=== PATIENT | male | born 1965 | race Caucasian/White ===

== ENCOUNTER 2017-05-21 15:21 | Inpatient (IN) | payer OTHER ==
[~2017-05-21] VITALS: Ht 172.7 cm; Wt 197.2 kg
[~2017-05-21 15:21] MED LIST: CRESTOR40 MG PO; GLUCOPHAGE500 MG PO; HUMALOG100 UNITS/ SUB-Q; HYDROCODON-ACE1 EAC8 PO; HYZAAR 100-251 EACH PO; LANTUS100 UNITS/ SUB-Q; METOPROLOL SUC100 MG PO; NORCO 5-325 TA1 EACH PO; PROZAC20 MG PO; SYNTHROID200 MCG PO; VITAMIN D50000 UNI1 PO
--- NOTE | 2017-05-21 18:10 | NUR ---
PT ARRIVED TO MED/SURG FLOOR ALERT AND ORIENTED. PT AMBULATE FROM [facility] BED. FAMILY WITH PT
--- NOTE | 2017-05-21 18:50 | NUR ---
NEW ADMIT FROM ED. LASHAUN'S PATIENT. LARGE ABSCESS IN LEFT GROIN AREA. LOTS OF REDNESS. HAVEN'T OUTLINED YET. SBA/1PA TO BATHROOM. OBESE. SURGERY IN AM. NPO AT MIDNIGHT. FSBS 594 TONIGHT. ROOM AIR. LOW GRADE TEMP. 20G RIGHT CHEST IV. DIFFICULT POKE. FSBS ACHS.
--- NOTE | 2017-05-21 21:30 | NUR ---
CALL DR. CYR TO NOTIFY CURRENT CBG 528. PER DR. CYR START SLIDING SCALE ORDERS NOW.
--- NOTE | 2017-05-21 22:45 | NUR ---
BARIATRIC BED DELEVERED TO FLOOR. PT UP TO THE CHAIR WITH STANDBY ASSIST. NEW BED IN PLACE AND TUTORIAL GIVEN TO RN AND PLUMBING ASSEMBLER. PT CPAP SET UP PER PT REQUEST. PT REQUESTS TO REMAIN UP IN CHAIR, ADVISED TO CALL WHEN READY TO GO TO BED. CALL WITHIN REACH.
--- NOTE | 2017-05-22 00:23 | NUR ---
IN TO REASSESS PT'S PAIN, PT SLEEPING, CPAP IN PLACE, IVF INFUSING, CALL LIGHT WITHIN REACH.
--- NOTE | 2017-05-22 00:41 | NUR ---
BED BATH DONE. CHANGED LINEN, BARIATRIC BED.
--- NOTE | 2017-05-22 02:00 | NUR ---
IN TO START IV ABX, VITALS OBTAINED. PT STATES HIS PAIN HAS RESOLVED AND HE HAS BEEN RESTING WELL. NO FURTHER NEEDS AT THIS TIME. CPAP IN USE, CALL LIGHT WITHIN REACH.
--- NOTE | 2017-05-22 05:07 | NUR ---
PT RESTING COMFORTABLE THROUGHOUT THE SHIFT, IV FLUID AND ABX INFUSING. BED BATH GIVEN AND NYSTATIN APPLIED. PT NPO AT 0300 IN PREPERATION FOR SURGERY. AFIBRILE. PT HOME CPAP IN PLACE. ELEVATED CBG'S, SLIDING SCALE INITIATED PER DR. CYR. PT UP WITH STANDBY ASSIST.
--- NOTE | 2017-05-22 06:44 | NUR ---
IN TO OBTAIN FOR I&D, PT STATES HE DOES NOT RECALL REVIEWING THE CONSENT FORM WITH DR. WILKS. PT C/O OF DOLAN IN THE L SIDE OF HIS HEAD. PER DR. WILKS PT IS OKAY TO HAVE APAP WITH A SIP OF H2O. DR. WILKS IN TO REVIEW CONSENT FORM WITH PT.
--- NOTE | 2017-05-22 07:25 | NUR ---
REPORT RECEIVED AT BEDSIDE FROM RACHANA/FELA RN. PT AWAKE AND ALERT SITTING UP IN BED. PT REPORTS NOT FEELING WELL, "FEVERISH". AFEBRILE OVERNIGHT. PT NPO FOR PROCEDURE TODAY.
--- NOTE | 2017-05-22 07:50 | EKG ---
[facility] [address] [facility] [place] [address] Signed Normal sinus rhythm Left axis deviation Cannot rule out Anterior infarct , age undetermined Abnormal ECG No previous ECGs available Confirmed by HAM CYR MD ([id number]) on 05/22/2017 7:50:38 AM Electronically Signed By: HAM CYR MD 05/22/17 0750 PATIENT NAME: AMANDALUCY Electrocardiogram DATE OF : 63 PHYSICIAN: HAM CYR MD REPORT #: [id number] REPORT IS CONFIDENTIAL AND NOT TO BE RELEASED WITHOUT AUTHORIZATION
--- NOTE | 2017-05-22 09:20 | NUR ---
HIBBA CLEANS DONE. RAHUL CARE DONE. PATIENT BRUSHED TEETH AND WASHED FACE AND HANDS. PATIENT SITTING UP IN BED WITH BY HIS SIDE. PATIENT HAS NO OTHER NEEDS AT THIS TIME.
[2017-05-22] MEDS ORDERED: VITAMIN B-121000 MC2 SL (09:28)
--- NOTE | 2017-05-22 09:29 | NUR ---
MED REC COMPLETE--PER PATIENT
--- NOTE | 2017-05-22 09:43 | NUR ---
PATIENT UP TO BATHROOM. LINENS CHANGED. PATIENT BACK IN BED. NO NEEDS AT THIS TIME.
--- NOTE | 2017-05-22 10:48 | NUR ---
PT OFF FLOOR FOR SURGERY AT 1040
--- NOTE | 2017-05-22 12:07 | NUR ---
[facility], O2 DECREASED TO 10L.
--- NOTE | 2017-05-22 12:10 | NUR ---
RIGHT UPPER CHEST IV CDI ON ARRIVAL TO PACU.
--- NOTE | 2017-05-22 12:31 | NUR ---
IV REMAINS CDI.
--- NOTE | 2017-05-22 12:53 | NUR ---
PT BACK TO ROOM 113 WITH CELIA RN AT 1245. AT BEDSIDE. VSS. PAIN REPORTED BY PT UNDER PANNUS. WILL LOOK FOR NEW MED ORDERS FROM PAPER CHART.
--- NOTE | 2017-05-22 15:19 | NUR ---
CHANGED WOUND DRESSING PER WOUND CARE INSTRUCTIONS IN CHART. PT TOLERATED WELL.
--- NOTE | 2017-05-22 17:47 | NUR ---
PATIENT SITTIN UP IN BED WATCHIN TV WITH CALL BUTTON IN REACH. COMPLAINS ABOUT HIS RASH SEEMS TO BE GROWING. TRAIN CONDUCTOR LET RN KNOW.
--- NOTE | 2017-05-22 20:00 | NUR ---
IN TO SEE PT, PT IN BED WATCHING TV. PT RATES HIS PAIN A 5-7/10 OF PAIN WITH APAP, FRESH WATER GIVEN, NO FURTHER NEEDS AT THIS TIME. CALL LIGHT IN PLACE.
--- NOTE | 2017-05-22 20:15 | NUR ---
CALL TO DR. WILKS FOR CONCERN OF PAIN. PER DR. WILKS OKAY TO START PERCOCET 5/325 MG, 1-2 TABS PO EVERY 4-6 HOURS FOR PAIN.
--- NOTE | 2017-05-22 22:15 | NUR ---
IN ROOM FOR DRESSING CHANGE, DRESSING AND PACKING REMOVED. NO DISCHARGE PRESENT OR ODOR PRESENT, WOUND BED INTACT. WOUND PACKED WITH CURLEX SOAK IN DAKINS SOLUTION. WOUND COVERED WITH DRSG AND LIGHT TAPE. PT TOLERATED WELL, NO PAIN, PT ABLE TO ASSIST WITH DRSG CHANGE. NO FURTHER NEEDS AT THIS TIME, CALL LIGHT WITHIN REACH.
--- NOTE | 2017-05-22 22:47 | NUR ---
IN TO CHECK ON PT, PT RESTING WATCHING TV, CPAP ON, NO FURTHER NEEDS AT THIS TIME. CALL LIGHT WITHIN REACH.
--- NOTE | 2017-05-23 00:38 | NUR ---
IN TO CHECK ON PT, PT APPEARS TO BE SLEEPING, CPAP IN PLACE, IV INFUSING. CALL LIGHT WITHIN REACH.
--- NOTE | 2017-05-23 02:09 | NUR ---
IN TO SEE PT, IV ABX STARTED, PT RATES HIS PAIN A 4/10 AND REQUEST PAIN MEDICATION. PERCOCET GIVEN. FRESH WATER GIVE. CPAP IN PLACE. NO FURTHER NEEDS AT THIS TIME. CALL LIGHT WITHIN REACH.
--- NOTE | 2017-05-23 02:40 | NUR ---
DR. CYR NOTIFIED OF UO OF 300 OVER THE PAST [address] CYR INCREASE IVF TO 125 MLS PER HR. IN TO INCREASE IVF, PT HAS CPAP IN PLACE. PT RESTING. CALL LIGHT WITHIN REACH.
--- NOTE | 2017-05-23 04:52 | NUR ---
PT S/P I&D L MONS PUBIS ABCESS. PT STARTED ON PERCOCET 5/325 MG FOR INCREASED PAIN. PAIN RESOLVES WELL WITH ORAL MEDICATION. DSG CHANGE DONE, WOUND WNL. PT WITH DECREASED UO, IVF INCREASED TO 125 MLS. IV ABX ADMINISTERED. PT UP TO BATHRROM WITH STANDBY ASSIST.AM LABS TO BE DRAWN.
--- NOTE | 2017-05-23 07:45 | NUR ---
patient sitting up in bed finished breakfast. washing face and hands. patient will get up to shower,shave, and brush teeth once his gets here. no other needs at this time. call button in reach.
--- NOTE | 2017-05-23 09:10 | NUR ---
PATIENT UP TO SHOWER. LINENES CHANGED. ASSISTED WITH PERICARE. PATIENT SITTING UP IN BED WATCHING TV. FRESH ICE WATER GIVEN. ORDERED LUNCH. NO OTHER NEEDS AT THIS TIME. CALL BUTTON IN REACH.
--- NOTE | 2017-05-23 10:00 | NUR ---
PATIENT UP TO SHOWER, NEEDING 1-2 PERSON ASSIST, WITH WASHING PANNUS AND OTHER LOWER BODY PARTS. RINSED WOUND AREA WITH SOAP AND WATER. PATIENT STATES " IT'S NOT RED AND DOESN'T BOTHER ME MUCH" REDNESS HAS REGRESSED, AND IS WARM TO TOUCH. PROVIDED PATIENT WITH EDUCATION ON WOUND CARE. PACKING FROM WOUND APPEARED SEROSANGUINOUS, NO FOUL ODORS. WOUND BASE APPEARED TO HAVE SOME ESCHAR, AND GRANULATION TISSUE.
--- NOTE | 2017-05-23 11:07 | CONS ---
[facility] [address] [place], [place] [address] Signed DATE OF SERVIVE: 05/21/2017 REFERRING PHYSICIAN: Santana Brody MD CHIEF COMPLAINT: Draining abscess, left mons pubis. HISTORY OF PRESENT ILLNESS: Lucy is a 52-year-old, obese, diabetic gentleman who I have met before. He went through a gastric sleeve procedure with Dr. Jesus Perez at [facility] about 4 years ago. He has lost over 100 pounds. He is hoping to be converted over to a Marina-en-Y gastric bypass. I helped him with a colonoscopy in 2016 . He says in the last 4 or 5 days, he has noticed odor and discharge from underneath the left side of his pannus. He went to his primary care provider earlier today. Dr. Bella called me in the office earlier in the afternoon. We asked that Lucy come over to the emergency room to be evaluated initially for labs, IV fluids, and so forth. I have finished the clinic, so I am now over in the emergency room to see Lucy. He seems to be doing well and he is hemodynamically stable, and he is just now getting his IV. ALLERGIES: Codeine. MEDICATIONS: Crestor 40 mg p.o. daily. Fluoxetine 20 mg p.o. daily. Humalog 3 times a day, generally 14 units before meals. Hyzaar 100/25 1 tablet p.o. daily. Lantus 100 units per milliliter once a day, usually 70 units at bedtime. Metformin ER 500 mg 2 tablets p.o. daily. Metoprolol 100 mg p.o. b.i.d. Synthroid 200 mcg p.o. daily. Vitamin D 50,000 units p.o. once a week. PAST MEDICAL HISTORY: Hypertension, obstructive sleep apnea with CPAP mask, nephrolithiasis, hyperlipidemia, vitamin D deficiency, morbid obesity, hypothyroidism, right lobe thyroid neoplasm/papillary adenocarcinoma, type 2 diabetes, arthritis, left rotator cuff tendon tear, depression and anxiety. PROCEDURAL HISTORY: He had his redundant mons pubis removed in [address] [facility]. He had a gastric sleeve performed in [address] [facility] by Dr. Jesus Perez. He had a small bowel resection during an attempted gastric bypass in [address] Armando Braden in [place], [place]. He had a total thyroidectomy [place] [address] Lechuga. He had a colonoscopy in [address] Wilks. Electronically Signed By: CELSO WILKS MD 05/23/17 1107 PATIENT NAME: LUCY PATEL CONSULTATION DATE OF : 63 PHYSICIAN: CELSO WILKS MD REPORT #: [id number] REPORT IS CONFIDENTIAL AND NOT TO BE RELEASED WITHOUT AUTHORIZATION [address] [address] Signed SOCIAL HISTORY: He has a couple of cups of coffee a day. He quit smoking over 30 years ago. He does not chew tobacco. He does not use alcohol. He does not use drugs. 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 He said he has a contract with the [facility]. He is and has 5 children of his own and 3 adopted children. PROVIDERS: His primary care provider is Dr. Moe Bella. Dr. Jesus Perez, his gastric surgeon at [facility] has since retired. He went to see a casino games dealer at [facility] at age 48 and said everything was fine. FAMILY HISTORY: Dr. Perez described he did very well with his anesthesia for his gastric sleeve procedure. His paternal grandfather had heart disease and maternal grandfather had colon cancer in his 50s. REVIEW OF SYSTEMS: He had 10 systems reviewed, and he said he has done great since I have seen him last week. He is wanting to go for his gastric bypass surgery to help lose additional weight. Although he had the mons pubis surgically excised, he still has an enormous pannus that comes snf down his thighs. PHYSICAL EXAMINATION: VITAL SIGNS: His blood pressure is 139/75, heart rate 77, respiratory rate 18, temperature 99.3. He is 5 feet 8 inches at 197 kg. GENERAL: Lucy is a 52-year-old gentleman lying supine in his ER bed. He is always pleasant and cooperative. He is a good historian. LUNGS: Clear to auscultation. HEART: Regular in rhythm. ABDOMEN: Obese. He has a large pannus with erythematous changes across the entire pannus consistent with fungal infection. With help of the nurse, we can see that on the left mons pubis he has a punctate area draining pus with surrounding induration probably 7-10 cm. LABS: Pending EKG showed normal sinus rhythm. Radiographic studies: None. Electronically Signed By: CELSO WILKS MD 05/23/17 1107 PATIENT NAME: LUCY PATEL CONSULTATION DATE OF : 63 PHYSICIAN: CELSO WILKS MD REPORT #: [id number] REPORT IS CONFIDENTIAL AND NOT TO BE RELEASED WITHOUT AUTHORIZATION [address] [address] Signed ASSESSMENT AND PLAN: Lucy is a 52-year-old, morbidly obese, diabetic gentleman who clearly has fungal infection all the way across underneath his pannus, but he has developed a draining pus over the left mons pubis area. I explained to Lucy we are going to need to admit him to the hospital at least for a few days to get this under control, and we will use IV, start to get him hydrated before we take him to surgery for general anesthesia, so we can incise and drain this area. Of course, we will take our cultures and we will adjust our antibiotics accordingly. In the meantime, we will have our Internal Medicine Service see him as well to help with his medical issues, particularly his diabetes. He has expressed understanding and agrees with the above plan. MD TIM Huddleston/Modl /[id number] cc: Patient Chart Dr. Celso Peace MD Electronically Signed By: CELSO WILKS MD 05/23/17 1107 PATIENT NAME: LUCY PATEL CONSULTATION DATE OF : 63 PHYSICIAN: CELSO WILKS MD REPORT #: [id number] REPORT IS CONFIDENTIAL AND NOT TO BE RELEASED WITHOUT AUTHORIZATION
--- NOTE | 2017-05-23 11:54 | NUR ---
DR. WILKS ROUNDED ON PATIENT. DISCHARGE ORDERS WRITTEN.
[2017-05-23] MEDS ORDERED: CLEOCIN HCL150 MG PO (12:21)
[2017-05-23] MEDS ORDERED: NYSTATIN1 EAC9 MISC (12:22)
[2017-05-23] MEDS ORDERED: PERCOCET 5-3251 EACH PO (12:25)
--- NOTE | 2017-05-23 14:36 | NUR ---
PATIENT PROVIDED WITH DISCHARGE INSTRUCTIONS, ANSWERED QUESTIONS AND PROVIDED INSTRUCTION. SUPPLIES PROVIDED FOR DRESSING CHANGES UNTIL FOLLOW UP. PATIENT HOME WITH NYSTATIN GEL AND POWDER AND REMAINING DANKINS SOLUTION. IN ROOM DISCUSSED WOUND CARE WITH HER, AND PROVIDED WOUND CARE INSTRUCTIONS. VS STABLE. DRESSING TO LOWER PANNUS C/D/I.
--- NOTE | 2017-06-01 12:08 | DS ---
[facility] [address] [facility] [place], [place] [address] Signed ADMIT DATE: 05/21/2017 DISCHARGE DATE: 05/23/2017 FINAL DIAGNOSES: Left mons pubis, cutaneous abscess. Tenia corpus involving the pannus, both groins, mons pubis, and inner thighs. Uncontrolled diabetes. Uncontrolled hypothyroidism. PROCEDURE: Incision and drainage, left mons pubis abscess. HISTORY OF PRESENT ILLNESS: Gerard is a 52-year-old, morbidly obese gentleman, who has undergone a previous gastric sleeve resection. He has actually lost 100 pounds. He describes huge lipoma involvin g the mons pubis, which was removed at the time of his gastric sleeve surgery. He said that actually helped him quite a bit as well. Nevertheless, he still has a very large abdominal pannus that comes down senior living to his knees. He suffers with significant tinea corporis across the pannus underneath mons pubis and between the thighs. He then developed a foul-smelling discharge from underneath the pannus on the left side. He went to his primary care provider for evaluation. I had been called as a general neeta geon on-call that day. We had him go straight to the emergency room. HOSPITAL COURSE: I met Gerard in the emergency room, and he had a small abscess of the left mons pubis. He also has significant tinea corpus. Also, we found that his hemoglobin A1c is elevat ed at 14.8 and his TSH is also quite high at 24. He also has some renal dysfunction. He is a little anemic as well. His potassium ran low. We have been correcting that as well. We hydrated him overnight and had our Internal Medicine Service see him to get his blood sugars under better control. The following day, we took him down to the operating room for incision and drainage of the abscess of the left mons pubis. Fortunately, it was small, was just underneath the skin, maybe 1 cm deep and about a centimet er or two in length. We using elliptical incisions so that wound remained open and healing by secondary intention. By the following morning, he looked and felt much better. His white count came down from 15 to 7.7, and he is eating, tolerating his diet qu ite nicely. Of course, wound cultures are still pending. We had given clindamycin IV along with Bactrim p.o. At this point, he is doing much better. We are going to plan on discharging him home today. DISCHARGE PLANS AND MEDICATIONS: Electronically Signed By: CELSO VILLARREAL MD 06/01/17 1208 PATIENT NAME: GERARD PATEL ALYSA DISCHARGE SUMMARY DATE OF : 63 PHYSICIAN: CELSO VILLARREAL MD REPORT #: [id number] REPORT IS CONFIDENTIAL AND NOT TO BE RELEASED WITHOUT AUTHORIZATION [address] [address] Signed Gerard, we discharged ho me with clindamycin 450 mg p.o. q.i.d. for 7 days. He is written for Nystatin powder 1000 units/g to be applied to his affected skin b.i.d. We will dispense 60 g with 2 refills. We will also give him Percocet 5/325 1 to 2 tablets p.o. q.4 to 6 hours p.r.n . pain. We will dispense 60 tablets with no refills. We had tried simple Tylenol here in the hospital. This was not enough to control his pain. In addition, he will resume his chronic medications at home. I will see him back in my office in about 7 to 10 d a ys for followup. In the meantime, he needs to follow up with his primary care provider in the next 1 to 3 weeks for better control of his medical issues particularly diabetes and hypothyroidism. In the meantime, we will discontinue the packing in the woun d and we will simply have him wash with soap and water directly into the wound and underneath the pannus twice a day. He can apply the nystatin powder across the pannus underneath the pannus over the mons pubis and between the legs twice a day and then use a pillow case or towel underneath the pannus right across his wound on the mons pubis as well. That wound will then heal by secondary intention. I have reviewed this with Gerard in detail. He has expressed understanding and agrees above plan. MD TIM Huddleston/Modl /[id number] cc: Dr. Moe Villarreal MD Electronically Signed By: CELSO VILLARREAL MD 06/01/17 1208 PATIENT NAME: GERARD PATEL DISCHARGE SUMMARY DATE OF : 63 PHYSICIAN: CELSO VILLARREAL MD REPORT #: [id number] REPORT IS CONFIDENTIAL AND NOT TO BE RELEASED WITHOUT AUTHORIZATION
--- NOTE | 2017-06-01 12:08 | OR ---
[facility] [address] [place], [place] [address] Signed DATE OF SERVICE: 05/22/2017 PREOPERATIVE DIAGNOSES: Left mons pubis abscess. Morbid obesity. POSTOPERATIVE DIAGNOSES: Left mons pubis abscess. Morbid obesity. PROCEDURE PERFORMED: Incision and drainage of left mons pubis abscess. Wound cultures. ESTIMATED BLOOD LOSS: Minimal. INDICATIONS: Gerard is a 52-year-old gentleman, who is morbidly obese. He has actually undergone a gastric sleeve procedure and has lost about 100 pounds. He was hoping to get converted over to a gastric Marina-en-Y bypass to help lose some additional weight and then undergo a panniculectomy. In the mean time, he had something removed from his mons pubis and there is quite a bit of scar in the right side of that area. More recently, he had drainage from his left mons pubis over 3 to 4 days. He ended up going t o his primary care provider. Given his comorbidities, we asked that he go to the emergency room to be evaluated. I had actually met up with Gerard yesterday in the emergency room. His blood work was drawn and IV was started along with his antibiotics. We a d mitted him to the floor with the help of our Internal Medicine Service. He has been hydrated overnight and our plan was taken to surgery today for incision and drainage. I met with Gerard last night in the ER as well as this morning. We reviewed the idea o f an incision and drainage procedure. The skin will be left open with some packing. He will be in the hospital at least a day or 2 until we feel we have this under better control. In the meantime, he also has fungal infection over his entire pannus and so w e have added some nystatin ointment as well. Gerard understands there is risk of surgery, including but not limited to bleeding, infection, scarring, change in contour of the skin as well as recurrent abscesses in the same or other locations. He is also at high risk from his morbid obesity and diabetes. He has expressed understanding and wishes to proceed. DESCRIPTION OF PROCEDURE: Gerard was taken into the operating room and placed in the supine position under a general LMA anesthesia. He was already on preop erative antibiotics along with subcutaneous heparin. SCDs were utilized. Appropriate padding and monitoring were Electronically Signed By: CELSO WILKS MD 06/01/17 1208 PATIENT NAME: GERARD PATEL OPERATIVE REPORT DATE OF : 63 PHYSICIAN: CELSO WILKS MD REPORT #: [id number] REPORT IS CONFIDENTIAL AND NOT TO BE RELEASED WITHOUT AUTHORIZATION [facility] [address] [place], [place] [address] Signed placed. He was then prepped and draped in the usual sterile fashion. We could easily see the abscess on the left mons pubis with pus coming ou t through the skin. A transverse elliptical incision was made around that area about 2.5 to 3 cm in length. Underneath, we took our cultures. We evacuated the pus. We found that fortunately his abscess was not too deep, maybe a cm deep, and it traveled cep h alad maybe a cm or 2 at most. We cleaned out all the granulation tissue and necrotic debris with the help of our cautery. Local anesthetic was then copiously injected in and around the wound. The wound was packed with Dakin's soaked gauze and covered with a dry ABD. Gerard was then moved over to his hospital bed. Wean from his anesthesia, extubated in the OR, and taken to recovery room in stable condition. MD TIM Huddleston/Modl /[id number] cc: MD Dr. Poncho Huddleston Electronically Signed By: CELSO WILKS MD 06/01/17 1208 PATIENT NAME: GERARD PATEL OPERATIVE REPORT DATE OF : 63 PHYSICIAN: CELSO WILKS MD REPORT #: [id number] REPORT IS CONFIDENTIAL AND NOT TO BE RELEASED WITHOUT AUTHORIZATION
== END 2017-05-23 14:05 | disposition home or self-care (01) | DRG 581 ==
LOC: ED 15:21 → MS 17:58
PROVIDERS: ADMIT Colon & Rectal Surgery
PROC: 0J9C0ZZ Drainage of Pelvic Region Subcutaneous Tissue and Fascia, Open Approach (ICD-10-PCS; principal; 2017-05-21)
DX: L02.211 Cutaneous abscess of abdominal wall (principal); E11.628 Type 2 diabetes mellitus with other skin complications; Z79.4 Long term (current) use of insulin; I10 Essential (primary) hypertension; E78.5 Hyperlipidemia, unspecified; Z98.84 Bariatric surgery status; G47.33 Obstructive sleep apnea (adult) (pediatric); E11.65 Type 2 diabetes mellitus with hyperglycemia; F41.8 Other specified anxiety disorders; B37.9 Candidiasis, unspecified; M19.90 Unspecified osteoarthritis, unspecified site; E55.9 Vitamin D deficiency, unspecified; E66.01 Morbid (severe) obesity due to excess calories
CPT/HCPCS: 00400; 36415; 80048; 80053; 83036; 83735; 84100; 84443; 85025; 87070; 87075; 87077; 87186; 87205; 93005; 93010; 99285; J0330; J1644; J1885; J2250; J2405; J2704; J2765; J3010; J3480; J3490; J7060; J7120

== ENCOUNTER 2017-09-12 07:40 | Day surgery (SDC) | payer OTHER ==
[~2017-09-12] VITALS: Ht 172.7 cm; Wt 197.8 kg
[~2017-09-12 07:40] MED LIST changes: +CLEOCIN HCL150 MG PO; +NYSTATIN1 EAC9 MISC; +PERCOCET 5-3251 EACH PO; +VITAMIN B-121000 MC2 SL
== END 2017-09-12 10:12 | disposition home or self-care (01) ==
LOC: OPS 07:40 → DS 07:40 → OPS 10:12
PROC: 08RJ3JZ Replacement of Right Lens with Synthetic Substitute, Percutaneous Approach (ICD-10-PCS; principal; 2017-09-12)
DX: H25.11 Age-related nuclear cataract, right eye (principal); I10 Essential (primary) hypertension; E11.9 Type 2 diabetes mellitus without complications; E78.00 Pure hypercholesterolemia, unspecified; M10.9 Gout, unspecified; Z98.890 Other specified postprocedural states; Z79.899 Other long term (current) drug therapy; Z88.5 Allergy status to narcotic agent
CPT/HCPCS: 00140; J2250

== ENCOUNTER 2018-03-06 12:35 | Emergency (ER) | payer OTHER ==
[~2018-03-06] VITALS: Ht 172.7 cm; Wt 199.6 kg
--- OUTSIDE RECORDS SUMMARY | ~2018-03-06 | XMS | Clinical Summary ---
Demographics + + + | Address | [address] | | | [place] [address] | + + + | Home Phone | | + + + | Preferred Language | Unknown | + + + | Marital Status | | + + + | Hindu Affiliation | CHR | + + + [...] | + + + + + | CHRISTINE PATEL | ECON | [address] | | | | | [place], [place] | | | | | [address] | | + + + + + Care Team Providers + +------+ + | Care Radio Engineering Teacher Name | Role | Phone | + +------+ + | Moe Bella MD | PP | | + +------+ + Source Comments SONJA is fully live on both EpicCare Ambulatory and EpicCare InPatient.[facility] Allergies + + + + + + | Active Allergy | Reactions | Severity | Noted | Comments | | | | | Date | | + + + + + + | Codeine | Rash | High | 04/24/20 | Rash all over arms | | | | | 12 | | + + + + + + Current Medications + + + +---------+------+------+-------+ | Prescription | Sig. | Disp. | Refills | Star | End | Statu | | | | | | t | Date | s | | | | | | Date | | | + + + +---------+------+------+-------+ | metoprolol | Take 100 mg by mouth | | | | | Activ | | tartrate 100 mg Oral | two times daily. | | | | | e | | Tablet | | | | | | | + + + +---------+------+------+-------+ | | Take by mouth. | | | | | Activ | | LOSARTAN/HYDROCHLORO | | | | | | e | | THIAZIDE (HYZAAR | | | | | | | | ORAL) | | | | | | | + + + +---------+------+------+-------+ | FLUoxetine | Take 20 mg by mouth | | | | | Activ | | (PROZAC) 20 mg Oral | two times daily. | | | | | e | | Capsule | | | | | | | + + + +---------+------+------+-------+ | cloNIDine 0.1 mg | Take 0.1 mg by mouth | | | | | Activ | | Oral Tablet | two times daily. | | | | | e | + + + +---------+------+------+-------+ | Aspirin 81 mg Oral | Take 81 mg by mouth | | | | | Activ | | Tablet [...] | | 13 | | | | Cholelithiasis | weeks after surgery. | | | | | | | Prevention | Indications: | | | | | [...] | | | | | | | Hypocalcemia | | | | | [...] cyanocobalamin | Inject 1,000 mcg | | | | | Activ | | 1,000 mcg/mL | into the muscle (IM) | | | | | e | | Injection | every thirty days. | | | | | | | SolutionIndications: | Indications: | | | | | | | Prevention of | Prevention of | | | | | | | Vitamin B12 | Vitamin B12 | | | | | | | Deficiency | Deficiency | | | | | [...] | 0/20 | | e | | Vitamin Deficiency | Indications: VITAMIN | | | 13 [...] Take 300 mg by mouth | | | 12/06 | | Activ | | oral capsule | three times daily. | | | 11/24 | | e | | | | | | 17 | | | + + + +---------+------+------+-------+ | nystatin 100,000 | Apply to affected | 56.7 g | 3 | 01/03 | | Activ | | unit/gram topical | area two times | | | 0 | | e | | powderIndications: | [...] | + + + | Morbid obesity (HCC) | 01/30/2017 | + + + | [...] | + + + | Thyroid cancer (HCC) | 08/21/2012 | + + + + + | Overview: Stage1 papillary thyroid cancer. | | Thyroglobulin antibodies | + + + + + | Morbid obesity (HCC) | 06/18/2012 | + + + | Depression | 06/18/2012 | + + + | BMI 60.0-69.9, adult ([facility]) | 06/18/2012 | + + + | Nephrolithiasis | 06/18/2012 | + + + | DM (diabetes mellitus) ([facility]) | 06/18/2012 | + + + | Hypertension | 06/18/2012 | + + + | Hyperlipidemia | 06/18/2012 | + + + | Panniculitis | 06/18/2012 | + + + | Edema | 06/18/2012 | + + + | Sleep apnea | | + + + + + | Overview: on CPAP | + + Family History + + +------+ + | [...] + +---------+ + | Alcohol Use | Drinks/We | oz/Week | Comments | | | ek | | | + + +---------+ + | Yes | 0 | 0.0 | very rare | | | Standard | | | | | drinks or | | | | | | | | | | equivalen | | | | | t | | | + + +---------+ + + + + | Sex Assigned at | Date Recorded | | | | + + + | Not on file | | + + + Last Filed Vital Signs + + + + | Vital Sign | Reading | Time Taken | + + + + | Blood Pressure | 157/91 | 01/30/2017 1:15 PM PDT | + + + + | Pulse | 114 | 01/30/2017 1:15 PM PDT | + + + + | Temperature | 37.3 C (99.2 F) | 01/30/2017 1:15 PM PDT | + + + + | Respiratory Rate | 16 | 01/30/2017 1:15 PM PDT | + + + + | Oxygen Saturation | 95% | 01/30/2017 1:15 PM PDT | + + + + | Inhaled Oxygen | - | - | | Concentration | | | + + + + | Weight | 197.3 kg (435 lb) | 01/30/2017 1:15 PM PDT | + + + + | Height | 172.7 cm (5' 8") | 01/30/2017 1:15 PM PDT | + + + + | Body Mass Index | 66.14 | 01/30/2017 1:15 PM PDT | + + + + Plan of Treatment + + + + + | Health Maintenance | Due Date | Last Done | Comments | + + + + + | INFLUENZA VACCINE | | | | | (FLU SHOT) | 8 | | | + + + + + Results Not on filefrom Last 3 Months
--- OUTSIDE RECORDS SUMMARY | ~2018-03-06 | XMS | Clinical Summary ---
Demographics + + + | Address | [address] | | | [place] [address] | + + + | Home Phone | | + + + | Preferred Language | Unknown | + + + | Marital Status | | + + + | Presybeterian Affiliation | 1013 | + + + | Race | Unknown | + + + | Ethnic Group | Unknown | + + + Author + + + | Author | [facility] | | | and [place] | + + + | Organization | [facility] | | | and [place] | + + + | Address | Unknown | + + + | Phone | Unavailable | + + + Support + + + + + | Name | Relationship | Address | Phone | + + + + + | Milady Burns | ECON | [address] | | | | | [place], [place] | | | | | [address] | | + + + + + Care Team Providers + +------+ + | Care Script Manager Name | Role | Phone | + +------+ + | Moe Bella MD | PP | | + +------+ + Allergies + + + +--------+ + | Active Allergy | Reactions | Severity | Noted | Comments | | | | | Date | | + + + +--------+ + | Codeine Sulfate | Itching, Rash | Low | | | + + + +--------+ + Current Medications + + +--------+---------+------+------+-------+ | Prescription | Sig. | Disp. | Refills | Star | End | Statu | | | | | | t | Date | s | | | | | | Date | | | + + +--------+---------+------+------+-------+ | rosuvastatin | Take 40 mg by mouth | | | 07/06 | | Activ | | (CRESTOR) 40 MG | Daily. | | | 4/20 | | e | | tablet | | | | 12 | | | + + +--------+---------+------+------+-------+ | ergocalciferol | Take 50,000 Units by | | | 07/06 | | Activ | | (ERGOCALCIFEROL) | mouth Once a week. | | | 4/20 | | e | | [address] UNITS capsule | | | | 12 | | | + + +--------+---------+------+------+-------+ | Glucose Blood | Use as directed | | | 09/1 | | Activ | | (TOMAS BREEZE 2 | | | | /20 | | e | | TEST) DISK | | | | 12 | | | + + +--------+---------+------+------+-------+ | TOMAS MICROLET | Use as directed | | | 09/1 | | Activ | | LANCETS MISC | | | | 20 | | e | | | | | | 12 | | | + + +--------+---------+------+------+-------+ | | Take 100-25 mg by | | | 1 | | Activ | | losartan-hydrochloro | mouth Daily. | | | 02/22 | | e | | thiazide (HYZAAR) | | | | 12 | | | | 100-25 MG per tablet | | | | | | | + + +--------+---------+------+------+-------+ | metoprolol (TOPROL | Take 200 mg by mouth | | | 07/06 | | Activ | | XL) 200 MG 24 hr | Daily. | | | 20 | | e | | tablet | | | | 12 | | | + + +--------+---------+------+------+-------+ | FLUoxetine | Take 20 mg by mouth | | | 07/06 | | Activ | | (PROZAC) 20 mg | Daily. | | | 02/22 | | e | | capsule | | | | 12 | | | + + +--------+---------+------+------+-------+ | insulin lispro | Inject under the | | | | | Activ | | (HUMALOG) 100 | skin 3 times daily | | | | | e | | units/mL injection | (before meals). 25 | | | | | | | (vial) | units three times | | | | | | | | daily | | | | | | + + +--------+---------+------+------+-------+ | levothyroxine | Take 200 mcg by | | | | | Activ | | (SYNTHROID, | mouth every morning | | | | | e | | LEVOTHROID) 200 mcg | (before breakfast). | | | | | | | tablet | | | | | | | + + +--------+---------+------+------+-------+ | metFORMIN | Take 1,000 mg by | | | | | Activ | | (GLUMETZA) 1000 MG | mouth daily (with | | | | | e | | 24 hr tablet | breakfast). | | | | | | + + +--------+---------+------+------+-------+ | cyclobenzaprine | Take 1 tablet by | 90 | 3 | 07/2 | | Activ | | (FLEXERIL) 10 mg | mouth every 8 hours | tablet | | 9/20 | | e | | tablet | as needed for Muscle | | | 16 | | | | | spasms. | | | | | | + + +--------+---------+------+------+-------+ | calcium | Take by mouth. | | | 03/2 | | Activ | | citrate-vitamin D3 | | | | 2/20 | | e | | (CITRACAL | | | | 13 | | | | PETITES/VITAMIN D) | | | | | | | | 200-250 mg-unit | | | | | | | | tablet | | | | | | | + + +--------+---------+------+------+-------+ | gabapentin | Take by mouth. | | | 12/06 | | Activ | | (NEURONTIN) 300 mg | | | | 20 | | e | | capsule | | | | 17 | | | + + +--------+---------+------+------+-------+ | Multiple Vitamin | Take by mouth. | | | 04/05 | | Activ | | (MULTIVITAMIN) | | | | 020 | | e | | capsule | | | | 13 | | | + + +--------+---------+------+------+-------+ | polyethylene | Take by mouth. | | | 04/05 | | Activ | | glycol (MIRALAX) | | | | 0/20 | | e | | powder | | | | 13 | | | + + +--------+---------+------+------+-------+ | insulin glargine | Inject under the | | | 04/05 | | Activ | | (LANTUS) 100 | skin. | | | 0/20 | | e | | units/mL injection | | | | 13 | | | | (vial) | | | | | | | + + +--------+---------+------+------+-------+ | Cyanocobalamin | Take 50,000 Units by | | | | | Activ | | (VITAMIN B12 PO) | mouth every 7 days. | | | | | e | + + +--------+---------+------+------+-------+ | aspirin 81 MG | Take 81 mg by mouth | | | | | Activ | | tablet | Daily. | | | | | e | + + +--------+---------+------+------+-------+ | VICTOZA 18 MG/3ML | | | | 08/3 | | Activ | | injection | | | | 1/20 | | e | | | | | | 17 | | | + + +--------+---------+------+------+-------+ | cloNIDine | Take by mouth. | | | | | Activ | | (CATAPRES) 0.1 mg | | | | | | e | | tablet | | | | | | | + + +--------+---------+------+------+-------+ | Pediatric Multiple | Take by mouth. | | | 03/0 | | Activ | | Vit-C-FA (CHILDRENS | | | | 06/24 | | e | | CHEWABLE VITAMINS) | | | | 13 | | | | CHEW | | | | | | | + + +--------+---------+------+------+-------+ Active Problems + + + | Problem | Noted Date | + + + | Pseudoarthrosis of cervical spine, initial encounter (HCC) | 03/16/2017 | + + + | S/P cervical spinal fusion | 07/11/2016 | + + + | BMI 60.0-69.9, adult (HCC) | 05/31/2016 | + + + | [...] 04/04/2016 | + + + | Sleep apnea, obstructive - on CPAP | 04/04/2016 | + + + | THYROID CANCER | 07/21/2011 | + + + | THYROID NODULE | 06/12/2011 | + + + | MORBID OBESITY | | + + + | Hypertension | | + + + | Depression | | + + + | HYPERLIPIDEMIA | | + + + | Hypothyroidism | | + + + | DIABETES MELLITUS, TYPE II, UNCONTROLLED, 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 DEPENDENT | | + + + | Arthritis | | + + + Family History + + +------+ + | Medical History | Relation | Name | Comments | + + +------+ + | Diabetes | Maternal | | | | | Aunt | | | + + +------+ + | Colon cancer | Maternal | | | | | Grandfath | | | | | er | | | + + +------+ + | Arthritis | Mother | | | + + +------+ + | Cancer | Other | | GRANDMOTHER | + + +------+ + | Diabetes | Other | | GRANDMOTHER | + + +------+ + | Heart disease | Other | | GRANDMOTHER | + + +------+ + | Hypertension | Paternal | | | | | Grandfath | | | | | er | | | + + +------+ + + +------+ + + | Relation | Name | Status | Comments | + +------+ + + | Child [...] | Yes | 0 | 0.0 | RARE SOCIAL | | | Standard | | | [...] | Blood Pressure | 157/94 | 08/22/2017 1604 PDT | + + + + | Pulse | 89 | 08/22/20171603 PDT | + + + + | Temperature | 36.5 C (97.7 F) | 06/02/2016 1509 PDT | + + + + | Respiratory Rate | 18 | 09/14/2016 1107 PST | + + + + | Oxygen Saturation | 95% | 06/02/2016 1509 PDT | + + + + | Inhaled Oxygen | - | - | | Concentration | | | + + + + | Weight | 207.1 kg (456 lb 9.2 | 08/22/20171603 PDT | | | oz) | | + + + + | Height | 175.3 cm (5' 9") | 08/22/20171603 PDT | + + + + | Body Mass Index | 67.42 | 08/22/20171603 PDT | + + + + Plan of Treatment + + + + + | Health Maintenance | Due Date | Last Done | Comments | + + + + + | Hepatitis C | | | | | Screening | 4 | | | + + + + + | Diabetic Eye Exam | | | | | (Bi-Annually) | 2 | | | + + + + + | Diabetic Foot Exam | | | | | | 2 | | | + + + + + | Hemoglobin A1c Q3 | | | | | Months | 2 | | | + + + + + | Vaccine: | | | | | Dtap/Tdap/Td (1 - | 3 | | | | Tdap) | | | | + + + + + | Vaccine: | | | | | Pneumococcal 19-64 | 3 | | | | Highest Risk (1 of 3 | | | | | - PCV13) | | | | + + + + + | COLON CANCER | | | | | SCREENING | 4 | | | | (COLONOSCOPY EVERY | | | | | 10 YEARS 50-75) | | | | + + + + + | Vaccine: Influenza | | | | | (Season Ended) | 8 | | | + + + + + Implants + +--------+--------+ +--------+--------+--------+ | Implanted | Type | Area | Manufacture | Device | Expira | Model | | | | | r | | tion | / | | | | | | Identi | Date | Serial | | | | | | fier | | / Lot | + +--------+--------+ +--------+--------+--------+ | Imp Spn Plt Ti Zevo 55mm 3lvl | Generi | N/A: | SOFAMOR | | | [id number] | | - [id number]: Qty: 1 | c | Spine | DANEK - DIV | | | 5 / / | | on 06/01/2016 by Chauncey Lee | | [place] | [employer] | | | | | MD Lily | | zack | - SFDK | | | | + +--------+--------+ +--------+--------+--------+ | Allgrft Grftn Pls 1cc Aseptic | Graft | N/A: | [employer] - | | 02/15/ | [id number] | | - [id number]: Qty: | | Spine | MEDT | | 2018 | | | 1 on 06/01/2016 by Jesus, | | [place] | | | | /[id number] | | Chauncey Bautista MD | | zack | | | | [id number] | | | | | | | | / | + +--------+--------+ +--------+--------+--------+ | Allograft Cervical [id number] | Graft | N/A: | SPINALGRAFT | | 12/08/ | [id number] | | - [id number]: Qty: 1 | | Spine | | | 2019 | | | on 06/01/2016 by Chauncey Lee | | [place] | TECHNOLOGIE | | | /[id number] | | MD Lily | | al | S - SPNL | | | 854 | | | | | | | | /[id number] | | | | | | | | 9527 | + +--------+--------+ +--------+--------+--------+ | Allograft Cervical [id number] | Graft | N/A: | SPINALGRAFT | | 12/08/ | [id number] | | - [id number]: Qty: 1 | | Spine | | | 2019 | | | on 06/01/2016 by Chauncey Lee | | [place] | TECHNOLOGIE | | | /[id number] | | MD Lily | | al | S - SPNL | | | 722 | | | | | | | | /[id number] | | | | | | | | 9527 | + +--------+--------+ +--------+--------+--------+ | Allograft Cervical [id number] | Graft | N/A: | SPINALGRAFT | | | [id number] | | - [id number]: Qty: 1 | | Spine | | | | | | on 06/01/2016 by Chauncey Lee | | [place] | TECHNOLOGIE | | | /[id number] | | MD Lily | | al | S - SPNL | | | 855 | | | | | | | | /[id number] | | | | | | | | 9527 | + +--------+--------+ +--------+--------+--------+ | Screw D-Thrd Slf-Drl 3.5x15mm | Screw | N/A: | SOFAMOR | | | [id number] | | - [id number]: Qty: 5 | | Spine | DANEK - DIV | | | 5 / / | | on 06/01/2016 by Chauncey Lee | Jaci Tran | [employer] | | | | | MD Lily | | zack | - GENESIS | | | | + +--------+--------+ +--------+--------+--------+ | Screw D-Thrd Slf-Drl 4.0x15mm | Screw | N/A: | SOFAMOR | | | [id number] | | - [id number]: Qty: 3 | | Spine | DANEK - DIV | | | 5 / / | | on 06/01/2016 by Chauncey Lee | Jaci Tran | [employer] | | | | | MD Lily | | zack | - SFDK | | | | + +--------+--------+ +--------+--------+--------+ Results Not on filefrom Last 3 Months Insurance +-------+--------+ +------+ + + | Payer | Benefi | Subscriber | Type | Phone | Address | | | t Plan | ID | | | | | | / | | | | | | | Group | | | | | +-------+--------+ +------+ + + | MODA | MODA | xxxxxxxxx | PPO | [phone] [address] [address] | | | [place] | | | [phone] | [place] [address] | | | T[place] PPO | | | | | +-------+--------+ +------+ + + + +--------+ +--------+ + + | Guarantor Name | Accoun | Relation to | Date | Phone | Billing Address | | | t Type | Patient | of | | | | | | | | | | + +--------+ +--------+ + + | LUCY BURNS | Person | Self [birth year] | Work: | [address] | | | zack/Freddy | | [phone] | [phone] | [place] [address] | | | yas | | | [address] Home: | | | | | | | | | | | | | | [phone] | | | | | | | [address] | | + +--------+ +--------+ + +
--- OUTSIDE RECORDS SUMMARY | ~2018-03-06 | XMS | Clinical Summary ---
Demographics + + + | Address | [address] | | | [place] [address] | + + + | Home Phone [...] | CHRISTINE PATEL | ECON | [address] | | | | | [place], [place] | | | | | [address] | | + + + + + Care Team Providers + +------+ + | Care National Facilities Manager Name | Role | Phone | + +------+ + | Moe Bella MD | PP | | + +------+ + Source Comments SONJA is fully live on both EpicCare Ambulatory and EpicCare InPatient.[facility] Allergies + + + + + [...] + + + | BMI 60.0-69.9, adult ([facility]) | 06/18/2012 | + + + | Nephrolithiasis | 06/18/2012 | + + + | DM (diabetes mellitus) ([facility]) | 06/18/2012 | + + + | [...]
--- OUTSIDE RECORDS SUMMARY | ~2018-03-06 | XMS | Clinical Summary ---
Demographics + + + | Address | [address] | | | [place] [address] | + + + | Home Phone | | + + + | Preferred Language | Unknown | + + + | Marital Status | | + + + | Sabianism Affiliation | Unknown | + + + | Race | Unknown | + + + | Ethnic Group | Unknown | + + + Author + + + | Author | [facility] | + + + | Organization | [facility] | + + + | Address | Unknown | + + + | Phone | Unavailable | + + + Support + + + + + | Name | Relationship | Address | Phone | + + + + + | Bob Patel | ECON | [address] | | | | | [place], [place] | | | | | [address] | | + + + + + | Detailed,Message | ECON | Unknown | | + + + + + Care Team Providers + +------+ + | Care Copra Sampler Name | Role | Phone | + +------+ + | Moe Bella MD | PP | | + +------+ + Allergies + + + + + + | Active Allergy | Reactions | Severity | Noted | Comments | | | | | Date | | + + + + + + | Codeine | Rash | Medium | 06/20/20 | | | | | | 16 | | + + + + + + Current Medications + + +-------+---------+------+------+-------+ | Prescription | Sig. | Disp. | Refills | Star | End | Statu | | | | | | t | Date | s | | | | | | Date | | | + + +-------+---------+------+------+-------+ | aspirin 81 MG | Take 81 mg by mouth. | | | | | Activ | | tablet | | | | | | e | + + +-------+---------+------+------+-------+ | Calcium | Take by mouth. | | | 03/2 | | Activ | | Citrate-Vitamin D | | | | 2/20 | | e | | (CITRACAL | | | | 13 | | | | PETITES/VITAMIN D) | | | | | | | | 200-250 MG-UNIT TABS | | | | | | | + + +-------+---------+------+------+-------+ | cloNIDine | Take by mouth. | | | | | Activ | | (CATAPRES) 0.1 MG | | | | | | e | | tablet | | | | | | | + + +-------+---------+------+------+-------+ | cyanocobalamin | Inject into the | | | | | Activ | | 1000 MCG/ML | muscle. | | | | | e | | injection | | | | | | | + + +-------+---------+------+------+-------+ | FLUoxetine | Take by mouth. | | | | | Activ | | (PROZAC) 20 MG | | | | | | e | | capsule | | | | | | | + + +-------+---------+------+------+-------+ | insulin glargine | Inject into the | | | 06/1 | | Activ | | (LANTUS) 100 UNIT/ML | skin. | | | 0/20 | | e | | injection | | | | 13 | | | + + +-------+---------+------+------+-------+ | insulin lispro, | Inject into the | | | 06/1 | | Activ | | human, (HUMALOG) 100 | skin. | | | 0/20 | | e | | UNIT/ML injection | | | | 13 | | | + + +-------+---------+------+------+-------+ | insulin lispro, | Use 2 units for | | | 06/1 | | Activ | | human, (HUMALOG) 100 | 141-200, 4 units for | | | 0/20 | | e | | UNIT/ML injection | 201-250, 6 units | | | 13 | | | | | for 251-300, nj | | | | | | | | your doctor if > | | | | | | | | Indications: TYPE 2 | | | | | | | | DIABETES MELLITUS | | | | | | + + +-------+---------+------+------+-------+ | | Take by mouth. | | | | | Activ | | losartan-hydrochloro | | | | | | e | | thiazide (HYZAAR) | | | | | | | | 100-25 MG per tablet | | | | | | | + + +-------+---------+------+------+-------+ | metFORMIN | Take by mouth. | | | 06/1 | | Activ | | (GLUCOPHAGE-XR) 500 | | | | 0/20 | | e | | MG 24 hr tablet | | | | 13 | | | + + +-------+---------+------+------+-------+ | metoprolol | Take by mouth. | | | | | Activ | | (LOPRESSOR) 100 MG | | | | | | e | | tablet | | | | | | | + + +-------+---------+------+------+-------+ | Multiple Vitamin | Take by mouth. | | | 06 | | Activ | | (MULTIVITAMIN) | | | | 0/20 | | e | | capsule | | | | 13 | | | + + +-------+---------+------+------+-------+ | Pediatric Multiple | Take by mouth. | | | 03/0 | | Activ | | Vit-C-FA (CHILDRENS | | | | 8/20 | | e | | CHEWABLE VITAMINS) | | | | 13 | | | | chewable tablet | | | | | | | + + +-------+---------+------+------+-------+ | polyethylene | Take by mouth. | | | 04/05 | | Activ | | glycol (GLYCOLAX) | | | | 0/20 | | e | | powder | | | | 13 | | | + + +-------+---------+------+------+-------+ | TOMAS MICROLET | Use as directed | | | 07/06 | | Activ | | LANCETS lancets | | | | 02/22 | | e | | | | | | 12 | | | + + +-------+---------+------+------+-------+ | cyclobenzaprine | Take 10 mg by mouth. | | | 05/06 | | Activ | | (FLEXERIL) 10 MG | | | | 07/25 | | e | | tablet | | | | 16 | | | + + +-------+---------+------+------+-------+ | ergocalciferol | Take 50,000 Units by | | | 07/06 | | Activ | | (DRISDOL) [id number] | mouth. | | | 02/22 | | e | | UNITS capsule | | | | 12 | | | + + +-------+---------+------+------+-------+ | Glucose Blood | Use as directed | | | 07/06 | | Activ | | (TOMAS BREEZE 2 | | | | 02/22 | | e | | TEST) DISK | | | | 12 | | | + + +-------+---------+------+------+-------+ | lactulose | Take 30 mLs by | | | 05/06 | | Activ | | (CHRONULAC) 10 | mouth. | | | 07/25 | | e | | GM/15ML solution | | | | 16 | | | + + +-------+---------+------+------+-------+ | levothyroxine | Take 50 mcg by | | | 07/06 | | Activ | | (SYNTHROID) 50 MCG | mouth. | | | 20 | | e | | tablet | | | | 12 | | | + + +-------+---------+------+------+-------+ | levothyroxine | Take 200 mcg by | | | | | Activ | | (SYNTHROID) 200 MCG | mouth. | | | | | e | | tablet | | | | | | | + + +-------+---------+------+------+-------+ | metFORMIN | Take 1,000 mg by | | | | | Activ | | (GLUMETZA) 1000 MG | mouth. | | | | | e | | (MOD) 24 hr tablet | | | | | | | + + +-------+---------+------+------+-------+ | metoprolol (TOPROL | Take 200 mg by | | | 07/06 | | Activ | | XL) 200 MG 24 hr | mouth. | | | 02/22 | | e | | tablet | | | | 12 | | | + + +-------+---------+------+------+-------+ | oxycodone 10 MG | Take 5-20 mg by | | | 07 | | Activ | | tablet | mouth. | | | 07/25 | | e | | | | | | 16 | | | + + +-------+---------+------+------+-------+ | rosuvastatin | Take 40 mg by mouth. | | | 07/06 | | Activ | | (CRESTOR) 40 MG | | | | 02/22 | | e | | tablet | | | | 12 | | | + + +-------+---------+------+------+-------+ Active Problems No known active problems Family History + + +------+ + | Medical History | Relation | Name | Comments | + + +------+ + | Diabetes type II | Maternal | | | | | Aunt | | | + + +------+ + + +------+--------+ + | Relation | Name | Status | Comments | + +------+--------+ + | Maternal Aunt | | | | + +------+--------+ + Social History [...] +---------+ + | Yes | | | rare | + + +---------+ + + + + | Sex Assigned at | Date Recorded | | | | + + + | Not on file | | + + + Last Filed Vital Signs + + + + | Vital Sign | Reading | Time Taken | + + + + | Blood Pressure | 122/86 | 06/20/2016 1:28 PM PDT | + + + + | Pulse | 68 | 06/20/2016 1:28 PM PDT | + + + + | Temperature | - | - | + + + + | Respiratory Rate | - | - | + + + + | Oxygen Saturation | 97% | 06/20/2016 1:28 PM PDT | + + + + | Inhaled Oxygen | - | - | | Concentration | | | + + + + | Weight | 204 kg (449 lb 11.2 | 06/20/2016 1:28 PM PDT | | | oz) | | + + + + | Height | 175.3 cm (5' 9") | 06/20/2016 1:28 PM PDT | + + + + | Body Mass Index | 66.41 | 06/20/2016 1:28 PM PDT | + + + + Plan of Treatment + + + + + | Health Maintenance | Due Date | Last Done | Comments | + + + + + | Vaccine: | | | | | Dtap/Tdap/Td (1 - | 3 | | | | Tdap) | | | | + + + + + | Colon Cancer | | | | | Screening | 4 | | | | (Colonoscopy) | | | | + + + + + | Vaccine: Influenza | | | | | (Season Ended) | 8 | | | + + + + + Results Not on filefrom Last 3 Months Insurance + +--------+ +------+-------+ + | Payer | Benefi | Subscriber | Type | Phone | Address | | | t Plan | ID | | | | | | / | | | | | | | Group | | | | | + +--------+ +------+-------+ + | MEDICAID | [place] | xxxxxxxx | | | [address] | | | N | | | | [place] | | | [place] | | | | [phone] | | | [employer] | | | | | + +--------+ +------+-------+ + + +--------+ +--------+ + + | Guarantor Name | Accoun | Relation to | Date | Phone | Billing Address | | | t Type | Patient | of | | | | | | | | | | + +--------+ +--------+ + + | BOB PATEL | Person | Self | [birth year] Home: | [address] | | | al/Fam | | 1965 | [phone] | [place] | | | yas | | | [phone] | [phone] | + +--------+ +--------+ + +
--- OUTSIDE RECORDS SUMMARY | ~2018-03-06 | XMS | Clinical Summary ---
Demographics + + + | Address | [address] | | | [place] [address] | + + + | Home Phone | | + + + | Preferred Language | Unknown | + + + | Marital Status | | + + + | Episcopalian Affiliation | 1013 | + + + | Race | Unknown | + + + | Ethnic Group | Unknown | + + + Author + + + | Author | [facility] | | | and [place] | + + + | Organization | [facility] | | | and [place] | + + + | Address | Unknown | + + + | Phone | Unavailable | + + + Support + + + + + | Name | Relationship | Address | Phone | + + + + + | Milady Burns | ECON | [address] | | | | | [place], [place] | | | | | [address] | | + + + + + Care Team Providers + +------+ + | Care Supervisor Paper Machine Name | Role | Phone | + [...] | 4/20 | | e | | [id number] UNITS capsule | | | | 12 [...] | N/A: | SOFAMOR | | | [id number] | | - [id number]: Qty: 1 | c | Spine | [...] | MEDTRONIC - | | 02/15/ | [id number] | | - [id number]: Qty: | | Spine | MEDT | | 2018 | | | 1 on 06/01/2016 by Jesus, | | [place] | | | | /[id number] | | Chauncey Bautista MD | | zack | | | | 8-220 | | | | | | | | / | + +--------+--------+ +--------+--------+--------+ | Allograft Cervical [id number] | Graft | N/A: | SPINALGRAFT | | 12/08/ | [id number] | | - [id number]: Qty: 1 | | Spine | | | 2019 | | | on 06/01/2016 by Chauncey Lee | | [place] | TECHNOLOGIE | | | /[id number] | | MD Lily | | al | S - SPNL | | | 854 | | | | | | | | /[address] | | | | | | | | 9527 | + +--------+--------+ +--------+--------+--------+ | Allograft Cervical [id number] | Graft | N/A: | SPINALGRAFT | | 12/08/ | [id number] | | - [id number]: Qty: 1 | | Spine | | | 2019 | | | on 06/01/2016 by Chauncey Lee | | [place] | TECHNOLOGIE | | | /[id number] | | MD Lily | | al | S - SPNL | | | 722 | | | | | | | | /[address] | | | | | | | | 9527 | + +--------+--------+ +--------+--------+--------+ | Allograft Cervical [id number] | Graft | N/A: | SPINALGRAFT | | | [id number] | | - [id number]: Qty: 1 | | Spine | | | | | | on 06/01/2016 by Chauncey Lee | | [place] | TECHNOLOGIE | | | /[id number] | | MD Lily | | al | S - SPNL | | | 855 | | | | | | | | /[address] | | | | | | | | 9527 | + +--------+--------+ +--------+--------+--------+ | Screw D-Thrd Slf-Drl 3.5x15mm | Screw | N/A: | SOFAMOR | | | [id number] | | - [id number]: Qty: 5 | | Spine | DANEK - DIV | | | 5 / / | | on 06/01/2016 by Chauncey Lee | Jaci Tran | MEDJANNETTE | | | | | MD Lily | | zack | - GENESIS | | | | + +--------+--------+ +--------+--------+--------+ | Screw D-Thrd Slf-Drl 4.0x15mm | Screw | N/A: | SOFAMOR | | | [id number] | | - [id number]: Qty: 3 | | Spine | DANEK [...] | PPO | [phone] [address] [address] | | | AFFINI | | | [phone] | [place] [address] | | | TY PPO | | [...] | | zack/Freddy | | 1965 | [phone] | [place] [address] | | | yas | | | [address] Home: | | | | | | | | | | | | | | [phone] | | | | | | | [address] | | + +--------+ +--------+ + +
--- OUTSIDE RECORDS SUMMARY | ~2018-03-06 | XMS | Clinical Summary ---
Demographics + + + | Address | [address] | | | [place] [address] | + + + | Home Phone | | + + + | Preferred Language | Unknown | + + + | Marital Status | | + + + | Sikh Affiliation | Unknown | + + + | Race | Unknown | + + + | Ethnic Group | Unknown | + + + Author + + + | Author | [facility] | + + + | Organization | [facility] | + + + | Address | Unknown | + + + | Phone | Unavailable | + + + Support + + + + + | Name | Relationship | Address | Phone | + + + + + | Bob Patel | ECON | [address] | | | | | [place], [place] | | | | | [address] | | + + + + + | Detailed,Message | ECON | Unknown | | + + + + + Care Team Providers + +------+ + | Care Timber Trimmer Name | Role | Phone | + [...] 07/06 | | Activ | | (DRISDOL) [id number] | mouth. 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
[~2018-03-06 12:35] MED LIST changes: +CRESTOR20 MG PO; -CRESTOR40 MG PO; +GLUCOPHAGE XR500 MG PO; -GLUCOPHAGE500 MG PO; -METOPROLOL SUC100 MG PO; +METOPROLOL TAR100 MG PO; +SYNTHROID100 MCG PO; -SYNTHROID200 MCG PO
[2018-03-06] MEDS ORDERED: VICTOZA 2-0.6 MG/0.1 SUB-Q (12:52)
--- NOTE | 2018-03-06 17:29 | EKG ---
[facility] [address] [facility] [place] [address] Signed Normal sinus rhythm Left anterior fascicular block Anterolateral infarct (cited on or before 21-MAY-2017) Abnormal ECG When compared with ECG of 21-MAY-2017 16:39, Questionable change in initial forces of Anterolateral leads Nonspecific T wave abnormality no longer evident in Inferior leads Confirmed by LUNA DLEAROSA MD ([id number]) on 03/06/2018 5:29:30 PM Electronically Signed By: LUNA DELAROSA MD 03/06/18 1729 PATIENT NAME: LUCY PATEL Electrocardiogram DATE OF : 63 PHYSICIAN: LUNA DELAROSA MD REPORT #: [id number] REPORT IS CONFIDENTIAL AND NOT TO BE RELEASED WITHOUT AUTHORIZATION
== END 2018-03-06 17:34 | disposition short-term general hospital (02) ==
LOC: ED 12:35
DX: I61.9 Nontraumatic intracerebral hemorrhage, unspecified (principal); E11.65 Type 2 diabetes mellitus with hyperglycemia; E66.01 Morbid (severe) obesity due to excess calories; I10 Essential (primary) hypertension; Z88.5 Allergy status to narcotic agent; Z79.899 Other long term (current) drug therapy; Z79.4 Long term (current) use of insulin
CPT/HCPCS: 70450; 70460; 71045; 80053; 81001; 82010; 85025; 85610; 85651; 93005; 93010; 96361; 96374; 96375; 99285; J7030; Q9967

== ENCOUNTER 2018-03-12 12:48 | Inpatient (IN) | payer OTHER ==
[~2018-03-12] VITALS: Ht 172.7 cm; Wt 209.1 kg
[~2018-03-12 12:48] MED LIST changes: +VICTOZA 2-0.6 MG/0.1 SUB-Q
--- NOTE | 2018-03-12 14:35 | NUR ---
ADMISSION NOTE LUCY IS A 53 YEAR OLD MALE THAT REPORTEDLY HAS HAD A STROKE AFFECTING THE R SIDE OF HIS BODY, STATES HE HAD A DOLAN FOR 4 DAYS PRIOR TO COMING TO THE ED. CO FOGGY BRAIN ON THE RIGHT, DIFFICULTY WITH WRITING, R SIDED WEAKNESS. CAME TO THE ED AND WAS TRANSFERRED TO [facility] 03/06/18. HAS BEEN AT [facility]CE. NOW READY FOR REHAB AND WANTED TO COME TO HIS HOME TOWN OF [place] FOR REHAB. HE STATES THEY HAVE BEEN WORKING WITH HIM WITH ST, PT, AND OT REG. THIS WILL CONTINUE WHILE HE IS IN A TRANSITIONAL BED HERE. TALKED TO HIM ABOUT THE EXPECTATIONS OF THE TRANSITIONAL BED. WE TALKED ABOUT HIS GOALS WHILE IN THE TRANSITIONAL CARE WHICH INCLUDE--TO IMPROVE HIS FINE MOTOR SKILLS ON THE R UE. ALSO IMROVE HIS BALANCE. HE STATED HIS GREATEST RISK FOR HARM IS FALLING. HIS PLAN IS TO PARTICIPATE WITH THE DIFFERENT THERAPIES REGULARLY AND DO HIS ACTIVITIES, HE IS PLANNING ON BEING HERE NO LONGER THAN 7 TO 10 DAYS.
--- NOTE | 2018-03-12 15:42 | NUR ---
PT SITTING UP IN RECLINER IN ROOM. NO NEEDS AT THIS TIME. EDUCATED HOW TO CALL MEALS DOWN TO KITCHEN AND HOW SWING BED WORKS.
--- NOTE | 2018-03-12 16:47 | NUR ---
PT SITTING UP IN CHAIR. FAMILY MEMBERS IN ROOM. NO OTHER NEEDS AT THIS TIME.
--- NOTE | 2018-03-12 17:33 | NUR ---
FSBS ACCU CHECK 146 AT 1730. PT INFORMED OF PLAN FOR 1 UNIT SLIDING SCALE NOVOLOG INSULIN. PATIENT REPORTS HE WAS ON A 20 UNIT NOVOLOG WITH MEALS AND BEDTIME AND SLIDING SCALE. DISCUSSED WITH HOSPITALIST. ORDERED PATIENT'S PREVIOUSLY PLANNED INSULIN REGIMEN. ADDED ORDER TO EMAR.
--- NOTE | 2018-03-12 17:37 | NUR ---
NEW PATIENT ARRIVED FROM [facility] FOR SWING BED CARE. PT/OT/ST. RECENT STROKE. MINIMAL DEFICITS. SOME WEAKNESS ON RIGHT SIDE. SBA IN ROOM. ACCU CHECKS ACHS. KEFLEX PO. NYSTATIN FOR PANUS. LACTULOSE DAILY FOR CONSTIPATION. CPAP AT NIGHT. ROOM AIR DURING DAY. DAILY WEIGHTS. NEURO CHECKS DAILY.
--- NOTE | 2018-03-12 18:41 | NUR ---
PATIENT SITTING UP IN CHAIR EATING DINNER. FRESH ICE WATER. CALL LIGHT WITHIN REACH. NO OTHER NEEDS AT THIS TIME.
[2018-03-12] MEDS ORDERED: KEFLEX500 MG PO (18:42)
[2018-03-12] MEDS ORDERED: GABAPENTIN300 MG PO (18:44)
[2018-03-12] MEDS ORDERED: LANTUS100 UNITS/ SUB-Q (18:46)
[2018-03-12] MEDS ORDERED: LEVOTHYROXINE100 MCG PO (18:49)
[2018-03-12] MEDS ORDERED: LACTULOSE10 GM/15 M PO (18:50)
--- NOTE | 2018-03-12 19:15 | NUR ---
BEDSIDE REPORT RECEIVED FROM KARENA FERREIRA, PT AWAKE, SITTING UP IN CHAIR. FAMILY PRESENT IN ROOM. NO IV ACCESS. PT HAS PERSONAL SUPPLIES, CALL LIGHT IN REACH. NO REQUESTS AT THIS TIME.
--- NOTE | 2018-03-12 21:51 | NUR ---
PT ASSESSMENT COMPLETE. PT ALERT AND ORIENTED X 4. WEAKNESS NOTED IN RLE, RUE, NUMBNESS AND TINGLING BLE. RIGHT PUPIL LARGER THAN LEFT, PT STATES VISION INTACT. PUPILS RESPONSIVE TO LIGHT. LUNGS CLEAR THROUGHOUT ALL LOBES, HR REGULAR RHYTHM, SOUNDS DIMINISHED. BOWEL TONES ACTIVE X 4. ABDOMEN SOFT, NONTENDER, REDNESS NOTED ON LOWER ABDOMEN, HOT TO TOUCH. PT LYING IN BED, LEGS ELEVATED 1+ NON-PITTING EDEMA BILATERALLY LOWER EXTREMITIES, PEDAL PULSES STRONG BILATERALLY. 5 UNITS SS INSULIN ADMINISTERED FOR CBG 253. ICE WATER, PERSONAL SUPPLIES IN REACH, CPAP SET UP FOR USE. CALL LIGHT IN REACH.
--- NOTE | 2018-03-12 23:42 | NUR ---
CHECKED ON PT, APPEARS TO BE SLEEPING, HOME CPAP ON, EYES CLOSED. VISIBLE ABD BREATHING. LIGHTS OFF IN ROOM.
--- NOTE | 2018-03-13 03:02 | NUR ---
CHECKED ON PT, HOME CPAP ON, APPEARS TO BE SLEEPING, EYES CLOSED, BREATHING NON-LABORED. LIGHTS OFF IN ROOM.
--- NOTE | 2018-03-13 04:30 | NUR ---
PT APPEARS TO BE SLEEPING, EYES CLOSED, HOME CPAP ON, BREATHING, VISIBLE CHEST RISE. LIGHTS OFF IN ROOM.
--- NOTE | 2018-03-13 05:45 | NUR ---
PT HAS APPEARED TO BE SLEEPING THROUGHOUT SHIFT, USING HOME CPAP MACHINE. RECEIVED 5 UNITS SS INSULIN AT HS CBG 253. CONTINUES TO C/O NUMBNESS IN RIGHT HAND, CHRONIC NUMBNESS AND TINGLING BLE. WEAKNESS NOTED IN RIGHT SIDE. PT ALSO C/O EXPRESSIVE APHASIA. NO IV ACCESS. ON ROOM AIR WA.
--- NOTE | 2018-03-13 06:30 | NUR ---
SCHEDULED MEDICATIONS ADMINISTERED AT THIS TIME, PT UP IN CHAIR, ON ROOM AIR. GIVEN ICE WATER. PT REQUESTED COPY OF SS INSULIN SCALE, PROVIDED TO PT AT THIS TIME. CALL LIGHT IN REACH.
--- NOTE | 2018-03-13 07:26 | NUR ---
BEDSIDE REPORT RECEIVED FROM VICENTE THURSTON. WHITE BOARD UPDATED. PATIENT SITTING UP IN RECLINER. NO NEEDS AT THIS TIME. PATIENT REPORTS SLEEPING ON AND OFF LAST NIGHT. USED CPAP THROUGHOUT NIGHT.
--- NOTE | 2018-03-13 07:39 | NUR ---
PATIENT SITTING UP IN BEDSIDE RECLINER. CALL LIGHT IN REACH. PATIENT WASHED HANDS AND FACE WITH WARM WASH CLOTH. ORAL CARE SET UP IN BATHROOM AT PATIENTS REQUEST. FRESH ICE WATER AT BEDSIDE TABLE. NO OTHER NEEDS AT THIS TIME.
--- NOTE | 2018-03-13 10:09 | NUR ---
PATIENT VISITING WITH SPIRITUAL CARE. THIS CONDUCTOR FREIGHT WILL RETURN FOR VITALS AT ANOTHER TIME.
--- NOTE | 2018-03-13 10:50 | NUR ---
THIS ORIENTAL MEDICINE PRACTITIONER SET UP SHOWER FOR PATIENT. PATIENT SHOWERED INDEPENDENTLY. CALL CORD IN REACH. NO OTHER NEEDS AT THIS TIME.
--- NOTE | 2018-03-13 13:30 | NUR ---
PT TRANSFERRED FROM [facility] ON SWING BED. PT SEEMED PLEASED REGARDING S.B. PROGRAM. DISCUSSED IN LENGTH WITH PT, HE HAS SOLID UNDERSTANDING REGARDING THE CONCEPTS OF SWING BED. COPING WITH CHANGES IN HEALTH FROM STROKE, BEEN A CHALLENGE. PT STATED BEING HOME HAS HELPED HIS MENTAL STATE, AND HAVING FAMILY CLOSE AND NOT STRESSING THEM WITH THE DRIVE HAS BEEN HELPFUL. DISCUSSED WITH PT THE IMPORTANCE OF GIVING HIMSELF PERMISSION TO NOT HAVE TO VISIT ALL THE TIME. WILL TALK WITH KARENA FERREIRA ABOUT POSTING VISITING HRS, AND WORKING THIS OUT WITH PT. ALSO WOULD LIKE TO HAVE E.O. TO READ DAILY-WILL HAVE LILIA ARRANGE THIS. HAD PRAYER WITH PT, WILL FOLLOW NEEDED
--- NOTE | 2018-03-13 14:15 | NUR ---
PATIENT RESTING IN BEDSIDE RECLINER, VISITORS COMING IN AND OUT OF ROOM. CALL LIGHT IN REACH. NO OTHER NEEDS AT THIS TIME.
--- NOTE | 2018-03-13 16:33 | NUR ---
PATIENT SITTING UP IN BEDSIDE RECLINER, SEASONAL DELIVERY DRIVER IN ROOM. CALL LIGHT IN REACH. NO OTHER NEEDS AT THIS TIME.
--- NOTE | 2018-03-13 16:42 | NUR ---
PATIENT SWING BED. PT/OT/ST. REQUESTS NO PERSONAL VISITORS, EXCEPT , UNTIL AFTER 530 IN THE EVENING. ACCU CHECKS ACHS. RIGHT SIDED WEAKNESS-- SLIGHTLY. SBA WITH FWW. EDEMA LE. NO IV. DAILY WEIGHT. DAILY NEURO CHECKS. CPAP WHEN SLEEPING.
--- NOTE | 2018-03-13 17:00 | NUR ---
HOSPITALIST NOTIFIED OF BLOOD SUGARS TODAY. CHANGED INSULIN ORDERS FROM 20 UNITS WITH MEALS OF NOVOLOG TO 15 UNITS WITH MEALS OF NOVOLOG.
--- NOTE | 2018-03-13 17:15 | NUR ---
MED REC COMPLETE. DIFFERENCES FROM HOME MEDS SENT IN MESSAGE TO [facility]AN[facility].
--- NOTE | 2018-03-13 17:30 | NUR ---
ASSUMING PATIENT'S CARE AT THIS TIME. RECEIVED REPORT FROM JHON. PATIENT RESTING IN THE CHAIR, DENIES PAIN. INSULIN ADMINISTERED WITH SECOND CHECK. SITTING IN THE CHAIR EATING DINNER.
--- NOTE | 2018-03-13 18:12 | NUR ---
PATIENT RESTING IN BEDSIDE RECLINER, CALL LIGHT IN REACH. FRESH ICE WATER AT BEDSIDE TABLE. FAMILY/FREINDS IN ROOM VISITING.
--- NOTE | 2018-03-13 19:05 | NUR ---
SHIFT REPORT RECEIVED. PATIENT RESTING IN THE RECLINER. VISITING WITH FAMILY. DENIES ANY NEEDS AT THIS TIME.
--- NOTE | 2018-03-13 22:00 | NUR ---
EVENING MEDS GIVEN PER ORDER. PATIENT RESTING IN RECLINER. NO PAIN. AAOX4. SPEECH IS CLEAR. FACIAL MOVEMENTS ARE SYMMETRICAL. SENIOR ESCROW OFFICER STRENGTH ON RIGHT SIDE IS SLIGHTLY LESS THAN THE LEFT. NUMBNESS IN THE FINGER TIPS OF RIGHT HAND. ABD IS LARGE, SOFT, NONTENDER. APPETITE IS GOOD. REDNESS UNDER PANIS NOTED, PATIENT DENIED NEED FOR NYSTATIN TONIGHT. EDUCATION PROVIDED. HE STATES "I DONT NEED IT UNTIL MORNING". CMS INTACT. NUMBNESS & TINGLING IN ADRIA LOWER EXTREMITIES CHONIC DUE TO NEUROPATHY. PATIENT DENIES FURTHER NEEDS AT THIS TIME. CALL LIGHT IN REACH.
--- NOTE | 2018-03-14 00:15 | NUR ---
PATIENT SLEEPING WITH CPAP ON. RR 18. CALL LIGHT IN REACH.
--- NOTE | 2018-03-14 02:56 | NUR ---
PATIENT REQUESTED HIS BLOOD SUGAR BE CHECKED HE WAS FEELING LOW. BLOOD GLUCOSE FOUND TO BE 68. GRAM CRACKERS AND PEANUT BUTTER PROVIDED. PATIENT IS ALERT AND ORIENTED. REPORTS FEELING FLUSHED, HOT AND DIAPHORETIC. SLOWLY IMPROVING WITH SNACK. WILL CONTINUE TO MONITOR.
--- NOTE | 2018-03-14 03:25 | NUR ---
PATIENT'S BLOOD SUGAR 85 AFTER SOME CRACKERS AND PEANUT BUTTER. PATIENT REPORTS FEELING NO SYMPTOMS. HE REQUEST ANOTHER PACK OF CRACKERS, WHICH WERE GIVEN TO HIM. NO OTHER NEEDS AT THIS TIME.
--- NOTE | 2018-03-14 04:45 | NUR ---
PATIENT IN BED. APPEARS TO BE SLEEPING WITH CPAP IN PLACE. RR 20.
--- NOTE | 2018-03-14 05:22 | NUR ---
PATIENT SLEPT WELL THROGUHOUT THE NIGHT. WOKE FEELING HYPOGYLCEMIC AROUND 0300. BLOOD GLUCOSE WAS 68, SNACK PROVIDED. BLOOD SUGAR 85. CPAP AT NIGHT. INDEPENDENT OR SBA IN ROOM. URINE OUTPUT QS. DAILY WT. RONY CHECKS DAILY; RIGHT SIDE WEAKNESS/NUMBNESS. REFUSED SCHEDULE NYSTATIN LAST NIGHT FOR REDNESS UNDER PANIS. ADA DIET, BLOOD GLUCOSE CHECKS [facility].
--- NOTE | 2018-03-14 06:22 | NUR ---
I&OS DONE AND CHARTED. STANDING WEIGHT DONE AND CHARTED. GARBAGES EMPTIED. BEDSIDE TABLE AND CALL LIGHT WITHIN REACH.
--- NOTE | 2018-03-14 08:04 | NUR ---
DID PATIENT'S BLOOD SUGAR CHECK. ALSO HE SAID HE TOOK A SHOWER YESTERDAY. I WILL ASK AGAIN LATER. HE IS INDEPENDENT.
--- NOTE | 2018-03-14 08:36 | NUR ---
Gave patient written information on diabetes support group, group education classes, and artifical sweeteners per pt request. Will request referral for group education classes from PCP and contact pt prior to start of April class series. Pt denies other questions or concerns.
--- NOTE | 2018-03-14 09:34 | NUR ---
CONSULT RECEIVED FOR DIABETES. KISHA, DIRECTOR DIGITAL COMMUNICATIONS, TALKED TO PATIENT YESTERDAY. HE IS INTERESTED IN DIABETES EDUCATION CLASSES. PATIENT SAYS HE IS DOING FINE WITH OUR MENU. THE FOOD IS GOOD HERE. HE HAD A GASTRIC SLEEVE A FEW YEARS AGO. HE BASICALLY IS EATING A REGULAR (DIABETIC) DIET AND TRYING TO STAY AROUND 35 GRAMS OF CARBS PER MEAL. HE HAS NO QUESTIONS AT THIS TIME. I WILL REMAIN AVAILABLE IF NEEDED.
--- NOTE | 2018-03-14 09:55 | NUR ---
IN TO ROOM TO ASSESS PATIENT. PATIENT DENIES PAIN AND ANY OTHER COMPLAINTS. REPORTED WEAKNESS ON THE RIGHT SIDE. NUMBNESS AND TINGLING IN THE LOWER EXTREMITIES. MORNING MED ADMINISTERED. PATIENT REFUSED MIRALAX. NEURO CHECK DONE. NO CHANGE FROM YESTERDAY. PATIENT REPORTED THAT HE FEEL HE IS MAKING PROGRESS. CALL LIGHT IN REACH. RAILROAD BRAKE REPAIRER IN ROOM TO TALK TO PATIENT. CALL LIGHT IN REACH.
--- NOTE | 2018-03-14 11:36 | NUR ---
PATIENT WAS UP WALKING IN THE LUNDY WAY WITH PHYSICAL THERAPIST. TOLERATED WELL. NO COMPLAINTS.
--- NOTE | 2018-03-14 12:04 | NUR ---
DELIVERED GUIDEPOST TO PT, HE WAS PLEASED. HE IS ALERT, ORIENTED AND SEEMED TO BE WORKING ON HIS LAPTOP. EXTENDED A BLESSING, WILL FOLLOW NEEDED
--- NOTE | 2018-03-14 12:10 | NUR ---
WHILE PATIENT WAS IN PHYSICAL THERAPY I CHANGED HIS SHEETS ON HIS BED. ALSO PUT A CLEAN BLANKET ON HIS CHAIR. HE SAID HE MIGHT SHOWER TODAY.
--- NOTE | 2018-03-14 14:31 | NUR ---
PATIENT UP WALKING WITH PHYSICAL THERAPIST AT THIS TIME.
--- NOTE | 2018-03-14 15:51 | NUR ---
PATIENT WAS FEELING OVER HEATED SO I OFFERED HIM A COOL WASH CLOTH. SAID THE WASH CLOTH HELPED.
--- NOTE | 2018-03-14 16:12 | NUR ---
PATIENT CALLED AND REQUESTED THAT HE NEEDS HIS BLOOD SUGAR TO BE CHECKED. CBG CHECKED AND WAS [address] CYR WAS NOTIFIED ABOUT PATIENT CBG, ORDER TO DECREASED NOVOLOG WITH MEAL TO 10UNITS. CBG WAS CHECKED AGAIN AFTER 15MUNITES AND WAS 57, CRACKERS AND PEANUT BUTTER WAS GIVEN TO PATIENT. WILL CONTINUE TO MONITOR.
--- NOTE | 2018-03-14 17:16 | NUR ---
PATIENT BLOOD GLUCOSE BEFORE MEAL WAS 60. MEAL GIVEN AND TOLD PATIENT THAT WILL RECHECK BLOOD GLUCOSE AFTER MEAL. PATIENT DENIED ANY CONFUSION, NO SWEATS NO BLURRY VISION. WILL CONTINUE TO MONITOR PATIENT.
--- NOTE | 2018-03-14 17:51 | NUR ---
GOALS PER THERAPIES PT GAIT DIST 600 FT WITH SBA/SUPERVISION OT RESTORE COGNITION AND FINE MOTOR SKILLS. OT PT TO COMPLETE COGNITIVE TABLE SHERRI SHAIKH ATTEMPTING AND PRACTICING TO READ ALOUD
--- NOTE | 2018-03-14 18:00 | NUR ---
RECHECKED PATIENT BLOOD GLUCOSE 20 MINUTES AFTER EATING ALL OF HIS MEAL AND IT WAS 64. PATIENT STILL DENIES ANY OF SYMPTOMS OF HYPOGLYCEMIA. PER PROTOCOL CHARGE NURSE JHON AND THIS RN DECIDED TO ADMINISTERED GLUCAGON. PATIENT WAS CONCERNED ABOUT THE GLUCAGON INJECTION AND PATIENT STATED THAT "LAST TIME I HAD THAT SHOT MY SUGAR WENT UP" PATIENT WAS EDUCATED ABOUT THE IMPORTANCE OF TREATING HIS HYPOGLYCEMIA. DNRenée HAYES WAS ON THE FLOOR AND THIS RN AND JHON INFORMED HER ABOUT THE PATIENT CONCERN. DR CYR WAS ALSO NOTIFIED. WILL RECHECK BLOOG GLUCOSE.
--- NOTE | 2018-03-14 18:14 | NUR ---
PATIENT HAD A FAIR DAY. HAD PHYSICAL THERAPY TWICE TODAY. THIS PM PATIENT HAD LOW BLOOD GLUCOSE, HYPOGLYCEMIA PROTOCOL IMPLEMENTED. DR CYR WAS NOTIFIED. PATIENT HAD DINNER AND CBG WAS STILL LOW AT 64. GLUCAGON GIVEN. AND DR CYR WAS NOTIFIED. PATIENT ATE ALL OF HIS MEAL. DAILY WGHT AND NEURO CHECK. MILD RIGHT SIDE WEAKNESS. PATIENT HAD OCCUPATIONAL AND SPEECH THERAPY TODAY. MONITOR CBG.
--- NOTE | 2018-03-14 19:03 | NUR ---
BLOOD GLUCOSE RECHECKED AND IT WAS 153. PATIENT RESTING IN THE CHAIR AT THIS TIME.
--- NOTE | 2018-03-14 19:20 | NUR ---
BEDSIDE REPORT RECIEVED FOR DAY SHIFT RN. PT UP IN CHAIR. REPORTS 5/10 ABD PAIN. REFUSED PAIN MEDICATION OR ANY COMFORT MEASURES. REPORTS NO OTHER NEEDS AT THIS TIME. CALL LIGHT WITHIN REACH.
--- NOTE | 2018-03-14 21:59 | NUR ---
I&OS DONE AND CHARTED. BEDSIDE TABLE AND CALL LIGHT WITHIN REACH.
--- NOTE | 2018-03-14 22:05 | NUR ---
ASSESSMENT COMPLETED. PT LUNGS CLEAR. HERT SOUNDS NORMAL. CALENDER OPERATOR HELPER EQUAL. PULSE +2 ALL 4 EXTREMITIES. DISCOLORATION NOTED ON LE. EDEMA +1 BILAT LE. BOWEL TONES ACTIVE. CALL LIGHT WITHIN REACH.
--- NOTE | 2018-03-15 00:32 | NUR ---
NOTIFIED DR CYR OF BS OF 413. PT TO NOT HAVE ANYTHING TO EAT OVER NIGHT. ORDERS TO REASSESS. IN THE MORNING.
--- NOTE | 2018-03-15 03:23 | NUR ---
PT APPEARS TO BE SLEEPING. BIPAP IN PLACE. CALL LIGHT WITHIN REACH.
--- NOTE | 2018-03-15 05:25 | NUR ---
SWING BED PT. SLEPT THROUGHOUT THE NIGHT. SLIDING SCALE INSULIN. BED TIME BS WAS 374. 9 UNITS NOVOLOG AND 40U LEVEMIR GIVEN. PRN BLOOD SUGAR AT 0030 SHOWED BLOOD SUGAR OF 413. DR CYR NOTIFIED. NO NEW ORDERS. PT REPORTS 5/10 ABDOMINAL PAIN FOR GLUCAGON. REFUSED PAIN MEDICATION. PT IS DAILY WEIGHT. CPAP AT NIGHT. HERE FOR PT/OT/ST. GOAL TO REACH FRONT DOOR. SBA FWW WHEN OUT IN HALLS. PULVI MIXER OPERATOR STRENGTH EQUAL. LUNGS CLEAR.
--- NOTE | 2018-03-15 06:03 | NUR ---
I&os DONE AND CHARTED. GARBAGES EMPTIED. ROOM PICKED UP. BEDSIDE TABLE AND CALL LIGHT WITHIN REACH. HE NEEDS NOTHING ELSE AT THIS TIME.
--- NOTE | 2018-03-15 06:22 | NUR ---
RECHECKED PT BS WAS 301. PT REPORTS HEADACHE PAIN OF 8/10 AND ABDOMINAL PAIN 7/10. PT REFUSED ALL PHARMACOLOGICAL AND NONPHARMACOLOGICAL INTERVENTIONS TO REDUSE PAIN. WHEN ASKED IF THERE WAS ANYTHING I CAN DO OR TELL THE DOCTOR, HE REPLIED, "YES, I'M PISSED." I ASKED,"ABOUT THE BLOOD SUGAR?" HE REPLIED, "YES, AND I WANT TO LEAVE. IF MY BLOOD SUGAR GETS HIGH AGAIN I WILL LEAVE." PT ALSO REPORTED HE IS REFUSING BREAKFAST THIS MORNING DUE TO BLOOD SUGAR BEING TOO HIGH.
--- NOTE | 2018-03-15 07:32 | NUR ---
SHIFT REPORT RECEIVED FROM NAMRATA. PATIENT WAS UP TO BATHROOM AND SHOWER BY SELF. PATIENT EXPRESSED CONCERN ABOUT HIS BLOOD GLUCOSE BEING HIGH AFTER YESTERDAY INTERVENTION TO BRING HIS SUGAR UP. PATIENT WAS EDUCATED ABOUT THE DANGER OF HYPOGLYCEMIA, AND THE IMPORTANCE OF TREATING IT. TALKED TO CATIA DESIGNER BRAYAN ABOUT PATIENT CONCERN AND BRAYAN WENT TO ROOM TO TALK TO PATIENT PATIENT RESTING ON THE CHAIR
--- NOTE | 2018-03-15 12:45 | NUR ---
PATIENT IN CHAIR, EYES CLOSED. CALL LIGHT IN REACH, NO NEEDS AT THIS TIME
--- NOTE | 2018-03-15 14:13 | NUR ---
DROPPED BACK TO CHECK ON PT. SEEMED TO BE DOING BETTER-MORNING WAS ROUGH. LET PT TALK, I THINK TALKING EMOTIONS AND ABOUT HIS FAMILY HELPED. SMILE ON HIS FACE WHEN I LEFT. EXTENDED A BLESSING, WILL FOLLOW NEEDED
--- NOTE | 2018-03-15 14:16 | NUR ---
PATIENT SITTING ON THE CHAIR. REPORT HEADACHE AND DENIES THE NEED TO TAKE ANY MED. PATIENT HAD PHYSICAL THERAPY AND SPEECH THERAPY THIS AM. WILL CONTINUE TO MONITOR. CALL LIGHT IN REACH.
--- NOTE | 2018-03-15 14:47 | NUR ---
SPOKE WITH PATIENT IN ROOM. HE STATES HE HAD A BAD DAY YESTERDAY. STATES PHYSICAL THERAPY "WORKED ME TOO HARD AND MY BLOOD SUGAR CRASHED". STATES HE TRIED TO TELL THE NURSE HE DIDN'T WANT "THE SHOT" BECAUSE HIS BLOOD SUGAR WOULD BE TOO HIGH. STATES THAT HE SPOKE WITH BOAT PULLER TODAY AND HE DOESN'T KNOW WHY "ALL YOUR LITTLE GROUPS DON'T TALK WITH EACH OTHER". IN THE ROOM WITH US WAS CHARGE NURSE MCKINLEY. SHE DISCUSSED THAT WE DID GET REPORT ON HIS BLOOD SUGAR. PATIENT STATED HE "REFUSED PT THIS AFTERNOON". HE DOES FEEL HE IS PROGRESSING. I DISCUSSED IMPORTANCE OF ALL HIS THERAPIES TAKING PLACE, MCKINLEY ASKED IF HE COULD DO AN EXTRA SNACK WITH PT TO KEEP BLOOD SUGAR UP. HE "ISN'T SURE". I ALSO REMINDED HIM HE COULD DISCUSS HYPOGLYCEMIA ORDERS WITH DR CYR. HE STATES HE KNOWS THIS. OTHER THAN THAT, HE THINKS THINGS ARE GOING WELL.
--- NOTE | 2018-03-15 15:28 | NUR ---
PATIENT SITTING IN CHAIR USING CELLPHONE. CALL LIGHT IN REACH, DENIES ANY NEEDS AT THIS TIME.
--- NOTE | 2018-03-15 16:55 | NUR ---
PATIENT CALLED AND REPORTED FEELING HOT AND STATED " I MIGHT BE LOW AGAIN" AND REQUESTED HIS BLOOD SUGAR TO BE CHECKED. CBG CHECKED AND WAS 63, ORANGE JUICE GIVEN AND DINNER WAS ALSO GIVEN. WILL CONTINUE TO MONITOR PATIENT.
--- NOTE | 2018-03-15 17:12 | NUR ---
DID PATIENT BLOOD SUGAR CHECK BREAKFAST, LUNCH AND DINNER.
--- NOTE | 2018-03-15 17:14 | NUR ---
PATIENT HAD A VERY BUSY DAY BETWEEN SPEECH THERAPIST AND OCCUPATIONAL THERAPIST TWICE AND ALSO PHYSICAL THERAPIST.
--- NOTE | 2018-03-15 17:28 | NUR ---
RIGHT NOW HE IS SITTING IN HIS CHAIR WATCHING TV.
--- NOTE | 2018-03-15 17:56 | NUR ---
PATIENT SITTING IN CHAIR, I/OS DONE. SONG DIAS AND KARENA PECK ALSO IN ROOM. CALL LIGHT IN REACH
--- NOTE | 2018-03-15 18:16 | NUR ---
PATIENT HAD A FAIR DAY. HAD PT/OT/ST TODAY. PATIENT HAD NO IV SITE. RIGHT SIDED WEAKNESS THAT IS IMPROVED WITH PT AND OT. NO APPARENT EXPRESSIVE APHASIA. THIS PM PATIENT'S BLOOD GLUCOSE WAS 63,ORANGE JUICE WAS GIVEN WITH DINNER AFTER AN HOUR PATIENT CBG WENT UP TO 131. PATIENT UP TO CHAIR MOST OF THE DAY. U/O Q/S.
--- NOTE | 2018-03-15 20:08 | NUR ---
recieved bedside shift report from day shift rn. pt up on chair at this time. on RA. respirations are equal and nonlabored. pt seems to be in better spirits today. reports no pain at this time. call light within reach.
--- NOTE | 2018-03-16 00:31 | NUR ---
PT APPEARS TO BE SLEEPING WITH HEAD UNDER COVERS. RESPIRATIONS ARE EQUAL AND NONLABORED. CALL LIGHT IS WITHIN REACH.
--- NOTE | 2018-03-16 02:30 | NUR ---
PRN CHECK OF PT BLOOD SUGAR. BLOOD SUGAR WAS 83. CRACKERS GIVEN FOR SNACK BEFORE BREAKFAST. CALL LIGHT WITHIN REACH. REPORTS NO OTHER NEEDS AT THIS TIME.
--- NOTE | 2018-03-16 04:00 | NUR ---
PT APPEARS TO BE SLEEPIN WITH FACE UNDER BLANKETS AND CPAP IN PLACE. CALL LIGHT WITHIN REACH.
--- NOTE | 2018-03-16 05:30 | NUR ---
PT SLEPT THROUGHOUT THE NIGHT. LAST BS WAS 82. CRACKERS GIVEN FOR SNACK. CPAP AT NIGHT. NOVOLOG HELD LAST NIGHT. REPORTS HEADACHE PAIN. REFUSES PAIN MEDICATION OR ANY OTHER INTERVENTION.
--- NOTE | 2018-03-16 06:27 | NUR ---
I&os DONE AND CHARTED. FRESH WATER GIVEN. BEDSIDE TABLE AND CALL LIGHT WITHIN REACH.
--- NOTE | 2018-03-16 06:35 | NUR ---
BR 76. PT GIVEN SNACK BEFORE BREAKFAST. PT UP TO BATHROOM. REPORTS NO PAIN AND NOP NEEDS AT THIS TIME. CALL LIGHT WITHIN REACH.
--- NOTE | 2018-03-16 07:30 | NUR ---
REPORT RECEIVED FROM NAMRATA THURSTON, PATIENT IS ALERT AND ORIENTED AND SITTING UP IN THE CHAIR. HE DENIES ANY NEEDS AT THIS TIME. HAS NO QUESTIONS OR CONCERNS.
--- NOTE | 2018-03-16 08:08 | NUR ---
PATIENT FINISHED 100% OF HIS BREAKFAST, INSULIN HELD THIS AM DUE TO BLOOD GLUCOSE LEVEL AT 78. PATIENT GIVEN AM MEDICATIONS AFTER VITALS TAKEN. PATIENT HAS NO C/O PAIN OR NEEDS AT THIS TIME.
--- NOTE | 2018-03-16 10:21 | NUR ---
PT IS SITTING UP I9N CHAIR WATCHING TV WITH CALL LIGHT IN REACH. PT DID NOT NEED ANYTHING ELSE AT THE MOMENT
--- NOTE | 2018-03-16 10:25 | NUR ---
PATIENT UP AMBULATING WITH PHYSICAL THERAPY AT THIS TIME
--- NOTE | 2018-03-16 12:19 | NUR ---
PATIENT'S BLOOD GLUCOSE LEVEL IS 176, PATIENT GIVEN 13 UNITS OF INSULIN, 3 UNITS PER SLIDING SCALE AND 10 PER ORDER. PATIENT REMAINS UP IN THE CHAIR AND DENIES ANY PAIN OR NEEDS AT THIS TIME. HE HAS NO FACIAL DROOP OR TROUBLE WITH SWALLOWING.
--- NOTE | 2018-03-16 14:00 | NUR ---
PATIENT RESTING WITH EYES CLOSED IN HIS CHAIR, RESPIRTIONS EVEN UNLABORED NO S/S OF DISTRESS AT THIS TIME
--- NOTE | 2018-03-16 16:31 | NUR ---
PATIENT'S BLOOD GLUCOSE LEVEL WAS 106, INSULIN HELD AT THIS TIME.
--- NOTE | 2018-03-16 17:48 | NUR ---
PATIENT HAS COMPLETED HIS GOALS WITH PHYSICAL THERAPY AND WILL MOST LIKELY D/C TO HOME IN THE AM. HE AMBULATES INDEPENDTLY IN THE HALLWAY WITH A FWW. HE HAD HIS LANTUS DC'D TODAY DUE TO LOW BLOOD SUGARS. ACCUCHECKS TODAY HAVE BEEN 78, 176, AND 106. HE HAS HAD NO C/O PAIN OR SOB TODAY.
--- NOTE | 2018-03-16 17:57 | NUR ---
PT IS SITTING UP IN CHAIR VISITING WITH SPOUSE CALL LIGHT IN REACH. PT DID NOT NEED ANYTHING AT THE MOMENT
--- NOTE | 2018-03-16 21:04 | NUR ---
Pt up in chair, cooperative with assessment, no c/o pain or hypo/hyperclycemia s/sx. watching tv.
--- NOTE | 2018-03-16 23:59 | NUR ---
IN BARIATRIC BED, USING CPAP, EYES CLOSED, NO RESP DISTRESS, RESTING
--- NOTE | 2018-03-17 02:32 | NUR ---
RESTING, NO S/SX PAIN OR SOB, WEARING CPAP, PT IN BARIATRIC BED
--- NOTE | 2018-03-17 04:23 | NUR ---
RESTING, NO S/SX OF SOB OR CP, PT IN BARIATRIC BED, EYES CLOSED, WEARING CPAP
--- NOTE | 2018-03-17 06:15 | NUR ---
HAS SLEPT THIS SHIFT, TODAYS WEIGHT 360.6# STANDING SCALE. PT HAS SLEPT THIS SHIFT IN BARIATRIC BED. CPAP USED ALL NIGHT. NO C/O PAIN, N/V OR C/O HIGH OR LOW BLOOD SUGARS. PT UP TO BRP FROM CHAIR OR BED, VOIDING QS. NO C/O OR REQUESTS AT THIS TIME, NEUROCHECKS WITH RIGHT SIDED RESIDUAL WEAKNESS. USES WALKER IN ROOM. PT STATED THAT HE IS TO BE DC HOME TODAY.
--- NOTE | 2018-03-17 07:27 | NUR ---
REPORT RECEIVED FROM KARENA CONNOR. PT AWAKE SITTING UP IN CHAIR. DISCUSSED PLAN FOR DAY. PT IS EAGER TO GO HOME. DENIES NEEDS AT THIS TIME.
--- NOTE | 2018-03-17 07:52 | NUR ---
DID PATIENT'S BLOOD SUGAR CHECK THIS MORNING. PATIENT IS UP IN HIS CHAIR WAITING FOR HIS BREAKFAST.
--- NOTE | 2018-03-17 08:01 | NUR ---
REFILLED HIS ICE WATER CUP NOW IS EATING BREAKFAST.
--- NOTE | 2018-03-17 08:20 | NUR ---
PATIENT UP IN CHAIR, PATIENT EXCITED TO BE GOING HOME TODAY. PATIENT DENIES ANY NEDS AT THIS TIME. CALL LIGHT IN REACH
--- NOTE | 2018-03-17 08:59 | NUR ---
PT UP IN CHAIR. AM MEDS ADMINISTERED. ATE 100% OF BREAKFAST THIS AM. PLAN TO DC AFTER WORKING WITH PHYSICAL THERAPY ONE MORE TIME TODAY PER DR DELAROSA. PT FEELS THEY ARE BACK TO BASELINE AND IS EAGER TO GO HOME. DECLINED NYSTATIN POWDER. ABD FOLD IMPROVED.
--- NOTE | 2018-03-17 09:29 | NUR ---
PT UP WALKING WITH PHYSICAL THERAPY.
--- NOTE | 2018-03-17 10:20 | NUR ---
PATIENT UP IN CHAIR WATCHING TV. I/OS DONE AND RECORDED. CALL LIGHT IN REACH.
--- NOTE | 2018-03-17 11:30 | NUR ---
PATIENT ORDERED LUNCH, SONG DIAS TOOK BLOODSUGAR. NO OHTER NEEDS
--- NOTE | 2018-03-17 11:57 | NUR ---
INSULIN ADMINISTERED. WITNESSED BY KARENA SEN AND KARENA FERREIRA. PT RECEIVED LUNCH.
[2018-03-17] MEDS ORDERED: LIPITOR80 MG PO (12:12)
[2018-03-17] MEDS ORDERED: LANTUS100 UNITS/ SUB-Q (12:18)
[2018-03-17] MEDS ORDERED: HUMALOG100 UNITS/ SUB-Q (12:21)
[2018-03-17] MEDS ORDERED: METOPROLOL SUC200 MG PO (12:23)
[2018-03-17] MEDS ORDERED: ASPIR-LOW81 MG PO (12:24)
--- NOTE | 2018-03-17 13:15 | NUR ---
DC INSTRUCTIONS GIVEN. BELONGINGS RETURNED. ALL QUESTIONS ANSWERED. TEACH BACK COMPLETED. PRESCRIPTIONS TO [facility]. PT WHEELED OUT TO CAR WITH FAMILY BY SONG MCDONALD. VS STABLE.
--- NOTE | 2018-03-18 15:00 | NUR ---
ORDERS, CLINICALS FAXED TO [facility]. FAX CONFIRMATION RECEIVED. CALL TO CLINIC, SUZANNE CONFIRMED SHE RECEIVED ORDERS.
== END 2018-03-17 13:15 | disposition home or self-care (01) | DRG 57 ==
LOC: MS 12:48
PROVIDERS: ADMIT Internal Medicine
DX: I69.351 Hemiplegia and hemiparesis following cerebral infarction affecting right dominant side (principal); Z68.44 Body mass index [BMI] 60.0-69.9, adult; I69.398 Other sequelae of cerebral infarction; R20.2 Paresthesia of skin; E89.0 Postprocedural hypothyroidism; G47.33 Obstructive sleep apnea (adult) (pediatric); E66.01 Morbid (severe) obesity due to excess calories; E11.42 Type 2 diabetes mellitus with diabetic polyneuropathy; E11.65 Type 2 diabetes mellitus with hyperglycemia; I10 Essential (primary) hypertension; E78.5 Hyperlipidemia, unspecified; L08.9 Local infection of the skin and subcutaneous tissue, unspecified; I51.7 Cardiomegaly; F39 Unspecified mood [affective] disorder; G89.4 Chronic pain syndrome; Z98.84 Bariatric surgery status; Z85.850 Personal history of malignant neoplasm of thyroid; Z88.5 Allergy status to narcotic agent; Z91.041 Radiographic dye allergy status; Z79.4 Long term (current) use of insulin; Z79.899 Other long term (current) drug therapy
CPT/HCPCS: 92507; 92523; 97110; 97116; 97162; 97166; 97530; J1610; J1650

== ENCOUNTER 2020-01-02 10:16 | Emergency (ER) | payer OTHER ==
[~2020-01-02] VITALS: Ht 172.7 cm; Wt 208.8 kg
[~2020-01-02 10:16] MED LIST changes: +ASPIR-LOW81 MG PO; +GABAPENTIN300 MG PO; +KEFLEX500 MG PO; +LACTULOSE10 GM/15 M PO; +LEVOTHYROXINE100 MCG PO; +LIPITOR80 MG PO; +METOPROLOL SUC200 MG PO
[2020-01-02] MEDS ORDERED: WELLBUTRIN XL300 MG PO (10:27)
--- NOTE | 2020-01-02 15:00 | NUR ---
To room 5 to speak with Gerard. He states he is unable to physially care for self any more. His works and his leg is weak and he falls. He has had several falls where he required the EMS crew to pick him up. He states he would like to be placed in a [place] [facility] [place]. Explained there is criterial SNF placement. He would have to have an in patient diagnosis. Labs a vs are wnl for this pt. He states he has cellulitis under his flap. I asked if the ER had seen this and agreed and he states the does not have a good bedside manner. Discussed options: SNF-requires IP diagnosis and 3 night stay. Let him know he would have to pay copay after 20 days. Assisted living-pt would be required to pay out of pocket. Adult Foster care- pt would need to pay out of pocket. I suggested the pt call [facility] and request an evaluation. He states his has already done so, but does not know where they are in the process. I suggested he call [facility] today and request an eval tra. He declines and states he cannot, I asked why he cannot do so as he can use a remote. He states he prefers his to take care of this. Requested he call [facility] and tell them exactly what is going on and that he is unable to provide any of his own care. If he can get [facility] services they could assist with care or placement. Spoke with and RN and they state he does not have any IP diagnosis, notified I cannot place him. He will need to pay out of pocket for an HALFWAY. They are awaiting on a troponin level and if it is elevated, pt will be transfered.
--- NOTE | 2020-01-03 16:36 | EKG ---
[facility] [address] [place] [address] Signed Normal sinus rhythm Left axis deviation Septal infarct , age undetermined Possible Lateral infarct , age undetermined Abnormal ECG Confirmed by LUNA DELAROSA MD ([id number]) on 01/03/2020 4:36:06 PM Electronically Signed By: LUNA DELAROSA MD 01/03/20 1636 PATIENT NAME: AMANDALUCY ALYSA Electrocardiogram DATE OF : 63 PHYSICIAN: LUNA DELAROSA MD REPORT #: [id number] REPORT IS CONFIDENTIAL AND NOT TO BE RELEASED WITHOUT AUTHORIZATION
== END 2020-01-02 16:48 | disposition home or self-care (01) ==
LOC: ED 10:16
DX: R53.1 Weakness (principal); I10 Essential (primary) hypertension; E66.9 Obesity, unspecified; E11.9 Type 2 diabetes mellitus without complications; Z88.5 Allergy status to narcotic agent; Z91.041 Radiographic dye allergy status; Z79.899 Other long term (current) drug therapy; Z79.4 Long term (current) use of insulin; Z79.82 Long term (current) use of aspirin
CPT/HCPCS: 36415; 71045; 80053; 81001; 83605; 84484; 85025; 93005; 93010; 96360; 96361; 99285-25; J1815; J7030

== ENCOUNTER 2020-04-13 12:42 | Observation (INO) | payer OTHER ==
[~2020-04-13] VITALS: Ht 172.7 cm; Wt 203.9 kg
--- OUTSIDE RECORDS SUMMARY | ~2020-04-13 | XMS | Encounter Summary ---
Demographics + + + | Address | [address] | | | [place] [address] | + + + | Home Phone | | + + + | Preferred Language | Unknown | + + + | Marital Status | | + + + | Gnosticist Affiliation | CHR | + + + | Race | White | + + + | Ethnic Group | Not or | + + + Author + + + | Author | [facility] | + + + | Organization | [facility] | + + + | Address | Unknown | + + + | Phone | Unavailable | + + + Support + + + + + | Name | Relationship | Address | Phone | + + + + + | Tico Burns | ECON | [address] | | | | | [place], [place] | | | | | [address] | | + + + + + Care Team Providers + +------+ + | Care Lipcoat Sprayer Name | Role | Phone | + +------+ + | Moe Bella MD | PCP | | + +------+ + Encounter Details +--------+ + + + + | Date | Type | Department | Care Team | Description | +--------+ + + + + | 08/19/ | Abstract | [facility] | Violetta Byers, | | | 2011 | | Center at [facility] [address] | RECORDS AND TAPE RECORDINGS ENGINEER [address] | | | | | [address] | [facility] [address] | | | | | Mailcode: Center | [place], [place] | | | | | for Health and | [id number] | | | | | [facility] [address] | [phone] | | | | | [place], [place] | | | | | | [address] | | | | | | [phone] | | | +--------+ + + + [...] on file | | + + + + + + + | Job Start Date | Occupation | Industry | + + + + | Not on file | Not on file | Not on file | + + + + + + + + | Travel History | Travel Start | Travel End | + + + + + + | No recent travel history available. | + + documented as of this encounter Plan of Treatment Not on filedocumented as of this encounter Visit Diagnoses Not on filedocumented in this encounter"
--- OUTSIDE RECORDS SUMMARY | ~2020-04-13 | XMS | Encounter Summary ---
Demographics + + + | Address | [address] | | | [place] [address] | + + + | Home Phone | | + + + | Preferred Language | Unknown | + + + | Marital Status | | + + + | Scientology Affiliation | CHR | + + + | Race | White | + + + | Ethnic Group | Not or | + + + Author + + + | Author | [facility] | + + + | Organization | [facility] | + + + | Address | Unknown | + + + | Phone | Unavailable | + + + Support + + + + + | Name | Relationship | Address | Phone | + + + + + | Tico Burns | ECON | [address] | | | | | [place], [place] | | | | | [address] | | + + + + + Care Team Providers + +------+ + | Care Liquor Clerk Name | Role | Phone | + +------+ + | Moe Bella MD | PCP | | + +------+ + Reason for Visit + + + | Reason | Comments | + + + | Follow-up visit | | + + + Benefits Check (Routine) +--------+--------+ + + + + | Status | Reason | Specialty | Diagnoses / | Referred By | Referred To | | | | | Procedures | Contact | Contact | +--------+--------+ + + + + | Closed | | Surgery | | Non-[facility] | [facility] | | | | | | Epic Dept | [facility] | | | | | | | [address] | | | [address] | | | | | | | Mailcode: | | | | | | | [facility] | | [facility] and | | | | | | | Healing, | | | | | | | Building [address] | | | | | | | [place], [place] | | | | | | | [address] | | | | | | | Phone: | | | | | | | [phone] | | | | | | | Fax: | | | | | | | [phone] | +--------+--------+ + + + + Encounter Details +--------+---------+ + + + | Date | Type | Department | Care Team | Description | +--------+---------+ + + + | 09/04/ | Office | [facility] | Jesus Perez, | Status post | | 2012 | Visit | [facility] at [facility] [address] | MD [address] | bariatric surgery | | | | [address] | [address] | (Primary Dx) | | | | Mailcode: [place] | [place], [place] | | | | | [facility] and | [address] | | | | | [facility] | [phone] | | | | | [place], [place] | | | | | | [address] | | | | | | [phone] | | | +--------+---------+ + + + Social History + +-------+ +--------+------+ | Tobacco Use | Types | Packs/Day | Years | Date | | | | | Used | | + +-------+ +--------+------+ | Never Smoker | | | | | + +-------+ +--------+------+ + +---+---+---+ | Smokeless Tobacco: | | | | | Never Used | | | | + +---+---+---+ + + +---------+ + | Alcohol Use [...] + + documented as of this encounter Last Filed Vital Signs + + + + + | Vital Sign | Reading | Time Taken | Comments | + + + + + | Blood Pressure | 155/89 | 09/04/2013 12:26 PM | | | | | PDT | | + + + + + | Pulse | 83 | 09/04/2013 12:26 PM | | | | | PDT | | + + + + + | Temperature | 36.9 C (98.5 F) | 09/04/2013 12:26 PM | | | | | PDT | | + + + + + | Respiratory Rate | 16 | 09/04/2013 12:26 PM | | | | | PDT | | + + + + + | Oxygen Saturation | - | - | | + + + + + | Inhaled Oxygen | - | - | | | Concentration | | | | + + + + + | Weight | 202.2 kg (445 lb | 09/04/2013 12:26 PM | | | | 11.2 oz) | PDT | | + + + + + | Height | 175.3 cm (5' 9") | 09/04/2013 12:26 PM | | | | | PDT | | + + + + + | Body Mass Index | 65.82 | 09/04/2013 12:26 PM | | | | | PDT | | + + + + + documented in this encounter Progress Notes Jesus Perez MD - 09/09/2013 4:27 PM PSTI have reviewed and verified the scribed not e of this patient s visit as recorded by Jaquelin Moe. Jaquelin Mo - 09/04/2013 9:08 AM PDT GENERAL SURGERY OFFICE VISIT DATE OF VISIT: 09/04/2013 I am Jaquelin Moe, functioning as a scribe for Dr. Jesus Perez REASON FOR VISIT: Three-month follow up. HISTORY: Gerard Burns is a 48 y.o. Male ~3 months s/p excision of fatty tumor, low er abdomen, with pathology revealing chronic cellulitis and fibrosis (04/11/2013) Mr. Rl pires underwent gastric bypass surgery in 01/2013. The patient had lost 30lbs prior to that operation at time of 04/11 procedure weighed 480lbs (down from 580lbs). The patient had sign ificant enlargement of his mons area which become pendulous over time and was hanging below his knees making walking difficult. This fatty tumor lies entirely anterior to the genitals causing burried penis and difficulty accessing the penis for urination. The patient was ther efor indicated for resection of this large fatty overgrowth. SURGICAL PATHOLOGY: SOURCE OF SPECIMEN:A Pannus Final Pathologic Diagnosis: Pannus, pannectomy: - Pannus with chronic cellulitis and fibrosis - Seborrheic keratosis INTERVAL HISTORY: At 04/24 postop check he presented with wound dehiscence, serous drainage , negative cellulitis. Local wound care recommended and no antibiotics were given 05/15/2013 TODAY IN CLINIC He is "doing ok, denies pain, has some discomfort in the pubic a evelyne along with swelling and some foul discharge. He denies fevers or chills." TODAY IN CLINIC he presents alone, feeling well. Weight today is 445. He is pleased to te ll us he is not overeating, is careful to have his meal then take his liquid 15 minutes late r. Negative emesis. With his weight loss he is able to walk more and is very pleased with the outcome of his surgery. No complaints today. He will be having a lab draw in [place] in the next few weeks. WEIGHT ONLY Weight (lbs) Weight (kg) BMI 01/30/2013 510 lbs 2 oz 231.38 kg 75.28 09/04/2013 445 lbs 11 oz 202.168 kg 65.79 Past Medical History Diagnosis Date BP (high blood pressure) Numbness 2007 hands and feet High cholesterol Leg sore Depressed 2010 Diabetes mellitus 2006 Thyroid disease 2011 Cancer 2011 Sleep apnea on CPAP Diabetes mellitus type II Past Surgical History Procedure Laterality Date Thyroid removal Gastric bypass attempted Sleeve resection of stomach 01/2013 Fatty tumor excision 04/11/2013 Lower abdomen Current Outpatient Prescriptions Medication Sig Aspirin 81 mg Oral Tablet Take 81 mg by mouth once daily. Calcium Citrate-Vitamin D3 (CITRACAL + D PETITES) 200 mg calcium -250 unit Oral tablet Take 2 Tabs by mouth two times daily. Start 2 weeks after surgery. Indications: Hypocalcemi a Prevention cloNIDine 0.1 mg Oral Tablet Take 0.1 mg by mouth two times daily. cyanocobalamin 1,000 mcg/mL Injection Solution Inject 1,000 mcg into the muscle (IM) ev vaishali thirty days. Indications: Prevention of Vitamin B12 Deficiency docusate sodium (COLACE) 100 mg Oral capsule Take 1 Cap by mouth two times daily. famotidine 20 mg Oral tablet Take 1 Tab by mouth two times daily. Indications: Preventi on of Stress Ulcer FLUoxetine (PROZAC) 20 mg Oral Capsule Take 20 mg by mouth two times daily. insulin glargine 100 unit/mL Subcutaneous Solution Inject 35 Units under the skin (SUBC ) once daily at bedtime. Recommend the 35 units, check CBG. May increase up to 50 if CBG in creased per PCP Indications: TYPE 2 DIABETES MELLITUS insulin lispro 100 unit/mL Subcutaneous Solution Inject 12 Units under the skin (SUBC) three times daily with meals. Indications: TYPE 2 DIABETES MELLITUS insulin lispro 100 unit/mL Subcutaneous Solution Use 2 units for 141-200, 4 units for 2 01-250, 6 units for 251-300, nj your doctor if > Indications: TYPE 2 DIABETES MELLITUS levothyroxine (SYNTHROID) 175 mcg Oral Tablet Take 175 mcg by mouth once daily. LOSARTAN/HYDROCHLOROTHIAZIDE (HYZAAR ORAL) Take by mouth. metFORMIN SR 500 mg Oral tablet extended release 24 hr Take 4 Tabs by mouth once daily. Administer with evening meal. Indications: TYPE 2 DIABETES MELLITUS metoprolol tartrate 100 mg Oral Tablet Take 100 mg by mouth two times daily. multivitamin Oral capsule Take 1 Cap by mouth once daily. Indications: VITAMIN DEFICIEN CY oxyCODONE, immediate release, 5 mg Oral tablet Take 1-3 Tabs by mouth every three hours as needed for severe pain. Indications: Pain pediatric multivitamin chewable (CHILDRENS CHEWABLE VITAMINS) Oral tablet, chewable Konrad e 1 Tab by mouth two times daily. phentermine 37.5 mg Oral tablet Take 1 Tab by mouth once daily in the morning. Administ er before breakfast. polyethylene glycol 17 gram/dose Oral Powder Take 17 g by mouth once daily as needed (N o BM in past 3 days). Indications: CONSTIPATION ursodiol 300 mg Oral capsule Take 1 Cap by mouth two times daily. Start Actigall 2 week s after surgery. Indications: Cholelithiasis Prevention VITAMIN A/VITAMIN D2 (VITAMIN A & ERGOCALCIFEROL,D2, ORAL) Take by mouth. No current facility-administered medications for this visit. Allergies Allergen Reactions Codeine Rash Rash all over arms Family Hx Problem Relation Age of Onset Arthritis Father History Substance Use Topics Smoking status: Never Smoker Smokeless tobacco: Never Used Alcohol Use: 0.0 oz/week 0 drink(s) per week Comment: very rare Social History Narrative to Shilpi REVIEW OF SYSTEMS: All 14 systems reviewed and negative except as noted above. PHYSICAL EXAMINATION: BP 155/89 | Pulse 83 | Temp (Src) 36.9 C (98.5 F) (Oral) | RR 16 | Ht 1.753 m (5' 9") | Wt 202.168 kg (445 lb 11.2 oz) | BMI 65.79 kg/(m^2) GENERAL: Obese, well nourished, well developed and in no apparent distress, alert. HEENT: Grossly within normal limits. NECK: Supple, full range of motion. SKIN: No visible rashes. CHEST: Respirations even and unlabored. CARDIOVASCULAR: Extremities warm and well perfused. ABDOMEN: Soft, nontender, nondistended. EXTREMITIES: No edema, normal range of motion. NEUROLOGIC: Moves all extremities spontaneously. No apparent neurologic deficits. Cranial nerves 2-12 grossly intact. Gait symmetric and age appropriate. IMPRESSION: A(n) 48 y.o. male doing well ~3 months s/p excision of chronic cellulitis and fibrosis of pannus and now 7 months s/p gastric bypass with 110-lb weight loss. PLAN: 1. Return to clinic 6 months for discussion of panniculectomy. 2. Goal to lose another 40 lbs prior to panniculectomy. documented in this enco unter Plan of Treatment Not on filedocumented as of this encounter Visit Diagnoses + + | Diagnosis | + + | Status post bariatric surgery - Primary Bariatric surgery status | + + documented in this encounter
--- OUTSIDE RECORDS SUMMARY | ~2020-04-13 | XMS | Encounter Summary ---
Demographics + + + | Address | [address] | | | [place] [address] | + + + | Home Phone | | + + + | Preferred Language | Unknown | + + + | Marital Status | | + + + | Yazdanism Affiliation | CHR | + + + | Race | White | + + + | Ethnic Group | Not or | + + + Author + + + | Author | [facility] | + + + | Organization | [facility] | + + + | Address | Unknown | + + + | Phone | Unavailable | + + + Support + + + + + | Name | Relationship | Address | Phone | + + + + + | Tico Burns | ECON | [address] | | | | | [place], [place] | | | | | [address] | | + + + + + Care Team Providers + +------+ + | Care Experimental Mechanic Electrical Name | Role | Phone | + +------+ + | Moe Bella MD | PCP | | + +------+ + Reason for Referral Consultation (Routine) +--------+--------+ + + + + | Status | Reason | Specialty | Diagnoses / | Referred By | Referred To | | | | | Procedures | Contact | Contact | +--------+--------+ + + + + | Closed | | Pain | Diagnoses | Conser, | Psychologist Educational Psych | | | | Management | Morbid | Violetta Sweeney NP | [facility] [address] | | | | | obesity | [address] | | | | | ([facility]) | [address], | Mailcode: | | | | | Procedures | [address] | [facility] | | | | | CONSULT TO | [place], [place] | for Health | | | | | PAIN CENTER | [address] | and Healing, | | | | | | Phone: | Building [address], | | | | | | [phone] | [address]th Floor | | | | | | Fax: | [place], [place] | | | | | | [phone] | [address] | | | | | | | Phone: | | | | | | | [phone] | | | | | | | Fax: | | | | | | | [phone] | +--------+--------+ + + + + Encounter Details +--------+ + + + + | Date | Type | Department | Care Team | Description | +--------+ + + + + | 04/26/ | Documentati | Dig[facility]ive Health | Violetta Byers, | | | 2011 | on | Center at [facility] [address] | EQUIPMENT ENGINEERING TECHNICIAN [address] | | | | | [address] | , [address] | | | | | Mailcode: Center | [place], [place] | | | | | for Health and | [address] | | | | | Healing, [address] | [phone] | | | | | [place], [place] | | | | | | [address] | | | | | | [phone] | | | +--------+ + + + + Social History + +-------+ +--------+------+ | Tobacco Use | Types | Packs/Day | Years | Date | | | | | Used | | + +-------+ +--------+------+ | Never Assessed | | | | | + +-------+ +--------+------+ + + + | Sex Assigned at [...] + | Diagnosis | + + | Morbid obesity (HCC) - Primary Morbid obesity | + + documented in this encounter"
--- OUTSIDE RECORDS SUMMARY | ~2020-04-13 | XMS | Clinical Summary ---
Demographics + + + | Address | [address] | | | [place] [address] | + + + | Home Phone | | + + + | Preferred Language | Unknown | + + + | Marital Status | | + + + | Adventist Affiliation | CHR | + + + | Race | White | + + + | Ethnic Group | Not or | + + + Author + + + | Author | [facility] | + + + | Organization | [facility] | + + + | Address | Unknown | + + + | Phone | Unavailable | + + + Support + + + + + | Name | Relationship | Address | Phone | + + + + + | Tico Burns | ECON | [address] | | | | | [place], [place] | | | | | [address] | | + + + + + Care Team Providers + +------+ + | Care Tinter Photograph Name | Role | Phone | + +------+ + | Moe Bella MD | PCP | | + +------+ + Source Comments SONJA is fully live on both EpicCare Ambulatory and EpicCare InPatient.[facility] Allergies + + + + + + | Active Allergy | Reactions | Severity | Noted | Comments | | | | | Date | | + + + + + + | Codeine | Rash | High | 04/24/20 | Rash all over arms | | | | | 12 | | + + + + + + Medications + + + +---------+------+------+-------+ | Medication | Sig | Dispensed | Refills | Star | End | Statu | | | | | | t | Date | s | | | | | | Date | | | + + + +---------+------+------+-------+ | metoprolol | Take 100 mg by mouth | | 0 | | | Activ | | tartrate 100 mg Oral | two times daily. | | | | | e | | Tablet | | | | | | | + + + +---------+------+------+-------+ | | Take by mouth. | | 0 | | | Activ | | LOSARTAN/HYDROCHLORO | | | | | | e | | THIAZIDE (HYZAAR | | | | | | | | ORAL) | | | | | | | + + + +---------+------+------+-------+ | FLUoxetine | Take 20 mg by mouth | | 0 | | | Activ | | (PROZAC) 20 mg Oral | two times daily. | | | | | e | | Capsule | | | | | | | + + + +---------+------+------+-------+ | cloNIDine 0.1 mg | Take 0.1 mg by mouth | | 0 | | | Activ | | Oral Tablet | two times daily. | | | | | e | + + + +---------+------+------+-------+ | Aspirin 81 mg Oral | Take 81 mg by mouth | | 0 | | | Activ | | Tablet | once daily. | | | | | e | + + + +---------+------+------+-------+ | ursodiol 300 mg | Take 1 Cap by mouth | 60 Cap | 5 | 03/2 | | Activ | | Oral | two times daily. | | | /20 | | e | | capsuleIndications: | Start Actigall 2 | | | 13 | | | | cholelithiasis | weeks after surgery. | | | | | | | prevention | Indications: | | | | | | | | Cholelithiasis | | | | | | | | Prevention | | | | | | + + + +---------+------+------+-------+ | Calcium | Take 2 Tabs by mouth | 100 Tab | 12 | 01/04 | | Activ | | Citrate-Vitamin D3 | two times daily. | | | 12/25 | | e | | (CITRACAL + D | Start 2 weeks after | | | 13 | | | | PETITES) 200 mg | surgery. | | | | | | | calcium -250 unit | Indications: | | | | | | | Oral | Hypocalcemia | | | | | | | tabletIndications: | Prevention | | | | | | | hypocalcemia | | | | | | | | prevention | | | | | | | + + + +---------+------+------+-------+ | pediatric | Take 1 Tab by mouth | 100 Tab | 12 | 0 | | Activ | | multivitamin | two times daily. | | | 06/24 | | e | | chewable (CHILDRENS | | | | 13 | | | | CHEWABLE VITAMINS) | | | | | | | | Oral tablet, | | | | | | | | chewable | | | | | | | + + + +---------+------+------+-------+ | cyanocobalamin | Inject 1,000 mcg | | 0 | | | Activ | | 1,000 mcg/mL | into the muscle (IM) | | | | | e | | Injection | every thirty days. | | | | | | | SolutionIndications: | Indications: | | | | | | | prevention of | Prevention of | | | | | | | vitamin B12 | Vitamin B12 | | | | | | | deficiency | Deficiency | | | | | | + + + +---------+------+------+-------+ | insulin glargine | Inject 35 Units | 10 mL | 2 | 04/05 | | Activ | | 100 unit/mL | under the skin | | | 0/20 | | e | | Subcutaneous | (SUBC) once daily at | | | 13 | | | | SolutionIndications: | bedtime. Recommend | | | | | | | type 2 diabetes | the 35 units, check | | | | | | | mellitus | CBG. May increase | | | | | | | | up to 50 if CBG | | | | | | | | increased per PCP | | | | | | | | Indications: TYPE 2 | | | | | | | | DIABETES MELLITUS | | | | | | + + + +---------+------+------+-------+ | insulin lispro 100 | Inject 12 Units | 10 mL | 2 | 04/05 | | Activ | | unit/mL | under the skin | | | 0/20 | | e | | Subcutaneous | (SUBC) three times | | | 13 | | | | SolutionIndications: | daily with meals. | | | | | | | type 2 diabetes | Indications: TYPE 2 | | | | | | | mellitus | DIABETES MELLITUS | | | | | | + + + +---------+------+------+-------+ | multivitamin Oral | Take 1 Cap by mouth | 30 Cap | 2 | 06/ | | Activ | | capsuleIndications: | once daily. | | | 0/20 | | e | | vitamin deficiency | Indications: VITAMIN | | | 13 | | | | | DEFICIENCY | | | | | | + + + +---------+------+------+-------+ | polyethylene | Take 17 g by mouth | 527 g | 1 | 04/05 | | Activ | | glycol 17 gram/dose | once daily as needed | | | 0/20 | | e | | Oral | (No BM in past 3 | | | 13 | | | | PowderIndications: | days). Indications: | | | | | | | constipation | CONSTIPATION | | | | | | + + + +---------+------+------+-------+ | insulin lispro 100 | Use 2 units for | 10 mL | 1 | 06/1 | | Activ | | unit/mL | 141-200, 4 units for | | | 0/20 | | e | | Subcutaneous | 201-250, 6 units | | | 13 | | | | SolutionIndications: | for 251-300, nj | | | | | | | type 2 diabetes | your doctor if > | | | | | | | mellitus | Indications: TYPE 2 | | | | | | | | DIABETES MELLITUS | | | | | | + + + +---------+------+------+-------+ | metFORMIN SR 500 | Take 4 Tabs by mouth | 100 Tab | 1 | 04/05 | | Activ | | mg Oral tablet | once daily. | | | 0 | | e | | extended release 24 | Administer with | | | 13 | | | | hrIndications: type | evening meal. | | | | | | | 2 diabetes mellitus | Indications: TYPE 2 | | | | | | | | DIABETES MELLITUS | | | | | | + + + +---------+------+------+-------+ | gabapentin 300 mg | Take 300 mg by mouth | | 0 | 12/06 | | Activ | | oral capsule | three times daily. | | | 11/24 | | e | | | | | | 17 | | | + + + +---------+------+------+-------+ | nystatin 100,000 | Apply to affected | 56.7 g | 3 | 01/03 | | Activ | | unit/gram topical | area two times | | | 0/20 | | e | | powderIndications: | daily. Apply to | | | 17 | | | | soft tissue | candidal lesions | | | | | | | infection | until lesions have | | | | | | | | healed. | | | | | | | | Indications: skin | | | | | | | | infection | | | | | | + + + +---------+------+------+-------+ Active Problems + + + | Problem | Noted Date | + + + | Morbid obesity | 01/30/2017 | + + + | History of sleeve gastrectomy | 01/30/2017 | + + + | Vitamin D deficiency disease | 01/30/2017 | + + + | Vitamin B 12 deficiency | 01/30/2017 | + + + | Intertriginous candidiasis | 01/30/2017 | + + + | Skin breakdown | 01/30/2017 | + + + | Ramona infection of flexural skin | 01/12/2017 | + + + | Thyroid cancer | 08/21/2012 | + + + + + | Overview: Stage1 papillary thyroid cancer. | | Thyroglobulin antibodies | + + + + + | Morbid obesity | 06/18/2012 | + + + | Depression | 06/18/2012 | + + + | BMI 60.0-69.9, adult | 06/18/2012 | + + + | Nephrolithiasis | 06/18/2012 | + + + | DM (diabetes mellitus) | 06/18/2012 | + + + | Hypertension | 06/18/2012 | + + + | Hyperlipidemia | 06/18/2012 | + + + | Panniculitis | 06/18/2012 | + + + | Edema | 06/18/2012 | + + + | Sleep apnea | | + + + + + | Overview: on CPAP | + + Encounters +--------+ + + + + | Date | Type | Specialty | Care Team | Description | +--------+ + + + + | 04/12/ | Video/TeleH | Orthopedics | Marshall Guzman | New Patient Visit; | | 2019 | ealth-Sched | | Domingo Parry MD | Weakness | | | uled | | | | +--------+ + + + + from Last 3 Months Family History + + +------+ + | Medical History | Relation | Name | Comments | + + +------+ + | Arthritis | Father | | | + + +------+ + + +------+--------+ + | Relation | Name | Status | Comments | + +------+--------+ + | Brother | | Alive | | + +------+--------+ + | Father | | Alive | | + +------+--------+ + | Mother | | Alive | | + +------+--------+ + Social History + +-------+ +--------+------+ | [...] recent travel history available. | + + Last Filed Vital Signs + + + + + | Vital Sign | Reading | Time Taken | Comments | + + + + + | Blood Pressure | 157/91 | 01/30/2017 1:15 PM | | | | | PDT | | + + + + + | Pulse | 114 | 01/30/2017 1:15 PM | | | | | PDT | | + + + + + | Temperature | 37.3 C (99.2 F) | 01/30/2017 1:15 PM | | | | | PDT | | + + + + + | Respiratory Rate | 16 | 01/30/2017 1:15 PM | | | | | PDT | | + + + + + | Oxygen Saturation | 95% | 01/30/2017 1:15 PM | | | | | PDT | | + + + + + | Inhaled Oxygen | - | - | | | Concentration | | | | + + + + + | Weight | 197.3 kg (435 lb) | 01/30/2017 1:15 PM | | | | | PDT | | + + + + + | Height | 172.7 cm (5' 8") | 01/30/2017 1:15 PM | | | | | PDT | | + + + + + | Body Mass Index | 66.14 | 01/30/2017 1:15 PM | | | | | PDT | | + + + + + Plan of Treatment + + + + + | Health Maintenance | Due Date | Last Done | Comments | + + + + + | Pneumococcal | | | | | vaccination ( | 0 | | | | - PPSV23) | | | | + + + + + | Influenza (Flu) | | | | | vaccination (Season | 0 | | | | Ended) | | | | + + + + + Results Not on filefrom Last 3 Months Insurance +-------+--------+ +--------+ + +------+ | Payer | Benefi | Subscriber | Effect | Phone | Address | Type | | | t Plan | ID | tao | | | | | | / | | Dates | | | | | | Group | | | | | | +-------+--------+ +--------+ + +------+ | MODA | MODA | [phone] | 11/05/19 | [phone] | [address] | PPO | | | [place] | | [address] | [address] | [id number] | | | | [place] | | sent | | [place], | | | | | | | | [place] [address] | | +-------+--------+ +--------+ + +------+ + +--------+ +--------+ + + | Guarantor Name | Accoun | Relation to | Date | Phone | Billing Address | | | t Type | Patient | of | | | | | | | | | | + +--------+ +--------+ + + | Gerard Burns | Person | Self [birth year] | [address] | | | al/Fam | | 1965 | [phone] | [place] [address] | | | yas | | | 5 (Home) | | + +--------+ +--------+ + + Advance Directives + + + + + | Code Status | Date | Date | Comments | | | Activated | Inactivated | | + + + + + | Full Code | 04/11/2013 | 04/14/2013 | | | | 4:48 PM | 7:14 PM | | + + + + + + + + +---+ | | | | | + + + +---+ | Full Code | 04/11/2013 | 04/11/2013 | | | | 8:24 AM | 4:48 PM | | + + + +---+
--- OUTSIDE RECORDS SUMMARY | ~2020-04-13 | XMS | Encounter Summary ---
Demographics + + + | Address | [address] | | | [place] [address] | + + + | Home Phone | | + + + | Preferred Language | Unknown | + + + | Marital Status | | + + + | Tenriism Affiliation | 1013 | + + + | Race | Unknown | + + + | Ethnic Group | Unknown | + + + Author + + + | Author | [facility] | | | and [place] | + + + | Organization | [facility] | | | and [place] | + + + | Address | Unknown | + + + | Phone | Unavailable | + + + Support + + + + + | Name | Relationship | Address | Phone | + + + + + | Milady Burns | ECON | [address] | | | | | [place], [place] | | | | | [address] | | + + + + + Care Team Providers + +------+ + | Care Centrifugal Separator Name | Role | Phone | + +------+ + PCP | Unavailable | + +------+ + Encounter Details +--------+ + + + + | Date | Type | Department | Care Team | Description | +--------+ + + + + | 07/11/ | Hospital | [facility] | Harry Lechuga MD | | | 2010 - | Encounter | MED CTR SURGICAL | [address] [place] | | | | | [address] | [address], | | | 07/13/ | | [place] [address] | [place] [address] | | | 2010 | | [phone] | [phone] | | | | | | | | +--------+ + + [...] Not on filedocumented as of this encounter Procedures + +--------+ + + + | Procedure Name | Priori | Date/Time | Associated Diagnosis | Comments | | | ty | | | | + +--------+ + + + | CALCIUM | Routin | 07/13/2011 | | Results for this | | | e | 6:21 AM | | procedure are in the | | | | PDT | | results section. | + +--------+ + + + | CALCIUM | Routin | 07/12/2011 | | Results for this | | | e | 6:51 PM | | procedure are in the | | | | PDT | | results section. | + +--------+ + + + | CALCIUM | Routin | 07/12/2011 | | Results for this | | | e | 6:21 AM | | procedure are in the | | | | PDT | | results section. | + +--------+ + + + | CALCIUM | Routin | 07/11/2011 | | Results for this | | | e | 6:31 PM | | procedure are in the | | | | PDT | | results section. | + +--------+ + + + documented in this encounter Results Calcium (07/13/2011 6:21 AM PDT) + +-------+ + + + | Component | Value | Ref Range | Performed | Pathologist | | | | | At | Signature | + +-------+ + + + | Calcium | 9.0 | 8.3 - 10.5 | [facility] | | | | | mg/dL | [facility] | | | | | | MEDICAL | | | | | | CENTER - | | | | | | LABORATORY | | + +-------+ + + + + + | Specimen | + + | | + + + + + + + | Performing | Address | City/State/Zipcode | Phone Number | | Organization | | | | + + + + + | [facility] | [address] | [place] | [phone] | | [facility] | | [address] | | | - LABORATORY | | | | + + + + + | [facility] | [address] | [place], [place] | | | [facility] | | [address] | | | - LABORATORY | | | | + + + + + Calcium (07/12/2011 6:51 PM PDT) + +-------+ + + + | Component | Value | Ref Range | Performed | Pathologist | | | | | At | Signature | + +-------+ + + + | Calcium | 8.9 | 8.3 - 10.5 | [facility] | | | | | mg/dL | [facility] | | | | | | MEDICAL | | | | | | CENTER - | | | | | | LABORATORY | | + +-------+ + + + + + | Specimen | + + | | + + + + + + + | Performing | Address | City/State/Zipcode | Phone Number | | Organization | | | | + + + + + | [facility] | [address] | [place], [place] | [phone] | | [facility] | | [address] | | | - LABORATORY | | | | + + + + + | [facility] | [address] | [place] | | | [facility] | | [address] | | | - LABORATORY | | | | + + + + + Calcium (07/12/2011 6:21 AM PDT) + +-------+ + + + | Component | Value | Ref Range | Performed | Pathologist | | | | | At | Signature | + +-------+ + + + | Calcium | 8.4 | 8.3 - 10.5 | [facility] | | | | | mg/dL | [facility] | | | | | | MEDICAL | | | | | | CENTER - | | | | | | LABORATORY | | + +-------+ + + + + + | Specimen | + + | | + + + + + + + | Performing | Address | City/State/Zipcode | Phone Number | | Organization | | | | + + + + + | [facility] | [address] | [place] | [phone] | | [facility] | | [address] | | | - LABORATORY | | | | + + + + + | [facility] | [address] | [place] | | | [facility] | | [address] | | | - LABORATORY | | | | + + + + + Calcium (07/11/2011 6:31 PM PDT) + +-------+ + + + | Component | Value | Ref Range | Performed | Pathologist | | | | | At | Signature | + +-------+ + + + | Calcium | 8.9 | 8.3 - 10.5 | [facility] | | | | | mg/dL | [facility] | | | | | | MEDICAL | | | | | | CENTER - | | | | | | LABORATORY | | + +-------+ + + + + + | Specimen | + + | | + + + + + + + | Performing | Address | City/State/Zipcode | Phone Number | | Organization | | | | + + + + + | [facility] | [address] | [place] | [phone] | | [facility] | | [address] | | | - LABORATORY | | | | + + + + + | [facility] | [address] | [place] | | | [facility] | | [address] | | | - LABORATORY | | | | + + + + + documented in this encounter Visit Diagnoses Not on filedocumented in this encounter"
--- OUTSIDE RECORDS SUMMARY | ~2020-04-13 | XMS | Encounter Summary ---
Demographics + + + | Address | [address] | | | [place] [address] | + + + | Home Phone | | + + + | Preferred Language | Unknown | + + + | Marital Status | | + + + | Methodist Affiliation | 1013 | + + + | Race | Unknown | + + + | Ethnic Group | Unknown | + + + Author + + + | Author | [facility] | | | and [place] | + + + | Organization | [facility] | | | and [place] | + + + | Address | Unknown | + + + | Phone | Unavailable | + + + Support + + + + + | Name | Relationship | Address | Phone | + + + + + | Milady Burns | ECON | [address] | | | | | [place] | | | | | [address] | | + + + + + Care Team Providers + +------+ + | Care Therapeutic Recreation Leader Name | Role | Phone | + +------+ + | Moe Bella MD | PCP | | + +------+ + Reason for Visit +--------+ + | Reason | Comments | +--------+ + | Other | | +--------+ + Encounter Details +--------+ + + + + | Date | Type | Department | Care Team | Description | +--------+ + + + + | 05/05/ | Telephone | [facility] | Franky Kumar, | Other | | 2016 | | NEUROSURGERY [address] | DO [address] | | | | | [address] | [address] [place], [place] | | | | | [place], [place] | [address] | | | | | [address] | | | | | | [phone] | | | +--------+ + + + [...]
--- OUTSIDE RECORDS SUMMARY | ~2020-04-13 | XMS | Encounter Summary ---
Demographics + + + | Address | [address] | | | [place] [address] | + + + | Home Phone | | + + + | Preferred Language | Unknown | + + + | Marital Status | | + + + | Yarsanism Affiliation | CHR | + + + | Race | White | + + + | Ethnic Group | Not or | + + + Author + + + | Author | [facility] | + + + | Organization | [facility] | + + + | Address | Unknown | + + + | Phone | Unavailable | + + + Support + + + + + | Name | Relationship | Address | Phone | + + + + + | Tico Burns | ECON | [address] | | | | | [place], [place] | | | | | [address] | | + + + + + Care Team Providers + +------+ + | Care Farm Laborer Name | Role | Phone | + +------+ + | Moe Bella MD | PCP | | + +------+ + Reason for Visit Benefits Check (Routine) +--------+--------+ + + + [...] | | | | | | | [facility] [place] | | | | | | | [address] | | | | | | | Phone: | | | | | | | [phone] | | | | | | | Fax: | | | | | | | [phone] | +--------+--------+ + + + + Encounter Details +--------+---------+ + + + | Date | Type | Department | Care Team | Description | +--------+---------+ + + + | 03/19/ | Office | [facility] | Jesus Perez, | Morbid obesity (HCC) | | 2013 | Visit | [place] [facility] [address] | [address] | (Primary Dx) | | | | [address] | [address] | | | | | Mailcode: [place] | [place], [place] | | | | | [facility] and | [address] | | | | | Healing, [address] | [phone] | | | | | [facility] [place] | | | | | | [address] | | | | | | [phone] | | | +--------+---------+ + + + [...] + + documented as of this encounter Progress Notes Jesus Perez MD - 03/23/2014 10:17 AM PDTNo show Jaquelin Chen - 03/19/2014 6:47 AM PDTErroneous enco unter. No show. document ed in this encounter Plan of Treatment Not on filedocumented as of this encounter Visit Diagnoses + + | Diagnosis | + + | Morbid obesity (HCC) - Primary Morbid obesity | + + documented in this encounter"
--- OUTSIDE RECORDS SUMMARY | ~2020-04-13 | XMS | Encounter Summary ---
Demographics + + + | Address | [address] | | | [place] [address] | + + + | Home Phone | | + + + | Preferred Language | Unknown | + + + | Marital Status | | + + + | Caodaism Affiliation | CHR | + + + | Race | White | + + + | Ethnic Group | Not or | + + + Author + + + | Author | [facility] | + + + | Organization | [facility] | + + + | Address | Unknown | + + + | Phone | Unavailable | + + + Support + + + + + | Name | Relationship | Address | Phone | + + + + + | Tico Burns | ECON | [address] | | | | | [place], [place] | | | | | [address] | | + + + + + Care Team Providers + +------+ + | Care Blueprint Reader Name | Role | Phone | + +------+ + | Moe Bella MD | PCP | | + +------+ + Encounter Details +--------+ + + + + | Date | Type | Department | Care Team | Description | +--------+ + + + + | 02/14/ | Abstract | [facility] | Clinic, Surgery | | | 2015 | | [place] [facility] [address] | | | | | | [address] | | | | | | Mailcode: [place] | | | | | | for Health and | | | | | | Healing, [address] | | | | | | [place], [place] | | | | | | [address] | | | | | | [phone] | | | +--------+ + + + [...]
--- OUTSIDE RECORDS SUMMARY | ~2020-04-13 | XMS | Encounter Summary ---
Demographics + + + | Address | [address] | | | [place] [address] | + + + | Home Phone | | + + + | Preferred Language | Unknown | + + + | Marital Status | | + + + | Anabaptism Affiliation | 1013 | + + + | Race | Unknown | + + + | Ethnic Group | Unknown | + + + Author + + + | Author | [facility] | | | and [place] | + + + | Organization | [facility] | | | and [place] | + + + | Address | Unknown | + + + | Phone | Unavailable | + + + Support + + + + + | Name | Relationship | Address | Phone | + + + + + | Milady Burns | ECON | [address] | | | | | [place] | | | | | [address] | | + + + + + Care Team Providers + +------+ + | Care Leaf Tier Name | Role | Phone | + +------+ + | Moe Bella MD | PCP | | + +------+ + Encounter Details +--------+ + + + + | Date | Type | Department | Care Team | Description | +--------+ + + + + | 05/10/ | Preadmit | [facility] | Chauncey Lee MD | Cervical spondylosis | | 2016 | Visit | [facility] | [address] | with radiculopathy; | | | | CLINIC [address] | [place] [address] | Morbid obesity, | | | | [place] | [phone] | unspecified obesity | | | | [address] | | type (HCC); | | | | | | Depression, | | | | | | unspecified | | | | | | depression type; | | | | | | Hyperlipidemia, | | | | | | unspecified | | | | | | hyperlipidemia type; | | | | | | Hypothyroidism, | | | | | | unspecified type; | | | | | | DIABETES MELLITUS, | | | | | | TYPE II, | | | | | | UNCONTROLLED, WITH | | | | | | COMPLICATIONS; | | | | | | THYROID CANCER; | | | | | | Degenerative disc | | | | | | disease, cervical; | | | | | | Foraminal stenosis | | | | | | of cervical region; | | | | | | Sleep apnea, | | | | | | obstructive | +--------+ + + + + Social [...] | 0 Standard drinks | 0.0 | RARE SOCIAL | | | or equivalent | | [...] | + +--------+ + + + | ECG 12 LEAD | Routin | 05/10/2016 | Cervical | Results for this | | | e | 3:43 PM | spondylosis with | procedure are in the | | | | PDT | radiculopathy | results section. | | | | | Morbid obesity, | | | | | | unspecified obesity | | | | | | type (HCC) | | | | | | Depression, | | | | | | unspecified | | | | | | depression type | | | | | | Hyperlipidemia, | | | | | | unspecified | | | | | | hyperlipidemia type | | | | | | Hypothyroidism, | | | | | | unspecified type | | | | | | DIABETES MELLITUS, | | | | | | TYPE II, | | | | | | UNCONTROLLED, WITH | | | | | | COMPLICATIONS | | | | | | THYROID CANCER | | | | | | Degenerative disc | | | | | | disease, cervical | | | | | | Foraminal stenosis | | | | | | of cervical region | | | | | | Sleep apnea, | | | | | | obstructive | | + +--------+ + + + | CULTURE, MRSA | Routin | 05/10/2016 | | Results for this | | | e | 3:42 PM | | procedure are in the | | | | PDT | | results section. | + +--------+ + + + | CBC WITH | Routin | 05/10/2016 | Cervical | Results for this | | DIFFERENTIAL | e | 3:42 PM | spondylosis with | procedure are in the | | | | PDT | radiculopathy | results section. | | | | | Morbid obesity, | | | | | | unspecified obesity | | | | | | type (HCC) | | | | | | Depression, | | | | | | unspecified | | | | | | depression type | | | | | | Hyperlipidemia, | | | | | | unspecified | | | | | | hyperlipidemia type | | | | | | Hypothyroidism, | | | | | | unspecified type | | | | | | DIABETES MELLITUS, | | | | | | TYPE II, | | | | | | UNCONTROLLED, WITH | | | | | | COMPLICATIONS | | | | | | THYROID CANCER | | | | | | Degenerative disc | | | | | | disease, cervical | | | | | | Foraminal stenosis | | | | | | of cervical region | | | | | | Sleep apnea, | | | | | | obstructive | | + +--------+ + + + | BASIC METABOLIC | Routin | 05/10/2016 | Cervical | Results for this | | PANEL | e | 3:42 PM | spondylosis with | procedure are in the | | | | PDT | radiculopathy | results section. | | | | | Morbid obesity, | | | | | | unspecified obesity | | | | | | type (HCC) | | | | | | Depression, | | | | | | unspecified | | | | | | depression type | | | | | | Hyperlipidemia, | | | | | | unspecified | | | | | | hyperlipidemia type | | | | | | Hypothyroidism, | | | | | | unspecified type | | | | | | DIABETES MELLITUS, | | | | | | TYPE II, | | | | | | UNCONTROLLED, WITH | | | | | | COMPLICATIONS | | | | | | THYROID CANCER | | | | | | Degenerative disc | | | | | | disease, cervical | | | | | | Foraminal stenosis | | | | | | of cervical region | | | | | | Sleep apnea, | | | | | | obstructive | | + +--------+ + + + documented in this encounter Results ECG 12 lead (05/10/2016 3:43 PM PDT) + + + + + + | Component | Value | Ref Range | Performed | Pathologist | | | | | At | Signature | + + + + + + | VENTRICULAR | 87 | BPM | [facility] | | | RATE EKG | | | | | + + + + + + | ATRIAL RATE | 87 | BPM | [facility] | | + + + + + + | P-R | 180 | ms | [facility] | | | INTERVAL | | | | | + + + + + + | QRS | 96 | ms | [facility] | | | DURATION | | | | | + + + + + + | Q-T | 370 | ms | [facility] | | | INTERVAL | | | | | + + + + + + | Q-T | 445 | ms | [facility] | | | INTERVAL | | | | | | (CORRECTED) | | | | | + + + + + + | P WAVE AXIS | 60 | degrees | [facility] | | + + + + + + | QRS AXIS | -58 | degrees | [facility] | | + + + + + + | T AXIS | 47 | degrees | [facility] | | + + + + + + | INTERPRETAT | Normal sinus rhythmLeft | | [facility] | | | ION TEXT | anterior fascicular | | | | | | blockpoor R-wave | | | | | | progressionNonspecific | | | | | | lateral T-wave | | | | | | abnormalitiesAbnormal | | | | | | ECGNo previous ECGs | | | | | | availableConfirmed by | | | | | | CHARI AUGUST MD ([id number]) | | | | | | on 05/11/2016 7:39:18 AM | | | | + + + + + + + + | Specimen | + + | | + + + + + | Narrative | Performed At | + + + | | | + + + + +---------+ + + | Performing | Address | City/State/Zipcode | Phone Number | | Organization | | | | + +---------+ + + | [facility] | | | | + +---------+ + + CBC with Differential (05/10/2016 3:42 PM PDT) + +-------+ + + + | Component | Value | Ref Range | Performed | Pathologist | | | | | At | Signature | + +-------+ + + + | WBC | 9.3 | 4.0 - 11.0 K/uL | [facility] | | | | | | [facility] | | | | | | MEDICAL | | | | | | CENTER - | | | | | | LABORATORY | | + +-------+ + + + | RBC | 4.92 | 4.30 - 5.70 | [facility] | | | | | M/uL | [facility] | | | | | | MEDICAL | | | | | | CENTER - | | | | | | LABORATORY | | + +-------+ + + + | Hemoglobin | 14.2 | 13.5 - 18.0 | [facility] | | | | | g/dL | [facility] | | | | | | MEDICAL | | | | | | CENTER - | | | | | | LABORATORY | | + +-------+ + + + | Hematocrit | 43.0 | 40.0 - 51.0 % | [facility] | | | | | | [facility] | | | | | | MEDICAL | | | | | | CENTER - | | | | | | LABORATORY | | + +-------+ + + + | MCV | 87.3 | 83.0 - 101.0 fL | [facility] | | | | | | [facility] | | | | | | MEDICAL | | | | | | CENTER - | | | | | | LABORATORY | | + +-------+ + + + | MCH | 28.8 | 28.0 - 35.0 pg | [facility] | | | | | | [facility] | | | | | | MEDICAL | | | | | | CENTER - | | | | | | LABORATORY | | + +-------+ + + + | MCHC | 33.0 | 32.0 - 36.0 | [facility] | | | | | g/dL | [facility] | | | | | | MEDICAL | | | | | | CENTER - | | | | | | LABORATORY | | + +-------+ + + + | RDW-CV | 12.9 | <15.0 % | [facility] | | | | | | [facility] | | | | | | MEDICAL | | | | | | CENTER - | | | | | | LABORATORY | | + +-------+ + + + | Platelet | 297 | 140 - 440 K/uL | [facility] | | | Count | | | [facility] | | | | | | MEDICAL | | | | | | CENTER - | | | | | | LABORATORY | | + +-------+ + + + | MPV | 7.6 | fL | [facility] | | | | | | [facility] | | | | | | MEDICAL | | | | | | CENTER - | | | | | | LABORATORY | | + +-------+ + + + | % | 68.7 | 45.0 - 82.0 % | [facility] | | | Neutrophils | | | [facility] | | | | | | MEDICAL | | | | | | CENTER - | | | | | | LABORATORY | | + +-------+ + + + | % | 23.2 | 20.0 - 45.0 % | [facility] | | | Lymphocytes | | | [facility] | | | | | | MEDICAL | | | | | | CENTER - | | | | | | LABORATORY | | + +-------+ + + + | % Monocytes | 5.5 | 4.0 - 12.0 % | [facility] | | | | | | [facility] | | | | | | MEDICAL | | | | | | CENTER - | | | | | | LABORATORY | | + +-------+ + + + | % | 1.6 | 0.0 - 5.0 % | [facility] | | | Eosinophils | | | [facility] | | | | | | MEDICAL | | | | | | CENTER - | | | | | | LABORATORY | | + +-------+ + + + | % Basophils | 1.0 | 0.0 - 1.0 % | [facility] | | | | | | [facility] | | | | | | MEDICAL | | | | | | CENTER - | | | | | | LABORATORY | | + +-------+ + + + | Absolute | 6.40 | 1.80 - 8.50 | [facility] | | | Neutrophils | | K/uL | [facility] | | | | | | MEDICAL | | | | | | CENTER - | | | | | | LABORATORY | | + +-------+ + + + | Absolute | 2.10 | 0.60 - 3.20 | [facility] | | | Lymphocytes | | K/uL | [facility] | | | | | | MEDICAL | | | | | | CENTER - | | | | | | LABORATORY | | + +-------+ + + + | Absolute | 0.50 | 0.00 - 1.00 | [facility] | | | Monocytes | | K/uL | [facility] | | | | | | MEDICAL | | | | | | CENTER - | | | | | | LABORATORY | | + +-------+ + + + | Absolute | 0.10 | 0.00 - 0.40 | [facility] | | | Eosinophils | | K/uL | [facility] | | | | | | MEDICAL | | | | | | CENTER - | | | | | | LABORATORY | | + +-------+ + + + | Absolute | 0.10 | 0.00 - 0.10 | [facility] | | | Basophils | | K/uL | [facility] | | | | | | MEDICAL | | | | | | CENTER - | | | | | | LABORATORY | | + +-------+ + + + + + | Specimen | + + | Blood | + + + + + + + | Performing | Address | City/State/Zipcode | Phone Number | | Organization | | | | + + + + + | [facility] | [address] | [place] | [phone] | | [facility] | | [address] | | | - LABORATORY | | | | + + + + + Basic Metabolic Panel (05/10/2016 3:42 PM PDT) + + + + + + | Component | Value | Ref Range | Performed | Pathologist | | | | | At | Signature | + + + + + + | Na | 133 (L) | 136 - 149 | [facility] | | | | | mmol/L | [facility] | | | | | | MEDICAL | | | | | | CENTER - | | | | | | LABORATORY | | + + + + + + | K | 3.9 | 3.5 - 5.1 | [facility] | | | | | mmol/L | [facility] | | | | | | MEDICAL | | | | | | CENTER - | | | | | | LABORATORY | | + + + + + + | Cl | 99 | 98 - 109 mmol/L | [facility] | | | | | | [facility] | | | | | | MEDICAL | | | | | | CENTER - | | | | | | LABORATORY | | + + + + + + | CO2 | 25 | 24 - 31 mmol/L | [facility] | | | | | | [facility] | | | | | | MEDICAL | | | | | | CENTER - | | | | | | LABORATORY | | + + + + + + | Anion Gap | 9 | 3 - 16 mmol/L | [facility] | | | | | | [facility] | | | | | | MEDICAL | | | | | | CENTER - | | | | | | LABORATORY | | + + + + + + | Glucose | 566 (H) | 70 - 109 mg/dL | [facility] | | | | | | [facility] | | | | | | MEDICAL | | | | | | CENTER - | | | | | | LABORATORY | | + + + + + + | BUN | 13 | 7 - 18 mg/dL | [facility] | | | | | | [facility] | | | | | | MEDICAL | | | | | | CENTER - | | | | | | LABORATORY | | + + + + + + | Creatinine | 0.92 | 0.60 - 1.30 | [facility] | | | | | mg/dL | [facility] | | | | | | MEDICAL | | | | | | CENTER - | | | | | | LABORATORY | | + + + + + + | eGFR if not | >60Comment: GLOMERULAR | >=60 | [facility] | | | | FILTRATION | mL/min/1.73m2 | [facility] | | | CROATIAN | RATE,ESTIMATED | | MEDICAL | | | | mL/min/1.00r2Yvch than | | CENTER - | | | | 60 Chronic kidney | | LABORATORY | | | | disease,if found over a | | | | | | 3-month period.Less than | | | | | | 15 Kidney failureFor | | | | | | | | | | | | Americans,multiply the | | | | | | calculated GFR by 1.21. | | | | | | | | | | + + + + + + | Calcium | 8.6 | 8.3 - 10.5 | [facility] | | | | | mg/dL | [facility] | | | | | | MEDICAL | | | | | | CENTER - | | | | | | LABORATORY | | + + + + + + | BUN/Creatin | 14.1 | | [facility] | | | ine Ratio | | | [facility] | | | | | | MEDICAL | | | | | | CENTER - | | | | | | LABORATORY | | + + + + + + + + | Specimen | + + | Blood | + + + + + + + | Performing | Address | City/State/Zipcode | Phone Number | | Organization | | | | + + + + + | [facility] | [address] | [place] | [phone] | | [facility] | | [address] | | | - LABORATORY | | | | + + + + + Culture, MRSA (05/10/2016 3:42 PM PDT) + + + + + + | Component | Value | Ref Range | Performed | Pathologist | | | | | At | Signature | + + + + + + | Culture | Negative for MRSA by | | [facility] | | | | chromogenic agar method | | [facility] | | | | | | MEDICAL | | | | | | CENTER - | | | | | | LABORATORY | | + + + + + + + + | Specimen | + + | Respiratory - Both | | anterior nares (body | | structure) | + + + + + + + | Performing | Address | City/State/Zipcode | Phone Number | | Organization | | | | + + + + + | [facility] | [address] | [place] | [phone] | | [facility] | | [id number] | | | - LABORATORY | | | | + + + + + documented in this encounter Visit Diagnoses + + | Diagnosis | + + | Cervical spondylosis with radiculopathy Cervical spondylosis with myelopathy | + + | Morbid obesity, unspecified obesity type (HCC) | + + | Depression, unspecified depression type | + + | Hyperlipidemia, unspecified hyperlipidemia type | + + | Hypothyroidism, unspecified type | + + | DIABETES MELLITUS, TYPE II, UNCONTROLLED, WITH COMPLICATIONS Type II or unspecified | | type diabetes mellitus with unspecified complication, uncontrolled | + + | THYROID CANCER Malignant neoplasm of thyroid gland | + + | Degenerative disc disease, cervical Degeneration of cervical intervertebral disc | + + | Foraminal stenosis of cervical region Spinal stenosis in cervical region | + + | Sleep apnea, obstructive Obstructive sleep apnea (adult) (pediatric) | + + documented in this encounter"
--- OUTSIDE RECORDS SUMMARY | ~2020-04-13 | XMS | Encounter Summary ---
Demographics + + + | Address | [address] | | | [place] [address] | + + + | Home Phone | | + + + | Preferred Language | Unknown | + + + | Marital Status | | + + + | Episcopalian Affiliation | CHR | + + + | Race | White | + + + | Ethnic Group | Not or | + + + Author + + + | Author | [facility] | + + + | Organization | [facility] | + + + | Address | Unknown | + + + | Phone | Unavailable | + + + Support + + + + + | Name | Relationship | Address | Phone | + + + + + | Tico Burns | ECON | [address] | | | | | [place], [place] | | | | | [address] | | + + + + + Care Team Providers + +------+ + | Care Front End Alignment Specialist Name | Role | Phone | + +------+ + | Moe Bella MD | PCP | | + +------+ + Reason for Visit + + + | Reason | Comments | + + + | History and physical | | | examination | | + + + Benefits Check [...] | | | | | | | [facility] | | [facility] | | | | | | | [facility], | | | | | | | [address] | | | | | | | [place], [place] | | | | | | | [address] | | | | | | | Phone: | | | | | | | [phone] | | | | | | | Fax: | | | | | | | [phone] | +--------+--------+ + + + + Encounter Details +--------+---------+ + + + | Date | Type | Department | Care Team | Description | +--------+---------+ + + + | 04/10/ | Office | [facility] | Jesus Fenton, | Panniculitis | | 2012 | Visit | Center at [facility] [address] | [address] | (Primary Dx) | | | | [address] | [place] | | | | | Mailcode: [facility] | [place], [place] | | | | | [facility] and | [address] | | | | | [facility] [address] | [phone] | | | | | [place], [place] | | | | | | [address] | | | | | | [phone] | | | +--------+---------+ + + + [...] + + + | Blood Pressure | 145/87 | 04/10/2013 12:04 PM | | | | | PDT | | + + + + + | Pulse | 86 | 04/10/2013 12:04 PM | | | | | PDT | | + + + + + | Temperature | 36.5 C (97.7 F) | 04/10/2013 12:04 PM | | | | | PDT | | + + + + + | Respiratory Rate | 16 | 04/10/2013 12:04 PM | | | | | PDT | | + + + + + | Oxygen Saturation | - | - | | + + + + + | Inhaled Oxygen | - | - | | | Concentration | | | | + + + + + | Weight | 218.5 kg (481 lb | 04/10/2013 12:04 PM | | | | 11.2 oz) | PDT | | + + + + + | Height | 175.3 cm (5' 9") | 04/10/2013 12:04 PM | | | | | PDT | | + + + + + | Body Mass Index | 71.13 | 04/10/2013 12:04 PM | | | | | PDT | | + + + + + documented in this encounter Patient Instructions Patient Instructions [place] Kenyon RN - 04/10/2013 12:26 PM PDTPATIENT SURGERY INFORMATION [facility] General Surgery Office Toll-free: [phone] Surgery Date: April 11, 2013 Procedure: Removal of fatty tumor of the lower abdomen Surgeon Name: Jesus Fenton MD DIRECTIONS FOR SURGERY DIET Nothing to eat or drink after midnight on the night prior to surgery. Your doctor will ins truct you on what medications to take the morning of surgery. Please note: Some surgeries may require additional dietary restrictions or a bowel preparation. Your jimenez rgical team will give you additional printed instructions should these be necessary. MEDICATIONS Unless otherwise directed by your provider, do not take any Aspirin, vitamin E or non-stero idal anti-inflammatory (NSAIDs i.e. Advil, Aleve, Ibuprofen) or herbal supplements seven day s prior to your surgery. These drugs may interfere with normal blood clotting and may cause excessive bleeding and bruising during or after the surgery. Please see the list below, [facility] has a list of products that contain Aspirin, Ibuprofen, or Vitamin E If you are taking Coumadin (warfarin), Plavix or any other blood thinners please let your s urgical team know as medication changes will be necessary. If you need a pain medication for general purposes, use Tylenol as directed. If you are in doubt about any medications that you are taking, please contact our office. PRE-OP BATHING/SHOWERING - HIBICLENS (Chlorhexidine Gluconate) Bath or shower the evening before and the morning of your surgery Use the bottle of Hibiclense soap for the evening cleansing and the bottle in the mor taco Wash from your neck to your toes. BE CAREFUL NOT TO WASH YOUR FACE OR HAIR WITH THIS SOLUT ION After your shower or bath do not apply lotions, powders, or deoderant SMOKING You should not smoke for four weeks prior to the procedure and two weeks after the procedur e. If you are a smoker, please speak with your provider. Smoking can significantly affect the outcome of your procedure. Smoking near the time of jimenez rgery causes a more acute narrowing of the blood vessels, which may lead to decreased blood flow to the tissue, poor healing, bad scars, or actual loss of tissue. WHEN TO ARRIVE On the day prior to surgery you will be notified of your check-in time by the Surgery Depar tment. They will call you between 3-7 pm. If you do not hear from anyone by 7 pm please call [phone]. PARKING Parking for patients is available underneath the [facility] building. Parking is also available in the [facility] Parking structure located across from the emergency depart ment; patient parking available on level 1 and 3. Metered parking is available on the [facility]. CHECKING IN FOR SURGERY Hospital Admission (in-patient): Admitting Desk 9th floor of [facility] TRANSPORTATION Day Surgery: If you have had any sedation, you cannot drive. In addition, you must have someone to amauri t you and stay with you overnight the day of your procedure. Hospital Admission: You will require transportation home on the day of discharge. Pain medications and physica l activity restrictions may limit your ability to drive safely. CANCELLING YOUR PROCEDURE Please notify the general surgery office at [phone] as soon as possible should you nee d to cancel or change your surgery date. We will attempt to reschedule your procedure in a timely manner however due to a limited amount of operating room time a waiting list is not u ncommon. ILLNESS Please call our office with any signs of illness such as cold, flu, infection, fever, or s kin rash/infection anytime prior to your surgery. PRODUCTS CONTAINING ASPIRIN [place], Anacin, Anexsia with Codeine, Andynos, Aspirin, Aspirin suppositories, Ascrip tin, Aspergum, Axotal, B-A-C, Baby Aspirin, Bekah, BC Powder, Bexophene, Buffaprin, Bufferin , Buffinol, Cama-Arthritis Strength, Congespirin, Dodge, Coricidin, Damason, Darvon, Dristan, Terra-Gesic, Digel, Dolprin #3 Tablets, Donatab, Doxaphene, Duragesic, Easprin, Ecotrin, Emag rin Forte, Emiprin, Emprazil, Equagesic, Equazine M, Excedrin, Fiogesic, Fiorgen PH, Fiorice t, Fiorinal, 4-Way Cold Tablet Gemnisyn, Indocin, Liquprin, Lortab ASA, Magnaprin, Marnal, Meprobamate, Midol, Momentum, N orgesic, Lincoln, Orphengesic, Pabalate, P-A-C, Percodan, Presalin, Robaxasil, Roxiprin, Sabino eto, Salocol SK-65 Compound, Sine-Aid, Sine-Off,, [place], Supac, Talwin Compound, Trigesic, Tolectin , Traiminicin, Vanquish, ZORprin, Zomax PRODUCTS CONTAINING IBUPROFEN Advil, Aleve, Haltran, Medipren, Midol, Motrin, Naproxyn, Nuprin, Rufen OTHER PRODUCTS WHICH MAY PROMOTE BLEEDING Vitamin E, Gingko Biloba, Marine Fatty Acids, [place]-3 Fish Oil SupplementsElectronically si gned by [place] Kenyon RN at 04/10/2013 12:27 PM PDT documented in this encounter Progress Notes Jesus Fenton MD - 04/17/2013 9:46 AM PDTI performed a history and physical examinati on of the patient and discussed his management with the resident. I reviewed the resident s note and agree with the documented findings and plan of care. JESUS FENTON MD [facility] [address] Mailcode: [place] [phone] Maurice Duran M D - 04/10/2013 12:08 PM PDT [facility] NOTE Date: 04/10/13 Author: Maurice Vang MD Attending: Dr. Fenton Reason for visit: Pre-Op S: Mr. Burns is a morbidly obese 48 yo M who underwent RYGB on 01/08/13. 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 The tumor is pendulous and interferes with walking, the tumor has also been changing shap e recently becoming more pendulous and more bothersome. Patient presents today for pre-op f or planned excision of his fatty tumor tomorrow. O: Filed Vitals: 04/10/2013 12:04 PM Height: 1.753 m (5' 9") Weight: 218.498 kg (481 lb 11.2 oz) BP: 145/87 Pulse: 86 Temp: 36.5 C (97.7 F) TempSrc: Oral Resp: 16 PainSc: 0 - Zero BMI: 71.1 kg/(m^2) Exam Gen - Good spirits. NAD CV - RRR Pulm - Distant but clear Abd - Obese and non-tender. Large pannus has dependant edema. Beneath the pannus is a pe ndulous fatty growth that is just left of midline this growth has dependant edema and hangs below the patient's knees. A: 48 yo M with a large fatty tumor of the low abdomen which inhibits walking and is painfu l. Patient wishes to have the tumor removed and is scheduled for this operation tomorrow. P: -A full PARQ was conducted and consent obtained for the above operation -Urology will be present to place a chau for the operation (patient's penis is burried in the growth) -PAT clinic this afternoon Maurice Vang MD Plastic Surgery [facility] documented in this e ncounter Plan of Treatment Not on filedocumented as of this encounter Visit Diagnoses + + | Diagnosis | + + | Panniculitis - Primary Panniculitis, unspecified site | + + documented in this encounter
--- OUTSIDE RECORDS SUMMARY | ~2020-04-13 | XMS | Encounter Summary ---
Demographics + + + | Address | [address] | | | [place] [address] | + + + | Home Phone | | + + + | Preferred Language | Unknown | + + + | Marital Status | | + + + | Taoism Affiliation | [id number] | + + + | Race | Unknown | + + + | Ethnic Group | Unknown | + + + Author + + + | Author | [facility] | | | and [place] | + + + | Organization | [facility] | | | and [place] | + + + | Address | Unknown | + + + | Phone | Unavailable | + + + Support + + + + + | Name | Relationship | Address | Phone | + + + + + | Milady Burns | ECON | [address] | | | | | [place] | | | | | [address] | | + + + + + Care Team Providers + +------+ + | Care Marketing Agent Name | Role | Phone | + +------+ + | Moe Bella MD | PCP | | + +------+ + Reason for Visit + + + | Reason | Comments | + + + | New Patient | | + + + | Back Pain | | + + + Evaluate & Treat (Routine) + +--------+ + + + + | Status | Reason | Specialty | Diagnoses / | Referred By | Referred To | | | | | Procedures | Contact | Contact | + +--------+ + + + + | Authorized | | Physical | Diagnoses | Shayne, | Fady, | | | | Medicine and | Other | Moe | Josué Wilkins MD | | | | Rehabilitatio | intervertebr | MD Shyam | [address] | | | | n | al disc | [address] | | | | | displacement | [place] | [place], [place] | | | | | , lumbar | [place], | [address] Phone: | | | | | [facility] | [place] [address] | [phone] | | | | | | Phone: | Fax: | | | | | | [phone] | [phone] | | | | | | Fax: | | | | | | | [phone] | | + +--------+ + + + + Encounter Details +--------+---------+ + + + | Date | Type | Department | Care Team | Description | +--------+---------+ + + + | 02/15/ | Office | [facility] [place] | Vannessa Taylor | Lumbar radiculopathy | | 2020 | Visit | PHYSIATRY [address] | [address] | (Primary Dx); [address] | | | | [address] | [address] | of lumbar disc | | | | [place], [place] | [address] [place], [place] | without myelopathy; | | | | [id number] | [address] | Morbid obesity with | | | | [phone] | | BMI of 60.0-69.9, | | | | | | adult ([facility]); | | | | | | Bilateral leg | | | | | | weakness | +--------+---------+ + + + Social History [...] + + +---------+ + | Yes | | | Rarely | + + +---------+ + + + [...] + + + | Blood Pressure | 140/94 | 02/16/2020 1:40 PM | | | | | PDT | | + + + + + | Pulse | 92 | 02/16/2020 1:40 PM | | | | | PDT | | + + + + + | Temperature | - | - | | + + + + + | Respiratory Rate | 16 | 02/16/2020 1:40 PM | | | | | PDT | | + + + + + | Oxygen Saturation | - | - | | + + + + + | Inhaled Oxygen | - | - | | | Concentration | | | | + + + + + | Weight | 199.6 kg (440 lb) | 02/16/2020 1:40 PM | | | | | PDT | | + + + + + | Height | 172.7 cm (5' 8") | 02/16/2020 1:40 PM | | | | | PDT | | + + + + + | Body Mass Index | 66.9 | 02/16/2020 1:40 PM | | | | | PDT | | + + + + + documented in this encounter Patient Instructions Patient Instructions Vannessa Taylor PA-C - 02/16/2020 1:40 PM PDTFormatting of thi s note might be different from the original. 1. Please have your surveillance sensor operator work with Dr. Daigle at [facility] inpatient re hab to help facilitate admission for your leg weakness, obesity, self-care and safety to be able to return home without falls. 2. Please be diligent in working towards improving your blood sugars with baking and boili ng food, avoiding excess sugar and fat. Common Spine and Disk Problems The most common serious back problemshappen when disks tear, bulge, or rupture. In such c ases, an injured disk can no longer cushion the vertebrae and absorb shock. As a result, the rest of your spine may also weaken. This can lead to pain, stiffness, and other symptoms. Torn annulus. A sudden movement may cause a tiny tear in an annulus. Nearby ligaments ma y stretch. Contained herniated disk. As a disk wears out, the nucleus may bulge into the annulus an d press on nerves. Extruded herniateddisk. When a disk ruptures, its nucleus can squeeze out and irritate a nerve. Arthritis. As disks wear out over time, bone spurs form. These growths can irritate nerv es and inflame facets. Instability. As a disk stretches, the vertebrae slip back and forth. This can put pressu re on the annulus. Spondylolisthesis.Thisis a condition in which one vertebra has moved forward or back brown, in relation to the one above or below it. Thiscauses a crack (stress fracture) in th e areas that link the vertebrae together. This may put pressure on the annulus, stretch the disk, and irritate nerves. Date Last Reviewed: 04/05/201819991034-1411 The [employer]. [address] [place] [address]. All righ ts reserved. This information is not intended as a substitute for professional medical care. Always follow your healthcare professional's instructions. documented in this encounter Progress Notes Vannessa Taylor PA-C - 02/16/2020 1:40 PM PDTFormatting of this note might be diffe rent from the original. Jorge Taylor PA-C [address] [place] [address], [address] [place] [address] PHONE: FAX: PHYSIATRY HISTORY AND PHYSICAL EXAMINATION CHIEF COMPLAINT: Chief Complaint Patient presents with New Patient Back Pain HISTORY OF PRESENT ILLNESS: The patient is a 54 y.o. male with the complaint of back, righ t lower leg symptoms that began in September 2019. The patient describes symptom onset follo wing no particular incident. The symptoms have been rapidly worsening. He reports about 2 months ago he was able to walk stairs and about 1 month ago he was able to transfer between rooms only. In the last month he has become dependent on a wheelchair is unable to care for him. his voices significant stress at home because he is unable to bathe for the last 4 months or care for himself. He rates the pain as moderate and rated a 2 8/10 primarily in the low back with improveme nt in right lower extremity pain since having a few physical therapy sessions at [facility]. The symptoms are daily and predominantly include weakness of the legs causes falls. He describes the pain as numbing, pulsating and sharp. The patient describes leg symptoms that occur on right side. The leg symptoms account for greater than or equal to 50% of his symptoms. The leg symptoms are persistent . The patien t also describes weakness in the left leg, uncontrolled diabetes with blood sugars running 3 -400 and a history of peripheral neuropathy. Patient previously has had gastric bypass and currently has a BMI of 66.9. Right now he denies any active dietary counseling or weight lo ss program. The patient does report any change in bowel or bladder function recently. His symptoms improve with rest and changing position. His symptoms worsen with standing. He has tried PT and NSAIDS. Patient has been approved for inpatient halfway and wa s referred to neurosurgery at [facility] she anticipates in May. . PAST MEDICAL HISTORY: Past Medical History: Diagnosis Date Anxiety Arthritis Cancer (HCC) thyroid Cataract Cerebral artery occlusion with cerebral infarction (HCC) Depression Diabetes mellitus, type 2 (HCC) Erythema nodosum Glaucoma Herniation of right side of L4-L5 intervertebral disc High cholesterol History of CVA (cerebrovascular accident) Hyperlipidemia Hypertension Hypothyroidism Leg sore Lumbosacral radiculopathy at L4 Nephrolithiasis Nerve root and plexus disorder Numbness 2007 Hands and Feet Obesity Papillary thyroid carcinoma (HCC) Stage I, Goal TSH <1 Primary osteoarthritis of left shoulder Sleep apnea uses CPAP Spondylosis without myelopathy or radiculopathy, cervical region Stroke (HCC) 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 (HCC) PAST SURGICAL HISTORY: Past Surgical History: Procedure Laterality Date CERVICAL SPINE SURGERY N/A 06/01/2016 Procedure: C4-5, C5-6, C6-7 Anterior Cervical Discectomy Fusion; Surgeon: Chauncey Lee MD ; Location: [facility] D[facility]AL SURGERY Root and crown placement GASTRIC BYPASS SURGERY 12/26/2006 Attempted that resulted in small bowel resection - Dr Armando Braden; KENYA Ye GASTRIC RESECTION SURGERY 2014 GROIN SURGERY 07/04/2017 Tumor Removal - ; LIPOMA REMOVAL 04/10/2013 Dr Vang NECK SURGERY SLEEVE GASTROPLASTY 01/08/2013 Nayan, [facility] Dr Perez THYROIDECTOMY 07/2011 CURRENT MEDICATIONS: Current Outpatient Medications Medication Sig Dispense Refill acetaminophen (TYLENOL) 500 mg tablet Take 1,000 mg by mouth nightly as needed. aspirin 81 MG tablet Take 81 mg by mouth Daily. atorvaSTATin (LIPITOR) 80 MG tablet Take 1 tablet by mouth nightly. TOMAS MICROLET LANCETS MISC Use as directed buPROPion (WELLBUTRIN XL) 300 mg 24 hr tablet Take 300 mg by mouth every morning. calcium citrate-vitamin D3 (CITRACAL PETITES/VITAMIN D) 200-250 mg-unit tablet Take by mouth. cephalexin (KEFLEX) 500 mg capsule Take 1 capsule by mouth 4 (four) times daily. cloNIDine (CATAPRES) 0.1 mg tablet Take by mouth. Cyanocobalamin (VITAMIN B12) 1000 MCG TBCR Take 1,000 Units by mouth Once a week. cyclobenzaprine (FLEXERIL) 10 mg tablet Take 1 tablet by mouth every 8 hours as needed for Muscle spasms. (Patient not taking: Reported on 02/16/2020) 90 tablet 3 ergocalciferol (ERGOCALCIFEROL) 85430 UNITS capsule Take 50,000 Units by mouth Once a w galena. (Patient not taking: Reported on 02/16/2020) FLUoxetine (PROZAC) 20 mg capsule Take 20 mg by mouth Daily. (Patient not taking: Repor lou on 02/16/2020) gabapentin (NEURONTIN) 300 mg capsule Take 900 mg by mouth 2 times daily. Glucose Blood (TOMAS BREEZE 2 TEST) DISK Use as directed (Patient not taking: Reported on 02/16/2020) ibuprofen (ADVIL,MOTRIN) 800 MG tablet Take 800 mg by mouth nightly as needed. insulin glargine (LANTUS) 100 units/mL injection (vial) Inject 40 Units under the skin 2 times daily. As directed. insulin lispro (HUMALOG) 100 units/mL injection (vial) Inject 10 Units under the skin 3 times daily. And sliding scale. lactulose 10 g/15 mL solution Take by mouth Daily as needed. LEVOTHYROXINE SODIUM PO Take 500 mcg by mouth Daily. liraglutide (VICTOZA) 18 mg/3 mL injection Inject 1.8 mg under the skin Daily as needed . losartan-hydrochlorothiazide (HYZAAR) 100-25 MG per tablet Take 100-25 mg by mouth Arya y. metFORMIN (GLUCOPHAGE-XR) 500 mg 24 hr tablet Take 1,000 mg by mouth Daily. metoprolol tartrate (LOPRESSOR) 100 mg tablet Take 100 mg by mouth 2 times daily. Multiple Vitamin (MULTIVITAMIN) capsule Take by mouth. Pediatric Multiple Vit-C-FA (CHILDRENS CHEWABLE VITAMINS) CHEW Take 1 Tab by mouth two times daily. polyethylene glycol (MIRALAX) powder Take by mouth. rosuvastatin (CRESTOR) 40 MG tablet Take 40 mg by mouth Daily. No current facility-administered medications for this visit. ALLERGIES: Allergies Allergen Reactions Gadolinium Derivatives Other (See Comments) Sneezing and some redness around the eyes after the administration of 25 mL MRI contrast (Multihance) on 03/06/18 Codeine Sulfate Itching and Rash SOCIAL HISTORY: The patient reports that he has never smoked. He has never used smokeless tobacco. He repo rts current alcohol use. He reports that he does not use drugs. FAMILY HISTORY: Family History Problem Relation Age of Onset Arthritis Mother Arthritis Father Cancer Other Diabetes Other Heart disease Other No known problems Son No known problems Son No known problems Son No known problems Child No known problems Child No known problems Child No known problems Child No known problems Child Hypertension Paternal Grandfather Colon cancer Maternal Grandfather No known problems Maternal Aunt Diabetes Maternal Aunt Diabetes, NIDDM Maternal Aunt No known problems Sister No known problems Brother No known problems Maternal Grandmother No known problems Paternal Grandmother Prostate cancer Other Depression Other Heart attack Other High cholesterol Other Osteoporosis Other Stroke Other Thyroid disease Other REVIEW OF SYSTEMS: GENERALLY: No fever, no night sweats, no anemia, no fatigue, no recent profound weight ch anges. EYES: No eye problems, no impaired sight, no use of corrective lenses, no eye injury, no d ouble vision, no transient blindness. EARS, NOSE, AND THROAT: No changes in taste or smell, no hearing difficulty, no ringing in the ears, no ear drainage, no ear injury, no dizziness, no voice changes, no difficulty swa llowing, no significant snoring, no sleep apnea/CPAP, no sinus problems, no major dental wor k. NEUROLOGICALLY: Please see the review of systems discussed above in the history of present illness. In addition, He has numbness/pain of legs, awake with numbness/pain, weakness, ch sukhdev in walk, pain in back. PSYCHIATRIC: No depression, no difficulty sleeping, no anxiety, no bipolar disorder. CARDIOVASCULAR: No heart attacks, no heart murmur, no heart fluttering, no chest pain, no ankle swelling. LUNG DISEASE: No shortness of breath, no cough, no tuberculosis, no bloody cough, no asthm a, no emphysema/COPD. GASTROINTESTINAL: No bowel disease, no nausea or vomiting, no rectal bleeding, no constipa tion, no fecal stool incontinence, no liver/gallbladder disease, no abdominal pain, no ulcer s. KIDNEY DISEASE: No urinary frequency, no painful or difficult urination, no urinary incont inence, no bladder problems, no impotence. ENDOCRINE: diabetes, no thyroid disease, no osteopenia or osteoporosis, no breast drainag e. SKIN: No breast lumps, no skin disease or skin changes, no rashes/itches. HEMATOLOGIC/LYMPHATIC: No enlarged lymph nodes, no easy or unusual bleeding, no personal h istory of cancer. RHEUMATOLOGIC: No joint pain/arthritis, no rheumatoid arthritis. PHYSICAL EXAMINATION: Blood pressure (!) 140/94, pulse 92, resp. rate 16, height 1.727 m (5' 8"), weight (!) 199. 6 kg (440 lb). Body mass index is 66.9 kg/m. GENERAL: Gerard Burns is in no acute distress with unlabored respirations. He does not appear uncomfortable throughout the exam today. HEENT: Head: Normocephalic/atraumatic with no areas of recent trauma. Eyes: Normal sclerae without icterus. Ears: No drainage or tenderness. Nasopharynx: Clear without drainage. Oropharynx: Clear without erythema. NECK (ANTERIOR): Supple and without palpable masses. CHEST: Unlabored respirations HEART: No lower extremity edema noted ABDOMEN: Soft, non-tender, non-distended, and without palpable masses. The patient is morb idly obese and confined to a wheelchair. NEUROLOGICAL: The patient is awake, alert, and oriented to time, place, person. He follows simple and complex commands. His speech is fluent. He comprehends speech well. He has no apparent deficits with short or lobsterman memory. Cranial nerves 2-12 appear grossly intact. EXTREMITIES: No cyanosis, clubbing, or edema. Distal pulses are palpable. PHYSICAL EXAM: MENTAL STATUS: He is awake, alert, and oriented. He follows simple and complex commands. His speech is fluent, he comprehends speech well, and he repeats well. He has no apparent deficits with short or lobsterman memory. CRANIAL NERVES: II: Acuity is intact. Gonzalez are full to confrontation. III, IV, : The pupils are reactive. Extraocular movements are intact. No ptosis is note d. V: Facial sensation is intact and symmetric. VII: Facial movements are symmetric. VIII: Hearing is intact bilaterally. IX, X: The uvula and palate move appropriately. XI: Shrug is equal bilaterally. XII: Tongue protrusion is midline. MOTOR EXAM: (5 IS NORMAL) * Indicates pain limited MUSCLE/ MOVEMENT: RIGHT LEFT Deltoids 5 5 Biceps 5 5 Triceps 5 5 Wrist Flexion 5 5 Wrist Extension 5 5 Median Intrinsics 5 5 Ulnar Intrinsics 5 5 Cook Fry Strength 5 5 Hip Flexion 3 5 Hip Extension 5 5 Knee Flexion 4- 4+ Knee Extension 5 4+ Dorsiflexion 4- 3 Extensor Hallicus Longus 5 5 Plantarflexion 5 5 SENSORY EXAM: Sensory exam shows diminished sensation to light touch circumferentially from the toes to t he ankles in a stocking distribution. REFLEXES: (2 OR 2+ IS NORMAL) REFLEX: RIGHT LEFT Unable to assess reflexes due to body habitus and confinement to wheelchair that is too sma ll for him with very little free movement. GAIT: Patient is unable to ambulate safely in room due to body weight was not asked to get out o f his chair. PERIPHERAL NERVE/MISC: Straight leg raise is negative bilaterally. Passive range of motion was used to assess str aight leg raise on the right due to leg weakness. Ramon's test of the hips is negative bilaterally but fairly significantly limited by body habitus and pannus that extends almost to the knee. TEST AND RADIOGRAPHIC REVIEW: His imaging was reviewed in detail today during the visit. The MRI from 12/23/2019 shows L1 -3 milliliter retrolisthesis with disc bulge. L2-3 disc bulge with facet subluxation. L3-4 facet fluid. L4-5 disc bulge to the right slightly touching the exiting L4 nerve root. ASSESSMENT: NEUROSURGICAL DIAGNOSES: Encounter Diagnoses Name Primary? Lumbar radiculopathy Yes Bulge of lumbar disc without myelopathy Morbid obesity with BMI of 60.0-69.9, adult (HCC) Bilateral leg weakness GENERAL DIAGNOSES: Past Medical History: Diagnosis Date Anxiety Arthritis Cancer (HCC) thyroid Cataract Cerebral artery occlusion with cerebral infarction (HCC) Depression Diabetes mellitus, type 2 (HCC) Erythema nodosum Glaucoma Herniation of right side of L4-L5 intervertebral disc High cholesterol History of CVA (cerebrovascular accident) Hyperlipidemia Hypertension Hypothyroidism Leg sore Lumbosacral radiculopathy at L4 Nephrolithiasis Nerve root and plexus disorder Numbness 2007 Hands and Feet Obesity Papillary thyroid carcinoma (HCC) Stage I, Goal TSH <1 Primary osteoarthritis of left shoulder Sleep apnea uses CPAP Spondylosis without myelopathy or radiculopathy, cervical region Stroke (HCC) 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 Patient is a 54-year-old with a very complex case of mobility dysfunction from combination of morbid obesity with BMI of 66.9, uncontrolled diabetes, lower extremity weakness is not entirely justified by his lumbar MRI. I suspect that the L4-5 disc bulge th at contacts the exiting L4 right nerve may be complicated when he is upright due to the shee r weight of his abdominal pannus. 1) Today we discussed the patient's differential diagnosis with the likely primary issue be ing obesity driven lower extremity weakness, possible L4 nerve compression on the right with uncontrolled diabetes patient's description of symptoms, physical exam, and imaging suggest this diagnosis at this time. 2) I counseled patient on treatment options which included conservative self management usi ng OTC NSAIDs/Ice and heat packs, physical therapy, prescription medications, epidural stero id injection, as well as possible surgical intervention. Patient was informed that neurosur shelby would most likely want his BMI to be 35 or less and injection options are extremely dunn ited due to back stable weight of about 350 pounds and limitations of needle length to acces s the spine. Patient would also be contraindicated to having steroids administered for inje ctions because of his uncontrolled diabetes and blood glucose running 300-400. 3) Imaging: As descibed above in radiology review. 4) The patient has had significant conservative care including medications (NSAIDS and narc otics), PT. Unfortunately Gerard Burns continues to have significant disability and inability to care for himself at home. He does not have access to home health that would be able to bathe him. His says that it is essentially impossible to even roll him over i n the bed. I recommend that the patient be considered for inpatient rehab. I consulted Dr. Daigle at [facility] for inpatient rehab consultation. He asked that if the ethan maurice meets criteria having failed home health that a referral be placed to him. Patient ag barbi to help facilitate this by discussing this with his insurance counselor. I did feel that Gerard Burns would be a good candidate for intensive weight loss to help reduce weight on his spine. I do not think he would be a good candidate for neuros urgery or spinal injections. 5) Patient will follow up with me as needed. 6) If current treatment plan is insufficient for symptom relief we could try comprehensive weight loss management program along with physical therapy as the next therapy option. I spent 30 minutes in visit with Gerard Burns today with the majority of time spent counselling the patient on his diagnosis, options for his care, and coordinating his care. 02/16/20 ELECTRONICALLY SIGNED BY: Jorge Taylor PA-C, 02/16/2020 2:31 PM documented in this encounter Plan of Treatment Not on filedocumented as of this encounter Visit Diagnoses + + | Diagnosis | + + | Lumbar radiculopathy - Primary Thoracic or lumbosacral neuritis or radiculitis, | | unspecified | + + | Bulge of lumbar disc without myelopathy Displacement of lumbar intervertebral disc | | without myelopathy | + + | Morbid obesity with BMI of 60.0-69.9, adult (HCC) | + + | Bilateral leg weakness Other musculoskeletal symptoms referable to limbs | + + documented in this encounter
--- OUTSIDE RECORDS SUMMARY | ~2020-04-13 | XMS | Encounter Summary ---
Demographics + + + | Address | [address] | | | [place] [address] | + + + | Home Phone | | + + + | Preferred Language | Unknown | + + + | Marital Status | | + + + | Anabaptism Affiliation | CHR | + + + | Race | White | + + + | Ethnic Group | Not or | + + + Author + + + | Author | [facility] | + + + | Organization | [facility] | + + + | Address | Unknown | + + + | Phone | Unavailable | + + + Support + + + + + | Name | Relationship | Address | Phone | + + + + + | Tico Burns | ECON | [address] | | | | | [place], [place] | | | | | [address] | | + + + + + Care Team Providers + +------+ + | Care Machinist Bench Name | Role | Phone | + [...] + | Closed | | Surgery | Diagnoses | Kira, | Chris | | | | | Bariatric | Mckenna Parry, | MD Jesus | | | | | surgery | [address] | [address] | | | | | status | [address] | [address] | | | | | Procedures | Claudette Wright | Kyle Malta, | | | | | CONSULT TO | [place], [place] | [place] | | | | | BARIATRIC | [address] | [address] | | | | | SURGERY | Phone: | Phone: | | | | | | [phone] | [phone] | | | | | | Fax: | Fax: | | | | | | [phone] | [phone] | +--------+--------+ + + + + Reason for Visit + + + | Reason | Comments | + + + | New patient | panniculectomy. | | consultation | | + + + Consultation (Routine) +--------+--------+ + + + + | Status | Reason | Specialty | Diagnoses / | Referred By | Referred To | | | | | Procedures | Contact | Contact | +--------+--------+ + + + + | Closed | | Plastic | Diagnoses | Shayne, | Peterson, | | | | Surgery | | Moe Fowler, | MD Mary Ann | | | | | Panniculitis | [address] | | | | | | [place] | [address] | | | | | | [address] | [address] [facility], | | | | | | [place], | [place] | | | | | | [place] [address] | [address] | | | | | | Phone: | Phone: | | | | | | [phone] | [phone] | | | | | | Fax: | Fax: | | | | | | [phone] | [phone] | +--------+--------+ + + + + Encounter Details +--------+---------+ + + + | Date | Type | Department | Care Team | Description | +--------+---------+ + + + | 01/12/ | Office | Plastic and | Mary Ann Winkler, | BMI 60.0-69.9, adult | | 2017 | Visit | Reconstructive | [address] | ([facility]) (Primary Dx); | | | | Surgery at [facility] [address] | Edema, unspecified | | | | [address] | [place], [place] | type; Sleep apnea, | | | | Mailcode: [facility] | [address] | unspecified type; | | | | [facility] | [phone] | Secondary | | | | and Healing, | | hypertension; | | | | Building | | Ramona infection of | | | | Floor [facility] [place] | | flexural skin | | | | [address] | | | | | | [phone] | | | +--------+---------+ + + + [...] + + + | Blood Pressure | 152/95 | 01/12/2017 1:50 PM | | | | | PST | | + + + + + | Pulse | 116 | 01/12/2017 1:50 PM | | | | | PST | | + + + + + | Temperature | - | - | | + + + + + | Respiratory Rate | 16 | 01/12/2017 1:50 PM | | | | | PST | | + + + + + | Oxygen Saturation | 95% | 01/12/2017 1:50 PM | | | | | PST | | + + + + + | Inhaled Oxygen | - | - | | | Concentration | | | | + + + + + | Weight | 199.1 kg (439 lb) | 01/12/2017 1:50 PM | | | | | PST | | + + + + + | Height | 172.7 cm (5' 8") | 01/12/2017 1:50 PM | | | | | PST | | + + + + + | Body Mass Index | 66.75 | 01/12/2017 1:50 PM | | | | | PST | | + + + + + documented in this encounter Patient Instructions Patient Instructions Mary Ann Winkler MD - 01/12/2017 2:30 PM PSTReferred the patient back to bariatric surgery for a Dillon-en-Y gastric bypass surgery. documented in this encounter Progress Notes Mary Ann Winkler MD - 01/12/2017 2:30 PM PSTI was present with the resident during the his tory and exam. I discussed the case with the resident and agree with the findings and plan as documented in the resident s note. Gerard Burns is a 51 year old male status post open sleeve gastrectomy in 2012 with about 100 pound weight lost. His weight has been relatively stable since last year. The p atient's current body mass index is 66.75. His last hemoglobin A1C was 14. Physical exam s howed a 23 cm panniculus, protuberant abdomen, active intertriginous skin rashes along his a bdominal skin fold with the significant moisture between the skin folds. Previous well-hea led suprapubic scar. Bilateral lower extremity wooden edema. Recommend patient to proceed with a Dillon-en-Y gastric bypass surgery lost more weight. Misael n for a panniculectomy with removal of his umbilicus once he loss more weight and his hemogl obin A1c is less than 7. Rx Nystatin powder to control his active intertriginous skin rashe s. Follow-up in plastic surgery clinic in a year after his Dillon-en-Y gastric bypass surgery . Peterson Reese MD PLASTIC AND RECONSTRUCTIVE SURGERY AT [facility] [address] Mail Code: [place] [address] ymon, Mckenna Parry MD - 01/12/2017 2:30 PM PST Plastic Surgery Clinic Note Author: Mckenna Trevino MD Attending Physician: Mary Ann Jurado MD 01/12/2017 Reason for Visit: Consult for panniculectomy History of Present Illness: Gerard Burns is a 51 y.o. male With prior history of g astric sleeve bypass by Dr Laurent in 2012. He has lost approximately 100 lbs since the surge ry, and weight has a stabilized over the past year. He also had a panniculectomy of a "Tumor " with pathology consistent with fibrous adipose tissue. He suffers from intertriginous rash es, every month, which last 3-4 days. He manages the moisture with corn starch 3-4 times per day, and pain management. He reports that the hygiene of his skin folds are difficult to ma nage and the odor is bothersome. He has used nystatin powder in the past. He also has an inv erted penis that makes it difficult to urinate. His comorbidities include KARELY on CPAP, DM2, last A1C 14-15. Takes insulin, humalog 24 U TID and glargine 90 U qhs. He finds his blood sugars difficult to control when he is stressed, which he has been recently. He reports that he eats protein, vegetables, and has cut back on carbohydrate. He has a history of thyroid CA s/p total thyroidectomy. His cholesterol is co ntrolled with medication. He has HTN (typically SBP in 130s), but no history of cardiac dise ase. He has history of DVTs. PMH: Past Medical History: Diagnosis Date Cancer (HCC) 2011 Depressed 2011 Diabetes mellitus (HCC) 2006 Diabetes mellitus type II High cholesterol HTN (hypertension) Intertriginous candidiasis Leg sore Numbness 2007 hands and feet Sleep apnea on CPAP Thyroid disease 2010 PSH: Past Surgical History Procedure Laterality Date Thyroid removal Gastric bypass attempted Sleeve resection of stomach 01/2013 open [facility]/ [place] Fatty tumor excision 04/11/2013 Lower abdomen Medications: Aspirin 81 mg Oral Tablet, Take 81 mg by mouth once daily. Calcium Citrate-Vitamin D3 (CITRACAL + D PETITES) 200 mg calcium -250 unit Oral tablet, Konrad e 2 Tabs by mouth two times daily. Start 2 weeks after surgery. Indications: Hypocalcemia P revention cloNIDine 0.1 mg Oral Tablet, Take 0.1 mg by mouth two times daily. cyanocobalamin 1,000 mcg/mL Injection Solution, Inject 1,000 mcg into the muscle (IM) every thirty days. Indications: Prevention of Vitamin B12 Deficiency FLUoxetine (PROZAC) 20 mg Oral Capsule, Take 20 mg by mouth two times daily. gabapentin 300 mg oral capsule, Take 300 mg by mouth three times daily. insulin glargine 100 unit/mL Subcutaneous Solution, Inject 35 Units under the skin (SUBC) o nce daily at bedtime. Recommend the 35 units, check CBG. May increase up to 50 if CBG incre ased per PCP Indications: TYPE 2 DIABETES MELLITUS insulin lispro 100 unit/mL Subcutaneous Solution, Inject 12 Units under the skin (SUBC) thr ee times daily with meals. Indications: TYPE 2 DIABETES MELLITUS insulin lispro 100 unit/mL Subcutaneous Solution, Use 2 units for 141-200, 4 units for 201- 250, 6 units for 251-300, nj your doctor if > Indications: TYPE 2 DIABETES MELLITUS LOSARTAN/HYDROCHLOROTHIAZIDE (HYZAAR ORAL), Take by mouth. metFORMIN SR 500 mg Oral tablet extended release 24 hr, Take 4 Tabs by mouth once daily. Ad sales office assistant with evening meal. Indications: TYPE 2 DIABETES MELLITUS metoprolol tartrate 100 mg Oral Tablet, Take 100 mg by mouth two times daily. multivitamin Oral capsule, Take 1 Cap by mouth once daily. Indications: VITAMIN DEFICIENCY pediatric multivitamin chewable (CHILDRENS CHEWABLE VITAMINS) Oral tablet, chewable, Take 1 Tab by mouth two times daily. polyethylene glycol 17 gram/dose Oral Powder, Take 17 g by mouth once daily as needed (No B M in past 3 days). Indications: CONSTIPATION ursodiol 300 mg Oral capsule, Take 1 Cap by mouth two times daily. Start Actigall 2 weeks a fter surgery. Indications: Cholelithiasis Prevention Allergies: Allergies Allergen Reactions Codeine Rash Rash all over arms SH: Lives in [place], [place] with his and grandson. 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 Den ies tobacco, rare EtOH consumption, denies recreational drugs. FH: Family History Problem Relation Arthritis Father Review of Systems: A complete review of systems is as per the HPI above, but is otherwise n egative. OBJECTIVE: Vitals: BP 152/95 | Pulse 116 | RR 16 | Ht 1.727 m (5' 8") | Wt 199.1 kg (439 lb) | SpO2 95% | BMI 66.75 kg/(m^2) Physical Exam: General: Obese male, NAD Cardiovascular: Tachy rate, regular rhythm Respiratory: CTAB Abdomen: Large obese abdomen with midline vertical incisional scar. Lateral skin excess and large pannus (143x23 cm), large mons, with active erythematous candidal rash within the ski n folds and moisture. Inverted penis. Malodorous Extremities: Pitting edema, evidence of venous stasis Labs/Cultures/Pathology: Reviewed in [facility] Imaging/Diagnostic Studies: Reviewed in [facility] ASSESSMENT: Gerard Burns is a 51 y.o. male patient who presents for evaluation for panniculecto my. He has chronic intertriginous rashes which would benefit from panniculectomy, however he will have a much better result and lower risk of surgery with further weight loss and gina r control of his blood sugars. These goals may be achieved with conversion of gastric sleeve to dillon-en-y bypass. PLAN: 1. Referral to bariatric surgery for Dillon-en-y 2. eRx Nystatin powder 3. Low carb, high protein diet 4. Return to clinic when achieved further weight loss and Hgb A1c decreased to a range that will decrease risk of wound complications, <7 Dr. Mary Ann Winkler [facility] Support General has seen and examined the patient and agrees with the above plan. Mckenna Trevino MD PLASTIC AND RECONSTRUCTIVE SURGERY AT [facility] [address] Mail Code: [place] [address] documented in this e ncounter Plan of Treatment Not on filedocumented as of this encounter Visit Diagnoses + + | Diagnosis | + + | BMI 60.0-69.9, adult (HCC) - Primary Body Mass Index 60.0-69.9, adult | + + | Edema, unspecified type | + + | Sleep apnea, unspecified type | + + | Secondary hypertension Other secondary hypertension, unspecified | + + | Ramona infection of flexural skin Candidiasis of skin and nails | + + documented in this encounter
--- OUTSIDE RECORDS SUMMARY | ~2020-04-13 | XMS | Encounter Summary ---
Demographics + + + | Address | [address] | | | [place] [address] | + + + | Home Phone | | + + + | Preferred Language | Unknown | + + + | Marital Status | | + + + | Uatsdin Affiliation | CHR | + + + | Race | White | + + + | Ethnic Group | Not or | + + + Author + + + | Author | [facility] | + + + | Organization | [facility] | + + + | Address | Unknown | + + + | Phone | Unavailable | + + + Support + + + + + | Name | Relationship | Address | Phone | + + + + + | Tico Burns | ECON | [address] | | | | | [place], [place] | | | | | [address] | | + + + + + Care Team Providers + +------+ + | Care Chief Hydroelectric Station Operator Name | Role | Phone | + +------+ + | Moe Bella MD | PCP | | + +------+ + Reason for Visit +---------+ + | Reason | Comments | +---------+ + | Post Op | | +---------+ + Encounter Details +--------+---------+ + + + | Date | Type | Department | Care Team | Description | +--------+---------+ + + + | 05/15/ | Office | Digestive Health | Harpreet Fenton, | Follow-up | | 2012 | Visit | [facility] at [facility] [address] | [address] | examination after | | | | [address] | [address] | gastrointestinal | | | | Mailcode: Center | [place], [place] | surgery (Primary Dx) | | | | for Health and | [address] | | | | | [facility] [address] | [phone] | | | | | [place], [place] | | | | | | [address] | | | | | | [phone] | | | +--------+---------+ + + + [...] + + + | Blood Pressure | 133/73 | 05/15/2013 1:33 PM | | | | | PDT | | + + + + + | Pulse | 69 | 05/15/2013 1:33 PM | | | | | PDT | | + + + + + | Temperature | 36.7 C (98 F) | 05/15/2013 1:33 PM | | | | | PDT | | + + + + + | Respiratory Rate | 16 | 05/15/2013 1:33 PM | | | | | PDT | | + + + + + | Oxygen Saturation | - | - | | + + + + + | Inhaled Oxygen | - | - | | | Concentration | | | | + + + + + | Weight | 204.8 kg (451 lb 6.4 | 05/15/2013 1:33 PM | | | | oz) | PDT | | + + + + + | Height | 175.3 cm (5' 9") | 05/15/2013 1:33 PM | | | | | PDT | | + + + + + | Body Mass Index | 66.66 | 05/15/2013 1:33 PM | | | | | PDT | | + + + + + documented in this encounter Progress Notes Harpreet Fenton MD - 05/26/2013 11:52 AM PDTI performed a history and physical examinati on of the patient and discussed his management with the resident. I reviewed the resident s note and agree with the documented findings and plan of care. HARPREET FENTON MD [facility] [address] Mailcode: [place] [address] Salvatore Felipe MD - 05/15/2013 6:01 AM PDTFormatting of this note might be different from the or iginal. GENERAL SURGERY POSTOP FOLLOW UP DATE OF VISIT: 05/15/2013 Gerard Burns is a 48 y.o. male here for postop check one month (04/11/2013) s/p exc ision of fatty tumor, lower abdomen, with pathology revealing chronic cellulitis and fibrosi s. Mr. Burns underwent gastric bypass surgery in 01/2013. The patient had lost 30lbs prior to that operation at time of 04/11 procedure weighed 480lbs (down from 580lbs). The patient had significant enlargement of his mons area which become pendulous over time and was hangin g below his knees making walking difficult. This fatty tumor lies entirely anterior to the g enitals causing burried penis and difficulty accessing the penis for urination. The patient was therefor indicated for resection of this large fatty overgrowth. SURGICAL PATHOLOGY: SOURCE OF SPECIMEN:A Pannus Final Pathologic Diagnosis: Pannus, pannectomy: - Pannus with chronic cellulitis and fibrosis - Seborrheic keratosis INTERVAL HISTORY: At 04/24 postop check he presented with wound dehiscence, serous drainage , negative cellulitis. Local wound care recommended and no antibiotics were given TODAY IN CLINIC He is doing ok, denies pain, has some discomfort in the pubic area along wi th swelling and some foul discharge. He denies fevers or chills. Past Surgical History Procedure Laterality Date Thyroid removal Gastric bypass attempted Sleeve resection of stomach 01/2013 Fatty tumor excision 04/11/2013 Lower abdomen VITAL SIGNS: BP 133/73 | Pulse 69 | Temp (Src) 36.7 C (98 F) (Oral) | RR 16 | Ht 1.753 m (5' 9") | W t 204.754 kg (451 lb 6.4 oz) | BMI 66.63 kg/(m^2) SURGICAL SITE: Healing in a secondarv intention fashion, has minimal purulent discharge an d has erythema and edema in the lower abdomen and upper tights. IMPRESSION: A(n) 48 y.o. male s/p excision of fatty tumor, lower abdomen, with pathology revealing chronic cellulitis and fibrosis doing better than his last visit. He was advised t o continue with the wound care (washing it with wather and soap twice a day and keep it as c lean as possible. We wont give antibiotics at this point. He will return to clinic in 3 mimi hs. He is able to return to work PLAN: -RTC in 3 months -fentamine prescription The patient was seen by Dr. Fenton who agrees with the plan. SALVATORE HOWARD MD documente d in this encounter Plan of Treatment Not on filedocumented as of this encounter Visit Diagnoses + + | Diagnosis | + + | Follow-up examination after gastrointestinal surgery - Primary Follow-up examination, | | following other surgery | + + documented in this encounter
--- OUTSIDE RECORDS SUMMARY | ~2020-04-13 | XMS | Encounter Summary ---
Demographics + + + | Address | [address] | | | [place] [address] | + + + | Home Phone | | + + + | Preferred Language | Unknown | + + + | Marital Status | | + + + | Anabaptism Affiliation | 1013 | + + + | Race | Unknown | + + + | Ethnic Group | Unknown | + + + Author + + + | Author | [facility] | | | and [place] | + + + | Organization | [facility] | | | and [place] | + + + | Address | Unknown | + + + | Phone | Unavailable | + + + Support + + + + + | Name | Relationship | Address | Phone | + + + + + | Milady Burns | ECON | [address] | | | | | [place], [place] | | | | | [address] | | + + + + + Care Team Providers + +------+ + | Care Inspector Conveyor Line Name | Role | Phone | + +------+ + | Oscar Wright MD | PCP | | + +------+ + Encounter Details +--------+ + + + + | Date | Type | Department | Care Team | Description | +--------+ + + + + | 04/01/ | Abstract | [facility] | Chauncey Lee MD | | | 2016 | | NEUROSURGERY [address] | [address] | | | | | [address] | [place] [address] | | | | | KENYA Capps | [phone] | | | | | [address] | | | | | | [phone] | | | +--------+ + + + [...]
--- OUTSIDE RECORDS SUMMARY | ~2020-04-13 | XMS | Encounter Summary ---
Demographics + + + | Address | [address] | | | [place] [address] | + + + | Home Phone | | + + + | Preferred Language | Unknown | + + + | Marital Status | | + + + | Rastafarian Affiliation | CHR | + + + | Race | White | + + + | Ethnic Group | Not or | + + + Author + + + | Author | [facility] [place] [facility] | + + + | Organization | [facility] [place] [facility] | + + + | Address | Unknown | + + + | Phone | Unavailable | + + + Support + + + + + | Name | Relationship | Address | Phone | + + + + + | Tico Burns | ECON | [address] | | | | | [place], [place] | | | | | [address] | | + + + + + Care Team Providers + +------+ + | Care Balling Machine Operator Name | Role | Phone | + +------+ + | Moe Bella MD | PCP | | + +------+ + Reason for Visit + + + | Reason | Comments | + + + | Possible Wound | | | Infection | | + + + Encounter Details +--------+ + + + + | Date | Type | Department | Care Team | Description | +--------+ + + + + | 01/27/ | Telephone | Dig[facility]ive Health | ElijahisacJesus, | Possible Wound | | 2012 | | Center [address] | [address] | Infection | | | | Avamanda Mailcode: [address] | [facility] | | | | | [facility] | [place], [place] | | | | | and Healing, | [address] | | | | | [address] | [phone] | | | | | Floor [place], [place] | | | | | | [address] | | | | | | [phone] | | | +--------+ + + + [...]
--- OUTSIDE RECORDS SUMMARY | ~2020-04-13 | XMS | Encounter Summary ---
Demographics + + + | Address | [address] | | | [place] [address] | + + + | Home Phone | | + + + | Preferred Language | Unknown | + + + | Marital Status | | + + + | Moravian Affiliation | 1013 | + + + | Race | Unknown | + + + | Ethnic Group | Unknown | + + + Author + + + | Author | [facility] | | | and [place] | + + + | Organization | [facility] | | | and [place] | + + + | Address | Unknown | + + + | Phone | Unavailable | + + + Support + + + + + | Name | Relationship | Address | Phone | + + + + + | Milady Burns | ECON | [address] | | | | | [place] | | | | | [address] | | + + + + + Care Team Providers + +------+ + | Care Lead Architect Name | Role | Phone | + +------+ + | Moe Bella MD | PCP | | + +------+ + Reason for Visit + + + | Reason | Comments | + + + | Medication Refill | | + + + Encounter Details +--------+--------+ + + + | Date | Type | Department | Care Team | Description | +--------+--------+ + + + | 02/28/ | Refill | [facility] [place] | Jose Mirza | Medication Refill | | 2017 | | NEUROSURGERY [address] | [address] | | | | | [address] | [address] | | | | | [place], [place] | [place] [address] | | | | | [address] | [phone] | | | | | [phone] | | | +--------+--------+ + + + Social History + +-------+ [...]
--- OUTSIDE RECORDS SUMMARY | ~2020-04-13 | XMS | Encounter Summary ---
Demographics + + + | Address | [address] | | | [place] [address] | + + + | Home Phone | | + + + | Preferred Language | Unknown | + + + | Marital Status | | + + + | Islam Affiliation | 1013 | + + + | Race | Unknown | + + + | Ethnic Group | Unknown | + + + Author + + + | Author | [facility] | | | and [place] | + + + | Organization | [facility] | | | and [place] | + + + | Address | Unknown | + + + | Phone | Unavailable | + + + Support + + + + + | Name | Relationship | Address | Phone | + + + + + | Milady Burns | ECON | [address] | | | | | [place], [place] | | | | | [address] | | + + + + + Care Team Providers + +------+ + | Care Screw Machine Set Up Operator Tool Name | Role | Phone | + +------+ + PCP | Unavailable | + +------+ + Encounter Details +--------+ + + + + | Date | Type | Department | Care Team | Description | +--------+ + + + + | 07/18/ | Abstract | [facility] | DATA MIGRATION [facility] | | | 2011 | | Conversion Location | SR | | | | | [address] | | | | | | [place], [place] | | | | | | [address] | | | | | | [phone] | | | +--------+ + + + [...] + + + | Blood Pressure | 172/90 | 05/03/2011 12:00 AM | | | | | PDT | | + + + + + | Pulse | - | - | | + + + + + | Temperature | - | - | | + + + + + | Respiratory Rate | - | - | | + + + + + | Oxygen Saturation | - | - | | + + + + + | Inhaled Oxygen | - | - | | | Concentration | | | | + + + + + | Weight | 255.4 kg (563 lb) | 05/03/2011 12:00 AM | | | | | PDT | | + + + + + | Height | 148.6 cm (4' 10.5") | 08/08/2010 12:00 AM | | | | | PDT | | + + + + + | Body Mass Index | 115.66 | 08/08/2010 12:00 AM | | | | | PDT | | + + + + + documented in this encounter Plan of Treatment Not on filedocumented as of this encounter Visit Diagnoses Not on filedocumented in this encounter
--- OUTSIDE RECORDS SUMMARY | ~2020-04-13 | XMS | Encounter Summary ---
Demographics + + + | Address | [address] | | | [place] [address] | + + + | Home Phone | | + + + | Preferred Language | Unknown | + + + | Marital Status | | + + + | Sikhism Affiliation | 1013 | + + + | Race | Unknown | + + + | Ethnic Group | Unknown | + + + Author + + + | Author | [facility] | | | and [place] | + + + | Organization | [facility] | | | and [place] | + + + | Address | Unknown | + + + | Phone | Unavailable | + + + Support + + + + + | Name | Relationship | Address | Phone | + + + + + | Milady Burns | ECON | [address] | | | | | [place] | | | | | [address] | | + + + + + Care Team Providers + +------+ + | Care Nursing Home Admissions Director Name | Role | Phone | + +------+ + | Moe Bella MD | PCP | | + +------+ + Encounter Details +--------+ + + + + | Date | Type | Department | Care Team | Description | +--------+ + + + + | 05/29/ | Orders Only | [facility] | Toby Mirzalas | Cervical spondylosis | | 2016 | | NEUROSURGERY [address] | with radiculopathy | | | | [address] | [address] | (Primary Dx); S/P | | | | [place], [place] | [place] [address] | cervical spinal | | | | [address] | [phone] | fusion | | | | [phone] | | | +--------+ + + + [...] Not on filedocumented as of this encounter Results XR Cervical Spine 2 or 3 Views (07/11/2016 1:33 PM PDT) + + | Specimen | + + | | + + + + + | Narrative | Performed At | + + + | CERVICAL SPINE: 07/11/2016 1:18 PM CLINICAL HISTORY: Postop | [facility] | | COMPARISON: 06/01/2016 FINDINGS: Anterior compression plate and | [facility] | | screws from C4 to C7. Interbody spacers at each level. | [facility] | | Development of mild compression deformity of the anterior margin of | - IMAGING | | C4. No other interval bony change. Alignment is normally maintained. | | | No adjacent soft tissue abnormality. IMPRESSION - C4-C7 ACDF. | | | Interval development of compression of the anterior margin of C4. | | | Dictated and Signed by: Dima Chan MD Electronically signed: | | | 07/11/2016 2:25 PM | | + + + + + | Procedure Note | + + | [place], Rad Results In - 07/11/2016 2:28 PM PDT CERVICAL SPINE: 07/11/2016 1:18 PM | | | | CLINICAL HISTORY: Postop | | | | COMPARISON: 06/01/2016 | | | | FINDINGS: Anterior compression plate and screws from C4 to C7. Interbody spacers | | at each level. | | | | Development of mild compression deformity of the anterior margin of C4. No other | | interval bony change. Alignment is normally maintained. No adjacent soft tissue | | abnormality. | | | | IMPRESSION - C4-C7 ACDF. Interval development of compression of the anterior | | margin of C4. | | | | Dictated and Signed by: Dima Chan MD | | Electronically signed: 07/11/2016 2:25 PM | + + + + + + + | Performing | Address | City/State/Zipcode | Phone Number | | Organization | | | | + + + + + | [facility] | [address] | [place] | [phone] | | [facility] | | [address] | | | - IMAGING | | | | + + + + + documented in this encounter Visit Diagnoses + + | Diagnosis | + + | Cervical spondylosis with radiculopathy - Primary Cervical spondylosis with | | myelopathy | + + | S/P cervical spinal fusion Arthrodesis status | + + documented in this encounter"
--- OUTSIDE RECORDS SUMMARY | ~2020-04-13 | XMS | Encounter Summary ---
Demographics + + + | Address | [address] | | | [place] [address] | + + + | Home Phone | | + + + | Preferred Language | Unknown | + + + | Marital Status | | + + + | Worship Affiliation | CHR | + + + | Race | White | + + + | Ethnic Group | Not or | + + + Author + + + | Author | [facility] | + + + | Organization | [facility] | + + + | Address | Unknown | + + + | Phone | Unavailable | + + + Support + + + + + | Name | Relationship | Address | Phone | + + + + + | Tico Burns | ECON | [address] | | | | | [place], [place] | | | | | [address] | | + + + + + Care Team Providers + +------+ + | Care Gasoline Finisher Name | Role | Phone | + +------+ + | Moe Bella MD | PCP | | + +------+ + Encounter Details +--------+ + + + + | Date | Type | Department | Care Team | Description | +--------+ + + + + | 03/25/ | Outside | Diagnostic Imaging | Bell Mukherjee MD | | | 2012 | Referral | Services at [facility] | [address] | | | | Order | [address] | [address] [place], | | | | | Claudette Wright [facility] | [place] [address] | | | | | [facility], 10th Floor | [phone] | | | | | [place], [place] | | | | | | [address] | | | | | | [phone] | | | +--------+ + + + [...] on filedocumented as of this encounter Results US SOFT TISSUE HEAD & NECK (04/24/2013 9:03 AM PDT) + + + + + + | Component | Value | Ref Range | Performed | Pathologist | | | | | At | Signature | + + + + + + | US SOFT | EXAM: Neck Ultrasound | | | | | TISSUE HEAD | COMPARISON: None. | | | | | & NECK | HISTORY: Status post | | | | | | thyroidectomy for | | | | | | thyroid carcinoma. | | | | | | FINDINGS: The thyroid is | | | | | | surgically absent. | | | | | | Right Thyroid Bed: No | | | | | | focal nodules. Right | | | | | | Neck: No abnormal | | | | | | lymph nodes. Left | | | | | | Thyroid Bed: No focal | | | | | | nodules. Left Neck: No | | | | | | abnormal lymph nodes. | | | | | | No abnormal internal | | | | | | calcification or | | | | | | hypervascularity is seen | | | | | | within any ofthese | | | | | | lymph nodes. IMPRESSION: | | | | | | No findings to suggest | | | | | | recurrent thyroid cancer | | | | | | in the neck. Attending | | | | | | Radiologists: CARIDAD Rosas | | | | | | ARLENE GALINDOuthor: | | | | | | CARIDAD GALINDO MD I | | | | | | have personally viewed | | | | | | this procedure/exam, | | | | | | reviewed this report, | | | | | | and madechanges to it | | | | | | where appropriate. | | | | | | Final/Electronically | | | | | | vickey / CARIDAD Rosas | | | | | | MATEO 04/24/2013 9:14 | | | | | | AM | | | | | | | | | | | | | | | | + + + + + + + + | Specimen | + + | | + + + +---------+ + + | Performing | Address | City/State/Zipcode | Phone Number | | Organization | | | | + +---------+ + + | [place] [facility] | | | | [facility] | | | | + +---------+ + + documented in this encounter Visit Diagnoses + + | Diagnosis | + + | Follow-up exam - Primary Unspecified follow-up examination | + + | Thyroid cancer (HCC) Malignant neoplasm of thyroid gland | + + | S/P thyroidectomy Other postprocedural status | + + documented in this encounter"
--- OUTSIDE RECORDS SUMMARY | ~2020-04-13 | XMS | Encounter Summary ---
Demographics + + + | Address | [address] | | | [place] [address] | + + + | Home Phone | | + + + | Preferred Language | Unknown | + + + | Marital Status | | + + + | Taoism Affiliation | CHR | + + + | Race | White | + + + | Ethnic Group | Not or | + + + Author + + + | Author | [facility] | + + + | Organization | [facility] | + + + | Address | Unknown | + + + | Phone | Unavailable | + + + Support + + + + + | Name | Relationship | Address | Phone | + + + + + | Tico Bunrs | ECON | [address] | | | | | [place], [place] | | | | | [address] | | + + + + + Care Team Providers + +------+ + | Care Alternative Financing Specialist Name | Role | Phone | + +------+ + | Moe Bella MD | PCP | | + +------+ + Encounter Details +--------+ + + + + | Date | Type | Department | Care Team | Description | +--------+ + + + + | 12/18/ | Documentati | Preoperative | Latonya Lujan, | | | 2012 | on | Medicine Clinic at | | | | | | [facility] 4th Floor [address] | | | | | | [address] | | | | | | Mailcode: CH4S | | | | | | [facility] | | | | | | and Healing, | | | | | | Building ,4th Floor | | | | | | [place], [place] | | | | | | [address] | | | | | | [phone] | | | +--------+ + + + [...]
--- OUTSIDE RECORDS SUMMARY | ~2020-04-13 | XMS | Encounter Summary ---
Demographics + + + | Address | [address] | | | [place] [address] | + + + | Home Phone | | + + + | Preferred Language | Unknown | + + + | Marital Status | | + + + | Synagogue Affiliation | CHR | + + + | Race | White | + + + | Ethnic Group | Not or | + + + Author + + + | Author | [facility] | + + + | Organization | [facility] | + + + | Address | Unknown | + + + | Phone | Unavailable | + + + Support + + + + + | Name | Relationship | Address | Phone | + + + + + | Tico Burns | ECON | [address] | | | | | [place], [place] | | | | | [address] | | + + + + + Care Team Providers + +------+ + | Care Manager Enterprise Content Management Name | Role | Phone | + +------+ + | Moe Bella MD | PCP | | + +------+ + Reason for Referral PROC - Inpatient Surgery (Routine) +--------+--------+ + + + + | Status | Reason | Specialty | Diagnoses / | Referred By | Referred To | | | | | Procedures | Contact | Contact | +--------+--------+ + + + + | Closed | | Surgery | Diagnoses | Chris | Chris | | | | | Saurabh, | MD Jesus | MD Jesus | | | | | abdominal | [address] | [address] | | | | | Fatty tumor | [address] | [address] | | | | | S/P partial | [address] | [address] [place], | | | | | gastrectomy | [place], [place] | [place] | | | | | Procedures | [address] | [address] | | | | | REQUEST TO | Phone: | Phone: | | | | | SURGERY | [phone] | [phone] | | | | | RESPITE CARE PROVIDER | Fax: | Fax: | | | | | ID EXC SKIN | | | | | | | ABD ID EXC | | | | | | | SKIN BENIG | | | | | | | >4CM | | | | | | | TRUNK,ARM,LE | | | | | | | G | | | +--------+--------+ + + + + Encounter Details +--------+ + + + + | Date | Type | Department | Care Team | Description | +--------+ + + + + | 02/28/ | Donor Recruiter | Digestive Health | [place], | Pannus, abdominal | | 2012 | | Lillian at [facility] [address] | MD Zachary [address] | (Primary Dx); Fatty | | | | [address] | [address] | tumor; S/P partial | | | | Mailcode: Center | [place], [place] | gastrectomy | | | | for Health and | [address] | | | | | [facility] | [phone] | | | | | [place], [place] | | | | | | [address] | | | | | | [phone] | | | +--------+ + + + [...] + | Diagnosis | + + | Pannus, abdominal - Primary Localized adiposity | + + | Fatty tumor Lipoma of unspecified site | + + | S/P partial gastrectomy Other postprocedural status | + + documented in this encounter"
--- OUTSIDE RECORDS SUMMARY | ~2020-04-13 | XMS | Encounter Summary ---
Demographics + + + | Address | [address] | | | [place] [address] | + + + | Home Phone | | + + + | Preferred Language | Unknown | + + + | Marital Status | | + + + | Congregation Affiliation | CHR | + + + | Race | White | + + + | Ethnic Group | Not or | + + + Author + + + | Author | [facility] | + + + | Organization | [facility] | + + + | Address | Unknown | + + + | Phone | Unavailable | + + + Support + + + + + | Name | Relationship | Address | Phone | + + + + + | Tico Burns | ECON | [address] | | | | | [place], [place] | | | | | [address] | | + + + + + Care Team Providers + +------+ + | Care Hoop Flaring Machine Operator Name | Role | Phone | + +------+ + | Moe Bella MD | PCP | | + +------+ + Reason for Visit AUTH/CERT +--------+--------+ + + + + | Status | Reason | Specialty | Diagnoses / | Referred By | Referred To | | | | | Procedures | Contact | Contact | +--------+--------+ + + + + | Closed | | | | | | +--------+--------+ + + + + Encounter Details +--------+ + + + + | Date | Type | Department | Care Team | Description | +--------+ + + + + | 04/11/ | Hospital | [facility] [address] | Jesus Fenton, | | | 2013 - | Encounter | [address] | [place] [address] | | | | | [place], [place] | [address] | | | 04/14/ | | [address] | [place], [place] | | | 2012 | | [phone] | [address] | | | | | | [phone] | | | | | | | [...] + + + | Blood Pressure | 128/68 | 04/14/2013 8:09 AM | | | | | PDT | | + + + + + | Pulse | 74 | 04/14/2013 8:09 AM | | | | | PDT | | + + + + + | Temperature | 36.8 C (98.2 F) | 04/13/2013 10:10 PM | | | | | PDT | | + + + + + | Respiratory Rate | 18 | 04/13/2013 10:10 PM | | | | | PDT | | + + + + + | Oxygen Saturation | 94% | 04/13/2013 10:10 PM | | | | | PDT | | + + + + + | Inhaled Oxygen | - | - | | | Concentration | | | | + + + + + | Weight | 210.2 kg (463 lb 6.5 | 04/12/2013 8:47 PM | | | | oz) | PDT | | + + + + + | Height | 175.3 cm (5' 9") | 04/12/2013 8:47 PM | | | | | PDT | | + + + + + | Body Mass Index | 68.43 | 04/12/2013 8:47 PM | | | | | PDT | | + + + + + documented in this encounter Discharge Summaries JeremíasKalina crews ACNP - 04/14/2013 1:42 PM PDT INPATIENT PHYSICIAN DISCHARGE SUMMARY Attending Physician: Dr. Jesus Fenton PCP: Moe Bella MD Admission Date: 04/11/2013 Discharge Date: 04/14/2013 Diagnoses Principal Final Diagnosis: 1. 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 Excision of large fatty tumor Reason For Admission: Large fatty tumor of the abdomen Hospital Course: Herlinda is a 48 yo morbidly obese male who underwent a sleeve gastrectomy in January 2013. The patient had lost 30lbs prior to that operation and has lost 70lbs since - he curr ently weighs 480lbs (down from 580lbs). The patient had significant enlargement of his "mons " area which become pendulous over time and was hanging below his knees making walking diffi cult. This fatty tumor was lying entirely anterior to the genitals causing burried penis and difficulty accessing the penis for urination. The patient was therefor indicated for resect ion of this large fatty overgrowth. He was admitted on 04/11/2013 and underwent excision of a large fatty tumor, 28 pounds. He had Urology consult intraop for placement of a 16 Nepali ur ethral catheter, which was later removed, no retention noted.. He had closure of the abdomia nl defect with interrupted deep dermal stitches, without zuly or subcuticular stitches, w ith a loose closure to allow drainage from the large underlying potential space. There were no intraoperative complications. He had transitioned of pain medication to oral oxycodone with satisfactory results. The incision was intact with serous drainage, no erythema noted. Pathology is still pending. The Glycemic team consulted due to elevation in his CBG, with restart of the metformin, change to 35 units of lantus, 12 units lispro with meals and SSI. He will follow up with his art gilder. He will have a change in his postop appoint ment this to next week to combine the bariatric postop and this recent fatty tumor removal evaluation. He was discharged home in stable condition. Discharge Medication List as of 04/14/2013 12:26 PM START taking these medications Details multivitamin Oral capsule Take 1 Cap by mouth once daily. Indications: VITAMIN DEFICIENCY, Disp-30 Cap, R-2, OTC oxyCODONE, immediate release, 5 mg Oral tablet Take 1-3 Tabs by mouth every three hours as needed for severe pain. Indications: Pain, Disp-40 Tab, R-0, Print Prescription polyethylene glycol 17 gram/dose Oral Powder Take 17 g by mouth once daily as needed (No BM in past 3 days). Indications: CONSTIPATION, Disp-527 g, R-1, Print Prescription CONTINUE these medications which have CHANGED or have new prescriptions Details insulin glargine 100 unit/mL Subcutaneous Solution Inject 35 Units under the skin (SUBC) on ce daily at bedtime. Recommend the 35 units, check CBG. May increase up to 50 if CBG increa sed per PCP Indications: TYPE 2 DIABETES MELLITUS, Disp-10 mL, R-2, Print Prescription !! insulin lispro 100 unit/mL Subcutaneous Solution Inject 12 Units under the skin (SUBC) t hree times daily with meals. Indications: TYPE 2 DIABETES MELLITUS, Disp-10 mL, R-2, Print P rescription !! insulin lispro 100 unit/mL Subcutaneous Solution Use 2 units for 141-200, 4 units for 20 1-250, 6 units for 251-300, nj your doctor if > Indications: TYPE 2 DIABETES MELLITUS, Dis p-10 mL, R-1, Historical Med metFORMIN SR 500 mg Oral tablet extended release 24 hr Take 4 Tabs by mouth once daily. Adm inister with evening meal. Indications: TYPE 2 DIABETES MELLITUS, Disp-100 Tab, R-1, Histor ical Med !! - Potential duplicate medications found. Please discuss with provider. CONTINUE these medications which have NOT CHANGED Details Aspirin 81 mg Oral Tablet Take 81 mg by mouth once daily. , Historical Med Calcium Citrate-Vitamin D3 (CITRACAL + D PETITES) 200 mg calcium -250 unit Oral tablet Take 2 Tabs by mouth two times daily. Start 2 weeks after surgery. Indications: Hypocalcemia Pr evention, Disp-100 Tab, R-12, OTC cloNIDine 0.1 mg Oral Tablet Take 0.1 mg by mouth two times daily. , Historical Med cyanocobalamin 1,000 mcg/mL Injection Solution Inject 1,000 mcg into the muscle (IM) every thirty days. Indications: Prevention of Vitamin B12 Deficiency, Historical Med docusate sodium (COLACE) 100 mg Oral capsule Take 1 Cap by mouth two times daily., Disp-30 Cap, R-1, Print Prescription famotidine 20 mg Oral tablet Take 1 Tab by mouth two times daily. Indications: Prevention o f Stress Ulcer, Disp-60 Tab, R-2, Print Prescription FLUoxetine (PROZAC) 20 mg Oral Capsule Take 20 mg by mouth two times daily., Historical Med levothyroxine (SYNTHROID) 175 mcg Oral Tablet Take 175 mcg by mouth once daily. , Historic al Med LOSARTAN/HYDROCHLOROTHIAZIDE (HYZAAR ORAL) Take by mouth., Historical Med metoprolol tartrate 100 mg Oral Tablet Take 100 mg by mouth two times daily. , Historical Med pediatric multivitamin chewable (CHILDRENS CHEWABLE VITAMINS) Oral tablet, chewable Take 1 Tab by mouth two times daily., Disp-100 Tab, R-12, OTC ursodiol 300 mg Oral capsule Take 1 Cap by mouth two times daily. Start Actigall [address] surgery[address] Indications: Cholelithiasis Prevention, Disp-60 Cap, R-5, Print Prescription VITAMIN A/VITAMIN D2 (VITAMIN A & ERGOCALCIFEROL,D2, ORAL) Take by mouth. , Historical Me d STOP taking these medications magnesium oxide 400 mg Oral tablet Comments: Reason for Stopping: Wound Care Keep incisions clean and dry. Apply dry 5X7 abdominal pads in the overhanging skin area to keep the wounds dry. May shower, dry under your pannus well, blotting and going slowly to keep the incision intact. May tuck a clean pillow case in the area Diet Diabetic (Consistent Carbohydrate) Diabetic diet (Consistent Carbohydrate)- You should be careful to control your daily inta ke of carbohydrates and ensure that you are consuming the same amount of carbohydrates each day. Your health care provider will work with you to determine the appropriate amount of ca rbohydrates your body needs. Activity 1. No heavy lifting > 10lbs for 4 weeks 2. No driving for 10 days, while on narcotics 3. No tub bath, hot tubs or swimming for 6 weeks 4. May shower 5. Follow abdominal precautions Destination: Destination: Home Condition on Discharge Stable Future Appointments Date & Time Provider Department Dept Phone Center 04/24/2013 10:00 AM Jesus Fenton [facility] Bariatric Surgery [phone] [facility] Your Follow-Up Plan Follow up with JESUS FENTON MD. Schedule an appointment as soon as possible for a vis it on 04/17/2013. (the office will call you to reschedule and see if your needs can be met wi th one visit) Contact information [address] [facility] [address] [facility] [address] Other Discharge Orders and Instructions Medication Refill Instructions: If you need a refill on any narcotic pain medications, please call the clinic ([phone] ) by 2 pm on for any weekend needs. It will take 3 business days to mail any presc riptions to you. The resident will not be able to fill narcotic scripts after 5 pm daily an d on the weekends. Please plan ahead and keep track of how many pain pills you have left. When to Call the Doctor - If your incision becomes red, swollen, or has any bloody or pus-like drainage. - If you have a fever of 101.5 F or greater or if you have chills - If you have increased pain, unrelieved by your pain medications - If you have persistent nausea, vomiting, diarrhea, or no bowel movement for more than 2 d ays after discharge from the hospital - If you develop any unusual signs or symptoms, including chest pain, shortness of breath, pulmonary embolism, leg swelling, pain or redness that is abnormal for you, and other sympto ms of concern - If you have any questions or concerns. How to Call the Doctor - You may contact your doctor Sunday through Sunday during the day time hours by calling [facility] surgery office at [phone] - After hours, weekends and holidays, you may call the hospital hat brim and crown laminating operator at [phone] an d have the personnel security assistant Green Team for general surgery paged. Constipation: It is very important to avoid constipation and straining while trying to have a bowel movem ent. It is common to experience constipation after your operation and when taking narcotics . There are medication like stool softeners ( colace a.k.a. Docusate Sodium) or laxatives ( miralax, senokot+stool softener, Dulcolax suppository). Please work towards having a bowel movement every 1-2 days. A hot drink each morning will also help the sphincter to work in p ushing the stool forward. It is important to stay hydrated, about 45- 60 fluid ounces daily , and this will help your bowel function. Pain: It is expected that you will experience pain after your operation, and it is important to h ave you manage your pain to increase your activity, sleep and overall healing. You are hailee montemayor sent home with a prescription for pain relief. This should be taken every 3-6 hours per y our instructions. Some medications, like lortab or hydrocodone have Tylenol in it. Make neeta e you do not take more than 3,000 mg of tylenol or acetaminophen in 24 hours. Outstanding labs/studies: CRISTIN HOBSON [facility] [address] [place] [address] Discharging Physician: CRISTIN HOBSON Attending Physician: Dr. Jesus Fenton documented in thi s encounter Discharge Instructions Instructions Yolis Saba RN - 04/14/2013Patient Education Materials: Abdominal precau tions, post surgery Additional Instructions: Please follow diet, activity, and medication orders as prescribed by physicain. Please plan on attending your scheduled follow up visit. Do not hesitate to call physician with any questions or concerns. Watch for signs and symptoms of surgical si te infection (pain, redness, swelling, fever) and keep incision site clean and try. Please f ollow abdominal precautions and be sure to not bear down when having bowel movements. Do no t drive or operate heavy machinery while taking narcotic pain medication. You are permitted to shower, but please avoid bathtubs and hot tubs. Discharge Nurse: YOLIS SABA RN Date: 04/14/2013 Discharge Time: 12:24 PM documented in this encounter Medications at Time of Discharge + + + +---------+ + + | Medication | Sig | Dispensed | Refills | Start | End Date | | | | | | Date | | + + + +---------+ + + | Aspirin 81 mg Oral | Take 81 mg by mouth | | 0 | | | | Tablet | once daily. | | | | | + + + +---------+ + + | Calcium | Take 2 Tabs by mouth | 100 Tab | 12 | 01/25/20 | | | Citrate-Vitamin D3 | two times daily. | | | 13 | | | (CITRACAL + D | Start 2 weeks after | | | | | | PETITES) 200 mg | surgery. | | | | | | calcium -250 unit | Indications: | | | | | | Oral | Hypocalcemia | | | | | | tabletIndications: | Prevention | | | | | | hypocalcemia | | | | | | | prevention | | | | | | + + + +---------+ + + | cloNIDine 0.1 mg | Take 0.1 mg by mouth | | 0 | | | | Oral Tablet | two times daily. | | | | | + + + +---------+ + + | cyanocobalamin | Inject 1,000 mcg | | 0 | | | | 1,000 mcg/mL | into the muscle (IM) | | | | | | Injection | every thirty days. | | | | | | SolutionIndications: | Indications: | | | | | | prevention of | Prevention of | | | | | | vitamin B12 | Vitamin B12 | | | | | | deficiency | Deficiency | | | | | + + + +---------+ + + | FLUoxetine | Take 20 mg by mouth | | 0 | | | | (PROZAC) 20 mg Oral | two times daily. | | | | | | Capsule | | | | | | + + + +---------+ + + | insulin glargine | Inject 35 Units | 10 mL | 2 | 04/14/ | | | 100 unit/mL | under the skin | | | 13 | | | Subcutaneous | (SUBC) once daily at | | | | | | SolutionIndications: | bedtime. Recommend | | | | | | type 2 diabetes | the 35 units, check | | | | | | mellitus | CBG. May increase | | | | | | | up to 50 if CBG | | | | | | | increased per PCP | | | | | | | Indications: TYPE 2 | | | | | | | DIABETES MELLITUS | | | | | + + + +---------+ + + | insulin lispro 100 | Inject 12 Units | 10 mL | 2 | 04/14/20 | | | unit/mL | under the skin | | | 13 | | | Subcutaneous | (SUBC) three times | | | | | | SolutionIndications: | daily with meals. | | | | | | type 2 diabetes | Indications: TYPE 2 | | | | | | mellitus | DIABETES MELLITUS | | | | | + + + +---------+ + + | insulin lispro 100 | Use 2 units for | 10 mL | 1 | 04/14/20 | | | unit/mL | 141-200, 4 units for | | | 13 | | | Subcutaneous | 201-250, 6 units | | | | | | SolutionIndications: | for 251-300, nj | | | | | | type 2 diabetes | your doctor if > | | | | | | mellitus | Indications: TYPE 2 | | | | | | | DIABETES MELLITUS | | | | | + + + +---------+ + + | | Take by mouth. | | 0 | | | | LOSARTAN/HYDROCHLORO | | | | | | | THIAZIDE (HYZAAR | | | | | | | ORAL) | | | | | | + + + +---------+ + + | metFORMIN SR 500 | Take 4 Tabs by mouth | 100 Tab | 1 | 04/14/20 | | | mg Oral tablet | once daily. | | | 13 | | | extended release 24 | Administer with | | | | | | hrIndications: type | evening meal. | | | | | | 2 diabetes mellitus | Indications: TYPE 2 | | | | | | | DIABETES MELLITUS | | | | | + + + +---------+ + + | metoprolol | Take 100 mg by mouth | | 0 | | | | tartrate 100 mg Oral | two times daily. | | | | | | Tablet | | | | | | + + + +---------+ + + | multivitamin Oral | Take 1 Cap by mouth | 30 Cap | 2 | 04/14/20 | | | capsuleIndications: | once daily. | | | 13 | | | vitamin deficiency | Indications: VITAMIN | | | | | | | DEFICIENCY | | | | | + + + +---------+ + + | pediatric | Take 1 Tab by mouth | 100 Tab | 12 | 01/11/20 | | | multivitamin | two times daily. | | | 13 | | | chewable (CHILDRENS | | | | | | | CHEWABLE VITAMINS) | | | | | | | Oral tablet, | | | | | | | chewable | | | | | | + + + +---------+ + + | polyethylene | Take 17 g by mouth | 527 g | 1 | 04/14/20 | | | glycol 17 gram/dose | once daily as needed | | | 13 | | | Oral | (No BM in past 3 | | | | | | PowderIndications: | days). Indications: | | | | | | constipation | CONSTIPATION | | | | | + + + +---------+ + + | ursodiol 300 mg | Take 1 Cap by mouth | 60 Cap | 5 | 01/25/20 | | | Oral | two times daily. | | | 13 | | | capsuleIndications: | Start Actigall 2 | | | | | | cholelithiasis | weeks after surgery. | | | | | | prevention | Indications: | | | | | | | Cholelithiasis | | | | | | | Prevention | | | | | + + + +---------+ + + documented as of this encounter Progress Notes Kalina Brody ACNP - 04/14/2013 1:29 PM PDT [facility] Inpatient Progress Note Hospital Day #3 Author: CRISTIN HOBSON Attending: Dr. Jesus Fenton ID: Gerard Burns is a 48 year old male Interval Hx: feeling good, no nausea, vomiting, no fever. CBG's improved on new insulin re gimen. Ready for discharge home. Letter provided for his to return to work. Insulin regimen discussed and appreciate final reqs for discharge home today. Scripts provided, donavon blank answered. Plan to change his appointment to next week in clinic, hoping to combine p ost bariatric procedure appt with recent fatty tumor removal on 04/11/2013. Subjective: 1. Pain: none 2. Nausea and vomiting: none reported 3. Diet: diabetic 4. Flatus: + 5. Bowel Movement/ostomy: + 6. Ambulation: ++ Physical Examination Last Vitals: BP 128/68 | Pulse 74 | Temp 36.8 C (98.2 F) | RR 18 | Ht 1.753 m (5' 9") | Wt 210.2 kg (463 lb 6.5 oz) | SpO2 94% | BMI 68.4 kg/(m^2) 24 Hour Vital Min/Max: Systolic (24hrs), Av mmHg, Min:112 mmHg, Max:139 mmHgDiastolic (24hrs), Av mmHg, M in:54 mmHg, Max:70 mmHgPulse Av.3 Min: 71 Max: 76 Temp Av.8 C (98.3 F) Min: 36.8 C (98.2 F) Max: 36.9 C (98.4 F) Resp Av Min: 18 Max: 18 SpO2 Av.7 % Min: 94 % Max: 97 % Intake/Output Summary (Last 24 hours) at 04/14/13 0700 Last data filed at 04/14/13 0600 Gross per 24 hour Intake 2680 ml Output 1200 ml Net 1480 ml General: Awake, alert, and oriented x4, no acute distress HEENT: PERRLA, EOMI Pulm: Bilaterally clear to auscultation; negative wheezes or rales; excellent inspiratory e ffort Cardio: Regular rate and rhythm; negative murmur, rubs, or gallops; S1S2 Abdomen: Soft/obese. Non-tender to palpation in all four quadrants, Normal active bowel león nds, incision intact under pannus, moisture noted, no erythema. MS: Moves all extremities well, Warm and well perfused Derm: -no erythema, edema, ecchymosis Current Inpatient Medications Medication Dose Route Frequency aspirin chewable tablet 81 mg 81 mg Oral DAILY cloNIDine (aka CATAPRES) tablet 0.1 mg 0.1 mg Oral BID dextrose 50 % IV 25 mL 25 mL Intravenous PRN docusate sodium (aka COLACE) capsule 100 mg 100 mg Oral BID enoxaparin (aka LOVENOX) injection 30 mg 30 mg Subcutaneous Q12H (Scheduled) famotidine (aka PEPCID) tablet 20 mg 20 mg Oral BID FLUoxetine (aka PROZAC) capsule 20 mg 20 mg Oral BID glucagon (aka GLUCAGEN) injection 1 mg 1 mg Intramuscular PRN glucose chewable tablet 16 g 16 g Oral Q15MIN PRN hydrALAZINE (aka APRESOLINE) injection 10 mg 10 mg Intravenous Q6H PRN HYDROmorphone (aka DILAUDID) injection 0.2-0.6 mg 0.2-0.6 mg Intravenous Q2H PRN insulin glargine (aka LANTUS) injection 35 Units 35 Units Subcutaneous HS insulin lispro (aka HUMALOG) injection 12 Units 12 Units Subcutaneous TID W/MEALS insulin lispro (aka HUMALOG) injection Subcutaneous MEALS and HS lactated ringers IV 100 mL/hr Intravenous CONTINUOUS levothyroxine tablet 175 mcg 175 mcg Oral DAILY metFORMIN SR (aka GLUCOPHAGE XR) tablet 2,000 mg 2,000 mg Oral DAILY metoprolol tartrate (aka LOPRESSOR) tablet 100 mg 100 mg Oral BID multivitamin 1 Cap 1 Cap Oral DAILY ondansetron (aka ZOFRAN) injection 4 mg 4 mg Intravenous Q12H PRN oxyCODONE (immediate release) (aka ROXICODONE) tablet 5-15 mg 5-15 mg Oral Q3H PRN polyethylene glycol (aka MIRALAX) powder 17 g 17 g Oral DAILY PRN Or polyethylene glycol (aka MIRALAX) powder 17 g 17 g Feeding Tube DAILY PRN simethicone chew (aka MYLICON) tablet 80 mg 80 mg Oral TID PRN Or simethicone (aka MYLICON) suspension 80 mg 80 mg Feeding Tube TID PRN ursodiol (aka ACTIGALL) capsule 300 mg 300 mg Oral BID Current Inpatient Medications Medication Aspirin 81 mg Oral Tablet Calcium Citrate-Vitamin D3 (CITRACAL + D PETITES) 200 mg calcium -250 unit Oral tablet cloNIDine 0.1 mg Oral Tablet cyanocobalamin 1,000 mcg/mL Injection Solution docusate sodium (COLACE) 100 mg Oral capsule famotidine 20 mg Oral tablet FLUoxetine (PROZAC) 20 mg Oral Capsule insulin glargine 100 unit/mL Subcutaneous Solution insulin lispro 100 unit/mL Subcutaneous Solution insulin lispro 100 unit/mL Subcutaneous Solution levothyroxine (SYNTHROID) 175 mcg Oral Tablet LOSARTAN/HYDROCHLOROTHIAZIDE (HYZAAR ORAL) metFORMIN SR 500 mg Oral tablet extended release 24 hr metoprolol tartrate 100 mg Oral Tablet multivitamin Oral capsule oxyCODONE, immediate release, 5 mg Oral tablet pediatric multivitamin chewable (CHILDRENS CHEWABLE VITAMINS) Oral tablet, chewable polyethylene glycol 17 gram/dose Oral Powder ursodiol 300 mg Oral capsule VITAMIN A/VITAMIN D2 (VITAMIN A & ERGOCALCIFEROL,D2, ORAL) Chemistries: Last 72 Hours (or 3 results): Recent Labs 04/12/13 0448 04/13/13 2045 04/14/13 0748 04/14/13 1220 NA 140 -- -- -- -- K 3.7 -- -- -- -- CL 105 -- -- -- -- BICARB 25 -- -- -- -- BUN 16 -- -- -- -- CR 0.79 -- -- -- -- GLU 149* < > 136* 171* 130* CA 8.3* -- -- -- -- MG 1.5* -- -- -- -- PO4 3.7 -- -- -- -- < > = values in this interval not displayed. CBC with diff last 72 hours (or 3 results) Recent Labs 04/12/13 0448 WBC 9.0 HB 11.9* HCT 37.3* PLT 243 Patient Active Problem List Diagnosis Morbid obesity Depression BMI 70 and over, adult Nephrolithiasis DM (diabetes mellitus) Hypertension Hyperlipidemia Panniculitis Edema Thyroid cancer Sleep apnea Assessment and Plan: Gerard Burns is a 48 y.o. M POD#3 s/p Resection of a large fatty manda or. The patient is doing very well this morning. -Continue current regimens follow CBGs closely - to follow up with his [employer] Grader -home today Prophylaxis: Feeding: regular Activity: Ambulate Sedation/Sleep: na VTE PPY: SCDs, Lovenox Head of bed: >30 degrees Ulcer PPY: famotidine Glycemic Control: euglycemic Infection PPY: IS, all catheter & line dates reviewed DISPO - dc home CRISTIN HOBSON [facility] [address] [place] [address] This assessment and plan was formulated both independently and in conjunction with the Surg ical team as well as the attending provider above. Nannette Duran MD - 04/13/2013 10:20 AM PDT [facility] PROGRESS NOTE Hospital Day:2 Author; NANNETTE LUJAN MD Attending Physician: Dr. Fenton Interval Hx: High CBGs for which [facility] was consulted yesterday - further adjustments made to Insulin regimen today, metformin restarted. Patient otherwise doing very well - pain contro lled, ambulating, "feels great." Physical Exam: Last Vitals: BP 114/64 | Pulse 69 | Temp 36.8 C (98.2 F) | RR 18 | Ht 1.753 m (5' 9") | Wt 210.2 kg (463 lb 6.5 oz) | SpO2 94% | BMI 68.4 kg/(m^2) O2 Delivery Device: None (room air) (04/13/13 0650) 24 Hour Vital Min/Max: Systolic (24hrs), Av mmHg, Min:114 mmHg, Max:140 mmHgDiastolic (24hrs), Av mmHg, M in:58 mmHg, Max:69 mmHgPulse Av Min: 69 Max: 83 Temp Av.1 C (98.8 F) Min: 36.8 C (98.2 F) Max: 37.6 C (99.7 F) Resp Av.3 Min: 16 Max: 18 SpO2 Av.1 % Min: 89 % Max: 95 % Intake/Output Summary (Last 24 hours) at 04/13/13 1020 Last data filed at 04/13/13 0835 Gross per 24 hour Intake 1160 ml Output 850 ml Net 310 ml Gen - Awake and alert. Sitting up in bed getting ready to go for a walk Pulm - breathing comfortably Abd - obese. Soft and non-tender. Incision beneath pannus is well healing with moderate cody inage. Incision is covered with ABDs Ext - warm and well perfused Medications: Current facility-administered medications:aspirin chewable tablet 81 mg, 81 mg, Oral, DAILY , Nannette Lujan MD, 81 mg at 04/13/13 0819 cloNIDine (aka CATAPRES) tablet 0.1 mg, 0.1 mg, Oral, BID, Nannette Lujan MD, 0.1 mg at 0 04/13/13818 dextrose 50 % IV 25 mL, 25 mL, Intravenous, PRN, Nannette Lujan MD docusate sodium (aka COLACE) capsule 100 mg, 100 mg, Oral, BID, Nannette Lujan MD, 100 mg at 04/13/13 08 enoxaparin (aka LOVENOX) injection 30 mg, 30 mg, Subcutaneous, Q12H (Scheduled), Nannette Lujan MD, 30 mg at 04/13/13 0818 famotidine (aka PEPCID) tablet 20 mg, 20 mg, Oral, BID, Nannette Lujan MD, 20 mg at 04/13 08 FLUoxetine (aka PROZAC) capsule 20 mg, 20 mg, Oral, BID, Nannette Lujan MD, 20 mg at 0607/18 08 glucagon (aka GLUCAGEN) injection 1 mg, 1 mg, Intramuscular, PRN, Nannette Lujan MD glucose chewable tablet 16 g, 16 g, Oral, Q15MIN PRN, Nannette Lujan MD hydrALAZINE (aka APRESOLINE) injection 10 mg, 10 mg, Intravenous, Q6H PRN, Nannette Lujan MD HYDROmorphone (aka DILAUDID) injection 0.2-0.6 mg, 0.2-0.6 mg, Intravenous, Q2H PRN, Edgar Lujan MD insulin glargine (aka LANTUS) injection 35 Units, 35 Units, Subcutaneous, HS, Piyush Colvin MD insulin lispro (aka HUMALOG) injection 12 Units, 12 Units, Subcutaneous, TID W/MEALS, Benjie Colvin MD insulin lispro (aka HUMALOG) injection, , Subcutaneous, MEALS and HS, Nannette Lujan MD, 2 Units at 04/13/13 0820 lactated ringers IV, 100 mL/hr, Intravenous, CONTINUOUS, Nannette Lujan MD, Last Rate: 10 0 mL/hr at 04/12/131999, 100 mL/hr at 04/12/131999 levothyroxine tablet 175 mcg, 175 mcg, Oral, DAILY, Nannette Lujan MD, 175 mcg at 3 0821 metFORMIN SR (aka GLUCOPHAGE XR) tablet 2,000 mg, 2,000 mg, Oral, DAILY, Piyush morris MD, 2,000 mg at 04/13/13 0821 metoprolol tartrate (aka LOPRESSOR) tablet 100 mg, 100 mg, Oral, BID, Nannette Lujna MD, 100 mg at 04/13/13 0818 multivitamin 1 Cap, 1 Cap, Oral, DAILY, Nannette Lujan MD, 1 Cap at 04/13/13 08 ondansetron (aka ZOFRAN) injection 4 mg, 4 mg, Intravenous, Q12H PRN, Nannette Lujan MD oxyCODONE (immediate release) (aka ROXICODONE) tablet 5-15 mg, 5-15 mg, Oral, Q3H PRN, Jose De Jesus dov Lujan MD, 10 mg at 04/12/132105 polyethylene glycol (aka MIRALAX) powder 17 g, 17 g, Oral, DAILY PRN, Nannette Lujan MD polyethylene glycol (aka MIRALAX) powder 17 g, 17 g, Feeding Tube, DAILY PRN, Nannette baker MD simethicone (aka MYLICON) suspension 80 mg, 80 mg, Feeding Tube, TID PRN, Nannette Lujan MD simethicone chew (aka MYLICON) tablet 80 mg, 80 mg, Oral, TID PRN, Nannette Lujan MD ursodiol (aka ACTIGALL) capsule 300 mg, 300 mg, Oral, BID, Nannette Lujan MD, 300 mg at 0 04/13/13 0819 Assessment and Plan: Gerard Burns is a 48 y.o. M POD#2 s/p Resection of a large fatty manda or. The patient is doing very well this morning. -Continue current regimens -Will follow CBGs closely - appreciate [facility] help -Likely home tomorrow NANNETTE LUJAN MD PLASTIC AND RECONSTRUCTIVE SURGERY [facility] eNannette smith MD - 04/12/2013 11:27 AM PDTFormatting of this note might be different from the o riginal. [facility] PROGRESS NOTE Hospital Day:1 Author; NANNETTE LUJAN MD Attending Physician: Dr. Fenton Interval Hx: Pain well controlled. Has a good appetite. Not yet ambulating Physical Exam: Last Vitals: BP 122/62 | Pulse 70 | Temp 36.5 C (97.7 F) | RR 17 | Ht 1.753 m (5' 9") | Wt 218.4 kg (481 lb 7.8 oz) | SpO2 98% | BMI 71.07 kg/(m^2) O2 Delivery Device: None (room air) (04/12/13 0609) 24 Hour Vital Min/Max: Systolic (24hrs), Av mmHg, Min:120 mmHg, Max:148 mmHgDiastolic (24hrs), Av mmHg, M in:59 mmHg, Max:82 mmHgPulse Av.1 Min: 55 Max: 71 Temp Av.5 C (97.7 F) Min: 36.3 C (97.3 F) Max: 36.8 C (98.2 F) Resp Av.6 Min: 10 Max: 18 SpO2 Av.8 % Min: 93 % Max: 99 % Intake/Output Summary (Last 24 hours) at 04/12/13 1127 Last data filed at 04/12/13 08 Gross per 24 hour Intake 4958.34 ml Output 1425 ml Net 3533.34 ml Gen - Awake and alert. Sitting up in bed and eating breakfast. NAD Pulm - breathing comfortably Abd - obese. Soft and non-tender. Incision beneath pannus is well healing with moderate d rainage. Incision is covered with ABDs Ext - warm and well perfused Medications: Current facility-administered medications:aspirin chewable tablet 81 mg, 81 mg, Oral, DAILY , Nannette Lujan MD, 81 mg at 04/12/13827 cloNIDine (aka CATAPRES) tablet 0.1 mg, 0.1 mg, Oral, BID, Nannette Lujan MD, 0.1 mg at 0 04/12/13828 dextrose 50 % IV 25 mL, 25 mL, Intravenous, PRN, Nannette Lujan MD docusate sodium (aka COLACE) capsule 100 mg, 100 mg, Oral, BID, Nannette Lujan MD, 100 mg at 04/12/13828 enoxaparin (aka LOVENOX) injection 40 mg, 40 mg, Subcutaneous, QPM, Nannette Lujan MD famotidine (aka PEPCID) tablet 20 mg, 20 mg, Oral, BID, Nannette Lujan MD, 20 mg at 04/12 FLUoxetine (aka PROZAC) capsule 20 mg, 20 mg, Oral, BID, Nannette Lujan MD, 20 mg at 060 06/17 829 glucagon (aka GLUCAGEN) injection 1 mg, 1 mg, Intramuscular, PRN, Nannette Lujan MD glucose chewable tablet 16 g, 16 g, Oral, Q15MIN PRN, Nannette Lujan MD hydrALAZINE (aka APRESOLINE) injection 10 mg, 10 mg, Intravenous, Q6H PRN, Nannette Lujan MD HYDROmorphone (aka DILAUDID) injection 0.2-0.6 mg, 0.2-0.6 mg, Intravenous, Q2H PRN, Edgar Lujan MD insulin glargine (aka LANTUS) injection 50 Units, 50 Units, Subcutaneous, HS, Nannette baker MD, 50 Units at 04/11/132207 insulin lispro (aka HUMALOG) injection, , Subcutaneous, MEALS and HS, Nannette Lujan MD, 2 Units at 04/12/13828 lactated ringers IV, 100 mL/hr, Intravenous, CONTINUOUS, Nannette Lujan MD, Last Rate: 10 0 mL/hr at 04/12/13816, 100 mL/hr at 04/12/13816 levothyroxine tablet 175 mcg, 175 mcg, Oral, DAILY, Nannette Lujan MD, 175 mcg at 3 30 metoprolol tartrate (aka LOPRESSOR) tablet 100 mg, 100 mg, Oral, BID, Nannette Lujan MD, 100 mg at 04/12/13828 multivitamin 1 Cap, 1 Cap, Oral, DAILY, Nannette Lujan MD, 1 Cap at 04/12/13828 ondansetron (aka ZOFRAN) injection 4 mg, 4 mg, Intravenous, Q12H PRN, Nannette Lujan MD oxyCODONE (immediate release) (aka ROXICODONE) tablet 5-15 mg, 5-15 mg, Oral, Q3H PRN, Jose De Jesus dov Lujan MD, 10 mg at 04/12/13828 polyethylene glycol (aka MIRALAX) powder 17 g, 17 g, Oral, DAILY PRN, Nannette Lujan MD polyethylene glycol (aka MIRALAX) powder 17 g, 17 g, Feeding Tube, DAILY PRN, Nannette baker MD simethicone (aka MYLICON) suspension 80 mg, 80 mg, Feeding Tube, TID PRN, Nannette Lujan MD simethicone chew (aka MYLICON) tablet 80 mg, 80 mg, Oral, TID PRN, Nannette Lujan MD ursodiol (aka ACTIGALL) capsule 300 mg, 300 mg, Oral, BID, Nannette Lujan MD, 300 mg at 0 04/12/13828 Assessment and Plan: Gerard Burns is a 48 y.o. M POD#1 s/p Resection of a large fatty tu mor. The patient is doing very well this morning. -Patient to get OOB with PT today -Otherwise plan to continue all current regimens NANNETTE LUJAN MD PLASTIC AND RECONSTRUCTIVE SURGERY [facility] orTrina willson MD - 04/11/2013 10:24 PM PDTFormatting of this note might be different from the or iginal. Postoperative Check Note: Authort: Trina Hutchinson MD Patient: Gerard Burns Primary Team: [facility] Attending Surgeon: Jesus Fenton MD At: 04/11/2013 10:24 PM PROCEDURE: excision of large fatty tumor SUBJECTIVE: Pain well controlled on [employer] 01/12; denies SOB/CP/N/V; CPAP on OBJECTIVE: Vitals: Temp Av.6 C (97.8 F) Min: 36.3 C (97.3 F) Max: 36.8 C (98.2 F) Pulse Av.1 Min: 55 Max: 71 Systolic (24hrs), Av mmHg, Min:128 mmHg, Max:148 mmHg Diastolic (24hrs), Av mmHg, Min:59 mmHg, Max:82 mmHg Resp Av.2 Min: 10 Max: 18 SpO2 Av.1 % Min: 96 % Max: 99 % Meds: Current Inpatient Medications Medication Dose Route Frequency aspirin chewable tablet 81 mg 81 mg Oral DAILY cloNIDine (aka CATAPRES) tablet 0.1 mg 0.1 mg Oral BID dextrose 50 % IV 25 mL 25 mL Intravenous PRN docusate sodium (aka COLACE) capsule 100 mg 100 mg Oral BID enoxaparin (aka LOVENOX) injection 40 mg 40 mg Subcutaneous QPM famotidine (aka PEPCID) tablet 20 mg 20 mg Oral BID FLUoxetine (aka PROZAC) capsule 20 mg 20 mg Oral BID glucagon (aka GLUCAGEN) injection 1 mg 1 mg Intramuscular PRN glucose chewable tablet 16 g 16 g Oral Q15MIN PRN hydrALAZINE (aka APRESOLINE) injection 10 mg 10 mg Intravenous Q6H PRN HYDROmorphone (aka DILAUDID) injection 0.2-0.6 mg 0.2-0.6 mg Intravenous Q2H PRN insulin glargine (aka LANTUS) injection 50 Units 50 Units Subcutaneous HS insulin lispro (aka HUMALOG) injection Subcutaneous MEALS and HS lactated ringers IV 100 mL/hr Intravenous CONTINUOUS levothyroxine tablet 175 mcg 175 mcg Oral DAILY metoprolol tartrate (aka LOPRESSOR) tablet 100 mg 100 mg Oral BID multivitamin 1 Cap 1 Cap Oral DAILY ondansetron (aka ZOFRAN) injection 4 mg 4 mg Intravenous Q12H PRN oxyCODONE (immediate release) (aka ROXICODONE) tablet 5-15 mg 5-15 mg Oral Q3H PRN polyethylene glycol (aka MIRALAX) powder 17 g 17 g Oral DAILY PRN Or polyethylene glycol (aka MIRALAX) powder 17 g 17 g Feeding Tube DAILY PRN simethicone chew (aka MYLICON) tablet 80 mg 80 mg Oral TID PRN Or simethicone (aka MYLICON) suspension 80 mg 80 mg Feeding Tube TID PRN ursodiol (aka ACTIGALL) capsule 300 mg 300 mg Oral BID Physical Exam: General: Supine, in bed, NAD. Respiratory: CPAP mask on; unlabored, CTAB CV: RRR Abdomen: obese, soft, nontender; Incision on inferior aspect of very large pannus with manuel ssings clean/dry/intact, minimal SS drainage to midline aspect of wound; abd's in place c/d/ i : chau catheter in place, urine light yellow Extremities: Warm and well perfused, SCDs in place Labs: Chemistries- Recent Labs 04/10/13 1420 04/11/13 1803 04/11/13 1958 04/11/13 2111 NA 138 -- -- -- -- K 4.9 -- -- -- -- CL 100 -- -- -- -- BICARB 27 -- -- -- -- BUN 18 -- -- -- -- CR 0.97 -- -- -- -- GLU 294* < > 223* 205* 182* CA 9.7 -- -- -- -- < > = values in this interval not displayed. CBC with differential- Recent Labs 04/10/13 1420 WBC 9.5 HB 14.3 HCT 44.7 PLT 321 ASSESSMENT AND PLAN: Gerard Burns is a 48 y.o. M, with [facility] s/f morbid obesity who is POD#0 s/p excision of large fatty tumor measuring 28.6 lbs; beneath pannus. Overall doing well. 1. Analgesia: oxycodone, IV dilaudid 2. Diet: Diabetic 3. DM: Lantus 50u qhs, SSI 4. AM labs 5. HTN well controlled: continue clonidine, metoprolol, hydralazine prn 6. Hypothyroidism: levothyroxine 7. Continue home dose ursodiol 8. Bowel regimen 9. PT/OT in am 10. Encourage IS 11. DVT px: Lovenox Trina Hutchinson MD Surgery, R1 Pager: [phone] documented in this encounter Plan of Treatment Not on filedocumented as of this encounter Procedures + +--------+ + + + | Procedure Name | Priori | Date/Time | Associated Diagnosis | Comments | | | ty | | | | + +--------+ + + + | PROCEDURE NOTE | Routin | 12/09/2015 | | Results for this | | | e | 10:26 PM | | procedure are in the | | | | PST | | results section. | + +--------+ + + + | PROCEDURE NOTE | Routin | 12/09/2015 | | Results for this | | | e | 10:26 PM | | procedure are in the | | | | PST | | results section. | + +--------+ + + + | PROCEDURE NOTE | Routin | 12/09/2015 | | Results for this | | | e | 10:23 PM | | procedure are in the | | | | PST | | results section. | + +--------+ + + + | CAPILLARY BLOOD | Routin | 04/14/2013 | | Results for this | | GLUCOSE (NO CHG), | e | 12:20 PM | | procedure are in the | | POC | | PDT | | results section. | + +--------+ + + + | CAPILLARY BLOOD | Routin | 04/14/2013 | | Results for this | | GLUCOSE (NO CHG), | e | 7:48 AM | | procedure are in the | | POC | | PDT | | results section. | + +--------+ + + + | CAPILLARY BLOOD | Routin | 04/13/2013 | | Results for this | | GLUCOSE (NO CHG), | e | 8:45 PM | | procedure are in the | | POC | | PDT | | results section. | + +--------+ + + + | CAPILLARY BLOOD | Routin | 04/13/2013 | | Results for this | | GLUCOSE (NO CHG), | e | 5:42 PM | | procedure are in the | | POC | | PDT | | results section. | + +--------+ + + + | CAPILLARY BLOOD | Routin | 04/13/2013 | | Results for this | | GLUCOSE (NO CHG), | e | 12:18 PM | | procedure are in the | | POC | | PDT | | results section. | + +--------+ + + + | CAPILLARY BLOOD | Routin | 04/13/2013 | | Results for this | | GLUCOSE (NO CHG), | e | 8:06 AM | | procedure are in the | | POC | | PDT | | results section. | + +--------+ + + + | CAPILLARY BLOOD | Routin | 04/13/2013 | | Results for this | | GLUCOSE (NO CHG), | e | 12:14 AM | | procedure are in the | | POC | | PDT | | results section. | + +--------+ + + + | CAPILLARY BLOOD | Routin | 04/12/2013 | | Results for this | | GLUCOSE (NO CHG), | e | 9:45 PM | | procedure are in the | | POC | | PDT | | results section. | + +--------+ + + + | CAPILLARY BLOOD | Routin | 04/12/2013 | | Results for this | | GLUCOSE (NO CHG), | e | 7:41 PM | | procedure are in the | | POC | | PDT | | results section. | + +--------+ + + + | CAPILLARY BLOOD | Routin | 04/12/2013 | | Results for this | | GLUCOSE (NO CHG), | e | 6:06 PM | | procedure are in the | | POC | | PDT | | results section. | + +--------+ + + + | CAPILLARY BLOOD | Routin | 04/12/2013 | | Results for this | | GLUCOSE (NO CHG), | e | 12:45 PM | | procedure are in the | | POC | | PDT | | results section. | + +--------+ + + + | CAPILLARY BLOOD | Routin | 04/12/2013 | | Results for this | | GLUCOSE (NO CHG), | e | 8:17 AM | | procedure are in the | | POC | | PDT | | results section. | + +--------+ + + + | CBC ONLY | Urgent | 04/12/2013 | | Results for this | | | | 4:48 AM | | procedure are in the | | | | PDT | | results section. | + +--------+ + + + | RENAL FUNCTION SET | Urgent | 04/12/2013 | | Results for this | | (NA,K,CL,CO2,BUN,CRE | | 4:48 AM | | procedure are in the | | AT,GLUC,CA,PHOS,ALB | | PDT | | results section. | | ) | | | | | + +--------+ + + + | CBC ONLY | Urgent | 04/12/2013 | | Results for this | | | | 4:48 AM | | procedure are in the | | | | PDT | | results section. | + +--------+ + + + | MAGNESIUM, PLASMA | Urgent | 04/12/2013 | | Results for this | | | | 4:48 AM | | procedure are in the | | | | PDT | | results section. | + +--------+ + + + | CAPILLARY BLOOD | Routin | 04/11/2013 | | Results for this | | GLUCOSE (NO CHG), | e | 9:11 PM | | procedure are in the | | POC | | PDT | | results section. | + +--------+ + + + | CAPILLARY BLOOD | Routin | 04/11/2013 | | Results for this | | GLUCOSE (NO CHG), | e | 7:58 PM | | procedure are in the | | POC | | PDT | | results section. | + +--------+ + + + | CAPILLARY BLOOD | Routin | 04/11/2013 | | Results for this | | GLUCOSE (NO CHG), | e | 6:03 PM | | procedure are in the | | POC | | PDT | | results section. | + +--------+ + + + | CAPILLARY BLOOD | Routin | 04/11/2013 | | Results for this | | GLUCOSE (NO CHG), | e | 12:54 PM | | procedure are in the | | POC | | PDT | | results section. | + +--------+ + + + | LACTATE (ART), POC | Routin | 04/11/2013 | Morbid obesity | Results for this | | ISTAT | e | 12:09 PM | (HCC) | procedure are in the | | | | PDT | | results section. | + +--------+ + + + | HEMOGLOBIN-COOX, POC | Routin | 04/11/2013 | Morbid obesity | Results for this | | | e | 12:09 PM | (HCC) | procedure are in the | | | | PDT | | results section. | + +--------+ + + + | SODIUM, POC | Routin | 04/11/2013 | Morbid obesity | Results for this | | | e | 12:09 PM | (HCC) | procedure are in the | | | | PDT | | results section. | + +--------+ + + + | POTASSIUM, POC | Routin | 04/11/2013 | Morbid obesity | Results for this | | | e | 12:09 PM | (HCC) | procedure are in the | | | | PDT | | results section. | + +--------+ + + + | GLUCOSE, POC | Routin | 04/11/2013 | Morbid obesity | Results for this | | | e | 12:09 PM | (HCC) | procedure are in the | | | | PDT | | results section. | + +--------+ + + + | ARTERIAL BLOOD GAS, | Routin | 04/11/2013 | Morbid obesity | Results for this | | POC | e | 12:09 PM | (HCC) | procedure are in the | | | | PDT | | results section. | + +--------+ + + + | CHLORIDE, POC | Routin | 04/11/2013 | Morbid obesity | Results for this | | | e | 12:09 PM | (HCC) | procedure are in the | | | | PDT | | results section. | + +--------+ + + + | JOS IONIZED CA, POC | Routin | 04/11/2013 | Morbid obesity | Results for this | | | e | 12:09 PM | (HCC) | procedure are in the | | | | PDT | | results section. | + +--------+ + + + | LACTATE (ART), POC | Routin | 04/11/2013 | Morbid obesity | Results for this | | ISTAT | e | 11:21 AM | (HCC) | procedure are in the | | | | PDT | | results section. | + +--------+ + + + | HEMOGLOBIN-COOX, POC | Routin | 04/11/2013 | Morbid obesity | Results for this | | | e | 11:21 AM | (HCC) | procedure are in the | | | | PDT | | results section. | + +--------+ + + + | SODIUM, POC | Routin | 04/11/2013 | Morbid obesity | Results for this | | | e | 11:21 AM | (HCC) | procedure are in the | | | | PDT | | results section. | + +--------+ + + + | POTASSIUM, POC | Routin | 04/11/2013 | Morbid obesity | Results for this | | | e | 11:21 AM | (HCC) | procedure are in the | | | | PDT | | results section. | + +--------+ + + + | GLUCOSE, POC | Routin | 04/11/2013 | Morbid obesity | Results for this | | | e | 11:21 AM | (HCC) | procedure are in the | | | | PDT | | results section. | + +--------+ + + + | ARTERIAL BLOOD GAS, | Routin | 04/11/2013 | Morbid obesity | Results for this | | POC | e | 11:21 AM | (HCC) | procedure are in the | | | | PDT | | results section. | + +--------+ + + + | CHLORIDE, POC | Routin | 04/11/2013 | Morbid obesity | Results for this | | | e | 11:21 AM | (HCC) | procedure are in the | | | | PDT | | results section. | + +--------+ + + + | JOS IONIZED CA, POC | Routin | 04/11/2013 | Morbid obesity | Results for this | | | e | 11:21 AM | (HCC) | procedure are in the | | | | PDT | | results section. | + +--------+ + + + | LACTATE (ART), POC | Routin | 04/11/2013 | Morbid obesity | Results for this | | ISTAT | e | 10:41 AM | (HCC) | procedure are in the | | | | PDT | | results section. | + +--------+ + + + | HEMOGLOBIN-MIKI CISNEROS | Routin | 04/11/2013 | Morbid obesity | Results for this | | | e | 10:41 AM | (HCC) | procedure are in the | | | | PDT | | results section. | + +--------+ + + + | MEDINA POC | Routin | 04/11/2013 | Morbid obesity | Results for this | | | e | 10:41 AM | (HCC) | procedure are in the | | | | PDT | | results section. | + +--------+ + + + | POTASSIUM POC | Routin | 04/11/2013 | Morbid obesity | Results for this | | | e | 10:41 AM | (HCC) | procedure are in the | | | | PDT | | results section. | + +--------+ + + + | GLUCOSE, POC | Routin | 04/11/2013 | Morbid obesity | Results for this | | | e | 10:41 AM | (HCC) | procedure are in the | | | | PDT | | results section. | + +--------+ + + + | ARTERIAL BLOOD GAS, | Routin | 04/11/2013 | Morbid obesity | Results for this | | POC | e | 10:41 AM | (HCC) | procedure are in the | | | | PDT | | results section. | + +--------+ + + + | CHLORIDE, POC | Routin | 04/11/2013 | Morbid obesity | Results for this | | | e | 10:41 AM | (HCC) | procedure are in the | | | | PDT | | results section. | + +--------+ + + + | JOS IONIZED CA, POC | Routin | 04/11/2013 | Morbid obesity | Results for this | | | e | 10:41 AM | (HCC) | procedure are in the | | | | PDT | | results section. | + +--------+ + + + | PANNICULECTOMY (GEN) | Electi | 04/11/2013 | Localized | | | | ve | 9:25 AM | adiposity Fatty | | | | Surgic | PDT | tumor | | | | al | | | | + +--------+ + + + | CAPILLARY BLOOD | Routin | 04/11/2013 | | Results for this | | GLUCOSE (NO CHG), | e | 8:49 AM | | procedure are in the | | POC | | PDT | | results section. | + +--------+ + + + | SURGICAL PATHOLOGY | Routin | 04/11/2013 | | Results for this | | | e | | | procedure are in the | | | | | | results section. | + +--------+ + + + documented in this encounter Results PROCEDURE NOTE (12/09/2015 10:26 PM PST)PROCEDURE NOTE (12/09/2015 10:26 PM PST)PROCEDURE N COLLIN (12/09/2015 10:23 PM PST) + + | Transcriptions | + + | Other, Faculty - 04/17/2013 10:54 AM PDT | + + CAPILLARY BLOOD GLUCOSE (NO CHG), POC (04/14/2013 12:20 PM PDT) + +---------+ + + + | Component | Value | Ref Range | Performed | Pathologist | | | | | At | Signature | + +---------+ + + + | BLOOD | 130 (H) | 60 - 99 mg/dL | [facility] | | | GLU[facility], | | | [place] | | | POC | | | [facility] | | | | | | [facility] CARE | | | | | | TESTS | | + +---------+ + + + + + | Specimen | + + | | + + + + + + + | Performing | Address | City/State/Zipcode | Phone Number | | Organization | | | | + + + + + | [facility] | [phone] | [place], [place] | | | [facility] | [address] | [phone] | | | TESTS | | | | + + + + + CAPILLARY BLOOD GLUCOSE (NO CHG), POC (04/14/2013 7:48 AM PDT) + +---------+ + + + | Component | Value | Ref Range | Performed | Pathologist | | | | | At | Signature | + +---------+ + + + | BLOOD | 171 (H) | 60 - 99 mg/dL | [facility] | | | GLUCOSE, | | | [place] | | | POC | | | [facility] | | | | | | OF CARE | | | | | | TESTS | | + +---------+ + + + + + | Specimen | + + | | + + + + + + + | Performing | Address | City/State/Zipcode | Phone Number | | Organization | | | | + + + + + | [facility] | [phone] | [place] | | | [facility] | [address] | [phone] | | | TESTS | | | | + + + + + CAPILLARY BLOOD GLUCOSE (NO CHG), POC (04/13/2013 8:45 PM PDT) + +---------+ + + + | Component | Value | Ref Range | Performed | Pathologist | | | | | At | Signature | + +---------+ + + + | BLOOD | 136 (H) | 60 - 99 mg/dL | [facility] | | | GLU[facility], | | | [place] | | | POC | | | [place] | | | | | | OF CARE | | | | | | TESTS | | + +---------+ + + + + + | Specimen | + + | | + + + + + + + | Performing | Address | City/State/Zipcode | Phone Number | | Organization | | | | + + + + + | [facility] | [phone] | [place], [place] | | | [facility] | [address] | [phone] | | | TESTS | | | | + + + + + CAPILLARY BLOOD GLUCOSE (NO CHG), POC (04/13/2013 5:42 PM PDT) + +---------+ + + + | Component | Value | Ref Range | Performed | Pathologist | | | | | At | Signature | + +---------+ + + + | BLOOD | 198 (H) | 60 - 99 mg/dL | [facility] | | | [facility], | | | [place] | | | POC | | | [facility] | | | | | | OF CARE | | | | | | TESTS | | + +---------+ + + + + + | Specimen | + + | | + + + + + + + | Performing | Address | City/State/Zipcode | Phone Number | | Organization | | | | + + + + + | [facility] | [phone] | [place], [place] | | | [facility] | [address] | [phone] | | | TESTS | | | | + + + + + CAPILLARY BLOOD GLUCOSE (NO CHG), POC (04/13/2013 12:18 PM PDT) + +---------+ + + + | Component | Value | Ref Range | Performed | Pathologist | | | | | At | Signature | + +---------+ + + + | BLOOD | 138 (H) | 60 - 99 mg/dL | [facility] | | | [facility], | | | [facility] | | | POC | | | [facility] | | | | | | OF CARE | | | | | | TESTS | | + +---------+ + + + + + | Specimen | + + | | + + + + + + + | Performing | Address | City/State/Zipcode | Phone Number | | Organization | | | | + + + + + | [facility] | [phone] | [place] | | | [facility] | [address] | [phone] | | | TESTS | | | | + + + + + CAPILLARY BLOOD GLUCOSE (NO CHG), POC (04/13/2013 8:06 AM PDT) + +---------+ + + + | Component | Value | Ref Range | Performed | Pathologist | | | | | At | Signature | + +---------+ + + + | BLOOD | 183 (H) | 60 - 99 mg/dL | [facility] | | | [facility], | | | [facility] | | | POC | | | [facility] | | | | | | [facility] CARE | | | | | | TESTS | | + +---------+ + + + + + | Specimen | + + | | + + + + + + + | Performing | Address | City/State/Zipcode | Phone Number | | Organization | | | | + + + + + | [facility] | [address] | [place], [place] | | | [facility] | [facility] | [address] | | | TESTS | | | | + + + + + CAPILLARY BLOOD GLUCOSE (NO CHG), POC (04/13/2013 12:14 AM PDT) + +---------+ + + + | Component | Value | Ref Range | Performed | Pathologist | | | | | At | Signature | + +---------+ + + + | BLOOD | 153 (H) | 60 - 99 mg/dL | [facility] | | | [facility], | | | [facility] | | | POC | | | [facility] | | | | | | [facility] CARE | | | | | | TESTS | | + +---------+ + + + + + | Specimen | + + | | + + + + + + + | Performing | Address | City/State/Zipcode | Phone Number | | Organization | | | | + + + + + | [facility] | [address] | [place], [place] | | | [facility] | [address] | [address] | | | TESTS | | | | + + + + + CAPILLARY BLOOD GLUCOSE (NO CHG), POC (04/12/2013 9:45 PM PDT) + +---------+ + + + | Component | Value | Ref Range | Performed | Pathologist | | | | | At | Signature | + +---------+ + + + | BLOOD | 231 (H) | 60 - 99 mg/dL | [facility] | | | GLUCOSE, | | | [facility] | | | POC | | | [facility] | | | | | | OF CARE | | | | | | TESTS | | + +---------+ + + + + + | Specimen | + + | | + + + + + + + | Performing | Address | City/State/Zipcode | Phone Number | | Organization | | | | + + + + + | [facility] | [address] | [place], [place] | | | [facility] | [address] | [address] | | | TESTS | | | | + + + + + CAPILLARY BLOOD GLUCOSE (NO CHG), POC (04/12/2013 7:41 PM PDT) + +---------+ + + + | Component | Value | Ref Range | Performed | Pathologist | | | | | At | Signature | + +---------+ + + + | BLOOD | 228 (H) | 60 - 99 mg/dL | [facility] | | | GLUCOSE, | | | [facility] | | | POC | | | [facility] | | | | | | OF CARE | | | | | | TESTS | | + +---------+ + + + + + | Specimen | + + | | + + + + + + + | Performing | Address | City/State/Zipcode | Phone Number | | Organization | | | | + + + + + | [facility] | [address] | [place], [place] | | | [facility] | [address] | [address] | | | TESTS | | | | + + + + + CAPILLARY BLOOD GLUCOSE (NO CHG), POC (04/12/2013 6:06 PM PDT) + +---------+ + + + | Component | Value | Ref Range | Performed | Pathologist | | | | | At | Signature | + +---------+ + + + | BLOOD | 241 (H) | 60 - 99 mg/dL | [facility] | | | GLUCOSE, | | | [facility] | | | POC | | | [facility] | | | | | | OF CARE | | | | | | TESTS | | + +---------+ + + + + + | Specimen | + + | | + + + + + + + | Performing | Address | City/State/Zipcode | Phone Number | | Organization | | | | + + + + + | [facility] | [address] | [place], [place] | | | [facility] | [address] | [address] | | | TESTS | | | | + + + + + CAPILLARY BLOOD GLUCOSE (NO CHG), POC (04/12/2013 12:45 PM PDT) + +---------+ + + + | Component | Value | Ref Range | Performed | Pathologist | | | | | At | Signature | + +---------+ + + + | BLOOD | 200 (H) | 60 - 99 mg/dL | [facility] | | | GLUCOSE, | | | [facility] | | | POC | | | [facility] | | | | | | OF CARE | | | | | | TESTS | | + +---------+ + + + + + | Specimen | + + | | + + + + + + + | Performing | Address | City/State/Zipcode | Phone Number | | Organization | | | | + + + + + | [facility] | [address] | [place], [place] | | | [facility] | [address] | [address] | | | TESTS | | | | + + + + + CAPILLARY BLOOD GLUCOSE (NO CHG), POC (04/12/2013 8:17 AM PDT) + +---------+ + + + | Component | Value | Ref Range | Performed | Pathologist | | | | | At | Signature | + +---------+ + + + | BLOOD | 192 (H) | 60 - 99 mg/dL | [facility] | | | GLUCOSE, | | | [facility] | | | POC | | | [facility] | | | | | | OF CARE | | | | | | TESTS | | + +---------+ + + + + + | Specimen | + + | | + + + + + + + | Performing | Address | City/State/Zipcode | Phone Number | | Organization | | | | + + + + + | [facility] | [address] | [place], [place] | | | [facility] | [address] | [address] | | | TESTS | | | | + + + + + CBC (04/12/2013 4:48 AM PDT) + + + + + + | Component | Value | Ref Range | Performed | Pathologist | | | | | At | Signature | + + + + + + | WBC COUNT | 9.0 | 4.4 - 11.0 K/cu | [facility] | | | | | mm | LABORATORY | | | | | | SERVICES, | | | | | | CORE | | + + + + + + | RED CELL | 4.37 (L) | 4.50 - 5.90 | [facility] | | | COUNT | | M/cu mm | LABORATORY | | | | | | SERVICES, | | | | | | CORE | | + + + + + + | HEMOGLOBIN | 11.9 (L) | 13.5 - 17.5 | [facility] | | | | | g/dL | LABORATORY | | | | | | SERVICES, | | | | | | CORE | | + + + + + + | HEMATOCRIT | 37.3 (L) | 41.0 - 53.0 % | [facility] | | | | | | LABORATORY | | | | | | SERVICES, | | | | | | CORE | | + + + + + + | MCV | 85.4 | 80.0 - 96.0 fL | [facility] | | | | | | LABORATORY | | | | | | SERVICES, | | | | | | CORE | | + + + + + + | MCHC | 32.0 (L) | 33.4 - 35.5 | [facility] | | | | | g/dL | LABORATORY | | | | | | SERVICES, | | | | | | CORE | | + + + + + + | RDW | 16.1 (H) | 11.5 - 15.0 % | [facility] | | | | | | LABORATORY | | | | | | SERVICES, | | | | | | CORE | | + + + + + + | PLATELET | 243 | 150 - 400 K/cu | [facility] | | | COUNT | | mm | LABORATORY | | | | | | SERVICES, | | | | | | CORE | | + + + + + + + + | Specimen | + + | Blood - Blood | + + + + + + + | Performing | Address | City/State/Zipcode | Phone Number | | Organization | | | | + + + + + | [facility] | [address] | [place] [address] | | | SERVICES, CORE | [address] | | | + + + + + MAGNESIUM, PLASMA (04/12/2013 4:48 AM PDT) + +---------+ + + + | Component | Value | Ref Range | Performed | Pathologist | | | | | At | Signature | + +---------+ + + + | MAGNESIUM,P | 1.5 (L) | 1.8 - 2.5 mg/dL | [facility] | | | LASMA | | | LABORATORY | | | | | | SERVICES, | | | | | | CORE | | + +---------+ + + + + + | Specimen | + + | Blood - Blood | + + + + + + + | Performing | Address | City/State/Zipcode | Phone Number | | Organization | | | | + + + + + | [facility] [employer] | [address] | [place] [address] | | | SERVICES, CORE | [address] | | | + + + + + RENAL FUNCTION SET (NA,K,CL,CO2,BUN,CREAT,GLUC,CA,PHOS,ALB ) (04/12/2013 4:48 AM PDT) + +---------+ + + + | Component | Value | Ref Range | Performed | Pathologist | | | | | At | Signature | + +---------+ + + + | GLUCOSE, | 149 (H) | 60 - 99 mg/dL | [facility] | | | PLASMA | | | LABORATORY | | | (LAB) | | | SERVICES, | | | | | | CORE | | + +---------+ + + + | BUN, PLASMA | 16 | 6 - 20 mg/dL | [facility] | | | (LAB) | | | LABORATORY | | | | | | SERVICES, | | | | | | CORE | | + +---------+ + + + | CREATININE | 0.79 | 0.70 - 1.30 | [facility] | | | PLASMA | | mg/dL | LABORATORY | | | (LAB) | | | SERVICES, | | | | | | CORE | | + +---------+ + + + | EGFR | >60 | >60 mL/min | [facility] | | | - | | | LABORATORY | | | TOGOLESE | | | SERVICES, | | | | | | CORE | | + +---------+ + + + | EGFR NON | >60 | >60 mL/min | [facility] | | | -ARTIE | | | LABORATORY | | | RICAN | | | SERVICES, | | | | | | CORE | | + +---------+ + + + | SODIUM, | 140 | 136 - 145 | [facility] | | | PLASMA | | mmol/L | LABORATORY | | | (LAB) | | | SERVICES, | | | | | | CORE | | + +---------+ + + + | POTASSIUM, | 3.7 | 3.4 - 5.0 | [facility] | | | PLASMA | | mmol/L | LABORATORY | | | (LAB) | | | SERVICES, | | | | | | CORE | | + +---------+ + + + | CHLORIDE, | 105 | 97 - 108 mmol/L | [facility] | | | PLASMA | | | LABORATORY | | | (LAB) | | | SERVICES, | | | | | | CORE | | + +---------+ + + + | TOTAL CO2, | 25 | 21 - 32 mmol/L | [facility] | | | PLASMA | | | LABORATORY | | | (LAB) | | | SERVICES, | | | | | | CORE | | + +---------+ + + + | CALCIUM, | 8.3 (L) | 8.6 - 10.2 | [facility] | | | PLASMA | | mg/dL | LABORATORY | | | (LAB) | | | SERVICES, | | | | | | CORE | | + +---------+ + + + | ALBUMIN, | 2.8 (L) | 3.5 - 4.7 g/dL | [facility] | | | PLASMA | | | LABORATORY | | | (LAB) | | | SERVICES, | | | | | | CORE | | + +---------+ + + + | PHOSPHORUS, | 3.7 | 2.4 - 4.7 mg/dL | [facility] | | | PLASMA | | | LABORATORY | | | (LAB) | | | SERVICES, | | | | | | CORE | | + +---------+ + + + | POTASSIUM | No Hemo | | [facility] | | | CMNT | | | LABORATORY | | | | | | SERVICES, | | | | | | CORE | | + +---------+ + + + | ANION GAP | 10 | mmol/L | [facility] | | | | | | LABORATORY | | | | | | SERVICES, | | | | | | CORE | | + +---------+ + + + | ANION | 13 (H) | 4 - 11 mmol/L | [facility] | | | GAP(ALB | | | LABORATORY | | | CORRECTED) | | | SERVICES, | | | | | | CORE | | + +---------+ + + + + + | Specimen | + + | Blood - Blood | + + + + + | Narrative | Performed At | + + + | GFR is estimated using the MDRD equation recommended by the | [facility] | | National Kidney Disease Education Program. Estimated GFR | LABORATORY | | Interpretive Information: <60 mL/min/1.73 sq m | SERVICES, CORE | | Chronic Kidney Disease <15 mL/min/1.73 sq m | | | Kidney Failure Estimated GFR greater that 60 mL/min/1.73 sq m is of | | | limited clinical value. The MDRD equation is not valid in the | | | following situations: - Patients under 18 years of age - Severe | | | malnutrition or obesity - Vegetarian diet - Rapidly changing kidney | | | function | | + + + + + + + + | Performing | Address | City/State/Zipcode | Phone Number | | Organization | | | | + + + + + | [facility] | [address] [address] | [place] [address] | | | SERVICES, CORE | [address] | | | + + + + + CAPILLARY BLOOD GLUCOSE (NO CHG), POC (04/11/2013 9:11 PM PDT) + +---------+ + + + | Component | Value | Ref Range | Performed | Pathologist | | | | | At | Signature | + +---------+ + + + | BLOOD | 182 (H) | 60 - 99 mg/dL | [facility] | | | GLUCOSE, | | | [facility] | | | POC | | | [facility] | | | | | | OF CARE | | | | | | TESTS | | + +---------+ + + + + + | Specimen | + + | | + + + + + + + | Performing | Address | City/State/Zipcode | Phone Number | | Organization | | | | + + + + + | [facility] | [address] | [place], [place] | | | [facility] | [facility] | [address] | | | TESTS | | | | + + + + + CAPILLARY BLOOD GLUCOSE (NO CHG), POC (04/11/2013 7:58 PM PDT) + +---------+ + + + | Component | Value | Ref Range | Performed | Pathologist | | | | | At | Signature | + +---------+ + + + | BLOOD | 205 (H) | 60 - 99 mg/dL | [facility] - | | | GLUCOSE, | | | [facility] | | | POC | | | [facility] | | | | | | OF CARE | | | | | | TESTS | | + +---------+ + + + + + | Specimen | + + | | + + + + + + + | Performing | Address | City/State/Zipcode | Phone Number | | Organization | | | | + + + + + | [facility] | [address] | [place], [place] | | | [facility] | [address] | [address] | | | TESTS | | | | + + + + + CAPILLARY BLOOD GLUCOSE (NO CHG), POC (04/11/2013 6:03 PM PDT) + +---------+ + + + | Component | Value | Ref Range | Performed | Pathologist | | | | | At | Signature | + +---------+ + + + | BLOOD | 223 (H) | 60 - 99 mg/dL | [facility] | | | GLUCOSE, | | | [facility] | | | POC | | | [facility] | | | | | | OF CARE | | | | | | TESTS | | + +---------+ + + + + + | Specimen | + + | | + + + + + + + | Performing | Address | City/State/Zipcode | Phone Number | | Organization | | | | + + + + + | [facility] | [address] | [place], [place] | | | [facility] | [address] | [address] | | | TESTS | | | | + + + + + CAPILLARY BLOOD GLUCOSE (NO CHG), POC (04/11/2013 12:54 PM PDT) + +---------+ + + + | Component | Value | Ref Range | Performed | Pathologist | | | | | At | Signature | + +---------+ + + + | BLOOD | 146 (H) | 60 - 99 mg/dL | [facility] - | | | GLUCOSE, | | | [facility] | | | POC | | | [facility] | | | | | | OF CARE | | | | | | TESTS | | + +---------+ + + + + + | Specimen | + + | | + + + + + + + | Performing | Address | City/State/Zipcode | Phone Number | | Organization | | | | + + + + + | [facility] | [address] | [place], [place] | | | [facility] | [facility] | [address] | | | TESTS | | | | + + + + + LACTATE (ART), POC SOR (04/11/2013 12:09 PM PDT) + +---------+ + + + | Component | Value | Ref Range | Performed | Pathologist | | | | | At | Signature | + +---------+ + + + | LACTATE POC | 2.1 (H) | 0.5 - 1.6 | [facility] | | | | | mmol/L | [facility] | | | | | | [facility] | | | | | | OF CARE | | | | | | TESTS | | + +---------+ + + + + + | Specimen | + + | | + + + + + + + | Performing | Address | City/State/Zipcode | Phone Number | | Organization | | | | + + + + + | [facility] | [address] | [place], [place] | | | [facility] | [address] | [address] | | | TESTS | | | | + + + + + SODIUM (ART)MIKI (04/11/2013 12:09 PM PDT) + +-------+ + + + | Component | Value | Ref Range | Performed | Pathologist | | | | | At | Signature | + +-------+ + + + | SODIUM, POC | 139 | 134 - 143 | [facility] - | | | | | mmol/L | [facility] | | | | | | [facility] | | | | | | OF CARE | | | | | | TESTS | | + +-------+ + + + + + | Specimen | + + | | + + + + + + + | Performing | Address | City/State/Zipcode | Phone Number | | Organization | | | | + + + + + | [facility] | [address] | [place], [place] | | | [facility] | [address] | [address] | | | TESTS | | | | + + + + + POTASSIUM (ART), POC SOR (04/11/2013 12:09 PM PDT) + +-------+ + + + | Component | Value | Ref Range | Performed | Pathologist | | | | | At | Signature | + +-------+ + + + | POTASSIUM, | 3.7 | 3.4 - 5.0 | [facility] - | | | POC | | mmol/L | [facility] | | | | | | [facility] | | | | | | OF CARE | | | | | | TESTS | | + +-------+ + + + + + | Specimen | + + | | + + + + + + + | Performing | Address | City/State/Zipcode | Phone Number | | Organization | | | | + + + + + | [facility] | [address] | [place], [place] | | | [facility] | [address] | [address] | | | TESTS | | | | + + + + + GLUCOSE (ART), POC SOR (04/11/2013 12:09 PM PDT) + +---------+ + + + | Component | Value | Ref Range | Performed | Pathologist | | | | | At | Signature | + +---------+ + + + | GLUCOSE, | 165 (H) | 60 - 99 mg/dL | [facility] - | | | POC | | | [facility] | | | | | | [facility] | | | | | | OF CARE | | | | | | TESTS | | + +---------+ + + + + + | Specimen | + + | | + + + + + + + | Performing | Address | City/State/Zipcode | Phone Number | | Organization | | | | + + + + + | [facility] | [address] | [place], [place] | | | [facility] | [facility] | [address] | | | TESTS | | | | + + + + + CHLORIDE (ART)MIKI (04/11/2013 12:09 PM PDT) + +-------+ + + + | Component | Value | Ref Range | Performed | Pathologist | | | | | At | Signature | + +-------+ + + + | CHLORIDE, | 105 | 97 - 108 mmol/L | [facility] - | | | POC | | | [facility] | | | | | | [facility] | | | | | | OF CARE | | | | | | TESTS | | + +-------+ + + + + + | Specimen | + + | | + + + + + + + | Performing | Address | City/State/Zipcode | Phone Number | | Organization | | | | + + + + + | [facility] | [address] | [place], [place] | | | [facility] | [address] | [address] | | | TESTS | | | | + + + + + CALCIUM (ART), POC SOR (04/11/2013 12:09 PM PDT) + +-------+ + + + | Component | Value | Ref Range | Performed | Pathologist | | | | | At | Signature | + +-------+ + + + | JOS | 1.14 | 1.14 - 1.32 | [facility] - | | | IONIZED CA, | | mmol/L | [facility] | | | POC | | | [facility] | | | | | | OF CARE | | | | | | TESTS | | + +-------+ + + + + + | Specimen | + + | | + + + + + + + | Performing | Address | City/State/Zipcode | Phone Number | | Organization | | | | + + + + + | [facility] | [address] | [place], [place] | | | [facility] | [address] | [address] | | | TESTS | | | | + + + + + HEMOGLOBIN (ART), POC SOR (04/11/2013 12:09 PM PDT) + + + + + + | Component | Value | Ref Range | Performed | Pathologist | | | | | At | Signature | + + + + + + | TOTAL | 13.4 (L) | 13.5 - 17.5 | [facility] - | | | HEMOGLOBIN, | | g/dL | [facility] | | | POC | | | [facility] | | | | | | OF CARE | | | | | | TESTS | | + + + + + + | OXYHEMOGLOB | 98.7 | 94.0 - 100 % | [facility] - | | | IN, POC | | | [facility] | | | | | | [facility], POINT | | | | | | OF CARE | | | | | | TESTS | | + + + + + + | CARBOXYHEMO | 1.3 | 0.0 - 1.5 % | [facility] - | | | GLOBIN, POC | | | [facility] | | | | | | [facility] | | | | | | OF CARE | | | | | | TESTS | | + + + + + + | METHEMOGLOB | 0.7 | 0.0 - 1.9 % | [facility] - | | | IN, POC | | | [facility] | | | | | | [place], POINT | | | | | | OF CARE | | | | | | TESTS | | + + + + + + | HEMATOCRIT, | 41.0 | 41.0 - 53.0 % | [facility] - | | | POC | | | [facility] | | | | | | [place] POINT | | | | | | OF CARE | | | | | | TESTS | | + + + + + + + + | Specimen | + + | | + + + + + + + | Performing | Address | City/State/Zipcode | Phone Number | | Organization | | | | + + + + + | [facility] | [address] | [place], [place] | | | [facility] | [address] | [address] | | | TESTS | | | | + + + + + ARTERIAL BLOOD GAS, POC (04/11/2013 12:09 PM PDT) + + + + + + | Component | Value | Ref Range | Performed | Pathologist | | | | | At | Signature | + + + + + + | PH | 7.36 (L) | 7.37 - 7.44 | [facility] - | | | ARTERIAL, | | | [facility] | | | POC | | | [facility] | | | | | | OF CARE | | | | | | TESTS | | + + + + + + | PO2 | 449 (H) | 72 - 104 mmHg | [facility] - | | | ARTERIAL, | | | [facility] | | | POC | | | [facility] | | | | | | OF CARE | | | | | | TESTS | | + + + + + + | PCO2 | 46 (H) | 32 - 43 mmHg | [facility] - | | | ARTERIAL, | | | [facility] | | | POC | | | [facility] | | | | | | OF CARE | | | | | | TESTS | | + + + + + + | O2 SAT | 100.7 (H) | 92.0 - 98.0 % | [facility] - | | | ARTERIAL, | | | [facility] | | | POC | | | [facility] | | | | | | OF CARE | | | | | | TESTS | | + + + + + + | HCO3 | 25.5 | 21 - 28 mmol/L | [facility] - | | | ARTERIAL, | | | [facility] | | | POC | | | [facility] | | | | | | OF CARE | | | | | | TESTS | | + + + + + + + + | Specimen | + + | | + + + + + + + | Performing | Address | City/State/Zipcode | Phone Number | | Organization | | | | + + + + + | [facility] | [address] | [place], [place] | | | [facility] | [address] | [address] | | | TESTS | | | | + + + + + LACTATE (ART), POC SOR (04/11/2013 11:21 AM PDT) + +---------+ + + + | Component | Value | Ref Range | Performed | Pathologist | | | | | At | Signature | + +---------+ + + + | LACTATE POC | 2.0 (H) | 0.5 - 1.6 | [facility] | | | | | mmol/L | [facility] | | | | | | [facility] | | | | | | OF CARE | | | | | | TESTS | | + +---------+ + + + + + | Specimen | + + | | + + + + + + + | Performing | Address | City/State/Zipcode | Phone Number | | Organization | | | | + + + + + | [facility] | [address] | [place], [place] | | | [facility] | [address] | [address] | | | TESTS | | | | + + + + + SODIUM (ART), POC SOR (04/11/2013 11:21 AM PDT) + +-------+ + + + | Component | Value | Ref Range | Performed | Pathologist | | | | | At | Signature | + +-------+ + + + | SODIUM, POC | 138 | 134 - 143 | [facility] - | | | | | mmol/L | [facility] | | | | | | [facility] | | | | | | OF CARE | | | | | | TESTS | | + +-------+ + + + + + | Specimen | + + | | + + + + + + + | Performing | Address | City/State/Zipcode | Phone Number | | Organization | | | | + + + + + | [facility] | [address] | [place], [place] | | | [facility] | [address] | [address] | | | TESTS | | | | + + + + + POTASSIUM (ART)MIKI (04/11/2013 11:21 AM PDT) + +-------+ + + + | Component | Value | Ref Range | Performed | Pathologist | | | | | At | Signature | + +-------+ + + + | POTASSIUM, | 4.0 | 3.4 - 5.0 | [facility] - | | | POC | | mmol/L | [facility] | | | | | | [facility] | | | | | | OF CARE | | | | | | TESTS | | + +-------+ + + + + + | Specimen | + + | | + + + + + + + | Performing | Address | City/State/Zipcode | Phone Number | | Organization | | | | + + + + + | [facility] | [address] | [place], [place] | | | [facility] | [facility] | [address] | | | TESTS | | | | + + + + + GLUCOSE (ART), POC SOR (04/11/2013 11:21 AM PDT) + +---------+ + + + | Component | Value | Ref Range | Performed | Pathologist | | | | | At | Signature | + +---------+ + + + | GLUCOSE, | 241 (H) | 60 - 99 mg/dL | [facility] - | | | POC | | | [facility] | | | | | | [facility] | | | | | | OF CARE | | | | | | TESTS | | + +---------+ + + + + + | Specimen | + + | | + + + + + + + | Performing | Address | City/State/Zipcode | Phone Number | | Organization | | | | + + + + + | [facility] | [address] | [place], [place] | | | [facility] | [address] | [address] | | | TESTS | | | | + + + + + CHLORIDE (ART), POC SOR (04/11/2013 11:21 AM PDT) + +-------+ + + + | Component | Value | Ref Range | Performed | Pathologist | | | | | At | Signature | + +-------+ + + + | CHLORIDE, | 104 | 97 - 108 mmol/L | [facility] | | | POC | | | [facility] | | | | | | [facility] | | | | | | OF CARE | | | | | | TESTS | | + +-------+ + + + + + | Specimen | + + | | + + + + + + + | Performing | Address | City/State/Zipcode | Phone Number | | Organization | | | | + + + + + | [facility] | [address] | [place], [place] | | | [facility] | [address] | [address] | | | TESTS | | | | + + + + + CALCIUM (ART)MIKI (04/11/2013 11:21 AM PDT) + +-------+ + + + | Component | Value | Ref Range | Performed | Pathologist | | | | | At | Signature | + +-------+ + + + | JOS | 1.14 | 1.14 - 1.32 | [facility] | | | IONIZED CA, | | mmol/L | [facility] | | | POC | | | [facility] | | | | | | OF CARE | | | | | | TESTS | | + +-------+ + + + + + | Specimen | + + | | + + + + + + + | Performing | Address | City/State/Zipcode | Phone Number | | Organization | | | | + + + + + | [facility] | [address] | [place], [place] | | | [facility] | [address] | [address] | | | TESTS | | | | + + + + + HEMOGLOBIN (ART), POC SOR (04/11/2013 11:21 AM PDT) + +-------+ + + + | Component | Value | Ref Range | Performed | Pathologist | | | | | At | Signature | + +-------+ + + + | TOTAL | 13.6 | 13.5 - 17.5 | [facility] - | | | HEMOGLOBIN, | | g/dL | [facility] | | | POC | | | [facility] | | | | | | OF CARE | | | | | | TESTS | | + +-------+ + + + | OXYHEMOGLOB | 98.3 | 94.0 - 100 % | [facility] | | | IN, POC | | | [facility] | | | | | | [facility] | | | | | | OF CARE | | | | | | TESTS | | + +-------+ + + + | CARBOXYHEMO | 1.3 | 0.0 - 1.5 % | [facility] | | | GLOBIN, POC | | | [facility] | | | | | | [facility] | | | | | | OF CARE | | | | | | TESTS | | + +-------+ + + + | METHEMOGLOB | 0.8 | 0.0 - 1.9 % | [facility] - | | | IN, POC | | | [facility] | | | | | | [facility] | | | | | | OF CARE | | | | | | TESTS | | + +-------+ + + + | HEMATOCRIT, | 41.7 | 41.0 - 53.0 % | [facility] | | | POC | | | [facility] | | | | | | [facility] | | | | | | OF CARE | | | | | | TESTS | | + +-------+ + + + + + | Specimen | + + | | + + + + + + + | Performing | Address | City/State/Zipcode | Phone Number | | Organization | | | | + + + + + | [facility] | [address] | [place], [place] | | | [facility] | [address] | [address] | | | TESTS | | | | + + + + + ARTERIAL BLOOD GAS, POC (04/11/2013 11:21 AM PDT) + + + + + + | Component | Value | Ref Range | Performed | Pathologist | | | | | At | Signature | + + + + + + | PH | 7.37 | 7.37 - 7.44 | [facility] | | | ARTERIAL, | | | [facility] | | | POC | | | [facility] | | | | | | OF CARE | | | | | | TESTS | | + + + + + + | PO2 | 257 (H) | 72 - 104 mmHg | [facility] | | | ART[facility], | | | [facility] | | | POC | | | [facility] | | | | | | OF CARE | | | | | | TESTS | | + + + + + + | PCO2 | 43 (H) | 32 - 43 mmHg | [facility] | | | [facility], | | | [facility] | | | POC | | | [facility] | | | | | | OF CARE | | | | | | TESTS | | + + + + + + | O2 SAT | 100.4 (H) | 92.0 - 98.0 % | [facility] | | | ART[facility], | | | [facility] | | | POC | | | [facility] | | | | | | OF CARE | | | | | | TESTS | | + + + + + + | HCO3 | 25.1 | 21 - 28 mmol/L | [facility] | | | ART[facility], | | | [facility] | | | POC | | | [facility] | | | | | | OF CARE | | | | | | TESTS | | + + + + + + + + | Specimen | + + | | + + + + + + + | Performing | Address | City/State/Zipcode | Phone Number | | Organization | | | | + + + + + | [facility] | [address] | [place], [place] | | | [facility] | [address] | [address] | | | TESTS | | | | + + + + + YUMI (MANUEL)MIKI (04/11/2013 10:41 AM PDT) + +-------+ + + + | Component | Value | Ref Range | Performed | Pathologist | | | | | At | Signature | + +-------+ + + + | LACTATE POC | 1.6 | 0.5 - 1.6 | [facility] | | | | | mmol/L | [facility] | | | | | | [facility] | | | | | | [facility]ARE | | | | | | TESTS | | + +-------+ + + + + + | Specimen | + + | | + + + + + + + | Performing | Address | City/State/Zipcode | Phone Number | | Organization | | | | + + + + + | [facility] | [address] | [place], [place] | | | [facility] | [address] | [address] | | | TESTS | | | | + + + + + SODIUM (ART), POC SOR (04/11/2013 10:41 AM PDT) + +-------+ + + + | Component | Value | Ref Range | Performed | Pathologist | | | | | At | Signature | + +-------+ + + + | SODIUM, POC | 135 | 134 - 143 | [facility] | | | | | mmol/L | [facility] | | | | | | [facility] | | | | | | [facility] | | | | | | TESTS | | + +-------+ + + + + + | Specimen | + + | | + + + + + + + | Performing | Address | City/State/Zipcode | Phone Number | | Organization | | | | + + + + + | [facility] | [address] | [place], [place] | | | [facility] | [address] | [phone] | | | TESTS | | | | + + + + + POTASSIUM (ART), POC SOR (04/11/2013 10:41 AM PDT) + +-------+ + + + | Component | Value | Ref Range | Performed | Pathologist | | | | | At | Signature | + +-------+ + + + | POTASSIUM, | 4.0 | 3.4 - 5.0 | [facility] | | | POC | | mmol/L | [place] | | | | | | [facility] | | | | | | [facility] | | | | | | TESTS | | + +-------+ + + + + + | Specimen | + + | | + + + + + + + | Performing | Address | City/State/Zipcode | Phone Number | | Organization | | | | + + + + + | [facility] | [address] | [place], [place] | | | [facility] | [address] | [phone] | | | TESTS | | | | + + + + + GLUCOSE (ART), POC SOR (04/11/2013 10:41 AM PDT) + +---------+ + + + | Component | Value | Ref Range | Performed | Pathologist | | | | | At | Signature | + +---------+ + + + | GLUCOSE, | 284 (H) | 60 - 99 mg/dL | [facility] | | | POC | | | [place] | | | | | | [facility] | | | | | | [facility] | | | | | | TESTS | | + +---------+ + + + + + | Specimen | + + | | + + + + + + + | Performing | Address | City/State/Zipcode | Phone Number | | Organization | | | | + + + + + | [facility] | [address] | [place], [place] | | | [facility] | [address] | [phone] | | | TESTS | | | | + + + + + CHLORIDE (ART), POC SOR (04/11/2013 10:41 AM PDT) + +-------+ + + + | Component | Value | Ref Range | Performed | Pathologist | | | | | At | Signature | + +-------+ + + + | CHLORIDE, | 102 | 97 - 108 mmol/L | [facility] | | | POC | | | [place] | | | | | | [facility] | | | | | | [facility] | | | | | | TESTS | | + +-------+ + + + + + | Specimen | + + | | + + + + + + + | Performing | Address | City/State/Zipcode | Phone Number | | Organization | | | | + + + + + | [facility] | [address] | [place], [place] | | | [facility] | [address] | [phone] | | | TESTS | | | | + + + + + CALCIUM (ART)MIKI SOR (04/11/2013 10:41 AM PDT) + +-------+ + + + | Component | Value | Ref Range | Performed | Pathologist | | | | | At | Signature | + +-------+ + + + | JOS | 1.16 | 1.14 - 1.32 | [facility] - | | | IONIZED CA, | | mmol/L | [facility] | | | POC | | | [facility] | | | | | | [facility] | | | | | | TESTS | | + +-------+ + + + + + | Specimen | + + | | + + + + + + + | Performing | Address | City/State/Zipcode | Phone Number | | Organization | | | | + + + + + | [facility] | [address] | [place], [place] | | | [facility] | [address] | [address] | | | TESTS | | | | + + + + + HEMOGLOBIN (ART), POC SOR (04/11/2013 10:41 AM PDT) + + + + + + | Component | Value | Ref Range | Performed | Pathologist | | | | | At | Signature | + + + + + + | TOTAL | 13.4 (L) | 13.5 - 17.5 | [facility] - | | | HEMOGLOBIN, | | g/dL | [facility] | | | POC | | | [facility] | | | | | | [facility] | | | | | | TESTS | | + + + + + + | OXYHEMOGLOB | 98.4 | 94.0 - 100 % | [facility] | | | IN, POC | | | [place] | | | | | | [facility] | | | | | | OF [facility] | | | | | | TESTS | | + + + + + + | CARBOXYHEMO | 1.3 | 0.0 - 1.5 % | [facility] | | | GLOBIN, POC | | | [place] | | | | | | [facility] | | | | | | OF [facility] | | | | | | TESTS | | + + + + + + | METHEMOGLOB | 0.8 | 0.0 - 1.9 % | [facility] - | | | IN, POC | | | [place] | | | | | | [facility] | | | | | | OF [facility] | | | | | | TESTS | | + + + + + + | HEMATOCRIT, | 41.2 | 41.0 - 53.0 % | [facility] | | | POC | | | [place] | | | | | | [facility] | | | | | | [facility] | | | | | | TESTS | | + + + + + + + + | Specimen | + + | | + + + + + + + | Performing | Address | City/State/Zipcode | Phone Number | | Organization | | | | + + + + + | [facility] | [address] | [place], [place] | | | [facility] | [address] | [phone] | | | TESTS | | | | + + + + + ARTERIAL BLOOD GAS, POC (04/11/2013 10:41 AM PDT) + + + + + + | Component | Value | Ref Range | Performed | Pathologist | | | | | At | Signature | + + + + + + | PH | 7.37 (L) | 7.37 - 7.44 | [facility] | | | ARTERIAL, | | | [facility] | | | POC | | | [facility] | | | | | | [facility]ARE | | | | | | TESTS | | + + + + + + | PO2 | 272 (H) | 72 - 104 mmHg | [facility] | | | ARTERIAL, | | | [place] | | | POC | | | [facility] | | | | | | [facility]ARE | | | | | | TESTS | | + + + + + + | PCO2 | 45 (H) | 32 - 43 mmHg | [facility] | | | ARTERIAL, | | | [place] | | | POC | | | [facility] | | | | | | [facility] | | | | | | TESTS | | + + + + + + | O2 SAT | 100.5 (H) | 92.0 - 98.0 % | [facility] | | | ARTERIAL, | | | [place] | | | POC | | | [facility] | | | | | | [facility]ARE | | | | | | TESTS | | + + + + + + | HCO3 | 25.8 | 21 - 28 mmol/L | [facility] | | | ARTERIAL, | | | [place] | | | POC | | | [facility] | | | | | | OF CARE | | | | | | TESTS | | + + + + + + + + | Specimen | + + | | + + + + + + + | Performing | Address | City/State/Zipcode | Phone Number | | Organization | | | | + + + + + | [facility] | [address] | [place], [place] | | | [facility] | [facility] | [phone] | | | TESTS | | | | + + + + + CAPILLARY BLOOD GLUCOSE (NO CHG), POC (04/11/2013 8:49 AM PDT) + +---------+ + + + | Component | Value | Ref Range | Performed | Pathologist | | | | | At | Signature | + +---------+ + + + | BLOOD | 271 (H) | 60 - 99 mg/dL | [facility] | | | GLUCOSE, | | | [place] | | | POC | | | [facility] | | | | | | OF [facility]ARE | | | | | | TESTS | | + +---------+ + + + + + | Specimen | + + | | + + + + + + + | Performing | Address | City/State/Zipcode | Phone Number | | Organization | | | | + + + + + | [facility] | 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 Vikki | | | | | | Berry | | | | | | M.D./Pathologist | | | | | | Clinical History:The | | | | | | patient is a 48-year-old | | | | | | male. Gross | | | | | | Description:Received is | | | | | | 1 specimen fresh in a | | | | | | bag labeled with the | | | | | | patient name(initials | | | | | | SUNNY) and "pannus." | | | | | | Received is a 29-pound | | | | | | segment of skin | | | | | | andadipose tissue | | | | | | measuring 18 x 24 x 14 | | | | | | cm. The resection | | | | | | margin consists offatty, | | | | | | yellow, soft tissue and | | | | | | vasculature with | | | | | | cautery. The skin | | | | | | isdiffusely firm and | | | | | | discolored with an | | | | | | irregular surface. The | | | | | | specimen isserially | | | | | | sectioned revealing | | | | | | fibrous adipose tissue | | | | | | without gross | | | | | | lesions.Pathologist Assistant | | | | | | sections are submitted. | | | | | | Cassette | | | | | | Index:[id number] My | | | | | | electronic signature | | | | | | indicates that I have | | | | | | personally reviewed | | | | | | alldiagnostic slides, | | | | | | the gross and/or | | | | | | microscopic portion of | | | | | | thisreport and | | | | | | formulated the final | | | | | | diagnosis. | | | | | | Rendering Diagnostician: | | | | | | Anival Smart | | | | | | MAndresPathologistElectroni | | | | | | janene Signed 04/15/2013 | | | | | | 3:52PM | | | | + + + + + + + + | Specimen | + + | | + + + + + + + | Performing | Address | City/State/Zipcode | Phone Number | | Organization | | | | + + + + + | [facility] | [address] | [place] [address] | | | PATHOLOGY | [address] | | | + + + + + documented in this encounter Visit Diagnoses + + | Diagnosis | + + | Morbid obesity (HCC) - Primary Morbid obesity | + + documented in this encounter Administered Medications + +---------+ + +------+------+ | Medication Order | MAR | Action | Dose | Rate | Site | | | Action | Date | | | | + +---------+ + +------+------+ | acetaminophen (aka OFIRMEV) IV | New Bag | 04/11/20 | 1,000 mg | | | | 1,000 mg 1,000 mg, intravenous, | | 13 1:21 | | | | | ONCE, 1 dose, Sun04/11/13 at 1330 | | PM PDT | | | | + +---------+ + +------+------+ +---+---+ | | | +---+---+ + +-------+ +-------+---+---+ | aspirin chewable tablet 81 mg | Given | 04/14/20 | 81 mg | | | | 81 mg, oral, DAILY, First dose on | | 13 8:05 | | | | | Sun04/11/13 at 1900, Until | | AM PDT | | | | | Discontinued | | | | | | + +-------+ +-------+---+---+ +-------+ +-------+---+---+ | Given | 04/13/20 | 81 mg | | | | | 13 8:19 | | | | | | AM PDT | | | | +-------+ +-------+---+---+ | Given | 04/12/20 | 81 mg | | | | | 13 8:28 | | | | | | AM PDT | | | | +-------+ +-------+---+---+ +---+---+ | | | +---+---+ + +-------+ +--------+---+---+ | cloNIDine (aka CATAPRES) tablet | Given | 04/14/20 | 0.1 mg | | | | 0.1 mg 0.1 mg, oral, TWICE | | 13 8:06 | | | | | DAILY, First dose on Sun04/11/13 | | AM PDT | | | | | at 1445, Until Discontinued | | | | | | + +-------+ +--------+---+---+ +-------+ +--------+---+---+ | Given | 04/13/20 | 0.1 mg | | | | | 13 8:27 | | | | | | PM PDT | | | | +-------+ +--------+---+---+ | Given | 04/13/20 | 0.1 mg | | | | | 13 8:19 | | | | | | AM PDT | | | | +-------+ +--------+---+---+ +---+---+ | | | +---+---+ + +-------+ +--------+---+---+ | docusate sodium (aka COLACE) | Given | 04/14/20 | 100 mg | | | | capsule 100 mg 100 mg, oral, | | 13 8:06 | | | | | TWICE DAILY, First dose on Sun | | AM PDT | | | | | 04/11/13 at 1445, Until | | | | | | | Discontinued | | | | | | + +-------+ +--------+---+---+ +-------+ +--------+---+---+ | Given | 04/13/20 | 100 mg | | | | | 13 8:27 | | | | | | PM PDT | | | | +-------+ +--------+---+---+ | Given | 04/13/20 | 100 mg | | | | | 13 8:20 | | | | | | AM PDT | | | | +-------+ +--------+---+---+ +---+---+ | | | +---+---+ + +-------+ +-------+---+---+ | enoxaparin (aka LOVENOX) | Given | 04/14/20 | 30 mg | | | | injection 30 mg 30 mg, | | 13 8:04 | | | | | subcutaneous, EVERY 12 HOURS, | | AM PDT | | | | | First dose (after last | | | | | | | modification) on 04/12/13 at | | | | | | | 2100, Until Discontinued | | | | | | + +-------+ +-------+---+---+ +-------+ +-------+---+---+ | Given | 04/13/20 | 30 mg | | | | | 13 8:27 | | | | | | PM PDT | | | | +-------+ +-------+---+---+ | Given | 04/13/20 | 30 mg | | | | | 13 8:18 | | | | | | AM PDT | | | | +-------+ +-------+---+---+ +---+---+ | | | +---+---+ + +-------+ +-------+---+---+ | famotidine (aka PEPCID) tablet | Given | 06/10/20 | 20 mg | | | | 20 mg 20 mg, oral, TWICE DAILY, | | 13 8:06 | | | | | First dose on Sun04/11/13 at 2100, | | AM PDT | | | | | Until Discontinued | | | | | | + +-------+ +-------+---+---+ +-------+ +-------+---+---+ | Given | 04/13/20 | 20 mg | | | | | 13 8:27 | | | | | | PM PDT | | | | +-------+ +-------+---+---+ | Given | 04/13/20 | 20 mg | | | | | 13 8:20 | | | | | | AM PDT | | | | +-------+ +-------+---+---+ +---+---+ | | | +---+---+ + +---------+ +--------+---+---+ | fentaNYL citrate (PF) (aka | New Bag | 04/11/20 | 50 mcg | | | | SUBLIMAZE) injection 50 mcg 50 | | 13 1:45 | | | | | mcg, intravenous, ONCE, 1 dose, | | PM PDT | | | | | Sun04/11/13 at 1430 | | | | | | + +---------+ +--------+---+---+ + +---+ | | | + +---+ | fentaNYL citrate (PF) (aka | | | SUBLIMAZE) injection 1 dose, | | | Starting Sun04/11/13 at 1350, | | | Until Sun04/11/13 at 1345 | | + +---+ | | | + +---+ + +-------+ +-------+---+---+ | FLUoxetine (aka PROZAC) capsule | Given | 04/14/20 | 20 mg | | | | 20 mg 20 mg, oral, TWICE DAILY, | | 13 8:06 | | | | | First dose on Sun04/11/13 at | | AM PDT | | | | | 1445, Until Discontinued | | | | | | + +-------+ +-------+---+---+ +-------+ +-------+---+---+ | Given | 04/13/20 | 20 mg | | | | | 13 8:27 | | | | | | PM PDT | | | | +-------+ +-------+---+---+ | Given | 04/13/20 | 20 mg | | | | | 13 8:20 | | | | | | AM PDT | | | | +-------+ +-------+---+---+ +---+---+ | | | +---+---+ + +---------+ +--------+---+---+ | HYDROmorphone (aka DILAUDID) | New Bag | 04/11/20 | 0.5 mg | | | | injection 0.2-0.5 mg 0.2-0.5 mg, | | 13 4:17 | | | | | intravenous, POSTPROCEDURE PRN, | | PM PDT | | | | | Starting Sun04/11/13 at 1139, | | | | | | | Until Sun04/11/13 at 1646, | | | | | | | moderate pain | | | | | | + +---------+ +--------+---+---+ +---------+ +--------+---+---+ | New Bag | 04/11/20 | 0.5 mg | | | | | 13 1:29 | | | | | | PM PDT | | | | +---------+ +--------+---+---+ | New Bag | 04/11/20 | 0.5 mg | | | | | 13 1:18 | | | | | | PM PDT | | | | +---------+ +--------+---+---+ + +---+ | | | + +---+ | HYDROmorphone (aka DILAUDID) | | | injection 1 dose, Starting Fri | | | 04/11/13 at 1317, Until 04/11/13 | | | at 1329 | | + +---+ | | | + +---+ + +-------+ + +---+---+ | insulin glargine (aka LANTUS) | Given | 04/12/20 | 30 Units | | | | injection 30 Units 30 Units, | | 13 9:06 | | | | | subcutaneous, AT BEDTIME, First | | PM PDT | | | | | dose (after last modification) on | | | | | | | 04/12/13 at 2200, Until | | | | | | | Discontinued | | | | | | + +-------+ + +---+---+ +---+---+ | | | +---+---+ + +-------+ + +---+---+ | insulin glargine (aka LANTUS) | Given | 04/13/20 | 35 Units | | | | injection 35 Units 35 Units, | | 13 10:05 | | | | | subcutaneous, AT BEDTIME, First | | PM PDT | | | | | dose (after last modification) on | | | | | | | 04/13/13 at 2200, Until | | | | | | | Discontinued | | | | | | + +-------+ + +---+---+ +---+---+ | | | +---+---+ + +-------+ + +---+---+ | insulin glargine (aka LANTUS) | Given | 04/11/20 | 50 Units | | | | injection 50 Units 50 Units, | | 13 10:08 | | | | | subcutaneous, AT BEDTIME, First | | PM PDT | | | | | dose on Sun04/11/13 at 2200, Until | | | | | | | Discontinued | | | | | | + +-------+ + +---+---+ +---+---+ | | | +---+---+ + +-------+ + +---+---+ | insulin lispro (aka HUMALOG) | Given | 04/13/20 | 10 Units | | | | injection 10 Units 10 Units, | | 13 8:20 | | | | | subcutaneous, THREE TIMES DAILY | | AM PDT | | | | | WITH MEALS, First dose on Sun | | | | | | | 04/12/13 at 1800, Until | | | | | | | Discontinued | | | | | | + +-------+ + +---+---+ +-------+ + +---+---+ | Given | 04/12/20 | 10 Units | | | | | 13 7:48 | | | | | | PM PDT | | | | +-------+ + +---+---+ +---+---+ | | | +---+---+ + +-------+ + +---+---+ | insulin lispro (aka HUMALOG) | Given | 04/14/20 | 12 Units | | | | injection 12 Units 12 Units, | | 13 8:16 | | | | | subcutaneous, THREE TIMES DAILY | | AM PDT | | | | | WITH MEALS, First dose (after | | | | | | | last modification) on 04/13/13 | | | | | | | at 1200, Until Discontinued | | | | | | + +-------+ + +---+---+ +-------+ + +---+---+ | Given | 04/13/20 | 12 Units | | | | | 13 6:11 | | | | | | PM PDT | | | | +-------+ + +---+---+ | Given | 04/13/20 | 6 Units | | | | | 13 12:41 | | | | | | PM PDT | | | | +-------+ + +---+---+ +---+---+ | | | +---+---+ + +-------+ +---------+---+---+ | insulin lispro (aka HUMALOG) | Given | 04/14/20 | 2 Units | | | | injection subcutaneous, WITH | | 13 8:16 | | | | | MEALS AND BEDTIME, First dose on | | AM PDT | | | | | 04/11/13 at 1700, Until | | | | | | | Discontinued | | | | | | + +-------+ +---------+---+---+ +-------+ +---------+---+---+ | Given | 04/13/20 | 2 Units | | | | | 13 6:11 | | | | | | PM PDT | | | | +-------+ +---------+---+---+ | Given | 04/13/20 | 2 Units | | | | | 13 8:20 | | | | | | AM PDT | | | | +-------+ +---------+---+---+ +---+---+ | | | +---+---+ + +---------+ +-------+-------+---+ | lactated ringers IV 100 mL/hr, | New Bag | 04/12/20 | 100 | 100 | | | intravenous, CONTINUOUS, | | 13 7:15 | mL/hr | mL/hr | | | Starting Sun04/11/13 at 1330, | | AM PDT | | | | | Until Sun04/14/13 at 1914 | | | | | | + +---------+ +-------+-------+---+ +---------+ +-------+-------+---+ | New Bag | 04/11/20 | 100 | 100 | | | | 13 10:08 | mL/hr | mL/hr | | | | PM PDT | | | | +---------+ +-------+-------+---+ | New Bag | 04/11/20 | 100 | 100 | | | | 13 1:34 | mL/hr | mL/hr | | | | PM PDT | | | | +---------+ +-------+-------+---+ +---+---+ | | | +---+---+ + +-------+ +---------+---+---+ | levothyroxine tablet 175 mcg | Given | 04/14/20 | 175 mcg | | | | 175 mcg, oral, DAILY, First dose | | 13 8:05 | | | | | on Sun04/11/13 at 1445, Until | | AM PDT | | | | | Discontinued | | | | | | + +-------+ +---------+---+---+ +-------+ +---------+---+---+ | Given | 04/13/20 | 175 mcg | | | | | 13 8:21 | | | | | | AM PDT | | | | +-------+ +---------+---+---+ | Given | 04/12/20 | 175 mcg | | | | | 13 8:30 | | | | | | AM PDT | | | | +-------+ +---------+---+---+ +---+---+ | | | +---+---+ + +-------+ + +---+---+ | metFORMIN SR (aka GLUCOPHAGE | Given | 04/14/20 | 2,000 mg | | | | XR) tablet 2,000 mg 2,000 mg, | | 13 8:05 | | | | | oral, DAILY, First dose on Sat | | AM PDT | | | | | 04/12/13 at 1800, Until | | | | | | | Discontinued | | | | | | + +-------+ + +---+---+ +-------+ + +---+---+ | Given | 04/13/20 | 2,000 mg | | | | | 13 8:21 | | | | | | AM PDT | | | | +-------+ + +---+---+ | Given | 04/12/20 | 2,000 mg | | | | | 13 6:31 | | | | | | PM PDT | | | | +-------+ + +---+---+ +---+---+ | | | +---+---+ + +-------+ +--------+---+---+ | metoprolol tartrate (aka | Given | 04/14/20 | 100 mg | | | | LOPRESSOR) tablet 100 mg 100 mg, | | 13 8:05 | | | | | oral, TWICE DAILY, First dose on | | AM PDT | | | | | 04/11/13 at 1445, Until | | | | | | | Discontinued | | | | | | + +-------+ +--------+---+---+ +-------+ +--------+---+---+ | Given | 04/13/20 | 100 mg | | | | | 13 8:27 | | | | | | PM PDT | | | | +-------+ +--------+---+---+ | Given | 04/13/20 | 100 mg | | | | | 13 8:18 | | | | | | AM PDT | | | | +-------+ +--------+---+---+ +---+---+ | | | +---+---+ + +-------+ +---------+---+---+ | multivitamin 1 Cap 1 capsule, | Given | 04/14/20 | 1 | | | | oral, DAILY, First dose on Sun | | 13 8:05 | capsule | | | | 04/11/13 at 1700, Until | | AM PDT | | | | | Discontinued | | | | | | + +-------+ +---------+---+---+ +-------+ +---------+---+---+ | Given | 04/13/20 | 1 | | | | | 13 8:21 | capsule | | | | | AM PDT | | | | +-------+ +---------+---+---+ | Given | 04/12/20 | 1 | | | | | 13 8:29 | capsule | | | | | AM PDT | | | | +-------+ +---------+---+---+ +---+---+ | | | +---+---+ + +-------+ +-------+---+---+ | oxyCODONE (immediate release) | Given | 04/12/20 | 10 mg | | | | (aka ROXICODONE) tablet 5-15 mg | | 13 9:06 | | | | | 5-15 mg, oral, EVERY 3 HOURS | | PM PDT | | | | | NEEDED, Starting Sun04/11/13 at | | | | | | | 1647, Until Sun04/14/13 at 1914, | | | | | | | severe pain | | | | | | + +-------+ +-------+---+---+ +-------+ +-------+---+---+ | Given | 04/12/20 | 10 mg | | | | | 13 8:29 | | | | | | AM PDT | | | | +-------+ +-------+---+---+ | Given | 04/11/20 | 10 mg | | | | | 13 8:35 | | | | | | PM PDT | | | | +-------+ +-------+---+---+ +---+---+ | | | +---+---+ + +-------+ +--------+---+---+ | ursodiol (aka ACTIGALL) capsule | Given | 04/14/20 | 300 mg | | | | 300 mg 300 mg, oral, TWICE | | 13 8:06 | | | | | DAILY, First dose on Sun04/11/13 | | AM PDT | | | | | at 2100, Until Discontinued | | | | | | + +-------+ +--------+---+---+ +-------+ +--------+---+---+ | Given | 04/13/20 | 300 mg | | | | | 13 8:27 | | | | | | PM PDT | | | | +-------+ +--------+---+---+ | Given | 04/13/20 | 300 mg | | | | | 13 8:19 | | | | | | AM PDT | | | | +-------+ +--------+---+---+ +---+---+ | | | +---+---+ documented in this encounter
--- OUTSIDE RECORDS SUMMARY | ~2020-04-13 | XMS | Encounter Summary ---
Demographics + + + | Address | [address] | | | [place] [address] | + + + | Home Phone | | + + + | Preferred Language | Unknown | + + + | Marital Status | | + + + | Adventism Affiliation | CHR | + + + | Race | White | + + + | Ethnic Group | Not or | + + + Author + + + | Author | [facility] | + + + | Organization | [facility] | + + + | Address | Unknown | + + + | Phone | Unavailable | + + + Support + + + + + | Name | Relationship | Address | Phone | + + + + + | Tico Burns | ECON | [address] | | | | | [place], [place] | | | | | [address] | | + + + + + Care Team Providers + +------+ + | Care Analytical Lab Analyst Name | Role | Phone | + [...] | +--------+ + + + + | 01/08/ | Anesthesia | 6A Intra Op 3181 | Dhaval Dugan, | | | 2013 | Event | [facility] | [address] | | | | | [facility] | [address] | | | | | Hospital Admitting | [place], [place] | | | | | Desk Located on the | [id number] | | | | | 9th floor | [phone] | | | | | [place], [place] | | | | | | [address] | Talon Rich MD | | | | | | [address] | | | | | | [facility] | | | | | | [place] [address] | | | | | | [phone] | | | | | | | | +--------+ + + + + Anesthesia Record + + + + + | Procedure Name | Responsible | Anesthesia Start | Anesthesia Stop Time | | | Anesthesiologist | Time | | + + + + + | ATTEMPTED | Dhaval Dugan MD | 01/08/13 1245 | 01/08/13 1823 | | LAPAROSCOPIC, OPEN | | | | | EXPLORATORY | | | | | LAPAROTOMY, LYSIS OF | | | | | ADHESIONS, SLEEVE | | | | | GASTRECTOMY (N/A | | | | | Abdomen) | | | | + + + + + +----+---+ + + | Da | T | Event | Comment | | te | i | | | | | m | | | | | e | | | +----+---+ + + | 03 | 1 | | | | /0 | 0 | | | | 6/ | 4 | | | | 20 | 7 | | | | 13 | | | | +----+---+ + + | | 1 | Pt. Check | Prior to anesthesia start, pt. Identified, examined, chart | | | 0 | | reviewed, PARQ held, anesthetic plan made or approved by | | | 4 | | attending anesthesiologist. NPO status confirmed as appropriate | | | 7 | | for procedure Preoperative evaluation: unchanged | +----+---+ + + | | 1 | Preprocedur | Pt ID confirmed, informed consent obtained, insertion site | | | 1 | e Checklist | marked, equipment available | | | 3 | | | | | 4 | | | +----+---+ + + | | 1 | Epidural | | | | 1 | Start | | | | 4 | | | | | 5 | | | +----+---+ + + | | 1 | Epidural | | | | 2 | Stop | | | | 2 | | | | | 0 | | | +----+---+ + + | | 1 | An Start | | | | 2 | | | | | 4 | | | | | 5 | | | +----+---+ + + | | 1 | Quick Note | In room with pt, awaiting arrival of Dr. Doran from urology for | | | 2 | | catheter placement. | | | 5 | | | | | 1 | | | +----+---+ + + | | 1 | Quick Note | Dr. Doran has arrived. | | | 3 | | | | | 1 | | | | | 4 | | | +----+---+ + + | | 1 | An Start | | | | 3 | Data | | | | 4 | | | | | 8 | | | +----+---+ + + | | 1 | Quick Note | Urinary catheter successfully placed. | | | 3 | | | | | 4 | | | | | 8 | | | +----+---+ + + | | 1 | Vitals | Monitors applied Vital signs checked Patient ready for anesthesia | | | 4 | Checked | | | | 0 | | | | | 5 | | | +----+---+ + + | | 1 | Std. Airway | | | | 4 | Mgt. | | | | 0 | | | | | 6 | | | +----+---+ + + | | 1 | Art Line | | | | 4 | | | | | 1 | | | | | 5 | | | +----+---+ + + | | 1 | Central | | | | 4 | venous line | | | | 4 | | | | | 3 | | | +----+---+ + + | | 1 | Ready | | | | 4 | | | | | 4 | | | | | 5 | | | +----+---+ + + | | 1 | Medication | Fentanyl 350mcg Hydromorphone 2mg Ketamine 200mg | | | 5 | Handoff | | | | 0 | | | | | 0 | | | +----+---+ + + | | 1 | Quick Note | Oxymetazoline spray x1 L nostril. 4% lido nick morales on 32fr | | | 5 | | nasal airway, placed easily, atraumatic | | | 1 | | | | | 1 | | | +----+---+ + + | | 1 | Abx | | | | 5 | Administere | | | | 1 | d | | | | 9 | | | +----+---+ + + | | 1 | Incision | | | | 5 | | | | | 3 | | | | | 3 | | | +----+---+ + + | | 1 | Quick Note | 100 cc saline plus methylene blue into OG | | | 6 | | | | | 5 | | | | | 5 | | | +----+---+ + + | | 1 | Surgery end | | | | 7 | | | | | 5 | | | | | 9 | | | +----+---+ + + | | 1 | An Extubate | Neuromuscular function Intact. Pharynx suctioned. Patient obeys | | | 8 | | commands. Adequate pulmonary mechanics. | | | 0 | | | | | 8 | | | +----+---+ + + | | 1 | Anesthesia | | | | 8 | End | | | | 2 | | | | | 3 | | | +----+---+ + + +------+ | Meds | +------+ + + + | Name | Total | + + + | lidocaine 1.5% EPINEPHrine 1:200K | 5 mL | + + + | rocuronium | 110 mg | + + + | ePHEDrine | 130 mg | + + + | PHENYLephrine | 500 mcg | + + + | fentaNYL | 300 mcg | + + + | propofol | 400 mg | + + + | succinylcholine | 200 mg | + + + | ceFOXitin | 2,000 mg | + + + | ketamine | 100 mg | + + + | ketamine INF (10mg/mL) | 89,466 mcg | + + + | vasopressin | 1 Units | + + + | insulin regular | 6 Units | + + + | insulin regular INF (1unit/mL) | 0.93 Units | + + + | bupivacaine 0.125% | 20 mL | + + + | ondansetron | 4 mg | + + + | neostigmine | 5 mg | + + + | glycopyrrolate | 1 mg | + + + | metoprolol | 5 mg | + + + | esmolol | 30 mg | + + + | LR | 1,300 mL | + + + | NS | 2,000 mL | + + + + + | Name | + + | Insp Timbo | + + | Et Timbo | + + | EtN2O % | + + | Insp N2O % | + + | O2 Flow Rate (Total Liters) | + + | Air Flow rate (L/min) | + + + + | No blood administrations on file. | + + +--------+ + + + | Type | Details | Placement | Removal | +--------+ + + + | RETIRE | 01/08/13; 1043; 01/11/13; 1052; | 01/08/13 1043 by | 01/11/13 1052 by | | D - | No; 22; Left; Forearm; None; No; | Tommy Whatley RN | Domi Hill RN | | Periph | Positive | | | | eral | | | | | Line | | | | +--------+ + + + | RETIRE | 01/11/13; 1052; T7-8; epidural | 01/08/13 1220 by | 01/11/13 1052 by | | D - | | | Domi Hill RN | | Periph | | | | | eral | | | | | Nerve | | | | | Block/ | | | | | Epidur | | | | | al | | | | | (doc. | | | | | amount | | | | | | | | | | delive | | | | | red at | | | | | 0600, | | | | | 1400, | | | | | 2200, | | | | | d/c) | | | | +--------+ + + + | RETIRE | 01/08/13; 1420; 01/08/13; 2353 | 01/08/13 1420 by Talon | 01/08/13 2353 by | | D - | (removed in pacu); 20g; right, | Zahra Rich MD | Briana Johns RN | | Arteri | radial | | | | al | | | | | Line | | | | +--------+ + + + | RETIRE | 01/08/13; 1430; 01/11/13; 0530; | 01/08/13 1430 by | 01/11/13 0530 by | | D - | No; Иван; (Catheter placed by | Liane Bazzi, | Arelis Saxena RN | | Freda | urology resident, see note for | RN | | | y Cath | size) | | | | | | | | | Placem | | | | | ent | | | | | (Kristy | | | | | & Cath | | | | | Care | | | | | Daily | | | | | and Q | | | | | BM) | | | | +--------+ + + + | RETIRE | 01/08/13; 1444; pulled by ; | 01/08/13 1444 by Talon | 01/11/13 1052 by | | D - | 01/11/13; 1052; Right; Neck; | Zahra Rich MD | Domi Hill RN | | Centra | Jugular | | | | l Line | | | | +--------+ + + + | RETIRE | 01/08/13; 1537; No; midline; | 01/08/13 1537 by | 08/23/17 1622 by | | D - | abdomen; 08/23/17 (Automatic | Liane Bazzi, | Discontinued After | | Incisi | cleanup per RA 3006--contact | RN | Discharge | | on | admin for questions.); 1622 | | | | | (Automatic cleanup per RA | | | | | 3006--contact admin for | | | | | questions.) | | | +--------+ + + + | RETIRE | 01/08/13; 1720; 01/11/13; 1000; | 01/08/13 1720 by | 01/11/13 1000 by | | D - | No; pulled by ; Garciafr; Delvin; | Liane Bazzi, | Domi Hill RN | | Drains | Right, Outer; Abdomen | RN | | | | | | | | (wound | | | | | s/surg | | | | | ical) | | | | +--------+ + + [...] filedocumented in this encounter Administered Medications + +--------+ +------+------+------+ | Medication Order | MAR | Action | Dose | Rate | Site | | | Action | Date | | | | + +--------+ +------+------+------+ | bupivacaine 0.125% PF injection | Given | 01/09/20 | 5 mL | | | | INTRAPROCEDURE PRN, Starting | | 13 6:01 | | | | | 01/08/13 at 1653, Until Wed | | PM PST | | | | | 01/08/13 at 2130 | | | | | | + +--------+ +------+------+------+ +-------+ +------+---+---+ | Given | 01/09/20 | 2 mL | | | | | 13 5:14 | | | | | | PM PST | | | | +-------+ +------+---+---+ | Given | 01/09/20 | 3 mL | | | | | 13 5:10 | | | | | | PM PST | | | | +-------+ +------+---+---+ +---+---+ | | | +---+---+ + +-------+ + +---+---+ | ceFOXitin (aka MEFOXIN) | Given | 01/09/20 | 2,000 mg | | | | injection intravenous, | | 13 3:19 | | | | | INTRAPROCEDURE PRN, Starting Wed | | PM PST | | | | | 01/08/13 at 1519, Until 01/08/13 | | | | | | | at 2130 | | | | | | + +-------+ + +---+---+ +---+---+ | | | +---+---+ + +-------+ +-------+---+---+ | ePHEDrine injection | Given | 01/09/20 | 10 mg | | | | intravenous, INTRAPROCEDURE PRN, | | 13 3:37 | | | | | Starting Sun01/08/13 at 1422, | | PM PST | | | | | Until Sun01/08/13 at 2130 | | | | | | + +-------+ +-------+---+---+ +-------+ +------+---+---+ | Given | 01/09/20 | 5 mg | | | | | 13 3:36 | | | | | | PM PST | | | | +-------+ +------+---+---+ | Given | 01/09/20 | 5 mg | | | | | 13 3:35 | | | | | | PM PST | | | | +-------+ +------+---+---+ +---+---+ | | | +---+---+ + +-------+ +-------+---+---+ | esmolol (aka BREVIBLOC) | Given | 01/09/20 | 30 mg | | | | injection intravenous, | | 13 5:59 | | | | | INTRAPROCEDURE PRN, Starting Wed | | PM PST | | | | | 01/08/13 at 1759, Until 01/08/13 | | | | | | | at 2130 | | | | | | + +-------+ +-------+---+---+ +---+---+ | | | +---+---+ + +-------+ +--------+---+---+ | fentaNYL citrate (PF) (aka | Given | 01/09/20 | 50 mcg | | | | SUBLIMAZE) injection | | 13 5:29 | | | | | INTRAPROCEDURE PRN, Starting Wed | | PM PST | | | | | 01/08/13 at 1406, Until 01/08/13 | | | | | | | at 2130, sedation | | | | | | + +-------+ +--------+---+---+ +-------+ +--------+---+---+ | Given | 01/09/20 | 50 mcg | | | | | 13 4:23 | | | | | | PM PST | | | | +-------+ +--------+---+---+ | Given | 01/09/20 | 50 mcg | | | | | 13 4:16 | | | | | | PM PST | | | | +-------+ +--------+---+---+ +---+---+ | | | +---+---+ + +-------+ +--------+---+---+ | glycopyrrolate (anoop ODONNELL) | Given | 01/09/20 | 0.4 mg | | | | injection INTRAPROCEDURE PRN, | | 13 5:31 | | | | | Starting Sun01/08/13 at 1716, | | PM PST | | | | | Until Sun01/08/13 at 2130 | | | | | | + +-------+ +--------+---+---+ +-------+ +--------+---+---+ | Given | 01/09/20 | 0.6 mg | | | | | 13 5:16 | | | | | | PM PST | | | | +-------+ +--------+---+---+ +---+---+ | | | +---+---+ + +-------+ +---------+---+---+ | insulin regular bolus from | Given | 01/09/20 | 6 Units | | | | continuous infusion | | 13 4:46 | | | | | INTRAPROCEDURE PRN, Starting Wed | | PM PST | | | | | 01/08/13 at 1646, Until 01/08/13 | | | | | | | at 2130 | | | | | | + +-------+ +---------+---+---+ +---+---+ | | | +---+---+ + +---------+ + +---------+---+ | insulin regular in NaCl 0.9% IV | New Bag | 01/09/20 | 4 | 4 mL/hr | | | infusion 250 units/250 mL (1 | | 13 4:49 | Units/hr | | | | unit/mL) INTRAPROCEDURE | | PM PST | | | | | CONTINUOUS PRN, Starting Wed | | | | | | | 01/08/13 at 1649, Until 01/08/13 | | | | | | | at 2130 | | | | | | + +---------+ + +---------+---+ +---+---+ | | | +---+---+ + +-------+ +--------+---+---+ | ketamine (aka KETALAR) | Given | 01/09/20 | 100 mg | | | | injection INTRAPROCEDURE PRN, | | 13 3:26 | | | | | Starting Sun01/08/13 at 1526, | | PM PST | | | | | Until Sun01/08/13 at 2130, | | | | | | | sedation | | | | | | + +-------+ +--------+---+---+ +---+---+ | | | +---+---+ + +---------+ + +-------+---+ | ketamine (aka KETALAR) IV | New Bag | 01/09/20 | 4 | 5.77 | | | infusion INTRAPROCEDURE | | 13 3:28 | mcg/kg/m | mL/hr | | | CONTINUOUS PRN, Starting Wed | | PM PST | in | | | | 01/08/13 at 1528, Until Sun01/08/13 | | | | | | | at 2130 | | | | | | + +---------+ + +-------+---+ +---+---+ | | | +---+---+ + + + +----+---+---+ | lactated ringers IV | given by | 01/09/20 | mL | | | | INTRAPROCEDURE CONTINUOUS PRN, | | 13 5:02 | | | | | Starting Sun01/08/13 at 1348, | anesthes | PM PST | | | | | Until Sun01/08/13 at 2130 | iology | | | | | + + + +----+---+---+ + + +----+---+---+ | given by anesthesiology | 01/09/20 | mL | | | | | 13 3:25 | | | | | | PM PST | | | | + + +----+---+---+ | New Bag | 01/09/20 | mL | | | | | 13 1:48 | | | | | | PM PST | | | | + + +----+---+---+ +---+---+ | | | +---+---+ + +-------+ +------+---+---+ | lidocaine-EPINEPHrine (aka | Given | 01/09/20 | 2 mL | | | | XYLOCAINE-MPF WITH EPINEPHRINE) | | 13 12:18 | | | | | 1.5 %-1:200,000 injection | | PM PST | | | | | INTRAPROCEDURE PRN, Starting Wed | | | | | | | 01/08/13 at 1215, Until 01/08/13 | | | | | | | at 2130 | | | | | | + +-------+ +------+---+---+ +-------+ +------+---+---+ | Given | 01/09/20 | 3 mL | | | | | 13 12:15 | | | | | | PM PST | | | | +-------+ +------+---+---+ +---+---+ | | | +---+---+ + +-------+ +------+---+---+ | metoprolol (aka LOPRESSOR) | Given | 01/09/20 | 3 mg | | | | injection intravenous, | | 13 5:56 | | | | | INTRAPROCEDURE PRN, Starting Wed | | PM PST | | | | | 01/08/13 at 1749, Until Sun01/08/13 | | | | | | | at 2131 | | | | | | + +-------+ +------+---+---+ +-------+ +------+---+---+ | Given | 01/09/20 | 2 mg | | | | | 13 5:49 | | | | | | PM PST | | | | +-------+ +------+---+---+ +---+---+ | | | +---+---+ + + + +----+---+---+ | NaCl 0.9 % IV INTRAPROCEDURE | given by | 01/09/20 | mL | | | | CONTINUOUS PRN, Starting Sun | | 13 6:19 | | | | | 01/08/13 at 1348, Until Sun01/08/13 | anesthes | PM PST | | | | | at 2130 | iology | | | | | + + + +----+---+---+ + + +----+---+---+ | given by anesthesiology | 01/09/20 | mL | | | | | 13 5:24 | | | | | | PM PST | | | | + + +----+---+---+ | given by anesthesiology | 01/09/20 | mL | | | | | 13 5:02 | | | | | | PM PST | | | | + + +----+---+---+ +---+---+ | | | +---+---+ + +-------+ +------+---+---+ | neostigmine (aka PROSTIGMIN) | Given | 01/09/20 | 2 mg | | | | injection intravenous, | | 13 5:31 | | | | | INTRAPROCEDURE PRN, Starting Sun | | PM PST | | | | | 01/08/13 at 1716, Until Sun01/08/13 | | | | | | | at 2130 | | | | | | + +-------+ +------+---+---+ +-------+ +------+---+---+ | Given | 01/09/20 | 3 mg | | | | | 13 5:16 | | | | | | PM PST | | | | +-------+ +------+---+---+ +---+---+ | | | +---+---+ + +-------+ +------+---+---+ | ondansetron (aka ZOFRAN) | Given | 01/09/20 | 4 mg | | | | injection INTRAPROCEDURE PRN, | | 13 5:00 | | | | | Starting Sun01/08/13 at 1700, | | PM PST | | | | | Until Sun01/08/13 at 2130 | | | | | | + +-------+ +------+---+---+ +---+---+ | | | +---+---+ + +-------+ +---------+---+---+ | phenylePHrine 100 mcg/mL | Given | 01/09/20 | 100 mcg | | | | injection (OR syringe) | | 13 3:18 | | | | | intravenous, INTRAPROCEDURE PRN, | | PM PST | | | | | Starting Sun01/08/13 at 1422, | | | | | | | Until Sun01/08/13 at 2130 | | | | | | + +-------+ +---------+---+---+ +-------+ +---------+---+---+ | Given | 01/09/20 | 100 mcg | | | | | 13 3:14 | | | | | | PM PST | | | | +-------+ +---------+---+---+ | Given | 01/09/20 | 200 mcg | | | | | 13 2:45 | | | | | | PM PST | | | | +-------+ +---------+---+---+ +---+---+ | | | +---+---+ + +-------+ +--------+---+---+ | propofol INTRAPROCEDURE PRN, | Given | 01/09/20 | 400 mg | | | | Starting Sun01/08/13 at 1406, | | 13 2:06 | | | | | Until Sun01/08/13 at 2130 | | PM PST | | | | + +-------+ +--------+---+---+ +---+---+ | | | +---+---+ + +-------+ +-------+---+---+ | rocuronium (aka ZEMURON) | Given | 01/09/20 | 30 mg | | | | injection INTRAPROCEDURE PRN, | | 13 3:54 | | | | | Starting Sun01/08/13 at 1415, | | PM PST | | | | | Until Sun01/08/13 at 2130, | | | | | | | Neuromuscular block | | | | | | + +-------+ +-------+---+---+ +-------+ +-------+---+---+ | Given | 01/09/20 | 40 mg | | | | | 13 3:01 | | | | | | PM PST | | | | +-------+ +-------+---+---+ | Given | 01/09/20 | 40 mg | | | | | 13 2:15 | | | | | | PM PST | | | | +-------+ +-------+---+---+ +---+---+ | | | +---+---+ + +-------+ +--------+---+---+ | SUCCINYLCHOLINE CHLORIDE 20 | Given | 01/09/20 | 200 mg | | | | MG/ML INJ (PROSED/RSI) | | 13 2:06 | | | | | INTRAPROCEDURE PRN, Starting Wed | | PM PST | | | | | 01/08/13 at 1406, Until Sun01/08/13 | | | | | | | at 2130, Neuromuscular block | | | | | | + +-------+ +--------+---+---+ +---+---+ | | | +---+---+ + +-------+ +---------+---+---+ | vasopressin (aka PITRESSIN) | Given | 01/09/20 | 1 Units | | | | injection INTRAPROCEDURE PRN, | | 13 3:42 | | | | | Starting Sun01/08/13 at 1542, | | PM PST | | | | | Until Sun01/08/13 at 2130 | | | | | | + +-------+ +---------+---+---+ +---+---+ | | | +---+---+ documented in this encounter"
--- OUTSIDE RECORDS SUMMARY | ~2020-04-13 | XMS | Encounter Summary ---
Demographics + + + | Address | [address] | | | [place] [address] | + + + | Home Phone | | + + + | Preferred Language | Unknown | + + + | Marital Status | | + + + | Buddhism Affiliation | CHR | + + + | Race | White | + + + | Ethnic Group | Not or | + + + Author + + + | Author | [facility] | + + + | Organization | [facility] | + + + | Address | Unknown | + + + | Phone | Unavailable | + + + Support + + + + + | Name | Relationship | Address | Phone | + + + + + | Tico Burns | ECON | [address] | | | | | [place], [place] | | | | | [address] | | + + + + + Care Team Providers + +------+ + | Care Air Control/Anti Air Warfare Officer Name | Role | Phone | + +------+ + | Moe Bella MD | PCP | | + +------+ + Reason for Visit + + + | Reason | Comments | + + + | Pre-operative | PANNICULECTOMY (GEN) on 04/11/2013 by Jesus Perez MD at [facility] | | evaluation | 6A | + + + Encounter Details +--------+---------+ + + + | Date | Type | Department | Care Team | Description | +--------+---------+ + + + | 04/10/ | Office | Preoperative | Sheryl Guerra | Preop examination | | 2012 | Visit | Medicine Clinic at | R, TABLE MAKER [address] | (Primary Dx); Morbid | | | | [facility] 4th Floor [address] | obesity (HCC); DM | | | | [address] | [place], [place] | (diabetes mellitus) | | | | Mailcode: [facility] | [address] | ([facility]); Hypertension; | | | | [facility] | [phone] | Hyperlipidemia; | | | | and Healing, | | Localized adiposity; | | | | Building 1,4th Floor | | Lipoma of | | | | [place], [place] | | unspecified site; | | | | [address] | | S/P partial | | | | [phone] | | gastrectomy; Sleep | | | | | | apnea; Thyroid | | | | | | cancer (HCC) | +--------+---------+ + + + Anesthesia Record + + + + + | Procedure Name | Responsible | Anesthesia Start | Anesthesia Stop Time | | | Anesthesiologist | Time | | + + + + + | REMOVAL OF FATTY | Eliud Pelaez MD | 04/11/13 0924 | 04/11/13 1255 | | TUMOR PANNUS | | | | | specimen x 1 (N/A | | | | | Abdomen) | | | | + + + + + +----+---+ + + | Da | T | Event | Comment | | te | i | | | | | m | | | | | e | | | +----+---+ + + | 06 | 0 | Eq Check | Anesthesia machine checked Equipment verified | | /0 | 8 | | | | 7/ | 5 | | | | 20 | 6 | | | | 13 | | | | +----+---+ + + | | 0 | Pt. Check | Prior to anesthesia start, pt. Identified, examined, chart | | | 9 | | reviewed, PARQ held, anesthetic plan made or approved by | | | 1 | | attending anesthesiologist. NPO status confirmed as appropriate | | | 5 | | for procedure Preoperative evaluation: unchanged | +----+---+ + + | | 0 | An Start | | | | 9 | | | | | 2 | | | | | 4 | | | +----+---+ + + | | 0 | An Start | | | | 9 | Data | | | | 3 | | | | | 5 | | | +----+---+ + + | | 0 | Vitals | Monitors applied Vital signs checked Patient ready for anesthesia | | | 9 | Checked | | | | 3 | | | | | 5 | | | +----+---+ + + | | 0 | Std. Airway | | | | 9 | Mgt. | | | | 3 | | | | | 8 | | | +----+---+ + + | | 1 | Ready | | | | 0 | | | | | 0 | | | | | 7 | | | +----+---+ + + | | 1 | Abx | | | | 0 | Administere | | | | 2 | d | | | | 0 | | | +----+---+ + + | | 1 | Incision | | | | 0 | | | | | 2 | | | | | 3 | | | +----+---+ + + | | 1 | Surgery end | | | | 2 | | | | | 3 | | | | | 0 | | | +----+---+ + + | | 1 | An Extubate | Neuromuscular function Intact. Pharynx suctioned. Patient obeys | | | 2 | | commands. Adequate pulmonary mechanics. | | | 4 | | | | | 0 | | | +----+---+ + + | | 1 | an stop | | | | 2 | data | | | | 4 | | | | | 4 | | | +----+---+ + + | | 1 | Anesthesia | | | | 2 | End | | | | 5 | | | | | 5 | | | +----+---+ + + +------+ | Meds | +------+ + + + No medications | on file. | + + + + + | No agents on file. | + + + + | No [...] +--------+ + + + | RETIRE | 04/11/13; 912; 04/13/13; 1858; | 04/11/13912 by | 04/13/131858 by | | D - | No; 20; Left; Antecubital; | Tommy Whatley, RN | Jerald Yeung RN | | Periph | Lidocaine; No; Positive | | | | eral | | | | | Line | | | | +--------+ + + + | RETIRE | 04/11/13; 0950; 04/13/13; 1542; | 04/11/13 0950 by | 04/13/13 1542 by | | D - | No; 16 fr. 5cc LATEX chau to | Catherine Greenfield, KARENA | Jerald Yeung RN | | Urinar | drain bag inserted by Dr. Colin | | | | y Cath | Nasra | | | | | | | [...] +--------+ + + + | RETIRE | 04/11/13; 1003; 04/14/13; 1205; | 04/11/13 1003 by | 04/14/13 1205 by | | D - | 16; Left; Forearm; Yes (US used | Dhaval Dunbar MD | Yolis Saba RN | | Periph | for placement as veins not | | | | eral | visible) | | | | Line | | | | +--------+ + + + | RETIRE | 04/11/13; 1004; 08/23/17 | 04/11/13 1004 by | 08/23/17 1622 by | | D - | (Automatic cleanup per RA | Dhaval Dunbar MD | Discontinued After | | Arteri | 3006--contact admin for | | Discharge | | al | questions.); 1622 (Automatic | | | | Line | cleanup per RA 3006--contact | | | | | admin for questions.); 20g; left, | | | | | radial | | | +--------+ + + + | RETIRE | 04/11/13; 1023; horizontal | 04/11/13 1023 by | 08/23/17 1622 by | | D - | incision across lower pannus; | Catherine Greenfield RN | Discontinued After | | Incisi | 08/23/17 (Automatic cleanup per | | Discharge | | on | RA 3006--contact admin for | | | | | questions.); 1622 (Automatic | | | | | cleanup per RA 3006--contact | | | | | admin for questions.) | | | +--------+ + + [...] + + + | Blood Pressure | 148/52 | 04/10/2013 2:49 PM | | | | | PDT | | + + + + + | Pulse | 62 | 04/10/2013 2:49 PM | | | | | PDT | | + + + + + | Temperature | 36.7 C (98.1 F) | 04/10/2013 2:49 PM | | | | | PDT | | + + + + + | Respiratory Rate | 14 | 04/10/2013 2:49 PM | | | | | PDT | | + + + + + | Oxygen Saturation | 98% | 04/10/2013 2:49 PM | | | | | PDT | | + + + + + | Inhaled Oxygen | - | - | | | Concentration | | | | + + + + + | Weight | 218.6 kg (482 lb) | 04/10/2013 2:49 PM | | | | | PDT | | + + + + + | Height | 175.3 cm (5' 9") | 04/10/2013 2:49 PM | neck 41.5 cm | | | | PDT | | + + + + + | Body Mass Index | 71.18 | 04/10/2013 2:49 PM | | | | | PDT | | + + + + + documented in this encounter Patient Instructions Patient Instructions Sheryl Guerra NP - 04/10/2013 3:13 PM PDT PREOPERATIVE INSTRUCTIONS Empty stomach before surgery On the day BEFORE your surgery, drink plenty of fluids and stay well hydrated NOTHING to eat or drink after midnight the night before surgery, or 8 hours prior to jimenez rgery. This includes water, coffee, candy, mints, gum. Medications Instructions Take 80% of your lantus dose night before surgery!!! TAKE the following medications with a sip of water on the morning of surgery: cloNIDine 0.1 mg Oral Tablet, Take 0.1 mg by mouth two times daily. famotidine 20 mg Oral tablet, Take 1 Tab by mouth two times daily. Indications: Prevention of Stress Ulcer FLUoxetine (PROZAC) 20 mg Oral Capsule, Take 20 mg by mouth two times daily. levothyroxine (SYNTHROID) 175 mcg Oral Tablet, Take 175 mcg by mouth once daily. metoprolol tartrate 100 mg Oral Tablet, Take 100 mg by mouth two times daily. Do NOT take the following medications on the morning of surgery: Short acting insulin LOSARTAN/HYDROCHLOROTHIAZIDE (HYZAAR ORAL), Take by mouth. metFORMIN SR (GLUCOPHAGE XR) 500 mg Oral Tablet Extended Release 24 hr, Take 500 mg by mout h once daily. Administer with evening meal. ursodiol 300 mg Oral capsule, Take 1 Cap by mouth two times daily. Start Actigall 2 weeks a fter surgery. Indications: Cholelithiasis Prevention Other medications not specifically mentioned are at your discretion as to taking or not taking on the morning of surgery. Unless otherwise directed by your surgeon, do not take any Aspirin, vitamin E or non-erica roidal anti-inflammatory (NSAIDs i.e. Advil, Aleve, Ibuprofen) or herbal supplements 7-14 da ys prior to your surgery. These drugs may interfere with normal blood clotting and may cause excessive bleeding and bruising during or after the surgery. If you are taking Coumadin (warfarin), Plavix or any other blood thinners please let you r surgical team know as medication changes may be necessary. If you need a pain medication for general purposes, use Tylenol as directed. OK to take it even on the morning of surgery, if needed. If you are in doubt about any medications that you are taking, please contact our office . Skin preparation to help avoid surgical site infections PETER GUIDE TO GENERAL SKIN CLEANSING AT HOME BEFORE SURGERY Before you bathe or shower: Read the instructions given to you by your healthcare practitioner, and begin your genera l skin cleansing protocol as directed. Carefully read all directions on the product label. Hibiclens is not to be used on the head or face, keep out of the eyes, ears and mouth. Hibiclens is not to be used in the genital area. Hibiclens should not be used if you are allergic to chlorhexidine gluconate or any other ingredients in this preparation. *See Hibiclens label for full product information and precautions. When you bathe or shower the night before your surgery: If you plan to wash your hair, do so with your regular shampoo. Then rinse hair and body thoroughly to remove any shampoo residue. Wash your face with your regular soap or water only. Thoroughly rinse your body with warm water from neck down. Use Hibiclens as you would any other liquid soap. Please do not put the Hibiclens on a wa sh cloth, apply directly to the skin and wash gently. Apply the minimum amount of Hibiclens necessary to cover the skin. Leave the Hibiclens on your skin for 1 minute, then rinse off. Rinse thoroughly with warm water. Do not use your regular soap after applying and rinsing Hibiclens. When using Hibiclens for a second day in a row (morning of surgery, as soon as you wake up) : Shower/bathe again using Hibiclens in the same method as described above. Do not apply any lotions, deodorants, powders or perfumes to the body areas that have been cleaned with Hibiclens. Other Important Guidelines Do not shave the surgical area Do not smoke, drink alcohol or use recreational drugs for 24 hours before your surgery Watch for any change in your health condition. Let your surgeon know right away if you do not feel well. Do not wear makeup, perfume, lotions, deodorant, powder or hairspray. Do not wear any jewelry to the hospital. Wear loose, comfortable clothing. Leave all your valuables at home. Allow enough travel time so you re not late for your check in for surgery. Take a bath or shower and remember to shampoo your hair using your usual hair product bef ore your arrival at the hospital. Please remember to brush your teeth the night before and the morning of your procedure. Preventing post op complications while you are in the hospital Use an incentive spirometer or peep breathe to keep your lungs working properly an d to help prevent respiratory complications. It helps you take long, deep breaths. Use it at least once every hour while you are awake. Leg and feet exercises will maintain good circulation and help prevent blood clots in yo ur legs. Sometimes your doctor will order air compression stockings. Compressed air helps the circulation in your legs. Walking and moving will help stimulate normal circulation and deep breathing. After you r surgery, your nurse may ask you to sit, stand or walk. Surgery Check in Locations Admitting [facility] Surgery Check in Time: The Preoperative Medicine Clinic is not in the position to give you accurate information regarding surgical check in time. We refer you back to your surgical office regarding this important information. Going Home Your surgical team will decide when you are medically ready to go home. If you stayed in the hospital after surgery, please arrange for your ride to come for yo u around 9AM on the day your doctor says you can go home. Check out time is 11AM. If you have questions or concerns after you go home, call your doctor s office. If it is after office hours, call the [facility] [place] operator at [phone] and ask them to page him or h er. Preparing For Your Surgery Video -- 7 minutes of instructions! Access the [facility] website [email or web address] --> POPULAR RESOURCES --> Patient Guide --> Preparing for your Visit or Surgery --> "Preparing for Your Surgery" video link documented in this encounter Progress Notes Trung Schrader MA - 04/10/2013 3:28 PM PDT Venipuncture performed in clinic, blood sample obtained from Left antecubital site Hemoglob in A1C POCT performed during clinic visit. Blood sample obtained from venipuncture performed to obtain other lab tests. Sheryl Saha NP - 04/10/2013 2:16 PM PDT PREOPERATIVE CONSULT NOTE Consulting Provider: SHERYL GUERRA NP Referring Physician: Jesus Perez MD Primary Care Provider: Moe Bella MD Reason for Consult: Preoperative evaluation and risk assessment Proposed Procedure/Date: PANNICULECTOMY (GEN) on 04/11/2013 HISTORY OF PRESENT ILLNESS: Gerard Burns is a 48 y.o. male here for preoperative ev aluation for above procedure. Pt has dx of Pannus, abdominal, Fatty tumor, and S/P partial gastrectomy. Pt underwent RYG B on 01/08/2013 without difficulty. Continues to have large fatty tumor right/midline lower ab domen that interferes with ambulation. Evaluated by Dr. Perez - korina for Panniculectomy an d removal of fatty tumor on pannus. Other significant medical hx includes morbid obesity, type II DM on insulin, KARELY on CPAP, H TN, GERD, thyroid cancer s/p thyroidectomy (hypothyroidism), and depression. Of note, pt re ports losing about 100# total, about 50# since the surgery. He has no hx nor symptoms of CAD, CHF, CVA, or CKD. Functional capacity is Low ROS: Pulmonary: Within Defined Limits except as noted below Dx of sleep apnea Cardiovascular: About 2-3 METS; Denies any chest pain or pressure, SOB, orthopnea, pnd, peripheral edema, syncope +GARZA -- greatly improved since surgery Echo (10/04/2012, in media tab): Normal LV function No significant valvular abnormalities Within Defined Limits except as noted below Functional Capacity: Low no CAD GI/Hepatic: No reflux x 2 years Within Defined Limits except as noted below : Within Defined Limits except as noted below Endo: Hb A1c - 8.3 today Morning BS - about 120; highest about 400 in last month (had forgotten his lunchtime insuli n dose) BMI - 71 Within Defined Limits except as noted below Other endo: MEN:Parathyroid: Pituitary : Thyroid:+ hypothyroid Neurological: Numbness both feet from DM Within Defined limits except as noted below Treatm ents: Treated w/medications psychiatric problem depression no pain Current pain level: 0 MS: Low back pain Within Defined Limits except as noted below Heme/Onc: Within Defined Limits except as noted below Malignancy: cancer, Location: Metasta sis: Skin: Comments: Open areas x 2 to lower pannus Within Defined Limits except as noted below Current Medication List Name Sig ASPIRIN 81 MG TABLET Take 81 mg by mouth once daily. CALCIUM CITRATE-VITAMIN D3 200 MG CALCIUM-250 UNIT TABLET Take 2 Tabs by mouth two times da yas. Start 2 weeks after surgery. Indications: Hypocalcemia Prevention CLONIDINE 0.1 MG TABLET Take 0.1 mg by mouth two times daily. CYANOCOBALAMIN (VITAMIN B-12) 1,000 MCG/ML INJECTION Inject 1,000 mcg into the muscle (IM) every thirty days. Indications: Prevention of Vitamin B12 Deficiency DOCUSATE SODIUM 100 MG CAPSULE Take 1 Cap by mouth two times daily. FAMOTIDINE 20 MG TABLET Take 1 Tab by mouth two times daily. Indications: Prevention of Str ess Ulcer FLUOXETINE 20 MG CAPSULE Take 20 mg by mouth two times daily. INSULIN GLARGINE 100 UNIT/ML SUB-Q Inject 50 Units under the skin (SUBC) once daily at bedt kevan. Indications: TYPE 2 DIABETES MELLITUS INSULIN LISPRO 100 UNIT/ML SUB-Q Use 2 units for 141-200, 4 units for 201-250, 6 units for 251-300, nj your doctor if > Indications: TYPE 2 DIABETES MELLITUS LEVOTHYROXINE 175 MCG TABLET Take 175 mcg by mouth once daily. HYZAAR ORAL Take by mouth. MAGNESIUM OXIDE 400 MG TABLET Take 1 Tab by mouth two times daily. METFORMIN ER 500 MG TABLET,EXTENDED RELEASE 24 HR Take 500 mg by mouth once daily. Administ er with evening meal. METOPROLOL TARTRATE 100 MG TABLET Take 100 mg by mouth two times daily. PEDIATRIC MULTIVITAMIN CHEWABLE TABLET Take 1 Tab by mouth two times daily. URSODIOL 300 MG CAPSULE Take 1 Cap by mouth two times daily. Start Actigall 2 weeks after s urgery. Indications: Cholelithiasis Prevention VITAMIN A & ERGOCALCIFEROL(D2) ORAL Take by mouth. Allergies Allergen Reactions Codeine Rash Rash all over arms Past Medical History Diagnosis Date BP (high blood pressure) Numbness 2006 hands and feet High cholesterol Leg sore Depressed 2010 Diabetes mellitus 2006 Thyroid disease 2010 Cancer 2010 Past Surgical History Procedure Date Thyroid removal Gastric bypass attempted Family History Problem Relation Arthritis Father History Substance Use Topics Smoking status: Never Smoker Smokeless tobacco: Not on file Alcohol Use: 0.0 oz/week 0 drink(s) per week very rare PHYSICAL EXAM: Last Vitals: BP 148/52 | Pulse 62 | Temp (Src) 36.7 C (98.1 F) (Oral) | RR 14 | Ht 1.75 3 m (5' 9") | Wt 218.634 kg (482 lb) | SpO2 98% | BMI 71.15 kg/(m^2) Body mass index is 71.1 5 kg/(m^2). General: Patients general appearance: Alert, No distress and Cooperative Head & Neck/Airway: Neck ROM: full Neck Circumference: 41.5 cm. TM Distance:> 6cm Dentition: dental implants, bridges or caps present Dentition Comments: # 6-11 capped [place]: No Mallampati: II Mouth Opening: > = 3 cm C-Spine: normal Neck Anatomy: Thick, obese Jaw Protrusion: Normal, lower incisors can protrude past upper incisors Lung Exam: breath sounds normal Cardiac: Rhythm: regular Rate: normal Abdominal: General Findings: Deferred Musculoskeletal: Findings: tone normal Neuro/Psych: alert Findings: Normal affect, Alert, oriented to person, place, time and No t remor Integument: Color: pink Texture: Skin texture - normal Turgor: turgor normal Implants: None, Comments: Denies any issues with anesthesia complications LAB DATA REVIEWED/ORDERED BMP, CBC and T&S pending Lab Results Component Value Date WBC 6.6 01/11/2013 HB 10.6 01/11/2013 HCT 32.0 01/11/2013 PLT 241 01/11/2013 MCV 83.5 01/11/2013 RDW 16.0 01/11/2013 Lab Results Component Value Date NA 141 01/11/2013 K 3.5 01/11/2013 CL 102 01/11/2013 BICARB 27 01/11/2013 BUN 7 01/11/2013 CR 0.71 01/11/2013 GLU 158 01/11/2013 CA 8.6 01/11/2013 Lab Results Component Value Date A1C 8.3 04/10/2013 EKG: Personally reviewed, Lab Results Component Value Date RATE 69 12/26/2012 ATRIALRATE 69 12/26/2012 CO 186 12/26/2012 QRS 88 12/26/2012 QT 398 12/26/2012 QTC 426 12/26/2012 PAXIS 35 12/26/2012 RAXIS -54 12/26/2012 TAXIS 26 12/26/2012 EKGDX Value: Normal sinus rhythm Left anterior fascicular block Abnormal ECG "I have pers onally interpreted this report, either alone or with a trainee." Confirmed by VASYL TAN ([id number]) on 12/26/2012 10:49:35 PM 12/26/2012 MEDICAL DECISION MAKIN ACC/ AHA Perioperative Guidelines 1. Need for emergency noncardiac surgery? b. No -> Proceed to next step. 2. Active Cardiac Conditions? These conditions mandate further investigation and manageme nt. A. Acute UT within 7 days: no B. Unstable angina/Recent UT (7- 30 days): no C. Decompensated CHF: no D. Significant arrhythmia: None E. Severe valvular disease: NONE 3. Low risk surgery? b. No -> proceed with next step. 4. Good functional capacity? MET ASSESSMENT: 3. METS--walking slowly on a flat surface f or 1-2 blocks; vacuuming, sweeping the floors, carrying groceries. 5. Assess Clinical Risk Factors? A. Ischemic heart disease: no B. Compensated / prior heart failure: no C. Diabetes mellitus (treated with insulin): yes D. Renal insufficiency (Cr > 2): no E. Cerebrovascular disease: no Rate of cardiac , non fatal UT, non fatal cardiac arrest (RCRI) 0 risk factors - 0.4% 1 risk factors - 1%, 2 risk factors - 7%, 3 or >risk factors - 11% (may benefit from perioperative beta blockers) Risk Factor Recommendations: 1-2 risk factors- proceed with planned surgery with HR control or consider noninvasive testing if it will international exchange coordinator Surgery Risk: Intermediate Patient-related risk: Estimated ASA class -- 3 ASSESSMENT and RECOMMENDATIONS: Surgical/anesthesia risk assessment: Gerard Burns is a 48 y.o. male with diagnos is of Pannus, abdominal, Fatty tumor, and S/P partial gastrectomy, scheduled for Panniculect jose and removal of fatty tumor on pannus. According to ACC/AHA, this patient has one clinic al risk factors and the recommendation is to proceed with planned surgery without additional cardiac testing. Medication management recommendations: The patient was advised to continue all usual med ications except as noted in Patient Instructions (After Visit Summary given to pt) Perioperative antibiotic prophylaxis: Standard (Consider IV Vanco one hr before procedu re in pts with Cephalosporin/PCN allergy and/or with hx of MRSA) Type II DM - stable, poorly controlled. Hb A1c today - 8.3. Instructions given regarding lantus and lispro use via AVS. Hold metformin morning of surgery. Cover with S/S insulin wh ile inpatient. Consider consulting glycemic team as needed. KARELY - stable, compliant with CPAP. Advised to bring morning of surgery HTN - stable, moderately controlled on 4 agents. Hold losartan-HCTZ; continue clonidine and metoprolol morning of surgery GERD - stable, cont famotidine thyroid cancer s/p thyroidectomy (hypothyroidism) - stable, cont levothyroxine periopera tively Depression - stable, continue prozac morning of surgery This patient is medically stable for surgery. Further testing/optimization is not needed. Thank you for the opportunity to contribute to this patient's care. SHERYL GUERRA NP [facility] PREOPERATIVE MEDICINE CLINIC [address] [place] [address] [place] [id number] documented in this encounter Plan of Treatment Not on filedocumented as of this encounter Procedures + +--------+ + + + | Procedure Name | Priori | Date/Time | Associated Diagnosis | Comments | | | ty | | | | + +--------+ + + + | CO COLLECTION VENOUS | Routin | 04/10/2013 | Preop examination | | | BLOOD,VENIPUNCTURE | e | 3:28 PM | | | | | | PDT | | | + +--------+ + + + | CBC ONLY | Routin | 04/10/2013 | Preop examination | Results for this | | | e | 2:20 PM | Morbid obesity | procedure are in the | | | | PDT | ([facility]) DM (diabetes | results section. | | | | | mellitus) ([facility]) | | | | | | Hypertension | | | | | | Hyperlipidemia | | | | | | Localized adiposity | | | | | | Lipoma of | | | | | | unspecified site | | | | | | S/P partial | | | | | | gastrectomy | | + +--------+ + + + | BASIC METABOLIC SET | Routin | 04/10/2013 | Preop examination | Results for this | | (NA, K, CL, TCO2, | e | 2:20 PM | Morbid obesity | procedure are in the | | BUN, CR, GLU, CA) | | PDT | ([facility]) DM (diabetes | results section. | | | | | mellitus) ([facility]) | | | | | | Hypertension | | | | | | Hyperlipidemia | | | | | | Localized adiposity | | | | | | Lipoma of | | | | | | unspecified site | | | | | | S/P partial | | | | | | gastrectomy | | + +--------+ + + + | CBC ONLY | Routin | 04/10/2013 | Preop examination | Results for this | | | e | 2:20 PM | Morbid obesity | procedure are in the | | | | PDT | ([facility]) DM (diabetes | results section. | | | | | mellitus) ([facility]) | | | | | | Hypertension | | | | | | Hyperlipidemia | | | | | | Localized adiposity | | | | | | Lipoma of | | | | | | unspecified site | | | | | | S/P partial | | | | | | gastrectomy | | + +--------+ + + + | ANTIBODY SCREEN | Routin | 04/10/2013 | Preop examination | Results for this | | | e | 2:20 PM | Morbid obesity | procedure are in the | | | | PDT | ([facility]) DM (diabetes | results section. | | | | | mellitus) ([facility]) | | | | | | Hypertension | | | | | | Hyperlipidemia | | | | | | Localized adiposity | | | | | | Lipoma of | | | | | | unspecified site | | | | | | S/P partial | | | | | | gastrectomy | | + +--------+ + + + | TYPE AND SCREEN | Routin | 04/10/2013 | Preop examination | Results for this | | | e | 2:20 PM | Morbid obesity | procedure are in the | | | | PDT | ([facility]) DM (diabetes | results section. | | | | | mellitus) ([facility]) | | | | | | Hypertension | | | | | | Hyperlipidemia | | | | | | Localized adiposity | | | | | | Lipoma of | | | | | | unspecified site | | | | | | S/P partial | | | | | | gastrectomy | | + +--------+ + + + | ABO & RH TYPE | Routin | 04/10/2013 | Preop examination | Results for this | | | e | 2:20 PM | Morbid obesity | procedure are in the | | | | PDT | ([facility]) DM (diabetes | results section. | | | | | mellitus) ([facility]) | | | | | | Hypertension | | | | | | Hyperlipidemia | | | | | | Localized adiposity | | | | | | Lipoma of | | | | | | unspecified site | | | | | | S/P partial | | | | | | gastrectomy | | + +--------+ + + + | HEMOGLOBIN A1C, POC | Routin | 04/10/2013 | Preop examination | Results for this | | | e | 2:10 PM | Morbid obesity | procedure are in the | | | | PDT | (HCC) DM (diabetes | results section. | | | | | mellitus) ([facility]) | | | | | | Hypertension | | | | | | Hyperlipidemia | | | | | | Localized adiposity | | | | | | Lipoma of | | | | | | unspecified site | | | | | | S/P partial | | | | | | gastrectomy | | + +--------+ + + + documented in this encounter Results CBC (04/10/2013 2:20 PM PDT) + + + + + + | Component | Value | Ref Range | Performed | Pathologist | | | | | At | Signature | + + + + + + | WBC COUNT | 9.5 | 4.4 - 11.0 K/cu | [facility] | | | | | mm | LABORATORY | | | | | | SERVICES, | | | | | | CORE | | + + + + + + | RED CELL | 5.25 | 4.50 - 5.90 | [facility] | | | COUNT | | M/cu mm | LABORATORY | | | | | | SERVICES, | | | | | | CORE | | + + + + + + | HEMOGLOBIN | 14.3 | 13.5 - 17.5 | [facility] | | | | | g/dL | LABORATORY | | | | | | SERVICES, | | | | | | CORE | | + + + + + + | HEMATOCRIT | 44.7 | 41.0 - 53.0 % | [facility] | | | | | | LABORATORY | | | | | | SERVICES, | | | | | | CORE | | + + + + + + | MCV | 85.1 | 80.0 - 96.0 fL | [facility] | | | | | | LABORATORY | | | | | | SERVICES, | | | | | | CORE | | + + + + + + | MCHC | 32.1 (L) | 33.4 - 35.5 | [facility] | | | | | g/dL | LABORATORY | | | | | | SERVICES, | | | | | | CORE | | + + + + + + | RDW | 16.0 (H) | 11.5 - 15.0 % | [facility] | | | | | | LABORATORY | | | | | | SERVICES, | | | | | | CORE | | + + + + + + | PLATELET | 321 | 150 - 400 K/cu | [facility] [...] + + + + + | [facility] | [address] | [place] [address] | | | SERVICES, CORE | [address] | | | + + + + + ANTIBODY SCREEN (04/10/2013 2:20 PM PDT) + + + + + + | Component | Value | Ref Range | Performed | Pathologist | | | | | At | Signature | + + + + + + | Antibody | Negative | | [facility] | | | Screen | | | LABORATORY | | | | | | SERVICES, | | | | | | TRANSFUSION | | | | | | MEDICINE | | + + + + + + + + | Specimen | + + | Blood - Blood | + + + + + + + | Performing | Address | City/State/Zipcode | Phone Number | | Organization | | | | + + + + + | [facility] | [address] | [place] [address] | | | SERVICES, | [address] | | | | TRANSFUSION MEDICINE | | | | + + + + + ABO & RH TYPE (04/10/2013 2:20 PM PDT) + + + + + + | Component | Value | Ref Range | Performed | Pathologist | | | | | At | Signature | + + + + + + | ABO Group | A | | [facility] | | | | | | LABORATORY | | | | | | SERVICES, | | | | | | TRANSFUSION | | | | | | MEDICINE | | + + + + + + | Rh Type | Negative | | [facility] | | | | | | LABORATORY | | | | | | SERVICES, | | | | | | TRANSFUSION | | | | | | MEDICINE | | + + + + + + + + | Specimen | + + | Blood - Blood | + + + + + + + | Performing | Address | City/State/Zipcode | Phone Number | | Organization | | | | + + + + + | [facility] | [address] | [place] [address] | | | [place]ETTE | [place] | | | | TRANSFUSION MEDICINE | | | | + + + + + BASIC METABOLIC SET (NA, K, CL, TCO2, BUN, CR, GLU, CA) (04/10/2013 2:20 PM PDT) + +---------+ + + + | Component | Value | Ref Range | Performed | Pathologist | | | | | At | Signature | + +---------+ + + + | GLUCOSE, | 294 (H) | 60 - 99 mg/dL | [facility] | | | PLASMA | | | LABORATORY | | | (LAB) | | | SERVICES, | | | | | | CORE | | + +---------+ + + + | BUN, PLASMA | 18 | 6 - 20 mg/dL | [facility] | | | (LAB) | | | LABORATORY | | | | | | SERVICES, | | | | | | CORE | | + +---------+ + + + | CREATININE | 0.97 | 0.70 - 1.30 | [facility] | | | PLASMA | | mg/dL | LABORATORY | | | (LAB) | | | SERVICES, | | | | | | CORE | | + +---------+ + + + | EGFR | >60 | >60 mL/min | [facility] | | | - | | | LABORATORY | | | TRISTANIAN | | | SERVICES, | | | | | | CORE | | + +---------+ + + + | EGFR NON | >60 | >60 mL/min | [facility] | | | -ARTIE | | | LABORATORY | | | RICAN | | | SERVICES, | | | | | | CORE | | + +---------+ + + + | SODIUM, | 138 | 136 - 145 | [facility] | | | PLASMA | | mmol/L | LABORATORY | | | (LAB) | | | SERVICES, | | | | | | CORE | | + +---------+ + + + | POTASSIUM, | 4.9 | 3.4 - 5.0 | [facility] | | | PLASMA | | mmol/L | LABORATORY | | | (LAB) | | | SERVICES, | | | | | | CORE | | + +---------+ + + + | CHLORIDE, | 100 | 97 - 108 mmol/L | [facility] | | | PLASMA | | | LABORATORY | | | (LAB) | | | SERVICES, | | | | | | CORE | | + +---------+ + + + | TOTAL CO2, | 27 | 21 - 32 mmol/L | [facility] | | | PLASMA | | | LABORATORY | | | (LAB) | | | SERVICES, | | | | | | CORE | | + +---------+ + + + | CALCIUM, | 9.7 | 8.6 - 10.2 | [facility] | | | PLASMA | | mg/dL | LABORATORY | | | (LAB) | | | SERVICES, | | | | | | CORE | | + +---------+ + + + | ANION GAP | 11 | mmol/L | [facility] | | | [...] the MDRD equation recommended by the | [facility] | | National Kidney Disease Education Program. [...] | + + + + + | [facility] | [address] | [place] [address] | | | SERVICES, CORE | [address] | | | + + + + + HEMOGLOBIN A1C, POC (04/10/2013 2:10 PM PDT) + +---------+ + + + | Component | Value | Ref Range | Performed | Pathologist | | | | | At | Signature | + +---------+ + + + | HEMOGLOBIN | 8.3 (H) | 4.0 - 5.7 % | [facility], | | | A1C,POC | | | POINT OF | | | | | | CARE TESTS | | + +---------+ + + + + + | Specimen | + + | Blood | + + + + + + + | Performing | Address | City/State/Zipcode | Phone Number | | Organization | | | | + + + + + | [facility] | [address] | [place] [address] | | | OF CARE TESTS | | | | + + + + + documented in this encounter Visit Diagnoses + + | Diagnosis | + + | Preop examination - Primary Preoperative examination, unspecified | + + | Morbid obesity (HCC) Morbid obesity | + + | DM (diabetes mellitus) ([facility]) Type II or unspecified type diabetes mellitus without | | mention of complication, not stated as uncontrolled | + + | Hypertension Unspecified essential hypertension | + + | Hyperlipidemia Other and unspecified hyperlipidemia | + + | Localized adiposity | + + | Lipoma of unspecified site | + + | S/P partial gastrectomy Other postprocedural status | + + | Sleep apnea Unspecified sleep apnea | + + | Thyroid cancer (HCC) Malignant neoplasm of thyroid gland | + + documented in this encounter
--- OUTSIDE RECORDS SUMMARY | ~2020-04-13 | XMS | Encounter Summary ---
Demographics + + + | Address | [address] | | | [place] [address] | + + + | Home Phone | | + + + | Preferred Language | Unknown | + + + | Marital Status | | + + + | Denominational Affiliation | CHR | + + + | Race | White | + + + | Ethnic Group | Not or | + + + Author + + + | Author | [facility] | + + + | Organization | [facility] | + + + | Address | Unknown | + + + | Phone | Unavailable | + + + Support + + + + + | Name | Relationship | Address | Phone | + + + + + | Tico Burns | ECON | [address] | | | | | [place], [place] | | | | | [address] | | + + + + + Care Team Providers + +------+ + | Care Building Illuminating Engineer Name | Role | Phone | + +------+ + | Moe Bella MD | PCP | | + +------+ + Encounter Details +--------+ + + + + | Date | Type | Department | Care Team | Description | +--------+ + + + + | 10/18/ | Abstract | Digestive Health | Violetta Byers, | | | 2011 | | Center at [facility] [address] | WORKER'S COMPENSATION CLAIMS EXAMINER [address] | | | | | [address] | [facility] [address] | | | | | Mailcode: Center | [place], [place] | | | | | for Health and | [address] | | | | | [facility], [facility] [address] | [phone] | | | | | [place], [place] | | | | | | [address] | | | | | | [phone] | | | +--------+ + + + [...]
--- OUTSIDE RECORDS SUMMARY | ~2020-04-13 | XMS | Encounter Summary ---
Demographics + + + | Address | [address] | | | [place] [address] | + + + | Home Phone | | + + + | Preferred Language | Unknown | + + + | Marital Status | | + + + | Caodaism Affiliation | 1013 | + + + | Race | Unknown | + + + | Ethnic Group | Unknown | + + + Author + + + | Author | [facility] | | | and [place] | + + + | Organization | [facility] | | | and [place] | + + + | Address | Unknown | + + + | Phone | Unavailable | + + + Support + + + + + | Name | Relationship | Address | Phone | + + + + + | Milady Burns | ECON | [address] | | | | | [place], [place] | | | | | [address] | | + + + + + Care Team Providers + +------+ + | Care Clinical Quality Assurance Specialist Name | Role | Phone | + +------+ + | Moe Bella MD | PCP | | + +------+ + Encounter Details +--------+ + + + + | Date | Type | Department | Care Team | Description | +--------+ + + + + | 06/02/ | Orders Only | [facility] | Provider, | | | 2018 | | SYSTEM GENERIC OP | [address] | | | | | CONVERSION [address] | [place] | | | | | [address] [place], [place] | [place] [address] | | | | | [address] | | | | | | [phone] | | | +--------+ + + + [...] | 0 Standard drinks | 0.0 | Alcoholic | | | or equivalent | | Drinks/day: rare | + + +---------+ + + + [...]
--- OUTSIDE RECORDS SUMMARY | ~2020-04-13 | XMS | Encounter Summary ---
Demographics + + + | Address | [address] | | | [place] [address] | + + + | Home Phone [...] + + + | Author | [facility] | + + + | Organization | [facility] | + + + | Address | Unknown | + + + | Phone | Unavailable | + + + Support + + + + + | Name | Relationship | Address | Phone | + + + + + | Tico Burns | ECON | [address] | | | | | [place], [place] | | | | | [address] | | + + + + + Care Team Providers + +------+ + | Care Realtime Captioner Name | Role | Phone | + +------+ + | Moe Bella MD | PCP | | + +------+ + Encounter Details +--------+ + + + + | Date | Type | Department | Care Team | Description | +--------+ + + + + | 12/13/ | Abstract | Digestive Health | Violetta Byers, | | | 2012 | | Center at [facility] [address] | SENIOR UNIX ADMINISTRATOR [address] | | | | | [address] | [facility] [address] | | | | | Mailcode: Center | [place], [place] | | | | | for Health and | [address] | | | | | [facility] [address] | [phone] | | | | | [place], [place] | | | | | | [address] | | | | | | [phone] | | | +--------+ + + + [...]
--- OUTSIDE RECORDS SUMMARY | ~2020-04-13 | XMS | Encounter Summary ---
Demographics + + + | Address | [address] | | | [place] [address] | + + + | Home Phone | | + + + | Preferred Language | Unknown | + + + | Marital Status | | + + + | Samaritan Affiliation | 1013 | + + + | Race | Unknown | + + + | Ethnic Group | Unknown | + + + Author + + + | Author | [facility] | | | and [place] | + + + | Organization | [facility] | | | and [place] | + + + | Address | Unknown | + + + | Phone | Unavailable | + + + Support + + + + + | Name | Relationship | Address | Phone | + + + + + | Milady Burns | ECON | [address] | | | | | [place] | | | | | [address] | | + + + + + Care Team Providers + +------+ + | Care Lug Loader Name | Role | Phone | + +------+ + | Moe Bella MD | PCP | | + +------+ + Reason for Visit +--------+ + | Reason | Comments | +--------+ + | Other | | +--------+ + Encounter Details +--------+ + + + + | Date | Type | Department | Care Team | Description | +--------+ + + + + | 04/25/ | Telephone | [facility] [place] | Chauncey Lee MD | Other | | 2016 | | NEUROSURGERY [address] | [address] | | | | | [address] | [place] [address] | | | | | [place] | [phone] | | | | | [address] | | | | | | [phone] | | | +--------+ + + + [...]
--- OUTSIDE RECORDS SUMMARY | ~2020-04-13 | XMS | Encounter Summary ---
Demographics + + + | Address | [address] | | | [place] [address] | + + + | Home Phone | | + + + | Preferred Language | Unknown | + + + | Marital Status | | + + + | Yazidism Affiliation | 1013 | + + + | Race | Unknown | + + + | Ethnic Group | Unknown | + + + Author + + + | Author | [facility] | | | and [place] | + + + | Organization | [facility] | | | and [place] | + + + | Address | Unknown | + + + | Phone | Unavailable | + + + Support + + + + + | Name | Relationship | Address | Phone | + + + + + | Milady Burns | ECON | [address] | | | | | [place] | | | | | [address] | | + + + + + Care Team Providers + +------+ + | Care Test Case Developer Name | Role | Phone | + +------+ + | Moe Bella MD | PCP | | + +------+ + Encounter Details +--------+ + + + + | Date | Type | Department | Care Team | Description | +--------+ + + + + | 04/28/ | Orders Only | [facility] [place] | Chauncey Lee MD | Cervical spondylosis | | 2016 | | NEUROSURGERY [address] | [address] | with radiculopathy | | | | [address] | [place] [address] | (Primary Dx); Morbid | | | | [place], [place] | [phone] | obesity, | | | | [address] | | unspecified obesity | | | | [phone] | | type (HCC); | | | [...] filedocumented as of this encounter Results XR Chest PA and Lateral (05/10/2016 4:07 PM PDT) + + | Specimen | + + | | + + + + + | Narrative | Performed At | + + + | XR CHEST PA AND LATERAL. 05/10/2016 4:07 PM HISTORY: | [facility] | | preoperative clearance . COMPARISON: None available. | [facility] | | FINDINGS: Heart size within normal limits. Mild calcification of | MEDICAL CENTER | | the aortic arch. Otherwise unremarkable mediastinal contours. The | - IMAGING | | lungs are clear, without pleural effusion or pneumothorax. Rounded, | | | somewhat irregularly-shaped calcification superimposed over the left | | | scapula just medial to the level of the shoulder joint measuring | | | approximately 1.7 cm in maximal dimension, of uncertain etiology or | | | clinical significance. There is mild degenerative disc disease with | | | exaggeration of the thoracic kyphosis. IMPRESSION - No acute | | | cardiopulmonary abnormality. Rounded, somewhat irregularly-shaped | | | calcification superimposed over the left scapula, uncertain etiology | | | or clinical significance. Dictated and Signed by: Naeem | | | MD Antonio Electronically signed: 05/10/2016 5:26 PM | | + + + + + | Procedure Note | + + | [place], Rad Results In - 05/10/2016 5:29 PM PDT XR CHEST PA AND LATERAL. 05/10/2016 4:07 | | PMHISTORY: preoperative clearance . COMPARISON: None available.FINDINGS:Heart size | | within normal limits. Mild calcification of the aortic arch. Otherwise unremarkable | | mediastinal contours. The lungs are clear, withoutpleural effusion or pneumothorax. | | Rounded, somewhat irregularly-shapedcalcification superimposed over the left scapula | | just medial to the level of theshoulder joint measuring approximately 1.7 cm in maximal | | dimension, of uncertainetiology or clinical significance. There is mild degenerative | | disc disease withexaggeration of the thoracic kyphosis.IMPRESSION -No acute | | cardiopulmonary abnormality.Rounded, somewhat irregularly-shaped calcification | | superimposed over the leftscapula, uncertain etiology or clinical significance.Dictated | | and Signed by: Naeem Alvarez MD Electronically signed: 05/10/2016 5:26 PM | |shoulder joint measuring approximately 1.7 cm in maximal dimension, of uncertain | |etiology or clinical significance. There is mild degenerative disc disease with | |exaggeration of the thoracic kyphosis. | | | | | |IMPRESSION - | |No acute cardiopulmonary abnormality. | |Rounded, somewhat irregularly-shaped calcification superimposed over the left | |scapula, uncertain etiology or clinical significance. | | | |Dictated and Signed by: Naeem Alvarez MD | | Electronically signed: 05/10/2016 5:26 PM | + + + + + + + | Performing | Address | City/State/Zipcode | Phone Number | | Organization | | | | + + + + + | [facility] | [address] | [place] | [phone] | | [facility] | | [address] | | | - IMAGING | | | | + + + + + ECG 12 lead (05/10/2016 3:43 PM PDT) [...] | | | | CHARI AUGUST MD ([id number]) | | | | | | on [...] | Neutrophils | | K/uL | [facility] | | | | | | MEDICAL | | | | | | CENTER - | | | | | | LABORATORY | | + +-------+ + + + | Absolute | 2.10 | 0.60 - 3.20 | [facility] | | | Lymphocytes | | K/uL | [facility] | | | | | | MEDICAL | | | | | | CENTER - | | | | | | LABORATORY | | + +-------+ + + + | Absolute | 0.50 | 0.00 - 1.00 | [facility] | | | Monocytes | | K/uL | [facility] | [...] | 0.10 | 0.00 - 0.10 | [facility] | | | Basophils | | K/uL | [facility] | [...] + | [facility] | [address] | [place] | [phone] | | [facility] | | [address] | | | - LABORATORY | | [...] 13 | 7 - 18 mg/dL | [facility] | | | | | | [facility] | | | | | | MEDICAL | | | | | | CENTER - | | | | | | LABORATORY | | + + + + + + | Creatinine | 0.92 | 0.60 - 1.30 | [facility] | | | | | mg/dL | [facility] | | | | | | MEDICAL | | | | | | CENTER - | | | | | | LABORATORY | | + + + + + + | eGFR if not | >60Comment: GLOMERULAR | >=60 | [facility] | | | | FILTRATION | mL/min/1.73m2 | [facility] | | | CZECH | RATE,ESTIMATED | | MEDICAL | | | | mL/min/1.50f8Yhfo than | | CENTER - | | [...] | ine Ratio | | | [facility] | | [...] + + | [facility] | [address] | [place], [place] | [phone] | | [facility] | | [address] | | | - LABORATORY | | | | + + + + + documented in this encounter Visit Diagnoses + + | Diagnosis | + + | Cervical spondylosis with radiculopathy - Primary Cervical spondylosis with | | myelopathy | + + | Morbid obesity, [...]
--- OUTSIDE RECORDS SUMMARY | ~2020-04-13 | XMS | Encounter Summary ---
Demographics + + + | Address | [address] | | | [place] [address] | + + + | Home Phone | | + + + | Preferred Language | Unknown | + + + | Marital Status | | + + + | Jain Affiliation | 1013 | + + + | Race | Unknown | + + + | Ethnic Group | Unknown | + + + Author + + + | Author | [facility] | | | and [place] | + + + | Organization | [facility] | | | and [place] | + + + | Address | Unknown | + + + | Phone | Unavailable | + + + Support + + + + + | Name | Relationship | Address | Phone | + + + + + | Milady Burns | ECON | [address] | | | | | [place] | | | | | [address] | | + + + + + Care Team Providers + +------+ + | Care Tire Technician Name | Role | Phone | + +------+ + | Meo Bella MD | PCP | | + [...] | | | | CLINIC [address] | [place] [address] | Morbid obesity, | | | | [place] | [phone] | unspecified obesity | | | | [address] | | type (HCC); | | | [...] | | | | CHARI AUGUST MD ([id number]) | | | | | | on [...] | Basophils | | K/uL | [facility] | [...] [address] | [place] | [phone] | | [facility] | | [address] | | | - LABORATORY | | [...] 13 | 7 - 18 mg/dL | [facility] | | | | | | [facility] | | | | | | MEDICAL | | | | | | CENTER - | | | | | | LABORATORY | | + + + + + + | Creatinine | 0.92 | 0.60 - 1.30 | [facility] | | | | | mg/dL | [facility] | | | | | | MEDICAL | | | | | | CENTER - | | | | | | LABORATORY | | + + + + + + | eGFR if not | >60Comment: GLOMERULAR | >=60 | [facility] | | | | FILTRATION | mL/min/1.73m2 | [facility] | | | MOZAMBICAN | RATE,ESTIMATED | | MEDICAL | | | | mL/min/1.49w1Ieiy than | | CENTER - | | [...] + | [facility] | [address] | [place] | [phone] | | [facility] | | [address] | | | - LABORATORY | | [...] [address] | [place] | [phone] | | [facility] | | [address] | | | - LABORATORY | | [...]
--- OUTSIDE RECORDS SUMMARY | ~2020-04-13 | XMS | Encounter Summary ---
Demographics + + + | Address | [address] | | | [place] [address] | + + + | Home Phone | | + + + | Preferred Language | Unknown | + + + | Marital Status | | + + + | Zoroastrianism Affiliation | 1013 | + + + | Race | Unknown | + + + | Ethnic Group | Unknown | + + + Author + + + | Author | [facility] | | | and [place] | + + + | Organization | [facility] | | | and [place] | + + + | Address | Unknown | + + + | Phone | Unavailable | + + + Support + + + + + | Name | Relationship | Address | Phone | + + + + + | Milady Burns | ECON | [address] | | | | | [place], [place] | | | | | [address] | | + + + + + Care Team Providers + +------+ + | Care Hospital Orderly Name | Role | Phone | + +------+ + | Moe Bella MD | PCP | | + +------+ + Encounter Details +--------+ + + + + | Date | Type | Department | Care Team | Description | +--------+ + + + + | 02/09/ | Imaging | [facility] | Provider, | | | 2020 | Exam | [facility] | MD [address] | | | | | IMAGING [address] | [place] | | | | | [address] | [place] [address] | | | | | [place] [address] | | | | | | [phone] | | | +--------+ + + + [...] | + +--------+ + + + | MRI LUMBAR SPINE WO | Routin | 12/23/2019 | | Results for this | | CONTRAST | e | 12:00 AM | | procedure are in the | | | | PST | | results section. | + +--------+ + + + documented in this encounter Results MRI Lumbar Spine wo Contrast (12/23/2019 12:00 AM PST) + + | Specimen | + + | | + + + + + | Narrative | Performed At | + + + | External films for comparison only | [facility] | | | | | No results will be in the chart. | | + + + + +---------+ + + | Performing | Address | City/State/Zipcode | Phone Number | | Organization | | | | + +---------+ + + | [facility] | | | | + +---------+ + + documented in this encounter Visit Diagnoses Not on filedocumented in this encounter"
--- OUTSIDE RECORDS SUMMARY | ~2020-04-13 | XMS | Encounter Summary ---
Demographics + + + | Address | [address] | | | [place] [address] | + + + | Home Phone | | + + + | Preferred Language | Unknown | + + + | Marital Status | | + + + | Episcopalian Affiliation | CHR | + + + | Race | White | + + + | Ethnic Group | Not or | + + + Author + + + | Author | [facility] | + + + | Organization | [facility] | + + + | Address | Unknown | + + + | Phone | Unavailable | + + + Support + + + + + | Name | Relationship | Address | Phone | + + + + + | Tico Burns | ECON | [address] | | | | | [place], [place] | | | | | [address] | | + + + + + Care Team Providers + +------+ + | Care Label Tacker Name | Role | Phone | + +------+ + | Moe Bella MD | PCP | | + +------+ + Reason for Visit +--------+ + | Reason | Comments | +--------+ + | FMLA | | +--------+ + Encounter Details +--------+ + + + + | Date | Type | Department | Care Team | Description | +--------+ + + + + | 01/16/ | Telephone | [facility] | [place] [facility], | FMLA | | 2012 | | Center [address] | [address] | | | | | [address] Mailcode: [facility] | | | | | | [facility] | | | | | | and Healing, | | | | | | Building 1, | | | | | | Floor [place], [place] | | | | | | [address] | | | | | | [phone] | | | +--------+ + + + [...]
--- OUTSIDE RECORDS SUMMARY | ~2020-04-13 | XMS | Encounter Summary ---
Demographics + + + | Address | [address] | | | [place] [address] | + + + | Home Phone | | + + + | Preferred Language | Unknown | + + + | Marital Status | | + + + | Moravian Affiliation | CHR | + + + [...] | + + + + + | Tioc Burns | ECON | [address] | | | | | [place], [place] | | | | | [address] | | + + + + + Care Team Providers + +------+ + | Care Stopper Maker Name | Role | Phone | + +------+ + | Moe Bella MD | PCP | | + +------+ + Reason for Visit + + + | Reason | Comments | + + + | Follow-up encounter | check in post discharge | + + + Encounter Details +--------+ + + + + | Date | Type | Department | Care Team | Description | +--------+ + + + + | 01/16/ | Telephone | [facility] | Violetta Byers, | Follow-up encounter | | 2012 | | Center at [facility] [address] | ENVIRONMENTAL HEALTH OFFICER [address] | (check in post | | | | [address] | , [address] | discharge) | | | | Mailcode: Center | [place], [place] | | | | | and | [address] | | | | | [facility] 2 | [phone] | | | | | [place], [place] | | | | | | [address] | | | | | | [phone] | | | +--------+ + + + [...]
--- OUTSIDE RECORDS SUMMARY | ~2020-04-13 | XMS | Encounter Summary ---
Demographics + + + | Address | [address] | | | [place] [address] | + + + | Home Phone | | + + + | Preferred Language | Unknown | + + + | Marital Status | | + + + | Latter-Day Affiliation | 1013 | + + + | Race | Unknown | + + + | Ethnic Group | Unknown | + + + Author + + + | Author | [facility] | | | and [place] | + + + | Organization | [facility] | | | and [place] | + + + | Address | Unknown | + + + | Phone | Unavailable | + + + Support + + + + + | Name | Relationship | Address | Phone | + + + + + | Milady Burns | ECON | [address] | | | | | [place] | | | | | [address] | | + + + + + Care Team Providers + +------+ + | Care Logistics Specialist Name | Role | Phone | + +------+ + | Moe Bella MD | PCP | | + +------+ + Encounter Details +--------+ + + + + | Date | Type | Department | Care Team | Description | +--------+ + + + + | 04/04/ | Hospital | [facility] | Chauncey Lee MD | S/P cervical spinal | | 2016 | Encounter | MED CTR XRAY [address] | [address] | fusion | | | | [place] | [place] [address] | | | | | [place] [address] | [phone] | | | | | [phone] | | | +--------+ + + + [...] + + documented as of this encounter Medications at Time of Discharge + + + +---------+ + + | Medication | Sig | Dispensed | Refills | Start | End Date | | | | | | Date | | + + + +---------+ + + | TOMAS MICROLET | Use as directed | | 0 | 07/19/20 | | | LANCETS MISC | | | | 12 | | + + + +---------+ + + | calcium | Take by mouth. | | 0 | 01/25/20 | | | citrate-vitamin D3 | | | | 13 | | | (CITRACAL | | | | | | | PETITES/VITAMIN D) | | | | | | | 200-250 mg-unit | | | | | | | tablet | | | | | | + + + +---------+ + + | ergocalciferol | Take 50,000 Units by | | 0 | 07/19/20 | | | (ERGOCALCIFEROL) | mouth Once a week. | | | 12 | | | [address] UNITS capsule | | | | | | + + + +---------+ + + | FLUoxetine | Take 20 mg by mouth | | 0 | 07/19/20 | | | (PROZAC) 20 mg | Daily. | | | 12 | | | capsule | | | | | | + + + +---------+ + + | Glucose Blood | Use as directed | | 0 | 07/19/20 | | | (TOMAS BREEZE 2 | | | | 12 | | | TEST) DISK | | | | | | + + + +---------+ + + | insulin glargine | Inject 40 Units | | 0 | 04/14/20 | | | (LANTUS) 100 | under the skin 2 | | | 13 | | | units/mL injection | times daily. As | | | | | | (vial) | directed. | | | | | + + + +---------+ + + | insulin lispro | Inject 10 Units | | 0 | 04/14/20 | | | (HUMALOG) 100 | under the skin 3 | | | 13 | | | units/mL injection | times daily. And | | | | | | (vial) | sliding scale. | | | | | + + + +---------+ + + | | Take 100-25 mg by | | 0 | 07/19/20 | | | losartan-hydrochloro | mouth Daily. | | | 12 | | | thiazide (HYZAAR) | | | | | | | 100-25 MG per tablet | | | | | | + + + +---------+ + + | Multiple Vitamin | Take by mouth. | | 0 | 04/14/20 | | | (MULTIVITAMIN) | | | | 13 | | | capsule | | | | | | + + + +---------+ + + | Pediatric Multiple | Take 1 Tab by mouth | | 0 | 01/11/20 | | | Vit-C-FA (CHILDRENS | two times daily. | | | 13 | | | CHEWABLE VITAMINS) | | | | | | | CHEW | | | | | | + + + +---------+ + + | polyethylene | Take by mouth. | | 0 | 04/14/20 | | | glycol (MIRALAX) | | | | 13 | | | powder | | | | | | + + + +---------+ + + | rosuvastatin | Take 40 mg by mouth | | 0 | 07/19/20 | | | (CRESTOR) 40 MG | Daily. | | | 12 | | | tablet | | | | | | + + + +---------+ + + | aspirin (ASPIRIN | Take 81 mg by mouth | | 0 | 07/19/20 | | | LOW DOSE) 81 MG EC | Daily. | | | 12 | 6 | | tablet | | | | | | + + + +---------+ + + | cloNIDine | Take 0.1 mg by mouth | | 0 | 07/19/20 | | | (CATAPRES) 0.1 mg | 2 times daily. | | | 12 | 6 | | tablet | | | | | | + + + +---------+ + + | insulin glargine | Inject 80 Units into | | 0 | 04/14/20 | | | (LANTUS) 100 | the skin. | | | 13 | 0 | | units/mL injection | | | | | | | (vial) | | | | | | + + + +---------+ + + | insulin glargine | Inject under the | | 0 | 04/14/20 | | | (LANTUS) 100 | skin. | | | 13 | 0 | | units/mL injection | | | | | | | (vial) | | | | | | + + + +---------+ + + | insulin glargine | Inejct 60 units at | | 0 | 07/19/20 | | | (LANTUS) 100 | bedtime | | | 12 | 7 | | units/mL injection | | | | | | + + + +---------+ + + | insulin glulisine | Inject 1 unit per 2 | | 0 | 07/19/20 | | | (APIDRA) 100 | carbs, plus | | | 12 | 6 | | units/mL injection | correction as | | | | | | | directed | | | | | + + + +---------+ + + | insulin lispro | Inject under the | | 0 | | | | (HUMALOG) 100 | skin 3 times daily | | | | 0 | | units/mL injection | (before meals). 25 | | | | | | (vial) | units three times | | | | | | | daily | | | | | + + + +---------+ + + | levothyroxine | Take 50 mcg by mouth | | 0 | 07/19/20 | | | (SYNTHROID) 50 mcg | Daily. | | | 12 | 7 | | tablet | | | | | | + + + +---------+ + + | levothyroxine | Take 200 mcg by | | 0 | | | | (SYNTHROID, | mouth every morning | | | | 0 | | LEVOTHROID) 200 mcg | (before breakfast). | | | | | | tablet | | | | | | + + + +---------+ + + | metFORMIN | Take 4 tablets by | | 0 | 07/19/20 | | | (GLUCOPHAGE) 500 mg | mouth daily with | | | 12 | 6 | | tablet | evening meal | | | | | + + + +---------+ + + | metoprolol (TOPROL | Take 200 mg by mouth | | 0 | 07/19/20 | | | XL) 200 MG 24 hr | Daily. | | | 12 | 0 | | tablet | | | | | | + + + +---------+ + + | metoprolol | Take 100 mg by mouth | | 0 | | | | tartrate (LOPRESSOR) | 2 times daily. | | | | 6 | | 100 mg tablet | | | | | | + + + +---------+ + + | Pediatric Multiple | Take by mouth. | | 0 | 01/11/20 | | | Vit-C-FA (CHILDRENS | | | | 13 | 0 | | CHEWABLE VITAMINS) | | | | | | | CHEW | | | | | | + + + +---------+ + + | pramlintide | Inject 120 mcg three | | 0 | 07/19/20 | | | (SYMLINPEN 120) 1000 | times daily before | | | 12 | 6 | | MCG/ML injection | meals | | | | | + + + +---------+ + + documented as of this encounter Plan of Treatment Not on filedocumented as of this encounter Procedures + +--------+ + + + | Procedure Name | Priori | Date/Time | Associated Diagnosis | Comments | | | ty | | | | + +--------+ + + + | XR CERVICAL SPINE 2 | Routin | 04/04/2016 | S/P cervical | Results for this | | OR 3 VIEWS | e | 11:51 AM | spinal fusion | procedure are in the | | | | PDT | | results section. | + +--------+ + + + documented in this encounter Results XR Cervical Spine 2 or 3 Views (04/04/2016 11:51 AM PDT) + + | Specimen | + + | | + + + + + | Narrative | Performed At | + + + | THREE VIEWS CERVICAL SPINE 04/04/2016 11:41 AM CLINICAL HISTORY: | [facility] | | neck pain COMPARISON: Cervical MRI February 27 FINDINGS: Lateral | [facility] | | views in neutral, flexed and extended positions are provided. There | [facility] | | is straightening of the cervical lordosis. Cervical vertebral height | - IMAGING | | and alignment are otherwise maintained, without evident fracture or | | | subluxation, even with active flexion and extension. Moderate disc | | | space narrowing and vertebral spondylosis are present at C4-5, C5-6 | | | and C6-7. There is multilevel facet hypertrophy as well. Skull | | | base and soft tissue structures are unremarkable. IMPRESSION - | | | 1. 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 Dictated and Signed by: Cheng Ahumada MD | | | Electronically signed: 04/04/2016 1:38 PM | | + + + + + | Procedure Note | + + | [place], Rad Results In - 04/04/2016 1:41 PM PDT THREE VIEWS CERVICAL SPINE 04/04/2016 | | 11:41 AMCLINICAL HISTORY: neck painCOMPARISON: Cervical MRI February 27FINDINGS: Lateral | | views in neutral, flexed and extended positions are provided. There is straightening of | | the cervical lordosis. Cervical vertebral height andalignment are otherwise maintained, | | without evident fracture or subluxation,even with active flexion and extension. | | Moderate disc space narrowing andvertebral spondylosis are present at C4-5, C5-6 and | | C6-7. There is multilevelfacet hypertrophy as well. Skull base and soft tissue | | structures areunremarkable.IMPRESSION -1. MULTILEVEL DEGENERATIVE DISC DISEASE AND | | SPONDYLOSIS WITHOUTSPONDYLOLISTHESIS.Dictated and Signed by: Cheng Ahumada MD | | Electronically signed: 04/04/2016 1:38 PM | |vertebral spondylosis are present at C4-5, C5-6 and C6-7. There is multilevel | |facet hypertrophy as well. Skull base and soft tissue structures are | |unremarkable. | | | |IMPRESSION - | |1. MULTILEVEL DEGENERATIVE DISC DISEASE AND SPONDYLOSIS WITHOUT | |SPONDYLOLISTHESIS. | | | |Dictated and Signed by: Cheng Ahumada MD | | Electronically signed: 04/04/2016 1:38 PM | + + + + + + + | Performing | Address | City/State/Zipcode | Phone Number | | Organization | | | | + + + + + | [address] | [address] | [place] | [phone] | | [facility] | | [address] | | | - IMAGING | | | | + + + + + documented in this encounter Visit Diagnoses + + | Diagnosis | + + | S/P cervical spinal fusion Arthrodesis status | + + documented in this encounter"
--- OUTSIDE RECORDS SUMMARY | ~2020-04-13 | XMS | Encounter Summary ---
Demographics + + + | Address | [address] | | | [place] [address] | + + + | Home Phone | | + + + | Preferred Language | Unknown | + + + | Marital Status | | + + + | Temple Affiliation | CHR | + + + | Race | White | + + + | Ethnic Group | Not or | + + + Author + + + | Author | [facility] | + + + | Organization | [facility] | + + + | Address | Unknown | + + + | Phone | Unavailable | + + + Support + + + + + | Name | Relationship | Address | Phone | + + + + + | Tico Burns | ECON | [address] | | | | | [place], [place] | | | | | [address] | | + + + + + Care Team Providers + +------+ + | Care Mid Level Provider Name | Role | Phone | + +------+ + | Moe Bella MD | PCP | | + +------+ + Reason for Visit + + + | Reason | Comments | + + + | Medical Records | [facility] - OUTSIDE LAB: lipid panel, CMP, [...] | | 2013 | | Center at [facility] [address] | [employer] [address] | Review ([facility] - | | | | [address] | , [address] | OUTSIDE LAB: lipid | | | | Mailcode: [place] | [place], [place] | panel, CMP, | | | | for Health and | [address] | hemoglobin, | | | | Healing, Building 2 | [phone] | thyroglobulin | | | | [place], [place] | | 11/03/2013, | | | | [address] | | 12/19/2013, | | | | [phone] | | 03/23/2014) | +--------+ + + [...]
--- OUTSIDE RECORDS SUMMARY | ~2020-04-13 | XMS | Encounter Summary ---
Demographics + + + | Address | [address] | | | [place] [address] | + + + | Home Phone | | + + + | Preferred Language | Unknown | + + + | Marital Status | | + + + | Scientologist Affiliation | CHR | + + + [...] + | Tico Burns | ECON | [address] | | | | | [place], [place] | | | | | [address] | | + + + + + Care Team Providers + +------+ + | Care Environmental Resource Specialist Name | Role | Phone | + +------+ + | Moe Bella MD | PCP | | + +------+ + Encounter Details +--------+ + + + + | Date | Type | Department | Care Team | Description | +--------+ + + + + | 08/19/ | Abstract | [facility] | Violetta Byers, | | | 2011 | | Center at [facility] [address] | REMARKETING MANAGER [address] | | | | | [address] | [facility] [address] | | | | | Mailcode: Center | [place], [place] | | | | | for Health and | [address] | | | | | [facility], [facility] 2 | [phone] | | | | | [place], [place] | | | | | | [address] | | | | | | [phone] | | | +--------+ + + + [...]
--- OUTSIDE RECORDS SUMMARY | ~2020-04-13 | XMS | Encounter Summary ---
Demographics + + + | Address | [address] | | | [place] [address] | + + + | Home Phone [...] + | Tico Burns | ECON | [address] | | | | | [place], [place] | | | | | [address] | | + + + + + Care Team Providers + +------+ + | Care Skid Road Man Name | Role | Phone | + +------+ + | Moe Bella MD | PCP | | + +------+ + Reason for Visit + + + | Reason | Comments | + + + | Medical Records | | | Review | | + + + Encounter Details +--------+ + + + + | Date | Type | Department | Care Team | Description | +--------+ + + + + | 06/06/ | Abstract | Dig[facility] Health | Clinic, Surgery | Medical Records | | 2017 | | Center at [facility] [address] | | Review | | | | [address] | | | | | | Mailcode: Center | | | | | | for Health and | | | | | | [facility], Building 2 | | | | | | [place], [place] | | | | | | [address] | | | | | | [phone] | | | +--------+ + + + [...]
--- OUTSIDE RECORDS SUMMARY | ~2020-04-13 | XMS | Encounter Summary ---
Demographics + + + | Address | [address] | | | [place] [address] | + + + | Home Phone | | + + + | Preferred Language | Unknown | + + + | Marital Status | | + + + | Nondenominational Affiliation | CHR | + + + | Race | White | + + + | Ethnic Group | Not or | + + + Author + + + | Author | [facility] | + + + | Organization | [facility] | + + + | Address | Unknown | + + + | Phone | Unavailable | + + + Support + + + + + | Name | Relationship | Address | Phone | + + + + + | Tico Burns | ECON | [address] | | | | | [place], [place] | | | | | [address] | | + + + + + Care Team Providers + +------+ + | Care Senior Grants Officer Name | Role | Phone | + +------+ + | Moe Bella MD | PCP | | + +------+ + Encounter Details +--------+ + + + + | Date | Type | Department | Care Team | Description | +--------+ + + + + | 12/02/ | Abstract | [facility] | Violetta Byers, | | | 2012 | | Center at [facility] [address] | HAND CULTIVATOR [address] | | | | | [address] | [facility] [address] | | | | | Mailcode: Center | [place], [place] | | | | | for Health and | [address] | | | | | [facility] 2 | [phone] | | | | | [place], [place] | | | | | | [address] | | | | | | [phone] | | | +--------+ + + + [...]
--- OUTSIDE RECORDS SUMMARY | ~2020-04-13 | XMS | Encounter Summary ---
Demographics + + + | Address | [address] | | | [place] [address] | + + + | Home Phone | | + + + | Preferred Language | Unknown | + + + | Marital Status | | + + + | Gnosticist Affiliation | 1013 | + + + | Race | Unknown | + + + | Ethnic Group | Unknown | + + + Author + + + | Author | [facility] | | | and [place] | + + + | Organization | [facility] | | | and [place] | + + + | Address | Unknown | + + + | Phone | Unavailable | + + + Support + + + + + | Name | Relationship | Address | Phone | + + + + + | Milady Burns | ECON | [address] | | | | | [place] | | | | | [address] | | + + + + + Care Team Providers + +------+ + | Care Engraver Seals Name | Role | Phone | + +------+ + | Moe Bella MD | PCP | | + +------+ + Reason for Visit +--------+ + | Reason | Comments | +--------+ + | Other | having sourgery with and since you have done surgery with | | | him before wants you to tell him with side to go on | +--------+ + Evaluate & Treat (Routine) +--------+ + + + + + | Status | Reason | Specialty | Diagnoses / | Referred By | Referred To | | | | | Procedures | Contact | Contact | +--------+ + + + + + | Closed | Specialty | Otolaryngolog | Diagnoses | Chauncey Morelos | Harry Lechuga | | | Services | y | Cervical | MD [address] | MD [place] [address] | | | Required | | spondylosis | [address] | [address] | | | | | with | [facility], | [place] [address] | | | | | radiculopath | [place] [address] | [place], | | | | | y | Phone: | [place] [address] | | | | | Degenerative | [phone] | Phone: | | | | | disc | Fax: | [phone] | | | | | disease, | [phone] | Fax: | | | | | cervical | | [phone] | | | | | Foraminal | | | | | | | stenosis of | | | | | | | cervical | | | | | | | region Left | | | | | | | arm | | | | | | | weakness | | | | | | | Morbid | | | | | | | obesity, | | | | | | | unspecified | | | | | | | obesity type | | | | | | | ([facility]) | | | | | | | Sleep apnea, | | | | | | | obstructive | | | +--------+ + + + + + Encounter Details +--------+---------+ + + + | Date | Type | Department | Care Team | Description | +--------+---------+ + + + | 05/01/ | Office | [facility] | Chauncey Morelos MD | Thyroid cancer (HCC) | | 2016 | Visit | OTOLARYNGOLOGY [address] | [address] | (Primary Dx) | | | | [address] | [place] [address] | | | | | [place] | [phone] | | | | | [address] | | | | | | [phone] | Harry Lechuga MD | | | | | | [address] [place] | | | | | | [address] [place] | | | | | | [address] | | | | | | | | +--------+---------+ + + + [...] + + + | Blood Pressure | - | - | | + + + + + | Pulse | 70 | 05/01/2016 2:51 PM | | | | | PDT | | + + + + + | Temperature | - | - | | + + + + + | Respiratory Rate | 16 | 05/01/2016 2:51 PM | | | | | PDT | | + + + + + | Oxygen Saturation | 94% | 05/01/2016 2:51 PM | | | | | PDT | | + + + + + | Inhaled Oxygen | - | - | | | Concentration | | | | + + + + + | Weight | 188.7 kg (416 lb) | 05/01/2016 2:51 PM | | | | | PDT | | + + + + + | Height | 175.3 cm (5' 9") | 05/01/2016 2:51 PM | | | | | PDT | | + + + + + | Body Mass Index | 61.43 | 05/01/2016 2:51 PM | | | | | PDT | | + + + + + documented in this encounter Progress Notes Harry Lechuga MD - 05/01/2016 3:06 PM PDTPt had a total thyroidectomy 5 years for papilla ry thyroid carcinoma. He has had no further problems in the thyroid area. He is to have neck surgery and Dr morelos wants to be sure he has normal working vocal cord. He has not noted any trouble with his voice. Exam; Ears clear. Nose no mass. Left side sprayed with tyree-synephri ne and xylocaine. Special procedure; scope placed through left nasal passage. No mass in pas amanda or nasopharynx. Posterior and lateral victoria smooth. Base of tongue and epiglotus smooth . Vocal cords smooth and moving normal bilateral. Imp papillary thyroid cancer-stable. Advis e that surgery to neck from either side of neck should have equal risk. documented in this encounter Plan of Treatment + + +--------+ + + | Name | Type | Priori | Associated Diagnoses | Order Schedule | | | | ty | | | + + +--------+ + + | * [facility] | Outpatient | Routin | Cervical | Ordered: 04/04/2016 | | Otolaryngology - AMB | Referral | e | spondylosis with | | | Referral | | | radiculopathy | | | | | | Degenerative disc | | | | | | disease, cervical | | | | | | Foraminal stenosis | | | | | | of cervical region | | | | | | Left arm weakness | | | | | | Morbid obesity, | | | | | | unspecified obesity | | | | | | type ([facility]) Sleep | | | | | | apnea, obstructive | | + + +--------+ + + documented as of this encounter Visit Diagnoses + + | Diagnosis | + + | Thyroid cancer (HCC) - Primary Malignant neoplasm of thyroid gland | + + documented in this encounter
--- OUTSIDE RECORDS SUMMARY | ~2020-04-13 | XMS | Encounter Summary ---
Demographics + + + | Address | [address] | | | [place] [address] | + + + | Home Phone | | + + + | Preferred Language | Unknown | + + + | Marital Status | | + + + | Yarsanism Affiliation | 1013 | + + + | Race | Unknown | + + + | Ethnic Group | Unknown | + + + Author + + + | Author | [facility] | | | and [place] | + + + | Organization | [facility] | | | and [place] | + + + | Address | Unknown | + + + | Phone | Unavailable | + + + Support + + + + + | Name | Relationship | Address | Phone | + + + + + | Milady Burns | ECON | [address] | | | | | [place] | | | | | [address] | | + + + + + Care Team Providers + +------+ + | Care Gore Seamer Name | Role | Phone | + +------+ + | Moe Bella MD | PCP | | + +------+ + Encounter Details +--------+ + + + + | Date | Type | Department | Care Team | Description | +--------+ + + + + | 07/11/ | Hospital | [facility] | Jose Mirza | Cervical spondylosis | | 2016 | Encounter | MED CTR XRAY [address] | [address] | with radiculopathy; | | | | [place] | [address] | S/P cervical spinal | | | | [place] [address] | [place] [address] | fusion | | | | [phone] | [phone] | | | | | | | [...] | 0 | 07/19/20 | | | [address] | | | | 12 | [...] | | | 12 | | | [id number] UNITS capsule | | | | | [...] + + + +---------+ + + | lactulose 10 g/15 | Take 30 mLs by mouth | 240 mL | 0 | 06/02/20 | | | mL solution | Daily as needed. | | | 16 | 7 | + + + +---------+ + + [...] + + + +---------+ + + | oxyCODONE 10 MG | Take 0.5-2 tablets | 120 | 0 | 07/04/20 | | | TABSIndications: S/P | by mouth every 3 | tablet | | 16 | 7 | | cervical spinal | hours as needed. | | | | | | fusion | | | | | | + [...] XR CERVICAL SPINE 2 | Routin | 07/11/2016 | Cervical | Results for this | | [place] 3 VIEWS | e | 1:33 PM | spondylosis with | procedure are in the | | | | PDT | radiculopathy S/P | results section. | | | | | cervical spinal | | | | | | fusion | | + +--------+ + + [...] + | [facility] | [address] | [place] | [phone] | | [facility] | | [address] | | | - IMAGING | | | | + + + + + documented in this encounter Visit Diagnoses + + | Diagnosis | + + | Cervical spondylosis with radiculopathy Cervical spondylosis with myelopathy | + + | S/P cervical spinal fusion Arthrodesis status | + + documented in this encounter"
--- OUTSIDE RECORDS SUMMARY | ~2020-04-13 | XMS | Encounter Summary ---
Demographics + + + | Address | [address] | | | [place] [address] | + + + | Home Phone | | + + + | Preferred Language | Unknown | + + + | Marital Status | | + + + | Nondenominational Affiliation | CHR | + + + | Race | White | + + + | Ethnic Group | Not or | + + + Author + + + | Author | [facility] | + + + | Organization | [facility] | + + + | Address | Unknown | + + + | Phone | Unavailable | + + + Support + + + + + | Name | Relationship | Address | Phone | + + + + + | Tico Burns | ECON | [address] | | | | | [place], [place] | | | | | [address] | | + + + + + Care Team Providers + +------+ + | Care Field Services Analyst Name | Role | Phone | [...] Description | +--------+---------+ + + + | 01/08/ | Surgery | 6A Intra Op [id number] | Jesus Perez, | ATTEMPTED | | 2012 | | MIRELLA Wilkins | [address] | LAPAROSCOPIC, OPEN | | | | [facility] | [facility] | EXPLORATORY | | | | Hospital Admitting | [place], [place] | LAPAROTOMY, LYSIS OF | | | | Desk Located on the | [id number] | ADHESIONS, SLEEVE | | | | 9th floor | [phone] | GASTRECTOMY | | | | [place], [place] | | | | | | [address] | | | +--------+---------+ + + + [...] + + + | Blood Pressure | 152/72 | 01/11/2013 6:50 AM | | | | | PST | | + + + + + | Pulse | 91 | 01/11/2013 6:50 AM | | | | | PST | | + + + + + | Temperature | 37 C (98.6 F) | 01/11/2013 6:50 AM | | | | | PST | | + + + + + | Respiratory Rate | 13 | 01/11/2013 6:50 AM | | | | | PST | | + + + + + | Oxygen Saturation | 95% | 01/11/2013 6:50 AM | | | | | PST | | + + + + + | Inhaled Oxygen | - | - | | | Concentration | | | | + + + + + | Weight | 240.5 kg (530 lb 3.3 | 01/08/2013 10:18 AM | | | | oz) | PST | | + + + + + | Height | 177.8 cm (5' 10") | 01/08/2013 10:18 AM | | | | | PST | | + + + + + | Body Mass Index | 76.08 | 01/08/2013 10:18 AM | | | | | PST | | + + + + + documented in this encounter Discharge Summaries Jorge Caban MD - 01/11/2013 8:39 AM PST INPATIENT DISCHARGE SUMMARY Author: JORGE CABAN MD Attending Physician: Jesus Perez MD PCP: Moe Bella MD Admission Date: 01/08/2013 Discharge Date: 11 Jan 2013 Diagnoses Principal Final Diagnosis: 1. Supra morbid obesity, BMI = 76 Additional Diagnoses: type 2 diabetes, panniculitis, depression, hypertension Procedures 1. Attempted laparoscopic procedure, exploratory laparotomy, lysis of adhesions, open sleev e gastrectomy 2. Urology assisted chau catheter placement Procedure Open sleeve gastrectomy Brief Hospital Course 1. You were admitted and underwent an open sleeve gastrectomy, without complications. Robert e drain was placed. You had a special chau catheter placed by urology. Clamping of the tu jim occurred on POD 2, and plans for removal were made for Sunday. Your epidural cathete r was intact, and the acute pain service helped with transition to oral medications. Your i ncision was intact, TI drain was removed prior to discharge. Your electrolytes were replace d as needed. Medications: Current Discharge Medication List START taking these medications Details acetaminophen 650 mg/20.3 mL Oral Suspension Take 20.3 mL by mouth every six hours as neede d for moderate pain. Qty: 300 mL, Refills: 1 Calcium Citrate-Vitamin D3 (CITRACAL + D PETITES) 200 mg calcium -250 unit Oral tablet Take 2 Tabs by mouth two times daily. Start 2 weeks after surgery. Indications: Hypocalcemia Pr evention Qty: 100 Tab, Refills: 12 cyanocobalamin (VITAMIN B-12) 500 mcg Oral tablet Take 1 Tab by mouth once daily. Indicatio ns: Prevention of Vitamin B12 Deficiency Qty: 100 Tab, Refills: 12 docusate sodium (COLACE) 100 mg Oral capsule Take 1 Cap by mouth two times daily. Qty: 30 Cap, Refills: 1 famotidine 20 mg Oral tablet Take 1 Tab by mouth two times daily. Indications: Prevention o f Stress Ulcer Qty: 60 Tab, Refills: 2 insulin lispro 100 unit/mL Subcutaneous Solution Use 2 units for 141-200, 4 units for 201-2 50, 6 units for 251-300, nj your doctor if > Indications: TYPE 2 DIABETES MELLITUS Qty: 10 mL, Refills: 1 magnesium oxide 400 mg Oral tablet Take 1 Tab by mouth two times daily. Qty: 6 Tab, Refills: 0 oxyCODONE, immediate release, 10 mg Oral tablet Take 0.5-2 Tabs by mouth every three hours as needed. Indications: Pain Qty: 145 Tab, Refills: 0 pediatric multivitamin chewable (CHILDRENS CHEWABLE VITAMINS) Oral tablet, chewable Take 1 Tab by mouth two times daily. Qty: 100 Tab, Refills: 12 prochlorperazine 10 mg Oral tablet Take 1 Tab by mouth three times daily as needed for naus ea/vomiting. Max dose: 40 mg/day Indications: NAUSEA AND VOMITING Qty: 20 Tab, Refills: 1 ursodiol 300 mg Oral capsule Take 1 Cap by mouth two times daily. Start Act[place] [address] surgery. Indications: Cholelithiasis Prevention Qty: 60 Cap, Refills: 5 CONTINUE these medications which have CHANGED or have new prescriptions Details insulin glargine 100 unit/mL Subcutaneous Solution Inject 35 Units under the skin (SUBC) on ce daily at bedtime. Indications: TYPE 2 DIABETES MELLITUS Qty: 10 mL, Refills: 1 CONTINUE these medications which have NOT CHANGED Details Aspirin 81 mg Oral Tablet Take 81 mg by mouth once daily. cloNIDine 0.1 mg Oral Tablet Take 0.1 mg by mouth two times daily. FLUoxetine (PROZAC) 20 mg Oral Capsule Take 20 mg by mouth once daily. levothyroxine (SYNTHROID) 175 mcg Oral Tablet Take 175 mcg by mouth once daily. LOSARTAN/HYDROCHLOROTHIAZIDE (HYZAAR ORAL) Take by mouth. metFORMIN SR (GLUCOPHAGE XR) 500 mg Oral Tablet Extended Release 24 hr Take 500 mg by mouth once daily. Administer with evening meal. metoprolol tartrate 100 mg Oral Tablet Take 100 mg by mouth two times daily. VITAMIN A/VITAMIN D2 (VITAMIN A & ERGOCALCIFEROL,D2, ORAL) Take by mouth. STOP taking these medications insulin glulisine (APIDRA) 100 unit/mL Subcutaneous Solution Comments: Reason for Stopping: phentermine 37.5 mg Oral tablet,disintegrating Comments: Reason for Stopping: Bariatric diet Try to take in 48-64 fluid ounces daily. You will work up to the protein powder 60 gms shahida y, do not force the powders. You will be on liquids for 2-3 weeks until your next appointmen t. Do not advance your diet until you are seen in the clinic. Activity No heavy lifting > 10 lbs for 4 weeks; No driving for 10 days, while on narcotics; No tub bath, hot tubs or swimming for 6 weeks; You may shower. Follow abdominal precautions Wound Care Keep incisions clean and dry. You may shower. Avoid tub baths for 3 weeks, also avoid jacuz zi and swimming for that time period. Medication Refill Instructions If you need a refill on any narcotic pain medications, please call the clinic ([phone] ) by 2 pm on for any weekend needs. It will take 3 business days to mail any prescr iptions to you. The resident will not be able to fill narcotic scripts after 5 pm daily and on the weekends. Please plan ahead and keep track of how many pain pills you have left. When To Call The Doctor - If your incision becomes red, swollen, or has any bloody or pus-like drainage. - If you have a fever of 101.5 F or greater or if you have chills. - If you have increased pain, unrelieved by your pain medications. - If you have persistent nausea, vomiting, diarrhea, or no bowel movement for more than 2 d ays after discharge from the hospital. - If you develop any unusual signs or symptoms, including chest pain, shortness of breath, pulmonary embolism, leg swelling, pain or redness that is abnormal for you, and other sympto ms of concern. - If you have any questions or concerns. How to Call the Doctor - You may contact your doctor Sunday through Sunday during the day time hours by calling [facility] surgery office at [phone] - After hours, weekends and holidays, you may call the hospital forklift operator at [phone] an d have the residential construction instructor Donner Team for general surgery paged. Constipation Prevention It is very important to avoid constipation and straining while trying to have a bowel movem ent. It is common to experience constipation after your operation and when taking narcotics. There are medications like stool softeners (colace a.k.a. Docusate Sodium) or laxatives (mi ralax, senokot+stool softener, Dulcolax suppository). Please work towards having a bowel mov ement every 1-2 days. A hot drink each morning will also help the sphincter to work in pushi ng the stool forward. It is important to stay hydrated, about 45-60 fluid ounces daily, and this will help your bowel function. Pain Instructions It is expected that you will experience pain after your operation, and it is important to h ave you manage your pain to increase your activity, sleep and overall healing. You are being sent home with a prescription for pain relief. This should be taken every 3-6 hours per you r instructions. Some medications, like lortab or hydrocodone have Tylenol in it. Make sure y ou do not take more than 4,000 mg of tylenol or acetaminophen in 24 hours. Vitals on discharge: Ht 177.8 cm (5' 10")( < 3 %ile), Wt 240.5 kg (530 lbs 3.3 oz)( < 3 %il e), BP 152/72, Pulse 91, Temperature 37 C (98.6 F), RR 13, SpO2 95%, BMI 76.08 kg/(m^2). Outstanding labs/studies: None Discharging Physician: JORGE CABAN MD Attending Physician: Jesus Perez MD documented in this en counter Discharge Instructions Instructions Domi Hill - 01/11/2013Patient Education Materials: abdominal precautions and home care after bariatric surgery handouts given. The doctor's office will call you to lars tolentino up in clinic for post-op appt Discharge Nurse: Domi Hill Date: 01/11/2013 Discharge Time: 10:54 AM documented in this encounter Medications at Time [...] documented as of this encounter Progress Notes Jorge Caban MD - 01/11/2013 8:17 AM PST INPATIENT PROGRESS NOTE Hospital Day:3 Author; JORGE CABAN MD Attending Physician: Jesus Perez MD Interval Hx: No acute events. NO pain. Accepting bariatric full liquid diet. Low Mg. Normal CK. Good U/O. Drain: 10ml. #D1 open sleeve gastrectomy #Superobese patient #DM, Hyperlipidemia, HTN, Nephrolithiasis. Physical Exam: Last Vitals: BP 152/72 | Pulse 91 | Temp 37 C (98.6 F) | RR 13 | Ht 1.778 m (5' 10") | Wt 240.5 kg (530 lb 3.3 oz) | SpO2 95% | BMI 76.08 kg/(m^2) O2 Delivery Device: None (room air) (01/11/13 0650) 24 Hour Vital Min/Max: Systolic (24hrs), Av mmHg, Min:120 mmHg, Max:169 mmHgDiastolic (24hrs), Av mmHg, M in:43 mmHg, Max:98 mmHgPulse Av.4 Min: 81 Max: 91 Temp Av.9 C (98.5 F) Min: 36.7 C (98.1 F) Max: 37.1 C (98.8 F) Resp Av.4 Min: 13 Max: 18 SpO2 Av.5 % Min: 90 % Max: 97 % Intake/Output Summary (Last 24 hours) at 01/11/13 08 Last data filed at 01/11/13 0500 Gross per 24 hour Intake 195 ml Output 2960 ml Net -2765 ml Physical Exam: Difficult exam secondary to obesity. General: AOX3, NAD Respiratory: CTA-B Cardiovascular: RRR, no MGR Abdomen: Soft, nontender, nondistended. Wound clear and dry. Skin: wwp, non-diaphoretic Extremities: minimal edema Chemistries: Last 72 Hours (or 3 results): Recent Labs Basename 01/11/1332601/10/1341101/09/13 0406 NA 141 141 142 K 3.5 4.0 4.0 CL 102 105 106 BICARB 27 28 27 BUN 7 8 11 CR 0.71 0.71 0.77 CA 8.6 8.6 8.5* MG 1.4* 1.8 1.7* PO4 3.0 2.7 3.8 CBC with diff last 72 hours (or 3 results) Recent Labs Basename 01/11/1332601/10/1341101/09/13 0406 WBC 6.6 7.2 8.5 HB 10.6* 10.9* 11.4* HCT 32.0* 33.5* 34.9* PLT 241 240 253 NEUTROPERC -- -- -- BANDPCT -- -- -- LYMPHPERC -- -- -- MONOPERC -- -- -- BASOPERC -- -- -- EOSPERC -- -- -- Assessment and Plan: Superobese patient s/p open sleeve gastrectomy progressing well. 1. Increase Mg repletion. 2. Remove drain. 3. Home today JORGE CABAN MD Tyson Luis MD - 01/10/2013 2:26 PM PSTACUTE PAIN SERVICE PROGRESS NOTE Pain fairly well controlled on oral medications. Epidural catheter discontinued, tip intact . APS will sign off, please call us back if there are any pain related concerns for us to add researl Dong, MD, PGY1 Anesthesia Rubber Cutter And Shape Carver Pager [phone] Florencia Ivy MD - 01/10/2013 7:49 AM PSTSURGERY INPATIENT PROGRESS NOTE Hospital Day:2 Author; FLORENCIA KATHLEEN MD, MIS/Bariatric Fellow, Pager [phone] Attending Physician: Jesus Perez MD Surgical Issues: POD#2 s/p converted to open sleeve gastrectomy BP 152/74 | Pulse 87 | Temp 36.9 C (98.4 F) | RR 17 | Ht 1.778 m (5' 10") | Wt 240.5 kg (530 lb 3.3 oz) | SpO2 96% | BMI 76.08 kg/(m^2) - S: Luan PO, no overnight events, ambulated, pain controlled. - O: AVSS, UOP low last 8hrs, but otherwise WNL. S/NT/ND, inc CDI. TI serosang w/ min outpu t. Cr WNL, CPK WNL. - A/P: Drop IVF from 150 -> 100mL/hr. Epidural prob out by APS, then start PO liquid analge marjorie. Clamp & unclamp Chau q3hrs for bladder training. 1mg Bumex now. Chau possibly out lat er. Dispo soon. Stephanie Lloyd NP - 01/10/2013 7:15 AM PST INPATIENT ADULT PAIN SERVICE NEURAXIAL BLOCK PROGRESS NOTE 01/10/2013 Author: Stephanie Horan XEROX MACHINE OPERATOR POD# 2. Status post: 1. Attempted laparoscopic procedure 2. Ex-Lap, FLOYD 3. Open sleeve gastrectomy Previously obtained Past Medical History Diagnosis Date BP (high blood pressure) Numbness 2006 hands and feet High cholesterol Leg sore Depressed 2010 Diabetes mellitus 2005 Thyroid disease 2010 Cancer 2010 Interval events since last APS visit: Worked with PT yesterday, transitioning to veronika-full s today Mr. Burns describes his pain at the level of: abdominal incision Pain Score 0/10 (at rest), Up to a 4/10 (cough, deep breath, movement). Mr. Burns is s atisfied with current level of pain. History of chronic or preoperative pain: no Prior to hospitalization: No significant chronic use of opioids at home ROS/Side Effects: Nausea/Vomiting: none Pruritus: none Numbness/Weakness: none Low BP: none Dizziness: none Sedation: none Activity level: Out of bed Diet: Bariatric Medications: Scheduled Medications Medication Dose Route Frequency Last Rate cloNIDine 0.1 mg/mL suspension 100 mcg 100 mcg Oral BID enoxaparin (aka LOVENOX) injection 40 mg 40 mg Subcutaneous QNOON famotidine in NS (aka PEPCID) IV 20 mg 20 mg Intravenous Q12H 20 mg (01/09/132133) FLUoxetine (aka PROZAC) liquid 20 mg 20 mg Oral DAILY insulin lispro (aka HUMALOG) injection Subcutaneous Q6H levothyroxine tablet 175 mcg 175 mcg Oral DAILY metoprolol tartrate (aka LOPRESSOR) tablet 50 mg 50 mg Oral BID PRN Medications Medication Dose Route Frequency Last Rate dextrose 10 % IV infusion 1-100 mL/hr Intravenous PRN dextrose IV 25 mL 25 mL Intravenous PRN glucagon (aka GLUCAGEN) injection 1 mg 1 mg Intramuscular PRN glucose chewable tablet 16 g 16 g Oral Q15MIN PRN hydrALAZINE (aka APRESOLINE) injection 5-10 mg 5-10 mg Intravenous Q4H PRN labetalol (aka TRANDATE) IV injection 5-10 mg 5-10 mg Intravenous Q4H PRN nalbuphine (aka NUBAIN) injection 2.5 mg 2.5 mg Intravenous Q15MIN PRN naloxone (aka NARCAN) injection 400 mcg 400 mcg Intravenous PRN ondansetron (aka ZOFRAN) injection 4 mg 4 mg Intravenous Q12H PRN 4 mg (01/08/132208) Continuous Medications Medication Dose Route Frequency Last Rate bupivacaine 0.05 %-HYDROmorphone 20 mcg/mL epidural infusion Epidural CONTINUOUS 11 m L/hr at 01/10/13 0009 lactated ringers IV 150 mL/hr Intravenous CONTINUOUS 150 mL/hr (01/09/132133) Type: Epidural Rate: 11 mL/hour Anticoagulants: Yes - Enoxaparin 40mg subcutaneous daily, last dose given 1200 01/09/13 Lab Results Component Value Date PLT 240 01/10/2013 Opioids:Nubain, HM in epidural Other analgesics:None Other psychoactive medications: None Physical Exam: Last Vitals:BP 152/74 | Pulse 87 | Temp 36.9 C (98.4 F) | RR 17 | Ht 1.778 m (5' 10") | Wt 240.5 kg (530 lb 3.3 oz) | SpO2 96% | BMI 76.08 kg/(m^2) 24 hour Vitals min/max : Systolic (24hrs), Av mmHg, Min:136 mmHg, Max:152 mmHg Diastolic (24hrs), Av mmHg, Min:63 mmHg, Max:74 mmHg Pulse Min: 72 Max: 90 Temp Min: 36.1 C (97 F) Max: 36.9 C (98.4 F) Resp Min: 17 Max: 20 SpO2 Min: 89 % Max: 100 % General Appearance and Neurological Examination: Mental Status: Awake and alert Orientation: Oriented Sensory Level: deferred Motor: bilateral lower extremity(ies) -- No block: full flexion and extension of hip, knee and foot Neuraxial Catheter: Location: T6-8;depth at skin: obscured by dressing. (placed at 20 cm, NICOLE 13 cm) Dressing: Intact Exit Site: Clean and Non-tender Bleeding: no Chest tube in place:no NG/OG tube in place: no Assessment: Mr. Burns rates his pain relief as excellent. My personal assessment is concordant with this evaluation Diagnosis: 1. Acute postoperative pain 2. Super morbid obesity My treatment plan is: Transition to oral pain medications Discontinue neuraxial infusion Begin oxycodone 5-20 mg elixir every 3 hours as needed Begin APAP 650 mg five times daily elixir. Hold lovenox until 4 hours after epidural is out. Epidural: at thoracic level; If Chau is in place, it may be removed if deemed appropriate by primary care team I did discuss our findings and recommendations with primary care team provider Mary Grace bey Surgery. . For today's evaluation, I have included my personal review of Mr. Burns's history and ph ysical examination. I also used the following components in my medical decision making: Laboratory studies reviewed. Review and summary of old medical records (source: [facility]), as summarized in the body of the note. Stephanie Horan NP Adult Pain Service Pager [phone] Team Pager [phone] BILLING INFORMATION [facility] DEPARTMENT: [phone] Place of Service:- Inpatient Date of Service: 01/10/2013 CSN: [id number] Suggested Modifier: None Suggested CPT: 19478 - Daily mgmt epidural/subarachnoid drug administration Prolonged service: n/a Florencia Ivy MD - 01/09/2013 12:53 PM PSTSURGERY INPATIENT PROGRESS NOTE Hospital Day:1 Author; FLORENCIA KATHLEEN MD, MIS/Bariatric Fellow, Pager [phone] Attending Physician: Jesus Perez MD Surgical Issues: POD #1 s/p converted to open sleeve gastrectomy BP 141/63 | Pulse 72 | Temp 36.5 C (97.7 F) | RR 20 | Ht 1.778 m (5' 10") | Wt 240.5 kg (530 lb 3.3 oz) | SpO2 95% | BMI 76.08 kg/(m^2) - S: No major c/o. On floor doing well, Chau, epidural, NPO, BP meds. - O: AVSS except HTN which has been resolving. A/O x3, NAD. S/NT/ND, TI serousang w/ min ou tput, inc CDI. Cr <1, CPK WNL. UOP borderline low. IVF @150. - A/P: Give 1L bolus for low UOP. Adv to veronika clears, restart home meds, control BP. PT/OT, IS, CPAP, epidural, cont Chau for difficult urethral catheterization (JESUS). Will observe f or another few days. Epidural per APS. Kalina Adame AC XEROX MACHINE OPERATOR - 01/09/2013 11:29 AM PST Inpatient Progress Note Hospital Day #1 Author: CRISTIN HOBSON Attending: Jesus Perez MD ID: Gerard Burns is a 47 year old male Interval Hx: moderate pain, no nausea, no flatus. Continues on cefoxitin, ready for liquid s. BMI 76. Needs PT and OT Physical Examination Last Vitals: BP 141/63 | Pulse 72 | Temp 36.5 C (97.7 F) | RR 20 | Ht 1.778 m (5' 10") | Wt 240.5 kg (530 lb 3.3 oz) | SpO2 95% | BMI 76.08 kg/(m^2) 24 Hour Vital Min/Max: Systolic (24hrs), Av mmHg, Min:132 mmHg, Max:179 mmHgDiastolic (24hrs), Av mmHg, M in:63 mmHg, Max:99 mmHgPulse Av.1 Min: 60 Max: 85 Temp Av.6 C (97.8 F) Min: 36.4 C (97.5 F) Max: 36.7 C (98.1 F) Resp Av.9 Min: 11 Max: 21 SpO2 Av.9 % Min: 91 % Max: 100 % Intake/Output Summary (Last 24 hours) at 01/09/13 07 Last data filed at 01/09/13 0700 Gross per 24 hour Intake 4885 ml Output 975 ml Net 3910 ml General: Awake, alert, and oriented x4, no acute distress HEENT: PERRLA, EOMI Pulm: Bilaterally clear to auscultation; negative wheezes or rales; excellent inspiratory e ffort Cardio: Regular rate and rhythm; negative murmur, rubs, or gallops; S1S2 Abdomen: Soft. Non-tender to palpation in all four quadrants, Normal active bowel sounds, i ncision is intact, TI with serosang MS: Moves all extremities well, Warm and well perfused Derm: -no erythema, edema, ecchymosis Drain: TI drain, Chau with clear madalyn urine Current Inpatient Medications Medication Dose Route Frequency bupivacaine 0.05 %-HYDROmorphone 20 mcg/mL epidural infusion Epidural CONTINUOUS ceFOXitin (aka MEFOXIN) IV (minibag+) 2 g 2 g Intravenous Q6H cloNIDine 0.1 mg/mL suspension 100 mcg 100 mcg Oral BID dextrose 10 % IV infusion 1-100 mL/hr Intravenous PRN dextrose IV 25 mL 25 mL Intravenous PRN enoxaparin (aka LOVENOX) injection 40 mg 40 mg Subcutaneous QNOON famotidine in NS (aka PEPCID) IV 20 mg 20 mg Intravenous Q12H glucagon (aka GLUCAGEN) injection 1 mg 1 mg Intramuscular PRN glucose chewable tablet 16 g 16 g Oral Q15MIN PRN hydrALAZINE (aka APRESOLINE) injection 5-10 mg 5-10 mg Intravenous Q4H PRN insulin lispro (aka HUMALOG) injection Subcutaneous Q6H labetalol (aka TRANDATE) IV injection 5-10 mg 5-10 mg Intravenous Q4H PRN lactated ringers IV 150 mL/hr Intravenous CONTINUOUS levothyroxine injection 87.6 mcg 87.6 mcg Intravenous DAILY magnesium sulfate IV 2 g 2 g Intravenous ONCE metoclopramide HCl (aka REGLAN) injection 5-10 mg 5-10 mg Intravenous Q4H PRN metoprolol (aka LOPRESSOR) injection 5 mg 5 mg Intravenous Q6H PRN nalbuphine (aka NUBAIN) injection 2.5 mg 2.5 mg Intravenous Q15MIN PRN naloxone (aka NARCAN) injection 400 mcg 400 mcg Intravenous PRN ondansetron (aka ZOFRAN) injection 4 mg 4 mg Intravenous Q12H PRN Chemistries: Last 72 Hours (or 3 results): Recent Labs Basename 01/09/13 0406 01/09/13 0402 01/08/13 2316 01/08/13 1836 NA 142 -- -- 141 K 4.0 -- -- 3.7 CL 106 -- -- 105 BICARB 27 -- -- 26 BUN 11 -- -- 12 CR 0.77 -- -- 0.92 GLU 173* 165* 188* -- CA 8.5* -- -- 8.7 MG 1.7* -- -- 1.7* PO4 3.8 -- -- -- CBC with diff last 72 hours (or 3 results) Recent Labs Basename 01/09/13 0406 WBC 8.5 HB 11.4* HCT 34.9* PLT 253 NEUTROPERC -- BANDPCT -- LYMPHPERC -- MONOPERC -- BASOPERC -- EOSPERC -- Assessment: Gerard Burns is a 47 year old male POD 1, lap sleeve gastrectomy, epidu ral in place, supra morbid obesity. Special chau in place per urology, must stay for 2 day s Plan: NEURO - epidural management by APs CV - hypertension, restart home meds PULM - oxygen, obesity hypoventilation FEN - Low mag, replace GI - veronika clears RENAL - Chau to stay per urology, UO 605, low output, fluid bolus, creat 0.77 ENDO - type 2 diabetes HEME/ID - Anemia of acute blood loss , stable PROPHY - Prophylaxis: Feeding: regular Activity: Ambulate Sedation/Sleep: na VTE PPY: SCDs, Lovenox Head of bed: >30 degrees Ulcer PPY: famotidine Glycemic Control: euglycemic Infection PPY: IS, all catheter & line dates reviewed; chau needs to stay in DISPO - requires acute care CRISTIN HOBSON [facility] [address] [place] [address] This assessment and plan was formulated both independently and in conjunction with the Surg ical team as well as the attending provider above. Stephanie Lloyd NP - 01/09/2013 8:04 AM PST INPATIENT ADULT PAIN SERVICE NEURAXIAL BLOCK PROGRESS NOTE 01/09/2013 Author: STEPHANIE HORAN NP POD# 1. Status post: 1. Attempted laparoscopic procedure 2. Ex-Lap, FLOYD 3. Open sleeve gastrectomy Previously Obtained: Past Medical History Diagnosis Date BP (high blood pressure) Numbness 2006 hands and feet High cholesterol Leg sore Depressed 2010 Diabetes mellitus 2005 Thyroid disease 2010 Cancer 2010 Mr. Burns describes his pain at the level of: abdomen Pain Score 2/10 (at rest), " I haven't moved yet" /10 (cough, deep breath, movement). Mr. Bursn is satisfied with current level of pain. History of chronic or preoperative pain: no Prior to hospitalization: No significant chronic use of opioids at home ROS/Side Effects: Nausea/Vomiting: none Pruritus: mild Numbness/Weakness: none Low BP: none Dizziness: none Sedation: none Activity level: In bed all the time Diet: NPO/sips/ice chips Medications: Scheduled Medications Medication Dose Route Frequency Last Rate ceFOXitin (aka MEFOXIN) IV (minibag+) 2 g 2 g Intravenous Q6H cloNIDine 0.1 mg/mL suspension 100 mcg 100 mcg Oral BID enoxaparin (aka LOVENOX) injection 40 mg 40 mg Subcutaneous QNOON famotidine in NS (aka PEPCID) IV 20 mg 20 mg Intravenous Q12H 20 mg (01/08/132208) insulin lispro (aka HUMALOG) injection Subcutaneous Q6H levothyroxine injection 87.6 mcg 87.6 mcg Intravenous DAILY PRN Medications Medication Dose Route Frequency Last Rate dextrose 10 % IV infusion 1-100 mL/hr Intravenous PRN dextrose IV 25 mL 25 mL Intravenous PRN glucagon (aka GLUCAGEN) injection 1 mg 1 mg Intramuscular PRN glucose chewable tablet 16 g 16 g Oral Q15MIN PRN hydrALAZINE (aka APRESOLINE) injection 5-10 mg 5-10 mg Intravenous Q4H PRN labetalol (aka TRANDATE) IV injection 5-10 mg 5-10 mg Intravenous Q4H PRN metoclopramide HCl (aka REGLAN) injection 5-10 mg 5-10 mg Intravenous Q4H PRN metoprolol (aka LOPRESSOR) injection 5 mg 5 mg Intravenous Q6H PRN nalbuphine (aka NUBAIN) injection 2.5 mg 2.5 mg Intravenous Q15MIN PRN naloxone (aka NARCAN) injection 400 mcg 400 mcg Intravenous PRN ondansetron (aka ZOFRAN) injection 4 mg 4 mg Intravenous Q12H PRN 4 mg (01/08/132208) Continuous Medications Medication Dose Route Frequency Last Rate bupivacaine 0.05 %-HYDROmorphone 20 mcg/mL epidural infusion Epidural CONTINUOUS 14 m L/hr at 01/08/134 lactated ringers IV 150 mL/hr Intravenous CONTINUOUS 150 mL/hr (01/09/1399) Type: Epidural Rate: 14 mL/hour Anticoagulants: No Lab Results Component Value Date PLT 253 01/09/2013 Opioids:None Other analgesics:None Other psychoactive medications: None Physical Exam: Last Vitals:BP 136/73 | Pulse 73 | Temp 36.5 C (97.7 F) | RR 17 | Ht 1.778 m (5' 10") | Wt 240.5 kg (530 lb 3.3 oz) | SpO2 100% | BMI 76.08 kg/(m^2) 24 hour Vitals min/max : Systolic (24hrs), Av mmHg, Min:132 mmHg, Max:179 mmHg Diastolic (24hrs), Av mmHg, Min:68 mmHg, Max:99 mmHg Pulse Min: 60 Max: 85 Temp Min: 36.4 C (97.5 F) Max: 36.9 C (98.4 F) Resp Min: 11 Max: 21 SpO2 Min: 91 % Max: 100 % General Appearance and Neurological Examination: Mental Status: Awake and alert Orientation: Oriented Sensory Level: deferred Motor: bilateral lower extremity(ies) -- No block: full flexion and extension of hip, knee and foot Neuraxial Catheter: Location: T6-8;depth at skin: obscured by dressing. (placed at 20 cm, NICOLE 13 cm) Dressing: Intact Exit Site: Clean and Non-tender Bleeding: no Chest tube in place:no NG/OG tube in place: no Assessment: Mr. Burns rates his pain relief as good. My personal assessment is concordant with this evaluation Diagnosis: 1. Acute postoperative pain 2. Super morbid obesity My treatment plan is: Continue neuraxial infusion, titrate infusion as needed Transition to oral pain medications tomorrow. Will begin oxycodone elixir tomorrow. Epidural: at thoracic level; If Chau is in place, it may be removed if deemed appropriate by primary care team I did discuss our findings and recommendations with primary care team provider Malachi Rogers. For today's evaluation, I have included my personal review of Mr. Burns's history and ph ysical examination. I also used the following components in my medical decision making: Laboratory studies reviewed. STEPHANIE HORAN NP BILLING INFORMATION [facility] DEPARTMENT: [phone] Place of Service:- Inpatient Date of Service: 01/09/2013 CSN: [id number] Suggested Modifier: None Suggested CPT: 63368 - Daily mgmt epidural/subarachnoid drug administration Prolonged service: n/a Hedy Villa - 2012 6:46 AM PSTMedical student progress note Overnight events/S: Mr. Burns is feeling well this morning. He did not get a lot of sle ep due to noise on the floor, but his pain (2/10, achy pain around incision site) is well co ntrolled and he is only using his [employer] pump about once an hour. He has had a little heartbur n and so has the head of his bed up. He had a little nausea, but he received 4mg ondansetro n last night, which helped. No flatus yet. Otherwise he has no complaints. O: BP 142/82 | Pulse 70 | Temp 36.6 C (97.9 F) | RR 16 | Ht 1.778 m (5' 10") | Wt 240.5 kg (530 lb 3.3 oz) | SpO2 95% | BMI 76.08 kg/(m^2) I/O: 4485/975 IV 4485 UOP 605 Delvin drain 70 EBL 100 Gen: Alert and interactive, NAD CV: Distant heart sounds, RRR Resp: Good breath sounds anterior lung garvey, no wheezes or crackles Abd: Obese abdomen, non-distended, midline surgical wound clean and dry, appropriately tend er around surgical site only, Delvin drain with sanguinous fluid. Ext: Warm and well-perfused, mild edema (unchanged from pre-op). A/P: Mr. Burns is a 47 year old man POD 1 from open sleeve gastrectomy, progressing as e xpected. 1. Diet: Start on small sips of clears today, pills crushed. 2. Pain: currently well-controlled. Transition to oral pain medications (crushed) when luan erated PO. 3. GI: no flatus yet. Monitor for nausea. 4. Fluid status. Urine output is a little low. 1L bolus over 2 hours and recheck urine out put. Urology to manage Chau catheter. 5. Prophylaxis. IS at bedside, SCD's in place, start enoxaparin today. PT to see today, l egs to side of bed, possible out of bed to chair. Dispo: discharge to home when pain controlled on oral meds and tolerating PO. Hedy Wood [id number] signed by CRISTIN Hobson at 01/10/2013 12:06 PM Alfonso Ng MD - 01/08/2013 9:57 PM PST SURGERY POST OP CHECK: Green 01/08/2013 IDENTIFICATION: Gerard Burns is a 47y/o male with h/o super morbid obesity who is POD #0 s/p laparo scopic converted open FLOYD and open sleeve gastrectomy. SUBJECTIVE: -Pain well controlled, 2/10 -Denies any PONV -Thirsty, mouth is dry, asking for swabs -Breathing feels at baseline PHYSICAL EXAM: Vitals: Ht 177.8 cm (5' 10")( < 3 %ile), Wt 240.5 kg (530 lbs 3.3 oz)( < 3 %ile), BP 161/79 , Pulse 72, Temperature 36.7 C (98.1 F), RR 16, SpO2 98%, BMI 76.08 kg/(m^2). General: Alert and oriented, NAD Respiratory: unlabored, CTAB CV: RRR, no m/r/g Abdomen: obese, soft, nontender, nondistended. incision clean/dry/intact : chau catheter in place, urine clear, dark Drain: TI drain x1 at RUQ to bulb suction, serosanguinous drainage Extremities: Warm and well perfused, 2+ distal pulses; IV fluids: 150 ml/hr of LR POST OP LABS: Chemistries Recent Labs Basename 01/08/13 1836 01/08/13 1833 NA 141 -- K 3.7 -- CL 105 -- BICARB 26 -- BUN 12 -- CR 0.92 -- GLU 192* 192* CA 8.7 -- MG 1.7* -- PO4 -- -- AST -- -- ALT -- -- AP -- -- TBILI -- -- ALB -- -- CBG's Last CBG's POC Lab Results Component Value Date GLU 192* 01/08/2013 GLU 192* 01/08/2013 GLU 157* 01/08/2013 Lab Results Component Value Date CK 70 01/08/2013 ASSESSMENT AND PLAN: Gerard Burns is a 47y/o male with h/o super morbid obesity who is POD #0 s/p laparo scopic converted open FLOYD and open sleeve gastrectomy. Overall, doing well. CXR without ptx. Some concern for possible rhabdo given body habitus, length of operation, and poor preop hydration status. Current issues include: 1. Pain well controlled. Continue current regimen. 2. Follow UOP closely 3. PRN PONV control 4. CPAP per RT Continue current care. Alfonso Sousa MD Briquette Maker, PGY-1 Pager: [phone] [facility] [address] [id number] ung, MD Yahaira - 01/08/2013 3:37 PM PSTINPATIENT BRIEF OPERATIVE NOTE Procedure Date: 01/08/2013 Attending Physician: Yahaira Doran MD Preoperative Diagnosis: Morbid obesity, difficult Chau catheter placement Postoperative Diagnosis: Same Procedure Performed: Flexible cystoscopy, catheter placement Estimated Blood Loss: None Fluids: None Specimens: None Complications: None Drains: 14 Fr Chau catheter Disposition: OR for sleeve gastrectomy Findings: 1. Two large pannuses, lower completely obscuring penis and scrotum 2. Elevation of lower pannus exposed distal foreskin, but unable to expose glans 3. Normal bladder and urethra, mod prostate enlargement 4. 14 Fr Chau placed over super stiff wire, clear urine efflux Plan: D/C Chau catheter prior to discharge home Will not be able to check PVRs given patient's body habitus If pt voiding spontaneously with adequate UOP post-op, no further urology follow-up needed documented in this enc ounter Plan of Treatment + +---------+--------+ + + | Name | Type | Priori | Associated Diagnoses | Order Schedule | | | | ty | | | + +---------+--------+ + + | X-RAY PORTABLE CHEST | Imaging | Urgent | | One Time for 1 | | 1 VIEW | | | | Occurrences starting | | | | | | 01/08/2013 until | | | | | | 01/08/2013 | + +---------+--------+ + + documented as of this encounter Procedures + +--------+ + + + | Procedure Name | Priori | Date/Time | Associated Diagnosis | Comments | | | ty | | | | + +--------+ + + + | PROCEDURE NOTE | Routin | 12/09/2015 | | Results for this | | | e | 11:24 PM | | procedure are in the | | | | PST | | results section. | + +--------+ + + + | CAPILLARY BLOOD | Routin | 01/11/2013 | | Results for this | | GLUCOSE (NO CHG), | e | 9:12 AM | | procedure are in the | | POC | | PST | | results section. | + +--------+ + + + | CBC ONLY | Urgent | 01/11/2013 | | Results for this | | | | 3:27 AM | | procedure are in the | | | | PST | | results section. | + +--------+ + + + | BASIC METABOLIC SET | Urgent | 01/11/2013 | | Results for this | | (NA, K, CL, TCO2, | | 3:27 AM | | procedure are in the | | BUN, CR, GLU, CA) | | PST | | results section. | + +--------+ + + + | CBC ONLY | Urgent | 01/11/2013 | | Results for this | | | | 3:27 AM | | procedure are in the | | | | PST | | results section. | + +--------+ + + + | PHOSPHORUS, PLASMA | Urgent | 01/11/2013 | | Results for this | | | | 3:27 AM | | procedure are in the | | | | PST | | results section. | + +--------+ + + + | MAGNESIUM, PLASMA | Urgent | 01/11/2013 | | Results for this | | | | 3:27 AM | | procedure are in the | | | | PST | | results section. | + +--------+ + + + | CK, PLASMA | Urgent | 01/11/2013 | | Results for this | | | | 3:27 AM | | procedure are in the | | | | PST | | results section. | + +--------+ + + + | CAPILLARY BLOOD | Routin | 01/10/2013 | | Results for this | | GLUCOSE (NO CHG), | e | 9:53 PM | | procedure are in the | | POC | | PST | | results section. | + +--------+ + + + | CAPILLARY BLOOD | Routin | 01/10/2013 | | Results for this | | GLUCOSE (NO CHG), | e | 3:57 PM | | procedure are in the | | POC | | PST | | results section. | + +--------+ + + + | OPERATION RECORD | | 01/10/2013 | | Results for this | | | | 8:03 AM | | procedure are in the | | | | PST | | results section. | + +--------+ + + + | CBC ONLY | Urgent | 01/10/2013 | | Results for this | | | | 4:12 AM | | procedure are in the | | | | PST | | results section. | + +--------+ + + + | BASIC METABOLIC SET | Urgent | 01/10/2013 | | Results for this | | (NA, K, CL, TCO2, | | 4:12 AM | | procedure are in the | | BUN, CR, GLU, CA) | | PST | | results section. | + +--------+ + + + | CBC ONLY | Urgent | 01/10/2013 | | Results for this | | | | 4:12 AM | | procedure are in the | | | | PST | | results section. | + +--------+ + + + | PHOSPHORUS, PLASMA | Urgent | 01/10/2013 | | Results for this | | | | 4:12 AM | | procedure are in the | | | | PST | | results section. | + +--------+ + + + | MAGNESIUM, PLASMA | Urgent | 01/10/2013 | | Results for this | | | | 4:12 AM | | procedure are in the | | | | PST | | results section. | + +--------+ + + + | CK, PLASMA | Urgent | 01/10/2013 | | Results for this | | | | 4:12 AM | | procedure are in the | | | | PST | | results section. | + +--------+ + + + | CAPILLARY BLOOD | Routin | 01/09/2013 | | Results for this | | GLUCOSE (NO CHG), | e | 8:59 PM | | procedure are in the | | POC | | PST | | results section. | + +--------+ + + + | CAPILLARY BLOOD | Routin | 01/09/2013 | | Results for this | | GLUCOSE (NO CHG), | e | 6:04 PM | | procedure are in the | | POC | | PST | | results section. | + +--------+ + + + | OPERATION RECORD | | 01/09/2013 | | Results for this | | | | 1:13 PM | | procedure are in the | | | | PST | | results section. | + +--------+ + + + | CAPILLARY BLOOD | Routin | 01/09/2013 | | Results for this | | GLUCOSE (NO CHG), | e | 12:36 PM | | procedure are in the | | POC | | PST | | results section. | + +--------+ + + + | CBC ONLY | Urgent | 01/09/2013 | | Results for this | | | | 4:06 AM | | procedure are in the | | | | PST | | results section. | + +--------+ + + + | BASIC METABOLIC SET | Urgent | 01/09/2013 | | Results for this | | (NA, K, CL, TCO2, | | 4:06 AM | | procedure are in the | | BUN, CR, GLU, CA) | | PST | | results section. | + +--------+ + + + | CBC ONLY | Urgent | 01/09/2013 | | Results for this | | | | 4:06 AM | | procedure are in the | | | | PST | | results section. | + +--------+ + + + | PHOSPHORUS, PLASMA | Urgent | 01/09/2013 | | Results for this | | | | 4:06 AM | | procedure are in the | | | | PST | | results section. | + +--------+ + + + | MAGNESIUM, PLASMA | Urgent | 01/09/2013 | | Results for this | | | | 4:06 AM | | procedure are in the | | | | PST | | results section. | + +--------+ + + + | CK, PLASMA | Urgent | 01/09/2013 | | Results for this | | | | 4:06 AM | | procedure are in the | | | | PST | | results section. | + +--------+ + + + | CAPILLARY BLOOD | Routin | 01/09/2013 | | Results for this | | GLUCOSE (NO CHG), | e | 4:02 AM | | procedure are in the | | POC | | PST | | results section. | + +--------+ + + + | CAPILLARY BLOOD | Routin | 01/08/2013 | | Results for this | | GLUCOSE (NO CHG), | e | 11:16 PM | | procedure are in the | | POC | | PST | | results section. | + +--------+ + + + | X-RAY PORTABLE CHEST | Urgent | 01/08/2013 | | Results for this | | 1 VIEW | | 7:12 PM | | procedure are in the | | | | PST | | results section. | + +--------+ + + + | BASIC METABOLIC SET | Urgent | 01/08/2013 | | Results for this | | (NA, K, CL, TCO2, | | 6:36 PM | | procedure are in the | | BUN, CR, GLU, CA) | | PST | | results section. | + +--------+ + + + | MAGNESIUM, PLASMA | Urgent | 01/08/2013 | | Results for this | | | | 6:36 PM | | procedure are in the | | | | PST | | results section. | + +--------+ + + + | CK, PLASMA | Urgent | 01/08/2013 | | Results for this | | | | 6:36 PM | | procedure are in the | | | | PST | | results section. | + +--------+ + + + | CAPILLARY BLOOD | Routin | 01/08/2013 | | Results for this | | GLUCOSE (NO CHG), | e | 6:33 PM | | procedure are in the | | POC | | PST | | results section. | + +--------+ + + + | ABG-FULL ABL, POC | Routin | 01/08/2013 | | Results for this | | | e | 5:36 PM | | procedure are in the | | | | PST | | results section. | + +--------+ + + + | LACTATE (ART), POC | Routin | 01/08/2013 | | Results for this | | ISTAT | e | 4:32 PM | | procedure are in the | | | | PST | | results section. | + +--------+ + + + | HEMOGLOBIN-COOX, POC | Routin | 01/08/2013 | | Results for this | | | e | 4:32 PM | | procedure are in the | | | | PST | | results section. | + +--------+ + + + | SODIUM, POC | Routin | 01/08/2013 | | Results for this | | | e | 4:32 PM | | procedure are in the | | | | PST | | results section. | + +--------+ + + + | POTASSIUM, POC | Routin | 01/08/2013 | | Results for this | | | e | 4:32 PM | | procedure are in the | | | | PST | | results section. | + +--------+ + + + | GLUCOSE, POC | Routin | 01/08/2013 | | Results for this | | | e | 4:32 PM | | procedure are in the | | | | PST | | results section. | + +--------+ + + + | ARTERIAL BLOOD GAS, | Routin | 01/08/2013 | | Results for this | | POC | e | 4:32 PM | | procedure are in the | | | | PST | | results section. | + +--------+ + + + | SHANON POC | Routin | 01/08/2013 | | Results for this | | | e | 4:32 PM | | procedure are in the | | | | PST | | results section. | + +--------+ + + + | MIKI NICK | Routin | 01/08/2013 | | Results for this | | | e | 4:32 PM | | procedure are in the | | | | PST | | results section. | + +--------+ + + + | YOEL-MARK PIRES POC | Routin | 01/08/2013 | | Results for this | | | e | 3:11 PM | | procedure are in the | | | | PST | | results section. | + +--------+ + + + | CYSTOSCOPY WITH | Electi | 01/08/2013 | Morbid obesity | | | BLADDER | ve | 12:45 PM | ([facility]) | | | HYDRODISTENSION | Surgic | PST | | | | | al | | | | + +--------+ + + + +---+--------+ | | | | | Specia | | | l | | | Needs | | | | | | sizewi | | | se bed | | | | | | needed | | | ; | | | preop | | | prep 9 | +---+--------+ + +--------+ + +---+ | GASTRIC BYPASS | Electi | 01/08/2013 | Morbid obesity | | | | ve | 12:45 PM | ([facility]) | | | | Surgic | PST | | | | | al | | | | + +--------+ + +---+ +---+--------+ | | | | | Specia | | | l | | | Needs | | | | | | sizewi | | | se bed | | | | | | needed | | | ; | | | preop | | | prep 9 | +---+--------+ + +--------+ +---+ + | ANTIBODY SCREEN | Routin | 01/08/2013 | | Results for this | | | e | 11:22 AM | | procedure are in the | | | | PST | | results section. | + +--------+ +---+ + | ABO & RH TYPE | Routin | 01/08/2013 | | Results for this | | | e | 11:22 AM | | procedure are in the | | | | PST | | results section. | + +--------+ +---+ + | CAPILLARY BLOOD | Routin | 01/08/2013 | | Results for this | | GLUCOSE (NO CHG), | e | 11:10 AM | | procedure are in the | | POC | | PST | | results section. | + +--------+ +---+ + | SURGICAL PATHOLOGY | Routin | 01/08/2013 | | Results for this | | | e | | | procedure are in the | | | | | | results section. | + +--------+ +---+ + documented in this encounter Results PROCEDURE NOTE (12/09/2015 11:24 PM PST)CAPILLARY BLOOD GLUCOSE (NO CHG), POC (01/11/2013 9:12 AM PST) + +---------+ + + + | Component | Value | Ref Range | Performed | Pathologist | | | | | At | Signature | + +---------+ + + + | BLOOD | 158 (H) | 60 - 99 mg/dL | [...] + | [facility] | [address] | [place], [place] | | | [facility] | [address] | [phone] | | | TESTS | | | | + + + + + CBC (01/11/2013 3:27 AM PST) + + + + + + | Component | Value | Ref Range | Performed | Pathologist | | | | | At | Signature | + + + + + + | WBC COUNT | 6.6 | 4.4 - 11.0 K/cu | [facility] | | | | | mm | LABORATORY | | | | | | SERVICES, | | | | | | CORE | | + + + + + + | RED CELL | 3.83 (L) | 4.50 - 5.90 | [facility] | | | COUNT | | M/cu mm | LABORATORY | | | | | | SERVICES, | | | | | | CORE | | + + + + + + | HEMOGLOBIN | 10.6 (L) | 13.5 - 17.5 | [facility] | | | | | g/dL | LABORATORY | | | | | | SERVICES, | | | | | | CORE | | + + + + + + | HEMATOCRIT | 32.0 (L) | 41.0 - 53.0 % | [facility] | | | | | | LABORATORY | | | | | | SERVICES, | | | | | | CORE | | + + + + + + | MCV | 83.5 | 80.0 - 96.0 fL | [facility] | | | | | | LABORATORY | | | | | | SERVICES, | | | | | | CORE | | + + + + + + | MCHC | 33.3 (L) | 33.4 - 35.5 | [facility] [...] + + + + | PLATELET | 241 | 150 - 400 K/cu | [facility] [...] [facility] | [address] | [place] [address] | | | SERVICES, CORE | [address] | | | + + + + + CK, PLASMA (01/11/2013 3:27 AM PST) + +-------+ + + + | Component | Value | Ref Range | Performed | Pathologist | | | | | At | Signature | + +-------+ + + + | CK | 151 | 49 - 397 U/L | [facility] | | | | | | LABORATORY | | | | | | SERVICES, | | | | | | CORE | | + +-------+ + + + + + | Specimen | + + | Blood - Blood | + + + + + + + | Performing | Address | City/State/Zipcode | Phone Number | | Organization | | | | + + + + + | [facility] | [address] | [place] [address] | | | SERVICES, CORE | [address] | | | + + + + + PHOSPHORUS, PLASMA (01/11/2013 3:27 AM PST) + +-------+ + + + | Component | Value | Ref Range | Performed | Pathologist | | | | | At | Signature | + +-------+ + + + | PHOSPHORUS, | 3.0 | 2.4 - 4.7 mg/dL | [facility] | | | PLASMA | | | LABORATORY | | | (LAB) | | | SERVICES, | | | | | | CORE | | + +-------+ + + + + + | Specimen | + + | Blood - Blood | + + + + + + + | Performing | Address | City/State/Zipcode | Phone Number | | Organization | | | | + + + + + | [facility] | [address] | [place] [address] | | | SERVICES, CORE | [address] | | | + + + + + MAGNESIUM, PLASMA (01/11/2013 3:27 AM PST) + +---------+ + + + | Component | Value | Ref Range | Performed | Pathologist | | | | | At | Signature | + +---------+ + + + | MAGNESIUM,P | 1.4 (L) | 1.8 - 2.5 mg/dL | [...] [facility] | [address] | [place] [address] | | | SERVICES, CORE | [address] | | | + + + + + BASIC METABOLIC SET (NA, K, CL, TCO2, BUN, CR, GLU, CA) (01/11/2013 3:27 AM PST) + +---------+ + + + | Component | Value | Ref Range | Performed | Pathologist | | | | | At | Signature | + +---------+ + + + | GLUCOSE, | 136 (H) | 60 - 99 mg/dL | [facility] | | | PLASMA | | | LABORATORY | | | (LAB) | | | SERVICES, | | | | | | CORE | | + +---------+ + + + | BUN, PLASMA | 7 | 6 - 20 mg/dL | [facility] | | | (LAB) | | | LABORATORY | | | | | | SERVICES, | | | | | | CORE | | + +---------+ + + + | CREATININE | 0.71 | 0.70 - 1.30 | [facility] | | | PLASMA | | mg/dL | LABORATORY | | | (LAB) | | | SERVICES, | | | | | | CORE | | + +---------+ + + + | SODIUM, | 141 | 136 - 145 | [facility] | | | PLASMA | | mmol/L | LABORATORY | | | (LAB) | | | SERVICES, | | | | | | CORE | | + +---------+ + + + | POTASSIUM, | 3.5 | 3.4 - 5.0 | [facility] | | | PLASMA | | mmol/L | LABORATORY | | | (LAB) | | | SERVICES, | | | | | | CORE | | + +---------+ + + + | CHLORIDE, | 102 [...] +---------+ + + + | CALCIUM, | 8.6 | 8.6 - 10.2 | [facility] | | | PLASMA | | mg/dL | LABORATORY | | | (LAB) | | | SERVICES, | | | | | | CORE | | + +---------+ + + + | ANION GAP | 12 (H) | 4 - 11 mmol/L | [facility] | | | | [...] | + + + + + | [facility] | [address] | [place] [address] | | | SERVICES, CORE | [address] | | | + + + + + CAPILLARY BLOOD GLUCOSE (NO CHG), POC (01/10/2013 9:53 PM PST) + +---------+ + + + | Component | Value | Ref Range | Performed | Pathologist | | | | | At | Signature | + +---------+ + + + | BLOOD | 163 (H) | 60 - 99 mg/dL | [...] [facility] | [address] | [place], [place] | | | [facility] | [address] | [phone] | | | TESTS | | | | + + + + + CAPILLARY BLOOD GLUCOSE (NO CHG), POC (01/10/2013 3:57 PM PST) + +---------+ + + + | Component | Value | Ref Range | Performed | Pathologist | | | | | At | Signature | + +---------+ + + + | BLOOD | 180 (H) | 60 - 99 mg/dL | [...] + + | [facility] | [address] | [place], [place] | | | [facility] | [address] | [address] | | | TESTS | | | | + + + + + OPERATION RECORD (01/10/2013 8:03 AM PST) + + | Transcriptions | + + | Florencia Kathleen MD - 01/09/2013 7:00 PM PST Date: 01/08/2013 | | | | Attending Surgeon: Jesus Perez M.D. | | | | Correction Officer Head(s): Florencia Kathleen MD | | | | | | Preoperative Diagnosis(es): | | Super morbid obesity. | | | | Postoperative Diagnosis(es): | | Super morbid obesity. | | | | Procedures Performed: | | 1. Attempted laparoscopic procedure. | | 2. Exploratory laparotomy, lysis of adhesions. | | 3. Open sleeve gastrectomy. | | | | | | Findings: | | Negative methylene blue leak test. Midline fascial calcification. | | | | Anesthesia: | | GETA plus epidural. | | | | Fluids: | | EBL 100 cc, crystalloid 3000 mL, urine output 130 cc. | | | | Specimens: | | Midline fascial calcification, lateral stomach. | | | | Complications: | | None. | | | | Drains: | | TI in the left upper quadrant. | | | | Disposition: | | Surgical floor, extubated. | | | | Indications: | | Mr. Burns is a 47-year-old male with a super/supreme morbid obesity with | | a preop BMI of 81 and a weight of 587 pounds in clinic. He was placed on | | phentermine and lost weight preoperatively and now weighs approximately 528 | | pounds on the day of surgery. He has comorbidities, and indication was for | | bariatric surgery. He has had a previous operation midline in years past, | | which renders the chance of laparoscopic surgery less. Nonetheless, we | | counseled the patient through informed consent and a full PARQ about | | attempted laparoscopy, sleeve gastrectomy with likelihood of an open | | procedure. The patient and his understood and wished to proceed. | | | | Procedure: | | The patient was brought to the operating theater with epidural placement in | | the preop holding area. He was placed on an extended Maquet table. All | | pressure points padded. Previously, a Chau catheter was placed under | | Seldinger technique and cystoscope with Urology. A moderate tilt test was | | performed after securing the patient and general endotracheal anesthesia. | | Arterial line and central line were already placed by Anesthesia. The | | patient was sterilely prepped and draped, and the procedure began after a | | timeout. | | | | Using a left upper quadrant stab incision, a Veress needle was placed | | through the fascia, and insufflation was attempted. In various positions, | | the insufflation pressure was between 15 and 20 mmHg. Therefore, we | | decided to abandon laparoscopic attempt and continued the operation in an | | open fashion. A generous upper midline incision was made with a number 10 | | blade and with blunt dissection as well as electrocautery and hemostasis | | with ties. The midline was accessed down to the fascia revealing a | | previous Prolene suture. This was then opened in a protected way | | protecting any bowel. There were some adhesions which were lysed with | | electrocautery, blunt dissection, and Harmonic scalpel. We accessed the | | stomach and noticed that there was a minor liver tear, which was amenable | | to electrocautery. Hemostasis was obtained. The modified orogastric tube | | was in place, and this was easily palpable through the stomach. This was | | placed along the lesser curve as far as distal as possible. The short | | gastrics were taken with Harmonic scalpel up to the hiatus, which was | | palpated though not readily seen due to the body habitus. We identified | | what we believed was the pylorus clearly contiguous with the antrum of the | | stomach, and in a region approximately 10 cm proximal on the greater curve | | from the pylorus, the sleeve gastrectomy was performed with the orogastric | | tube in place hugging the lesser curvature. This was performed with purple | | load Endo KRYSTEN Tri-Staple loads all the way up to the proximal stomach and | | angle of His. The very last load was a gold Endo KRYSTEN Tri-Staple. | | Methylene blue leak test was then performed which was negative. | | | | With a negative methylene blue leak test and minimal bleeding, we decided | | to perform abdominal closure. Number 1 looped Maxon in 2 directions closed | | the fascia with internal retention stitches of separate number 1 looped | | Maxon x2. Subcutaneous tissue was closed with running 2-0 Vicryl, and 3-0 | | Vicryl approximated the dermis with deep dermal stitches in interrupted | | fashion. The skin was closed with 4-0 Biosyn and Indermil. Previously, a | | 19-Polish round Delvin drain was placed to the left upper quadrant and | | around the angle of His and splenic fossa. This was performed just in case | | a leak occurs and the patient is unable to be brought to the interventional | | radiology suite. This was sewn into place with a 2-0 nylon. | | | | Dr. Perez was scrubbed and present throughout the entire procedure. All | | sponge and needle counts were correct x2. The patient was extubated and | | brought to the recovery room in stable condition. | | | | | | Florencia Kathleen MD | | | | | | Jesus Perez M.D. | | | | ME / HS | | [id number] / [id number] / [id number] / | | | | | + + CBC (01/10/2013 4:12 AM PST) + + + + + + | Component | Value | Ref Range | Performed | Pathologist | | | | | At | Signature | + + + + + + | WBC COUNT | 7.2 | 4.4 - 11.0 K/cu | [facility] | | | | | mm | LABORATORY | | | | | | SERVICES, | | | | | | CORE | | + + + + + + | RED CELL | 3.94 (L) | 4.50 - 5.90 | [facility] | | | COUNT | | M/cu mm | LABORATORY | | | | | | SERVICES, | | | | | | CORE | | + + + + + + | HEMOGLOBIN | 10.9 (L) | 13.5 - 17.5 | [facility] | | | | | g/dL | LABORATORY | | | | | | SERVICES, | | | | | | CORE | | + + + + + + | HEMATOCRIT | 33.5 (L) | 41.0 - 53.0 % | [...] + + + + | MCHC | 32.6 (L) | 33.4 - 35.5 | [facility] | | | | | g/dL | LABORATORY | | | | | | SERVICES, | | | | | | CORE | | + + + + + + | RDW | 15.9 (H) | 11.5 - 15.0 % | [facility] | | | | | | LABORATORY | | | | | | SERVICES, | | | | | | CORE | | + + + + + + | PLATELET | 240 | 150 - 400 K/cu | [facility] [...] [facility] | [address] | [place] [address] | | | SERVICES, CORE | [address] | | | + + + + + CK, PLASMA (01/10/2013 4:12 AM PST) + +-------+ + + + | Component | Value | Ref Range | Performed | Pathologist | | | | | At | Signature | + +-------+ + + + | CK | 172 | 49 - 397 U/L | [facility] | | | | | | LABORATORY | | | | | | SERVICES, | | | | | | CORE | | + +-------+ + + + + + | Specimen | + + | Blood - Blood | + + + + + + + | Performing | Address | City/State/Zipcode | Phone Number | | Organization | | | | + + + + + | [facility] | [address] | [place] [address] | | | SERVICES, CORE | [address] | | | + + + + + PHOSPHORUS, PLASMA (01/10/2013 4:12 AM PST) + +-------+ + + + | Component | Value | Ref Range | Performed | Pathologist | | | | | At | Signature | + +-------+ + + + | PHOSPHORUS, | 2.7 | 2.4 - 4.7 mg/dL | [facility] | | | PLASMA | | | LABORATORY | | | (LAB) | | | SERVICES, | | | | | | CORE | | + +-------+ + + + + + | Specimen | + + | Blood - Blood | + + + + + + + | Performing | Address | City/State/Zipcode | Phone Number | | Organization | | | | + + + + + | [facility] | [address] | [place] [address] | | | YVETTE, DAVEY | [address] | | | + + + + + MAGNESIUM, PLASMA (01/10/2013 4:12 AM PST) + +-------+ + + + | Component | Value | Ref Range | Performed | Pathologist | | | | | At | Signature | + +-------+ + + + | MAGNESIUM,P | 1.8 | 1.8 - 2.5 mg/dL | [facility] | | | LASMA | | | LABORATORY | | | | | | SERVICES, | | | | | | CORE | | + +-------+ + + + + + | Specimen | + + | Blood - Blood | + + + + + + + | Performing | Address | City/State/Zipcode | Phone Number | | Organization | | | | + + + + + | [facility] | [address] | [place] [address] | | | SERVICES, CORE | [address] | | | + + + + + BASIC METABOLIC SET (NA, K, CL, TCO2, BUN, CR, GLU, CA) (01/10/2013 4:12 AM PST) + +---------+ + + + | Component | Value | Ref Range | Performed | Pathologist | | | | | At | Signature | + +---------+ + + + | GLUCOSE, | 140 (H) | 60 - 99 mg/dL | [facility] | | | PLASMA | | | LABORATORY | | | (LAB) | | | SERVICES, | | | | | | CORE | | + +---------+ + + + | BUN, PLASMA | 8 | 6 - 20 mg/dL | [facility] | | | (LAB) | | | LABORATORY | | | | | | SERVICES, | | | | | | CORE | | + +---------+ + + + | CREATININE | 0.71 | 0.70 - 1.30 | [facility] | | | PLASMA | | mg/dL | LABORATORY | | | (LAB) | | | SERVICES, | | | | | | CORE | | + +---------+ + + + | SODIUM, | 141 | 136 - 145 | [facility] | | | PLASMA | | mmol/L | LABORATORY | | | (LAB) | | | SERVICES, | | | | | | CORE | | + +---------+ + + + | POTASSIUM, | 4.0 | 3.4 - 5.0 | [facility] | [...] + + + | TOTAL CO2, | 28 | 21 - 32 mmol/L | [facility] | | | PLASMA | | | LABORATORY | | | (LAB) | | | SERVICES, | | | | | | CORE | | + +---------+ + + + | CALCIUM, | 8.6 | 8.6 - 10.2 | [facility] | | | PLASMA | | mg/dL | LABORATORY | | | (LAB) | | | SERVICES, | | | | | | CORE | | + +---------+ + + + | ANION GAP | 8 | 4 - 11 mmol/L | [facility] | | | | [...] | + + + + + | [facility] | [address] | [place] [address] | | | SERVICES, CORE | [address] | | | + + + + + CAPILLARY BLOOD GLUCOSE (NO CHG), POC (01/09/2013 8:59 PM PST) + +---------+ + + + | Component | Value | Ref Range | Performed | Pathologist | | | | | At | Signature | + +---------+ + + + | BLOOD | 112 (H) | 60 - 99 mg/dL | [...] [facility] | [address] | [place], [place] | | | [facility] | [address] | [address] | | | TESTS | | | | + + + + + CAPILLARY BLOOD GLUCOSE (NO CHG), POC (01/09/2013 6:04 PM PST) + +---------+ + + + | Component | Value | Ref Range | Performed | Pathologist | | | | | At | Signature | + +---------+ + + + | BLOOD | 158 (H) | 60 - 99 mg/dL | [...] | + + + + + | [facility] | [address] | [place], [place] | | | [facility] | [address] | [address] | | | TESTS | | | | + + + + + OPERATION RECORD (01/09/2013 1:13 PM PST) + + | Transcriptions | + + | Yahaira Doran MD - 01/09/2013 12:27 PM PST Date: 01/08/2013 | | | | Attending Surgeon: Yahaira Doran M.D. | | | | Procedures Performed: | | Flexible cystoscopy with catheter placement. | | | | Indications: | | Gerard Burns is a 47-year-old gentleman with morbid obesity (BMI 81), who | | is undergoing sleeve gastrectomy with Dr. Perez today. Urology assistance | | was requested in placing a Chau catheter due to his large pannus, which | | obscures his penis and scrotum. | | | | Findings: | | He had two very large panni, which completely obscured the penis and | | scrotum. With elevation of the lower pannus, the opening of the distal | | foreskin was visible, though the glans was not. Cystoscopy demonstrated | | normal urethra, moderate prostate enlargement, and normal bladder with | | some debris. A 14 Polish Chau catheter over a wire. | | | | Procedure: | | Following informed consent, the patient was correctly identified and | | brought back to the operating room. A surgical pause was performed. | | He was left on the stretcher and the procedure was started prior to | | induction of anesthesia in order to facilitate changing position in case | | catheter placement was not possible with the patient supine. The patient's | | lower pannus was retracted cephalad using a towel and tape. His external | | genitalia were prepped and draped in the usual sterile fashion. The glans | | was palpable, though not visible and a single attempt was made to place | | a Chau catheter blindly; however, this was not successful. The patient was | | then re-prepped and draped in the usual sterile fashion. A 16-Polish flexible | | Olympus cystoscope was advanced into the distal foreskin. The glans was | | visible, but I was unable to easily advance the cystoscope into the meatus. | | A 0.038 PTFE guidewire was easily advanced into the urethral meatus | | under direct visualization into the bladder. The cystoscope was removed. | | An attempt to pass a 16-Councill catheter over the wire was unsuccessful. | | An attempt to pass a 14-Polish catheter over the wire, was also unsuccessful. | | The wire was removed and the cystoscope was replaced. A superstiff wire was | | then advanced into the meatus and bladder. The cystoscope was advanced | | over the wire into the patient's bladder. The above findings were noted. | | The cystoscope was removed. A 14-Polish Councill catheter was then placed | | over the wire into the bladder with efflux of clear urine. The wire was | | removed. The wound was filled with 10 mL of sterile water. The catheter | | was placed to gravity drainage. The remainder of the procedure will be | | dictated by Dr. Perez. | | | | Estimated Blood Loss: | | None. | | | | Complications: | | None. | | | | Drains: | | 14-Polish Chau catheter. | | | | Disposition: | | OR for General Surgery procedure | | | | | | Yahaira Doran M.D. | | JS / JUS | | [id number] / [id number] / [id number] / | | | | | + + CAPILLARY BLOOD GLUCOSE (NO CHG), POC (01/09/2013 12:36 PM PST) + +---------+ + + + | Component | Value | Ref Range | Performed | Pathologist | | | | | At | Signature | + +---------+ + + + | BLOOD | 168 (H) | 60 - 99 mg/dL | [facility] - | | | GLUCOSE, | | [...] | [facility] | [address] | [place], [place] | | | [facility] | [address] | [address] | | | TESTS | | | | + + + + + CBC (01/09/2013 4:06 AM PST) + + + + + + | Component | Value | Ref Range | Performed | Pathologist | | | | | At | Signature | + + + + + + | WBC COUNT | 8.5 | 4.4 - 11.0 K/cu | [facility] | | | | | mm | LABORATORY | | | | | | SERVICES, | | | | | | CORE | | + + + + + + | RED CELL | 4.11 (L) | 4.50 - 5.90 | [facility] | | | COUNT | | M/cu mm | LABORATORY | | | | | | SERVICES, | | | | | | CORE | | + + + + + + | HEMOGLOBIN | 11.4 (L) | 13.5 - 17.5 | [facility] | | | | | g/dL | LABORATORY | | | | | | SERVICES, | | | | | | CORE | | + + + + + + | HEMATOCRIT | 34.9 (L) | 41.0 - 53.0 % | [facility] | | | | | | LABORATORY | | | | | | SERVICES, | | | | | | CORE | | + + + + + + | MCV | 84.9 | 80.0 - 96.0 fL | [facility] | | | | | | LABORATORY | | | | | | SERVICES, | | | | | | CORE | | + + + + + + | MCHC | 32.8 (L) | 33.4 - 35.5 | [facility] [...] + + + + | PLATELET | 253 | 150 - 400 K/cu | [facility] [...] + + | [facility] | [address] | [place] [address] | | | SERVICES, CORE | [address] | | | + + + + + CK, PLASMA (01/09/2013 4:06 AM PST) + +-------+ + + + | Component | Value | Ref Range | Performed | Pathologist | | | | | At | Signature | + +-------+ + + + | CK | 94 | 49 - 397 U/L | [facility] | | | | | | LABORATORY | | | | | | SERVICES, | | | | | | CORE | | + +-------+ + + + + + | Specimen | + + | Blood - Blood | + + + + + + + | Performing | Address | City/State/Zipcode | Phone Number | | Organization | | | | + + + + + | [facility] | [address] | [place] [address] | | | SERVICES, DAVEY | [address] | | | + + + + + PHOSPHORUS, PLASMA (01/09/2013 4:06 AM PST) + +-------+ + + + | Component | Value | Ref Range | Performed | Pathologist | | | | | At | Signature | + +-------+ + + + | PHOSPHORUS, | 3.8 | 2.4 - 4.7 mg/dL | [facility] | | | PLASMA | | | LABORATORY | | | (LAB) | | | SERVICES, | | | | | | CORE | | + +-------+ + + + + + | Specimen | + + | Blood - Blood | + + + + + + + | Performing | Address | City/State/Zipcode | Phone Number | | Organization | | | | + + + + + | [facility] | [address] | [place] [address] | | | SERVICES, CORE | [address] | | | + + + + + MAGNESIUM, PLASMA (01/09/2013 4:06 AM PST) + +---------+ + + + | Component | Value | Ref Range | Performed | Pathologist | | | | | At | Signature | + +---------+ + + + | MAGNESIUM,P | 1.7 (L) | 1.8 - 2.5 mg/dL | [facility] | | | LASMA | | | [...] [facility] | [address] | [place] [address] | | | SERVICES, CORE | [address] | | | + + + + + BASIC METABOLIC SET (NA, K, CL, TCO2, BUN, CR, GLU, CA) (01/09/2013 4:06 AM PST) + +---------+ + + + | Component | Value | Ref Range | Performed | Pathologist | | | | | At | Signature | + +---------+ + + + | GLUCOSE, | 173 (H) | 60 - 99 mg/dL | [facility] | | | PLASMA | | | LABORATORY | | | (LAB) | | | SERVICES, | | | | | | CORE | | + +---------+ + + + | BUN, PLASMA | 11 | 6 - 20 mg/dL | [facility] | | | (LAB) | | | LABORATORY | | | | | | SERVICES, | | | | | | CORE | | + +---------+ + + + | CREATININE | 0.77 | 0.70 - 1.30 | [facility] | | | PLASMA | | mg/dL | LABORATORY | | | (LAB) | | | SERVICES, | | | | | | CORE | | + +---------+ + + + | SODIUM, | 142 | 136 - 145 | [facility] | | | PLASMA | | mmol/L | LABORATORY | | | (LAB) | | | SERVICES, | | | | | | CORE | | + +---------+ + + + | POTASSIUM, | 4.0 | 3.4 - 5.0 | [facility] | | | PLASMA | | mmol/L | LABORATORY | | | (LAB) | | | SERVICES, | | | | | | CORE | | + +---------+ + + + | CHLORIDE, | 106 | 97 - 108 mmol/L | [facility] [...] +---------+ + + + | CALCIUM, | 8.5 (L) | 8.6 - 10.2 | [facility] | | | PLASMA | | mg/dL | LABORATORY | | | (LAB) | | | SERVICES, | | | | | | CORE | | + +---------+ + + + | ANION GAP | 9 | 4 - 11 mmol/L | [facility] | | | | [...] [facility] | [address] | [place] [address] | | | SERVICES, CORE | [address] | | | + + + + + CAPILLARY BLOOD GLUCOSE (NO CHG), POC (01/09/2013 4:02 AM PST) + +---------+ + + + | Component | Value | Ref Range | Performed | Pathologist | | | | | At | Signature | + +---------+ + + + | BLOOD | 165 (H) | 60 - 99 [...] [facility] | [address] | [place], [place] | | | [facility] | [facility] | [address] | | | TESTS | | | | + + + + + CAPILLARY BLOOD GLUCOSE (NO CHG), POC (01/08/2013 11:16 PM PST) + +---------+ + + + | Component | Value | Ref Range | Performed | Pathologist | | | | | At | Signature | + +---------+ + + + | BLOOD | 188 (H) | 60 - 99 mg/dL | [facility] - | | | GLUCOSE, | | [...] | [facility] | [address] | [place], [place] | | | [facility] | [address] | [address] | | | TESTS | | | | + + + + + X-RAY PORTABLE CHEST 1 VIEW (01/08/2013 7:12 PM PST) + + + + + + | Component | Value | Ref Range | Performed | Pathologist | | | | | At | Signature | + + + + + + | X-RAY | NH CHEST 1 VIEW, | | | | | PORTABLE | 01/08/13 19:12:00 | | | | | CHEST 1 | COMPARISON: None | | | | | VIEW | HISTORY: Line placement | | | | | | FINDINGS: The right | | | | | | jugular CVC tip projects | | | | | | in the innominate vein | | | | | | likely justabove the | | | | | | brachiocephalic | | | | | | confluence. A small | | | | | | caliber line is likelyan | | | | | | epidural catheter. | | | | | | There is no | | | | | | pneumothorax, pleural | | | | | | effusion, orfocal | | | | | | consolidation. The | | | | | | cardiac silhouette is at | | | | | | the upper limits | | | | | | ofnormal. Limited | | | | | | assessment of the | | | | | | osseous structures and | | | | | | soft tissuesreveals no | | | | | | acute abnormality. | | | | | | IMPRESSION: Right | | | | | | jugular CVC tip likely | | | | | | in the innominate vein. | | | | | | No pneumothorax. | | | | | | Enlarged cardiac | | | | | | silhouette. Attending | | | | | | Radiologists: KAITLIN | | | | | | JOE MDAuthor: | | | | | | Godwin Novoa M.D. I | | | | | | have personally viewed | | | | | | this procedure/exam, | | | | | | reviewed this report,and | | | | | | made changes to it | | | | | | where appropriate. | | | | | | Final/Electronically | | | | | | signed / KAITLIN | | | | | | JOE 01/09/2013 9:37 AM | | | | | | | | | | + + + + + + + + | Specimen | + + | | + + + +---------+ + + | Performing | Address | City/State/Zipcode | Phone Number | | Organization | | | | + +---------+ + + | [facility] | | | | | RADIOLOGY | | | | + +---------+ + + CK, PLASMA (01/08/2013 6:36 PM PST) + +-------+ + + + | Component | Value | Ref Range | Performed | Pathologist | | | | | At | Signature | + +-------+ + + + | CK | 70 | 49 - 397 U/L | [facility] | | | | | | LABORATORY | | | | | | SERVICES, | | | | | | CORE | | + +-------+ + + + + + | Specimen | + + | Blood - Blood | + + + + + + + | Performing | Address | City/State/Zipcode | Phone Number | | Organization | | | | + + + + + | [facility] | [address] | [place] [address] | | | SERVICES, CORE | [address] | | | + + + + + MAGNESIUM, PLASMA (01/08/2013 6:36 PM PST) + +---------+ + + + | Component | Value | Ref Range | Performed | Pathologist | | | | | At | Signature | + +---------+ + + + | MAGNESIUM,P | 1.7 (L) | 1.8 - 2.5 mg/dL | [...] [facility] | [address] | [place] [address] | | | SERVICES, CORE | [address] | | | + + + + + BASIC METABOLIC SET (NA, K, CL, TCO2, BUN, CR, GLU, CA) (01/08/2013 6:36 PM PST) + +---------+ + + + | Component | Value | Ref Range | Performed | Pathologist | | | | | At | Signature | + +---------+ + + + | GLUCOSE, | 192 (H) | 60 - 99 mg/dL | [facility] | | | PLASMA | | | LABORATORY | | | (LAB) | | | SERVICES, | | | | | | CORE | | + +---------+ + + + | BUN, PLASMA | 12 | 6 - 20 mg/dL | [facility] | | | (LAB) | | | LABORATORY | | | | | | SERVICES, | | | | | | CORE | | + +---------+ + + + | CREATININE | 0.92 | 0.70 - 1.30 | [facility] | | | PLASMA | | mg/dL | LABORATORY | | | (LAB) | | | SERVICES, | | | | | | CORE | | + +---------+ + + + | SODIUM, | 141 | 136 - 145 | [facility] | [...] + + + | TOTAL CO2, | 26 | 21 - 32 mmol/L | [facility] | | | PLASMA | | | LABORATORY | | | (LAB) | | | SERVICES, | | | | | | CORE | | + +---------+ + + + | CALCIUM, | 8.7 | 8.6 - 10.2 | [facility] | | | PLASMA | | mg/dL | LABORATORY | | | (LAB) | | | SERVICES, | | | | | | CORE | | + +---------+ + + + | ANION GAP | 10 | 4 - 11 mmol/L | [facility] | | | | [...] | + + + + + | [facility] | [address] | [place] [address] | | | SERVICES, CORE | [address] | | | + + + + + CAPILLARY BLOOD GLUCOSE (NO CHG), POC (01/08/2013 6:33 PM PST) + +---------+ + + + | Component [...] [facility] | [address] | [place], [place] | | | [facility] | [address] | [address] | | | TESTS | | | | + + + + + ABG SOR, POC (01/08/2013 5:36 PM PST) + + + + + + | Component | Value | Ref Range | Performed | Pathologist | | | | | At | Signature | + + + + + + | OSMOLALITY | 293.0 | 275 - 295 | [facility] - | | | ARTERIAL, | | mmol/kg | [facility] | | | POC | | | [facility] | | | | | | OF CARE | | | | | | TESTS | | + + + + + + | PH | 7.29 (L) | 7.37 - 7.44 | [facility] - | | | ARTERIAL, | | | [facility] | | | POC | | | [facility] | | | | | | OF CARE | | | | | | TESTS | | + + + + + + | PO2 | 256 (H) | 72 - 104 mmHg | [facility] - | | | ARTERIAL, | | | [facility] | | | POC | | | [facility] | | | | | | OF CARE | | | | | | TESTS | | + + + + + + | PCO2 | 54 (H) | 32 - 43 mmHg | [facility] - | | | ARTERIAL, | | | [facility] | | | POC | | | [facility] | | | | | | OF CARE | | | | | | TESTS | | + + + + + + | TOTAL | 13.0 (L) | 13.5 - 17.5 | [facility] - | | | HEMOGLOBIN, | | g/dL | [facility] | | | POC | | | [facility] | | | | | | OF CARE | | | | | | TESTS | | + + + + + + | O2 SAT | 99.9 (H) | 92.0 - 98.0 % | [...] + + + + | CARBOXYHEMO | 1.0 | 0.0 - 1.5 % | [facility] - | | | GLOBIN, POC | | | [facility] | | | | | | [facility] | | | | | | OF CARE | | | | | | TESTS | | + + + + + + | DEOXYHEMOGL | 0.1 | | [facility] - | | | OBIN, POC | | | [facility] | | | | | | [facility] | | | | | | OF CARE | | | | | | TESTS | | + + + + + + | METHEMOGLOB | 0.5 | 0.0 - 1.9 % | [facility] - | | | IN, POC | | | [facility] | | | | | | [facility] | | | | | | OF CARE | | | | | | TESTS | | + + + + + + | HEMATOCRIT, | 39.7 (L) | 41.0 - 53.0 % | [facility] - | | | POC | | | [facility] | | | | | | [facility] | | | | | | OF CARE | | | | | | TESTS | | + + + + + + | POTASSIUM, | 3.6 | 3.4 - 5.0 | [facility] - | | | POC | | mmol/L | [facility] | | | | | | [facility] | | | | | | OF CARE | | | | | | TESTS | | + + + + + + | SODIUM, POC | 142 | 134 - 143 | [facility] - | | | | | mmol/L | [facility] | | | | | | [facility] | | | | | | OF CARE | | | | | | TESTS | | + + + + + + | JOS | 1.17 | 1.14 - 1.32 | [facility] - | | | IONIZED CA, | | mmol/L | [facility] | | | POC | | | [facility] | | | | | | OF CARE | | | | | | TESTS | | + + + + + + | CHLORIDE, | 106 | 97 - 108 mmol/L | [facility] - | | | POC | | | [facility] | | | | | | [facility]INT | | | | | | OF CARE | | | | | | TESTS | | + + + + + + | GLUCOSE, | 165 (H) | 60 - 99 mg/dL | [facility] - | | | POC | | | [facility] | | | | | | [facility] | | | | | | OF CARE | | | | | | TESTS | | + + + + + + | HCO3 | 25.6 | 21 - 28 mmol/L | [facility] - | | | ARTERIAL, | | | [facility] | | | POC | | | [facility] | | | | | | OF CARE | | | | | | TESTS | | + + + + + + | BASE EXCESS | -1.0 | | [facility] - | | | ARTERIAL, | | | [facility] | | | POC | | | [facility], [place] | | | | | | OF CARE | | | | | | TESTS | | + + + + + + | LACTATE POC | 1.2 | 0.5 - 1.6 | [facility] - [...] + | [facility] | [address] | [place], [place] | | | [facility] | [address] | [address] | | | TESTS | | | | + + + + + LACTATE (ART), POC SOR (01/08/2013 4:32 PM PST) + +-------+ + + + | Component | Value | Ref Range | Performed | Pathologist | | | | | At | Signature | + +-------+ + + + | LACTATE POC | 1.1 | 0.5 - 1.6 | [facility] [...] [facility] | [address] | [place], [place] | | | [facility] | [address] | [address] | | | TESTS | | | | + + + + + SODIUM (ART), POC SOR (01/08/2013 4:32 PM PST) + +-------+ + + + | Component | Value | Ref Range | Performed | Pathologist | | | | | At | Signature | + +-------+ + + + | SODIUM, POC | 140 | 134 - 143 | [facility] [...] | [facility] | [address] | [place], [place] | | | [facility] OF [facility] | [facility] | [address] | | | TESTS | | | | + + + + + POTASSIUM (ART)MIKI (01/08/2013 4:32 PM PST) + +-------+ + + + | Component [...] | + + + + + | [facility] | [address] | [place], [place] | | | [facility] OF [place] | [address] | [address] | | | TESTS | | | | + + + + + GLUCOSE (ART), POC SOR (01/08/2013 4:32 PM PST) + +---------+ + + + | Component | Value | Ref Range | Performed | Pathologist | | | | | At | Signature | + +---------+ + + + | GLUCOSE, | 187 (H) | 60 - 99 mg/dL | [...] | + + + + + | [facility] | [address] | [place], [place] | | | [facility] OF [facility] | [facility] | [address] | | | TESTS | | | | + + + + + CHLORIDE (ART)MIKI SOR (01/08/2013 4:32 PM PST) + +-------+ + + + | Component | Value | Ref Range | Performed | Pathologist | | | | | At | Signature | + +-------+ + + + | CHLORIDE, | 106 | 97 - 108 mmol/L | [facility] - | | | POC | | [...] | [facility] | [address] | [place], [place] | | | [place] OF CARE | [address] | [address] | | | TESTS | | | | + + + + + CALCIUM (ART), MIKI PALACIO (01/08/2013 4:32 PM PST) + +-------+ + + + | Component [...] | + + + + + | [facility] | [address] | [place], [place] | | | BRIANNA CONNOLLY OF [facility] | [address] | [address] | | | TESTS | | | | + + + + + HEMOGLOBIN (ART), POC SOR (01/08/2013 4:32 PM PST) + + + + + + | Component | Value | Ref Range | Performed | Pathologist | | | | | At | Signature | + + + + + + | TOTAL | 12.4 (L) | 13.5 - 17.5 | [facility] [...] + + + + | CARBOXYHEMO | 1.1 | 0.0 - 1.5 % | [facility] | | | GLOBIN, POC | | | [place] | | | | | | BRIANNA CONNOLLY | | | | | | OF CARE | | | | | | TESTS | | + + + + + + | METHEMOGLOB | 0.5 | 0.0 - 1.9 % | [facility] | | | IN, POC | | | [place] | | | | | | [place] [place] | | | | | | OF CARE | | | | | | TESTS | | + + + + + + | HEMATOCRIT, | 37.9 (L) | 41.0 - 53.0 % | [...] + | [facility] | [address] | [place], [place] | | | [facility]NA [facility] OF CARE | [address] | [address] | | | TESTS | | | | + + + + + ARTERIAL BLOOD GAS, POC (01/08/2013 4:32 PM PST) + + + + + + | Component | Value | Ref Range | Performed | Pathologist | | | | | At | Signature | + + + + + + | PH | 7.41 | 7.37 - 7.44 | [facility] | | | ARTERIAL, | | | [place] | | | POC | | | BRIANNA CONNOLLY | | | | | | OF CARE | | | | | | TESTS | | + + + + + + | PO2 | 284 (H) | 72 - 104 mmHg | [facility] | | | ARTERIAL, | | | [place] | | | POC | | | [place]ATHLE[facility], POINT | | | | | | OF CARE | | | | | | TESTS | | + + + + + + | PCO2 | 40 | 32 - 43 mmHg | [facility] | | | ARTERIAL, | | | [place] | | | POC | | | [facility] | | | | | | OF CARE | | | | | | TESTS | | + + + + + + | O2 SAT | 100.3 (H) | 92.0 - 98.0 % | [facility] | | | ARTERIAL, | | | [place] | | | POC | | | [place] | | | | | | OF CARE | | | | | | TESTS | | + + + + + + | HCO3 | 25.3 | 21 - 28 mmol/L | [facility] [...] | [facility] | [address] | [place], [place] | | | B[facility]NA [facility] OF CARE | [address] | [address] | | | TESTS | | | | + + + + + MIKI ELI (01/08/2013 3:11 PM PST) + + + + + + | Component | Value | Ref Range | Performed | Pathologist | | | | | At | Signature | + + + + + + | OSMOLALITY | 288.2 | 275 - 295 | [facility] | | | ARTERIAL, | | mmol/kg | [place] | | | POC | | | [place] [place] | | | | | | OF CARE | | | | | | TESTS | | + + + + + + | PH | 7.40 | 7.37 - 7.44 | [facility] | | | ARTERIAL, | | | [facility] | | | POC | | | [place] [place] | | | | | | OF CARE | | | | | | TESTS | | + + + + + + | PO2 | 144 (H) | 72 - 104 mmHg | [facility] | | | ARTERIAL, | | | [place] | | | POC | | | [place] [place] | | | | | | OF CARE | | | | | | TESTS | | + + + + + + | PCO2 | 43 | 32 - 43 mmHg | [facility] | | | ARTERIAL, | | | [place] | | | POC | | | [place] [place] | | | | | | OF CARE | | | | | | TESTS | | + + + + + + | TOTAL | 12.1 (L) | 13.5 - 17.5 | [facility] | | | HEMOGLOBIN, | | g/dL | [place] | | | POC | | | BRIANNA CONNOLLY | | | | | | OF CARE | | | | | | TESTS | | + + + + + + | O2 SAT | 99.6 (H) | 92.0 - 98.0 % | [facility] | | | ARTERIAL, | | | [place] | | | POC | | | BRIANNA CONNOLLY | | | | | | OF CARE | | | | | | TESTS | | + + + + + + | OXYHEMOGLOB | 98.2 | 94.0 - 100 % | [facility] | | | IN, POC | | | [place] | | | | | | BRIANNA CONNOLLY | | | | | | OF CARE | | | | | | TESTS | | + + + + + + | CARBOXYHEMO | 1.1 | 0.0 - 1.5 % | [facility] | | | GLOBIN, POC | | | [place] | | | | | | BRIANNA CONNOLLY | | | | | | OF CARE | | | | | | TESTS | | + + + + + + | DEOXYHEMOGL | 0.4 | | [facility] | | | OBIN, POC | | | [facility] | | | | | | BRIANNA CONNOLLY | | | | | | OF CARE | | | | | | TESTS | | + + + + + + | METHEMOGLOB | 0.3 | 0.0 - 1.9 % | [facility] | | | IN, POC | | | [facility] | | | | | | [place] [place] | | | | | | OF CARE | | | | | | TESTS | | + + + + + + | HEMATOCRIT, | 37.0 (L) | 41.0 - 53.0 % | [facility] | | | POC | | | [place] | | | | | | BRIANNA CONNOLLY | | | | | | OF CARE | | | | | | TESTS | | + + + + + + | POTASSIUM, | 3.8 | 3.4 - 5.0 | [facility] | | | POC | | mmol/L | [place] | | | | | | BRIANNA CONNOLLY | | | | | | OF CARE | | | | | | TESTS | | + + + + + + | SODIUM, POC | 140 | 134 - 143 | [facility] | | | | | mmol/L | [place] | | | | | | BRIANNA CONNOLLY | | | | | | OF CARE | | | | | | TESTS | | + + + + + + | JOS | 1.16 | 1.14 - 1.32 | [facility] | | | IONIZED CA, | | mmol/L | [facility] | | | POC | | | BRIANNA CONNOLLY | | | | | | OF CARE | | | | | | TESTS | | + + + + + + | CHLORIDE, | 106 | 97 - 108 mmol/L | [facility] | | | POC | | | [place] | | | | | | BRIANNA CONNOLLY | | | | | | OF CARE | | | | | | TESTS | | + + + + + + | GLUCOSE, | 151 (H) | 60 - 99 mg/dL | [facility] | | | POC | | | [place] | | | | | | BRIANNA CONNOLLY | | | | | | OF CARE | | | | | | TESTS | | + + + + + + | HCO3 | 26.6 | 21 - 28 mmol/L | [facility] | | | ARTERIAL, | | | [place] | | | POC | | | BRIANNA CONNOLLY | | | | | | OF CARE | | | | | | TESTS | | + + + + + + | BASE EXCESS | 1.9 | | [facility] - | | | ARTERIAL, | | | [place] | | | POC | | | BRIANNA CONNOLLY | | | | | | OF CARE | | | | | | TESTS | | + + + + + + | LACTATE POC | 1.2 | 0.5 - 1.6 | [facility] [...] | [facility] | [address] | [place], [place] | | | BRIANNA CONNOLLY OF [facility] | [address] | [address] | | | TESTS | | | | + + + + + ABO & RH TYPE (01/08/2013 11:22 AM PST) + + + + + + | [...] [facility] | [address] | [place] [address] | | | SERVICES, | [address] | | | | TRANSFUSION MEDICINE | | | | + + + + + ANTIBODY SCREEN (01/08/2013 11:22 AM PST) + + + + + + | [...] | + + + + + | [facility] | [address] | [place] [address] | | | SERVICES, | [address] | | | | TRANSFUSION MEDICINE | | | | + + + + + CAPILLARY BLOOD GLUCOSE (NO CHG), POC (01/08/2013 11:10 AM PST) + +---------+ + + + | Component | Value | Ref Range | Performed | Pathologist | | | | | At | Signature | + +---------+ + + + | BLOOD | 157 (H) | 60 - 99 mg/dL | [...] | [facility] | [address] | [place], [place] | | | [facility] CARE | [address] | [address] | | | TESTS | | | | + + + + + SURGICAL PATHOLOGY (01/08/2013) + + + + + + | Component | Value | Ref Range | Performed | Pathologist | | | | | At | Signature | + + + + + + | SURGICAL | SOURCE OF SPECIMEN:A | | [facility] | | | PATHOLOGY | Midline fascial | | DEPARTMENT | | | | calcificationSOURCE OF | | OF | | | | SPECIMEN:B Lateral | | PATHOLOGY | | | | stomach Final | | | | | | Pathologic Diagnosis:A: | | | | | | Midline, fascial | | | | | | calcification, excision: | | | | | | - Benign bone and | | | | | | bone marrow B: | | | | | | Lateral stomach, | | | | | | excision: - | | | | | | Gastric wall with no | | | | | | diagnostic abnormality | | | | | | Case seen | | | | | | by:Darlene Cervantes, | | | | | | M.DYanet/Surgical Pathology | | | | | | Fabio Wu | | | | | | Maggie Levy, | | | | | | Ph.D./PathologistT:01/13/ | | | | | | 13/sg Clinical | | | | | | History:The patient is a | | | | | | 47-year-old male with | | | | | | super/supreme morbid | | | | | | obesity witha preop BMI | | | | | | of 81, here for | | | | | | bariatric surgery. | | | | | | Gross | | | | | | Description:Received are | | | | | | 2 specimens in formalin | | | | | | in containers labeled | | | | | | with the patientname | | | | | | (initials SUNNY) and: | | | | | | A: Midline fascial | | | | | | calcification: | | | | | | Received is a hard, | | | | | | jagged, | | | | | | irregularlyshaped piece | | | | | | of white-pink and red | | | | | | tissue measuring 4 x 1.3 | | | | | | x 0.8 cm. Nomasses | | | | | | are noted. A | | | | | | manufacturers service representative section | | | | | | is submitted. B: | | | | | | Lateral stomach: | | | | | | Received is a | | | | | | gastrectomy specimen | | | | | | measuring 20 x 7 x3 cm. | | | | | | There is a staple line | | | | | | along the side of the | | | | | | specimen with a lengthof | | | | | | 21 cm. The serosal | | | | | | surface is smooth, pink, | | | | | | and unremarkable. | | | | | | Thestaple line is | | | | | | removed and the stomach | | | | | | is opened revealing a | | | | | | moderateamount of blood | | | | | | and irregularly folded, | | | | | | mccullough-pink mucosa with | | | | | | multiple focalareas of | | | | | | possible hemorrhage. | | | | | | No masses or | | | | | | ulcerations are noted. | | | | | | Arepresentative | | | | | | section is submitted. | | | | | | Cassette Index:A: | | | | | | Midline fascial | | | | | | calcification:A1, | | | | | | decalcification | | | | | | performedB: Lateral | | | | | | stomach:[id number]:tp My | | | | | | [...] Diagnostician: | | | | | | Arelis L Mildred M.D. | | | | | | Ph.D.PathologistElectron | | | | | | vaisnhavi Signed 01/14/2013 | | | | | | 7:05PM | | | | + + + + + + + + | Specimen | + + | | + + + + + + + | Performing | Address | City/State/Zipcode | Phone Number | | Organization | | | | + + + + + | [facility] | [address] | [place] [address] | | | PATHOLOGY | [address] | | | + + + + + documented in this encounter Visit Diagnoses + + | Diagnosis | + + | Morbid obesity (HCC) Morbid obesity | + + documented in this encounter
--- OUTSIDE RECORDS SUMMARY | ~2020-04-13 | XMS | Encounter Summary ---
Demographics + + + | Address | [address] | | | [place] [address] | + + + | Home Phone | | + + + | Preferred Language | Unknown | + + + | Marital Status | | + + + | Scientologist Affiliation | CHR | + + + | Race | White | + + + | Ethnic Group | Not or | + + + Author + + + | Author | [facility] | + + + | Organization | [facility] | + + + | Address | Unknown | + + + | Phone | Unavailable | + + + Support + + + + + | Name | Relationship | Address | Phone | + + + + + | Tico Burns | ECON | [address] | | | | | [place], [place] | | | | | [address] | | + + + + + Care Team Providers + +------+ + | Care Air Crew Officer Name | Role | Phone | [...] | Chris | | | | | Morbid | MD Jesus | MD Jesus | | | | | obesity | [address] | [address] | | | | | ([facility]) | [address] | [address] | | | | | Panniculitis | Claudette Wright | [address] | | | | | , | [place], [place] | [place] | | | | | unspecified | [address] | [address] | | | | | site | Phone: | Phone: | | | | | Procedures | [phone] | [phone] | | | | | REQUEST TO | Fax: | Fax: | | | | | SURGERY | | | | | | | [facility] | | | | | | | OR EXC SKIN | | | | | | | ABD | | | +--------+--------+ + + + + Reason for Visit + + + | Reason | Comments | + + + | Follow-up visit | | + + + Office Visit - E/M Services (Routine) +--------+--------+ + + + + | Status | Reason | Specialty | Diagnoses / | Referred By | Referred To | | | | | Procedures | Contact | Contact | +--------+--------+ + + + + | Closed | | Surgery | Diagnoses | Shayne | Bar | | | | | Morbid | Moe Fowler, | [facility] | | | | | obesity | MD [address] [facility] [address] | | | | | (HCC) Type | [place] | [address] | | | | | II or | [address] | Mailcode: | | | | | unspecified | [place], | [facility] | | | | | type | [place] [address] | Health and | | | | | diabetes | Phone: | Healing, | | | | | mellitus | [phone] | [address] | | | | | without | Fax: | [place], [place] | | | | | mention of | [phone] | [address] | | | | | complication | | Phone: | | | | | , not stated | | [phone] | | | | | as | | Fax: | | | | | uncontrolled | | [phone] | +--------+--------+ + + + + Encounter Details +--------+---------+ + + + | Date | Type | Department | Care Team | Description | +--------+---------+ + + + | 11/21/ | Office | [facility] | Jesus Perez, | Morbid obesity (HCC) | | 2013 | Visit | [facility] [address] | [address] | (Primary Dx); | | | | Renée Putnam | [address] | [place] | | | | Mailcode: Center | [place], [place] | | | | | [facility] and | [address] | | | | | [facility] [address] | [phone] | | | | | [place], [place] | | | | | | [address] | | | | | | [phone] | | | +--------+---------+ + + + [...] + + + | Blood Pressure | 156/84 | 11/21/2012 11:09 AM | | | | | PST | | + + + + + | Pulse | 93 | 11/21/2012 11:09 AM | | | | | PST | | + + + + + | Temperature | 36.6 C (97.9 F) | 11/21/2012 11:09 AM | | | | | PST | | + + + + + | Respiratory Rate | 18 | 11/21/2012 11:09 AM | | | | | PST | | + + + + + | Oxygen Saturation | - | - | | + + + + + | Inhaled Oxygen | - | - | | | Concentration | | | | + + + + + | Weight | 257.2 kg (567 lb) | 11/21/2012 11:09 AM | | | | | PST | | + + + + + | Height | 177.8 cm (5' 10") | 11/21/2012 11:09 AM | | | | | PST | | + + + + + | Body Mass Index | 81.36 | 11/21/2012 11:09 AM | | | | | PST | | + + + + + documented in this encounter Patient Instructions Patient Instructions Laverne Rogers RN - 11/21/2012 11:37 AM PSTPREOP INSTRUCTIONS CARLEE Wilkins SURGERY INFORMATION [facility] General Surgery Office Toll-free: ext [phone] Surgery Date: 12/27/2012 Procedure: panniculectomy Surgeon Name: Dr. Logan Perez DIRECTIONS FOR SURGERY DIET Nothing to eat [...] the surgery. Please see the list below, dl morris has a list of products that contain [...] WASH YOUR FACE OR HAIR WITH THIS SOLU TION After your shower or bath do not [...] actual loss of tissue. WHEN TO ARRIVE Check-in times for Hospital Admissions are not available until the day prior to surgery. S omeone will contact you with your check in time. If you do not hear from anyone by 7:00 PM please call the General Surgery Office at [phone] for [id number]. PARKING Parking for patients and visitors is available in the [facility] Parking structure located across from the emergency department. Patient parking is available on level 1 and 3. Mete red parking is available on the top level. CHECKING IN FOR SURGERY For Hospital Admission (in-patient) you will check in on the day of surgery at the Admittin g Department located on the 9th floor of [facility] TRANSPORTATION You will require transportation home on the day of discharge. Pain medications and physica l activity restrictions may limit your ability to drive safely. CANCELLING YOUR PROCEDURE Please notify the general surgery office at [phone] as soon as possible should you nee [...] prior to your surgery. PRODUCTS CONTAINING ASPIRIN [place], Anacin, Anexsia with Codeine, Andynos, Aspirin, Aspirin suppositories, Ascrip tin, Aspergum, Axotal, B-A-C, Baby Aspirin, Bekah, BC Powder, Bexophene, Buffaprin, Bufferin , Buffinol, Cama-Arthritis Strength, Congespirin, Sipsey, Coricidin, Damason, Darvon, Dristan, Terra-Gesic, Digel, Dolprin #3 Tablets, Donatab, Doxaphene, Duragesic, Easprin, Ecotrin, Emag rin Forte, Emiprin, Emprazil, Equagesic, Equazine M, Excedrin, Fiogesic, Fiorgen PH, Fiorice t, Fiorinal, 4-Way Cold Tablet Gemnisyn, Indocin, Liquprin, Lortab ASA, Magnaprin, Marnal, Meprobamate, Midol, Momentum, N orgesic, [place], Orphengesic, Pabalate, P-A-C, Percodan, Presalin, Robaxasil, Roxiprin, Sabino eto, Salocol SK-65 Compound, Sine-Aid, Sine-Off,, [place], Supac, Talwin Compound, Trigesic, Tolectin , Traiminicin, Vanquish, ZORprin, Zomax PRODUCTS CONTAINING IBUPROFEN Advil, Aleve, Haltran, Medipren, Midol, Motrin, Naproxyn, Nuprin, Rufen OTHER PRODUCTS WHICH MAY PROMOTE BLEEDING Vitamin E, Gingko Biloba, Marine Fatty Acids, [place]-3 Fish Oil Supplements documented in this encounter Progress Notes Jesus Perez MD - 11/26/2012 9:30 AM PSTFormatting of this note might be different f rom the original. PRE-PROCEDURE HISTORY AND PHYSICAL Date of Admission: tba HISTORY: 47 year old man with a BMI=81 and comorbidities of hypertension, sleep apnea and d iabetes. He also has two large pannuses one of which engulfs his penis and scrotum. He is ambulatory but tires very easily. He is employed and works steadily. He underwent an attemp lou gastric bypass about two years ago but the surgeon was unable to perform it and took out a meter of small intestine instead. CURRENT PROBLEM LIST: Patient Active Problem List Diagnoses Date Noted Thyroid cancer 08/21/2012 Overview Note: Stage1 papillary thyroid cancer. Thyroglobulin antibodies Morbid obesity 06/18/2012 Depression 06/18/2012 BMI 70 and over, adult 06/18/2012 Nephrolithiasis 06/18/2012 DM (diabetes mellitus) 06/18/2012 Hypertension 06/18/2012 Hyperlipidemia 06/18/2012 Panniculitis 06/18/2012 Edema 06/18/2012 Past Medical History Diagnosis Date BP (high blood pressure) Numbness 2007 hands and feet High cholesterol Leg sore Depressed 2010 Diabetes mellitus 2006 Thyroid disease 2010 Cancer 2010 Past Surgical History Procedure Date Thyroid removal Gastric bypass attempted MEDICATIONS: Current Outpatient Prescriptions Medication Aspirin 81 mg Oral Tablet cloNIDine 0.1 mg Oral Tablet FLUoxetine (PROZAC) 20 mg Oral Capsule insulin lispro (HUMALOG) 100 unit/mL Subcutaneous Solution levothyroxine (SYNTHROID) 175 mcg Oral Tablet LOSARTAN/HYDROCHLOROTHIAZIDE (HYZAAR ORAL) metFORMIN SR (GLUCOPHAGE XR) 500 mg Oral Tablet Extended Release 24 hr metoprolol tartrate 100 mg Oral Tablet phentermine 37.5 mg Oral tablet,disintegrating VITAMIN A/VITAMIN D2 (VITAMIN A & ERGOCALCIFEROL,D2, ORAL) Allergies Allergen Reactions Codeine Rash Rash all over arms FAMILY HISTORY: Family History Problem Relation Arthritis Father REVIEW OF SYSTEMS: All other systems negative except as noted. PHYSICAL EXAM: VITALS: Visit Vitals Item Reading BP 156/84 Pulse 93 Temp (Src) 36.6 C (97.9 F) (Oral) RR 18 Ht 1.778 m (5' 10") Wt 257.19 kg (567 lb) BMI 81.36 kg/(m^2) General: healthy, alert and cooperative HEENT: PERRLA, EOMI Neck: negative. Cardiac: Rate, rhythm, regular, no murmur, gallop or bruits. No peripheral edema. Extremities: negative. Abdomen: no hepatomegaly, nontender to palpation, no masses, aorta not grossly enlarged and large midline scar, and two large pannuses (see photos) Respiratory: negative Genitourinary: Not assessed Musculoskeletal: negative Skin: Skin color, texture, turgor normal. No rashes or lesions. Psych: no problems noted Provisional Diagnosis: morbid obesity with two large pannuses Planned Course of Action: pt will need a bariatric procedure. I would prefer to perform a sleeve gastrectomy and follow several months later with resection of the pannuses PARQ: A PARQ session was held, additional questions with discussion were completed. documented in this encounter Plan of Treatment Not on filedocumented as of this encounter Visit Diagnoses + + | Diagnosis | + + | Morbid obesity (HCC) - Primary Morbid obesity | + + | Panniculitis Panniculitis, unspecified site | + + documented in this encounter
--- OUTSIDE RECORDS SUMMARY | ~2020-04-13 | XMS | Encounter Summary ---
Demographics + + + | Address | [address] | | | [place] [address] | + + + | Home Phone | | + + + | Preferred Language | Unknown | + + + | Marital Status | | + + + | Restorationist Affiliation | CHR | + + + [...] + | Tico Burns | ECON | [address] | | | | | [place], [place] | | | | | [address] | | + + + + + Care Team Providers + +------+ + | Care Sound Engineer Audio Control Name | Role | Phone | + +------+ + | Moe Bella MD | PCP | | + +------+ + Reason for Visit + + + | Reason | Comments | + + + | New Patient Visit | | + + + | Weakness | | + + + Encounter Details +--------+ + + + + | Date | Type | Department | Care Team | Description | +--------+ + + + + | 04/12/ | Video/TeleH | Orthopaedics at | Marshall Guzman | New Patient Visit; | | 2020 | [facility] | [facility] | Domingo Parry MD [address] | Weakness | | | uled | and Healing [address] | | | | | [address] Mailcode: | [place], [place] | | | | | [facility] | [address] | | | | | [facility], | [phone] | | | | | [facility] | | | | | | Floor [place], [place] | | | | | | [address] | | | | | | [phone] | | | +--------+ + + + [...] documented as of this encounter Progress Notes Marshall Guzman MD - 04/12/2020 2:50 PM PDTFormatting of this note might be dif ferent from the original. Referral Source: Moe Bella MD CC: Low back, buttock and thigh pain and lower extremity weakness HPI: Gerard Burns is a 55 y.o. male. He presents with a 5 month history of remittent low back, buttock and thigh pain, slowly jimenez bsided in February 2020 after a couple of PT sessions, with residual right low back and buttock pain and numbness and weakness, but has been bed ridden for last 2 months. Pain described a s aching and burning in character and 2 up to 3/10 daily, sometimes 7-8/10 2-3 times a week in intensity. The symptoms are worse on right side and radiates down posterolateral right b uttock. The pain is worse with no specific activity or position. He has difficulty with gait and has been non-ambulatory for last 2 months There is associa lou remittent tingling and numbness back of right buttock and thigh to back of right knee an d from both ankles into whole right foot top of left foot into all lesser toes in last 3 wee ks. There is kevin weakness and clumsiness of all toes, feet and ankles more than both knees and both hips. No loss of bowel or bladder control. Past treatment includes home health PT for 2 weeks with temporary to poor result. Current pain medications include Tylelnol and ibupofen as needed, gabapentin 1800 mg daily. There is history of depression, currently controlled without medication c/o PCP; no other p sychiatric diagnosis. Prior surgery to the spine includes C4-6 fusion 2016. There is no night pain, fever, chills nor recent unexplained weight loss. PMH: includes diabetes type 2 poorly controlled, hypertension, dyslipidemia, sleep apnea. D enies chronic heart or lung disease. Please see the intake form which I have reviewed for fu ll details. PSH: s/p gastric sleeve surgery 2014, 584 lbs down to under 400 lbs; s/p total thyroidectom y and JEONG for thyroid cancer. Please see the intake form which I have reviewed for full det ails. Medications: Current Outpatient Medications: Aspirin 81 mg Oral Tablet, Take [...] of Vitamin B12 Deficiency, Disp: , Rfl: FLUoxetine (PROZAC) 20 mg Oral Capsule, Take 20 mg by mouth two times daily., Disp: , Rfl: gabapentin 300 mg oral capsule, Take 300 mg by mouth three times daily., Disp: , Rfl: insulin glargine [...] DIABETES MELLITUS, Disp: 10 mL, Rfl: 1 LOSARTAN/HYDROCHLOROTHIAZIDE (HYZAAR ORAL), Take by mouth., Disp: , Rfl: metFORMIN SR 500 mg Oral tablet extended release 24 hr, Take 4 Tabs by mouth once daily. Ad software reliability engineer with evening meal. Indications: TYPE 2 DIABETES MELLITUS, Disp: 100 Tab, Rfl: 1 metoprolol tartrate 100 mg Oral Tablet, Take 100 mg by mouth two times daily. , Disp: , Rf l: multivitamin Oral capsule, Take 1 Cap by mouth once daily. Indications: VITAMIN DEFICIENCY, Disp: 30 Cap, Rfl: 2 nystatin 100,000 unit/gram topical powder, Apply to affected area two times daily. Apply t o candidal lesions until lesions have healed. Indications: skin infection, Disp: 56.7 g, Rf l: 3 pediatric multivitamin chewable (CHILDRENS CHEWABLE VITAMINS) Oral tablet, chewable, Take 1 Tab by mouth two times daily., Disp: 100 Tab, Rfl: 12 polyethylene glycol 17 gram/dose Oral Powder, Take 17 g by mouth once daily as needed (No B M in past 3 days). Indications: CONSTIPATION, Disp: 527 g, Rfl: 1 ursodiol 300 mg Oral capsule, Take 1 Cap by mouth two times daily. Start Actigall 2 weeks a fter surgery. 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 Currently ws a working from home 32 hour. Weekly physical activity regimen: otherwise sedentary. Tobacco history is none. Alcohol history is 1-2 drinks every 6 months. Family Hx: I reviewed and noncontributory. ROS: Please see the intake form which I have reviewed for full details. Physical Exam: General: The patient is a well-formed, well nourished individual in no acute distress who appears of stated age. Affect and mood are normal. Patient is normocephalic. Breathing is normal. Skin is normal color. Non-ambulatory. Vital Signs: There were no vitals taken for this visit. Musculoskeletal: No real gross motion observed over both lower extremities except for some left knee flexion-extension with gravity eliminated. Patient unable to actively internally-e xternally rotate, abduct-adduct nor flex-extend thighs, nor actively flex-extend right knee, nor actively flex-extend both ankles and all toes. Radiographs independently reviewed: MRI of LS spine from outside radiology 12/23/2019 show multilevel degenerative ch anges with disk dessication & height loss, posterolateral disk bulging, vertebral endplate o steophyte formation worst at L1-2 > L2-3 and L5-S1 > L3-4; florid facet arthrosis & hypertro phy worst at L4-5 > L1-4 > L5-S1; no other significant central spinal, lateral recess or for aminal stenosis . Assessment/Plan: 55 year old male with improving chronic lower extremity pain but still w ith profound numbness and weakness of both lower extremities, consider diabetic amyotrophy v s intrinsic neurologic vs cervical/ thoracic stenosis etiologies; poorly controlled type 2 d faith I went over my history, exam and imaging findings with Gerard today and discussed the natura l history and approach to management of improving chronic lower extremity pain but still wit h profound numbness and weakness of both lower extremities, consider diabetic amyotrophy vs intrinsic neurologic vs cervical/ thoracic stenosis etiologies; poorly controlled type 2 emerald mary. We discussed the role of activity and lifestyle modification, pain relief modalities, proper hip & back mechanics, PT and regular conditioning exercises, judicious short-term us e of pain-relievers and anti-inflammatories, spinal injections and surgery in relation to lo wer extremity pain, numness and weakness. Gerard 's condition is chronic, complex, multifactorial and would benefit from a multidiscip linary approach. Patient's LS MRI is non-concordant with his clinical presentation. 1. Advised to discuss with with PCP: referral to local neurologist for further evaluation, possible EMG NCS of both lower extremities and treatment. Consider cervical and thoracic MRI as deemed indicated after neurology evaluation. 2. Return video or phone visit as needed pending outcome of neurology evaluation or sooner as needed. 3. Pain management and long-term follow-up c/o PCP. Please feel free to contact us should you or Gerard have any further spine questions or conc erns. I spent 48 minutes with the patient. Greater than 50% of the time was spent counseling the patient regarding improving chronic lower extremity pain but still with profound numbness a nd weakness of both lower extremities, consider diabetic amyotrophy vs intrinsic neurologic vs cervical/ thoracic stenosis etiologies; poorly controlled type 2 diabetes. Patient agrees to a video encounter for today's visit. They understand they may be responsi ble for the balance after insurance processes the claim. The visit took place via video with the provider located at the distant site of [facility] at the originating site of home and were in the state of [place] at the time of the video visit. The names of all persons participating in the video visit an d their roles are: Gerard Burns, patient, and Marshall Guzman MD, physician. Time spent on the call: 48 min. The patients encounter was accomplished via a video call today due to COVID-19 precautionar y measures to limit the patient's unnecessary exposure. 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
--- OUTSIDE RECORDS SUMMARY | ~2020-04-13 | XMS | Encounter Summary ---
Demographics + + + | Address | [address] | | | [place] [address] | + + + | Home Phone | | + + + | Preferred Language | Unknown | + + + | Marital Status | | + + + | Holiness Affiliation | CHR | + + + | Race | White | + + + | Ethnic Group | Not or | + + + Author + + + | Author | [facility] | + + + | Organization | [facility] | + + + | Address | Unknown | + + + | Phone | Unavailable | + + + Support + + + + + | Name | Relationship | Address | Phone | + + + + + | Tico Burns | ECON | [address] | | | | | [place], [place] | | | | | [address] | | + + + + + Care Team Providers + +------+ + | Care Senior Paralegal Name | Role | Phone | + +------+ + | Moe Bella MD | PCP | | + +------+ + Encounter Details +--------+ + + + + | Date | Type | Department | Care Team | Description | +--------+ + + + + | 04/25/ | [place] | Digestive Health | Violetta Byers, | Bariatric surgery | | 2012 | | Center at [address] | [address] | status (Primary Dx) | | | | [address] | | | | | Mailcode: Center | [place], [place] | | | | | for Health and | [address] | | | | | [place] [address] | [phone] | | | | | [place], [place] | | | | | | [address] | | | | | | [phone] | | | +--------+ + + + [...] + | Diagnosis | + + | Bariatric surgery status - Primary | + + documented in this encounter"
--- OUTSIDE RECORDS SUMMARY | ~2020-04-13 | XMS | Encounter Summary ---
Demographics + + + | Address | [address] | | | [place] [address] | + + + | Home Phone [...] + | Tico Burns | ECON | [address] | | | | | [place], [place] | | | | | [address] | | + + + + + Care Team Providers + +------+ + | Care Finish Saw Operator Name | Role | Phone | + +------+ + | Moe Bella MD | PCP | | + +------+ + Encounter Details +--------+ + + + + | Date | Type | Department | Care Team | Description | +--------+ + + + + | 09/12/ | Abstract | Digestive Health | Jesus Perez, | | | 2012 | | [place] at [facility] [address] | [address] | | | | | [address] | [address] | | | | | Mailcode: Center | [place], [place] | | | | | [facility] and | [address] | | | | | [facility], [place] [address] | [phone] | | | | | [place], [place] | | | | | | [address] | | | | | | [phone] | | | +--------+ + + + [...]
--- OUTSIDE RECORDS SUMMARY | ~2020-04-13 | XMS | Encounter Summary ---
Demographics + + + | Address | [address] | | | [place] [address] | + + + | Home Phone [...] + + + | Author | [facility] | + + + | Organization | [facility] | + + + | Address | Unknown | + + + | Phone | Unavailable | + + + Support + + + + + | Name | Relationship | Address | Phone | + + + + + | Tico Burns | ECON | [address] | | | | | [place], [place] | | | | | [address] | | + + + + + Care Team Providers + +------+ + | Care Animal Tech Name | Role | Phone | + +------+ + | Moe Bella MD | PCP | | + +------+ + Reason for Visit + + + | Reason | Comments | + + + | New patient | | | consultation | | + + + Encounter Details +--------+---------+ + + + | Date | Type | Department | Care Team | Description | +--------+---------+ + + + | 12/26/ | Office | Urology at [facility] | Yahaira Doran MD | Morbid obesity (HCC) | | 2012 | Visit | [address] | | (Primary Dx); | | | | Mailcode: [facility] | | Nephrolithiasis | | | | [facility] | | | | | | and Healing, | | | | | | Building | | | | | | Floor [place], [place] | | | | | | [address] | | | | | | [phone] | | | +--------+---------+ + + + [...] + + + | Blood Pressure | 140/63 | 12/26/2012 12:00 PM | | | | | PST | | + + + + + | Pulse | 72 | 12/26/2012 12:00 PM | | | | | PST [...] + + + + | Weight | 243.9 kg (537 lb | 12/26/2012 12:00 PM | | | | 12.8 oz) | PST | | + + + + + | Height | - | - | | + + + + + | Body Mass Index | 79.42 | 12/26/2012 10:59 AM | | | | | PST | | + + + + + documented in this encounter Progress Notes Keisha Maurer - 12/26/2012 11:59 AM PST Review of Systems Constitutional: Positive for weight loss. Cardiovascular: Positive for leg swelling. Psychiatric/Behavioral: Positive for depression. All other systems reviewed and are negative. Physical Exam Yahaira Stephen MD - 12/26/2012 11:36 AM PST Urology Clinic Initial Visit CC: Evaluation for Oates catheter placement History of Present Illness: Gerard Burns is a 47 y.o. Male with morbid obesity (BMI 81) DM, KARELY, HTN. He is ref erred by Dr. Perez to evaluate for Oates catheter placement during sleeve gastrectomy sche duled 01/09/12. He has two large pannuses, the lower of which engulfs the penis and scrotum, w hich would make catheter placement difficult. He has undergone prior attempted gastric bypass/bariatric surgery with SB resection in 2006 . At that time, he states he weighed less and a catheter was placed without urologic assista nce. Circumcised: Yes Voiding complaints: None; he cannot reach his penis to void and generally stands over the t oilet to void No prior history of voiding difficulty, urinary retention, UTI. He has a history of nephrolithiasis, no recent stone passage. 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 , Disp: , Rfl: cloNIDine 0.1 mg Oral Tablet, Take 0.1 mg by mouth two times daily. , Disp: , Rfl: FLUoxetine (PROZAC) 20 mg Oral Capsule, Take 20 mg by mouth once daily. , Disp: , Rfl: insulin lispro (HUMALOG) 100 unit/mL Subcutaneous Solution, Inject under the skin (SUBC) t hree times daily before meals. , Disp: , Rfl: levothyroxine (SYNTHROID) 175 mcg Oral Tablet, Take 175 mcg by mouth once daily. , Disp: , Rfl: LOSARTAN/HYDROCHLOROTHIAZIDE (HYZAAR ORAL), Take by mouth. , Disp: , Rfl: metFORMIN SR (GLUCOPHAGE XR) 500 mg Oral Tablet Extended Release 24 hr, Take 500 mg by mout h once daily. Administer with evening meal. , Disp: , Rfl: metoprolol tartrate 100 mg Oral Tablet, Take 100 mg by mouth two times daily. , Disp: , Rf l: phentermine 37.5 mg Oral tablet,disintegrating, Take 37.5 mg by mouth once daily., Disp: 30 Tab, Rfl: 0 VITAMIN A/VITAMIN D2 (VITAMIN A & ERGOCALCIFEROL,D2, ORAL), Take by mouth. , Disp: , Rfl: Review of Systems: See attached Physical Exam: BP 140/63 | Pulse 72 | Wt 243.944 kg (537 lb 12.8 oz) General - Well-developed, well-appearing, morbidly obese male Cardiovascular - Regular rate and rhythm, no murmur Pulmonary - Clear to auscultation bilaterally; no wheeze, rales, rhonci Abdomen - Soft, nontender, nondistended; 2 large pannuses, the lower of which completely obscures the penis and scrotum The patient was examined both anterior and posterior standing as well as supine. In the standing position, the scrotum and penile shaft skin are not visible anteriorly sandra n with retraction of the pannus. Posteriorly, the scrotum and distal foreskin are visible, b ut the glans and penile shaft are completely buried within the overlying pannus. The glans i s palpable ~5-6cm proximal to the opening of the foreskin. On exam with patient supine and l ower pannus retracted up, the penis is again buried, but accessible on palpation. Images: None Assessment: 1. Morbid obesity 2. Need for intraoperative bladder drainage Plan: I discussed options for establishing bladder drainage intraoperatively including blind Fole y catheter placement or cystoscopic guided placement. In the supine position with the lower pannus retracted up, the glans is palpable though not visible, and may be accessible for cat heter placement without cystoscopy. If this is not possible, we will place the catheter usin g cystoscopic guidance. I do not think catheter length should be an issue given his anatomy, but we will have extension tubing available in case. Mr. Burns is eager to have this neeta shebly done and is willing to proceed. 1. Sleeve gastrectomy with Dr. Perez 01/09/12 2. Intraoperative Oates catheter placement +/- cystoscopic guidance by Urology - JOCELYNE douglas, consent obtained Yahaira Doran MD Clinical Instructor Department of Urology [facility] Pager: [phone] documented in this enc ounter Plan of Treatment Not on filedocumented as of this encounter Procedures + +--------+ + + + | Procedure Name | Priori | Date/Time | Associated Diagnosis | Comments | | | ty | | | | + +--------+ + + + | PROCEDURE NOTE | Routin | 12/09/2015 | | Results for this | | | e | 11:30 PM | | procedure are in the | | | | PST | | results section. | + +--------+ + + + documented in this encounter Results PROCEDURE NOTE (12/09/2015 11:30 PM PST) + + | Transcriptions | + + | Usman Barbosa - 12/26/2012 6:39 PM PST | + + documented in this encounter Visit Diagnoses + + | Diagnosis | + + | Morbid obesity (HCC) - Primary Morbid obesity | + + | Nephrolithiasis Calculus of kidney | + + documented in this encounter"
--- OUTSIDE RECORDS SUMMARY | ~2020-04-13 | XMS | Encounter Summary ---
Demographics + + + | Address | [address] [facility] | | | [place] [address] | + + + | Home Phone | | + + + | Preferred Language | Unknown | + + + | Marital Status | | + + + | Latter-Day Affiliation | CHR | + + + [...] [place], [place] | | | | | [address] | | + + + + + Care Team Providers + +------+ + | Care Motor Vehicle License Clerk Name | Role | Phone | + +------+ + | Moe Bella MD | PCP | | + +------+ + Encounter Details +--------+ + + + + | Date | Type | Department | Care Team | Description | +--------+ + + + + | 07/31/ | Telephone | Digestive Health | Jesus Perez, | | | 2012 | | [place] [address] | [address] | | | | | [place] Mailcode: [facility] | [facility] | | | | | [facility] | [place], [place] | | | | | and Healing, | [address] | | | | | [address] | [phone] | | | | | Floor [place], [place] | | | | | | [address] | | | | | | [phone] | | | +--------+ + + + [...]
--- OUTSIDE RECORDS SUMMARY | ~2020-04-13 | XMS | Encounter Summary ---
Demographics + + + | Address | [address] | | | [place] [address] | + + + | Home Phone | | + + + | Preferred Language | Unknown | + + + | Marital Status | | + + + | Taoism Affiliation | [id number] | + + + | Race | Unknown | + + + | Ethnic Group | Unknown | + + + Author + + + | Author | [facility] | | | and [place] | + + + | Organization | [facility] | | | and [place] | + + + | Address | Unknown | + + + | Phone | Unavailable | + + + Support + + + + + | Name | Relationship | Address | Phone | + + + + + | Milady Burns | ECON | [address] | | | | | [place] | | | | | [address] | | + + + + + Care Team Providers + +------+ + | Care Chief Engineer'S Helper Name | Role | Phone | + [...] Lee MD | Medication Refill | | 2016 | | NEUROSURGERY [address] | | | | | [address] | [place] [address] | | | | | [place] | [phone] | | | | | [address] | | | | | | [phone] | | | +--------+--------+ + + + [...]
--- OUTSIDE RECORDS SUMMARY | ~2020-04-13 | XMS | Encounter Summary ---
Demographics + + + | Address | [address] | | | [place] [address] | + + + | Home Phone | | + + + | Preferred Language | Unknown | + + + | Marital Status | | + + + | Voodoo Affiliation | CHR | + + + [...] + | Tico Burns | ECON | [address] | | | | | [place], [place] | | | | | [address] | | + + + + + Care Team Providers + +------+ + | Care Business Analyst Intern Name | Role | Phone | + +------+ + | Moe Bella MD | PCP | | + +------+ + Reason for Referral Consultation (Routine) + +--------+ + + + + | Status | Reason | Specialty | Diagnoses / | Referred By | Referred To | | | | | Procedures | Contact | Contact | + +--------+ + + + + | Canceled | | Psychiatry | Diagnoses | Conser, | Psy Adult | | | | | Obesity | Violetta Sweeney NP | [facility] | | | | | Procedures | [address] | [address] | | | | | CONSULT TO | [address], | [address] | | | | | PSYCHIATRY - | [address] | [place] | | | | | ADULT | [place], [place] | [place] | | | | | | [address] | Building [address] | | | | | | Phone: | floor | | | | | | [phone] | [place], [place] | | | | | | Fax: | [address] | | | | | | [phone] | Phone: | | | | | | | [phone] | | | | | | | Fax: | | | | | | | [phone] | + +--------+ + + + + Encounter Details +--------+ + + + + | Date | Type | Department | Care Team | Description | +--------+ + + + + | 04/24/ | Documentati | Digestive Health | Violetta Byers, | | | 2011 | on | Center at [facility] [address] | SENIOR BENEFITS SPECIALIST [address] | | | | | [address] | [address] | | | | | Mailcode: Center | [place], [place] | | | | | for Health and | [address] | | | | | Healing, [address] | [phone] | | | | | [facility] [place] | | | | | | [address] | | | | | | [phone] | | | +--------+ + + + [...] + | Diagnosis | + + | Obesity - Primary Obesity, unspecified | + + documented in this encounter"
--- OUTSIDE RECORDS SUMMARY | ~2020-04-13 | XMS | Encounter Summary ---
Demographics + + + | Address | [address] | | | [place] [address] | + + + | Home Phone [...] + + + | Author | [facility] | + + + | Organization | [facility] | + + + | Address | Unknown | + + + | Phone | Unavailable | + + + Support + + + + + | Name | Relationship | Address | Phone | + + + + + | Tico Burns | ECON | [address] | | | | | [place], [place] | | | | | [address] | | + + + + + Care Team Providers + +------+ + | Care Division Sergeant Name | Role | Phone | + [...] + + + | Closed | | Endocrinology | Diagnoses | [place], | [place], | | | | Diabetes & | Morbid | Violetta Sweeney NP | MD Satya | | | | Metabolism | obesity | [address] | | | | | (HCC) DM | [address] | [address] | | | | | (diabetes | [address] | [place], [place] | | | | | mellitus) | [place], [place] | [address] | | | | | (HCC) | [address] | Phone: | | | | | Hypertension | Phone: | [phone] | | | | | | [phone] | Fax: | | | | | Hyperlipidem | Fax: | [phone] | | | | | ia | [phone] | | | | | | Procedures | | | | | | | CONSULT TO | | | | | | | ENDO | | | | | | | [address] | | | | | | | [address] | | | +--------+--------+ + + + + Encounter Details +--------+ + + + + | Date | Type | Department | Care Team | Description | +--------+ + + + + | 11/22/ | Call Out Clerk | [facility] | Violetta Byers, | Morbid obesity (HCC) | | 2012 | | [place] at [facility] [address] | [employer] [address] | (Primary Dx); DM | | | | [address] | (diabetes mellitus) | | | | Mailcode: [place] | [place], [place] | ([facility]); Hypertension; | | | | for Health and | [address] | Hyperlipidemia | | | | [place] [address] | [phone] | | | | | [place], [place] | | | | | | [address] | | | | | | [phone] | | | +--------+ + + + [...] Primary Morbid obesity | + + | DM (diabetes mellitus) ([facility]) Type II or unspecified type diabetes mellitus without | | mention of complication, not stated as uncontrolled | + + | Hypertension Unspecified essential hypertension | + + | Hyperlipidemia Other and unspecified hyperlipidemia | + + documented in this encounter"
--- OUTSIDE RECORDS SUMMARY | ~2020-04-13 | XMS | Encounter Summary ---
Demographics + + + | Address | [address] | | | [place] [address] | + + + | Home Phone | | + + + | Preferred Language | Unknown | + + + | Marital Status | | + + + | Oriental Orthodox Affiliation | CHR | + + + [...] + | Tico Burns | ECON | [address] | | | | | [place], [place] | | | | | [address] | | + + + + + Care Team Providers + +------+ + | Care Poem Writer Name | Role | Phone | + +------+ + | Moe Bella MD | PCP | | + +------+ + Encounter Details +--------+ + + + + | Date | Type | Department | Care Team | Description | +--------+ + + + + | 08/19/ | Abstract | Dig[facility]ive Health | Violetta Byers, | | | 2011 | | Center at [facility] [address] | [employer] WORK[employer] [address] | | | | | [address] | [facility] [address] | | | | | Mailcode: Center | [place], [place] | | | | | for Health and | [address] | | | | | [facility], [facility] [address] | [phone] | | | | | [place], [place] | | | | | | [address] | | | | | | [phone] | | | +--------+ + + + [...]
--- OUTSIDE RECORDS SUMMARY | ~2020-04-13 | XMS | Encounter Summary ---
Demographics + + + | Address | [address] | | | [place] [address] | + + + | Home Phone | | + + + | Preferred Language | Unknown | + + + | Marital Status | | + + + | Taoism Affiliation | 1013 | + + + | Race | Unknown | + + + | Ethnic Group | Unknown | + + + Author + + + | Author | [facility] | | | and [place] | + + + | Organization | [facility] | | | and [place] | + + + | Address | Unknown | + + + | Phone | Unavailable | + + + Support + + + + + | Name | Relationship | Address | Phone | + + + + + | Milady Burns | ECON | [address] | | | | | [place] | | | | | [address] | | + + + + + Care Team Providers + +------+ + | Care Elastic Cutter Name | Role | Phone | + +------+ + | Moe Bella MD | PCP | | + +------+ + Encounter Details +--------+ + + + + | Date | Type | Department | Care Team | Description | +--------+ + + + + | 08/22/ | Hospital | [facility] | Chauncey Lee MD | 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 | | | | | ([facility]) S/P cervical | | | | | [...] Procedure Note | + + | Aldair, Josh Results In - 08/22/2017 1:45 PM PDT [...]
--- OUTSIDE RECORDS SUMMARY | ~2020-04-13 | XMS | Clinical Summary ---
Demographics + + + | Address | [address] | | | [place] [address] | + + + | Home Phone | | + + + | Preferred Language | Unknown | + + + | Marital Status | | + + + | Jew Affiliation | CHR | + + + [...] | Tico Burns | ECON | [address] | | | | | [place], [place] | | | | | [address] | | + + + + + Care Team Providers + +------+ + | Care Produce Field Merchandiser Name | Role | Phone | + +------+ + | Moe Bella MD | PCP | | + +------+ + Source Comments SONJA is fully live on both EpicCare Ambulatory and EpicCare InPatient.[facility] Allergies + + + + + [...] AFFINI | | [address] | [address] | | | | [place] | | sent | | [place], | | | | | | | | [place] [address] | | +-------+--------+ +--------+ + +------+ + +--------+ +--------+ + + | Guarantor Name | Accoun | Relation to | Date | Phone | Billing Address | | | t Type | Patient | of | | | | | | | | | | + +--------+ +--------+ + + | Gerard Burns | Person | Self | [birth year] | [address] | | | al/Fam | | 1965 | [phone] | [place] [address] | | | yas | | | [...]
--- OUTSIDE RECORDS SUMMARY | ~2020-04-13 | XMS | Encounter Summary ---
Demographics + + + | Address | [address] | | | [place] [address] | + + + | Home Phone | | + + + | Preferred Language | Unknown | + + + | Marital Status | | + + + | Christian Affiliation | CHR | + + + | Race | White | + + + | Ethnic Group | Not or | + + + Author + + + | Author | [facility] | + + + | Organization | [facility] | + + + | Address | Unknown | + + + | Phone | Unavailable | + + + Support + + + + + | Name | Relationship | Address | Phone | + + + + + | Tico Burns | ECON | [address] | | | | | [place], [place] | | | | | [address] | | + + + + + Care Team Providers + +------+ + | Care Publicity Person Name | Role | Phone | + +------+ + | Moe Bella MD | PCP | | + +------+ + Reason for Visit + + + | Reason | Comments | + + + | Postoperative visit | | + + + Encounter Details +--------+---------+ + + + | Date | Type | Department | Care Team | Description | +--------+---------+ + + + | 02/27/ | Office | Dig[facility]ive Health | Violetta Byers, | S/P partial | | 2012 | Visit | Center at [facility] [address] | CIVIL DESIGNER [address] | gastrectomy (Primary | | | [address] | Dx); [place], | | | | Mailcode: Center | [place], [place] | abdominal; Fatty | | | | for Health and | [address] | tumor | | | | Healing, [address] | [phone] | | | | | [place], [place] | | | | | | [address] | | | | | | [phone] | | | +--------+---------+ + + + [...] + + + | Blood Pressure | 152/77 | 02/27/2013 2:52 PM | | | | | PDT | | + + + + + | Pulse | 74 | 02/27/2013 2:52 PM | | | | | PDT | | + + + + + | Temperature | 36.5 C (97.7 F) | 02/27/2013 2:52 PM | | | | | PDT | | + + + + + | Respiratory Rate | 16 | 02/27/2013 2:52 PM | | | | | PDT | | + + + + + | Oxygen Saturation | - | - | | + + + + + | Inhaled Oxygen | - | - | | | Concentration | | | | + + + + + | Weight | 228.6 kg (503 lb | 02/27/2013 2:52 PM | | | | 14.4 oz) | PDT | | + + + + + | Height | 175.3 cm (5' 9") | 02/27/2013 2:52 PM | | | | | PDT | | + + + + + | Body Mass Index | 74.41 | 02/27/2013 2:52 PM | | | | | PDT | | + + + + + documented in this encounter Progress Notes Violetta Byers NP - 02/27/2013 3:33 PM PDTFormatting of this note might be different fr om the original. BARIATRIC FOLLOW-UP Gerard Burns is a 48 y.o. patient who underwent an open sleeve gastrectomy January 22. Making good food choices, being more active. Pt has been taking all supps, 60 gms protei n daily, 64 oz water daily. Happy with weight loss. Able to eat solid foods, denies vomiting other than on rare occasion. States regular BM. Denies abd pain. Last office visit reviewed. Op-report reviewed. Labs reviewed. Weight 530--> 503 (total 27 lb weight loss) BP 152/77 | Pulse 74 | Temp (Src) 36.5 C (97.7 F) (Oral) | RR 16 | Ht 1.753 m (5' 9") | Wt 228.568 kg (503 lb 14.4 oz) | BMI 74.41 kg/(m^2) ALLERGIES: Allergies Allergen Reactions Codeine Rash Rash all over arms Current outpatient prescriptions:acetaminophen 650 mg/20.3 mL Oral Suspension, Take 20.3 mL by mouth every six hours as needed for moderate pain., Disp: 300 mL, Rfl: 1 Aspirin 81 mg Oral Tablet, Take 81 [...] insulin glargine 100 unit/mL Subcutaneous Solution, Inject 50 Units under the skin (SUBC) o nce daily at bedtime. Indications: TYPE 2 DIABETES MELLITUS, Disp: 10 mL, Rfl: 1 insulin lispro 100 unit/mL Subcutaneous Solution, Use 2 units for 141-200, 4 units for 201- 250, 6 units for 251-300, nj your doctor if > Indications: TYPE 2 DIABETES MELLITUS, Disp: 10 mL, Rfl: 1 levothyroxine (SYNTHROID) 175 mcg Oral Tablet, Take 175 mcg by mouth once daily. , Disp: , Rfl: LOSARTAN/HYDROCHLOROTHIAZIDE (HYZAAR ORAL), Take by mouth., Disp: , Rfl: magnesium oxide 400 mg Oral tablet, Take 1 Tab by mouth two times daily., Disp: 6 Tab, Rfl: 0 metFORMIN SR (GLUCOPHAGE XR) 500 mg Oral Tablet Extended Release 24 hr, Take 500 mg by mout h once daily. Administer with evening meal. , Disp: , Rfl: metoprolol tartrate 100 mg Oral Tablet, Take 100 mg by mouth two times daily. , Disp: , Rf l: oxyCODONE, immediate release, 10 mg Oral tablet, Take 0.5-2 Tabs by mouth every three hours as needed. Indications: Pain, Disp: 145 Tab, Rfl: 0 pediatric multivitamin chewable (CHILDRENS CHEWABLE VITAMINS) Oral tablet, chewable, Take 1 Tab by mouth two times daily., Disp: 100 Tab, Rfl: 12 prochlorperazine 10 mg Oral tablet, Take 1 Tab by mouth three times daily as needed for juana sea/vomiting. 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 Social History Main Topics Smoking status: Never Smoker Smokeless tobacco: Not on file Alcohol Use: 0.0 oz/week 0 drink(s) per week very rare Drug Use: No Sexually Active: Not on file Other Topics Concern Not on file Social History Narrative to Shilpi Family History Problem Relation Arthritis Father Bariatric Medications: MVI with iron twice daily: yes Calcium citrate 1500mg daily: yes B12 500mcg SL daily or monthly shot: yes H2RB/PPI daily: yes Actigall 300 BID: yes Narcotics: no Symptoms: Nausea: None Dysphagia: None Vomiting: None Heartburn: None Abd Pain: None Constipation: None Diarrhea: None Exam General- Alert and oriented x4, WD, WN, NAD, Obese, well appearing Well hydrated: moist mucous membranes Lungs: regular and even excursion, no audible wheezes Card/Circ: no LE edema Abd - Soft, NT, NR, NG Wounds - well healed Assessment/Plan: 1. S/P Marina en y gastric bypass, Doing well at 6 wks Continue with supps as directed, watch protein levels, be sure to get 60 gms daily, be sure to take in 64 oz of water daily. Discussed specific supplements and gave list on AVS. Discussed calorie counting and protein counting. Discussed diet choices, healthy foods, ways to increase protein and iron, offered RD visit. Discussed exercise, types of exercise, offered referral to [facility]. 2. Pannus, large fatty tumor surrounding penis, this has been assessed by Dr. Perez in [facility]. He comes in with Dr. Barr to evaluate and plan for surgical removal. Surgery date of 04 April given, message sent to [facility] schedulers to work on auth and contact pt. See PCM for adjusting any other medications. Call if any abd pain, n/v/d or other issues. ER for severe pain. Encouraged pt to F/u at 3 months post op. Pt agrees to POC and will call or send [employer] message if any issues. Start time 1500, end time 1520. I spent a total of 20 minutes face to face with this patie nt. Over 50% of visit was in counseling. ~ 2 Minutes of additional time spent reviewing chart prior to visit and documenting after t his visit. Violetta Byers RN, [facility]- Nurse Practitioner for Bariatric Surgery [facility] | [address] | [place], [place] | [address] | documented in this e ncounter Plan of Treatment Not on filedocumented as of this encounter Procedures + +--------+ + + + | Procedure Name | Priori | Date/Time | Associated Diagnosis | Comments | | | ty | | | | + +--------+ + + + | LAB REPORTS | | 01/27/2013 | | Results for this | | | | 12:00 AM | | procedure are in the | | | | PDT | | results section. | + +--------+ + + + documented in this encounter Results LAB REPORTS (01/27/2013 12:00 AM PDT) + + + | Narrative | Performed At | + + + | | | | | | + + + + + | Procedure Note | + + | Usman Barbosa - 03/03/2013 10:14 AM PDT | + + documented in this encounter Visit Diagnoses + + | Diagnosis | + + | S/P partial gastrectomy - Primary Other postprocedural status | + + | Pannus, abdominal Localized adiposity | + + | Fatty tumor Lipoma of unspecified site | + + documented in this encounter
--- OUTSIDE RECORDS SUMMARY | ~2020-04-13 | XMS | Encounter Summary ---
Demographics + + + | Address | [address] | | | [place] [address] | + + + | Home Phone | | + + + | Preferred Language | Unknown | + + + | Marital Status | | + + + | Yarsanism Affiliation | 1013 | + + + | Race | Unknown | + + + | Ethnic Group | Unknown | + + + Author + + + | Author | [facility] | | | and [place] | + + + | Organization | [facility] | | | and [place] | + + + | Address | Unknown | + + + | Phone | Unavailable | + + + Support + + + + + | Name | Relationship | Address | Phone | + + + + + | Milady Burns | ECON | [address] | | | | | [place], [place] | | | | | [address] | | + + + + + Care Team Providers + +------+ + | Care Shoes Salesperson Name | Role | Phone | + [...] | | | | | | | PA | | | | | | | [...] + + + + | 06/01/ | Hospital | [facility] | Chauncey Lee MD | | | 2016 - | Encounter | [facility] | [address] | | | | | [address] | [place] [address] | | | 06/02/ | | [place] [address] | [phone] | | | 2015 | | [phone] | | | +--------+ + + + [...] + + + | Blood Pressure | 98/50 | 06/02/2016 3:09 PM | | | | | PDT | | + + + + + | Pulse | 70 | 06/02/2016 3:09 PM | | | | | PDT | | + + + + + | Temperature | 36.5 C (97.7 F) | 06/02/2016 3:09 PM | | | | | PDT | | + + + + + | Respiratory Rate | 18 | 06/02/2016 3:09 PM | | | | | PDT | | + + + + + | Oxygen Saturation | 95% | 06/02/2016 3:09 PM | | | | | PDT | | + + + + + | Inhaled Oxygen | - | - | | | Concentration | | | | + + + + + | Weight | 206.4 kg (455 lb 1.6 | 06/01/2016 6:21 AM | | | | oz) | PDT | | + + + + + | Height | 175.3 cm (5' 9") | 06/01/2016 6:21 AM | | | | | PDT | | + + + + + | Body Mass Index | 67.21 | 06/01/2016 6:21 AM | | | | | PDT | | + + + + + documented in this encounter Discharge Summaries Jose Mirza PA-C - 06/02/2016 7:25 AM PDTFormatting of this note might be differ ent from the original. [facility] DISCHARGE SUMMARY Patient Name: Gerard Burns Patient : 1965 PCP: Moe Bella Date of Admission: 06/01/2016 Date of Discharge: 06/02/2016 Primary Discharge Dx: Cervical spondylosis with radiculopathy Other spondylosis with radiculopathy, cervical region [M47.22] Cervical disc herniation Cervical foraminal stenosis Left arm weakness, progressive Severe morbid obesity BMI > 67 Secondary Discharge Dx(s): Patient Active Problem List Diagnosis MORBID OBESITY Hypertension Depression HYPERLIPIDEMIA Hypothyroidism DIABETES MELLITUS, TYPE II, UNCONTROLLED, WITH COMPLICATIONS - INSULIN DEPENDENT THYROID NODULE THYROID CANCER Cervical spondylosis with radiculopathy Degenerative disc disease, cervical Foraminal stenosis of cervical region Left arm weakness Sleep apnea, obstructive - on CPAP BMI 60.0-69.9, adult H/O Thyroid cancer Arthritis Beta Patricia Use Procedures Procedure(s): C4-5, C5-6, C6-7 Anterior Cervical Discectomy Fusion Procedure 1. Anterior cervical discectomy and fusion C4-5, C5-6, and C6-7 2. Anterior cervical plating C4-7 using Zevo 3. Anterior structural allograft bone C4-5, C5-6, and C6-7 4. Microsurgical technique with use of operating microscope Hospital Course: Post op the patient did well. Pain was reasonably controlled. Arm symptoms were improved. He worked well with therapy. No medical issues were identified. Condition on Discharge: Stable Discharge Medications: Discharge Medications New Medications Details cyclobenzaprine 10 mg tablet Take 1 tablet by mouth every 8 hours as needed for Muscle spasms. aka: FLEXERIL lactulose 10 g/15 mL solution Take 30 mLs by mouth Daily as needed. oxyCODONE 10 MG Tabs Take 0.5-2 tablets by mouth every 3 hours as needed for Pain. Unchanged Medications Details [facility] BREEZE 2 TEST Disk Generic drug: Glucose Blood Use as directed [facility] MICROLET LANCETS Misc Use as directed CRESTOR 40 MG tablet Generic drug: rosuvastatin Take 40 mg by mouth Daily. ergocalciferol 61312 UNITS capsule Take 50,000 Units by mouth Once a week. aka: VITAMIN D2 FLUoxetine 20 mg capsule Take 20 mg by mouth Daily. aka: PROzac HYZAAR 100-25 MG per tablet Generic drug: losartan-hydrochlorothiazide Take 100-25 mg by mouth Daily. insulin lispro 100 units/mL injection (vial) Inject under the skin 3 times daily (before meals). 20 units breakfast/lunch, 25 units be dtime aka: humaLOG LANTUS 100 units/mL injection (vial) Generic drug: insulin glargine Inejct 60 units at bedtime metFORMIN 1000 MG 24 hr tablet Take 1,000 mg by mouth daily (with breakfast). aka: GLUMETZA levothyroxine 200 mcg tablet Take 200 mcg by mouth every morning (before breakfast). aka: SYNTHROID, LEVOTHROID SYNTHROID 50 mcg tablet Generic drug: levothyroxine Take 50 mcg by mouth Daily. TOPROL XL 200 mg ER tablet Generic drug: metoprolol succinate Take 200 mg by mouth Daily. ; Current Discharge Medication List START taking these medications Medication Dose Last Dose Taken; cyclobenzaprine (FLEXERIL) 10 mg tablet 10 mg Take 1 tablet by mouth every 8 hours as needed for Muscle spasms. Quantity: 90 tablet Refills: 3 Start date: 06/02/2016 lactulose 10 g/15 mL solution 30 mLs Take 30 mLs by mouth Daily as needed. Quantity: 240 mL Refills: PRN Start date: 06/02/2016 oxyCODONE 10 MG TABS 5-20 mg Take 0.5-2 tablets by mouth every 3 hours as needed for Pain. Quantity: 120 tablet Refills: 0 Start date: 06/02/2016 CONTINUE these medications which have NOT CHANGED Medication Dose Last Dose Taken; TOMAS MICROLET LANCETS MISC Use as directed ergocalciferol (ERGOCALCIFEROL) 55014 UNITS capsule 50,000 Units Take 50,000 Units by mouth Once a week. FLUoxetine (PROZAC) 20 mg capsule 20 mg Take 20 mg by mouth Daily. Glucose Blood ([facility] BREEZE 2 TEST) DISK Use as directed insulin glargine (LANTUS) 100 units/mL injection Inejct 60 units at bedtime insulin lispro (HUMALOG) 100 units/mL injection (vial) Inject under the skin 3 times daily (before meals). 20 units breakfast/lunch, 25 units be dtime !! levothyroxine (SYNTHROID) 50 mcg tablet 50 mcg Take 50 mcg by mouth Daily. !! levothyroxine (SYNTHROID, LEVOTHROID) 200 mcg tablet 200 mcg Take 200 mcg by mouth every morning (before breakfast). losartan-hydrochlorothiazide (HYZAAR) 100-25 MG per tablet 100-25 mg Take 100-25 mg by mouth Daily. metFORMIN (GLUMETZA) 1000 MG 24 hr tablet 1,000 mg Take 1,000 mg by mouth daily (with breakfast). metoprolol (TOPROL XL) 200 MG 24 hr tablet 200 mg Take 200 mg by mouth Daily. rosuvastatin (CRESTOR) 40 MG tablet 40 mg Take 40 mg by mouth Daily. !! Potential duplicate medications found. Please discuss with provider. Follow-Up: 4 weeks C Collar For 4 weeks documented in this encounter Discharge Instructions Instructions Jose Mirza PA-C - 06/02/2016Discharge Instructions for Cervical Fus ion You had a cervical fusion. During this procedure, your doctor lockedtogether (fused) some of the bones in the curve of your neck. This limits the movement of these bones to help rel ieve your pain. Here s what you need to know about home care following a cervical fusion. Activity Arrange your household to keep the items you need within reach. Remove electrical cords, throw rugs,and anything else that may cause you to fall. Follow your doctor s instructions for wearing acervical collar or brace. The neck co llar or brace is important because it supports and correctly positions your neck after surge ry. Be sure to follow instructions for its care, use, and the length of time you must wear i t. Don t raise your hands over your head [id number])after your surgery. Don t drive until your doctor says it s OK. This will most likely be when you can mo ve your neck from side to side freely and without pain. Never drive while you are taking opi oid pain medication. Walk as much as possible. You may also go up and down stairs as much as you can tolerate . Walking outside or walking on a treadmill at a slow speed with no incline is OK. Don t lift anything heavier than5 pounds. Ask your doctor when you can return to work. Other home care Take your medication exactly as directed. Talk to your doctor about pain medication. Don t take nonsteroidal, anti-inflammatory medications (NSAIDs),such as ibuprofen un less your doctor approves. They may delay or prevent proper fusion of bone. As long as you keep your incision dry you may shower as desired after your surgery. You may allow shower water to run over the incision and get it wet after 5 days, but do not subm erse the incision under water until after you see your provider at your 1 month post op visi t. You may be instructed to use a neck collar while you shower. If so, carefully remove it when you finish showering. Then keep your neck correctly positioned as you gently pat dry y our skin, the incision, and the neck collar. Then put the neck collar back on. Don t soak in bathtubs, hot tubs, or swimming pools until instructed by your doctor. Your incision mayhave beenclosed using sutures, zuly, or strips of tape. You can allow strips of tape to fall off on their own. Don t rub the incision, or apply creams or lotions onit. If you smoke, quit. Smoking slows healing of bone. Enroll in a stop-smoking program to i mprove your chances of success. Follow-up Most patients will have a 4 week follow up appointment. Please get your 1 month post op x-rays prior to this your 1 month post op appointment. [phone] [employer] [place] [id number]. All righ ts reserved. This information is not intended as a substitute for professional medical care. Always follow your healthcare professional's instructions. documented in this encounter Medications at Time [...] | | | 12 | | | 53650 UNITS capsule | | | | | [...] 0.5-2 tablets | 120 | 0 | 06/02/20 | | | TABS | by mouth every 3 | tablet | | 16 | 6 | | | hours as needed for | | | | | | | Pain. | | | | | + + [...] | + +--------+ + + + | POC GLUCOSE | Routin | 06/02/2016 | | Results for this | | | e | 5:06 PM | | procedure are in the | | | | PDT | | results section. | + +--------+ + + + | POC GLUCOSE | Routin | 06/02/2016 | | Results for this | | | e | 11:36 AM | | procedure are in the | | | | PDT | | results section. | + +--------+ + + + | POC GLUCOSE | Routin | 06/02/2016 | | Results for this | | | e | 6:35 AM | | procedure are in the | | | | PDT | | results section. | + +--------+ + + + | POC GLUCOSE | Routin | 06/01/2016 | | Results for this | | | e | 8:33 PM | | procedure are in the | | | | PDT | | results section. | + +--------+ + + + | POC GLUCOSE | Routin | 06/01/2016 | | Results for this | | | e | 4:27 PM | | procedure are in the | | | | PDT | | results section. | + +--------+ + + + | RESPIRATORY THERAPY | Routin | 06/01/2016 | | | | COMMUNICATION | e | 1:01 PM | | | | | | PDT | | | + +--------+ + + + | POC GLUCOSE | Routin | 06/01/2016 | | Results for this | | | e | 12:54 PM | | procedure are in the | | | | PDT | | results section. | + +--------+ + + + | XR CERVICAL SPINE 2 | Routin | 06/01/2016 | | Results for this | | OR 3 VIEWS | e | 12:23 PM | | procedure are in the | | | | PDT | | results section. | + +--------+ + + + | POC GLUCOSE | Routin | 06/01/2016 | | Results for this | | | e | 11:02 AM | | procedure are in the | | | | PDT | | results section. | + +--------+ + + + | FL KAMI STATS NO | Routin | 06/01/2016 | | Results for this | | CHARGE | e | 10:47 AM | | procedure are in the | | | | PDT | | results section. | + +--------+ + + + | FUSION CERVICAL | | 06/01/2016 | Other spondylosis | | | ANTERIOR W/ PLATING | | 8:15 AM | with radiculopathy, | | | | | PDT | cervical region | | + +--------+ + + + +---+--------+ | | Case | | | Notes | | | | | | C-ARM, | | | | | | DRILL, | | | | | | MICROS | | | COPE, | | | ZEVO, | | | GRAFTO | | | N, | | | CORNER | | | STONE, | | | OSI | | | FLAT | | | TOPEST | | | IMATED | | | TIME: | | | 2 | | | HOURS | +---+--------+ | | | | | Specia | | | l | | | Needs | | | MINNA | | | | | | (MEDTR | | | ONIC): | | | ZEVO | +---+--------+ + +--------+ +---+ + | POC GLUCOSE | Routin | 06/01/2016 | | Results for this | | | e | 7:07 AM | | procedure are in the | | | | PDT | | results section. | + +--------+ +---+ + documented in this encounter Results POC Glucose (06/02/2016 5:06 PM PDT) + +---------+ + + + | Component | Value | Ref Range | Performed | Pathologist | | | | | At | Signature | + +---------+ + + + | Glucose, | 188 (H) | 70 - 150 mg/dL | [facility] | [facility] - | | | | | | LAB[facility]ATORY | | + +---------+ + + + + + | Specimen | + + | Blood | + + + + + + + | Performing | Address | City/State/Zipcode | Phone Number | | Organization | | | | + + + + + | [facility] | [address] | [place] | [phone] | | [facility] | | [address] | | | - LABORATORY | | | | + + + + + POC Glucose (06/02/2016 11:36 AM PDT) + +---------+ + + + | Component | Value | Ref Range | Performed | Pathologist | | | | | At | Signature | + +---------+ + + + | Glucose, | 237 (H) | 70 - 150 mg/dL | [facility] | | | | | | [facility] | | | | | [facility] - | | | | | | LABORATORY | | + +---------+ + + + + + | Specimen | + + | Blood | + + + + + + + | Performing | Address | City/State/Zipcode | Phone Number | | Organization | | | | + + + + + | [facility] | [address] | [place] | [phone] | | [facility] | | [address] | | | - LABORATORY | | | | + + + + + POC Glucose (06/02/2016 6:35 AM PDT) + +---------+ + + + | Component | Value | Ref Range | Performed | Pathologist | | | | | At | Signature | + +---------+ + + + | Glucose, | 218 (H) | 70 - 150 mg/dL | [facility] | | | | | | [facility] | | | | | | [facility] - | | | | | | LABORATORY | | + +---------+ + + + + + | Specimen | + + | Blood | + + + + + + + | Performing | Address | City/State/Zipcode | Phone Number | | Organization | | | | + + + + + | [facility] | [address] | [place] | [phone] | | [facility] | | [address] | | | - LABORATORY | | | | + + + + + POC Glucose (06/01/2016 8:33 PM PDT) + +---------+ + + + | Component | Value | Ref Range | Performed | Pathologist | | | | | At | Signature | + +---------+ + + + | Glucose, | 318 (H) | 70 - 150 mg/dL | [facility] | [facility] | | | | | [facility] | | | | | | [facility] - | | | | | | LABORATORY | | + +---------+ + + + + + | Specimen | + + | Blood | + + + + + + + | Performing | Address | City/State/Zipcode | Phone Number | | Organization | | | | + + + + + | [facility] | [address] | [place] | [phone] | | [facility] | | [address] | | | - LABORATORY | | | | + + + + + POC Glucose (06/01/2016 4:27 PM PDT) + +---------+ + + + | Component | Value | Ref Range | Performed | Pathologist | | | | | At | Signature | + +---------+ + + + | Glucose, | 250 (H) | 70 - 150 mg/dL | [facility] | | | | | | [facility] | | | | | | [facility] - | | | | | | LABORATORY | | + +---------+ + + + + + | Specimen | + + | Blood | + + + + + + + | Performing | Address | City/State/Zipcode | Phone Number | | Organization | | | | + + + + + | [facility] | [address] | [place] | [phone] | | [facility] | | [address] | | | - LABORATORY | | | | + + + + + POC Glucose (06/01/2016 12:54 PM PDT) + +---------+ + + + | Component | Value | Ref Range | Performed | Pathologist | | | | | At | Signature | + +---------+ + + + | Glucose, | 196 (H) | 70 - 150 mg/dL | [facility] | [facility] | | | | | | [facility] | | | | | | CENTER - | | | | | | LABORATORY | | + +---------+ + + + + + | Specimen | + + | Blood | + + + + + + + | Performing | Address | City/State/Zipcode | Phone Number | | Organization | | | | + + + + + | [facility] | [address] | [place], [place] | [phone] | | [facility] | | [address] | | | - LABORATORY | | | | + + + + + XR Cervical Spine 2 or 3 Views (06/01/2016 12:23 PM PDT) + + | Specimen | + + | | + + + + + | Narrative | Performed At | + + + | THREE VIEWS CERVICAL SPINE 06/01/2016 12:23 PM CLINICAL HISTORY: | [facility] | | post op ACDF COMPARISON: Cervical radiographs April 04, cervical MRI | | | February 27 FINDINGS: Anterior plate and screw and interbody fusion | | | hardware now extends from C4 through C7 and appears intact and well | | | seated. The C7-T1 level is not well visualized on the lateral views | | | due to superimposed structures. Cervical vertebral height and | | | alignment above C7 are maintained, without evident fracture or | | | subluxation. A surgical drain is positioned anterior to the operated | | | levels. Soft tissues are otherwise unremarkable. IMPRESSION - | | | 1. SATISFACTORY APPEARANCE STATUS POST ACDF EXTENDING FROM C4 | | | THROUGH C7. Dictated and Signed by: Cheng Ahumada MD | | | Electronically signed: 06/01/2016 2:08 PM | | + + + + + | Procedure Note | + + | [place], Rad Results In - 06/01/2016 2:11 PM PDT THREE VIEWS CERVICAL SPINE 06/01/2016 | | 12:23 PMCLINICAL HISTORY: post op ACDFCOMPARISON: Cervical radiographs April 04, cervical | | MRI February 27FINDINGS: Anterior plate and screw and interbody fusion hardware now | | extendsfrom C4 through C7 and appears intact and well seated. The C7-T1 level is | | notwell visualized on the lateral views due to superimposed structures. | | Cervicalvertebral height and alignment above C7 are maintained, without evident | | fractureor subluxation. A surgical drain is positioned anterior to the operated levels. | | Soft tissues are otherwise unremarkable.IMPRESSION -1. SATISFACTORY APPEARANCE STATUS | | POST ACDF EXTENDING FROM C4 THROUGH C7.Dictated and Signed by: Cheng Ahumada MD | | Electronically signed: 06/01/2016 2:08 PM | |or subluxation. A surgical drain is positioned anterior to the operated levels. | | Soft tissues are otherwise unremarkable. | | | |IMPRESSION - | |1. SATISFACTORY APPEARANCE STATUS POST ACDF EXTENDING FROM C4 THROUGH C7. | | | |Dictated and Signed by: Cheng Ahumada MD | | Electronically signed: 06/01/2016 2:08 PM | + + + +---------+ + + | Performing | Address | City/State/Zipcode | Phone Number | | Organization | | | | + +---------+ + + | [facility] | | | | + +---------+ + + POC Glucose (06/01/2016 11:02 AM PDT) + +-------+ + + + | Component | Value | Ref Range | Performed | Pathologist | | | | | At | Signature | + +-------+ + + + | Glucose, | 141 | 70 - 150 mg/dL | [facility] | | | [facility] | | [facility] | | [...] [facility] | [address] | [place] | [phone] | | [facility] | | [address] | | | - LABORATORY | | | | + + + + + FUENTES Moyer No Shirley (06/01/2016 10:47 AM PDT) + + | Specimen | + + | | + + + + + | Narrative | Performed At | + + + | No Radiologist interpretation, please see Chart Review. | [facility] | + + + + +---------+ + + | Performing | Address | City/State/Zipcode | Phone Number | | Organization | | | | + +---------+ + + | [facility] | | | | + +---------+ + + POC Glucose (06/01/2016 7:07 AM PDT) + +-------+ + + + | Component | Value | Ref Range | Performed | Pathologist | | | | | At | Signature | + +-------+ + + + | Glucose, | 133 | 70 - 150 mg/dL | [facility] | | [facility] | | [facility] | | [address] | [place] | [phone] | | [facility] | | [address] | | | - LABORATORY | | | | + + + + + documented in this encounter Visit Diagnoses + + | Diagnosis | + + | Cervical spondylosis with radiculopathy - Primary Cervical spondylosis with | | myelopathy | + + | BMI 60.0-69.9, adult (HCC) Body Mass Index 60.0-69.9, adult | + + | Arthritis Arthropathy, unspecified, site unspecified | + + documented in this encounter Administered Medications + +--------+ +--------+------+------+ | Medication Order | MAR | Action | Dose | Rate | Site | | | Action | Date | | | | + +--------+ +--------+------+------+ | acetaminophen (TYLENOL) tablet | Given | 06/02/20 | 650 mg | | | | 650 mg 650 mg, Oral, EVERY 4 | | 16 12:31 | | | | | HOURS PRN, Pain, Starting Maura | | AM PDT | | | | | 06/01/16 at 1234, Post-op/Phase II | | | | | | + +--------+ +--------+------+------+ +---+---+ | | | +---+---+ + +-------+ +-------+---+---+ | atorvaSTATin (LIPITOR) tablet | Given | 06/01/20 | 80 mg | | | | 80 mg 80 mg, Oral, NIGHTLY, | | 16 8:27 | | | | | First dose on Maura 06/01/16 at | | PM PDT | | | | | 2100, Post-op/Phase II | | | | | | + +-------+ +-------+---+---+ +---+---+ | | | +---+---+ + +---------+ +-----+-------+---+ | ceFAZolin (ANCEF, KEFZOL) 2 g | New Bag | 06/01/20 | 2 g | 100 | | | in sodium chloride 0.9% 50 mL | | 16 10:16 | | mL/hr | | | IVPB 2 g, Intravenous, | | PM PDT | | | | | Administer over 30 Minutes, EVERY | | | | | | | 8 HOURS INTERVAL, First dose on | | | | | | | [facility] 06/01/16 at 1500, For 2 doses, | | | | | | | Start 8 hours after previous | | | | | | | dose. Last dose to be given | | | | | | | within 24 hours of surgery end | | | | | | | time., Post-op/Phase II, | | | | | | | Indications: Surgical Prophylaxis | | | | | | + +---------+ +-----+-------+---+ +---------+ +-----+-------+---+ | New Bag | 06/01/20 | 2 g | 100 | | | | 16 2:29 | | mL/hr | | | | PM PDT | | | | +---------+ +-----+-------+---+ +---+---+ | | | +---+---+ + +-------+ +-------+---+---+ | cyclobenzaprine (FLEXERIL) | Given | 06/02/20 | 10 mg | | | | tablet 10 mg 10 mg, Oral, EVERY | | 16 6:49 | | | | | 8 HOURS PRN, Muscle spasms, | | PM PDT | | | | | Starting [facility] 06/01/16 at 1234, Use | | | | | | | if methocarbamol ineffective or | | | | | | | not ordered., Post-op/Phase II | | | | | | + +-------+ +-------+---+---+ +-------+ +-------+---+---+ | Given | 06/02/20 | 10 mg | | | | | 16 5:09 | | | | | | AM PDT | | | | +-------+ +-------+---+---+ | Given | 06/01/20 | 10 mg | | | | | 16 8:52 | | | | | | PM PDT | | | | +-------+ +-------+---+---+ +---+---+ | | | +---+---+ + +-------+ +--------+---+---+ | fentaNYL (PF) injection 25-50 | Given | 06/01/20 | 25 mcg | | | | mcg 25-50 mcg, Intravenous, | | 16 11:55 | | | | | EVERY 5 MIN PRN, Pain, Starting | | AM PDT | | | | | Maura 06/01/16 at 1111, Maximum | | | | | | | total dose 250 mcg. PACU IV | | | | | | | Narcotic Priority: Only use | | | | | | | fentanyl for immediate post-op | | | | | | | pain (one dose) or breakthrough | | | | | | | pain when any other IV narcotics | | | | | | | ordered have been ineffective (if | | | | | | | ordered). If both morphine and | | | | | | | hydromorphone are ordered, use | | | | | | | morphine first, and use | | | | | | | hydromporphone if morphine | | | | | | | ineffective., Recovery/Phase I | | | | | | + +-------+ +--------+---+---+ +-------+ +--------+---+---+ | Given | 06/01/20 | 25 mcg | | | | | 16 11:45 | | | | | | AM PDT | | | | +-------+ +--------+---+---+ | Given | 06/01/20 | 50 mcg | | | | | 16 11:35 | | | | | | AM PDT | | | | +-------+ +--------+---+---+ +---+---+ | | | +---+---+ + +-------+ +-------+---+---+ | FLUoxetine (PROzac) capsule 20 | Given | 06/02/20 | 20 mg | | | | mg 20 mg, Oral, DAILY, First | | 16 8:37 | | | | | dose on Sun06/01/16 at 1300, | | AM PDT | | | | | Post-op/Phase II | | | | | | + +-------+ +-------+---+---+ +-------+ +-------+---+---+ | Given | 06/01/20 | 20 mg | | | | | 16 1:02 | | | | | | PM PDT | | | | +-------+ +-------+---+---+ +---+---+ | | | +---+---+ + +-------+ +-------+---+---+ | hydrochlorothiazide tablet 25 | Given | 06/02/20 | 25 mg | | | | mg 25 mg, Oral, DAILY, First | | 16 8:37 | | | | | dose on Maura 06/01/16 at 1300, | | AM PDT | | | | | Post-op/Phase II | | | | | | + +-------+ +-------+---+---+ +-------+ +-------+---+---+ | Given | 06/01/20 | 25 mg | | | | | 16 1:02 | | | | | | PM PDT | | | | +-------+ +-------+---+---+ +---+---+ | | | +---+---+ + +-------+ +---------+---+---+ | HYDROmorphone (DILAUDID) | Given | 06/01/20 | 0.25 mg | | | | injection 0.2-0.5 mg 0.2-0.5 mg, | | 16 11:49 | | | | | Intravenous, EVERY 5 MIN PRN, | | AM PDT | | | | | Pain, Starting Maura 06/01/16 at | | | | | | | 1111, Maximum total dose 4 mg. | | | | | | | PACU IV Narcotic Priority: Only | | | | | | | use fentanyl for immediate | | | | | | | post-op pain (one dose) or | | | | | | | breakthrough pain when any other | | | | | | | IV narcotics ordered have been | | | | | | | ineffective (if ordered). If | | | | | | | both morphine and hydromorphone | | | | | | | are ordered, use morphine first, | | | | | | | and use hydromporphone if | | | | | | | morphine ineffective., | | | | | | | Recovery/Phase I | | | | | | + +-------+ +---------+---+---+ +-------+ +--------+---+---+ | Given | 06/01/20 | 0.5 mg | | | | | 16 11:41 | | | | | | AM PDT | | | | +-------+ +--------+---+---+ | Given | 06/01/20 | 0.5 mg | | | | | 16 11:31 | | | | | | AM PDT | | | | +-------+ +--------+---+---+ +---+---+ | | | +---+---+ + +-------+ + +---+ + | insulin glargine (LANTUS | Given | 06/01/20 | 80 Units | | Abdomen- | | SOLOSTAR) 100 units/mL injection | | 16 8:34 | | | LUQ | | (pen) 80 Units 80 Units, | | PM PDT | | | | | Subcutaneous, NIGHTLY, First dose | | | | | | | on [facility] 06/01/16 at 2100, | | | | | | | Post-op/Phase II | | | | | | + +-------+ + +---+ + +---+---+ | | | +---+---+ + +-------+ +---------+---+ + | insulin lispro (humaLOG | Given | 06/02/20 | 3 Units | | Abdomen- | | KWIKPEN) 100 units/mL injection | | 16 5:46 | | | RUQ | | (pen) 0-18 Units 0-18 Units, | | PM PDT | | | | | Subcutaneous, 4 TIMES DAILY WITH | | | | | | | MEALS & NIGHTLY, First dose on | | | | | | | [facility] 06/01/16 at 1300, CORRECTION | | | | | | | SCALE: Blood Glucose (BG) < | | | | | | | 150: None BG | | | | | | | 150-200: DAY: 3 units. NIGHT: | | | | | | | 0 units BG 201-250: DAY: 6 | | | | | | | units. NIGHT: 3 units BG | | | | | | | 251-300: DAY: 9 units. NIGHT: | | | | | | | 6 units BG 301-350: DAY: 12 | | | | | | | units. NIGHT: 9 units BG | | | | | | | 351-400: DAY: 15 units. NIGHT: | | | | | | | 12 units BG > 400 : DAY: 18 | | | | | | | units. NIGHT: 15 units | | | | | | | AND CALL PROVIDER | | | | | | | Use DAY DOSE for doses | | | | | | | scheduled: AC, NPO, Daytime | | | | | | | [id number] Use NIGHT DOSE for | | | | | | | doses scheduled: HS, 3AM, | | | | | | | Nighttime 9152-0545, | | | | | | | Post-op/Phase II | | | | | | + +-------+ +---------+---+ + +-------+ +---------+---+ + | Given | 06/02/20 | 6 Units | | Abdomen- | | | 16 11:58 | | | LUQ | | | AM PDT | | | | +-------+ +---------+---+ + | Given | 06/02/20 | 6 Units | | Abdomen- | | | 16 7:53 | | | LUQ | | | AM PDT | | | | +-------+ +---------+---+ + +---+---+ | | | +---+---+ + +---------+ +---+-------+---+ | lactated ringers (LR) infusion | New Bag | 06/01/20 | | 100 | | | at 100 mL/hr, Intravenous, | | 16 7:03 | | mL/hr | | | CONTINUOUS, Starting Maura 06/01/16 | | AM PDT | | | | | at 0645, Pre-op | | | | | | + +---------+ +---+-------+---+ +---+---+ | | | +---+---+ + +-------+ +---------+---+---+ | levothyroxine (SYNTHROID, | Given | 06/02/20 | 200 mcg | | | | LEVOTHROID) tablet 200 mcg 200 | | 16 6:33 | | | | | mcg, Oral, DAILY BEFORE | | AM PDT | | | | | BREAKFAST, First dose on Sun | | | | | | | 06/01/16 at 1300, Give before | | | | | | | breakfast., Post-op/Phase II | | | | | | + +-------+ +---------+---+---+ +-------+ +---------+---+---+ | Given | 06/01/20 | 200 mcg | | | | | 16 1:02 | | | | | | PM PDT | | | | +-------+ +---------+---+---+ +---+---+ | | | +---+---+ + +-------+ +--------+---+---+ | levothyroxine (SYNTHROID, | Given | 06/01/20 | 50 mcg | | | | LEVOTHROID) tablet 50 mcg 50 | | 16 1:03 | | | | | mcg, Oral, DAILY, First dose on | | PM PDT | | | | | Maura 06/01/16 at 1300, Give before | | | | | | | breakfast., Post-op/Phase II | | | | | | + +-------+ +--------+---+---+ +---+---+ | | | +---+---+ + +-------+ +--------+---+---+ | losartan (COZAAR) tablet 100 mg | Given | 06/02/20 | 100 mg | | | | 100 mg, Oral, DAILY, First dose | | 16 8:36 | | | | | on Maura 06/01/16 at 1300, | | AM PDT | | | | | Post-op/Phase II | | | | | | + +-------+ +--------+---+---+ +-------+ +--------+---+---+ | Given | 06/01/20 | 100 mg | | | | | 16 1:02 | | | | | | PM PDT | | | | +-------+ +--------+---+---+ +---+---+ | | | +---+---+ + +-------+ +---------+---+---+ | menthol (HALLS COUGH DROP) | Given | 06/02/20 | 1 | | | | lozenge 1 lozenge 1 lozenge, | | 16 9:01 | lozenge | | | | Buccal, EVERY 2 HOURS Quinn RUIZ | | AM PDT | | | | | Throat, Starting Maura 06/01/16 at | | | | | | | 1234, Post-op/Phase II | | | | | | + +-------+ +---------+---+---+ +-------+ +---------+---+---+ | Given | 06/01/20 | 1 | | | | | 16 4:43 | lozenge | | | | | PM PDT | | | | +-------+ +---------+---+---+ +---+---+ | | | +---+---+ + +-------+ +--------+---+---+ | metoprolol succinate | Given | 06/02/20 | 200 mg | | | | (TOPROL-XL) ER tablet 200 mg 200 | | 16 8:36 | | | | | mg, Oral, DAILY, First dose on | | AM PDT | | | | | 06/02/16 at 0900, | | | | | | | Post-op/Phase II | | | | | | + +-------+ +--------+---+---+ +---+---+ | | | +---+---+ + +-------+ +------+---+---+ | morphine injection 2-4 mg 2-4 | Given | 06/01/20 | 4 mg | | | | mg, Intravenous, EVERY 2 HOURS | | 16 2:29 | | | | | PRN, Pain, Starting Maura 06/01/16 | | PM PDT | | | | | at 1234, Slow IV push, not faster | | | | | | | than 2 mg/minute. If ineffective | | | | | | | or not tolerated, use | | | | | | | hydromorphone IV if ordered., | | | | | | | Post-op/Phase II | | | | | | + +-------+ +------+---+---+ +-------+ +------+---+---+ | Given | 06/01/20 | 2 mg | | | | | 16 12:49 | | | | | | PM PDT | | | | +-------+ +------+---+---+ +---+---+ | | | +---+---+ + +-------+ +------+---+---+ | ondansetron (ZOFRAN) injection | Given | 06/01/20 | 4 mg | | | | 4 mg 4 mg, Intravenous, EVERY 6 | | 16 1:13 | | | | | HOURS PRN, Nausea, Vomiting, | | PM PDT | | | | | Starting Maura 06/01/16 at 1234, | | | | | | | First line agent Use PO option | | | | | | | unless NPO status or unable to | | | | | | | tolerate., Post-op/Phase II | | | | | | + +-------+ +------+---+---+ +---+---+ | | | +---+---+ + +-------+ +-------+---+---+ | oxyCODONE (ROXICODONE) tablet | Given | 06/02/20 | 10 mg | | | | 5-20 mg 5-20 mg, Oral, EVERY 3 | | 16 6:49 | | | | | HOURS PRN, Pain, Starting Maura | | PM PDT | | | | | 06/01/16 at 1234, If ineffective | | | | | | | or not tolerated, contact | | | | | | | prescriber., Post-op/Phase II | | | | | | + +-------+ +-------+---+---+ +-------+ +-------+---+---+ | Given | 06/02/20 | 10 mg | | | | | 16 1:30 | | | | | | PM PDT | | | | +-------+ +-------+---+---+ | Given | 06/02/20 | 10 mg | | | | | 16 5:09 | | | | | | AM PDT | | | | +-------+ +-------+---+---+ +---+---+ | | | +---+---+ documented in this encounter
--- OUTSIDE RECORDS SUMMARY | ~2020-04-13 | XMS | Encounter Summary ---
Demographics + + + | Address | [address] | | | [place] [address] | + + + | Home Phone | | + + + | Preferred Language | Unknown | + + + | Marital Status | | + + + | Muslim Affiliation | 1013 | + + + | Race | Unknown | + + + | Ethnic Group | Unknown | + + + Author + + + | Author | [facility] | | | and [place] | + + + | Organization | [facility] | | | and [place] | + + + | Address | Unknown | + + + | Phone | Unavailable | + + + Support + + + + + | Name | Relationship | Address | Phone | + + + + + | Milady Burns | ECON | [address] | | | | | [place], [place] | | | | | [address] | | + + + + + Care Team Providers + +------+ + | Care Ice Cutter Name | Role | Phone | + +------+ + PCP | Unavailable | + +------+ + Encounter Details +--------+ + + + + | Date | Type | Department | Care Team | Description | +--------+ + + + + | 07/11/ | Hospital | [facility] | Harry Lechuga MD | | | 2010 - | Encounter | [facility] | [address] [place] | | | | | [address] | [address], | | | 07/13/ | | [place] [address] | [place] [address] | | | 2010 | | [phone] | [phone] | | | | | | | [...] + | [facility] | [address] | [place] | [phone] | | [facility] | | [address] | | | - LABORATORY | | | | + + + + + | [facility] | [address] | [place], [place] | | | [facility] | | [address] | | | - LABORATORY | | [...] | | | | | mg/dL | [facility] | | | | | | MEDICAL [...] + | [facility] | [address] | [place], [place] | [phone] | | [facility] | | [address] | | | - LABORATORY | | | | + + + + + | [facility] | [address] | [place] | | | [facility] | | [address] | | | - LABORATORY | [...] + | [facility] | [address] | [place] | [phone] | | [facility] | | [address] | | | - LABORATORY | | | | + + + + + | [facility] | [address] | [place] | | | [facility] | | [address] | | | - LABORATORY | | [...] + | [facility] | [address] | [place] | [phone] | | [facility] | | [address] | | | - LABORATORY | | | | + + + + + | [facility] | [address] | [place] | | | [facility] | | [address] | | | - LABORATORY | | | | + + + + + documented in this encounter Visit Diagnoses Not on filedocumented in this encounter"
--- OUTSIDE RECORDS SUMMARY | ~2020-04-13 | XMS | Encounter Summary ---
Demographics + + + | Address | [address] | | | [place] [address] | + + + | Home Phone | | + + + | Preferred Language | Unknown | + + + | Marital Status | | + + + | Congregational Affiliation | 1013 | + + + | Race | Unknown | + + + | Ethnic Group | Unknown | + + + Author + + + | Author | [facility] | | | and [place] | + + + | Organization | [facility] | | | and [place] | + + + | Address | Unknown | + + + | Phone | Unavailable | + + + Support + + + + + | Name | Relationship | Address | Phone | + + + + + | Milady Burns | ECON | [address] | | | | | [place], [place] | | | | | [address] | | + + + + + Care Team Providers + +------+ + | Care Knockdown Worker Name | Role | Phone | + +------+ + | Moe Bella MD | PCP | | + +------+ + Encounter Details +--------+ + + + + | Date | Type | Department | Care Team | Description | +--------+ + + + + | 02/24/ | Orders Only | [facility] | Vannessa Taylor | | | 2020 | | PHYSIATRY [address] | [address] | | | | | [address] [facility] [address] | [facility] | | | | | [place] | [address] [place] | | | | | [address] | [address] | | | | | [phone] | | | +--------+ + + + [...]
--- OUTSIDE RECORDS SUMMARY | ~2020-04-13 | XMS | Encounter Summary ---
Demographics + + + | Address | [address] | | | [place] [address] | + + + | Home Phone | | + + + | Preferred Language | Unknown | + + + | Marital Status | | + + + | Yarsanism Affiliation | 1013 | + + + | Race | Unknown | + + + | Ethnic Group | Unknown | + + + Author + + + | Author | [facility] | | | and [place] | + + + | Organization | [facility] | | | and [place] | + + + | Address | Unknown | + + + | Phone | Unavailable | + + + Support + + + + + | Name | Relationship | Address | Phone | + + + + + | Milady Burns | ECON | [address] | | | | | [place], [place] | | | | | [address] | | + + + + + Care Team Providers + +------+ + | Care Aircraft Loadmaster Superintendent Name | Role | Phone | + +------+ + | Moe Bella MD | PCP | | + +------+ + Reason for Visit +---------+ + | Reason | Comments | +---------+ + | Post Op | 9M PO | +---------+ + Encounter Details +--------+---------+ + + + | Date | Type | Department | Care Team | Description | +--------+---------+ + + + | 03/16/ | Office | [facility] [place] | Chauncey Lee MD | Pseudoarthrosis of | | 2017 | Visit | NEUROSURGERY [address] | [address] | cervical spine, | | | | [address] | [place] [address] | initial encounter | | | | [place] | [phone] | (HCC) (Primary Dx); | | | | [address] | | S/P cervical spinal | | | | [phone] | | fusion | +--------+---------+ + + + Social History [...] + + + | Blood Pressure | 150/84 | 03/16/2017 9:10 AM | | | | | PDT | | + + + + + | Pulse | 77 | 03/16/2017 9:10 AM | | | | | PDT [...] + + + + | Weight | 202.3 kg (446 lb) | 03/16/2017 9:10 AM | | | | | PDT | | + + + + + | Height | 175.3 cm (5' 9") | 03/16/2017 9:10 AM | | | | | PDT | | + + + + + | Body Mass Index | 65.86 | 03/16/2017 9:10 AM | | | | | PDT | | + + + + + documented in this encounter Progress Notes Mari Hammond, Brass Molder - 03/16/2017 9:23 AM PDTFormatting of this note might b e different from the original. Chauncey Lee MD [address] [place] [address], [address] [place], [place] [id number] FAX: NEUROSURGERY FOLLOW-UP CHIEF COMPLAINT: Chief Complaint Patient presents with Post Op 9M PO HISTORY OF PRESENT ILLNESS: The patient is a 52 y.o. male that had a cervical fusion for r adiculopathy around 9 months ago. He returns and overall is doing well. The patient's swal lowing has improved back to normal. He has less pain in his neck and it is only intermitten t and his arm has recovered its strength with no pain. The patient has been walking as much as directed. The patient has had no issues with his surgical site. CURRENT MEDICATIONS: Current Outpatient Prescriptions Medication Sig Dispense Refill aspirin 81 MG tablet Take 81 mg by mouth Daily. LifeServe InnovationsET LANCETS MISC Use as directed calcium citrate-vitamin D3 (CITRACAL PETITES/VITAMIN D) 200-250 mg-unit tablet Take by mouth. Cyanocobalamin (VITAMIN B12 PO) Take 50,000 Units by mouth every 7 days. cyclobenzaprine (FLEXERIL) 10 mg tablet Take 1 tablet by mouth every 8 hours as needed for Muscle spasms. 90 tablet 3 ergocalciferol (ERGOCALCIFEROL) 76473 UNITS capsule Take 50,000 Units by mouth Once a w [place]. FLUoxetine (PROZAC) 20 mg capsule Take 20 mg by mouth Daily. gabapentin (NEURONTIN) 300 mg capsule Take by mouth. Glucose Blood (Independent Space BREEZE 2 TEST) DISK Use as directed insulin glargine (LANTUS) 100 units/mL injection (vial) Inject under the skin. insulin lispro (HUMALOG) 100 units/mL injection (vial) Inject under the skin 3 times d aily (before meals). 25 units three times daily levothyroxine (SYNTHROID, LEVOTHROID) 200 mcg tablet Take 200 mcg by mouth every mornin g (before breakfast). losartan-hydrochlorothiazide (HYZAAR) 100-25 MG per tablet Take 100-25 mg by mouth Arya y. metFORMIN (GLUMETZA) 1000 MG 24 hr tablet Take 1,000 mg by mouth daily (with breakfast) . metoprolol (TOPROL XL) 200 MG 24 hr tablet Take 200 mg by mouth Daily. Multiple Vitamin (MULTIVITAMIN) capsule Take by mouth. polyethylene glycol (MIRALAX) powder Take by mouth. [...] that he does not use illicit drugs. REVIEW OF SYSTEMS GENERALLY: No fever, no night sweats, no anemia, no fatigue, no recent profound weight ch anges. EYES: No eye problems, no use of corrective lenses, no eye injury, no double vision, no bl indness. EARS, NOSE, AND THROAT: No changes in taste or smell, no hearing difficulty, no ringing in the ears, no ear drainage, no dizziness, no voice changes, no difficulty swallowing, no sig nificant snoring, no sleep apnea, no sinus problems, no major dental work. NEUROLOGICALLY: Please see the review of systems discussed above in the history of present illness. PSYCHIATRIC: + depression, no sleep disorders, no anxiety, no bipolar disorder, no psychot ic episodes. CARDIOVASCULAR: No heart attacks, no heart murmur, no heart fluttering, no chest pain, no ankle swelling. LUNG DISEASE: No shortness of breath, no cough, no tuberculosis, no bloody cough, no asth ma, no emphysema/COPD. GASTROINTESTINAL: No bowel disease, no nausea or vomiting, no rectal bleeding, no constipa tion, no stool incontinence, no liver disease, no gallbladder disease, no abdominal pain, no ulcers. KIDNEY DISEASE: No urinary frequency, no painful or difficult urination, no incontinence. ENDOCRINE: No diabetes, no thyroid disease, no osteopenia or osteoporosis, no breast drain age. SKIN: No breast lumps, no skin changes, no rashes, no itches. HEMATOLOGIC/LYMPHATIC: No enlarged lymph nodes, no easy or unusual bleeding, no personal h istory of cancer. RHEUMATOLOGIC: + joint arthritis, no rheumatoid arthritis. INTERIM PHYSICAL EXAMINATION: Blood pressure 150/84, pulse 77, height 1.753 m (5' 9"), weight 202.304 kg (446 lb). Body m ass index is 65.83 kg/(m^2). GENERAL: Gerard Burns is in no [...] RADIOGRAPHIC REVIEW: The patient s x-rays show increased bone growth but some evidence of pseudoarthrosis is s uggested. ASSESSMENT: Encounter Diagnoses Name Primary? 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 Most of the preoperative symptoms are resolving as exp ected. I would like to see his fusion progress more. I have tried repeated to get a bone g rowth stimulator and would like to try again now that we are beyond 9 months. His insuranc e has been slow to authorize this treatment despite its proven efficacy and may put him at r isk for further operation. I increased the patient s activities now allowing a 30 pound lifting restriction that can be gradually increased to an as tolerated limit. The patient should increase range of cinthya on activities as tolerated. The patient has completed formal rehabilitation now. They shou ld continue regular exercise and strengthening with the hope that they can avoid additional surgery. He will return in about 6 months with new x-rays. Hopefully a bone growth stimulator will be authorized now. ELECTRONICALLY SIGNED BY: Chauncey Lee MD, 03/16/2017 9:34 [facility] Plan of Treatment Not on filedocumented as [...] Pseudoarthrosis of cervical spine, initial encounter (HCC) - Primary | + + | S/P cervical spinal fusion Arthrodesis status | + + documented in this encounter
--- OUTSIDE RECORDS SUMMARY | ~2020-04-13 | XMS | Encounter Summary ---
Demographics + + + | Address | [address] | | | [place] [address] | + + + | Home Phone | | + + + | Preferred Language | Unknown | + + + | Marital Status | | + + + | Buddhism Affiliation | CHR | + + + | Race | White | + + + | Ethnic Group | Not or | + + + Author + + + | Author | [facility] | + + + | Organization | [facility] | + + + | Address | Unknown | + + + | Phone | Unavailable | + + + Support + + + + + | Name | Relationship | Address | Phone | + + + + + | Tico Burns | ECON | [address] | | | | | [place], [place] | | | | | [address] | | + + + + + Care Team Providers + +------+ + | Care [place] Records Management Officer Name | Role | Phone | + +------+ + | Moe Bella MD | PCP | | + +------+ + Encounter Details +--------+ + + + + | Date | Type | Department | Care Team | Description | +--------+ + + + + | 10/18/ | Abstract | Dig[facility] | Violetta Byers, | | | 2011 | | Center at [facility] [address] | [place] [address] | | | | | [address] | [facility] [address] | | | | | Mailcode: Center | [place], [place] | | | | | for Health and | [address] | | | | | [facility], [facility] [address] | [phone] | | | | | [place], [place] | | | | | | [address] | | | | | | [phone] | | | +--------+ + + + [...]
--- OUTSIDE RECORDS SUMMARY | ~2020-04-13 | XMS | Encounter Summary ---
Demographics + + + | Address | [address] | | | [place] [address] | + + + | Home Phone | | + + + | Preferred Language | Unknown | + + + | Marital Status | | + + + | Protestant Affiliation | CHR | + + + [...] + | Tico Burns | ECON | [address] | | | | | [place], [place] | | | | | [address] | | + + + + + Care Team Providers + +------+ + | Care Natural Resources Extension Educator Name | Role | Phone | + +------+ + | Moe Bella MD | PCP | | + +------+ + Encounter Details +--------+ + + + + | Date | Type | Department | Care Team | Description | +--------+ + + + + | 04/05/ | Abstract | Dig[facility]ive [facility] | Violetta Byers, | | | 2011 | | Center at [facility] [address] | [place] [address] | | | | | [address] | [facility] [address] | | | | | Mailcode: Center | [place], [place] | | | | | for Health and | [address] | | | | | [facility], [facility] [address] | [phone] | | | | | [place], [place] | | | | | | [address] | | | | | | [phone] | | | +--------+ + + + [...]
--- OUTSIDE RECORDS SUMMARY | ~2020-04-13 | XMS | Encounter Summary ---
Demographics + + + | Address | [address] | | | [place] [address] | + + + | Home Phone | | + + + | Preferred Language | Unknown | + + + | Marital Status | | + + + | Yazdanism Affiliation | 1013 | + + + | Race | Unknown | + + + | Ethnic Group | Unknown | + + + Author + + + | Author | [facility] | | | and [place] | + + + | Organization | [facility] | | | and [place] | + + + | Address | Unknown | + + + | Phone | Unavailable | + + + Support + + + + + | Name | Relationship | Address | Phone | + + + + + | Milady Burns | ECON | [address] | | | | | [place], [place] | | | | | [address] | | + + + + + Care Team Providers + +------+ + | Care Chief Hospital Administrator Name | Role | Phone | + [...] | | | | | | | ID | | | | | | | [...] Description | +--------+---------+ + + + | 06/01/ | Surgery | [facility] | Chauncey Lee MD | C4-5, C5-6, C6-7 | | 2016 | | MED CTR OR INTRA OP | [address] | Anterior Cervical | | | | [address] | [place] [address] | Discectomy Fusion | | | | [place] | [phone] | | | | | [address] | | | | | | [phone] | | | +--------+---------+ + + + [...] might be differ ent from the original. [facility] - [facility] NEUROSURGERY DISCHARGE SUMMARY Patient Name: Gerard [...] as needed for Pain. Unchanged Medications Details TextMaster BREEZE 2 TEST Disk Generic drug: Glucose Blood Use as directed TextMaster MICROLET LANCETS Misc Use as directed CRESTOR 40 MG tablet Generic drug: rosuvastatin Take 40 mg by mouth Daily. ergocalciferol 46918 UNITS capsule Take 50,000 Units by mouth [...] LANCETS MISC Use as directed ergocalciferol (ERGOCALCIFEROL) 09201 UNITS capsule 50,000 Units Take 50,000 Units by mouth Once a week. FLUoxetine (PROZAC) 20 mg capsule 20 mg Take 20 mg by mouth Daily. Glucose Blood (TOMAS BREEZE 2 TEST) DISK [...] t raise your hands over your head cki4oloq(s)after your surgery. Don t drive until your [...] this your 1 month post op appointment. 4883-6213 [email or web address]. [address] [place] [address], [place] [address]. All righ ts reserved. This information is [...] | | | 12 | | | 18790 UNITS capsule | | | | | [...] | | POC | | | STYanet LATESHA | | | [...] + | [facility] | [address] | [place] | [phone] | | [facility] | | [address] | | | - LABORATORY | | | | + + + + + POC Glucose (06/02/2016 11:36 AM PDT) + +---------+ + + + | Component | Value | Ref Range | Performed | Pathologist | | | | | At | Signature | + +---------+ + + + | Glucose, | 237 (H) | 70 - 150 mg/dL | [facility] | | | POC | | | STYanet LATESHA | | | [...] [address] | [place] | [phone] | | [facility] | | [address] | | | - LABORATORY | | | | + + + + + POC Glucose (06/02/2016 6:35 AM PDT) + +---------+ + + + | Component | Value | Ref Range | Performed | Pathologist | | | | | At | Signature | + +---------+ + + + | Glucose, | 218 (H) | 70 - 150 mg/dL | PAMELLAE | | | POC | | | [...] [address] | [place] | [phone] | | [facility] | | [address] | | | - LABORATORY | | | | + + + + + POC Glucose (06/01/2016 8:33 PM PDT) + +---------+ + + + | Component | Value | Ref Range | Performed | Pathologist | | | | | At | Signature | + +---------+ + + + | Glucose, | 318 (H) | 70 - 150 mg/dL | [facility] | | | POC | | | STYanet LATESHA | | | [...] + | [facility] | [address] | [place] | [phone] | | [facility] | | [address] | | | - LABORATORY | | [...] + | [facility] | [address] | [place] | [phone] | | [facility] | | [address] | | | - LABORATORY | | [...] | [address] | [place] | [phone] | | [facility] | | [address] | | | - LABORATORY | | [...] | Procedure Note | + + | Josh Quinteros Results In - 06/01/2016 2:11 PM PDT [...] | + + + + + | [facility] | [address] | [place], [place] | [phone] | | [facility] | | [address] | | | - LABORATORY | | | | + + + + + [place] Joan-Sunil Moyer No Shirley (06/01/2016 10:47 AM PDT) [...] 133 | 70 - 150 mg/dL | THONY | | | POC | | | [...] [address] | [place] | [phone] | | [facility] | | [address] | | | - LABORATORY | | | | + + + + + documented in this encounter Visit Diagnoses + + | Diagnosis | + + | Other spondylosis with radiculopathy, cervical region | + + documented in this encounter Administered Medications + +--------+ +---------+------+ + | Medication Order | MAR | Action | Dose | Rate | Site | | | Action | Date | | | | + +--------+ +---------+------+ + | bacitracin in NS solution PRN, | Given | 06/01/20 | 50,000 | | Surgical | | Starting Maura 06/01/16 at 0756, | | 16 7:56 | Units | | Site | | Intra-op | | AM PDT | | | | + +--------+ +---------+------+ + +---+---+ | | | +---+---+ documented in this encounter
--- OUTSIDE RECORDS SUMMARY | ~2020-04-13 | XMS | Encounter Summary ---
Demographics + + + | Address | [address] | | | [place] [address] | + + + | Home Phone | | + + + | Preferred Language | Unknown | + + + | Marital Status | | + + + | Yazidism Affiliation | 1013 | + + + | Race | Unknown | + + + | Ethnic Group | Unknown | + + + Author + + + | Author | [facility] | | | and [place] | + + + | Organization | [facility] | | | and [place] | + + + | Address | Unknown | + + + | Phone | Unavailable | + + + Support + + + + + | Name | Relationship | Address | Phone | + + + + + | Milady Burns | ECON | [address] | | | | | [place] | | | | | [address] | | + + + + + Care Team Providers + +------+ + | Care Gear Shaver Set Up Operator Name | Role | Phone | [...] [address] | [address] [place], [place] | | | | | [place], [place] | [address] | | | | | [address] | | | | | | [phone] | | | +--------+ + + + [...]
--- OUTSIDE RECORDS SUMMARY | ~2020-04-13 | XMS | Encounter Summary ---
Demographics + + + | Address | [address] | | | [place] [address] | + + + | Home Phone | | + + + | Preferred Language | Unknown | + + + | Marital Status | | + + + | Amish Affiliation | CHR | + + + | Race | White | + + + | Ethnic Group | Not or | + + + Author + + + | Author | [facility] | + + + | Organization | [facility] | + + + | Address | Unknown | + + + | Phone | Unavailable | + + + Support + + + + + | Name | Relationship | Address | Phone | + + + + + | Tico Burns | ECON | [address] | | | | | [place], [place] | | | | | [address] | | + + + + + Care Team Providers + +------+ + | Care Dog Food Shredder Operator Name | Role | Phone | [...] 01/30/ | Office | [facility] | Harpreet Fenton, | BMI 70 and over, | | 2012 | Visit | [place] at [facility] [address] | [address] [facility] | adult ([facility]) (Primary | | | | [address] | [address] | Dx); Morbid obesity | | | | Mailcode: [place] | [place], [place] | ([facility]ER[facility]); S/P gastric | | | | for Health and | [address] | bypass | | | | [facility] | [phone] | | | | | [place], [place] | | | | | | [address] | | | | | | [phone] | | | +--------+---------+ + + + [...] + + + | Blood Pressure | 125/59 | 01/30/2013 9:12 AM | | | | | PDT | | + + + + + | Pulse | 63 | 01/30/2013 9:12 AM | | | | | PDT | | + + + + + | Temperature | 36.6 C (97.9 F) | 01/30/2013 9:12 AM | | | | | PDT | | + + + + + | Respiratory Rate | 20 | 01/30/2013 9:12 AM | | | | | PDT | | + + + + + | Oxygen Saturation | - | - | | + + + + + | Inhaled Oxygen | - | - | | | Concentration | | | | + + + + + | Weight | 231.3 kg (510 lb) | 01/30/2013 9:12 AM | | | | | PDT | | + + + + + | Height | 175.3 cm (5' 9") | 01/30/2013 9:12 AM | | | | | PDT | | + + + + + | Body Mass Index | 75.31 | 01/30/2013 9:12 AM | | | | | PDT | | + + + + + documented in this encounter Progress Notes Harpreet Fenton MD - 02/02/2013 9:36 AM PDTI performed a history and physical examinati on of the patient and discussed his management with the resident. I reviewed the resident s note and agree with the documented findings and plan of care. HARPREET FENTON MD [facility] BARIATRIC SURGERY [address] Mailcode: [place] [id number] Oc iGraldo MD - 01/30/2013 9:24 AM PDT BARIATRIC SURGERY CLINIC PROGRESS NOTE: 01/30/2013 Attending Physician: Logan Fenton MD Author: Oc Bee MD; Bariatric Fellow, Pager [phone] CC: 2wk f/u bariatric surg Surgical Issue(s): 1. Morbid obesity 2. S/p Open RYGB 01/08/2013 Subjective: Gerard Burns is a 47 y.o. male 2wks s/p open RYGB w/ some midline incis ional drainage of fat necrosis. Otherwise few if any c/o. He is finally able to ambulate w/o much GARZA. Full bariatric ROS below. Boubacar phase 2 bariatric diet, and advanced to phase 3 tod ay by ARA. ROS: Weight: Maximum weight 587# Preoperative weight & BMI 538 Current Weight & BMI 510 Total weight loss 28# post-op Diet & Exercise: on phase 2 diet, just advanced Daily caloric intake --- kcal/d Foods: 50-60 g Protein, 64 oz. liquid Exercise: Able to walk without much GARZA now Bariatric Medications: MVI with iron once daily: Yes Calcium citrate 1200mg daily: Yes Actigall 300 BID: Yes, today Narcotics: No Symptoms: Early Satiety: Yes Nausea: No Dysphagia: No Vomiting: No Heartburn: No Abd Pain: No Constipation: No Diarrhea: No Nocturnal GERD, regurgitation, or cough: No Objective: Last Vitals: BP 125/59 | Pulse 63 | Temp (Src) 36.6 C (97.9 F) (Oral) | RR 20 | Ht 1.75 3 m (5' 9") | Wt 231.334 kg (510 lb) | BMI 75.31 kg/(m^2) Gen:NAD, Awake, alert. Abd: Morbidly obese, Soft, NT, ND, no peritoneal signs. Incis: Midline w/ 2 spots of open skin, covered w/ gauze, and minor fat necrosis coming out . No erythema, rubor, fluctuance, or TTP. Assessment and plan: Gerard Burns is a 47 y.o. male s/p RYGB. 1. Release to work starting tomorrow for 1/2 time. We have provided this gentleman with a l anastasiya for work. 2. RTC 4 wks for 6wk f/u. Dr. Arellano has personally interviewed and examined the patient, and concurs with the ass essment, exam and plan. Oc Bee MD MIS/Bariatric Fellow, Pager [phone] [facility] Current Outpatient Prescriptions on File Prior to Visit Medication Sig Dispense Refill acetaminophen 650 mg/20.3 mL Oral Suspension Take 20.3 mL by mouth every six hours as n eeded for moderate pain. 300 mL 1 Aspirin 81 mg Oral Tablet Take 81 mg by mouth once daily. Calcium Citrate-Vitamin D3 (CITRACAL + D PETITES) 200 mg calcium -250 unit Oral tablet Take 2 Tabs by mouth two times daily. Start 2 weeks after surgery. Indications: Hypocalcemi a Prevention 100 Tab 12 cloNIDine 0.1 mg Oral Tablet Take 0.1 mg by mouth two times daily. cyanocobalamin (VITAMIN B-12) 500 mcg Oral tablet Take 1 Tab by mouth once daily. Indic ations: Prevention of Vitamin B12 Deficiency 100 Tab 12 docusate sodium (COLACE) 100 mg Oral capsule Take 1 Cap by mouth two times daily. 30 C ap 1 famotidine 20 mg Oral tablet Take 1 Tab by mouth two times daily. Indications: Preventi on of Stress Ulcer 60 Tab 2 FLUoxetine (PROZAC) 20 mg Oral Capsule Take 20 mg by mouth two times daily. insulin glargine 100 unit/mL Subcutaneous Solution Inject 50 Units under the skin (SUBC ) once daily at bedtime. Indications: TYPE 2 DIABETES MELLITUS 10 mL 1 insulin lispro 100 unit/mL Subcutaneous Solution Use 2 units for 141-200, 4 units for 2 01-250, 6 units for 251-300, nj your doctor if > Indications: TYPE 2 DIABETES MELLITUS 10 mL 1 levothyroxine (SYNTHROID) 175 mcg Oral Tablet Take 175 mcg by mouth once daily. LOSARTAN/HYDROCHLOROTHIAZIDE (HYZAAR ORAL) Take by mouth. magnesium oxide 400 mg Oral tablet Take 1 Tab by mouth two times daily. 6 Tab 0 metFORMIN SR (GLUCOPHAGE XR) 500 mg Oral Tablet Extended Release 24 hr Take 500 mg by m outh once daily. Administer with evening meal. metoprolol tartrate 100 mg Oral Tablet Take 100 mg by mouth two times daily. oxyCODONE, immediate release, 10 mg Oral tablet Take 0.5-2 Tabs by mouth every three ho urs as needed. Indications: Pain 145 Tab 0 pediatric multivitamin chewable (CHILDRENS CHEWABLE VITAMINS) Oral tablet, chewable Konrad e 1 Tab by mouth two times daily. 100 Tab 12 prochlorperazine 10 mg Oral tablet Take 1 Tab by mouth three times daily as needed for nausea/vomiting. Max dose: 40 mg/day Indications: NAUSEA AND VOMITING 20 Tab 1 ursodiol 300 mg Oral capsule Take 1 Cap by mouth two times daily. Start Actigall 2 week s after surgery. Indications: Cholelithiasis Prevention 60 Cap 5 VITAMIN A/VITAMIN D2 (VITAMIN A & ERGOCALCIFEROL,D2, ORAL) Take by mouth. Past Medical History Diagnosis Date BP (high blood pressure) Numbness 2006 hands and feet High cholesterol Leg sore Depressed 2010 Diabetes mellitus 2005 Thyroid disease 2010 Cancer 2010 Past Surgical History Procedure Date Thyroid removal Gastric bypass attempted documented in this en counter Plan of Treatment Not on filedocumented as of this encounter Visit Diagnoses + + | Diagnosis | + + | BMI 70 and over, adult ([facility]) - Primary Body Mass Index 70 and over, adult | + + | Morbid obesity ([facility]) Morbid obesity | + + | S/P gastric bypass Bariatric surgery status | + + documented in this encounter
--- OUTSIDE RECORDS SUMMARY | ~2020-04-13 | XMS | Encounter Summary ---
Demographics + + + | Address | [address] | | | [place] [address] | + + + | Home Phone | | + + + | Preferred Language | Unknown | + + + | Marital Status | | + + + | Samaritan Affiliation | CHR | + + + | Race | White | + + + | Ethnic Group | Not or | + + + Author + + + | Author | [facility] | + + + | Organization | [facility] | + + + | Address | Unknown | + + + | Phone | Unavailable | + + + Support + + + + + | Name | Relationship | Address | Phone | + + + + + | Tico Burns | ECON | [address] | | | | | [place], [place] | | | | | [address] | | + + + + + Care Team Providers + +------+ + | Care Sports Equipment Supervisor Name | Role | Phone | + +------+ + | Moe Bella MD | PCP | | + +------+ + Encounter Details +--------+ + + + + | Date | Type | Department | Care Team | Description | +--------+ + + + + | 12/26/ | Hospital | Cardiac | Sjh, Car Ecg Tech | | | 2012 | Encounter | Non-Invasive Testing | [address] | | | | | at [address] | [facility] | | | | | [address] | [place] [address] | | | | | [address] | | | | | | [place], [address] [place] [address] | | | | | | [place], [place] | | | | | | [address] | | | | | | [phone] | | | +--------+ + + + [...] | + +--------+ + + + | 12 LEAD ECG | Routin | 12/26/2012 | Other specified | Results for this | | | e | 2:10 PM | pre-operative | procedure are in the | | | | PST | examination | results section. | + +--------+ + + + documented in this encounter Results 12 LEAD ECG (12/26/2012 2:10 PM PST) + + + + + + | Component | Value | Ref Range | Performed | Pathologist | | | | | At | Signature | + + + + + + | VENTRICULAR | 69 | BPM | [facility] | | | RATE | | | OF | | | | | | CARDIOLOGY | | + + + + + + | ATRIAL RATE | 69 | BPM | [facility] | | | | | | OF | | | | | | CARDIOLOGY | | + + + + + + | P-R | 186 | ms | [facility] | | | INTERVAL | | | OF | | | | | | CARDIOLOGY | | + + + + + + | QRS | 88 | ms | [facility] | | | DURATION | | | OF | | | | | | CARDIOLOGY | | + + + + + + | QT | 398 | ms | [facility] | | | | | | OF | | | | | | CARDIOLOGY | | + + + + + + | QTC | 426 | ms | [facility] | | | | | | OF | | | | | | CARDIOLOGY | | + + + + + + | P AXIS | 35 | degrees | [facility] | | | | | | OF | | | | | | CARDIOLOGY | | + + + + + + | R AXIS | -54 | degrees | [facility] | | | | | | OF | | | | | | CARDIOLOGY | | + + + + + + | T AXIS | 26 | degrees | [facility] | | | | | | OF | | | | | | CARDIOLOGY | | + + + + + + | EKG | Normal sinus rhythmLeft | | [facility] | | | DIAGNOSIS | anterior fascicular | | OF | | | | blockAbnormal ECG"I have | | CARDIOLOGY | | | | personally interpreted | | | | | | this report, either | | | | | | alone or with a | | | | | | trainee."Confirmed by | | | | | | AMITA TAN ([id number]) | | | | | | on 12/26/2012 10:49:35 PM | | | | + + + + + + + + | Specimen | + + | | + + + + + | Narrative | Performed At | + + + | Please click | [facility] OF | | on view image for the detailed interpretation from [employer] results. | CARDIOLOGY | + + + + + + + + | Performing | Address | City/State/Zipcode | Phone Number | | Organization | | | | + + + + + | [facility] | [address] | [place], [place] | | | CARDIOLOGY | [address] | [address] | | + + + + + documented in this encounter Visit Diagnoses Not on filedocumented in this encounter
--- OUTSIDE RECORDS SUMMARY | ~2020-04-13 | XMS | Encounter Summary ---
Demographics + + + | Address | [address] | | | [place] [address] | + + + | Home Phone | | + + + | Preferred Language | Unknown | + + + | Marital Status | | + + + | Synagogue Affiliation | CHR | + + + | Race | White | + + + | Ethnic Group | Not or | + + + Author + + + | Author | [facility] | + + + | Organization | [facility] | + + + | Address | Unknown | + + + | Phone | Unavailable | + + + Support + + + + + | Name | Relationship | Address | Phone | + + + + + | Tico Burns | ECON | [address] | | | | | [place], [place] | | | | | [address] | | + + + + + Care Team Providers + +------+ + | Care Solar Sales Representative Name | Role | Phone | + +------+ + | Moe Bella MD | PCP | | + +------+ + Encounter Details +--------+ + + + + | Date | Type | Department | Care Team | Description | +--------+ + + + + | 09/12/ | Abstract | [facility] | Jesus Perez, | | | 2012 | | [place] at [facility] [address] | [address] | | | | | [address] | [address] | | | | | Mailcode: Center | [place], [place] | | | | | [facility] and | [address] | | | | | [facility], [place] [address] | [phone] | | | | | [place], [place] | | | | | | [address] | | | | | | [phone] | | | +--------+ + + + [...]
--- OUTSIDE RECORDS SUMMARY | ~2020-04-13 | XMS | Encounter Summary ---
Demographics + + + | Address | [address] [facility] | | | [place] [address] | + + + | Home Phone [...] + | Tico Burns | ECON | [address] | | | | | [place], [place] | | | | | [address] | | + + + + + Care Team Providers + +------+ + | Care Landscape Laborer Name | Role | Phone | + +------+ + | Moe Bella MD | PCP | | + +------+ + Reason for Visit + + + | Reason | Comments | + + + | Erroneous Encounter | | | - Disregard | | + + + Encounter Details +--------+ + + + + | Date | Type | Department | Care Team | Description | +--------+ + + + + | 02/28/ | Cupola Operator | Dig[facility] | Jesus Perez, | | | 2012 | | [facility] at [facility] [address] | [address] [facility] | | | | | [address] | [address] | | | | | Mailcode: Center | [place], [place] | | | | | [facility] and | [address] | | | | | [facility] 2 | [phone] | | | | | [place], [place] | | | | | | [address] | | | | | | [phone] | | | +--------+ + + + [...]
--- OUTSIDE RECORDS SUMMARY | ~2020-04-13 | XMS | Encounter Summary ---
Demographics + + + | Address | [address] [facility] | | | [place] [address] | + + + | Home Phone [...] + + + | Author | [facility] | + + + | Organization | [facility] | + + + | Address | Unknown | + + + | Phone | Unavailable | + + + Support + + + + + | Name | Relationship | Address | Phone | + + + + + | Tico Burns | ECON | [address] | | | | | [place], [place] | | | | | [address] | | + + + + + Care Team Providers + +------+ + | Care Blacksmith Apprentice Name | Role | Phone | + [...] | +--------+ + + + + | 03/03/ | Abstract | [facility] | Elijahisac Jesus, | Medical Records | | 2016 | | [place] at [facility] [address] | [address] [facility] | Review | | | | [address] | [facility] | | | | | Mailcode: [place] | [place], [place] | | | | | and | [address] | | | | | [facility] 2 | [phone] | | | | | [place], [place] | | | | | | [address] | | | | | | [phone] | | | +--------+ + + + [...]
--- OUTSIDE RECORDS SUMMARY | ~2020-04-13 | XMS | Encounter Summary ---
Demographics + + + | Address | [address] [facility] | | | [place] [address] | + + + | Home Phone [...] + | Tico Burns | ECON | [address] | | | | | [place], [place] | | | | | [address] | | + + + + + Care Team Providers + +------+ + | Care Casino Dealer Name | Role | Phone | + [...] | | | | (HCC) Type | [address] | [address] | | | | | II or | [address] | Mailcode: | | | | | unspecified | [place], | [facility] | | | | | type | [place] [address] | Health and | | | | | diabetes | Phone: | Healing, | | | | | mellitus | [phone] | [address] | | | | | without | Fax: | [place], [place] | | | | | mention of | [phone] | [address] | | | | | complication | | Phone: | | | | | , not stated | | [phone] | | | | | as | | Fax: | | | | | uncontrolled | | [phone] | +--------+--------+ + + + + Encounter Details +--------+---------+ + + + | Date | Type | Department | Care Team | Description | +--------+---------+ + + + | 04/24/ | Office | Digestive Health | Harpreet Fenton, | Follow-up | | 2012 | Visit | Center at [facility] [address] | [address] [facility] | examination after | | | | [address] | [address] | abdominal surgery | | | | Mailcode: Center | [place], [place] | (Primary Dx); Status | | | | for Health and | [address] | post bariatric | | | | [facility], [facility] | [phone] | surgery | | | | [place], [place] | | | | | | [address] | | | | | | [phone] | | | +--------+---------+ + + + [...] + + + | Blood Pressure | 165/83 | 04/24/2013 9:43 AM | | | | | PDT | | + + + + + | Pulse | 68 | 04/24/2013 9:43 AM | | | | | PDT | | + + + + + | Temperature | 37.1 C (98.7 F) | 04/24/2013 9:43 AM | | | | | PDT | | + + + + + | Respiratory Rate | 17 | 04/24/2013 9:43 AM | | | | | PDT | | + + + + + | Oxygen Saturation | - | - | | + + + + + | Inhaled Oxygen | - | - | | | Concentration | | | | + + + + + | Weight | 205.8 kg (453 lb 9.6 | 04/24/2013 9:43 AM | | | | oz) | PDT | | + + + + + | Height | - | - | | + + + + + | Body Mass Index | 66.99 | 04/12/2013 8:47 PM | | | | | PDT | | + + + + + documented in this encounter Progress Notes Harpreet Fenton MD - 05/06/2013 2:08 PM PDTI performed a history and physical examinati on of the patient and discussed his management with the resident. I reviewed the resident s note and agree with the documented findings and plan of care. HARPREET FENTON MD [facility] [address] Mailcode: [place] [address] Rodriguez Wild MD - 04/24/2013 9:58 AM PDT04/24/2013 Gerard Ron Katy presents 2 weeks status post fatty tumor removal. Current concerns include: partial wound dehiscence Pt denies: fever, chills, nausea, vomiting. Pain controlled by: oxycodone. Physical exam: BP 165/83 | Pulse 68 | Temp (Src) 37.1 C (98.7 F) (Oral) | RR 17 | Wt 205.752 kg (453 l b 9.6 oz) | BMI 66.95 kg/(m^2) General appearance: healthy, alert and cooperative Lungs: negative Cardiac: Rate, rhythm, regular, no murmur, gallop or bruits. No peripheral edema. Abdomen: obese with grade 3 pannus. Incision partially dehisced with serous drainage. No si gnificant cellulitis. Assessment: Local care for now. No abx needed at this point. Plan: Patient will follow up in 2 weeks. Oxycodone refil. Phentermine for 30 days. documented in this encounter Plan of Treatment Not on filedocumented as of this encounter Visit Diagnoses + + | Diagnosis | + + | Follow-up examination after abdominal surgery - Primary Follow-up examination, | | following other surgery | + + | Status post bariatric surgery Bariatric surgery status | + + documented in this encounter"
--- OUTSIDE RECORDS SUMMARY | ~2020-04-13 | XMS | Encounter Summary ---
Demographics + + + | Address | [address] [facility] [address] | | | [place] [address] | + + + | Home Phone [...] + | Tico Burns | ECON | [address] | | | | | [place], [place] | | | | | [address] | | + + + + + Care Team Providers + +------+ + | Care Certified Medical Technician Assistant Name | Role | Phone | + +------+ + | Moe Bella MD | PCP | | + +------+ + Encounter Details +--------+ + + + + | Date | Type | Department | Care Team | Description | +--------+ + + + + | 04/02/ | Abstract | Digestive Health | Violetta Byers, | | | 2011 | | Center at [facility] [address] | [address] | | | | | [address] | [facility] [address] | | | | | Mailcode: Center | [place], [place] | | | | | for Health and | [address] | | | | | [facility], [facility] 2 | [phone] | | | | | [place], [place] | | | | | | [address] | | | | | | [phone] | | | +--------+ + + + [...]
--- OUTSIDE RECORDS SUMMARY | ~2020-04-13 | XMS | Encounter Summary ---
Demographics + + + | Address | [address] [facility] | | | [place] [address] | + + + | Home Phone | | + + + | Preferred Language | Unknown | + + + | Marital Status | | + + + | Episcopalian Affiliation | 1013 | + + + | Race | Unknown | + + + | Ethnic Group | Unknown | + + + Author + + + | Author | [facility] | | | and [place] | + + + | Organization | [facility] | | | and [place] | + + + | Address | Unknown | + + + | Phone | Unavailable | + + + Support + + + + + | Name | Relationship | Address | Phone | + + + + + | Milady Burns | ECON | [address] | | | | | [place], [place] | | | | | [address] | | + + + + + Care Team Providers + +------+ + | Care Geoint Analyst Name | Role | Phone | [...] | | | | | | | [place] | | | | | | | [...] + + | 06/01/ | Surgery | [facility] | Chauncey Lee MD | C4-5, C5-6, C6-7 | | 2016 | | MED CTR OR INTRA OP | [address] | Anterior Cervical | | | | [address] | [place] [address] | Discectomy Fusion | | | | [place] | [phone] | | | | | [address] | | | | | | [phone] | | | +--------+---------+ + + + [...] ent from the original. [facility] NEUROSURGERY DISCHARGE SUMMARY Patient Name: Gerard Burns [...] as needed for Pain. Unchanged Medications Details TASCET BREEZE 2 TEST Disk Generic drug: Glucose Blood Use as directed TASCET MICROLET LANCETS Misc Use as directed CRESTOR 40 MG tablet Generic drug: rosuvastatin Take 40 mg by mouth Daily. ergocalciferol 32504 UNITS capsule Take 50,000 Units by mouth [...] LANCETS MISC Use as directed ergocalciferol (ERGOCALCIFEROL) 54268 UNITS capsule 50,000 Units Take 50,000 Units [...] t raise your hands over your head fmb2rixw(s)after your surgery. Don t drive until your [...] doctor. Your incision mayhave beenclosed using sutures, uzly, or strips of tape. You can allow [...] this your 1 month post op appointment. 8636-2042 [employer] [address] [place] [address], [place] [address]. All righ ts reserved. This information is [...] | | | 12 | | | [address]36 UNITS capsule | | | | | [...] + | [facility] | [address] | [place] | [phone] | | [facility] | | [address] | | | - LABORATORY | | [...] [address] | [place] | [phone] | | [facility] | | [address] | | | - LABORATORY | | [...] [address] | [place] | [phone] | | [facility] | | [address] | | | - LABORATORY | | [...] + | [facility] | [address] | [place] | [phone] | | [facility] | | [address] | | | - LABORATORY | | [...] + | [facility] | [address] | [place] | [phone] | | [facility] | | [address] | | | - LABORATORY | | [...] [address] | [place] | [phone] | | [facility] | | [address] | | | - LABORATORY | | [...] + | [facility] | [address] | [place], [place] | [phone] | | [facility] | | [address] | | | - LABORATORY | | [...] [address] | [place] | [phone] | | [facility] | | [address] | | | - LABORATORY | | [...]
--- OUTSIDE RECORDS SUMMARY | ~2020-04-13 | XMS | Encounter Summary ---
Demographics + + + | Address | [address] [facility] | | | [place] [address] | + + + | Home Phone | | + + + | Preferred Language | Unknown | + + + | Marital Status | | + + + | Orthodoxy Affiliation | CHR | + + + [...] + | Tico Burns | ECON | [address] | | | | | [place], [place] | | | | | [address] | | + + + + + Care Team Providers + +------+ + | Care Cutting Machine Operator Helper Name | Role | Phone | [...] surgery | MD [address] | [address] | | | | | status | Valent[address] Horner | [address] | | | | | Procedures | [address] | Center for | | | | | CONSULT TO | [place], [place] | [facility] and | | | | | BARIATRIC | [address] | Healing, | | | | | SURGERY | Phone: | Building [address] | | | | | | [phone] | [place], [place] | | | | | | Fax: | [address] | | | | | | [phone] | Phone: | | | | | | | [phone] | | | | | | | Fax: | | | | | | | [phone] | +--------+--------+ + + + + Encounter Details +--------+---------+ + + + | Date | Type | Department | Care Team | Description | +--------+---------+ + + + | 01/30/ | Office | Digestive Health | Joaquina Tom, | Morbid obesity with | | 2017 | Visit | Center at [facility] [address] | [address] [facility] | BMI of 60.0-69.9, | | | | [address] [facility] | [address] | adult (HCC) (Primary | | | | for Health and | [place], [place] | Dx) | | | | [facility] 2 | [address] | | | | | [place], [place] | [phone] | | | | | [address] | | | | | | [phone] | | | +--------+---------+ + + + [...] Follow-Up Patient referred by: Moe Bella MD [facility] [address] [facility] [place] [address] Documented time of visit: 12:16 pm to 12:53pm (37 minutes [id number] with patient) Surgery: Sleeve Gastrectomy Date of Surgery: 01/08/13 Subjective: Tolerating Bariatric Diet: Yes - States he basically cut out carbs but upon recall below, a ppears to have just reduced and sometimes [...] by a quart of water Dinner: ~6pm german rice, roth, pork, steamed carrots, drank 1-2 [...] a time; got bett er orthotics from core filer - picks them up next week Hovering [...] Tom RD, CNSC, LD Clinical Dietitian Specialist [facility] Office: Email: [email or web address] Pager: [phone] documented in this en counter Plan of Treatment Not on filedocumented as of this encounter Procedures + +--------+ + + + | Procedure Name | Priori | Date/Time | Associated Diagnosis | Comments | | | ty | | | | + +--------+ + + + | [place] [facility]NT RE-ASSESSMNT | Routin | 01/30/2017 | [...]
--- OUTSIDE RECORDS SUMMARY | ~2020-04-13 | XMS | Clinical Summary ---
Demographics + + + | Address | [address] | | | [place] [address] | + + + | Home Phone | | + + + | Preferred Language | Unknown | + + + | Marital Status | | + + + | Samaritan Affiliation | 1013 | + + + | Race | Unknown | + + + | Ethnic Group | Unknown | + + + Author + + + | Author | [facility] | | | and [place] | + + + | Organization | [facility] | | | and [place] | + + + | Address | Unknown | + + + | Phone | Unavailable | + + + Support + + + + + | Name | Relationship | Address | Phone | + + + + + | Milady Burns | ECON | [address] | | | | | [place], [place] | | | | | [address] | | + + + + + Care Team Providers + +------+ + | Care Craft Demonstrator Name | Role | Phone | + +------+ + | Moe Bella MD | PCP | | + +------+ + Allergies + + + + + + | Active Allergy | Reactions | Severity | Noted | Comments | | | | | Date | | + + + + + + | Codeine Sulfate | Itching, Rash | Low | | | + + + + + + | Gadolinium | Other (See Comments) | Medium | 03/06/20 | Sneezing and some | | Derivatives | | | 18 | redness around the | | | | | | eyes after the | | | | | | administration of 25 | | | | | | mL MRI contrast | | | | | | (Multihance) on | | | | | | 03/06/18 | + + + + + + Medications + + + +---------+------+------+-------+ | Medication | Sig | Dispensed | Refills | Star | End | Statu | | | | | | t | Date | s | | | | | | Date | | | + + + +---------+------+------+-------+ | rosuvastatin | Take 40 mg by mouth | | 0 | 07/06 | | Activ | | (CRESTOR) 40 MG | Daily. | | | 02/22 | | e | | tablet | | | | 12 | | | + + + +---------+------+------+-------+ | ergocalciferol | Take 50,000 Units by | | 0 | 07/06 | | Activ | | (ERGOCALCIFEROL) | mouth Once a week. | | | 02/22 | | e | | 33331 UNITS capsule | | | | 12 | | | + + + +---------+------+------+-------+ +---+ + | | Additional | | | InformationPatient | | | not taking. Reported | | | on 02/16/2020 1:40 | | | PM | +---+ + + + +---+---+------+---+-------+ | Glucose Blood | Use as directed | | 0 | 07/06 | | Activ | | (TOMAS BREEZE 2 | | | | 02/22 | | e | | TEST) DISK | | | | 12 | | | + + +---+---+------+---+-------+ +---+ + | | Additional | | | InformationPatient | | | not taking. Reported | | | on 02/16/2020 1:40 | | | PM | +---+ + + + +---+---+------+---+-------+ | TOMAS MICROLET | Use as directed | | 0 | 07/06 | | Activ | | LANCETS MISC | | | | 02/22 | | e | | | | | | 12 | | | + + +---+---+------+---+-------+ | | Take 100-25 mg by | | 0 | 07/06 | | Activ | | losartan-hydrochloro | mouth Daily. | | | 02/22 | | e | | thiazide (HYZAAR) | | | | 12 | | | | 100-25 MG per tablet | | | | | | | + + +---+---+------+---+-------+ | FLUoxetine | Take 20 mg by mouth | | 0 | 07/06 | | Activ | | (PROZAC) 20 mg | Daily. | | | 02/22 | | e | | capsule | | | | 12 | | | + + +---+---+------+---+-------+ +---+ + | | Additional | | | InformationPatient | | | not taking. Reported | | | on 02/16/2020 1:40 | | | PM | +---+ + + + +--------+---+------+---+-------+ | cyclobenzaprine | Take 1 tablet by | 90 | 3 | 05/06 | | Activ | | (FLEXERIL) 10 mg | mouth every 8 hours | tablet | | 07/25 | | e | | tablet | as needed for Muscle | | | 16 | | | | | spasms. | | | | | | + + +--------+---+------+---+-------+ +---+ + | | Additional | | | InformationPatient | | | not taking. Reported | | | on 02/16/2020 1:40 | | | PM | +---+ + + + +---+---+------+---+-------+ | calcium | Take by mouth. | | 0 | 03/2 | | Activ | | citrate-vitamin D3 | | | | 2/20 | | e | | (CITRACAL | | | | 13 | | | | PETITES/VITAMIN D) | | | | | | | | 200-250 mg-unit | | | | | | | | tablet | | | | | | | + + +---+---+------+---+-------+ | gabapentin | Take 900 mg by mouth | | 0 | 02/ | | Activ | | (NEURONTIN) 300 mg | 2 times daily. | | | 20 | | e | | capsule | | | | 17 | | | + + +---+---+------+---+-------+ | Multiple Vitamin | Take by mouth. | | 0 | 06/1 | | Activ | | (MULTIVITAMIN) | | | | 0/20 | | e | | capsule | | | | 13 | | | + + +---+---+------+---+-------+ | polyethylene | Take by mouth. | | 0 | 06/1 | | Activ | | glycol (MIRALAX) | | | | 0/20 | | e | | powder | | | | 13 | | | + + +---+---+------+---+-------+ | Cyanocobalamin | Take 1,000 Units by | | 0 | | | Activ | | (VITAMIN B12) 1000 | mouth Once a week. | | | | | e | | MCG TBCR | | | | | | | + + +---+---+------+---+-------+ | aspirin 81 MG | Take 81 mg by mouth | | 0 | | | Activ | | tablet | Daily. | | | | | e | + + +---+---+------+---+-------+ | cloNIDine | Take by mouth. | | 0 | | | Activ | | (CATAPRES) 0.1 mg | | | | | | e | | tablet | | | | | | | + + +---+---+------+---+-------+ | atorvaSTATin | Take 1 tablet by | | 0 | 05/0 | | Activ | | (LIPITOR) 80 MG | mouth nightly. | | | 8/20 | | e | | tablet | | | | 18 | | | + + +---+---+------+---+-------+ | cephalexin | Take 1 capsule by | | 0 | 05/0 | | Activ | | (KEFLEX) 500 mg | mouth 4 (four) times | | | 8/20 | | e | | capsule | daily. | | | 18 | | | + + +---+---+------+---+-------+ | Pediatric Multiple | Take 1 Tab by mouth | | 0 | 03/0 | | Activ | | Vit-C-FA (CHILDRENS | two times daily. | | | 8/20 | | e | | CHEWABLE VITAMINS) | | | | 13 | | | | CHEW | | | | | | | + + +---+---+------+---+-------+ | metFORMIN | Take 1,000 mg by | | 0 | 07/1 | | Activ | | (GLUCOPHAGE-XR) 500 | mouth Daily. | | | 0/20 | | e | | mg 24 hr tablet | | | | 19 | | | + + +---+---+------+---+-------+ | metoprolol | Take 100 mg by mouth | | 0 | 07/1 | | Activ | | tartrate (LOPRESSOR) | 2 times daily. | | | 0/20 | | e | | 100 mg tablet | | | | 19 | | | + + +---+---+------+---+-------+ | LEVOTHYROXINE | Take 500 mcg by | | 0 | 07/1 | | Activ | | SODIUM PO | mouth Daily. | | | 6/20 | | e | | | | | | 19 | | | + + +---+---+------+---+-------+ | insulin glargine | Inject 40 Units | | 0 | 06/1 | | Activ | | (LANTUS) 100 | under the skin 2 | | | 0/20 | | e | | units/mL injection | times daily. As | | | 13 | | | | (vial) | directed. | | | | | | + + +---+---+------+---+-------+ | insulin lispro | Inject 10 Units | | 0 | 06/1 | | Activ | | (HUMALOG) 100 | under the skin 3 | | | 0/20 | | e | | units/mL injection | times daily. And | | | 13 | | | | (vial) | sliding scale. | | | | | | + + +---+---+------+---+-------+ | liraglutide | Inject 1.8 mg under | | 0 | 08/3 | | Activ | | (VICTOZA) 18 mg/3 mL | the skin Daily as | | | 20 | | e | | injection | needed. | | | 17 | | | + + +---+---+------+---+-------+ | lactulose 10 g/15 | Take by mouth Daily | | 0 | | | Activ | | mL solution | as needed. | | | | | e | + + +---+---+------+---+-------+ | buPROPion | Take 300 mg by mouth | | 0 | | | Activ | | (WELLBUTRIN XL) 300 | every morning. | | | | | e | | mg 24 hr tablet | | | | | | | + + +---+---+------+---+-------+ | ibuprofen | Take 800 mg by mouth | | 0 | | | Activ | | (ADVIL,MOTRIN) 800 | nightly as needed. | | | | | e | | MG tablet | | | | | | | + + +---+---+------+---+-------+ | acetaminophen | Take 1,000 mg by | | 0 | | | Activ | | (TYLENOL) 500 mg | mouth nightly as | | | | | e | | tablet | needed. | | | | | | + + +---+---+------+---+-------+ Active Problems + + + | Problem | Noted Date | + + + | Postoperative hypothyroidism | 02/17/2019 | + + + | Benign essential hypertension | 03/07/2018 | + + + | Dyslipidemia | 03/07/2018 | + + + | Type 2 diabetes mellitus with hyperglycemia | 03/07/2018 | + + + | Pseudoarthrosis of cervical spine, initial encounter | 03/16/2017 | + + + | History of sleeve gastrectomy | 01/30/2017 | + + + | Skin breakdown | 01/30/2017 | + + + | Vitamin D deficiency disease | 01/30/2017 | + + + | Vitamin B 12 deficiency | 01/30/2017 | + + + | Candidal intertrigo | 01/12/2017 | + + + | S/P cervical spinal fusion | 07/11/2016 | + + + | BMI 60.0-69.9, adult | 05/31/2016 | + + + | H/O Thyroid cancer | 05/31/2016 | + + + | Beta Patricia Use | 05/31/2016 | + + + | Cervical spondylosis with radiculopathy | 04/04/2016 | + + + | Degenerative disc disease, cervical | 04/04/2016 | + + + | Foraminal stenosis of cervical region | 04/04/2016 | + + + | Left arm weakness | 04/04/2016 | + + + | Sleep apnea | 04/04/2016 | + + + + + | Overview: on CPAP | + + + + + | MORBID OBESITY | 06/18/2012 | + + + | Hypertension | 06/18/2012 | + + + | Hyperlipidemia | 06/18/2012 | + + + | DM (diabetes mellitus) | 06/18/2012 | + + + | Edema | 06/18/2012 | + + + | Nephrolithiasis | 06/18/2012 | + + + | Panniculitis | 06/18/2012 | + + + | THYROID CANCER | 07/21/2011 | + + + + + | Overview: Overview: | | Stage1 papillary thyroid cancer. | | Thyroglobulin antibodies | + + + + + | THYROID NODULE | 06/12/2011 | + + + | Depression | | + + + | Hypothyroidism | | + + + | DIABETES MELLITUS, TYPE II, UNCONTROLLED, 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 DEPENDENT | | + + + | Arthritis | | + + + Encounters +--------+ + + + + | Date | Type | Specialty | Care Team | Description | +--------+ + + + + | 02/24/ | Orders Only | Physical Medicine | Vannessa Taylor | | | 2019 | | and Rehabilitation | [place] | | +--------+ + + + + | 02/24/ | Orders Only | Physical Medicine | Vannessa Taylor | | | 2019 | | and Rehabilitation | [place] | | +--------+ + + + + | 02/23/ | Telephone | Physical Medicine | Vannessa Taylor | Other | | 2019 | | and Rehabilitation | [facility] | | +--------+ + + + + | 02/15/ | Office | Physical Medicine | Vannessa Taylor | Lumbar radiculopathy | | 2019 | Visit | and Rehabilitation | [facility] | (Primary Dx); Bulge | | | | | | of lumbar disc | | | | | | without myelopathy; | | | | | | Morbid obesity with | | | | | | BMI of 60.0-69.9, | | | | | | adult ([facility]); | | | | | | Bilateral leg | | | | | | weakness | +--------+ + + + + | 02/10/ | Abstract | Physical Medicine | Vannessa Taylor | | | 2020 | | and Rehabilitation | [place] [facility] | | +--------+ + + + + from Last 3 Months Family History + + +------+ + | Medical History | Relation | Name | Comments | + + +------+ + | No known problems | Brother | | | + + +------+ + | No known problems | Child | | | + + +------+ + | No known problems | Child | | | + + +------+ + | No known problems | Child | | | + + +------+ + | No known problems | Child | | | + + +------+ + | No known problems | Child | | | + + +------+ + | Arthritis | Father | | | + + +------+ + | No known problems | Maternal | | | | | Aunt | | | + + +------+ + | Diabetes | Maternal | | | | | Aunt | | | + + +------+ + | Diabetes, NIDDM | Maternal | | | | | Aunt | | | + + +------+ + | Colon cancer | Maternal | | | | | Grandfath | | | | | er | | | + + +------+ + | No known problems | Maternal | | | | | Grandmoth | | | | | er | | | + + +------+ + | Arthritis | Mother | | | + + +------+ + | Cancer | Other | | | + + +------+ + | Diabetes | Other | | | + + +------+ + | Heart disease | Other | | | + + +------+ + | Depression | Other | | | + + +------+ + | Heart attack | Other | | | + + +------+ + | High cholesterol | Other | | | + + +------+ + | Osteoporosis | Other | | | + + +------+ + | Prostate cancer | Other | | | + + +------+ + | Stroke | Other | | | + + +------+ + | Thyroid disease | Other | | | + + +------+ + | Hypertension | Paternal | | | | | Grandfath | | | | | er | | | + + +------+ + | No known problems | Paternal | | | | | Grandmoth | | | | | er | | | + + +------+ + | No known problems | Sister | | | + + +------+ + | No known problems | Son | | | + + +------+ + | No known problems | Son | | | + + +------+ + | No known problems | Son | | | + + +------+ + + +------+ + + | Relation | Name | Status | Comments | + +------+ + + | Brother | | Alive | | + +------+ + + | Child | | Alive | | + +------+ + + | Child | | Alive | | + +------+ + + | Child | | Alive | | + +------+ + + | Child | | Alive | | + +------+ + + | Child | | Alive | | + +------+ + + | Father | | Alive | | + +------+ + + | Maternal Aunt | | Alive | | + +------+ + + | Maternal Aunt | | | | + +------+ + + | Maternal Aunt | | | | + +------+ + + | Maternal Grandfather | | | FLU | | | | (Age | | | | | 78) | | + +------+ + + | Maternal Grandmother | | | | + +------+ + + | Mother | | Alive | | + +------+ + + | Other | | Alive | GRANDMOTHER | + +------+ + + | Other | | | | + +------+ + + | Paternal Grandfather | | | | | | | (Age | | | | | 65) | | + +------+ + + | Paternal Grandmother | | | | + +------+ + + | Sister | | | | + +------+ + + | Son | | Alive | | + +------+ + + | Son | | Alive | | + +------+ + + | Son | | Alive | | + +------+ + + Social History + +-------+ +--------+------+ [...] Temperature | 36.7 C (98.1 F) | 03/12/2018 8:06 AM | | | | | PDT [...] | + + + + + | Hepatitis C | | | | | Screening | 4 | | | + + + + + | Vaccine: | | | | | Pneumococcal 19-64 | 0 | | | | (1 of 3 - PCV13) | | | | + + + + + | Vaccine: | | | | | Dtap/Tdap/Td (1 - | 5 | | | | Tdap) | | | | + + + + + | Diabetic Eye Exam | | | | | | 2 | | | + + + + + | Diabetic Foot Exam | | | | | | 2 | | | + + + + + | Colorectal Cancer | | | | | Screening | 4 | | | | (Colonoscopy) | | | | + + + + + | Vaccine: Zoster (1 | | | | | of 2) | 4 | | | + + + + + | Hemoglobin A1c | | 03/08/2018, 03/07/2018 | | | Screening | 8 | | | + + + + + | Vaccine: Influenza | | 09/25/2018, 08/20/2013 | | | (Season Ended) | 0 | | | + + + + + Implants + +--------+--------+ +--------+--------+--------+ | Implanted | Type | Area | Manufacture | Device | Shelf | Model | | | | | r | | Expira | / | | | | | | Identi | tion | Serial | | | | | | fier | Date | / Lot | + +--------+--------+ +--------+--------+--------+ | Imp Spn Plt Ti Zevo 55mm 3lvl | Generi | N/A: | SOFAMOR | | | [id number] | | - [id number]: Qty: 1 | c | Spine | DANEK - DIV | | | 5 / / | | on 06/01/2016 by Chauncey Lee | | [place] | [employer] | | | | | MD [facility] at [facility] | | al | - [facility] | | | | | [facility] | | | | | | | + +--------+--------+ +--------+--------+--------+ | Allgrft Grftn Pls 1cc Aseptic | Graft | N/A: | [employer] - | | 02/15/ | [id number] | | - [id number]: Qty: | | Spine | MEDT | | 2018 | | | 1 on 06/01/2016 by Jesus, | | [place] | | | | /[id number] | | Chauncey Bautista MD at [facility] | | al | | | | 8-220 | | [facility] | | | | | | / | + +--------+--------+ +--------+--------+--------+ | Allograft Cervical [id number] | Graft | N/A: | [employer] | | 12/08/ | [id number] | | - [id number]: Qty: 1 | | Spine | | | 2019 | | | on 06/01/2016 by Chauncey Lee | | [place] | TECHNOLOGIE | | | /[id number] | | MD Lily at [facility] | | al | S - SPNL | | | 854 | | [facility] | | | | | | /[id number] | | | | | | | | [address]27 | + +--------+--------+ +--------+--------+--------+ | Allograft Cervical [id number] | Graft | N/A: | [employer] | | 12/08/ | [id number] | | - [id number]: Qty: 1 | | Spine | | | 2019 | | | on 06/01/2016 by Chauncey Lee | | [place] | TECHNOLOGIE | | | /[id number] | | MD Lily at [facility] | | al | S - SPNL | | | 722 | | [facility] | | | | | | /[id number] | | | | | | | | [address]27 | + +--------+--------+ +--------+--------+--------+ | Allograft Cervical [id number] | Graft | N/A: | SP[employer]FT | | | [id number] | | - [id number]: Qty: 1 | | Spine | | | | | | on 06/01/2016 by Chauncey Lee | | [place] | TECHNOLOGIE | | | /[id number] | | MD Lily at [facility] | | al | S - SPNL | | | 855 | | [facility] | | | | | | /[id number] | | | | | | | | [address]27 | + +--------+--------+ +--------+--------+--------+ | Screw D-Thrd Slf-Drl 3.5x15mm | Screw | N/A: | SOF[employer]OR | | | [id number] | | - [id number]: Qty: 5 | | Spine | DANEK - DIV | | | 5 / / | | on 06/01/2016 by Chauncey Lee | | [place] | [employer] | | | | | MD Lily at [facility] | | al | - [facility] | | | | | [facility] | | | | | | | + +--------+--------+ +--------+--------+--------+ | Screw D-Thrd Slf-Drl 4.0x15mm | Screw | N/A: | SOFAMOR | | | [id number] | | - [id number]: Qty: 3 | | Spine | DANEK - DIV | | | 5 / / | | on 06/01/2016 by Chauncey Lee | | [place] | [employer] | | | | | MD Lily at [facility] | | al | - [facility] | | | | | [facility] | | | | | | | + +--------+--------+ +--------+--------+--------+ Results Not on filefrom Last 3 Months [...] + +------+ | MODA | MODA | [id number] | 11/05/19 | [phone] | [address] | PPO | | | [place] | | 17-Pre | 9 | [id number] | | | | [place] | | sent | | [place], | | | | [place] | | | | [place] [address] | | | | STONE | | | | | | | | EPO | | | | | | +-------+--------+ +--------+ + +------+ | MODA | MODA | [id number] | 11/05/19 | [phone] | [address] | PPO | | | [place] | | 20-Pre | 9 | [phone] | | | | [place] | | sent | | [place], | | | | [place] | | | | [place] [address] | | | | STONE | | | | | | | | EPO | | | | | | +-------+--------+ +--------+ + +------+ + +--------+ +--------+ + + | Guarantor Name | Accoun | Relation to | Date | Phone | Billing Address | | | t Type | Patient | of | | | | | | | | | | + +--------+ +--------+ + + | Gerard Burns | Person | Self [birth year] | [address] | | | al/Fam | | 1964 | [phone] | [place] [address] | | | yas | | | 5 (Home) | | | | | | | [phone] | | | | | | | 5 (Work) | | + +--------+ +--------+ + + | Gerard Burns | Person | Self | [birth year] | [address] | | | al/Fam | | 1965 | [phone] | [place] [address] | | | yas | | | 5 (Home) | | | | | | | [phone] | | | | | | | 5 (Work) | | + +--------+ +--------+ + + Advance Directives + + + + + | Type | Date Recorded | Patient | Explanation | | | | Vehicle Dynamics Engineer | | + + + + + | Power of | | | | | Turbo Electric Operator | | | | + + + + + | Advance | 04/04/2016 11:27 | | | | Directive | AM | | | + + + + + + + + + + | Code Status | Date | Date | Comments | | | Activated | Inactivated | | + + + + + | Full Code | 06/01/2016 | 06/03/2016 | | | | 12:34 PM | 1:28 AM | | + + + + +
--- OUTSIDE RECORDS SUMMARY | ~2020-04-13 | XMS | Encounter Summary ---
Demographics + + + | Address | [address] | | | [place] [address] | + + + | Home Phone | | + + + | Preferred Language | Unknown | + + + | Marital Status | | + + + | Worship Affiliation | 1013 | + + + | Race | Unknown | + + + | Ethnic Group | Unknown | + + + Author + + + | Author | [facility] | | | and [place] | + + + | Organization | [facility] | | | and [place] | + + + | Address | Unknown | + + + | Phone | Unavailable | + + + Support + + + + + | Name | Relationship | Address | Phone | + + + + + | Milady Burns | ECON | [address] | | | | | [place], [place] | | | | | [address] | | + + + + + Care Team Providers + +------+ + | Care Student Support Advisor Name | Role | Phone | + [...] | | | | | | | [place] | | | | | | | [...] + + | 06/01/ | Hospital | [facility] | Chauncey Lee MD | | | 2016 - | Encounter | [facility] | [address] | | | | | [address] | [place] [address] | | | 06/02/ | | [place] [address] | [phone] | | | 2015 | | [phone] | | | +--------+ + + + [...] might be differ ent from the original. [facility] Patient Name: Gerard [...] as needed for Pain. Unchanged Medications Details [employer] BREEZE 2 TEST Disk Generic drug: Glucose Blood Use as directed [employer] MICROLET LANCETS Misc Use as directed CRESTOR 40 MG tablet Generic drug: rosuvastatin Take 40 mg by mouth Daily. ergocalciferol 70412 UNITS capsule Take 50,000 Units by mouth [...] NOT CHANGED Medication Dose Last Dose Taken; TOAMS MICROLET LANCETS MISC Use as directed ergocalciferol (ERGOCALCIFEROL) 45510 UNITS capsule 50,000 Units Take 50,000 Units by mouth Once a week. FLUoxetine (PROZAC) 20 mg capsule 20 mg Take 20 mg by mouth Daily. Glucose Blood ([employer] BREEZE 2 TEST) DISK Use as directed [...] t raise your hands over your head [id number](s)after your surgery. Don t drive until your [...] this your 1 month post op appointment. [id number] [employer] [place] [address]. All righ ts reserved. This information is [...] | | | 12 | | | 76791 UNITS capsule | | | | | [...] + | [facility] | [address] | [place] | [phone] | | [facility] | | [address] | | | - LABORATORY | | [...] + | [facility] | [address] | [place] | [phone] | | [facility] | | [address] | | | - LABORATORY | | [...] | + + + + + | [facility] | [address] | [place] | [phone] | | [facility] | | [address] | | | - LABORATORY | | [...] [address] | [place] | [phone] | | [facility] | | [address] | | | - LABORATORY | | [...] + | [facility] | [address] | [place] | [phone] | | [facility] | | [address] | | | - LABORATORY | | [...] ST. | [address] | [place], [place] | [phone] | | [facility] | | [address] | | | - LABORATORY | | [...] ST. | [address] | [place] | [phone] | | [facility] | | [address] | | | - LABORATORY | | [...] [address] | [place] | [phone] | | [facility] | | [address] | | | - LABORATORY | | [...] | | | | | | | [facility] 06/01/16 at 1500, For 2 doses, | [...] PDT | | | | | Starting [facility] 06/01/16 at 1234, Use | | | [...] | | | | | | on [facility] 06/01/16 at 2100, | | | | [...] | | | | | | | [facility] 06/01/16 at 1300, CORRECTION | | | [...] | | | | | | | 8339-4933 Use NIGHT DOSE for | | | | | | | doses scheduled: HS, 3AM, | | | | | | | Nighttime [id number], | | | | | | | [...]
--- OUTSIDE RECORDS SUMMARY | ~2020-04-13 | XMS | Encounter Summary ---
Demographics + + + | Address | [address] | | | [place] [address] | + + + | Home Phone [...] + | Tico Burns | ECON | [address] | | | | | [place], [place] | | | | | [address] | | + + + + + Care Team Providers + +------+ + | Care Dairy Associate Name | Role | Phone | + +------+ + | Moe Bella MD | PCP | | + +------+ + Encounter Details +--------+ + + + + | Date | Type | Department | Care Team | Description | +--------+ + + + + | 12/24/ | Telephone | [facility] | Jesus Perez, | | | 2012 | | [place] [address] | [address] | | | | | [place] Mailcode: CH4S | [facility] | | | | | [facility] | [place], [place] | | | | | [facility] Healing, | [address] | | | | | [address] | [phone] | | | | | Floor [place], [place] | | | | | | [address] | | | | | | [phone] | | | +--------+ + + + [...]
--- OUTSIDE RECORDS SUMMARY | ~2020-04-13 | XMS | Encounter Summary ---
Demographics + + + | Address | [address] | | | [place] [address] | + + + | Home Phone | | + + + | Preferred Language | Unknown | + + + | Marital Status | | + + + | Uatsdin Affiliation | 1013 | + + + | Race | Unknown | + + + | Ethnic Group | Unknown | + + + Author + + + | Author | [facility] | | | [place] | + + + | Organization | [facility] | | | and [place] | + + + | Address | Unknown | + + + | Phone | Unavailable | + + + Support + + + + + | Name | Relationship | Address | Phone | + + + + + | Milady Burns | ECON | [address] | | | | | [place], [place] | | | | | [address] | | + + + + + Care Team Providers + +------+ + | Care Instructor Of Education Name | Role | Phone | + [...] W | | | | | [facility] [address] | [facility] | | | | | [place] | [address] [place] | | | | | [address] | [address] | | | | | [phone] | | | +--------+ + + + [...]
--- OUTSIDE RECORDS SUMMARY | ~2020-04-13 | XMS | Encounter Summary ---
Demographics + + + | Address | [address] | | | [place] [address] | + + + | Home Phone | | + + + | Preferred Language | Unknown | + + + | Marital Status | | + + + | Muslim Affiliation | CHR | + + + [...] + | Tico Burns | ECON | [address] | | | | | [place], [place] | | | | | [address] | | + + + + + Care Team Providers + +------+ + | Care Senior Integration Architect Name | Role | Phone | [...] + + | 04/11/ | Hospital | [facility] [address] | Jesus Fenton, | | | 2013 - | Encounter | [address] | [place] [address] [facility] | | | | | [place], [place] | [address] | | | 04/14/ | | [address] | [place], [place] | | | 2012 | | [phone] | [address] | | | | | | [phone] | | | | | | | [...] consult intraop for placement of a 16 Tajik ur ethral catheter, which was later removed, [...] SSI. 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 He will have a change in his [...] Phone Center 04/24/2013 10:00 AM Jesus Fenton [facility] Bariatric Surgery [phone] [facility] Your Follow-Up Plan Follow up with JESUS FENTON MD. Schedule an appointment as soon as possible for a vis it on 04/17/2013. (the office will call you to reschedule and see if your needs can be met wi th one visit) Contact information [address] [facility] [facility] [address] Other Discharge Orders and Instructions Medication Refill Instructions: If you need a refill on any narcotic pain medications, please call the clinic ([phone] ) by 2 pm on for any [...] during the day time hours by calling [facility] surgery office at [phone] - After hours, weekends and holidays, you may call the hospital rocket assembly operator at [phone] an d have the project production engineer Green Team for general surgery paged. Constipation: [...] in 24 hours. Outstanding labs/studies: CRISTIN HOBSON [facility] [address] [place] [address] Discharging Physician: CRISTIN HOBSON Attending Physician: Dr. 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 Nannette Duran MD - 04/13/2013 10:20 AM PDT GREEN SURGERY PROGRESS NOTE Hospital Day:2 Author; NANNETTE LUJAN MD Attending Physician: Dr. Fenton Interval Hx: High CBGs for which [facility] was consulted yesterday - further adjustments [...] Nannette Lujan MD, 100 mg at 04/13/13 0818 multivitamin [...] regimens -Will follow CBGs closely - appreciate [facility] help -Likely home tomorrow NANNETTE LUJAN [...] fatty tumor SUBJECTIVE: Pain well controlled on ACID WASH OPERATOR 01/12; denies SOB/CP/N/V; CPAP on OBJECTIVE: Vitals: [...] Burns is a 48 y.o. M, with [facility] s/f morbid obesity who is POD#0 s/p [...] Lovenox Trina Hutchinson MD Surgery, R1 Pager: [phone] documented in this encounter Plan of Treatment [...] NICHOLAS | [address] | [place], [place] | | | [facility] | [address] | [address] | | | TESTS | | | [...] MARRUFUSAM | [address] | [place] | | | [facility] | [address] | [address] | | | TESTS | | | [...] MARQUAM | [address] | [place], [place] | | | [facility] | [address] | [address] | | | TESTS | | | [...] NICHOLAS | [address] | [place], [place] | | | [facility] | [address] | [address] | | | TESTS | | | [...] MARQUAM | [address] | [place] | | | [facility] | [address] | [address] | | | TESTS | | | [...] MARQUAM | [address] | [place], [place] | | | [facility] | [facility] | [address] | | | TESTS | | | [...] NICHOLAS | [address] | [place], [place] | | | [facility] | [address] | [address] | | | TESTS | | | [...] MARQUAM | [address] | [place], [place] | | | [facility] | [address] | [address] | | | TESTS | | | [...] MARQUAM | [address] | [place], [place] | | | [facility] | [address] | [address] | | | TESTS | | | [...] NICHOLAS | [address] | [place], [place] | | | [facility] | [address] | [address] | | | TESTS | | | [...] MARQUAM | [address] | [place], [place] | | | [facility] | [address] | [address] | | | TESTS | | | [...] YU | [address] | [place], [place] | | | [facility] | [address] | [address] | | | TESTS | | | [...] | + + + + + | [facility] | [address] | [place] [address] | | | SERVICES, CORE | PARK [...] | + + + + + | [facility] | [address] | [place] [address] | | | SERVICES, CORE | TJ [...] | | | LABORATORY | | | LEBANESE | | | SERVICES, | | | [...] the MDRD equation recommended by the | [facility] | | National Kidney Disease Education Program. [...] | + + + + + | [facility] | [address] [facility] | [place] [address] | | | SERVICES, CORE | TJ [...] - MARQUAM | [address] | [place], [place] | | | [facility] | [facility] | [address] | | | TESTS | | | [...] NICHOLAS | [address] | [place], [place] | | | [facility] | [address] | [address] | | | TESTS | | | [...] MARQUAM | [address] | [place], [place] | | | [facility] | [address] | [address] | | | TESTS | | | [...] MARQUAM | [address] | [place], [place] | | | [facility] | [facility] | [address] | | | TESTS | | | [...] | + + + + + | SONAJ NICHOLAS | [address] | [place], [place] | | | [facility] | [address] | [address] | | | TESTS | | | [...] MARQUAM | [address] | [place], [place] | | | [facility] | [address] | [address] | | | TESTS | | | [...] [facility] | [address] | [place], [place] | | | [facility] | [address] | [address] | | | TESTS | | | [...] NICHOLAS | [address] | [place], [place] | | | [facility] | [facility] | [address] | | | TESTS | | | [...] MARQUAM | [address] | [place], [place] | | | [facility] | [address] | [address] | | | TESTS | | | [...] MARQUAM | [address] | [place], [place] | | | [facility] | [address] | [address] | | | TESTS | | | [...] NICHOLAS | [address] | [place], [place] | | | [facility] | [address] | [address] | | | TESTS | | | [...] MARQUAM | [address] | [place], [place] | | | [facility] | [address] | [address] | | | TESTS | | | [...] MARQUAM | [address] | [place], [place] | | | [facility] | [address] | [address] | | | TESTS | | | [...] NICHOLAS | [address] | [place], [place] | | | [facility] | [address] | [address] | | | TESTS | | | [...] MARQUAM | [address] | [place], [place] | | | [facility] | [facility] | [address] | | | TESTS | | | [...] EVELIAAM | [address] | [place], [place] | | | [facility] | [address] | [address] | | | TESTS | | | [...] NICHOLAS | [address] | [place], [place] | | | [facility] | [address] | [address] | | | TESTS | | | [...] MARQUAM | [address] | [place], [place] | | | [facility] | [address] | [address] | | | TESTS | | | [...] - MARQUAM | [address] | [place], [place] | | | [facility] | [address] | [address] | | | TESTS | | | [...] NICHOLAS | [address] | [place], [place] | | | [facility] | [address] | [address] | | | TESTS | | | [...] MARQUAM | [address] | [place], [place] | | | [facility] | [address] | [address] | | | TESTS | | | [...] - YU | [address] | [place], [place] | | | [facility] | [address] | [address] | | | TESTS | | | [...] NICHOLAS | [address] | [place], [place] | | | [facility] | [address] | [address] | | | TESTS | | | [...] MARQUAM | [address] | [place], [place] | | | [facility] | [address] | [address] | | | TESTS | | | [...] - MARQUAM | [address] | [place], [place] | | | [facility] | [address] | [address] | | | TESTS | | | [...] NICHOLAS | [address] | [place], [place] | | | [facility] | [address] | [address] | | | TESTS | | | [...] MARQUAM | [address] | [place], [place] | | | [facility] | [address] | [address] | | | TESTS | | | [...] MARQUAM | [address] | [place], [place] | | | [facility] | [facility] | [address] | | | TESTS | | | [...] NICHOLAS | [address] | [place], [place] | | | [facility] | [address] | [address] | | | TESTS | | | [...] gross | | | | | | lesions.[employer] | | | | | | sections [...] | + + + + + | [facility] | [address] | [place] [address] | | | PATHOLOGY | [address] [...]
--- OUTSIDE RECORDS SUMMARY | ~2020-04-13 | XMS | Encounter Summary ---
Demographics + + + | Address | [address] | | | [place] [address] | + + + | Home Phone | | + + + | Preferred Language | Unknown | + + + | Marital Status | | + + + | Temple Affiliation | 1013 | + + + | Race | Unknown | + + + | Ethnic Group | Unknown | + + + Author + + + | Author | [facility] | | | and [place] | + + + | Organization | [facility] | | | and [place] | + + + | Address | Unknown | + + + | Phone | Unavailable | + + + Support + + + + + | Name | Relationship | Address | Phone | + + + + + | Milady Burns | ECON | [address] | | | | | [place], [place] | | | | | [address] | | + + + + + Care Team Providers + +------+ + | Care Sample Paster Name | Role | Phone | + +------+ + | Myra Karimi MD | PCP | | + +------+ + Encounter Details +--------+ + + + + | Date | Type | Department | Care Team | Description | +--------+ + + + + | 03/06/ | Hospital | [facility] | Brooklynn Lew DO | Diagnosis unknown; | | 2018 - | Encounter | [facility] | [address] | Intracranial | | | | [address] | [place] [address] | hemorrhage (HCC); | | 03/12/ | | [place], [place] | [phone] | Hyperglycemia; | | 2018 | | [address] | | Elevated blood | | | | [phone] | | pressure reading; | | | | | | Morbid obesity due | | | | | | to excess calories | | | | | | (HCC); | | | | | | Cerebrovascular | | | | | | accident (CVA), | | | | | | unspecified | | | | | | mechanism (HCC) | +--------+ + + + + Social [...] + + + | Blood Pressure | 137/65 | 03/12/2018 8:06 AM | | | | | PDT | | + + + + + | Pulse | 82 | 03/12/2018 8:06 AM | | | | | PDT | | + + + + + | Temperature | 36.7 C (98.1 F) | 03/12/2018 8:06 AM | | | | | PDT | | + + + + + | Respiratory Rate | 19 | 03/12/2018 8:06 AM | | | | | PDT | | + + + + + | Oxygen Saturation | - | - | | + + + + + | Inhaled Oxygen | - | - | | | Concentration | | | | + + + + + | Weight | 200 kg (440 lb 14.7 | 03/12/2018 8:06 AM | | | | oz) | PDT | | + + + + + | Height | 172.7 cm (5' 8") | 03/12/2018 8:06 AM | | | | | PDT | | + + + + + | Body Mass Index | 67.04 | 03/12/2018 8:06 AM | | | | | PDT | | + + + + + documented in this encounter Discharge Summaries Job Miranda MD - 03/12/2018 7:42 AM PDTFormatting of this note might be different fro m the original. Discharge Summaries by Job Miranda MD at 03/12/18741 Author: Job Miranda MD Service: Hospitalist Author Type: Physician Filed: 03/12/18 1704 Date of Service: 03/12/18741 Status: Signed Rn Rehabilitation: Job Miranda MD (Physician) Patient: Matthias Burns : 1965 Date of Admission: 03/06/2018 Date of Discharge: 03/12/2018 Treatment Team: Consulting Physician: Wing Joan Humphrey MD Admitting Provider: Brooklynn Lew DO Discharging Provider: Job Miranda MD Discharge Diagnoses: Principal Problem (Resolved): CVA (cerebral vascular accident) (HCC) Active Problems: BMI 60.0-69.9, adult (HCC) Type 2 diabetes mellitus with hyperglycemia (HCC) Hypothyroidism Dyslipidemia Benign essential hypertension Procedures Performed: Chief Complaint: Headache Hospital Course: Matthias Burns is a 53 y.o. male with history of diabetes, hld, hypertension who was admit lou on 03/06/2018 with right sided headache and Associated symptoms dizziness, unstable gait, unable to write his name, blurry vision, double vision now resolved, mild confusion, right l eg weakness and found to have a CVA. MRI revealed 2 small patchy areas in the inferior left cerebellum which demonstrated subacute to early chronic infarcts. The patient was evaluated by physical therapy and was recommended to be discharged to [facility]. He was st arted on aspirin and atorvastatin. The patient was noted to have redness in the abdominal area and concern for cellulitis. The patient was started on iv abx with improvement. He was transitioned to PO antibiotics prior to discharge. Overall the patient did well and was discharged in stable condition. Discharge Exam and Data: Vital Signs: BP 137/65 (BP Location: Left forearm) | Pulse 82 | Temp 98.1 F (36.7 C) (Oral) | Res p 19 | Ht 1.727 m (5' 8") | Wt (!) 200 kg (440 lb 14.7 oz) | SpO2 95% | BMI 67.04 kg/m I&O Last 3 Shifts: No intake/output data recorded. Physical Examination: Constitutional: Alert and oriented to person, place, and time. Appears well-developed and w ell-nourished. HEENT: Neck supple, no JVD, non icteric sclera. Cardiovascular: Normal rate, regular rhythm, normal heart sounds.Exam reveals no appreciate d gallop or friction rub. No murmur heard. Pulmonary/Chest: Effort normal and breath sounds normal. No stridor. No respiratory distres s. no wheezes. no rales. exhibits no tenderness. Abdominal: Soft. Obese. Bowel sounds are normal. exhibits no distension and no mass. Ther e is no rebound and no guarding. There is erythema and redness in the lower abdominal area, improved from demarcated line. Extremeties/Musculoskeletal: Normal range of motion.exhibits no tenderness. exhibits no ed maura. Neurological: No cranial nerve deficit. Exhibits normal muscle tone. Coordination normal. Skin: Skin is warm and dry. No rash noted. No erythema. No pallor. Psychiatric: Has a normal mood and affect given situation. Behavior is normal. Judgment nor mal for patient. Recent Labs Recent Labs Lab 03/12/1840403/11/1841703/10/18 040 WBC 6.03 7.68 12.64* HGB 13.1* 13.6 12.9* HCT 37.2* 39.3 38.0* PLT 247 213 186 Recent Labs Lab 03/12/1840403/11/1841703/10/18 04003/09/18 1043 NA 140 138 137 -- K 3.7 3.9 3.5 -- CL 106 107 104 -- CO2 25 21* 24 -- BUN 10 13 13 -- CREATININE 0.9 1.0 1.2 -- GLUCOSE -- -- -- 386* Recent Labs Lab 03/06/18 1940 INR 0.9 Results Procedure Component Value Units Date/Time Blood Culture Set 1 [[id number]] Collected: 03/09/18 0259 Specimen: Blood from Blood Updated: 03/11/18522 Specimen Description BLOOD SPECIAL REQUESTS LAC CULTURE NO GROWTH 2 DAYS Blood Culture Set 2 [[id number]] Collected: 03/09/18 0249 Specimen: Blood from Blood Updated: 03/11/18522 Specimen Description BLOOD SPECIAL REQUESTS R HAND CULTURE NO GROWTH 2 DAYS Recent Radiology Results X-ray Chest 1 View Result Date: 03/09/2018 No evidence of pneumonia. RADIA Electronically signed by Chauncey Coreas MD on March 09 4:05AM Referring Provider Line: [phone] ID: [id number] Carotid Doppler, Bilateral Result Date: 03/07/2018 No hemodynamically significant stenoses in the bilateral carotid arteries. Validated veloci ty measurements with angiographic measurements and velocity criteria are extrapolated from d iameter data as defined by the Society of Radiologists in Ultrasound Consensus Conference Ra diology 2003; 229;340-346. RADIA Electronically signed by Buck Faith MD on Mar 07 2018 7:45AM Referring Provider Line: [phone] ID: [id number] Mri Brain W Wo And Mra Head Result Date: 03/06/2018 MRI HEAD: 1.No acute intracranial abnormality. There is no acute infarct. 2. There are 2 sm all patchy subcentimeter foci of signal abnormality in the inferior left cerebellum which de monstrate evidence of mild petechial hemorrhage and contrast enhancement. These are compatib le with small subacute to early chronic infarcts. There is no mass effect. 3. Mild chronic m icrovascular change. 4. No intracranial mass lesion, mass effect, or hydrocephalus. MRA HEAD : 1.Unremarkable MRA of intracranial circulation. No evidence of aneurysm or significant erica nosis. RADIA Electronically signed by Ridge Lloyd MD on Mar 06 2018 10:30PM Referring Provider Line: [phone] ID: [id number] Cardiac Adult With Bubble Study Result Date: 03/07/2018 1. This was a technically difficult study with suboptimal views secondary to body habitus. 2. Overall left ventricular systolic function is normal with, an EF between 55 - 60 %. 3. Th ere is mild concentric left ventricular hypertrophy. 4. No obvious clot visualized 5. negat tao bubble study seen in slide 35 Outstanding Issues: Patient to follow with his PCP Discharge Information: Follow up: Myra Karimi MD [address] [place] [id number] s/p CVA, diabetes mellitus, abdominal wall cellulitis Medication List START taking these medications atorvastatin 80 MG tablet QTY: 30 tablet Refills: 0 Commonly known as: LIPITOR Take 1 tablet by mouth nightly. cephALEXin 500 MG capsule QTY: 16 capsule Refills: 0 Commonly known as: KEFLEX Take 1 capsule by mouth 4 (four) times daily. CHANGE how you take these medications levothyroxine 200 MCG tablet Refills: 0 Commonly known as: SYNTHROID What changed: Another medication with the same name was removed. Continue taking this medi cation, and follow the directions you see here. metoprolol 25 MG tablet QTY: 60 tablet Refills: 0 Commonly known as: LOPRESSOR Take 1 tablet by mouth 2 (two) times daily. What changed: medication strength how much to take when to take this CONTINUE taking these medications aspirin 81 MG tablet Refills: 0 TOMAS BREEZE 2 TEST Disk Refills: 0 Generic drug: Glucose Blood TOMAS MICROLET LANCETS lancets Refills: 0 CITRACAL PETITES/VITAMIN D 200-250 MG-UNIT Tabs Refills: 0 Generic drug: Calcium Citrate-Vitamin D insulin glargine 100 UNIT/ML injection Refills: 0 Commonly known as: LANTUS lactulose 10 GM/15ML solution Refills: 0 Commonly known as: CHRONULAC multivitamin capsule Refills: 0 polyethylene glycol powder Refills: 0 Commonly known as: GLYCOLAX PROZAC 20 MG capsule Refills: 0 Generic drug: FLUoxetine You might also be taking other medications not listed above. If you have questions about an y of your other medications, talk to the person who prescribed them or your Primary Care Pro vider. STOP taking these medications CHILDRENS CHEWABLE VITAMINS chewable tablet cloNIDine 0.1 MG tablet Commonly known as: CATAPRES CRESTOR 40 MG tablet Generic drug: rosuvastatin cyanocobalamin 1000 MCG/ML injection cyclobenzaprine 10 MG tablet Commonly known as: FLEXERIL ergocalciferol 27729 units capsule Commonly known as: DRISDOL insulin lispro (human) 100 UNIT/ML injection Commonly known as: HUMALOG losartan-hydrochlorothiazide 100-25 MG per tablet Commonly known as: HYZAAR metFORMIN 1000 MG (MOD) 24 hr tablet Commonly known as: GLUMETZA metFORMIN 500 MG 24 hr tablet Commonly known as: GLUCOPHAGE-XR oxycodone 10 MG tablet TOPROL XL 200 MG 24 hr tablet Generic drug: metoprolol Where to Get Your Medications You can get these medications from any pharmacy Bring a paper prescription for each of these medications atorvastatin 80 MG tablet cephALEXin 500 MG capsule metoprolol 25 MG tablet Disposition: [facility] Bed Condition: Stable Code Status: Prior Discharge took 48 minutes, to include final examination, discussion of admission, and prepa ration of prescriptions, instructions for on-going care, follow-up and documentation of disc harge summary. Job Miranda MD 4:57 PM documented in this e ncounter Medications at Time of Discharge + + [...] + + + +---------+ + + | atorvaSTATin | Take 1 tablet by | | 0 | 03/12/20 | | | (LIPITOR) 80 MG | mouth nightly. | | | 18 | | | tablet | | | | | | + + + +---------+ + + | TOMAS MICROLET | Use as directed | | 0 | 07/19/20 | | | LANCMARTIN MISC | | | | 12 | [...] + + + +---------+ + + | cephalexin | Take 1 capsule by | | 0 | 03/12/20 | | | (KEFLEX) 500 mg | mouth 4 (four) times | | | 18 | | | capsule | daily. | | | | | + [...] | | | 12 | | | 36814 UNITS capsule | | | | | [...] +---------+ + + | metoprolol | Take 1 tablet by | | 0 | 03/12/20 | | | tartrate (LOPRESSOR) | mouth 2 (two) times | | | 18 | 0 | | 25 mg tablet | daily. | | | | | + [...] documented as of this encounter Progress Notes Conversion Transaction, Provider Unknown - 03/12/2018 11:59 AM PDTFormatting of this note m ight be different from the original. Nurse Progress Note by Yahaira Jeffers RN at 03/12/18 942 Author: Yahaira Jeffers RN Service: (none) Author Type: Registered Nurse Filed: 03/12/18 1200 Date of Service: 03/12/181158 Status: Signed Rn Rehabilitation: Yahaira Jeffers RN (Registered Nurse) Report called to Natalie padilla RN at at [facility]. Yahaira R P ryor, RN onver alma Transaction, Provider Unknown - 03/12/2018 11:33 AM PDT Case Management by MELISSA Kaba at 03/12/18 1133 Author: MELISSA Kaba Service: (none) Author Type: Industrial Electrical Engineer Filed: 03/12/18 1134 Date of Service: 03/12/18 1133 Status: Signed Rn Rehabilitation: MELISSA Kaba (Industrial Electrical Engineer) 03/12/18 1100 Discharge Planning Evaluation Admitting Diagnosis CVA Anticipated Disposition Facility Type Inpatient Rehabilitation Inpatient Rehabilitation Facilities Other (comment) ([facility] ) Disposition: [facility] Transportation: Private pay transport. All orders, signed AVS, and prescriptions have been faxed All DC paperwork completed Patient and family in agreement with transfer Medicare important message signed and copy in chart Social Vernell KABA [phone] cell onver alma Transaction, Provider Unknown - 03/12/2018 10:50 AM PDT Case Management by MELISSA Kaab at 03/12/18 1050 Author: MELISSA Kaba Service: (none) Author Type: Industrial Electrical Engineer Filed: 03/12/18 1052 Date of Service: 03/12/18 1050 Status: Signed Rn Rehabilitation: MELISSA Kaba (Industrial Electrical Engineer) 03/12/18 1000 Discharge Planning Evaluation Admitting Diagnosis CVA Anticipated Disposition Facility Type Inpatient Rehabilitation Inpatient Rehabilitation Facilities Other (comment) ([facility] ) SUPERVISOR ESTIMATOR AND DRAFTER p/c left msg with Yashira Gaviria, Admissions at [facility] program ph, fax). Faxed over discharge orders. DCP: [facility] Social Vernell KABA [phone] cell onver alma Transaction, Provider Unknown - 03/11/2018 5:17 PM PDT Nurse Progress Note by Vianney Peres RN at 03/11/181716 Author: Vianney Peres RN Service: (none) Author Type: Registered Nurse Filed: 03/11/18 171 Date of Service: 03/11/181716 Status: Signed Rn Rehabilitation: Vianney Peres RN (Registered Nurse) Pt reports increased fatigue after work with physical therapy; otherwise, no changes to kalpesh rological exam noted; pt remains alert and oriented x 4; R sided weakness still present; pt denies any difficulties with swallowing ; pt instructed to inform RN if any new symptoms dev elop; pt states he understands; pt denies any questions or concerns at this time Vianney estrada Dominga Littlejohn, PT - 03/11/2018 3:30 PM PDTFormatting of this note might be different from the nikki ayesha. Therapy Progress Note by Dominga Valdez PT at 03/11/18 1530 Author: Dominga Valdez PT Service: (none) Author Type: Physical Therapist Filed: 03/11/18 2708 Date of Service: 03/11/18 1530 Status: Signed Rn Rehabilitation: Dominga Valdez PT (Physical Therapist) PHYSICAL THERAPY TREATMENT NOTE PT Received On: 03/11/18 Reason for Treatment: Stroke (subacute-chronic L cerebellar infarcts) Requires PT Follow Up: Yes Follow up PT Only?: No Assistance Required: 1 person Recommendations: IRF Equipment Recommended: (defer to IRF) PT Ready for Discharge: Yes Recommendation Comments: Pt planned to discharge tomorrow to [facility] for continued maki abilitation prior to return home. Plan Treatment/Interventions: Continue per Primary PT POC Progress: Progressing toward goals Summary Comments: Pt resting in recliner, agreeable to therapy. Session focused on static and williams fouzia balance activities. SBA to MIN A steadying provided with FWW or handrail nearby as need ed; pt with greatest difficulty performing gait with head turns (most markedly to R and look ing upward) and performing static balance with EC and/or narrow support. Pt fatigues easil y with HR increase 25bpm over resting; needed 1x standing and 1x seated rest breaks, but james garcia tolerated session well. He was left in recliner with no new complaints, call light a nd needs in reach. Pre/Peak/Post Position BP Pulse rate O2 sats L/min Pain complaint Pain intervention Pre Seated 137/85 82 95 RA Denies pain Peak Ambulating 107 97 RA Post Seated 138/75 83 96 RA Denies pain Precautions Other Precautions: Fall precautions Cognition Overall Cognitive Status: Within Functional Limits Orientation Level: Oriented Oriented: x 4 FUNCTIONAL MOBILITY Bed Mobility Scooting : Standby assist - Transfers Sit to/from Stand: Standby assist Ambulation Maximal Ambulation Distance (feet): 80, 70 Total Ambulation Distance (feet): 150 Ambulation Assistance: Minimal assist, Standby assist Distance limited by?: Patient's ability Pattern: Alternating, Decreased corina, Wide base, Right swing foot doesn't pass stance fo ot, Left swing foot doesn't pass stance foot (increased lateral trunk sway) Assistive Device: Walker front wheeled, None BALANCE Static Sitting Balance Static Sitting-Level of Assistance: Independent Static Standing Balance Static Standing-Balance Support: No upper extremity support Static Standing-Level of Assistance: Minimal assist (feet apart EC; feet together EO, EC; m odified tandem ADRIA) Static Standing-Comment/Duration: x 30 sec ea High Level Balance Side Stepping: Right, Left (x 6ft ADRIA) Head Turn: (vertical and horizontal with gait (no AD, MIN A)) Backwards Walking: Hand hold assist (railing on L, close CGA) Tandem Stance: Other (comment) (FWW close by for safety; modified tandem) Eyes Closed: Significant increase in sway, Patient aware of deficit (narrow and wide stance ) Turn 360 Degree: (practiced multiple 180 turns, decreased steadiness) Activity Tolerance: Patient limited by fatigue Nurse Made Aware: yes RN Viviana Safety Devices in Place: (call light/needs in reach, RN aware) The patient demonstrated no indication of pain during therapy session. Education Completed: Education Topics: [x] Rationale for PT [x] PT POC [x] DC planning [x] Precautions [x] Exercises [] Bed mobility [x] Transfer training with hand placement [x] Gait training [] Stair training [x] Use of gait belt [] Other Completed with: [x] Patient [] Spouse [] Significant other [] Family [] C aregiver [] Other Completed by: [x] Verbal education [x] Demonstration [] Handout [] Other: Response to Education: [x] Stated Understanding [] Reinforcement necessary [x] Returned demonstration [] Demonstrated understanding [] No evidence of learning [] Refused onversion Transaction , Provider Unknown - 03/11/2018 12:28 PM PDT Case Management by Khushboo Walker RN at 03/11/18 1848 Author: Khushboo Walker RN Service: (none) Author Type: Registered Nurse Filed: 03/11/18 1520 Date of Service: 03/11/18 9878 Status: Addendum Rn Rehabilitation: Khushboo Walker RN (Registered Nurse) Related Notes: Original Note by Khushboo Walker RN (Registered Nurse) filed at 03/11/18 1 446 Discharge Planning: CM placed call to [facility] Yashira [phone] for f/up re pt admit. 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[employer] Transport scheduled for noon CM spoke to [facility] facility requests updated notes Fax to Yashira Fax onver alma Transaction, Provider Unknown - 03/11/2018 11:45 AM PDT Nurse Progress Note by Vianney Peres RN at 03/11/18 2148 Author: Vianney Peres RN Service: (none) Author Type: Registered Nurse Filed: 03/11/18 1201 Date of Service: 03/11/18 7905 Status: Signed Rn Rehabilitation: Vianney Peres RN (Registered Nurse) Redness to panus outlined; pt tolerated well; pt denies any questions or concerns at this t kevan Vianney Peres onver alma Transaction, Provider Unknown - 03/11/2018 11:05 AM PDT Therapy Progress Note by MALIK Armstrong at 03/11/18 1100 Author: MALIK Armstrong Service: (none) Author Type: Occupational Therapist Filed: 03/11/18 0299 Date of Service: 03/11/18 110 Status: Signed Rn Rehabilitation: MALIK Armstrong (Occupational Therapist) OCCUPATIONAL THERAPY TREATMENT NOTE OT Received On: 03/11/18 Reason for Treatment: Stroke Requires OT Follow Up: Yes Assistance Required: 1 person Ice Scraper Needed: No Family/Caregiver Present: No Recommendation: Rehab consult ([facility]) Equipment Recommended: Tub transfer bench, Vehicle Maintenance Technician, Sock aid Requires OT Follow Up: Yes Recommendation Comments Pt continues to require SBA-min A for ADLs. Per chart review, pt planning to discharge to [facility] for further rehab. Pt may benefit from further AE training and fine mo tor coordination/strength. Plan Treatment Interventions: (Per OT POC) Progress: Improving as expected Requires OT Follow Up: Yes Focus for next session: walker retrieval tasks, fine motor coordination/strength Follow up OT only? [] Yes [x] No Precautions Other Precautions: Fall precautions Summary Pt agreeable to OT tx session. Pt sitting up in recliner prior to OT arrival. Pt reports no pain throughout session. Primary focus on AE recommendations/training, and per pt request, fine motor coordination/strength. ADL/IADL Feeding Feeding Level of Assistance: Independent Feeding Where Assessed: (Recliner) Grooming Grooming Level of Assistance: Distant supervision Grooming Where Assessed: Standing sinkside Grooming Comments: Pt reports he has been using the FWW while standing at the sink, for sup port LE Dressing LE Dressing: Yes LE Dressing Adaptive Equipment: Other (Comment) (sock aid) Sock Level of Assistance: Minimal verbal cues LE Dressing Where Assessed: Other (Comment) (recliner) LE Dressing Comments: Pt reports he wears both regular socks and compression socks. Trialed use of flexible sockaid. Educ pt on locations to purchase, and benefits for independence/ea se. Pt stated understanding. Toileting Toileting Level of Assistance: Close supervision Where Assessed: Toilet Toileting Comments: Pt has been participating in personal hygiene and transfers with christelle bey for safety, and use of the FWW Toilet Transfers Toilet Transfer From: Walker Toilet Transfer Type: To and from Toilet Transfer to: Standard toilet Toilet Transfer Technique: Ambulating Toilet Transfers: Supervision Toilet Transfers Comments: Pt reporting use of the FWW to safety when ambulating to the [facility]. Additional Activities Additional Activities Comments: Pt continues to require SBA-min A for ADLs. Per chart delonte avila, pt planning to discharge to [facility] for further rehab. Pt may benefit from further AE training and fine motor coordination/strength. Coordination Fine Motor: Series of fine motor coordination tasks completed, including hand writing, halie rclips, opening containers. Pt requiring additional time to complete, but was successful. Pt frustrated in the amount of time and accuracy of his hand writing. Encouraged pt to cont. w orking on it. Pt reports he has been using his L hand with his phone-encouraged pt to take t he time and use his R hand to improve function/accuracy and coordination. Educ pt on other f ine motor tasks to complete independently. Pt stated understanding. Safety Devices in Place: Yes Type of Devices: Call lite in place (seated in recliner) Barriers to d/c at this time include: [] Home environment [] Family support [x] Equipment needs see above for details [] Cognitive deficits impacting functional independence [x] Physical deficits impacting functional independence [x] Self-care deficits impacting functional independence [] Other Pain The patient did not demonstrate any signs of symptoms of pain throughout OT session Education Completed: Education Topics: ADLs-AE training, fine motor coordination Completed with: [x] Patient [] Spouse [] Significant other [] Family [] C aregiver [] Other Completed by :[x] Verbal education [x] Demonstration [] Handout [] Other: Response to Education: [x] Stated Understanding [x] Reinforcement necessary [x] Returned demonstration [x] Demonstrated understanding [] No evidence of learning [] Refused onver alma Translesvia, Provider Unknown - 03/11/2018 10:59 AM PDT Nurse Progress Note by Vianney Peres RN at 03/11/181058 Author: Vianney Peres RN Service: (none) Author Type: Registered Nurse Filed: 03/11/18 1109 Date of Service: 03/11/181058 Status: Signed Rn Rehabilitation: Vianney Peres RN (Registered Nurse) Physician at bedside with update regarding plan of care; antibiotics to be changed and pt o bserved another 24 hours; orders received to outline redness on panus; orders repeated by t his RN and confirmed by physician; redness to be outlined Vianney Peres onver alma Transaction, Provider Unknown - 03/11/2018 9:22 AM PDT Therapy Progress Note by CHRIS Nova at 03/11/18921 Author: CHRIS Nova Service: (none) Author Type: Massage Therapist Filed: 03/11/18921 Date of Service: 03/11/18921 Status: Signed Rn Rehabilitation: HCRIS Nova (Massage Therapist) 03/11/18920 Massage Therapy Interventions Locations Hands;Shoulder;Neck Massage Therapy Technique Effleurage Response to treatment Decreased muscle tension ulio Michael MD - 03/11/2018 9:12 AM PDT Progress Notes by Julio Viveros MD at 03/11/18911 Author: Julio Viveros MD Service: Hospitalist Author Type: Physician Filed: 03/13/18 1838 Date of Service: 03/11/18911 Status: Signed Rn Rehabilitation: Julio Viveros MD (Physician) [facility] Service: Hospitalist Progress Note Hospital Day: LOS: 4 days Briefly, 53-year-old male with extensive past medical history of morbid obesity, type II di abetes mellitus, hyperlipidemia and hypertension who presents to [facility] from [facility] for right-sided headache found to have acute stroke. Complicated by social placement. SUBJECTIVE No acute overnight events. Tolerating diet. Participating with PT. Improvement in rash on abdomen. No other acute complaints. REVIEW OF SYSTEMS: ROS Patient denies fever or chills The patient denies nausea or vomiting. OBJECTIVE Vital Signs: BP 140/65 | Pulse 84 | Temp 98.5 F (36.9 C) | Resp 16 | Ht 1.727 m (5' 8") | Wt (! ) 200 kg (440 lb 14.7 oz) | SpO2 97% | BMI 67.04 kg/m Constitutional: Patient is awake, alert, oriented to time, place, person, presenting compla int, and president. Lying in bed. Neck: Supple. Respiratory: Normal breath sounds B/L, good air entry bilaterally CVS: S1 and S2 audible. Difficult to appreciate murmur secondary to patient's body habitus , no murmur. No JVD. No peripheral edema. GI: Normal Bowel sounds. Soft, non tender/non-distended. Musculoskeletal: Muscle strength 5/5 in B/L upper and lower extremities, except for right u pper extremity 4+ out of 5. Extremities: Thickening of skin bilateral lower extremities. Neurologic examination: Cranial nerve II through XII grossly intact. Speech understandable . Follows commands. Negative Babinski. Psychiatry: No hallucinations, SI or intent of hurting others. Ingumentary: Warm. DATA Labs, medications, allergies and other treatment team notes reviewed. Principal Problem: CVA (cerebral vascular accident) ([facility]) Active Problems: BMI 60.0-69.9, adult (HCC) Type 2 diabetes mellitus with hyperglycemia ([facility]) Hypothyroidism Dyslipidemia Benign essential hypertension ASSESSMENT & PLAN Stroke: -Target SBP less than 140. -Neuro checks q4 hours -2-D echo suboptimal views secondary to body habitus, EF between 55-60 percent with mild co ncentric left ventricular hypertrophy. -Ultrasound bilateral carotids negative for any disease. -Follow up telemetry -MRI reviewed and case discussed with on-call radiologist Dr. Joyner-kindly see prior notes for further details. - continue with aspirin 81 mg q daily -Continue with atorvastatin 80 mg qhs and optimalization of chronic comorbidities -PT/OT/speech therapy -Monitor Fever: -Atrial fibrillation on the past 24 hours. -Most likely secondary to point #1 versus rule out infection, possibly skin and soft tissue -abdominal wall. -Resolution of leukocytosis. No bandemia. -Patient denies any resp, GI, symptoms -Blood cultures ordered-pending -Appropriate response to Rocephin-we will consider transitioning to oral Omnicef and observ ing for an additional 24 more hours -Pro-calcitonin elevated. -Monitor -antipyretics prn -Disposition pending further clarification of fever and acceptance at [facility]. Insulin-dependent type II diabetes mellitus: -Target blood sugar 140-180 mg/dL -80U long acting and 25U with meals + ISS and accuchecks -Patient is on cardiac diabetic 2 g low sodium Hypothyroidism: -Continue with Synthroid Hyperlipidemia: -Continue with atorvastatin Morbid obesity: -Detailed discussion with patient regarding weight loss and exercise Deep vein thrombosis prophylaxis: Heparin Disposition: Inpatient Code Status: Full Code Julio Viveros MD 03/11/2018 onversion Transact ion, Provider Unknown - 03/11/2018 9:01 AM PDTFormatting of this note might be different fr om the original. Nurse Progress Note by Vianney Peres RN at 03/11/18900 Author: Vianney Peres RN Service: (none) Author Type: Registered Nurse Filed: 03/11/18 1103 Date of Service: 03/11/18900 Status: Signed Rn Rehabilitation: Vianney Peres RN (Registered Nurse) Pt requesting to use own medical transportation service when discharged; CM to be notified and treatment team sticky note left Vianney Peres onver alma Transaction, Provider Unknown - 03/11/2018 7:41 AM PDT Nurse Progress Note by Vianney Peres RN at 03/11/18740 Author: Vianney Peres RN Service: (none) Author Type: Registered Nurse Filed: 03/11/1847 Date of Service: 03/11/18740 Status: Signed Rn Rehabilitation: Vianney Peres RN (Registered Nurse) Pt resting at this time; pt alert and oriented x 4; pt c/o R sided weakness noted on RN ass essment as well; no R sided facial droop noted; pt denies any difficulties swallowing or man aging secretions; pt reports baseline n/t to BLE; pt denies any n/t to RUE; pt able to ambul ate with front wheel walker and standby assist; pt instructed to inform RN if there are any worsening of existing symptoms or any new symptoms; pt states he understands; plan of care r eviewed with pt and pt states he understands; pt denies any questions or concerns at this ti dc Vianney Peres blemo Julio rosado MD - 03/10/2018 7:39 AM PDT Progress Notes by Julio Viveros MD at 03/10/18 4124 Author: Julio Viveros MD Service: Hospitalist Author Type: Physician Filed: 03/10/18 1345 Date of Service: 03/10/1839 Status: Signed Rn Rehabilitation: Julio Viveros MD (Physician) [facility] Service: Hospitalist Progress Note Hospital Day: LOS: 3 days Briefly, 53-year-old male with extensive past medical history of morbid obesity, type II di abetes mellitus, hyperlipidemia and hypertension who presents to [facility] from [facility] for right-sided headache found to have acute stroke. Complicated by social placement. SUBJECTIVE No acute overnight events. Fever this a.m. T-max in past 24 hours 101. Patient denies any respiratory, GI, or symptoms. Abdominal pannus demonstrates REVIEW OF SYSTEMS: ROS Patient denies fever or chills The patient denies angina, shortness of breath or palpitations OBJECTIVE Vital Signs: BP 135/69 (BP Location: Left forearm) | Pulse 106 | Temp 101 F (38.3 C) (Oral) | Res p 23 | Ht 1.727 m (5' 8") | Wt (!) 200 kg (440 lb 14.7 oz) | SpO2 90% | BMI 67.04 kg/m Constitutional: Patient is awake, alert, oriented to time, place, person, and presenting co mplaint. Sitting in a recliner. Neck: Supple. Trachea midline. Respiratory: Normal breath sounds B/L, good air entry bilaterally CVS: S1 and S2 audible. Difficult to appreciate murmur secondary to patient's body habitus , no murmur. No JVD. No peripheral edema. GI: Normal Bowel sounds. Soft, non tender/non-distended. Musculoskeletal: Muscle strength 5/5 in B/L upper and lower extremities, except for right u pper extremity 4+ out of 5. Extremities: Thickening of skin bilateral lower extremities. Neurologic examination: Cranial nerve II through XII grossly intact. Speech understandable . Follows commands. Negative Babinski. Psychiatry: No hallucinations, SI or intent of hurting others. Ingumentary: Warm. DATA Labs, medications, allergies and other treatment team notes reviewed. Principal Problem: CVA (cerebral vascular accident) ([facility]) Active Problems: BMI 60.0-69.9, adult (HCC) Type 2 diabetes mellitus with hyperglycemia (HCC) Hypothyroidism Dyslipidemia Benign essential hypertension ASSESSMENT & PLAN Stroke: -Permissive hypertension -Neuro checks q4 hours -2-D echo suboptimal views secondary to body habitus, EF between 55-60 percent with mild co ncentric left ventricular hypertrophy. -Ultrasound bilateral carotids negative for any disease. -Follow up telemetry -MRI reviewed and case discussed with on-call radiologist Dr. Joyner-kindly see prior notes for further details. - continue with aspirin 81 mg q daily -Continue with atorvastatin 80 mg qhs and optimalization of chronic comorbidities -PT/OT/speech therapy -Monitor Fever: -T-max 101 in the past 24 hours. -Most likely secondary to point #1 versus rule out infection -Leukocytosis appreciated. No bandemia. -Patient denies any resp, GI, symptoms -Blood cultures ordered-pending -We will start the patient on Rocephin until blood cultures result. -Follow-up pro-calcitonin -1 L IV fluids 1 -Monitor -antipyretics prn -Disposition pending further clarification of fever and acceptance at [facility]. Insulin-dependent type II diabetes mellitus: -Target blood sugar 140-180 mg/dL -80U long acting and 25U with meals + ISS and accuchecks -Patient is on cardiac diabetic 2 g low sodium Hypothyroidism: -Continue with Synthroid Hyperlipidemia: -Continue with atorvastatin Morbid obesity: -Detailed discussion with patient regarding weight loss and exercise Deep vein thrombosis prophylaxis: Heparin Disposition: Inpatient Code Status: Full Code Julio Viveros MD 03/10/2018 Julio Dickinson M D - 03/09/2018 10:09 AM PDT Progress Notes by Julio Viveros MD at 03/09/18 1009 Author: Julio Viveros MD Service: Hospitalist Author Type: Physician Filed: 03/09/18 7249 Date of Service: 03/09/181008 Status: Addendum Rn Rehabilitation: Julio Viveros MD (Physician) Related Notes: Original Note by Julio Viveros MD (Physician) filed at 03/09/18 1101 [facility] Service: Hospitalist Progress Note Hospital Day: LOS: 2 days Briefly, 53-year-old male with extensive past medical history of morbid obesity, type II di abetes mellitus, hyperlipidemia and hypertension who presents to [facility] from [facility] for right-sided headache found to have acute stroke. Complicated by social placement. SUBJECTIVE No acute overnight events. Patient sitting in recliner. Patient notes right sided upper e xtremity tingling and mild weakness stable and non-restricting with daily activities, such as dropping any objects picked up with right upper chest and 80.. The patient denies any a cute vision changes. Tolerating diet. Participating with physical therapy [place] and ambulating to restroom with walker. Blood sugars remain labile. REVIEW OF SYSTEMS: ROS Patient denies fever or chills The patient denies angina, shortness of breath or palpitations OBJECTIVE Vital Signs: BP 128/74 (BP Location: Right upper arm) | Pulse 91 | Temp 98.9 F (37.2 C) | Resp 20 | Ht 1.727 m (5' 8") | Wt (!) 200 kg (440 lb 14.7 oz) | SpO2 94% | BMI 67.04 kg/m Constitutional: Patient is awake, alert, oriented to time, place, person, and presenting co mplaint. Sitting in a recliner. Neck: Supple. Trachea midline. Respiratory: Normal breath sounds B/L, good air entry bilaterally CVS: S1 and S2 audible. Difficult to appreciate murmur secondary to patient's body habitus , no murmur. No JVD. No peripheral edema. GI: Normal Bowel sounds. Soft, non tender/non-distended. Musculoskeletal: Muscle strength 5/5 in B/L upper and lower extremities, except for right u pper extremity 4+ out of 5. Extremities: Thickening of skin bilateral lower extremities. Neurologic examination: Cranial nerve II through XII grossly intact. Speech understandable . Follows commands. Negative Babinski. Psychiatry: No hallucinations, SI or intent of hurting others. Ingumentary: Warm. DATA Labs, medications, allergies and other treatment team notes reviewed. Principal Problem: CVA (cerebral vascular accident) (HCC) Active Problems: BMI 60.0-69.9, adult ([facility]) Type 2 diabetes mellitus with hyperglycemia ([facility]) Hypothyroidism Dyslipidemia Benign essential hypertension ASSESSMENT & PLAN Stroke: -Permissive hypertension -Neuro checks q4 hours -2-D echo suboptimal views secondary to body habitus, EF between 55-60 percent with mild co ncentric left ventricular hypertrophy. -Ultrasound bilateral carotids negative for any disease. -Follow up telemetry -MRI reviewed and case discussed with on-call radiologist Dr. Joyner - continue with aspirin 81 mg q daily -Continue with atorvastatin 80 mg qhs and optimalization of chronic comorbidities -PT/OT/speech therapy -Monitor -Disposition: The patient prefers to be at [facility] secondary to proximity to home. Kindly see caseworker protective services's note for further details. Fever: -Most likely secondary to point #1 -No leukocytosis or bandemia -Patient denies any resp, GI, or skin/soft tissue infection -Blood cultures ordered and patient received rocephin x 1 -Monitor -antipyretics prn Insulin-dependent type II diabetes mellitus: -Target blood sugar 140-180 mg/dL -Labile blood sugars, will start Endotool. Target blood sugar decreased by 50-75 mg/dL per hour. -Patient is on cardiac diabetic 2 g low sodium Hypothyroidism: -Resume home Synthroid Hyperlipidemia: -Continue with atorvastatin Morbid obesity: -Detailed discussion with patient regarding weight loss and exercise Disposition: Inpatient Code Status: Full Code Julio Viveros MD 03/09/2018 onversion Transact ion, Provider Unknown - 03/09/2018 5:33 AM PDTFormatting of this note might be different fr om the original. Nurse Progress Note by Melvi Sanderson RN at 03/09/18532 Author: Melvi Sanderson RN Service: (none) Author Type: Registered Nurse Filed: 03/09/1844 Date of Service: 03/09/18532 Status: Addendum Rn Rehabilitation: Melvi Sanderson RN (Registered Nurse) Related Notes: Original Note by Melvi Sanderson RN (Registered Nurse) filed at 03/09/18548 Patient had onset of fever of 102.5 degrees with midnight vital signs. HR noted to be eleva lou in the 100-110's. BP 168 systolic. Alert and oriented X 4. No neuro status changes at th is point in time. Declines DOLAN. Tylenol given for fever. Fever persisted with re-check 1 hour after administration. HR remains elevated. Vitals sign s otherwise stable. Dr. Thompson notified of temperature. Ordered septic work-up, additional 32 5 mg dose of tylenol, and empirical dose of Ceftriaxone 1 g IV. Fever still elevated after second tylenol administration. Patient remains tachycardic. Dr. Thompson notified. Ordered Ibuprofen 400 mg. WCM. Patient remains febrile at 102.1 despite Ibuprofen. After discussion, patient is agreeable to one Ice pack being applied to the neck. Given another dose of tylenol per protocol. MELVI SANDERSON RN onver alma Transaction, Provider Unknown - 03/08/2018 3:06 PM PDT Case Management by Shannon Montoya RN at 03/08/18 653 Author: Shannon Montoya RN Service: (none) Author Type: Oyster Sorter Filed: 03/08/18 1512 Date of Service: 03/08/181505 Status: Signed Rn Rehabilitation: Shannon Montoya RN (Oyster Sorter) Referral faxed to [facility] per patient request. [phone] (f) [phone] . SUSAN spoke with Yashira who will review referral for placement. onver alma Transaction, Provider Unknown - 03/08/2018 1:39 PM PDT Nurse Progress Note by Yahaira Jeffers RN at 03/08/18 1339 Author: Yahaira Jeffers RN Service: (none) Author Type: Registered Nurse Filed: 03/08/18 1340 Date of Service: 03/08/18 1339 Status: Signed Rn Rehabilitation: Yahaira Jeffers RN (Registered Nurse) Per MD Endotool discontinued, new high dose sliding scale orders with lantus. Yahaira saha RN Bobby, Wing Joan MD - 03/08/2018 10:27 AM PDTFormatting of this note might be different from the orig inal. Progress Notes by Wing Joan Humphrey MD at 03/08/18 1027 Author: Wing Joan Humphrey MD Service: (none) Author Type: Physician Filed: 03/08/18 1034 Date of Service: 03/08/18 1027 Status: Signed Rn Rehabilitation: Wing Joan Humphrey MD (Physician) Patient seen face-face for followup followup MRI showed There are 2 small patchy subcentimeter foci of signal abnormality in th e inferior left cerebellum which demonstrate evidence of mild petechial hemorrhage and contr ast enhancement. These are compatible with small subacute to early chronic infarcts. There i s no mass effect. Pt with slowed coordination of R hand for finite tasks, slightly reduced but functional str ength RUE and persistent mild gait instability when traveling increased distances. Pt attemp ts to stabilize upright stance and ambulation with furniture cruising and noted for increase d flexor moment RLE at the knee with increased distance 2/[address] rength deficits. With introduction of FWW pt able to increase upright posture, efficacy of s tep length at RLE and reduce burden of care BP 134/64 (BP Location: Right forearm) | Pulse 88 | Temp 98.1 F (36.7 C) (Oral) | Re sp 20 | Ht 1.727 m (5' 8") | Wt (!) 200 kg (440 lb 14.7 oz) | SpO2 93% | BMI 67.04 kg/m Lung: Clear Cardiac: Regular Abdo: Soft A/P left CVA Recommend IPR care Will need insurance auth He would prefer to go [facility] Yohana Humphrey MD 03/08/2018 10:27 AM Admission on 03/06/2018 Component Date Value Ref Range Status WBC 03/06/2018 7.75 3.80 - 11.00 K/uL Final RBC 03/06/2018 4.82 4.20 - 5.70 M/uL Final HGB 03/06/2018 14.3 13.2 - 17.0 g/dL Final HCT 03/06/2018 43.1 39.0 - 50.0 % Final MCV 03/06/2018 89.4 80.0 - 100.0 fl Final MCH 03/06/2018 29.7 27.0 - 34.0 pg Final MCHC 03/06/2018 33.2 32.0 - 35.5 g/dL Final RDW SD 03/06/2018 44.2 37 - 53 fl Final PLT 03/06/2018 172 150 - 400 K/uL Final MPV 03/06/2018 8.5 fl Final DIFF TYPE 03/06/2018 AUTOMATED Final NEUTROPHILS 03/06/2018 71.76 % Final LYMPHOCYTES 03/06/2018 19.23 % Final MONOCYTES 03/06/2018 6.33 % Final EOSINOPHILS 03/06/2018 1.99 % Final BASOPHILS 03/06/2018 0.69 % Final NEUTROPHILS ABS 03/06/2018 5.56 1.90 - 7.40 K/uL Final LYMPHOCYTES ABS 03/06/2018 1.49 1.00 - 3.90 K/uL Final MONOCYTES ABS 03/06/2018 0.49 0.00 - 0.80 K/uL Final EOSINOPHILS ABS 03/06/2018 0.15 0.00 - 0.50 K/uL Final BASOPHILS ABS 03/06/2018 0.05 0.00 - 0.10 K/uL Final SODIUM 03/06/2018 137 135 - 145 mmol/L Final POTASSIUM 03/06/2018 3.9 3.5 - 4.9 mmol/L Final CHLORIDE 03/06/2018 103 99 - 109 mmol/L Final CO2 03/06/2018 24 23 - 32 mmol/L Final ANION GAP AGAP 03/06/2018 15 5 - 20 mmol/L Final GLUCOSE 03/06/2018 314* 65 - 99 mg/dL Final BUN 03/06/2018 18 8 - 25 mg/dL Final CREATININE 03/06/2018 1.2 0.70 - 1.30 mg/dL Final BUN/CREAT 03/06/2018 15 Final CALCIUM 03/06/2018 8.6 8.5 - 10.5 mg/dL Final TOTAL PROTEIN 03/06/2018 7.2 6.3 - 8.2 g/dL Final Albumin 03/06/2018 2.8* 3.6 - 5.0 g/dL Final GLOBULIN 03/06/2018 4.4 1.3 - 4.9 g/dL Final A/G 03/06/2018 0.7* 1.0 - 2.4 Final TBIL 03/06/2018 0.6 0.1 - 1.5 mg/dL Final ALK PHOS 03/06/2018 106 35 - 115 U/L Final AST 03/06/2018 24 10 - 45 U/L Final ALT 03/06/2018 18 10 - 65 U/L Final EGFR 03/06/2018 >60 >60 mL/min/1.73m2 Final CPK 03/06/2018 117 55 - 400 U/L Final INR 03/06/2018 0.9 Final APTT 03/06/2018 26 23 - 32 seconds Final MMB 03/06/2018 1.4 0.5 - 3.6 ng/mL Final CK-MB Index 03/06/2018 1.2 Final Ventricular Rate 03/06/2018 88 BPM Final Atrial Rate 03/06/2018 88 BPM Final P-R Interval 03/06/2018 178 ms Final QRS Duration 03/06/2018 96 ms Final Q-T Interval 03/06/2018 366 ms Final QTC Calculation (Bezet) 03/06/2018 442 ms Final Calculated P [place] 03/06/2018 48 degrees Final Calculated R [place] 03/06/2018 -62 degrees Final Calculated T [place] 03/06/2018 62 degrees Final Diagnosis 03/06/2018 Final Value:Normal sinus rhythm Left anterior fascicular block Possible Anterolateral infarct , age undetermined Abnormal ECG No previous ECGs available This ECG contains Unconfirmed Interpretation Statements. See ED Record for Physician Inter pretation. Confirmed by MUSE READ ONLY, -COMPUTER ([id number]), graphics editor Chicas, Yahaira ([id number]) on 03/07/2018 5:57:49 AM GLUCOSE,POC SCREEN 03/06/2018 308* 65 - 99 mg/dL Final GLUCOSE,POC SCREEN 03/06/2018 317* 65 - 99 mg/dL Final TROPONIN I 03/06/2018 <0.020 0.00 - 0.10 ng/mL Final WBC 03/07/2018 7.61 3.80 - 11.00 K/uL Final RBC 03/07/2018 4.56 4.20 - 5.70 M/uL Final HGB 03/07/2018 13.9 13.2 - 17.0 g/dL Final HCT 03/07/2018 41.1 39.0 - 50.0 % Final MCV 03/07/2018 90.1 80.0 - 100.0 fl Final MCH 03/07/2018 30.6 27.0 - 34.0 pg Final MCHC 03/07/2018 33.9 32.0 - 35.5 g/dL Final RDW SD 03/07/2018 45.5 37 - 53 fl Final PLT 03/07/2018 189 150 - 400 K/uL Final MPV 03/07/2018 8.6 fl Final DIFF TYPE 03/07/2018 AUTOMATED Final NEUTROPHILS 03/07/2018 63.65 % Final LYMPHOCYTES 03/07/2018 24.93 % Final MONOCYTES 03/07/2018 8.56 % Final EOSINOPHILS 03/07/2018 2.26 % Final BASOPHILS 03/07/2018 0.60 % Final NEUTROPHILS ABS 03/07/2018 4.84 1.90 - 7.40 K/uL Final LYMPHOCYTES ABS 03/07/2018 1.90 1.00 - 3.90 K/uL Final MONOCYTES ABS 03/07/2018 0.65 0.00 - 0.80 K/uL Final EOSINOPHILS ABS 03/07/2018 0.17 0.00 - 0.50 K/uL Final BASOPHILS ABS 03/07/2018 0.05 0.00 - 0.10 K/uL Final SODIUM 03/07/2018 137 135 - 145 mmol/L Final POTASSIUM 03/07/2018 3.6 3.5 - 4.9 mmol/L Final CHLORIDE 03/07/2018 101 99 - 109 mmol/L Final CO2 03/07/2018 24 23 - 32 mmol/L Final ANION GAP AGAP 03/07/2018 16 5 - 20 mmol/L Final GLUCOSE 03/07/2018 354* 65 - 99 mg/dL Final BUN 03/07/2018 18 8 - 25 mg/dL Final CREATININE 03/07/2018 1.2 0.70 - 1.30 mg/dL Final BUN/CREAT 03/07/2018 15 Final CALCIUM 03/07/2018 8.6 8.5 - 10.5 mg/dL Final TOTAL PROTEIN 03/07/2018 7.1 6.3 - 8.2 g/dL Final Albumin 03/07/2018 2.8* 3.6 - 5.0 g/dL Final GLOBULIN 03/07/2018 4.3 1.3 - 4.9 g/dL Final A/G 03/07/2018 0.7* 1.0 - 2.4 Final TBIL 03/07/2018 0.6 0.1 - 1.5 mg/dL Final ALK PHOS 03/07/2018 105 35 - 115 U/L Final AST 03/07/2018 16 10 - 45 U/L Final ALT 03/07/2018 17 10 - 65 U/L Final EGFR 03/07/2018 >60 >60 mL/min/1.73m2 Final HEMOGLOBIN A1C 03/07/2018 14.6* 4.0 - 6.0 % Final ESTIMATED AVG GLUCOSE 03/07/2018 372 mg/dL Final CHOLESTEROL 03/07/2018 264* <200 mg/dL Final Triglycerides 03/07/2018 368* <150 mg/dL Final HDL CHOL 03/07/2018 36* >40 mg/dL Final LDL CALC 03/07/2018 154* <100 mg/dL Final MAGNESIUM 03/07/2018 1.8 1.7 - 2.4 mg/dL Final PHOSPHORUS 03/07/2018 2.6 2.3 - 4.8 mg/dL Final COLOR UA 03/07/2018 YELLOW Final CLARITY 03/07/2018 CLEAR Final Specific [place], UA 03/07/2018 1.036* 1.002 - 1.030 Final LEUKOCYTE ESTERASE 03/07/2018 NEGATIVE NEGATIVE Final NITRITE 03/07/2018 NEGATIVE NEGATIVE Final UROBILINOGEN 03/07/2018 NORMAL <1.1 mg/dL Final PROTEIN 03/07/2018 30* NEGATIVE mg/dL Final PH,URINE 03/07/2018 5.0 5.0 - 8.0 Final BLOOD 03/07/2018 SMALL* NEGATIVE Final KETONES 03/07/2018 20* NEGATIVE mg/dL Final BILIRUBIN 03/07/2018 NEGATIVE NEGATIVE Final GLUCOSE 03/07/2018 >500* NEGATIVE mg/dL Final WBC 03/07/2018 0-2 0 - 5 /hpf Final RBC 03/07/2018 0-2 0 - 2 /hpf Final BACTERIA 03/07/2018 NONE SEEN NONE SEEN Final EPITHELIAL 03/07/2018 3-5 /lpf Final TROPONIN I 03/07/2018 <0.020 0.00 - 0.10 ng/mL Final TROPONIN I 03/07/2018 <0.020 0.00 - 0.10 ng/mL Final GLUCOSE,POC SCREEN 03/07/2018 339* 65 - 99 mg/dL Final LV EF 03/07/2018 60 50 - 70 % Final GLUCOSE,POC SCREEN 03/07/2018 354* 65 - 99 mg/dL Final GLUCOSE,POC SCREEN 03/07/2018 195* 65 - 99 mg/dL Final GLUCOSE,POC SCREEN 03/07/2018 352* 65 - 99 mg/dL Final GLUCOSE,POC SCREEN 03/07/2018 375* 65 - 99 mg/dL Final GLUCOSE,POC SCREEN 03/07/2018 271* 65 - 99 mg/dL Final GLUCOSE,POC SCREEN 03/07/2018 235* 65 - 99 mg/dL Final GLUCOSE,POC SCREEN 03/07/2018 168* 65 - 99 mg/dL Final GLUCOSE,POC SCREEN 03/07/2018 196* 65 - 99 mg/dL Final HEMOGLOBIN A1C 03/08/2018 15.0* 4.0 - 6.0 % Final ESTIMATED AVG GLUCOSE 03/08/2018 384 mg/dL Final WBC 03/08/2018 8.55 3.80 - 11.00 K/uL Final RBC 03/08/2018 4.22 4.20 - 5.70 M/uL Final HGB 03/08/2018 13.0* 13.2 - 17.0 g/dL Final HCT 03/08/2018 37.1* 39.0 - 50.0 % Final MCV 03/08/2018 87.9 80.0 - 100.0 fl Final MCH 03/08/2018 30.8 27.0 - 34.0 pg Final MCHC 03/08/2018 35.1 32.0 - 35.5 g/dL Final RDW SD 03/08/2018 42.4 37 - 53 fl Final PLT 03/08/2018 292 150 - 400 K/uL Final MPV 03/08/2018 9.0 fl Final DIFF TYPE 03/08/2018 AUTOMATED Final NEUTROPHILS 03/08/2018 65.86 % Final LYMPHOCYTES 03/08/2018 22.24 % Final MONOCYTES 03/08/2018 8.47 % Final EOSINOPHILS 03/08/2018 2.54 % Final BASOPHILS 03/08/2018 0.89 % Final NEUTROPHILS ABS 03/08/2018 5.63 1.90 - 7.40 K/uL Final LYMPHOCYTES ABS 03/08/2018 1.90 1.00 - 3.90 K/uL Final MONOCYTES ABS 03/08/2018 0.72 0.00 - 0.80 K/uL Final EOSINOPHILS ABS 03/08/2018 0.22 0.00 - 0.50 K/uL Final BASOPHILS ABS 03/08/2018 0.08 0.00 - 0.10 K/uL Final SODIUM 03/08/2018 138 135 - 145 mmol/L Final POTASSIUM 03/08/2018 3.3* 3.5 - 4.9 mmol/L Final CHLORIDE 03/08/2018 104 99 - 109 mmol/L Final CO2 03/08/2018 27 23 - 32 mmol/L Final ANION GAP AGAP 03/08/2018 10 5 - 20 mmol/L Final GLUCOSE 03/08/2018 123* 65 - 99 mg/dL Final BUN 03/08/2018 17 8 - 25 mg/dL Final CREATININE 03/08/2018 0.9 0.70 - 1.30 mg/dL Final BUN/CREAT 03/08/2018 19 Final CALCIUM 03/08/2018 8.8 8.5 - 10.5 mg/dL Final EGFR 03/08/2018 >60 >60 mL/min/1.73m2 Final MAGNESIUM 03/08/2018 1.9 1.7 - 2.4 mg/dL Final GLUCOSE,POC SCREEN 03/07/2018 163* 65 - 99 mg/dL Final GLUCOSE,POC SCREEN 03/07/2018 262* 65 - 99 mg/dL Final GLUCOSE,POC SCREEN 03/07/2018 243* 65 - 99 mg/dL Final GLUCOSE,POC SCREEN 03/07/2018 159* 65 - 99 mg/dL Final GLUCOSE,POC SCREEN 03/07/2018 109* 65 - 99 mg/dL Final GLUCOSE,POC SCREEN 03/08/2018 119* 65 - 99 mg/dL Final GLUCOSE,POC SCREEN 03/08/2018 168* 65 - 99 mg/dL Final GLUCOSE,POC SCREEN 03/08/2018 133* 65 - 99 mg/dL Final Julio Dickinson MD - 03/08/2018 10:11 AM PDT Progress Notes by Julio Viveros MD at 03/08/18 1011 Author: Julio Viveros MD Service: Hospitalist Author Type: Physician Filed: 03/09/18 1008 Date of Service: 03/08/18 1011 Status: Signed Rn Rehabilitation: Julio Viveros MD (Physician) [facility] Service: Hospitalist Progress Note Hospital Day: LOS: 1 day Briefly, 53-year-old male with extensive past medical history of morbid obesity, type II di abetes mellitus, hyperlipidemia and hypertension who presents to [facility] from [facility] for right-sided headache found to have acute stroke. SUBJECTIVE No acute overnight events. Patient notes right sided upper extremity tingling and mild wea kness; however, denies any slurring of speech, or other weakness at this time. The patient denies any acute vision changes. Progression stable. Tolerating diet. Participating with physical therapy. REVIEW OF SYSTEMS: ROS 10 point ROS otherwise unremarkable except as per subjective. OBJECTIVE Vital Signs: BP 134/64 (BP Location: Right forearm) | Pulse 88 | Temp 98.1 F (36.7 C) (Oral) | Re sp 20 | Ht 1.727 m (5' 8") | Wt (!) 200 kg (440 lb 14.7 oz) | SpO2 93% | BMI 67.04 kg/m Constitutional: Patient is awake, alert, oriented to time, place, person, and presenting co mplaint HEENT: Normocephalic, PERRLA, EOMI. Ears normal. No oropharyngeal erythema. Respiratory: Normal breath sounds B/L, good air entry bilaterally CVS: S1 and S2 audible. Difficult to appreciate murmur secondary to patient's body habitus , no murmur. No JVD. No peripheral edema. GI: Normal Bowel sounds. Soft, non tender/non-distended. Musculoskeletal: Muscle strength 5/5 in B/L upper and lower extremities, except for right u pper extremity 4+ out of 5. Back examination: No CVA tenderness. Extremities: No pedal cyanosis or clubbing. Neurologic examination: Cranial nerve II through XII grossly intact. Speech understandable . Follows commands. Negative Babinski. Psychiatry: No hallucinations, SI or intent of hurting others. Ingumentary: Warm. DATA Labs, medications, allergies and other treatment team notes reviewed. Principal Problem: CVA (cerebral vascular accident) (HCC) Active Problems: BMI 60.0-69.9, adult (HCC) Type 2 diabetes mellitus with hyperglycemia (HCC) Hypothyroidism Dyslipidemia Benign essential hypertension ASSESSMENT & PLAN Stroke: -Permissive hypertension -Neuro checks q4 hours -2-D echo suboptimal views secondary to body habitus, EF between 55-60 percent with mild co ncentric left ventricular hypertrophy. -Ultrasound bilateral carotids negative for any disease. -Follow up telemetry -MRI reviewed and case discussed with on-call radiologist Dr. Joyner who notes 2 small patc hy petechial hemorrhage noted to be greater than 1 week of age with range approximately at 1 -3 months Ivan on enhancement patterns. This information was conveyed to on-call neurologist , who recommended starting the patient on aspirin 81 mg q daily. -Continue with atorvastatin 80 mg qhs and optimalization of chronic comorbidities -PT/OT/speech therapy -Monitor -Disposition: The patient prefers to be at [facility] secondary to proximity to home. Kindly see caseworker protective services's note for further details. Insulin-dependent type II diabetes mellitus: -Target blood sugar 140-180 mg/dL -The patient's 24 hour insulin requirements: -As per patient at home, he is on Levemir 80 units qhs, 12 units bolus insulin with meals a nd insulin sliding scale. -We will convert to Levemir -Patient is on cardiac diabetic 2 g low sodium Hypothyroidism: -Resume home Synthroid Hyperlipidemia: -Continue with atorvastatin Morbid obesity: -Detailed discussion with patient regarding weight loss and exercise Disposition: Inpatient Code Status: Full Code Julio Viveros MD 03/08/2018 onversion Transact ion, Provider Unknown - 03/07/2018 5:18 PM PDTFormatting of this note might be different fr om the original. Progress Notes by Marilyn Kate at 03/07/18 5035 Author: Marilyn Kate Service: Specialist Author Type: Filed: 03/07/18 7775 Date of Service: 03/07/188 Status: Signed Rn Rehabilitation: Marilyn Kate (Stone Decorator) CP visit per pt request. Matthias is a 53 yr old gentleman dx S/P CVA. Matthias recounts events ru ding up to his CVA including a "stressful job" and a multitude of social and family events o n his schedule. He reflects on the fact that this medical event is what he identifies as God s way of telling him to slow down and spend more time with his family. Matthias describes a stro ng and intimate relationship with God and that he "hears God" but often "fails to listen" at times. Matthias feels well supported in his spiritual life and personal life. He exhibits vital ity in getting back home and hopefully finding ways to address his health needs. Time spent in active supportive listening, validation of feelings and assessing for these resources. Morena ribera offered and accepted with Matthias asking for the ability to tend to his health needs and l isten. Appreciative of CP visit. ulio Michael MD - 03/07/2018 4:12 PM PDT Progress Notes by Julio Viveros MD at 03/07/18 1612 Author: Julio Viveros MD Service: Hospitalist Author Type: Physician Filed: 03/07/18 1700 Date of Service: 03/07/18 1612 Status: Signed Rn Rehabilitation: Julio Viveros MD (Physician) [facility] Service: Hospitalist Progress Note Hospital Day: LOS: 0 days Briefly, 53-year-old male with extensive past medical history of morbid obesity, type II di abetes mellitus, hyperlipidemia and hypertension who presents to [facility] from [facility] for right-sided headache found to have acute stroke. SUBJECTIVE No acute overnight events. Patient notes right sided upper extremity tingling and mild wea kness; however, denies any slurring of speech, or other weakness at this time. The patient denies any acute vision changes. Progression stable. Tolerating diet. Participating with physical therapy. REVIEW OF SYSTEMS: ROS 10 point ROS otherwise unremarkable except as per subjective. OBJECTIVE Vital Signs: BP 135/77 (BP Location: Right upper arm) | Pulse 73 | Temp 99.1 F (37.3 C) (Oral) | Resp 19 | Ht 1.727 m (5' 8") | Wt (!) 200 kg (440 lb 14.7 oz) | SpO2 95% | BMI 67.04 kg/ m Constitutional: Patient is awake, alert, oriented to time, place, person, and presenting co mplaint HEENT: Normocephalic, PERRLA, EOMI. Ears normal. No oropharyngeal erythema. Respiratory: Normal breath sounds B/L, good air entry bilaterally CVS: S1 and S2 audible. Difficult to appreciate murmur secondary to patient's body habitus , no murmur. No JVD. No peripheral edema. GI: Normal Bowel sounds. Soft, non tender/non-distended. Musculoskeletal: Muscle strength 5/5 in B/L upper and lower extremities, except for right u pper extremity 4+ out of 5. Back examination: No CVA tenderness. Extremities: No pedal cyanosis or clubbing. Neurologic examination: Cranial nerve II through XII grossly intact. Speech understandable . Follows commands. Negative Babinski. Psychiatry: No hallucinations, SI or intent of hurting others. Ingumentary: Warm. DATA Labs, medications, allergies and other treatment team notes reviewed. Principal Problem: CVA (cerebral vascular accident) (HCC) Active Problems: BMI 60.0-69.9, adult (HCC) Type 2 diabetes mellitus with hyperglycemia (HCC) Hypothyroidism Dyslipidemia Benign essential hypertension ASSESSMENT & PLAN Stroke: -Permissive hypertension -Neuro checks q4 hours -2-D echo suboptimal views secondary to body habitus, EF between 55-60 percent with mild co ncentric left ventricular hypertrophy. -Ultrasound bilateral carotids negative for any disease. -Follow up telemetry -MRI reviewed and case discussed with on-call radiologist Dr. Joyner who notes 2 small patc hy petechial hemorrhage noted to be greater than 1 week of age with range approximately at 1 -3 months Ivan on enhancement patterns. This information was conveyed to on-call neurologist , who recommended starting the patient on aspirin 81 mg q daily. -Continue with atorvastatin 80 mg qhs and optimalization of chronic comorbidities -PT/OT/speech therapy -Monitor Insulin-dependent type II diabetes mellitus: -Target blood sugar 100 4180 mg/dL -Patient's blood sugars remained labile during hospital stay and patient was started on End oTool. We will calculate 24-hour requirements of insulin and will readjust insulin -Patient is on cardiac diabetic 2 g low sodium Hypothyroidism: -Resume home Synthroid Hyperlipidemia: -Continue with atorvastatin Morbid obesity: -Detailed discussion with patient regarding weight loss and exercise Disposition: Inpatient Code Status: Full Code Julio Viveros MD 03/07/2018 onversion Transact ion, Provider Unknown - 03/07/2018 11:37 AM PDTFormatting of this note might be different fr om the original. Case Management by MELISSA Padilla at 03/07/18 8870 Author: MELISSA Padilla Service: (none) Author Type: Oyster Sorter Filed: 03/07/18 1144 Date of Service: 03/07/181136 Status: Signed Rn Rehabilitation: MELISSA Padilla (Oyster Sorter) 03/07/18 7105 Discharge Planning Evaluation Admitting Diagnosis CVA Readmission No Living Arrangements Spouse/significant other (Milady [phone]) Support Systems Spouse/significant other Type of Residence Private residence House type House-1 story Steps to enter (0 steps) Independent with ADL's Yes Independent with Mobility Yes Mental Status Oriented Prior functional status Patient is indpt in ADLs and IADLs (drives), 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 Explained CM role and discussed discharge planning. Pt is a 53 yr old male admitted with extreme obesity, DM II, dyslipidemia, HTN who presents as a transfer from [facility] with stroke. Denies outpt medical services such as dialysis, home infusion, home health, coumadin clinic , or home oxygen.Pt is aware CM will follow for D/C needs as they arise during hospitaliza tion. Patient reports he has been able to ambulate around the hospital room, still feels as thoug h his right leg is weak. Patient's PCP is: MYRA KARIMI Patient's insurance: [employer] Coverage concerns: no Medication coverage/concerns: yes/no Community resources utilized / needed: Assistance in transportation: family transport Identification of any specific education / training: Barriers to Discharge / Alternative housing needed: Anticipated DCP: IPR vs Home, pending PT evaluation MELISSA Padilla onver alma Transaction, Provider Unknown - 03/07/2018 8:55 AM PDT Case Management by MELISSA Padilla at 03/07/18854 Author: MELISSA Padilla Service: (none) Author Type: Oyster Sorter Filed: 03/07/18915 Date of Service: 03/07/18854 Status: Signed Rn Rehabilitation: MELISSA Padilla (Oyster Sorter) CM attempted to meet with patient for full assessment, however, patient sleeping. CM will return at a later time. MELISSA Padilla onver alma Transaction, Provider Unknown - 03/07/2018 3:27 AM PDT Progress Notes by Fabio Madera RPH at 03/07/18326 Author: Fabio Madera RPH Service: Pharmacy Author Type: Pharmacist Filed: 03/07/187 Date of Service: 03/07/18326 Status: Signed Rn Rehabilitation: Fabio Madera RPH (Pharmacist) Note ccl 120.4ml/min meds reviewed pharmacy will follow rdc 0327 docume nted in this encounter Plan of Treatment Not on filedocumented as of this encounter Procedures + +--------+ + + + | Procedure Name | Priori | Date/Time | Associated Diagnosis | Comments | | | ty | | | | + +--------+ + + + | POC GLUCOSE | Routin | 03/12/2018 | | Results for this | | | e | 12:13 PM | | procedure are in the | | | | PDT | | results section. | + +--------+ + + + | POC GLUCOSE | Routin | 03/12/2018 | | Results for this | | | e | 5:47 AM | | procedure are in the | | | | PDT | | results section. | + +--------+ + + + | EXTERNAL LAB: CBC | Routin | 03/12/2018 | | Results for this | | | e | 4:05 AM | | procedure are in the | | | | PDT | | results section. | + +--------+ + + + | BASIC METABOLIC | Routin | 03/12/2018 | | Results for this | | PANEL | e | 4:05 AM | | procedure are in the | | | | PDT | | results section. | + +--------+ + + + | POC GLUCOSE | Routin | 03/11/2018 | | Results for this | | | e | 9:03 PM | | procedure are in the | | | | PDT | | results section. | + +--------+ + + + | POC GLUCOSE | Routin | 03/11/2018 | | Results for this | | | e | 4:40 PM | | procedure are in the | | | | PDT | | results section. | + +--------+ + + + | POC GLUCOSE | Routin | 03/11/2018 | | Results for this | | | e | 2:03 PM | | procedure are in the | | | | PDT | | results section. | + +--------+ + + + | POC GLUCOSE | Routin | 03/11/2018 | | Results for this | | | e | 10:58 AM | | procedure are in the | | | | PDT | | results section. | + +--------+ + + + | POC GLUCOSE | Routin | 03/11/2018 | | Results for this | | | e | 5:38 AM | | procedure are in the | | | | PDT | | results section. | + +--------+ + + + | EXTERNAL LAB: CBC | Routin | 03/11/2018 | | Results for this | | | e | 4:18 AM | | procedure are in the | | | | PDT | | results section. | + +--------+ + + + | MAGNESIUM | Routin | 03/11/2018 | | Results for this | | | e | 4:18 AM | | procedure are in the | | | | PDT | | results section. | + +--------+ + + + | BASIC METABOLIC | Routin | 03/11/2018 | | Results for this | | PANEL | e | 4:18 AM | | procedure are in the | | | | PDT | | results section. | + +--------+ + + + | POC GLUCOSE | Routin | 03/10/2018 | | Results for this | | | e | 9:45 PM | | procedure are in the | | | | PDT | | results section. | + +--------+ + + + | POC GLUCOSE | Routin | 03/10/2018 | | Results for this | | | e | 4:31 PM | | procedure are in the | | | | PDT | | results section. | + +--------+ + + + | POC GLUCOSE | Routin | 03/10/2018 | | Results for this | | | e | 3:00 PM | | procedure are in the | | | | PDT | | results section. | + +--------+ + + + | POC GLUCOSE | Routin | 03/10/2018 | | Results for this | | | e | 1:59 PM | | procedure are in the | | | | PDT | | results section. | + +--------+ + + + | POC GLUCOSE | Routin | 03/10/2018 | | Results for this | | | e | 12:57 PM | | procedure are in the | | | | PDT | | results section. | + +--------+ + + + | POC GLUCOSE | Routin | 03/10/2018 | | Results for this | | | e | 12:01 PM | | procedure are in the | | | | PDT | | results section. | + +--------+ + + + | POC GLUCOSE | Routin | 03/10/2018 | | Results for this | | | e | 11:32 AM | | procedure are in the | | | | PDT | | results section. | + +--------+ + + + | POC GLUCOSE | Routin | 03/10/2018 | | Results for this | | | e | 10:31 AM | | procedure are in the | | | | PDT | | results section. | + +--------+ + + + | POC GLUCOSE | Routin | 03/10/2018 | | Results for this | | | e | 9:29 AM | | procedure are in the | | | | PDT | | results section. | + +--------+ + + + | POC GLUCOSE | Routin | 03/10/2018 | | Results for this | | | e | 8:26 AM | | procedure are in the | | | | PDT | | results section. | + +--------+ + + + | POC GLUCOSE | Routin | 03/10/2018 | | Results for this | | | e | 7:19 AM | | procedure are in the | | | | PDT | | results section. | + +--------+ + + + | POC GLUCOSE | Routin | 03/10/2018 | | Results for this | | | e | 6:02 AM | | procedure are in the | | | | PDT | | results section. | + +--------+ + + + | POC GLUCOSE | Routin | 03/10/2018 | | Results for this | | | e | 4:58 AM | | procedure are in the | | | | PDT | | results section. | + +--------+ + + + | EXTERNAL LAB: CBC | Routin | 03/10/2018 | | Results for this | | | e | 4:05 AM | | procedure are in the | | | | PDT | | results section. | + +--------+ + + + | PROCALCITONIN, SERUM | Routin | 03/10/2018 | | Results for this | | | e | 4:05 AM | | procedure are in the | | | | PDT | | results section. | + +--------+ + + + | PHOSPHORUS | Routin | 03/10/2018 | | Results for this | | | e | 4:05 AM | | procedure are in the | | | | PDT | | results section. | + +--------+ + + + | MAGNESIUM | Routin | 03/10/2018 | | Results for this | | | e | 4:05 AM | | procedure are in the | | | | PDT | | results section. | + +--------+ + + + | BASIC METABOLIC | Routin | 03/10/2018 | | Results for this | | PANEL | e | 4:05 AM | | procedure are in the | | | | PDT | | results section. | + +--------+ + + + | POC GLUCOSE | Routin | 03/10/2018 | | Results for this | | | e | 3:51 AM | | procedure are in the | | | | PDT | | results section. | + +--------+ + + + | POC GLUCOSE | Routin | 03/10/2018 | | Results for this | | | e | 2:34 AM | | procedure are in the | | | | PDT | | results section. | + +--------+ + + + | POC GLUCOSE | Routin | 03/10/2018 | | Results for this | | | e | 1:22 AM | | procedure are in the | | | | PDT | | results section. | + +--------+ + + + | POC GLUCOSE | Routin | 03/10/2018 | | Results for this | | | e | 12:16 AM | | procedure are in the | | | | PDT | | results section. | + +--------+ + + + | POC GLUCOSE | Routin | 03/09/2018 | | Results for this | | | e | 11:12 PM | | procedure are in the | | | | PDT | | results section. | + +--------+ + + + | POC GLUCOSE | Routin | 03/09/2018 | | Results for this | | | e | 10:06 PM | | procedure are in the | | | | PDT | | results section. | + +--------+ + + + | POC GLUCOSE | Routin | 03/09/2018 | | Results for this | | | e | 9:01 PM | | procedure are in the | | | | PDT | | results section. | + +--------+ + + + | POC GLUCOSE | Routin | 03/09/2018 | | Results for this | | | e | 7:52 PM | | procedure are in the | | | | PDT | | results section. | + +--------+ + + + | POC GLUCOSE | Routin | 03/09/2018 | | Results for this | | | e | 6:53 PM | | procedure are in the | | | | PDT | | results section. | + +--------+ + + + | POC GLUCOSE | Routin | 03/09/2018 | | Results for this | | | e | 5:32 PM | | procedure are in the | | | | PDT | | results section. | + +--------+ + + + | POC GLUCOSE | Routin | 03/09/2018 | | Results for this | | | e | 3:56 PM | | procedure are in the | | | | PDT | | results section. | + +--------+ + + + | POC GLUCOSE | Routin | 03/09/2018 | | Results for this | | | e | 2:32 PM | | procedure are in the | | | | PDT | | results section. | + +--------+ + + + | POC GLUCOSE | Routin | 03/09/2018 | | Results for this | | | e | 1:24 PM | | procedure are in the | | | | PDT | | results section. | + +--------+ + + + | POC GLUCOSE | Routin | 03/09/2018 | | Results for this | | | e | 12:11 PM | | procedure are in the | | | | PDT | | results section. | + +--------+ + + + | GLUCOSE, RANDOM | Routin | 03/09/2018 | | Results for this | | | e | 10:43 AM | | procedure are in the | | | | PDT | | results section. | + +--------+ + + + | POC GLUCOSE | Routin | 03/09/2018 | | Results for this | | | e | 10:21 AM | | procedure are in the | | | | PDT | | results section. | + +--------+ + + + | MAGNESIUM | Routin | 03/09/2018 | | Results for this | | | e | 8:00 AM | | procedure are in the | | | | PDT | | results section. | + +--------+ + + + | BASIC METABOLIC | Routin | 03/09/2018 | | Results for this | | PANEL | e | 8:00 AM | | procedure are in the | | | | PDT | | results section. | + +--------+ + + + | URINALYSIS WITH | Routin | 03/09/2018 | | Results for this | | MICROSCOPIC IF | e | 6:00 AM | | procedure are in the | | INDICATED | | PDT | | results section. | + +--------+ + + + | URINALYSIS, | Routin | 03/09/2018 | | Results for this | | MICROSCOPIC ONLY | e | 6:00 AM | | procedure are in the | | | | PDT | | results section. | + +--------+ + + + | POC GLUCOSE | Routin | 03/09/2018 | | Results for this | | | e | 5:55 AM | | procedure are in the | | | | PDT | | results section. | + +--------+ + + + | XR CHEST 1 VIEW | Routin | 03/09/2018 | | Results for this | | | e | 3:12 AM | | procedure are in the | | | | PDT | | results section. | + +--------+ + + + | CULTURE, BLOOD | STAT | 03/09/2018 | | Results for this | | | | 2:59 AM | | procedure are in the | | | | PDT | | results section. | + +--------+ + + + | CULTURE, BLOOD, 2ND | STAT | 03/09/2018 | | Results for this | | SPECIMEN (NON-ORD) | | 2:49 AM | | procedure are in the | | | | PDT | | results section. | + +--------+ + + + | LACTIC ACID | Routin | 03/09/2018 | | Results for this | | | e | 2:41 AM | | procedure are in the | | | | PDT | | results section. | + +--------+ + + + | MRSA NAAT | Timed | 03/09/2018 | | Results for this | | | | 2:33 AM | | procedure are in the | | | | PDT | | results section. | + +--------+ + + + | POC GLUCOSE | Routin | 03/09/2018 | | Results for this | | | e | 2:25 AM | | procedure are in the | | | | PDT | | results section. | + +--------+ + + + | POC GLUCOSE | Routin | 03/09/2018 | | Results for this | | | e | 12:15 AM | | procedure are in the | | | | PDT | | results section. | + +--------+ + + + | POC GLUCOSE | Routin | 03/08/2018 | | Results for this | | | e | 9:44 PM | | procedure are in the | | | | PDT | | results section. | + +--------+ + + + | POC GLUCOSE | Routin | 03/08/2018 | | Results for this | | | e | 7:45 PM | | procedure are in the | | | | PDT | | results section. | + +--------+ + + + | POC GLUCOSE | Routin | 03/08/2018 | | Results for this | | | e | 4:20 PM | | procedure are in the | | | | PDT | | results section. | + +--------+ + + + | POC GLUCOSE | Routin | 03/08/2018 | | Results for this | | | e | 12:33 PM | | procedure are in the | | | | PDT | | results section. | + +--------+ + + + | POC GLUCOSE | Routin | 03/08/2018 | | Results for this | | | e | 11:37 AM | | procedure are in the | | | | PDT | | results section. | + +--------+ + + + | POC GLUCOSE | Routin | 03/08/2018 | | Results for this | | | e | 10:23 AM | | procedure are in the | | | | PDT | | results section. | + +--------+ + + + | POC GLUCOSE | Routin | 03/08/2018 | | Results for this | | | e | 9:15 AM | | procedure are in the | | | | PDT | | results section. | + +--------+ + + + | POC GLUCOSE | Routin | 03/08/2018 | | Results for this | | | e | 6:48 AM | | procedure are in the | | | | PDT | | results section. | + +--------+ + + + | POC GLUCOSE | Routin | 03/08/2018 | | Results for this | | | e | 5:09 AM | | procedure are in the | | | | PDT | | results section. | + +--------+ + + + | POC GLUCOSE | Routin | 03/08/2018 | | Results for this | | | e | 4:46 AM | | procedure are in the | | | | PDT | | results section. | + +--------+ + + + | EXTERNAL LAB: CBC | Routin | 03/08/2018 | | Results for this | | | e | 4:08 AM | | procedure are in the | | | | PDT | | results section. | + +--------+ + + + | MAGNESIUM | Routin | 03/08/2018 | | Results for this | | | e | 4:08 AM | | procedure are in the | | | | PDT | | results section. | + +--------+ + + + | HEMOGLOBIN A1C | Routin | 03/08/2018 | | Results for this | | | e | 4:08 AM | | procedure are in the | | | | PDT | | results section. | + +--------+ + + + | BASIC METABOLIC | Routin | 03/08/2018 | | Results for this | | PANEL | e | 4:08 AM | | procedure are in the | | | | PDT | | results section. | + +--------+ + + + | POC GLUCOSE | Routin | 03/08/2018 | | Results for this | | | e | 2:40 AM | | procedure are in the | | | | PDT | | results section. | + +--------+ + + + | POC GLUCOSE | Routin | 03/08/2018 | | Results for this | | | e | 1:29 AM | | procedure are in the | | | | PDT | | results section. | + +--------+ + + + | POC GLUCOSE | Routin | 03/08/2018 | | Results for this | | | e | 12:10 AM | | procedure are in the | | | | PDT | | results section. | + +--------+ + + + | POC GLUCOSE | Routin | 03/07/2018 | | Results for this | | | e | 10:49 PM | | procedure are in the | | | | PDT | | results section. | + +--------+ + + + | POC GLUCOSE | Routin | 03/07/2018 | | Results for this | | | e | 9:26 PM | | procedure are in the | | | | PDT | | results section. | + +--------+ + + + | POC GLUCOSE | Routin | 03/07/2018 | | Results for this | | | e | 8:27 PM | | procedure are in the | | | | PDT | | results section. | + +--------+ + + + | POC GLUCOSE | Routin | 03/07/2018 | | Results for this | | | e | 7:50 PM | | procedure are in the | | | | PDT | | results section. | + +--------+ + + + | POC GLUCOSE | Routin | 03/07/2018 | | Results for this | | | e | 6:43 PM | | procedure are in the | | | | PDT | | results section. | + +--------+ + + + | POC GLUCOSE | Routin | 03/07/2018 | | Results for this | | | e | 5:37 PM | | procedure are in the | | | | PDT | | results section. | + +--------+ + + + | POC GLUCOSE | Routin | 03/07/2018 | | Results for this | | | e | 4:26 PM | | procedure are in the | | | | PDT | | results section. | + +--------+ + + + | POC GLUCOSE | Routin | 03/07/2018 | | Results for this | | | e | 3:21 PM | | procedure are in the | | | | PDT | | results section. | + +--------+ + + + | POC GLUCOSE | Routin | 03/07/2018 | | Results for this | | | e | 1:53 PM | | procedure are in the | | | | PDT | | results section. | + +--------+ + + + | POC GLUCOSE | Routin | 03/07/2018 | | Results for this | | | e | 1:20 PM | | procedure are in the | | | | PDT | | results section. | + +--------+ + + + | POC GLUCOSE | Routin | 03/07/2018 | | Results for this | | | e | 11:08 AM | | procedure are in the | | | | PDT | | results section. | + +--------+ + + + | ECHO COMPLETE W | Routin | 03/07/2018 | | Results for this | | CONTRAST | e | 10:22 AM | | procedure are in the | | | | PDT | | results section. | + +--------+ + + + | TROPONIN I | Routin | 03/07/2018 | | Results for this | | | e | 6:18 AM | | procedure are in the | | | | PDT | | results section. | + +--------+ + + + | POC GLUCOSE | Routin | 03/07/2018 | | Results for this | | | e | 6:17 AM | | procedure are in the | | | | PDT | | results section. | + +--------+ + + + | URINALYSIS WITH | Routin | 03/07/2018 | | Results for this | | MICROSCOPIC IF | e | 6:15 AM | | procedure are in the | | INDICATED | | PDT | | results section. | + +--------+ + + + | VAS CAROTID DUPLEX | Routin | 03/07/2018 | | Results for this | | BILATERAL | e | 5:40 AM | | procedure are in the | | | | PDT | | results section. | + +--------+ + + + | POC GLUCOSE | Routin | 03/07/2018 | | Results for this | | | e | 4:59 AM | | procedure are in the | | | | PDT | | results section. | + +--------+ + + + | POC GLUCOSE | Routin | 03/07/2018 | | Results for this | | | e | 3:39 AM | | procedure are in the | | | | PDT | | results section. | + +--------+ + + + | EXTERNAL LAB: CBC | Routin | 03/07/2018 | | Results for this | | | e | 3:22 AM | | procedure are in the | | | | PDT | | results section. | + +--------+ + + + | LIPID PANEL | Routin | 03/07/2018 | | Results for this | | | e | 3:22 AM | | procedure are in the | | | | PDT | | results section. | + +--------+ + + + | TROPONIN I | Routin | 03/07/2018 | | Results for this | | | e | 3:22 AM | | procedure are in the | | | | PDT | | results section. | + +--------+ + + + | PHOSPHORUS | Routin | 03/07/2018 | | Results for this | | | e | 3:22 AM | | procedure are in the | | | | PDT | | results section. | + +--------+ + + + | MAGNESIUM | Routin | 03/07/2018 | | Results for this | | | e | 3:22 AM | | procedure are in the | | | | PDT | | results section. | + +--------+ + + + | HEMOGLOBIN A1C | Routin | 03/07/2018 | | Results for this | | | e | 3:22 AM | | procedure are in the | | | | PDT | | results section. | + +--------+ + + + | COMPREHENSIVE | Routin | 03/07/2018 | | Results for this | | METABOLIC PANEL | e | 3:22 AM | | procedure are in the | | | | PDT | | results section. | + +--------+ + + + | POC GLUCOSE | Routin | 03/06/2018 | | Results for this | | | e | 11:55 PM | | procedure are in the | | | | PDT | | results section. | + +--------+ + + + | MRI BRAIN W WO | Routin | 03/06/2018 | | Results for this | | CONTRAST ANGIOGRAM | e | 9:27 PM | | procedure are in the | | HEAD WO CONTRAST | | PDT | | results section. | + +--------+ + + + | HISTORICAL LAB PANEL | Routin | 03/06/2018 | | Results for this | | RESULT | e | 7:40 PM | | procedure are in the | | | | PDT | | results section. | + +--------+ + + + | TROPONIN I | Routin | 03/06/2018 | | Results for this | | | e | 7:40 PM | | procedure are in the | | | | PDT | | results section. | + +--------+ + + + | POC GLUCOSE | Routin | 03/06/2018 | | Results for this | | | e | 7:27 PM | | procedure are in the | | | | PDT | | results section. | + +--------+ + + + | ECG 12 LEAD | Routin | 03/06/2018 | | Results for this | | | e | 7:18 PM | | procedure are in the | | | | PDT | | results section. | + +--------+ + + + | CT HEAD W CONTRAST | Routin | 03/06/2018 | | Results for this | | | e | 4:11 PM | | procedure are in the | | | | PDT | | results section. | + +--------+ + + + | CT HEAD WO CONTRAST | Routin | 03/06/2018 | | Results for this | | | e | 4:08 PM | | procedure are in the | | | | PDT | | results section. | + +--------+ + + + documented in this encounter Results POC Glucose (03/12/2018 12:13 PM PDT) + + + + + + | Component | Value | Ref Range | Performed | Pathologist | | | | | At | Signature | + + + + + + | Glucose, | 170 (H)Comment: Testing | 65 - 99 mg/dL | EXTERNAL | | | Fingerstick | performed at [facility] | | [address] | | | [address];[place] | | | | | | [address] | | | | + + + + + + + + | Specimen | + + | | + + + +---------+ + + | Performing | Address | City/State/Zipcode | Phone Number | | Organization | | | | + +---------+ + + | EXTERNAL LAB | | | | + +---------+ + + POC Glucose (03/12/2018 5:47 AM PDT) + + + + + + | Component | Value | Ref Range | Performed | Pathologist | | | | | At | Signature | + + + + + + | Glucose, | 125 (H)Comment: Testing | 65 - 99 mg/dL | EXTERNAL | | | Fingerstick | performed at [facility];[address] | | LAB | | | | [address];[place], [place] | | | | | | [address] | | | | + + + + + + + + | Specimen | + + | | + + + +---------+ + + | Performing | Address | City/State/Zipcode | Phone Number | | Organization | | | | + +---------+ + + | EXTERNAL LAB | | | | + +---------+ + + External Lab: [facility] (03/12/2018 4:05 AM PDT) + + + + + + | Component | Value | Ref Range | Performed | Pathologist | | | | | At | Signature | + + + + + + | WBC | 6.03 | 3.80 - 11.00 | EXTERNAL | | | | | K/uL | LAB | | + + + + + + | Red Blood | 4.23 | 4.20 - 5.70 | EXTERNAL | | | Cells | | M/uL | LAB | | | Counted | | | | | + + + + + + | Hemoglobin | 13.1 (L) | 13.2 - 17.0 | EXTERNAL | | | | | g/dL | LAB | | + + + + + + | Hematocrit, | 37.2 (L) | 39.0 - 50.0 % | EXTERNAL | | | POC | | | LAB | | + + + + + + | MCV | 88.0 | 80.0 - 100.0 fl | EXTERNAL | | | | | | LAB | | + + + + + + | MCH | 30.9 | 27.0 - 34.0 pg | EXTERNAL | | | | | | LAB | | + + + + + + | MCHC | 35.1 | 32.0 - 35.5 | EXTERNAL | | | | | g/dL | LAB | | + + + + + + | RDW-CV | 43.3 | 37 - 53 fl | EXTERNAL | | | | | | LAB | | + + + + + + | Platelet | 247 | 150 - 400 K/uL | EXTERNAL | | | Count | | | LAB | | | Plasma | | | | | + + + + + + | MPV | 8.6 | fl | EXTERNAL | | | | | | LAB | | + + + + + + | Differentia | AUTOMATED | | EXTERNAL | | | l Type | | | LAB | | + + + + + + | % Segmented | 48.88 | % | EXTERNAL | | | | | | LAB | | | Neutrophils | | | | | + + + + + + | % | 37.07 | % | EXTERNAL | | | Lymphocytes | | | LAB | | + + + + + + | % Monocytes | 8.30 | % | EXTERNAL | | | | | | LAB | | + + + + + + | % | 5.23 | % | EXTERNAL | | | Eosinophils | | | LAB | | + + + + + + | % Basophils | 0.52 | % | EXTERNAL | | | | | | LAB | | + + + + + + | Absolute | 2.95 | 1.90 - 7.40 | EXTERNAL | | | Segmented | | K/uL | LAB | | | Neutrophils | | | | | + + + + + + | Absolute | 2.24 | 1.00 - 3.90 | EXTERNAL | | | Lymphocytes | | K/uL | LAB | | + + + + + + | Absolute | 0.50 | 0.00 - 0.80 | EXTERNAL | | | Monocytes | | K/uL | LAB | | + + + + + + | Absolute | 0.32 | 0.00 - 0.50 | EXTERNAL | | | Eosinophils | | K/uL | LAB | | + + + + + + | Absolute | 0.03Comment: Testing | 0.00 - 0.10 | EXTERNAL | | | Basophils | performed at [facility], [address] | [address] | LAB | | | | [address], | | | | | | [place] [address] | | | | + + + + + + + + | Specimen | + + | Blood specimen | | (specimen) | + + + +---------+ + + | Performing | Address | City/State/Zipcode | Phone Number | | Organization | | | | + +---------+ + + | EXTERNAL LAB | | | | + +---------+ + + Basic Metabolic Panel (03/12/2018 4:05 AM PDT) + + + + + + | Component | Value | Ref Range | Performed | Pathologist | | | | | At | Signature | + + + + + + | Na | 140 | 135 - 145 | EXTERNAL | | | | | mmol/L | LAB | | + + + + + + | K | 3.7 | 3.5 - 4.9 | EXTERNAL | | | | | mmol/L | LAB | | + + + + + + | Cl | 106 | 99 - 109 mmol/L | EXTERNAL | | | | | | LAB | | + + + + + + | CO2 | 25 | 23 - 32 mmol/L | EXTERNAL | | | | | | LAB | | + + + + + + | Anion Gap | 13 | 5 - 20 mmol/L | EXTERNAL | | | | | | LAB | | + + + + + + | Glucose, | 157 (H) | 65 - 99 mg/dL | EXTERNAL | | | Fasting | | | LAB | | + + + + + + | BUN | 10 | 8 - 25 mg/dL | EXTERNAL | | | | | | LAB | | + + + + + + | Creatinine | 0.9 | 0.70 - 1.30 | EXTERNAL | | | | | mg/dL | LAB | | + + + + + + | BUN/Creatin | 11 | | EXTERNAL | | | ine Ratio | | | LAB | | + + + + + + | Calcium | 8.5 | 8.5 - 10.5 | EXTERNAL | | | | | mg/dL | LAB | | + + + + + + | Estimated | >60Comment: GFR <60: | mL/min/1.73m2 | EXTERNAL | | | GFR | CHRONIC KIDNEY DISEASE, | | LAB | | | | IF FOUND OVER A 3 MONTH | | | | | | PERIOD.GFR <15: KIDNEY | | | | | | FAILURE.FOR | | | | | | AMERICANS, MULTIPLY THE | | | | | | CALCULATED GFR BY | | | | | | 1.210.Testing performed | | | | | | at [facility], [address] | | | | | | [address], | | | | | | [place] [address] | | | | + + + + + + + + | Specimen | + + | Blood specimen | | (specimen) | + + + +---------+ + + | Performing | Address | City/State/Zipcode | Phone Number | | Organization | | | | + +---------+ + + | EXTERNAL LAB | | | | + +---------+ + + POC Glucose (03/11/2018 9:03 PM PDT) + + + + + + | Component | Value | Ref Range | Performed | Pathologist | | | | | At | Signature | + + + + + + | Glucose, | 217 (H)Comment: Testing | 65 - 99 mg/dL | EXTERNAL | | | Fingerstick | performed at [facility] | | LAB | | | | [address];[place], [place] | | | | | | [address] | | | | + + + + + + + + | Specimen | + + | | + + + +---------+ + + | Performing | Address | City/State/Zipcode | Phone Number | | Organization | | | | + +---------+ + + | EXTERNAL LAB | | | | + +---------+ + + POC Glucose (03/11/2018 4:40 PM PDT) + + + + + + | Component | Value | Ref Range | Performed | Pathologist | | | | | At | Signature | + + + + + + | Glucose, | 119 (H)Comment: Testing | 65 - 99 mg/dL | EXTERNAL | | | Fingerstick | performed at [facility];[address] | | LAB | | | | [address];[place] | | | | | | [address] | | | | + + + + + + + + | Specimen | + + | | + + + +---------+ + + | Performing | Address | City/State/Zipcode | Phone Number | | Organization | | | | + +---------+ + + | EXTERNAL LAB | | | | + +---------+ + + POC Glucose (03/11/2018 2:03 PM PDT) + + + + + + | Component | Value | Ref Range | Performed | Pathologist | | | | | At | Signature | + + + + + + | Glucose, | 135 (H)Comment: Testing | 65 - 99 mg/dL | EXTERNAL | | | Fingerstick | performed at [facility];[address] | | LAB | | | | [address];[place] | | | | | | [address] | | | | + + + + + + + + | Specimen | + + | | + + + +---------+ + + | Performing | Address | City/State/Zipcode | Phone Number | | Organization | | | | + +---------+ + + | EXTERNAL LAB | | | | + +---------+ + + POC Glucose (03/11/2018 10:58 AM PDT) + + + + + + | Component | Value | Ref Range | Performed | Pathologist | | | | | At | Signature | + + + + + + | Glucose, | 143 (H)Comment: Testing | 65 - 99 mg/dL | EXTERNAL | | | Fingerstick | performed at [facility];[address] | | LAB | | | | [address];[place] | | | | | | [address] | | | | + + + + + + + + | Specimen | + + | | + + + +---------+ + + | Performing | Address | City/State/Zipcode | Phone Number | | Organization | | | | + +---------+ + + | EXTERNAL LAB | | | | + +---------+ + + POC Glucose (03/11/2018 5:38 AM PDT) + + + + + + | Component | Value | Ref Range | Performed | Pathologist | | | | | At | Signature | + + + + + + | Glucose, | 155 (H)Comment: Testing | 65 - 99 mg/dL | EXTERNAL | | | Fingerstick | performed at [facility];[address] | | LAB | | | | [address];[place], [place] | | | | | | [address] | | | | + + + + + + + + | Specimen | + + | | + + + +---------+ + + | Performing | Address | City/State/Zipcode | Phone Number | | Organization | | | | + +---------+ + + | EXTERNAL LAB | | | | + +---------+ + + External Lab: CBC (03/11/2018 4:18 AM PDT) + + + + + + | Component | Value | Ref Range | Performed | Pathologist | | | | | At | Signature | + + + + + + | WBC | 7.68 | 3.80 - 11.00 | EXTERNAL | | | | | K/uL | LAB | | + + + + + + | Red Blood | 4.41 | 4.20 - 5.70 | EXTERNAL | | | Cells | | M/uL | LAB | | | Counted | | | | | + + + + + + | Hemoglobin | 13.6 | 13.2 - 17.0 | EXTERNAL | | | | | g/dL | LAB | | + + + + + + | Hematocrit, | 39.3 | 39.0 - 50.0 % | EXTERNAL | | | POC | | | LAB | | + + + + + + | MCV | 89.0 | 80.0 - 100.0 fl | EXTERNAL | | | | | | LAB | | + + + + + + | MCH | 30.8 | 27.0 - 34.0 pg | EXTERNAL | | | | | | LAB | | + + + + + + | MCHC | 34.6 | 32.0 - 35.5 | EXTERNAL | | | | | g/dL | LAB | | + + + + + + | RDW-CV | 44.6 | 37 - 53 fl | EXTERNAL | | | | | | LAB | | + + + + + + | Platelet | 213 | 150 - 400 K/uL | EXTERNAL | | | Count | | | LAB | | | Plasma | | | | | + + + + + + | MPV | 8.9 | fl | EXTERNAL | | | | | | LAB | | + + + + + + | Differentia | AUTOMATED | | EXTERNAL | | | l Type | | | LAB | | + + + + + + | % Segmented | 63.22 | % | EXTERNAL | | | | | | LAB | | | Neutrophils | | | | | + + + + + + | % | 24.18 | % | EXTERNAL | | | Lymphocytes | | | LAB | | + + + + + + | % Monocytes | 8.59 | % | EXTERNAL | | | | | | LAB | | + + + + + + | % | 3.44 | % | EXTERNAL | | | Eosinophils | | | LAB | | + + + + + + | % Basophils | 0.57 | % | EXTERNAL | | | | | | LAB | | + + + + + + | Absolute | 4.86 | 1.90 - 7.40 | EXTERNAL | | | Segmented | | K/uL | LAB | | | Neutrophils | | | | | + + + + + + | Absolute | 1.86 | 1.00 - 3.90 | EXTERNAL | | | Lymphocytes | | K/uL | LAB | | + + + + + + | Absolute | 0.66 | 0.00 - 0.80 | EXTERNAL | | | Monocytes | | K/uL | LAB | | + + + + + + | Absolute | 0.27 | 0.00 - 0.50 | EXTERNAL | | | Eosinophils | | K/uL | LAB | | + + + + + + | Absolute | 0.04Comment: Testing | 0.00 - 0.10 | EXTERNAL | | | Basophils | performed at [facility], [address] | [address] | LAB | | | | [address], | | | | | | [place] [address] | | | | + + + + + + + + | Specimen | + + | Blood specimen | | (specimen) | + + + +---------+ + + | Performing | Address | City/State/Zipcode | Phone Number | | Organization | | | | + +---------+ + + | EXTERNAL LAB | | | | + +---------+ + + Magnesium (03/11/2018 4:18 AM PDT) + + + + + + | Component | Value | Ref Range | Performed | Pathologist | | | | | At | Signature | + + + + + + | Magnesium | 2.0Comment: SPECIMEN | 1.7 - 2.4 mg/dL | EXTERNAL | | | | SLIGHTLY | | LAB | | | | HEMOLYZEDTesting | | | | | | performed at [facility], [address] | | | | | [address], | | | | | | [place] [address] | | | | + + + + + + + + | Specimen | + + | Blood specimen | | (specimen) | + + + +---------+ + + | Performing | Address | City/State/Zipcode | Phone Number | | Organization | | | | + +---------+ + + | EXTERNAL LAB | | | | + +---------+ + + Basic Metabolic Panel (03/11/2018 4:18 AM PDT) + + + + + + | Component | Value | Ref Range | Performed | Pathologist | | | | | At | Signature | + + + + + + | Na | 138 | 135 - 145 | EXTERNAL | | | | | mmol/L | LAB | | + + + + + + | K | 3.9Comment: SPECIMEN | 3.5 - 4.9 | EXTERNAL | | | | SLIGHTLY HEMOLYZED | mmol/L | LAB | | + + + + + + | Cl | 107 | 99 - 109 mmol/L | EXTERNAL | | | | | | LAB | | + + + + + + | CO2 | 21 (L) | 23 - 32 mmol/L | EXTERNAL | | | | | | LAB | | + + + + + + | Anion Gap | 14 | 5 - 20 mmol/L | EXTERNAL | | | | | | LAB | | + + + + + + | Glucose, | 146 (H)Comment: SPECIMEN | 65 - 99 mg/dL | EXTERNAL | | | Fasting | SLIGHTLY HEMOLYZED | | LAB | | + + + + + + | BUN | 13 | 8 - 25 mg/dL | EXTERNAL | | | | | | LAB | | + + + + + + | Creatinine | 1.0Comment: SPECIMEN | 0.70 - 1.30 | EXTERNAL | | | | SLIGHTLY HEMOLYZED | mg/dL | LAB | | + + + + + + | BUN/Creatin | 13 | | EXTERNAL | | | ine Ratio | | | LAB | | + + + + + + | Calcium | 8.4 (L) | 8.5 - 10.5 | EXTERNAL | | | | | mg/dL | LAB | | + + + + + + | Estimated | >60Comment: GFR <60: | mL/min/1.73m2 | EXTERNAL | | | GFR | CHRONIC KIDNEY DISEASE, | | LAB | | | | IF FOUND OVER A 3 MONTH | | | | | | PERIOD.GFR <15: KIDNEY | | | | | | FAILURE.FOR | | | | | | AMERICANS, MULTIPLY THE | | | | | | CALCULATED GFR BY | | | | | | 1.210.Testing performed | | | | | | at [facility], [address] | | | | | | [address], | | | | | | [place] [address] | | | | + + + + + + + + | Specimen | + + | Blood specimen | | (specimen) | + + + +---------+ + + | Performing | Address | City/State/Zipcode | Phone Number | | Organization | | | | + +---------+ + + | EXTERNAL LAB | | | | + +---------+ + + POC Glucose (03/10/2018 9:45 PM PDT) + + + + + + | Component | Value | Ref Range | Performed | Pathologist | | | | | At | Signature | + + + + + + | Glucose, | 198 (H)Comment: Testing | 65 - 99 mg/dL | EXTERNAL | | | Fingerstick | performed at [facility];[address] | | LAB | | | [address];[place], [place] | | | | | | [address] | | | | + + + + + + + + | Specimen | + + | | + + + +---------+ + + | Performing | Address | City/State/Zipcode | Phone Number | | Organization | | | | + +---------+ + + | EXTERNAL LAB | | | | + +---------+ + + POC Glucose (03/10/2018 4:31 PM PDT) + + + + + + | Component | Value | Ref Range | Performed | Pathologist | | | | | At | Signature | + + + + + + | Glucose, | 211 (H)Comment: Testing | 65 - 99 mg/dL | EXTERNAL | | | Fingerstick | performed at [facility];[address] | | LAB | | | | [address];[place], [place] | | | | | | [address] | | | | + + + + + + + + | Specimen | + + | | + + + +---------+ + + | Performing | Address | City/State/Zipcode | Phone Number | | Organization | | | | + +---------+ + + | EXTERNAL LAB | | | | + +---------+ + + POC Glucose (03/10/2018 3:00 PM PDT) + + + + + + | Component | Value | Ref Range | Performed | Pathologist | | | | | At | Signature | + + + + + + | Glucose, | 179 (H)Comment: Testing | 65 - 99 mg/dL | EXTERNAL | | | Fingerstick | performed at [facility];[address] | | LAB | | | | [address];[place] | | | | | | [address] | | | | + + + + + + + + | Specimen | + + | | + + + +---------+ + + | Performing | Address | City/State/Zipcode | Phone Number | | Organization | | | | + +---------+ + + | EXTERNAL LAB | | | | + +---------+ + + POC Glucose (03/10/2018 1:59 PM PDT) + + + + + + | Component | Value | Ref Range | Performed | Pathologist | | | | | At | Signature | + + + + + + | Glucose, | 120 (H)Comment: Testing | 65 - 99 mg/dL | EXTERNAL | | | Fingerstick | performed at [facility];[address] | | LAB | | | | [address];[place] | | | | | | [address] | | | | + + + + + + + + | Specimen | + + | | + + + +---------+ + + | Performing | Address | City/State/Zipcode | Phone Number | | Organization | | | | + +---------+ + + | EXTERNAL LAB | | | | + +---------+ + + POC Glucose (03/10/2018 12:57 PM PDT) + + + + + + | Component | Value | Ref Range | Performed | Pathologist | | | | | At | Signature | + + + + + + | Glucose, | 140 (H)Comment: Testing | 65 - 99 mg/dL | EXTERNAL | | | Fingerstick | performed at [facility];[address] | | LAB | | | | [address];[place] | | | | | | [address] | | | | + + + + + + + + | Specimen | + + | | + + + +---------+ + + | Performing | Address | City/State/Zipcode | Phone Number | | Organization | | | | + +---------+ + + | EXTERNAL LAB | | | | + +---------+ + + POC Glucose (03/10/2018 12:01 PM PDT) + + + + + + | Component | Value | Ref Range | Performed | Pathologist | | | | | At | Signature | + + + + + + | Glucose, | 185 (H)Comment: Testing | 65 - 99 mg/dL | EXTERNAL | | | Fingerstick | performed at [facility];[address] | | LAB | | | | [address];[place] | | | | | | [address] | | | | + + + + + + + + | Specimen | + + | | + + + +---------+ + + | Performing | Address | City/State/Zipcode | Phone Number | | Organization | | | | + +---------+ + + | EXTERNAL LAB | | | | + +---------+ + + POC Glucose (03/10/2018 11:32 AM PDT) + + + + + + | Component | Value | Ref Range | Performed | Pathologist | | | | | At | Signature | + + + + + + | Glucose, | 175 (H)Comment: Testing | 65 - 99 mg/dL | EXTERNAL | | | Fingerstick | performed at [facility];[address] | | LAB | | | | [address];[place], [place] | | | | | | [address] | | | | + + + + + + + + | Specimen | + + | | + + + +---------+ + + | Performing | Address | City/State/Zipcode | Phone Number | | Organization | | | | + +---------+ + + | EXTERNAL LAB | | | | + +---------+ + + POC Glucose (03/10/2018 10:31 AM PDT) + + + + + + | Component | Value | Ref Range | Performed | Pathologist | | | | | At | Signature | + + + + + + | Glucose, | 149 (H)Comment: Testing | 65 - 99 mg/dL | EXTERNAL | | | Fingerstick | performed at [facility];[address] | | LAB | | | | [address];[place], [place] | | | | | | [address] | | | | + + + + + + + + | Specimen | + + | | + + + +---------+ + + | Performing | Address | City/State/Zipcode | Phone Number | | Organization | | | | + +---------+ + + | EXTERNAL LAB | | | | + +---------+ + + POC Glucose (03/10/2018 9:29 AM PDT) + + + + + + | Component | Value | Ref Range | Performed | Pathologist | | | | | At | Signature | + + + + + + | Glucose, | 129 (H)Comment: Testing | 65 - 99 mg/dL | EXTERNAL | | | Fingerstick | performed at [facility];[address] | | LAB | | | | [address];[place], [place] | | | | | | [address] | | | | + + + + + + + + | Specimen | + + | | + + + +---------+ + + | Performing | Address | City/State/Zipcode | Phone Number | | Organization | | | | + +---------+ + + | EXTERNAL LAB | | | | + +---------+ + + POC Glucose (03/10/2018 8:26 AM PDT) + + + + + + | Component | Value | Ref Range | Performed | Pathologist | | | | | At | Signature | + + + + + + | Glucose, | 139 (H)Comment: Testing | 65 - 99 mg/dL | EXTERNAL | | | Fingerstick | performed at [facility];[address] | | LAB | | | | [address];[place] | | | | | | [address] | | | | + + + + + + + + | Specimen | + + | | + + + +---------+ + + | Performing | Address | City/State/Zipcode | Phone Number | | Organization | | | | + +---------+ + + | EXTERNAL LAB | | | | + +---------+ + + POC Glucose (03/10/2018 7:19 AM PDT) + + + + + + | Component | Value | Ref Range | Performed | Pathologist | | | | | At | Signature | + + + + + + | Glucose, | 145 (H)Comment: Testing | 65 - 99 mg/dL | EXTERNAL | | | Fingerstick | performed at [facility];[address] | | LAB | | | | [address];[place] | | | | | | [address] | | | | + + + + + + + + | Specimen | + + | | + + + +---------+ + + | Performing | Address | City/State/Zipcode | Phone Number | | Organization | | | | + +---------+ + + | EXTERNAL LAB | | | | + +---------+ + + POC Glucose (03/10/2018 6:02 AM PDT) + + + + + + | Component | Value | Ref Range | Performed | Pathologist | | | | | At | Signature | + + + + + + | Glucose, | 145 (H)Comment: Testing | 65 - 99 mg/dL | EXTERNAL | | | Fingerstick | performed at [facility];[address] | | LAB | | | | [address];[place] | | | | | | [address] | | | | + + + + + + + + | Specimen | + + | | + + + +---------+ + + | Performing | Address | City/State/Zipcode | Phone Number | | Organization | | | | + +---------+ + + | EXTERNAL LAB | | | | + +---------+ + + POC Glucose (03/10/2018 4:58 AM PDT) + + + + + + | Component | Value | Ref Range | Performed | Pathologist | | | | | At | Signature | + + + + + + | Glucose, | 142 (H)Comment: Testing | 65 - 99 mg/dL | EXTERNAL | | | Fingerstick | performed at [facility];[address] | | LAB | | | | [address];[place], [place] | | | | | | [address] | | | | + + + + + + + + | Specimen | + + | | + + + +---------+ + + | Performing | Address | City/State/Zipcode | Phone Number | | Organization | | | | + +---------+ + + | EXTERNAL LAB | | | | + +---------+ + + Procalcitonin (03/10/2018 4:05 AM PDT) + + + + + + | Component | Value | Ref Range | Performed | Pathologist | | | | | At | Signature | + + + + + + | PROCALCITON | 1.67 (H)Comment: | ng/mL | EXTERNAL | | | IN | INTERPRETIVE | | LAB | | | | INFORMATION: | | | | | | PROCALCITONIN PCT <= | | | | | | 0.5 ng/mL: Low risk | | | | | | for progression to | | | | | | severe systemic | | | | | | bacterial infection | | | | | | (severe sepsis/septic | | | | | | shock). Does not | | | | | | exclude an infection, | | | | | | because localized | | | | | | infections may be | | | | | | associated with such low | | | | | | levels. If PCT is | | | | | | measured very early | | | | | | after bacterial | | | | | | challenge (usually <6 | | | | | | hours), results may | | | | | | still be low and | | | | | | should re-assess PCT | | | | | | 6-24 hours later. PCT | | | | | | >0.5 and <= 2 ng/mL: | | | | | | Moderate risk for | | | | | | progression to severe | | | | | | systemic infection | | | | | | (severe sepsis/septic | | | | | | shock). Other | | | | | | conditions are known | | | | | | to elevate PCT, patient | | | | | | should be closely | | | | | | monitored both | | | | | | clinically and by | | | | | | re-assessing PCT | | | | | | within 6-24 hours. PCT > | | | | | | 2 ng/mL: High | | | | | | likelihood for | | | | | | progression to severe | | | | | | systemic bacterial | | | | | | infection (severe | | | | | | sepsis/septic shock). | | | | | | PCT >= 10 ng/mL: | | | | | | High likelihood of | | | | | | severe sepsis or septic | | | | | | shock.Testing performed | | | | | | at [facility];[address] [place] [address] | | | | | | [facility];[place] [address] | | | | + + + + + + + + | Specimen | + + | | + + + +---------+ + + | Performing | Address | City/State/Zipcode | Phone Number | | Organization | | | | + +---------+ + + | EXTERNAL LAB | | | | + +---------+ + + External Lab: CBC (03/10/2018 4:05 AM PDT) + + + + + + | Component | Value | Ref Range | Performed | Pathologist | | | | | At | Signature | + + + + + + | WBC | 12.64 (H) | 3.80 - 11.00 | EXTERNAL | | | | | K/uL | LAB | | + + + + + + | Red Blood | 4.28 | 4.20 - 5.70 | EXTERNAL | | | Cells | | M/uL | LAB | | | Counted | | | | | + + + + + + | Hemoglobin | 12.9 (L) | 13.2 - 17.0 | EXTERNAL | | | | | g/dL | LAB | | + + + + + + | Hematocrit, | 38.0 (L) | 39.0 - 50.0 % | EXTERNAL | | | POC | | | LAB | | + + + + + + | MCV | 88.8 | 80.0 - 100.0 fl | EXTERNAL | | | | | | LAB | | + + + + + + | MCH | 30.0 | 27.0 - 34.0 pg | EXTERNAL | | | | | | LAB | | + + + + + + | MCHC | 33.8 | 32.0 - 35.5 | EXTERNAL | | | | | g/dL | LAB | | + + + + + + | RDW-CV | 43.8 | 37 - 53 fl | EXTERNAL | | | | | | LAB | | + + + + + + | Platelet | 186 | 150 - 400 K/uL | EXTERNAL | | | Count | | | LAB | | | Plasma | | | | | + + + + + + | MPV | 8.5 | fl | EXTERNAL | | | | | | LAB | | + + + + + + | Differentia | AUTOMATED | | EXTERNAL | | | l Type | | | LAB | | + + + + + + | % Segmented | 82.35 | % | EXTERNAL | | | | | | LAB | | | Neutrophils | | | | | + + + + + + | % | 11.91 | % | EXTERNAL | | | Lymphocytes | | | LAB | | + + + + + + | % Monocytes | 4.94 | % | EXTERNAL | | | | | | LAB | | + + + + + + | % | 0.62 | % | EXTERNAL | | | Eosinophils | | | LAB | | + + + + + + | % Basophils | 0.18 | % | EXTERNAL | | | | | | LAB | | + + + + + + | Absolute | 10.41 (H) | 1.90 - 7.40 | EXTERNAL | | | Segmented | | K/uL | LAB | | | Neutrophils | | | | | + + + + + + | Absolute | 1.51 | 1.00 - 3.90 | EXTERNAL | | | Lymphocytes | | K/uL | LAB | | + + + + + + | Absolute | 0.62 | 0.00 - 0.80 | EXTERNAL | | | Monocytes | | K/uL | LAB | | + + + + + + | Absolute | 0.08 | 0.00 - 0.50 | EXTERNAL | | | Eosinophils | | K/uL | LAB | | + + + + + + | Absolute | 0.02Comment: Testing | 0.00 - 0.10 | EXTERNAL | | | Basophils | performed at [facility], [address] | K/[address] | LAB | | | | [address], | | | | | | [place] [address] | | | | + + + + + + + + | Specimen | + + | Blood specimen | | (specimen) | + + + +---------+ + + | Performing | Address | City/State/Zipcode | Phone Number | | Organization | | | | + +---------+ + + | EXTERNAL LAB | | | | + +---------+ + + Phosphorus (03/10/2018 4:05 AM PDT) + + + + + + | Component | Value | Ref Range | Performed | Pathologist | | | | | At | Signature | + + + + + + | PHOSPHORUS | 1.5 (L)Comment: Testing | 2.3 - 4.8 mg/dL | EXTERNAL | | | | performed at [facility], [address] | | LAB | | | | [address], | | | | | | [place] [address] | | | | + + + + + + + + | Specimen | + + | Blood specimen | | (specimen) | + + + +---------+ + + | Performing | Address | City/State/Zipcode | Phone Number | | Organization | | | | + +---------+ + + | EXTERNAL LAB | | | | + +---------+ + + Magnesium (03/10/2018 4:05 AM PDT) + + + + + + | Component | Value | Ref Range | Performed | Pathologist | | | | | At | Signature | + + + + + + | Magnesium | 1.7Comment: Testing | 1.7 - 2.4 mg/dL | EXTERNAL | | | | performed at [facility], [address] | | LAB | | | | [address], | | | | | | [place] [address] | | | | + + + + + + + + | Specimen | + + | Blood specimen | | (specimen) | + + + +---------+ + + | Performing | Address | City/State/Zipcode | Phone Number | | Organization | | | | + +---------+ + + | EXTERNAL LAB | | | | + +---------+ + + Basic Metabolic Panel (03/10/2018 4:05 AM PDT) + + + + + + | Component | Value | Ref Range | Performed | Pathologist | | | | | At | Signature | + + + + + + | Na | 137 | 135 - 145 | EXTERNAL | | | | | mmol/L | LAB | | + + + + + + | K | 3.5 | 3.5 - 4.9 | EXTERNAL | | | | | mmol/L | LAB | | + + + + + + | Cl | 104 | 99 - 109 mmol/L | EXTERNAL | | | | | | LAB | | + + + + + + | CO2 | 24 | 23 - 32 mmol/L | EXTERNAL | | | | | | LAB | | + + + + + + | Anion Gap | 13 | 5 - 20 mmol/L | EXTERNAL | | | | | | LAB | | + + + + + + | Glucose, | 138 (H) | 65 - 99 mg/dL | EXTERNAL | | | Fasting | | | LAB | | + + + + + + | BUN | 13 | 8 - 25 mg/dL | EXTERNAL | | | | | | LAB | | + + + + + + | Creatinine | 1.2 | 0.70 - 1.30 | EXTERNAL | | | | | mg/dL | LAB | | + + + + + + | BUN/Creatin | 11 | | EXTERNAL | | | ine Ratio | | | LAB | | + + + + + + | Calcium | 8.1 (L) | 8.5 - 10.5 | EXTERNAL | | | | | mg/dL | LAB | | + + + + + + | Estimated | >60Comment: GFR <60: | mL/min/1.73m2 | EXTERNAL | | | GFR | CHRONIC KIDNEY DISEASE, | | LAB | | | | IF FOUND OVER A 3 MONTH | | | | | | PERIOD.GFR <15: KIDNEY | | | | | | FAILURE.FOR | | | | | | AMERICANS, MULTIPLY THE | | | | | | CALCULATED GFR BY | | | | | | 1.210.Testing performed | | | | | | at [facility], [address] | | | | | | [address], | | | | | | [place] [address] | | | | + + + + + + + + | Specimen | + + | Blood specimen | | (specimen) | + + + +---------+ + + | Performing | Address | City/State/Zipcode | Phone Number | | Organization | | | | + +---------+ + + | EXTERNAL LAB | | | | + +---------+ + + POC Glucose (03/10/2018 3:51 AM PDT) + + + + + + | Component | Value | Ref Range | Performed | Pathologist | | | | | At | Signature | + + + + + + | Glucose, | 142 (H)Comment: Testing | 65 - 99 mg/dL | EXTERNAL | | | Fingerstick | performed at [facility];[address] | | LAB | | | | [address];[place], [place] | | | | | | [address] | | | | + + + + + + + + | Specimen | + + | | + + + +---------+ + + | Performing | Address | City/State/Zipcode | Phone Number | | Organization | | | | + +---------+ + + | EXTERNAL LAB | | | | + +---------+ + + POC Glucose (03/10/2018 2:34 AM PDT) + + + + + + | Component | Value | Ref Range | Performed | Pathologist | | | | | At | Signature | + + + + + + | Glucose, | 217 (H)Comment: Testing | 65 - 99 mg/dL | EXTERNAL | | | Fingerstick | performed at [facility];[address] | | LAB | | | | [address];[place] | | | | | | [address] | | | | + + + + + + + + | Specimen | + + | | + + + +---------+ + + | Performing | Address | City/State/Zipcode | Phone Number | | Organization | | | | + +---------+ + + | EXTERNAL LAB | | | | + +---------+ + + POC Glucose (03/10/2018 1:22 AM PDT) + + + + + + | Component | Value | Ref Range | Performed | Pathologist | | | | | At | Signature | + + + + + + | Glucose, | 201 (H)Comment: Testing | 65 - 99 mg/dL | EXTERNAL | | | Fingerstick | performed at [facility];[address] | | LAB | | | | [address];[place], [place] | | | | | | [address] | | | | + + + + + + + + | Specimen | + + | | + + + +---------+ + + | Performing | Address | City/State/Zipcode | Phone Number | | Organization | | | | + +---------+ + + | EXTERNAL LAB | | | | + +---------+ + + POC Glucose (03/10/2018 12:16 AM PDT) + + + + + + | Component | Value | Ref Range | Performed | Pathologist | | | | | At | Signature | + + + + + + | Glucose, | 189 (H)Comment: Testing | 65 - 99 mg/dL | EXTERNAL | | | Fingerstick | performed at [facility];[address] | | LAB | | | | [address];[place] | | | | | | [address] | | | | + + + + + + + + | Specimen | + + | | + + + +---------+ + + | Performing | Address | City/State/Zipcode | Phone Number | | Organization | | | | + +---------+ + + | EXTERNAL LAB | | | | + +---------+ + + POC Glucose (03/09/2018 11:12 PM PDT) + + + + + + | Component | Value | Ref Range | Performed | Pathologist | | | | | At | Signature | + + + + + + | Glucose, | 176 (H)Comment: Testing | 65 - 99 mg/dL | EXTERNAL | | | Fingerstick | performed at [facility];[address] | | LAB | | | | [address];[place] | | | | | | [address] | | | | + + + + + + + + | Specimen | + + | | + + + +---------+ + + | Performing | Address | City/State/Zipcode | Phone Number | | Organization | | | | + +---------+ + + | EXTERNAL LAB | | | | + +---------+ + + POC Glucose (03/09/2018 10:06 PM PDT) + + + + + + | Component | Value | Ref Range | Performed | Pathologist | | | | | At | Signature | + + + + + + | Glucose, | 154 (H)Comment: Testing | 65 - 99 mg/dL | EXTERNAL | | | Fingerstick | performed at [facility];[address] | | LAB | | | | [address];[place] | | | | | | [address] | | | | + + + + + + + + | Specimen | + + | | + + + +---------+ + + | Performing | Address | City/State/Zipcode | Phone Number | | Organization | | | | + +---------+ + + | EXTERNAL LAB | | | | + +---------+ + + POC Glucose (03/09/2018 9:01 PM PDT) + + + + + + | Component | Value | Ref Range | Performed | Pathologist | | | | | At | Signature | + + + + + + | Glucose, | 171 (H)Comment: Testing | 65 - 99 mg/dL | EXTERNAL | | | Fingerstick | performed at [facility];[address] | | LAB | | | | [address];[place] | | | | | | [address] | | | | + + + + + + + + | Specimen | + + | | + + + +---------+ + + | Performing | Address | City/State/Zipcode | Phone Number | | Organization | | | | + +---------+ + + | EXTERNAL LAB | | | | + +---------+ + + POC Glucose (03/09/2018 7:52 PM PDT) + + + + + + | Component | Value | Ref Range | Performed | Pathologist | | | | | At | Signature | + + + + + + | Glucose, | 197 (H)Comment: Testing | 65 - 99 mg/dL | EXTERNAL | | | Fingerstick | performed at [facility];[address] | | LAB | | | | [address];[place], [place] | | | | | | [address] | | | | + + + + + + + + | Specimen | + + | | + + + +---------+ + + | Performing | Address | City/State/Zipcode | Phone Number | | Organization | | | | + +---------+ + + | EXTERNAL LAB | | | | + +---------+ + + POC Glucose (03/09/2018 6:53 PM PDT) + + + + + + | Component | Value | Ref Range | Performed | Pathologist | | | | | At | Signature | + + + + + + | Glucose, | 251 (H)Comment: Testing | 65 - 99 mg/dL | EXTERNAL | | | Fingerstick | performed at [facility];[address] | | LAB | | | | [address];[place], [place] | | | | | | [address] | | | | + + + + + + + + | Specimen | + + | | + + + +---------+ + + | Performing | Address | City/State/Zipcode | Phone Number | | Organization | | | | + +---------+ + + | EXTERNAL LAB | | | | + +---------+ + + POC Glucose (03/09/2018 5:32 PM PDT) + + + + + + | Component | Value | Ref Range | Performed | Pathologist | | | | | At | Signature | + + + + + + | Glucose, | 337 (H)Comment: Testing | 65 - 99 mg/dL | EXTERNAL | | | Fingerstick | performed at [facility];[address] | | LAB | | | | [address];[place] | | | | | | [address] | | | | + + + + + + + + | Specimen | + + | | + + + +---------+ + + | Performing | Address | City/State/Zipcode | Phone Number | | Organization | | | | + +---------+ + + | EXTERNAL LAB | | | | + +---------+ + + POC Glucose (03/09/2018 3:56 PM PDT) + + + + + + | Component | Value | Ref Range | Performed | Pathologist | | | | | At | Signature | + + + + + + | Glucose, | 367 (H)Comment: Testing | 65 - 99 mg/dL | EXTERNAL | | | Fingerstick | performed at [facility];[address] | | LAB | | | | [address];[place] | | | | | | [address] | | | | + + + + + + + + | Specimen | + + | | + + + +---------+ + + | Performing | Address | City/State/Zipcode | Phone Number | | Organization | | | | + +---------+ + + | EXTERNAL LAB | | | | + +---------+ + + POC Glucose (03/09/2018 2:32 PM PDT) + + + + + + | Component | Value | Ref Range | Performed | Pathologist | | | | | At | Signature | + + + + + + | Glucose, | 259 (H)Comment: Testing | 65 - 99 mg/dL | EXTERNAL | | | Fingerstick | performed at [facility];[address] | | LAB | | | | [address];[place] | | | | | | [address] | | | | + + + + + + + + | Specimen | + + | | + + + +---------+ + + | Performing | Address | City/State/Zipcode | Phone Number | | Organization | | | | + +---------+ + + | EXTERNAL LAB | | | | + +---------+ + + POC Glucose (03/09/2018 1:24 PM PDT) + + + + + + | Component | Value | Ref Range | Performed | Pathologist | | | | | At | Signature | + + + + + + | Glucose, | 255 (H)Comment: Testing | 65 - 99 mg/dL | EXTERNAL | | | Fingerstick | performed at [facility];[address] | | LAB | | | | [address];[place] | | | | | | [address] | | | | + + + + + + + + | Specimen | + + | | + + + +---------+ + + | Performing | Address | City/State/Zipcode | Phone Number | | Organization | | | | + +---------+ + + | EXTERNAL LAB | | | | + +---------+ + + POC Glucose (03/09/2018 12:11 PM PDT) + + + + + + | Component | Value | Ref Range | Performed | Pathologist | | | | | At | Signature | + + + + + + | Glucose, | 363 (H)Comment: Testing | 65 - 99 mg/dL | EXTERNAL | | | Fingerstick | performed at [facility];[address] | | LAB | | | | [address];[place] | | | | | | [address] | | | | + + + + + + + + | Specimen | + + | | + + + +---------+ + + | Performing | Address | City/State/Zipcode | Phone Number | | Organization | | | | + +---------+ + + | EXTERNAL LAB | | | | + +---------+ + + Glucose, Random (03/09/2018 10:43 AM PDT) + + + + + + | Component | Value | Ref Range | Performed | Pathologist | | | | | At | Signature | + + + + + + | Glucose | 386 (H)Comment: Testing | 65 - 99 mg/dL | EXTERNAL | | | | performed at [facility] | | LAB | | | | [address];[place] | | | | | | [address] | | | | + + + + + + + + | Specimen | + + | | + + + +---------+ + + | Performing | Address | City/State/Zipcode | Phone Number | | Organization | | | | + +---------+ + + | EXTERNAL LAB | | | | + +---------+ + + POC Glucose (03/09/2018 10:21 AM PDT) + + + + + + | Component | Value | Ref Range | Performed | Pathologist | | | | | At | Signature | + + + + + + | Glucose, | >400 (H)Comment: Testing | 65 - 99 mg/dL | EXTERNAL | | | Fingerstick | performed at [facility];[address] | | LAB | | | | [address];[place], [place] | | | | | | [address] | | | | + + + + + + + + | Specimen | + + | | + + + +---------+ + + | Performing | Address | City/State/Zipcode | Phone Number | | Organization | | | | + +---------+ + + | EXTERNAL LAB | | | | + +---------+ + + Magnesium (03/09/2018 8:00 AM PDT) + + + + + + | Component | Value | Ref Range | Performed | Pathologist | | | | | At | Signature | + + + + + + | Magnesium | 1.6 (L)Comment: Testing | 1.7 - 2.4 mg/dL | EXTERNAL | | | | performed at [facility] | | LAB | | | | [address];[place], [place] | | | | | | [address] | | | | + + + + + + + + | Specimen | + + | Blood specimen | | (specimen) | + + + +---------+ + + | Performing | Address | City/State/Zipcode | Phone Number | | Organization | | | | + +---------+ + + | EXTERNAL LAB | | | | + +---------+ + + Basic Metabolic Panel (03/09/2018 8:00 AM PDT) + + + + + + | Component | Value | Ref Range | Performed | Pathologist | | | | | At | Signature | + + + + + + | Na | 134 (L) | 135 - 145 | EXTERNAL | | | | | mmol/L | LAB | | + + + + + + | K | 3.3 (L) | 3.5 - 4.9 | EXTERNAL | | | | | mmol/L | LAB | | + + + + + + | Cl | 101 | 99 - 109 mmol/L | EXTERNAL | | | | | | LAB | | + + + + + + | CO2 | 23 | 23 - 32 mmol/L | EXTERNAL | | | | | | LAB | | + + + + + + | Anion Gap | 13 | 5 - 20 mmol/L | EXTERNAL | | | | | | LAB | | + + + + + + | Glucose, | 325 (H) | 65 - 99 mg/dL | EXTERNAL | | | Fasting | | | LAB | | + + + + + + | BUN | 17 | 8 - 25 mg/dL | EXTERNAL | | | | | | LAB | | + + + + + + | Creatinine | 1.3 | 0.70 - 1.30 | EXTERNAL | | | | | mg/dL | LAB | | + + + + + + | BUN/Creatin | 13 | | EXTERNAL | | | ine Ratio | | | LAB | | + + + + + + | Calcium | 8.5 | 8.5 - 10.5 | EXTERNAL | | | | | mg/dL | LAB | | + + + + + + | Estimated | >60Comment: GFR <60: | mL/min/1.73m2 | EXTERNAL | | | GFR | CHRONIC KIDNEY DISEASE, | | LAB | | | | IF FOUND OVER A 3 MONTH | | | | | | PERIOD.GFR <15: KIDNEY | | | | | | FAILURE.FOR | | | | | | AMERICANS, MULTIPLY THE | | | | | | CALCULATED GFR BY | | | | | | 1.210.Testing performed | | | | | | at [facility];[address];[place] [address] | | | | + + + + + + + + | Specimen | + + | Blood specimen | | (specimen) | + + + +---------+ + + | Performing | Address | City/State/Zipcode | Phone Number | | Organization | | | | + +---------+ + + | EXTERNAL LAB | | | | + +---------+ + + Urinalysis, Microscopic Only (03/09/2018 6:00 AM PDT) + + + + + + | Component | Value | Ref Range | Performed | Pathologist | | | | | At | Signature | + + + + + + | WBC, UA | 6-10Comment: | 0 - 5 /hpf | EXTERNAL | | | | | | LAB | | + + + + + + | RBC, UA | 0-2 | 0 - 2 /hpf | EXTERNAL | | | | | | LAB | | + + + + + + | Epithelial | 16-25 | /lpf | EXTERNAL | | | Cells | | | LAB | | + + + + + + | Bacteria, | NONE SEEN | | EXTERNAL | | | UA | | | LAB | | + + + + + + | Mucus, | 1+ | | EXTERNAL | | | Urine | | | LAB | | + + + + + + | Crystals | SEE BELOWComment: 1+ | /hpf | EXTERNAL | | | | AMORPHOUS | | LAB | | | | CRYSTALSTesting | | | | | | performed at [facility], [address] | | | | | | [address], | | | | | | [place] [address] | | | | + + + + + + + + | Specimen | + + | | + + + +---------+ + + | Performing | Address | City/State/Zipcode | Phone Number | | Organization | | | | + +---------+ + + | EXTERNAL LAB | | | | + +---------+ + + Urinalysis with Microscopic if Indicated (03/09/2018 6:00 AM PDT) + + + + + + | Component | Value | Ref Range | Performed | Pathologist | | | | | At | Signature | + + + + + + | Color | YELLOW | | EXTERNAL | | | | | | LAB | | + + + + + + | Clarity | TURBID | | EXTERNAL | | | | | | LAB | | + + + + + + | Specific | 1.027 | 1.002 - 1.030 | EXTERNAL | | | [place], | | | LAB | | | Urine | | | | | + + + + + + | Leukocyte | NEGATIVEComment: | | EXTERNAL | | | Esterase, | | | LAB | | | Urine | | | | | + + + + + + | Nitrite, | NEGATIVE | | EXTERNAL | | | Urine | | | LAB | | + + + + + + | Urobilinoge | 2.0 (H) | mg/dL | EXTERNAL | | | n, Urine | | | LAB | | + + + + + + | Protein, | 100 (A) | mg/dL | EXTERNAL | | | Urine | | | LAB | | + + + + + + | pH, Urine | 5.0 | 5.0 - 8.0 | EXTERNAL | | | | | | LAB | | + + + + + + | Blood, | NEGATIVE | | EXTERNAL | | | Urine | | | LAB | | + + + + + + | Ketones | NEGATIVE | mg/dL | EXTERNAL | | | | | | LAB | | + + + + + + | Bilirubin, | NEGATIVE | | EXTERNAL | | | Urine | | | LAB | | + + + + + + | Glucose, | >500 (A)Comment: Testing | mg/dL | EXTERNAL | | | Urine | performed at [facility], [facility] | | LAB | | | | [address], | | | | | | [place] [address] | | | | + + + + + + + + | Specimen | + + | Urine specimen | | (specimen) | + + + +---------+ + + | Performing | Address | City/State/Zipcode | Phone Number | | Organization | | | | + +---------+ + + | EXTERNAL LAB | | | | + +---------+ + + POC Glucose (03/09/2018 5:55 AM PDT) + + + + + + | Component | Value | Ref Range | Performed | Pathologist | | | | | At | Signature | + + + + + + | Glucose, | 241 (H)Comment: Testing | 65 - 99 mg/dL | EXTERNAL | | | Fingerstick | performed at [facility] [place] | | LAB | | | | [address];[place] | | | | | | [address] | | | | + + + + + + + + | Specimen | + + | | + + + +---------+ + + | Performing | Address | City/State/Zipcode | Phone Number | | Organization | | | | + +---------+ + + | EXTERNAL LAB | | | | + +---------+ + + XR Chest 1 Vw (03/09/2018 3:12 AM PDT) + + | Specimen | + + | | + + + + + | Impressions | Performed At | + + + | No evidence of pneumonia. [facility] Electronically signed by | | | Chauncey Coreas MD on Mar 09 2018 4:05AM Referring Provider Line: | | | [phone] ID: [id number] | | + + + + + + | Narrative | Performed At | + + + | EXAM: CHEST RADIOGRAPHY EXAM DATE: 03/09/2018 03:14 AM. | | | CLINICAL HISTORY: Fever. COMPARISON: None. TECHNIQUE: 1 view. | | | FINDINGS: Lungs/Pleura: No focal opacities evident. No pleural | | | effusion. No pneumothorax. Mediastinum: Within exam limitations, | | | the cardiomediastinal contour is normal. Other: Previous cervical | | | surgery. | | + + + + + | Procedure Note | + + | Josh Quinteros Conversion - 06/18/2019 7:33 AM PDT EXAM:CHEST RADIOGRAPHY EXAM DATE: | | 03/09/2018 03:14 AM. CLINICAL HISTORY: Fever. COMPARISON: None. TECHNIQUE: 1 view. | | FINDINGS:Lungs/Pleura: No focal opacities evident. No pleural effusion. No pneumothorax. | | Mediastinum: Within exam limitations, the cardiomediastinal contour is normal. Other: | | Previous cervical surgery. IMPRESSION: No evidence of pneumonia. [facility] Electronically | | signed by Chauncey Coreas MD on Mar 09 2018 4:05AM Referring Provider Line: | | [phone] ID: [id number] | |COMPARISON: None. | | | |TECHNIQUE: 1 view. | | | |FINDINGS: | |Lungs/Pleura: No focal opacities evident. No pleural effusion. No pneumothorax. | | | |Mediastinum: Within exam limitations, the cardiomediastinal contour is normal. | | | |Other: Previous cervical surgery. | | | |IMPRESSION: | |No evidence of pneumonia. | | | |[facility] | | | | Electronically signed by Chauncey Coreas MD on Mar 09 2018 4:05AM Referring Provider Francisca e: [phone] ID: [id number] | + + Culture, Blood (03/09/2018 2:59 AM PDT) + + | Specimen | + + | Blood specimen | | (specimen) | + + + + + | Narrative | Performed At | + + + | Specimen Description BLOOD SPECIAL | EXTERNAL LAB | | REQUESTS LAC CULTURE | | | NO GROWTH 6 DAYS | | + + + + +---------+ + + | Performing | Address | City/State/Zipcode | Phone Number | | Organization | | | | + +---------+ + + | EXTERNAL LAB | | | | + +---------+ + + Culture, Blood, 2nd Specimen (03/09/2018 2:49 AM PDT) + + | Specimen | + + | Blood specimen | | (specimen) | + + + + + | Narrative | Performed At | + + + | Specimen Description BLOOD SPECIAL | EXTERNAL LAB | | REQUESTS R HAND CULTURE | | | NO GROWTH 6 DAYS | | + + + + +---------+ + + | Performing | Address | City/State/Zipcode | Phone Number | | Organization | | | | + +---------+ + + | EXTERNAL LAB | | | | + +---------+ + + Lactic Acid (03/09/2018 2:41 AM PDT) + + + + + + | Component | Value | Ref Range | Performed | Pathologist | | | | | At | Signature | + + + + + + | Lactate | 1.5Comment: Testing | 0.4 - 2.0 | EXTERNAL | | | | performed at [facility];[address] | mmol/L | LAB | | | | [address] [facility];[place] | | | | | | [address] | | | | + + + + + + + + | Specimen | + + | | + + + +---------+ + + | Performing | Address | City/State/Zipcode | Phone Number | | Organization | | | | + +---------+ + + | EXTERNAL LAB | | | | + +---------+ + + MRSA NAAT (03/09/2018 2:33 AM PDT) + + | Specimen | + + | | + + + + + | Narrative | Performed At | + + + | SOURCE NARES(NOSE) MRSA | EXTERNAL LAB | | PCR NEGATIVE Testing | | | performed at [facility];[address] [place] [address];[place] [address] | | + + + + +---------+ + + | Performing | Address | City/State/Zipcode | Phone Number | | Organization | | | | + +---------+ + + | EXTERNAL LAB | | | | + +---------+ + + POC Glucose (03/09/2018 2:25 AM PDT) + + + + + + | Component | Value | Ref Range | Performed | Pathologist | | | | | At | Signature | + + + + + + | Glucose, | 256 (H)Comment: Testing | 65 - 99 mg/dL | EXTERNAL | | | Fingerstick | performed at [facility];[address] | | LAB | | | | [address];[place], [place] | | | | | | [address] | | | | + + + + + + + + | Specimen | + + | | + + + +---------+ + + | Performing | Address | City/State/Zipcode | Phone Number | | Organization | | | | + +---------+ + + | EXTERNAL LAB | | | | + +---------+ + + POC Glucose (03/09/2018 12:15 AM PDT) + + + + + + | Component | Value | Ref Range | Performed | Pathologist | | | | | At | Signature | + + + + + + | Glucose, | 254 (H)Comment: Testing | 65 - 99 mg/dL | EXTERNAL | | | Fingerstick | performed at [facility];[address] | | LAB | | | | [address];[place], [place] | | | | | | [address] | | | | + + + + + + + + | Specimen | + + | | + + + +---------+ + + | Performing | Address | City/State/Zipcode | Phone Number | | Organization | | | | + +---------+ + + | EXTERNAL LAB | | | | + +---------+ + + POC Glucose (03/08/2018 9:44 PM PDT) + + + + + + | Component | Value | Ref Range | Performed | Pathologist | | | | | At | Signature | + + + + + + | Glucose, | 308 (H)Comment: Testing | 65 - 99 mg/dL | EXTERNAL | | | Fingerstick | performed at [facility];[address] | | LAB | | | | [address];[place], [place] | | | | | | [address] | | | | + + + + + + + + | Specimen | + + | | + + + +---------+ + + | Performing | Address | City/State/Zipcode | Phone Number | | Organization | | | | + +---------+ + + | EXTERNAL LAB | | | | + +---------+ + + POC Glucose (03/08/2018 7:45 PM PDT) + + + + + + | Component | Value | Ref Range | Performed | Pathologist | | | | | At | Signature | + + + + + + | Glucose, | 335 (H)Comment: Testing | 65 - 99 mg/dL | EXTERNAL | | | Fingerstick | performed at [facility];[address] | | LAB | | | | [address];[place] | | | | | | [address] | | | | + + + + + + + + | Specimen | + + | | + + + +---------+ + + | Performing | Address | City/State/Zipcode | Phone Number | | Organization | | | | + +---------+ + + | EXTERNAL LAB | | | | + +---------+ + + POC Glucose (03/08/2018 4:20 PM PDT) + + + + + + | Component | Value | Ref Range | Performed | Pathologist | | | | | At | Signature | + + + + + + | Glucose, | 228 (H)Comment: Testing | 65 - 99 mg/dL | EXTERNAL | | | Fingerstick | performed at [facility];[address] | | LAB | | | | [address];[place], [place] | | | | | | [address] | | | | + + + + + + + + | Specimen | + + | | + + + +---------+ + + | Performing | Address | City/State/Zipcode | Phone Number | | Organization | | | | + +---------+ + + | EXTERNAL LAB | | | | + +---------+ + + POC Glucose (03/08/2018 12:33 PM PDT) + + + + + + | Component | Value | Ref Range | Performed | Pathologist | | | | | At | Signature | + + + + + + | Glucose, | 80Comment: Testing | 65 - 99 mg/dL | EXTERNAL | | | Fingerstick | performed at [facility];[address] | | LAB | | | | [address];[place] | | | | | | [address] | | | | + + + + + + + + | Specimen | + + | | + + + +---------+ + + | Performing | Address | City/State/Zipcode | Phone Number | | Organization | | | | + +---------+ + + | EXTERNAL LAB | | | | + +---------+ + + POC Glucose (03/08/2018 11:37 AM PDT) + + + + + + | Component | Value | Ref Range | Performed | Pathologist | | | | | At | Signature | + + + + + + | Glucose, | 155 (H)Comment: Testing | 65 - 99 mg/dL | EXTERNAL | | | Fingerstick | performed at [facility];[address] | | LAB | | | | [address];[place], [place] | | | | | | [address] | | | | + + + + + + + + | Specimen | + + | | + + + +---------+ + + | Performing | Address | City/State/Zipcode | Phone Number | | Organization | | | | + +---------+ + + | EXTERNAL LAB | | | | + +---------+ + + POC Glucose (03/08/2018 10:23 AM PDT) + + + + + + | Component | Value | Ref Range | Performed | Pathologist | | | | | At | Signature | + + + + + + | Glucose, | 259 (H)Comment: Testing | 65 - 99 mg/dL | EXTERNAL | | | Fingerstick | performed at [facility];[address] | | LAB | | | | [address];[place] | | | | | | [address] | | | | + + + + + + + + | Specimen | + + | | + + + +---------+ + + | Performing | Address | City/State/Zipcode | Phone Number | | Organization | | | | + +---------+ + + | EXTERNAL LAB | | | | + +---------+ + + POC Glucose (03/08/2018 9:15 AM PDT) + + + + + + | Component | Value | Ref Range | Performed | Pathologist | | | | | At | Signature | + + + + + + | Glucose, | 213 (H)Comment: Testing | 65 - 99 mg/dL | EXTERNAL | | | Fingerstick | performed at [facility];[address] | | LAB | | | | [address];[place] | | | | | | [address] | | | | + + + + + + + + | Specimen | + + | | + + + +---------+ + + | Performing | Address | City/State/Zipcode | Phone Number | | Organization | | | | + +---------+ + + | EXTERNAL LAB | | | | + +---------+ + + POC Glucose (03/08/2018 6:48 AM PDT) + + + + + + | Component | Value | Ref Range | Performed | Pathologist | | | | | At | Signature | + + + + + + | Glucose, | 104 (H)Comment: Testing | 65 - 99 mg/dL | EXTERNAL | | | Fingerstick | performed at [facility];[address] | | LAB | | | | [address];[place], [place] | | | | | | [address] | | | | + + + + + + + + | Specimen | + + | | + + + +---------+ + + | Performing | Address | City/State/Zipcode | Phone Number | | Organization | | | | + +---------+ + + | EXTERNAL LAB | | | | + +---------+ + + POC Glucose (03/08/2018 5:09 AM PDT) + + + + + + | Component | Value | Ref Range | Performed | Pathologist | | | | | At | Signature | + + + + + + | Glucose, | 107 (H)Comment: Testing | 65 - 99 mg/dL | EXTERNAL | | | Fingerstick | performed at [facility];[address] | | LAB | | | | [address];[place] | | | | | | [address] | | | | + + + + + + + + | Specimen | + + | | + + + +---------+ + + | Performing | Address | City/State/Zipcode | Phone Number | | Organization | | | | + +---------+ + + | EXTERNAL LAB | | | | + +---------+ + + POC Glucose (03/08/2018 4:46 AM PDT) + + + + + + | Component | Value | Ref Range | Performed | Pathologist | | | | | At | Signature | + + + + + + | Glucose, | 116 (H)Comment: Testing | 65 - 99 mg/dL | EXTERNAL | | | Fingerstick | performed at [facility];[address] | | LAB | | | | [address];[place], [place] | | | | | | [address] | | | | + + + + + + + + | Specimen | + + | | + + + +---------+ + + | Performing | Address | City/State/Zipcode | Phone Number | | Organization | | | | + +---------+ + + | EXTERNAL LAB | | | | + +---------+ + + External Lab: CBC (03/08/2018 4:08 AM PDT) + + + + + + | Component | Value | Ref Range | Performed | Pathologist | | | | | At | Signature | + + + + + + | WBC | 8.55 | 3.80 - 11.00 | EXTERNAL | | | | | K/uL | LAB | | + + + + + + | Red Blood | 4.22 | 4.20 - 5.70 | EXTERNAL | | | Cells | | M/uL | LAB | | | Counted | | | | | + + + + + + | Hemoglobin | 13.0 (L) | 13.2 - 17.0 | EXTERNAL | | | | | g/dL | LAB | | + + + + + + | Hematocrit, | 37.1 (L) | 39.0 - 50.0 % | EXTERNAL | | | POC | | | LAB | | + + + + + + | MCV | 87.9 | 80.0 - 100.0 fl | EXTERNAL | | | | | | LAB | | + + + + + + | MCH | 30.8 | 27.0 - 34.0 pg | EXTERNAL | | | | | | LAB | | + + + + + + | MCHC | 35.1 | 32.0 - 35.5 | EXTERNAL | | | | | g/dL | LAB | | + + + + + + | RDW-CV | 42.4 | 37 - 53 fl | EXTERNAL | | | | | | LAB | | + + + + + + | Platelet | 292 | 150 - 400 K/uL | EXTERNAL | | | Count | | | LAB | | | Plasma | | | | | + + + + + + | MPV | 9.0 | fl | EXTERNAL | | | | | | LAB | | + + + + + + | Differentia | AUTOMATED | | EXTERNAL | | | l Type | | | LAB | | + + + + + + | % Segmented | 65.86 | % | EXTERNAL | | | | | | LAB | | | Neutrophils | | | | | + + + + + + | % | 22.24 | % | EXTERNAL | | | Lymphocytes | | | LAB | | + + + + + + | % Monocytes | 8.47 | % | EXTERNAL | | | | | | LAB | | + + + + + + | % | 2.54 | % | EXTERNAL | | | Eosinophils | | | LAB | | + + + + + + | % Basophils | 0.89 | % | EXTERNAL | | | | | | LAB | | + + + + + + | Absolute | 5.63 | 1.90 - 7.40 | EXTERNAL | | | Segmented | | K/uL | LAB | | | Neutrophils | | | | | + + + + + + | Absolute | 1.90 | 1.00 - 3.90 | EXTERNAL | | | Lymphocytes | | K/uL | LAB | | + + + + + + | Absolute | 0.72 | 0.00 - 0.80 | EXTERNAL | | | Monocytes | | K/uL | LAB | | + + + + + + | Absolute | 0.22 | 0.00 - 0.50 | EXTERNAL | | | Eosinophils | | K/uL | LAB | | + + + + + + | Absolute | 0.08Comment: Testing | 0.00 - 0.10 | EXTERNAL | | | Basophils | performed at [facility], [address] | K/uL | LAB | | | | [address], | | | | | | [place] [address] | | | | + + + + + + + + | Specimen | + + | Blood specimen | | (specimen) | + + + +---------+ + + | Performing | Address | City/State/Zipcode | Phone Number | | Organization | | | | + +---------+ + + | EXTERNAL LAB | | | | + +---------+ + + Magnesium (03/08/2018 4:08 AM PDT) + + + + + + | Component | Value | Ref Range | Performed | Pathologist | | | | | At | Signature | + + + + + + | Magnesium | 1.9Comment: Testing | 1.7 - 2.4 mg/dL | EXTERNAL | | | | performed at [facility], [address] | | LAB | | | | [address], | | | | | | [place] [address] | | | | + + + + + + + + | Specimen | + + | Blood specimen | | (specimen) | + + + +---------+ + + | Performing | Address | City/State/Zipcode | Phone Number | | Organization | | | | + +---------+ + + | EXTERNAL LAB | | | | + +---------+ + + Hemoglobin A1C (03/08/2018 4:08 AM PDT) + + + + + + | Component | Value | Ref Range | Performed | Pathologist | | | | | At | Signature | + + + + + + | Hemoglobin | 15.0 (H)Comment: The | 4.0 - 6.0 % | EXTERNAL | | | A1c | [place] [employer] | | LAB | | | | Association considers a | | | | | | hemoglobin A1c result of | | | | | | <7.0% to be the goal of | | | | | | diabetic therapy. | | | | | | When results are | | | | | | consistently >8.0%, the | | | | | | ADA suggests | | | | | | reevaluation of the | | | | | | treatment regimen. The | | | | | | testing method used is | | | | | | certified traceable to | | | | | | the Diabetes Control and | | | | | | Complications Trial | | | | | | reference method.RESULT | | | | | | VERIFIED | | | | + + + + + + | Glycohemogl | 384Comment: The ADA | mg/dL | EXTERNAL | | | obin | considers an eAG result | | LAB | | | (GHb),Total | of LT 154 mg/dL to be | | | | | | the goal of diabetic | | | | | | therapy. Estimated | | | | | | Average Glucose | | | | | | calculated from | | | | | | hemoglobin A1c by use of | | | | | | the ADA recommended | | | | | | formula.Testing | | | | | | performed at [facility], [address] | | | | | | [address], | | | | | | [place] [address] | | | | + + + + + + + + | Specimen | + + | Blood specimen | | (specimen) | + + + +---------+ + + | Performing | Address | City/State/Zipcode | Phone Number | | Organization | | | | + +---------+ + + | EXTERNAL LAB | | | | + +---------+ + + Basic Metabolic Panel (03/08/2018 4:08 AM PDT) + + + + + + | Component | Value | Ref Range | Performed | Pathologist | | | | | At | Signature | + + + + + + | Na | 138 | 135 - 145 | EXTERNAL | | | | | mmol/L | LAB | | + + + + + + | K | 3.3 (L) | 3.5 - 4.9 | EXTERNAL | | | | | mmol/L | LAB | | + + + + + + | Cl | 104 | 99 - 109 mmol/L | EXTERNAL | | | | | | LAB | | + + + + + + | CO2 | 27 | 23 - 32 mmol/L | EXTERNAL | | | | | | LAB | | + + + + + + | Anion Gap | 10 | 5 - 20 mmol/L | EXTERNAL | | | | | | LAB | | + + + + + + | Glucose, | 123 (H) | 65 - 99 mg/dL | EXTERNAL | | | Fasting | | | LAB | | + + + + + + | BUN | 17 | 8 - 25 mg/dL | EXTERNAL | | | | | | LAB | | + + + + + + | Creatinine | 0.9 | 0.70 - 1.30 | EXTERNAL | | | | | mg/dL | LAB | | + + + + + + | BUN/Creatin | 19 | | EXTERNAL | | | ine Ratio | | | LAB | | + + + + + + | Calcium | 8.8 | 8.5 - 10.5 | EXTERNAL | | | | | mg/dL | LAB | | + + + + + + | Estimated | >60Comment: GFR <60: | mL/min/1.73m2 | EXTERNAL | | | GFR | CHRONIC KIDNEY DISEASE, | | LAB | | | | IF FOUND OVER A 3 MONTH | | | | | | PERIOD.GFR <15: KIDNEY | | | | | | FAILURE.FOR | | | | | | AMERICANS, MULTIPLY THE | | | | | | CALCULATED GFR BY | | | | | | 1.210.Testing performed | | | | | | at [facility], [address] | | | | | | [facility], | | | | | | [place] [address] | | | | + + + + + + + + | Specimen | + + | Blood specimen | | (specimen) | + + + +---------+ + + | Performing | Address | City/State/Zipcode | Phone Number | | Organization | | | | + +---------+ + + | EXTERNAL LAB | | | | + +---------+ + + POC Glucose (03/08/2018 2:40 AM PDT) + + + + + + | Component | Value | Ref Range | Performed | Pathologist | | | | | At | Signature | + + + + + + | Glucose, | 133 (H)Comment: Testing | 65 - 99 mg/dL | EXTERNAL | | | Fingerstick | performed at [facility];[address] | | LAB | | | | [address];[place] | | | | | | [address] | | | | + + + + + + + + | Specimen | + + | | + + + +---------+ + + | Performing | Address | City/State/Zipcode | Phone Number | | Organization | | | | + +---------+ + + | EXTERNAL LAB | | | | + +---------+ + + POC Glucose (03/08/2018 1:29 AM PDT) + + + + + + | Component | Value | Ref Range | Performed | Pathologist | | | | | At | Signature | + + + + + + | Glucose, | 168 (H)Comment: Testing | 65 - 99 mg/dL | EXTERNAL | | | Fingerstick | performed at [facility];[address] | | LAB | | | | [address];[place], [place] | | | | | | [address] | | | | + + + + + + + + | Specimen | + + | | + + + +---------+ + + | Performing | Address | City/State/Zipcode | Phone Number | | Organization | | | | + +---------+ + + | EXTERNAL LAB | | | | + +---------+ + + POC Glucose (03/08/2018 12:10 AM PDT) + + + + + + | Component | Value | Ref Range | Performed | Pathologist | | | | | At | Signature | + + + + + + | Glucose, | 119 (H)Comment: Testing | 65 - 99 mg/dL | EXTERNAL | | | Fingerstick | performed at [facility];[address] | | LAB | | | | [address];[place] | | | | | | [address] | | | | + + + + + + + + | Specimen | + + | | + + + +---------+ + + | Performing | Address | City/State/Zipcode | Phone Number | | Organization | | | | + +---------+ + + | EXTERNAL LAB | | | | + +---------+ + + POC Glucose (03/07/2018 10:49 PM PDT) + + + + + + | Component | Value | Ref Range | Performed | Pathologist | | | | | At | Signature | + + + + + + | Glucose, | 109 (H)Comment: Testing | 65 - 99 mg/dL | EXTERNAL | | | Fingerstick | performed at [facility];[address] | | LAB | | | | [address];[place] | | | | | | [address] | | | | + + + + + + + + | Specimen | + + | | + + + +---------+ + + | Performing | Address | City/State/Zipcode | Phone Number | | Organization | | | | + +---------+ + + | EXTERNAL LAB | | | | + +---------+ + + POC Glucose (03/07/2018 9:26 PM PDT) + + + + + + | Component | Value | Ref Range | Performed | Pathologist | | | | | At | Signature | + + + + + + | Glucose, | 159 (H)Comment: Testing | 65 - 99 mg/dL | EXTERNAL | | | Fingerstick | performed at [facility];[address] | | LAB | | | | [address];[place] | | | | | | [address] | | | | + + + + + + + + | Specimen | + + | | + + + +---------+ + + | Performing | Address | City/State/Zipcode | Phone Number | | Organization | | | | + +---------+ + + | EXTERNAL LAB | | | | + +---------+ + + POC Glucose (03/07/2018 8:27 PM PDT) + + + + + + | Component | Value | Ref Range | Performed | Pathologist | | | | | At | Signature | + + + + + + | Glucose, | 243 (H)Comment: Testing | 65 - 99 mg/dL | EXTERNAL | | | Fingerstick | performed at [facility];[address] | | LAB | | | | [address];[place], [place] | | | | | | [address] | | | | + + + + + + + + | Specimen | + + | | + + + +---------+ + + | Performing | Address | City/State/Zipcode | Phone Number | | Organization | | | | + +---------+ + + | EXTERNAL LAB | | | | + +---------+ + + POC Glucose (03/07/2018 7:50 PM PDT) + + + + + + | Component | Value | Ref Range | Performed | Pathologist | | | | | At | Signature | + + + + + + | Glucose, | 262 (H)Comment: Testing | 65 - 99 mg/dL | EXTERNAL | | | Fingerstick | performed at [facility];[address] | | LAB | | | | [address];[place], [place] | | | | | | [address] | | | | + + + + + + + + | Specimen | + + | | + + + +---------+ + + | Performing | Address | City/State/Zipcode | Phone Number | | Organization | | | | + +---------+ + + | EXTERNAL LAB | | | | + +---------+ + + POC Glucose (03/07/2018 6:43 PM PDT) + + + + + + | Component | Value | Ref Range | Performed | Pathologist | | | | | At | Signature | + + + + + + | Glucose, | 163 (H)Comment: Testing | 65 - 99 mg/dL | EXTERNAL | | | Fingerstick | performed at [facility];[address] | | LAB | | | | [address];[place], [place] | | | | | | [address] | | | | + + + + + + + + | Specimen | + + | | + + + +---------+ + + | Performing | Address | City/State/Zipcode | Phone Number | | Organization | | | | + +---------+ + + | EXTERNAL LAB | | | | + +---------+ + + POC Glucose (03/07/2018 5:37 PM PDT) + + + + + + | Component | Value | Ref Range | Performed | Pathologist | | | | | At | Signature | + + + + + + | Glucose, | 196 (H)Comment: Testing | 65 - 99 mg/dL | EXTERNAL | | | Fingerstick | performed at [facility];[address] | | LAB | | | | [address];[place] | | | | | | [address] | | | | + + + + + + + + | Specimen | + + | | + + + +---------+ + + | Performing | Address | City/State/Zipcode | Phone Number | | Organization | | | | + +---------+ + + | EXTERNAL LAB | | | | + +---------+ + + POC Glucose (03/07/2018 4:26 PM PDT) + + + + + + | Component | Value | Ref Range | Performed | Pathologist | | | | | At | Signature | + + + + + + | Glucose, | 195 (H)Comment: Testing | 65 - 99 mg/dL | EXTERNAL | | | Fingerstick | performed at [facility];[address] | | LAB | | | | [address];[place] | | | | | | [address] | | | | + + + + + + + + | Specimen | + + | | + + + +---------+ + + | Performing | Address | City/State/Zipcode | Phone Number | | Organization | | | | + +---------+ + + | EXTERNAL LAB | | | | + +---------+ + + POC Glucose (03/07/2018 3:21 PM PDT) + + + + + + | Component | Value | Ref Range | Performed | Pathologist | | | | | At | Signature | + + + + + + | Glucose, | 168 (H)Comment: Testing | 65 - 99 mg/dL | EXTERNAL | | | Fingerstick | performed at [facility];[address] | | LAB | | | | [address];[place] | | | | | | [address] | | | | + + + + + + + + | Specimen | + + | | + + + +---------+ + + | Performing | Address | City/State/Zipcode | Phone Number | | Organization | | | | + +---------+ + + | EXTERNAL LAB | | | | + +---------+ + + POC Glucose (03/07/2018 1:53 PM PDT) + + + + + + | Component | Value | Ref Range | Performed | Pathologist | | | | | At | Signature | + + + + + + | Glucose, | 235 (H)Comment: Testing | 65 - 99 mg/dL | EXTERNAL | | | Fingerstick | performed at [facility];[address] | | LAB | | | | [address];[place] | | | | | | [address] | | | | + + + + + + + + | Specimen | + + | | + + + +---------+ + + | Performing | Address | City/State/Zipcode | Phone Number | | Organization | | | | + +---------+ + + | EXTERNAL LAB | | | | + +---------+ + + POC Glucose (03/07/2018 1:20 PM PDT) + + + + + + | Component | Value | Ref Range | Performed | Pathologist | | | | | At | Signature | + + + + + + | Glucose, | 271 (H)Comment: Testing | 65 - 99 mg/dL | EXTERNAL | | | Fingerstick | performed at [facility];[address] | | LAB | | | | [address];[place], [place] | | | | | | [address] | | | | + + + + + + + + | Specimen | + + | | + + + +---------+ + + | Performing | Address | City/State/Zipcode | Phone Number | | Organization | | | | + +---------+ + + | EXTERNAL LAB | | | | + +---------+ + + POC Glucose (03/07/2018 11:08 AM PDT) + + + + + + | Component | Value | Ref Range | Performed | Pathologist | | | | | At | Signature | + + + + + + | Glucose, | 375 (H)Comment: Testing | 65 - 99 mg/dL | EXTERNAL | | | Fingerstick | performed at [facility] [place] | | [address] | | | | [address];[place] | | | | | | [id number] | | | | + + + + + + + + | Specimen | + + | | + + + +---------+ + + | Performing | Address | City/State/Zipcode | Phone Number | | Organization | | | | + +---------+ + + | EXTERNAL LAB | | | | + +---------+ + + ECHO Complete w Contrast (03/07/2018 10:22 AM PDT) + + | Specimen | + + | | + + + + + | Impressions | Performed At | + + + | 1. This was a technically difficult study with suboptimal views | | | secondary to body habitus. 2. Overall left ventricular systolic | | | function is normal with, an EF between 55 - 60 %. 3. There is mild | | | concentric left ventricular hypertrophy. 4. No obvious clot | | | visualized 5. negative bubble study seen in slide 35 | | + + + + + + | Narrative | Performed At | + + + | Patient Name: MATTHIAS BURNS Date of : 1965 | | | Performing Physician: Sav Trotter MD, | | | FACC, FACP, FASNC | | | | | | INDICATIONS stroke CONCLUSIONS 1. This | | | was a technically difficult study with suboptimal views secondary to | | | body habitus. 2. Overall left ventricular systolic function is normal | | | with, an EF between 55 - 60 %. 3. There is mild concentric left | | | ventricular hypertrophy. 4. No obvious clot visualized 5. negative | | | bubble study seen in slide 35 FINDINGS -------- ECG rhythm: | | | Sinus rhythm. Study: A 2-dimensional transthoracic echocardiogram | | | with m-mode, spectral and color flow Doppler was perfomed. Study: | | | This was a technically difficult study with suboptimal views secondary | | | to body habitus. Left Ventricle: Overall left ventricular systolic | | | function is normal with, an EF between 55 - 60 %. Left Ventricle: The | | | left ventricle cavity size is normal. Left Ventricle: There is mild | | | concentric left ventricular hypertrophy. Left Ventricle: Poor tissue | | | doppler signal prevents accurate assessment of diastolic function. | | | Right Ventricle: The RV was not well visualized. Left Atrium: The | | | left atrium was not well visualized. Right Atrium: The right atrium | | | was not well visualized. Aortic Valve: The aortic valve was not well | | | visualized. Aortic Valve: There is no evidence of aortic | | | regurgitation. Aortic Valve: There is no evidence of aortic stenosis. | | | Mitral Valve: The mitral valve was not well visualized. Mitral | | | Valve: Mild mitral annular calcification present. Tricuspid Valve: | | | The tricuspid valve was not well visualized. Tricuspid Valve: The | | | poor TR signal prevents accurate estimation of pulmonary pressures. | | | Pulmonic Valve: The pulmonic valve was not well visualized. | | | Pericardium: There is no pericardial effusion. IVC/Hepatic Veins: The | | | IVC was not well visualized. Thrombus: No clot visualized Contrast: | | | Contrast study was performed with 2 iv injections of 8 ccs of | | | agitated normal saline, at rest, and with cough. Contrast: negative | | | bubble study seen in slide 35 MEASUREMENTS Ao | | | sinus: 3.[address] junct: 2.83 cm EDV(Teich): 94.48 ml | | | IVSd: 1.34 cm LVIDd: 4.54 cm LVPWd: 1.30 cm LVOT Diam: | | | 2.13 cm %FS: 28.75 % EF(Teich): 55.46 % ESV(Teich): 42.08 | | | ml IVSs: 1.29 cm LVIDs: 3.23 cm LVPWs: 1.49 cm SV(Teich): | | | 52.40 ml LVCI Dopp: 1.31 l/minm2 LVCO Dopp: 3.76 l/min | | | HR: 72.73 BPM LVOT maxP.53 mmHg LVOT meanP.68 mmHg | | | LVSI Dopp: 18.11 ml/m2 LVSV Dopp: 51.80 ml LVOT Vmax: 0.94 | | | m/s LVOT Vmean: 0.61 m/s LVOT VTI: 14.49 cm MCO: 391.05 | | | ms MV A Jeff: 0.75 m/s MV DecT: 151.45 ms MV E Jeff: 0.63 | | | m/s MV E/A Ratio: 0.77 E/E' Av.40 E' Av.06 m/s | | | E/E' Lat: 10.63 E/E' Sept: 10.19 E' Lat: 0.05 m/s E' Sept: | | | 0.06 m/s MV PHT: 59.32 ms MVA By PHT: 3.70 cm2 HR: | | | 74.01 BPM PV maxP.58 mmHg PV meanP.90 mmHg PV Vmax: | | | 0.94 m/s PV Vmean: 0.66 m/s PV VTI: 17.01 cm TV A Jeff: | | | 0.43 m/s TV Dec Pleasants: 2.48 m/s2 TV Dec Time: 211.42 ms TV E | | | Jeff: 0.52 m/s TV E/A Ratio: 1.20 Retail Sales Professional: GD | | | Authenticated by: Sav Trotter MD, FACC, FACP, FASNC Report | | | Date/Time: 03-07-2018 12:47:18 | | + + + + + | Procedure Note | + + | Josh Quinteros Conversion - 06/18/2019 7:33 AM PDT Patient Name: Percy BURNS of | | : 1965 Performing Physician: Sav Trotter MD, FACC, | | TRIPP, | | ANITA INDICATIONS--------- | | --stroke CONCLUSIONS 1. This was a technically difficult study with suboptimal | | views secondary to body habitus.2. Overall left ventricular systolic function is normal | | with, an EF between 55 - 60 %.3. There is mild concentric left ventricular | | hypertrophy.4. No obvious clot visualized5. negative bubble study seen in slide 35 | | FINDINGS--------ECG rhythm: Sinus rhythm.Study: A 2-dimensional transthoracic | | echocardiogram with m-mode, spectral and color flow Doppler was perfomed.Study: This was | | a technically difficult study with suboptimal views secondary to body habitus.Left | | Ventricle: Overall left ventricular systolic function is normal with, an EF between 55 - | | 60 %.Left Ventricle: The left ventricle cavity size is normal.Left Ventricle: There is | | mild concentric left ventricular hypertrophy.Left Ventricle: Poor tissue doppler signal | | prevents accurate assessment of diastolic function.Right Ventricle: The RV was not well | | visualized.Left Atrium: The left atrium was not well visualized.Right Atrium: The right | | atrium was not well visualized.Aortic Valve: The aortic valve was not well | | visualized.Aortic Valve: There is no evidence of aortic regurgitation.Aortic Valve: | | There is no evidence of aortic stenosis.Mitral Valve: The mitral valve was not well | | visualized.Mitral Valve: Mild mitral annular calcification present.Tricuspid Valve: The | | tricuspid valve was not well visualized.Tricuspid Valve: The poor TR signal prevents | | accurate estimation of pulmonary pressures.Pulmonic Valve: The pulmonic valve was not | | well visualized.Pericardium: There is no pericardial effusion.IVC/Hepatic Veins: The IVC | | was not well visualized.Thrombus: No clot visualizedContrast: Contrast study was | | performed with 2 iv injections of 8 ccs of agitated normal saline, at rest, and with | | cough.Contrast: negative bubble study seen in slide 35 MEASUREMENTS Ao | | sinus: 3.[address] junct: 2.83 cmEDV(Teich): 94.48 mlIVSd: 1.34 cmLVIDd: 4.54 | | cmLVPWd: 1.30 cmLVOT Diam: 2.13 cm%FS: 28.75 %EF(Teich): 55.46 %ESV(Teich): | | 42.08 mlIVSs: 1.29 cmLVIDs: 3.23 cmLVPWs: 1.49 cmSV(Teich): 52.40 mlLVCI Dopp: | | 1.31 l/vewt9MXND Dopp: 3.76 l/minHR: 72.73 BPMLVOT maxP.53 mmHgLVOT meanPG: | | 1.68 mmHgLVSI Dopp: 18.11 ml/m2LVSV Dopp: 51.80 mlLVOT Vmax: 0.94 m/sLVOT Vmean: | | 0.61 m/sLVOT VTI: 14.49 cmMCO: 391.05 msMV A Jeff: 0.75 m/sMV DecT: 151.45 msMV | | E Jeff: 0.63 m/sMV E/A Ratio: 0.77E/E' Av.40E' Av.06 m/sE/E' Lat: | | 10.63E/E' Sept: 10.19E' Lat: 0.05 m/sE' Sept: 0.06 m/sMV PHT: 59.32 msMVA By | | PHT: 3.70 cm2HR: 74.01 BPMPV maxP.58 mmHgPV meanP.90 mmHgPV Vmax: 0.94 | | m/sPV Vmean: 0.66 m/sPV VTI: 17.01 cmTV A Jeff: 0.43 m/sTV Dec Pleasants: 2.48 | | m/s2TV Dec Time: 211.42 msTV E Jeff: 0.52 m/sTV E/A Ratio: 1.20 Retail Sales Professional: | | GDAuthenticated by: Sav Trotter MD, FACC, FACP, FASNCReport Date/Time: 03-07-2018 | | 12:47:18 IMPRESSION: 1. This was a technically difficult study with suboptimal views | | secondary to body habitus.2. Overall left ventricular systolic function is normal with, | | an EF between 55 - 60 %.3. There is mild concentric left ventricular hypertrophy.4. No | | obvious clot visualized5. negative bubble study seen in slide 35 | |Thrombus: No clot visualized | |Contrast: Contrast study was performed with 2 iv injections of 8 ccs of agitated normal yair ine, at rest, and with cough. | |Contrast: negative bubble study seen in slide 35 | | | |MEASUREMENTS | | | |Ao sinus: 3.74 cm | |Ao st junct: 2.83 cm | |EDV(Teich): 94.48 ml | |IVSd: 1.34 cm | |LVIDd: 4.54 cm | |LVPWd: 1.30 cm | |LVOT Diam: 2.13 cm | |%FS: 28.75 % | |EF(Teich): 55.46 % | |ESV(Teich): 42.08 ml | |IVSs: 1.29 cm | |LVIDs: 3.23 cm | |LVPWs: 1.49 cm | |SV(Teich): 52.40 ml | |LVCI Dopp: 1.31 l/minm2 | |LVCO Dopp: 3.76 l/min | |HR: 72.73 BPM | |LVOT maxP.53 mmHg | |LVOT meanP.68 mmHg | |LVSI Dopp: 18.11 ml/m2 | |LVSV Dopp: 51.80 ml | |LVOT Vmax: 0.94 m/s | |LVOT Vmean: 0.61 m/s | |LVOT VTI: 14.49 cm | |MCO: 391.05 ms | |MV A Jeff: 0.75 m/s | |MV DecT: 151.45 ms | |MV E Jeff: 0.63 m/s | |MV E/A Ratio: 0.77 | |E/E' Av.40 | |E' Av.06 m/s | |E/E' Lat: 10.63 | |E/E' Sept: 10.19 | |E' Lat: 0.05 m/s | |E' Sept: 0.06 m/s | |MV PHT: 59.32 ms | |MVA By PHT: 3.70 cm2 | |HR: 74.01 BPM | |PV maxP.58 mmHg | |PV meanP.90 mmHg | |PV Vmax: 0.94 m/s | |PV Vmean: 0.66 m/s | |PV VTI: 17.01 cm | |TV A Jeff: 0.43 m/s | |TV Dec Pleasants: 2.48 m/s2 | |TV Dec Time: 211.42 ms | |TV E Jeff: 0.52 m/s | |TV E/A Ratio: 1.20 | | | |Retail Sales Professional: GD | |Authenticated by: Sav Trotter MD, FACC, FACP, FASNC | |Report Date/Time: 03-07-2018 12:47:18 | | | |IMPRESSION: | |1. This was a technically difficult study with suboptimal views secondary to body habitus. | |2. Overall left ventricular systolic function is normal with, an EF between 55 - 60 %. | |3. There is mild concentric left ventricular hypertrophy. | |4. No obvious clot visualized | |5. negative bubble study seen in slide 35 | + + Troponin I (03/07/2018 6:18 AM PDT) + + + + + + | Component | Value | Ref Range | Performed | Pathologist | | | | | At | Signature | + + + + + + | Troponin I, | <0.020Comment: 0.00 to | 0.00 - 0.10 | EXTERNAL | | | Qual | 0.10 CONSISTENT WITH | ng/mL | LAB | | | | NORMAL POPULATION0.11 | | | | | | to 0.60 CONSISTENT | | | | | | WITH INCREASED RISK FOR | | | | | | ADVERSE OUTCOMES> 0.60 | | | | | | CONSISTENT | | | | | | WITH WHO CRITERIA FOR | | | | | | ACUTE PA Testing | | | | | | performed at [facility] | | | | | | [address] [facility];[place], [place] | | | | | | [address] | | | | + + + + + + + + | Specimen | + + | Blood specimen | | (specimen) | + + + +---------+ + + | Performing | Address | City/State/Zipcode | Phone Number | | Organization | | | | + +---------+ + + | EXTERNAL LAB | | | | + +---------+ + + POC Glucose (03/07/2018 6:17 AM PDT) + + + + + + | Component | Value | Ref Range | Performed | Pathologist | | | | | At | Signature | + + + + + + | Glucose, | 352 (H)Comment: Testing | 65 - 99 mg/dL | EXTERNAL | | | Fingerstick | performed at [facility];[address] | | LAB | | | [address];[place], [place] | | | | | | [address] | | | | + + + + + + + + | Specimen | + + | | + + + +---------+ + + | Performing | Address | City/State/Zipcode | Phone Number | | Organization | | | | + +---------+ + + | EXTERNAL LAB | | | | + +---------+ + + Urinalysis with Microscopic if Indicated (03/07/2018 6:15 AM PDT) + + + + + + | Component | Value | Ref Range | Performed | Pathologist | | | | | At | Signature | + + + + + + | Color | YELLOW | | EXTERNAL | | | | | | LAB | | + + + + + + | Clarity | CLEAR | | EXTERNAL | | | | | | LAB | | + + + + + + | Specific | 1.036 (H) | 1.002 - 1.030 | EXTERNAL | | | [place], | | | LAB | | | Urine | | | | | + + + + + + | Leukocyte | NEGATIVE | | EXTERNAL | | | Esterase, | | | LAB | | | Urine | | | | | + + + + + + | Nitrite, | NEGATIVE | | EXTERNAL | | | Urine | | | LAB | | + + + + + + | Urobilinoge | NORMAL | mg/dL | EXTERNAL | | | n, Urine | | | LAB | | + + + + + + | Protein, | 30 (A) | mg/dL | EXTERNAL | | | Urine | | | LAB | | + + + + + + | pH, Urine | 5.0 | 5.0 - 8.0 | EXTERNAL | | | | | | LAB | | + + + + + + | Blood, | SMALL (A) | | EXTERNAL | | | Urine | | | LAB | | + + + + + + | Ketones | 20 (A) | mg/dL | EXTERNAL | | | | | | LAB | | + + + + + + | Bilirubin, | NEGATIVE | | EXTERNAL | | | Urine | | | LAB | | + + + + + + | Glucose, | >500 (A) | mg/dL | EXTERNAL | | | Urine | | | LAB | | + + + + + + | WBC, UA | 0-2 | 0 - 5 /hpf | EXTERNAL | | | | | | LAB | | + + + + + + | RBC, UA | 0-2 | 0 - 2 /hpf | EXTERNAL | | | | | | LAB | | + + + + + + | Bacteria, | NONE SEEN | | EXTERNAL | | | UA | | | LAB | | + + + + + + | Epithelial | 3-5Comment: Testing | /lpf | EXTERNAL | | | Cells | performed at [facility];[address] | | LAB | | | | [address];[place], [place] | | | | | | [address] | | | | + + + + + + + + | Specimen | + + | Urine specimen | | (specimen) | + + + +---------+ + + | Performing | Address | City/State/Zipcode | Phone Number | | Organization | | | | + +---------+ + + | EXTERNAL LAB | | | | + +---------+ + + VAS Carotid Duplex Bilateral (03/07/2018 5:40 AM PDT) + + | Specimen | + + | | + + + + + | Impressions | Performed At | + + + | No hemodynamically significant stenoses in the bilateral carotid | | | arteries. Validated velocity measurements with angiographic | | | measurements and velocity criteria are extrapolated from diameter data | | | as defined by the Society of Radiologists in Ultrasound Consensus | | | Conference Radiology 2003; 229;340-346. RADIA Electronically | | | signed by Buck Faith MD on Mar 07 2018 7:45AM Referring | | | Provider Line: [phone] ID: [id number] | | + + + + + + | Narrative | Performed At | + + + | EXAM: CAROTID DOPPLER ULTRASOUND EXAM DATE: 03/07/2018 06:14 AM. | | | CLINICAL HISTORY: CVA, rule out carotid artery stenosis. | | | COMPARISON: None. TECHNIQUE: Real-time sonographic vascular | | | imaging was performed by the postal mail carrier through the carotid arterial | | | system with a linear transducer utilizing color-flow, Doppler flow and | | | spectral analysis. Multiple hospital sales representative static images were saved | | | for review. FINDINGS: Right Carotid: No elevated velocities | | | identified. Antegrade flow present in the vertebral artery. Mild | | | calcific plaque present in the proximal right ICA. Left Carotid: | | | No elevated velocities identified. Antegrade flow present in the | | | vertebral artery. No significant atherosclerotic plaque visualized. | | | Right: CCA Proximal: PSV 84 cm/sec, EDV 19 cm/sec. CCA Distal: PSV | | | 84 cm/sec, EDV 14 cm/sec. ICA Proximal: PSV 48 cm/sec, EDV 16 | | | cm/sec. ICA Mid: PSV 51 cm/sec, EDV 21 cm/sec. ICA Distal: PSV 36 | | | cm/sec, EDV 18 cm/sec. ECA Proximal: PSV 95 cm/sec, EDV 6 cm/sec. | | | Vertebral: PSV 39 cm/sec, EDV 10 cm/sec. ICA/CCA Ratio: 0.6. | | | ICA Plaque: Hyperechoic. Vertebral Artery Flow: Antegrade. | | | Left: CCA Proximal: PSV 117 cm/sec, EDV 22 cm/sec. CCA Distal: PSV | | | 77 cm/sec, EDV 18 cm/sec. ICA Proximal: PSV 57 cm/sec/ EDV 19 cm/sec. | | | ICA Mid: PSV 53 cm/sec, EDV 18 cm/sec. ICA Distal: PSV 57 cm/sec, | | | EDV 22 cm/sec. ECA Proximal: PSV 72 cm/sec, EDV 5 cm/sec. Vertebral: | | | PSV 62 cm/sec, EDV 14 cm/sec. ICA/CCA Ratio: 0.7. Vertebral | | | Artery Flow: Antegrade. Other: None. | | + + + + + | Procedure Note | + + | [place], Rad Conversion - 06/18/2019 7:33 AM PDT EXAM:CAROTID DOPPLER ULTRASOUND EXAM | | DATE: 03/07/2018 06:14 AM. CLINICAL HISTORY: CVA, rule out carotid artery stenosis. | | COMPARISON: None. TECHNIQUE: Real-time sonographic vascular imaging was performed by the | | postal mail carrier through the carotid arterial system with a linear transducer utilizing | | color-flow, Doppler flow and spectral analysis. Multiple hospital sales representative static images | | were saved for review. FINDINGS:Right Carotid: No elevated velocities identified. | | Antegrade flow present in the vertebral artery. Mild calcific plaque present in the | | proximal right ICA. Left Carotid: No elevated velocities identified. Antegrade flow | | present in the vertebral artery. No significant atherosclerotic plaque visualized. | | Right:CCA Proximal: PSV 84 cm/sec, EDV 19 cm/sec.CCA Distal: PSV 84 cm/sec, EDV 14 | | cm/sec.ICA Proximal: PSV 48 cm/sec, EDV 16 cm/sec.ICA Mid: PSV 51 cm/sec, EDV 21 | | cm/sec.ICA Distal: PSV 36 cm/sec, EDV 18 cm/sec.ECA Proximal: PSV 95 cm/sec, EDV 6 | | cm/sec.Vertebral: PSV 39 cm/sec, EDV 10 cm/sec. ICA/CCA Ratio: 0.6. ICA Plaque: | | Hyperechoic. Vertebral Artery Flow: Antegrade. Left:CCA Proximal: PSV 117 cm/sec, EDV 22 | | cm/sec.CCA Distal: PSV 77 cm/sec, EDV 18 cm/sec.ICA Proximal: PSV 57 cm/sec/ EDV 19 | | cm/sec.ICA Mid: PSV 53 cm/sec, EDV 18 cm/sec.ICA Distal: PSV 57 cm/sec, EDV 22 | | cm/sec.ECA Proximal: PSV 72 cm/sec, EDV 5 cm/sec.Vertebral: PSV 62 cm/sec, EDV 14 | | cm/sec. ICA/CCA Ratio: 0.7. Vertebral Artery Flow: Antegrade. Other: None. IMPRESSION: | | No hemodynamically significant stenoses in the bilateral carotid arteries. Validated | | velocity measurements with angiographic measurements and velocity criteria are | | extrapolated from diameter data as defined by the Society of Radiologists in Ultrasound | | Consensus Conference Radiology 2003; 229;340-346. RADIA Electronically signed by Buck | | MD Marcell on Mar 07 2018 7:45AM Referring Provider Line: [phone] ID: [id number] | |ICA Distal: PSV 36 cm/sec, EDV 18 cm/sec. | |ECA Proximal: PSV 95 cm/sec, EDV 6 cm/sec. | |Vertebral: PSV 39 cm/sec, EDV 10 cm/sec. | | | |ICA/CCA Ratio: 0.6. | | | |ICA Plaque: Hyperechoic. | | | |Vertebral Artery Flow: Antegrade. | | | |Left: | |CCA Proximal: PSV 117 cm/sec, EDV 22 cm/sec. | |CCA Distal: PSV 77 cm/sec, EDV 18 cm/sec. | |ICA Proximal: PSV 57 cm/sec/ EDV 19 cm/sec. | |ICA Mid: PSV 53 cm/sec, EDV 18 cm/sec. | |ICA Distal: PSV 57 cm/sec, EDV 22 cm/sec. | |ECA Proximal: PSV 72 cm/sec, EDV 5 cm/sec. | |Vertebral: PSV 62 cm/sec, EDV 14 cm/sec. | | | |ICA/CCA Ratio: 0.7. | | | |Vertebral Artery Flow: Antegrade. | | | |Other: None. | | | |IMPRESSION: | | | |No hemodynamically significant stenoses in the bilateral carotid arteries. | | | |Validated velocity measurements with angiographic measurements and velocity criteria are ex trapolated from diameter data as defined by the Society of Radiologists in Ultrasound Consen olga lidia Conference Radiology 2003; 229;340-346. | | | |RADIA | | | | Electronically signed by Buck Faith MD on Mar 07 2018 7:45AM Referring Provider Line: [phone] ID: [id number] | + + POC Glucose (03/07/2018 4:59 AM PDT) + + + + + + | Component | Value | Ref Range | Performed | Pathologist | | | | | At | Signature | + + + + + + | Glucose, | 354 (H)Comment: Testing | 65 - 99 mg/dL | EXTERNAL | | | Fingerstick | performed at [facility];[address] | | LAB | | | | [address];[place], [place] | | | | | | [address] | | | | + + + + + + + + | Specimen | + + | | + + + +---------+ + + | Performing | Address | City/State/Zipcode | Phone Number | | Organization | | | | + +---------+ + + | EXTERNAL LAB | | | | + +---------+ + + POC Glucose (03/07/2018 3:39 AM PDT) + + + + + + | Component | Value | Ref Range | Performed | Pathologist | | | | | At | Signature | + + + + + + | Glucose, | 339 (H)Comment: Testing | 65 - 99 mg/dL | EXTERNAL | | | Fingerstick | performed at [facility];[address] | | LAB | | | [address];[place], [place] | | | | | | [address] | | | | + + + + + + + + | Specimen | + + | | + + + +---------+ + + | Performing | Address | City/State/Zipcode | Phone Number | | Organization | | | | + +---------+ + + | EXTERNAL LAB | | | | + +---------+ + + Troponin I (03/07/2018 3:22 AM PDT) + + + + + + | Component | Value | Ref Range | Performed | Pathologist | | | | | At | Signature | + + + + + + | Troponin I, | <0.020Comment: 0.00 to | 0.00 - 0.10 | EXTERNAL | | | Qual | 0.10 CONSISTENT WITH | ng/mL | LAB | | | | NORMAL POPULATION0.11 | | | | | | to 0.60 CONSISTENT | | | | | | WITH INCREASED RISK FOR | | | | | | ADVERSE OUTCOMES> 0.60 | | | | | | CONSISTENT | | | | | | WITH WHO CRITERIA FOR | | | | | | ACUTE PA Testing | | | | | | performed at [facility];[address] | | | | | | [facility];[place], [place] | | | | | | [address] | | | | + + + + + + + + | Specimen | + + | Blood specimen | | (specimen) | + + + +---------+ + + | Performing | Address | City/State/Zipcode | Phone Number | | Organization | | | | + +---------+ + + | EXTERNAL LAB | | | | + +---------+ + + External Lab: CBC (03/07/2018 3:22 AM PDT) + + + + + + | Component | Value | Ref Range | Performed | Pathologist | | | | | At | Signature | + + + + + + | WBC | 7.61 | 3.80 - 11.00 | EXTERNAL | | | | | K/uL | LAB | | + + + + + + | Red Blood | 4.56 | 4.20 - 5.70 | EXTERNAL | | | Cells | | M/uL | LAB | | | Counted | | | | | + + + + + + | Hemoglobin | 13.9 | 13.2 - 17.0 | EXTERNAL | | | | | g/dL | LAB | | + + + + + + | Hematocrit, | 41.1 | 39.0 - 50.0 % | EXTERNAL | | | POC | | | LAB | | + + + + + + | MCV | 90.1 | 80.0 - 100.0 fl | EXTERNAL | | | | | | LAB | | + + + + + + | MCH | 30.6 | 27.0 - 34.0 pg | EXTERNAL | | | | | | LAB | | + + + + + + | MCHC | 33.9 | 32.0 - 35.5 | EXTERNAL | | | | | g/dL | LAB | | + + + + + + | RDW-CV | 45.5 | 37 - 53 fl | EXTERNAL | | | | | | LAB | | + + + + + + | Platelet | 189 | 150 - 400 K/uL | EXTERNAL | | | Count | | | LAB | | | Plasma | | | | | + + + + + + | MPV | 8.6 | fl | EXTERNAL | | | | | | LAB | | + + + + + + | Differentia | AUTOMATED | | EXTERNAL | | | l Type | | | LAB | | + + + + + + | % Segmented | 63.65 | % | EXTERNAL | | | | | | LAB | | | Neutrophils | | | | | + + + + + + | % | 24.93 | % | EXTERNAL | | | Lymphocytes | | | LAB | | + + + + + + | % Monocytes | 8.56 | % | EXTERNAL | | | | | | LAB | | + + + + + + | % | 2.26 | % | EXTERNAL | | | Eosinophils | | | LAB | | + + + + + + | % Basophils | 0.60 | % | EXTERNAL | | | | | | LAB | | + + + + + + | Absolute | 4.84 | 1.90 - 7.40 | EXTERNAL | | | Segmented | | K/uL | LAB | | | Neutrophils | | | | | + + + + + + | Absolute | 1.90 | 1.00 - 3.90 | EXTERNAL | | | Lymphocytes | | K/uL | LAB | | + + + + + + | Absolute | 0.65 | 0.00 - 0.80 | EXTERNAL | | | Monocytes | | K/uL | LAB | | + + + + + + | Absolute | 0.17 | 0.00 - 0.50 | EXTERNAL | | | Eosinophils | | K/uL | LAB | | + + + + + + | Absolute | 0.05Comment: Testing | 0.00 - 0.10 | EXTERNAL | | | Basophils | performed at [facility], [address] | K/uL | LAB | | | | [address], | | | | | | [place] [address] | | | | + + + + + + + + | Specimen | + + | Blood specimen | | (specimen) | + + + +---------+ + + | Performing | Address | City/State/Zipcode | Phone Number | | Organization | | | | + +---------+ + + | EXTERNAL LAB | | | | + +---------+ + + Phosphorus (03/07/2018 3:22 AM PDT) + + + + + + | Component | Value | Ref Range | Performed | Pathologist | | | | | At | Signature | + + + + + + | PHOSPHORUS | 2.6Comment: Testing | 2.3 - 4.8 mg/dL | EXTERNAL | | | | performed at [facility], [address] | | LAB | | | | [address], | | | | | | [place] [address] | | | | + + + + + + + + | Specimen | + + | Blood specimen | | (specimen) | + + + +---------+ + + | Performing | Address | City/State/Zipcode | Phone Number | | Organization | | | | + +---------+ + + | EXTERNAL LAB | | | | + +---------+ + + Magnesium (03/07/2018 3:22 AM PDT) + + + + + + | Component | Value | Ref Range | Performed | Pathologist | | | | | At | Signature | + + + + + + | Magnesium | 1.8Comment: Testing | 1.7 - 2.4 mg/dL | EXTERNAL | | | | performed at [facility], [address] | | LAB | | | | [address], | | | | | | [place] [address] | | | | + + + + + + + + | Specimen | + + | Blood specimen | | (specimen) | + + + +---------+ + + | Performing | Address | City/State/Zipcode | Phone Number | | Organization | | | | + +---------+ + + | EXTERNAL LAB | | | | + +---------+ + + Hemoglobin A1C (03/07/2018 3:22 AM PDT) + + + + + + | Component | Value | Ref Range | Performed | Pathologist | | | | | At | Signature | + + + + + + | Hemoglobin | 14.6 (H)Comment: The | 4.0 - 6.0 % | EXTERNAL | | | A1c | [place] [employer] | | LAB | | | | Association considers a | | | | | | hemoglobin A1c result of | | | | | | <7.0% to be the goal of | | | | | | diabetic therapy. | | | | | | When results are | | | | | | consistently >8.0%, the | | | | | | ADA suggests | | | | | | reevaluation of the | | | | | | treatment regimen. The | | | | | | testing method used is | | | | | | certified traceable to | | | | | | the Diabetes Control and | | | | | | Complications Trial | | | | | | reference method. | | | | + + + + + + | Glycohemogl | 372Comment: The ADA | mg/dL | EXTERNAL | | | obin | considers an eAG result | | LAB | | | (GHb),Total | of LT 154 mg/dL to be | | | | | | the goal of diabetic | | | | | | therapy. Estimated | | | | | | Average Glucose | | | | | | calculated from | | | | | | hemoglobin A1c by use of | | | | | | the ADA recommended | | | | | | formula.Testing | | | | | | performed at [facility], [address] | | | | | [facility], | | | | | | [place] [address] | | | | + + + + + + + + | Specimen | + + | Blood specimen | | (specimen) | + + + +---------+ + + | Performing | Address | City/State/Zipcode | Phone Number | | Organization | | | | + +---------+ + + | EXTERNAL LAB | | | | + +---------+ + + Lipid Panel (03/07/2018 3:22 AM PDT) + + + + + + | Component | Value | Ref Range | Performed | Pathologist | | | | | At | Signature | + + + + + + | Cholesterol | 264 (H) | mg/dL | EXTERNAL | | | | | | LAB | | + + + + + + | Triglycerid | 368 (H) | mg/dL | EXTERNAL | | | es | | | LAB | | + + + + + + | HDL | 36 (L) | mg/dL | EXTERNAL | | | | | | LAB | | + + + + + + | LDL, | 154 (H)Comment: Testing | mg/dL | EXTERNAL | | | Calculated | performed at [facility], [address] | | LAB | | | | Stephanie [place], | | | | | | [place], [place] [address] | | | | + + + + + + + + | Specimen | + + | Blood specimen | | (specimen) | + + + +---------+ + + | Performing | Address | City/State/Zipcode | Phone Number | | Organization | | | | + +---------+ + + | EXTERNAL LAB | | | | + +---------+ + + Comprehensive Metabolic Panel (03/07/2018 3:22 AM PDT) + + + + + + | Component | Value | Ref Range | Performed | Pathologist | | | | | At | Signature | + + + + + + | Na | 137 | 135 - 145 | EXTERNAL | | | | | mmol/L | LAB | | + + + + + + | K | 3.6 | 3.5 - 4.9 | EXTERNAL | | | | | mmol/L | LAB | | + + + + + + | Cl | 101 | 99 - 109 mmol/L | EXTERNAL | | | | | | LAB | | + + + + + + | CO2 | 24 | 23 - 32 mmol/L | EXTERNAL | | | | | | LAB | | + + + + + + | Anion Gap | 16 | 5 - 20 mmol/L | EXTERNAL | | | | | | LAB | | + + + + + + | Glucose, | 354 (H) | 65 - 99 mg/dL | EXTERNAL | | | Fasting | | | LAB | | + + + + + + | BUN | 18 | 8 - 25 mg/dL | EXTERNAL | | | | | | LAB | | + + + + + + | Creatinine | 1.2 | 0.70 - 1.30 | EXTERNAL | | | | | mg/dL | LAB | | + + + + + + | BUN/Creatin | 15 | | EXTERNAL | | | ine Ratio | | | LAB | | + + + + + + | Calcium | 8.6 | 8.5 - 10.5 | EXTERNAL | | | | | mg/dL | LAB | | + + + + + + | Protein, | 7.1 | 6.3 - 8.2 g/dL | EXTERNAL | | | Total | | | LAB | | + + + + + + | Albumin | 2.8 (L) | 3.6 - 5.0 g/dL | EXTERNAL | | | | | | LAB | | + + + + + + | Globulin | 4.3 | 1.3 - 4.9 g/dL | EXTERNAL | | | | | | LAB | | + + + + + + | A/G Ratio | 0.7 (L) | 1.0 - 2.4 | EXTERNAL | | | | | | LAB | | + + + + + + | Bilirubin | 0.6 | 0.1 - 1.5 mg/dL | EXTERNAL | | | Total | | | LAB | | + + + + + + | ALP, | 105 | 35 - 115 U/L | EXTERNAL | | | External | | | LAB | | + + + + + + | AST | 16 | 10 - 45 U/L | EXTERNAL | | | | | | LAB | | + + + + + + | ALT | 17 | 10 - 65 U/L | EXTERNAL | | | | | | LAB | | + + + + + + | Estimated | >60Comment: GFR <60: | mL/min/1.73m2 | EXTERNAL | | | GFR | CHRONIC KIDNEY DISEASE, | | LAB | | | | IF FOUND OVER A 3 MONTH | | | | | | PERIOD.GFR <15: KIDNEY | | | | | | FAILURE.FOR | | | | | | AMERICANS, MULTIPLY THE | | | | | | CALCULATED GFR BY | | | | | | 1.210.Testing performed | | | | | | at [facility], [address] | | | | | [address], | | | | | | [place] [address] | | | | + + + + + + + + | Specimen | + + | Blood specimen | | (specimen) | + + + +---------+ + + | Performing | Address | City/State/Zipcode | Phone Number | | Organization | | | | + +---------+ + + | EXTERNAL LAB | | | | + +---------+ + + POC Glucose (03/06/2018 11:55 PM PDT) + + + + + + | Component | Value | Ref Range | Performed | Pathologist | | | | | At | Signature | + + + + + + | Glucose, | 317 (H)Comment: Testing | 65 - 99 mg/dL | EXTERNAL | | | Fingerstick | performed at [facility];[address] | | LAB | | | | [address];[place] | | | | | | [address] | | | | + + + + + + + + | Specimen | + + | | + + + +---------+ + + | Performing | Address | City/State/Zipcode | Phone Number | | Organization | | | | + +---------+ + + | EXTERNAL LAB | | | | + +---------+ + + MRI Brain W Wo MRA Head Wo (03/06/2018 9:27 PM PDT) + + | Specimen | + + | | + + + + + | Impressions | Performed At | + + + | MRI HEAD: 1.No acute intracranial abnormality. There is no acute | | | infarct. 2. There are 2 small patchy subcentimeter foci of signal | | | abnormality in the inferior left cerebellum which demonstrate | | | evidence of mild petechial hemorrhage and contrast enhancement. These | | | are compatible with small subacute to early chronic infarcts. There | | | is no mass effect. 3. Mild chronic microvascular change. 4. No | | | intracranial mass lesion, mass effect, or hydrocephalus. MRA | | | HEAD: 1.Unremarkable MRA of intracranial circulation. No evidence of | | | aneurysm or significant stenosis. RADIA Electronically signed | | | by Ridge Lloyd MD on Mar 06 2018 10:30PM Referring Provider | | | Line: [phone] ID: [id number] | | + + + + + + | Narrative | Performed At | + + + | EXAMS: MRI BRAIN WITHOUT AND WITH CONTRAST. MRA BRAIN WITHOUT | | | CONTRAST. EXAM DATE: 03/06/2018 09:28 PM. CLINICAL HISTORY: | | | Stroke. Left cerebellar lesion. COMPARISON: CT head without and | | | with contrast 03/06/2018. TECHNIQUE: MRI: Multiplanar, multisequence | | | T1-weighted and fluid-sensitive MRI sequences of the brain were | | | performed. Sequences optimized for routine evaluation. Other: None. | | | Post-processing: None. IV Contrast: MultiHance 25 mL. MRA: | | | Multiplanar, multisequence T1-weighted and fluid-sensitive MRA | | | sequences of the brain were performed. Other: None. Post-processing: | | | Multiplanar 3D MIP reconstructions. IV Contrast: None. FINDINGS: | | | MRI: Brain Volume: Normal for age. Parenchyma/Dura: There is no | | | acute infarct on diffusion imaging. 2 small subcentimeter foci of | | | increased T2 signal in the inferior left cerebellar hemisphere | | | demonstrate mild hyperintensity on the precontrast T1 sequence and | | | susceptibility artifact on the T2 gradient echo sequence suggesting | | | small foci of petechial hemorrhage. These also demonstrate mild | | | contrast enhancement. These likely represent small subacute to early | | | chronic infarcts. There is mild chronic microvascular changes in | | | the periventricular white matter. There is no mass lesion or mass | | | effect. Ventricles/Cisterns: No hydrocephalus. No abnormal | | | extra-axial fluid collection or hemorrhage. Orbits: Symmetric and | | | unremarkable. Sella Turcica: Unremarkable. IAC: Symmetric and | | | unremarkable. Vasculature: Normal signal flow void is seen in the | | | major arterial structures at the skull base. The dural sinuses enhance | | | normally and appear patent. Sinuses: No acute appearing sinus | | | disease. Bones: No focal pathologic appearing marrow signal | | | changes. Other: Cerebellar tonsils are normal position. MRA: | | | The petrous, cavernous, and supraclinoid segments of both internal | | | carotid arteries are patent and normal in caliber. The middle cerebral | | | and anterior cerebral artery distributions appear normal bilaterally. | | | The left posterior cerebral artery has anatomy arising from | | | the left ICA. Both vertebral arteries join to form the basilar | | | artery. The distal left vertebral artery is congenitally small. There | | | is no stenosis or dissection of the distal vertebral or basilar | | | arteries. The proximal PICA's are visualized bilaterally and appear | | | patent. The P1 segment of the left TUTORING CLINICIAN is hypoplastic due to | | | anatomy of the left TUTORING CLINICIAN. This is a normal variant. Posterior | | | circulation is within normal limits. There is no evidence of a | | | cerebral aneurysm. There is no evidence of a large vessel occlusion or | | | significant intracranial stenosis. | | + + + + + | Procedure Note | + + | [place], Rad Conversion - 06/18/2019 7:33 AM PDT EXAMS:MRI BRAIN WITHOUT AND WITH | | CONTRAST.MRA BRAIN WITHOUT CONTRAST. EXAM DATE: 03/06/2018 09:28 PM. CLINICAL HISTORY: | | Stroke. Left cerebellar lesion. COMPARISON: CT head without and with contrast 03/06/2018. | | TECHNIQUE: MRI: Multiplanar, multisequence T1-weighted and fluid-sensitive MRI sequences | | of the brain were performed. Sequences optimized for routine evaluation. Other: None. | | Post-processing: None. IV Contrast: MultiHance 25 mL. MRA: Multiplanar, multisequence | | T1-weighted and fluid-sensitive MRA sequences of the brain were performed. Other: None. | | Post-processing: Multiplanar 3D MIP reconstructions. IV Contrast: None. | | FINDINGS:MRI:Brain Volume: Normal for age. Parenchyma/Dura: There is no acute infarct on | | diffusion imaging. 2 small subcentimeter foci of increased T2 signal in the inferior | | left cerebellar hemisphere demonstrate mild hyperintensity on the precontrast T1 | | sequence and susceptibility artifact on the T2 gradient echo sequence suggesting small | | foci of petechial hemorrhage. These also demonstrate mild contrast enhancement. These | | likely represent small subacute to early chronic infarcts. There is mild chronic | | microvascular changes in the periventricular white matter. There is no mass lesion or | | mass effect. Ventricles/Cisterns: No hydrocephalus. No abnormal extra-axial fluid | | collection or hemorrhage. Orbits: Symmetric and unremarkable. Sella Turcica: | | Unremarkable. IAC: Symmetric and unremarkable. Vasculature: Normal signal flow void is | | seen in the major arterial structures at the skull base. The dural sinuses enhance | | normally and appear patent. Sinuses: No acute appearing sinus disease. Bones: No focal | | pathologic appearing marrow signal changes. Other: Cerebellar tonsils are normal | | position. MRA: The petrous, cavernous, and supraclinoid segments of both internal | | carotid arteries are patent and normal in caliber. The middle cerebral and anterior | | cerebral artery distributions appear normal bilaterally. The left posterior cerebral | | artery has anatomy arising from the left ICA. Both vertebral arteries join to form | | the basilar artery. The distal left vertebral artery is congenitally small. There is no | | stenosis or dissection of the distal vertebral or basilar arteries. The proximal PICA's | | are visualized bilaterally and appear patent. The P1 segment of the left TUTORING CLINICIAN is | | hypoplastic due to anatomy of the left TUTORING CLINICIAN. This is a normal variant. Posterior | | circulation is within normal limits. There is no evidence of a cerebral aneurysm. There | | is no evidence of a large vessel occlusion or significant intracranial stenosis. | | IMPRESSION: MRI HEAD:1.No acute intracranial abnormality. There is no acute infarct. 2. | | There are 2 small patchy subcentimeter foci of signal abnormality in the inferior left | | cerebellum which demonstrate evidence of mild petechial hemorrhage and contrast | | enhancement. These are compatible with small subacute to early chronic infarcts. There | | is no mass effect. 3. Mild chronic microvascular change. 4. No intracranial mass lesion, | | mass effect, or hydrocephalus. MRA HEAD:1.Unremarkable MRA of intracranial circulation. | | No evidence of aneurysm or significant stenosis. RADIA Electronically signed by | | Ridge Lloyd MD on Mar 06 2018 10:30PM Referring Provider Line: [phone] | | ID: [id number] | | | |MRA: | | | |The petrous, cavernous, and supraclinoid segments of both internal carotid arteries are pat ent and normal in caliber. The middle cerebral and anterior cerebral artery distributions ap pear normal bilaterally. The left | |posterior cerebral artery has | |anatomy arising from the left ICA. | | | |Both vertebral arteries join to form the basilar artery. 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 There is no stenosis or dissection of the distal vertebral or basilar arteries. The proximal PICA's are visualized bilaterally and appear | |patent. The P1 segment of the left TUTORING CLINICIAN is hypoplastic due to anatomy of the left TUTORING CLINICIAN. This is a normal variant. Posterior circulation is within normal limits. | | | |There is no evidence of a cerebral aneurysm. There is no evidence of a large vessel occlusi on or significant intracranial stenosis. | | | |IMPRESSION: | | | |MRI HEAD: | |1.No acute intracranial abnormality. There is no acute infarct. | | | |2. There are 2 small patchy subcentimeter foci of signal abnormality in the inferior left c erebellum which demonstrate evidence of mild petechial hemorrhage and contrast enhancement. These are compatible with small subacute to early chronic infarcts. | |There is no mass effect. | | | |3. Mild chronic microvascular change. | | | |4. No intracranial mass lesion, mass effect, or hydrocephalus. | | | |MRA HEAD: | |1.Unremarkable MRA of intracranial circulation. No evidence of aneurysm or significant sten osis. | | | |RADIA | | | | Electronically signed by Ridge Lloyd MD on Mar 06 2018 10:30PM Referring Provider Kat ne: [phone] ID: [id number] | + + HISTORICAL LAB PANEL RESULT (03/06/2018 7:40 PM PDT) + + + + + -+ | Component | Value | Ref Range | Performed | Pathologist | | | | | At | Signature | + + + + + -+ | WBC | 7.75 | 3.80 - 11.00 | EXTERNAL | | | | | K/uL | LAB | | + + + + + -+ | Red Blood | 4.82 | 4.20 - 5.70 | EXTERNAL | | | Cells | | M/uL | LAB | | | Counted | | | | | + + + + + -+ | Hemoglobin | 14.3 | 13.2 - 17.0 | EXTERNAL | | | | | g/dL | LAB | | + + + + + -+ | Hematocrit, | 43.1 | 39.0 - 50.0 % | EXTERNAL | | | POC | | | LAB | | + + + + + -+ | MCV | 89.4 | 80.0 - 100.0 fl | EXTERNAL | | | | | | LAB | | + + + + + -+ | MCH | 29.7 | 27.0 - 34.0 pg | EXTERNAL | | | | | | LAB | | + + + + + -+ | MCHC | 33.2 | 32.0 - 35.5 | EXTERNAL | | | | | g/dL | LAB | | + + + + + -+ | RDW-CV | 44.2 | 37 - 53 fl | EXTERNAL | | | | | | LAB | | + + + + + -+ | Platelet | 172 | 150 - 400 K/uL | EXTERNAL | | | Count | | | LAB | | | Plasma | | | | | + + + + + -+ | MPV | 8.5 | fl | EXTERNAL | | | | | | LAB | | + + + + + -+ | Differentia | AUTOMATED | | EXTERNAL | | | l Type | | | LAB | | + + + + + -+ | % Segmented | 71.76 | % | EXTERNAL | | | | | | LAB | | | Neutrophils | | | | | + + + + + -+ | % | 19.23 | % | EXTERNAL | | | Lymphocytes | | | LAB | | + + + + + -+ | % Monocytes | 6.33 | % | EXTERNAL | | | | | | LAB | | + + + + + -+ | % | 1.99 | % | EXTERNAL | | | Eosinophils | | | LAB | | + + + + + -+ | % Basophils | 0.69 | % | EXTERNAL | | | | | | LAB | | + + + + + -+ | Absolute | 5.56 | 1.90 - 7.40 | EXTERNAL | | | Segmented | | K/uL | LAB | | | Neutrophils | | | | | + + + + + -+ | Absolute | 1.49 | 1.00 - 3.90 | EXTERNAL | | | Lymphocytes | | K/uL | LAB | | + + + + + -+ | Absolute | 0.49 | 0.00 - 0.80 | EXTERNAL | | | Monocytes | | K/uL | LAB | | + + + + + -+ | Absolute | 0.15 | 0.00 - 0.50 | EXTERNAL | | | Eosinophils | | K/uL | LAB | | + + + + + -+ | Absolute | 0.05 | 0.00 - 0.10 | EXTERNAL | | | Basophils | | K/uL | LAB | | + + + + + -+ | Na | 137 | 135 - 145 | EXTERNAL | | | | | mmol/L | LAB | | + + + + + -+ | K | 3.9Comment: SLT | 3.5 - 4.9 | EXTERNAL | | | | HEMOLYSIS | mmol/L | LAB | | + + + + + -+ | Cl | 103 | 99 - 109 mmol/L | EXTERNAL | | | | | | LAB | | + + + + + -+ | CO2 | 24 | 23 - 32 mmol/L | EXTERNAL | | | | | | LAB | | + + + + + -+ | Anion Gap | 15 | 5 - 20 mmol/L | EXTERNAL | | | | | | LAB | | + + + + + -+ | Glucose, | 314 (H) | 65 - 99 mg/dL | EXTERNAL | | | Fasting | | | LAB | | + + + + + -+ | BUN | 18 | 8 - 25 mg/dL | EXTERNAL | | | | | | LAB | | + + + + + -+ | Creatinine | 1.2 | 0.70 - 1.30 | EXTERNAL | | | | | mg/dL | LAB | | + + + + + -+ | BUN/Creatin | 15 | | EXTERNAL | | | ine Ratio | | | LAB | | + + + + + -+ | Calcium | 8.6 | 8.5 - 10.5 | EXTERNAL | | | | | mg/dL | LAB | | + + + + + -+ | Protein, | 7.2 | 6.3 - 8.2 g/dL | EXTERNAL | | | Total | | | LAB | | + + + + + -+ | Albumin | 2.8 (L) | 3.6 - 5.0 g/dL | EXTERNAL | | | | | | LAB | | + + + + + -+ | Globulin | 4.4 | 1.3 - 4.9 g/dL | EXTERNAL | | | | | | LAB | | + + + + + -+ | A/G Ratio | 0.7 (L) | 1.0 - 2.4 | EXTERNAL | | | | | | LAB | | + + + + + -+ | Bilirubin | 0.6 | 0.1 - 1.5 mg/dL | EXTERNAL | | | Total | | | LAB | | + + + + + -+ | ALP, | 106 | 35 - 115 U/L | EXTERNAL | | | External | | | LAB | | + + + + + -+ | AST | 24Comment: SLT HEMOLYSIS | 10 - 45 U/L | EXTERNAL | | | | | | LAB | | + + + + + -+ | ALT | 18 | 10 - 65 U/L | EXTERNAL | | | | | | LAB | | + + + + + -+ | Estimated | >60Comment: GFR <60: | mL/min/1.73m2 | EXTERNAL | | | GFR | CHRONIC KIDNEY DISEASE, | | LAB | | | | IF FOUND OVER A 3 MONTH | | | | | | PERIOD.GFR <15: KIDNEY | | | | | | FAILURE.FOR | | | | | | AMERICANS, MULTIPLY THE | | | | | | CALCULATED GFR BY 1.210. | | | | | | | | | | + + + + + -+ | CK, Total | 117Comment: SLT | 55 - 400 U/L | EXTERNAL | | | | HEMOLYSIS | | LAB | | + + + + + -+ | INR | 0.9Comment: REFERENCE | | EXTERNAL | | | | RANGE:0.9 - 1.2 | | LAB | | | | NON-ANTICOAGULATED2.0 | | | | | | - 3.0 ALL OTHER | | | | | | THERAPEUTIC | | | | | | INDICATIONS2.5 - 3.5 | | | | | | MECHANICAL HEART VALVES, | | | | | | RECURRENT OR SYSTEMIC | | | | | | EMBOLISM | | | | + + + + + -+ | aPTT, | 26 | 23 - 32 seconds | EXTERNAL | | | Patient | | | LAB | | + + + + + -+ | CK-MB | 1.4 | 0.5 - 3.6 ng/mL | EXTERNAL | | | | | | LAB | | + + + + + -+ | CK-MB Index | 1.2Comment: CK INDEX | | EXTERNAL | | | | INTERPRETATION: | | LAB | | | | MMB ng/mL | | | | | | | | | | | |CK INDEX INTERPRETATION: | | | | | | MMB ng/mL | | | | | | | | | | + + + + + -+ + + | Specimen | + + | | + + + +---------+ + + | Performing | Address | City/State/Zipcode | Phone Number | | Organization | | | | + +---------+ + + | EXTERNAL LAB | | | | + +---------+ + + Troponin I (03/06/2018 7:40 PM PDT) + + + + + + | Component | Value | Ref Range | Performed | Pathologist | | | | | At | Signature | + + + + + + | Troponin I, | <0.020Comment: 0.00 to | 0.00 - 0.10 | EXTERNAL | | | Qual | 0.10 CONSISTENT WITH | ng/mL | LAB | | | | NORMAL POPULATION0.11 | | | | | | to 0.60 CONSISTENT | | | | | | WITH INCREASED RISK FOR | | | | | | ADVERSE OUTCOMES> 0.60 | | | | | | CONSISTENT | | | | | | WITH WHO CRITERIA FOR | | | | | | ACUTE PA Testing | | | | | | performed at [facility] | | | | | [address];[place], [place] | | | | | | [address] | | | | + + + + + + + + | Specimen | + + | | + + + +---------+ + + | Performing | Address | City/State/Zipcode | Phone Number | | Organization | | | | + +---------+ + + | EXTERNAL LAB | | | | + +---------+ + + POC Glucose (03/06/2018 7:27 PM PDT) + + + + + + | Component | Value | Ref Range | Performed | Pathologist | | | | | At | Signature | + + + + + + | Glucose, | 308 (H)Comment: Testing | 65 - 99 mg/dL | EXTERNAL | | | Fingerstick | performed at [facility];[address] | | LAB | | | | [address];[place] | | | | | | [address] | | | | + + + + + + + + | Specimen | + + | | + + + +---------+ + + | Performing | Address | City/State/Zipcode | Phone Number | | Organization | | | | + +---------+ + + | EXTERNAL LAB | | | | + +---------+ + + ECG 12 lead (03/06/2018 7:18 PM PDT) + + + + + + | Component | Value | Ref Range | Performed | Pathologist | | | | | At | Signature | + + + + + + | DIAGNOSIS: | Normal sinus rhythmLeft | | EXTERNAL | | | | anterior fascicular | | LAB | | | | blockPossible | | | | | | Anterolateral infarct , | | | | | | age undeterminedAbnormal | | | | | | ECGNo previous ECGs | | | | | | availableThis ECG | | | | | | contains Unconfirmed | | | | | | Interpretation | | | | | | Statements. See ED | | | | | | Record for Physician | | | | | | Interpretation. | | | | | | Confirmed by MUSE READ | | | | | | ONLY, -COMPUTER ([id number]), | | | | | | graphics editor Yahaira Chicas | | | | | | ([id number]) on 03/07/2018 5:57:49 | | | | | | AM | | | | + + + + + + + + | Specimen | + + | | + + + + + | Narrative | Performed At | + + + | Historically converted procedure from [facility] Epic environment | EXTERNAL LAB | + + + + +---------+ + + | Performing | Address | City/State/Zipcode | Phone Number | | Organization | | | | + +---------+ + + | EXTERNAL LAB | | | | + +---------+ + + CT Head w Contrast (03/06/2018 4:11 PM PDT) + + | Specimen | + + | | + + + + + | Narrative | Performed At | + + + | This is a non-reportable procedure without a radiologist report and | | | is used for image storage only | | + + + + + | Procedure Note | + + | Josh Quinteros Laverne - 06/18/2019 7:33 AM PDT This is a non-reportable procedure | | without a radiologist report and isused for image storage only | + + CT Head wo Contrast (03/06/2018 4:08 PM PDT) + + | Specimen | + + | | + + + + + | Narrative | Performed At | + + + | This is a non-reportable procedure without a radiologist report and | | | is used for image storage only | | + + + + + | Procedure Note | + + | Josh Quinteros - 06/18/2019 7:33 AM PDT This is a non-reportable procedure | | without a radiologist report and isused for image storage only | + + documented in this encounter Visit Diagnoses + + | Diagnosis | + + | Diagnosis unknown Other unknown and unspecified cause of morbidity or mortality | + + | Intracranial hemorrhage (HCC) Unspecified intracranial hemorrhage | + + | Hyperglycemia Other abnormal glucose | + + | Elevated blood pressure reading Elevated blood pressure reading without diagnosis of | | hypertension | + + | Morbid obesity due to excess calories (HCC) | + + | Cerebrovascular accident (CVA), unspecified mechanism (HCC) | + + documented in this encounter
--- OUTSIDE RECORDS SUMMARY | ~2020-04-13 | XMS | Encounter Summary ---
Demographics + + + | Address | [address] | | | [place] [address] | + + + | Home Phone | | + + + | Preferred Language | Unknown | + + + | Marital Status | | + + + | Yazidism Affiliation | CHR | + + + | Race | White | + + + | Ethnic Group | Not or | + + + Author + + + | Author | [facility] | + + + | Organization | [facility] | + + + | Address | Unknown | + + + | Phone | Unavailable | + + + Support + + + + + | Name | Relationship | Address | Phone | + + + + + | Tico Burns | ECON | [address] | | | | | [place], [place] | | | | | [address] | | + + + + + Care Team Providers + +------+ + | Care Numerical Control Tool Programmer Name | Role | Phone | + +------+ + | Moe Bella MD | PCP | | + +------+ + Encounter Details +--------+ + + + + | Date | Type | Department | Care Team | Description | +--------+ + + + + | 03/14/ | Abstract | Dig[facility]ive [facility] | Jesus Perez, | | | 2012 | | [facility] [address] | [address] | | | | | [address] | [address] | | | | | Mailcode: Center | [place], [place] | | | | | [facility] and | [address] | | | | | [facility] [address] | [phone] | | | | | [place], [place] | | | | | | [address] | | | | | | [phone] | | | +--------+ + + + [...]
--- OUTSIDE RECORDS SUMMARY | ~2020-04-13 | XMS | Encounter Summary ---
Demographics + + + | Address | [address] | | | [place] [address] | + + + | Home Phone [...] + + | Author | [facility] | | | and [place] | + + + | Organization | [facility] | | | and [place] | + + + | Address | Unknown | + + + | Phone | Unavailable | + + + Support + + + + + | Name | Relationship | Address | Phone | + + + + + | Milady Burns | ECON | [address] | | | | | [place] | | | | | [address] | | + + + + + Care Team Providers + +------+ + | Care Chef De Partie Name | Role | Phone | + [...] | | [address] | [place] [address] | | | | | [place] | [phone] | | | | | [address] | | | | | | [phone] | | | +--------+ + + + [...]
--- OUTSIDE RECORDS SUMMARY | ~2020-04-13 | XMS | Encounter Summary ---
Demographics + + + | Address | [address] | | | [place] [address] | + + + | Home Phone | | + + + | Preferred Language | Unknown | + + + | Marital Status | | + + + | Protestant Affiliation | 1013 | + + + | Race | Unknown | + + + | Ethnic Group | Unknown | + + + Author + + + | Author | [facility] | | | and [place] | + + + | Organization | [facility] | | | and [place] | + + + | Address | Unknown | + + + | Phone | Unavailable | + + + Support + + + + + | Name | Relationship | Address | Phone | + + + + + | iMlady Burns | ECON | [address] | | | | | [place], [place] | | | | | [address] | | + + + + + Care Team Providers + +------+ + | Care Client Reporting Associate Name | Role | Phone | [...] | | [address] | [place] [address] | | | | | [place] | [phone] | | | | | [address] | | | | | | [phone] | | | +--------+ + + + [...]
--- OUTSIDE RECORDS SUMMARY | ~2020-04-13 | XMS | Encounter Summary ---
Demographics + + + | Address | [address] | | | [place] [address] | + + + | Home Phone | | + + + | Preferred Language | Unknown | + + + | Marital Status | | + + + | Rastafarian Affiliation | 1013 | + + + | Race | Unknown | + + + | Ethnic Group | Unknown | + + + Author + + + | Author | [facility] | | | and [place] | + + + | Organization | [facility] | | | and [place] | + + + | Address | Unknown | + + + | Phone | Unavailable | + + + Support + + + + + | Name | Relationship | Address | Phone | + + + + + | Milady Burns | ECON | [address] | | | | | [place] | | | | | [address] | | + + + + + Care Team Providers + +------+ + | Care Poured Pipe Maker Name | Role | Phone | + +------+ + | Moe Bella MD | PCP | | + +------+ + Reason for Visit + + + | Reason | Comments | + + + | Pre-op Exam | cervical fusion scheduled 06/01/16 | + + + Encounter Details +--------+---------+ + + + | Date | Type | Department | Care Team | Description | +--------+---------+ + + + | 05/10/ | Office | [facility] | Jose Mirza | Cervical spondylosis | | 2016 | Visit | NEUROSURGERY [address] | with radiculopathy | | | | [address] | [address] | (Primary Dx); | | | | [place], [place] | [place] [address] | Foraminal stenosis | | | | [address] | [phone] | of cervical region; | | | | [phone] | | Degenerative disc | | | | | | disease, cervical; | | | | | | Left arm weakness | +--------+---------+ + + + Social [...] + + + | Blood Pressure | 144/78 | 05/10/2016 7:59 AM | | | | | PDT | | + + + + + | Pulse | 71 | 05/10/2016 7:59 AM | | | | | PDT [...] Weight | 188.7 kg (416 lb) | 05/10/2016 7:59 AM | patient reported | | | | PDT | weight. Scale unable | | | | | to get accurate | | | | | weight | + + + + + | Height | 175.3 cm (5' 9") | 05/10/2016 7:59 AM | | | | | PDT | | + + + + + | Body Mass Index | 61.43 | 05/10/2016 7:59 AM | | | | | PDT | | + + + + + documented in this encounter Patient Instructions Patient Instructions Jose Mirza PA - 05/10/2016 8:16 AM PDTDo not eat or drink anything after midnight the night before your surgery. If you have any changes in your heal th between now and the time of surgery please let us know documented in this encounter Progress Notes Jose Mirza PA - 05/10/2016 8:19 AM PDTFormatting of this note might be differen t from the original. ERIC Maldonado [address], [address] [place], [place] [address] FAX: NEUROSURGERY HISTORY AND PHYSICAL EXAMINATION CHIEF COMPLAINT: Chief Complaint Patient presents with Pre-op Exam cervical fusion scheduled 06/01/16 HISTORY OF PRESENT ILLNESS: The patient is a 51 y.o. male with the complaint of arm weakne ss and neck and arm pain symptoms that began Several months. Patient was previously seen in our office. We are now planning to proceed with anterior cervical fusion. He has had no s ignificant changes in his arm symptoms. He does have some overlying shoulder issues as well . The patient describes no event but the sudden onset of severe left arm and shoulder pain an d profound weakness of his left deltoid and arm. The symptoms have been unchanged in his strength. His pain was a 9/10 and is now a 4-7 /10 . He rates the pain as moderate. The symptoms are continuous. He describes the pain as sh graciela, numbing, aching and throbbing. The patient describes arm symptoms that occur on primarily on the left. The arm symptoms a ccount for over half of his symptoms. The arm symptoms are constant, and the symptoms trave l from the neck into the shoulders. The patient also describes the loss of strength in the arm and numbness of the arm. The patient does not report any change in bowel or bladder function recently. His symptoms improve with rest and changing position. His symptoms worsen with bending and twisting. He has tried Massage, Opioids and NSAIDS. The patient is not currently taking opioids. Th deisi measures have failed to help in any way. 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 TOMAS MICROLET LANCETS MISC Use as directed cloNIDine (CATAPRES) 0.1 mg tablet Take 0.1 mg by mouth 2 times daily. ergocalciferol (ERGOCALCIFEROL) 20703 UNITS capsule Take 50,000 Units by mouth Once a w mcgrath. FLUoxetine (PROZAC) 20 mg capsule Take 20 mg by mouth Daily. Glucose Blood ([employer] BREEZE 2 TEST) DISK Use as directed insulin glargine (LANTUS) 100 units/mL injection Inejct 60 units at bedtime insulin lispro (HUMALOG) 100 units/mL injection (vial) Inject under the skin 3 times d aily (before meals). levothyroxine (SYNTHROID) 50 mcg tablet Take 50 mcg by mouth Daily. levothyroxine (SYNTHROID, LEVOTHROID) 200 mcg tablet Take 200 mcg by mouth every mornin g (before breakfast). losartan-hydrochlorothiazide (HYZAAR) 100-25 MG per tablet Take 100-25 mg by mouth Arya y. metoprolol (TOPROL XL) 200 MG 24 hr tablet Take 200 mg by mouth Daily. metoprolol tartrate (LOPRESSOR) 100 mg tablet Take 100 mg by mouth 2 times daily. pramlintide (SYMLINPEN 120) 1000 MCG/ML injection Inject 120 mcg three times daily befo re meals rosuvastatin (CRESTOR) 40 MG tablet Take 40 mg by mouth Daily. No current facility-administered medications for this visit. ALLERGIES: Allergies Allergen Reactions Codeine Sulfate Itching and Rash SOCIAL HISTORY: The patient reports that he has never smoked. He has never used smokeless tobacco. He repo rts that he drinks alcohol. He reports that he does not use illicit drugs. FAMILY HISTORY: Family History Problem Relation Age of Onset Arthritis Mother Cancer Other GRANDMOTHER Diabetes Other GRANDMOTHER Heart disease Other GRANDMOTHER Hypertension Paternal Grandfather Colon cancer Maternal Grandfather Diabetes Maternal Aunt REVIEW OF SYSTEMS GENERALLY: No fever, no night sweats, no anemia, no fatigue, no recent profound weight ch anges. EYES: No eye problems, +use of corrective lenses, no eye injury, no double vision, no blin dness. EARS, NOSE, AND THROAT: No changes in taste or smell, no hearing difficulty, no ringing in the ears, no ear drainage, no dizziness, no voice changes, no difficulty swallowing, no sig nificant snoring, + sleep apnea, no sinus problems, no major dental work. NEUROLOGICALLY: Please see the review of systems discussed above in the history of present illness. In addition, the patient has numbness/pain of arms, numbness/pain of legs, awake with numbness/pain, pain neck. PSYCHIATRIC: + depression, no sleep disorders, no [...] painful or difficult urination, no incontinence. ENDOCRINE: + diabetes, + thyroid disease, no osteopenia or osteoporosis, no breast drainag e. SKIN: No breast lumps, no skin changes, no rashes, no itches. HEMATOLOGIC/LYMPHATIC: No enlarged lymph nodes, no easy or unusual bleeding, no personal h istory of cancer. RHEUMATOLOGIC: No joint arthritis, no rheumatoid arthritis. PHYSICAL EXAMINATION: Blood pressure 144/78, pulse 71, height 1.753 m (5' 9"), weight 188.696 kg (416 lb). Body m ass index is 61.4 kg/(m^2). GENERAL: Gerard Burns is in no acute distress with unlabored respirations. The pat ient does appear uncomfortable throughout the exam today. HEENT: Head: Normocephalic/atraumatic with no areas of recent trauma. Eyes: Normal sclerae without icterus. Ears: No drainage or tenderness. Nasopharnyx: Clear without drainage. Oropharnyx: Clear without erythema. NECK (ANTERIOR): Supple and without palpable masses. CHEST: Clear to ausculation without crackles or wheeze. HEART: Regular rate and rhythm without murmurs. ABDOMEN: Soft, non-tender, non-distended, and without palpable masses. The patient is obese . SPINE: There is tenderness in the midline of the cervical spine at the C-4 and C-5. There is no tenderness of there thoracic or lumbar spine. There is no major deformity noted. EXTREMITIES: No cyanosis, clubbing, but edema is present in L>R LE. Distal pulses are palp able. NEUROLOGICAL EXAM: MENTAL STATUS: The patient is awake, alert, and oriented. He follows simple and complex commands. His speech is fluent, he comprehends speech well, and he repeats well. He has no apparent deficits with short or halfway memory. CRANIAL NERVES: II: Acuity is intact. [...] limited MUSCLE/ MOVEMENT: RIGHT LEFT Deltoids 5 3 Biceps 5 4- Triceps 5 5 Wrist Flexion 5 4 Long Distance Operator Strength 5 4 Hip Flexion 5 5 Hip Extension 5 5 Knee Flexion 5 5 Knee Extension 5 5 Dorsiflexion 5 5 Extensor Hallicus Longus 5 5 Plantarflexion 5 5 SENSORY EXAM: Sensory exam shows no diminished sensation to light touch or pain throughout the upper and lower extremities. REFLEXES: (2 OR 2+ IS NORMAL) REFLEX: RIGHT LEFT BICEPS 1 1 BRACHIORADIALIS 1 1 TRICEPS 1 1 PATELLAR 1 1 ACHILLES 1 1 PRATHER'S ABSENT ABSENT PLANTAR DOWNGOING DOWNGOING GAIT: Gait is steady. TEST AND RADIOGRAPHIC REVIEW: The patient's imaging was reviewed in detail with the patient today during the visit. The MRI from 2016 shows C4-5 left disc herniation with left canal narrowing and left severe fora michael stenosis. C5-6 and C6-7 show moderate to severe spondylosis with bilateral foraminal stenosis. Cervical x-rays show degeneration but no major instability. ASSESSMENT: NEUROSURGICAL DIAGNOSES: Encounter Diagnoses Name Primary? 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 The patient has severe weakness that has not improved with 3 months of conservative care. I had a lengthy discussion with the patient about his options for care including surgical a nd non-surgical options. In discussing the surgical options, we discussed in detail the patient's options for an ant erior cervical disectomy and fusion at 4-7. The patient understands that in most instances the recovery from surgery can be lengthy and sometimes difficult. We discussed the risks, alternatives, and benefits to surgical intervention with Mr. Cerna on in clinic. These risks included but were not limited to , stroke, heart attack, num bness, weakness, paralysis, failure of fusion, failure of hardware, subsidence, adjacent seg ment degeneration, cerebrospinal fluid leak, bleeding, infection, injury to surrounding tiss ues and organs, injury from positioning, injury to the nerves, difficulty with breathing, di fficulty with swallowing, difficulty with voice change, and need for additional surgery. Surgical options were discussed and the technique to be employed was described in detail to him. All his questions were answered. We discussed that the goal of the surgery is to prevent progression of his disease, but it is not considered a cure. We also discussed that although some patients may obtain 100% sym ptom relief, it is realistic to anticipate that some symptoms will continue postoperatively despite a successful surgery. We also discussed that there is no guarantee that surgery will provide improvement in his c ondition, and indeed may even worsen the symptoms. We also discussed that in the course of the procedure the operative plan may be altered to include more, less, or different levels d epending upon findings in order to provide him with the best possible outcome. I recommend and would prescribe a cervical collar before surgery to improve his stability n ow to support his weak muscles and to reduce pain by restricting mobility. For multiple (more than 1 level fusions), I recommend the use of a bone growth stimulator p ostoperatively. This is to improve the probability and rate of fusion. He has the additional risks associated with his severe morbid obesity. I discussed preoper ative evaluation by anesthesia and also a re-evaluation of his airway and vocal cords by Dr. Lechuga, Sr. ELECTRONICALLY SIGNED BY: ERIC Maldonado, 05/10/2016 8:22 documented in th is encounter Plan of Treatment Not on filedocumented as of this encounter Visit Diagnoses + + | Diagnosis | + + | Cervical spondylosis with radiculopathy - Primary Cervical spondylosis with | | myelopathy | + + | Foraminal stenosis of cervical region Spinal stenosis in cervical region | + + | Degenerative disc disease, cervical Degeneration of cervical intervertebral disc | + + | Left arm weakness Other musculoskeletal symptoms referable to limbs | + + documented in this encounter
--- OUTSIDE RECORDS SUMMARY | ~2020-04-13 | XMS | Encounter Summary ---
Demographics + + + | Address | [address] | | | [place] [address] | + + + | Home Phone | | + + + | Preferred Language | Unknown | + + + | Marital Status | | + + + | Methodist Affiliation | CHR | + + + | Race | White | + + + | Ethnic Group | Not or | + + + Author + + + | Author | [facility] | + + + | Organization | [facility] | + + + | Address | Unknown | + + + | Phone | Unavailable | + + + Support + + + + + | Name | Relationship | Address | Phone | + + + + + | Tico Burns | ECON | [address] | | | | | [place], [place] | | | | | [address] | | + + + + + Care Team Providers + +------+ + | Care Piping Engineer Name | Role | Phone | + +------+ + | Moe Bella MD | PCP | | + +------+ + Reason for Visit + + + | Reason | Comments | + + + | Scheduling | discuss surgical options | + + + Encounter Details +--------+ + + + + | Date | Type | Department | Care Team | Description | +--------+ + + + + | 10/17/ | Telephone | Digestive Health | Violetta Byers, | Scheduling (discuss | | 2011 | | Center at [facility] [address] | FILTER WASHER [address] | surgical options) | | | | [address] | , [address] | | | | | Mailcode: Center | [place], [place] | | | | | for Health and | [address] | | | | | [facility] [address] | [phone] | | | | | [place], [place] | | | | | | [address] | | | | | | [phone] | | | +--------+ + + + [...]
--- OUTSIDE RECORDS SUMMARY | ~2020-04-13 | XMS | Encounter Summary ---
Demographics + + + | Address | [address] | | | [place] [address] | + + + | Home Phone | | + + + | Preferred Language | Unknown | + + + | Marital Status | | + + + | Scientologist Affiliation | CHR | + + + | Race | White | + + + | Ethnic Group | Not or | + + + Author + + + | Author | [facility] | + + + | Organization | [facility] | + + + | Address | Unknown | + + + | Phone | Unavailable | + + + Support + + + + + | Name | Relationship | Address | Phone | + + + + + | Tico Burns | ECON | [address] | | | | | [place], [place] | | | | | [address] | | + + + + + Care Team Providers + +------+ + | Care Cocoa Butter Filter Operator Name | Role | Phone | [...] | | | | CONSULT TO | [place], [place] | [facility] and | | | | | BARIATRIC | [address] | Healing, | | | | | SURGERY | Phone: | Building [address] | | | | | | [phone] | [place], [place] | | | | | | Fax: | [address] | | | | | | [phone] | Phone: | | | | | | | [phone] | | | | | | | Fax: | | | | | | | [phone] | +--------+--------+ + + + + Encounter Details +--------+---------+ + + + | Date | Type | Department | Care Team | Description | +--------+---------+ + + + | 01/30/ | Office | Dig[facility]ive Health | Joaquina Tom, | Morbid obesity with | | 2017 | Visit | Center at [facility] [address] [facility] | BMI of 60.0-69.9, | | | | [address] [facility] | [address] | adult (HCC) (Primary | | | | for Health and | [place], [place] | Dx) | | | | [facility] [address] | [address] | | | | | [place], [place] | [phone] | | | | | [address] | | | | | | [phone] | | | +--------+---------+ + + + [...] Follow-Up Patient referred by: Moe Bella MD [facility] [address] [facility] [address] Documented time of visit: 12:16 pm to 12:53pm (37 minutes [id number] with patient) Surgery: Sleeve Gastrectomy Date of [...] by a quart of water Dinner: ~6pm albanian rice, roth, pork, steamed carrots, drank 1-2 [...] a time; got bett er orthotics from broomcorn scraper - picks them up next week Hovering [...] Tom RD, CNSC, LD Clinical Dietitian Specialist [facility] Office: Email: [email or web address] Pager: [phone] documented in this en counter Plan of Treatment Not on filedocumented as of this encounter Procedures + +--------+ + + + | Procedure Name | Priori | Date/Time | Associated Diagnosis | Comments | | | ty | | | | + +--------+ + + + | [place] MNT RE-ASSESSMNT | Routin | 01/30/2017 | [...]
--- OUTSIDE RECORDS SUMMARY | ~2020-04-13 | XMS | Encounter Summary ---
Demographics + + + | Address | [address] | | | [place] [address] | + + + | Home Phone | | + + + | Preferred Language | Unknown | + + + | Marital Status | | + + + | Zoroastrianism Affiliation | CHR | + + + [...] + | Tico Burns | ECON | [address] | | | | | [place], [place] | | | | | [address] | | + + + + + Care Team Providers + +------+ + | Care Drug Inspector Name | Role | Phone | + +------+ + | Moe Bella MD | PCP | | + +------+ + Encounter Details +--------+ + + + + | Date | Type | Department | Care Team | Description | +--------+ + + + + | 04/02/ | Abstract | Digestive Health | Violetta Byers, | | | 2011 | | Center at [facility] [address] | CORPORATE STATISTICAL FINANCIAL ANALYST [address] | | | | | [address] | [facility] [address] | | | | | Mailcode: Center | [place], [place] | | | | | for Health and | [address] | | | | | [facility], [facility] [address] | [phone] | | | | | [place], [place] | | | | | | [address] | | | | | | [phone] | | | +--------+ + + + [...]
--- OUTSIDE RECORDS SUMMARY | ~2020-04-13 | XMS | Encounter Summary ---
Demographics + + + | Address | [address] | | | [place] [address] | + + + | Home Phone | | + + + | Preferred Language | Unknown | + + + | Marital Status | | + + + | Yazidi Affiliation | CHR | + + + [...] + | Tico Burns | ECON | [address] | | | | | [place], [place] | | | | | [address] | | + + + + + Care Team Providers + +------+ + | Care Flight Surgeon Name | Role | Phone | + +------+ + | Moe Bella MD | PCP | | + +------+ + Encounter Details +--------+ + + + + | Date | Type | Department | Care Team | Description | +--------+ + + + + | 02/12/ | Telephone | Dig[facility]ive Health | Jesus Perez, | | | 2012 | | [facility] [address] | [address] [facility] | | | | | [address] [place] | [address] | | | | | Mailcode: Chancellor | [place], [place] | | | | | [facility] and | [address] | | | | | [facility] [address] | [phone] | | | | | [place], [place] | | | | | | [address] | | | | | | [phone] | | | +--------+ + + + [...]
--- OUTSIDE RECORDS SUMMARY | ~2020-04-13 | XMS | Encounter Summary ---
Demographics + + + | Address | [address] | | | [place] [address] | + + + | Home Phone | | + + + | Preferred Language | Unknown | + + + | Marital Status | | + + + | Restorationism Affiliation | 1013 | + + + | Race | Unknown | + + + | Ethnic Group | Unknown | + + + Author + + + | Author | [facility] | | | and [place] | + + + | Organization | [facility] | | | and [place] | + + + | Address | Unknown | + + + | Phone | Unavailable | + + + Support + + + + + | Name | Relationship | Address | Phone | + + + + + | Milady Burns | ECON | [address] | | | | | [place] | | | | | [address] | | + + + + + Care Team Providers + +------+ + | Care Numerical Analysis Group Manager Name | Role | Phone | + +------+ + | Moe Bella MD | PCP | | + +------+ + Reason for Visit +---------+ + | Reason | Comments | +---------+ + | Post Op | 15M PO | +---------+ + Encounter Details +--------+---------+ + + + | Date | Type | Department | Care Team | Description | +--------+---------+ + + + | 08/22/ | Office | [facility] | Chauncey Lee MD | S/P cervical spinal | | 2017 | Visit | NEUROSURGERY [address] | [address] | fusion (Primary Dx) | | | | [address] | [place] [address] | | | | | [place], [place] | [phone] | | | | | [address] | | | | | | [phone] | Ever Swenson, | | | | | | PA-C [address] | | | | | | [address] [place] | | | | | | [place] [address] | | | | | | [phone] | | | | | | | [...] + + + | Blood Pressure | 157/94 | 08/22/2017 4:04 PM | | | | | PDT | | + + + + + | Pulse | 89 | 08/22/2017 4:04 PM | | | | | PDT [...] + + + + | Weight | 207.1 kg (456 lb 9.2 | 08/22/2017 4:04 PM | | | | oz) | PDT | | + + + + + | Height | 175.3 cm (5' 9") | 08/22/2017 4:04 PM | | | | | PDT | | + + + + + | Body Mass Index | 67.42 | 08/22/2017 4:04 PM | | | | | PDT | | + + + + + documented in this encounter Progress Notes Ever Swenson PA-C - 08/22/2017 3:30 PM PDTFormatting of this note might be diffe rent from the original. Ever Swenson PA-C [address] [facility], [address] [place] [address] FAX: NEUROSURGERY FOLLOW-UP CHIEF COMPLAINT: Chief Complaint Patient presents with Post Op 15M PO HISTORY OF PRESENT ILLNESS: The patient is a 52 y.o. male that had a cervical fusion for r adiculopathy around 15 months ago. He returns and overall is doing well. The patient comp lains of some mild neck pain intermittently with his activities. He does note his left arm going slightly weak whenever he reaches for things in a high cabinet. He has not noticed. The patient has not been walking as much as directed. He lives a very sedentary lifestyle. The patient has had no issues with his surgical site. CURRENT MEDICATIONS: Current Outpatient Prescriptions Medication Sig Dispense Refill aspirin 81 MG tablet Take 81 mg by mouth Daily. TOMAS MICROLET LANCETS MISC Use as directed calcium citrate-vitamin D3 (CITRACAL PETITES/VITAMIN D) 200-250 mg-unit tablet Take by mouth. cloNIDine (CATAPRES) 0.1 mg tablet Take by mouth. Cyanocobalamin (VITAMIN B12 PO) Take 50,000 Units by mouth every 7 days. cyclobenzaprine (FLEXERIL) 10 mg tablet Take 1 tablet by mouth every 8 hours as needed for Muscle spasms. 90 tablet 3 ergocalciferol (ERGOCALCIFEROL) 37952 UNITS capsule Take 50,000 Units by mouth Once a w absentee-shawnee. FLUoxetine (PROZAC) 20 mg capsule Take 20 mg by mouth Daily. gabapentin (NEURONTIN) 300 mg capsule Take by mouth. Glucose Blood ([employer] BREEZE 2 TEST) DISK Use as directed [...] Multiple Vit-C-FA (CHILDRENS CHEWABLE VITAMINS) CHEW Take by mouth. polyethylene glycol (MIRALAX) powder Take by mouth. rosuvastatin (CRESTOR) 40 MG tablet Take 40 mg by mouth Daily. VICTOZA 18 MG/3ML injection No current facility-administered medications for this visit. ALLERGIES: Allergies Allergen Reactions Codeine Sulfate Itching and Rash SOCIAL HISTORY: The patient reports that he has never smoked. He has never used smokeless tobacco. He repo rts that he drinks alcohol. He reports that he does not use drugs. REVIEW OF SYSTEMS GENERALLY: No fever, no night sweats, no anemia, no fatigue, + recent profound weight phill nges. EYES: + eye problems, no use of corrective lenses, no eye injury, no double vision, no bli ndness. EARS, NOSE, AND THROAT: No changes in taste or smell, no hearing difficulty, no ringing in the ears, no ear drainage, no dizziness, no voice changes, no difficulty swallowing, no sig nificant snoring, + sleep apnea, no sinus problems, + major dental work. NEUROLOGICALLY: Please see the review of systems discussed above in the history of present illness. In addition, the patient has weakness. PSYCHIATRIC: No depression, no sleep disorders, no anxiety, no bipolar disorder, no psycho tic episodes. CARDIOVASCULAR: No heart attacks, no heart [...] RHEUMATOLOGIC: No joint arthritis, no rheumatoid arthritis. INTERIM PHYSICAL EXAMINATION: Blood pressure (!) 157/94, pulse 89, height 1.753 m (5' 9"), weight (!) 207.1 kg (456 lb 9. 2 oz). Body mass index is 67.42 kg/m. GENERAL: Gerard Burns is in no [...] of pseudoarthrosis is s uggested. ASSESSMENT: Encounter Diagnosis Name Primary? 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 Most of the preoperative symptoms are resolving as exp ected. I'm happy to see at least some future fusion at C4-5 and C5-6. C6-7 seems to still have some degrees of pseudoarthrosis. This may be contributing to a portion of his neck yuliya n. The patient seems to have stable symptoms as of now. We discussed that in the future if he has worsening symptoms or pain, we'll be happy to see him back in the office for further wo rkup and evaluation. We should continue with watchful waiting and hoping that he continues to fuse at C6-7. ELECTRONICALLY SIGNED BY: Ever Swenson PA-C, 08/22/2017 16:42 documented in this encounter Plan of Treatment Not on filedocumented as of this encounter Visit Diagnoses + + | Diagnosis | + + | S/P cervical spinal fusion - Primary Arthrodesis status | + + documented in this encounter
--- OUTSIDE RECORDS SUMMARY | ~2020-04-13 | XMS | Encounter Summary ---
Demographics + + + | Address | [address] | | | [place] [address] | + + + | Home Phone | | + + + | Preferred Language | Unknown | + + + | Marital Status | | + + + | Mandaeism Affiliation | 1013 | + + + | Race | Unknown | + + + | Ethnic Group | Unknown | + + + Author + + + | Author | [facility] | | | and [place] | + + + | Organization | [facility] | | | and [place] | + + + | Address | Unknown | + + + | Phone | Unavailable | + + + Support + + + + + | Name | Relationship | Address | Phone | + + + + + | Milady Burns | ECON | [address] | | | | | [place] | | | | | [address] | | + + + + + Care Team Providers + +------+ + | Care Middle School Director Name | Role | Phone | + +------+ + | Moe Bella MD | PCP | | + +------+ + Encounter Details +--------+ + + + + | Date | Type | Department | Care Team | Description | +--------+ + + + + | 05/10/ | Hospital | [facility] | Chauncey Lee MD | Cervical spondylosis | | 2016 | Encounter | MED CTR XRAY [address] | with radiculopathy; | | | | [place] | [place] [address] | Morbid obesity, | | | | [place] [address] | [phone] | unspecified obesity | | | | [phone] | | type (HCC); | | | [...] | | | 12 | | | [address] UNITS capsule | | | | | [...] +--------+ + + + | XR CHEST PA AND | Routin | 05/10/2016 | Cervical | Results for this | | LATERAL | e | 4:07 PM | spondylosis with | procedure are [...] + documented in this encounter Results XR Chest PA and Lateral (05/10/2016 4:07 PM PDT) + + | Specimen | + + | | + + + + + | Narrative | Performed At | + + + | XR CHEST PA AND LATERAL. 05/10/2016 4:07 PM HISTORY: | [facility] | | preoperative clearance . COMPARISON: None available. | . [facility] | | FINDINGS: Heart size within normal [...] + + | [address] | [address] | [place] | [phone] | | [facility] | | [address] | | | - IMAGING | | [...]
--- OUTSIDE RECORDS SUMMARY | ~2020-04-13 | XMS | Encounter Summary ---
Demographics + + + | Address | [address] | | | [place] [address] | + + + | Home Phone | | + + + | Preferred Language | Unknown | + + + | Marital Status | | + + + | Sikhism Affiliation | CHR | + + + | Race | White | + + + | Ethnic Group | Not or | + + + Author + + + | Author | [facility] | + + + | Organization | [facility] | + + + | Address | Unknown | + + + | Phone | Unavailable | + + + Support + + + + + | Name | Relationship | Address | Phone | + + + + + | Tico Burns | ECON | [address] | | | | | [place], [place] | | | | | [address] | | + + + + + Care Team Providers + +------+ + | Care Plate Driller Name | Role | Phone | + +------+ + | Moe Bella MD | PCP | | + +------+ + Reason for Visit + + + | Reason | Comments | + + + | Medical Records | [facility] - OUTSIDE LAB: lipid panel, [...] | | Center at [facility] [address] | FITNESS TRAINER [address] | Review ([facility] - | | | | [address] | , [address] | OUTSIDE LAB: lipid | | | | Mailcode: Art | [place], [place] | panel, CMP, | | | | for Health and | [address] | hemoglobin, | | | | Healing, [address] | [phone] | thyroglobulin | | | | [place], [place] | | 11/03/2013, | | | | [address] | | 12/19/2013, | | | | [phone] | | 03/23/2014) | +--------+ + + [...]
--- OUTSIDE RECORDS SUMMARY | ~2020-04-13 | XMS | Encounter Summary ---
Demographics + + + | Address | [address] | | | [place] [address] | + + + | Home Phone [...] + | Tico Burns | ECON | [address] | | | | | [place], [place] | | | | | [address] | | + + + + + Care Team Providers + +------+ + | Care Commercial Truck Driver Name | Role | Phone | + +------+ + | Moe Bella MD | PCP | | + +------+ + Encounter Details +--------+ + + + + | Date | Type | Department | Care Team | Description | +--------+ + + + + | 04/24/ | Hospital | Diagnostic | | | | 2012 | Encounter | Radiology at [facility] | | | | | | [address] | | | | | | [address] | | | | | | [place], [address]th Floor | | | | | | [place], [place] | | | | | | [address] | | | | | | [phone] | | | +--------+ + + + [...] | 2 | 04/14/20 | | | 100 unit/mL | under [...] | + +--------+ + + + | US SOFT TISSUE HEAD | Routin | 04/24/2013 | Follow-up exam | Results for this | | & NECK | e | 9:03 AM | Thyroid cancer (HCC) | procedure are in the | | | | PDT | S/P thyroidectomy | results section. | + +--------+ + + + documented in this encounter Results US SOFT TISSUE HEAD [...] | | | | | signed / CARIDAD Rosas | | | | [...] | | + +---------+ + + | [facility] DEPARTMENT OF | | | | | RADIOLOGY | | | | + +---------+ + + documented in this encounter Visit Diagnoses + + | Diagnosis | + + | Follow-up exam Unspecified follow-up examination | + + | Thyroid cancer (HCC) Malignant neoplasm of thyroid gland | + + | S/P thyroidectomy Other postprocedural status | + + documented in this encounter"
--- OUTSIDE RECORDS SUMMARY | ~2020-04-13 | XMS | Encounter Summary ---
Demographics + + + | Address | [address] | | | [place] [address] | + + + | Home Phone | | + + + | Preferred Language | Unknown | + + + | Marital Status | | + + + | Anabaptist Affiliation | CHR | + + + [...] + | Tico Burns | ECON | [address] | | | | | [place], [place] | | | | | [address] | | + + + + + Care Team Providers + +------+ + | Care Insurance Claims Analyst Name | Role | Phone | + +------+ + | Moe Bella MD | PCP | | + +------+ + Encounter Details +--------+ + + + + | Date | Type | Department | Care Team | Description | +--------+ + + + + | 09/18/ | Documentati | [facility] | [facility], | | | 2011 | on | Center at [address] | ANP | | | | | [address] | | | | | | Mailcode: [place] | | | | | | for Health and | | | | | | Healing, [address] | | | | | | [place], [place] | | | | | | [address] | | | | | | [phone] | | | +--------+ + + + [...]
--- OUTSIDE RECORDS SUMMARY | ~2020-04-13 | XMS | Encounter Summary ---
Demographics + + + | Address | [address] | | | [place] [address] | + + + | Home Phone | | + + + | Preferred Language | Unknown | + + + | Marital Status | | + + + | Buddhist Affiliation | CHR | + + + [...] + | Tico Burns | ECON | [address] | | | | | [place], [place] | | | | | [address] | | + + + + + Care Team Providers + +------+ + | Care Roller Coaster Operator Name | Role | Phone | [...] | | | | | | | [facility] for | | | | | | | Health and | | | | | | | Healing, | | | | | | | [address] | | | | | | | [place], [place] | | | | | | | [address] | | | | | | | Phone: | | | | | | | [phone] | | | | | | | Fax: | | | | | | | [phone] | +--------+--------+ + + + + Encounter Details +--------+---------+ + + + | Date | Type | Department | Care Team | Description | +--------+---------+ + + + | 04/10/ | Office | Dig[facility]ive [facility] | Jesus Fenton, | Panniculitis | | 2012 | Visit | Center at [facility] [address] | [address] | (Primary Dx) | | | | [address] | [place] | | | | | Mailcode: [place] | [place], [place] | | | | | [facility] and | [address] | | | | | [facility] [address] | [phone] | | | | | [place], [place] | | | | | | [address] | | | | | | [phone] | | | +--------+---------+ + + + [...] this encounter Patient Instructions Patient Instructions Natalie Kenyno RN - 04/10/2013 12:26 PM PDTPATIENT SURGERY INFORMATION [facility] General Surgery Office Toll-free: ext [phone] Surgery Date: April 11, 2013 Procedure: Removal [...] the surgery. Please see the list below, [facility] has a list of products that contain [...] from anyone by 7 pm please call [phone]. PARKING Parking for patients is available underneath the [facility] building. Parking is also available in the [facility] Parking structure located across from the emergency depart ment; patient parking available on level 1 and 3. Metered parking is available on the top [facility]. CHECKING IN FOR SURGERY Hospital Admission (in-patient): Admitting Desk 9th floor of [facility] TRANSPORTATION Day Surgery: If you have had [...] Please notify the general surgery office at [phone] as soon as possible should you nee [...] prior to your surgery. PRODUCTS CONTAINING ASPIRIN Leydi-Burns, Anacin, Anexsia with Codeine, Andynos, Aspirin, Aspirin suppositories, Ascrip tin, Aspergum, Axotal, B-A-C, Baby Aspirin, Bekah, BC Powder, Bexophene, Buffaprin, Bufferin , Buffinol, Cama-Arthritis Strength, Congespirin, Bristol, Coricidin, Damason, Darvon, Dristan, Terra-Gesic, Digel, Dolprin #3 Tablets, Donatab, Doxaphene, Duragesic, Easprin, Ecotrin, Emag rin Forte, Emiprin, Emprazil, Equagesic, Equazine M, Excedrin, Fiogesic, Fiorgen PH, Fiorice t, Fiorinal, 4-Way Cold Tablet Gemnisyn, Indocin, Liquprin, Lortab ASA, Magnaprin, Marnal, Meprobamate, Midol, Momentum, N orgesic, Milton, Orphengesic, Pabalate, P-A-C, Percodan, Presalin, Robaxasil, Roxiprin, Sabino eto, Salocol SK-65 Compound, Sine-Aid, Sine-Off,, [place], Supac, Talwin Compound, Trigesic, Tolectin , Traiminicin, Vanquish, ZORprin, Zomax PRODUCTS CONTAINING IBUPROFEN Advil, Aleve, Haltran, Medipren, Midol, Motrin, Naproxyn, Nuprin, Rufen OTHER PRODUCTS WHICH MAY PROMOTE BLEEDING Vitamin E, Gingko Biloba, Marine Fatty Acids, [place]-3 Fish Oil SupplementsElectronically si gned by [place] [...] HEALTH CENTER [address] Mailcode: [place] [id number] Maurice Duran M D - 04/10/2013 12:08 [...]
--- OUTSIDE RECORDS SUMMARY | ~2020-04-13 | XMS | Encounter Summary ---
Demographics + + + | Address | [address] | | | [place] [address] | + + + | Home Phone | | + + + | Preferred Language | Unknown | + + + | Marital Status | | + + + | Gnosticist Affiliation | CHR | + + + | Race | White | + + + | Ethnic Group | Not or | + + + Author + + + | Author | [facility] | + + + | Organization | [facility] | + + + | Address | Unknown | + + + | Phone | Unavailable | + + + Support + + + + + | Name | Relationship | Address | Phone | + + + + + | Tico Burns | ECON | [address] | | | | | [place], [place] | | | | | [address] | | + + + + + Care Team Providers + +------+ + | Care Dairy Farm Operator Name | Role | Phone | + +------+ + | Moe Bella MD | PCP | | + +------+ + Encounter Details +--------+ + + + + | Date | Type | Department | Care Team | Description | +--------+ + + + + | 12/13/ | Abstract | Dig[facility]ive [facility] | Violetta Byers, | | | 2012 | | Center at [facility] [address] | OIL FIELD LABORER [address] | | | | | [address] | [facility] [address] | | | | | Mailcode: Center | [place], [place] | | | | | for Health and | [address] | | | | | [facility], [facility] [address] | [phone] | | | | | [place], [place] | | | | | | [address] | | | | | | [phone] | | | +--------+ + + + [...]
--- OUTSIDE RECORDS SUMMARY | ~2020-04-13 | XMS | Encounter Summary ---
Demographics + + + | Address | [address] [facility] | | | [place] [address] | + + + | Home Phone [...] + | Tico Burns | ECON | [address] | | | | | [place], [place] | | | | | [address] | | + + + + + Care Team Providers + +------+ + | Care Retail Worker Name | Role | Phone | [...] LAPAROSCOPIC, OPEN | | | | [facility] | [facility] | EXPLORATORY | | | | Hospital Admitting | [place], [place] | LAPAROTOMY, LYSIS OF | | | | Desk Located on the | [address] | ADHESIONS, SLEEVE | | | | 9th floor | [phone] | GASTRECTOMY | | | | [place], [place] | | | | | | [address] | | | +--------+---------+ + + + [...] narcotic pain medications, please call the clinic ([phone] ) by 2 pm on for any [...] during the day time hours by calling [facility] surgery office at [phone] - After hours, weekends and holidays, you may call the hospital carbon furnace operator helper at [phone] an d have the carbon electrodes supervisor [place] Team for general surgery paged. Constipation Prevention [...] to add researl Dong, MD, PGY1 Anesthesia Tectonophysicist Pager [phone] Florencia Ivy MD - 01/10/2013 7:49 AM PSTSURGERY INPATIENT PROGRESS NOTE Hospital Day:2 Author; FLORENCIA KATHLEEN MD, MIS/Bariatric Fellow, Pager [phone] Attending Physician: Jesus Perez MD Surgical Issues: [...] BLOCK PROGRESS NOTE 01/10/2013 Author: Stephanie Horan CHIEF NURSING OFFICER POD# 2. Status post: 1. Attempted laparoscopic [...] and summary of old medical records (source: [email or web address]), as summarized in the body of the note. Stephanie Horan NP Adult Pain Service Pager [phone] Team Pager [phone] BILLING INFORMATION [facility] DEPARTMENT: [id number] Place of Service:- Inpatient Date of Service: 01/10/2013 CSN: [id number] Suggested Modifier: None Suggested CPT: 39591 - Daily mgmt epidural/subarachnoid drug administration Prolonged service: n/a Florencia Ivy MD - 01/09/2013 12:53 PM PSTSURGERY INPATIENT PROGRESS NOTE Hospital Day:1 Author; FLORENCIA KATHLEEN MD, MIS/Bariatric Fellow, Pager [phone] Attending Physician: Jesus Perez MD Surgical Issues: [...] days. Epidural per APS. Kalina Adame AC CHIEF NURSING OFFICER - 01/09/2013 11:29 AM PST Inpatient Progress [...] active bowel sounds, i ncision is intact, IT with serosang MS: Moves all extremities well, [...] DISPO - requires acute care CRISTIN HOBSON [facility] [address] [place] [address] This assessment and plan was formulated both [...] yet" /10 (cough, deep breath, movement). Mr. Burns is satisfied with current level of pain. [...] studies reviewed. STEPHANIE HORAN NP BILLING INFORMATION [facility] DEPARTMENT: [id number] Place of Service:- Inpatient Date of Service: 01/09/2013 CSN: [id number] Suggested Modifier: None Suggested CPT: 29953 - Daily mgmt epidural/subarachnoid drug administration Prolonged service: n/a Hedy Villa - 2012 6:46 AM PSTMedical student progress note Overnight events/S: Mr. Burns is feeling well this morning. He did not get a lot of sle ep due to noise on the floor, but his pain (2/10, achy pain around incision site) is well co ntrolled and he is only using his KENO MANAGER pump about once an hour. He has [...] oral meds and tolerating PO. Hedy Wood [id number] signed by CRISTIN Hobson at 01/10/2013 12:06 [...] RT Continue current care. Alfonso Sousa MD Party Plan Selling Distributor, PGY-1 Pager: [phone] [facility] [place] [address] [facility] [phone] ung, MD Yahaira - 01/08/2013 3:37 PM [...] BLADDER | ve | 12:45 PM | ([facility]) | | | HYDRODISTENSION | Surgic | [...] | | ve | 12:45 PM | ([facility]) | | | | Surgic | PST [...] - EVELIAAM | [address] | [place], [place] | | | TABLE [place] OF [facility] | [address] | [address] | | | TESTS | | | [...] [facility] | [address] | [place] [address] | | | SERVICES, CORE | PARK [...] [facility] | [address] | [place] [address] | | | SERVICES, CORE | TJ [...] [facility] | [address] | [place] [address] | | | SERVICES, CORE | PARK [...] [facility] | [address] | [place] [address] | | | SERVICES, CORE | PARK [...] | + + + + + | [facility] | [address] [facility] | [place] [address] | | | SERVICES, CORE | TJ [...] MARQUAM | [address] | [place], [place] | | | BRIANNA CONNOLLY OF [facility] | [address] | [address] | | | TESTS | | | [...] + + | [facility] | [address] [facility] [address] | [place], [place] | | | [facility] | [address] | [address] | | | TESTS | | | | + + + + + OPERATION RECORD (01/10/2013 8:03 AM PST) + + | Transcriptions | + + | Florencia Kathleen MD - 01/09/2013 7:00 PM PST Date: 01/08/2013 | | | | Attending Surgeon: Jesus Perez M.D. | | | | Volleyball Referee(s): Florencia Kathleen MD | | | | [...] | | | | Drains: | | IT in the left upper quadrant. | | [...] Biosyn and Indermil. Previously, a | | 19-Greenlandic round Delvin drain was placed to the [...] | | ME / HS | | [id number] / [id number] / [id number] / | | | | | + [...] [facility] | [address] | [place] [address] | | | SERVICES, CORE | PARK [...] [facility] | [address] | [place] [address] | | | SERVICES, CORE | PARK [...] | + + + + + | [facility] | [address] | [place] [address] | | | YVETTE, DAVEY | TJ [...] [facility] | [address] | [place] [address] | | | SERVICES, CORE | PARK [...] | + + + + + | [facility] | [address] | [place] [address] | | | SERVICES, CORE | TJ [...] YU | [address] | [place], [place] | | | B[facility]NA CON[facility] | [address] | [address] | | | TESTS | | | [...] | + + + + + | [facility] | [address] [facility] [address] | [place], [place] | | | [facility] | [address] | [address] | | | TESTS | | | [...] with | | some debris. A 14 Greenlandic Chau catheter over a wire. | | [...] draped in the usual sterile fashion. A 16-Greenlandic flexible | | Olympus cystoscope was advanced [...] | | An attempt to pass a 14-Greenlandic catheter over the wire, was also unsuccessful. | | The wire was removed and the cystoscope was replaced. A superstiff wire was | | then advanced into the meatus and bladder. The cystoscope was advanced | | over the wire into the patient's bladder. The above findings were noted. | | The cystoscope was removed. A 14-Greenlandic Councill catheter was then placed | | [...] | | | | Drains: | | 14-Greenlandic Chau catheter. | | | | Disposition: | | [place] for General Surgery procedure | | | | | | Yahaira Doran M.D. | | JS / JUS | | [id number] / [id number] / [id number] / | | | | | + + CAPILLARY BLOOD GLUCOSE (NO CHG), POC (01/09/2013 12:36 PM PST) + +---------+ + + + | Component | Value | Ref Range | Performed | Pathologist | | | | | At | Signature | + +---------+ + + + | BLOOD | 168 (H) | 60 - 99 mg/dL | [facility] - | | | GLUCOSE, | | [...] NICHOLAS | [address] | [place], [place] | | | CATH[facility]EN POINT OF CARE | [address] | [address] | | | TESTS | | | [...] [facility] | [address] | [place] [address] | | | SERVICES, CORE | PARK [...] | + + + + + | [facility] | [address] | [place] [address] | | | SERVICES, DAVEY | TJ [...] [facility] | [address] | [place] [address] | | | SERVICES, CORE | TJ [...] [facility] | [address] | [place] [address] | | | SERVICES, CORE | PARK [...] [facility] | [address] | [place] [address] | | | SERVICES, CORE | PARK [...] YU | [address] | [place], [place] | | | [facility] [place] | [facility] | [address] | | | TESTS | | | [...] (H) | 60 - 99 mg/dL | [facility] - | | | GLUCOSE, | | [...] NICHOLAS | [address] | [place], [place] | | | CATHLEEN POINT OF CARE | [address] | [address] | | | TESTS | | | | + + + + + X-RAY PORTABLE CHEST 1 VIEW (01/08/2013 7:12 PM PST) + + + + + + | Component | Value | Ref Range | Performed | Pathologist | | | | | At | Signature | + + + + + + | X-RAY | MS CHEST 1 VIEW, | | | | [...] | | + +---------+ + + | [facility] DEPARTMENT OF | | | | | [...] | + + + + + | [facility] | [address] | [place] [address] | | | SERVICES, CORE | PARK [...] [facility] | [address] | [place] [address] | | | SERVICES, CORE | PARK [...] | + + + + + | [facility] | [address] | [place] [address] | | | SERVICES, CORE | TJ [...] MARQUAM | [address] | [place], [place] | | | [facility] [place] | [address] | [address] | | | TESTS | | | [...] EVELIAAM | [address] | [place], [place] | | | BRIANNA CONNOLLY OF CARE | [address] | [address] | | | TESTS | | | [...] YU | [address] | [place], [place] | | | B[facility]NA CON[facility]LLY OF CARE | [address] | [address] | | | TESTS | | | [...] NICHOLAS | [address] | [place], [place] | | | BRIANNA CONNOLLY OF [facility] | [facility] | [address] | | | TESTS | | | [...] YU | [address] | [place], [place] | | | [facility] [place] | [address] | [address] | | | TESTS | | | [...] YU | [address] | [place], [place] | | | [facility] [place] | [facility] | [address] | | | TESTS | | | [...] NICHOLAS | [address] | [place], [place] | | | [facility] POINT OF CARE | [address] | [address] | | | TESTS | | | [...] YU | [address] | [place], [place] | | | BRIANNA CONNOLLY OF [facility] | [address] | [address] | | | TESTS | | | [...] EVELIAAM | [address] | [place], [place] | | | B[facility]NA CON[facility]LLY OF CARE | [address] | [address] | | | TESTS | | | [...] NICHOLAS | [address] | [place], [place] | | | B[facility]NA CON[facility]LLY OF CARE | [address] | [address] | | | TESTS | | | [...] | | | | | | BRIANNA CONONLLY | | | | | | OF [...] NICHOLAS | [address] | [place], [place] | | | [facility] [place] | [address] | [address] | | | TESTS | | | [...] [facility] | [address] | [place] [address] | | | SERVICES, | [address] [...] | + + + + + | [facility] | [address] | [place] [address] | | | SERVICES, | [address] [...] + + + + + | SONJA NICOHLAS | [address] | [place], [place] | | | [facility] POINT OF CARE | [address] | [address] | | | TESTS | | | [...] A | | | | | | videotape sales representative section | | | | | [...] Ph.D.PathologistElectron | | | | | | vaishnavi Signed 01/14/2013 | | | | | | 7:05PM | | | | + + + + + + + + | Specimen | + + | | + + + + + + + | Performing | Address | City/State/Zipcode | Phone Number | | Organization | | | | + + + + + | [facility] | [address] | [place] [address] | | | PATHOLOGY | [address] | | | + + + + + documented in this encounter Visit Diagnoses + + | Diagnosis | + + | Morbid obesity (HCC) Morbid obesity | + + documented in this encounter
--- OUTSIDE RECORDS SUMMARY | ~2020-04-13 | XMS | Encounter Summary ---
Demographics + + + | Address | [address] [facility] | | | [place] [address] | + + + | Home Phone [...] + | Organization | [facility] | | | and [place] | + + + | Address | Unknown | + + + | Phone | Unavailable | + + + Support + + + + + | Name | Relationship | Address | Phone | + + + + + | Milady Burns | ECON | [address] | | | | | [place], [place] | | | | | [address] | | + + + + + Care Team Providers + +------+ + | Care Manager Audio Name | Role | Phone | + +------+ + PCP | Unavailable | + +------+ + Encounter Details +--------+ + + + + | Date | Type | Department | Care Team | Description | +--------+ + + + + | 07/11/ | Hospital | [facility] | Harry Lechuga MD | | | 2010 - | Encounter | MED CTR SURGICAL | [address] [place] | | | | | [address] | [address], | | | 07/13/ | | [place] [address] | [place] [address] | | | 2010 | | [phone] | [phone] | | | | | | | [...] + | [facility] | [address] | [place] | [phone] | | [facility] | | [address] | | | - LABORATORY | | | | + + + + + | [facility] | [address] | [place], [place] | | | [facility] | | [id number] | | | - LABORATORY | [...] | | | | | mg/dL | [facility] | | | | | [...] + | [facility] | [address] | [place], [place] | [phone] | | [facility] | | [address] | | | - LABORATORY | | | | + + + + + | [facility] | [address] | [place] | | | [facility] | | [address] | | | - LABORATORY | [...] + | [facility] | [address] | [place] | [phone] | | [facility] | | [address] | | | - LABORATORY | | | | + + + + + | [facility] | [address] | [place] | | | [facility] | | [id number] | | | - LABORATORY | [...] + | [facility] | [address] | [place] | [phone] | | [facility] | | [address] | | | - LABORATORY | | | | + + + + + | [facility] | [address] | [place] | | | [facility] | | [id number] | | | - LABORATORY | | | | + + + + + documented in this encounter Visit Diagnoses Not on filedocumented in this encounter"
--- OUTSIDE RECORDS SUMMARY | ~2020-04-13 | XMS | Encounter Summary ---
Demographics + + + | Address | [address] [facility] | | | [place] [address] | + + + | Home Phone [...] + | Tico Burns | ECON | [address] | | | | | [place], [place] | | | | | [address] | | + + + + + Care Team Providers + +------+ + | Care Dry Cure Worker Name | Role | Phone | + +------+ + | Moe Bella MD | PCP | | + +------+ + Encounter Details +--------+ + + + + | Date | Type | Department | Care Team | Description | +--------+ + + + + | 09/12/ | Abstract | Dig[facility]ive Health | Jesus Perez, | | | 2012 | | [place] at [facility] [address] | [address] | | | | | [address] | [address] | | | | | Mailcode: Center | [place], [place] | | | | | [facility] and | [address] | | | | | [facility], [place] [address] | [phone] | | | | | [place], [place] | | | | | | [address] | | | | | | [phone] | | | +--------+ + + + [...]
--- OUTSIDE RECORDS SUMMARY | ~2020-04-13 | XMS | Encounter Summary ---
Demographics + + + | Address | [address] [facility] | | | [place] [address] | + + + | Home Phone | | + + + | Preferred Language | Unknown | + + + | Marital Status | | + + + | Pentecostalism Affiliation | 1013 | + + + | Race | Unknown | + + + | Ethnic Group | Unknown | + + + Author + + + | Author | [facility] | | | and [place] | + + + | Organization | [facility] | | | and [place] | + + + | Address | Unknown | + + + | Phone | Unavailable | + + + Support + + + + + | Name | Relationship | Address | Phone | + + + + + | Milady Burns | ECON | [address] | | | | | [place], [place] | | | | | [address] | | + + + + + Care Team Providers + +------+ + | Care Sap Security Consultant Name | Role | Phone | [...] | 09/14/ | Office | [facility] | Chauncey Lee MD | S/P cervical spinal | | 2016 | Visit | NEUROSURGERY [address] | [address] | fusion (Primary Dx) | | | | [address] | [place] [address] | | | | | [place] | [phone] | | | | | [address] | | | | | | [phone] | | | +--------+---------+ + + + [...] of this note might be different from t elpidio original. Chauncey Lee MD [address] [place] [address], [address] [place], [place] [address] FAX: NEUROSURGERY FOLLOW-UP CHIEF COMPLAINT: Chief Complaint [...] Medication Sig Dispense Refill TOMAS MICROLET LANCETS [facility] Use as directed cyclobenzaprine (FLEXERIL) 10 mg tablet Take 1 tablet by mouth every 8 hours as needed for Muscle spasms. 90 tablet 3 ergocalciferol (ERGOCALCIFEROL) 74885 UNITS capsule Take 50,000 Units by mouth Once a w twenty-nine palms. FLUoxetine (PROZAC) 20 mg capsule Take 20 [...] Lee MD, 09/14/2016 11:36 documented in this enc nter Plan of Treatment Not on filedocumented [...] Postop. COMPARISON: Multiple priors. FINDINGS: Visualized | . LATESHA | | skull base and facial [...] + | [facility] | [address] | [place], [place] | [phone] | | [facility] | | [address] | | | - IMAGING | | | | + + + + + documented in this encounter Visit Diagnoses + + | Diagnosis | + + | S/P cervical spinal fusion - Primary Arthrodesis status | + + documented in this encounter
--- OUTSIDE RECORDS SUMMARY | ~2020-04-13 | XMS | Encounter Summary ---
Demographics + + + | Address | [address] [facility] | | | [place] [address] | + + + | Home Phone | | + + + | Preferred Language | Unknown | + + + | Marital Status | | + + + | Sabianist Affiliation | CHR | + + + | Race | White | + + + | Ethnic Group | Not or | + + + Author + + + | Author | [facility] | + + + | Organization | [facility] | + + + | Address | Unknown | + + + | Phone | Unavailable | + + + Support + + + + + | Name | Relationship | Address | Phone | + + + + + | Tico Burns | ECON | [address] | | | | | [place], [place] | | | | | [address] | | + + + + + Care Team Providers + +------+ + | Care Program Development Manager Name | Role | Phone | + +------+ + | Moe Bella MD | PCP | | + +------+ + Encounter Details +--------+ + + + + | Date | Type | Department | Care Team | Description | +--------+ + + + + | 12/02/ | Abstract | Digestive Health | Violetta Byers, | | | 2012 | | Center at [facility] [address] | MRI SUPERVISOR [address] | | | | | [address] | [facility] [address] | | | | | Mailcode: Center | [place], [place] | | | | | for Health and | [address] | | | | | [facility] | [phone] | | | | | [place], [place] | | | | | | [address] | | | | | | [phone] | | | +--------+ + + + [...]
--- OUTSIDE RECORDS SUMMARY | ~2020-04-13 | XMS | Encounter Summary ---
Demographics + + + | Address | [address] [facility] | | | [place] [address] | + + + | Home Phone [...] + | Tico Burns | ECON | [address] | | | | | [place], [place] | | | | | [address] | | + + + + + Care Team Providers + +------+ + | Care Customer Service Engineer Name | Role | Phone | + +------+ + | Moe Bella MD | PCP | | + +------+ + Encounter Details +--------+ + + + + | Date | Type | Department | Care Team | Description | +--------+ + + + + | 11/28/ | Principal Developer | Digestive Health | Violetta Byers, | Morbid obesity (HCC) | | 2012 | | Center at [facility] [address] | STERILE PROCESSING MANAGER [address] | (Primary Dx); DM | | | | [address] | , [address] | (diabetes mellitus) | | | | Mailcode: Center | [place], [place] | ([facility]); Hypertension; | | | | for Health and | [address] | Hyperlipidemia; | | | | [place] [address] | [phone] | Vitamin d | | | | [place], [place] | | deficiency; GERD | | | | [address] | | (gastroesophageal | | | | [phone] | | reflux disease) | +--------+ + + + + Social [...] | + + | DM (diabetes mellitus) ([facility]) Type II or unspecified type diabetes mellitus without | | mention of complication, not stated as uncontrolled | + + | Hypertension Unspecified essential hypertension | + + | Hyperlipidemia Other and unspecified hyperlipidemia | + + | Vitamin D deficiency | + + | GERD (gastroesophageal reflux disease) Esophageal reflux | + + documented in this encounter"
--- OUTSIDE RECORDS SUMMARY | ~2020-04-13 | XMS | Encounter Summary ---
Demographics + + + | Address | [address] [facility] | | | [place] [address] | + + + | Home Phone | | + + + | Preferred Language | Unknown | + + + | Marital Status | | + + + | Church Affiliation | CHR | + + + | Race | White | + + + | Ethnic Group | Not or | + + + Author + + + | Author | [facility] | + + + | Organization | [facility] | + + + | Address | Unknown | + + + | Phone | Unavailable | + + + Support + + + + + | Name | Relationship | Address | Phone | + + + + + | Tico Burns | ECON | [address] | | | | | [place], [place] | | | | | [address] | | + + + + + Care Team Providers + +------+ + | Care Auto Body Painter Name | Role | Phone | + +------+ + | Moe Bella MD | PCP | | + +------+ + Encounter Details +--------+ + + + + | Date | Type | Department | Care Team | Description | +--------+ + + + + | 09/12/ | Abstract | Digestive Health | Jesus Perez, | | | 2012 | | [place] at [facility] [address] | [address] | | | | | [address] | [address] | | | | | Mailcode: Center | [place], [place] | | | | | [facility] and | [address] | | | | | [facility], [place] [address] | [phone] | | | | | [place], [place] | | | | | | [address] | | | | | | [phone] | | | +--------+ + + + [...]
--- OUTSIDE RECORDS SUMMARY | ~2020-04-13 | XMS | Encounter Summary ---
Demographics + + + | Address | [address] | | | [place] [address] | + + + | Home Phone | | + + + | Preferred Language | Unknown | + + + | Marital Status | | + + + | Gnosticism Affiliation | CHR | + + + | Race | White | + + + | Ethnic Group | Not or | + + + Author + + + | Author | [facility] | + + + | Organization | [facility] | + + + | Address | Unknown | + + + | Phone | Unavailable | + + + Support + + + + + | Name | Relationship | Address | Phone | + + + + + | Tico Burns | ECON | [address] | | | | | [place], [place] | | | | | [address] | | + + + + + Care Team Providers + +------+ + | Care Retail Warehouse Supervisor Name | Role | Phone | [...] | | | | | surgery | [address] | [address] | | | | | status | [address] | [address] | | | | | Procedures | Claudette Wright | [place], | | | | | CONSULT TO | [place], [place] | [place] | | | | | BARIATRIC | [address] | [address] | | | | | SURGERY | Phone: | Phone: | | | | | | [phone] | [phone] | | | | | | Fax: | Fax: | | | | | | [phone] | [phone] | +--------+--------+ + + + + Reason [...] Laura | | | | | | [place] | [address] | | | | | | [address] | [address] [facility], | | | | | | [place], | [place] | | | | | | [place] [address] | [address] | | | | | | Phone: | Phone: | | | | | | [phone] | [phone] | | | | | | Fax: | Fax: | | | | | | [phone] | [phone] | +--------+--------+ + + + + Encounter Details +--------+---------+ + + + | Date | Type | Department | Care Team | Description | +--------+---------+ + + + | 01/12/ | Office | Plastic and | Mary Ann Winkler, | BMI 60.0-69.9, adult | | 2017 | Visit | Reconstructive | [address] | ([facility]) (Primary Dx); | | | | Surgery at [facility] [address] | Edema, unspecified | | | | [address] | [place], [place] | type; Sleep apnea, | | | | Mailcode: [facility] | [address] | unspecified type; | | | | [facility] | [phone] | 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 Indications: TYPE 2 DIABETES [...] Rash all over arms SH: Lives in [place], [place] with his and grandson. 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 Den ies tobacco, rare EtOH consumption, denies [...] evidence of venous stasis Labs/Cultures/Pathology: Reviewed in [facility] Imaging/Diagnostic Studies: Reviewed in [facility] ASSESSMENT: Gerard Burns is a 51 y.o. [...] wound complications, <7 Dr. Mary Ann Winkler [facility] Support General has seen and examined the patient and agrees with the above plan. Mckenna Trevino MD PLASTIC AND RECONSTRUCTIVE SURGERY AT [facility] [address] Mail Code: [place] [address] documented in this e ncounter [...]
--- OUTSIDE RECORDS SUMMARY | ~2020-04-13 | XMS | Encounter Summary ---
Demographics + + + | Address | [address] | | | [place] [address] | + + + | Home Phone [...] | + + + + + | iTco Burns | ECON | [address] | | | | | [place], [place] | | | | | [address] | | + + + + + Care Team Providers + +------+ + | Care Loom Overhauler Name | Role | Phone | + +------+ + | Moe Bella MD | PCP | | + +------+ + Encounter Details +--------+ + + + + | Date | Type | Department | Care Team | Description | +--------+ + + + + | 02/14/ | Abstract | Digestive Health | Clinic, Surgery | | | 2015 | | [facility] [address] | | | | | | [address] | | | | | | Mailcode: [facility] | | | | | | for Health and | | | | | | Healing, [address] | | | | | | [place], [place] | | | | | | [address] | | | | | | [phone] | | | +--------+ + + + [...]
--- OUTSIDE RECORDS SUMMARY | ~2020-04-13 | XMS | Encounter Summary ---
Demographics + + + | Address | [address] | | | [place] [address] | + + + | Home Phone | | + + + | Preferred Language | Unknown | + + + | Marital Status | | + + + | Alevism Affiliation | CHR | + + + [...] + | Tico Burns | ECON | [address] | | | | | [place], [place] | | | | | [address] | | + + + + + Care Team Providers + +------+ + | Care Garment Form Assembler Name | Role | Phone | + +------+ + | Moe Bella MD | PCP | | + +------+ + Encounter Details +--------+ + + + + | Date | Type | Department | Care Team | Description | +--------+ + + + + | 12/26/ | Abstract | Digestive Health | Violetta Byers, | | | 2012 | | Center at [facility] [address] | [address] PIPE OFF[address]ARER [address] | | | | | [address] | [facility] [address] | | | | | Mailcode: Center | [place], [place] | | | | | for Health and | [address] | | | | | [facility], [facility] 2 | [phone] | | | | | [place], [place] | | | | | | [address] | | | | | | [phone] | | | +--------+ + + + [...]
--- OUTSIDE RECORDS SUMMARY | ~2020-04-13 | XMS | Encounter Summary ---
Demographics + + + | Address | [address] [facility] [address] | | | [place] [address] | + + + | Home Phone | | + + + | Preferred Language | Unknown | + + + | Marital Status | | + + + | Jain Affiliation | CHR | + + + | Race | White | + + + | Ethnic Group | Not or | + + + Author + + + | Author | [facility] | + + + | Organization | [facility] | + + + | Address | Unknown | + + + | Phone | Unavailable | + + + Support + + + + + | Name | Relationship | Address | Phone | + + + + + | Tico Burns | ECON | [address] | | | | | [place], [place] | | | | | [address] | | + + + + + Care Team Providers + +------+ + | Care Wine Pasteurizer Name | Role | Phone | + +------+ + | Moe Bella MD | PCP | | + +------+ + Reason for Visit + + + | Reason | Comments | + + + | Lab Results | | + + + Encounter Details +--------+ + + + + | Date | Type | Department | Care Team | Description | +--------+ + + + + | 12/02/ | Telephone | Digestive Health | Conser, Violetta M, | Lab Results | | 2012 | | Center at [facility] [address] | [place] [address] | | | | | [address] | [place] [address] | | | | | Mailcode: Center | [place], [place] | | | | | for Health and | [address] | | | | | [place] [address] | [phone] | | | | | [place], [place] | | | | | | [address] | | | | | | [phone] | | | +--------+ + + + [...]
--- OUTSIDE RECORDS SUMMARY | ~2020-04-13 | XMS | Encounter Summary ---
Demographics + + + | Address | [address] | | | [place] [address] | + + + | Home Phone | | + + + | Preferred Language | Unknown | + + + | Marital Status | | + + + | Bahai Affiliation | CHR | + + + | Race | White | + + + | Ethnic Group | Not or | + + + Author + + + | Author | [facility] | + + + | Organization | [facility] | + + + | Address | Unknown | + + + | Phone | Unavailable | + + + Support + + + + + | Name | Relationship | Address | Phone | + + + + + | Tico Burns | ECON | [address] | | | | | [place], [place] | | | | | [address] | | + + + + + Care Team Providers + +------+ + | Care Sales Ledger Administrator Name | Role | Phone | + +------+ + | Moe Bella MD | PCP | | + +------+ + Reason for Visit + + + | Reason | Comments | + + + | Surgical follow-up | Bariatric | + + + Encounter Details +--------+ + + + + | Date | Type | Department | Care Team | Description | +--------+ + + + + | 07/10/ | Documentati | Digestive Health | Violetta Byers, | Surgical follow-up | | 2013 | on | Center at [facility] [address] | [address] | (Bariatric) | | | | [address] | , [address] | | | | | Mailcode: Center | [place], [place] | | | | | for [facility] and | [address] | | | | | [facility], [facility] 2 | [phone] | | | | | [place], [place] | | | | | | [address] | | | | | | [phone] | | | +--------+ + + + [...]
--- OUTSIDE RECORDS SUMMARY | ~2020-04-13 | XMS | Encounter Summary ---
Demographics + + + | Address | [address] [facility] | | | [place] [address] | + + + | Home Phone [...] + | Tico Burns | ECON | [address] | | | | | [place], [place] | | | | | [address] | | + + + + + Care Team Providers + +------+ + | Care Entry Level Automotive Technician Name | Role | Phone | + +------+ + | Moe Bella MD | PCP | | + +------+ + Encounter Details +--------+ + + + + | Date | Type | Department | Care Team | Description | +--------+ + + + + | 04/29/ | Telephone | Digestive Health | Jesus Perez, | | | 2012 | | [place] | [address] | | | | | [place] Mailcode: [facility] | [facility] | | | | | [facility] | [place], [place] | | | | | and Healing, | [address] | | | | | [address] | [phone] | | | | | Floor [place], [place] | | | | | | [address] | | | | | | [phone] | | | +--------+ + + + [...]
--- OUTSIDE RECORDS SUMMARY | ~2020-04-13 | XMS | Encounter Summary ---
Demographics + + + | Address | [address] | | | [place] [address] | + + + | Home Phone | | + + + | Preferred Language | Unknown | + + + | Marital Status | | + + + | Jewish Affiliation | 1013 | + + + | Race | Unknown | + + + | Ethnic Group | Unknown | + + + Author + + + | Author | [facility] | | | and [place] | + + + | Organization | [facility] | | | and [place] | + + + | Address | Unknown | + + + | Phone | Unavailable | + + + Support + + + + + | Name | Relationship | Address | Phone | + + + + + | Milady Burns | ECON | [address] | | | | | [place], [place] | | | | | [address] | | + + + + + Care Team Providers + +------+ + | Care Press Tender Long Goods Name | Role | Phone | + +------+ + | Moe Bella MD | PCP | | + +------+ + Encounter Details +--------+ + + + + | Date | Type | Department | Care Team | Description | +--------+ + + + + | 02/10/ | Abstract | [facility] | Vannessa Taylor | | | 2019 | | PHYSIATRY [address] | [address] | | | | | [facility] [address] | [facility] | | | | | [place] | [address] | | | | | [address] | [address] | | | | | [phone] | | | +--------+ + + + [...]
--- OUTSIDE RECORDS SUMMARY | ~2020-04-13 | XMS | Encounter Summary ---
Demographics + + + | Address | [address] | | | [place] [address] | + + + | Home Phone [...] + + + | Author | [facility] | + + + | Organization | [facility] | + + + | Address | Unknown | + + + | Phone | Unavailable | + + + Support + + + + + | Name | Relationship | Address | Phone | + + + + + | Tico Burns | ECON | [address] | | | | | [place], [place] | | | | | [address] | | + + + + + Care Team Providers + +------+ + | Care Power Reactor Operator Name | Role | Phone | [...] | | 2017 | | Center at [facility] [address] | | Review | | | | [address] | | | | | | Mailcode: Center | | | | | | for Health and | | | | | | [facility], Building [address] | | | | | | [place], [place] | | | | | | [address] | | | | | | [phone] | | | +--------+ + + + [...]
--- OUTSIDE RECORDS SUMMARY | ~2020-04-13 | XMS | Encounter Summary ---
Demographics + + + | Address | [address] | | | [place] [address] | + + + | Home Phone | | + + + | Preferred Language | Unknown | + + + | Marital Status | | + + + | Sabianism Affiliation | CHR | + + + | Race | White | + + + | Ethnic Group | Not or | + + + Author + + + | Author | [facility] | + + + | Organization | [facility] | + + + | Address | Unknown | + + + | Phone | Unavailable | + + + Support + + + + + | Name | Relationship | Address | Phone | + + + + + | Tico Burns | ECON | [address] | | | | | [place], [place] | | | | | [address] | | + + + + + Care Team Providers + +------+ + | Care Research Investigator Name | Role | Phone | + +------+ + | Moe Bella MD | PCP | | + +------+ + Reason for Visit + + + | Reason | Comments | + + + | Pre-op evaluation | | + + + Encounter Details +--------+---------+ + + + | Date | Type | Department | Care Team | Description | +--------+---------+ + + + | 12/26/ | Office | Preoperative | Eliz Fontaine, | Morbid obesity (HCC) | | 2012 | Visit | Medicine Clinic at | ANP [address] | (Primary Dx); Other | | | | [facility] 4th Floor [address] | specified | | | | [address] | [place], [place] | pre-operative | | | | Mailcode: CH4S | [address] | examination; DM | | | | [facility] | [phone] | (diabetes mellitus) | | | | and Healing, | | (HCC); Hypertension; | | | | Building 1,4th Floor | | Hyperlipidemia; | | | | [place], [place] | | Thyroid cancer | | | | [address] | | ([facility]); | | | | [phone] | | Hypothyroidism; KARELY | | | | | | (obstructive sleep | | | | | | apnea); Panniculitis | +--------+---------+ + + + Anesthesia Record [...] 2353 | 01/08/13 1420 by Talon | 01/08/132352 by | | D - | (removed [...] | D - | No; pulled by dr Danny guidry; Delvin; | Liane Bazzi, | Domi Hill [...] + + + | Blood Pressure | 110/60 | 12/26/2012 1:52 PM | | | | | PST | | + + + + + | Pulse | 68 | 12/26/2012 1:52 PM | | | | | PST | | + + + + + | Temperature | 35.5 C (95.9 F) | 12/26/2012 1:52 PM | | | | | PST | | + + + + + | Respiratory Rate | 16 | 12/26/2012 1:52 PM | | | | | PST | | + + + + + | Oxygen Saturation | 96% | 12/26/2012 1:52 PM | | | | | PST | | + + + + + | Inhaled Oxygen | - | - | | | Concentration | | | | + + + + + | Weight | 239.5 kg (528 lb) | 12/26/2012 1:52 PM | neck 40cm | | | | PST | | + + + + + | Height | 175.3 cm (5' 9") | 12/26/2012 1:52 PM | | | | | PST | | + + + + + | Body Mass Index | 77.97 | 12/26/2012 1:52 PM | | | | | PST | | + + + + + documented in this encounter Patient Instructions Patient Instructions Eliz Fontaine ANP - 12/26/2012 1:56 PM PST PREOPERATIVE INSTRUCTIONS Empty stomach before surgery! On the day BEFORE your surgery, drink plenty of fluids and stay well hydrated Do not eat or drink ANYTHING after midnight the night before surgery, or 8 hours prior t o surgery. This includes water, coffee, candy, mints, gum. BRING YOUR CPAP WITH YOU Medications Instructions TAKE the following medications with a sip of water on the morning of surgery: CLONIDINE, SYNTHROID, METOPROLOL ON THE EVENING PRIOR TO YOUR PROCEDURE USE 80% (56units) OF YOUR LANTUS INSULIN DOSE DO NOT USE YOUR FAST ACTING INSULIN ON THE MORNING OF SURGERY Do NOT take the following medications on the morning of surgery: ALL OTHERS Unless otherwise directed by your surgeon, do [...] preparation to help avoid surgical site infections On the morning of surgery, do not shave the area of skin where you will have surgery HIBICLENS GUIDE TO GENERAL SKIN CLEANSING AT HOME BEFORE SURGERY General Skin Cleansing Instructions: Hibiclens is not to be used on the head or face, keep out of the eyes, ears and mouth. Hibiclens is not to be used in the genital area. If this is the first time using Hibiclens, please perform an allergy test by placing 1-2 drops of soap on your forearm. Observe this area for 4-5 minutes. If you develop a rash, pl ease DO NOT use this product. Please inform the preop team on the morning of surgery so that this product is NOT used during your surgery. *See Hibiclens label for full product information and precautions. When you bathe or shower the night before your surgery: If you plan to wash your hair, do so with your regular shampoo. Then rinse hair and body thoroughly to remove any shampoo residue. Wash your face with your regular soap or water only. Thoroughly rinse your body with warm water from neck down. Then use Hibiclens as you would any other liquid soap. Apply directly to the skin and wa sh gently. Apply the minimum amount of Hibiclens necessary to cover the skin. Leave the Hib iclens on your skin for 1 minute, then rinse off. Rinse thoroughly with warm water. Towel dry with a clean towel. Dress in clean sleepwear and sleep on freshly laundered sheets. When using Hibiclens for a second day in a row (morning of surgery, as soon as you wake up) : Shower/bathe again using Hibiclens in the same method as described above and wear freshl y laundered clothes. Do not apply any lotions, deodorants, powders or perfumes to the body areas that have be en cleaned with Hibiclens. Preventing post op complications while you are [...] ask you to sit, stand or walk. Other Important Guidelines Do not shave the [...] before and the morning of your procedure. Surgery Check in Locations Admitting [facility] [address] [facility] Surgery Check in Time: The Preoperative Medicine Clinic is NOT in the position to give you accurate information regarding surgical check in time. We refer you back to your surgical office regarding this important information. Going Home Your surgical team will decide when you are medically ready to go home. If you are released to go home on the same day as your procedure/surgery please note the following: You will not be able to drive. You will be required to have a competent person drive you or accompany you by taxi or pu blic transportation on the day of discharge. It is also required that you have a competent person assist you and look after you on th e first night after you have undergone regional blocks (72 hours for patients going home wit h regional block pump), deep sedation, and/or general anesthesia. If you stayed in the hospital after surgery, please arrange for your ride to come for yo u around 9AM on the day your doctor says you can go home. Check out time is 11AM. If you have questions or concerns after you go home, call your doctor s office. If it is after office hours, call the [facility] forging press operator at [phone] and ask them to page him or h er. documented in this encounter Progress Notes Eliz Fontaine ANP - 12/26/2012 2:30 PM PSTFormatting of this note might be different f rom the original. PREOPERATIVE CONSULT NOTE Consulting Provider: FAVIO ROMERO Referring Physician: Dr Perez Primary Care Provider: Moe Bella MD Reason for Consult: Preoperative evaluation and risk assessment Proposed Procedure/Date: RYGB on january 08 2013 HISTORY OF PRESENT ILLNESS: Gerard Burns is a 47 y.o. male here for preoperative ev aluation for above procedure. His medical history is significant for BMI=81 and comorbiditie s of hypertension, sleep apnea, thyroid cancer and diabetes. He also has two large pannuses one of which engulfs his penis and scrotum. He is ambulatory but tires very easily. He is em ployed and works steadily. He underwent an attempted gastric bypass about two years ago but the surgeon was unable to perform it and took out a meter of small intestine instead. Hypertension x years, BP and HR controlled today. Can walk about one half block prior to be coming fatigued. Saw his local room cleaner within the month, who encourages this procedure for the patient. However, the patient's weight prohibits a nuc stress or cardiac cath proced ure in the [facility]. Per ERIC Rodriguez cardiology-[facility] is not able to accomodate h is size for nuc stress or cath either. KARELY-uses CPAP hypothryoidism s/p thyroidectomy for cancer, euthyroid per patient. IDDM with am cbg's 80-120. A1c 7.9 today No history or symptoms of CAD/CHF/CKD/CVD. No problems with anesthetics. ROS: 12 system ROS Preoperative Patient Questionnaire was reviewed with the patient. Pert inent positives are noted in HPI and PMHX. Document will be scanned in Many[employer]. Current Medication List Name Sig ASPIRIN 81 MG TABLET Take 81 mg by mouth once daily. CLONIDINE 0.1 MG TABLET Take 0.1 mg by mouth two times daily. FLUOXETINE 20 MG CAPSULE Take 20 mg by mouth once daily. INSULIN GLARGINE 100 UNIT/ML SUB-Q Inject 70 Units under the skin (SUBC) once daily at bedt kevan. INSULIN GLULISINE 100 UNIT/ML SUB-Q Inject 20 Units under the skin (SUBC) three times daily before meals. LEVOTHYROXINE 175 MCG TABLET Take 175 mcg by mouth once daily. HYZAAR ORAL Take by mouth. METFORMIN ER 500 MG TABLET,EXTENDED RELEASE 24 HR Take 500 mg by mouth once daily. Administ er with evening meal. METOPROLOL TARTRATE 100 MG TABLET Take 100 mg by mouth two times daily. PHENTERMINE 37.5 MG DISINTEGRATING TABLET Take 37.5 mg by mouth once daily. VITAMIN A & ERGOCALCIFEROL(D2) ORAL Take by [...] very rare PHYSICAL EXAM: Last Vitals: BP 110/60 | Pulse 68 | Temp (Src) 35.5 C (95.9 F) (Oral) | RR 16 | Ht 1.75 3 m (5' 9") | Wt 239.499 kg (528 lb) | SpO2 96% | BMI 77.97 kg/(m^2) Body mass index is 77.9 7 kg/(m^2). PMC ROS Last edited 12/26/12 1423 by FAVIO Romero ROS Pulmonary: Dx of sleep apnea Uses BiPap/CPAP Cardiovascular: Functional Capacity: Low hypertension well controlled GI/Hepatic: Within Defined Limits except as noted below : Within Defined Limits except as noted below Endo: Diabetes: type 2, < 150 Other endo: MEN:Parathyroid: Pituitary: Thyroid:+ hypothyroid Neurological: Within Defined limits except as noted below Current pain level: 0 MS: Within Defined Limits except as noted below Heme/Onc: Malignancy: cancer, Location: Thyroid, Metastasis: Skin: Comments: Open areas x 2 to lower pannus Physical Exam General: Patients general appearance: Alert, No distress and Cooperative Head & Neck/Airway: Neck ROM: full TM Distance:> 6cm Dentition: dentition is normal dental implants, bridges or caps present Gardiner: No Mallampati: II Mouth Opening: > = 3 cm C-Spine: normal Neck Anatomy: Thick, obese Jaw Protrusion: Normal, lower incisors can protrude past upper incisors Lung Exam: breath sounds normal Cardiac: Rhythm: regular Rate: normal Abdominal: General Findings: no abdominal tenderness Bowel Sounds: bowel sounds are normal Musculoskeletal: Findings: tone normal Neuro/Psych: alert Findings: Normal affect, Alert, oriented to person, place, time and No tremor Integument: Color: pink Texture: Skin texture - normal Turgor: turgor normal Implants: None, LAB DATA REVIEWED/ORDERED Lab Results Component Value Date A1C 7.9 12/26/2012 EKG: Personally reviewed, NSR with no Q waves V rate 69 TTE Sep 2012: EF appears normal (poor quality windows), no significant valvular abnormaliti es, no WMA MEDICAL DECISION MAKIN ACC/ AHA Perioperative Guidelines 1. Need for emergency noncardiac surgery? b. No -> Proceed to next step. 2. Active Cardiac Conditions? These conditions mandate further investigation and manageme nt. A. Acute DC within 7 days: no B. Unstable angina/Recent DC (7- 30 days): no C. Decompensated CHF: no D. Significant arrhythmia: None E. Severe valvular disease: NONE 3. Low risk surgery? b. No -> proceed with next step. 4. Good functional capacity? MET ASSESSMENT: 2. METS--taking a shower, walking down 8 st eps. 5. Assess Clinical Risk Factors? A. Ischemic heart disease: no B. Compensated / prior heart failure: no C. Diabetes mellitus (treated with insulin): Yes D. Renal insufficiency (Cr > 2): no E. 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 male with diagnos is of morbid obesity, scheduled for RYGB. According to ACC/AHA, this patient has 1 clinical risk factors and the recommendation is to proceed with planned surgery without additional c ardiac testing. Medication management recommendations: The patient was advised to continue all usual med ications except as noted in Patient Instructions (After Visit Summary given to pt) Perioperative antibiotic prophylaxis: Standard (Consider IV Vanco one hr before procedu re in pts with Cephalosporin/PCN allergy and/or with hx of MRSA) This patient is medically stable for surgery. Further testing/optimization is not needed. Thank you for the opportunity to contribute to this patient's care. FAVIO Romero ANP [facility] [address] [place] [phone] signed by FAVIO Romero at 12/30/2012 9:24 AM Ina blake in this encounter Plan of Treatment Not on filedocumented as of this encounter Procedures + +--------+ + + + | Procedure Name | Priori | Date/Time | Associated Diagnosis | Comments | | | ty | | | | + +--------+ + + + | TYPE AND SCREEN | Routin | 12/26/2012 | Other specified | Results for this | | | e | 4:43 PM | pre-operative | procedure are in the | | | | PST | examination | results section. | + +--------+ + + + | HEMOGLOBIN A1C, POC | Routin | 12/26/2012 | Other specified | Results for this | | | e | 2:21 PM | pre-operative | procedure are in [...] + | CBC ONLY | Routin | 12/26/2012 | Other specified | Results for this | | | e | 1:44 PM | pre-operative | procedure are in the | | | | PST | examination | results section. | + +--------+ + + + | BASIC METABOLIC SET | Routin | 12/26/2012 | Other specified | Results for this | | (NA, K, CL, TCO2, | e | 1:44 PM | pre-operative | procedure are in the | | BUN, CR, GLU, CA) | | PST | examination | results section. | + +--------+ + + + | CBC ONLY | Routin | 12/26/2012 | Other specified | Results for this | | | e | 1:44 PM | pre-operative | procedure are in the | | | | PST | examination | results section. | + +--------+ + + + | ANTIBODY SCREEN | Routin | 12/26/2012 | Other specified | Results for this | | | e | 1:44 PM | pre-operative | procedure are in the | | | | PST | examination | results section. | + +--------+ + + + | ABO & RH TYPE | Routin | 12/26/2012 | Other specified | Results for this | | | e | 1:44 PM | pre-operative | procedure are in the | | | | PST | examination | results section. | + +--------+ + + + | OUTSIDE CARDIOLOGY | | 10/04/2012 | | Results for this | | | | 12:00 AM | | procedure are in the | | | | PST | | results section. | + +--------+ + + + documented in this encounter Results HEMOGLOBIN A1C, POC (12/26/2012 2:21 PM PST) + +---------+ + + + | Component | Value | Ref Range | Performed | Pathologist | | | | | At | Signature | + +---------+ + + + | HEMOGLOBIN | 7.9 (H) | 4.0 - 5.7 % | [facility], | | | A1C,POC | | | [...] + + + + | [facility] | [address] | [place] [address] | | | OF CARE TESTS | | | | + + + + + 12 LEAD ECG (12/26/2012 2:10 PM PST) [...] | | | | | AMITA TAN ([id number]) | | | | | | on 12/26/2012 10:49:35 PM | | | | + + + + + + + + | Specimen | + + | | + + + + + | Narrative | Performed At | + + + | Please click | [facility] | | on view image for the detailed interpretation from [employer] results. | CARDIOLOGY | + + + + + + + + | Performing | Address | City/State/Zipcode | Phone Number | | Organization | | | | + + + + + | [facility] | [address] | [place], [place] | | | CARDIOLOGY | [address] | [address] | | + + + + + CBC (12/26/2012 1:44 PM PST) + + + + + + | Component | Value | Ref Range | Performed | Pathologist | | | | | At | Signature | + + + + + + | WBC COUNT | 8.2 | 4.4 - 11.0 K/cu | [facility] | | | | | mm | LABORATORY | | | | | | SERVICES, | | | | | | CORE | | + + + + + + | RED CELL | 4.71 | 4.50 - 5.90 | [facility] | | | COUNT | | M/cu mm | LABORATORY | | | | | | SERVICES, | | | | | | CORE | | + + + + + + | HEMOGLOBIN | 12.9 (L) | 13.5 - 17.5 | [facility] | | | | | g/dL | LABORATORY | | | | | | SERVICES, | | | | | | CORE | | + + + + + + | HEMATOCRIT | 39.5 (L) | 41.0 - 53.0 % | [facility] | | | | | | LABORATORY | | | | | | SERVICES, | | | | | | CORE | | + + + + + + | MCV | 83.9 | 80.0 - 96.0 fL | [facility] | | | | | | LABORATORY | | | | | | SERVICES, | | | | | | CORE | | + + + + + + | MCHC | 32.7 (L) | 33.4 - 35.5 | [facility] | | | | | g/dL | LABORATORY | | | | | | SERVICES, | | | | | | CORE | | + + + + + + | RDW | 15.8 (H) | 11.5 - 15.0 % | [facility] | | | | | | LABORATORY | | | | | | SERVICES, | | | | | | CORE | | + + + + + + | PLATELET | 293 | 150 - 400 K/cu | [facility] [...] [facility] | [address] | [place] [address] | | | SERVICES, CORE | [address] | | | + + + + + ANTIBODY SCREEN (12/26/2012 1:44 PM PST) + + + + + [...] | + + + + + | [facility] | [address] | [place] [address] | | | SERVICES, | [address] | | | | TRANSFUSION MEDICINE | | | | + + + + + ABO & RH TYPE (12/26/2012 1:44 PM PST) + + + + + [...] [facility] | [address] | [place] [address] | | | SERVICES, | [address] | | | | TRANSFUSION MEDICINE | | | | + + + + + BASIC METABOLIC SET (NA, K, CL, TCO2, BUN, CR, GLU, CA) (12/26/2012 1:44 PM PST) + +---------+ + + + | Component | Value | Ref Range | Performed | Pathologist | | | | | At | Signature | + +---------+ + + + | GLUCOSE, | 199 (H) | 60 - 99 mg/dL | [facility] | | | PLASMA | | | LABORATORY | | | (LAB) | | | SERVICES, | | | | | | CORE | | + +---------+ + + + | BUN, PLASMA | 20 | 6 - 20 mg/dL | [facility] | | | (LAB) | | | LABORATORY | | | | | | SERVICES, | | | | | | CORE | | + +---------+ + + + | CREATININE | 1.11 | 0.70 - 1.30 | [facility] | | | PLASMA | | mg/dL | LABORATORY | | | (LAB) | | | SERVICES, | | | | | | CORE | | + +---------+ + + + | EGFR | >60 | mL/min | [facility] | | | - | | | LABORATORY | | | YEMENI | | | SERVICES, | | | | | | CORE | | + +---------+ + + + | EGFR NON | >60 | mL/min | [facility] | | | -ARTIE | | | LABORATORY | | | RICAN | | | SERVICES, | | | | | | CORE | | + +---------+ + + + | SODIUM, | 137 | 136 - 145 | [facility] | | | PLASMA | | mmol/L | LABORATORY | | | (LAB) | | | SERVICES, | | | | | | CORE | | + +---------+ + + + | POTASSIUM, | 4.1 | 3.4 - 5.0 | [facility] | | | PLASMA | | mmol/L | LABORATORY | | | (LAB) | | | SERVICES, | | | | | | CORE | | + +---------+ + + + | CHLORIDE, | 99 | 97 - 108 mmol/L | [facility] [...] +---------+ + + + | CALCIUM, | 9.3 | 8.6 - 10.2 | [facility] | | | PLASMA | | mg/dL | LABORATORY | | | (LAB) | | | SERVICES, | | | | | | CORE | | + +---------+ + + + | ANION GAP | 11 | 4 - 11 mmol/L | [facility] [...] | + + + + + | [facility] | [address] | [place] [address] | | | DAVEY CRAWFORD | TJ BULLOCK | | | + + + + + OUTSIDE CARDIOLOGY (10/04/2012 12:00 AM PST) + + + | Narrative | Performed At | + + + | | | | | | + + + + + | Procedure Note | + + | Usman Barbosa - 12/26/2012 6:54 PM PST | + + documented in this encounter Visit Diagnoses + + | Diagnosis | + + | Morbid obesity (HCC) - Primary Morbid obesity | + + | Other specified pre-operative examination | + + | DM (diabetes mellitus) (HCC) Type II or unspecified type diabetes mellitus without | | mention of complication, not stated as uncontrolled | + + | Hypertension Unspecified essential hypertension | + + | Hyperlipidemia Other and unspecified hyperlipidemia | + + | Thyroid cancer (HCC) Malignant neoplasm of thyroid gland | + + | Hypothyroidism Unspecified hypothyroidism | + + | KARELY (obstructive sleep apnea) Obstructive sleep apnea (adult) (pediatric) | + + | Panniculitis Panniculitis, unspecified site | + + documented in this encounter
--- OUTSIDE RECORDS SUMMARY | ~2020-04-13 | XMS | Encounter Summary ---
Demographics + + + | Address | [address] | | | [place] [address] | + + + | Home Phone [...] + | Tico Burns | ECON | [address] | | | | | [place], [place] | | | | | [address] | | + + + + + Care Team Providers + +------+ + | Care Creative Services Coordinator Name | Role | Phone | + [...] [facility] | | | | | | [address] | | | | | | [address] Physician's | | | | | | [place], [address] | | | | | | [place], [place] | | | | | | [address] | | | | | | [phone] | | | +--------+ + + + [...]
--- OUTSIDE RECORDS SUMMARY | ~2020-04-13 | XMS | Encounter Summary ---
Demographics + + + | Address | [address] | | | [place] [address] | + + + | Home Phone | | + + + | Preferred Language | Unknown | + + + | Marital Status | | + + + | Taoism Affiliation | [id number] | + + + | Race | Unknown | + + + | Ethnic Group | Unknown | + + + Author + + + | Author | [facility] | | | and [place] | + + + | Organization | [facility] | | | and [place] | + + + | Address | Unknown | + + + | Phone | Unavailable | + + + Support + + + + + | Name | Relationship | Address | Phone | + + + + + | Milady Burns | ECON | [address] | | | | | [place] | | | | | [address] | | + + + + + Care Team Providers + +------+ + | Care Screwhead Stoner And Polisher Name | Role | Phone | + [...] | | [address] | [place] [address] | | | | | KENYA Capps | [phone] | | | | | [address] | | | | | | [phone] | | | +--------+--------+ + + + [...]
--- OUTSIDE RECORDS SUMMARY | ~2020-04-13 | XMS | Encounter Summary ---
Demographics + + + | Address | [address] | | | [place] [address] | + + + | Home Phone | | + + + | Preferred Language | Unknown | + + + | Marital Status | | + + + | Presybeterian Affiliation | CHR | + + + | Race | White | + + + | Ethnic Group | Not or | + + + Author + + + | Author | [facility] | + + + | Organization | [facility] | + + + | Address | Unknown | + + + | Phone | Unavailable | + + + Support + + + + + | Name | Relationship | Address | Phone | + + + + + | Tico Burns | ECON | [address] | | | | | [place], [place] | | | | | [address] | | + + + + + Care Team Providers + +------+ + | Care Secretary Specialist Name | Role | Phone | + +------+ + | Moe Bella MD | PCP | | + +------+ + Encounter Details +--------+ + + + + | Date | Type | Department | Care Team | Description | +--------+ + + + + | 12/13/ | Abstract | Digestive Health | Violetta Byers, | | | 2012 | | Center at [facility] [address] | POWERHOUSE ENGINEER [address] | | | | | [address] | [facility] [address] | | | | | Mailcode: Center | [place], [place] | | | | | for Health and | [address] | | | | | [facility], [facility] [address] | [phone] | | | | | [place], [place] | | | | | | [address] | | | | | | [phone] | | | +--------+ + + + [...]
--- OUTSIDE RECORDS SUMMARY | ~2020-04-13 | XMS | Encounter Summary ---
Demographics + + + | Address | [address] | | | [place] [address] | + + + | Home Phone [...] [place], [place] | | | | | [address] | | + + + + + Care Team Providers + +------+ + | Care Beer Still Runner Compounder Name | Role | Phone | + [...] | | 2016 | | Center at [facility] [address] | MD [address] [facility] [address] | - General | | | | [address] | [address] | | | | | Mailcode: Center | [place], [place] | | | | | [facility] and | [address] | | | | | [facility] [address] | [phone] | | | | | [place], [place] | | | | | | [address] | | | | | | [phone] | | | +--------+ + + + [...]
--- OUTSIDE RECORDS SUMMARY | ~2020-04-13 | XMS | Encounter Summary ---
Demographics + + + | Address | [address] | | | [place] [address] | + + + | Home Phone | | + + + | Preferred Language | Unknown | + + + | Marital Status | | + + + | Christianity Affiliation | CHR | + + + [...] + | Tico Burns | ECON | [address] | | | | | [place], [place] | | | | | [address] | | + + + + + Care Team Providers + +------+ + | Care Inside Sales Coordinator Name | Role | Phone | [...] [facility] | | | | | | [facility] | | | | | | and Healing, | | | | | | Building 1, | | | | | | Floor [place], [place] | | | | | | [address] | | | | | | [phone] | | | +--------+ + + + [...]
--- OUTSIDE RECORDS SUMMARY | ~2020-04-13 | XMS | Encounter Summary ---
Demographics + + + | Address | [address] [facility] [address] [facility] | | | [place] [address] | + + + | Home Phone | | + + + | Preferred Language | Unknown | + + + | Marital Status | | + + + | Pentecostalism Affiliation | CHR | + + + [...] + | Tico Burns | ECON | [address] | | | | | [place], [place] | | | | | [address] | | + + + + + Care Team Providers + +------+ + | Care Tire Sorter Name | Role | Phone | + [...] | | | | (HCC) Type | M[address] | | | | | II or | [address] | Mailcode: | | | | | unspecified | [place], | [facility] | | | | | type | [place] [address] | Health and | | | | | diabetes | Phone: | Healing, | | | | | mellitus | [phone] | [address] 2 | | | | | without | Fax: | [place], [place] | | | | | mention of | [phone] | [address] | | | | | complication | | Phone: | | | | | , not stated | | | | | | | as | | Fax: | | | | | uncontrolled | | [phone] | +--------+--------+ + + + + Encounter Details +--------+---------+ + + + | Date | Type | Department | Care Team | Description | +--------+---------+ + + + | 03/03/ | Office | Digestive Health | Kristan Miranda, | S/P laparoscopic | | 2015 | Visit | Center at [facility] [address] | ACNP [address] | sleeve gastrectomy | | | | [address] | Ave [place], [place] | (Primary Dx) | | | | Mailcode: Center | [address] | | | | | for Health and | [phone] | | | | | [facility] 2 | | | | | | [place], [place] | | | | | | [address] | | | | | | [phone] | | | +--------+---------+ + + + [...] that weight 28 puonds 04/17. .lives in [place]. Goal is 400 for this year He [...] 4 Tabs by mouth once daily. Ad testing coordinator with evening meal. 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 He has been [...] to POC and will call or send [employer] message if any issues. Start time 1150, end time 1220. I spent a total of 30 minutes face to face with this silvino ent. Over 50% of visit was in counseling. Kristan Goldsmith DNP, ACNP, HOTBED OPERATOR Nurse Practitioner for Bariatric Surgery [facility] | [facility] [address] | [place], [place] | [address] | documented in this en counter Plan of Treatment Not on filedocumented as of this encounter Visit Diagnoses + + | Diagnosis | + + | S/P laparoscopic sleeve gastrectomy - Primary | + + documented in this encounter
--- OUTSIDE RECORDS SUMMARY | ~2020-04-13 | XMS | Encounter Summary ---
Demographics + + + | Address | [address] | | | [place] [address] | + + + | Home Phone [...] + | Tico Burns | ECON | [address] | | | | | [place], [place] | | | | | [address] | | + + + + + Care Team Providers + +------+ + | Care Administrative Underwriter Name | Role | Phone | + [...] | | 2016 | | Center at [facility] [address] | MD [address] [facility] | - General | | | | [address] | [address] | | | | | Mailcode: Center | [place], [place] | | | | | [facility] and | [address] | | | | | [facility] 2 | [phone] | | | | | [place], [place] | | | | | | [address] | | | | | | [phone] | | | +--------+ + + + [...]
--- OUTSIDE RECORDS SUMMARY | ~2020-04-13 | XMS | Encounter Summary ---
Demographics + + + | Address | [address] | | | [place] [address] | + + + | Home Phone | | + + + | Preferred Language | Unknown | + + + | Marital Status | | + + + | Restoration Affiliation | CHR | + + + | Race | White | + + + | Ethnic Group | Not or | + + + Author + + + | Author | [facility] | + + + | Organization | [facility] | + + + | Address | Unknown | + + + | Phone | Unavailable | + + + Support + + + + + | Name | Relationship | Address | Phone | + + + + + | Tico Burns | ECON | [address] | | | | | [place], [place] | | | | | [address] | | + + + + + Care Team Providers + +------+ + | Care Golf Player Assistant Name | Role | Phone | + +------+ + | Moe Bella MD | PCP | | + +------+ + Reason for Visit + + + | Reason | Comments | + + + | Return Patient | | + + + Consultation (Routine) +--------+--------+ + + + + | Status | Reason | Specialty | Diagnoses / | Referred By | Referred To | | | | | Procedures | Contact | Contact | +--------+--------+ + + + + | Closed | | Surgery | Diagnoses | Kira, | Chris, | | | | | Bariatric | Mckenna Parry, | MD Jesus | | | | | surgery | [address] | [address] | | | | | status | [address] | [facility] | | | | | Procedures | [address] | Rd [place], | | | | | CONSULT TO | [place], [place] | [place] | | | | | BARIATRIC | [address] | [address] | | | | | SURGERY | Phone: | Phone: | | | | | | [phone] | [phone] | | | | | | Fax: | Fax: | | | | | | [phone] | [phone] | +--------+--------+ + + + + Encounter Details +--------+---------+ + + + | Date | Type | Department | Care Team | Description | +--------+---------+ + + + | 01/30/ | Office | Digestive Health | Kristan Miranda, | Morbid obesity, | | 2017 | Visit | [facility] [address] | ACNP [address] | unspecified obesity | | | | [address] | Ave [place], [place] | type (HCC) (Primary | | | | Mailcode: Center | [address] | Dx); History of | | | | for Health and | | sleeve gastrectomy; | | | | Healing, Building 2 | | Vitamin D deficiency | | | | [place], [place] | | disease; Vitamin B | | | | [address] | | 12 deficiency; | | | | | | Intertriginous | | | | | | candidiasis; Skin | | | | | | breakdown | +--------+---------+ + + + Social History [...] Instructions Patient Instructions Kristan Goldsmith ACNP - 01/30/2017 2:00 PM PDT So, get your labs. We will get a upper GI and evaluate the size of the sleeve, And then figure out a plan Including figuring out the insurance coverage. documented in this encounter Progress Notes Kristan Goldsmith ACNP - 01/30/2017 2:00 PM PDTFormatting of this note might be different fro m the original. BARIATRIC FOLLOW-UP Gerard Burns is a 51 y.o. patient who underwent a sleeve gastrectomy (open) iin [address] Perez. He was last seen in follow up 2 years ago. He has recently been seen in plastic surgery for evaluation for panniculectomy, with recomm endations that he lose More weight. He currently requires insulin with a recent A1C of 14. He has a marked protrub erant abdomen And struggles with ongoing skin rashes under this immense pannus. When seated the pannus ex tends to his Knees. He saw the dental specialist prior to my appointment. Currently is able to drink a quart of water at a sitting, no food restriction. No food sticks, able to drink soda, without pain or discomfort. Uses a straw Daily. Has cut out all carbs. 3-4 ounces of protein. Has been trying to follow closely our diet recommendations per his r eport. Now at 430 to 439 at 6 months. 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 Op-report reviewed. Labs reviewed. Weight At time of surgery : 567--> 435 BMI 66 today. ALLERGIES: Allergies Allergen Reactions Codeine Rash Rash all over arms Current Outpatient Prescriptions: Aspirin 81 mg Oral Tablet, Take 81 mg by mouth once daily . , Disp: , Rfl: Calcium Citrate-Vitamin D3 [...] 4 Tabs by mouth once daily. Ad supply cataloguer with evening meal. Indications: TYPE 2 DIABETES [...] Cholelithiasis Prevention, Disp: 60 Cap, Rfl: 5 History: Past Medical History: Diagnosis Date Cancer (HCC) 2011 Depressed 2011 Diabetes mellitus (HCC) 2006 Diabetes mellitus type II High cholesterol HTN (hypertension) Intertriginous candidiasis Leg sore Numbness 2007 hands and feet Sleep apnea on CPAP Thyroid disease 2011 Past Surgical History Procedure Laterality Date Thyroid removal Gastric bypass attempted Fatty tumor excision 04/11/2013 Lower abdomen Gastrectomy, sleeve 01/2013 open. [facility] Dr. 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 Social History Main Topics Smoking status: Never Smoker Smokeless tobacco: Never Used Alcohol use 0.0 oz/week 0 drink(s) per week Comment: very rare Drug use: No Sexual activity: Not on file Other Topics Concern Not on file Social History Narrative to Shilpi Family History Problem Relation Arthritis Father Bariatric Medications: takes the below intermittently MVI with iron twice daily: yes Calcium citrate 1500mg daily: yes Vitamin D 1000 mg daily : no B12 500mcg SL daily or monthly shot: yes Symptoms: Nausea: None Dysphagia: None Vomiting: None Heartburn: None Abd Pain: None Constipation: None Diarrhea: None Exam General- Alert and oriented x4, WD, WN, NAD, well appearing Well hydrated: moist mucous membranes Abd - Soft, NT, NR, NG Assessment/Plan: 1. S/P sleeve gastrectomy, 2012. He has lost about 100 pounds. Still requires insulin for D M, increasing issues With the rashes/ skin breakdown of the immense pannus. He describes the ability to drink/ea t large volumes of food Which argues for a large sized sleeve. Plan: UGI to evaluate the size of the sleeve (in [place], order provided) Following results: discuss with surgeon Evaluate insurance coverage. 2. Labs today: I have provided the print out for him to get these in [place] CBC, CMP, B12, PTH, vit D, ferritin 3.Take acid administrative executive (omeprazole) for first 3 mos, then wean off over 2 wks. This is to pre vent ulcers. Take this medication even if you have NO symptoms. 4. Use ursodiol ( Actigall) for first 6 months after surgery, it prevents gallstones. See PCM for adjusting any other medications. Call if any abd pain, n/v/d or other issues. Pt agrees to POC and will call or send [employer] message if any issues. Start time 1515, end time 1545. I spent a total of 30 minutes face to face with this silvino ent. Over 50% of visit was in counseling. Kristan Goldsmith DNP, ACNP, DRYING OVEN ATTENDANT Nurse Practitioner for Bariatric Surgery [facility] | [facility] [address] | [place], [place] | [address] | documented in this en counter Plan of Treatment Not on filedocumented as of this encounter Visit Diagnoses + + | Diagnosis | + + | Morbid obesity, unspecified obesity type (HCC) - Primary | + + | History of sleeve gastrectomy | + + | Vitamin D deficiency disease Unspecified vitamin D deficiency | + + | Vitamin B 12 deficiency Other B-complex deficiencies | + + | Intertriginous candidiasis Candidiasis of skin and nails | + + | Skin breakdown Other specified hypertrophic and atrophic condition of skin | + + documented in this encounter
--- OUTSIDE RECORDS SUMMARY | ~2020-04-13 | XMS | Encounter Summary ---
Demographics + + + | Address | [address] | | | [place] [address] | + + + | Home Phone | | + + + | Preferred Language | Unknown | + + + | Marital Status | | + + + | Shinto Affiliation | CHR | + + + [...] + | Tico Burns | ECON | [address] | | | | | [place], [place] | | | | | [address] | | + + + + + Care Team Providers + +------+ + | Care Veneer Department Manager Name | Role | Phone | + +------+ + | Moe Bella MD | PCP | | + +------+ + Encounter Details +--------+ + + + + | Date | Type | Department | Care Team | Description | +--------+ + + + + | 11/28/ | Primer Supervisor | Digestive Health | Violetta Byers, | Morbid obesity (HCC) | | 2012 | | Center at [facility] [address] | SUPERVISOR HARVESTING [address] | (Primary Dx); DM | | | | [address] | , [address] | (diabetes mellitus) | | | | Mailcode: Center | [place], [place] | ([facility]); Hypertension; | | | | for Health and | [address] | Hyperlipidemia; | | | | [place] [address] | [phone] | Vitamin d | | | | [place], [place] | | deficiency; GERD | | | | [address] | | (gastroesophageal | | | | [phone] | | reflux disease) | +--------+ + [...] | + + | DM (diabetes mellitus) ([facility]) Type II or unspecified type diabetes [...]
--- OUTSIDE RECORDS SUMMARY | ~2020-04-13 | XMS | Encounter Summary ---
Demographics + + + | Address | [address] | | | [place] [address] | + + + | Home Phone | | + + + | Preferred Language | Unknown | + + + | Marital Status | | + + + | Holiness Affiliation | 1013 | + + + | Race | Unknown | + + + | Ethnic Group | Unknown | + + + Author + + + | Author | [facility] | | | and [place] | + + + | Organization | [facility] | | | and [place] | + + + | Address | Unknown | + + + | Phone | Unavailable | + + + Support + + + + + | Name | Relationship | Address | Phone | + + + + + | Milady Burns | ECON | [address] | | | | | [place] | | | | | [address] | | + + + + + Care Team Providers + +------+ + | Care Septic Tank Service Technician Name | Role | Phone | + +------+ + | Moe Bella MD | PCP | | + +------+ + Reason for Visit +---------+ + | Reason | Comments | +---------+ + | Results | | +---------+ + Encounter Details +--------+ + + + + | Date | Type | Department | Care Team | Description | +--------+ + + + + | 05/22/ | Telephone | [facility] [place] | Chauncey Lee MD | Results | | 2015 | | NEUROSURGERY [address] | [address] | | | | | [address] | [place] [address] | | | | | [place], [place] | [phone] | | | | | [address] | | | | | | [phone] | | | +--------+ + + + [...]
--- OUTSIDE RECORDS SUMMARY | ~2020-04-13 | XMS | Encounter Summary ---
Demographics + + + | Address | [address] [facility] | | | [place] [address] | + + + | Home Phone [...] + | Tico Burns | ECON | [address] | | | | | [place], [place] | | | | | [address] | | + + + + + Care Team Providers + +------+ + | Care Corporate Sales Representative Name | Role | Phone | + +------+ + | Moe Bella MD | PCP | | + +------+ + Encounter Details +--------+ + + + + | Date | Type | Department | Care Team | Description | +--------+ + + + + | 07/31/ | Telephone | Digestive Health | Jesus Perez, | | | 2012 | | [place] [address] | [address] | | | | | [place] Mailcode: [facility] | [facility] | | | | | [facility] | [place], [place] | | | | | and Healing, | [address] | | | | | [address] | [phone] | | | | | Floor [place], [place] | | | | | | [address] | | | | | | [phone] | | | +--------+ + + + [...]
--- OUTSIDE RECORDS SUMMARY | ~2020-04-13 | XMS | Encounter Summary ---
Demographics + + + | Address | [address] [facility] [facility] | | | [place] [address] | + + + | Home Phone [...] + + + | Author | [facility] | + + + | Organization | [facility] | + + + | Address | Unknown | + + + | Phone | Unavailable | + + + Support + + + + + | Name | Relationship | Address | Phone | + + + + + | Tico Burns | ECON | [address] | | | | | [place], [place] | | | | | [address] | | + + + + + Care Team Providers + +------+ + | Care Stylist Assistant Name | Role | Phone | + +------+ + | Moe Bella MD | PCP | | + +------+ + Encounter Details +--------+ + + + + | Date | Type | Department | Care Team | Description | +--------+ + + + + | 04/25/ | Abstract Searcher | Digestive Health | Violetta Byers, | Bariatric surgery | | 2012 | | Center at [facility] [address] | BACK END ARCHIT[address] | status (Primary Dx) | | | | [address] | [address] | | | | | Mailcode: Center | [place], [place] | | | | | for Health and | [address] | | | | | [place] [address] | [phone] | | | | | [place], [place] | | | | | | [address] | | | | | | [phone] | | | +--------+ + + + [...]
--- OUTSIDE RECORDS SUMMARY | ~2020-04-13 | XMS | Encounter Summary ---
Demographics + + + | Address | [address] | | | [place] [address] | + + + | Home Phone | | + + + | Preferred Language | Unknown | + + + | Marital Status | | + + + | Tenriism Affiliation | 1013 | + + + | Race | Unknown | + + + | Ethnic Group | Unknown | + + + Author + + + | Author | [facility] | | | and [place] | + + + | Organization | [facility] | | | and [place] | + + + | Address | Unknown | + + + | Phone | Unavailable | + + + Support + + + + + | Name | Relationship | Address | Phone | + + + + + | Milady Burns | ECON | [address] | | | | | [place], [place] | | | | | [address] | | + + + + + Care Team Providers + +------+ + | Care Pastry Baker Name | Role | Phone | + [...] + + | 02/23/ | Telephone | [facility] [place] | Vannessa Taylor | Other | | 2020 | | [address] | [address] | | | | | [address] | [facility] | | | | | [place] | [address] [place] | | | | | [address] | [address] | | | | | [phone] | | | +--------+ + + + [...]
--- OUTSIDE RECORDS SUMMARY | ~2020-04-13 | XMS | Encounter Summary ---
Demographics + + + | Address | [address] | | | [place] [address] | + + + | Home Phone | | + + + | Preferred Language | Unknown | + + + | Marital Status | | + + + | Confucianism Affiliation | CHR | + + + [...] + | Tico Burns | ECON | [address] | | | | | [place], [place] | | | | | [address] | | + + + + + Care Team Providers + +------+ + | Care Customer Success Representative Name | Role | Phone | + +------+ + | Moe Bella MD | PCP | | + +------+ + Reason for Referral Consultation (Routine) +--------+ + + + + + | Status | Reason | Specialty | Diagnoses / | Referred By | Referred To | | | | | Procedures | Contact | Contact | +--------+ + + + + + | Closed | Specialty | Endocrinology | Diagnoses | Conser, | Vibha, | | | Services | Diabetes & | Morbid | Violetta Sweeney NP | MD Satya | | | Required | Metabolism | obesity | [address] | [address] | | | | | (HCC) | [address], | [address] | | | | | Depression | [address] | [place], [place] | | | | | BMI 70 and | [place], [place] | [address] | | | | | over, adult | [address] | Phone: | | | | | ([facility]) | Phone: | [phone] | | | | | Procedures | [phone] | Fax: | | | | | CONSULT TO | Fax: | [phone] | | | | | ENDO | [phone] | | | | | | [address] | | | | | | | [address] | | | | | | | | | | | | | | [address] | | | +--------+ + + + + + Consultation (Routine) +--------+--------+ + + + + | Status | Reason | Specialty | Diagnoses / | Referred By | Referred To | | | | | Procedures | Contact | Contact | +--------+--------+ + + + + | Closed | | Pain | Diagnoses | Conser, | Fundraising Director Psych | | | | Management | Morbid | Violetta M [facility] [employer]ER | [address] | | | | | obesity | [address] | | | | | ([facility]) | [address], | Mailcode: | | | | | Depression | [address] | [facility] | | | | | Procedures | [place], [place] | for Health | | | | | CONSULT TO | [address] | and Healing, | | | | | PAIN CENTER | Phone: | [address], | | | | | | [phone] | 15th Floor | | | | | | Fax: | [place], [place] | | | | | | [phone] | [address] | | | | | | | Phone: | | | | | | | [phone] | | | | | | | Fax: | | | | | | | [phone] | +--------+--------+ + + + + Reason for Visit + + + | Reason | Comments | + + + | New patient | | | consultation | | + + + Office Visit - E/M Services (Routine) +--------+--------+ + + + + | Status | Reason | Specialty | Diagnoses / | Referred By | Referred To | | | | | Procedures | Contact | Contact | +--------+--------+ + + + + | Closed | | Surgery | Diagnoses | Shayne | Francois | | | | | Morbid | Moe Fowler, | [facility] | | | | | obesity | MD [address] | | | | | (HCC) Type | [place] | [address] | | | | | II or | [address] | Mailcode: | | | | | unspecified | [place], | [facility] | | | | | type | [place] [address] | Health and | | | | | diabetes | Phone: | Healing, | | | | | mellitus | [phone] | [address] | | | | | without | Fax: | [place], [place] | | | | | mention of | [phone] | [address] | | | | | complication | | Phone: | | | | | , not stated | | [phone] | | | | | as | | Fax: | | | | | uncontrolled | | [phone] | +--------+--------+ + + + + Encounter Details +--------+---------+ + + + | Date | Type | Department | Care Team | Description | +--------+---------+ + + + | 06/10/ | Office | Dig[facility]ive Health | Violetta Byers, | Morbid obesity (HCC) | | 2011 | Visit | Center at [address] | [facility] [employer] [facility] [address] | (Primary Dx); | | | | [address] | , [address] | Depression; BMI 70 | | | | Mailcode: Center | [place], [place] | and over, adult | | | | for Health and | [address] | ([facility]); | | | | Healing, [address] | [phone] | Nephrolithiasis; DM | | | | [place], [place] | | (diabetes mellitus) | | | | [address] | | ([facility]); Hypertension; | | | | [phone] | | Hyperlipidemia; | | | | | | Panniculitis; Edema | +--------+---------+ + + + Social History [...] + + + | Blood Pressure | 186/60 | 06/10/2012 12:55 PM | | | | | PDT | | + + + + + | Pulse | 59 | 06/10/2012 12:55 PM | | | | | PDT | | + + + + + | Temperature | 36.6 C (97.9 F) | 06/10/2012 12:55 PM | | | | | PDT | | + + + + + | Respiratory Rate | 18 | 06/10/2012 12:55 PM | | | | | PDT | | + + + + + | Oxygen Saturation | - | - | | + + + + + | Inhaled Oxygen | - | - | | | Concentration | | | | + + + + + | Weight | 252 kg (555 lb 9.6 | 06/10/2012 12:55 PM | | | | oz) | PDT | | + + + + + | Height | 177.8 cm (5' 10") | 06/10/2012 12:55 PM | | | | | PDT | | + + + + + | Body Mass Index | 79.72 | 06/10/2012 12:55 PM | | | | | PDT | | + + + + + documented in this encounter Patient Instructions Patient Instructions Violetta Byers NP - 06/10/2012 1:51 PM PDTPlan: 1. Dietitian consultation: Today. 2. Labs needed: Fasting lipids, CBC, CMP, TSH, A1C, PTH, Vitamin D25, H pylori: Please talk with your PCP about getting these labs done. 3. Pre-op Psychological Evaluation: If your referral is at [facility], pain management will call you in the next week to schedule. 4. Sleep study: Please undergo a sleep study and have notes/tests faxed to us. 5. Cardiology Consult: A cardiology provider needs to evaluate your cardiac function and le t us know if you can proceed with with bariatric surgery. 6. Please call [facility] ([phone]) and have them send you a urine specimen container. If your oxalate levels are very high, you will need to discuss your kidney stone risk with a nephrology provider prior to proceeding with gastric bypass. 7. Recommended weight loss: 5% wt loss goal of 525, (lose 30lbs) Once the above list is completed and copies have been received by our office, we will submi t for insurance authorization then schedule with the surgeon[place] [address] Potential Contraindications to Bariatric Surgery Age over 69 BMI over 60 Oxygen dependence Immobility wheelchair or bed bound Cardiac issues such as ischemic heart disease as indicated on cardiac stress test or cardia c catheterization; severe or uncompensated heart failure which may be indicated by a decreas ed ejection fraction. Pulmonary issues such as untreated sleep apnea, obesity hypoventilation syndrome, severe CO PD or asthma. Liver disease such as cirrhosis, esophageal varices, or portal hypertension. Severe, untreated renal disease. Rheumatologic and other diseases requiring immune suppressant medications. Untreated or active cancer. Untreated psychological disability. If you have any of the above conditions, you may not be a candidate for bariatric surgery. Our program will perform a thorough evaluation prior to making such a determination. This evaluation may involve testing or consultations. We will make every effort to notify patien ts who are not candidates for surgery as early in the process as possible, but it is importa nt to realize that the surgeon may make that determination later in the process. Clearance for surgery by your PCP or other providers does not guarantee that the [facility] Bariatric Surger y program will deem you a surgical candidate. documented in this encounter Progress Notes Violetta Byers NP - 06/10/2012 1:26 PM PDTFormatting of this note might be different fr om the original. BARIATRIC INITIAL VISIT Provider: ELIZABETH June Referring Provider: Dr. Bella Reason for Requested Consultation: Initial evaluation for bariatric surgery. Gerard Burns is interested in Marina en y gastric bypass. The pt is here with his , she will be at home to help with post-op care after surgery. History of Present Illness: He is a morbidly obese, 47 y.o. male with a BMI of 79, 555 lbs ., and 70 inches who has failed prior attempts at sustained dietary/medical weight loss and desires surgical weight loss in order to "improve health, live longer, feel better and be ar ound for my family". Duration of obesity: 28 years. Onset of obesity at age 19 First diet attempts at age 19 Personally initiated diets: exercise, lost 25 lbs, regained 5. Programmatic diets: 2006, weight watchers, lost 25, regained 40. Physician Monitored diet: 2010, Dr. Mukherjee, lost 20 lbs. Use of Redux or Phen/fen: no Transthoracic ECHO: - Confucianism or cultural reason you would refuse blood products? no Comorbidities include: Type 2 diabetes, intertrigenous skin infections, hypertension and hy perlipidemia All previous chart notes from PCP reviewed, previous tests and labs reviewed. ALLERGIES: Allergies Allergen Reactions Codeine Rash Rash [...] times daily. , Disp: , Rf l: VITAMIN A/VITAMIN D2 (VITAMIN A & ERGOCALCIFEROL,D2, ORAL), Take by mouth. 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 Has ongoing issues with infections under pannus, seeing Christine Montezuma for discussion on panniculectomy. Eyes/Ears/Nose/Throat: Denies visual changes, sore throat, dental pain, hoarseness, dyspha ayah, oral or tongue lesions. Respiratory: Denies shortness of breath, cough or wheezing. Denies nocturnal snoring, dayt kevan drowsiness or morning headaches. Denies history of asthma. Has spoke with PCP about gett ing sleep study done, has not been done yet. Cardiovascular: Denies exertional chest pain, palpitations, syncope, orthopnea, or paroxys mal nocturnal dyspnea. Denies history of lower extremity edema. Denies CHF, MA, ischemic hea rt disease, DVT/PE, or pulmonary hypertension. States able to climb two flights of stairs. H as HTN and hyperlipidemia, controlled with medications. Neurologic: The patient denies any symptoms of neurological impairment or TIAs; denies dip lopia, dysphasia or unilateral disturbance of motor or sensory function. Denies loss of wallace nce or vertigo, persistent headaches, numbness or paresthesias. No history of seizure disord er. Musculoskeletal: Has lower back pain, has some knee pain, able to walk. Gastrointestinal: Denies abdominal or flank pain, anorexia, dysphagia, change in bowel hab its, black or bloody stools. Denies history of ulcers or hernias. Denies persistent reflux s ymptoms. Denies history of liver disease or jaundice. Has some nausea and vomiting related t o anxiety. Genitourinary: Denies urinary incontinence. Denies urethral discharge, dysuria, hematuria or sores on the genitals. Denies lumps or pain in the testicles. Denies prostate sx. Has cook d multiple kidney stones, had one 6 mos ago. Skin: Denies recent rashes, sores, or skin changes. Has intertrigo. Psychological: Denies anxiety, thoughts of suicide or hallucinations. Has depression, taki ng daily prozac, stable at this time. Heme/Lymphatic: Denies history of anemia. The patient denies abnormal bruising, abnormal b leeding or enlarged lymph nodes. Metabolic: No polyuria, polyphagia or polydipsia. Denies history of gout. Has hypothyroidis m, thyroid removed due to cancer, taking daily replacement. Has had DM for more than 7 years . Has been on injectable insulin for 4 years. OBJECTIVE BP 186/60 | Pulse 59 | Temp (Src) 36.6 C (97.9 F) (Oral) | RR 18 | Ht 1.778 m (5' 10") | Wt 252.019 kg (555 lb 9.6 oz) | BMI 79.72 kg/(m^2) Physical exam: General: Alert and cooperative. Neuro: Oriented x 3. CN III-XII grossly intact. No focal deficits. HEENT: Oropharynx clear without lesion or exudate. Neck: Neck supple. No adenopathy. Thyroid symmetric & normal size. Respiratory: Good diaphragmatic excursion. Lungs clear to auscultation bilaterally. Cardiac: Regular rate and rhythm, no murmur, gallop or bruits. No carotid bruits noted. Extremities: Moderate +1 extremity edema, skin is dark on shins. Abdomen: Obese, highly hostile surgical habitus, very large pannus, soft, nontender, no nasra reciable masses or hernia. There is a well healed vertical incision from previous attempted gastric bypass. Skin: unable to assess pannus at this visit. Psych: No problems noted. Impression: 1. Previous gastric bypass attempt done in [place], the op-report is scanned into [facility] for review. Part of jejunum was removed during this procedure. Pt would like gastric bypass, may be unable to do this due to previous surgery, sleeve gastrectomy may be best option. I spoke frankly with this pt about the necessity for weight loss prior to being able to off er him a surgical weight loss procedure. He is agreeable with this plan. 2. DM- on inj insulin, will need to get more recent A1C. 3. Hyperlipidemia, taking daily medication. 4. Hypertension, not well controlled at this time, taking 3 daily medications. 5. Large pannus with recurrent paniculitis. Will need panniculectomy in future. Pt already has plastic surgeon in [place] he is working with. 6. Nephrolithiasis, recurrent stones, pt agrees to do litholink 24 hour urine prior to surg vaishali, will look at oxalate levels, if above 40 may consider referral to nephrology and repeat litholink on low oxalate diet. Patient meets and or exceeds NIH criteria for morbid obesity with a BMI of 79 and comorbidi ties related to obesity including DM, HTN, hyperlipidemia, depression, panniculitis, intertr igo, which may be improved with bariatric surgery. Records have been reviewed from his PCM and several attempts have been made to lose weight over the past years without success. He qualifies for medically necessary weight loss surgery to control co-morbidities. He has attended the Public Informational Session in which risks and benefits of bariatric surgery were discussed. Discussion of realistic expectations of bariatric surgery was held today. A Bariatric notebook with pre-op, inter-op and post-op guidance and information was provide d for the patient today. Plan: 1. Dietitian consultation: Today. 2. Labs needed: Fasting lipids, CBC, CMP, TSH, A1C, PTH, Vitamin D25, H pylori: Please talk with your PCP about getting these labs done. 3. Pre-op Psychological Evaluation: If your referral is at [facility], pain management will call you in the next week to schedule. 4. Sleep study: Please undergo a sleep study and have notes/tests faxed to us. 5. Cardiology Consult: A cardiology provider needs to evaluate your cardiac function and le t us know if you can proceed with with bariatric surgery. 6. Please call [facility] ([phone]) and have them send you a urine specimen container. If your oxalate levels are very high, you will need to discuss your kidney stone risk with a nephrology provider prior to proceeding with gastric bypass. 7. Recommended weight loss: 5% wt loss goal of 525, (lose 30lbs) Once the above list is completed and copies have been received by our office, we will submi t for insurance authorization then schedule with the surgeon. [facility] [address] [place] [address] Potential Contraindications to Bariatric Surgery Age over 69 BMI over 60 Oxygen dependence Immobility wheelchair or bed bound Cardiac issues such as ischemic heart disease as indicated on cardiac stress test or cardia c catheterization; severe or uncompensated heart failure which may be indicated by a decreas ed ejection fraction. Pulmonary issues such as untreated sleep apnea, obesity hypoventilation syndrome, severe CO PD or asthma. Liver disease such as cirrhosis, esophageal varices, or portal hypertension. Severe, untreated renal disease. Rheumatologic and other diseases requiring immune suppressant medications. Untreated or active cancer. Untreated psychological disability. If you have any of the above conditions, you may not be a candidate for bariatric surgery. Our program will perform a thorough evaluation prior to making such a determination. This evaluation may involve testing or consultations. We will make every effort to notify patien ts who are not candidates for surgery as early in the process as possible, but it is importa nt to realize that the surgeon may make that determination later in the process. Clearance for surgery by your PCP or other providers does not guarantee that the [facility] Bariatric Surger y program will deem you a surgical candidate. New pt visit, over 50% of time spent in counseling. I spent 60 min total with this patient. documented in this e ncounter Plan of Treatment Not on filedocumented as of this encounter Visit Diagnoses + + | Diagnosis | + + | Morbid obesity (HCC) - Primary Morbid obesity | + + | Depression Depressive disorder, not elsewhere classified | + + | BMI 70 and over, adult ([facility]) Body Mass Index 70 and over, adult | + + | Nephrolithiasis Calculus of kidney | + + | DM (diabetes mellitus) ([facility]) Type II or unspecified type diabetes mellitus without | | mention of complication, not stated as uncontrolled | + + | Hypertension Unspecified essential hypertension | + + | Hyperlipidemia Other and unspecified hyperlipidemia | + + | Panniculitis Panniculitis, unspecified site | + + | Edema | + + documented in this encounter
--- OUTSIDE RECORDS SUMMARY | ~2020-04-13 | XMS | Encounter Summary ---
Demographics + + + | Address | [address] | | | [place] [address] | + + + | Home Phone [...] + | Tico Burns | ECON | [address] | | | | | [place], [place] | | | | | [address] | | + + + + + Care Team Providers + +------+ + | Care Lab Nurse Name | Role | Phone | + +------+ + | Moe Bella MD | PCP | | + +------+ + Encounter Details +--------+ + + + + | Date | Type | Department | Care Team | Description | +--------+ + + + + | 10/11/ | Abstract | Dig[facility]ive Health | Violetta Byers, | | | 2011 | | Center at [facility] [address] | ACLS NURSE [address] | | | | | [address] | [facility] [address] | | | | | Mailcode: Center | [place], [place] | | | | | for Health and | [address] | | | | | [facility] [address] | [phone] | | | | | [place], [place] | | | | | | [address] | | | | | | [phone] | | | +--------+ + + + [...]
--- OUTSIDE RECORDS SUMMARY | ~2020-04-13 | XMS | Encounter Summary ---
Demographics + + + | Address | [address] | | | [place] [address] | + + + | Home Phone [...] + | Tico Burns | ECON | [address] | | | | | [place], [place] | | | | | [address] | | + + + + + Care Team Providers + +------+ + | Care Book Mender Name | Role | Phone | + [...] + + + + | 01/08/ | Hospital | [facility] [address] | Jesus Perez, | | | 2013 - | Encounter | [address] | [place] [address] [facility] | | | | | [place], [place] | [address] | | | 01/11/ | | [address] | [place], [place] | | | 2012 | | [phone] | [address] | | | | | | [phone] | | | | | | | [...] narcotic pain medications, please call the clinic ([phone] ) by 2 pm on for any [...] during the day time hours by calling [facility] surgery office at [phone] - After hours, weekends and holidays, you may call the hospital booster station operator at [phone] an d have the universal branch consultant Green Team for general surgery paged. Constipation Prevention [...] kg/(m^2). Outstanding labs/studies: None Discharging Physician: JORGE ACBAN MD Attending Physician: Jesus Perez MD documented [...] Intake/Output Summary (Last 24 hours) at 01/11/13 0817 Last data filed at 01/11/13 0500 Gross per 24 hour Intake 195 ml Output 2960 ml Net -2765 ml Physical Exam: Difficult exam secondary to obesity. General: AOX3, NAD Respiratory: CTA-B Cardiovascular: RRR, no MGR Abdomen: Soft, nontender, nondistended. Wound clear and dry. Skin: wwp, non-diaphoretic Extremities: minimal edema Chemistries: Last 72 Hours (or 3 results): Recent Labs Basename 01/11/13 03201/10/132 01/09/13 0406 NA 141 141 142 K 3.5 4.0 4.0 CL 102 105 106 BICARB 27 28 27 BUN 7 8 11 CR 0.71 0.71 0.77 CA 8.6 8.6 8.5* MG 1.4* 1.8 1.7* PO4 3.0 2.7 3.8 CBC with diff last 72 hours (or 3 results) Recent Labs Basename 01/11/1332601/10/132 01/09/13 0406 WBC 6.6 7.2 8.5 HB 10.6* [...] pain related concerns for us to add ress. Zahra Dong MD, PGY1 Anesthesia [employer] Teacher Pager [phone] Florencia Ivy MD - 01/10/2013 7:49 AM PSTSURGERY INPATIENT PROGRESS NOTE Hospital Day:2 Author; FLORENCIA KATHLEEN MD, MIS/Bariatric Fellow, Pager [phone] Attending Physician: Jesus Perez MD Surgical Issues: [...] BLOCK PROGRESS NOTE 01/10/2013 Author: Stephanie Horan CONTROL CLERK REPAIRS POD# 2. Status post: 1. Attempted laparoscopic [...] and recommendations with primary care team provider [facility] RESHMA bey Surgery. . For today's evaluation, I have included my personal review of Mr. Burns's history and ph ysical examination. I also used the following components in my medical decision making: Laboratory studies reviewed. Review and summary of old medical records (source: [employer]), as summarized in the body of the note. Stephanie Horan NP Adult Pain Service Pager [phone] Team Pager [phone] BILLING INFORMATION [facility] DEPARTMENT: [phone] Place of Service:- Inpatient Date of Service: 01/10/2013 CSN: [id number] Suggested Modifier: None Suggested CPT: 33023 - Daily mgmt epidural/subarachnoid drug administration Prolonged service: n/a Florencia Ivy MD - 01/09/2013 12:53 PM PSTSURGERY INPATIENT PROGRESS NOTE Hospital Day:1 Author; FLORENCIA KATHLEEN MD, MIS/Bariatric Fellow, Pager [phone] Attending Physician: Jesus Perez MD Surgical Issues: [...] days. Epidural per APS. Kalina Adame AC CONTROL CLERK REPAIRS - 01/09/2013 11:29 AM PST Inpatient Progress [...] 01/09/13 07 Last data filed at 01/09/13 07 Gross per 24 hour Intake 4885 ml [...] DISPO - requires acute care CRISTIN HOBSON [facility] [address] [place] [address] This assessment and plan was formulated both [...] mellitus 2006 Thyroid disease 2010 Cancer 2010 Mr. Burns [...] infusion Epidural CONTINUOUS 14 m L/hr at 01/08/13 194 lactated ringers IV 150 mL/hr Intravenous CONTINUOUS [...] studies reviewed. STEPHANIE HORAN NP BILLING INFORMATION [facility] DEPARTMENT: [phone] Place of Service:- Inpatient Date of Service: 01/09/2013 CSN: [id number] Suggested Modifier: None Suggested CPT: 09060 - Daily mgmt epidural/subarachnoid drug administration Prolonged service: n/a Hedy Villa - 2012 6:46 AM PSTMedical student progress note Overnight events/S: Mr. Burns is feeling well this morning. He did not get a lot of sle ep due to noise on the floor, but his pain (2/10, achy pain around incision site) is well co ntrolled and he is only using his BOX ICER pump about once an hour. He has [...] oral meds and tolerating PO. Hedy Wood [id number] signed by CRISTIN Hobson at 01/10/2013 12:06 [...] RT Continue current care. Alfonso Sousa MD [employer] Patching Machine Operator, PGY-1 Pager: [phone] [facility] [place] [phone] ung, MD Yahaira - 01/08/2013 3:37 PM [...] | + +--------+ + + + | YUMI (MANUEL) POC | Routin | 01/08/2013 | | Results for this | | ISTAT | e | 4:32 PM | | procedure are in the | | | | PST | | results section. | + +--------+ + + + | HEMOGLOBIN-BLAYNE, POC | Routin | 01/08/2013 | | [...] + | CHLORIDE, POC | Routin | 01/08/2013 | | Results for this | | | e | 4:32 PM | | procedure are in the | | | | PST | | results section. | + +--------+ + + + | JOS SHARI CA, POC | Routin | 01/08/2013 | | [...] BLADDER | ve | 12:45 PM | ([facility]) | | | HYDRODISTENSION | Surgic [...] | | ve | 12:45 PM | (HCC) | | | | Surgic | PST [...] + | [facility] | [address] | [place], [place] | | | [facility]NA CON[facility]LLY OF [facility] | [facility] | [address] | | | TESTS | | | [...] [facility] | [address] | [place] [address] | | | SERVICES, CORE | PARK [...] [facility] | [address] | [place] [address] | | | SERVICES, CORE | PARK [...] | + + + + + | [facility] | [address] | [place] [address] | | | SERVICES, CORE | TJ BULLOCK | | | + [...] [facility] | [address] | [place] [address] | | | SERVICES, CORE | PARK [...] | + + + + + | [facility] | [address] | [place] [address] | | | SERVICES, CORE | TJ [...] [facility] | [address] | [place], [place] | | | BRIANNA CONNOLLY OF [place] | [address] | [address] | | | TESTS | | | [...] + + | [facility] | [address] | [place], [place] | | | [facility]EN [facility] | [address] | [address] | | | TESTS | | | | + + + + + OPERATION RECORD (01/10/2013 8:03 AM PST) + + | Transcriptions | + + | Florencia Kathleen MD - 01/09/2013 7:00 PM PST Date: 01/08/2013 | | | | Attending Surgeon: Jesus Perez M.D. | | | | Rate Analyst(s): Florencia Kathleen MD | | | | [...] Biosyn and Indermil. Previously, a | | 19-Icelandic round Delvin drain was placed to the [...] | | | | | | Jesus Deveney, M.D. | | | | ME / HS | | [id number] / [id number] / [id number] / | | | | | + [...] [facility] | [address] | [place] [address] | | | SERVICES, CORE | TJ [...] [facility] | [address] | [place] [address] | | | SERVICES, CORE | PARK [...] | + + + + + | [facility] | [address] | [place] [address] | | | SERVICES, CORE | TJ [...] [facility] | [address] | [place] [address] | | | SERVICES, CORE | PARK [...] | + + + + + | [facility] | [address] | [place] [address] | | | SERVICES, CORE | TJ [...] (H) | 60 - 99 mg/dL | [facility] - | | | GLUCOSE, | [...] NICHOLAS | [address] | [place] | | | [facility]LEEN POINT [facility]ARE | [address] | [address] | | | TESTS | | | [...] [facility] | [address] | [place], [place] | | | BRIANNA CONNOLLY OF CARE | [address] | [address] | | | TESTS | | | [...] with | | some debris. A 14 Icelandic Chau catheter over a wire. | | [...] draped in the usual sterile fashion. A 16-Icelandic flexible | | Olympus cystoscope was advanced [...] | | An attempt to pass a 14-Icelandic catheter over the wire, was also unsuccessful. | | The wire was removed and the cystoscope was replaced. A superstiff wire was | | then advanced into the meatus and bladder. The cystoscope was advanced | | over the wire into the patient's bladder. The above findings were noted. | | The cystoscope was removed. A 14-Icelandic Councill catheter was then placed | | [...] | | | | Drains: | | 14-Icelandic Chau catheter. | | | | Disposition: | | [place] for General Surgery procedure | | | | | | Yahaira Doran M.D. | | JS / HS | | [id number] / [id number] / [id number] / | | | | | + [...] [facility] | [address] | [place], [place] | | | [facility] | [facility] | [address] | | | TESTS | | | [...] [facility] | [address] | [place] [address] | | | SERVICES, CORE | PARK [...] | + + + + + | [facility] | [address] | [place] [address] | | | SERVICES, CORE | TJ [...] [facility] | [address] | [place] [address] | | | SERVICES, CORE | PARK [...] + + | [facility] | [address] | [place] [address] | | | SERVICES, CORE | PARK [...] | + + + + + | [facility] | [address] | [place] [address] | | | YVETTE, DAVEY | TJ [...] YU | [address] | [place], [place] | | | B[facility]NA CON[facility]LLY OF [place] | [facility] | [address] | | | TESTS | | | [...] (H) | 60 - 99 mg/dL | [facility] - | | | GLUCOSE, | [...] NICHOLAS | [address] | [place] | | | [facility] | [address] | [address] | | | TESTS | | | | + + + + + X-RAY PORTABLE CHEST 1 VIEW (01/08/2013 7:12 PM PST) + + + + + + | Component | Value | Ref Range | Performed | Pathologist | | | | | At | Signature | + + + + + + | X-RAY | NM CHEST 1 VIEW, | | | | [...] KAITLIN | | | | | | FUSRenée, MDAuthor: | | | | | | [...] KAITLIN | | | | | | FUSRenée 01/09/2013 9:37 AM | | | | [...] 70 | 49 - 397 U/L | [facility] [...] | + + + + + | [facility] | [address] | [place] [address] | | | SERVICES, CORE | TJ BULLOCK | | | + + + + + MAGNESIUM, PLASMA (01/08/2013 6:36 PM PST) + +---------+ + + + | Component | Value | Ref Range | Performed | Pathologist | | | | | At | Signature | + +---------+ + + + | MAGNESIUM,P | 1.7 (L) | 1.8 - 2.5 mg/dL | [facility] | | | LASMA | | | [...] | + + + + + | [facility] | [address] | [place] [address] | | | SERVICES, CORE | PARK [...] | + + + + + | [facility] | [address] | [place] [address] | | | SERVICES, CORE | TJ [...] YU | [address] | [place], [place] | | | B[facility]NA CONNOLLY OF [place] | [facility] | [address] | | | TESTS | | | | + + + + + MIKI ELI (01/08/2013 5:36 PM PST) + + + [...] | | | | | mmol/L | [facility] | | | | | [...] NICHOLAS | [address] | [place] | | | BRI[facility]NA CONNOLLY OF [place] | [address] | [address] | | | TESTS | | | [...] YU | [address] | [place] | | | BRI[facility]NA CONNOLLY OF [place] | [facility] | [address] | | | TESTS | | | [...] | [facility] | [address] | [place], [place] | | | B[facility]NA [facility] OF [place] | [address] | [address] | | | TESTS | | | | + + + + + POTASSIUM (ART), POC SOR (01/08/2013 4:32 PM PST) [...] NICHOLAS | [address] | [place], [place] | | | B[facility]NA CON[facility]LLY OF [place] | [facility] | [address] | | | TESTS | | | [...] [facility] | [address] | [place] | | | [facility] OF [facility] | [address] | [address] | | | TESTS | | | | + + + + + CHLORIDE (ART) POC SOR (01/08/2013 4:32 PM PST) + [...] [facility] | [address] | [place] | | | B[facility]NA CON[facility] OF [place] | [facility] | [address] | | | TESTS | | | | + + + + + CALCIUM (ART), POC SOR (01/08/2013 4:32 PM PST) [...] NICHOLAS | [address] | [place] | | | [facility] | [address] | [address] | | | TESTS | | | [...] [facility] | [address] | [place], [place] | | | B[facility]NA CONNOLLY OF CARE | [address] | [address] | | | TESTS | | | [...] NICHOLAS | [address] | [place], [place] | | | B[facility]NA CON[facility]LLY [facility] CARE | [address] | [address] | | | TESTS | | | [...] EVEL[facility] | [address] | [place], [place] | | | [facility] PO[facility] | [address] | [address] | | | TESTS | | | [...] [facility] | [address] | [place] [address] | | | SERVICES, | [address] [...] | + + + + + | [facility] | [address] | [place] [address] | | | SERVICES, | [address] [...] (H) | 60 - 99 mg/dL | [facility] - | | | GLUCOSE, | [...] NICHOLAS | [address] | [place], [place] | | | B[facility]NA [facility] [place] | [address] | [address] | | | TESTS | | | [...] Cervantes, | | | | | | M.D./Surgical Pathology | | | | | | Fabio Wu | | | | | | Maggie Levy, | | | | | | Ph.D./PathologistT:01/13/ | | | | | | / Clinical | | | | | | [...] A | | | | | | paper sales representative section | | | | [...] | | | | | | Arelis Levy M.D. | | | | | | Ph.D.PathologistElectron | | | | | | ically Signed 01/14/2013 | | | | | | 7:05PM | | | | + + + + + + + + | Specimen | + + | | + + + + + + + | Performing | Address | City/State/Zipcode | Phone Number | | Organization | | | | + + + + + | [facility] | [address] | [place] [address] | | | PATHOLOGY | [address] | | | + + + + + documented in this encounter Visit Diagnoses + + | Diagnosis | + + | Morbid obesity (HCC) - Primary Morbid obesity | + + | Depression Depressive disorder, not elsewhere classified | + + | BMI 70 and over, adult ([facility]) Body Mass Index 70 and over, adult | + + | DM (diabetes mellitus) ([facility]) Type II or unspecified type diabetes mellitus without | | mention of complication, not stated as uncontrolled | + + documented in this encounter Administered Medications + +--------+ +--------+------+------+ | Medication Order | MAR | Action | Dose | Rate | Site | | | Action | Date | | | | + +--------+ +--------+------+------+ | acetaminophen (aka TYLENOL) | Given | 01/12/20 | 650 mg | | | | oral suspension 650 mg 650 mg, | | 13 9:28 | | | | | oral, EVERY 6 HOURS, First dose | | AM PST | | | | | on Sun01/10/13 at 1045, Until | | | | | | | Discontinued | | | | | | + +--------+ +--------+------+------+ +-------+ +--------+---+---+ | Given | 01/12/20 | 650 mg | | | | | 13 3:36 | | | | | | AM PST | | | | +-------+ +--------+---+---+ | Given | 01/11/20 | 650 mg | | | | | 13 10:16 | | | | | | PM PST | | | | +-------+ +--------+---+---+ +---+---+ | | | +---+---+ + +---------+ +------+--------+---+ | bumetanide (aka BUMEX) | New Bag | 01/11/20 | 1 mg | mL/hr | | | injection 1 mg 1 mg, | | 13 8:39 | | | | | intravenous, ONCE, 1 dose, Fri | | AM PST | | | | | 01/10/13 at 0745 | | | | | | + +---------+ +------+--------+---+ +---+---+ | | | +---+---+ + + + +---+---------+---+ | bupivacaine 0.05 | Rate/Dos | 01/11/20 | | 5 mL/hr | | | %-HYDROmorphone 20 mcg/mL | e Verify | 13 10:32 | | | | | epidural infusion epidural, | | AM PST | | | | | CONTINUOUS, Starting 01/08/13 | | | | | | | at 1300, Until 01/10/13 at 1430 | | | | | | + + + +---+---------+---+ + + +---+ +---+ | Rate/Dose Change | 01/11/20 | | 11 mL/hr | | | | 13 12:09 | | | | | | AM PST | | | | + + +---+ +---+ | New Bag | 01/10/20 | | 14 mL/hr | | | | 13 11:29 | | | | | | PM PST | | | | + + +---+ +---+ +---+---+ | | | +---+---+ + +---------+ +-----+--------+---+ | ceFOXitin (aka MEFOXIN) IV | New Bag | 01/10/20 | 2 g | mL/hr | | | (minibag+) 2 g 2 g, intravenous, | | 13 9:34 | | | | | EVERY 6 HOURS, 3 doses, First | | PM PST | | | | | dose on Maura 01/09/13 at 0900, Last | | | | | | | dose on Sun01/09/13 at 2100 | | | | | | + +---------+ +-----+--------+---+ +---------+ +-----+--------+---+ | New Bag | 01/10/20 | 2 g | mL/hr | | | | 13 4:17 | | | | | | PM PST | | | | +---------+ +-----+--------+---+ | New Bag | 01/10/20 | 2 g | mL/hr | | | | 13 9:43 | | | | | | AM PST | | | | +---------+ +-----+--------+---+ +---+---+ | | | +---+---+ + +-------+ +---------+---+---+ | cloNIDine 0.1 mg/mL suspension | Given | 01/12/20 | 100 mcg | | | | 100 mcg 100 mcg, oral, TWICE | | 13 9:28 | | | | | DAILY, First dose on Sun01/08/13 | | AM PST | | | | | at 2300, Until Discontinued | | | | | | + +-------+ +---------+---+---+ +-------+ +---------+---+---+ | Given | 01/11/20 | 100 mcg | | | | | 13 10:16 | | | | | | PM PST | | | | +-------+ +---------+---+---+ | Given | 01/11/20 | 100 mcg | | | | | 13 8:39 | | | | | | AM PST | | | | +-------+ +---------+---+---+ +---+---+ | | | +---+---+ + +-------+ +-------+---+---+ | enoxaparin (aka LOVENOX) | Given | 01/10/20 | 40 mg | | | | injection 40 mg 40 mg, | | 13 12:36 | | | | | subcutaneous, EVERY NOON, First | | PM PST | | | | | dose on Maura 01/09/13 at 1200, Until | | | | | | | Discontinued | | | | | | + +-------+ +-------+---+---+ +---+---+ | | | +---+---+ + +-------+ +-------+---+---+ | enoxaparin (aka LOVENOX) | Given | 01/11/20 | 40 mg | | | | injection 40 mg 40 mg, | | 13 10:16 | | | | | subcutaneous, EVERY EVENING, | | PM PST | | | | | First dose (after last | | | | | | | modification) on Sun01/10/13 at | | | | | | | 2100, Until Discontinued | | | | | | + +-------+ +-------+---+---+ +---+---+ | | | +---+---+ + +---------+ +-------+-------+---+ | famotidine in NS (aka PEPCID) | New Bag | 01/11/20 | 20 mg | 200 | | | IV 20 mg 20 mg, intravenous, | | 13 10:16 | | mL/hr | | | EVERY 12 HOURS, First dose on Sun | | PM PST | | | | | 01/08/13 at 2100, Until | | | | | | | Discontinued | | | | | | + +---------+ +-------+-------+---+ +---------+ +-------+-------+---+ | New Bag | 01/11/20 | 20 mg | 200 | | | | 13 8:39 | | mL/hr | | | | AM PST | | | | +---------+ +-------+-------+---+ | New Bag | 01/10/20 | 20 mg | 200 | | | | 13 9:34 | | mL/hr | | | | PM PST | | | | +---------+ +-------+-------+---+ +---+---+ | | | +---+---+ + +---------+ +--------+--------+---+ | fentaNYL citrate (PF) (aka | New Bag | 01/09/20 | 50 mcg | mL/hr | | | SUBLIMAZE) injection 50 mcg 50 | | 13 6:55 | | | | | mcg, intravenous, POSTPROCEDURE | | PM PST | | | | | PRN, Starting Sun01/08/13 at 1459, | | | | | | | Until Sun01/08/13 at 1739, | | | | | | | moderate pain | | | | | | + +---------+ +--------+--------+---+ +---------+ +--------+--------+---+ | New Bag | 01/09/20 | 50 mcg | mL/hr | | | | 13 6:50 | | | | | | PM PST | | | | +---------+ +--------+--------+---+ +---+---+ | | | +---+---+ + +---------+ +--------+--------+---+ | fentaNYL citrate (PF) (aka | New Bag | 01/09/20 | 50 mcg | mL/hr | | | SUBLIMAZE) injection 50 mcg 50 | | 13 7:10 | | | | | mcg, intravenous, POSTPROCEDURE | | PM PST | | | | | PRN, Starting Sun01/08/13 at 1720, | | | | | | | Until Sun01/08/13 at 2129, | | | | | | | moderate pain | | | | | | + +---------+ +--------+--------+---+ + +---+ | | | + +---+ | fentaNYL citrate (PF) (aka | | | SUBLIMAZE) injection 1 dose, | | | Starting Sun01/08/13 at 1848, | | | Until Sun01/08/13 at 1850 | | + +---+ | | | + +---+ + +-------+ +-------+---+---+ | FLUoxetine (aka PROZAC) capsule | Given | 01/12/20 | 20 mg | | | | 20 mg 20 mg, oral, DAILY, First | | 13 9:28 | | | | | dose on Sun01/10/13 at 1245, | | AM PST | | | | | Until Discontinued | | | | | | + +-------+ +-------+---+---+ +---+---+ | | | +---+---+ + +-------+ +-------+---+---+ | FLUoxetine (aka PROZAC) liquid | Given | 01/11/20 | 20 mg | | | | 20 mg 20 mg, oral, DAILY, First | | 13 10:34 | | | | | dose on Sun01/09/13 at 1700, Until | | AM PST | | | | | Discontinued | | | | | | + +-------+ +-------+---+---+ +-------+ +-------+---+---+ | Given | 01/10/20 | 20 mg | | | | | 13 4:23 | | | | | | PM PST | | | | +-------+ +-------+---+---+ +---+---+ | | | +---+---+ + +-------+ +---------+---+---+ | insulin lispro (aka HUMALOG) | Given | 01/11/20 | 1 Units | | | | injection subcutaneous, EVERY 6 | | 13 10:16 | | | | | HOURS, First dose on Sun01/08/13 | | PM PST | | | | | at 2200, Until Discontinued | | | | | | + +-------+ +---------+---+---+ +-------+ +---------+---+---+ | Given | 01/11/20 | 2 Units | | | | | 13 4:48 | | | | | | PM PST | | | | +-------+ +---------+---+---+ | Given | 01/10/20 | 2 Units | | | | | 13 12:47 | | | | | | PM PST | | | | +-------+ +---------+---+---+ +---+---+ | | | +---+---+ + +---------+ + +--------+---+ | lactated ringers IV bolus 1,000 | New Bag | 01/10/20 | 1,000 mL | mL/hr | | | mL 1,000 mL, intravenous, ONCE, | | 13 9:42 | | | | | 1 dose, Maura 01/09/13 at 0915 | | AM PST | | | | + +---------+ + +--------+---+ +---+---+ | | | +---+---+ + +---------+ +-------+-------+---+ | lactated ringers IV 150 mL/hr, | New Bag | 01/10/20 | 150 | 150 | | | intravenous, CONTINUOUS, | | 13 9:34 | mL/hr | mL/hr | | | Starting 01/08/13 at 1845, | | PM PST | | | | | Until Sun01/10/13 at 0726 | | | | | | + +---------+ +-------+-------+---+ +---------+ +-------+-------+---+ | New Bag | 01/09/20 | 150 | 150 | | | | 13 10:00 | mL/hr | mL/hr | | | | PM PST | | | | +---------+ +-------+-------+---+ +---+---+ | | | +---+---+ + + + +-------+-------+---+ | lactated ringers IV 100 mL/hr, | Rate/Dos | 01/11/20 | 100 | 100 | | | intravenous, CONTINUOUS, | e Change | 13 7:30 | mL/hr | mL/hr | | | Starting Sun01/10/13 at 0730, | | AM PST | | | | | Until Sun01/10/13 at 1136 | | | | | | + + + +-------+-------+---+ +---+---+ | | | +---+---+ + +---------+ + +--------+---+ | levothyroxine injection 87.6 | New Bag | 01/10/20 | 87.6 mcg | mL/hr | | | mcg 87.6 mcg (87.5 mcg), | | 13 9:42 | | | | | intravenous, DAILY, First dose | | AM PST | | | | | (after last reorder) on Sun | | | | | | | 01/09/13 at 0700, Until | | | | | | | Discontinued | | | | | | + +---------+ + +--------+---+ +---+---+ | | | +---+---+ + +-------+ +---------+---+---+ | levothyroxine tablet 175 mcg | Given | 01/12/20 | 175 mcg | | | | 175 mcg, oral, DAILY, First dose | | 13 6:12 | | | | | on Sun01/10/13 at 0700, Until | | AM PST | | | | | Discontinued | | | | | | + +-------+ +---------+---+---+ +-------+ +---------+---+---+ | Given | 01/11/20 | 175 mcg | | | | | 13 8:39 | | | | | | AM PST | | | | +-------+ +---------+---+---+ +---+---+ | | | +---+---+ + +-------+ +--------+---+---+ | magnesium oxide (aka MAG-OX) | Given | 01/11/20 | 200 mg | | | | tablet 200 mg 200 mg, oral, | | 13 10:16 | | | | | TWICE DAILY, 4 doses, First dose | | PM PST | | | | | on Sun01/10/13 at 2100, Last dose | | | | | | | on 01/12/13 at 0900 | | | | | | + +-------+ +--------+---+---+ +---+---+ | | | +---+---+ + +-------+ +--------+---+---+ | magnesium oxide (aka MAG-OX) | Given | 01/12/20 | 400 mg | | | | tablet 400 mg 400 mg, oral, | | 13 9:28 | | | | | TWICE DAILY, 3 doses, First dose | | AM PST | | | | | (after last modification) on Sat | | | | | | | 01/11/13 at 0900, Last dose on Sun | | | | | | | 01/12/13 at 0900 | | | | | | + +-------+ +--------+---+---+ +---+---+ | | | +---+---+ + +---------+ +-----+--------+---+ | magnesium sulfate IV 2 g 2 g, | New Bag | 01/10/20 | 2 g | mL/hr | | | intravenous, ONCE, 1 dose, Maura | | 13 3:18 | | | | | 01/09/13 at 1200 | | PM PST | | | | + +---------+ +-----+--------+---+ +---+---+ | | | +---+---+ + +---------+ +-----+--------+---+ | magnesium sulfate IV 4 g 4 g, | New Bag | 01/10/20 | 4 g | mL/hr | | | intravenous, ONCE, 1 dose, Maura | | 13 6:56 | | | | | 01/09/13 at 0600 | | AM PST | | | | + +---------+ +-----+--------+---+ +---+---+ | | | +---+---+ + +-------+ +-------+---+---+ | metoprolol tartrate (aka | Given | 01/12/20 | 50 mg | | | | LOPRESSOR) tablet 50 mg 50 mg, | | 13 9:28 | | | | | oral, TWICE DAILY, First dose on | | AM PST | | | | | Maura 01/09/13 at 2100, Until | | | | | | | Discontinued | | | | | | + +-------+ +-------+---+---+ +-------+ +-------+---+---+ | Given | 01/11/20 | 50 mg | | | | | 13 10:16 | | | | | | PM PST | | | | +-------+ +-------+---+---+ | Given | 01/11/20 | 50 mg | | | | | 13 8:40 | | | | | | AM PST | | | | +-------+ +-------+---+---+ +---+---+ | | | +---+---+ + +---------+ +------+--------+---+ | ondansetron (aka ZOFRAN) | New Bag | 01/09/20 | 4 mg | mL/hr | | | injection 4 mg 4 mg, | | 13 10:09 | | | | | intravenous, EVERY 12 HOURS | | PM PST | | | | | NEEDED, Starting 01/08/13 at | | | | | | | 1228, Until 01/10/13 at 1430, | | | | | | | nausea/vomiting | | | | | | + +---------+ +------+--------+---+ +---+---+ | | | +---+---+ + +-------+ +-------+---+---+ | oxyCODONE (immediate release) | Given | 01/11/20 | 10 mg | | | | (aka ROXICODONE) liquid 5-20 mg | | 13 2:16 | | | | | 5-20 mg, oral, EVERY 3 HOURS | | PM PST | | | | | NEEDED, Starting 01/10/13 at | | | | | | | 0850, Until 01/11/13 at 1727, | | | | | | | severe pain | | | | | | + +-------+ +-------+---+---+ +---+---+ | | | +---+---+ documented in this encounter
--- OUTSIDE RECORDS SUMMARY | ~2020-04-13 | XMS | Encounter Summary ---
Demographics + + + | Address | [address] | | | [place] [address] | + + + | Home Phone | | + + + | Preferred Language | Unknown | + + + | Marital Status | | + + + | Cheondoism Affiliation | CHR | + + + [...] + | Tico Burns | ECON | [address] | | | | | [place], [place] | | | | | [address] | | + + + + + Care Team Providers + +------+ + | Care Lay Health Advocate Name | Role | Phone | + [...] | | 2011 | | Center at [facility] [address] | NETWORK PROGRAM[address] | surgical options) | | | | [address] | , [address] | | | | | Mailcode: Center | [place], [place] | | | | | for Health and | [address] | | | | | [facility] | [phone] | | | | | [place], [place] | | | | | | [address] | | | | | | [phone] | | | +--------+ + + + [...]
--- OUTSIDE RECORDS SUMMARY | ~2020-04-13 | XMS | Encounter Summary ---
Demographics + + + | Address | [address] [facility] [address] | | | [place] [address] | + + + | Home Phone [...] + | Tico Burns | ECON | [address] | | | | | [place], [place] | | | | | [address] | | + + + + + Care Team Providers + +------+ + | Care Breeder Hen Service Technician Name | Role | Phone [...] 2011 | on | Center at [address] | ANP | | | | | [address] | | | | | | Mailcode: [place] | | | | | | for Health and | | | | | | Healing, [address] | | | | | | [place], [place] | | | | | | [address] | | | | | | [phone] | | | +--------+ + + + [...]
--- OUTSIDE RECORDS SUMMARY | ~2020-04-13 | XMS | Encounter Summary ---
Demographics + + + | Address | [address] [facility] [address] [facility] | | | [place] [address] | + + + | Home Phone | | + + + | Preferred Language | Unknown | + + + | Marital Status | | + + + | Shinto Affiliation | 1013 | + + + | Race | Unknown | + + + | Ethnic Group | Unknown | + + + Author + + + | Author | [facility] | | | and [place] | + + + | Organization | [facility] | | | and [place] | + + + | Address | Unknown | + + + | Phone | Unavailable | + + + Support + + + + + | Name | Relationship | Address | Phone | + + + + + | Milady Burns | ECON | [address] | | | | | [place] | | | | | [address] | | + + + + + Care Team Providers + +------+ + | Care Gas Load Dispatcher Name | Role | Phone | + [...] [address] | | | | | [place], [place] | [place] [address] | | | | | [address] | [phone] | | | | | [phone] | | | +--------+--------+ + + + [...]
--- OUTSIDE RECORDS SUMMARY | ~2020-04-13 | XMS | Encounter Summary ---
Demographics + + + | Address | [address] [facility] | | | [place] [address] | + + + | Home Phone | | + + + | Preferred Language | Unknown | + + + | Marital Status | | + + + | Catholic Affiliation | CHR | + + [...] + | Tico Burns | ECON | [address] | | | | | [place], [place] | | | | | [address] | | + + + + + Care Team Providers + +------+ + | Care Waist Fitter Name | Role | Phone | + [...] New Patient Visit; | | 2020 | [facility] | [facility] for [facility] | Domingo Parry MD [address] | Weakness | | | uled | and Healing [address] | | | | | [address] Mailcode: | [place], [place] | | | | | [facility] | [address] | | | | | [facility] and [facility]aling, | [phone] | | | | | [facility] | | | | | | Floor [place], [place] | | | | | | [address] | | | | | | [phone] | | | +--------+ + + + [...] 4 Tabs by mouth once daily. Ad engineering aide with evening meal. 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 Currently ws a working [...] provider located at the distant site of [facility]. [facility] [...]
--- OUTSIDE RECORDS SUMMARY | ~2020-04-13 | XMS | Encounter Summary ---
Demographics + + + | Address | [address] [facility] | | | [place] [address] | + + + | Home Phone [...] + | Tico Burns | ECON | [address] | | | | | [place], [place] | | | | | [address] | | + + + + + Care Team Providers + +------+ + | Care Corporate Physical Security Supervisor Name | Role | Phone | [...] | | | Metabolism | obesity | [address] | | | | | (HCC) DM | [address] | Ave | | | | | (diabetes | [address] | [place], [place] | | | | | mellitus) | [place], [place] | [address] | | | | | (HCC) | [address] | Phone: | | | | | Hypertension | Phone: | [phone] | | | | | | [phone] | Fax: | | | | | Hyperlipidem | Fax: | [phone] | | | | | [place] | [phone] | | | | | | Procedures | | | | | | | CONSULT TO | | | | | | | ENDO | | | | | | | [address] | | | | | | | [address] | | | +--------+--------+ + + + + Encounter Details +--------+ + + + + | Date | Type | Department | Care Team | Description | +--------+ + + + + | 11/22/ | Film Splicer | Digestive Health | Violetta Byers, | Morbid obesity (HCC) | | 2012 | | [place] at [facility] [address] | [address] | (Primary Dx); DM | | | | [address], [address] | (diabetes mellitus) | | | | Mailcode: [place] | [place], [place] | ([facility]); Hypertension; | | | | for Health and | [address] | Hyperlipidemia | | | | [place] [address] | [phone] | | | | | [place], [place] | | | | | | [address] | | | | | | [phone] | | | +--------+ + + + [...] | + + | DM (diabetes mellitus) ([facility]) Type II or unspecified type diabetes mellitus without | | mention of complication, not stated as uncontrolled | + + | Hypertension Unspecified essential hypertension | + + | Hyperlipidemia Other and unspecified hyperlipidemia | + + documented in this encounter"
--- OUTSIDE RECORDS SUMMARY | ~2020-04-13 | XMS | Encounter Summary ---
Demographics + + + | Address | [address] [facility] | | | [place] [address] | + + + | Home Phone | | + + + | Preferred Language | Unknown | + + + | Marital Status | | + + + | Uatsdin Affiliation | 1013 | + + + | Race | Unknown | + + + | Ethnic Group | Unknown | + + + Author + + + | Author | [facility] | | | and [place] | + + + | Organization | [facility] | | | and [place] | + + + | Address | Unknown | + + + | Phone | Unavailable | + + + Support + + + + + | Name | Relationship | Address | Phone | + + + + + | Milady Burns | ECON | [address] | | | | | [place] | | | | | [address] | | + + + + + Care Team Providers + +------+ + | Care Diagnostic Radiologic Technologist Name | Role | Phone | + +------+ + | Moe Bella MD | PCP | | + +------+ + Reason for Visit + + + | Reason | Comments | + + + | Pre-op Exam | | + + + Encounter Details [...] | | [address] | [place] [address] | | | | | [place], [place] | [phone] | | | | | [address] | | | | | | [phone] | | | +--------+ + + + [...]
--- OUTSIDE RECORDS SUMMARY | ~2020-04-13 | XMS | Encounter Summary ---
Demographics + + + | Address | [address] [facility] | | | [place] [address] | + + + | Home Phone | | + + + | Preferred Language | Unknown | + + + | Marital Status | | + + + | Adventist Affiliation | 1013 | + + + | Race | Unknown | + + + | Ethnic Group | Unknown | + + + Author + + + | Author | [facility] | | | and [place] | + + + | Organization | [facility] | | | and [place] | + + + | Address | Unknown | + + + | Phone | Unavailable | + + + Support + + + + + | Name | Relationship | Address | Phone | + + + + + | Milady Burns | ECON | [address] | | | | | [place] | | | | | [address] | | + + + + + Care Team Providers + +------+ + | Care Embossing Press Operator Molded Goods Name | Role | Phone | + +------+ + | Moe Bella MD | PCP | | + +------+ + Reason for Visit +--------+ + | Reason | Comments | +--------+ + | Other | Post op call | +--------+ + Encounter Details +--------+ + + + + | Date | Type | Department | Care Team | Description | +--------+ + + + + | 06/07/ | Telephone | [facility] | Chauncey Lee MD | Other (Post op call) | | 2016 | | NEUROSURGERY [address] | [address] | | | | | [address] | [place] [address] | | | | | [place], [place] | [phone] | | | | | [address] | | | | | | [phone] | | | +--------+ + + + [...]
--- OUTSIDE RECORDS SUMMARY | ~2020-04-13 | XMS | Encounter Summary ---
Demographics + + + | Address | [address] [facility] | | | [place] [address] | + + + | Home Phone [...] + | Tico Burns | ECON | [address] | | | | | [place], [place] | | | | | [address] | | + + + + + Care Team Providers + +------+ + | Care Blindmaker Name | Role | Phone | + [...] | 2012 | Referral | Services at [facility] | [address] | | | | Order | [address] [facility] [address] | [address] [place], | | | | | Claudette Wright [facility] | [place] [address] | | | | | [facility], 10th Floor | [phone] | | | | | [place], [place] | | | | | | [address] | | | | | | [phone] | | | +--------+ + + + [...]
--- OUTSIDE RECORDS SUMMARY | ~2020-04-13 | XMS | Encounter Summary ---
Demographics + + + | Address | [address] [facility] | | | [place] [address] | + + + | Home Phone [...] + | Tico Burns | ECON | [address] | | | | | [place], [place] | | | | | [address] | | + + + + + Care Team Providers + +------+ + | Care Wet Machine Cutter Name | Role | Phone | + +------+ + | Moe Bella MD | PCP | | + +------+ + Reason for Visit + + + | Reason | Comments | + + + | Bariatric Nutrition | | + + + Office Visit [...] | obesity | [address] | | | | | (HCC) Type | [place] [address] | | | | | II or | [address] | Center for | | | | | unspecified | [place], | Health and | | | | | type | [place] [address] | Healing, | | | | | diabetes | Phone: | [address] | | | | | mellitus | [phone] | [place], [place] | | | | | without | Fax: | [address] | | | | | mention of | [phone] | Phone: | | | | | complication | | [phone] | | | | | , not stated | | Fax: | | | | | as | | [phone] | | | | | uncontrolled | | | +--------+--------+ + + + + Encounter Details +--------+---------+ + + + | Date | Type | Department | Care Team | Description | +--------+---------+ + + + | 01/30/ | Office | Digestive Health | Kristine Diaz, | DM (diabetes | | 2013 | Visit | Center at [facility] [address] | mellitus) ([facility]) | | | | [address] [facility] | [address] | (Primary Dx); BMI 70 | | | | for Health and | [place], [place] | and over, adult | | | | [facility] [address] | [address] | ([facility]) | | | | [place], [place] | | | | | | [address] | | | | | | [phone] | | | +--------+---------+ + + + [...] + + + + | Weight | 231.4 kg (510 lb 1.6 | 01/30/2013 8:31 AM | | | | oz) | PDT | | + + + + + | Height | 175.3 cm (5' 9") | 01/30/2013 8:31 AM | | | | | PDT | | + + + + + | Body Mass Index | 75.33 | 01/30/2013 8:31 AM | | | | | PDT | | + + + + + documented in this encounter Progress Notes Kristine Diaz, RD - 01/30/2013 8:32 AM PDTFormatting of this note might be different fro m the original. Post-op Bariatric Surgery Follow-Up Patient referred by: Moe Bella MD [facility] [address] [place] [address] Documented time of visit: 8:30-8:51 (21 minutes face to face w/ pt & , Milady) Surgery: gastric sleeve Date of Surgery: 01/08/13 Subjective: Any reported changes: No n/v/d/c Tolerating Bariatric Diet: Yes on full liquids. "Cheating" occasionally w/ 1/2 grilled honorio se sandwich or chicken nuggets--has tolerated everything. Current Physical Activity: short distance walks daily Changes in Diabetes Medications since surgery: long-term insulin decreased from 100 units t o ~50; short-term down from ~20 units to 4-10 units w/ meals. Sees wall steamer in about a month to recheck labs. Testing blood glucose: yes, 140 this morning Objective: Ht Readings from Last 1 Encounters: 01/30/13 1.753 m (5' 9") Wt Readings from Last 2 Encounters: 01/30/13 231.38 kg (510 lb 1.6 oz) 01/08/13 240.5 kg (530 lb 3.3 oz) 20 lb weight loss since surgery Body mass index is 75.33 kg/(m^2). PMHx: Past Medical History Diagnosis Date BP (high blood pressure) Numbness 2006 hands and feet High cholesterol Leg sore Depressed 2010 Diabetes mellitus 2005 Thyroid disease 2010 Cancer 2011 Food logs: Yes Food choices: Slimfast, Special K protein shake, Advocare shake, yogurt, cottage cheese, wh ey protein powder, soup, pudding, occ egg, ckn salad, ckn nuggets Fluid choices: water w/ Crystal Light (48-64oz/d), iced tea (up to 20oz/d). Having a hard t kevan getting enough fluids. Is fluids from meals & trying to eat mindfully. Supplementation: multivitamin (Flintstones) and calcium carbonate (Tums) Assessment: Following Bariatric Diet Protocol: Yes, has started some solids already but is tolerating w ell Meeting protein goals: Not consistently, but some days are >60g Meeting fluid goals: Yes, most days are ~64oz; encouraged consistency in meeting goal. Enco uraged switching to decaf or herbal tea to reduce caffeine intake. Plan: Reviewed nutrition goals after bariatric surgery. Aim for 64 oz fluid and 60-80g protein/day. Advanced to stage 3 according to post-op Bariatric Diet protocol -Begin having soft, ground, moist protein foods; no fruits, vegetables or starches yet -Continue food logs to help meet protein & fluid goals -Add new foods one at a time -Provided written & verbal education/review of stage 3 guidelines, including grocery list of stage 3 foods Continued to reinforce importance of mindful eating. Continue to increase physical activity. RTC in [address] [place], [place] Pager [phone] documented in this en counter Plan of Treatment Not on filedocumented as of this encounter Procedures + +--------+ + + + | Procedure Name | Priori | Date/Time | Associated Diagnosis | Comments | | | ty | | | | + +--------+ + + + | [place] MNT RE-ASSESSMNT | Routin | 01/30/2013 | DM (diabetes | | | X15MIN | e | 8:57 AM | mellitus) ([facility]) BMI | | | | | PDT | 70 and over, adult | | | | | | ([facility]) | | + +--------+ + + + documented in this encounter Visit Diagnoses + + | Diagnosis | + + | DM (diabetes mellitus) ([facility]) - Primary Type II or unspecified type diabetes mellitus | | without mention of complication, not stated as uncontrolled | + + | BMI 70 and over, adult (HCC) Body Mass Index 70 and over, adult | + + documented in this encounter
--- OUTSIDE RECORDS SUMMARY | ~2020-04-13 | XMS | Encounter Summary ---
Demographics + + + | Address | [address] | | | [place] [address] | + + + | Home Phone [...] | Author | [facility] | | | and [place]iana | + + + | Organization | [facility] | | | and [place] | + + + | Address | Unknown | + + + | Phone | Unavailable | + + + Support + + + + + | Name | Relationship | Address | Phone | + + + + + | Milady Burns | ECON | [address] | | | | | [place], [place] | | | | | [address] | | + + + + + Care Team Providers + +------+ + | Care Industrial Safety Engineer Name | Role | Phone | + +------+ + | Myra Karimi MD | PCP | | + +------+ + Encounter Details +--------+ + + + + | Date | Type | Department | Care Team | Description | +--------+ + + + + | 03/06/ | Hospital | [facility] | Brooklynn Lew DO | Diagnosis unknown; | | 2018 - | Encounter | [facility] | [address] | Intracranial | | | | [address] | [place] [address] | hemorrhage (HCC); | | 03/12/ | | [place], [place] | [phone] | Hyperglycemia; | | 2018 | | [address] | | Elevated blood | | | | [phone] | | pressure reading; | | | [...] Service: Hospitalist Author Type: Physician Filed: 03/12/18 1706 Date of Service: 03/12/18741 Status: Signed Illusionist: Job Miranda MD (Physician) Patient: Matthias Burns [...] Procedures Performed: Chief Complaint: Headache Hospital Course: aMtthias Burns is a 53 y.o. male with [...] and was recommended to be discharged to [facility]. He was st arted on aspirin and [...] Value Units Date/Time Blood Culture Set 1 [[id number]] Collected: 03/09/18 0259 Specimen: Blood from Blood Updated: 03/11/18522 Specimen Description BLOOD SPECIAL REQUESTS LAC CULTURE NO GROWTH 2 DAYS Blood Culture Set 2 [[id number]] Collected: 03/09/18 0249 Specimen: Blood from Blood Updated: 03/11/18522 Specimen Description BLOOD SPECIAL REQUESTS R HAND CULTURE NO GROWTH 2 DAYS Recent Radiology Results X-ray Chest 1 View Result Date: 03/09/2018 No evidence of pneumonia. RADIA Electronically signed by Chauncey Coreas MD on March 09 4:05AM Referring Provider Line: [phone] ID: [id number] Carotid Doppler, Bilateral Result [...] Mar 07 2018 7:45AM Referring Provider Line: [phone] ID: [id number] Mri Brain W Wo And [...] Mar 06 2018 10:30PM Referring Provider Line: [phone] ID: [id number] Echo Cardiac Adult With Bubble [...] Discharge Information: Follow up: Myra Karimi MD [address] [place] [address] s/p CVA, diabetes mellitus, abdominal wall cellulitis [...] MG tablet Commonly known as: FLEXERIL ergocalciferol 84367 units capsule Commonly known as: DRISDOL insulin [...] MG capsule metoprolol 25 MG tablet Disposition: [facility] Bed Condition: Stable Code Status: Prior Discharge [...] | | | 12 | | | [address] UNITS capsule | | | | | [...] Note by Yahaira Jeffers RN at 03/12/18 764 Author: Yahaira Jeffers RN Service: (none) Author Type: Registered Nurse Filed: 03/12/18 1200 Date of Service: 03/12/181158 Status: Signed Illusionist: Yahaira Jeffers RN (Registered Nurse) Report called to Natalie padilla RN at at [facility]. Yahaira R P ryor, RN onver alma Transaction, Provider Unknown - 03/12/2018 11:33 AM PDT Case Management by MELISSA Kaba at 03/12/18 1133 Author: MELISSA Kaba Service: (none) Author Type: Marketing Assistant Retail Division Filed: 03/12/18 1134 Date of Service: 03/12/18 1133 Status: Signed Illusionist: MELISSA Kaba (Marketing Assistant Retail Division) 03/12/18 1100 Discharge Planning Evaluation Admitting Diagnosis CVA Anticipated Disposition Facility Type Inpatient Rehabilitation Inpatient Rehabilitation Facilities Other (comment) ([facility] ) Disposition: [facility] Transportation: Private pay transport. All orders, signed AVS, and prescriptions have been faxed All DC paperwork completed Patient and family in agreement with transfer Medicare important message signed and copy in chart Social Vernell KABA [phone] cell onver alma Transaction, Provider Unknown - 03/12/2018 10:50 AM PDT Case Management by MELISSA Kaba at 03/12/18 1050 Author: MELISSA Kaba Service: (none) Author Type: Marketing Assistant Retail Division Filed: 03/12/18 1052 Date of Service: 03/12/18 1050 Status: Signed Illusionist: MELISSA Kaba (Marketing Assistant Retail Division) 03/12/18 1000 Discharge Planning Evaluation Admitting Diagnosis CVA Anticipated Disposition Facility Type Inpatient Rehabilitation Inpatient Rehabilitation Facilities Other (comment) ([facility] ) CURATOR OF EDUCATION p/c left msg with Yashira Gaviria, Admissions at [facility] program ph, fax). Faxed over discharge orders. DCP: [facility] Social Vernell KABA [phone] cell onver alma Transaction, Provider Unknown - 03/11/2018 5:17 PM PDT Nurse Progress Note by Vianney Peres RN at 03/11/181716 Author: Vianney Peres RN Service: (none) Author Type: Registered Nurse Filed: 03/11/18 171 Date of Service: 03/11/181716 Status: Signed Illusionist: Vianney Peres RN (Registered Nurse) Pt reports [...] (none) Author Type: Physical Therapist Filed: 03/11/18 5638 Date of Service: 03/11/18 1530 Status: Signed Illusionist: Dominga Valdez PT (Physical Therapist) PHYSICAL THERAPY TREATMENT NOTE PT Received On: 03/11/18 Reason for Treatment: Stroke (subacute-chronic L cerebellar infarcts) Requires PT Follow Up: Yes Follow up PT Only?: No Assistance Required: 1 person Recommendations: IRF Equipment Recommended: (defer to IRF) PT Ready for Discharge: Yes Recommendation Comments: Pt planned to discharge tomorrow to [facility] for continued maki abilitation prior to return [...] Management by Khushboo Walker RN at 03/11/18 5428 Author: Khushboo Walker RN Service: (none) Author Type: Registered Nurse Filed: 03/11/18 1520 Date of Service: 03/11/18 8138 Status: Addendum Illusionist: Khushboo Walker RN (Registered Nurse) Related Notes: Original Note by Khushboo Walker RN (Registered Nurse) filed at 03/11/18 1 446 Discharge Planning: CM placed call to [facility] Yashira [phone] for f/up re pt admit. Left VM mess with call back number CM contacted by 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[employer] Transport scheduled for noon CM spoke to [facility] facility requests updated notes Fax to Yashira Fax onver alma Transaction, Provider Unknown - 03/11/2018 11:45 AM PDT Nurse Progress Note by Vianney Peres RN at 03/11/18 5347 Author: Vianney Peres RN Service: (none) Author Type: Registered Nurse Filed: 03/11/18 1201 Date of Service: 03/11/18 9905 Status: Signed Illusionist: Vianney Peres RN (Registered Nurse) Redness to panus outlined; pt tolerated well; pt denies any questions or concerns at this t kevan Vianney Peres onver alma Transaction, Provider Unknown - 03/11/2018 11:05 AM PDT Therapy Progress Note by MALIK Armstrong at 03/11/18 1100 Author: MALIK Armstrong Service: (none) Author Type: Occupational Therapist Filed: 03/11/18 3823 Date of Service: 03/11/18 110 Status: Signed Illusionist: MALIK Armstrong (Occupational Therapist) OCCUPATIONAL THERAPY TREATMENT NOTE OT Received On: 03/11/18 Reason for Treatment: Stroke Requires OT Follow Up: Yes Assistance Required: 1 person Occupational Physician Needed: No Family/Caregiver Present: No Recommendation: Rehab consult ([facility]) Equipment Recommended: Tub transfer bench, Real Time Analyst, Sock aid Requires OT Follow Up: Yes Recommendation Comments Pt continues to require SBA-min A for ADLs. Per chart review, pt planning to discharge to [facility] for further rehab. Pt may benefit from [...] FWW to safety when ambulating to the [facility]. Additional Activities Additional Activities Comments: Pt continues to require SBA-min A for ADLs. Per chart delonte avila, pt planning to discharge to [facility] for further rehab. Pt may benefit [...] 1109 Date of Service: 03/11/181058 Status: Signed Illusionist: Vianney Peres RN (Registered Nurse) Physician at [...] 03/11/18921 Date of Service: 03/11/18921 Status: Signed Illusionist: CHRIS Nova (Massage Therapist) 03/11/18920 Massage Therapy Interventions Locations Hands;Shoulder;Neck Massage Therapy Technique Effleurage Response to treatment Decreased muscle tension ulio Michael MD - 03/11/2018 9:12 AM PDT Progress Notes by Julio Viveros MD at 03/11/18911 Author: Juilo Viveros MD Service: Hospitalist Author Type: Physician Filed: 03/13/18 1838 Date of Service: 03/11/18911 Status: Signed Illusionist: Julio Viveros MD (Physician) [facility] Service: Hospitalist Progress Note Hospital Day: LOS: 4 days Briefly, 53-year-old male with extensive past medical history of morbid obesity, type II di abetes mellitus, hyperlipidemia and hypertension who presents to [facility] from [facility] for right-sided headache found to have acute [...] reviewed. Principal Problem: CVA (cerebral vascular accident) ([facility]) Active Problems: BMI 60.0-69.9, adult (HCC) Type 2 diabetes mellitus with hyperglycemia ([facility]) Hypothyroidism Dyslipidemia Benign essential hypertension ASSESSMENT & [...] further clarification of fever and acceptance at [facility]. Insulin-dependent type II diabetes mellitus: -Target [...] 1103 Date of Service: 03/11/18900 Status: Signed Illusionist: Vianney Peres RN (Registered Nurse) Pt requesting [...] 03/11/1847 Date of Service: 03/11/18740 Status: Signed Illusionist: Vianney Peres RN (Registered Nurse) Pt resting [...] any questions or concerns at this ti nm Vianney Peres blemo Julio rosado MD - 03/10/2018 7:39 AM PDT Progress Notes by Julio Viveros MD at 03/10/18 2018 Author: Julio Viveros MD Service: Hospitalist Author Type: Physician Filed: 03/10/18 1345 Date of Service: 03/10/1839 Status: Signed Illusionist: Julio Viveros MD (Physician) [facility] Service: Hospitalist Progress Note Hospital Day: LOS: 3 days Briefly, 53-year-old male with extensive past medical history of morbid obesity, type II di abetes mellitus, hyperlipidemia and hypertension who presents to [facility] from [facility] for right-sided headache found to have acute [...] reviewed. Principal Problem: CVA (cerebral vascular accident) ([facility]) Active Problems: BMI 60.0-69.9, adult (HCC) Type [...] further clarification of fever and acceptance at [facility]. Insulin-dependent type II diabetes mellitus: -Target [...] Service: Hospitalist Author Type: Physician Filed: 03/09/18 5918 Date of Service: 03/09/181008 Status: Addendum Illusionist: Julio Viveros MD (Physician) Related Notes: Original Note by Julio Viveros MD (Physician) filed at 03/09/18 1101 [facility] Service: Hospitalist Progress Note Hospital Day: LOS: 2 days Briefly, 53-year-old male with extensive past medical history of morbid obesity, type II di abetes mellitus, hyperlipidemia and hypertension who presents to [facility] from [facility] for right-sided headache found to have acute [...] accident) (HCC) Active Problems: BMI 60.0-69.9, adult ([facility]) Type 2 diabetes mellitus with hyperglycemia ([facility]) Hypothyroidism Dyslipidemia Benign essential hypertension ASSESSMENT & [...] -Disposition: The patient prefers to be at [facility] secondary to proximity to home. Kindly see showcase maker's note for further details. Fever: -Most likely [...] 03/09/1844 Date of Service: 03/09/18532 Status: Addendum Illusionist: Melvi Sanderson RN (Registered Nurse) Related Notes: [...] Management by Shannon Montoya RN at 03/08/18 071 Author: Shannon Montoya RN Service: (none) Author Type: Relocation Commissioner Filed: 03/08/18 1512 Date of Service: 03/08/181505 Status: Signed Illusionist: Shannon Montoya RN (Relocation Commissioner) Referral faxed to [facility] per patient request. [phone] (f) [phone] . SUSAN spoke with Yashira who will review referral for placement. onver alma Transaction, Provider Unknown - 03/08/2018 1:39 PM PDT Nurse Progress Note by Yahaira Jeffers RN at 03/08/18 1339 Author: Yahaira Jeffers RN Service: (none) Author Type: Registered Nurse Filed: 03/08/18 1340 Date of Service: 03/08/18 1339 Status: Signed Illusionist: Yahaira Jeffers RN (Registered Nurse) Per MD [...] Date of Service: 03/08/18 1027 Status: Signed Illusionist: Wing Joan Humphrey MD (Physician) Patient seen [...] would [facility] to [facility] Yohana Humphrey MD 03/08/2018 10:27 AM Admission [...] 03/06/2018 442 ms Final Calculated P [place] 03/06/2018 48 degrees Final Calculated R [place] 03/06/2018 -62 degrees Final Calculated T [place] 03/06/2018 62 degrees Final Diagnosis 03/06/2018 Final Value:Normal sinus rhythm Left anterior fascicular block Possible Anterolateral infarct , age undetermined Abnormal ECG No previous ECGs available This ECG contains Unconfirmed Interpretation Statements. See ED Record for Physician Inter pretation. Confirmed by MUSE READ ONLY, -COMPUTER ([id number]), scientific editor Chicas, Yahaira ([id number]) on 03/07/2018 5:57:49 [...] YELLOW Final CLARITY 03/07/2018 CLEAR Final Specific [place], UA 03/07/2018 1.036* 1.002 - 1.030 Final [...] Date of Service: 03/08/18 1011 Status: Signed Illusionist: Julio Viveros MD (Physician) [facility] Service: Hospitalist Progress Note Hospital Day: LOS: 1 day Briefly, 53-year-old male with extensive past medical history of morbid obesity, type II di abetes mellitus, hyperlipidemia and hypertension who presents to [facility] from [facility] for right-sided headache found to have acute [...] -Disposition: The patient prefers to be at [facility] secondary to proximity to home. Kindly see showcase maker's note for further details. Insulin-dependent type II [...] Progress Notes by Marilyn Kate at 03/07/18 6984 Author: Marilyn Kate Service: Specialist Author Type: Filed: 03/07/18 8871 Date of Service: 03/07/188 Status: Signed Illusionist: Marilyn Kate (Fire Extinguisher Technician) CP visit per pt request. Matthias is [...] Date of Service: 03/07/18 1612 Status: Signed Illusionist: Julio Viveros MD (Physician) [facility] Service: Hospitalist Progress Note Hospital Day: LOS: 0 days Briefly, 53-year-old male with extensive past medical history of morbid obesity, type II di abetes mellitus, hyperlipidemia and hypertension who presents to [facility] from [facility] for right-sided headache found to have acute [...] Case Management by MELISSA Padilla at 03/07/18 0995 Author: MELISSA Padilla Service: (none) Author Type: Relocation Commissioner Filed: 03/07/18 1147 Date of Service: 03/07/181136 Status: Signed Illusionist: MELISSA Padilla (Relocation Commissioner) 03/07/18 1526 Discharge Planning Evaluation Admitting Diagnosis CVA Readmission No Living Arrangements Spouse/significant other (Milady [phone]) Support Systems Spouse/significant other Type of Residence Private residence House type House-1 story Steps to enter (0 steps) Independent with ADL's Yes Independent with Mobility Yes Mental Status Oriented Prior functional status Patient is indpt in ADLs and IADLs (drives), 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 Denies outpt medical services such [...] Author: MELISSA Padilla Service: (none) Author Type: Relocation Commissioner Filed: 03/07/18915 Date of Service: 03/07/18854 Status: Signed Illusionist: MELISSA Padilla (Relocation Commissioner) CM attempted to meet with patient for full assessment, however, patient sleeping. CM will return at a later time. MELISSA Padilla onver alma Transaction, Provider Unknown - 03/07/2018 3:27 AM PDT Progress Notes by Fabio Madera RPH at 03/07/18326 Author: Fabio Madera RPH Service: Pharmacy Author Type: Pharmacist Filed: 03/07/187 Date of Service: 03/07/18326 Status: Signed Illusionist: Fabio Madera RPH (Pharmacist) Note ccl 120.4ml/min [...] | | | Fingerstick | performed at [facility];[address] | | [address] | | | [address];[place] | | | | | | [address] | | | | + + + [...] | | | Fingerstick | performed at [facility];[address] | | LAB | | | | [address];[place], [place] | | | | | | [address] | | | | + + + [...] | | | Basophils | performed at [facility], [address] | [address] | LAB | | | | [address], | | | | | | [place] [address] | | | | + + + [...] | | | | | | at [facility], [address] | | | | | | [address], | | | | | | [place] [address] | | | | + + + [...] | | | Fingerstick | performed at [facility];[address] | | LAB | | | | [address];[place], [place] | | | | | | [address] | | | | + + + [...] | | | Fingerstick | performed at [facility];[address] | | LAB | | | | [address];[place] | | | | | | [address] | | | | + + + [...] | | | Fingerstick | performed at [facility];[address] | | LAB | | | | [address];[place] | | | | | | [address] | | | | + + + [...] | | | Fingerstick | performed at [facility];[address] | | LAB | | | | [address];[place] | | | | | | [address] | | | | + + + [...] | | | Fingerstick | performed at [facility];[address] | | LAB | | | | [address];[place], [place] | | | | | | [address] | | | | + + + [...] | | | Basophils | performed at [facility], [address] | [address] | LAB | | | | [address], | | | | | | [place] [address] | | | | + + + [...] | | | | | performed at [facility], [address] | | | | | | [address], | | | | | | [place] [address] | | | | + + + [...] | | | | | | at [facility], [address] | | | | | | [address], | | | | | | [place] [address] | | | | + + + [...] | | | Fingerstick | performed at [facility];[address] | | LAB | | | [address];[place], [place] | | | | | | [address] | | | | + + + [...] | | | Fingerstick | performed at [facility];[address] | | LAB | | | [address];[place], [place] | | | | | | [address] | | | | + + + [...] | | | Fingerstick | performed at [facility];[address] | | LAB | | | | [address];[place] | | | | | | [address] | | | | + + + [...] | | | Fingerstick | performed at [facility];[address] | | LAB | | | | [address];[place] | | | | | | [address] | | | | + + + [...] | | | Fingerstick | performed at [facility];[address] | | LAB | | | | [address];[place] | | | | | | [address] | | | | + + + [...] | | | Fingerstick | performed at [facility];[address] | | LAB | | | | [address];[place] | | | | | | [address] | | | | + + + [...] | | | Fingerstick | performed at [facility];[address] | | LAB | | | | [address];[place], [place] | | | | | | [address] | | | | + + + [...] | | | Fingerstick | performed at [facility];[address] | | LAB | | | | [address];[place], [place] | | | | | | [address] | | | | + + + [...] | | | Fingerstick | performed at [facility];[address] | | LAB | | | [address];[place], [place] | | | | | | [address] | | | | + + + [...] | | | Fingerstick | performed at [facility];[address] | | LAB | | | | [address];[place] | | | | | | [address] | | | | + + + [...] | | | Fingerstick | performed at [facility];[address] | | LAB | | | | [address];[place] | | | | | | [address] | | | | + + + [...] | | | Fingerstick | performed at [facility];[address] | | LAB | | | | [address];[place] | | | | | | [address] | | | | + + + [...] | | | Fingerstick | performed at [facility];[address] | | LAB | | | | [address];[place], [place] | | | | | | [address] | | | | + + + [...] | | | | | | at [facility];[address] [place] [address] | | | | | | [facility];[place] [address] | | | | + + + [...] | | | Basophils | performed at [facility], [address] | [address] | LAB | | | | [address], | | | | | | [place] [address] | | | | + + + [...] EXTERNAL | | | | performed at [facility], [address] | | LAB | | | | [address], | | | | | | [place] [address] | | | | + + + [...] EXTERNAL | | | | performed at [facility], [address] | | LAB | | | | [address], | | | | | | [place] [address] | | | | + + + [...] | | | | | | at [facility], [address] | | | | | | [address], | | | | | | [place] [address] | | | | + + + [...] | | | Fingerstick | performed at [facility];[address] | | LAB | | | | [address];[place], [place] | | | | | | [address] | | | | + + + [...] | | | Fingerstick | performed at [facility];[address] | | LAB | | | | [address];[place] | | | | | | [address] | | | | + + + [...] | | | Fingerstick | performed at [facility];[address] | | LAB | | | | [address];[place], [place] | | | | | | [address] | | | | + + + [...] | | | Fingerstick | performed at [facility];[address] | | LAB | | | | [address];[place] | | | | | | [address] | | | | + + + [...] | | | Fingerstick | performed at [facility];[address] | | LAB | | | | [address];[place] | | | | | | [address] | | | | + + + [...] | | | Fingerstick | performed at [facility];[address] | | LAB | | | | [address];[place] | | | | | | [address] | | | | + + + [...] | | | Fingerstick | performed at [facility];[address] | | LAB | | | | [address];[place] | | | | | | [address] | | | | + + + [...] | | | Fingerstick | performed at [facility];[address] | | LAB | | | | [address];[place], [place] | | | | | | [address] | | | | + + + [...] | | | Fingerstick | performed at [facility];[address] | | LAB | | | [address];[place], [place] | | | | | | [address] | | | | + + + [...] | | | Fingerstick | performed at [facility];[address] | | LAB | | | | [address];[place] | | | | | | [address] | | | | + + + [...] | | | Fingerstick | performed at [facility];[address] | | LAB | | | | [address];[place] | | | | | | [address] | | | | + + + [...] | | | Fingerstick | performed at [facility];[address] | | LAB | | | | [address];[place] | | | | | | [address] | | | | + + + [...] | | | Fingerstick | performed at [facility];[address] | | LAB | | | | [address];[place] | | | | | | [address] | | | | + + + [...] | | | Fingerstick | performed at [facility];[address] | | LAB | | | | [address];[place] | | | | | | [address] | | | | + + + [...] EXTERNAL | | | | performed at [facility] | | LAB | | | | [address];[place] | | | | | | [address] | | | | + + + [...] | | | Fingerstick | performed at [facility];[address] | | LAB | | | | [address];[place], [place] | | | | | | [address] | | | | + + + [...] EXTERNAL | | | | performed at [facility] | | LAB | | | | [address];[place], [place] | | | | | | [address] | | | | + + + [...] | | | | | | at [facility];[address];[place] [address] | | | | + + + [...] | | | | | performed at [facility], [address] | | | | | | [address], | | | | | | [place] [address] | | | | + + + [...] - 1.030 | EXTERNAL | | | [facility], | | | LAB | | | [...] | | | Urine | performed at [facility], [facility] | | LAB | | | | [address], | | | | | | [place] [address] | | | | + + + [...] | | | Fingerstick | performed at [facility];888 | | LAB | | | | [address];[place] | | | | | | [address] | | | | + + + [...] 4:05AM Referring Provider Line: | | | [phone] ID: [id number] | | + + + [...] 2018 4:05AM Referring Provider Line: | | [phone] ID: [id number] | |COMPARISON: None. | | [...] 09 2018 4:05AM Referring Provider Francisca e: [phone] ID: [id number] | + + Culture, Blood [...] EXTERNAL | | | | performed at [facility];888 | mmol/L | LAB | | | | [facility];[place] | | | | | | [address] | | | | + + + [...] NEGATIVE Testing | | | performed at [facility];[address] [place] [address];[place] [address] | | + + + + +---------+ [...] | | | Fingerstick | performed at [facility];[address] | | LAB | | | | [address];[place], [place] | | | | | | [address] | | | | + + + [...] | | | Fingerstick | performed at [facility];888 | | LAB | | | | [address];[place], [place] | | | | | | [address] | | | | + + + [...] | | | Fingerstick | performed at [facility];888 | | LAB | | | | [address];[place], [place] | | | | | | [address] | | | | + + + [...] | | | Fingerstick | performed at [facility];888 | | LAB | | | | [address];[place] | | | | | | [address] | | | | + + + [...] | | | Fingerstick | performed at [facility];888 | | LAB | | | | [address];[place], [place] | | | | | | [address] | | | | + + + [...] | | | Fingerstick | performed at [facility];888 | | LAB | | | | [address];[place] | | | | | | [address] | | | | + + + [...] | | | Fingerstick | performed at [facility];[address] | | LAB | | | | [address];[place], [place] | | | | | | [address] | | | | + + + [...] | | | Fingerstick | performed at [facility];[address] | | LAB | | | | [address];[place] | | | | | | [address] | | | | + + + [...] | | | Fingerstick | performed at [facility];8 | | LAB | | | | [address];[place] | | | | | | [address] | | | | + + + [...] | | | Fingerstick | performed at [facility];888 | | LAB | | | | [address];[place], [place] | | | | | | [address] | | | | + + + [...] | | | Fingerstick | performed at [facility];888 | | LAB | | | | [address];[place] | | | | | | [address] | | | | + + + [...] | | | Fingerstick | performed at [facility];888 | | LAB | | | | [address];[place], [place] | | | | | | [address] | | | | + + + [...] | | | Basophils | performed at [facility], [address] | K/uL | LAB | | | | [address], | | | | | | [place] [address] | | | | + + + [...] EXTERNAL | | | | performed at [facility], [address] | | LAB | | | | [address], | | | | | | [place] [address] | | | | + + + [...] | EXTERNAL | | | A1c | [place] Diabetes | | LAB | | | [...] | | | | | performed at [facility], [address] | | | | | | [address], | | | | | | [place] [address] | | | | + + + [...] | | | | | | at [facility], [address] | | | | | | [facility], | | | | | | [place] [address] | | | | + + + [...] | | | Fingerstick | performed at [facility];888 | | LAB | | | | [address];[place] | | | | | | [address] | | | | + + + [...] | | | Fingerstick | performed at [facility];888 | | LAB | | | | [address];[place], [place] | | | | | | [address] | | | | + + + [...] | | | Fingerstick | performed at [facility];888 | | LAB | | | | [address];[place] | | | | | | [address] | | | | + + + [...] | | | Fingerstick | performed at [facility];888 | | LAB | | | | [address];[place] | | | | | | [address] | | | | + + + [...] | | | Fingerstick | performed at [facility];888 | | LAB | | | | [address];[place] | | | | | | [address] | | | | + + + [...] | | | Fingerstick | performed at [facility];888 | | LAB | | | | [address];[place], [place] | | | | | | [address] | | | | + + + [...] | | | Fingerstick | performed at [facility];[address] | | LAB | | | | [address];[place], [place] | | | | | | [address] | | | | + + + [...] | | | Fingerstick | performed at [facility];[address] | | LAB | | | | [address];[place], [place] | | | | | | [address] | | | | + + + [...] | | | Fingerstick | performed at [facility];888 | | LAB | | | | [...] | | | Fingerstick | performed at [facility];888 | | LAB | | | | [address];[place] | | | | | | [address] | | | | + + + [...] | | | Fingerstick | performed at [facility];[address] | | LAB | | | | [address];[place] | | | | | | [address] | | | | + + + [...] | | | Fingerstick | performed at [facility];888 | | LAB | | | | [address];[place] | | | | | | [address] | | | | + + + [...] | | | Fingerstick | performed at [facility];888 | | LAB | | | | [address];[place], [place] | | | | | | [address] | | | | + + + [...] | | | Fingerstick | performed at [facility];888 | | LAB | | | | [address];[place] | | | | | | [address] | | | | + + + [...] | | | 0.43 m/s TV Dec Elbert: 2.48 m/s2 TV Dec Time: 211.42 ms TV E | | | Jeff: 0.52 m/s TV E/A Ratio: 1.20 Drill Runner Helper: GD | | | Authenticated by: Sav [...] cmSV(Teich): 52.40 mlLVCI Dopp: | | 1.31 l/hwho6QHRZ Dopp: 3.76 l/minHR: 72.73 BPMLVOT maxP.53 mmHgLVOT [...] 17.01 cmTV A Jeff: 0.43 m/sTV Dec Elbert: 2.48 | | m/s2TV Dec Time: 211.42 msTV E Jeff: 0.52 m/sTV E/A Ratio: 1.20 Drill Runner Helper: | | GDAuthenticated by: Sav Trotter MD, [...] A Jeff: 0.43 m/s | |TV Dec Elbert: 2.48 m/s2 | |TV Dec Time: 211.42 ms | |TV E Jeff: 0.52 m/s | |TV E/A Ratio: 1.20 | | | |Drill Runner Helper: GD | |Authenticated by: Sav Trotter MD, [...] | | | | | | ACUTE NM Testing | | | | | | performed at [facility];8 | | | | | | [facility];[place], [place] | | | | | | [address] | | | | + + + [...] | | | Fingerstick | performed at [facility];[address] | | LAB | | | | [address];[place], [place] | | | | | | [address] | | | | + + + [...] - 1.030 | EXTERNAL | | | [facility], | | | LAB | | | [...] | | | Cells | performed at [facility];888 | | LAB | | | | [address];[place], [place] | | | | | | [address] | | | | + + + [...] 7:45AM Referring | | | Provider Line: [phone] ID: [id number] | | + + + + + + | Narrative | Performed At | + + + | EXAM: CAROTID DOPPLER ULTRASOUND EXAM DATE: 03/07/2018 06:14 AM. | | | CLINICAL HISTORY: CVA, rule out carotid artery stenosis. | | | COMPARISON: None. TECHNIQUE: Real-time sonographic vascular | | | imaging was performed by the electronic news gathering editor through the carotid arterial | | | system with a linear transducer utilizing color-flow, Doppler flow and | | | spectral analysis. Multiple brand representative static images were saved | | [...] imaging was performed by the | | electronic news gathering editor through the carotid arterial system with a linear transducer utilizing | | color-flow, Doppler flow and spectral analysis. Multiple brand representative static images | | were saved [...] Mar 07 2018 7:45AM Referring Provider Line: [phone] ID: [id number] | |ICA Distal: PSV 36 [...] Mar 07 2018 7:45AM Referring Provider Line: [phone] ID: [id number] | + + POC Glucose (03/07/2018 4:59 AM PDT) + + + + + + | Component | Value | Ref Range | Performed | Pathologist | | | | | At | Signature | + + + + + + | Glucose, | 354 (H)Comment: Testing | 65 - 99 mg/dL | EXTERNAL | | | Fingerstick | performed at [facility];888 | | LAB | | | | [address];[place], [place] | | | | | | [address] | | | | + + + [...] | | | Fingerstick | performed at [facility];[address] | | LAB | | | | [address];[place], [place] | | | | | | [address] | | | | + + + [...] | | | | | | ACUTE NM Testing | | | | | | performed at [facility];888 | | | | | | [facility];[place], [place] | | | | | | [address] | | | | + + + [...] | | | Basophils | performed at [facility], [address] | K/uL | LAB | | | | [address], | | | | | | [place] [address] | | | | + + + [...] | | | | | [place] [address] | | | | + + + [...] EXTERNAL | | | | performed at [facility], [address] | | LAB | | | | [address], | | | | | | [place] [address] | | | | + + + [...] | EXTERNAL | | | A1c | [place] Diabetes | | LAB | | | [...] | | | | | performed at [facility], [address] | | | | | | [facility], | | | | | | [place] [address] | | | | + + + [...] Saravia, | | | | | | [place], [place] [address] | | | | + + + [...] Saravia, | | | | | | [place] [address] | | | | + + + [...] | | | Fingerstick | performed at [facility];8 | | LAB | | | | [address];[place] | | | | | | [address] | | | | + + + [...] 10:30PM Referring Provider | | | Line: [phone] ID: [id number] | | + + + [...] patent. The P1 segment of the left ADVICE NURSE is hypoplastic due to | | | anatomy of the left ADVICE NURSE. This is a normal variant. Posterior | [...] patent. The P1 segment of the left ADVICE NURSE is | | hypoplastic due to anatomy of the left ADVICE NURSE. This is a normal variant. Posterior | [...] Mar 06 2018 10:30PM Referring Provider Line: [phone] | | ID: [id number] | | | [...] |patent. The P1 segment of the left ADVICE NURSE is hypoplastic due to anatomy of the left ADVICE NURSE. This is a normal variant. Posterior circulation [...] 06 2018 10:30PM Referring Provider Kat ne: [phone] ID: [id number] | + + HISTORICAL LAB [...] | | | | | | ACUTE NM Testing | | | | | | performed at [facility];[address] | | | | | | [address];[place], [place] | | | | | | [address] | | | | + + + [...] | | | Fingerstick | performed at [facility];[address] | | LAB | | | | [address];[place] | | | | | | [address] | | | | + + + [...] | | | | | ONLY, -COMPUTER (422), | | | | | | scientific editor Yahaira Chicas | | | | | | (18) on 03/07/2018 5:57:49 | | | | | | AM | | | | + + + + + + + + | Specimen | + + | | + + + + + | Narrative | Performed At | + + + | Historically converted [facility] Epic environment | EXTERNAL LAB | + [...]
--- OUTSIDE RECORDS SUMMARY | ~2020-04-13 | XMS | Encounter Summary ---
Demographics + + + | Address | [address] | | | [place] [address] | + + + | Home Phone [...] + | Tico Burns | ECON | [address] | | | | | [place], [place] | | | | | [address] | | + + + + + Care Team Providers + +------+ + | Care Motorcycle Sales Associate Name | Role | Phone | [...] [facility] | | | | | | [facility] | | | | | | and Healing, | | | | | | Building [address], | | | | | | Floor [place], [place] | | | | | | [address] | | | | | | [phone] | | | +--------+ + + + [...]
--- OUTSIDE RECORDS SUMMARY | ~2020-04-13 | XMS | Encounter Summary ---
Demographics + + + | Address | [address] | | | [place] [address] | + + + | Home Phone [...] + | Tico Burns | ECON | [address] | | | | | [place], [place] | | | | | [address] | | + + + + + Care Team Providers + +------+ + | Care Publications Editor Name | Role | Phone | + [...] | | | | | | | [place] [facility] | | | | | | | Health and | | | | | | | Healing, | | | | | | | Building [address] | | | | | | | [place], [place] | | | | | | | [address] | | | | | | | Phone: | | | | | | | [phone] | | | | | | | Fax: | | | | | | | [phone] | +--------+--------+ + + + + Encounter Details +--------+---------+ + + + | Date | Type | Department | Care Team | Description | +--------+---------+ + + + | 04/10/ | Office | [facility] | Jesus Fenton, | Panniculitis | | 2012 | Visit | Center at [facility] [address] | [address] | (Primary Dx) | | | | [address] | [place] [place] | | | | | Mailcode: [place] | [place], [place] | | | | | [facility] and | [address] | | | | | [facility] 2 | [phone] | | | | | [place], [place] | | | | | | [address] | | | | | | [phone] | | | +--------+---------+ + + + [...] - 04/10/2013 12:26 PM PDTPATIENT SURGERY INFORMATION [facility] General Surgery Office Toll-free: ext [phone] Surgery Date: April 11, 2013 Procedure: Removal [...] the surgery. Please see the list below, [facility] has a list of products that contain [...] from anyone by 7 pm please call [phone]. PARKING Parking for patients is available underneath the [facility] building. Parking is also available in the [facility] Parking structure located across from the emergency depart ment; patient parking available on level 1 and 3. Metered parking is available on the top [facility]. CHECKING IN FOR SURGERY Hospital Admission (in-patient): Admitting Desk 9th floor [address] [facility] TRANSPORTATION Day Surgery: If you have [...] Please notify the general surgery office at [phone] as soon as possible should you nee [...] prior to your surgery. PRODUCTS CONTAINING ASPIRIN [place], Anacin, Anexsia with Codeine, Andynos, Aspirin, Aspirin suppositories, Ascrip tin, Aspergum, Axotal, B-A-C, Baby Aspirin, Bekah, BC Powder, Bexophene, Buffaprin, Bufferin , Buffinol, Cama-Arthritis Strength, Congespirin, [place], Coricidin, Damason, Darvon, Dristan, Terra-Gesic, Digel, Dolprin #3 Tablets, Donatab, Doxaphene, Duragesic, Easprin, Ecotrin, Emag rin Forte, Emiprin, Emprazil, Equagesic, Equazine M, Excedrin, Fiogesic, Fiorgen PH, Fiorice t, Fiorinal, 4-Way Cold Tablet Gemnisyn, Indocin, Liquprin, Lortab ASA, Magnaprin, Marnal, Meprobamate, Midol, Momentum, N orgesic, [place], Orphengesic, Pabalate, P-A-C, Percodan, Presalin, Robaxasil, Roxiprin, Sabino eto, Salocol SK-65 Compound, Sine-Aid, Sine-Off,, [place], Supac, Talwin Compound, Trigesic, Tolectin , Traiminicin, Vanquish, ZORprin, Zomax PRODUCTS CONTAINING IBUPROFEN Advil, Aleve, Haltran, Medipren, Midol, Motrin, Naproxyn, Nuprin, Rufen OTHER PRODUCTS WHICH MAY PROMOTE BLEEDING Vitamin E, Gingko Biloba, Marine Fatty Acids, [place]-3 Fish Oil SupplementsElectronically si gned by [place] Kenyon RN at 04/10/2013 12:27 PM PDT documented in this encounter Progress Notes Jeuss Fenton MD - 04/17/2013 9:46 AM PDTI performed a history and physical examinati on of the patient and discussed his management with the resident. I reviewed the resident s note and agree with the documented findings and plan of care. JESUS FENTON MD [facility] [address] Mailcode: [place] [id number] Maurice Duran M D - 04/10/2013 12:08 [...]
--- OUTSIDE RECORDS SUMMARY | ~2020-04-13 | XMS | Encounter Summary ---
Demographics + + + | Address | [address] [facility] | | | [place] [address] | + + + | Home Phone [...] + | Author | [facility] | + + + | Organization | [facility] | + + + | Address | Unknown | + + + | Phone | Unavailable | + + + Support + + + + + | Name | Relationship | Address | Phone | + + + + + | Tico Burns | ECON | [address] | | | | | [place], [place] | | | | | [address] | | + + + + + Care Team Providers + +------+ + | Care Equine Internship Name | Role | Phone | + +------+ + | Moe Bella MD | PCP | | + +------+ + Encounter Details +--------+ + + + + | Date | Type | Department | Care Team | Description | +--------+ + + + + | 07/31/ | Telephone | [facility] | Jesus Perez, | | | 2012 | | [place] [address] | [address] | | | | | [place] Mailcode: [facility] | [facility] | | | | | [facility] | [place], [place] | | | | | and Healing, | [address] | | | | | [address] | [phone] | | | | | Floor [place], [place] | | | | | | [address] | | | | | | [phone] | | | +--------+ + + + [...]
--- OUTSIDE RECORDS SUMMARY | ~2020-04-13 | XMS | Encounter Summary ---
Demographics + + + | Address | [address] | | | [place] [address] | + + + | Home Phone | | + + + | Preferred Language | Unknown | + + + | Marital Status | | + + + | Protestant Affiliation | 1013 | + + + | Race | Unknown | + + + | Ethnic Group | Unknown | + + + Author + + + | Author | [facility] | | | and [place] | + + + | Organization | [facility] | | | and [place] | + + + | Address | Unknown | + + + | Phone | Unavailable | + + + Support + + + + + | Name | Relationship | Address | Phone | + + + + + | Milady Burns | ECON | [address] | | | | | [place] | | | | | [address] | | + + + + + Care Team Providers + +------+ + | Care Gas Plumber Name | Role | Phone | + [...] | | displacement | [address] | [place], [place] | | | | | , lumbar | [place], | [address] Phone: | | | | | [facility] | [place] [address] | [phone] | | | | | | Phone: | Fax: | | | | | | [phone] | [phone] | | | | | | Fax: | | | | | | | [phone] | | + +--------+ + + + [...] | without myelopathy; | | | | [address] | [address] | Morbid obesity with | | | | [phone] | | BMI of 60.0-69.9, | | | | | | adult ([facility]); | | | | | | Bilateral [...] from the original. 1. Please have your avionics integration engineer work with Dr. Daigle at [facility] inpatient re hab to help facilitate admission [...] disk, and irritate nerves. Date Last Reviewed: 04/05/201819995475-2588 [employer] [place] [address]. All righ ts reserved. This information is not intended as a substitute for professional medical care. Always follow your healthcare professional's instructions. documented in this encounter Progress Notes Vannessa Taylor PA-C - 02/16/2020 1:40 PM PDTFormatting of this note might be diffe rent from the original. Jorge Taylor PA-C [address] [place] [address], [address] [place] [address] PHONE: FAX: PHYSIATRY HISTORY AND PHYSICAL EXAMINATION [...] having a few physical therapy sessions at [facility]. The symptoms are daily and predominantly [...] NSAIDS. Patient has been approved for inpatient residential and wa s referred to neurosurgery at [facility] she anticipates in May. . PAST MEDICAL [...] Fusion; Surgeon: Chauncey Lee MD ; Location: [facility] MAIN OR DENTAL SURGERY Root and crown placement GASTRIC BYPASS SURGERY 12/26/2006 Attempted that resulted in small bowel resection - Dr Armando Braden; [place] GASTRIC RESECTION SURGERY 2014 GROIN SURGERY 07/04/2017 Tumor Removal - ; LIPOMA REMOVAL 04/10/2013 Dr Vang NECK SURGERY SLEEVE GASTROPLASTY 01/08/2013 Nayan, [facility] Dr Perez THYROIDECTOMY 07/2011 CURRENT MEDICATIONS: Current [...] on 02/16/2020) 90 tablet 3 ergocalciferol (ERGOCALCIFEROL) 50526 UNITS capsule Take 50,000 Units by mouth Once a [facility]. (Patient not taking: Reported on 02/16/2020) FLUoxetine [...] has no apparent deficits with short or watermelon inspector memory. Cranial nerves 2-12 appear grossly intact. EXTREMITIES: No cyanosis, clubbing, or edema. Distal pulses are palpable. PHYSICAL EXAM: MENTAL STATUS: He is awake, alert, and oriented. He follows simple and complex commands. His speech is fluent, he comprehends speech well, and he repeats well. He has no apparent deficits with short or watermelon inspector memory. CRANIAL NERVES: II: Acuity is intact. [...] Intrinsics 5 5 Ulnar Intrinsics 5 5 Caregivers Non Medical Strength 5 5 Hip Flexion 3 5 [...] inpatient rehab. I consulted Dr. Daigle at [facility] for inpatient rehab consultation. He asked that if the ethan maurice meets criteria having failed home health that a referral be placed to him. Patient ag barbi to help facilitate this by discussing this with his insurance verifier. I did feel that Gerard Burns would [...]
--- OUTSIDE RECORDS SUMMARY | ~2020-04-13 | XMS | Encounter Summary ---
Demographics + + + | Address | [address] | | | [place] [address] | + + + | Home Phone | | + + + | Preferred Language | Unknown | + + + | Marital Status | | + + + | Scientologist Affiliation | 1013 | + + + | Race | Unknown | + + + | Ethnic Group | Unknown | + + + Author + + + | Author | [facility] | | | and [place] | + + + | Organization | [facility] | | | and [place] | + + + | Address | Unknown | + + + | Phone | Unavailable | + + + Support + + + + + | Name | Relationship | Address | Phone | + + + + + | Milady Burns | ECON | [address] | | | | | [place] | | | | | [address] | | + + + + + Care Team Providers + +------+ + | Care Gas Furnace Installer Name | Role | Phone | + +------+ + | Moe Bella MD | PCP | | + +------+ + Encounter Details +--------+ + + + + | Date | Type | Department | Care Team | Description | +--------+ + + + + | 03/16/ | Hospital | [facility] | Chauncey Lee MD | S/P cervical spinal | | 2017 | Encounter | MED CTR XRAY [address] | fusion | | | | [address] | [place] [address] | | | | | [place] [address] | [phone] | | | | | [phone] | | | +--------+ + + + [...] | | | 12 | | | 10757 UNITS capsule | | | | | [...] XR CERVICAL SPINE 2 | Routin | 03/16/2017 | S/P cervical | Results for this | | OR 3 VIEWS | e | 8:13 AM | spinal fusion | procedure are [...] Postop. COMPARISON: Multiple priors. FINDINGS: Visualized | [facility] | | skull base and facial [...] + | [facility] | [address] | [place], [place] | [phone] | | [facility] | | [address] | | | - IMAGING | | | | + + + + + documented in this encounter Visit Diagnoses + + | Diagnosis | + + | S/P cervical spinal fusion Arthrodesis status | + + documented in this encounter"
--- OUTSIDE RECORDS SUMMARY | ~2020-04-13 | XMS | Encounter Summary ---
Demographics + + + | Address | [address] [facility] [facility] | | | [place] [address] | + + + | Home Phone [...] + | Tico Burns | ECON | [address] | | | | | [place], [place] | | | | | [address] | | + + + + + Care Team Providers + +------+ + | Care Customer Service Sales Associate Name | Role | Phone [...] 2011 | on | Center at [address] | AN[address] | | | | | [address] | | | | | | Mailcode: [place] | | | | | | for Health and | | | | | | Healing, [address] | | | | | | [place], [place] | | | | | | [address] | | | | | | [phone] | | | +--------+ + + + [...]
--- OUTSIDE RECORDS SUMMARY | ~2020-04-13 | XMS | Encounter Summary ---
Demographics + + + | Address | [address] | | | [place] [address] | + + + | Home Phone | | + + + | Preferred Language | Unknown | + + + | Marital Status | | + + + | Spiritism Affiliation | CHR | + + + [...] + | Tico Burns | ECON | [address] | | | | | [place], [place] | | | | | [address] | | + + + + + Care Team Providers + +------+ + | Care Fitness Coach Name | Role | Phone | + [...] | Required | Metabolism | obesity | [address] | | | | | (HCC) | [address], | Ave | | | | | Depression | [address] | [place], [place] | | | | | BMI 70 and | [place] | [address] | | | | | over, adult | [address] | Phone: | | | | | ([facility]) | Phone: | [phone] | | | | | Procedures | [phone] | Fax: | | | | | CONSULT TO | Fax: | [phone] | | | | | ENDO | [phone] | | | | | | [address] | | | | | | | [address] | | | | | | | | | | | | | | [address] | | | +--------+ + + + + + Consultation (Routine) +--------+--------+ + + + + | Status | Reason | Specialty | Diagnoses / | Referred By | Referred To | | | | | Procedures | Contact | Contact | +--------+--------+ + + + + | Closed | | Pain | Diagnoses | 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, | 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 Psych | | | | Management | Morbid | Violetta M HAY STACKER | [address] | | | | | obesity | [address] | | | | | ([facility]) | [address], | Mailcode: | | | | | Depression | [address] | [facility] | | | | | Procedures | [place], [place] | for Health | | | | | CONSULT TO | [address] | and Healing, | | | | | PAIN CENTER | Phone: | Building 1, | | | | | | [phone] | 15th Floor | | | | | | Fax: | [place], [place] | | | | | | [phone] | [address] | | | | | | | Phone: | | | | | | | [phone] | | | | | | | Fax: | | | | | | | [phone] | +--------+--------+ + + + + Reason [...] | | | | (HCC) Type | [address] | [address] | | | | | II or | [address] | Mailcode: | | | | | unspecified | [place], | [facility] | | | | | type | [place] [address] | Health and | | | | | diabetes | Phone: | Healing, | | | | | mellitus | [phone] | Building 2 | | | | | without | Fax: | [place], [place] | | | | | mention of | [phone] | [address] | | | | | complication | | Phone: | | | | | , not stated | | [phone] | | | | | as | | Fax: | | | | | uncontrolled | | [phone] | +--------+--------+ + + + + Encounter Details +--------+---------+ + + + | Date | Type | Department | Care Team | Description | +--------+---------+ + + + | 06/10/ | Office | Digestive Health | Violetta Byers, | Morbid obesity (HCC) | | 2011 | Visit | Center at [address] | [address] | (Primary Dx); | | | | [address] | , [address] | Depression; BMI 70 | | | | Mailcode: Center | [place], [place] | and over, adult | | | | for Health and | [address] | ([facility]); | | | | Healing, Building 2 | [phone] | Nephrolithiasis; DM | | | | [place], [place] | | (diabetes mellitus) | | | | [address] | | ([facility]); Hypertension; | | | | [phone] | | Hyperlipidemia; | | | | [...] Psychological Evaluation: If your referral is at [facility], pain management will call you in the next week to schedule. 4. Sleep study: Please undergo a sleep study and have notes/tests faxed to us. 5. Cardiology Consult: A cardiology provider needs to evaluate your cardiac function and le t us know if you can proceed with with bariatric surgery. 6. Please call [phone] ([phone]) and have them send you a urine [...] then schedule with the 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 Eyes/Ears/Nose/Throat: Denies visual [...] history of lower extremity edema. Denies CHF, OK, ischemic hea rt disease, DVT/PE, or pulmonary [...] 1. Previous gastric bypass attempt done in [place], the op-report is scanned into [employer] for review. Part of jejunum was removed [...] future. Pt already has plastic surgeon in [place] he is working with. 6. Nephrolithiasis, recurrent [...] Psychological Evaluation: If your referral is at [facility], pain management will call you in the next week to schedule. 4. Sleep study: Please undergo a sleep study and have notes/tests faxed to us. 5. Cardiology Consult: A cardiology provider needs to evaluate your cardiac function and le t us know if you can proceed with with bariatric surgery. 6. Please call [facility] ([phone]) and have them send you a urine [...] authorization then schedule with the surgeon. Violetta [facility] [address] [place] [address] Potential Contraindications to Bariatric Surgery Age over [...] other providers does not guarantee that the [facility] Bariatric Surger y program will deem you [...] + | BMI 70 and over, adult ([facility]) Body Mass Index 70 and over, adult | + + | Nephrolithiasis Calculus of kidney | + + | DM (diabetes mellitus) ([facility]) Type II or unspecified type diabetes mellitus without | | mention of complication, not stated as uncontrolled | + + | Hypertension Unspecified essential hypertension | + + | Hyperlipidemia Other and unspecified hyperlipidemia | + + | Panniculitis Panniculitis, unspecified site | + + | Edema | + + documented in this encounter
--- OUTSIDE RECORDS SUMMARY | ~2020-04-13 | XMS | Encounter Summary ---
Demographics + + + | Address | [address] | | | [place] [address] | + + + | Home Phone | | + + + | Preferred Language | Unknown | + + + | Marital Status | | + + + | Hindu Affiliation | CHR | + + + | Race | White | + + + | Ethnic Group | Not or | + + + Author + + + | Author | [facility] | + + + | Organization | [facility] | + + + | Address | Unknown | + + + | Phone | Unavailable | + + + Support + + + + + | Name | Relationship | Address | Phone | + + + + + | Tico Burns | ECON | [address] | | | | | [place], [place] | | | | | [address] | | + + + + + Care Team Providers + +------+ + | Care Security Chief Museum Name | Role | Phone | + [...] Center at [facility] [address] | VETERINARY NURSE [address] | | | | | [address] | [facility] [address] | | | | | Mailcode: Center | [place], [place] | | | | | for Health and | [address] | | | | | [facility], [facility] 2 | [phone] | | | | | [place], [place] | | | | | | [address] | | | | | | [phone] | | | +--------+ + + + [...]
--- OUTSIDE RECORDS SUMMARY | ~2020-04-13 | XMS | Encounter Summary ---
Demographics + + + | Address | [address] | | | [place] [address] | + + + | Home Phone [...] + | Tico Burns | ECON | [address] | | | | | [place], [place] | | | | | [address] | | + + + + + Care Team Providers + +------+ + | Care Senior Materials Planner Name | Role | Phone | + [...] 2013 | Event | [address] | [address] | | | | | [facility] | [address] | | | | | Hospital Admitting | [place], [place] | | | | | Desk Located on the | [address] | | | | | 9th floor | [phone] | | | | | [place], [place] | | | | | | [address] | Talon Rich MD | | | | | | [address] | | | | | | [facility] | | | | | | [place] [address] | | | | | | [phone] | | | | | | | [...]
--- OUTSIDE RECORDS SUMMARY | ~2020-04-13 | XMS | Encounter Summary ---
Demographics + + + | Address | [address] | | | [place] [address] | + + + | Home Phone [...] + | Tico Burns | ECON | [address] | | | | | [place], [place] | | | | | [address] | | + + + + + Care Team Providers + +------+ + | Care Marine Service Station Attendant Name | Role | Phone | + [...] | | 2017 | | Center at [facility] [address] | | Review | | | | [address] | | | | | | Mailcode: Center | | | | | | for Health and | | | | | | [facility], Building 2 | | | | | | [place], [place] | | | | | | [address] | | | | | | [phone] | | | +--------+ + + + [...]
--- OUTSIDE RECORDS SUMMARY | ~2020-04-13 | XMS | Clinical Summary ---
Demographics + + + | Address | [address] [facility] [facility] | | | [place] [address] | + + + | Home Phone [...] | Tico Burns | ECON | [address] | | | | | [place], [place] | | | | | [address] | | + + + + + Care Team Providers + +------+ + | Care Converter Skimmer Name | Role | Phone | + +------+ + | Moe Bella MD | PCP | | + +------+ + Source Comments SONJA is fully live on both EpicCare Ambulatory and EpicCare InPatient.[facility] Allergies + + + + [...] AFFINI | | [address] | 4 | [address] | | | | [place] | | sent | | [place], | | | | | | | | [place] [address] | | +-------+--------+ +--------+ + +------+ + +--------+ +--------+ + + | Guarantor Name | Accoun | Relation to | Date | Phone | Billing Address | | | t Type | Patient | of | | | | | | | | | | + +--------+ +--------+ + + | Gerard Burns | Person | Self | [birth year] | [address] | | | al/Fam | | 1965 | [phone] | [place] [address] | | | yas | | | [...]
--- OUTSIDE RECORDS SUMMARY | ~2020-04-13 | XMS | Encounter Summary ---
Demographics + + + | Address | [address] | | | [place] [address] | + + + | Home Phone [...] + | Tico Burns | ECON | [address] | | | | | [place], [place] | | | | | [address] | | + + + + + Care Team Providers + +------+ + | Care Resident Hall Director Name | Role | Phone | [...] Medical Records | | 2016 | | [place] at [facility] [address] | [address] [facility] | Review | | | | [address] | [facility] | | | | | Mailcode: [place] | [place], [place] | | | | | [facility] and | [address] | | | | | [facility] 2 | [phone] | | | | | [place], [place] | | | | | | [address] | | | | | | [phone] | | | +--------+ + + + [...]
--- OUTSIDE RECORDS SUMMARY | ~2020-04-13 | XMS | Encounter Summary ---
Demographics + + + | Address | [address] [facility] | | | [place] [address] | + + + | Home Phone | | + + + | Preferred Language | Unknown | + + + | Marital Status | | + + + | Anglican Affiliation | 1013 | + + + | Race | Unknown | + + + | Ethnic Group | Unknown | + + + Author + + + | Author | [facility] | | | and [place] | + + + | Organization | [facility] | | | and [place] | + + + | Address | Unknown | + + + | Phone | Unavailable | + + + Support + + + + + | Name | Relationship | Address | Phone | + + + + + | Milady Burns | ECON | [address] | | | | | [place] | | | | | [address] | | + + + + + Care Team Providers + +------+ + | Care Pneumatic Drum Sander Name | Role | Phone | + [...] [address] | [address] [place], [place] | | | | | [place], [place] | [address] | | | | | [address] | | | | | | [phone] | | | +--------+ + + + [...]
--- OUTSIDE RECORDS SUMMARY | ~2020-04-13 | XMS | Encounter Summary ---
Demographics + + + | Address | [address] | | | [place] [address] | + + + | Home Phone | | + + + | Preferred Language | Unknown | + + + | Marital Status | | + + + | Restoration Affiliation | 1013 | + + + | Race | Unknown | + + + | Ethnic Group | Unknown | + + + Author + + + | Author | [facility] | | | and [place] | + + + | Organization | [facility] | | | and [place] | + + + | Address | Unknown | + + + | Phone | Unavailable | + + + Support + + + + + | Name | Relationship | Address | Phone | + + + + + | Milady Burns | ECON | [address] | | | | | [place] | | | | | [address] | | + + + + + Care Team Providers + +------+ + | Care Informatica Name | Role | Phone | + [...] | | | | CLINIC [address] | [place] [address] | Morbid obesity, | | | | [place] | [phone] | unspecified obesity | | | | [address] | | type (HCC); | | | [...] | | | | CHARI AUGUST MD ([id number]) | | | | | | on [...] [address] | [place] | [phone] | | [facility] | | [address] | | | - LABORATORY | | [...] 13 | 7 - 18 mg/dL | [facility] | | | | | | [facility] | | | | | | MEDICAL | | | | | | CENTER - | | | | | | LABORATORY | | + + + + + + | Creatinine | 0.92 | 0.60 - 1.30 | [facility] | | | | | mg/dL | [facility] | | | | | | MEDICAL | | | | | | CENTER - | | | | | | LABORATORY | | + + + + + + | eGFR if not | >60Comment: GLOMERULAR | >=60 | [facility] | | | | FILTRATION | mL/min/1.73m2 | [address] | | | OMANI | RATE,ESTIMATED | | MEDICAL | | | | mL/min/1.13v2Xrxg than | | CENTER - | | [...] + | [facility] | [address] | [place] | [phone] | | [facility] | | [address] | | | - LABORATORY | | [...] [address] | [place] | [phone] | | [facility] | | [address] | | | - LABORATORY | | [...]
--- OUTSIDE RECORDS SUMMARY | ~2020-04-13 | XMS | Encounter Summary ---
Demographics + + + | Address | [address] [facility] | | | [place] [address] | + + + | Home Phone [...] + + | Author | [facility] | + + + | Organization | [facility] | + + + | Address | Unknown | + + + | Phone | Unavailable | + + + Support + + + + + | Name | Relationship | Address | Phone | + + + + + | Tico Burns | ECON | [address] | | | | | [place], [place] | | | | | [address] | | + + + + + Care Team Providers + +------+ + | Care Conference Coordinator Name | Role | Phone | [...] over, | | 2012 | Visit | [place] at [facility] [address] | [address] [facility] | adult ([facility]) (Primary | | | | [address] | [address] | Dx); Morbid obesity | | | | Mailcode: [place] | [place], [place] | ([facility]); S/P gastric | | | | for Health and | [address] | bypass | | | | [facility], [facility] 2 | [phone] | | | | | [place], [place] | | | | | | [address] | | | | | | [phone] | | | +--------+---------+ + + + [...] and plan of care. HARPREET FENTON MD [facility] SURG[facility] [address] Mailcode: [place] [phone] Oc Giraldo MD - 01/30/2013 9:24 AM PDT BARIATRIC SURGERY CLINIC PROGRESS NOTE: 01/30/2013 Attending Physician: Logan Fenton MD Author: Oc Bee MD; Bariatric Fellow, Pager [phone] CC: 2wk f/u bariatric surg Surgical Issue(s): [...] with the ass essment, exam and plan. cO Bee MD MIS/Bariatric Fellow, Pager [phone] [facility] Current Outpatient Prescriptions on File Prior to [...] BMI 70 and over, adult ([facility]) - Primary Body Mass Index 70 and over, adult | + + | Morbid obesity ([facility]) Morbid obesity | + + | S/P gastric bypass Bariatric surgery status | + + documented in this encounter
--- OUTSIDE RECORDS SUMMARY | ~2020-04-13 | XMS | Encounter Summary ---
Demographics + + + | Address | [address] | | | [place] [address] | + + + | Home Phone | | + + + | Preferred Language | Unknown | + + + | Marital Status | | + + + | Orthodox Affiliation | CHR | + + + | Race | White | + + + | Ethnic Group | Not or | + + + Author + + + | Author | [facility] | + + + | Organization | [facility] | + + + | Address | Unknown | + + + | Phone | Unavailable | + + + Support + + + + + | Name | Relationship | Address | Phone | + + + + + | Tico Burns | ECON | [address] | | | | | [place], [place] | | | | | [address] | | + + + + + Care Team Providers + +------+ + | Care Hand Alterations Seamstress Name | Role | Phone | + [...] | | | | (HCC) Type | [place] [address] | | | | | II or | [address] | Mailcode: | | | | | unspecified | [place], | [facility] | | | | | type | [place] [address] | Health and | | | | | diabetes | Phone: | Healing, | | | | | mellitus | [phone] | [address] | | | | | without | Fax: | [place], [place] | | | | | mention of | [phone] | [address] | | | | | complication | | Phone: | | | | | , not stated | | [phone] | | | | | as | | Fax: | | | | | uncontrolled | | [phone] | +--------+--------+ + + + + Encounter Details +--------+---------+ + + + | Date | Type | Department | Care Team | Description | +--------+---------+ + + + | 12/26/ | Office | Digestive Health | Jesus Perez, | Morbid obesity (HCC) | | 2012 | Visit | [place] at [facility] [address] | [address] | (Primary Dx); BMI | | | | [address] | [address] | 70 and over, adult | | | | Mailcode: Center | [place], [place] | ([facility]); DM (diabetes | | | | for Health and | [address] | mellitus) ([facility]); | | | | [place] [address] | [phone] | Hypertension; | | | | [place], [place] | | Hyperlipidemia | | | | [address] | | | | | | [phone] | | | +--------+---------+ + + + [...] MD - 12/26/2012 11:18 AM PSTPATIENT SURGERY [facility] General Surgery Office Toll-free: ext [phone] Surgery [...] the surgery. Please see the list below, [facility] has a list of products that contain [...] sleeve only, if taking an ac id toolsmith, you may continue on same medication. PRE-OP [...] please call the General Surgery Office at [phone] for [facility] k-in-time. PARKING Parking for patients and visitors is available in the [facility] Parking structure located across from the emergency department. Patient parking is available on level 1 and 3. [facility] red parking is available on the top level. CHECKING IN FOR SURGERY For Hospital Admission (in-patient) you will check in on the day of surgery at the Admittin g Department located on the 9th floor of [facility] TRANSPORTATION You will require transportation home on the day of discharge. Pain medications and physica l activity restrictions may limit your ability to drive safely. CANCELLING YOUR PROCEDURE Please notify the general surgery office at [phone] as soon as possible should you nee [...] prior to your surgery. PRODUCTS CONTAINING ASPIRIN Leydi-[place]ount[place], Anacin, Anexsia with Codeine, Andynos, Aspirin, Aspirin suppositories, Ascrip tin, Aspergum, Axotal, B-A-C, Baby Aspirin, Bekah, BC Powder, Bexophene, Buffaprin, Bufferin , Buffinol, Cama-Arthritis Strength, Congespirin, Keno, Coricidin, Damason, Darvon, Drchristian, Terra-Gesic, Digel, Dolprin #3 Tablets, Donatab, Doxaphene, Duragesic, Easprin, Ecotrin, Emag rin Forte, Emiprin, Emprazil, Equagesic, Equazine M, Excedrin, Fiogesic, Fiorgen PH, Fiorice t, Fiorinal, 4-Way Cold Tablet Gemnisyn, Indocin, Liquprin, Lortab ASA, Magnaprin, Marnal, Meprobamate, Midol, Momentum, N orgesic, [place], Orphengesic, Pabalate, P-A-C, Percodan, Presalin, Robaxasil, Roxiprin, Sabino eto, Salocol SK-65 Compound, Sine-Aid, Sine-Off,, Dupage, Supac, Talwin Compound, Trigesic, Tolectin , Traiminicin, Vanquish, ZORprin, Zomax PRODUCTS CONTAINING IBUPROFEN Advil, Aleve, Haltran, Medipren, Midol, Motrin, Naproxyn, Nuprin, Rufen OTHER PRODUCTS WHICH MAY PROMOTE BLEEDING Vitamin E, Gingko Biloba, Marine Fatty Acids, Welches-3 Fish Oil Supplements documented in this encounter [...] for the patient. documented in this encounter Plan of Treatment Not on filedocumented as of this encounter Visit Diagnoses + + | Diagnosis | + + | Morbid obesity (HCC) - Primary Morbid obesity | + + | BMI 70 and over, adult ([facility]) Body Mass Index 70 and over, adult | + + | DM (diabetes mellitus) ([facility]) Type II or unspecified type diabetes mellitus without | | mention of complication, not stated as uncontrolled | + + | Hypertension Unspecified essential hypertension | + + | Hyperlipidemia Other and unspecified hyperlipidemia | + + documented in this encounter
--- OUTSIDE RECORDS SUMMARY | ~2020-04-13 | XMS | Encounter Summary ---
Demographics + + + | Address | [address] [facility] | | | [place] [address] | + + + | Home Phone | | + + + | Preferred Language | Unknown | + + + | Marital Status | | + + + | Pentecostal Affiliation | 1013 | + + + | Race | Unknown | + + + | Ethnic Group | Unknown | + + + Author + + + | Author | [facility] | | | and [place] | + + + | Organization | [facility] | | | and [place] | + + + | Address | Unknown | + + + | Phone | Unavailable | + + + Support + + + + + | Name | Relationship | Address | Phone | + + + + + | Milady Burns | ECON | [address] | | | | | [place], [place] | | | | | [address] | | + + + + + Care Team Providers + +------+ + | Care Core Feeder Name | Role | Phone | + [...] | | [address] | [place] [address] | | | | | [place] | [phone] | | | | | [address] | | | | | | [phone] | | | +--------+ + + + [...] | SPONDYLOSIS WITHOUTSPONDYLOLISTHESIS.Dictated and Signed by: Cheng Ahuamda MD | | Electronically signed: 04/04/2016 1:38 [...] + | [address] | [address] | [place], [place] | [phone] | | [facility] | | [address] | | | - IMAGING | | | | + + + + + documented in this encounter Visit Diagnoses + + | Diagnosis | + + | S/P cervical spinal fusion - Primary Arthrodesis status | + + documented in this encounter"
--- OUTSIDE RECORDS SUMMARY | ~2020-04-13 | XMS | Encounter Summary ---
Demographics + + + | Address | [address] | | | [place] [address] | + + + | Home Phone | | + + + | Preferred Language | Unknown | + + + | Marital Status | | + + + | Anabaptist Affiliation | 1013 | + + + | Race | Unknown | + + + | Ethnic Group | Unknown | + + + Author + + + | Author | [facility] | | | and [place] | + + + | Organization | [facility] | | | and [place] | + + + | Address | Unknown | + + + | Phone | Unavailable | + + + Support + + + + + | Name | Relationship | Address | Phone | + + + + + | Milady Burns | ECON | [address] | | | | | [place], [place] | | | | | [address] | | + + + + + Care Team Providers + +------+ + | Care Purchasing Director Name | Role | Phone | [...] | | | | | | | [place] | | | | | | | [...] | | | | | [address] | [address] [place], [place] | | | | | [place], [place] | [address] | | | | | [address] | [phone] | | | | | [phone] | | | | | | | Brandyn Agee MD | | | | | | [address] | | | | | | [place], [place] | | | | | | [address] | | | | | | | | +--------+ + + + + Anesthesia Record + + + + + | Procedure Name | Responsible | Anesthesia Start | Anesthesia Stop Time | | | Anesthesiologist | Time | | + + + + + | C4-5, C5-6, C6-7 | Yadi Dominguez, | 06/01/16 08 | 06/01/16 1107 | | Anterior Cervical | | | | | Discectomy Fusion | [...] 06/02/16 1530 by | | eral | [id number] catheter system; | Milka Saxena, RN | Amie Hurd RN | | IV | 20 gauge, 1 1/4 in length; | | | | | distraction, intradermal | | | | | injection, tolerated well; no | | | | | longer indicated; short term use; | | | | | 06/02/16; 1530 | | | +--------+ + + + | Airway | Placement Date: 06/01/16; | 06/01/16839 by | 06/01/16 1059 by | | [...] | | tip intact; short term use (2" | | | | | steris cut [...] | | | | PRN, Pain, Starting [facility] 06/01/16 | | AM PDT | | [...] | | | | | Anxiety, Starting [facility] 06/01/16 at | | AM PDT | [...] | | | | | Vomiting, Starting [facility] 06/01/16 at | | AM PDT | [...]
--- OUTSIDE RECORDS SUMMARY | ~2020-04-13 | XMS | Encounter Summary ---
Demographics + + + | Address | [address] | | | [place] [address] | + + + | Home Phone | | + + + | Preferred Language | Unknown | + + + | Marital Status | | + + + | Catholic Affiliation | CHR | + + + | Race | White | + + + | Ethnic Group | Not or | + + + Author + + + | Author | [facility] | + + + | Organization | [facility] | + + + | Address | Unknown | + + + | Phone | Unavailable | + + + Support + + + + + | Name | Relationship | Address | Phone | + + + + + | Tico Burns | ECON | [address] | | | | | [place], [place] | | | | | [address] | | + + + + + Care Team Providers + +------+ + | Care Montessori Paraprofessional Name | Role | Phone | + +------+ + | Moe Bella MD | PCP | | + +------+ + Encounter Details +--------+ + + + + | Date | Type | Department | Care Team | Description | +--------+ + + + + | 03/17/ | Outside | Diagnostic | Bell Mukherjee MD | | | 2012 | Referral | [facility] at [facility] | [address] | | | | Order | [address] | [address] [place], | | | | | [facility] | [place] [address] | | | | | [place], 4th Floor | [phone] | | | | | [place], [place] | | | | | | [address] | | | | | | [phone] | | | +--------+ + + + [...]
--- OUTSIDE RECORDS SUMMARY | ~2020-04-13 | XMS | Clinical Summary ---
Demographics + + + | Address | [address] | | | [place] [address] | + + + | Home Phone | | + + + | Preferred Language | Unknown | + + + | Marital Status | | + + + | Denominational Affiliation | 1013 | + + + | Race | Unknown | + + + | Ethnic Group | Unknown | + + + Author + + + | Author | [facility] | | | and [place] | + + + | Organization | [facility] | | | and [place] | + + + | Address | Unknown | + + + | Phone | Unavailable | + + + Support + + + + + | Name | Relationship | Address | Phone | + + + + + | Milady Burns | ECON | [address] | | | | | [place], [place] | | | | | [address] | | + + + + + Care Team Providers + +------+ + | Care Principal Web Developer Name | Role | Phone | [...] | 02/22 | | e | | 7[address]92 UNITS capsule | | | | 12 [...] | +---+ + + + +---+---+------+---+-------+ | TOAMS MICROLET | Use as directed | | [...] | | | | | | adult ([facility]); | | | | | | [...] | N/A: | SOFAMOR | | | [id number] | | - [id number]: Qty: 1 | c | Spine | DANEK - DIV | | | 5 / / | | on 06/01/2016 by Chauncey Lee | | Chelsea | [employer] | | | | | MD [facility] at [facility] | | al | - SFDK | | | | | [facility] | | | | | | | + +--------+--------+ +--------+--------+--------+ | Allgrft Grftn Pls 1cc Aseptic | Graft | N/A: | [employer] - | | 02/15/ | [id number] | | - [id number]: Qty: | | Spine | MEDT | | 2018 | | | 1 on 06/01/2016 by Jesus, | | Chelsea | | | | /[id number] | | Chauncey Bautista MD at [facility] | | al | | | | 8-220 | | [facility] | | | | | | / | + +--------+--------+ +--------+--------+--------+ | Allograft Cervical [id number] | Graft | N/A: | SPINALGRAFT | | 12/08/ | [id number] | | - [id number]: Qty: 1 | | Spine | | | 2019 | | | on 06/01/2016 by Chauncey Lee | | Chelsea | TECHNOLOGIE | | | /[id number] | | MD Lily at [facility] | | al | S - SPNL | | | 854 | | [facility] | | | | | | /[id number] | | | | | | | | [address] | + +--------+--------+ +--------+--------+--------+ | Allograft Cervical [id number] | Graft | N/A: | SPINALGRAFT | | 12/08/ | [id number] | | - [id number]: Qty: 1 | | Spine | | | 2019 | | | on 06/01/2016 by Chauncey Lee | | Chelsea | TECHNOLOGIE | | | /[id number] | | MD Lily at [facility] | | al | S - SPNL | | | 722 | | [facility] | | | | | | /[id number] | | | | | | | | [address] | + +--------+--------+ +--------+--------+--------+ | Allograft Cervical [id number] | Graft | N/A: | SPINALGRAFT | | | [id number] | | - [id number]: Qty: 1 | | Spine | | | | | | on 06/01/2016 by Chauncey Lee | | Chelsea | TECHNOLOGIE | | | /[id number] | | MD Lily at [facility] | | al | S - SPNL | | | 855 | | [facility] | | | | | | /[id number] | | | | | | | | [address]27 | + +--------+--------+ +--------+--------+--------+ | Screw D-Thrd Slf-Drl 3.5x15mm | Screw | N/A: | SOFAMOR | | | [id number] | | - [id number]: Qty: 5 | | Spine | DANEK - DIV | | | 5 / / | | on 06/01/2016 by Chauncey Lee | | Chelsea | [employer] | | | | | MD Lily at [facility] | | al | - SFDK | | | | | [facility] | | | | | | | + +--------+--------+ +--------+--------+--------+ | Screw D-Thrd Slf-Drl 4.0x15mm | Screw | N/A: | SOFAMOR | | | [id number] | | - [id number]: Qty: 3 | | Spine | DANEK - DIV | | | 5 / / | | on 06/01/2016 by Chauncey Lee | | Chelsea | [employer] | | | | | MD Lily at [facility] | | al | - [facility]FDK | | | | | [facility] | | | | | | | [...] + +------+ | MODA | MODA | [id number] | 11/05/19 | [phone] | [address] | PPO | | | [place]FF[place] | | 17-Pre | 9 | [phone] | | | | [place] | | sent | | [place], | | | | [place] | | | | [place] [address] | | | | STONE | | | | | | | | EPO | | | | | | +-------+--------+ +--------+ + +------+ | MODA | MODA | [id number] | 11/05/19 | [phone] | [address] | PPO | | | [place]FF[place]I | | 20-Pre | 9 | [phone] | | | | [place] | | sent | | [place], | | | | [place] | | | | [place] [address] | | | | STONE | | [...] | 1964 | [phone] | [place] [address] | | | yas | | | 5 (Home) | | | | | | | [phone] | | | | | | | 5 (Work) | | + +--------+ +--------+ + + | Gerard Burns | Person | Self | [birth year] | [address] | | | al/Fam | | 1965 | [phone] | [place] [address] | | | yas | | | 5 (Home) | | | | | | | [phone] | | | | | | | 5 (Work) | | + +--------+ +--------+ + + Advance Directives + + + + + | Type | Date Recorded | Patient | Explanation | | | | Temple Marker | | + + + + + | Power of | | | | | Outside Sales Representative Insurance | | | | + + + [...]
--- OUTSIDE RECORDS SUMMARY | ~2020-04-13 | XMS | Encounter Summary ---
Demographics + + + | Address | [address] | | | [place] [address] | + + + | Home Phone [...] + | Tico Burns | ECON | [address] | | | | | [place], [place] | | | | | [address] | | + + + + + Care Team Providers + +------+ + | Care Country Director Name | Role | Phone | [...] [address] | | | | | ([facility]) | [address] | [address] | | | | | Panniculitis | Claudette Wright | [address] | | | | | , | [place], [place] | [place] | | | | | unspecified | [address] | [address] | | | | | site | Phone: | Phone: | | | | | Procedures | [phone] | [phone] | | | | | REQUEST TO | Fax: | Fax: | | | | | SURGERY | | | | | | | ALLERGIST IMMUNOLOGIST | | | | | | | [place] EXC SKIN | | | | | [...] | | | | (HCC) Type | [place] | [address] | | | | | II or | [address] | Mailcode: | | | | | unspecified | [place], | [facility] | | | | | type | [place] [address] | Health and | | | | | diabetes | Phone: | Healing, | | | | | mellitus | [phone] | [address] | | | | | without | Fax: | [place], [place] | | | | | mention of | [phone] | [address] | | | | | complication | | Phone: | | | | | , not stated | | [phone] | | | | | as | | Fax: | | | | | uncontrolled | | [phone] | +--------+--------+ + + + + Encounter Details +--------+---------+ + + + | Date | Type | Department | Care Team | Description | +--------+---------+ + + + | 11/21/ | Office | Digestive Health | Jesus Perez, | Morbid obesity (HCC) | | 2013 | Visit | [facility] [address] | [address] | (Primary Dx); | | | | Ren[address] | [address] | [place]ena | | | | Mailcode: Center | [place], [place] | | | | | [facility] and | [address] | | | | | [facility] | [phone] | | | | | [place], [place] | | | | | | [address] | | | | | | [phone] | | | +--------+---------+ + + + [...] AM PSTPREOP INSTRUCTIONS CARLEE Wilkins SURGERY INFORMATION [facility] General Surgery Office Toll-free: ext [phone] Surgery [...] cleansing and the bottle in the mor taoc Wash from your neck to your toes. [...] please call the General Surgery Office at [phone] for [id number]. PARKING Parking for patients and visitors is available in the [facility] Parking structure located across from the emergency department. Patient parking is available on level 1 and 3. Mete red parking is available on the top level. CHECKING IN FOR SURGERY For Hospital Admission (in-patient) you will check in on the day of surgery at the Admittin g Department located on the 9th floor of [facility] TRANSPORTATION You will require transportation home on the day of discharge. Pain medications and physica l activity restrictions may limit your ability to drive safely. CANCELLING YOUR PROCEDURE Please notify the general surgery office at [phone] as soon as possible should you nee [...] prior to your surgery. PRODUCTS CONTAINING ASPIRIN Leydi-Edison, Anacin, Anexsia with Codeine, Andynos, Aspirin, Aspirin suppositories, Ascrip tin, Aspergum, Axotal, B-A-C, Baby Aspirin, Bekah, BC Powder, Bexophene, Buffaprin, Bufferin , Buffinol, Cama-Arthritis Strength, Congespirin, [place], Coricidin, Damason, Darvon, Dristan, Terra-Gesic, Digel, Dolprin #3 Tablets, Donatab, Doxaphene, Duragesic, Easprin, Ecotrin, Emag rin Forte, Emiprin, Emprazil, Equagesic, Equazine M, Excedrin, Fiogesic, Fiorgen PH, Fiorice t, Fiorinal, 4-Way Cold Tablet Gemnisyn, Indocin, Liquprin, Lortab ASA, Magnaprin, Marnal, Meprobamate, Midol, Momentum, N orgesic, Russia, Orphengesic, Pabalate, P-A-C, Percodan, Presalin, Robaxasil, Roxiprin, Sabino eto, Salocol SK-65 Compound, Sine-Aid, Sine-Off,, [place]-Lake, Supac, Talwin Compound, Trigesic, Tolectin , Traiminicin, Vanquish, ZORprin, Zomax PRODUCTS CONTAINING IBUPROFEN Advil, Aleve, Haltran, Medipren, Midol, Motrin, Naproxyn, Nuprin, Rufen OTHER PRODUCTS WHICH MAY PROMOTE BLEEDING Vitamin E, Gingko Biloba, Marine Fatty Acids, Hazel Green-3 Fish Oil Supplements documented in this encounter [...]
--- OUTSIDE RECORDS SUMMARY | ~2020-04-13 | XMS | Encounter Summary ---
Demographics + + + | Address | [address] | | | [place] [address] | + + + | Home Phone | | + + + | Preferred Language | Unknown | + + + | Marital Status | | + + + | Episcopal Affiliation | CHR | + + + [...] + | Tico Burns | ECON | [address] | | | | | [place], [place] | | | | | [address] | | + + + + + Care Team Providers + +------+ + | Care Weight Trainer Name | Role | Phone | + +------+ + | Moe Bella MD | PCP | | + +------+ + Reason for Visit +--------+ + | Reason | Comments | +--------+ + | Other | Bariatric Recall | +--------+ + Encounter Details +--------+ + + + + | Date | Type | Department | Care Team | Description | +--------+ + + + + | 02/10/ | Abstract | Digestive Health | Violetta Brown, | Other (Bariatric | | 2016 | | [facility] [address] | PARTNERSHIP DEVELOPMENT MANAGER [address] | Recall) | | | | [address] | [facility] [address] | | | | | Mailcode: Center | [place], [place] | | | | | for Health and | [address] | | | | | [facility] 2 | [phone] | | | | | [place], [place] | | | | | | [address] | | | | | | [phone] | | | +--------+ + + + [...] documented as of this encounter Progress Notes Noel Acevedo - 02/11/2016 3:22 PM PDT Recall Information ID: [id number] Status: New [10] Patient: LUCY BURNS Visit Type: [facility] RETURN [5441] Provider/Resource: VIOLETTA BROWN [[id number]] Department: BAR BARIATRIC SURG [facility] [[id number]] Notification Date: 01/09/2016 Recall Date: 01/09/2016 Expiration Date Letter: Generating Appointment: 02/27/13 Audit [place]: User: Time: Status: Ambar Webster [CHAUMJE] 02/04/2013 11:47 AM New [10] Scheduling Instructions 3 year veronika follow up 9. - 07.08.2016 Appointment Notes 2 year veronika postop - dos 3.6.2012 - open sleeve - deveney schedule 9. - 07.08.2016 Communication History User: NOEL ACEVEDO Date/time: 02/11/16 3:21 PM Comment: requested pcp notes Context: Judi Recall Report Phone number: [phone] Phone Type: Comm. type: Telephone Call type: Outgoing Contact: Lucy Burns Relation to patient: Self User: HEMANTH MOORE Date/time: 01/12/16 2:10 PM Comment: Context: Judi Recall Report Outcome: Left Message Phone number: [phone] Phone Type: Comm. type: Telephone Call type: Outgoing Contact: Lucy Burns Relation to patient: Self User: NOEL ACEVEDO Date/time: 12/09/15 11:24 AM Comment: Context: Judi Recall Report Outcome: Left Message Phone number: [phone] Phone Type: Comm. type: Telephone Call type: Outgoing Contact: Lucy Burns Relation to patient: Self documented in this encount er Plan of Treatment Not on filedocumented as of this encounter Visit Diagnoses Not on filedocumented in this encounter"
--- OUTSIDE RECORDS SUMMARY | ~2020-04-13 | XMS | Encounter Summary ---
Demographics + + + | Address | [address] | | | [place] [address] | + + + | Home Phone | | + + + | Preferred Language | Unknown | + + + | Marital Status | | + + + | Baptism Affiliation | 1013 | + + + | Race | Unknown | + + + | Ethnic Group | Unknown | + + + Author + + + | Author | [facility] | | | and [place] | + + + | Organization | [facility] | | | and [place] | + + + | Address | Unknown | + + + | Phone | Unavailable | + + + Support + + + + + | Name | Relationship | Address | Phone | + + + + + | Milady Burns | ECON | [address] | | | | | [place], [place] | | | | | [address] | | + + + + + Care Team Providers + +------+ + | Care Jewelry Making Instructor Name | Role | Phone | [...] W | | | | | [address] [facility] [address] | [facility] | | | | | [place] | [address] | | | | | [address] | [address] | | | | | [phone] | | | +--------+ + + + [...]
--- OUTSIDE RECORDS SUMMARY | ~2020-04-13 | XMS | Encounter Summary ---
Demographics + + + | Address | [address] | | | [place] [address] | + + + | Home Phone [...] | [facility] | | | and [place] | + + + | Address | Unknown | + + + | Phone | Unavailable | + + + Support + + + + + | Name | Relationship | Address | Phone | + + + + + | Milady Burns | ECON | [address] | | | | | [place], [place] | | | | | [address] | | + + + + + Care Team Providers + +------+ + | Care Coat Padder Name | Role | Phone | + +------+ + PCP | Unavailable | + +------+ + Encounter Details +--------+ + + + + | Date | Type | Department | Care Team | Description | +--------+ + + + + | 01/21/ | Hospital | [facility] | Conversion | Scrotal mass | | 2011 | Encounter | [facility] [address] | Transaction, | | | | | [address] | Provider Unknown | | | | | [place] | [phone] | | | | | [address] | | | | | | [phone] | | | +--------+ + + + [...] + +--------+ + + + | CT PELVIS W | Routin | 01/22/2012 | | Results for this | | CONTRAST | e | 12:35 PM | | procedure are in the | | | | PDT | | results section. | + +--------+ + + + documented in this encounter Results CT Pelvis w Contrast (01/22/2012 12:35 PM PDT) + + | Specimen | + + | | + + + + + | Narrative | Performed At | + + + | [facility] PELVIS W CONTRAST 01/22/2012 12:18 PM | | | HISTORY: 46 years. Male. Possible right inguinal or scrotal mass | | | TECHNIQUE: 5-mm axial images were acquired through the pelvis. | | | Oral Contrast: Readi-Cat IV contrast: 100 mL IsoVue 300 | | | COMPARISON: None. FINDINGS: The patient has a large anterior | | | pelvic wall pannus which hangs down over the inguinal region and | | | proximal thighs. The pannus shows thickening of the skin and dense | | | attenuation and edema of the subcutaneous fat consistent with a | | | panniculitis. The scrotum is normal. Enlarged reactive | | | inguinal lymph nodes are seen, the largest on the right 2.2 cm, the | | | largest on the left 2.4 cm. These do not appear calcified or necrotic. | | | The aorta and vena cava are normal in caliber throughout their | | | visualized course including the iliac and femoral vessels. No free | | | fluid or free air is seen. The visualized lower pole of the right | | | kidney is normal. The visualized small bowel and the ileocecal | | | valve are normal. No air-fluid levels are seen to suggest | | | obstruction. The appendix is identified and is normal. The | | | visualized portions of the ascending colon, transverse colon, | | | descending colon, sigmoid colon and rectum demonstrate normal wall | | | thickness. No diverticulosis is noted. The bladder is fluid | | | filled and has a normal contour and wall thickness. No intraluminal | | | filling defects are seen. No diverticulum is noted. No bladder | | | calculi are noted. The prostate is normal in size. The seminal | | | vesicles are normal. The visualized portion of the penis is normal. | | | The muscles are symmetric. No focal atrophy or soft tissue mass | | | is seen. No hernias are identified. The osseous structures do | | | not demonstrate lytic or blastic lesions. The SI joints and hip | | | joints are normal. IMPRESSION: 1. Extensive lower anterior | | | pelvic wall panniculitis without evidence of focal abscess. 2. | | | Reactive adenopathy in the inguinal regions bilaterally. | | | | | + + + + + | Procedure Note | + + | [place], Rad Conversion - 06/28/2019 2:33 AM PDT SCOT A AMANDACT PELVIS W | | CONTRAST01/22/2012 12:18 PM HISTORY:46 years. Male. Possible right inguinal or scrotal | | mass TECHNIQUE:5-mm axial images were acquired through the pelvis.Oral Contrast: | | Readi-CatIV contrast: 100 mL IsoVue 300 COMPARISON:None. FINDINGS:The patient has a | | large anterior pelvic wall pannus which hangs down over the inguinal region and proximal | | thighs. The pannus shows thickening of the skin and dense attenuation and edema of the | | subcutaneous fat consistent with a panniculitis. The scrotum is normal. Enlarged | | reactive inguinal lymph nodes are seen, the largest on the right 2.2 cm, the largest on | | the left 2.4 cm. These do not appear calcified or necrotic. The aorta and vena cava are | | normal in caliber throughout their visualized course including the iliac and femoral | | vessels. No free fluid or free air is seen. The visualized lower pole of the right | | kidney is normal. The visualized small bowel and the ileocecal valve are normal. No | | air-fluid levels are seen to suggest obstruction. The appendix is identified and is | | normal. The visualized portions of the ascending colon, transverse colon, descending | | colon, sigmoid colon and rectum demonstrate normal wall thickness. No diverticulosis is | | noted. The bladder is fluid filled and has a normal contour and wall thickness. No | | intraluminal filling defects are seen. No diverticulum is noted. No bladder calculi | | are noted. The prostate is normal in size. The seminal vesicles are normal. The | | visualized portion of the penis is normal. The muscles are symmetric. No focal atrophy | | or soft tissue mass is seen. No hernias are identified. The osseous structures do not | | demonstrate lytic or blastic lesions. The SI joints and hip joints are normal. | | IMPRESSION:1. Extensive lower anterior pelvic wall panniculitis without evidence of | | focal abscess.2. Reactive adenopathy in the inguinal regions bilaterally. | | | | | |The visualized lower pole of the right kidney is normal. | | | |The visualized small bowel and the ileocecal valve are normal. No air-fluid levels are see n to suggest obstruction. The appendix is identified and is normal. The visualized portion s of the ascending colon, | |transverse colon, descending colon, sigmoid | |colon and rectum demonstrate normal wall thickness. No diverticulosis is noted. | | | |The bladder is fluid filled and has a normal contour and wall thickness. No intraluminal f illing defects are seen. No diverticulum is noted. No bladder calculi are noted. | | | |The prostate is normal in size. The seminal vesicles are normal. The visualized portion o f the penis is normal. | | | |The muscles are symmetric. No focal atrophy or soft tissue mass is seen. No hernias are i dentified. | | | |The osseous structures do not demonstrate lytic or blastic lesions. The SI joints and hip joints are normal. | | | |IMPRESSION: | |1. Extensive lower anterior pelvic wall panniculitis without evidence of focal abscess. | |2. Reactive adenopathy in the inguinal regions bilaterally. | | | | | + + documented in this encounter Visit Diagnoses + + | Diagnosis | + + | Scrotal mass Other specified disorder of male genital organs | + + documented in this encounter"
--- OUTSIDE RECORDS SUMMARY | ~2020-04-13 | XMS | Encounter Summary ---
Demographics + + + | Address | [address] [facility] | | | [place] [address] | + + + | Home Phone [...] + | Tico Burns | ECON | [address] | | | | | [place], [place] | | | | | [address] | | + + + + + Care Team Providers + +------+ + | Care Corrugator Machine Operator Name | Role | Phone | + +------+ + | Moe Bella MD | PCP | | + +------+ + Encounter Details +--------+ + + + + | Date | Type | Department | Care Team | Description | +--------+ + + + + | 11/28/ | Manufacturing Lead | Digestive Health | Violetta Byers, | Morbid obesity (HCC) | | 2012 | | Center at [facility] [address] | HAT COPY[place] [address] | (Primary Dx); DM | | | | [address] | , [address] | (diabetes mellitus) | | | | Mailcode: Center | [place], [place] | ([facility]); Hypertension; | | | | for Health and | [address] | Hyperlipidemia; | | | | [place] [address] | [phone] | Vitamin d | | | | [place], [place] | | deficiency; GERD | | | | [address] | | (gastroesophageal | | | | [phone] | | reflux disease) | +--------+ + [...] + + | DM (diabetes mellitus) ([facility]) Type II or unspecified type diabetes [...]
--- OUTSIDE RECORDS SUMMARY | ~2020-04-13 | XMS | Encounter Summary ---
Demographics + + + | Address | [address] [facility] | | | [place] [address] | + + + | Home Phone [...] + | Tico Burns | ECON | [address] | | | | | [place], [place] | | | | | [address] | | + + + + + Care Team Providers + +------+ + | Care Deck Mate Name | Role | Phone | + [...] 2011 | | Center at [facility] [address] | [place] [address] | | | | | [address] | [facility] 350 | | | | | Mailcode: Center | [place], [place] | | | | | for Health and | [address] | | | | | [facility], [facility] 2 | [phone] | | | | | [place], [place] | | | | | | [address] | | | | | | [phone] | | | +--------+ + + + [...]
--- OUTSIDE RECORDS SUMMARY | ~2020-04-13 | XMS | Encounter Summary ---
Demographics + + + | Address | [address] [facility] | | | [place] [address] | + + + | Home Phone | | + + + | Preferred Language | Unknown | + + + | Marital Status | | + + + | Samaritan Affiliation | 1013 | + + + | Race | Unknown | + + + | Ethnic Group | Unknown | + + + Author + + + | Author | [facility] | | | and [place] | + + + | Organization | [facility] | | | and [place] | + + + | Address | Unknown | + + + | Phone | Unavailable | + + + Support + + + + + | Name | Relationship | Address | Phone | + + + + + | Milady Burns | ECON | [address] | | | | | [place], [place] | | | | | [address] | | + + + + + Care Team Providers + +------+ + | Care Legal Internship Name | Role | Phone | [...] | | [address] | [place] [address] | | | | | [place] [address] | [phone] | | | | | [address] | | | | | | [phone] | | | +--------+ + + + [...]
--- OUTSIDE RECORDS SUMMARY | ~2020-04-13 | XMS | Encounter Summary ---
Demographics + + + | Address | [address] [facility] | | | [place] [address] | + + + | Home Phone | | + + + | Preferred Language | Unknown | + + + | Marital Status | | + + + | Hoahaoism Affiliation | CHR | + + + [...] + | Tico Burns | ECON | [address] | | | | | [place], [place] | | | | | [address] | | + + + + + Care Team Providers + +------+ + | Care Mortgage Collector Name | Role | Phone | + [...] | | | | (HCC) Type | [place] [address] | | | | | II or | [address] | Center for | | | | | unspecified | [place], | Health and | | | | | type | [place] [address] | Healing, | | | | | diabetes | Phone: | Building 2 | | | | | mellitus | [phone] | [place], [place] | | | | | without | Fax: | [address] | | | | | mention of | [phone] | Phone: | | | | | complication | | [phone] | | | | | , not stated | | Fax: | | | | | as | | [phone] | | | | | uncontrolled | | | +--------+--------+ + + + + Encounter Details +--------+---------+ + + + | Date | Type | Department | Care Team | Description | +--------+---------+ + + + | 06/10/ | Office | Digestive Health | [address] | Diabetes mellitus | | 2011 | Visit | Center at [facility] [address] | | ([facility]); Morbid | | | | [address] | | obesity ([facility]) | | | | for Health and | | | | | | Healing, Building 2 | | | | | | [place], [place] | | | | | | [address] | | | | | | [phone] | | | +--------+---------+ + + + [...] of Visit: 2:30 until 3:20. 50 minutes [id number] consult with the silvino entShilpi. SUBJECTIVE: Patient Attended Public Meeting: yes Questions/ [...] milk, 2%. Lunch: noon to 2 [address] [place] from the [employer], 12 " Tuna salad , lettuce, olives and onions, pepper tomas elroy deisi. Has this about 3 times per week. Dinner: 6:30 PM Starts cooking dinner about 4:30 and snacks and eats while he is making dinner. Doesn't eat after dinner. Snacks on crackers and carbs. Food Allergies: No Food Intolerances: No Lactose Intolerance: No Emotional Eating: Yes, due to Stress Likes to cook when he is stressed, at home. Tends to bake. Weight interchange agent the past year: About the same: Best [...] Other relevant labs if available from outside [facility]. Nutrition Diagnosis: Obesity as evidenced by [...] planned snack "veggie tray with cottage cheese Kazakh yogurt dip" at 4 PM wit h [...] | + +--------+ + + + | MS MNT INITIAL | Routin | 06/10/2012 | [...]
--- OUTSIDE RECORDS SUMMARY | ~2020-04-13 | XMS | Encounter Summary ---
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
--- OUTSIDE RECORDS SUMMARY | ~2020-04-13 | XMS | Encounter Summary ---
Demographics + + + | Address | [address] [facility] | | | [place] [address] | + + + | Home Phone | | + + + | Preferred Language | Unknown | + + + | Marital Status | | + + + | Mandaen Affiliation | 1013 | + + + | Race | Unknown | + + + | Ethnic Group | Unknown | + + + Author + + + | Author | [facility] | | | and [place] | + + + | Organization | [facility] | | | and [place] | + + + | Address | Unknown | + + + | Phone | Unavailable | + + + Support + + + + + | Name | Relationship | Address | Phone | + + + + + | Milady Burns | ECON | [address] | | | | | [place] | | | | | [address] | | + + + + + Care Team Providers + +------+ + | Care Voice Pathologist Name | Role | Phone | + [...] | | | | | with | [facility], | [address] | | | | | radiculopath | [place] [address] | [place], | | | | | y | Phone: | [place] [address] | | | | | Degenerative | [phone] | Phone: | | | | | disc | Fax: | [phone] | | | | | disease, | [phone] | Fax: | | | | | cervical | | [phone] | | | | | Foraminal | [...] | | | | | ([facility]) | | | | | | | Sleep apnea, | | | | | | | obstructive | | | +--------+ + + + + + Encounter Details +--------+---------+ + + + | Date | Type | Department | Care Team | Description | +--------+---------+ + + + | 05/01/ | Office | [facility] | Chauncey Morelos MD | Thyroid cancer (HCC) | | 2016 | Visit | OTOLARYNGOLOGY [address] | [address] | (Primary Dx) | | | | [address] | [place] [address] | | | | | KENYA Fernández | [phone] | | | | | [address] | | | | | | [phone] | Harry Lechuga MD | | | | | | [address] | | | | | | [address] [place] | | | | | | [address] | | | | | | | [...] | | | | type ([facility]) Sleep | | | | | | apnea, obstructive | | + + +--------+ + + documented as of this encounter Visit Diagnoses + + | Diagnosis | + + | Thyroid cancer (HCC) - Primary Malignant neoplasm of thyroid gland | + + documented in this encounter
--- OUTSIDE RECORDS SUMMARY | ~2020-04-13 | XMS | Encounter Summary ---
Demographics + + + | Address | [address] [facility] | | | [place] [address] | + + + | Home Phone | | + + + | Preferred Language | Unknown | + + + | Marital Status | | + + + | Anglican Affiliation | CHR | + + + [...] [place], [place] | | | | | [address] | | + + + + + Care Team Providers + +------+ + | Care Focuser Name | Role | Phone | + [...] Obesity | Violetta Sweeney NP | Faculty [facility] | | | | | Procedures | [address] | [address] | | | | | CONSULT TO | [address], | [address] | | | | | PSYCHIATRY - | [address] | [address] | | | | | ADULT | [place], [place] | [place] | | | | | | [address] | [address] | | | | | | Phone: | floor | | | | | | [phone] | | | | | | | Fax: | [address] | | | | | | [phone] | Phone: | | | | | | | [phone] | | | | | | | Fax: | | | | | | | [phone] | + +--------+ + + + + Encounter Details +--------+ + + + + | Date | Type | Department | Care Team | Description | +--------+ + + + + | 04/24/ | Documentati | Digestive Health | Violetta Byers, | | | 2011 | on | Center at [facility] [address] | DIRECTOR OF DISTRICT OFFICE [address] | | | | | [address] | [address] | | | | | Mailcode: Center | [place], [place] | | | | | for Health and | [address] | | | | | Healing, Building 2 | [phone] | | | | | [facility] [place] | | | | | | [address] | | | | | | [phone] | | | +--------+ + + + [...]
--- OUTSIDE RECORDS SUMMARY | ~2020-04-13 | XMS | Encounter Summary ---
Demographics + + + | Address | [address] [facility] | | | [place] [address] | + + + | Home Phone | | + + + | Preferred Language | Unknown | + + + | Marital Status | | + + + | Yazidi Affiliation | 1013 | + + + | Race | Unknown | + + + | Ethnic Group | Unknown | + + + Author + + + | Author | [facility] | | | and [place] | + + + | Organization | [facility] | | | and [place] | + + + | Address | Unknown | + + + | Phone | Unavailable | + + + Support + + + + + | Name | Relationship | Address | Phone | + + + + + | Milady Burns | ECON | [address] | | | | | [place] | | | | | [address] | | + + + + + Care Team Providers + +------+ + | Care Ornamenter Hand Name | Role | Phone | [...] | | | | | with | [facility], | [address] | | | | | radiculopath | [place] [address] | [place], | | | | | y | Phone: | [place] [address] | | | | | Degenerative | [phone] | Phone: | | | | | disc | Fax: | [phone] | | | | | disease, | [phone] | Fax: | | | | | cervical | | [phone] | | | | | Foraminal | [...] | | | | | | | ([facility]) | | | | | | | Sleep apnea, | | | | | | | obstructive | | | +--------+ + + + + + Encounter Details +--------+---------+ + + + | Date | Type | Department | Care Team | Description | +--------+---------+ + + + | 05/01/ | Office | [facility] | Chauncey Morelos MD | Thyroid cancer (HCC) | | 2016 | Visit | OTOLARYNGOLOGY [address] | [address] | (Primary Dx) | | | | [address] | [place] [address] | | | | | KENYA Fernández | [phone] | | | | | [address] | | | | | | [phone] | Harry Lechuga MD | | | | | | [address] | | | | | | [address] [place] | | | | | | [address] | | | | | | | [...] | | | | | | type ([facility]) Sleep | | | | | | apnea, obstructive | | + + +--------+ + + documented as of this encounter Visit Diagnoses + + | Diagnosis | + + | Thyroid cancer (HCC) - Primary Malignant neoplasm of thyroid gland | + + documented in this encounter
--- OUTSIDE RECORDS SUMMARY | ~2020-04-13 | XMS | Encounter Summary ---
Demographics + + + | Address | [address] [facility] | | | [place] [address] | + + + | Home Phone [...] + | Tico Burns | ECON | [address] | | | | | [place], [place] | | | | | [address] | | + + + + + Care Team Providers + +------+ + | Care Carpenter Wooden Tank Erecting Name | Role | Phone | + [...] | | Nephrolithiasis | | | | 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
--- OUTSIDE RECORDS SUMMARY | ~2020-04-13 | XMS | Encounter Summary ---
Demographics + + + | Address | [address] | | | [place] [address] | + + + | Home Phone [...] + | Organization | [facility] | | | and [place] | + + + | Address | Unknown | + + + | Phone | Unavailable | + + + Support + + + + + | Name | Relationship | Address | Phone | + + + + + | Milady Burns | ECON | [address] | | | | | [place] | | | | | [address] | | + + + + + Care Team Providers + +------+ + | Care Director Radiation Oncology Name | Role | Phone | + [...] + + | 07/11/ | Office | [facility] | Jose Mirza | S/P cervical spinal | | 2016 | Visit | NEUROSURGERY [address] | [address] | fusion (Primary Dx); | | | | [address] | [address] | Left arm weakness; | | | | [place], [place] | [place] [address] | Cervical spondylosis | | | | [address] | [phone] | with radiculopathy; | | | | [phone] | | Foraminal stenosis | | | [...] from the original. Jose Mirza PA-C [address] [facility], [address] [place] [address] FAX: NEUROSURGERY FOLLOW-UP CHIEF COMPLAINT: Chief Complaint [...] Muscle spasms. 90 tablet 3 ergocalciferol (ERGOCALCIFEROL) 23327 UNITS capsule Take 50,000 Units by mouth Once a w [place]. FLUoxetine (PROZAC) 20 mg capsule Take 20 [...] rehabilitation and to advance with therapy as tolera lou. He may begin removing his cervical [...] 2 or 3 Views (09/14/2016 9:39 AM [facility]) + + | Specimen | + + | | + + + + + | Narrative | Performed At | + + + | XR CERVICAL SPINE 2 OR 3 VIEWS 09/14/2016 9:39 AM HISTORY: | [facility] | | Postop. COMPARISON: Multiple priors. FINDINGS: Visualized | [facility] | | skull base and facial structures demonstrate no acute findings. The | [facility] | | prevertebral soft tissues are mildly [...] | Procedure Note | + + | [place], Rad Results In - 09/14/2016 10:09 AM [...] + + | Performing | Address | City[facility] | Phone Number | | Organization | | | | + + + + + | [address] | [address] | [place], [place] | [phone] | | [facility] | | [address] | | | - IMAGING | | [...]
--- OUTSIDE RECORDS SUMMARY | ~2020-04-13 | XMS | Encounter Summary ---
Demographics + + + | Address | [address] [facility] | | | [place] [address] | + + + | Home Phone [...] Organization | [facility] | | | and [place] | + + + | Address | Unknown | + + + | Phone | Unavailable | + + + Support + + + + + | Name | Relationship | Address | Phone | + + + + + | Milady Burns | ECON | [address] | | | | | [place], [place] | | | | | [address] | | + + + + + Care Team Providers + +------+ + | Care Electronic Field Service Engineer Name | Role | Phone | + +------+ + PCP | Unavailable | + +------+ + Encounter Details +--------+ + + + + | Date | Type | Department | Care Team | Description | +--------+ + + + + | 01/21/ | Hospital | [facility] | Conversion | Scrotal mass | | 2011 | Encounter | [facility] [address] | Transaction, | | | | | [address] | Provider Unknown | | | | | [place] | [phone] | | | | | [address] | | | | | | [phone] | | | +--------+ + + + [...] | + + + | BOB Bautista [place] [facility] PELVIS W CONTRAST 01/22/2012 12:18 PM [...]
--- OUTSIDE RECORDS SUMMARY | ~2020-04-13 | XMS | Clinical Summary ---
Demographics + + + | Address | [address] [facility] | | | [place] [address] | + + + | Home Phone [...] Organization | [facility] | | | and [place] | + + + | Address | Unknown | + + + | Phone | Unavailable | + + + Support + + + + + | Name | Relationship | Address | Phone | + + + + + | Milady Burns | ECON | [address] | | | | | [place], [place] | | | | | [address] | | + + + + + Care Team Providers + +------+ + | Care Rn Cardiac Name | Role | Phone | + [...] | 02/22 | | e | | 46712 UNITS capsule | | | | 12 [...] | | | | | | adult ([facility]); | | | | | | Bilateral [...] | N/A: | SOFAMOR | | | [id number] | | - [id number]: Qty: 1 | c | Spine | DANEK - DIV | | | 5 / / | | on 06/01/2016 by Chauncey Lee | | Cehlsea | [employer] | | | | | MD [place] at [facility] | | al | - SFDK | | | | | [facility] | | | | | | | + +--------+--------+ +--------+--------+--------+ | Allgrft Grftn Pls 1cc Aseptic | Graft | N/A: | [employer] - | | 02/15/ | [id number] | | - [id number]: Qty: | | Spine | MEDT | | 2018 | | | 1 on 06/01/2016 by Jesus, | | [place] | | | | /[id number] | | Chauncey Bautista MD at [facility] | | al | | | | 8-220 | | [facility] | | | | | | / | + +--------+--------+ +--------+--------+--------+ | Allograft Cervical [id number] | Graft | N/A: | SPINALGRAFT | | 12/08/ | [id number] | | - [id number]: Qty: 1 | | Spine | | | 2019 | | | on 06/01/2016 by Chauncey Lee | | Chelsea | TECHNOLOGIE | | | /[id number] | | MD Lily at [facility] | | al | S - SPNL | | | 854 | | [facility] | | | | | | /[id number] | | | | | | | | [address] | + +--------+--------+ +--------+--------+--------+ | Allograft Cervical [id number] | Graft | N/A: | SPINALGRAFT | | 12/08/ | [id number] | | - [id number]: Qty: 1 | | Spine | | | 2019 | | | on 06/01/2016 by Chauncey Lee | | [place] | TECHNOLOGIE | | | /[id number] | | MD Lily at [facility] | | al | S - SPNL | | | 722 | | [facility] | | | | | | /[id number] | | | | | | | | [address] | + +--------+--------+ +--------+--------+--------+ | Allograft Cervical [id number] | Graft | N/A: | SPINALGRAFT | | | 110843 | | - [id number]: Qty: 1 | | Spine | | | | | | on 06/01/2016 by Chauncey Lee | | [place] | TECHNOLOGIE | | | /[id number] | | MD Lily at [facility] | | al | S - SPNL | | | 855 | | [facility] | | | | | | /[id number] | | | | | | | | [address] | + +--------+--------+ +--------+--------+--------+ | Screw D-Thrd Slf-Drl 3.5x15mm | Screw | N/A: | SOFAMOR | | | [id number] | | - [id number]: Qty: 5 | | Spine | DANEK - DIV | | | 5 / / | | on 06/01/2016 by Chauncey Lee | | Chelsea | [employer] | | | | | MD Lily at [facility] | | al | - SFDK | | | | | [facility] | | | | | | | + +--------+--------+ +--------+--------+--------+ | Screw D-Thrd Slf-Drl 4.0x15mm | Screw | N/A: | SOFAMOR | | | [id number] | | - [id number]: Qty: 3 | | Spine | DANEK - DIV | | | 5 / / | | on 06/01/2016 by Chauncey Lee | | Chelsea | [employer] | | | | | MD Lily at [facility] | | al | - SFDK | | | | | [facility] | | | | | [...] + +------+ | MODA | MODA | [id number] | 11/05/19 | [phone] | [address] | PPO | | | [place] | | 17-Pre | 9 | [phone] | | | | [place] | | sent | | [place], | | | | [place] | | | | [place] [address] | | | | STONE | | | | | | | | EPO | | | | | | +-------+--------+ +--------+ + +------+ | MODA | MODA | [id number] | 11/05/19 | [phone] | [address] | PPO | | | [place]FF[place]I | | 20-Pre | 9 | [address] | | | | [place] | | sent | | [place], | | | | [place] | | | | [place] [address] | | | | STONE | | [...] | 1964 | [phone] | [place] [address] | | | yas | | | 5 (Home) | | | | | | | [phone] | | | | | | | 5 (Work) | | + +--------+ +--------+ + + | Gerard Burns | Person | Self | [birth year] | [address] | | | al/Fam | | 1965 | [phone] | [place] [address] | | | yas | | | 5 (Home) | | | | | | | [phone] | | | | | | | 5 (Work) | | + +--------+ +--------+ + + Advance Directives + + + + + | Type | Date Recorded | Patient | Explanation | | | | Stone Fabricator | | + + + + + | Power of | | | | | Production Team Member | | | | + + + [...]
--- OUTSIDE RECORDS SUMMARY | ~2020-04-13 | XMS | Encounter Summary ---
Demographics + + + | Address | [address] [facility] | | | [place] [address] | + + + | Home Phone [...] + | Tico Burns | ECON | [address] | | | | | [place], [place] | | | | | [address] | | + + + + + Care Team Providers + +------+ + | Care Medical Record Technician Name | Role | Phone | [...] | | | Avamanda Mailcode: CH4S | [facility] | | | | | [facility] | [place], [place] | | | | | and Healing, | [address] | | | | | [address] | [phone] | | | | | Floor [place], [place] | | | | | | [address] | | | | | | [phone] | | | +--------+ + + + [...]
--- OUTSIDE RECORDS SUMMARY | ~2020-04-13 | XMS | Encounter Summary ---
Demographics + + + | Address | [address] [facility] | | | [place] [address] | + + + | Home Phone [...] + | Tico Burns | ECON | [address] | | | | | [place], [place] | | | | | [address] | | + + + + + Care Team Providers + +------+ + | Care Residential Plumber Name | Role | Phone | + +------+ + | Moe Bella MD | PCP | | + +------+ + Encounter Details +--------+ + + + + | Date | Type | Department | Care Team | Description | +--------+ + + + + | 12/26/ | Abstract | Digestive Health | Violetta Byers, | | | 2012 | | Center at [facility] [address] | UNDERWRITING INTERN [address] | | | | | [address] | [facility] 350 | | | | | Mailcode: Center | [place], [place] | | | | | for Health and | [address] | | | | | [facility] 2 | [phone] | | | | | [place], [place] | | | | | | [address] | | | | | | [phone] | | | +--------+ + + + [...]
--- OUTSIDE RECORDS SUMMARY | ~2020-04-13 | XMS | Encounter Summary ---
Demographics + + + | Address | [address] | | | [place] [address] | + + + | Home Phone | | + + + | Preferred Language | Unknown | + + + | Marital Status | | + + + | Rastafari Affiliation | 1013 | + + + | Race | Unknown | + + + | Ethnic Group | Unknown | + + + Author + + + | Author | [facility] | | | and [place] | + + + | Organization | [facility] | | | and [place] | + + + | Address | Unknown | + + + | Phone | Unavailable | + + + Support + + + + + | Name | Relationship | Address | Phone | + + + + + | Milady Burns | ECON | [address] | | | | | [place] | | | | | [address] | | + + + + + Care Team Providers + +------+ + | Care Automatic Brine Mixer Operator Name | Role | Phone | + +------+ + | Moe Bella MD | PCP | | + +------+ + Encounter Details +--------+ + + + + | Date | Type | Department | Care Team | Description | +--------+ + + + + | 03/16/ | Hospital | [facility] | Chauncey Lee MD | S/P cervical spinal | | 2017 | Encounter | MED CTR XRAY [address] | fusion | | | | [place] | [place] [address] | | | | | [place] [address] | [phone] | | | | | [phone] | | | +--------+ + + + [...] | | | 12 | | | [id number] UNITS capsule | | | | | [...] + | [facility] | [address] | [place], [place] | [phone] | | [facility] | | [address] | | | - IMAGING | | | | + + + + + documented in this encounter Visit Diagnoses + + | Diagnosis | + + | S/P cervical spinal fusion Arthrodesis status | + + documented in this encounter"
--- OUTSIDE RECORDS SUMMARY | ~2020-04-13 | XMS | Encounter Summary ---
Demographics + + + | Address | [address] | | | [place] [address] | + + + | Home Phone [...] + | Tico Burns | ECON | [address] | | | | | [place], [place] | | | | | [address] | | + + + + + Care Team Providers + +------+ + | Care Color Card Maker Name | Role | Phone | [...] + + + + | 04/11/ | Anesthesia | 6A Intra Op [id number] | Eliud Pelaez, | | | 2012 | Event | MIRELLA Wilkins | MD [address] | | | | | [facility] | [address] | | | | | Hospital Admitting | [place], [place] | | | | | Desk Located on the | [address] | | | | | 9th floor | [phone] | | | | | [place], [place] | | | | | | [address] | Tank Gibson RN | | | | | | [address] | | | | | | [address] | | | | | | [place], [place] | | | | | | [address] | | +--------+ + + + + [...] | Total | + + + | propofol | 350 mg | + + + | lidocaine 2% | 60 mg | + + + | succinylcholine | 160 mg | + + + | fentaNYL | 300 mcg | + + + | rocuronium | 70 mg | + + + | ceFAZolin | 2,000 mg | + + + | atropine (adult) | 0.2 mg | + + + | insulin regular INF (1unit/mL) | 10.07 Units | + + + | insulin regular (HUMULIN | 10 Units | | R,NOVOLIN R) injection | | + + + | ePHEDrine | 10 mg | + + + | neostigmine | 4 mg | + + + | glycopyrrolate | 0.6 mg | + + + | LR | 1,000 mL | + + + | NS | 1,000 mL | + + + + + | Name | + + | Insp Timbo | + + | Et Timbo | + + | O2 Flow Rate [...] | No; 20; Left; Antecubital; | Tommy Whatley RN | Jerald Yeung RN | | Periph | Lidocaine; No; Positive | | | | eral | | | | | Line | | | | +--------+ + + + | RETIRE | 04/11/13; 0950; 04/13/13; 1542; | 04/11/13 0950 by | 04/13/13 1542 by | | D - | No; 16 fr. 5c ANUPAMA chau to | Catherine Greenfield RN | Jerald Yeung RN | | Urinar [...] | | | + +--------+ +--------+------+------+ | atropine injection | Given | 04/11/20 | 0.2 mg | | | | intravenous, INTRAPROCEDURE PRN, | | 13 10:39 | | | | | Starting Sun04/11/13 at 1039, | | AM PDT | | | | | Until Sun04/11/13 at 1244, | | | | | | | bradycardia | | | | | | + +--------+ +--------+------+------+ +---+---+ | | | +---+---+ + +-------+ + +---+---+ | ceFAZolin (aka ANCEF) injection | Given | 04/11/20 | 2,000 mg | | | | intravenous, INTRAPROCEDURE | | 13 10:20 | | | | | PRN, Starting Sun04/11/13 at 1020, | | AM PDT | | | | | Until Sun04/11/13 at 1244 | | | | | | + +-------+ + +---+---+ +---+---+ | | | +---+---+ + +-------+ +-------+---+---+ | ePHEDrine injection | Given | 04/11/20 | 10 mg | | | | intravenous, INTRAPROCEDURE PRN, | | 13 9:53 | | | | | Starting Sun04/11/13 at 0953, | | AM PDT | | | | | Until Sun04/11/13 at 1244 | | | | | | + +-------+ +-------+---+---+ +---+---+ | | | +---+---+ + +-------+ +--------+---+---+ | fentaNYL citrate (PF) (aka | Given | 04/11/20 | 50 mcg | | | | SUBLIMAZE) injection | | 13 11:45 | | | | | INTRAPROCEDURE PRN, Starting Fri | | AM PDT | | | | | 04/11/13 at 0941, Until Sun04/11/13 | | | | | | | at 1244, sedation | | | | | | + +-------+ +--------+---+---+ +-------+ +---------+---+---+ | Given | 04/11/20 | 50 mcg | | | | | 13 11:28 | | | | | | AM PDT | | | | +-------+ +---------+---+---+ | Given | 04/11/20 | 100 mcg | | | | | 13 10:15 | | | | | | AM PDT | | | | +-------+ +---------+---+---+ +---+---+ | | | +---+---+ + +-------+ +--------+---+---+ | glycopyrrolate (anoop ODONNELL) | Given | 04/11/20 | 0.6 mg | | | | injection INTRAPROCEDURE PRN, | | 13 12:26 | | | | | Starting Sun04/11/13 at 1226, | | PM PDT | | | | | Until Sun04/11/13 at 1244 | | | | | | + +-------+ +--------+---+---+ +---+---+ | | | +---+---+ + +-------+ +---------+---+---+ | insulin regular (leoraa HUMULIN R) | Given | 04/11/20 | 5 Units | | | | injection INTRAPROCEDURE PRN, | | 13 11:33 | | | | | Starting 04/11/13 at 1048, | | AM PDT | | | | | Until Sun04/11/13 at 1244 | | | | | | + +-------+ +---------+---+---+ +-------+ +---------+---+---+ | Given | 04/11/20 | 5 Units | | | | | 13 10:48 | | | | | | AM PDT | | | | +-------+ +---------+---+---+ +---+---+ | | | +---+---+ + + + + +---------+---+ | insulin regular in NaCl 0.9% IV | Rate/Dos | 04/11/20 | 4 | 4 mL/hr | | | infusion 250 units/250 mL (1 | e Change | 13 12:10 | Units/hr | | | | unit/mL) INTRAPROCEDURE | | PM PDT | | | | | CONTINUOUS PRN, Starting Fri | | | | | | | 04/11/13 at 1016, Until Sun04/11/13 | | | | | | | at 1244 | | | | | | + + + + +---------+---+ + + + +---------+---+ | Rate/Dose Change | 04/11/20 | 6 | 6 mL/hr | | | | 13 11:33 | Units/hr | | | | | AM PDT | | | | + + + +---------+---+ | Rate/Dose Change | 04/11/20 | 4 | 4 mL/hr | | | | 13 10:45 | Units/hr | | | | | AM PDT | | | | + + + +---------+---+ +---+---+ | | | +---+---+ + +---------+ +---+---+---+ | lactated ringers IV | New Bag | 04/11/20 | | | | | INTRAPROCEDURE CONTINUOUS PRN, | | 13 12:15 | | | | | Starting Sun04/11/13 at 0910, | | PM PDT | | | | | Until Sun04/11/13 at 1244 | | | | | | + +---------+ +---+---+---+ +---------+ +---+---+---+ | New Bag | 04/11/20 | | | | | | 13 9:10 | | | | | | AM PDT | | | | +---------+ +---+---+---+ +---+---+ | | | +---+---+ + +-------+ +-------+---+---+ | lidocaine (aka XYLOCAINE MPF) | Given | 04/11/20 | 60 mg | | | | 20 mg/mL (2 %) injection | | 13 9:41 | | | | | INTRAPROCEDURE PRN, Starting Fri | | AM PDT | | | | | 04/11/13 at 0941, Until 04/11/13 | | | | | | | at 1244 | | | | | | + +-------+ +-------+---+---+ +---+---+ | | | +---+---+ + +---------+ +---+---+---+ | NaCl 0.9 % IV INTRAPROCEDURE | New Bag | 04/11/20 | | | | | CONTINUOUS PRN, Starting Fri | | 13 12:15 | | | | | 04/11/13 at 0958, Until 04/11/13 | | PM PDT | | | | | at 1244 | | | | | | + +---------+ +---+---+---+ +---------+ +---+---+---+ | New Bag | 04/11/20 | | | | | | 13 9:58 | | | | | | AM PDT | | | | +---------+ +---+---+---+ +---+---+ | | | +---+---+ + +-------+ +------+---+---+ | neostigmine (aka PROSTIGMIN) | Given | 04/11/20 | 4 mg | | | | injection intravenous, | | 13 12:26 | | | | | INTRAPROCEDURE PRN, Starting Fri | | PM PDT | | | | | 04/11/13 at 1226, Until 04/11/13 | | | | | | | at 1244 | | | | | | + +-------+ +------+---+---+ +---+---+ | | | +---+---+ + +-------+ +--------+---+---+ | propofol INTRAPROCEDURE PRN, | Given | 04/11/20 | 350 mg | | | | Starting Sun04/11/13 at 0941, | | 13 9:41 | | | | | Until Sun04/11/13 at 1244 | | AM PDT | | | | + +-------+ +--------+---+---+ +---+---+ | | | +---+---+ + +-------+ +-------+---+---+ | rocuronium (aka ZEMURON) | Given | 04/11/20 | 20 mg | | | | injection INTRAPROCEDURE PRN, | | 13 11:17 | | | | | Starting Sun04/11/13 at 0948, | | AM PDT | | | | | Until Sun04/11/13 at 1244, | | | | | | | Neuromuscular block | | | | | | + +-------+ +-------+---+---+ +-------+ +-------+---+---+ | Given | 04/11/20 | 50 mg | | | | | 13 9:48 | | | | | | AM PDT | | | | +-------+ +-------+---+---+ +---+---+ | | | +---+---+ + +-------+ +--------+---+---+ | SUCCINYLCHOLINE CHLORIDE 20 | Given | 04/11/20 | 160 mg | | | | MG/ML INJ (PROSED/RSI) | | 13 9:41 | | | | | INTRAPROCEDURE PRN, Starting Fri | | AM PDT | | | | | 04/11/13 at 0941, Until 04/11/13 | | | | | | | at 1244, Neuromuscular block | | | | | | + +-------+ +--------+---+---+ +---+---+ | | | +---+---+ documented in this encounter"
--- OUTSIDE RECORDS SUMMARY | ~2020-04-13 | XMS | Encounter Summary ---
Demographics + + + | Address | [address] | | | [place] [address] | + + + | Home Phone [...] | Organization | [facility] | | | and [place] | + + + | Address | Unknown | + + + | Phone | Unavailable | + + + Support + + + + + | Name | Relationship | Address | Phone | + + + + + | Milady Burns | ECON | [address] | | | | | [place] | | | | | [address] | | + + + + + Care Team Providers + +------+ + | Care Unhairing Inspector Name | Role | Phone | [...] (Primary Dx); S/P | | | | [place], [place] | [place] [address] | cervical spinal | | | | [address] | [phone] | fusion | | | | [phone] | | | +--------+ + + + [...] + | [facility] | [address] | [place] | [phone] | | [facility] | | [address] | | | - IMAGING | | [...]
--- OUTSIDE RECORDS SUMMARY | ~2020-04-13 | XMS | Encounter Summary ---
Demographics + + + | Address | [address] | | | [place] [address] | + + + | Home Phone [...] + | Tico Burns | ECON | [address] | | | | | [place], [place] | | | | | [address] | | + + + + + Care Team Providers + +------+ + | Care Filler Wiper Name | Role | Phone | + [...] Obesity | Violetta Sweeney NP | [facility] | | | | | Procedures | [address] | | | | | CONSULT TO | [address], | [address] | | | | | PSYCHIATRY - | [address] | Valentín Horner | | | | | ADULT | [place], [place] | [place] | | | | | | [address] | Building [address] | | | | | | Phone: | floor | | | | | | [phone] | [place], [place] | | | | | | Fax: | [address] | | | | | | [phone] | Phone: | | | | | | | [phone] | | | | | | | Fax: | | | | | | | [phone] | + +--------+ + + + + Encounter Details +--------+ + + + + | Date | Type | Department | Care Team | Description | +--------+ + + + + | 04/24/ | Documentati | Digestive Health | Violetta Byers, | | | 2011 | on | Center at [facility] [address] | [address] | | | | | [address] | [address] | | | | | Mailcode: Center | [place], [place] | | | | | for Health and | [address] | | | | | Healing, [address] | [phone] | | | | | [facility] [place] | | | | | | [address] | | | | | | [phone] | | | +--------+ + + + [...]
--- OUTSIDE RECORDS SUMMARY | ~2020-04-13 | XMS | Encounter Summary ---
Demographics + + + | Address | [address] | | | [place] [address] | + + + | Home Phone | | + + + | Preferred Language | Unknown | + + + | Marital Status | | + + + | Taoist Affiliation | 1013 | + + + | Race | Unknown | + + + | Ethnic Group | Unknown | + + + Author + + + | Author | [facility] | | | and [place] | + + + | Organization | [facility] | | | and [place] | + + + | Address | Unknown | + + + | Phone | Unavailable | + + + Support + + + + + | Name | Relationship | Address | Phone | + + + + + | Milady Burns | ECON | [address] | | | | | [place] | | | | | [address] | | + + + + + Care Team Providers + +------+ + | Care Surveillance Operator Name | Role | Phone | + +------+ + | Moe Bella MD | PCP | | + +------+ + Encounter Details +--------+ + + + + | Date | Type | Department | Care Team | Description | +--------+ + + + + | 09/14/ | Hospital | [facility] | Jose Mirza | S/P cervical spinal | | 2016 | Encounter | MED CTR XRAY [address] | [address] | fusion; Left arm | | | | [place] | [address] | weakness; Cervical | | | | [place] [address] | [place] [address] | spondylosis with | | | | [phone] | [phone] | radiculopathy; | | | | | | Foraminal stenosis | | | | | | of cervical region | +--------+ + + + + Social [...] | | | 12 | | | [id number] UNITS capsule | | | | | [...] XR CERVICAL SPINE 2 | Routin | 09/14/2016 | S/P cervical | Results for this | | [place] 3 VIEWS | e | 9:39 AM | spinal fusion Left | procedure are in the | | | | PST | arm weakness | results section. | | | | | Cervical spondylosis | | | | | | with radiculopathy | | | | | | Foraminal stenosis | | | | | | of cervical region | | + +--------+ + [...] Postop. COMPARISON: Multiple priors. FINDINGS: Visualized | [facility] | | skull base and facial structures demonstrate no acute findings. The | [facility] | | prevertebral soft tissues are mildly [...] + | [facility] | [address] | [place], [place] | [phone] | | [facility] | | [address] | | | - IMAGING | | | | + + + + + documented in this encounter Visit Diagnoses + + | Diagnosis | + + | S/P cervical spinal fusion Arthrodesis status | + + | Left arm weakness Other musculoskeletal symptoms referable to limbs | + + | Cervical spondylosis with radiculopathy Cervical spondylosis with myelopathy | + + | Foraminal stenosis of cervical region Spinal stenosis in cervical region | + + documented in this encounter"
--- OUTSIDE RECORDS SUMMARY | ~2020-04-13 | XMS | Encounter Summary ---
Demographics + + + | Address | [address] | | | [place] [address] | + + + | Home Phone [...] + + + | Author | [facility] | + + + | Organization | [facility] | + + + | Address | Unknown | + + + | Phone | Unavailable | + + + Support + + + + + | Name | Relationship | Address | Phone | + + + + + | Tico Burns | ECON | [address] | | | | | [place], [place] | | | | | [address] | | + + + + + Care Team Providers + +------+ + | Care Sports Book Writer Name | Role | Phone | [...] on | Center at [facility] [address] | [employer]PER[employer] [address] | (Bariatric) | | | | [address] | , [address] | | | | | Mailcode: Center | [place], [place] | | | | | for [facility] and | [address] | | | | | [facility], [facility] | [phone] | | | | | [place], [place] | | | | | | [address] | | | | | | [phone] | | | +--------+ + + + [...]
--- OUTSIDE RECORDS SUMMARY | ~2020-04-13 | XMS | Encounter Summary ---
Demographics + + + | Address | [address] | | | [place] [address] | + + + | Home Phone [...] + | Tico Burns | ECON | [address] | | | | | [place], [place] | | | | | [address] | | + + + + + Care Team Providers + +------+ + | Care Antique Finisher Name | Role | Phone | + +------+ + | Moe Bella MD | PCP | | + +------+ + Encounter Details +--------+ + + + + | Date | Type | Department | Care Team | Description | +--------+ + + + + | 06/21/ | Abstract | Digestive Health | Violetta Byers, | | | 2011 | | Center at [facility] [address] | [address] | | | | | [address] | [facility] [address] | | | | | Mailcode: Center | [place], [place] | | | | | for Health and | [address] | | | | | [facility], [facility] | [phone] | | | | | [place], [place] | | | | | | [address] | | | | | | [phone] | | | +--------+ + + + [...]
--- OUTSIDE RECORDS SUMMARY | ~2020-04-13 | XMS | Encounter Summary ---
Demographics + + + | Address | [address] | | | [place] [address] | + + + | Home Phone [...] | Organization | [facility] | | | and [place] | + + + | Address | Unknown | + + + | Phone | Unavailable | + + + Support + + + + + | Name | Relationship | Address | Phone | + + + + + | Milady Burns | ECON | [address] | | | | | [place], [place] | | | | | [address] | | + + + + + Care Team Providers + +------+ + | Care Histology Assistant Name | Role | Phone | + +------+ + | Myra Karimi MD | PCP | | + +------+ + Encounter Details +--------+ + + + + | Date | Type | Department | Care Team | Description | +--------+ + + + + | 03/06/ | Hospital | [facility] | Brooklynn Lew DO | Diagnosis unknown; | | 2018 - | Encounter | [facility] | [address] | Intracranial | | | | [address] | [place] [address] | hemorrhage (HCC); | | 03/12/ | | [place], [place] | [phone] | Hyperglycemia; | | 2018 | | [address] | | Elevated blood | | | | [phone] | | pressure reading; | | | [...] Service: Hospitalist Author Type: Physician Filed: 03/12/18 1703 Date of Service: 03/12/18741 Status: Signed Wafer Cleaner: Job Miranda MD (Physician) Patient: Matthias Burns [...] and was recommended to be discharged to [facility]. He was st arted on aspirin and [...] Value Units Date/Time Blood Culture Set 1 [[id number]] Collected: 03/09/18 0259 Specimen: Blood from Blood Updated: 03/11/18522 Specimen Description BLOOD SPECIAL REQUESTS LAC CULTURE NO GROWTH 2 DAYS Blood Culture Set 2 [[id number]] Collected: 03/09/18 0249 Specimen: Blood from Blood Updated: 03/11/18522 Specimen Description BLOOD SPECIAL REQUESTS R HAND CULTURE NO GROWTH 2 DAYS Recent Radiology Results X-ray Chest 1 View Result Date: 03/09/2018 No evidence of pneumonia. RADIA Electronically signed by Chauncey Coreas MD on March 09 4:05AM Referring Provider Line: [phone] ID: [id number] Carotid Doppler, Bilateral Result [...] Mar 07 2018 7:45AM Referring Provider Line: [phone] ID: [id number] Mri Brain W Wo And [...] Mar 06 2018 10:30PM Referring Provider Line: [phone] ID: [id number] Echo Cardiac Adult With Bubble [...] Discharge Information: Follow up: Myra Karimi MD [address] [place] [address] s/p CVA, diabetes mellitus, abdominal wall cellulitis [...] MG tablet Commonly known as: FLEXERIL ergocalciferol 29036 units capsule Commonly known as: DRISDOL insulin [...] MG capsule metoprolol 25 MG tablet Disposition: [facility] Bed Condition: Stable Code Status: Prior Discharge [...] | | | 12 | | | 42272 UNITS capsule | | | | | [...] Note by Yahaira Jeffers RN at 03/12/18 848 Author: Yahaira Jeffers RN Service: (none) Author Type: Registered Nurse Filed: 03/12/18 1200 Date of Service: 03/12/181158 Status: Signed Wafer Cleaner: Yahaira Jeffers RN (Registered Nurse) Report called to Natalie padilla RN at at [facility]. Yahaira R P ryor, RN onver alma Transaction, Provider Unknown - 03/12/2018 11:33 AM PDT Case Management by MELISSA Kaba at 03/12/18 1133 Author: MELISSA Kaba Service: (none) Author Type: Hourly Associate Filed: 03/12/18 1134 Date of Service: 03/12/18 1133 Status: Signed Wafer Cleaner: MELISSA Kaba (Hourly Associate) 03/12/18 1100 Discharge Planning Evaluation Admitting Diagnosis CVA Anticipated Disposition Facility Type Inpatient Rehabilitation Inpatient Rehabilitation Facilities Other (comment) ([facility] ) Disposition: [facility] Transportation: Private pay transport. All orders, signed AVS, and prescriptions have been faxed All DC paperwork completed Patient and family in agreement with transfer Medicare important message signed and copy in chart Social Vernell KABA [phone] cell onver alma Transaction, Provider Unknown - 03/12/2018 10:50 AM PDT Case Management by MELISSA Kaba at 03/12/18 1050 Author: MELISSA Kaba Service: (none) Author Type: Hourly Associate Filed: 03/12/18 1052 Date of Service: 03/12/18 1050 Status: Signed Wafer Cleaner: MELISSA Kaba (Hourly Associate) 03/12/18 1000 Discharge Planning Evaluation Admitting Diagnosis CVA Anticipated Disposition Facility Type Inpatient Rehabilitation Inpatient Rehabilitation Facilities Other (comment) ([facility] ) [facility] p/c left msg with Yashira Gaviria, Admissions at [facility] program ph, fax). Faxed over discharge orders. DCP: [facility] Social Vernell KABA [phone] cell onver alma Transaction, Provider Unknown - 03/11/2018 5:17 PM PDT Nurse Progress Note by Vianney Peres RN at 03/11/181716 Author: Vianney Peres RN Service: (none) Author Type: Registered Nurse Filed: 03/11/18 171 Date of Service: 03/11/181716 Status: Signed Wafer Cleaner: Vianney Peres RN (Registered Nurse) Pt reports [...] (none) Author Type: Physical Therapist Filed: 03/11/18 8558 Date of Service: 03/11/18 1530 Status: Signed Wafer Cleaner: Dominga Valdez PT (Physical Therapist) PHYSICAL THERAPY TREATMENT NOTE PT Received On: 03/11/18 Reason for Treatment: Stroke (subacute-chronic L cerebellar infarcts) Requires PT Follow Up: Yes Follow up PT Only?: No Assistance Required: 1 person Recommendations: IRF Equipment Recommended: (defer to IRF) PT Ready for Discharge: Yes Recommendation Comments: Pt planned to discharge tomorrow to [facility] for continued maki abilitation prior [...] Management by Khushboo Walker RN at 03/11/18 9688 Author: Khushboo Walker RN Service: (none) Author Type: Registered Nurse Filed: 03/11/18 1520 Date of Service: 03/11/18 7898 Status: Addendum Wafer Cleaner: Khushboo Walker RN (Registered Nurse) Related Notes: Original Note by Khushboo Walker RN (Registered Nurse) filed at 03/11/18 1 446 Discharge Planning: CM placed call to [facility] Yashira [phone] for f/up re pt admit. 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[employer] Transport scheduled for noon CM spoke to [facility] facility requests updated notes Fax to Yashira Fax onver alma Transaction, Provider Unknown - 03/11/2018 11:45 AM PDT Nurse Progress Note by Vianney Peres RN at 03/11/18 5959 Author: Vianney Peres RN Service: (none) Author Type: Registered Nurse Filed: 03/11/18 1201 Date of Service: 03/11/18 0705 Status: Signed Wafer Cleaner: Vianney Peres RN (Registered Nurse) Redness to panus outlined; pt tolerated well; pt denies any questions or concerns at this t kevan Vianney Peres onver alma Transaction, Provider Unknown - 03/11/2018 11:05 AM PDT Therapy Progress Note by MALIK Armstrong at 03/11/18 110 Author: MALIK Armstrong Service: (none) Author Type: Occupational Therapist Filed: 03/11/18 1954 Date of Service: 03/11/18 110 Status: Signed Wafer Cleaner: MALIK Armstrong (Occupational Therapist) OCCUPATIONAL THERAPY TREATMENT NOTE OT Received On: 03/11/18 Reason for Treatment: Stroke Requires OT Follow Up: Yes Assistance Required: 1 person Roulette Dealer Needed: No Family/Caregiver Present: No Recommendation: Rehab consult ([facility]) Equipment Recommended: Tub transfer bench, Static Balancer, Sock aid Requires OT Follow Up: Yes Recommendation Comments Pt continues to require SBA-min A for ADLs. Per chart review, pt planning to discharge to [facility] for further rehab. Pt may benefit [...] FWW to safety when ambulating to the [facility]. Additional Activities Additional Activities Comments: Pt continues to require SBA-min A for ADLs. Per chart delonte avila, pt planning to discharge to [facility] for further rehab. Pt may benefit [...] 1109 Date of Service: 03/11/181058 Status: Signed Wafer Cleaner: Vianney Peres RN (Registered Nurse) Physician at [...] 03/11/18921 Date of Service: 03/11/18921 Status: Signed Wafer Cleaner: CHRIS Nova (Massage Therapist) 03/11/18920 Massage Therapy Interventions Locations Hands;Shoulder;Neck Massage Therapy Technique Effleurage Response to treatment Decreased muscle tension ulio Michael MD - 03/11/2018 9:12 AM PDT Progress Notes by Julio Viveros MD at 03/11/18911 Author: Julio Viveros MD Service: Hospitalist Author Type: Physician Filed: 03/13/18 1838 Date of Service: 03/11/18911 Status: Signed Wafer Cleaner: Julio Viveros MD (Physician) [facility] Service: Hospitalist Progress Note Hospital Day: LOS: 4 days Briefly, 53-year-old male with extensive past medical history of morbid obesity, type II di abetes mellitus, hyperlipidemia and hypertension who presents to [facility] from [facility] for right-sided headache found to have acute [...] reviewed. Principal Problem: CVA (cerebral vascular accident) ([facility]) Active Problems: BMI 60.0-69.9, adult (HCC) Type 2 diabetes mellitus with hyperglycemia ([facility]) Hypothyroidism Dyslipidemia Benign essential hypertension ASSESSMENT & [...] further clarification of fever and acceptance at [facility]. Insulin-dependent type II diabetes mellitus: -Target [...] 1103 Date of Service: 03/11/18900 Status: Signed Wafer Cleaner: Vianney Peres RN (Registered Nurse) Pt requesting [...] 03/11/1847 Date of Service: 03/11/18740 Status: Signed Wafer Cleaner: Vianney Peres RN (Registered Nurse) Pt resting [...] any questions or concerns at this ti ia Vianney Peres blemo Julio rosado MD - 03/10/2018 7:39 AM PDT Progress Notes by Julio Viveros MD at 03/10/18 7295 Author: Julio Viveros MD Service: Hospitalist Author Type: Physician Filed: 03/10/18 1345 Date of Service: 03/10/1839 Status: Signed Wafer Cleaner: Julio Viveros MD (Physician) [facility] Service: Hospitalist Progress Note Hospital Day: LOS: 3 days Briefly, 53-year-old male with extensive past medical history of morbid obesity, type II di abetes mellitus, hyperlipidemia and hypertension who presents to [facility] from [facility] for right-sided headache found to have acute [...] reviewed. Principal Problem: CVA (cerebral vascular accident) ([facility]) Active Problems: BMI 60.0-69.9, adult (HCC) Type [...] further clarification of fever and acceptance at [facility]. Insulin-dependent type II diabetes mellitus: -Target [...] Service: Hospitalist Author Type: Physician Filed: 03/09/18 6046 Date of Service: 03/09/181008 Status: Addendum Wafer Cleaner: Julio Viveros MD (Physician) Related Notes: Original Note by Julio Viveros MD (Physician) filed at 03/09/18 1101 [facility] Service: Hospitalist Progress Note Hospital Day: LOS: 2 days Briefly, 53-year-old male with extensive past medical history of morbid obesity, type II di abetes mellitus, hyperlipidemia and hypertension who presents to [facility] from [facility] for right-sided headache found to have acute [...] accident) (HCC) Active Problems: BMI 60.0-69.9, adult ([facility]) Type 2 diabetes mellitus with hyperglycemia ([facility]) Hypothyroidism Dyslipidemia Benign essential hypertension ASSESSMENT & [...] -Disposition: The patient prefers to be at [facility] secondary to proximity to home. Kindly see outpatient case manager's note for further details. Fever: -Most likely [...] 03/09/1844 Date of Service: 03/09/18532 Status: Addendum Wafer Cleaner: Melvi Sanderson RN (Registered Nurse) Related Notes: [...] Management by Shannon Montoya RN at 03/08/18 827 Author: Shannon Montoya RN Service: (none) Author Type: Interchange Agent Filed: 03/08/18 1512 Date of Service: 03/08/181505 Status: Signed Wafer Cleaner: Shannon Montoya RN (Interchange Agent) Referral faxed to [facility] per patient request. [phone] (f) [phone] . SUSAN spoke with Yashira who will review referral for placement. onver alma Transaction, Provider Unknown - 03/08/2018 1:39 PM PDT Nurse Progress Note by Yahaira Jeffers RN at 03/08/18 1339 Author: Yahaira Jeffers RN Service: (none) Author Type: Registered Nurse Filed: 03/08/18 1340 Date of Service: 03/08/18 1339 Status: Signed Wafer Cleaner: Yahaira Jeffers RN (Registered Nurse) Per MD [...] Date of Service: 03/08/18 1027 Status: Signed Wafer Cleaner: Wing Joan Humphrey MD (Physician) Patient seen [...] would prefer to [facility] Yohana Humphrey MD 03/08/2018 10:27 AM Admission [...] ([place]) 03/06/2018 442 ms Final Calculated P [place] 03/06/2018 48 degrees Final Calculated R [place] 03/06/2018 -62 degrees Final Calculated T [place] 03/06/2018 62 degrees Final Diagnosis 03/06/2018 Final Value:Normal sinus rhythm Left anterior fascicular block Possible Anterolateral infarct , age undetermined Abnormal ECG No previous ECGs available This ECG contains Unconfirmed Interpretation Statements. See ED Record for Physician Inter pretation. Confirmed by MUSE READ ONLY, -COMPUTER ([id number]), editorial clerk Chicas, Yahaira ([id number]) on 03/07/2018 5:57:49 AM [...] YELLOW Final CLARITY 03/07/2018 CLEAR Final Specific [place], UA 03/07/2018 1.036* 1.002 - 1.030 Final [...] Date of Service: 03/08/18 1011 Status: Signed Wafer Cleaner: Julio Viveros MD (Physician) [facility] Service: Hospitalist Progress Note Hospital Day: LOS: 1 day Briefly, 53-year-old male with extensive past medical history of morbid obesity, type II di abetes mellitus, hyperlipidemia and hypertension who presents to [facility] from [facility] for right-sided headache found to have acute [...] -Disposition: The patient prefers to be at [facility] secondary to proximity to home. Kindly see outpatient case manager's note for further details. Insulin-dependent type II [...] Progress Notes by Marilyn Kate at 03/07/18 7406 Author: Marilyn Kate Service: Specialist Author Type: Filed: 03/07/18 0123 Date of Service: 03/07/188 Status: Signed Wafer Cleaner: Marilyn Kate (Energy Risk Management Analyst) CP visit per pt request. Matthias is [...] Date of Service: 03/07/18 1612 Status: Signed Wafer Cleaner: Julio Viveros MD (Physician) [facility] Service: Hospitalist Progress Note Hospital Day: LOS: 0 days Briefly, 53-year-old male with extensive past medical history of morbid obesity, type II di abetes mellitus, hyperlipidemia and hypertension who presents to [facility] from [facility] for right-sided headache found to have acute [...] Case Management by MELISSA Padilla at 03/07/18 4701 Author: MELISSA Padilla Service: (none) Author Type: Interchange Agent Filed: 03/07/18 1147 Date of Service: 03/07/181136 Status: Signed Wafer Cleaner: MELISSA Padilla (Interchange Agent) 03/07/18 8644 Discharge Planning Evaluation Admitting Diagnosis CVA Readmission No Living Arrangements Spouse/significant other (Milady [phone]) Support Systems Spouse/significant other Type of Residence Private residence House type House-1 story Steps to enter (0 steps) Independent with ADL's Yes Independent with Mobility Yes Mental Status Oriented Prior functional status Patient is indpt in ADLs and IADLs (drives), 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 Denies outpt medical [...] Author: MELISSA Padilla Service: (none) Author Type: Interchange Agent Filed: 03/07/18915 Date of Service: 03/07/18854 Status: Signed Wafer Cleaner: MELISSA Padilla (Interchange Agent) CM attempted to meet with patient for full assessment, however, patient sleeping. CM will return at a later time. MELISSA Padilla onver alma Transaction, Provider Unknown - 03/07/2018 3:27 AM PDT Progress Notes by Fabio Madera RPH at 03/07/18326 Author: Fabio Madera RPH Service: Pharmacy Author Type: Pharmacist Filed: 03/07/187 Date of Service: 03/07/18326 Status: Signed Wafer Cleaner: Fabio Madera RPH (Pharmacist) Note ccl 120.4ml/min meds reviewed pharmacy will follow rdc 0327 Electronically signed by [facility], Provider at 06/18/2019 4:25 AM PDTdocume nted in this encounter Plan of Treatment [...] | | | Fingerstick | performed at [facility];[address] | | [address] | | | [address];[place] | | | | | | [address] | | | | + + + [...] | | | Fingerstick | performed at [facility];[address] | | LAB | | | | [address];[place], [place] | | | | | | [address] | | | | + + + [...] | | | Basophils | performed at [facility], [address] | [address] | LAB | | | | [address], | | | | | | [place] [address] | | | | + + + [...] | | | | | | at [facility], [address] | | | | | | [address], | | | | | | [place] [address] | | | | + + + [...] | | | Fingerstick | performed at [facility];[address] | | LAB | | | | [address];[place], [place] | | | | | | [address] | | | | + + + [...] | | | Fingerstick | performed at [facility];[address] | | LAB | | | | [address];[place] | | | | | | [address] | | | | + + + [...] | | | Fingerstick | performed at [facility];[address] | | LAB | | | | [address];[place] | | | | | | [address] | | | | + + + [...] | | | Fingerstick | performed at [facility];[address] | | LAB | | | | [address];[place] | | | | | | [address] | | | | + + + [...] | | | Fingerstick | performed at [facility];[address] | | LAB | | | | [address];[place], [place] | | | | | | [address] | | | | + + + [...] | | | Basophils | performed at [facility], [address] | [address] | LAB | | | | [address], | | | | | | [place] [address] | | | | + + + [...] | | | | | performed at [facility], [address] | | | | | | [address], | | | | | | [place] [address] | | | | + + + [...] | | | | | | at [facility], [address] | | | | | | [address], | | | | | | [place] [address] | | | | + + + [...] | | | Fingerstick | performed at [facility];[address] | | LAB | | | [address];[place], [place] | | | | | | [address] | | | | + + + [...] | | | Fingerstick | performed at [facility];[address] | | LAB | | | [address];[place], [place] | | | | | | [address] | | | | + + + [...] | | | Fingerstick | performed at [facility];[address] | | LAB | | | | [address];[place] | | | | | | [address] | | | | + + + [...] | | | Fingerstick | performed at [facility];[address] | | LAB | | | | [address];[place] | | | | | | [address] | | | | + + + [...] | | | Fingerstick | performed at [facility];[address] | | LAB | | | | [address];[place] | | | | | | [address] | | | | + + + [...] | | | Fingerstick | performed at [facility];[address] | | LAB | | | | [address];[place] | | | | | | [address] | | | | + + + [...] | | | Fingerstick | performed at [facility];[address] | | LAB | | | | [address];[place], [place] | | | | | | [address] | | | | + + + [...] | | | Fingerstick | performed at [facility];[address] | | LAB | | | | [address];[place], [place] | | | | | | [address] | | | | + + + [...] | | | Fingerstick | performed at [facility];[address] | | LAB | | | [address];[place], [place] | | | | | | [address] | | | | + + + [...] | | | Fingerstick | performed at [facility];[address] | | LAB | | | | [address];[place] | | | | | | [address] | | | | + + + [...] | | | Fingerstick | performed at [facility];[address] | | LAB | | | | [address];[place] | | | | | | [address] | | | | + + + [...] | | | Fingerstick | performed at [facility];[address] | | LAB | | | | [address];[place] | | | | | | [address] | | | | + + + [...] | | | Fingerstick | performed at [facility];[address] | | LAB | | | | [address];[place], [place] | | | | | | [address] | | | | + + + [...] | | | | | | at [facility];[address] [place] [address] | | | | | | [facility];[place] [address] | | | | + + + [...] | | | Basophils | performed at [facility], [address] | [address] | LAB | | | | [address], | | | | | | [place] [address] | | | | + + + [...] EXTERNAL | | | | performed at [facility], [address] | | LAB | | | | [address], | | | | | | [place] [address] | | | | + + + [...] EXTERNAL | | | | performed at [facility], [address] | | LAB | | | | [address], | | | | | | [place] [address] | | | | + + + [...] | | | | | | at [facility], [address] | | | | | | [address], | | | | | | [place] [address] | | | | + + + [...] | | | Fingerstick | performed at [facility];[address] | | LAB | | | | [address];[place], [place] | | | | | | [address] | | | | + + + [...] | | | Fingerstick | performed at [facility];[address] | | LAB | | | | [address];[place] | | | | | | [address] | | | | + + + [...] | | | Fingerstick | performed at [facility];[address] | | LAB | | | | [address];[place], [place] | | | | | | [address] | | | | + + + [...] | | | Fingerstick | performed at [facility];[address] | | LAB | | | | [address];[place] | | | | | | [address] | | | | + + + [...] | | | Fingerstick | performed at [facility];[address] | | LAB | | | | [address];[place] | | | | | | [address] | | | | + + + [...] | | | Fingerstick | performed at [facility];[address] | | LAB | | | | [address];[place] | | | | | | [address] | | | | + + + [...] | | | Fingerstick | performed at [facility];[address] | | LAB | | | | [address];[place] | | | | | | [address] | | | | + + + [...] | | | Fingerstick | performed at [facility];[address] | | LAB | | | [address];[place], [place] | | | | | | [address] | | | | + + + [...] | | | Fingerstick | performed at [facility];[address] | | LAB | | | [address];[place], [place] | | | | | | [address] | | | | + + + [...] | | | Fingerstick | performed at [facility];[address] | | LAB | | | | [address];[place] | | | | | | [address] | | | | + + + [...] | | | Fingerstick | performed at [facility];[address] | | LAB | | | | [address];[place] | | | | | | [address] | | | | + + + [...] | | | Fingerstick | performed at [facility];[address] | | LAB | | | | [address];[place] | | | | | | [address] | | | | + + + [...] | | | Fingerstick | performed at [facility];[address] | | LAB | | | | [address];[place] | | | | | | [address] | | | | + + + [...] | | | Fingerstick | performed at [facility];[address] | | LAB | | | | [address];[place] | | | | | | [address] | | | | + + + [...] EXTERNAL | | | | performed at [facility] | | LAB | | | | [address];[place] | | | | | | [address] | | | | + + + [...] | | | Fingerstick | performed at [facility];[address] | | LAB | | | | [address];[place], [place] | | | | | | [address] | | | | + + + [...] EXTERNAL | | | | performed at [facility] | | LAB | | | | [address] [address]avia;[place], [place] | | | | | | [address] | | | | + + + [...] | | | | | | at [facility];[address] | | | [address];[place] [address] | | | | + + + [...] | | | | | performed at [facility], [address] | | | | | | Stephanie Saravia, | | | | | | [place] [address] | | | | + + + [...] - 1.030 | EXTERNAL | | | [place], | | | LAB | | | [...] | | | Urine | performed at [facility], [facility] | | LAB | | | | [address], | | | | | | [place] [address] | | | | + + + [...] | | | Fingerstick | performed at [facility];[address] | | LAB | | | | Lynda Saravia;[place] | | | | | | [address] | | | | + + + [...] 4:05AM Referring Provider Line: | | | [phone] ID: [id number] | | + + + [...] 2018 4:05AM Referring Provider Line: | | [phone] ID: [id number] | |COMPARISON: None. | | [...] 09 2018 4:05AM Referring Provider Francisca e: [phone] ID: [id number] | + + Culture, Blood [...] EXTERNAL | | | | performed at [facility];888 | mmol/L | LAB | | | | Lynda [facility];[place] | | | | | | [address] | | | | + + + [...] NEGATIVE Testing | | | performed at [facility];[address] [place] [address];[place] [address] | | + + + + +---------+ [...] | | | Fingerstick | performed at [facility];[address] | | LAB | | | | [address];[place], [place] | | | | | | [address] | | | | + + + [...] | | | Fingerstick | performed at [facility];[address] | | LAB | | | | Lynda [address];[place], [place] | | | | | | [address] | | | | + + + [...] | | | Fingerstick | performed at [facility];[address] | | LAB | | | | Lynda Olivas;[place], [place] | | | | | | [address] | | | | + + + [...] | | | Fingerstick | performed at [facility];[address] | | LAB | | | | Lynda Saravia;[place] | | | | | | [address] | | | | + + + [...] | | | Fingerstick | performed at [facility];[address] | | LAB | | | | Lynda [address];[place], [place] | | | | | | [address] | | | | + + + [...] | | | Fingerstick | performed at [facility];[address] | | LAB | | | | [address];[place] | | | | | | [address] | | | | + + + [...] | | | Fingerstick | performed at [facility];[address] | | LAB | | | | [address];[place], [place] | | | | | | [address] | | | | + + + [...] | | | Fingerstick | performed at [facility];[address] | | LAB | | | | [address];[place] | | | | | | [address] | | | | + + + [...] | | | Fingerstick | performed at [facility];[address] | | LAB | | | | [address];[place] | | | | | | [address] | | | | + + + [...] | | | Fingerstick | performed at [facility];[address] | | LAB | | | | [address];[place], [place] | | | | | | [address] | | | | + + + [...] | | | Fingerstick | performed at [facility];[address] | | LAB | | | | Lynda [address];[place] | | | | | | [address] | | | | + + + [...] | | | Fingerstick | performed at [facility];[address] | | LAB | | | | Lynda [address];[place], [place] | | | | | | [address] | | | | + + + [...] | | | Basophils | performed at [facility], [address] | [address] | LAB | | | | Stephanie Saravia, | | | | | | [place] [address] | | | | + + + [...] EXTERNAL | | | | performed at [facility], [address] | | LAB | | | | Stephanie Saravia, | | | | | | [place] [address] | | | | + + + [...] | EXTERNAL | | | A1c | [place] Diabetes | | LAB | | | [...] | | | | | performed at [facility], [address] | | | | | | Stephanie Saravia, | | | | | | [place] [address] | | | | + + + [...] | | | | | | at [facility], [address] | | | | | [facility] | | | | | | [place] [address] | | | | + + + [...] | | | Fingerstick | performed at [facility];[address] | | LAB | | | | Lynda [address];[place] | | | | | | [address] | | | | + + + [...] | | | Fingerstick | performed at [facility];[address] | | LAB | | | | [address];[place], [place] | | | | | | [address] | | | | + + + [...] | | | Fingerstick | performed at [facility];[address] | | LAB | | | | Lynda Sar[address];[place] | | | | | | [address] | | | | + + + [...] | | | Fingerstick | performed at [facility];[address] | | LAB | | | | Lynda [address]avia;[place] | | | | | | [address] | | | | + + + [...] | | | Fingerstick | performed at [facility];[address] | | LAB | | | | Lynda [address]avia;[place] | | | | | | [address] | | | | + + + [...] | | | Fingerstick | performed at [facility];[address] | | LAB | | | | Lyn[address];[place], [place] | | | | | | [address] | | | | + + + [...] | | | Fingerstick | performed at [facility];[address] | | LAB | | | | [address];[place], [place] | | | | | | [address] | | | | + + + [...] | | | Fingerstick | performed at [facility];[address] | | LAB | | | | [address];[place], [place] | | | | | | [address] | | | | + + + [...] | | | Fingerstick | performed at [facility];[address] | | LAB | | | | Lynda [address];[place] | | | | | | [address] | | | | + + + [...] | | | Fingerstick | performed at [facility];[address] | | LAB | | | | Lynda Saravia;[place] | | | | | | [address] | | | | + + + [...] | | | Fingerstick | performed at [facility];[address] | | LAB | | | | [address];[place] | | | | | | [address] | | | | + + + [...] | | | Fingerstick | performed at [facility];[address] | | LAB | | | | Lynda Saravia;[place] | | | | | | [address] | | | | + + + [...] | | | Fingerstick | performed at [facility];[address] | | LAB | | | | [address];[place], [place] | | | | | | [address] | | | | + + + [...] | | | Fingerstick | performed at [facility];[address] | | LAB | | | | Lynda [address];[place] | | | | | | [address] | | | | + + + [...] | | | 0.43 m/s TV Dec Pettis: 2.48 m/s2 TV Dec Time: 211.42 ms TV E | | | Jeff: 0.52 m/s TV E/A Ratio: 1.20 House Player: GD | | | Authenticated by: Sav Trotter MD, FACC, FACP, FASNC Report | | | Date/Time: 03-07-2018 12:47:18 | | + + + + + | Procedure Note | + + | Josh Quinteros Conversion - 06/18/2019 7:33 AM PDT Patient Name: Percy BRUNS of | | : 1965 Performing Physician: [...] cmSV(Teich): 52.40 mlLVCI Dopp: | | 1.31 l/azvm8TGJZ Dopp: 3.76 l/minHR: 72.73 BPMLVOT maxP.53 mmHgLVOT [...] 17.01 cmTV A Jeff: 0.43 m/sTV Dec Pettis: 2.48 | | m/s2TV Dec Time: 211.42 msTV E Jeff: 0.52 m/sTV E/A Ratio: 1.20 House Player: | | GDAuthenticated by: Sav Trotter MD, [...] A Jeff: 0.43 m/s | |TV Dec Pettis: 2.48 m/s2 | |TV Dec Time: 211.42 ms | |TV E Jeff: 0.52 m/s | |TV E/A Ratio: 1.20 | | | |House Player: GD | |Authenticated by: Sav Trotter MD, [...] | | | | | | ACUTE IA Testing | | | | | | performed at [facility];[address] | | | | | | [address] [facility];[place], [place] | | | | | | [address] | | | | + + + [...] | | | Fingerstick | performed at [facility];[address] | | LAB | | | | [address];[place], [place] | | | | | | [address] | | | | + + + [...] - 1.030 | EXTERNAL | | | [place], | | | LAB | | | [...] | | | Cells | performed at [facility];[address] | | LAB | | | | [address];[place], [place] | | | | | | [address] | | | | + + + [...] 7:45AM Referring | | | Provider Line: [phone] ID: [id number] | | + + + + + + | Narrative | Performed At | + + + | EXAM: CAROTID DOPPLER ULTRASOUND EXAM DATE: 03/07/2018 06:14 AM. | | | CLINICAL HISTORY: CVA, rule out carotid artery stenosis. | | | COMPARISON: None. TECHNIQUE: Real-time sonographic vascular | | | imaging was performed by the strategic partnership representative through the carotid arterial | | | system with a linear transducer utilizing color-flow, Doppler flow and | | | spectral analysis. Multiple new accounts banking representative static images were saved | | [...] imaging was performed by the | | strategic partnership representative through the carotid arterial system with a linear transducer utilizing | | color-flow, Doppler flow and spectral analysis. Multiple new accounts banking representative static images | | were saved [...] Mar 07 2018 7:45AM Referring Provider Line: [phone] ID: [id number] | |ICA Distal: PSV 36 [...] Mar 07 2018 7:45AM Referring Provider Line: [phone] ID: [id number] | + + POC Glucose (03/07/2018 4:59 AM PDT) + + + + + + | Component | Value | Ref Range | Performed | Pathologist | | | | | At | Signature | + + + + + + | Glucose, | 354 (H)Comment: Testing | 65 - 99 mg/dL | EXTERNAL | | | Fingerstick | performed at [facility];[address] | | LAB | | | | [address];[place], [place] | | | | | | [address] | | | | + + + [...] | | | Fingerstick | performed at [facility];[address] | | LAB | | | | [address];[place], [place] | | | | | | [address] | | | | + + + [...] | | | | | | ACUTE IA Testing | | | | | | performed at [facility];[address] | | | | | | [facility];[place], [place] | | | | | | [address] | | | | + + + [...] | | | Basophils | performed at [facility], [address] | [address]/u[address] | LAB | | | | Stephanie [place], | | | | | | [place] [address] | | | | + + + [...] | | | | | [place] [address] | | | | + + + [...] EXTERNAL | | | | performed at [facility], [address] | | LAB | | | | Stephanie [address]avia, | | | | | | [place] [address] | | | | + + + [...] | EXTERNAL | | | A1c | [place] Diabetes | | LAB | | | [...] | | | | | performed at [facility], [address] | | | | | | [facility], | | | | | | [place] [address] | | | | + + + [...] [address], | | | | | | [place], [place] [address] | | | | + + + [...] [address], | | | | | | [place] [address] | | | | + + + [...] | | | Fingerstick | performed at [facility];8 | | LAB | | | | Lynda [place];[place] | | | | | | [address] | | | | + + + [...] 10:30PM Referring Provider | | | Line: [phone] ID: [id number] | | + + + [...] patent. The P1 segment of the left WARD SERVICE SUPERVISOR is hypoplastic due to | | | anatomy of the left WARD SERVICE SUPERVISOR. This is a normal variant. Posterior | [...] patent. The P1 segment of the left WARD SERVICE SUPERVISOR is | | hypoplastic due to anatomy of the left WARD SERVICE SUPERVISOR. This is a normal variant. Posterior | [...] Mar 06 2018 10:30PM Referring Provider Line: [phone] | | ID: [id number] | | | [...] |patent. The P1 segment of the left WARD SERVICE SUPERVISOR is hypoplastic due to anatomy of the left WARD SERVICE SUPERVISOR. This is a normal variant. Posterior circulation [...] 06 2018 10:30PM Referring Provider Kat ne: [phone] ID: [id number] | + + HISTORICAL LAB [...] | | | | | | ACUTE IA Testing | | | | | | performed at [facility];[address] | | | | | | [address];[place], [place] | | | | | | [address] | | | | + + + [...] | | | Fingerstick | performed at [facility];[address] | | LAB | | | | Lynda Saravia;[place] | | | | | | [address] | | | | + + + [...] | | | | | ONLY, -COMPUTER (555), | | | | | | editorial clerk Yahaira Chicas | | | | | | (18) on 03/07/2018 5:57:49 | | | | | | AM | | | | + + + + + + + + | Specimen | + + | | + + + + + | Narrative | Performed At | + + + | Historically converted procedure from [employer] [facility] Epic environment | EXTERNAL LAB | + [...]
--- OUTSIDE RECORDS SUMMARY | ~2020-04-13 | XMS | Encounter Summary ---
Demographics + + + | Address | [address] | | | [place] [address] | + + + | Home Phone | | + + + | Preferred Language | Unknown | + + + | Marital Status | | + + + | Hinduism Affiliation | 1013 | + + + | Race | Unknown | + + + | Ethnic Group | Unknown | + + + Author + + + | Author | [facility] | | | and [place] | + + + | Organization | [facility] | | | and [place] | + + + | Address | Unknown | + + + | Phone | Unavailable | + + + Support + + + + + | Name | Relationship | Address | Phone | + + + + + | Milady Burns | ECON | [address] | | | | | [place] | | | | | [address] | | + + + + + Care Team Providers + +------+ + | Care Embedded Systems Software Developer Name | Role | Phone | + +------+ + | Moe Bella MD | PCP | | + +------+ + Encounter Details +--------+ + + + + | Date | Type | Department | Care Team | Description | +--------+ + + + + | 09/14/ | Hospital | [facility] | Jose Mirza | S/P cervical spinal | | 2016 | Encounter | MED [address] XRAY [address] | fusion; Left arm | | | | [place] | [address] | weakness; Cervical | | | | [place] [address] | [place] [address] | spondylosis with | | | | [phone] | [phone] | radiculopathy; | | | | | [...] | | | 12 | | | [id number] UNITS capsule | | | | | [...] Postop. COMPARISON: Multiple priors. FINDINGS: Visualized | [facility] | | skull base and facial structures demonstrate no acute findings. The | [facility] | | prevertebral soft tissues are [...] + | [address] | [address] | [place], [place] | [phone] | | [facility] | | [address] | | | - IMAGING | | [...]
--- OUTSIDE RECORDS SUMMARY | ~2020-04-13 | XMS | Encounter Summary ---
Demographics + + + | Address | [address] | | | [place] [address] | + + + | Home Phone | | + + + | Preferred Language | Unknown | + + + | Marital Status | | + + + | Taoist Affiliation | 1013 | + + + | Race | Unknown | + + + | Ethnic Group | Unknown | + + + Author + + + | Author | [facility] | | | and [place] | + + + | Organization | [facility] | | | and [place] | + + + | Address | Unknown | + + + | Phone | Unavailable | + + + Support + + + + + | Name | Relationship | Address | Phone | + + + + + | Milady Burns | ECON | [address] | | | | | [place] | | | | | [address] | | + + + + + Care Team Providers + +------+ + | Care Land Surveyor Assistant Name | Role | Phone | + +------+ + | Moe Bella MD | PCP | | + +------+ + Encounter Details +--------+ + + + + | Date | Type | Department | Care Team | Description | +--------+ + + + + | 04/04/ | Hospital | [facility] | Chauncey Lee MD | S/P cervical spinal | | 2016 | Encounter | MED CTR XRAY [address] | [address] | fusion | | | | [place] | [place] [address] | | | | | [place] [address] | [phone] | | | | | [phone] | | | +--------+ + + + [...] | | | 12 | | | [id number] UNITS capsule | | | | | [...] [address] | [place] | [phone] | | [facility] | | [address] | | | - IMAGING | | | | + + + + + documented in this encounter Visit Diagnoses + + | Diagnosis | + + | S/P cervical spinal fusion Arthrodesis status | + + documented in this encounter"
--- OUTSIDE RECORDS SUMMARY | ~2020-04-13 | XMS | Encounter Summary ---
Demographics + + + | Address | [address] | | | [place] [address] | + + + | Home Phone | | + + + | Preferred Language | Unknown | + + + | Marital Status | | + + + | Religion Affiliation | 1013 | + + + | Race | Unknown | + + + | Ethnic Group | Unknown | + + + Author + + + | Author | [facility] | | | and [place] | + + + | Organization | [facility] | | | and [place] | + + + | Address | Unknown | + + + | Phone | Unavailable | + + + Support + + + + + | Name | Relationship | Address | Phone | + + + + + | Milady Burns | ECON | [address] | | | | | [place] | | | | | [address] | | + + + + + Care Team Providers + +------+ + | Care Senior Safety Support Manager Name | Role | Phone | + +------+ + | Moe Bella MD | PCP | | + +------+ + Reason for Referral Evaluate & Treat (Routine) +--------+ + + + + + | Status | Reason | Specialty | Diagnoses / | Referred By | Referred To | | | | | Procedures | Contact | Contact | +--------+ + + + + + | Closed | Specialty | Anesthesiolog | Diagnoses | Chauncey Lee | [facility] | | | Services | y | Cervical | [address] | Anesthesia | | | Required | | spondylosis | [address] | [address] | | | | | with | [facility], | [place], | | | | | radiculopath | [place] [address] | [place] | | | | | y | Phone: | [phone] | | | | | Degenerative | [phone] | Phone: | | | | | disc | Fax: | [phone] | | | | | disease, | [phone] | Fax: | | | | | cervical | | [phone] | | | | | Foraminal | [...] | | | | | | | ([facility]) | | | | | | | Sleep apnea, | | | | | | | obstructive | | | +--------+ + + + + + Evaluate & Treat (Routine) +--------+ + + + + + | Status | Reason | Specialty | Diagnoses / | Referred By | Referred To | | | | | Procedures | Contact | Contact | +--------+ + + + + + | Closed | Specialty | Otolaryngolog | Diagnoses | Chauncey Lee | Harry Lechuga | | | Services | y | Cervical | [address] | MD [address] | | | Required | | spondylosis | [address] | [address] | | | | | with | [facility], | [address] | | | | | radiculopath | [place] [address] | [place], | | | | | y | Phone: | [place] [address] | | | | | Degenerative | [phone] | Phone: | | | | | disc | Fax: | [phone] | | | | | disease, | [phone] | Fax: | | | | | cervical | | [phone] | | | | | Foraminal | [...] | | | | | | | ([facility]) | | | | | | | Sleep apnea, | | | | | | | obstructive | | | +--------+ + + + + + Reason for Visit + + + | Reason | Comments | + + + | Back Pain | Severe disc herniation | + + + Evaluate & Treat (Urgent) +--------+--------+ + + + + | Status | Reason | Specialty | Diagnoses / | Referred By | Referred To | | | | | Procedures | Contact | Contact | +--------+--------+ + + + + | Closed | | Neurosurgery | Diagnoses | Jaci Wright David | | | | | Cervical | Jaci Hernandez MD [address] | | | | | disc | [address] | | | | | herniation | [address] | [place], [place] | | | | | Procedures | [place] | [address] | | | | | [place] OFFICE | [place] | Phone: | | | | | CONSULTATION | [address] | [phone] | | | | | NEW/ESTAB | Phone: | Fax: | | | | | PATIENT 60 | [phone] | [phone] | | | | | MIN | Fax: | | | | | | | [phone] | | +--------+--------+ + + + + Encounter Details +--------+---------+ + + + | Date | Type | Department | Care Team | Description | +--------+---------+ + + + | 04/04/ | Office | [facility] | Chauncey Lee MD | Cervical spondylosis | | 2016 | Visit | NEUROSURGERY [address] | [address] | with radiculopathy | | | | [address] | [place] [address] | (Primary Dx); | | | | [place] | [phone] | Degenerative disc | | | | [address] | | disease, cervical; | | | | [phone] | | Foraminal stenosis | | | | | | of cervical region; | | | | | | Left arm weakness; | | | | | | Morbid obesity, | | | | | | unspecified obesity | | | | | | type ([facility]); Sleep | | | | | | apnea, obstructive | +--------+---------+ + + + Social History [...] + + + | Blood Pressure | 144/84 | 04/04/2016 1:00 PM | | | | | PDT | | + + + + + | Pulse | 67 | 04/04/2016 1:00 PM | | | | | PDT | | + + + + + | Temperature | - | - | | + + + + + | Respiratory Rate | 18 | 04/04/2016 1:00 PM | | | | | PDT | | + + + + + | Oxygen Saturation | - | - | | + + + + + | Inhaled Oxygen | - | - | | | Concentration | | | | + + + + + | Weight | 188.7 kg (416 lb) | 04/04/2016 1:00 PM | | | | | PDT | | + + + + + | Height | 175.3 cm (5' 9") | 04/04/2016 1:00 PM | | | | | PDT | | + + + + + | Body Mass Index | 61.43 | 04/04/2016 1:00 PM | | | | | PDT | | + + + + + documented in this encounter Patient Instructions Patient Instructions Chauncey Lee MD - 04/04/2016 1:50 PM PDTWe discussed the option for an Anterior Cervical Discectomy and Fusion (ACDF). You can research this procedure more by going to: http://[email or web address].com/eduin Click the Treatment Options link on the left column. Then, look for Anterior Cervical Discectomy and Fusion (ACDF). documented in this encounter Progress Notes Chauncey Lee MD - 04/04/2016 1:22 PM PDTFormatting of this note might be different from t he original. Chauncey Lee MD [address] [facility], [address] [place], [place] [address] FAX: NEUROSURGERY HISTORY AND PHYSICAL EXAMINATION CHIEF COMPLAINT: Chief Complaint Patient presents with Back Pain Severe disc herniation HISTORY OF PRESENT ILLNESS: The patient is a 51 y.o. male with the complaint of arm weakne ss and neck and arm pain symptoms that began 3 months ago. The patient describes no event bu t the sudden onset of severe left arm and shoulder pain and profound weakness of his left de ltoid and arm. The symptoms have been unchanged [...] patient is not currently taking opioids. Th diesi measures have failed to help in any way. 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 ergocalciferol (ERGOCALCIFEROL) 16384 UNITS capsule Take 50,000 Units by mouth Once a w [place]. FLUoxetine (PROZAC) 20 mg capsule Take 20 mg by mouth Daily. Glucose Blood (TOMAS BREEZE 2 TEST) DISK Use as directed insulin glargine (LANTUS) 100 units/mL injection Inejct 60 units at bedtime insulin glulisine (APIDRA) 100 units/mL injection Inject 1 unit per 2 carbs, plus corre ction as directed insulin lispro (HUMALOG) 100 units/mL injection (vial) Inject under the skin 3 times d aily (before meals). levothyroxine (SYNTHROID) 50 mcg tablet Take 50 mcg by mouth Daily. levothyroxine (SYNTHROID, LEVOTHROID) 200 mcg tablet Take 200 mcg by mouth every mornin g (before breakfast). losartan-hydrochlorothiazide (HYZAAR) 100-25 MG per tablet Take 100-25 mg by mouth Arya y. metFORMIN (GLUCOPHAGE) 500 mg tablet Take 4 tablets by mouth daily with evening meal (P atient taking differently: Take 500 mg by mouth 2 times daily (with breakfast & dinner).) metoprolol (TOPROL XL) 200 MG 24 hr [...] no rheumatoid arthritis. PHYSICAL EXAMINATION: Blood pressure 144/84, pulse 67, resp. rate 18, height 1.753 m (5' 9"), weight 188.696 kg ( 416 lb). Body mass index is 61.4 kg/(m^2). GENERAL: Gerard Burns [...] has no apparent deficits with short or snf memory. CRANIAL NERVES: II: Acuity is intact. [...] Triceps 5 5 Wrist Flexion 5 4 Rn Camp Strength 5 4 Hip Flexion 5 5 [...] Name Primary? 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 Lechuga, Sr. The patient would like to be considered for surgery as discussed and would like us to seek authorization and clearance for the operation. ELECTRONICALLY SIGNED BY: Chauncey Lee MD, 04/04/2016 13:51 documented in this encou nter Plan of Treatment + + +--------+ + [...] | | | | | | type ([facility]) Sleep | | | | | | apnea, obstructive | | + + +--------+ + + | Ambulatory referral | Outpatient | Routin | Cervical | Ordered: 04/04/2016 | | to Anesthesiology | Referral | e | spondylosis with | | | | | | radiculopathy | | | [...] | | | | | | type ([facility]) Sleep | | | | | | apnea, obstructive | | + + +--------+ + + documented as of this encounter Visit Diagnoses + + | Diagnosis | + + | Cervical spondylosis with radiculopathy - Primary Cervical spondylosis with | | myelopathy | + + | Degenerative disc disease, cervical Degeneration of cervical intervertebral disc | + + | Foraminal stenosis of cervical region Spinal stenosis in cervical region | + + | Left arm weakness Other musculoskeletal symptoms referable to limbs | + + | Morbid obesity, unspecified obesity type (HCC) | + + | Sleep apnea, obstructive Obstructive sleep apnea (adult) (pediatric) | + + documented in this encounter
--- OUTSIDE RECORDS SUMMARY | ~2020-04-13 | XMS | Encounter Summary ---
Demographics + + + | Address | [address] | | | [place] [address] | + + + | Home Phone [...] + | Tico Burns | ECON | [address] | | | | | [place], [place] | | | | | [address] | | + + + + + Care Team Providers + +------+ + | Care Raftsman Name | Role | Phone | + +------+ + | Moe Bella MD | PCP | | + +------+ + Encounter Details +--------+ + + + + | Date | Type | Department | Care Team | Description | +--------+ + + + + | 03/14/ | Abstract | [facility] | Jesus Perez, | | | 2012 | | [place] at [facility] [address] | [address] | | | | | [address] | [address] | | | | | Mailcode: Center | [place], [place] | | | | | [facility] and | [address] | | | | | [facility] [address] | [phone] | | | | | [place], [place] | | | | | | [address] | | | | | | [phone] | | | +--------+ + + + [...]
--- OUTSIDE RECORDS SUMMARY | ~2020-04-13 | XMS | Encounter Summary ---
Demographics + + + | Address | [address] | | | [place] [address] | + + + | Home Phone [...] + + | Author | [facility] | + + + | Organization | [facility] | + + + | Address | Unknown | + + + | Phone | Unavailable | + + + Support + + + + + | Name | Relationship | Address | Phone | + + + + + | Tico Burns | ECON | [address] | | | | | [place], [place] | | | | | [address] | | + + + + + Care Team Providers + +------+ + | Care Jr. Java Developer Name | Role | Phone | [...] | | | | (HCC) Type | [place] | [address] | | | | | II or | [address] | Mailcode: | | | | | unspecified | [place], | [facility] | | | | | type | [place] [address] | Health and | | | | | diabetes | Phone: | Healing, | | | | | mellitus | [phone] | [address] | | | | | without | Fax: | [place], [place] | | | | | mention of | [phone] | [address] | | | | | complication | | Phone: | | | | | , not stated | | [phone] | | | | | as | | Fax: | | | | | uncontrolled | | [phone] | +--------+--------+ + + + + Encounter Details +--------+---------+ + + + | Date | Type | Department | Care Team | Description | +--------+---------+ + + + | 12/26/ | Office | Dig[facility]ive Health | Jesus Perez, | Morbid obesity (HCC) | | 2012 | Visit | [place] at [facility] [address] | [address] | (Primary Dx); BMI | | | | [address] | [address] | 70 and over, adult | | | | Mailcode: Center | [place], [place] | ([facility]); DM (diabetes | | | | for Health and | [address] | mellitus) ([facility]); | | | | [place] [address] | [phone] | Hypertension; | | | | [place], [place] | | Hyperlipidemia | | | | [address] | | | | | | [phone] | | | +--------+---------+ + + + [...] MD - 12/26/2012 11:18 AM PSTPATIENT SURGERY [facility] General Surgery Office Toll-free: ext [phone] [...] the surgery. Please see the list below, [facility] has a list of products that [...] sleeve only, if taking an ac id bulb grader, you may continue on same medication. PRE-OP [...] please call the General Surgery Office at [phone] for [facility] k-in-time. PARKING Parking for patients and visitors is available in the [facility] Parking structure located across from the emergency department. Patient parking is available on level 1 and 3. [facility] red parking is available on the top level. CHECKING IN FOR SURGERY For Hospital Admission (in-patient) you will check in on the day of surgery at the Admittin g Department located on the 9th floor of [facility] TRANSPORTATION You will require transportation home on the day of discharge. Pain medications and physica l activity restrictions may limit your ability to drive safely. CANCELLING YOUR PROCEDURE Please notify the general surgery office at [phone] as soon as possible should you nee [...] prior to your surgery. PRODUCTS CONTAINING ASPIRIN [place], Anacin, Anexsia with Codeine, Andynos, Aspirin, Aspirin suppositories, Ascrip tin, Aspergum, Axotal, B-A-C, Baby Aspirin, Bekah, BC Powder, Bexophene, Buffaprin, Bufferin , Buffinol, Cama-Arthritis Strength, Congespirin, [place], Coricidin, Damason, Darvon, Drchristian, Terra-Gesic, Digel, Dolprin #3 Tablets, Donatab, Doxaphene, Duragesic, Easprin, Ecotrin, Emag rin Forte, Emiprin, Emprazil, Equagesic, Equazine M, Excedrin, Fiogesic, Fiorgen PH, Fiorice t, Fiorinal, 4-Way Cold Tablet Gemnisyn, Indocin, Liquprin, Lortab ASA, Magnaprin, Marnal, Meprobamate, Midol, Momentum, N orgesic, [place], Orphengesic, Pabalate, P-A-C, Percodan, Presalin, Robaxasil, Roxiprin, Sabino eto, Salocol SK-65 Compound, Sine-Aid, Sine-Off,, [place], Supac, [place] Compound, Trigesic, Tolectin , Traiminicin, Vanquish, ZORprin, Zomax PRODUCTS CONTAINING IBUPROFEN Advil, Aleve, Haltran, Medipren, Midol, Motrin, Naproxyn, Nuprin, Rufen OTHER PRODUCTS WHICH MAY PROMOTE BLEEDING Vitamin E, Gingko Biloba, Marine Fatty Acids, [place]-3 Fish Oil Supplements documented in this encounter [...] BMI 70 and over, adult ([facility]) Body Mass Index 70 and over, adult | + + | DM (diabetes mellitus) ([facility]) Type II or unspecified type diabetes mellitus without | | mention of complication, not stated as uncontrolled | + + | Hypertension Unspecified essential hypertension | + + | Hyperlipidemia Other and unspecified hyperlipidemia | + + documented in this encounter
--- OUTSIDE RECORDS SUMMARY | ~2020-04-13 | XMS | Encounter Summary ---
Demographics + + + | Address | [address] | | | [place] [address] | + + + | Home Phone [...] | Organization | [facility] | | | and [place] | + + + | Address | Unknown | + + + | Phone | Unavailable | + + + Support + + + + + | Name | Relationship | Address | Phone | + + + + + | Milady Burns | ECON | [address] | | | | | [place], [place] | | | | | [address] | | + + + + + Care Team Providers + +------+ + | Care Choir Member Name | Role | Phone | + [...] | | [address] | [place] [address] | initial encounter | | | | [place] | [phone] | (HCC) (Primary Dx); | | | | [address] | | S/P cervical spinal | | | | [phone] | | fusion | +--------+---------+ + + [...] in this encounter Progress Notes Mari Hammond, Side Trimmer - 03/16/2017 9:23 AM PDTFormatting of this note might b e different from the original. Chauncey Lee MD [address] [place] [address], [address] [place], [place] [id number] FAX: NEUROSURGERY FOLLOW-UP CHIEF COMPLAINT: Chief Complaint [...] tablet Take 81 mg by mouth Daily. StarmountET LANCETS MISC Use as directed calcium citrate-vitamin D3 (CITRACAL PETITES/VITAMIN D) 200-250 mg-unit tablet Take by mouth. Cyanocobalamin (VITAMIN B12 PO) Take 50,000 Units by mouth every 7 days. cyclobenzaprine (FLEXERIL) 10 mg tablet Take 1 tablet by mouth every 8 hours as needed for Muscle spasms. 90 tablet 3 ergocalciferol (ERGOCALCIFEROL) 30755 UNITS capsule Take 50,000 Units by mouth Once a w [place]. FLUoxetine (PROZAC) 20 mg capsule Take 20 mg by mouth Daily. gabapentin (NEURONTIN) 300 mg capsule Take by mouth. Glucose Blood (GradeStack BREEZE 2 TEST) DISK Use as directed [...] Lee MD, 03/16/2017 9:34 documented in this encselect specialty hospitaler Plan of Treatment Not on filedocumented as [...]
--- OUTSIDE RECORDS SUMMARY | ~2020-04-13 | XMS | Encounter Summary ---
Demographics + + + | Address | [address] [facility] | | | [place] [address] | + + + | Home Phone | | + + + | Preferred Language | Unknown | + + + | Marital Status | | + + + | Buddhism Affiliation | 1013 | + + + [...] [facility] | | | and [place] | + + + | Address | Unknown | + + + | Phone | Unavailable | + + + Support + + + + + | Name | Relationship | Address | Phone | + + + + + | Milady Burns | ECON | [address] | | | | | [place] | | | | | [address] | | + + + + + Care Team Providers + +------+ + | Care Grain Buyer Name | Role | Phone | + +------+ + | Moe Bella MD | PCP | | + +------+ + Encounter Details +--------+ + + + + | Date | Type | Department | Care Team | Description | +--------+ + + + + | 05/10/ | Hospital | [facility] | Chauncey Lee MD | Cervical spondylosis | | 2016 | Encounter | MED CTR XRAY [address] | with radiculopathy; | | | | [place] | [facility] [place] [address] | Morbid obesity, | | | | [place] [address] | [phone] | unspecified obesity | | | | [phone] | | type (HCC); | | | [...] | | | 12 | | | 75202 UNITS capsule | | | | | [...] [address] | [place] | [phone] | | [facility] | | [address] | | | - IMAGING | | [...]
--- OUTSIDE RECORDS SUMMARY | ~2020-04-13 | XMS | Encounter Summary ---
Demographics + + + | Address | [address] | | | [place] [address] | + + + | Home Phone | | + + + | Preferred Language | Unknown | + + + | Marital Status | | + + + | Latter-Day Affiliation | CHR | + + + | Race | White | + + + | Ethnic Group | Not or | + + + Author + + + | Author | [facility] | + + + | Organization | [facility] | + + + | Address | Unknown | + + + | Phone | Unavailable | + + + Support + + + + + | Name | Relationship | Address | Phone | + + + + + | Tico Burns | ECON | [address] | | | | | [place], [place] | | | | | [address] | | + + + + + Care Team Providers + +------+ + | Care Rate Supervisor Name | Role | Phone | [...] | | | | (HCC) Type | [place] | [address] | | | | | II or | [address] | Mailcode: | | | | | unspecified | [place], | [facility] | | | | | type | [place] [address] | Health and | | | | | diabetes | Phone: | Healing, | | | | | mellitus | [phone] | [address] | | | | | without | Fax: | [place], [place] | | | | | mention of | [phone] | [address] | | | | | complication | | Phone: | | | | | , not stated | | [phone] | | | | | as | | Fax: | | | | | uncontrolled | | [phone] | +--------+--------+ + + + + Encounter Details +--------+---------+ + + + | Date | Type | Department | Care Team | Description | +--------+---------+ + + + | 12/26/ | Office | Dig[facility]ive Health | Jesus Perez, | Morbid obesity (HCC) | | 2012 | Visit | [place] at [facility] [address] | [address] | (Primary Dx); BMI | | | | [address] | [address] | 70 and over, adult | | | | Mailcode: Center | [place], [place] | ([facility]); DM (diabetes | | | | for Health and | [address] | mellitus) ([facility]); | | | | [place] [address] | [phone] | Hypertension; | | | | [place], [place] | | Hyperlipidemia | | | | [address] | | | | | | [phone] | | | +--------+---------+ + + + [...] MD - 12/26/2012 11:18 AM PSTPATIENT SURGERY [facility] General Surgery Office Toll-free: ext [phone] [...] the surgery. Please see the list below, [facility] has a list of products that [...] sleeve only, if taking an ac id wire inserter, you may continue on same medication. PRE-OP [...] please call the General Surgery Office at [phone] for [facility] k-in-time. PARKING Parking for patients and visitors is available in the [facility] Parking structure located across from the emergency department. Patient parking is available on level 1 and 3. [facility] red parking is available on the top level. CHECKING IN FOR SURGERY For Hospital Admission (in-patient) you will check in on the day of surgery at the Admittin g Department located on the 9th floor of [facility] TRANSPORTATION You will require transportation home on the day of discharge. Pain medications and physica l activity restrictions may limit your ability to drive safely. CANCELLING YOUR PROCEDURE Please notify the general surgery office at [phone] as soon as possible should you nee [...] prior to your surgery. PRODUCTS CONTAINING ASPIRIN Leydi-Ash[place], Anacin, Anexsia with Codeine, Andynos, Aspirin, Aspirin suppositories, Ascrip tin, Aspergum, Axotal, B-A-C, Baby Aspirin, Bekah, BC Powder, Bexophene, Buffaprin, Bufferin , Buffinol, Cama-Arthritis Strength, Congespirin, [place], Coricidin, Damason, Darvon, Drchristian, Terra-Gesic, Digel, Dolprin #3 Tablets, Donatab, Doxaphene, Duragesic, Easprin, Ecotrin, Emag rin Forte, Emiprin, Emprazil, Equagesic, Equazine M, Excedrin, Fiogesic, Fiorgen PH, Fiorice t, Fiorinal, 4-Way Cold Tablet Gemnisyn, Indocin, Liquprin, Lortab ASA, Magnaprin, Marnal, Meprobamate, Midol, Momentum, N orgesic, [place], Orphengesic, Pabalate, P-A-C, Percodan, Presalin, Robaxasil, Roxiprin, Sabino eto, Salocol SK-65 Compound, Sine-Aid, Sine-Off,, [place], Supac, Talwin Compound, Trigesic, Tolectin , Traiminicin, Vanquish, ZORprin, Zomax PRODUCTS CONTAINING IBUPROFEN Advil, Aleve, Haltran, Medipren, Midol, Motrin, Naproxyn, Nuprin, Rufen OTHER PRODUCTS WHICH MAY PROMOTE BLEEDING Vitamin E, Gingko Biloba, Marine Fatty Acids, [place]-3 Fish Oil Supplements documented in this encounter [...] + | BMI 70 and over, adult ([facility]) Body Mass Index 70 and over, adult | + + | DM (diabetes mellitus) ([facility]) Type II or unspecified type diabetes mellitus without | | mention of complication, not stated as uncontrolled | + + | Hypertension Unspecified essential hypertension | + + | Hyperlipidemia Other and unspecified hyperlipidemia | + + documented in this encounter
--- OUTSIDE RECORDS SUMMARY | ~2020-04-13 | XMS | Encounter Summary ---
Demographics + + + | Address | [address] | | | [place] [address] | + + + | Home Phone | | + + + | Preferred Language | Unknown | + + + | Marital Status | | + + + | Catholic Affiliation | 1013 | + + + | Race | Unknown | + + + | Ethnic Group | Unknown | + + + Author + + + | Author | [facility] | | | and [place] | + + + | Organization | [facility] | | | and [place] | + + + | Address | Unknown | + + + | Phone | Unavailable | + + + Support + + + + + | Name | Relationship | Address | Phone | + + + + + | Milady Burns | ECON | [address] | | | | | [place] | | | | | [address] | | + + + + + Care Team Providers + +------+ + | Care Card Placer Name | Role | Phone | + [...] | | [address] | [place] [address] | | | | | [place], [place] | [phone] | | | | | [address] | | | | | | [phone] | | | +--------+ + + + [...]
--- OUTSIDE RECORDS SUMMARY | ~2020-04-13 | XMS | Encounter Summary ---
Demographics + + + | Address | [address] | | | [place] [address] | + + + | Home Phone [...] + | Tico Burns | ECON | [address] | | | | | [place], [place] | | | | | [address] | | + + + + + Care Team Providers + +------+ + | Care Wildland Firefighter Name | Role | Phone | + [...] | | Center at [facility] [address] | RN CLINICAL RESEARCH [address] | (check in post | | | | [address] | , [address] | discharge) | | | | Mailcode: Center | [place], [place] | | | | | [facility] and | [address] | | | | | [facility] 2 | [phone] | | | | | [place], [place] | | | | | | [address] | | | | | | [phone] | | | +--------+ + + + [...]
--- OUTSIDE RECORDS SUMMARY | ~2020-04-13 | XMS | Encounter Summary ---
Demographics + + + | Address | [address] | | | [place] [address] | + + + | Home Phone [...] | Author | [facility] | | | and [place] | + + + | Organization | [facility] | | | and [place] | + + + | Address | Unknown | + + + | Phone | Unavailable | + + + Support + + + + + | Name | Relationship | Address | Phone | + + + + + | Milady Burns | ECON | [address] | | | | | [place], [place] | | | | | [address] | | + + + + + Care Team Providers + +------+ + | Care Press Writer Name | Role | Phone | [...] | | | | | [address] | | | | | | [place], [place] | | | | | | [address] | | | | | | [phone] | | | +--------+ + + + [...]
--- OUTSIDE RECORDS SUMMARY | ~2020-04-13 | XMS | Encounter Summary ---
Demographics + + + | Address | [address] | | | [place] [address] | + + + | Home Phone | | + + + | Preferred Language | Unknown | + + + | Marital Status | | + + + | Sabianist Affiliation | 1013 | + + + | Race | Unknown | + + + | Ethnic Group | Unknown | + + + Author + + + | Author | [facility] | | | and [place] | + + + | Organization | [facility] | | | and [place] | + + + | Address | Unknown | + + + | Phone | Unavailable | + + + Support + + + + + | Name | Relationship | Address | Phone | + + + + + | Milady Burns | ECON | [address] | | | | | [place] | | | | | [address] | | + + + + + Care Team Providers + +------+ + | Care Business Liaison Officer Name | Role | Phone | + +------+ + | Moe eBlla MD | PCP | | + +------+ [...] | | [address] | [place] [address] | | | | | [place] | [phone] | | | | | [address] | | | | | | [phone] | | | +--------+ + + + [...]
--- OUTSIDE RECORDS SUMMARY | ~2020-04-13 | XMS | Encounter Summary ---
Demographics + + + | Address | [address] | | | [place] [address] | + + + | Home Phone [...] + + + | Author | [facility] | + + + | Organization | [facility] | + + + | Address | Unknown | + + + | Phone | Unavailable | + + + Support + + + + + | Name | Relationship | Address | Phone | + + + + + | Tico Burns | ECON | [address] | | | | | [place], [place] | | | | | [address] | | + + + + + Care Team Providers + +------+ + | Care Gis Manager Name | Role | Phone | [...] [address] | | | | | ([facility]) | [address] | [address] | | | | | Panniculitis | Claudette Wright | [place] | | | | | , | [place], [place] | [place] | | | | | unspecified | [address] | [address] | | | | | site | Phone: | Phone: | | | | | Procedures | [phone] | [phone] | | | | | REQUEST TO | Fax: | Fax: | | | | | SURGERY | | | | | | | [employer]ARE[employer] NET DEVELOPER | | | | | | | [place] EXC SKIN | | | | | [...] | | | | (HCC) Type | [place] | [address] | | | | | II or | [address] | Mailcode: | | | | | unspecified | [place], | [facility] | | | | | type | [place] [address] | Health and | | | | | diabetes | Phone: | Healing, | | | | | mellitus | [phone] | [address] | | | | | without | Fax: | [place], [place] | | | | | mention of | [phone] | [address] | | | | | complication | | Phone: | | | | | , not stated | | [phone] | | | | | as | | Fax: | | | | | uncontrolled | | [phone] | +--------+--------+ + + + + Encounter Details +--------+---------+ + + + | Date | Type | Department | Care Team | Description | +--------+---------+ + + + | 11/21/ | Office | Dig[facility]ive Health | Jesus Perez, | Morbid obesity (HCC) | | 2013 | Visit | [place] [facility] [address] | [address] | (Primary Dx); | | | | [address] | [address] | [place] | | | | Mailcode: Center | [place], [place] | | | | | [facility] and | [address] | | | | | [facility] 2 | [phone] | | | | | [place], [place] | | | | | | [address] | | | | | | [phone] | | | +--------+---------+ + + + [...] AM PSTPREOP INSTRUCTIONS [place] SURGERY INFORMATION [facility] General Surgery Office Toll-free: ext [...] please call the General Surgery Office at [phone] for [id number]. PARKING Parking for patients and visitors is available in the [facility] structure located across from the emergency department. Patient parking is available on level 1 and 3. Mete red parking is available on the top level. CHECKING IN FOR SURGERY For Hospital Admission (in-patient) you will check in on the day of surgery at the Admittin g Department located on the 9th floor of [facility] TRANSPORTATION You will require transportation home on the day of discharge. Pain medications and physica l activity restrictions may limit your ability to drive safely. CANCELLING YOUR PROCEDURE Please notify the general surgery office at [phone] as soon as possible should you nee [...] prior to your surgery. PRODUCTS CONTAINING ASPIRIN [place], Anacin, Anexsia with Codeine, Andynos, Aspirin, Aspirin suppositories, Ascrip tin, Aspergum, Axotal, B-A-C, Baby Aspirin, Bekah, BC Powder, Bexophene, Buffaprin, Bufferin , Buffinol, Cama-Arthritis Strength, Congespirin, Tarpley, Coricidin, Damason, Darvon, Dristan, Terra-Gesic, Digel, Dolprin #3 Tablets, Donatab, Doxaphene, Duragesic, Easprin, Ecotrin, Emag rin Forte, Emiprin, Emprazil, Equagesic, Equazine M, Excedrin, Fiogesic, Fiorgen PH, Fiorice t, Fiorinal, 4-Way Cold Tablet Gemnisyn, Indocin, Liquprin, Lortab ASA, Magnaprin, Marnal, Meprobamate, Midol, Momentum, N orgesic, Bancroft, Orphengesic, Pabalate, P-A-C, Percodan, Presalin, Robaxasil, Roxiprin, Sabino eto, Salocol SK-65 Compound, Sine-Aid, Sine-Off,, [place], Supac, Talwin Compound, Trigesic, Tolectin , Traiminicin, Vanquish, ZORprin, Zomax PRODUCTS CONTAINING IBUPROFEN Advil, Aleve, Haltran, Medipren, Midol, Motrin, Naproxyn, Nuprin, Rufen OTHER PRODUCTS WHICH MAY PROMOTE BLEEDING Vitamin E, Gingko Biloba, Marine Fatty Acids, Labelle-3 Fish Oil Supplements documented in this encounter [...]
--- OUTSIDE RECORDS SUMMARY | ~2020-04-13 | XMS | Encounter Summary ---
Demographics + + + | Address | [address] | | | [place] [address] | + + + | Home Phone [...] | Author | [facility] | | | and [place] | + + + | Organization | [facility] | | | and [place] | + + + | Address | Unknown | + + + | Phone | Unavailable | + + + Support + + + + + | Name | Relationship | Address | Phone | + + + + + | Milady Burns | ECON | [address] | | | | | [place] | | | | | [address] | | + + + + + Care Team Providers + +------+ + | Care Steamfitter Name | Role | Phone | + [...] | | [address] | [place] [address] | (Primary Dx); Morbid | | | | [place], [place] | [phone] | obesity, | | | | [address] | | unspecified obesity | | | | [phone] | | type (HCC); | | | [...] preoperative clearance . COMPARISON: None available. | [facility] | | FINDINGS: Heart size within [...] ST. | [address] | [place] | [phone] | | [facility] | | [address] | | | - IMAGING | | [...] | | | | CHARI AUGUST MD ([id number]) | | | | | | on [...] + | [facility] | [address] | [place] | [phone] | | [facility] | | [address] | | | - LABORATORY | | [...] mL/min/1.73m2 | [facility] | | | LITHUANIAN | RATE,ESTIMATED | | MEDICAL | | | | mL/min/1.42b6Ciel than | | CENTER - | | [...] ST. | [address] | [place], [place] | [phone] | | [facility] | | [address] | | | - LABORATORY | | [...]
--- OUTSIDE RECORDS SUMMARY | ~2020-04-13 | XMS | Encounter Summary ---
Demographics + + + | Address | [address] | | | [place] [address] | + + + | Home Phone [...] + | Tico Burns | ECON | [address] | | | | | [place], [place] | | | | | [address] | | + + + + + Care Team Providers + +------+ + | Care Horseback Riding Instructor Name | Role | Phone | + +------+ + | Moe Bella MD | PCP | | + +------+ + Encounter Details +--------+ + + + + | Date | Type | Department | Care Team | Description | +--------+ + + + + | 04/25/ | Hand Stonecutter | Dig[facility]ive Health | Violetta Byers, | Bariatric surgery | | 2012 | | [facility] [address] | SITE FOREMAN [address] | status (Primary Dx) | | | | [address] | [address] | | | | | Mailcode: Center | [place], [place] | | | | | for Health and | [address] | | | | | [place] [address] | [phone] | | | | | [place], [place] | | | | | | [address] | | | | | | [phone] | | | +--------+ + + + [...]
--- OUTSIDE RECORDS SUMMARY | ~2020-04-13 | XMS | Encounter Summary ---
Demographics + + + | Address | [address] | | | [place] [address] | + + + | Home Phone [...] + | Tico Burns | ECON | [address] | | | | | [place], [place] | | | | | [address] | | + + + + + Care Team Providers + +------+ + | Care Drug Regulatory Affairs Specialist Name | Role | Phone | + +------+ + | Moe Bella MD | PCP | | + +------+ + Encounter Details +--------+ + + + + | Date | Type | Department | Care Team | Description | +--------+ + + + + | 12/13/ | Abstract | Dig[facility]ive Health | Violetta Byers, | | | 2012 | | Center at [facility] [address] | SPIRITUAL COUNSELOR [address] | | | | | [address] | [facility] [address] | | | | | Mailcode: Center | [place], [place] | | | | | for Health and | [address] | | | | | [facility] 2 | [phone] | | | | | [place], [place] | | | | | | [address] | | | | | | [phone] | | | +--------+ + + + [...]
--- OUTSIDE RECORDS SUMMARY | ~2020-04-13 | XMS | Encounter Summary ---
Demographics + + + | Address | [address] [facility] | | | [place] [address] | + + + | Home Phone | | + + + | Preferred Language | Unknown | + + + | Marital Status | | + + + | Jehovah'S Witness Affiliation | CHR | + + + [...] [place], [place] | | | | | [address] | | + + + + + Care Team Providers + +------+ + | Care Salesperson Floor Coverings Name | Role | Phone | + [...] + + + + | 02/28/ | Manager Customer | Dig[facility]ive Health | Jesus Perez, | | | 2012 | | [facility] [address] | [address] [facility] [facility] | | | | | [address] | [address] | | | | | Mailcode: Center | [place], [place] | | | | | [facility] and | [address] | | | | | [facility] 2 | [phone] | | | | | [place], [place] | | | | | | [address] | | | | | | [phone] | | | +--------+ + + + [...]
--- OUTSIDE RECORDS SUMMARY | ~2020-04-13 | XMS | Encounter Summary ---
Demographics + + + | Address | [address] [facility] | | | [place] [address] | + + + | Home Phone [...] + | Tico Burns | ECON | [address] | | | | | [place], [place] | | | | | [address] | | + + + + + Care Team Providers + +------+ + | Care Clothing Trades Workers Name | Role | Phone | + [...] Visit | [facility] [address] | ACCOUNTING GENERALIST [address] | gastrectomy (Primary | | | | [address] | Dx); [place], | | | | Mailcode: Center | [place], [place] | abdominal; Fatty | | | | for Health and | [address] | tumor | | | | Healing, Building [address] | [phone] | | | | | [place], [place] | | | | | | [address] | | | | | | [phone] | | | +--------+---------+ + + + [...] N/A Years of Education: N/A 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 2. Pannus, large fatty tumor surrounding penis, this has been assessed by Dr. Perez in [facility]. He comes in with Dr. Barr to evaluate and plan for surgical removal. Surgery date of 04 April given, message sent to [place] schedulers to work on auth and contact pt. See PCM for adjusting any other medications. Call if any abd pain, n/v/d or other issues. ER for severe pain. Encouraged pt to F/u at 3 months post op. Pt agrees to POC and will call or send [employer] message if any issues. Start time 1500, end time 1520. I spent a total of 20 minutes face to face with this patie nt. Over 50% of visit was in counseling. ~ 2 Minutes of additional time spent reviewing chart prior to visit and documenting after t his visit. Violetta Byers RN, [facility]- Nurse Practitioner for Bariatric Surgery [facility] | [address] | [place], [place] | [address] | documented in this e ncounter Plan [...]
--- OUTSIDE RECORDS SUMMARY | ~2020-04-13 | XMS | Encounter Summary ---
Demographics + + + | Address | [address] [facility] | | | [place] [address] | + + + | Home Phone [...] + | Tico Burns | ECON | [address] | | | | | [place], [place] | | | | | [address] | | + + + + + Care Team Providers + +------+ + | Care A/C Tech Name | Role | Phone | [...] Description | +--------+---------+ + + + | 04/11/ | Surgery | 6A Intra Op 3181 | Jesus Fenton, | REMOVAL OF FATTY | | 2012 | | [address] | [address] [facility] | TUMOR PANNUS | | | | Rd [facility] | [facility] | specimen x 1 | | | | Hospital Admitting | [place], [place] | | | | | Desk Located on the | [address] | | | | | 9th floor | [phone] | | | | | [place], [place] | | | | | | [address] | | | +--------+---------+ + + + [...] documented in this encounter Discharge Summaries Kalina Brody ACNP - 04/14/2013 1:42 PM PDT INPATIENT [...] consult intraop for placement of a 16 Norwegian ur ethral catheter, which was later removed, [...] SSI. He will follow up with his ems driver. He will have a change in his [...] Phone Center 04/24/2013 10:00 AM Jesus Fenton [facility] Bariatric Surgery [phone] [facility] Your Follow-Up Plan Follow up with JESUS FENTON MD. Schedule an appointment as soon as possible for a vis it on 04/17/2013. (the office will call you to reschedule and see if your needs can be met wi one visit) Contact information [address] [facility] [address] Other Discharge Orders and Instructions Medication Refill Instructions: If you need a refill on any narcotic pain medications, please call the clinic ([phone] ) by 2 pm on for any [...] during the day time hours by calling [facility] surgery office at [phone] - After hours, weekends and holidays, you may call the hospital metal machine operator at [phone] an d have the cardiopulmonary supervisor [place] Team for general surgery paged. Constipation: It [...] in 24 hours. Outstanding labs/studies: CRISTIN HOBSON [facility] 14A [address] [place] [address] Discharging Physician: CRISTIN HOBSON Attending Physician: Dr. [...] Brody ACNP - 04/14/2013 1:29 PM PDT [facility] Inpatient Progress Note Hospital Day #3 Author: [...] closely - to follow up with his Criminalist Technician -home today Prophylaxis: Feeding: regular Activity: Ambulate Sedation/Sleep: na VTE PPY: SCDs, Lovenox Head of bed: >30 degrees Ulcer PPY: famotidine Glycemic Control: euglycemic Infection PPY: IS, all catheter & line dates reviewed DISPO - dc home CRISTIN HOBSON [address] [place] [address] This assessment and plan was formulated both independently and in conjunction with the Surg ical team as well as the attending provider above. Nannette Duran MD - 04/13/2013 10:20 AM PDT [facility] PROGRESS NOTE Hospital Day:2 Author; NANNETTE LUJAN MD Attending Physician: Dr. Fenton Interval Hx: High CBGs for which [facility] was consulted yesterday - further adjustments made [...] , Nannette Lujan MD, 81 mg at 04/13/13818 cloNIDine (aka CATAPRES) tablet 0.1 mg, 0.1 [...] Nannette Lujan MD, 20 mg at 060 07/18 820 glucagon (aka GLUCAGEN) injection 1 mg, 1 [...] Nannette Lujan MD, 2 Units at 04/13/13 08 lactated ringers IV, 100 mL/hr, Intravenous, CONTINUOUS, Nannette Lujan MD, Last Rate: 10 0 mL/hr at 04/12/131999, 100 mL/hr at 04/12/131999 levothyroxine tablet 175 mcg, 175 mcg, Oral, DAILY, Nannette Lujan MD, 175 mcg at 0821 metFORMIN SR (aka GLUCOPHAGE XR) tablet 2,000 mg, 2,000 mg, Oral, DAILY, Piyush morris MD, 2,000 mg at 04/13/13 08 metoprolol tartrate (aka LOPRESSOR) tablet 100 mg, [...] mg, Oral, Q3H PRN, Jose De Jesus Lujan MD, 10 mg at 04/12/132105 polyethylene [...] regimens -Will follow CBGs closely - appreciate [facility] help -Likely home tomorrow NANNETTE LUJAN MD [...] at 04/12/13 1127 Last data filed at 04/12/13834 Gross per [...] BID, Nannette Lujan MD, 20 mg at 06/17 glucagon (aka GLUCAGEN) injection 1 mg, 1 [...] MD PLASTIC AND RECONSTRUCTIVE SURGERY [facility] oranamika, Trina Bautista MD - 04/11/2013 10:24 PM PDTFormatting of this note might be different from the or iginal. Postoperative Check Note: Authort: Trina Hutchinson MD Patient: Gerard Burns Primary Team: [facility] Attending Surgeon: Jesus Fenton MD At: 04/11/2013 10:24 PM PROCEDURE: excision of large fatty tumor SUBJECTIVE: Pain well controlled on MANGLE CATCHER 01/12; denies SOB/CP/N/V; CPAP on OBJECTIVE: Vitals: [...] not displayed. CBC with differential- Recent Labs 06/06/13 1420 WBC 9.5 HB 14.3 HCT 44.7 [...] px: Zac Hutchinson MD Surgery, R1 Pager: [phone] documented in this encounter Plan of Treatment [...] + | SHANON POC | Routin | 04/11/2013 | Morbid obesity | Results for this | | | e | 12:09 PM | (HCC) | procedure are in the | | | | PDT | | results section. | + +--------+ + + + | JOS SHARI VALLADARES POC | Routin | 04/11/2013 | Morbid obesity | Results for this | | | e | 12:09 PM | (HCC) | procedure are in the | | | | PDT | | results section. | + +--------+ + + + | LACTATE (ART) POC | Routin | 04/11/2013 | Morbid obesity | Results for this | | ISTAT | e | 11:21 AM | (HCC) | procedure are in the | | | | PDT | | results section. | + +--------+ + + + | HEMOGLOBIN-COOX POC | Routin | 04/11/2013 | Morbid [...] NICHOLAS | [address] | [place], [place] | | | BRIANNA CONNOLLY OF CARE | [address] | [address] | | | TESTS | | | [...] MARQUAM | [address] | [place], [place] | | | CATHLEEN POINT OF CARE | [address] | [address] | | | TESTS | | | [...] | [facility] | [address] | [place], [place] | | | CATHLEEN POINT OF CARE | [address] | [address] | | | TESTS | | | [...] NICHOLAS | [address] | [place], [place] | | | BRIANNA CONNOLLY OF CARE | [address] | [address] | | | TESTS | | | [...] MARQUAM | [address] | [place], [place] | | | CATHLEEN POINT OF CARE | [address] | [address] | | | TESTS | | | [...] - MARQUAM | [address] | [place], [place] | | | CATHLEEN POINT OF CARE | [address] | [address] | | | TESTS | | | [...] NICHOLAS | [address] | [place], [place] | | | CATHLEEN POINT OF CARE | [address] | [address] | | | TESTS | | | [...] MARQUAM | [address] | [place], [place] | | | CATHLEEN POINT OF CARE | [address] | [address] | | | TESTS | | | [...] - MARQUAM | [address] | [place], [place] | | | CATHLEEN POINT OF CARE | [address] | [address] | | | TESTS | | | [...] NICHOLAS | [address] | [place], [place] | | | BRIANNA CONNOLLY OF CARE | [address] | [address] | | | TESTS | | | [...] MARQUAM | [address] | [place], [place] | | | CATHLEEN POINT OF CARE | [address] | [address] | | | TESTS | | | [...] - YU | [address] | [place], [place] | | | CATHLEEN POINT OF CARE | [address] | [address] | | | TESTS | | | [...] | [facility] | [address] | [place] [address] | | | SERVICES, CORE | [address] | | | + + + + + MAGNESIUM, PLASMA (04/12/2013 4:48 AM PDT) + +---------+ + + + | Component | Value | Ref Range | Performed | Pathologist | | | | | At | Signature | + +---------+ + + + | MAGNESIUM,P | 1.5 (L) | 1.8 - 2.5 mg/dL | [facility] | | | L[facility] | | | [...] | + + + + + | [facility] | [address] | [place] [address] | | | SERVICES, DAVEY | TJ [...] | | | LABORATORY | | | SLOVENIAN | | | SERVICES, | | | [...] the MDRD equation recommended by the | [facility] | | National Kidney Disease Education [...] | [facility] | [address] | [place] [address] | | | DAVEY CRAWFORD | [address] | | | + [...] MARQUAM | [address] | [place], [place] | | | CATHLEEN POINT OF CARE | [address] | [address] | | | TESTS | | | [...] NICHOLAS | [address] | [place], [place] | | | BRIANNA CONNOLLY OF DEREK | [facility] | [address] | | | TESTS | | | | + + + + + CAPILLARY BLOOD GLUCOSE (NO CHG) POC (04/11/2013 6:03 PM PDT) + +---------+ [...] MARQUAM | [address] | [place], [place] | | | BRIANNA CONNOLLY OF CARE | [facility] | [address] | | | TESTS | | | [...] MARQUAM | [address] | [place], [place] | | | BRIANNA CONNOLLY OF [facility] | [address] | [address] | | | TESTS | | | [...] NICHOLAS | [address] | [place], [place] | | | BRIANNA CONNOLLY OF DEREK | [facility] | [address] | | | TESTS | | | | + + + + + SODIUM (ART), POC SOR (04/11/2013 12:09 PM PDT) [...] MARRUFUSAM | [address] | [place], [place] | | | BRIANNA CONNOLLY OF CARE | [facility] | [address] | | | TESTS | | | [...] MARQUAM | [address] | [place], [place] | | | BRIANNA CONNOLLY OF DEREK | [facility] | [address] | | | TESTS | | | [...] NICHOLAS | [address] | [place], [place] | | | CATHLEEN POINT OF CARE | [address] | [address] | | | TESTS | | | | + + + + + SHANON (ART)MIKI (04/11/2013 12:09 PM PDT) + +-------+ [...] MARQUAM | [address] | [place], [place] | | | CATHLEEN POINT OF CARE | [facility] | [address] | | | TESTS | | | [...] - MARQUAM | [address] | [place], [place] | | | BRIANNA CONNOLLY OF DEREK | [facility] | [address] | | | TESTS | | | [...] NICHOLAS | [address] | [place], [place] | | | BRIANNA CONNOLLY OF DEREK | [address] | [address] | | | TESTS | | | [...] YU | [address] | [place], [place] | | | BRIANNA CONNOLLY OF CARE | [facility] | [address] | | | TESTS | | | [...] MARQUAM | [address] | [place], [place] | | | BRIANNA CONNOLLY OF CARE | [address] | [address] | | | TESTS | | | [...] NICHOLAS | [address] | [place], [place] | | | BRIANNA CONNOLLY OF DEREK | [facility] | [address] | | | TESTS | | | [...] YU | [address] | [place], [place] | | | BRIANNA CONNOLLY OF CARE | [facility] | [address] | | | TESTS | | | [...] YU | [address] | [place], [place] | | | BRIANNA CONNOLLY OF DEREK | [facility] | [address] | | | TESTS | | | | + + + + + CHLORIDE (ART)MIKI SOR (04/11/2013 11:21 AM PDT) + +-------+ [...] NICHOLAS | [address] | [place], [place] | | | CATHLEEN POINT OF [facility] | [address] | [address] | | | TESTS | | | [...] MARQUAM | [address] | [place], [place] | | | HILL, POINT OF CARE | [facility] | [address] | | | TESTS | | | [...] MARRUFUSAM | [address] | [place], [place] | | | BRIANNA CONNOLLY OF DEREK | [facility] | [address] | | | TESTS | | | [...] NICHOLAS | [address] | [place], [place] | | | BRIANNA CONNOLLY OF DEREK | [facility] | [address] | | | TESTS | | | [...] MARQUAM | [address] | [place], [place] | | | BRIANNA CONNOLLY OF CARE | [facility] | [address] | | | TESTS | | | [...] MARQUAM | [address] | [place], [place] | | | BRIANNA CONNOLLY OF DEREK | [facility] | [address] | | | TESTS | | | [...] NICHOLAS | [address] | [place], [place] | | | CATHLEEN POINT OF CARE | [address] | [address] | | | TESTS | | | | + + + + + GLUCOSE (ART)MIKI (04/11/2013 10:41 AM PDT) + +---------+ + [...] MARQUAM | [address] | [place], [place] | | | BRIANNA CONNOLLY OF CARE | [facility] | [address] | | | TESTS | | | | + + + + + CHLORIDE (MANUEL)MIKI SOR (04/11/2013 10:41 AM PDT) + +-------+ [...] | [facility] | [address] | [place], [place] | | | BRIANNA CONNOLLY OF CARE | [facility] | [address] | | | TESTS | | | [...] + + + | SON[facility] NICHOLAS | [address] | [place], [place] | | | CATHLEEN POINT OF CARE | [address] | [address] | | | TESTS | | | | + + + + + HEMOGLOBIN (ART)MIKI (04/11/2013 10:41 AM PDT) + + + [...] MARRUFUSAM | [address] | [place], [place] | | | HILL, POINT OF CARE | [facility] | [address] | | | TESTS | | | [...] MARQUAM | [address] | [place], [place] | | | CATHLEEN POINT OF CARE | [address] | [address] | | | TESTS | | | [...] NICHOLAS | [address] | [place], [place] | | | BRIANNA CONNOLLY OF DEREK | [facility] | [address] | | | TESTS | | | [...] Vikki | | | | | | Berry, | | | | | | M.D./Pathologist [...] gross | | | | | | lesions.Director Of Strategy & Mobile | | | | | | sections [...] | + + + + + | [facility] | [address] | [place] [address] | | | PATHOLOGY | [address] | | | + + + + + documented in this encounter Visit Diagnoses + + | Diagnosis | + + | Localized adiposity | + + | Fatty tumor Lipoma of unspecified site | + + documented in this encounter Administered Medications + +--------+ +-------+------+---------+ | Medication Order | MAR | Action | Dose | Rate | Site | | | Action | Date | | | | + +--------+ +-------+------+---------+ | bupivacaine (aka | Given | 04/11/20 | 48 mL | | Abdomen | | MARCAINE,SENSORCAINE) 0.25 % (2.5 | | 13 12:36 | | | | | mg/mL) injection INTRAPROCEDURE | | PM PDT | | | | | PRN, Starting Sun04/11/13 at | | | | | | | 1236, Until Sun04/11/13 at 1244 | | | | | | + +--------+ +-------+------+---------+ +---+---+ | | | +---+---+ documented in this encounter
--- OUTSIDE RECORDS SUMMARY | ~2020-04-13 | XMS | Encounter Summary ---
Demographics + + + | Address | [address] | | | [place] [address] | + + + | Home Phone [...] + | Tico Burns | ECON | [address] | | | | | [place], [place] | | | | | [address] | | + + + + + Care Team Providers + +------+ + | Care Marketing Production Coordinator Name | Role | Phone | [...] 2011 | | Center at [facility] [address] | PETROLEUM GEOLOGIST [address] | | | | | [address] | [facility] 350 | | | | | Mailcode: Center | [place], [place] | | | | | for Health and | [address] | | | | | [facility], [facility] 2 | [phone] | | | | | [place], [place] | | | | | | [address] | | | | | | [phone] | | | +--------+ + + + [...]
--- OUTSIDE RECORDS SUMMARY | ~2020-04-13 | XMS | Encounter Summary ---
Demographics + + + | Address | [address] [facility] | | | [place] [address] | + + + | Home Phone [...] + | Tico Burns | ECON | [address] | | | | | [place], [place] | | | | | [address] | | + + + + + Care Team Providers + +------+ + | Care Yarn Handler Name | Role | Phone | + [...] (Primary Dx); Other | | | | [facility] 4th Floor [address] | specified | | | | [address] | [place], [place] | pre-operative | | | | Mailcode: CH4S | [address] | examination; DM | | | | [facility] | [phone] | (diabetes mellitus) | | | | and Healing, | | (HCC); Hypertension; | | | | Building 1,4th Floor | | Hyperlipidemia; | | | | [place], [place] | | Thyroid cancer | | | | [address] | | ([facility]); | | | | [phone] | | Hypothyroidism; KARELY | | | [...] your procedure. Surgery Check in Locations Admitting [facility] Surgery Check in Time: The Preoperative Medicine [...] it is after office hours, call the [facility] plant attendant or assistant operator at [phone] and ask them to page him or [...] to be coming fatigued. Saw his local research methods instructor within the month, who encourages this procedure for the patient. However, the patient's weight prohibits a nuc stress or cardiac cath proced ure in the [facility]. Per ERIC Rodriguez cardiology-[facility] is not able to accomodate h is [...] and PMHX. Document will be scanned in [employer]. Current Medication List Name Sig ASPIRIN 81 [...] further investigation and manageme nt. A. Acute AZ within 7 days: no B. Unstable angina/Recent AZ (7- 30 days): no C. Decompensated CHF: [...] no Rate of cardiac , non fatal AZ, non fatal cardiac arrest (RCRI) 0 risk factors - 0.4% 1 risk factors - 1%, 2 risk factors - 7%, 3 or >risk factors - 11% (may benefit from perioperative beta blockers) Risk Factor Recommendations: 1-2 risk factors- proceed with planned surgery with HR control or consider noninvasive testing if it will traveler changer Surgery Risk: High Patient-related risk: Estimated ASA class -- 3 ASSESSMENT and RECOMMENDATIONS: Surgical/anesthesia risk assessment: Gerrad Burns is a 47 y.o. male with [...] to this patient's care. FAVIO Romero [facility] [address] [place] [id number] [phone] signed by FAVIO Romero at 12/30/2012 9:24 [...] | [facility] | [address] [facility] | [place] [address] | | | OF CARE TESTS | [...] | | | | | AMITA TAN (1938) | | | | | | on 12/26/2012 10:49:35 PM | | | | + + + + + + + + | Specimen | + + | | + + + + + | Narrative | Performed At | + + + | Please click | [facility] | | on view image for the detailed interpretation from [employer] results. | CARDIOLOGY | + + + + + + + + | Performing | Address | City/State/Zipcode | Phone Number | | Organization | | | | + + + + + | [facility] | [address] | [place], [place] | | | CARDIOLOGY | [address] | [address] | | + + + + + [...] [facility] | [address] | [place] [address] | | | SERVICES, CORE | [address] [...] | + + + + + | [facility] | [address] | [place] [address] | | | SERVICES, | [address] [...] + + | [facility] | [address] | [place] [address] | | | SERVICES, | [address] [...] | | | LABORATORY | | | FILIP[place] | | | SERVICES, | | | [...] | + + + + + | [facility] | [address] | [place] [address] | | | DAVEY CRAWFORD | [address] [...]
--- OUTSIDE RECORDS SUMMARY | ~2020-04-13 | XMS | Encounter Summary ---
Demographics + + + | Address | [address] | | | [place] [address] | + + + | Home Phone [...] + | Tico Burns | ECON | [address] | | | | | [place], [place] | | | | | [address] | | + + + + + Care Team Providers + +------+ + | Care Salvage Supervisor Name | Role | Phone | [...] | | at [address] | [facility] | | | | | [address] | [place] [address] | | | | | [address] | | | | | | [place], [address] [place] [address] | | | | | | [place], [place] | | | | | | [address] | | | | | | [phone] | | | +--------+ + + + [...] | | | | | AMITA TAN ([id number]) | | | | | | on 12/26/2012 10:49:35 PM | | | | + + + + + + + + | Specimen | + + | | + + + + + | Narrative | Performed At | + + + | Please click | [facility] | | on view image for the detailed interpretation from [employer] results. | CARDIOLOGY | + + + + + + + + | Performing | Address | City/State/Zipcode | Phone Number | | Organization | | | | + + + + + | [facility] | [address] | [place], [place] | | | CARDIOLOGY | [address] | [address] | | + + + + + documented in this encounter Visit Diagnoses Not on filedocumented in this encounter
--- OUTSIDE RECORDS SUMMARY | ~2020-04-13 | XMS | Encounter Summary ---
Demographics + + + | Address | [address] [facility] | | | [place] [address] | + + + | Home Phone [...] + | Tico Burns | ECON | [address] | | | | | [place], [place] | | | | | [address] | | + + + + + Care Team Providers + +------+ + | Care Nuclear Reactor Technician Name | Role | Phone | + +------+ + | Moe Bella MD | PCP | | + +------+ + Encounter Details +--------+ + + + + | Date | Type | Department | Care Team | Description | +--------+ + + + + | 04/05/ | Abstract | Digestive Health | Violetta Byers, | | | 2011 | | Center at [facility] [address] | ENERGY CONSERVATION DIRECTOR [address] | | | | | [address] | [facility] 350 | | | | | Mailcode: Center | [place], [place] | | | | | for Health and | [address] | | | | | [facility], [facility] 2 | [phone] | | | | | [place], [place] | | | | | | [address] | | | | | | [phone] | | | +--------+ + + + [...]
--- OUTSIDE RECORDS SUMMARY | ~2020-04-13 | XMS | Encounter Summary ---
Demographics + + + | Address | [address] | | | [place] [address] | + + + | Home Phone | | + + + | Preferred Language | Unknown | + + + | Marital Status | | + + + | Baptist Affiliation | CHR | + + + [...] + + + + + | Tico Bursn | ECON | [address] | | | | | [place], [place] | | | | | [address] | | + + + + + Care Team Providers + +------+ + | Care Oil Field Laborer Name | Role | Phone | [...] on | Center at [facility] [address] | UNISHEAR OPERATOR [address] | (Bariatric) | | | | [address] | , [address] | | | | | Mailcode: Center | [place], [place] | | | | | for [facility] and | [address] | | | | | [facility], [facility] 2 | [phone] | | | | | [place], [place] | | | | | | [address] | | | | | | [phone] | | | +--------+ + + + [...]
--- OUTSIDE RECORDS SUMMARY | ~2020-04-13 | XMS | Encounter Summary ---
Demographics + + + | Address | [address] [facility] | | | [place] [address] | + + + | Home Phone [...] + | Tico Burns | ECON | [address] | | | | | [place], [place] | | | | | [address] | | + + + + + Care Team Providers + +------+ + | Care Editorial Assistant Name | Role | Phone | [...] 2013 | Event | [address] | [address] | | | | | [facility] | [address] | | | | | Hospital Admitting | [place], [place] | | | | | Desk Located on the | [address] | | | | | 9th floor | [phone] | | | | | [place], [place] | | | | | | [address] | Talon Rich MD | | | | | | [address] | | | | | | [facility] | | | | | | [place] [address] | | | | | | [phone] | | | | | | | [...]
--- OUTSIDE RECORDS SUMMARY | ~2020-04-13 | XMS | Encounter Summary ---
Demographics + + + | Address | [address] [facility] | | | [place] [address] | + + + | Home Phone | | + + + | Preferred Language | Unknown | + + + | Marital Status | | + + + | Restorationism Affiliation | CHR | + + + [...] + | Tico Burns | ECON | [address] | | | | | [place], [place] | | | | | [address] | | + + + + + Care Team Providers + +------+ + | Care Rotary Machine Operator Name | Role | Phone [...] | +--------+ + + + + | 04/21/ | Abstract | Digestive Health | Elijahisac Jesus, | Medical Records | | 2016 | | [place] [facility] [address] | [address] [facility] | Review | | | | [address] | [facility] | | | | | Mailcode: [place] | [place], [place] | | | | | [facility] and | [address] | | | | | [facility] 2 | [phone] | | | | | [place], [place] | | | | | | [address] | | | | | | [phone] | | | +--------+ + + + [...]
--- OUTSIDE RECORDS SUMMARY | ~2020-04-13 | XMS | Encounter Summary ---
Demographics + + + | Address | [address] [facility] | | | [place] [address] | + + + | Home Phone [...] + | Tico Burns | ECON | [address] | | | | | [place], [place] | | | | | [address] | | + + + + + Care Team Providers + +------+ + | Care Diamond Setter Name | Role | Phone | + [...] | | | | (HCC) Type | [address] | | | | | II or | [address] | Mailcode: | | | | | unspecified | [place], | [facility] | | | | | type | [place] [address] | Health and | | | | | diabetes | Phone: | Healing, | | | | | mellitus | [phone] | Building 2 | | | | | without | Fax: | [place], [place] | | | | | mention of | [phone] | [address] | | | | | complication | | Phone: | | | | | , not stated | | | | | | | as | | Fax: | | | | | uncontrolled | | [phone] | +--------+--------+ + + + + Encounter Details +--------+---------+ + + + | Date | Type | Department | Care Team | Description | +--------+---------+ + + + | 03/03/ | Office | Digestive Health | Kristan Miranda, | S/P laparoscopic | | 2015 | Visit | Center at [facility] [address] | ACNP [address] | sleeve gastrectomy | | | | [address] | Ave [place], [place] | (Primary Dx) | | | | Mailcode: Center | [address] | | | | | for Health and | [phone] | | | | | [facility] 2 | | | | | | [place], [place] | | | | | | [address] | | | | | | [phone] | | | +--------+---------+ + + + [...] that weight 28 puonds 04/17. .lives in [facility]. Goal is 400 for this year He [...] 4 Tabs by mouth once daily. Ad it technician with evening meal. 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 Start time 1150, end time 1220. I spent a total of 30 minutes face to face with this silvino ent. Over 50% of visit was in counseling. Kristan Goldsmith DNP, ACNP, HAND EDGER Nurse Practitioner for Bariatric Surgery [facility] | [address] | [place], [place] | [address] | documented in this en counter Plan of Treatment Not on filedocumented as of this encounter Visit Diagnoses + + | Diagnosis | + + | S/P laparoscopic sleeve gastrectomy - Primary | + + documented in this encounter
--- OUTSIDE RECORDS SUMMARY | ~2020-04-13 | XMS | Encounter Summary ---
Demographics + + + | Address | [address] [facility] | | | [place] [address] | + + + | Home Phone [...] + | Tico Burns | ECON | [address] | | | | | [place], [place] | | | | | [address] | | + + + + + Care Team Providers + +------+ + | Care Flatcar Whacker Name | Role | Phone | + +------+ + | Moe eBlla MD | PCP | | + +------+ + Encounter Details +--------+ + + + + | Date | Type | Department | Care Team | Description | +--------+ + + + + | 06/21/ | Abstract | Digestive Health | Violetta Byers, | | | 2011 | | Center at [facility] [address] | SEMICONDUCTOR PROCESSING GROUP LEADER [address] | | | | | [address] | [facility] 350 | | | | | Mailcode: Center | [place], [place] | | | | | for Health and | [address] | | | | | [facility], [facility] 2 | [phone] | | | | | [place], [place] | | | | | | [address] | | | | | | [phone] | | | +--------+ + + + [...]
--- OUTSIDE RECORDS SUMMARY | ~2020-04-13 | XMS | Encounter Summary ---
Demographics + + + | Address | [address] [facility] | | | [place] [address] | + + + | Home Phone | | + + + | Preferred Language | Unknown | + + + | Marital Status | | + + + | Nondenominational Affiliation | 1013 | + + + | Race | Unknown | + + + | Ethnic Group | Unknown | + + + Author + + + | Author | [facility] | | | and [place] | + + + | Organization | [facility] | | | and [place] | + + + | Address | Unknown | + + + | Phone | Unavailable | + + + Support + + + + + | Name | Relationship | Address | Phone | + + + + + | Milady Burns | ECON | [address] | | | | | [place] | | | | | [address] | | + + + + + Care Team Providers + +------+ + | Care Supervisor Dials Name | Role | Phone | + [...] | | [address] | [place] [address] | | | | | [place] | [phone] | | | | | [address] | | | | | | [phone] | | | +--------+ + + + [...]
--- OUTSIDE RECORDS SUMMARY | ~2020-04-13 | XMS | Encounter Summary ---
Demographics + + + | Address | [address] [facility] | | | [place] [address] | + + + | Home Phone [...] + | Tico Burns | ECON | [address] | | | | | [place], [place] | | | | | [address] | | + + + + + Care Team Providers + +------+ + | Care New Autos Delivery Driver Name | Role | Phone | [...] | | 2016 | | Center at [facility] [address] | MD [address] [facility] | - General | | | | [address] | [address] | | | | | Mailcode: Center | [place], [place] | | | | | [facility] and | [address] | | | | | [facility] 2 | [phone] | | | | | [place], [place] | | | | | | [address] | | | | | | [phone] | | | +--------+ + + + [...]
--- OUTSIDE RECORDS SUMMARY | ~2020-04-13 | XMS | Encounter Summary ---
Demographics + + + | Address | [address] [facility] | | | [place] [address] | + + + | Home Phone [...] + | Organization | [facility] | | | and [place] | + + + | Address | Unknown | + + + | Phone | Unavailable | + + + Support + + + + + | Name | Relationship | Address | Phone | + + + + + | Milady Burns | ECON | [address] | | | | | [place] | | | | | [address] | | + + + + + Care Team Providers + +------+ + | Care Identification Technician Name | Role | Phone | [...] | | [address] | [place] [address] | | | | | [place], [place] | [phone] | | | | | [address] | | | | | | [phone] | | | +--------+ + + + [...]
--- OUTSIDE RECORDS SUMMARY | ~2020-04-13 | XMS | Encounter Summary ---
Demographics + + + | Address | [address] [facility] | | | [place] [address] | + + + | Home Phone [...] | Organization | [facility] | | | and [place] | + + + | Address | Unknown | + + + | Phone | Unavailable | + + + Support + + + + + | Name | Relationship | Address | Phone | + + + + + | Milady Burns | ECON | [address] | | | | | [place], [place] | | | | | [address] | | + + + + + Care Team Providers + +------+ + | Care Command And Control Officer Name | Role | Phone | [...] | MED CTR EXTERNAL | MD Karsten [address] | | | | | IMAGING [address] | [address] | | | | | [address] [place] | [place] [address] | | | | | [place] [address] | | | | | | [phone] | | | +--------+ + + + [...]
--- OUTSIDE RECORDS SUMMARY | ~2020-04-13 | XMS | Encounter Summary ---
Demographics + + + | Address | [address] [facility] | | | [place] [address] | + + + | Home Phone | | + + + | Preferred Language | Unknown | + + + | Marital Status | | + + + | Restorationist Affiliation | 1013 | + + + | Race | Unknown | + + + | Ethnic Group | Unknown | + + + Author + + + | Author | [facility] | | | and [place] | + + + | Organization | [facility] | | | and [place] | + + + | Address | Unknown | + + + | Phone | Unavailable | + + + Support + + + + + | Name | Relationship | Address | Phone | + + + + + | Milady Burns | ECON | [address] | | | | | [place] | | | | | [address] | | + + + + + Care Team Providers + +------+ + | Care Electric Shipyard Operator Name | Role | Phone | + +------+ + | Moe Bella MD | PCP | | + +------+ + Encounter Details +--------+ + + + + | Date | Type | Department | Care Team | Description | +--------+ + + + + | 05/10/ | Hospital | [facility] | Chauncey Lee MD | Cervical spondylosis | | 2016 | Encounter | MED CTR XRAY [address] | [address] | with radiculopathy; | | | | [place] | [place] [address] | Morbid obesity, | | | | [place] [address] | [phone] | unspecified obesity | | | | [phone] | | type (HCC); | | | [...] | | | 12 | | | [address]24 UNITS capsule | | | | | [...] [address] | [place] | [phone] | | [facility] | | [address] | | | - IMAGING | | [...]
--- OUTSIDE RECORDS SUMMARY | ~2020-04-13 | XMS | Encounter Summary ---
Demographics + + + | Address | [address] [facility] | | | [place] [address] | + + + | Home Phone | | + + + | Preferred Language | Unknown | + + + | Marital Status | | + + + | Judaism Affiliation | 1013 | + + + | Race | Unknown | + + + | Ethnic Group | Unknown | + + + Author + + + | Author | [facility] | | | and [place] | + + + | Organization | [facility] | | | and [place] | + + + | Address | Unknown | + + + | Phone | Unavailable | + + + Support + + + + + | Name | Relationship | Address | Phone | + + + + + | Milady Burns | ECON | [address] | | | | | [place], [place] | | | | | [address] | | + + + + + Care Team Providers + +------+ + | Care Glass Silverer Name | Role | Phone | + +------+ + PCP | Unavailable | + +------+ + Encounter Details +--------+ + + + + | Date | Type | Department | Care Team | Description | +--------+ + + + + | 01/21/ | Hospital | [facility] | Conversion | | | 2011 | Encounter | [facility] [address] | Transaction, | | | | | [address] | Provider Unknown | | | | | [place] | | | | | | [address] | | | | | | [phone] | | | +--------+ + + + [...]
--- OUTSIDE RECORDS SUMMARY | ~2020-04-13 | XMS | Encounter Summary ---
Demographics + + + | Address | [address] [facility] | | | [place] [address] | + + + | Home Phone [...] | Organization | [facility] | | | and [place] | + + + | Address | Unknown | + + + | Phone | Unavailable | + + + Support + + + + + | Name | Relationship | Address | Phone | + + + + + | Milady Burns | ECON | [address] | | | | | [place] | | | | | [address] | | + + + + + Care Team Providers + +------+ + | Care Fuel Agent Name | Role | Phone | [...] | | [address] | [place] [address] | | | | | [place], [place] | [phone] | | | | | [address] | | | | | | [phone] | | | +--------+ + + + [...]
--- OUTSIDE RECORDS SUMMARY | ~2020-04-13 | XMS | Encounter Summary ---
Demographics + + + | Address | [address] [facility] | | | [place] [address] | + + + | Home Phone [...] + | Tico Burns | ECON | [address] | | | | | [place], [place] | | | | | [address] | | + + + + + Care Team Providers + +------+ + | Care Physiology Teacher Name | Role | Phone | + +------+ + | Moe Bella MD | PCP | | + +------+ + Reason for Visit + + + | Reason | Comments | + + + | Pre-operative | PANNICULECTOMY (GEN) on 04/11/2013 by Jesus Perez MD at [facility] | | evaluation | 6A | + + + Encounter Details +--------+---------+ + + + | Date | Type | Department | Care Team | Description | +--------+---------+ + + + | 04/10/ | Office | Preoperative | Sheryl Guerra | Preop examination | | 2012 | Visit | Medicine Clinic at | R, LENS HARDENER [address] | (Primary Dx); Morbid | | | | [facility] 4th Floor [address] [facility] [address] | obesity (HCC); DM | | | | [address] | [place], [place] | (diabetes mellitus) | | | | Mailcode: [facility] | [address] | ([facility]); Hypertension; | | | | [facility] | [phone] | Hyperlipidemia; | | | | and Healing, | | Localized adiposity; | | | | Building 1,4th Floor | | Lipoma of | | | | [place], [place] | | unspecified site; | | | | [address] | | S/P partial | | | | [phone] | | gastrectomy; Sleep | | | [...] fr. 5cc LATEX chau to | Catherine Greenfeild, KARENA | Jerald Yeung RN | | [...] or walk. Surgery Check in Locations Admitting [facility] Surgery Check in Time: The [...] it is after office hours, call the [facility] threshing operator at [phone] and ask them to page him or h er. Preparing For Your Surgery Video -- 7 minutes of instructions! Access the [facility] website [email or web address] --> POPULAR RESOURCES --> Patient [...] Date RATE 69 12/26/2012 ATRIALRATE 69 12/26/2012 [place] 186 12/26/2012 QRS 88 12/26/2012 QT 398 12/26/2012 QTC 426 12/26/2012 PAXIS 35 12/26/2012 RAXIS -54 12/26/2012 TAXIS 26 12/26/2012 EKGDX Value: Normal sinus rhythm Left anterior fascicular block Abnormal ECG "I have pers onally interpreted this report, either alone or with a trainee." Confirmed by VASYL TAN ([id number]) on 12/26/2012 10:49:35 PM 12/26/2012 MEDICAL DECISION MAKIN ACC/ AHA Perioperative Guidelines 1. Need for emergency noncardiac surgery? b. No -> Proceed to next step. 2. Active Cardiac Conditions? These conditions mandate further investigation and manageme nt. A. Acute NV within 7 days: no B. Unstable angina/Recent NV (7- 30 days): no C. Decompensated CHF: [...] no Rate of cardiac , non fatal NV, non fatal cardiac arrest (RCRI) 0 risk factors - 0.4% 1 risk factors - 1%, 2 risk factors - 7%, 3 or >risk factors - 11% (may benefit from perioperative beta blockers) Risk Factor Recommendations: 1-2 risk factors- proceed with planned surgery with HR control or consider noninvasive testing if it will exchange floor manager Surgery Risk: Intermediate Patient-related risk: Estimated ASA [...] to this patient's care. SHERYL GUERRA NP [facility] PREOPERATIVE MEDICINE CLINIC [address] [place] [address] [place] [address] documented in this encounter Plan of Treatment Not on filedocumented as of this encounter Procedures + +--------+ + + + | Procedure Name | Priori | Date/Time | Associated Diagnosis | Comments | | | ty | | | | + +--------+ + + + | AZ COLLECTION VENOUS | Routin | 04/10/2013 | [...] the | | | | PDT | ([facility]) DM (diabetes | results section. | | | | | mellitus) ([facility]) | | | | | | [...] CR, GLU, CA) | | PDT | ([facility]) DM (diabetes | results section. | | | | | mellitus) ([facility]) | | | | | | [...] the | | | | PDT | ([facility]) DM (diabetes | results section. | | | | | mellitus) ([facility]) | | | | | | [...] the | | | | PDT | ([facility]) DM (diabetes | results section. | | | | | mellitus) ([facility]) | | | | | | [...] the | | | | PDT | ([facility]) DM (diabetes | results section. | | | | | mellitus) ([facility]) | | | | | | [...] the | | | | PDT | ([facility]) DM (diabetes | results section. | | | | | mellitus) ([facility]) | | | | | | [...] section. | | | | | mellitus) ([facility]) | | | | | | [...] [facility] | [address] | [place] [address] | | | SERVICES, CORE | PARK [...] [facility] | [address] | [place] [address] | | | SERVICES, | [address] [...] | + + + + + | [facility] | [address] | [place] [address] | | | [place] | TJ [place] [...] | | | LABORATORY | | | [place] | | | SERVICES, | | [...] | + + + + + | [facility] | [address] [facility] | [place] [address] | | | SERVICES, CORE | TJ [...] | + + + + + | [facility], POINT | [address] [facility] | [place] [address] | | | OF CARE TESTS | [...]
--- OUTSIDE RECORDS SUMMARY | ~2020-04-13 | XMS | Encounter Summary ---
Demographics + + + | Address | [address] [facility] | | | [place] [address] | + + + | Home Phone [...] + | Tico Burns | ECON | [address] | | | | | [place], [place] | | | | | [address] | | + + + + + Care Team Providers + +------+ + | Care Delicatessen Slicer Name | Role | Phone | + [...] 2012 | | Center at [facility] [address] | APPLIANCES SAMPLE MAKER [address] | | | | | [address] | [place] [address] | | | | | Mailcode: Center | [place], [place] | | | | | for Health and | [address] | | | | | [place] [address] | [phone] | | | | | [place], [place] | | | | | | [address] | | | | | | [phone] | | | +--------+ + + + [...]
--- OUTSIDE RECORDS SUMMARY | ~2020-04-13 | XMS | Encounter Summary ---
Demographics + + + | Address | [address] [facility] | | | [place] [address] | + + + | Home Phone [...] + | Organization | [facility] | | | and [place] | + + + | Address | Unknown | + + + | Phone | Unavailable | + + + Support + + + + + | Name | Relationship | Address | Phone | + + + + + | Milady Burns | ECON | [address] | | | | | [place], [place] | | | | | [address] | | + + + + + Care Team Providers + +------+ + | Care Couture Dressmaker Name | Role | Phone | + [...] W | | | | | [address] [facility] [address] | [facility] | | | | | [place] | [address] [place] | | | | | [address] | [address] | | | | | [phone] | | | +--------+ + + + [...]
--- OUTSIDE RECORDS SUMMARY | ~2020-04-13 | XMS | Encounter Summary ---
Demographics + + + | Address | [address] [facility] | | | [place] [address] | + + + | Home Phone | | + + + | Preferred Language | Unknown | + + + | Marital Status | | + + + | Lutheran Affiliation | CHR | + + + [...] [place], [place] | | | | | [address] | | + + + + + Care Team Providers + +------+ + | Care Accountant Assistant Name | Role | Phone | [...] | Procedures | Claud[address] Wright | [place], | | | | | CONSULT TO | [place], [place] | [place] | | | | | BARIATRIC | [address] | [address] | | | | | SURGERY | Phone: | Phone: | | | | | | [phone] | [phone] | | | | | | Fax: | Fax: | | | | | | [phone] | [phone] | +--------+--------+ + + + + Reason [...] Laura | | | | | | [place] | [address] | | | | | | [address] | [address] [facility], | | | | | | [place], | [place] | | | | | | [place] [address] | [address] | | | | | | Phone: | Phone: | | | | | | [phone] | [phone] | | | | | | Fax: | Fax: | | | | | | [phone] | [phone] | +--------+--------+ + + + + Encounter Details +--------+---------+ + + + | Date | Type | Department | Care Team | Description | +--------+---------+ + + + | 01/12/ | Office | Plastic and | Mary Ann Winkler, | BMI 60.0-69.9, adult | | 2017 | Visit | Reconstructive | [address] | ([facility]) (Primary Dx); | | | | Surgery at [facility] [address] | [address] | Edema, unspecified | | | | [address] | [place], [place] | type; Sleep apnea, | | | | Mailcode: [facility] | [address] | unspecified type; | | | | [facility] | [phone] | Secondary | | | | and Healing, | | hypertension; | | | | Building | | Ramona infection of | | | | Floor [facility] [place] | | flexural skin | | | | [address] | | | | | | [phone] | | | +--------+---------+ + + + [...] Reese MD PLASTIC AND RECONSTRUCTIVE SURGERY AT [facility] [address] Mail Code: [place] [address] ymon, Mckenna Parry MD - 01/12/2017 2:30 [...] 4 Tabs by mouth once daily. Ad commercial lines account manager with evening meal. Indications: TYPE 2 DIABETES [...] Rash all over arms SH: Lives in [facility] [place] with his and grandson. 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 Den ies tobacco, rare EtOH consumption, denies [...] evidence of venous stasis Labs/Cultures/Pathology: Reviewed in [facility] Imaging/Diagnostic Studies: Reviewed in [facility] ASSESSMENT: Gerard Burns is a 51 [...] wound complications, <7 Dr. Mary Ann Winkler [facility] Support General has seen and examined the patient and agrees with the above plan. Mckenna Trevino MD PLASTIC AND RECONSTRUCTIVE SURGERY AT [facility] [address] Mail Code: [place] [address] documented in this e ncounter [...]
--- OUTSIDE RECORDS SUMMARY | ~2020-04-13 | XMS | Encounter Summary ---
Demographics + + + | Address | [address] [facility] | | | [place] [address] | + + + | Home Phone [...] Author | [facility] | | | and [place] | + + + | Organization | [facility] | | | and [place] | + + + | Address | Unknown | + + + | Phone | Unavailable | + + + Support + + + + + | Name | Relationship | Address | Phone | + + + + + | Milady Burns | ECON | [address] | | | | | [place] | | | | | [address] | | + + + + + Care Team Providers + +------+ + | Care Database Technician Name | Role | Phone | [...] | | [address] | [place] [address] | | | | | [place], [place] | [phone] | | | | | [address] | | | | | | [phone] | Ever Swenson, | | | | | | PA-C [address] | | | | | | [address] [place] | | | | | | [place] [address] | | | | | | [phone] | | | | | | | [...] from the original. Ever Swenson PA-C [address] [facility], [address] [place] [address] FAX: NEUROSURGERY FOLLOW-UP CHIEF COMPLAINT: Chief Complaint [...] Muscle spasms. 90 tablet 3 ergocalciferol (ERGOCALCIFEROL) 80531 UNITS capsule Take 50,000 Units by mouth Once a w [employer] [employer]. FLUoxetine (PROZAC) 20 mg capsule Take 20 mg by mouth Daily. gabapentin (NEURONTIN) 300 mg capsule Take by mouth. Glucose Blood (PrePlay BREEZE 2 TEST) DISK Use as directed [...]
--- OUTSIDE RECORDS SUMMARY | ~2020-04-13 | XMS | Encounter Summary ---
Demographics + + + | Address | [address] [facility] | | | [place] [address] | + + + | Home Phone [...] Organization | [facility] | | | and [place] | + + + | Address | Unknown | + + + | Phone | Unavailable | + + + Support + + + + + | Name | Relationship | Address | Phone | + + + + + | Milady Burns | ECON | [address] | | | | | [place] | | | | | [address] | | + + + + + Care Team Providers + +------+ + | Care Craft Superintendent Name | Role | Phone | + +------+ + | Moe Bella MD | PCP | | + +------+ + Encounter Details +--------+ + + + + | Date | Type | Department | Care Team | Description | +--------+ + + + + | 09/14/ | Hospital | [facility] | Jose Mirza | S/P cervical spinal | | 2016 | Encounter | MED CTR XRAY [address] | [address] | fusion; Left arm | | | | [place] | [address] | weakness; Cervical | | | | [place] [address] | [place] [address] | spondylosis with | | | | [phone] | [phone] | radiculopathy; | | | | | [...] | | | 12 | | | [address]4811 UNITS capsule | | | | | [...] Postop. COMPARISON: Multiple priors. FINDINGS: Visualized | [facility] | | skull base and facial structures demonstrate no acute findings. The | [facility] | | prevertebral soft tissues are [...] + | [address] | [address] | [place], [place] | [phone] | | [facility] | | [address] | | | - IMAGING | | [...]
--- OUTSIDE RECORDS SUMMARY | ~2020-04-13 | XMS | Encounter Summary ---
Demographics + + + | Address | [address] [facility] [address] | | | [place] [address] | + + + | Home Phone [...] + | Tico Burns | ECON | [address] | | | | | [place], [place] | | | | | [address] | | + + + + + Care Team Providers + +------+ + | Care Oiler Bander Name | Role | Phone | + +------+ + | Moe Bella MD | PCP | | + +------+ + Encounter Details +--------+ + + + + | Date | Type | Department | Care Team | Description | +--------+ + + + + | 09/12/ | Abstract | Digestive Health | Jseus Perez, | | | 2012 | | [place] at [facility] [address] | [address] | | | | | [address] | [address] | | | | | Mailcode: Center | [place], [place] | | | | | [facility] and | [address] | | | | | [facility], [place] [address] | [phone] | | | | | [place], [place] | | | | | | [address] | | | | | | [phone] | | | +--------+ + + + [...]
--- OUTSIDE RECORDS SUMMARY | ~2020-04-13 | XMS | Encounter Summary ---
Demographics + + + | Address | [address] [facility] | | | [place] [address] | + + + | Home Phone [...] + | Tico Burns | ECON | [address] | | | | | [place], [place] | | | | | [address] | | + + + + + Care Team Providers + +------+ + | Care Remote Encoding Operations Supervisor Name | Role | Phone | [...] | | Center at [facility] [address] | PICK AND SHOVEL MAN [address] | Recall) | | | | [address] | [facility] 350 | | | | | Mailcode: Center | [place], [place] | | | | | for Health and | [address] | | | | | [facility] 2 | [phone] | | | | | [place], [place] | | | | | | [address] | | | | | | [phone] | | | +--------+ + + + [...] 02/11/2016 3:22 PM PDT Recall Information ID: [id number] Status: New [10] Patient: LUCY BURNS Visit Type: [facility] RETURN [5441] Provider/Resource: VIOLETTA BROWN [[id number]] Department: BAR BARIATRIC SURG [facility] [[id number]] Notification Date: 01/09/2016 Recall Date: 01/09/2016 Expiration Date Letter: Generating Appointment: 02/27/13 Audit [place]: User: Time: Status: Ambar Webster [CHAUMJE] 02/04/2013 11:47 AM New [10] Scheduling Instructions 3 year veronika follow up 9. - 07.08.2016 Appointment Notes 3 year veronika postop - dos 3.6.2012 - open sleeve - deveney schedule 9. - 07.08.2016 Communication History User: NOEL ACEVEDO Date/time: 02/11/16 3:21 PM Comment: requested pcp notes Context: Judi Recall Report Phone number: [phone] Phone Type: Comm. type: Telephone Call type: Outgoing Contact: Lucy Burns Relation to patient: Self User: HEMANTH MOORE Date/time: 01/12/16 2:10 PM Comment: Context: Judi Recall Report Outcome: Left Message Phone number: [phone] Phone Type: Comm. type: Telephone Call type: Outgoing Contact: Lucy Burns Relation to patient: Self User: NOEL ACEVEDO Date/time: 12/09/15 11:24 AM Comment: Context: Judi Recall Report Outcome: Left Message Phone number: [phone] Phone Type: Comm. type: Telephone Call type: Outgoing Contact: Lucy Burns Relation to patient: Self documented in this encount er Plan of Treatment Not on filedocumented as of this encounter Visit Diagnoses Not on filedocumented in this encounter"
--- OUTSIDE RECORDS SUMMARY | ~2020-04-13 | XMS | Encounter Summary ---
Demographics + + + | Address | [address] [facility] | | | [place] [address] | + + + | Home Phone [...] [place], [place] | | | | | [address] | | + + + + + Care Team Providers + +------+ + | Care Voice Over Artist Name | Role | Phone | + [...] New Patient Visit; | | 2020 | [facility] | [facility] for [facility] | Domingo Parry MD [address] | Weakness | | | uled | and Healing [address] | | | | | [address] Mailcode: | [place], [place] | | | | | [facility] | [address] | | | | | [facility], | [phone] | | | | | [facility] | | | | | | Floor [place], [place] | | | | | | [address] | | | | | | [phone] | | | +--------+ + + + [...] for 201- 250, 6 units for 251-300, jn your doctor if > Indications: TYPE 2 DIABETES MELLITUS, Disp: 10 mL, Rfl: 1 LOSARTAN/HYDROCHLOROTHIAZIDE (HYZAAR ORAL), Take by mouth., Disp: , Rfl: metFORMIN SR 500 mg Oral tablet extended release 24 hr, Take 4 Tabs by mouth once daily. Ad electrical manager with evening meal. Indications: TYPE 2 [...] provider located at the distant site of [facility]. [facility] they were located at the originating [...]
--- OUTSIDE RECORDS SUMMARY | ~2020-04-13 | XMS | Encounter Summary ---
Demographics + + + | Address | [address] [facility] | | | [place] [address] | + + + | Home Phone [...] + | Tico Burns | ECON | [address] | | | | | [place], [place] | | | | | [address] | | + + + + + Care Team Providers + +------+ + | Care Stock Clipper Name | Role | Phone | + +------+ + | Moe Belal MD | PCP | | + +------+ [...] | | [address] | [address] [facility] | TUMOR PANNUS | | | | Rd [facility] | [facility] | specimen x 1 | | | | Hospital Admitting | [place], [place] | | | | | Desk Located on the | [address] | | | | | 9th floor | [phone] | | | | | [place], [place] | | | | | | [address] | | | +--------+---------+ + + + [...] consult intraop for placement of a 16 Namibian ur ethral catheter, which was later removed, [...] SSI. He will follow up with his medicare biller. He will have a change in his [...] Phone Center 04/24/2013 10:00 AM Jesus Fenton [facility] Bariatric Surgery [phone] [facility] Your Follow-Up Plan Follow up with JESUS FENTON MD. Schedule an appointment as soon as possible for a vis it on 04/17/2013. (the office will call you to reschedule and see if your needs can be met wi one visit) Contact information [address] [facility] [address] Other Discharge Orders and Instructions Medication Refill Instructions: If you need a refill on any narcotic pain medications, please call the clinic ([phone] ) by 2 pm on for any [...] during the day time hours by calling [facility] surgery office at [phone] - After hours, weekends and holidays, you may call the hospital hair rooting machine operator at [phone] an d have the cotton dispatcher Mitchell Team for general surgery paged. Constipation: It [...] in 24 hours. Outstanding labs/studies: CRISTIN HOBSON [facility] 14A [address] [place] [address] Discharging Physician: CRISTIN HOBSON Attending Physician: Dr. [...] PM PDT [facility] Inpatient Progress Note Hospital Day #3 Author: [...] closely - to follow up with his Outpatient Physical Therapist Assistant -home today Prophylaxis: Feeding: regular Activity: Ambulate Sedation/Sleep: na VTE PPY: SCDs, Lovenox Head of bed: >30 degrees Ulcer PPY: famotidine Glycemic Control: euglycemic Infection PPY: IS, all catheter & line dates reviewed DISPO - dc home CRISTIN HOBSON [address] [place] [address] This assessment and plan was formulated both independently and in conjunction with the Surg ical team as well as the attending provider above. Nannette Duran MD - 04/13/2013 10:20 AM PDT GREEN SURGERY PROGRESS NOTE Hospital Day:2 Author; NANNETTE LUJAN MD Attending Physician: Dr. Fenton Interval Hx: High CBGs for which [facility] was consulted yesterday - further adjustments [...] fatty tumor SUBJECTIVE: Pain well controlled on PINKED EDGE SEWING MACHINE OPERATOR 01/12; denies SOB/CP/N/V; CPAP on OBJECTIVE: [...] px: Zac Hutchinson MD Surgery, R1 Pager: [phone] documented in this encounter Plan of Treatment [...] NICHOLAS | [address] | [place], [place] | | | BRIANNA CONNOLLY OF CARE | [address] | [address] | | | TESTS | | | [...] MARQUAM | [address] | [place], [place] | | | CATHLEEN POINT OF CARE | [address] | [address] | | | TESTS | | | [...] MARQUAM | [address] | [place], [place] | | | CATHLEEN POINT OF CARE | [address] | [address] | | | TESTS | | | [...] NICHOLAS | [address] | [place], [place] | | | BRIANNA CONNOLLY OF CARE | [address] | [address] | | | TESTS | | | [...] MARQUAM | [address] | [place], [place] | | | CATHLEEN POINT OF CARE | [address] | [address] | | | TESTS | | | [...] - MARQUAM | [address] | [place], [place] | | | CATHLEEN POINT OF CARE | [address] | [address] | | | TESTS | | | [...] NICHOLAS | [address] | [place], [place] | | | CATHLEEN POINT OF CARE | [address] | [address] | | | TESTS | | | [...] MARQUAM | [address] | [place], [place] | | | CATHLEEN POINT OF CARE | [address] | [address] | | | TESTS | | | [...] - MARQUAM | [address] | [place], [place] | | | CATHLEEN POINT OF CARE | [address] | [address] | | | TESTS | | | [...] NICHOLAS | [address] | [place], [place] | | | BRIANNA CONNOLLY OF CARE | [address] | [address] | | | TESTS | | | [...] MARQUAM | [address] | [place], [place] | | | CATHLEEN POINT OF CARE | [address] | [address] | | | TESTS | | | [...] - YU | [address] | [place], [place] | | | CATHLEEN POINT OF CARE | [address] | [address] | | | TESTS | | | [...] | + + + + + | [facility] | [address] | [place] [address] | | | SERVICES, CORE | PARK [...] + + + + + | [facility] | [address] | [place] [address] | | | SERVICES, DAVEY | TJ [...] | | | LABORATORY | | | BURKINAN | | | SERVICES, | | | | | | CORE | | + +---------+ + + + | EGFR NON | >60 | >60 mL/min | [facility] | | | -ARITE | | | LABORATORY | | | [...] the MDRD equation recommended by the | [facility] | | National Kidney [...] | + + + + + | [facility] | [address] | [place] [address] | | | DAVEY CRAWFORD | TJ [...] (H) | 60 - 99 mg/dL | [facility] - | | | GLUCOSE, | [...] MARQUAM | [address] | [place], [place] | | | CATHLEEN POINT OF CARE | [address] | [address] | | | TESTS | | | [...] NICHOLAS | [address] | [place], [place] | | | BRIANNA CONNOLLY OF DEREK | [facility] | [address] | | | TESTS | | | [...] MARQUAM | [address] | [place], [place] | | | BRIANNA CONNOLLY OF CARE | [facility] | [address] | | | TESTS | | | [...] (H) | 60 - 99 mg/dL | [facility] - | | | GLUCOSE, | [...] MARQUAM | [address] | [place], [place] | | | BRIANNA CONNOLLY OF [facility] | [address] | [address] | | | TESTS | | | [...] NICHOLAS | [address] | [place], [place] | | | BRIANNA CONNOLLY OF DEREK | [facility] | [address] | | | TESTS | | | [...] MARRUFUSAM | [address] | [place], [place] | | | BRINANA CONNOLLY OF CARE | [facility] | [address] | | | TESTS | | | [...] MARQUAM | [address] | [place], [place] | | | BRIANNA CONNOLLY OF DEREK | [facility] | [address] | | | TESTS | | | [...] NICHOLAS | [address] | [place], [place] | | | CATHLEEN POINT OF CARE | [address] | [address] | | | TESTS | | | [...] MARQUAM | [address] | [place], [place] | | | CATHLEEN POINT OF CARE | [facility] | [address] | | | TESTS | | | [...] - MARQUAM | [address] | [place], [place] | | | BRIANNA CONNOLLY OF DEREK | [facility] | [address] | | | TESTS | | | [...] NICHOLAS | [address] | [place], [place] | | | BRIANNA CONNOLLY OF DEREK | [address] | [address] | | | TESTS | | | [...] YU | [address] | [place], [place] | | | BRIANNA CONNOLLY OF CARE | [facility] | [address] | | | TESTS | | | [...] MARQUAM | [address] | [place], [place] | | | BRIANNA CONNOLLY OF CARE | [address] | [address] | | | TESTS | | | [...] NICHOLAS | [address] | [place], [place] | | | BRIANNA CONNOLLY OF DEREK | [facility] | [address] | | | TESTS | | | [...] YU | [address] | [place], [place] | | | BRIANNA CONNOLLY OF CARE | [facility] | [address] | | | TESTS | | | [...] YU | [address] | [place], [place] | | | BRIANNA CONNOLLY OF DEREK | [facility] | [address] | | | TESTS | | | [...] NICHOLAS | [address] | [place] | | | CATHLEEN POINT OF [facility] | [address] | [address] | | | TESTS | | | [...] MARQUAM | [address] | [place], [place] | | | HILL, POINT OF CARE | [facility] | [address] | | | TESTS | | | [...] MARRUFUSAM | [address] | [place], [place] | | | BRIANNA CONNOLLY OF DEREK | [facility] | [address] | | | TESTS | | | [...] NICHOLAS | [address] | [place], [place] | | | BRIANNA CONONLLY OF DEREK | [facility] | [address] | | | TESTS | | | [...] MARQUAM | [address] | [place], [place] | | | BRIANNA CONNOLLY OF CARE | [facility] | [address] | | | TESTS | | | [...] MARQUAM | [address] | [place], [place] | | | BRIANNA CONNOLLY OF DEREK | [facility] | [address] | | | TESTS | | | [...] NICHOLAS | [address] | [place], [place] | | | CATHLEEN POINT OF CARE | [address] | [address] | | | TESTS | | | [...] MARQUAM | [address] | [place], [place] | | | BRIANNA CONNOLLY OF CARE | [facility] | [address] | | | TESTS | | | [...] - MARQUAM | [address] | [place], [place] | | | BRIANNA CONNOLLY OF CARE | [facility] | [address] | | | TESTS | | | [...] + + + | SONJA NICHOLAS | [address] | [place], [place] | | | CATHLEEN POINT OF CARE | [address] | [address] | | | TESTS | | | [...] MARRUFUSAM | [address] | [place], [place] | | | HILL, POINT OF CARE | [facility] | [address] | | | TESTS | | | [...] MARQUAM | [address] | [place], [place] | | | CATHLEEN POINT OF CARE | [address] | [address] | | | TESTS | | | [...] NICHOLAS | [address] | [place], [place] | | | BRIANNA CONNOLLY OF DEREK | [facility] | [address] | | | TESTS | | | [...] gross | | | | | | lesions.Electricity Trader | | | | | | sections [...] | + + + + + | [facility] | [address] | [place] [address] | | | PATHOLOGY | [address] [...]
--- OUTSIDE RECORDS SUMMARY | ~2020-04-13 | XMS | Encounter Summary ---
Demographics + + + | Address | [address] [facility] | | | [place] [address] | + + + | Home Phone | | + + + | Preferred Language | Unknown | + + + | Marital Status | | + + + | Mosque Affiliation | CHR | + + + | Race | White | + + + | Ethnic Group | Not or | + + + Author + + + | Author | [facility] | + + + | Organization | [facility] | + + + | Address | Unknown | + + + | Phone | Unavailable | + + + Support + + + + + | Name | Relationship | Address | Phone | + + + + + | Tico Burns | ECON | [address] | | | | | [place], [place] | | | | | [address] | | + + + + + Care Team Providers + +------+ + | Care Microbial Specialist Name | Role | Phone | + +------+ + | Moe Bella MD | PCP | | + +------+ + Encounter Details +--------+ + + + + | Date | Type | Department | Care Team | Description | +--------+ + + + + | 10/11/ | Abstract | Digestive Health | Violetta Byers, | | | 2011 | | Center at [facility] [address] | TIRE ASSEMBLER [address] | | | | | [address] | [facility] 350 | | | | | Mailcode: Center | [place], [place] | | | | | for Health and | [address] | | | | | [facility], [facility] 2 | [phone] | | | | | [place], [place] | | | | | | [address] | | | | | | [phone] | | | +--------+ + + + [...]
--- OUTSIDE RECORDS SUMMARY | ~2020-04-13 | XMS | Encounter Summary ---
Demographics + + + | Address | [address] [facility] | | | [place] [address] | + + + | Home Phone [...] + | Tico Burns | ECON | [address] | | | | | [place], [place] | | | | | [address] | | + + + + + Care Team Providers + +------+ + | Care Backup Operator Name | Role | Phone | [...] | | 2012 | | Center at [facility] [address] | DRYWALL BOARDHANGER [address] | | | | | [address] | [place] [address] | | | | | Mailcode: Center | [place], [place] | | | | | for Health and | [address] | | | | | [place] [address] | [phone] | | | | | [place], [place] | | | | | | [address] | | | | | | [phone] | | | +--------+ + + + [...]
--- OUTSIDE RECORDS SUMMARY | ~2020-04-13 | XMS | Encounter Summary ---
Demographics + + + | Address | [address] [facility] | | | [place] [address] | + + + | Home Phone | | + + + | Preferred Language | Unknown | + + + | Marital Status | | + + + | Tenriism Affiliation | 1013 | + + + | Race | Unknown | + + + | Ethnic Group | Unknown | + + + Author + + + | Author | [facility] | | | and [place] | + + + | Organization | [facility] | | | and [place] | + + + | Address | Unknown | + + + | Phone | Unavailable | + + + Support + + + + + | Name | Relationship | Address | Phone | + + + + + | Milady Burns | ECON | [address] | | | | | [place], [place] | | | | | [address] | | + + + + + Care Team Providers + +------+ + | Care Head Of Merchandise Buying Name | Role | Phone | + +------+ + | Moe Bella MD | PCP | | + +------+ + Encounter Details +--------+ + + + + | Date | Type | Department | Care Team | Description | +--------+ + + + + | 05/10/ | Hospital | [facility] | Chauncey Lee MD | | | 2016 | Encounter | [facility] | [address] | | | | | [address] | [place] [address] | | | | | [address] | [phone] | | | | | [address] | | | | | | [phone] | Jeffery Ruiz MD | | | | | | [address] [facility] | | | | | | [place] | | | | | | [address] | | | | | | | [...] | | | 12 | | | [address] UNITS capsule | | | | | [...]
--- OUTSIDE RECORDS SUMMARY | ~2020-04-13 | XMS | Encounter Summary ---
Demographics + + + | Address | [address] [facility] | | | [place] [address] | + + + | Home Phone [...] + | Tico Burns | ECON | [address] | | | | | [place], [place] | | | | | [address] | | + + + + + Care Team Providers + +------+ + | Care Binding Stitcher Name | Role | Phone | + +------+ + | Moe Bella MD | PCP | | + +------+ + Encounter Details +--------+ + + + + | Date | Type | Department | Care Team | Description | +--------+ + + + + | 12/26/ | Abstract | Digestive Health | Violetta Byers, | | | 2012 | | Center at [facility] [address] | LEGAL CONTRACTS SPECIALIST [address] | | | | | [address] | [facility] 350 | | | | | Mailcode: Center | [place], [place] | | | | | for Health and | [address] | | | | | [facility], [facility] 2 | [phone] | | | | | [place], [place] | | | | | | [address] | | | | | | [phone] | | | +--------+ + + + [...]
--- OUTSIDE RECORDS SUMMARY | ~2020-04-13 | XMS | Encounter Summary ---
Demographics + + + | Address | [address] [facility] | | | [place] [address] | + + + | Home Phone | | + + + | Preferred Language | Unknown | + + + | Marital Status | | + + + | Taoist Affiliation | CHR | + + + [...] + | Tico Burns | ECON | [address] | | | | | [place], [place] | | | | | [address] | | + + + + + Care Team Providers + +------+ + | Care Finish Machine Tender Name | Role | Phone | [...] | | status | [address] | [facility] | | | | | Procedures | [address] | Rd [place], | | | | | CONSULT TO | [place], [place] | [place] | | | | | BARIATRIC | [address] | [address] | | | | | SURGERY | Phone: | Phone: | | | | | | [phone] | [phone] | | | | | | Fax: | Fax: | | | | | | [phone] | [phone] | +--------+--------+ + + + + Encounter Details +--------+---------+ + + + | Date | Type | Department | Care Team | Description | +--------+---------+ + + + | 01/30/ | Office | Digestive Health | Kristan Miranda, | Morbid obesity, | | 2017 | Visit | [facility] [address] | ACNP [address] | unspecified obesity | | | | [address] | Ave [place], [place] | type (HCC) (Primary | | | | Mailcode: Center | [address] | Dx); History of | | | | for Health and | | sleeve gastrectomy; | | | | Healing, Building 2 | | Vitamin D deficiency | | | | [place], [place] | | disease; Vitamin B | | | | [address] | | 12 deficiency; | | | [...] tends to his Knees. He saw the document preparation specialist prior to my appointment. Currently is [...] 430 to 439 at 6 months. 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 Ad multicultural internship with evening meal. Indications: TYPE 2 DIABETES [...] 04/11/2013 Lower abdomen Gastrectomy, sleeve 01/2013 open. [facility] Dr. 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 2. Labs today: I have provided the print out for him to get these in [place] CBC, CMP, B12, PTH, vit D, ferritin 3.Take acid software licensing executive (omeprazole) for first 3 mos, then [...] to POC and will call or send [employer] message if any issues. Start time 1515, end time 1545. I spent a total of 30 minutes face to face with this silvino ent. Over 50% of visit was in counseling. Kristan Goldsmith DNP, ACNP, VETERANS SERVICES SPECIALIST Nurse Practitioner for Bariatric Surgery [facility] | CH6D [address] | [place], [place] | [address] | documented in this en counter Plan [...]
--- OUTSIDE RECORDS SUMMARY | ~2020-04-13 | XMS | Encounter Summary ---
Demographics + + + | Address | [address] | | | [place] [address] | + + + | Home Phone [...] + | Tico Burns | ECON | [address] | | | | | [place], [place] | | | | | [address] | | + + + + + Care Team Providers + +------+ + | Care Oracle Application Architect Name | Role | Phone | [...] Center at [facility] [address] | [address] | | | | | [address] | [facility] 350 | | | | | Mailcode: Center | [place], [place] | | | | | for Health and | [address] | | | | | [facility], [facility] 2 | [phone] | | | | | [place], [place] | | | | | | [address] | | | | | | [phone] | | | +--------+ + + + [...]
--- OUTSIDE RECORDS SUMMARY | ~2020-04-13 | XMS | Encounter Summary ---
Demographics + + + | Address | [address] [facility] | | | [place] [address] | + + + | Home Phone [...] Organization | [facility] | | | and [place] | + + + | Address | Unknown | + + + | Phone | Unavailable | + + + Support + + + + + | Name | Relationship | Address | Phone | + + + + + | Milady Burns | ECON | [address] | | | | | [place], [place] | | | | | [address] | | + + + + + Care Team Providers + +------+ + | Care Associate Doctor Name | Role | Phone | + [...] | | | | | [address] | | | | | | [place], [place] | | | | | | [address] | | | | | | [phone] | | | +--------+ + + + [...]
--- OUTSIDE RECORDS SUMMARY | ~2020-04-13 | XMS | Encounter Summary ---
Demographics + + + | Address | [address] [facility] | | | [place] [address] | + + + | Home Phone [...] [place], [place] | | | | | [address] | | + + + + + Care Team Providers + +------+ + | Care Forest Biometrics Professor Name | Role | Phone | [...] Visit | Center at [facility] [address] | CORPORATE TECHNICAL RECRUITER [address] | gastrectomy (Primary | | | | [address] | [address] | Dx); Saurabh, | | | | Mailcode: Center | [place], [place] | abdominal; Fatty | | | | for Health and | [address] | tumor | | | | Healing, Building 2 | [phone] | | | | | [place], [place] | | | | | | [address] | | | | | | [phone] | | | +--------+---------+ + + + [...] N/A Years of Education: N/A 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 2. Pannus, large fatty tumor surrounding penis, this has been assessed by Dr. Perez in [place]. He comes in with Dr. Barr to evaluate and plan for surgical removal. Surgery date of 04 April given, message sent to [facility] schedulers to work on auth and contact pt. See PCM for adjusting any other medications. Call if any abd pain, n/v/d or other issues. ER for severe pain. Encouraged pt to F/u at 3 months post op. Pt agrees to POC and will call or send [employer] message if any issues. Start time 1500, end time 1520. I spent a total of 20 minutes face to face with this patie nt. Over 50% of visit was in counseling. ~ 2 Minutes of additional time spent reviewing chart prior to visit and documenting after t his visit. Violetta Byers RN, [facility]- Nurse Practitioner for Bariatric Surgery [facility] | [facility] [address] | [place] | [address] | documented in this e ncounter Plan [...]
--- OUTSIDE RECORDS SUMMARY | ~2020-04-13 | XMS | Encounter Summary ---
Demographics + + + | Address | [address] [facility] | | | [place] [address] | + + + | Home Phone [...] + + | Author | [facility] | | | and [place] | + + + | Organization | [facility] | | | and [place] | + + + | Address | Unknown | + + + | Phone | Unavailable | + + + Support + + + + + | Name | Relationship | Address | Phone | + + + + + | Milady Burns | ECON | [address] | | | | | [place] | | | | | [address] | | + + + + + Care Team Providers + +------+ + | Care Puppet Master Name | Role | Phone | + [...] | [address] | [address] | | | | | with | [facility], | [place], | | | | | radiculopath | [place] [address] | [place] | | | | | y | Phone: | [address] | | | | | Degenerative | [phone] | Phone: | | | | | disc | Fax: | [phone] | | | | | disease, | [phone] | Fax: | | | | | cervical | | [phone] | | | | | Foraminal | [...] | | | | | | | ([facility]) | | | | | | | [...] | | | | | with | [facility], | [address] | | | | | radiculopath | [place] [address] | [place], | | | | | y | Phone: | [place] [address] | | | | | Degenerative | [phone] | Phone: | | | | | disc | Fax: | [phone] | | | | | disease, | [phone] | Fax: | | | | | cervical | | [phone] | | | | | Foraminal | [...] | | | | | | | ([facility]) | | | | | | | [...] | | herniation | [address] | [place], [place] | | | | | Procedures | [place] | [address] | | | | | [place] OFFICE | [place] | Phone: | | | | | CONSULTATION | [address] | [phone] | | | | | NEW/ESTAB | Phone: | Fax: | | | | | PATIENT 60 | [phone] | [phone] | | | | | MIN | Fax: | | | | | | | [phone] | | +--------+--------+ + + + + Encounter Details +--------+---------+ + + + | Date | Type | Department | Care Team | Description | +--------+---------+ + + + | 04/04/ | Office | [facility] | Chauncey Lee MD | Cervical spondylosis | | 2016 | Visit | NEUROSURGERY [address] | [address] | with radiculopathy | | | | [address] | [place] [address] | (Primary Dx); | | | | [place] | [phone] | Degenerative disc | | | | [address] | | disease, cervical; | | | | [phone] | | 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 Chauncey Lee MD [address] [facility], [address] [place], [place] [address] FAX: NEUROSURGERY HISTORY AND PHYSICAL EXAMINATION CHIEF [...] by mouth 2 times daily. ergocalciferol (ERGOCALCIFEROL) 53347 UNITS capsule Take 50,000 Units by mouth Once a w rincon. FLUoxetine (PROZAC) 20 mg capsule Take 20 [...] has no apparent deficits with short or [facility] memory. CRANIAL NERVES: II: Acuity is intact. [...] Triceps 5 5 Wrist Flexion 5 4 Tree Specialist Strength 5 4 Hip Flexion 5 5 [...] | | | | | | type ([facility]) Sleep | | | | | | [...] | | | | | | type ([facility]) Sleep | | | | | | [...]
--- OUTSIDE RECORDS SUMMARY | ~2020-04-13 | XMS | Encounter Summary ---
Demographics + + + | Address | [address] [facility] | | | [place] [address] | + + + | Home Phone [...] Organization | [facility] | | | and [place] | + + + | Address | Unknown | + + + | Phone | Unavailable | + + + Support + + + + + | Name | Relationship | Address | Phone | + + + + + | Milady Burns | ECON | [address] | | | | | [place], [place] | | | | | [address] | | + + + + + Care Team Providers + +------+ + | Care Farmworker Fur Name | Role | Phone | + [...] | | | | | | | [place] | | | | | | | [...] | | | | | [address] | [address] [place], [place] | | | | | [place], [place] | [address] | | | | | [address] | [phone] | | | | | [phone] | | | | | | | Brandyn Agee MD | | | | | | [address] | | | | | | [place], [place] | | | | | | [address] | | | | | | | [...] 06/02/16 1530 by | | eral | plyo-wzo-sbidzz catheter system; | Milka Saxena, RN | [...] | | | | PRN, Pain, Starting [facility] 06/01/16 | | AM PDT | | [...] | | | | | Anxiety, Starting [facility] 06/01/16 at | | AM PDT | [...] | | | | | Vomiting, Starting [facility] 06/01/16 at | | AM PDT | [...]
--- OUTSIDE RECORDS SUMMARY | ~2020-04-13 | XMS | Encounter Summary ---
Demographics + + + | Address | [address] [facility] | | | [place] [address] | + + + | Home Phone | | + + + | Preferred Language | Unknown | + + + | Marital Status | | + + + | Sikh Affiliation | 1013 | + + + | Race | Unknown | + + + | Ethnic Group | Unknown | + + + Author + + + | Author | [facility] | | | and [place] | + + + | Organization | [facility] | | | and [place] | + + + | Address | Unknown | + + + | Phone | Unavailable | + + + Support + + + + + | Name | Relationship | Address | Phone | + + + + + | Milady Burns | ECON | [address] | | | | | [place], [place] | | | | | [address] | | + + + + + Care Team Providers + +------+ + | Care Flood Control Engineer Name | Role | Phone | + +------+ + | Ocsar Wright MD | PCP | | + [...] | | [address] | [place] [address] | | | | | [place] | [phone] | | | | | [address] | | | | | | [phone] | | | +--------+ + + + [...] + | [address] | [address] | [place], [place] | [phone] | | [facility] | | [address] | | | - IMAGING | | | | + + + + + documented in this encounter Visit Diagnoses + + | Diagnosis | + + | S/P cervical spinal fusion - Primary Arthrodesis status | + + documented in this encounter"
--- OUTSIDE RECORDS SUMMARY | ~2020-04-13 | XMS | Encounter Summary ---
Demographics + + + | Address | [address] [facility] | | | [place] [address] | + + + | Home Phone | | + + + | Preferred Language | Unknown | + + + | Marital Status | | + + + | Adventist Affiliation | 1013 | + + + | Race | Unknown | + + + | Ethnic Group | Unknown | + + + Author + + + | Author | [facility] | | | and [place] | + + + | Organization | [facility] | | | and [place] | + + + | Address | Unknown | + + + | Phone | Unavailable | + + + Support + + + + + | Name | Relationship | Address | Phone | + + + + + | Milady Burns | ECON | [address] | | | | | [place] | | | | | [address] | | + + + + + Care Team Providers + +------+ + | Care Marketing Consultant Name | Role | Phone | [...] | | [address] | [place] [address] | | | | | [place], [place] | [phone] | | | | | [address] | | | | | | [phone] | Ever Swenson, | | | | | | PA-C [address] | | | | | | [address] [place] | | | | | | [place] [address] | | | | | | [phone] | | | | | | | [...] from the original. Ever Swenson PA-C [address] [facility] [place] [address] FAX: NEUROSURGERY FOLLOW-UP CHIEF COMPLAINT: Chief Complaint [...] Muscle spasms. 90 tablet 3 ergocalciferol (ERGOCALCIFEROL) 60049 UNITS capsule Take 50,000 Units by mouth Once a w atka. FLUoxetine (PROZAC) 20 mg capsule Take 20 mg by mouth Daily. gabapentin (NEURONTIN) 300 mg capsule Take by mouth. Glucose Blood (Pristine.io BREEZE 2 TEST) DISK Use as directed [...]
--- OUTSIDE RECORDS SUMMARY | ~2020-04-13 | XMS | Encounter Summary ---
Demographics + + + | Address | [address] [facility] | | | [place] [address] | + + + | Home Phone [...] + | Tico Burns | ECON | [address] | | | | | [place], [place] | | | | | [address] | | + + + + + Care Team Providers + +------+ + | Care Assistant Superintendent For Curriculum Name | Role | Phone | + [...] | | | | | | | [place], [place] | | | | | | | [address] | | | | | | | Phone: | | | | | | | [phone] | | | | | | | Fax: | | | | | | | [phone] | +--------+--------+ + + + + Encounter Details +--------+---------+ + + + | Date | Type | Department | Care Team | Description | +--------+---------+ + + + | 09/04/ | Office | [facility] | Jesus Perez, | Status post | | 2012 | Visit | Center at [facility] [address] | MD [address] | bariatric surgery | | | | [address] | [address] | (Primary Dx) | | | | Mailcode: [place] | [place], [place] | | | | | [facility] and | [address] | | | | | [facility] 2 | [phone] | | | | | [place], [place] | | | | | | [address] | | | | | | [phone] | | | +--------+---------+ + + + [...] will be having a lab draw in [place] in the next few weeks. WEIGHT ONLY [...]
--- OUTSIDE RECORDS SUMMARY | ~2020-04-13 | XMS | Encounter Summary ---
Demographics + + + | Address | [address] | | | [place] [address] | + + + | Home Phone [...] + + | Author | [facility] | | | and [place] | + + + | Organization | [facility] | | | and [place] | + + + | Address | Unknown | + + + | Phone | Unavailable | + + + Support + + + + + | Name | Relationship | Address | Phone | + + + + + | Milady Burns | ECON | [address] | | | | | [place], [place] | | | | | [address] | | + + + + + Care Team Providers + +------+ + | Care Integrity Assessor Name | Role | Phone | + +------+ + | Moe Bella MD | PCP | | + +------+ + Encounter Details +--------+ + + + + | Date | Type | Department | Care Team | Description | +--------+ + + + + | 05/10/ | Hospital | [facility] | Chauncey Lee MD | | | 2016 | Encounter | MED CTR LABORATORY | [address] | | | | | [address] | [place] [address] | | | | | [place] | [phone] | | | | | [address] | | | | | | [phone] | Jeffery Ruiz MD | | | | | | [address] [facility] | | | | | | [place] | | | | | | [address] | | | | | | | [...] | | | 12 | | | 10362 UNITS capsule | | | | | [...]
--- OUTSIDE RECORDS SUMMARY | ~2020-04-13 | XMS | Encounter Summary ---
Demographics + + + | Address | [address] [facility] | | | [place] [address] | + + + | Home Phone | | + + + | Preferred Language | Unknown | + + + | Marital Status | | + + + | Jew Affiliation | 1013 | + + + | Race | Unknown | + + + | Ethnic Group | Unknown | + + + Author + + + | Author | [facility] | | | and [place] | + + + | Organization | [facility] | | | and [place] | + + + | Address | Unknown | + + + | Phone | Unavailable | + + + Support + + + + + | Name | Relationship | Address | Phone | + + + + + | Milady Burns | ECON | [address] | | | | | [place], [place] | | | | | [address] | | + + + + + Care Team Providers + +------+ + | Care Fixed Assets Accountant Name | Role | Phone | + [...] | | | | | | | [place] | | | | | | | [...] + + | 06/01/ | Surgery | [facility] | Chauncey Lee MD | C4-5, C5-6, C6-7 | | 2016 | | MED CTR OR INTRA OP | [address] | Anterior Cervical | | | | [address] | [place] [address] | Discectomy Fusion | | | | [place] | [phone] | | | | | [address] | | | | | | [phone] | | | +--------+---------+ + + + [...] might be differ ent from the original. [facility] NEUROSURGERY DISCHARGE SUMMARY Patient Name: Gerard Burns [...] as needed for Pain. Unchanged Medications Details PartyWithMe BREEZE 2 TEST Disk Generic drug: Glucose Blood Use as directed PartyWithMe MICROLET LANCETS Misc Use as directed CRESTOR 40 MG tablet Generic drug: rosuvastatin Take 40 mg by mouth Daily. ergocalciferol 76485 UNITS capsule Take 50,000 Units by mouth [...] LANCETS MISC Use as directed ergocalciferol (ERGOCALCIFEROL) 11347 UNITS capsule 50,000 Units Take 50,000 Units [...] t raise your hands over your head ikn2ftrn(s)after your surgery. Don t drive until your [...] this your 1 month post op appointment. 9391-5650 The [employer]. [address] [place] [address], [place] [address]. All righ ts reserved. This information is [...] | | | 12 | | | [address]202 UNITS capsule | | | | | [...] + | [facility] | [address] | [place] | [phone] | | [facility] | | [address] | | | - LABORATORY | | [...] [address] | [place] | [phone] | | [facility] | | [address] | | | - LABORATORY | | [...] [address] | [place] | [phone] | | [facility] | | [address] | | | - LABORATORY | | [...] + | [facility] | [address] | [place] | [phone] | | [facility] | | [address] | | | - LABORATORY | | [...] + | [facility] | [address] | [place] | [phone] | | [facility] | | [address] | | | - LABORATORY | | [...] [address] | [place] | [phone] | | [facility] | | [address] | | | - LABORATORY | | [...] | Procedure Note | + + | Johs Quinteros Results In - 06/01/2016 2:11 PM [...] [address] | [address] | [place], [place] | [phone] | | [facility] | | [address] | | | - LABORATORY | | [...] [address] | [place] | [phone] | | [facility] | | [address] | | | - LABORATORY | | [...]
--- OUTSIDE RECORDS SUMMARY | ~2020-04-13 | XMS | Encounter Summary ---
Demographics + + + | Address | [address] [facility] | | | [place] [address] | + + + | Home Phone | | + + + | Preferred Language | Unknown | + + + | Marital Status | | + + + | Adventist Affiliation | CHR | + + + | Race | White | + + + | Ethnic Group | Not or | + + + Author + + + | Author | [facility] | + + + | Organization | [facility] | + + + | Address | Unknown | + + + | Phone | Unavailable | + + + Support + + + + + | Name | Relationship | Address | Phone | + + + + + | Tico Burns | ECON | [address] | | | | | [place], [place] | | | | | [address] | | + + + + + [...] at | | | | | | [facility] 4th Floor [address] | | | | | | [address] | | | | | | Mailcode: [facility] | | | | | | [facility] | | | | | | and Healing, | | | | | | Building ,4th Floor | | | | | | [place], [place] | | | | | | [address] | | | | | | [phone] | | | +--------+ + + + [...]
--- OUTSIDE RECORDS SUMMARY | ~2020-04-13 | XMS | Encounter Summary ---
Demographics + + + | Address | [address] [facility] | | | [place] [address] | + + + | Home Phone [...] Author | [facility] | | | and [place] | + + + | Organization | [facility] | | | and [place] | + + + | Address | Unknown | + + + | Phone | Unavailable | + + + Support + + + + + | Name | Relationship | Address | Phone | + + + + + | Milady Burns | ECON | [address] | | | | | [place], [place] | | | | | [address] | | + + + + + Care Team Providers + +------+ + | Care Staff Antisubmarine Officer Name | Role | Phone | + +------+ + | Moe Bella MD | PCP | | + +------+ + Encounter Details +--------+ + + + + | Date | Type | Department | Care Team | Description | +--------+ + + + + | 05/10/ | Hospital | [facility] | Chauncey Lee MD | | | 2016 | Encounter | MED CTR LABORATORY | [address] | | | | | [address] | [place] [address] | | | | | [place] | [phone] | | | | | [address] | | | | | | [phone] | Jeffery Ruiz MD | | | | | | [address] [facility] | | | | | | [place] | | | | | | [address] | | | | | | | [...] | | | 12 | | | 63370 UNITS capsule | | | | | [...]
--- OUTSIDE RECORDS SUMMARY | ~2020-04-13 | XMS | Encounter Summary ---
Demographics + + + | Address | [address] [facility] | | | [place] [address] | + + + | Home Phone [...] Organization | [facility] | | | and [place] | + + + | Address | Unknown | + + + | Phone | Unavailable | + + + Support + + + + + | Name | Relationship | Address | Phone | + + + + + | Milady Burns | ECON | [address] | | | | | [place] | | | | | [address] | | + + + + + Care Team Providers + +------+ + | Care Gear Coding Machine Operator Name | Role | Phone [...] | | displacement | [address] | [place], [place] | | | | | , lumbar | [place], | [address] Phone: | | | | | [facility] | [place] [address] | [phone] | | | | | | Phone: | Fax: | | | | | | [phone] | [phone] | | | | | | Fax: | | | | | | | [phone] | | + +--------+ + + + [...] | without myelopathy; | | | | [address] | [address] | Morbid obesity with | | | | [phone] | | BMI of 60.0-69.9, | | | | | | adult ([facility]); | | | | | | Bilateral [...] from the original. 1. Please have your special needs child caregiver work with Dr. Daigle at [facility] inpatient re hab to help facilitate [...] disk, and irritate nerves. Date Last Reviewed: 04/05/201819994708-0500 [employer]. [address] [place] [address]. All righ ts reserved. This information is not intended as a substitute for professional medical care. Always follow your healthcare professional's instructions. documented in this encounter Progress Notes Vannessa Taylor PA-C - 02/16/2020 1:40 PM PDTFormatting of this note might be diffe rent from the original. Jorge Taylor PA-C [address] [place] [address], [address] [place] [address] PHONE: FAX: PHYSIATRY HISTORY AND PHYSICAL EXAMINATION [...] having a few physical therapy sessions at [facility]. The symptoms are daily and predominantly [...] Patient has been approved for inpatient senior care and wa s referred to neurosurgery at [facility] she anticipates in May. . PAST [...] Fusion; Surgeon: Chauncey Lee MD ; Location: [facility] MAIN OR DENTAL SURGERY Root and crown placement GASTRIC BYPASS SURGERY 12/26/2006 Attempted that resulted in small bowel resection - Dr Armando Braden; [place] GASTRIC RESECTION SURGERY 2014 GROIN SURGERY 07/04/2017 Tumor Removal - ; LIPOMA REMOVAL 04/10/2013 Dr Vang NECK SURGERY SLEEVE GASTROPLASTY 01/08/2013 Nayan, [facility] Dr Perez THYROIDECTOMY 07/2011 CURRENT MEDICATIONS: [...] on 02/16/2020) 90 tablet 3 ergocalciferol (ERGOCALCIFEROL) 50666 UNITS capsule Take 50,000 Units by mouth Once a w coquille. (Patient not taking: Reported on 02/16/2020) FLUoxetine [...] has no apparent deficits with short or superintendent container terminal memory. Cranial nerves 2-12 appear grossly intact. EXTREMITIES: No cyanosis, clubbing, or edema. Distal pulses are palpable. PHYSICAL EXAM: MENTAL STATUS: He is awake, alert, and oriented. He follows simple and complex commands. His speech is fluent, he comprehends speech well, and he repeats well. He has no apparent deficits with short or superintendent container terminal memory. CRANIAL NERVES: II: Acuity is intact. [...] Intrinsics 5 5 Ulnar Intrinsics 5 5 Water Supply Engineer Strength 5 5 Hip Flexion 3 5 [...] inpatient rehab. I consulted Dr. Daigle at [facility] for inpatient rehab consultation. He asked that if the ethan maurice meets criteria having failed home health that a referral be placed to him. Patient ag barbi to help facilitate this by discussing this with his group insurance specialist. I did feel that Gerard Burns would [...]
--- OUTSIDE RECORDS SUMMARY | ~2020-04-13 | XMS | Encounter Summary ---
Demographics + + + | Address | [address] [facility] | | | [place] [address] | + + + | Home Phone | | + + + | Preferred Language | Unknown | + + + | Marital Status | | + + + | Scientology Affiliation | 1013 | + + + | Race | Unknown | + + + | Ethnic Group | Unknown | + + + Author + + + | Author | [facility] | | | and [place] | + + + | Organization | [facility] | | | and [place] | + + + | Address | Unknown | + + + | Phone | Unavailable | + + + Support + + + + + | Name | Relationship | Address | Phone | + + + + + | Milady Burns | ECON | [address] | | | | | [place], [place] | | | | | [address] | | + + + + + Care Team Providers + +------+ + | Care Gis Consultant Name | Role | Phone | [...] | | [address] | [place] [address] | initial encounter | | | | [place] | [phone] | (HCC) (Primary Dx); | | | | [address] | | S/P cervical spinal | | | | [phone] | | fusion | +--------+---------+ + + [...] in this encounter Progress Notes Mari Hammond, Counselor Dormitory - 03/16/2017 9:23 AM PDTFormatting of this note might b e different from the original. Chauncey Lee MD [address] [place] [address], [address] [place], [place] [address] FAX: NEUROSURGERY FOLLOW-UP CHIEF COMPLAINT: Chief Complaint [...] tablet Take 81 mg by mouth Daily. PolianaET LANCETS MISC Use as directed calcium citrate-vitamin D3 (CITRACAL PETITES/VITAMIN D) 200-250 mg-unit tablet Take by mouth. Cyanocobalamin (VITAMIN B12 PO) Take 50,000 Units by mouth every 7 days. cyclobenzaprine (FLEXERIL) 10 mg tablet Take 1 tablet by mouth every 8 hours as needed for Muscle spasms. 90 tablet 3 ergocalciferol (ERGOCALCIFEROL) 39328 UNITS capsule Take 50,000 Units by mouth Once a w [place]. FLUoxetine (PROZAC) 20 mg capsule Take 20 mg by mouth Daily. gabapentin (NEURONTIN) 300 mg capsule Take by mouth. Glucose Blood (Embrane BREEZE 2 TEST) DISK Use as directed [...] Lee MD, 03/16/2017 9:34 documented [facility] Plan of Treatment Not on filedocumented [...]
--- OUTSIDE RECORDS SUMMARY | ~2020-04-13 | XMS | Encounter Summary ---
Demographics + + + | Address | [address] [facility] | | | [place] [address] | + + + | Home Phone [...] + + + + + | Tico uBrns | ECON | [address] | | | | | [place], [place] | | | | | [address] | | + + + + + Care Team Providers + +------+ + | Care Storage Wharfage Clerk Name | Role | Phone | [...] | | | | (HCC) Type | [place] | [address] | | | | | II or | [address] | Center for | | | | | unspecified | [place], | Health and | | | | | type | [place] [address] | Healing, | | | | | diabetes | Phone: | Building 2 | | | | | mellitus | [phone] | [place], [place] | | | | | without | Fax: | [address] | | | | | mention of | [phone] | Phone: | | | | | complication | | [phone] | | | | | , not stated | | Fax: | | | | | as | | [phone] | | | | | uncontrolled | | | +--------+--------+ + + + + Encounter Details +--------+---------+ + + + | Date | Type | Department | Care Team | Description | +--------+---------+ + + + | 06/10/ | Office | Digestive Health | [address] | Diabetes mellitus | | 2011 | Visit | Center at [facility] [address] | | ([facility]); Morbid | | | | [address] | | obesity ([facility]) | | | | for Health and | | | | | | Healing, Building 2 | | | | | | [place], [place] | | | | | | [address] | | | | | | [phone] | | | +--------+---------+ + + + [...] of Visit: 2:30 until 3:20. 50 minutes [id number] consult with the silvino entShilpi. SUBJECTIVE: Patient [...] milk, 2%. Lunch: noon to 2 pm. [place] from the [employer] shop, 12 " Tuna salad , lettuce, [...] stressed, at home. Tends to bake. Weight loom changer the past year: About the same: [...] Other relevant labs if available from outside [facility]. Nutrition Diagnosis: Obesity as [...] planned snack "veggie tray with cottage cheese Estonian yogurt dip" at 4 PM wit h [...] | + +--------+ + + + | DC MNT INITIAL | Routin | 06/10/2012 | [...]
--- OUTSIDE RECORDS SUMMARY | ~2020-04-13 | XMS | Encounter Summary ---
Demographics + + + | Address | [address] [facility] | | | [place] [address] | + + + | Home Phone | | + + + | Preferred Language | Unknown | + + + | Marital Status | | + + + | Buddhist Affiliation | 1013 | + + + | Race | Unknown | + + + | Ethnic Group | Unknown | + + + Author + + + | Author | [facility] | | | and [place] | + + + | Organization | [facility] | | | and [place] | + + + | Address | Unknown | + + + | Phone | Unavailable | + + + Support + + + + + | Name | Relationship | Address | Phone | + + + + + | Milady Burns | ECON | [address] | | | | | [place] | | | | | [address] | | + + + + + Care Team Providers + +------+ + | Care Plaster Machine Operator Name | Role | Phone | + +------+ + | Moe Bella MD | PCP | | + +------+ + Encounter Details +--------+ + + + + | Date | Type | Department | Care Team | Description | +--------+ + + + + | 07/11/ | Hospital | [facility] | Jose Mirza | Cervical spondylosis | | 2016 | Encounter | MED CTR XRAY [address] | with radiculopathy; | | | | [place] | [address] | S/P cervical spinal | | | | [place] [address] | [place] [address] | fusion | | | | [phone] | [phone] | | | | | | | [...] | | | 12 | | | [address] UNITS capsule | | | | | [...] [address] | KENYA Capps | [phone] | | [facility] | | [address] | | | - IMAGING | | | | + + + + + documented in this encounter Visit Diagnoses + + | Diagnosis | + + | Cervical spondylosis with radiculopathy Cervical spondylosis with myelopathy | + + | S/P cervical spinal fusion Arthrodesis status | + + documented in this encounter"
--- OUTSIDE RECORDS SUMMARY | ~2020-04-13 | XMS | Encounter Summary ---
Demographics + + + | Address | [address] [facility] | | | [place] [address] | + + + | Home Phone [...] + | Tico Burns | ECON | [address] | | | | | [place], [place] | | | | | [address] | | + + + + + Care Team Providers + +------+ + | Care Emergency Preparedness Manager Name | Role | Phone | [...] | | | Metabolism | obesity | [address] | | | | (HCC) DM | [address] | [address] | | | | | (diabetes | [address] | [place], [place] | | | | | mellitus) | [place], [place] | [address] | | | | | (HCC) | [address] | Phone: | | | | | Hypertension | Phone: | [phone] | | | | | | [phone] | Fax: | | | | | Hyperlipidem | Fax: | [phone] | | | | | [place] | [phone] | | | | | | Procedures | | | | | | | CONSULT TO | | | | | | | ENDO | | | | | | | [address] | | | | | | | [address] | | | +--------+--------+ + + + + Encounter Details +--------+ + + + + | Date | Type | Department | Care Team | Description | +--------+ + + + + | 11/22/ | Energy Trading Analyst | Digestive Health | Violetta Byers, | Morbid obesity (HCC) | | 2012 | | [place] at [facility] [address] | GAS OPERATION MANAGER [address] | (Primary Dx); DM | | | | [address] | (diabetes mellitus) | | | | Mailcode: [place] | [place], [place] | ([facility]); Hypertension; | | | | for Health and | [address] | Hyperlipidemia | | | | [place] [address] | [phone] | | | | | [place], [place] | | | | | | [address] | | | | | | [phone] | | | +--------+ + + + [...] | + + | DM (diabetes mellitus) ([facility]) Type II or unspecified type diabetes mellitus without | | mention of complication, not stated as uncontrolled | + + | Hypertension Unspecified essential hypertension | + + | Hyperlipidemia Other and unspecified hyperlipidemia | + + documented in this encounter"
--- OUTSIDE RECORDS SUMMARY | ~2020-04-13 | XMS | Encounter Summary ---
Demographics + + + | Address | [address] [facility] | | | [place] [address] | + + + | Home Phone [...] | Organization | [facility] | | | and [place] | + + + | Address | Unknown | + + + | Phone | Unavailable | + + + Support + + + + + | Name | Relationship | Address | Phone | + + + + + | Milady Burns | ECON | [address] | | | | | [place] | | | | | [address] | | + + + + + Care Team Providers + +------+ + | Care Legal Director Name | Role | Phone | + +------+ + | Moe Bella MD | PCP | | + +------+ + Encounter Details +--------+ + + + + | Date | Type | Department | Care Team | Description | +--------+ + + + + | 08/22/ | Hospital | 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 | | | | | ([facility]) S/P cervical | | | [...]
--- OUTSIDE RECORDS SUMMARY | ~2020-04-13 | XMS | Encounter Summary ---
Demographics + + + | Address | [address] [facility] | | | [place] [address] | + + + | Home Phone | | + + + | Preferred Language | Unknown | + + + | Marital Status | | + + + | Cheondoism Affiliation | 1013 | + + + | Race | Unknown | + + + | Ethnic Group | Unknown | + + + Author + + + | Author | [facility] | | | and [place] | + + + | Organization | [facility] | | | and [place] | + + + | Address | Unknown | + + + | Phone | Unavailable | + + + Support + + + + + | Name | Relationship | Address | Phone | + + + + + | Milady Burns | ECON | [address] | | | | | [place] | | | | | [address] | | + + + + + Care Team Providers + +------+ + | Care Solution Consultant Name | Role | Phone | + +------+ + | Moe Bella MD | PCP | | + +------+ + Encounter Details +--------+ + + + + | Date | Type | Department | Care Team | Description | +--------+ + + + + | 03/16/ | Hospital | [facility] | Chauncey Lee MD | S/P cervical spinal | | 2017 | Encounter | MED CTR XRAY [address] | [address] | fusion | | | | [place] | [place] [address] | | | | | [place] [address] | [phone] | | | | | [phone] | | | +--------+ + + + [...] | | | 12 | | | [id number] UNITS capsule | | | | | [...] + | [facility] | [address] | [place], [place] | [phone] | | [facility] | | [address] | | | - IMAGING | | | | + + + + + documented in this encounter Visit Diagnoses + + | Diagnosis | + + | S/P cervical spinal fusion Arthrodesis status | + + documented in this encounter"
--- OUTSIDE RECORDS SUMMARY | ~2020-04-13 | XMS | Encounter Summary ---
Demographics + + + | Address | [address] [facility] | | | [place] [address] | + + + | Home Phone [...] [place], [place] | | | | | [address] | | + + + + + Care Team Providers + +------+ + | Care Bung Driver Name | Role | Phone | + +------+ + | Moe Bella MD | PCP | | + +------+ + Encounter Details +--------+ + + + + | Date | Type | Department | Care Team | Description | +--------+ + + + + | 12/24/ | Telephone | Digestive Health | Jesus Perez, | | | 2012 | | [place] [address] | [address] | | | | | [place] Mailcode: CH[facility] | [facility] | | | | | [facility] | [place], [place] | | | | | and Healing, | [address] | | | | | [address] | [phone] | | | | | Floor [place], [place] | | | | | | [address] | | | | | | [phone] | | | +--------+ + + + [...]
--- OUTSIDE RECORDS SUMMARY | ~2020-04-13 | XMS | Encounter Summary ---
Demographics + + + | Address | [address] [facility] | | | [place] [address] | + + + | Home Phone [...] + | Tico Burns | ECON | [address] | | | | | [place], [place] | | | | | [address] | | + + + + + Care Team Providers + +------+ + | Care Casting Machine Operator Helper Name | Role | Phone | + +------+ + | Moe Bella MD | PCP | | + +------+ + Encounter Details +--------+ + + + + | Date | Type | Department | Care Team | Description | +--------+ + + + + | 02/14/ | Abstract | Digestive Health | Clinic, Surgery | | | 2015 | | [place] at [facility] [address] | | | | | | [address] | | | | | | Mailcode: [place] | | | | | | for Health and | | | | | | Healing, Building 2 | | | | | | [place], [place] | | | | | | [address] | | | | | | [phone] | | | +--------+ + + + [...]
--- OUTSIDE RECORDS SUMMARY | ~2020-04-13 | XMS | Encounter Summary ---
Demographics + + + | Address | [address] [facility] | | | [place] [address] | + + + | Home Phone [...] + | Tico Burns | ECON | [address] | | | | | [place], [place] | | | | | [address] | | + + + + + Care Team Providers + +------+ + | Care Charge Operator Name | Role | Phone | [...] at | | | | | | [facility] 4th Floor [address] | | | | | | [address] | | | | | | Mailcode: [facility]S | | | | | | [facility] | | | | | | and Healing, | | | | | | Building ,4th Floor | | | | | | [place], [place] | | | | | | [address] | | | | | | [phone] | | | +--------+ + + + [...]
--- OUTSIDE RECORDS SUMMARY | ~2020-04-13 | XMS | Encounter Summary ---
Demographics + + + | Address | [address] [facility] | | | [place] [address] | + + + | Home Phone | | + + + | Preferred Language | Unknown | + + + | Marital Status | | + + + | Lutheran Affiliation | 1013 | + + + | Race | Unknown | + + + | Ethnic Group | Unknown | + + + Author + + + | Author | [facility] | | | and [place] | + + + | Organization | [facility] | | | and [place] | + + + | Address | Unknown | + + + | Phone | Unavailable | + + + Support + + + + + | Name | Relationship | Address | Phone | + + + + + | Milady Burns | ECON | [address] | | | | | [place] | | | | | [address] | | + + + + + Care Team Providers + +------+ + | Care Military Personnel Specialist Name | Role | Phone | [...] (Primary Dx); S/P | | | | [place], [place] | [place] [address] | cervical spinal | | | | [address] | [phone] | fusion | | | | [phone] | | | +--------+ + + + [...] + | [address] | [address] | [place] | [phone] | | [facility] | | [address] | | | - IMAGING | | [...]
--- OUTSIDE RECORDS SUMMARY | ~2020-04-13 | XMS | Encounter Summary ---
Demographics + + + | Address | [address] [facility] | | | [place] [address] | + + + | Home Phone [...] + | Tico Burns | ECON | [address] | | | | | [place], [place] | | | | | [address] | | + + + + + Care Team Providers + +------+ + | Care Resolution Specialist Name | Role | Phone | [...] | | | | | | | [facility] [place] | | | | | | | [address] | | | | | | | Phone: | | | | | | | [phone] | | | | | | | Fax: | | | | | | | [phone] | +--------+--------+ + + + + Encounter Details +--------+---------+ + + + | Date | Type | Department | Care Team | Description | +--------+---------+ + + + | 03/19/ | Office | Digestive Health | Jesus Perez, | Morbid obesity (HCC) | | 2013 | Visit | [place] at [facility] [address] | [address] | (Primary Dx) | | | | [address] | [address] | | | | | Mailcode: [place] | [place], [place] | | | | | [facility] and | [address] | | | | | Healing, Building 2 | [phone] | | | | | [facility] [place] | | | | | | [address] | | | | | | [phone] | | | +--------+---------+ + + + [...]
--- OUTSIDE RECORDS SUMMARY | ~2020-04-13 | XMS | Encounter Summary ---
Demographics + + + | Address | [address] [facility] | | | [place] [address] | + + + | Home Phone [...] [place], [place] | | | | | [address] | | + + + + + Care Team Providers + +------+ + | Care Grants Assistant Name | Role | Phone | [...] | | Center at [facility] [address] | [address] [address] | (check in post | | | | [address] | , [address] | discharge) | | | | Mailcode: Center | [place], [place] | | | | | and | [address] | | | | | [facility] 2 | [phone] | | | | | [place], [place] | | | | | | [address] | | | | | | [phone] | | | +--------+ + + + [...]
--- OUTSIDE RECORDS SUMMARY | ~2020-04-13 | XMS | Encounter Summary ---
Demographics + + + | Address | [address] [facility] | | | [place] [address] | + + + | Home Phone [...] + | Tico Burns | ECON | [address] | | | | | [place], [place] | | | | | [address] | | + + + + + Care Team Providers + +------+ + | Care Motor Builder Winder Name | Role | Phone | + [...] | | | | (HCC) Type | [address] | [address] | | | | | II or | [address] | Mailcode: | | | | | unspecified | [place], | [facility] | | | | | type | [place] [address] | Health and | | | | | diabetes | Phone: | Healing, | | | | | mellitus | [phone] | Building 2 | | | | | without | Fax: | [place], [place] | | | | | mention of | [phone] | [address] | | | | | complication | | Phone: | | | | | , not stated | | [phone] | | | | | as | | Fax: | | | | | uncontrolled | | [phone] | +--------+--------+ + + + + Encounter Details +--------+---------+ + + + | Date | Type | Department | Care Team | Description | +--------+---------+ + + + | 04/24/ | Office | Digestive Health | Harpreet Fenton, | Follow-up | | 2012 | Visit | Center at [facility] [address] | [address] [facility] | examination after | | | | [address] | [address] | abdominal surgery | | | | Mailcode: Center | [place], [place] | (Primary Dx); Status | | | | for Health and | [address] | post bariatric | | | | [facility], [facility] 2 | [phone] | surgery | | | | [place], [place] | | | | | | [address] | | | | | | [phone] | | | +--------+---------+ + + + [...] and plan of care. HARPREET FENTON MD [facility] BARIATRIC SURGERY [address] Mailcode: [place] [address] Rodriguez Wild MD - 04/24/2013 [...]
--- OUTSIDE RECORDS SUMMARY | ~2020-04-13 | XMS | Encounter Summary ---
Demographics + + + | Address | [address] [facility] | | | [place] [address] | + + + | Home Phone [...] + | Tico Burns | ECON | [address] | | | | | [place], [place] | | | | | [address] | | + + + + + Care Team Providers + +------+ + | Care Lead Operator Name | Role | Phone | [...] (Primary Dx); Other | | | | [facility] 4th Floor [address] | specified | | | | [address] | [place], [place] | pre-operative | | | | Mailcode: [facility]S | [address] | examination; DM | | | | [facility] | [phone] | (diabetes mellitus) | | | | and Healing, | | (HCC); Hypertension; | | | | Building 1,4th Floor | | Hyperlipidemia; | | | | [place], [place] | | Thyroid cancer | | | | [address] | | ([facility]); | | | | [phone] | | Hypothyroidism; KARELY | | | [...] Check in Locations Admitting [facility], [facility] Surgery Check in Time: The Preoperative [...] it is after office hours, call the [facility] ripsaw operator at [phone] and ask them to page him or [...] to be coming fatigued. Saw his local steam pipe fitter within the month, who encourages this procedure for the patient. However, the patient's weight prohibits a nuc stress or cardiac cath proced ure in the [facility]. Per ERIC Rodriguez cardiology-[facility] is not able to accomodate h is [...] and PMHX. Document will be scanned in Away[employer]. Current Medication List Name Sig ASPIRIN 81 [...] or consider noninvasive testing if it will private branch exchange operator Surgery Risk: High Patient-related risk: Estimated ASA [...] to this patient's care. FAVIO Romero ANP [facility] [address] [place] [id number] [phone] signed by FAVIO Romero at 12/30/2012 9:24 [...] | [facility] | [address] [facility] | [place] [address] | | | OF CARE TESTS | [...] | | | | | AMITA TAN ([id number]) | | | | | | on 12/26/2012 10:49:35 PM | | | | + + + + + + + + | Specimen | + + | | + + + + + | Narrative | Performed At | + + + | Please click | [facility] | | on view image for the detailed interpretation from 12Bis results. | CARDIOLOGY | + + + + + + + + | Performing | Address | City/State/Zipcode | Phone Number | | Organization | | | | + + + + + | [facility] | [address] [facility] [address] | [place], [place] | | | CARDIOLOGY | [address] | [address] | | + + + + + [...] [facility] | [address] | [place] [address] | | | SERVICES, CORE | [address]ARK [...] + + + + + | [facility] | [address] | [place] [address] | | | SERVICES, | [address] [...] [facility] | [address] | [place] [address] | | | SERVICES, | [address] [...] | | | LABORATORY | | | [place] | | | SERVICES, | | | [...] + + + + + | [facility] | [address] | [place] [address] | | | DAVEY CRAWFORD | T[address] [...] Hypothyroidism Unspecified hypothyroidism | + + | AKRELY (obstructive sleep apnea) Obstructive sleep apnea (adult) (pediatric) | + + | Panniculitis Panniculitis, unspecified site | + + documented in this encounter
--- OUTSIDE RECORDS SUMMARY | ~2020-04-13 | XMS | Encounter Summary ---
Demographics + + + | Address | [address] [facility] | | | [place] [address] | + + + | Home Phone [...] + | Tico Burns | ECON | [address] | | | | | [place], [place] | | | | | [address] | | + + + + + Care Team Providers + +------+ + | Care Recruitment Manager Name | Role | Phone | [...] | | Center at [facility] [address] | REAL ESTATE INSPECTOR [address] | Recall) | | | | [address] | [facility] 350 | | | | | Mailcode: Center | [place], [place] | | | | | for Health and | [address] | | | | | [facility] 2 | [phone] | | | | | [place], [place] | | | | | | [address] | | | | | | [phone] | | | +--------+ + + + [...] 02/11/2016 3:22 PM PDT Recall Information ID: [id number] Status: New [10] Patient: LUCY BURNS Visit Type: [facility] RETURN [5441] Provider/Resource: VIOLETTA BROWN [[id number]] Department: BAR BARIATRIC SURG [facility] [[id number]] Notification Date: 01/09/2016 Recall Date: 01/09/2016 Expiration Date Letter: Generating Appointment: 02/27/13 Audit Bison: User: Time: Status: Ambar Webster [CHAUMJE] 02/04/2013 11:47 AM New [10] Scheduling Instructions 2 year veronika follow up 9. - 07.08.2016 Appointment Notes 2 year veronika postop - dos 3.6.2012 - open sleeve - deveney schedule 9. - 07.08.2016 Communication History User: NEOL ACEVEDO Date/time: 02/11/16 3:21 PM Comment: requested pcp notes Context: Judi Recall Report Phone number: [phone] Phone Type: Comm. type: Telephone Call type: Outgoing Contact: Lucy Burns Relation to patient: Self User: HEMANTH MOORE Date/time: 01/12/16 2:10 PM Comment: Context: Judi Recall Report Outcome: Left Message Phone number: [phone] Phone Type: Comm. type: Telephone Call type: Outgoing Contact: Lucy Burns Relation to patient: Self User: NOEL ACEVEDO Date/time: 12/09/15 11:24 AM Comment: Context: Judi Recall Report Outcome: Left Message Phone number: [phone] Phone Type: Comm. type: Telephone Call type: Outgoing Contact: Lucy Burns Relation to patient: Self documented in this encount er Plan of Treatment Not on filedocumented as of this encounter Visit Diagnoses Not on filedocumented in this encounter"
--- OUTSIDE RECORDS SUMMARY | ~2020-04-13 | XMS | Encounter Summary ---
Demographics + + + | Address | [address] [facility] | | | [place] [address] | + + + | Home Phone [...] [place], [place] | | | | | [address] | | + + + + + Care Team Providers + +------+ + | Care Sales Exhibitor Name | Role | Phone | + [...] LAPAROSCOPIC, OPEN | | | | [facility] | [facility] | EXPLORATORY | | | | Hospital Admitting | [place], [place] | LAPAROTOMY, LYSIS OF | | | | Desk Located on the | [address] | ADHESIONS, SLEEVE | | | | 9th floor | [phone] | GASTRECTOMY | | | | [place], [place] | | | | | | [address] | | | +--------+---------+ + + + [...] MD Attending Physician: Jesus Perez MD PCP: Meo Bella MD Admission Date: 01/08/2013 Discharge Date: [...] narcotic pain medications, please call the clinic ([phone] ) by 2 pm on for any [...] during the day time hours by calling [facility] office at [phone] - After hours, weekends and holidays, you may call the hospital cement conveyor operator at [phone] an d have the operations staff specialist security [place] Team for general surgery paged. Constipation Prevention [...] to add researl Dong, MD, PGY1 Anesthesia Stick Inserter Pager [phone] Florencia Ivy MD - 01/10/2013 7:49 AM PSTSURGERY INPATIENT PROGRESS NOTE Hospital Day:2 Author; FLORENCIA KATHLEEN MD, MIS/Bariatric Fellow, Pager [phone] Attending Physician: Jesus Perez MD Surgical Issues: [...] BLOCK PROGRESS NOTE 01/10/2013 Author: Stephanie Horan PROCESS DESIGN ENGINEER POD# 2. Status post: 1. Attempted laparoscopic procedure 2. Ex-Lap, FLYOD 3. Open sleeve gastrectomy Previously obtained Past [...] and summary of old medical records (source: [employer]), as summarized in the body of the note. Stephanie Horan NP Adult Pain Service Pager [phone] Team Pager [phone] BILLING INFORMATION [facility] DEPARTMENT: [id number] Place of Service:- Inpatient Date of Service: 01/10/2013 CSN: [id number] Suggested Modifier: None Suggested CPT: 37951 - Daily mgmt epidural/subarachnoid drug administration Prolonged service: n/a Florencia Ivy MD - 01/09/2013 12:53 PM PSTSURGERY INPATIENT PROGRESS NOTE Hospital Day:1 Author; FLORENCIA KATHLEEN MD, MIS/Bariatric Fellow, Pager [phone] Attending Physician: Jesus Perez MD Surgical Issues: [...] days. Epidural per APS. Kalina Adame AC PROCESS DESIGN ENGINEER - 01/09/2013 11:29 AM PST Inpatient Progress [...] DISPO - requires acute care CRISTIN HOBSON [facility] [address] [place] [address] This assessment and plan was formulated both [...] HORAN NP BILLING INFORMATION [facility] DEPARTMENT: [id number] Place of Service:- Inpatient Date of Service: 01/09/2013 CSN: [id number] Suggested Modifier: None Suggested CPT: 30070 - Daily mgmt epidural/subarachnoid drug administration Prolonged service: n/a Hedy Villa - 2012 6:46 AM PSTMedical student progress note Overnight events/S: Mr. Burns is feeling well this morning. He did not get a lot of sle ep due to noise on the floor, but his pain (2/10, achy pain around incision site) is well co ntrolled and he is only using his DATABASE DBA pump about once an hour. He has [...] oral meds and tolerating PO. Hedy Wood [id number] signed by CRISTIN Hobson at 01/10/2013 12:06 [...] RT Continue current care. Alfonso Sousa MD Clinical Team Manager, PGY-1 Pager: [phone] [facility] [place] [address] [facility] [address] ung, MD Yahaira - 01/08/2013 3:37 PM [...] ve | 12:45 PM | ([facility]) | | | HYDRODISTENSION | Surgic [...] ve | 12:45 PM | ([facility]) | | | | Surgic | [...] - EVELIAAM | [address] | [place], [place] | | | [place] [facility] | [address] | [address] | | | TESTS | | | [...] [facility] | [address] | [place] [address] | | | SERVICES, CORE | PARK [...] [facility] | [address] | [place] [address] | | | SERVICES, CORE | TJ [...] [facility] | [address] | [place] [address] | | | SERVICES, CORE | PARK [...] [facility] | [address] | [place] [address] | | | SERVICES, CORE | PARK [...] | + + + + + | [facility] | [address] [facility] | [place] [address] | | | SERVICES, CORE | TJ [...] MARQUAM | [address] | [place], [place] | | | BRIANNA CONNOLLY OF DEREK | [address] | [address] | | | TESTS | | | [...] + + | SONJA NICHOLAS | [address] [facility] [address] | [place], [place] | | | [facility] | [address] | [address] | | | TESTS | | | | + + + + + OPERATION RECORD (01/10/2013 8:03 AM PST) + + | Transcriptions | + + | Florencia Kathleen MD - 01/09/2013 7:00 PM PST Date: 01/08/2013 | | | | Attending Surgeon: Jesus Perez M.D. | | | | Radio Despatcher(s): Florencia Kathleen MD | | | | [...] Biosyn and Indermil. Previously, a | | 19-Niuean round Delvin drain was placed to the [...] | | ME / HS | | [id number] / [id number] / [id number] / | | | | | + [...] [facility] | [address] | [place] [address] | | | SERVICES, CORE | PARK [...] [facility] | [address] | [place] [address] | | | SERVICES, CORE | PARK [...] | + + + + + | [facility] | [address] | [place] [address] | | | YVETTE, DAVEY | TJ [...] [facility] | [address] | [place] [address] | | | SERVICES, CORE | PARK [...] | + + + + + | [facility] | [address] | [place] [address] | | | SERVICES, CORE | TJ [...] YU | [address] | [place], [place] | | | BRIANNA CONNOLLY OF [place] | [address] | [address] | | | TESTS | | | [...] | + + + + + | [facility] JASRUFUS | [address] [facility] [address] | [place], [place] | | | [facility] | [address] | [address] | | | TESTS | | | [...] with | | some debris. A 14 Niuean Chau catheter over a wire. | | [...] draped in the usual sterile fashion. A 16-Niuean flexible | | Olympus cystoscope was advanced [...] | | An attempt to pass a 14-Niuean catheter over the wire, was also unsuccessful. | | The wire was removed and the cystoscope was replaced. A superstiff wire was | | then advanced into the meatus and bladder. The cystoscope was advanced | | over the wire into the patient's bladder. The above findings were noted. | | The cystoscope was removed. A 14-Niuean Councill catheter was then placed | | [...] | | | | Drains: | | 14-Niuean Chau catheter. | | | | Disposition: | | [place] for General Surgery procedure | | | | | | Yahaira Doran M.D. | | JS / JUS | | [id number] / [id number] / [id number] / | | | | | + + CAPILLARY BLOOD GLUCOSE (NO CHG), POC (01/09/2013 12:36 PM PST) + +---------+ + + + | Component | Value | Ref Range | Performed | Pathologist | | | | | At | Signature | + +---------+ + + + | BLOOD | 168 (H) | 60 - 99 mg/dL | [facility] - | | | GLUCOSE, | [...] NICHOLAS | [address] | [place], [place] | | | CATHLEEN POINT OF CARE | [address] | [address] | | | TESTS | | | [...] [facility] | [address] | [place] [address] | | | SERVICES, CORE | PARK [...] | + + + + + | [facility] | [address] | [place] [address] | | | SERVICES, DAVEY | TJ [...] [facility] | [address] | [place] [address] | | | SERVICES, CORE | TJ [...] [facility] | [address] | [place] [address] | | | SERVICES, CORE | PARK [...] [facility] | [address] | [place] [address] | | | SERVICES, CORE | PARK [...] YU | [address] | [place], [place] | | | BRIANNA CONNOLLY OF [place] | [facility] | [address] | | | TESTS | | | [...] (H) | 60 - 99 mg/dL | [facility] - | | | GLUCOSE, | [...] NICHOLAS | [address] | [place], [place] | | | CATHLEEN POINT OF CARE | [address] | [address] | | | TESTS | | | | + + + + + X-RAY PORTABLE CHEST 1 VIEW (01/08/2013 7:12 PM PST) + + + + + + | Component | Value | Ref Range | Performed | Pathologist | | | | | At | Signature | + + + + + + | X-RAY | AL CHEST 1 VIEW, | | | | [...] | | + +---------+ + + | [facility] DEPARTMENT OF | | | | [...] | + + + + + | [facility]ORY | [address] | [place] [address] | | | SERVICES, CORE | PARK [...] [facility] | [address] | [place] [address] | | | SERVICES, CORE | PARK [...] | + + + + + | [facility] | [address] | [place] [address] | | | SERVICES, CORE | TJ [...] MARQUAM | [address] | [place], [place] | | | B[facility]NA [facility] [place] | [address] | [address] | | | TESTS | | | [...] EVELIAAM | [address] | [place], [place] | | | BRIANNA CONNOLLY OF CARE | [address] | [address] | | | TESTS | | | [...] YU | [address] | [place], [place] | | | BRIANNA CONNOLLY OF CARE | [address] | [address] | | | TESTS | | | [...] NICHOLAS | [address] | [place], [place] | | | [facility]RI[facility]NA CONNOLLY OF [facility] | [facility] | [address] | | | TESTS | | | [...] YU | [address] | [place], [place] | | | BRI[facility]NA CON[facility] [place] | [address] | [address] | | | TESTS | | | [...] YU | [address] | [place], [place] | | | BRIANNA CONNOLLY OF [place] | [facility] | [address] | | | TESTS | | | [...] NICHOLAS | [address] | [place], [place] | | | CATHLEEN POINT OF CARE | [address] | [address] | | | TESTS | | | [...] YU | [address] | [place], [place] | | | BRIANNA CONNOLLY OF [facility] | [address] | [address] | | | TESTS | | | [...] EVELIAAM | [address] | [place], [place] | | | BRIANNA CONNOLLY OF CARE | [address] | [address] | | | TESTS | | | [...] NICHOLAS | [address] | [place], [place] | | | BRIANNA CONNOLLY OF CARE | [address] | [address] | | | TESTS | | | [...] NICHOLAS | [address] | [place], [place] | | | BRIANNA CONNOLLY OF [place] | [address] | [address] | | | TESTS | | | [...] [facility] | [address] | [place] [address] | | | SERVICES, | [address] [...] | + + + + + | [facility] | [address] | [place] [address] | | | SERVICES, | [address] [...] NICHOLAS | [address] | [place], [place] | | | CATHLEEN POINT OF CARE | [address] | [address] | | | TESTS | | | [...] A | | | | | | tax representative section | | | | | [...] + + + + + | [facility] | [address] | [place] [address] | | | PATHOLOGY | [address] | | | + + + + + documented in this encounter Visit Diagnoses + + | Diagnosis | + + | Morbid obesity (HCC) Morbid obesity | + + documented in this encounter
--- OUTSIDE RECORDS SUMMARY | ~2020-04-13 | XMS | Encounter Summary ---
Demographics + + + | Address | [address] [facility] [address] | | | [place] [address] | + + + | Home Phone [...] + | Tico Burns | ECON | [address] | | | | | [place], [place] | | | | | [address] | | + + + + + Care Team Providers + +------+ + | Care Nurse Case Management Name | Role | Phone | [...] S/P partial | [address] | [address] [place], | | | | | gastrectomy | [place], [place] | [place] | | | | | Procedures | [address] | [address] | | | | | REQUEST TO | Phone: | Phone: | | | | | SURGERY | [phone] | [phone] | | | | | ENROLLMENT COUNSELOR | Fax: | Fax: | | | | | NM EXC SKIN | | | | | | | ABD NM EXC | | | | | | [...] + + + + | 02/28/ | Researcher | Dig[facility]ive [facility] | [place], | Pannus, abdominal | | 2012 | | [place] at 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
--- OUTSIDE RECORDS SUMMARY | ~2020-04-13 | XMS | Encounter Summary ---
Demographics + + + | Address | [address] [facility] | | | [place] [address] | + + + | Home Phone [...] + | Tico Burns | ECON | [address] | | | | | [place], [place] | | | | | [address] | | + + + + + Care Team Providers + +------+ + | Care Commercial Insulator Name | Role | Phone | + [...] | | | | | Procedures | [address] | Center for | | | | | CONSULT TO | [place], [place] | [facility] and | | | | | BARIATRIC | [address] | Healing, | | | | | SURGERY | Phone: | Building 2 | | | | | | [phone] | [place], [place] | | | | | | Fax: | [address] | | | | | | [phone] | Phone: | | | | | | | [phone] | | | | | | | Fax: | | | | | | | [phone] | +--------+--------+ + + + + Encounter Details +--------+---------+ + + + | Date | Type | Department | Care Team | Description | +--------+---------+ + + + | 01/30/ | Office | Digestive Health | Joaquina Tom, | Morbid obesity with | | 2017 | Visit | Center at [facility] [address] | [address] [facility] | BMI of 60.0-69.9, | | | | [address] [facility] | [address] | adult (HCC) (Primary | | | | for Health and | [place], [place] | Dx) | | | | [facility] 2 | [address] | | | | | [place], [place] | [phone] | | | | | [address] | | | | | | [phone] | | | +--------+---------+ + + + [...] Follow-Up Patient referred by: Moe Bella MD [facility] [address] [facility] [place] [address] Documented time of visit: 12:16 pm to 12:53pm (37 minutes [id number] with patient) Surgery: Sleeve Gastrectomy Date of [...] by a quart of water Dinner: ~6pm amharic rice, roth, pork, steamed carrots, drank 1-2 [...] a time; got bett er orthotics from fish worm grower - picks them up next week Hovering [...] Tom RD, CNSC, LD Clinical Dietitian Specialist [facility] Office: Email: [email or web address] Pager: [phone] documented in this en counter Plan of [...]
--- OUTSIDE RECORDS SUMMARY | ~2020-04-13 | XMS | Encounter Summary ---
Demographics + + + | Address | [address] [facility] | | | [place] [address] | + + + | Home Phone [...] + | Tico Burns | ECON | [address] | | | | | [place], [place] | | | | | [address] | | + + + + + Care Team Providers + +------+ + | Care Physical Security Specialist Name | Role | Phone | [...] Medical Records | | 2016 | | [place] at [facility] [address] | [address] [facility] | Review | | | | Renée [address] | [facility] | | | | | Mailcode: Rank[place] | [place], [place] | | | | | [facility] and | [address] | | | | | [facility] 2 | [phone] | | | | | [place], [place] | | | | | | [address] | | | | | | [phone] | | | +--------+ + + + [...]
--- OUTSIDE RECORDS SUMMARY | ~2020-04-13 | XMS | Encounter Summary ---
Demographics + + + | Address | [address] [facility] | | | [place] [address] | + + + | Home Phone [...] + | Tico Burns | ECON | [address] | | | | | [place], [place] | | | | | [address] | | + + + + + Care Team Providers + +------+ + | Care It Applications Manager Name | Role | Phone | [...] | Event | [address] | MD [address] | | | | | [facility] | [address] | | | | | Hospital Admitting | [place], [place] | | | | | Desk Located on the | [address] | | | | | 9th floor | [phone] | | | | | [place], [place] | | | | | | [address] | Tank Gibson RN | | | | | | [address] | | | | | | [address] | | | | | | [place], [place] | | | | | | [address] | | +--------+ + + + + [...]
--- OUTSIDE RECORDS SUMMARY | ~2020-04-13 | XMS | Encounter Summary ---
Demographics + + + | Address | [address] [facility] | | | [place] [address] | + + + | Home Phone [...] Author | [facility] | | | and [place] | + + + | Organization | [facility] | | | and aMdiana | + + + | Address | Unknown | + + + | Phone | Unavailable | + + + Support + + + + + | Name | Relationship | Address | Phone | + + + + + | Milady Burns | ECON | [address] | | | | | [place] | | | | | [address] | | + + + + + Care Team Providers + +------+ + | Care Paralegal Secretary Name | Role | Phone | + [...] | | [address] | [place] [address] | | | | | [place], [place] | [phone] | | | | | [address] | | | | | | [phone] | | | +--------+ + + + [...]
--- OUTSIDE RECORDS SUMMARY | ~2020-04-13 | XMS | Encounter Summary ---
Demographics + + + | Address | [address] [facility] | | | [place] [address] | + + + | Home Phone | | + + + | Preferred Language | Unknown | + + + | Marital Status | | + + + | Confucianist Affiliation | 1013 | + + + | Race | Unknown | + + + | Ethnic Group | Unknown | + + + Author + + + | Author | [facility] | | | and [place] | + + + | Organization | [facility] | | | and [place] | + + + | Address | Unknown | + + + | Phone | Unavailable | + + + Support + + + + + | Name | Relationship | Address | Phone | + + + + + | Milady Burns | ECON | [address] | | | | | [place] | | | | | [address] | | + + + + + Care Team Providers + +------+ + | Care Blade Balancer Name | Role | Phone | + [...] | | [address] | [place] [address] | | | | | [address] | [phone] | | | | | [address] | | | | | | [phone] | | | +--------+--------+ + + + [...]
--- OUTSIDE RECORDS SUMMARY | ~2020-04-13 | XMS | Encounter Summary ---
Demographics + + + | Address | [address] [facility] | | | [place] [address] | + + + | Home Phone | | + + + | Preferred Language | Unknown | + + + | Marital Status | | + + + | Mu-Ism Affiliation | 1013 | + + + | Race | Unknown | + + + | Ethnic Group | Unknown | + + + Author + + + | Author | [facility] | | | and [place] | + + + | Organization | [facility] | | | and [place] | + + + | Address | Unknown | + + + | Phone | Unavailable | + + + Support + + + + + | Name | Relationship | Address | Phone | + + + + + | Milady Burns | ECON | [address] | | | | | [place], [place] | | | | | [address] | | + + + + + Care Team Providers + +------+ + | Care Gas Regulator Repairer Name | Role | Phone | + [...] | | | [address] | [facility] | | | | | [place] | [address] | | | | | [address] | [address] | | | | | [phone] | | | +--------+ + + + [...]
--- OUTSIDE RECORDS SUMMARY | ~2020-04-13 | XMS | Encounter Summary ---
Demographics + + + | Address | [address] [facility] | | | [place] [address] | + + + | Home Phone | | + + + | Preferred Language | Unknown | + + + | Marital Status | | + + + | Confucianism Affiliation | 1013 | + + + | Race | Unknown | + + + | Ethnic Group | Unknown | + + + Author + + + | Author | [facility] | | | and [place] | + + + | Organization | [facility] | | | and [place] | + + + | Address | Unknown | + + + | Phone | Unavailable | + + + Support + + + + + | Name | Relationship | Address | Phone | + + + + + | Milady Burns | ECON | [address] | | | | | [place], [place] | | | | | [address] | | + + + + + Care Team Providers + +------+ + | Care Cafeteria Counter Attendant Name | Role | Phone | [...] W | | | | | [address] [facility] [address] | [facility] | | | | | [place] | [address] | | | | | [address] | [address] | | | | | [phone] | | | +--------+ + + + [...]
--- OUTSIDE RECORDS SUMMARY | ~2020-04-13 | XMS | Encounter Summary ---
Demographics + + + | Address | [address] [facility] | | | [place] [address] | + + + | Home Phone | | + + + | Preferred Language | Unknown | + + + | Marital Status | | + + + | Evangelical Affiliation | 1013 | + + + | Race | Unknown | + + + | Ethnic Group | Unknown | + + + Author + + + | Author | [facility] | | | and [place] | + + + | Organization | [facility] | | | and [place] | + + + | Address | Unknown | + + + | Phone | Unavailable | + + + Support + + + + + | Name | Relationship | Address | Phone | + + + + + | Milady Burns | ECON | [address] | | | | | [place], [place] | | | | | [address] | | + + + + + Care Team Providers + +------+ + | Care Peeler Operator Name | Role | Phone | + +------+ + PCP | Unavailable | + +------+ + Encounter Details +--------+ + + + + | Date | Type | Department | Care Team | Description | +--------+ + + + + | 01/21/ | Hospital | [facility] | Conversion | | | 2011 | Encounter | [facility] | Transaction, | | | | | [address] | Provider Unknown | | | | | [place] | | | | | | [address] | | | | | | [phone] | | | +--------+ + + + [...]
--- OUTSIDE RECORDS SUMMARY | ~2020-04-13 | XMS | Encounter Summary ---
Demographics + + + | Address | [address] [facility] | | | [place] [address] | + + + | Home Phone [...] [place], [place] | | | | | [address] | | + + + + + Care Team Providers + +------+ + | Care Event Promotions Coordinator Name | Role | Phone | + +------+ + | Moe Bella MD | PCP | | + +------+ + Encounter Details +--------+ + + + + | Date | Type | Department | Care Team | Description | +--------+ + + + + | 09/12/ | Abstract | Digestive Health | Jesus Perez, | | | 2012 | | [place] at [facility] [address] | [address] | | | | | Renée [address]nam | [address] | | | | | Mailcode: Center | [place], [place] | | | | | [facility] and | [address] | | | | | [facility], [place] [address] | [phone] | | | | | [place], [place] | | | | | | [address] | | | | | | [phone] | | | +--------+ + + + [...]
--- OUTSIDE RECORDS SUMMARY | ~2020-04-13 | XMS | Encounter Summary ---
Demographics + + + | Address | [address] [facility] | | | [place] [address] | + + + | Home Phone [...] + | Tico Burns | ECON | [address] | | | | | [place], [place] | | | | | [address] | | + + + + + Care Team Providers + +------+ + | Care Professional Volleyball Player Name | Role | Phone | + +------+ + | Moe Bella MD | PCP | | + +------+ + Encounter Details +--------+ + + + + | Date | Type | Department | Care Team | Description | +--------+ + + + + | 09/12/ | Abstract | Digestive Health | Jesus Perez, | | | 2012 | | [facility] [address] | [address] | | | | | [address] | [address] | | | | | Mailcode: Center | [place], [place] | | | | | [facility] and | [address] | | | | | [facility], [place] [address] | [phone] | | | | | [place], [place] | | | | | | [address] | | | | | | [phone] | | | +--------+ + + + [...]
--- OUTSIDE RECORDS SUMMARY | ~2020-04-13 | XMS | Encounter Summary ---
Demographics + + + | Address | [address] [facility] | | | [place] [address] | + + + | Home Phone [...] [place], [place] | | | | | [address] | | + + + + + Care Team Providers + +------+ + | Care Cutter Woodwind Reeds Name | Role | Phone | + [...] | | | (HCC) Type | [place] | [address] | | | | | II or | [address] | Center for | | | | | unspecified | [place], | Health and | | | | | type | [place] [address] | Healing, | | | | | diabetes | Phone: | Building 2 | | | | | mellitus | [phone] | [place], [place] | | | | | without | Fax: | [address] | | | | | mention of | [phone] | Phone: | | | | | complication | | [phone] | | | | | , not stated | | Fax: | | | | | as | | [phone] | | | | | uncontrolled | | | +--------+--------+ + + + + Encounter Details +--------+---------+ + + + | Date | Type | Department | Care Team | Description | +--------+---------+ + + + | 01/30/ | Office | Digestive Health | Kristine Diaz, | DM (diabetes | | 2013 | Visit | Center at [facility] [address] | mellitus) ([facility]) | | | | [address] [facility] | [address] | (Primary Dx); BMI 70 | | | | for Health and | [place], [place] | and over, adult | | | | [facility] 2 | [address] | ([facility]) | | | | [place], [place] | | | | | | [address] | | | | | | [phone] | | | +--------+---------+ + + + [...] Follow-Up Patient referred by: Moe Bella MD [facility] [address] [place] [address] Documented time of visit: 8:30-8:51 (21 minutes [...] units to 4-10 units w/ meals. 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 [...] [address], LD Pager [phone] documented in this en counter Plan of Treatment Not on filedocumented as of this encounter Procedures + +--------+ + + + | Procedure Name | Priori | Date/Time | Associated Diagnosis | Comments | | | ty | | | | + +--------+ + + + | IA MNT RE-ASSESSMNT | Routin | 01/30/2013 | DM (diabetes | | | X15MIN | e | 8:57 AM | mellitus) ([facility]) BMI | | | | | PDT | 70 and over, adult | | | | | | ([facility]) | | + +--------+ + + + documented in this encounter Visit Diagnoses + + | Diagnosis | + + | DM (diabetes mellitus) ([facility]) - Primary Type II or unspecified type diabetes mellitus | | without mention of complication, not stated as uncontrolled | + + | BMI 70 and over, adult (HCC) Body Mass Index 70 and over, adult | + + documented in this encounter
--- OUTSIDE RECORDS SUMMARY | ~2020-04-13 | XMS | Encounter Summary ---
Demographics + + + | Address | [address] [facility] | | | [place] [address] | + + + | Home Phone [...] [place], [place] | | | | | [address] | | + + + + + Care Team Providers + +------+ + | Care Director Occupational Name | Role | Phone | + [...] Medical Records | | 2016 | | [place] at [facility] [address] | [address] [facility] | Review | | | | [address] | [facility] | | | | | Mailcode: [place] | [place], [place] | | | | | [facility] and | [address] | | | | | [facility] 2 | [phone] | | | | | [place], [place] | | | | | | [address] | | | | | | [phone] | | | +--------+ + + + [...]
--- OUTSIDE RECORDS SUMMARY | ~2020-04-13 | XMS | Encounter Summary ---
Demographics + + + | Address | [address] [facility] | | | [place] [address] | + + + | Home Phone [...] + | Tico Burns | ECON | [address] | | | | | [place], [place] | | | | | [address] | | + + + + + Care Team Providers + +------+ + | Care Switchboard Operator Helper Name | Role | Phone [...] | | 2011 | | Center at [facility] [address] | [employer] [address] | | | | | [address] | [facility] 350 | | | | | Mailcode: Center | [place], [place] | | | | | for Health and | [address] | | | | | [facility], [facility] 2 | [phone] | | | | | [place], [place] | | | | | | [address] | | | | | | [phone] | | | +--------+ + + + [...]
--- OUTSIDE RECORDS SUMMARY | ~2020-04-13 | XMS | Encounter Summary ---
Demographics + + + | Address | [address] [facility] | | | [place] [address] | + + + | Home Phone [...] + | Tico Burns | ECON | [address] | | | | | [place], [place] | | | | | [address] | | + + + + + Care Team Providers + +------+ + | Care Director Of Provider Relations Name | Role | Phone | + [...] over, | | 2012 | Visit | [place] at [facility] [address] | [address] [facility] | adult ([facility]) (Primary | | | | [address] | [address] | Dx); Morbid obesity | | | | Mailcode: [place] | [place], [place] | ([facility]); S/P gastric | | | | for Health and | [address] | bypass | | | | [facility], [facility] 2 | [phone] | | | | | [place], [place] | | | | | | [address] | | | | | | [phone] | | | +--------+---------+ + + + [...] and plan of care. HARPREET FENTON MD [facility] BARIATRIC SURGERY [address] Mailcode: [place] [phone] Oc Giraldo MD - 01/30/2013 9:24 AM PDT BARIATRIC SURGERY CLINIC PROGRESS NOTE: 01/30/2013 Attending Physician: Logan Fenton MD Author: Oc Bee MD; Bariatric Fellow, Pager [phone] CC: 2wk f/u bariatric surg Surgical Issue(s): [...] have provided this gentleman with a l aanstasiya for work. 2. RTC 4 wks for 6wk f/u. Dr. Arellano has personally interviewed and examined the patient, and concurs with the ass essment, exam and plan. Oc Bee MD MIS/Bariatric Fellow, Pager [phone] [facility] Current Outpatient Prescriptions on File Prior [...] + | BMI 70 and over, adult ([facility]) - Primary Body Mass Index 70 and over, adult | + + | Morbid obesity ([facility]) Morbid obesity | + + | S/P gastric bypass Bariatric surgery status | + + documented in this encounter
--- OUTSIDE RECORDS SUMMARY | ~2020-04-13 | XMS | Encounter Summary ---
Demographics + + + | Address | [address] [facility] | | | [place] [address] | + + + | Home Phone [...] + | Tico Burns | ECON | [address] | | | | | [place], [place] | | | | | [address] | | + + + + + Care Team Providers + +------+ + | Care Furnace Stock Inspector Name | Role | Phone | [...] | | | | (HCC) Type | [place] | [address] | | | | | II or | [address] | Center for | | | | | unspecified | [place], | Health and | | | | | type | [place] [address] | Healing, | | | | | diabetes | Phone: | Building 2 | | | | | mellitus | [phone] | [place], [place] | | | | | without | Fax: | [address] | | | | | mention of | [phone] | Phone: | | | | | complication | | [phone] | | | | | , not stated | | Fax: | | | | | as | | [phone] | | | | | uncontrolled | | | +--------+--------+ + + + + Encounter Details +--------+---------+ + + + | Date | Type | Department | Care Team | Description | +--------+---------+ + + + | 01/30/ | Office | Digestive Health | Kristine Diaz, | DM (diabetes | | 2013 | Visit | Center at [facility] [address] | [address] | mellitus) ([facility]) | | | | [facility] | [address] | (Primary Dx); BMI 70 | | | | for Health and | [place], [place] | and over, adult | | | | [facility] 2 | [address] | ([facility]) | | | | [place], [place] | | | | | | [address] | | | | | | [phone] | | | +--------+---------+ + + + [...] Follow-Up Patient referred by: Moe Bella MD [facility] [address] [place] [address] Documented time of visit: 8:30-8:51 (21 minutes [...] units to 4-10 units w/ meals. Sees coding team lead in about a month to recheck labs. [...] [address], LD Pager [phone] documented in this en counter Plan of [...] | 8:57 AM | mellitus) ([facility]) BMI | | | | | PDT | 70 and over, adult | | | | | | ([facility]) | | + +--------+ + + + documented in this encounter Visit Diagnoses + + | Diagnosis | + + | DM (diabetes mellitus) ([facility]) - Primary Type II or unspecified type diabetes mellitus | | without mention of complication, not stated as uncontrolled | + + | BMI 70 and over, adult (HCC) Body Mass Index 70 and over, adult | + + documented in this encounter
--- OUTSIDE RECORDS SUMMARY | ~2020-04-13 | XMS | Encounter Summary ---
Demographics + + + | Address | [address] [facility] | | | [place] [address] | + + + | Home Phone [...] [place], [place] | | | | | [address] | | + + + + + Care Team Providers + +------+ + | Care Driver'S Education Instructor Name | Role | Phone | + +------+ + | Moe Bella MD | PCP | | + +------+ + Encounter Details +--------+ + + + + | Date | Type | Department | Care Team | Description | +--------+ + + + + | 04/29/ | Telephone | Digestive Health | Jesus Perez, | | | 2012 | | [place] [address] | [address] | | | | | [place] Mailcode: CH4S | [facility] | | | | | [facility] | [place], [place] | | | | | and Healing, | [address] | | | | | [address] | [phone] | | | | | Floor [place], [place] | | | | | | [address] | | | | | | [phone] | | | +--------+ + + + [...]
--- OUTSIDE RECORDS SUMMARY | ~2020-04-13 | XMS | Encounter Summary ---
Demographics + + + | Address | [address] [facility] | | | [place] [address] | + + + | Home Phone [...] + | Tico Burns | ECON | [address] | | | | | [place], [place] | | | | | [address] | | + + + + + Care Team Providers + +------+ + | Care Marketing Pr Intern Name | Role | Phone | [...] | | | [place] Mailcode: CH4S | [facility] | | | | | [facility] | [place], [place] | | | | | and Healing, | [address] | | | | | [address] | [phone] | | | | | Floor [place], [place] | | | | | | [address] | | | | | | [phone] | | | +--------+ + + + [...]
--- OUTSIDE RECORDS SUMMARY | ~2020-04-13 | XMS | Encounter Summary ---
Demographics + + + | Address | [address] [facility] | | | [place] [address] | + + + | Home Phone [...] [place], [place] | | | | | [address] | | + + + + + Care Team Providers + +------+ + | Care Police Specialist Name | Role | Phone | [...] at [facility] [address] | PLANT BUYER [address] | | | | | [address] | [facility] 350 | | | | | Mailcode: Center | [place], [place] | | | | | for Health and | [address] | | | | | [facility], [facility] 2 | [phone] | | | | | [place], [place] | | | | | | [address] | | | | | | [phone] | | | +--------+ + + + [...]
--- OUTSIDE RECORDS SUMMARY | ~2020-04-13 | XMS | Encounter Summary ---
Demographics + + + | Address | [address] [facility] | | | [place] [address] | + + + | Home Phone [...] | Organization | [facility] | | | and [place] | + + + | Address | Unknown | + + + | Phone | Unavailable | + + + Support + + + + + | Name | Relationship | Address | Phone | + + + + + | Milady Burns | ECON | [address] | | | | | [place], [place] | | | | | [address] | | + + + + + Care Team Providers + +------+ + | Care Liaison Engineer Name | Role | Phone | + +------+ + PCP | Unavailable | + +------+ + Encounter Details +--------+ + + + + | Date | Type | Department | Care Team | Description | +--------+ + + + + | 01/21/ | Hospital | [facility] | Conversion | | | 2011 | Encounter | [facility] [address] | Transaction, | | | | | [address] | Provider Unknown | | | | | [place] | | | | | | [address] | | | | | | [phone] | | | +--------+ + + + [...]
--- OUTSIDE RECORDS SUMMARY | ~2020-04-13 | XMS | Encounter Summary ---
Demographics + + + | Address | [address] [facility] | | | [place] [address] | + + + | Home Phone [...] + | Tico Burns | ECON | [address] | | | | | [place], [place] | | | | | [address] | | + + + + + Care Team Providers + +------+ + | Care Generating Station Mechanic Name | Role | Phone | [...] + | 01/08/ | Hospital | [facility] [address] | Jesus Perez, | | | 2013 - | Encounter | [address] | [place] [address] [facility] | | | | | [place], [place] | [address] | | | 01/11/ | | [address] | [place], [place] | | | 2012 | | [phone] | [address] | | | | | | [phone] | | | | | | | [...] narcotic pain medications, please call the clinic ([phone] ) by 2 pm on for any [...] during the day time hours by calling [facility] surgery office at [phone] - After hours, weekends and holidays, you may call the hospital blacktop paver operator at [phone] an d have the bus matron Green Team for general surgery paged. Constipation [...] add ress. Zahra Dong MD, PGY1 Anesthesia Ceramic Tile Installer Pager [phone] Florencia Ivy MD - 01/10/2013 7:49 AM PSTSURGERY INPATIENT PROGRESS NOTE Hospital Day:2 Author; FLORENCIA KATHLEEN MD, MIS/Bariatric Fellow, Pager [phone] Attending Physician: Jeuss Perez MD Surgical Issues: POD#2 s/p converted [...] BLOCK PROGRESS NOTE 01/10/2013 Author: Stephanie Horan BUSINESS LIAISON OFFICER POD# 2. Status post: 1. Attempted [...] and recommendations with primary care team provider [facility] RESHMA bey Surgery. . For today's evaluation, I have included my personal review of Mr. Burns's history and ph ysical examination. I also used the following components in my medical decision making: Laboratory studies reviewed. Review and summary of old medical records (source: [employer]), as summarized in the body of the note. Stephanie Horan NP Adult Pain Service Pager [phone] Team Pager [phone] BILLING INFORMATION [facility] DEPARTMENT: [id number] Place of Service:- Inpatient Date of Service: 01/10/2013 CSN: [id number] Suggested Modifier: None Suggested CPT: 71919 - Daily mgmt epidural/subarachnoid drug administration Prolonged service: n/a Florencia Ivy MD - 01/09/2013 12:53 PM PSTSURGERY INPATIENT PROGRESS NOTE Hospital Day:1 Author; FLORENCIA KATHLEEN MD, MIS/Bariatric Fellow, Pager [phone] Attending Physician: Jesus Perez MD Surgical Issues: [...] days. Epidural per APS. Kalina Adame AC BUSINESS LIAISON OFFICER - 01/09/2013 11:29 AM PST Inpatient [...] - requires acute care CRISTIN HOBSON [facility] [address] [facility] [place] [address] This assessment and plan was formulated both [...] studies reviewed. STEPHANIE HORAN NP BILLING INFORMATION [facility] DEPARTMENT: [id number] Place of Service:- Inpatient Date of Service: 01/09/2013 CSN: [id number] Suggested Modifier: None Suggested CPT: 24503 - Daily mgmt epidural/subarachnoid drug administration Prolonged service: n/a Hedy Villa - 2012 6:46 AM PSTMedical student progress note Overnight events/S: Mr. Burns is feeling well this morning. He did not get a lot of sle ep due to noise on the floor, but his pain (2/10, achy pain around incision site) is well co ntrolled and he is only using his DETECTIVE HOMICIDE SQUAD pump about once an hour. He has [...] oral meds and tolerating PO. Hedy Wood [id number] signed by CRISTIN Hobson at 01/10/2013 12:06 [...] RT Continue current care. Alfonso Sousa MD Noxious Weeds And Pest Inspector, PGY-1 Pager: [phone] [facility] [place] [phone] ung, MD Yahaira - 01/08/2013 3:37 PM [...] BLADDER | ve | 12:45 PM | ([facility]) | | | HYDRODISTENSION | Surgic | [...] - YU | [address] | [place], [place] | | | [facility] | [facility] | [address] | | | TESTS | | | [...] [facility] | [address] | [place] [address] | | | SERVICES, CORE | PARK [...] [facility] | [address] | [place] [address] | | | SERVICES, CORE | PARK [...] | + + + + + | [facility] | [address] | [place] [address] | | | SERVICES, CORE | TJ [...] [facility] | [address] | [place] [address] | | | SERVICES, CORE | PARK [...] | + + + + + | [facility] | [address] | [place] [address] | | | SERVICES, CORE | TJ [...] YU | [address] | [place], [place] | | | BRIANNA CONNOLLY OF [place] | [address] | [address] | | | TESTS | | | [...] SONJA NICHOLAS | [address] | [place] | | | [facility] | [address] | [address] | | | TESTS | | | | + + + + + OPERATION RECORD (01/10/2013 8:03 AM PST) + + | Transcriptions | + + | Florencia Kathleen MD - 01/09/2013 7:00 PM PST Date: 01/08/2013 | | | | Attending Surgeon: Jesus Perez M.D. | | | | Event Producer(s): Florencia Kathleen MD | | | | [...] Biosyn and Indermil. Previously, a | | 19-Bermudian round Delvin drain was placed to the [...] | | | | | | Florencia Kathlene MD | | | | | | Jesus Deveney, M.D. | | | | [place] / HS | | [id number] / [id number] / [id number] / | | | | | + [...] [facility] | [address] | [place] [address] | | | SERVICES, CORE | TJ [...] [facility] | [address] | [place] [address] | | | SERVICES, CORE | PARK [...] | + + + + + | [facility] | [address] | [place] [address] | | | SERVICES, CORE | TJ [...] [facility] | [address] | [place] [address] | | | SERVICES, CORE | PARK [...] + + + + + | [facility] | [address] | [place] [address] | | | SERVICES, CORE | TJ [...] | 60 - 99 mg/dL | [facility] - | | | GLUCOSE, | [...] NICHOLAS | [address] | [place] | | | CATHLEEN POINT OF CARE | [address] | [address] | | | TESTS | | | [...] [place] | [address] | [place] | | | BRIANNA CONNOLLY OF CARE | [address] | [address] | | | TESTS | | | [...] with | | some debris. A 14 Bermudian Chau catheter over a wire. | | [...] draped in the usual sterile fashion. A 16-Bermudian flexible | | Olympus cystoscope was advanced [...] | | An attempt to pass a 14-Bermudian catheter over the wire, was also unsuccessful. | | The wire was removed and the cystoscope was replaced. A superstiff wire was | | then advanced into the meatus and bladder. The cystoscope was advanced | | over the wire into the patient's bladder. The above findings were noted. | | The cystoscope was removed. A 14-Bermudian Councill catheter was then placed | | [...] | | | | Drains: | | 14-Bermudian Chau catheter. | | | | Disposition: | | [place] for General Surgery procedure | | | | | | Yahaira Doran M.D. | | JS / HS | | [id number] / [id number] / [id number] / | | | | | + [...] YU | [address] | [place], [place] | | | [facility] | [facility] | [address] | | | TESTS | | | [...] [facility] | [address] | [place] [address] | | | SERVICES, CORE | PARK [...] | + + + + + | [facility] | [address] | [place] [address] | | | SERVICES, CORE | TJ [...] [facility] | [address] | [place] [address] | | | SERVICES, CORE | PARK [...] LABORATORY | [address] | [place] [address] | | | SERVICES, CORE | PARK [...] | + + + + + | [facility] | [address] | [place] [address] | | | YVETTE, DAVEY | TJ [...] YU | [address] | [place], [place] | | | [facility] [place] | [facility] | [address] | | | TESTS | | | [...] | 60 - 99 mg/dL | [facility] - | | | GLUCOSE, | [...] NICHOLAS | [address] | [place] | | | [facility] | [address] | [address] | | | TESTS | | | | + + + + + X-RAY PORTABLE CHEST 1 VIEW (01/08/2013 7:12 PM PST) + + + + + + | Component | Value | Ref Range | Performed | Pathologist | | | | | At | Signature | + + + + + + | X-RAY | [place] CHEST 1 VIEW, | | | | [...] | + + + + + | [facility] | [address] | [place] [address] | | | SERVICES, CORE | TJ BULLOCK | | | + + + + + MAGNESIUM, PLASMA (01/08/2013 6:36 PM PST) + +---------+ + + + | Component | Value | Ref Range | Performed | Pathologist | | | | | At | Signature | + +---------+ + + + | MAGNESIUM,P | 1.7 (L) | 1.8 - 2.5 mg/dL | [facility] | | | LASMA | | | [...] | + + + + + | [facility] | [address] | [place] [address] | | | SERVICES, CORE | PARK [...] | + + + + + | [facility] | [address] | [place] [address] | | | SERVICES, CORE | TJ [...] YU | [address] | [place], [place] | | | B[facility]NA CON[facility]LLY [facility] [place] | [facility] | [address] | | | TESTS | | | [...] NICHOLAS | [address] | [place] | | | B[facility]NA CON[facility] [place] | [address] | [address] | | | TESTS | | | [...] YU | [address] | [place] | | | [facility]NA [facility] [place] | [facility] | [address] | | | TESTS | | | [...] YU | [address] | [place], [place] | | | [facility]NA [facility] [place] | [address] | [address] | | | TESTS | | | [...] NICHOLAS | [address] | [place] | | | [facility]NA [facility] [place] | [facility] | [address] | | | TESTS | | | [...] [place] | | | [facility] | [address] | [address] | | | TESTS | | | [...] [place] | [address] | [place] | | | BRI[facility]NA CON[facility]LLY [facility] [place] | [facility] | [address] | | | TESTS | | | [...] NICHOLAS | [address] | [place] | | | CATHLEEN POINT OF CARE | [address] | [address] | | | TESTS | | | [...] MARQUAM | [address] | [place], [place] | | | BRIANNA CONNOLLY OF CARE | [address] | [address] | | | TESTS | | | [...] NICHOLAS | [address] | [place] | | | BRIANNA CONNOLLY OF CARE | [address] | [address] | | | TESTS | | | [...] | [facility] | [address] | [place] | | | CATHLEEN POINT OF CARE | [address] | [address] | | | TESTS | | | [...] [facility] | [address] | [place] [address] | | | SERVICES, | [address] [...] + + + + + | [facility] | [address] | [place] [address] | | | SERVICES, | [address] [...] | 60 - 99 mg/dL | [facility] - | | | GLUCOSE, | [...] NICHOLAS | [address] | [place] | | | B[facility]NA CON[facility]LLY [facility] | [address] | [address] | | | TESTS | | | [...] A | | | | | | international sales representative section | | | | [...] | + + + + + | [facility] | [address] | [place] [address] | | | PATHOLOGY | [address] | | | + + + + + documented in this encounter Visit Diagnoses + + | Diagnosis | + + | Morbid obesity (HCC) - Primary Morbid obesity | + + | Depression Depressive disorder, not elsewhere classified | + + | BMI 70 and over, adult ([facility]) Body Mass Index 70 and over, adult | + + | DM (diabetes mellitus) ([facility]) Type II or unspecified type [...]
--- OUTSIDE RECORDS SUMMARY | ~2020-04-13 | XMS | Encounter Summary ---
Demographics + + + | Address | [address] | | | [place] [address] | + + + | Home Phone | | + + + | Preferred Language | Unknown | + + + | Marital Status | | + + + | Orthodox Affiliation | 1013 | + + + | Race | Unknown | + + + | Ethnic Group | Unknown | + + + Author + + + | Author | [facility] | | | and [place] | + + + | Organization | [facility] | | | and [place] | + + + | Address | Unknown | + + + | Phone | Unavailable | + + + Support + + + + + | Name | Relationship | Address | Phone | + + + + + | Milady Burns | ECON | [address] | | | | | [place] | | | | | [address] | | + + + + + Care Team Providers + +------+ + | Care Shelter Director Name | Role | Phone | [...] | | [address] | [place] [address] | | | | | [place] | [phone] | | | | | [address] | | | | | | [phone] | | | +--------+ + + + [...]
--- OUTSIDE RECORDS SUMMARY | ~2020-04-13 | XMS | Encounter Summary ---
Demographics + + + | Address | [address] | | | [place] [address] | + + + | Home Phone | | + + + | Preferred Language | Unknown | + + + | Marital Status | | + + + | Roman Catholic Affiliation | 1013 | + + + | Race | Unknown | + + + | Ethnic Group | Unknown | + + + Author + + + | Author | [facility] | | | and Madiana | + + + | Organization | [facility] | | | and [place] | + + + | Address | Unknown | + + + | Phone | Unavailable | + + + Support + + + + + | Name | Relationship | Address | Phone | + + + + + | Milady Burns | ECON | [address] | | | | | [place], [place] | | | | | [address] | | + + + + + Care Team Providers + +------+ + | Care Gill Box Fixer Name | Role | Phone | + [...] W | | | | | [address] [facility] [address] | [facility] | | | | | [place] | [address] | | | | | [address] | [address] | | | | | [phone] | | | +--------+ + + + [...]
--- OUTSIDE RECORDS SUMMARY | ~2020-04-13 | XMS | Encounter Summary ---
Demographics + + + | Address | [address] | | | [place] [address] | + + + | Home Phone | | + + + | Preferred Language | Unknown | + + + | Marital Status | | + + + | Faith Affiliation | CHR | + + + [...] + | Tico Burns | ECON | [address] | | | | | [place], [place] | | | | | [address] | | + + + + + Care Team Providers + +------+ + | Care Culinary Arts Teacher Name | Role | Phone | [...] | Required | Metabolism | obesity | [address] | | | | | (HCC) | [address], | Ave | | | | | Depression | [address] | [place], [place] | | | | | BMI 70 and | [place] | [address] | | | | | over, adult | [address] | Phone: | | | | | ([facility]LY [facility]) | Phone: | [phone] | | | | | Procedures | [phone] | Fax: | | | | | CONSULT TO | Fax: | [phone] | | | | | ENDO | [phone] | | | | | | [address] | | | | | | | [address] | | | | | | | | | | | | | | [address] | | | +--------+ + + + + + Consultation (Routine) +--------+--------+ + + + + | Status | Reason | Specialty | Diagnoses / | Referred By | Referred To | | | | | Procedures | Contact | Contact | +--------+--------+ + + + + | Closed | | Pain | Diagnoses | Conser, | Express Clerk Psych | | | | Management | Morbid | Violetta M BUSINESS SYSTEMS MANAGER | [address] | | | | | obesity | [address] | | | | | ([facility]) | [address], | Mailcode: | | | | | Depression | [address] | [facility] | | | | | Procedures | [place], [place] | for Health | | | | | CONSULT TO | [address] | and Healing, | | | | | PAIN CENTER | Phone: | Building 1, | | | | | | [phone] | 15th Floor | | | | | | Fax: | [place], [place] | | | | | | [phone] | [address] | | | | | | | Phone: | | | | | | | [phone] | | | | | | | Fax: | | | | | | | [phone] | +--------+--------+ + + + + Reason [...] | | | | (HCC) Type | [place] [address] | | | | | II or | [address] | Mailcode: | | | | | unspecified | [place], | [facility] | | | | | type | [place] [address] | Health and | | | | | diabetes | Phone: | Healing, | | | | | mellitus | [phone] | Building 2 | | | | | without | Fax: | [place], [place] | | | | | mention of | [phone] | [address] | | | | | complication | | Phone: | | | | | , not stated | | [phone] | | | | | as | | Fax: | | | | | uncontrolled | | [phone] | +--------+--------+ + + + + Encounter Details +--------+---------+ + + + | Date | Type | Department | Care Team | Description | +--------+---------+ + + + | 06/10/ | Office | Digestive Health | Violetta Byers, | Morbid obesity (HCC) | | 2011 | Visit | Center at [address] | BUSINESS SYSTEMS MANAGER [address] | (Primary Dx); | | | | [address] | , [address] | Depression; BMI 70 | | | | Mailcode: Center | [place], [place] | and over, adult | | | | for Health and | [address] | ([facility]); | | | | Healing, Building 2 | [phone] | Nephrolithiasis; DM | | | | [place], [place] | | (diabetes mellitus) | | | | [address] | | ([facility]); Hypertension; | | | | [phone] | | Hyperlipidemia; | | | | [...] Psychological Evaluation: If your referral is at [facility], pain management will call you in the next week to schedule. 4. Sleep study: Please undergo a sleep study and have notes/tests faxed to us. 5. Cardiology Consult: A cardiology provider needs to evaluate your cardiac function and le t us know if you can proceed with with bariatric surgery. 6. Please call [facility] ([phone]) and have them send you a urine [...] insurance authorization then schedule with the [place] [address] Potential Contraindications to Bariatric Surgery Age over [...] other providers does not guarantee that the [facility] Bariatric Surger y program will deem you a surgical candidate. documented in this encounter Progress Notes Violetta Byers NP - 06/10/2012 1:26 PM PDTFormatting of this note might be different fr om the original. BARIATRIC INITIAL VISIT Provider: ELIZABTEH June Referring Provider: Dr. 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 Eyes/Ears/Nose/Throat: Denies visual [...] history of lower extremity edema. Denies CHF, [place], ischemic hea rt disease, DVT/PE, or pulmonary [...] 1. Previous gastric bypass attempt done in [place], the op-report is scanned into [employer] for review. Part of jejunum was removed [...] future. Pt already has plastic surgeon in [place] he is working with. 6. Nephrolithiasis, recurrent [...] Psychological Evaluation: If your referral is at [facility], pain management will call you in the next week to schedule. 4. Sleep study: Please undergo a sleep study and have notes/tests faxed to us. 5. Cardiology Consult: A cardiology provider needs to evaluate your cardiac function and le t us know if you can proceed with with bariatric surgery. 6. Please call [facility] ([phone]) and have them send you a urine [...] authorization then schedule with the surgeon. Violetta [facility] [address] [place] [address] Potential Contraindications to Bariatric Surgery Age over [...] other providers does not guarantee that the [facility] Bariatric Surger y program will deem [...] | BMI 70 and over, adult ([facility]) Body Mass Index 70 and over, adult | + + | Nephrolithiasis Calculus of kidney | + + | DM (diabetes mellitus) ([facility]) Type II or unspecified type diabetes mellitus without | | mention of complication, not stated as uncontrolled | + + | Hypertension Unspecified essential hypertension | + + | Hyperlipidemia Other and unspecified hyperlipidemia | + + | Panniculitis Panniculitis, unspecified site | + + | Edema | + + documented in this encounter
--- OUTSIDE RECORDS SUMMARY | ~2020-04-13 | XMS | Encounter Summary ---
Demographics + + + | Address | [address] [facility] [address] | | | [place] [address] | + + + | Home Phone [...] + | Tico Burns | ECON | [address] | | | | | [place], [place] | | | | | [address] | | + + + + + Care Team Providers + +------+ + | Care Wire Saw Operator Name | Role | Phone [...] Follow-up | | 2012 | Visit | [place] at [facility] [address] | [address] [facility] | examination after | | | | [address] | [address] | gastrointestinal | | | | Mailcode: Center | [place], [place] | surgery (Primary Dx) | | | | for Health and | [address] | | | | | [facility] 2 | [phone] | | | | | [place], [place] | | | | | | [address] | | | | | | [phone] | | | +--------+---------+ + + + [...] CENTER [address] Mailcode: [place] [address] Salvatore Felipe MD - 05/15/2013 [...]
--- OUTSIDE RECORDS SUMMARY | ~2020-04-13 | XMS | Encounter Summary ---
Demographics + + + | Address | [address] [facility] | | | [place] [address] | + + + | Home Phone [...] + | Tico Burns | ECON | [address] | | | | | [place], [place] | | | | | [address] | | + + + + + Care Team Providers + +------+ + | Care Manager Home Name | Role | Phone | + +------+ + | Moe Bella MD | PCP | | + +------+ + Encounter Details +--------+ + + + + | Date | Type | Department | Care Team | Description | +--------+ + + + + | 12/18/ | Abstract | Digestive Health | Violetta Byers, | | | 2012 | | Center at [facility] [address] | SPECIAL INSPECTOR [address] | | | | | [address] | [facility] [address] | | | | | Mailcode: Center | [place], [place] | | | | | for Health and | [address] | | | | | [facility], [facility] 2 | [phone] | | | | | [place], [place] | | | | | | [address] | | | | | | [phone] | | | +--------+ + + + [...]
--- OUTSIDE RECORDS SUMMARY | ~2020-04-13 | XMS | Encounter Summary ---
Demographics + + + | Address | [address] | | | [place] [address] | + + + | Home Phone [...] + | Tico Burns | ECON | [address] | | | | | [place], [place] | | | | | [address] | | + + + + + Care Team Providers + +------+ + | Care Sociology Adjunct Instructor Name | Role | Phone | + +------+ + | Moe Bella MD | PCP | | + +------+ + Encounter Details +--------+ + + + + | Date | Type | Department | Care Team | Description | +--------+ + + + + | 09/12/ | Abstract | Digestive Health | Jesus Perez, | | | 2012 | | [place] at [facility] [address] | [address] | | | | | [address] | [address] | | | | | Mailcode: Center | [place], [place] | | | | | [facility] and | [address] | | | | | [facility] [place] [address] | [phone] | | | | | [place], [place] | | | | | | [address] | | | | | | [phone] | | | +--------+ + + + [...]
--- OUTSIDE RECORDS SUMMARY | ~2020-04-13 | XMS | Encounter Summary ---
Demographics + + + | Address | [address] [facility] | | | [place] [address] | + + + | Home Phone [...] + + + | Author | [facility] | + + + | Organization | [facility] | + + + | Address | Unknown | + + + | Phone | Unavailable | + + + Support + + + + + | Name | Relationship | Address | Phone | + + + + + | Tico Burns | ECON | [address] | | | | | [place], [place] | | | | | [address] | | + + + + + Care Team Providers + +------+ + | Care Flat Clothier Name | Role | Phone | + [...] + + | 04/11/ | Hospital | [facility] [address] | Jesus Fenton, | | | 2013 - | Encounter | [address] | [place] [address] [facility] | | | | | [place], [place] | [address] | | | 04/14/ | | [address] | [place], [place] | | | 2012 | | [phone] | [address] | | | | | | [phone] | | | | | | | [...] consult intraop for placement of a 16 Kiswahili ur ethral catheter, which was later removed, [...] SSI. He will follow up with his anesthesia attending. He will have a change in his [...] Phone Center 04/24/2013 10:00 AM Jesus Fenton [facility] Bariatric Surgery [phone] [facility] Your Follow-Up Plan Follow up with JESUS FENTON MD. Schedule an appointment as soon as possible for a vis it on 04/17/2013. (the office will call you to reschedule and see if your needs can be met wi th one visit) Contact information [address] [facility] [address] [facility] [address] Other Discharge Orders and Instructions Medication Refill Instructions: If you need a refill on any narcotic pain medications, please call the clinic ([phone] ) by 2 pm on for any [...] during the day time hours by calling [facility] surgery office at [phone] - After hours, weekends and holidays, you may call the hospital electric power machine operator at [phone] an d have the personnel specialist Green Team for general surgery paged. Constipation: [...] in 24 hours. Outstanding labs/studies: CRISTIN HOBSON [facility] [address] [place] [address] Discharging Physician: CRISTIN HBOSON Attending Physician: Dr. Jesus Fenton documented in [...] ACNP - 04/14/2013 1:29 PM PDT [facility] Inpatient Progress Note Hospital Day [...] closely - to follow up with his Press Tool Maker -home today Prophylaxis: Feeding: regular Activity: Ambulate Sedation/Sleep: na VTE PPY: SCDs, Lovenox Head of bed: >30 degrees Ulcer PPY: famotidine Glycemic Control: euglycemic Infection PPY: IS, all catheter & line dates reviewed DISPO - dc home CRISTIN HOBSON [facility] [address] [facility] [place] [address] This assessment and plan was formulated both independently and in conjunction with the Surg ical team as well as the attending provider above. Nannette Duran MD - 04/13/2013 10:20 AM PDT GREEN SURGERY PROGRESS NOTE Hospital Day:2 Author; NANNETTE LUJAN MD Attending Physician: Dr. Fenton Interval Hx: High CBGs for which [facility] was consulted yesterday - further [...] regimens -Will follow CBGs closely - appreciate [facility] help -Likely home tomorrow NANNETTE [...] fatty tumor SUBJECTIVE: Pain well controlled on COLORIST DYER 01/12; denies SOB/CP/N/V; CPAP on OBJECTIVE: Vitals: [...] Burns is a 48 y.o. M, with [facility] s/f morbid obesity who is POD#0 [...] Lovenox Trina Hutchinson MD Surgery, R1 Pager: [phone] documented in this encounter Plan of Treatment [...] NICHOLAS | [address] | [place], [place] | | | BRIANNA CONNOLLY OF CARE | [address] | [address] | | | TESTS | | | [...] MARRUFUSAM | [address] | [place] | | | BRIANNA CONNOLLY OF CARE | [address] | [address] | | | TESTS | | | [...] MARQUAM | [address] | [place], [place] | | | BRIANNA CONNOLLY OF DEREK | [address] | [address] | | | TESTS | | | [...] NICHOLAS | [address] | [place], [place] | | | B[facility]NA CONNOLLY OF CARE | [address] | [address] | | | TESTS | | | [...] MARQUAM | [address] | [place] | | | BRIANNA CONNOLLY OF DEREK | [address] | [address] | | | TESTS | | | [...] MARQUAM | [address] | [place], [place] | | | BRIANNA CONNOLLY OF CARE | [facility] | [address] | | | TESTS | | | [...] NICHOLAS | [address] | [place], [place] | | | B[facility]NA CONNOLLY OF CARE | [address] | [address] | | | TESTS | | | [...] MARQUAM | [address] | [place], [place] | | | BRI[facility]NA CONNOLLY OF CARE | [address] | [address] | | | TESTS | | | [...] MARQUAM | [address] | [place], [place] | | | BRI[facility]NA CONNOLLY OF CARE | [address] | [address] | | | TESTS | | | [...] NICHOLAS | [address] | [place], [place] | | | B[facility]NA CONNOLLY OF CARE | [address] | [address] | | | TESTS | | | [...] MARQUAM | [address] | [place], [place] | | | BRIANNA CONNOLLY OF CARE | [address] | [address] | | | TESTS | | | [...] YU | [address] | [place], [place] | | | [facility] OF [facility] | [address] | [address] | | | TESTS | | | [...] | + + + + + | [facility] | [address] | [place] [address] | | | SERVICES, CORE | PARK [...] | + + + + + | [facility] [employer] | [address] | [place] [address] | | | SERVICES, CORE | TJ [...] | | | LABORATORY | | | TANZANIAN | | | SERVICES, | | | [...] the MDRD equation recommended by the | [facility] | | National Kidney Disease Education Program. [...] | + + + + + | [facility] | [address] [facility] | [place] [address] | | | SERVICES, CORE | TJ [...] - MARQUAM | [address] | [place], [place] | | | BRIANNA CONNOLLY OF DEREK | [facility] | [address] | | | TESTS | | | [...] NICHOLAS | [address] | [place], [place] | | | CATHLEEN POINT OF CARE | [address] | [address] | | | TESTS | | | [...] MARQUAM | [address] | [place], [place] | | | CATHLEEN POINT OF CARE | [address] | [address] | | | TESTS | | | [...] MARQUAM | [address] | [place], [place] | | | BRIANNA CONNOLLY OF DEREK | [facility] | [address] | | | TESTS | | | [...] NICHOLAS | [address] | [place], [place] | | | CATHLEEN POINT OF CARE | [address] | [address] | | | TESTS | | | [...] MARQUAM | [address] | [place], [place] | | | CATHLEEN POINT OF CARE | [address] | [address] | | | TESTS | | | [...] + | [facility] | [address] | [place], [place] | | | CATHLEEN POINT OF CARE | [address] | [address] | | | TESTS | | | [...] NICHOLAS | [address] | [place], [place] | | | BRIANNA CONNOLLY OF DEREK | [facility] | [address] | | | TESTS | | | [...] MARQUAM | [address] | [place], [place] | | | BRIANNA CONNOLLY OF CARE | [address] | [address] | | | TESTS | | | [...] MARQUAM | [address] | [place], [place] | | | CATHLEEN POINT OF CARE | [address] | [address] | | | TESTS | | | [...] NICHOLAS | [address] | [place], [place] | | | CATHLEEN POINT OF CARE | [address] | [address] | | | TESTS | | | [...] MARQUAM | [address] | [place], [place] | | | BRIANNA CONNOLLY OF [facility] | [address] | [address] | | | TESTS | | | [...] MARQUAM | [address] | [place], [place] | | | BRIANNA CONNOLLY OF DEREK | [address] | [address] | | | TESTS | | | [...] NICHOLAS | [address] | [place], [place] | | | C[facility]LEEN POINT OF CARE | [address] | [address] | | | TESTS | | | [...] MARQUAM | [address] | [place], [place] | | | CATHLEEN POINT OF CARE | [facility] | [address] | | | TESTS | | | [...] EVELIAAM | [address] | [place], [place] | | | CATHLEEN POINT OF CARE | [address] | [address] | | | TESTS | | | [...] NICHOLAS | [address] | [place], [place] | | | B[facility]NA CONNOLLY OF CARE | [address] | [address] | | | TESTS | | | [...] MARQUAM | [address] | [place], [place] | | | C[facility]LEEN POINT OF CARE | [address] | [address] | | | TESTS | | | [...] - MARQUAM | [address] | [place], [place] | | | BRIANNA CONNOLLY OF CARE | [address] | [address] | | | TESTS | | | [...] NICHOLAS | [address] | [place], [place] | | | CATHLEEN POINT OF CARE | [address] | [address] | | | TESTS | | | [...] MARQUAM | [address] | [place], [place] | | | CATHLEEN POINT OF CARE | [address] | [address] | | | TESTS | | | [...] - YU | [address] | [place], [place] | | | BRIANNA CONNOLLY OF CARE | [address] | [address] | | | TESTS | | | [...] NICHOLAS | [address] | [place], [place] | | | BRIANNA CONNOLLY OF CARE | [address] | [address] | | | TESTS | | | [...] MARQUAM | [address] | [place], [place] | | | CATHLEEN POINT OF CARE | [address] | [address] | | | TESTS | | | [...] - MARQUAM | [address] | [place], [place] | | | BRIANNA CONNOLLY OF CARE | [address] | [address] | | | TESTS | | | [...] NICHOLAS | [address] | [place], [place] | | | BRIANNA CONNOLLY OF CARE | [address] | [address] | | | TESTS | | | [...] MARQUAM | [address] | [place], [place] | | | CATHLEEN POINT OF CARE | [address] | [address] | | | TESTS | | | [...] MARQUAM | [address] | [place], [place] | | | BRIANNA CONNOLLY OF DEREK | [facility] | [address] | | | TESTS | | | [...] NICHOLAS | [address] | [place], [place] | | | CATHLEEN POINT OF CARE | [address] | [address] | | | TESTS | | | [...] gross | | | | | | lesions.Postage Machine Operator | | | | | | sections [...] | + + + + + | [facility] | [address] | [place] [address] | | | PATHOLOGY | [address] [...]
--- OUTSIDE RECORDS SUMMARY | ~2020-04-13 | XMS | Encounter Summary ---
Demographics + + + | Address | [address] [facility] | | | [place] [address] | + + + | Home Phone | | + + + | Preferred Language | Unknown | + + + | Marital Status | | + + + | Mormonism Affiliation | 1013 | + + + | Race | Unknown | + + + | Ethnic Group | Unknown | + + + Author + + + | Author | [facility] | | | and [place] | + + + | Organization | [facility] | | | and [place] | + + + | Address | Unknown | + + + | Phone | Unavailable | + + + Support + + + + + | Name | Relationship | Address | Phone | + + + + + | Milady Burns | ECON | [address] | | | | | [place], [place] | | | | | [address] | | + + + + + Care Team Providers + +------+ + | Care Staff Respiratory Therapist Name | Role | Phone | + [...] | | | | | | | [place] | | | | | | | [...] + + | 06/01/ | Hospital | [facility] | Chauncey Lee MD | | | 2016 - | Encounter | MED CTR SURGICAL | [address] | | | | | [address] | [place] [address] | | | 06/02/ | | [place] [address] | [phone] | | | 2015 | | [phone] | | | +--------+ + + + [...] might be differ ent from the original. [facility] NEUROSURGERY DISCHARGE SUMMARY Patient Name: Gerard [...] as needed for Pain. Unchanged Medications Details First Opinion BREEZE 2 TEST Disk Generic drug: Glucose Blood Use as directed First Opinion MICROLET LANCETS Misc Use as directed CRESTOR 40 MG tablet Generic drug: rosuvastatin Take 40 mg by mouth Daily. ergocalciferol 57767 UNITS capsule Take 50,000 Units by mouth [...] LANCETS MISC Use as directed ergocalciferol (ERGOCALCIFEROL) 49033 UNITS capsule 50,000 Units Take 50,000 Units by mouth Once a week. FLUoxetine (PROZAC) 20 mg capsule 20 mg Take 20 mg by mouth Daily. Glucose Blood (First Opinion BREEZE 2 TEST) DISK Use as directed [...] t raise your hands over your head coc1zjzw(s)after your surgery. Don t drive until your [...] this your 1 month post op appointment. [id number] [employer] [address] [place] [address]337. All righ ts reserved. This information is [...] | | | 12 | | | 03195 UNITS capsule | | | | | [...] + | [facility] | [address] | [place] | [phone] | | [facility] | | [address] | | | - LABORATORY | | [...] + | [facility] | [address] | [place] | [phone] | | [facility] | | [address] | | | - LABORATORY | | [...] [address] | [place] | [phone] | | [facility] | | [address] | | | - LABORATORY | | [...] [address] | [place] | [phone] | | [facility] | | [address] | | | - LABORATORY | | [...] + | [facility] | [address] | [place] | [phone] | | [facility] | | [address] | | | - LABORATORY | | [...] ST. | [address] | [place], [place] | [phone] | | [facility] | | [address] | | | - LABORATORY | | [...] ST. | [address] | [place] | [phone] | | [facility] | | [address] | | | - LABORATORY | | [...] [address] | [place] | [phone] | | [facility] | | [address] | | | - LABORATORY | | [...] | | | | | | | [facility] 06/01/16 at 1500, For 2 doses, [...] PDT | | | | | Starting [facility] 06/01/16 at 1234, Use | | [...] | | | | | | on [facility] 06/01/16 at 2100, | | | [...] | | | | | | | [facility] 06/01/16 at 1300, CORRECTION | | [...] | | | | | | | 5719-6540 Use NIGHT DOSE for | | | | | | | doses scheduled: HS, 3AM, | | | | | | | Nighttime 0245-5853, | | | | | | | [...]
--- OUTSIDE RECORDS SUMMARY | ~2020-04-13 | XMS | Encounter Summary ---
Demographics + + + | Address | [address] [facility] | | | [place] [address] | + + + | Home Phone | | + + + | Preferred Language | Unknown | + + + | Marital Status | | + + + | Zoroastrian Affiliation | 1013 | + + + | Race | Unknown | + + + | Ethnic Group | Unknown | + + + Author + + + | Author | [facility] | | | and [place] | + + + | Organization | [facility] | | | and [place] | + + + | Address | Unknown | + + + | Phone | Unavailable | + + + Support + + + + + | Name | Relationship | Address | Phone | + + + + + | Milady Burns | ECON | [address] | | | | | [place] | | | | | [address] | | + + + + + Care Team Providers + +------+ + | Care Bed And Breakfast Cook Name | Role | Phone | + [...] + + | 07/11/ | Office | [facility] | Jose Mirza | S/P cervical spinal | | 2016 | Visit | NEUROSURGERY [address] | [address] | fusion (Primary Dx); | | | | [address] | [address] | Left arm weakness; | | | | [place], [place] | [place] [address] | Cervical spondylosis | | | | [address] | [phone] | with radiculopathy; | | | | [phone] | | Foraminal stenosis | | | [...] from the original. Jose Mirza PA-C [address] [facility], [address] [place] [address] FAX: NEUROSURGERY FOLLOW-UP CHIEF COMPLAINT: Chief Complaint [...] Muscle spasms. 90 tablet 3 ergocalciferol (ERGOCALCIFEROL) 99135 UNITS capsule Take 50,000 Units by mouth Once a w yakutat. FLUoxetine (PROZAC) 20 mg capsule Take 20 [...] 2 or 3 Views (09/14/2016 9:39 AM [facility]) + + | Specimen | + + | | + + + + + | Narrative | Performed At | + + + | XR CERVICAL SPINE 2 OR 3 VIEWS 09/14/2016 9:39 AM HISTORY: | [facility] | | Postop. COMPARISON: Multiple priors. FINDINGS: Visualized | [facility] | | skull base and facial structures demonstrate no acute findings. The | [facility] | | prevertebral soft tissues are [...] + + | Performing | Address | City/State/[facility] | Phone Number | | Organization | | | | + + + + + | [facility] | [address] | [place], [place] | [phone] | | [facility] | | [address] | | | - IMAGING | | [...]
--- OUTSIDE RECORDS SUMMARY | ~2020-04-13 | XMS | Encounter Summary ---
Demographics + + + | Address | [address] [facility] | | | [place] [address] | + + + | Home Phone [...] Organization | [facility] | | | and [place] | + + + | Address | Unknown | + + + | Phone | Unavailable | + + + Support + + + + + | Name | Relationship | Address | Phone | + + + + + | Mliady Burns | ECON | [address] | | | | | [place] | | | | | [address] | | + + + + + Care Team Providers + +------+ + | Care Guardian Family Member Name | Role | Phone | + +------+ + | Moe Bella MD | PCP | | + +------+ + Encounter Details +--------+ + + + + | Date | Type | Department | Care Team | Description | +--------+ + + + + | 08/22/ | Hospital | 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 | | | | | ([facility]) S/P cervical | | | [...]
--- OUTSIDE RECORDS SUMMARY | ~2020-04-13 | XMS | Encounter Summary ---
Demographics + + + | Address | [address] [facility] | | | [place] [address] | + + + | Home Phone [...] + | Tico Burns | ECON | [address] | | | | | [place], [place] | | | | | [address] | | + + + + + Care Team Providers + +------+ + | Care Transverse Abdominal Muscle Surgeon Name | Role | Phone | [...] | | [place] [address] | [address] | | | | | [place] Mailcode: CH4S | [facility] | | | | | [facility] | [place], [place] | | | | | and Healing, | [address] | | | | | [address] | [phone] | | | | | Floor [place], [place] | | | | | | [address] | | | | | | [phone] | | | +--------+ + + + [...]
--- OUTSIDE RECORDS SUMMARY | ~2020-04-13 | XMS | Encounter Summary ---
Demographics + + + | Address | [address] [facility] | | | [place] [address] | + + + | Home Phone [...] + | Tico Burns | ECON | [address] | | | | | [place], [place] | | | | | [address] | | + + + + + Care Team Providers + +------+ + | Care Corporate Associate Name | Role | Phone | [...] | Pain | Diagnoses | Conser, | [facility] | | | | Management | Morbid | Violetta Sweeney NP | [facility] [address] | | | | | obesity | [address] | | | | | ([facility]) | [address], | Mailcode: | | | | | Procedures | [address] | [facility] Center | | | | | CONSULT TO | [place], [place] | for Health | | | | | PAIN CENTER | [address] | and Healing, | | | | | | Phone: | Building 1, | | | | | | [phone] | 15th Floor | | | | | | Fax: | [place], [place] | | | | | | [phone] | [address] | | | | | | | Phone: | | | | | | | [phone] | | | | | | | Fax: | | | | | | | [phone] | +--------+--------+ + + + + Encounter Details +--------+ + + + + | Date | Type | Department | Care Team | Description | +--------+ + + + + | 04/26/ | Documentati | Dig[facility]ive Health | Violetta Byers, | | | 2011 | on | Center at [facility] [address] | [address] | | | | | [address] | , [address] | | | | | Mailcode: Center | [place], [place] | | | | | for Health and | [address] | | | | | Healing, Building 2 | [phone] | | | | | [place], [place] | | | | | | [address] | | | | | | [phone] | | | +--------+ + + + [...]
--- OUTSIDE RECORDS SUMMARY | ~2020-04-13 | XMS | Encounter Summary ---
Demographics + + + | Address | [address] [facility] | | | [place] [address] | + + + | Home Phone | | + + + | Preferred Language | Unknown | + + + | Marital Status | | + + + | Christian Affiliation | 1013 | + + + | Race | Unknown | + + + | Ethnic Group | Unknown | + + + Author + + + | Author | [facility] | | | and [place] | + + + | Organization | [facility] | | | and [place] | + + + | Address | Unknown | + + + | Phone | Unavailable | + + + Support + + + + + | Name | Relationship | Address | Phone | + + + + + | Milady Burns | ECON | [address] | | | | | [place] | | | | | [address] | | + + + + + Care Team Providers + +------+ + | Care Computing Consultant Name | Role | Phone | [...] | | [address] | [place] [address] | (Primary Dx); Morbid | | | | [place], [place] | [phone] | obesity, | | | | [address] | | unspecified obesity | | | | [phone] | | type (HCC); | | | [...] ST. | [address] | [place] | [phone] | | [facility] | | [address] | | | - IMAGING | | [...] | | | | CHARI AUGUST MD ([id number]) | | | | | | on [...] + | [facility] | [address] | [place] | [phone] | | [facility] | | [address] | | | - LABORATORY | | [...] mL/min/1.73m2 | [facility] | | | SYRIAN | RATE,ESTIMATED | | MEDICAL | | | | mL/min/1.51a9Irjq than | | CENTER - | | [...] ST. | [address] | [place], [place] | [phone] | | [facility] | | [address] | | | - LABORATORY | | [...]
--- OUTSIDE RECORDS SUMMARY | ~2020-04-13 | XMS | Encounter Summary ---
Demographics + + + | Address | [address] [facility] | | | [place] [address] | + + + | Home Phone [...] [place], [place] | | | | | [address] | | + + + + + Care Team Providers + +------+ + | Care Interior Design Director Name | Role | Phone | [...] Follow-up | | 2012 | Visit | [place] at [facility] [address] | [address] [facility] | examination after | | | | [address] | [address] | gastrointestinal | | | | Mailcode: Center | [place], [place] | surgery (Primary Dx) | | | | for Health and | [address] | | | | | [facility] 2 | [phone] | | | | | [place], [place] | | | | | | [address] | | | | | | [phone] | | | +--------+---------+ + + + [...] CENTER [address] Mailcode: [place] [address] Salvatore Felipe MD - 05/15/2013 [...]
--- OUTSIDE RECORDS SUMMARY | ~2020-04-13 | XMS | Encounter Summary ---
Demographics + + + | Address | [address] [facility] | | | [place] [address] | + + + | Home Phone [...] + | Tico Burns | ECON | [address] | | | | | [place], [place] | | | | | [address] | | + + + + + Care Team Providers + +------+ + | Care Clay Stain Mixer Name | Role | Phone | + +------+ + | Moe Bella MD | PCP | | + +------+ + Encounter Details +--------+ + + + + | Date | Type | Department | Care Team | Description | +--------+ + + + + | 02/12/ | Telephone | Digestive Health | Jesus Perez, | | | 2012 | | [place] at [facility] [address] | [address] [facility] | | | | | [address] | [address] | | | | | Mailcode: Coy | [place], [place] | | | | | [facility] and | [address] | | | | | [facility] 2 | [phone] | | | | | [place], [place] | | | | | | [address] | | | | | | [phone] | | | +--------+ + + + [...]
--- OUTSIDE RECORDS SUMMARY | ~2020-04-13 | XMS | Encounter Summary ---
Demographics + + + | Address | [address] [facility] | | | [place] [address] | + + + | Home Phone [...] + | Tico Burns | ECON | [address] | | | | | [place], [place] | | | | | [address] | | + + + + + Care Team Providers + +------+ + | Care Broker Assistant Name | Role | Phone | + +------+ + | Moe Bella MD | PCP | | + +------+ + Encounter Details +--------+ + + + + | Date | Type | Department | Care Team | Description | +--------+ + + + + | 03/14/ | Abstract | Digestive Health | Jesus Perez, | | | 2012 | | [place] at [facility] [address] | [address] | | | | | [address] | [address] | | | | | Mailcode: Center | [place], [place] | | | | | [facility] and | [address] | | | | | [facility], [facility] 2 | [phone] | | | | | [place], [place] | | | | | | [address] | | | | | | [phone] | | | +--------+ + + + [...]
--- OUTSIDE RECORDS SUMMARY | ~2020-04-13 | XMS | Encounter Summary ---
Demographics + + + | Address | [address] [facility] | | | [place] [address] | + + + | Home Phone [...] + | Tico Burns | ECON | [address] | | | | | [place], [place] | | | | | [address] | | + + + + + Care Team Providers + +------+ + | Care Chemical Engineering Technician Name | Role | Phone | + +------+ + | Moe Bella MD | PCP | | + +------+ + Encounter Details +--------+ + + + + | Date | Type | Department | Care Team | Description | +--------+ + + + + | 09/12/ | Abstract | Digestive Health | Jesus Perez, | | | 2012 | | [place] at [facility] [address] | [address] | | | | | [address] | [address] | | | | | Mailcode: Center | [place], [place] | | | | | [facility] Health and | [address] | | | | | [facility] [place] [address] | [phone] | | | | | [place], [place] | | | | | | [address] | | | | | | [phone] | | | +--------+ + + + [...]
--- OUTSIDE RECORDS SUMMARY | ~2020-04-13 | XMS | Encounter Summary ---
Demographics + + + | Address | [address] [facility] | | | [place] [address] | + + + | Home Phone [...] + | Tico Burns | ECON | [address] | | | | | [place], [place] | | | | | [address] | | + + + + + Care Team Providers + +------+ + | Care Attic Blower Name | Role | Phone | + [...] Order | [address] | [address] [place], | | | | | [facility] | [place] [address] | | | | | [place], 4th Floor | [phone] | | | | | [place], [place] | | | | | | [address] | | | | | | [phone] | | | +--------+ + + + [...]
--- OUTSIDE RECORDS SUMMARY | ~2020-04-13 | XMS | Encounter Summary ---
Demographics + + + | Address | [address] [facility] | | | [place] [address] | + + + | Home Phone | | + + + | Preferred Language | Unknown | + + + | Marital Status | | + + + | Congregational Affiliation | 1013 | + + + | Race | Unknown | + + + | Ethnic Group | Unknown | + + + Author + + + | Author | [facility] | | | and [place] | + + + | Organization | [facility] | | | and [place] | + + + | Address | Unknown | + + + | Phone | Unavailable | + + + Support + + + + + | Name | Relationship | Address | Phone | + + + + + | Milady Burns | ECON | [address] | | | | | [place] | | | | | [address] | | + + + + + Care Team Providers + +------+ + | Care Petroleum Refining Equipment Operator Name | Role | Phone | [...] | | [address] | [place] [address] | | | | | [place], [place] | [phone] | | | | | [address] | | | | | | [phone] | | | +--------+ + + + [...]
--- OUTSIDE RECORDS SUMMARY | ~2020-04-13 | XMS | Encounter Summary ---
Demographics + + + | Address | [address] [facility] | | | [place] [address] | + + + | Home Phone [...] Organization | [facility] | [...] [address] | | | | | [place] | | | | | [address] | | + + + + + Care Team Providers + +------+ + | Care Herbarium Worker Name | Role | Phone | [...] + + | 07/11/ | Office | [facility] | Jose Mirza | S/P cervical spinal | | 2016 | Visit | NEUROSURGERY [address] | [address] | fusion (Primary Dx); | | | | [address] | [address] | Left arm weakness; | | | | [place], [place] | [place] [address] | Cervical spondylosis | | | | [address] | [phone] | with radiculopathy; | | | | [phone] | | Foraminal stenosis | | | [...] from the original. Jose Mirza PA-C [address] [facility], [address] [place] [address] FAX: NEUROSURGERY FOLLOW-UP CHIEF COMPLAINT: Chief Complaint [...] Muscle spasms. 90 tablet 3 ergocalciferol (ERGOCALCIFEROL) 87875 UNITS capsule Take 50,000 Units by mouth Once a w squaxin. FLUoxetine (PROZAC) 20 mg capsule Take 20 [...] 2 or 3 Views (09/14/2016 9:39 AM [facility]) + + | Specimen | + + | | + + + + + | Narrative | Performed At | + + + | XR CERVICAL SPINE 2 OR 3 VIEWS 09/14/2016 9:39 AM HISTORY: | [facility] | | Postop. COMPARISON: Multiple priors. FINDINGS: Visualized | [facility] | | skull base and facial structures demonstrate no acute findings. The | [facility] | | prevertebral soft tissues [...] + + | Performing | Address | City/State/[facility] | Phone Number | | Organization | | | | + + + + + | [facility] [facility] | [address] | [place], [place] | [phone] | | [facility] | | [address] | | | - IMAGING | | [...]
--- OUTSIDE RECORDS SUMMARY | ~2020-04-13 | XMS | Encounter Summary ---
Demographics + + + | Address | [address] [facility] | | | [place] [address] | + + + | Home Phone [...] + | Tico Burns | ECON | [address] | | | | | [place], [place] | | | | | [address] | | + + + + + Care Team Providers + +------+ + | Care Boilermaker Apprentice Name | Role | Phone | [...] + + + + | 02/28/ | Microfilm Processor | Dig[facility]ive Health | Jesus Perez, | | | 2012 | | [facility] at [facility] [address] | [address] [facility] | | | | | [address] | [address] | | | | | Mailcode: Center | [place], [place] | | | | | [facility] and | [address] | | | | | [facility] 2 | [phone] | | | | | [place], [place] | | | | | | [address] | | | | | | [phone] | | | +--------+ + + + [...]
--- OUTSIDE RECORDS SUMMARY | ~2020-04-13 | XMS | Encounter Summary ---
Demographics + + + | Address | [address] [facility] | | | [place] [address] | + + + | Home Phone | | + + + | Preferred Language | Unknown | + + + | Marital Status | | + + + | Religion Affiliation | 1013 | + + + | Race | Unknown | + + + | Ethnic Group | Unknown | + + + Author + + + | Author | [facility] | | | and [place] | + + + | Organization | [facility] | | | and [place] | + + + | Address | Unknown | + + + | Phone | Unavailable | + + + Support + + + + + | Name | Relationship | Address | Phone | + + + + + | Milady Burns | ECON | [address] | | | | | [place] | | | | | [address] | | + + + + + Care Team Providers + +------+ + | Care Theatrical Agent Name | Role | Phone | + +------+ + | Moe Bella MD | PCP | | + +------+ + Encounter Details +--------+ + + + + | Date | Type | Department | Care Team | Description | +--------+ + + + + | 07/11/ | Hospital | [facility] | Jose Mirza | Cervical spondylosis | | 2016 | Encounter | MED CTR XRAY [address] | [address] | with radiculopathy; | | | | [place] | [address] | S/P cervical spinal | | | | [place] [address] | [place] [address] | fusion | | | | [phone] | [phone] | | | | | | | [...] | | | 12 | | | [address] UNITS capsule | | | | | [...] [address] | [place] | [phone] | | [facility] | | [address] | | | - IMAGING | | | | + + + + + documented in this encounter Visit Diagnoses + + | Diagnosis | + + | Cervical spondylosis with radiculopathy Cervical spondylosis with myelopathy | + + | S/P cervical spinal fusion Arthrodesis status | + + documented in this encounter"
--- OUTSIDE RECORDS SUMMARY | ~2020-04-13 | XMS | Encounter Summary ---
Demographics + + + | Address | [address] [facility] | | | [place] [address] | + + + | Home Phone [...] [place], [place] | | | | | [address] | | + + + + + Care Team Providers + +------+ + | Care Hack Saw Operator Name | Role | Phone [...] | | status | Valent[address] Horner | [facility] | | | | | Procedures | [address] | Rd [place], | | | | | CONSULT TO | [place], [place] | [place] | | | | | BARIATRIC | [address] | [address] | | | | | SURGERY | Phone: | Phone: | | | | | | [phone] | [phone] | | | | | | Fax: | Fax: | | | | | | [phone] | [phone] | +--------+--------+ + + + + Encounter Details +--------+---------+ + + + | Date | Type | Department | Care Team | Description | +--------+---------+ + + + | 01/30/ | Office | Digestive Health | Kristan Miranda, | Morbid obesity, | | 2017 | Visit | [place] at [facility] [address] | ACNP [address] | unspecified obesity | | | | [address] | [place], [place] | type (HCC) (Primary | | | | Mailcode: Center | [address] | Dx); History of | | | | for Health and | | sleeve gastrectomy; | | | | Healing, Building 2 | | Vitamin D deficiency | | | | [place], [place] | | disease; Vitamin B | | | | [address] | | 12 deficiency; | | | [...] tends to his Knees. He saw the solar sales manager prior to my appointment. Currently is able [...] 430 to 439 at 6 months. 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 Indications: TYPE 2 DIABETES [...] 04/11/2013 Lower abdomen Gastrectomy, sleeve 01/[address] [facility] [address] 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, order provided) Following results: discuss with surgeon Evaluate insurance coverage. 2. Labs today: I have provided the print out for him to get these in [place] CBC, CMP, B12, PTH, vit D, ferritin 3.Take acid recruiting consultant (omeprazole) for first 3 mos, then wean [...] to POC and will call or send [employer] message if any issues. Start time 1515, end time 1545. I spent a total of 30 minutes face to face with this silvino ent. Over 50% of visit was in counseling. Kristan Goldsmith DNP, ACNP, FINANCIAL PROFESSIONAL Nurse Practitioner for [facility] | CH[facility]D [address] | [place], [place] | [address] | documented in this en counter Plan [...]
--- OUTSIDE RECORDS SUMMARY | ~2020-04-13 | XMS | Encounter Summary ---
Demographics + + + | Address | [address] [facility] | | | [place] [address] | + + + | Home Phone [...] + | Tico Burns | ECON | [address] | | | | | [place], [place] | | | | | [address] | | + + + + + Care Team Providers + +------+ + | Care Bore Miner Operator Name | Role | Phone | [...] | | | | (HCC) Type | [place] | [address] | | | | | II or | [address] | Center for | | | | | unspecified | [place], | Health and | | | | | type | [place] [address] | Healing, | | | | | diabetes | Phone: | Building 2 | | | | | mellitus | [phone] | [place], [place] | | | | | without | Fax: | [address] | | | | | mention of | [phone] | Phone: | | | | | complication | | [phone] | | | | | , not stated | | Fax: | | | | | as | | [phone] | | | | | uncontrolled | | | +--------+--------+ + + + + Encounter Details +--------+---------+ + + + | Date | Type | Department | Care Team | Description | +--------+---------+ + + + | 06/10/ | Office | Digestive Health | [address] | Diabetes mellitus | | 2011 | Visit | Center at [facility] | | ([facility]); Morbid | | | | [address] | | obesity ([facility]) | | | | for Health and | | | | | | Healing, Building 2 | | | | | | [place], [place] | | | | | | [address] | | | | | | [phone] | | | +--------+---------+ + + + [...] of Visit: 2:30 until 3:20. 50 minutes [id number] consult with the silvino entShilpi. SUBJECTIVE: Patient [...] milk, 2%. Lunch: noon to 2 pm. [place] from the [employer], 12 " Tuna salad , lettuce, [...] stressed, at home. Tends to bake. Weight tube coverer the past year: About the same: Best [...] Other relevant labs if available from outside [facility]. Nutrition Diagnosis: Obesity as evidenced by BMI [...] planned snack "veggie tray with cottage cheese Hungarian yogurt dip" at 4 PM wit h [...] + +--------+ + + + | HI MNT INITIAL | Routin | 06/10/2012 | [...]
--- OUTSIDE RECORDS SUMMARY | ~2020-04-13 | XMS | Encounter Summary ---
Demographics + + + | Address | [address] [facility] | | | [place] [address] | + + + | Home Phone [...] + | Organization | [facility] | | | and [place] | + + + | Address | Unknown | + + + | Phone | Unavailable | + + + Support + + + + + | Name | Relationship | Address | Phone | + + + + + | Milady Burns | ECON | [address] | | | | | [place] | | | | | [address] | | + + + + + Care Team Providers + +------+ + | Care Director Of Strategic Initiatives Name | Role | Phone | + [...] | | [address] | [place] [address] | | | | | [place], [place] | [phone] | | | | | [address] | | | | | | [phone] | | | +--------+ + + + [...]
--- OUTSIDE RECORDS SUMMARY | ~2020-04-13 | XMS | Encounter Summary ---
Demographics + + + | Address | [address] [facility] | | | [place] [address] | + + + | Home Phone [...] [place], [place] | | | | | [address] | | + + + + + Care Team Providers + +------+ + | Care Truck Greaser Name | Role | Phone | + [...] | | | | Hospital Admitting | [place], [place] | | | | | Desk Located on the | [address] | | | | | 9th floor | [phone] | | | | | [place], [place] | | | | | | [address] | Tank Gibson RN | | | | | | [address] | | | | | | [address] | | | | | | [place], [place] | | | | | | [address] | | +--------+ + + + + [...]
--- OUTSIDE RECORDS SUMMARY | ~2020-04-13 | XMS | Encounter Summary ---
Demographics + + + | Address | [address] [facility] | | | [place] [address] | + + + | Home Phone [...] | Author | [facility] | | | and [place] | + + + | Organization | [facility] | | | and [place] | + + + | Address | Unknown | + + + | Phone | Unavailable | + + + Support + + + + + | Name | Relationship | Address | Phone | + + + + + | Milady Burns | ECON | [address] | | | | | [place], [place] | | | | | [address] | | + + + + + Care Team Providers + +------+ + | Care Outside Machinist Helper Name | Role | Phone | [...] W | | | | | [address] [facility] [address] | [facility] | | | | | [place] | [address] [place] | | | | | [address] | [address] | | | | | [phone] | | | +--------+ + + + [...]
--- OUTSIDE RECORDS SUMMARY | ~2020-04-13 | XMS | Encounter Summary ---
Demographics + + + | Address | [address] [facility] | | | [place] [address] | + + + | Home Phone | | + + + | Preferred Language | Unknown | + + + | Marital Status | | + + + | Amish Affiliation | 1013 | + + + | Race | Unknown | + + + | Ethnic Group | Unknown | + + + Author + + + | Author | [facility] | | | and [place] | + + + | Organization | [facility] | | | and [place] | + + + | Address | Unknown | + + + | Phone | Unavailable | + + + Support + + + + + | Name | Relationship | Address | Phone | + + + + + | Milady Burns | ECON | [address] | | | | | [place], [place] | | | | | [address] | | + + + + + Care Team Providers + +------+ + | Care Associate Name | Role | Phone | [...] | | | | | [address] | [place], [place] | | | | | [place], [place] | [address] | | | | | [address] | [phone] | | | | | [phone] | | | | | | | Brandyn Agee MD | | | | | | [address] | | | | | | [place], [place] | | | | | | [address] | | | | | | | [...] 06/02/16 1530 by | | eral | [id number] catheter system; | Milka Saxena, RN | [...] | | PRN, Pain, Starting [facility] 06/01/16 | | AM PDT | [...] | | | Anxiety, Starting [facility] 06/01/16 at | | AM PDT [...] | | | Vomiting, Starting [facility] 06/01/16 at | | AM PDT [...]
--- OUTSIDE RECORDS SUMMARY | ~2020-04-13 | XMS | Encounter Summary ---
Demographics + + + | Address | [address] [facility] | | | [place] [address] | + + + | Home Phone | | + + + | Preferred Language | Unknown | + + + | Marital Status | | + + + | Scientology Affiliation | 1013 | + + + | Race | Unknown | + + + | Ethnic Group | Unknown | + + + Author + + + | Author | [facility] | | | and [place] | + + + | Organization | [facility] | | | and [place] | + + + | Address | Unknown | + + + | Phone | Unavailable | + + + Support + + + + + | Name | Relationship | Address | Phone | + + + + + | Milady Burns | ECON | [address] | | | | | [place], [place] | | | | | [address] | | + + + + + Care Team Providers + +------+ + | Care Assistant Professor In Family Studies Name | Role | Phone | + +------+ + | Moe Bella MD | PCP | | + +------+ + Encounter Details +--------+ + + + + | Date | Type | Department | Care Team | Description | +--------+ + + + + | 06/02/ | Orders Only | [facility] | Provider, | | | 2018 | | SYSTEM GENERIC OP | MD [address] | | | | | CONVERSION [address] | [place] | | | | | [address] [place], [place] | [place] [address] | | | | | [address] | | | | | | [phone] | | | +--------+ + + + [...]
--- OUTSIDE RECORDS SUMMARY | ~2020-04-13 | XMS | Encounter Summary ---
Demographics + + + | Address | [address] [facility] | | | [place] [address] | + + + | Home Phone | | + + + | Preferred Language | Unknown | + + + | Marital Status | | + + + | Orthodoxy Affiliation | 1013 | + + + | Race | Unknown | + + + | Ethnic Group | Unknown | + + + Author + + + | Author | [facility] | | | and [place] | + + + | Organization | [facility] | | | and [place] | + + + | Address | Unknown | + + + | Phone | Unavailable | + + + Support + + + + + | Name | Relationship | Address | Phone | + + + + + | Milady Burns | ECON | [address] | | | | | [place] | | | | | [address] | | + + + + + Care Team Providers + +------+ + | Care Adjustment Supervisor Name | Role | Phone | + +------+ + | Moe Bella MD | PCP | | + +------+ + Encounter Details +--------+ + + + + | Date | Type | Department | Care Team | Description | +--------+ + + + + | 04/04/ | Hospital | [facility] | Chauncey Lee MD | S/P cervical spinal | | 2016 | Encounter | MED CTR XRAY [address] | [address] | fusion | | | | [place] | [place] [address] | | | | | [place] [address] | [phone] | | | | | [phone] | | | +--------+ + + + [...] | | | 12 | | | [address] UNITS capsule | | | | | [...] [address] | [place] | [phone] | | [facility] | | [address] | | | - IMAGING | | | | + + + + + documented in this encounter Visit Diagnoses + + | Diagnosis | + + | S/P cervical spinal fusion Arthrodesis status | + + documented in this encounter"
--- OUTSIDE RECORDS SUMMARY | ~2020-04-13 | XMS | Encounter Summary ---
Demographics + + + | Address | [address] [facility] | | | [place] [address] | + + + | Home Phone [...] [place], [place] | | | | | [address] | | + + + + + Care Team Providers + +------+ + | Care Net Mvc Developer Name | Role | Phone | + +------+ + | Moe Bella MD | PCP | | + +------+ + Reason for Visit + + + | Reason | Comments | + + + | Medical Records | [facility] - OUTSIDE LAB: lipid panel, [...] | | Center at [facility] [address] | [place] OFFICE INSTRUCTOR [address] | Review ([facility] - | | | | [address] | , [address] | OUTSIDE LAB: lipid | | | | Mailcode: [place] | [place], [place] | panel, CMP, | | | | for Health and | [address] | hemoglobin, | | | | Healing, Building 2 | [phone] | thyroglobulin | | | | [place], [place] | | 11/03/2013, | | | | [address] | | 12/19/2013, | | | | [phone] | | 03/23/2014) | +--------+ + + [...]
--- OUTSIDE RECORDS SUMMARY | ~2020-04-13 | XMS | Encounter Summary ---
Demographics + + + | Address | [address] [facility] | | | [place] [address] | + + + | Home Phone [...] + | Tico Burns | ECON | [address] | | | | | [place], [place] | | | | | [address] | | + + + + + Care Team Providers + +------+ + | Care Student Counselor Name | Role | Phone | + [...] | Pain | Diagnoses | Conser, | Meteorological Equipment Repairer Psych | | | | Management | Morbid | Violetta Sweeney NP | [address] [address] | | | | | obesity | [address] | | | | | ([facility]) | [address], | Mailcode: | | | | | Procedures | [address] | [facility] | | | | | CONSULT TO | [place], [place] | for Health | | | | | PAIN CENTER | [address] | and Healing, | | | | | | Phone: | Building 1, | | | | | | [phone] | 15th Floor | | | | | | Fax: | [place], [place] | | | | | | [phone] | [address] | | | | | | | Phone: | | | | | | | [phone] | | | | | | | Fax: | | | | | | | [phone] | +--------+--------+ + + + + Encounter Details +--------+ + + + + | Date | Type | Department | Care Team | Description | +--------+ + + + + | 04/26/ | Documentati | Digestive Health | Violetta Byers, | | | 2011 | on | Center at [facility] [address] | LENS GRINDING MACHINE OPERATOR [address] | | | | | [address] | , [address] | | | | | Mailcode: Center | [place], [place] | | | | | for Health and | [address] | | | | | Healing, Building 2 | [phone] | | | | | [place], [place] | | | | | | [address] | | | | | | [phone] | | | +--------+ + + + [...]
--- OUTSIDE RECORDS SUMMARY | ~2020-04-13 | XMS | Encounter Summary ---
Demographics + + + | Address | [address] [facility] | | | [place] [address] | + + + | Home Phone [...] + | Tico Burns | ECON | [address] | | | | | [place], [place] | | | | | [address] | | + + + + + Care Team Providers + +------+ + | Care Shuttle Truck Driver Name | Role | Phone [...] | | | | | | | [place], [place] | | | | | | | [address] | | | | | | | Phone: | | | | | | | [phone] | | | | | | | Fax: | | | | | | | [phone] | +--------+--------+ + + + + Encounter Details +--------+---------+ + + + | Date | Type | Department | Care Team | Description | +--------+---------+ + + + | 09/04/ | Office | Digestive Health | Jesus Perez, | Status post | | 2012 | Visit | Center at [facility] [address] | MD [address] | bariatric surgery | | | | [address] | [address] | (Primary Dx) | | | | Mailcode: [place] | [place], [place] | | | | | [facility] and | [address] | | | | | [facility] | [phone] | | | | | [place], [place] | | | | | | [address] | | | | | | [phone] | | | +--------+---------+ + + + [...] will be having a lab draw in [place] in the next few weeks. WEIGHT ONLY [...]
--- OUTSIDE RECORDS SUMMARY | ~2020-04-13 | XMS | Encounter Summary ---
Demographics + + + | Address | [address] [facility] | | | [place] [address] | + + + | Home Phone | | + + + | Preferred Language | Unknown | + + + | Marital Status | | + + + | Evangelical Affiliation | 1013 | + + + | Race | Unknown | + + + | Ethnic Group | Unknown | + + + Author + + + | Author | [facility] | | | and [place] | + + + | Organization | [facility] | | | and [place] | + + + | Address | Unknown | + + + | Phone | Unavailable | + + + Support + + + + + | Name | Relationship | Address | Phone | + + + + + | Milady Burns | ECON | [address] | | | | | [place], [place] | | | | | [address] | | + + + + + Care Team Providers + +------+ + | Care Federal Appellate Law Clerk Name | Role | Phone | [...] | | [address] | [place] [address] | | | | | [place] | [phone] | | | | | [address] | | | | | | [phone] | | | +--------+---------+ + + + [...] from t elpidio original. Chauncey Lee MD [address] [place] [address], [address] [place], [place] [address] FAX: NEUROSURGERY FOLLOW-UP CHIEF COMPLAINT: Chief Complaint [...] Medication Sig Dispense Refill TOMAS MICROLET LANCETS [facility] Use as directed cyclobenzaprine (FLEXERIL) 10 mg tablet Take 1 tablet by mouth every 8 hours as needed for Muscle spasms. 90 tablet 3 ergocalciferol (ERGOCALCIFEROL) 28[address] UNITS capsule Take 50,000 Units by mouth Once a w little river. FLUoxetine (PROZAC) 20 mg capsule Take 20 [...] + | [address] | [address] | [place], [place] | [phone] | | [facility] | | [address] | | | - IMAGING | | | | + + + + + documented in this encounter Visit Diagnoses + + | Diagnosis | + + | S/P cervical spinal fusion - Primary Arthrodesis status | + + documented in this encounter
--- OUTSIDE RECORDS SUMMARY | ~2020-04-13 | XMS | Encounter Summary ---
Demographics + + + | Address | [address] [facility] | | | [place] [address] | + + + | Home Phone [...] + | Tico Burns | ECON | [address] | | | | | [place], [place] | | | | | [address] | | + + + + + Care Team Providers + +------+ + | Care Roller Skate Repairer Name | Role | Phone | [...] | 2012 | Referral | Services at [facility] | [address] | | | | Order | [address] [facility] | [address] [place], | | | | | Claudette Wright [facility] | [place] [address] | | | | | [facility], 10th Floor | [phone] | | | | | [place], [place] | | | | | | [address] | | | | | | [phone] | | | +--------+ + + + [...] | | | | vickey / CARIDAD Roass | | | | | | MATEO [...]
--- OUTSIDE RECORDS SUMMARY | ~2020-04-13 | XMS | Encounter Summary ---
Demographics + + + | Address | [address] [facility] | | | [place] [address] | + + + | Home Phone [...] [place], [place] | | | | | [address] | | + + + + + Care Team Providers + +------+ + | Care Silo Tender Name | Role | Phone | [...] | | [address] | [address] [facility] | TUMOR PANNUS | | | | Rd [facility] | [facility] | specimen x 1 | | | | Hospital Admitting | [place], [place] | | | | | Desk Located on the | [address] | | | | | 9th floor | [phone] | | | | | [place], [place] | | | | | | [address] | | | +--------+---------+ + + + [...] consult intraop for placement of a 16 Danish ur ethral catheter, which was later removed, [...] SSI. He will follow up with his elastic yarn twister. He will have a change in his [...] Fenton [facility] Bariatric Surgery [phone] [facility] Your Follow-Up Plan Follow up with JESUS FENTON MD. Schedule an appointment as soon as possible for a vis it on 04/17/2013. (the office will call you to reschedule and see if your needs can be met wi one visit) Contact information [address] [facility] [address] Other Discharge Orders and Instructions Medication Refill Instructions: If you need a refill on any narcotic pain medications, please call the clinic ([phone] ) by 2 pm on for any [...] during the day time hours by calling [facility] surgery office at [phone] - After hours, weekends and holidays, you may call the hospital scanner operator at [phone] an d have the outdoor education teacher [place] Team for general surgery paged. Constipation: It [...] HOSPITAL 14A [address] [place] [address] Discharging Physician: CRISTIN HOBSON Attending Physician: Dr. [...] Brody ACNP - 04/14/2013 1:29 PM PDT [facility] Inpatient Progress Note Hospital Day #3 [...] closely - to follow up with his [employer] Manager -home today Prophylaxis: Feeding: regular Activity: Ambulate Sedation/Sleep: na VTE PPY: SCDs, Lovenox Head of bed: >30 degrees Ulcer PPY: famotidine Glycemic Control: euglycemic Infection PPY: IS, all catheter & line dates reviewed DISPO - dc home CRISTIN HOBSON [address] [place] [address] This assessment and plan was formulated both independently and in conjunction with the Surg ical team as well as the attending provider above. Nannette Duran MD - 04/13/2013 10:20 AM PDT GREEN SURGERY PROGRESS NOTE Hospital Day:2 Author; NANNETTE LUJAN MD Attending Physician: Dr. Fenton Interval Hx: High CBGs for which [facility] was consulted yesterday - further [...] 30 mg, 30 mg, Subcutaneous, Q12H (Scheduled), Nanntete Lujan MD, 30 mg at 04/13/13817 famotidine [...] fatty tumor SUBJECTIVE: Pain well controlled on FOLD SKIVER 01/12; denies SOB/CP/N/V; CPAP on OBJECTIVE: Vitals: [...] px: Zac Hutchinson MD Surgery, R1 Pager: [phone] documented in this encounter Plan of Treatment [...] NICHOLAS | [address] | [place], [place] | | | BRIANNA CONNOLLY OF CARE | [address] | [address] | | | TESTS | | | [...] MARQUAM | [address] | [place], [place] | | | CATHLEEN POINT OF CARE | [address] | [address] | | | TESTS | | | [...] MARQUAM | [address] | [place], [place] | | | CATHLEEN POINT OF CARE | [address] | [address] | | | TESTS | | | [...] NICHOLAS | [address] | [place], [place] | | | BRIANNA CONNOLLY OF CARE | [address] | [address] | | | TESTS | | | [...] MARQUAM | [address] | [place], [place] | | | CATHLEEN POINT OF CARE | [address] | [address] | | | TESTS | | | [...] - MARQUAM | [address] | [place], [place] | | | CATHLEEN POINT OF CARE | [address] | [address] | | | TESTS | | | [...] NICHOLAS | [address] | [place], [place] | | | CATHLEEN POINT OF CARE | [address] | [address] | | | TESTS | | | [...] MARQUAM | [address] | [place], [place] | | | CATHLEEN POINT OF CARE | [address] | [address] | | | TESTS | | | [...] - MARQUAM | [address] | [place], [place] | | | CATHLEEN POINT OF CARE | [address] | [address] | | | TESTS | | | [...] NICHOLAS | [address] | [place], [place] | | | BRIANNA CONNOLLY OF CARE | [address] | [address] | | | TESTS | | | [...] MARQUAM | [address] | [place], [place] | | | CATHLEEN POINT OF CARE | [address] | [address] | | | TESTS | | | [...] - YU | [address] | [place], [place] | | | CATHLEEN POINT OF CARE | [address] | [address] | | | TESTS | | | [...] HOSPITAL LABORATORY | [address] | [place] [address] | | | SERVICES, CORE | PARK [...] | + + + + + | [facility] | [address] | [place] [address] | | | SERVICES, DAVEY | TJ [...] | | | LABORATORY | | | TURKMEN | | | SERVICES, | | | [...] HOSPITAL LABORATORY | [address] | [place] [address] | | | DAVEY CRAWFORD | TJ [...] MARQUAM | [address] | [place], [place] | | | CATHLEEN POINT OF CARE | [address] | [address] | | | TESTS | | | [...] NICHOLAS | [address] | [place], [place] | | | BRIANNA CONNOLLY OF DEREK | [facility] | [address] | | | TESTS | | | [...] MARQUAM | [address] | [place], [place] | | | BRIANNA CONNOLLY OF CARE | [facility] | [address] | | | TESTS | | | [...] MARQUAM | [address] | [place], [place] | | | BRIANNA CONNOLLY OF [facility] | [address] | [address] | | | TESTS | | | [...] NICHOLAS | [address] | [place], [place] | | | BRIANNA CONNOLLY OF DEREK | [facility] | [address] | | | TESTS | | | [...] MARRUFUSAM | [address] | [place], [place] | | | BRIANNA CONNOLLY OF CARE | [facility] | [address] | | | TESTS | | | [...] MARQUAM | [address] | [place], [place] | | | BRIANNA CONNOLLY OF DEREK | [facility] | [address] | | | TESTS | | | [...] NICHOLAS | [address] | [place], [place] | | | CATHLEEN POINT OF CARE | [address] | [address] | | | TESTS | | | [...] MARQUAM | [address] | [place], [place] | | | CATHLEEN POINT OF CARE | [facility] | [address] | | | TESTS | | | [...] - MARQUAM | [address] | [place], [place] | | | BRIANNA CONNOLLY OF DEREK | [facility] | [address] | | | TESTS | | | [...] NICHOLAS | [address] | [place], [place] | | | BRIANNA CONNOLLY OF DEREK | [address] | [address] | | | TESTS | | | [...] YU | [address] | [place], [place] | | | BRINANA CONNOLLY OF CARE | [facility] | [address] | | | TESTS | | | [...] MARQUAM | [address] | [place], [place] | | | BRIANNA CONNOLLY OF CARE | [address] | [address] | | | TESTS | | | [...] NICHOLAS | [address] | [place], [place] | | | BRIANNA CONNOLLY OF DEREK | [facility] | [address] | | | TESTS | | | [...] YU | [address] | [place], [place] | | | BRIANNA CONNOLLY OF CARE | [facility] | [address] | | | TESTS | | | [...] YU | [address] | [place], [place] | | | BRIANNA CONNOLLY OF DEREK | [facility] | [address] | | | TESTS | | | [...] NICHOLAS | [address] | [place], [place] | | | CATHLEEN POINT OF [facility] | [address] | [address] | | | TESTS | | | [...] MARQUAM | [address] | [place], [place] | | | HILL, POINT OF CARE | [facility] | [address] | | | TESTS | | | [...] MARRUFUSAM | [address] | [place], [place] | | | BRIANNA CONNOLLY OF DEREK | [facility] | [address] | | | TESTS | | | [...] NICHOLAS | [address] | [place], [place] | | | BRIANNA CONNOLLY OF DEREK | [facility] | [address] | | | TESTS | | | [...] MARQUAM | [address] | [place], [place] | | | BRIANNA CONNOLLY OF CARE | [facility] | [address] | | | TESTS | | | [...] MARQUAM | [address] | [place], [place] | | | BRIANNA CONNOLLY OF DEREK | [facility] | [address] | | | TESTS | | | [...] NICHOLAS | [address] | [place], [place] | | | CATHLEEN POINT OF CARE | [address] | [address] | | | TESTS | | | [...] MARQUAM | [address] | [place], [place] | | | BRIANNA CONNOLLY OF CARE | [facility] | [address] | | | TESTS | | | [...] - MARQUAM | [address] | [place], [place] | | | BRIANNA CONNOLLY OF CARE | [facility] | [address] | | | TESTS | | | [...] + + + | SONJA NICHOLAS | [address] | [place], [place] | | | CATHLEEN POINT OF CARE | [address] | [address] | | | TESTS | | | [...] MARRUFUSAM | [address] | [place], [place] | | | HILL, POINT OF CARE | [facility] | [address] | | | TESTS | | | [...] MARQUAM | [address] | [place], [place] | | | CATHLEEN POINT OF CARE | [address] | [address] | | | TESTS | | | [...] NICHOLAS | [address] | [place], [place] | | | BRIANNA CONNOLLY OF DEREK | [facility] | [address] | | | TESTS | | | [...] gross | | | | | | lesions.Plate Straightener | | | | | | sections [...] | + + + + + | [facility] | [address] | [place] [address] | | | PATHOLOGY | [address] [...]
--- OUTSIDE RECORDS SUMMARY | ~2020-04-13 | XMS | Encounter Summary ---
Demographics + + + | Address | [address] [facility] | | | [place] [address] | + + + | Home Phone [...] + | Tico Burns | ECON | [address] | | | | | [place], [place] | | | | | [address] | | + + + + + Care Team Providers + +------+ + | Care Laundry Technician Name | Role | Phone | [...] | | | | (HCC) Type | [place] | [address] | | | | | II or | [address] | Mailcode: | | | | | unspecified | [place], | [facility] | | | | | type | [place] [address] | Health and | | | | | diabetes | Phone: | Healing, | | | | | mellitus | [phone] | Building [address] | | | | | without | Fax: | [place], [place] | | | | | mention of | [phone] | [address] | | | | | complication | | Phone: | | | | | , not stated | | | | | | | as | | Fax: | | | | | uncontrolled | | [phone] | +--------+--------+ + + + + Encounter Details +--------+---------+ + + + | Date | Type | Department | Care Team | Description | +--------+---------+ + + + | 03/03/ | Office | Digestive Health | Kristan Miranda, | S/P laparoscopic | | 2015 | Visit | Center at [facility] [address] | ACNP [address] | sleeve gastrectomy | | | | [address] | Ave [place], [place] | (Primary Dx) | | | | Mailcode: Center | [address] | | | | | for Health and | [phone] | | | | | [facility] 2 | | | | | | [place], [place] | | | | | | [address] | | | | | | [phone] | | | +--------+---------+ + + + [...] weight 28 puonds 04/17. .lives in [facility]. Goal is 400 for this year He [...] 4 Tabs by mouth once daily. Ad mortgage accounting clerk with evening meal. 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 Start time 1150, end time 1220. I spent a total of 30 minutes face to face with this silvino ent. Over 50% of visit was in counseling. Kristan Goldsmith DNP, ACNP, MANAGER BUDGET Nurse Practitioner for Bariatric Surgery [facility] | [address] | [place], [place] | [address] | documented in this en counter Plan of Treatment Not on filedocumented as of this encounter Visit Diagnoses + + | Diagnosis | + + | S/P laparoscopic sleeve gastrectomy - Primary | + + documented in this encounter
--- OUTSIDE RECORDS SUMMARY | ~2020-04-13 | XMS | Encounter Summary ---
Demographics + + + | Address | [address] [facility] [address] | | | [place] [address] | + + + | Home Phone [...] + | Tico Burns | ECON | [address] | | | | | [place], [place] | | | | | [address] | | + + + + + Care Team Providers + +------+ + | Care Facilities Administrator Name | Role | Phone | [...] Order | [address] | [address] [place], | | | | | [place] | [place] [address] | | | | | [place], 4th Floor | [phone] | | | | | [place], [place] | | | | | | [address] | | | | | | [phone] | | | +--------+ + + + [...]
--- OUTSIDE RECORDS SUMMARY | ~2020-04-13 | XMS | Encounter Summary ---
Demographics + + + | Address | [address] [facility] | | | [place] [address] | + + + | Home Phone [...] + | Organization | [facility] | | | and [place] | + + + | Address | Unknown | + + + | Phone | Unavailable | + + + Support + + + + + | Name | Relationship | Address | Phone | + + + + + | Milady Burns | ECON | [address] | | | | | [place] | | | | | [address] | | + + + + + Care Team Providers + +------+ + | Care Travel Counselor Name | Role | Phone | [...] + + | 05/10/ | Office | [facility] | Jose Mirza | Cervical spondylosis | | 2016 | Visit | NEUROSURGERY [address] | with radiculopathy | | | | [address] | [address] | (Primary Dx); | | | | [place], [place] | [place] [address] | Foraminal stenosis | | | | [address] | [phone] | of cervical region; | | | | [phone] | | Degenerative disc | | | [...] t from the original. ERIC Maldonado [address] [facility], [address] [place], [place] [address] FAX: NEUROSURGERY HISTORY AND PHYSICAL EXAMINATION CHIEF [...] by mouth 2 times daily. ergocalciferol (ERGOCALCIFEROL) 09881 UNITS capsule Take 50,000 Units by mouth Once a w kaguyuk. FLUoxetine (PROZAC) 20 mg capsule Take 20 mg by mouth Daily. Glucose Blood (NoFlo BREEZE 2 TEST) DISK Use as directed [...] has no apparent deficits with short or mcc memory. CRANIAL NERVES: II: Acuity is intact. [...] Triceps 5 5 Wrist Flexion 5 4 Boot Turner Strength 5 4 Hip Flexion 5 5 [...]
--- OUTSIDE RECORDS SUMMARY | ~2020-04-13 | XMS | Encounter Summary ---
Demographics + + + | Address | [address] | | | [place] [address] | + + + | Home Phone [...] + | Tico Burns | ECON | [address] | | | | | [place], [place] | | | | | [address] | | + + + + + Care Team Providers + +------+ + | Care Traffic Analysis Technician Name | Role | Phone | [...] | Office | [facility] | Yahaiar Doran MD | Morbid obesity (HCC) | | 2012 | Visit | [address] | | (Primary Dx); | | | | Mailcode: CH10U | | Nephrolithiasis | | | | [facility] | | | | | | and Healing, | | | | | | Building | | | | | | Floor [place], [place] | | | | | | [address] | | | | | | [phone] | | | +--------+---------+ + + + [...] N/A Years of Education: N/A 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
--- OUTSIDE RECORDS SUMMARY | ~2020-04-13 | XMS | Encounter Summary ---
Demographics + + + | Address | [address] | | | [place] [address] | + + + | Home Phone [...] [facility] | | | and [place] | + + + | Address | Unknown | + + + | Phone | Unavailable | + + + Support + + + + + | Name | Relationship | Address | Phone | + + + + + | Milady Burns | ECON | [address] | | | | | [place], [place] | | | | | [address] | | + + + + + Care Team Providers + +------+ + | Care Gluing Machine Adjuster Name | Role | Phone | + +------+ + PCP | Unavailable | + +------+ + Encounter Details +--------+ + + + + | Date | Type | Department | Care Team | Description | +--------+ + + + + | 01/21/ | Hospital | [facility] | Conversion | Scrotal mass | | 2011 | Encounter | [facility] | Transaction, | | | | | [address] | Provider Unknown | | | | | [place] | [phone] | | | | | [address] | | | | | | [phone] | | | +--------+ + + + [...] | + + + | BOB Bautista STRAFF[address] CT PELVIS W CONTRAST 01/22/2012 12:18 PM [...]
--- OUTSIDE RECORDS SUMMARY | ~2020-04-13 | XMS | Encounter Summary ---
Demographics + + + | Address | [address] [facility] | | | [place] [address] | + + + | Home Phone [...] Organization | [facility] | | | and [place] | + + + | Address | Unknown | + + + | Phone | Unavailable | + + + Support + + + + + | Name | Relationship | Address | Phone | + + + + + | Milady Burns | ECON | [address] | | | | | [place], [place] | | | | | [address] | | + + + + + Care Team Providers + +------+ + | Care Mat Machine Operator Name | Role | Phone [...] | [facility] | [address] | | | | | IMAGING [address] | [address] | | | | | [address] | [place] [address] | | | | | [place] [address] | | | | | | [phone] | | | +--------+ + + + [...]
--- OUTSIDE RECORDS SUMMARY | ~2020-04-13 | XMS | Encounter Summary ---
Demographics + + + | Address | [address] [facility] | | | [place] [address] | + + + | Home Phone [...] + | Tico Burns | ECON | [address] | | | | | [place], [place] | | | | | [address] | | + + + + + Care Team Providers + +------+ + | Care Video Game Script Writer Name | Role | Phone | + +------+ + | Moe Bella MD | PCP | | + +------+ + Encounter Details +--------+ + + + + | Date | Type | Department | Care Team | Description | +--------+ + + + + | 10/11/ | Abstract | Digestive Health | Violetta Byers, | | | 2011 | | Center at [facility] [address] | EMPLOYEE DEVELOPMENT MANAGER [address] | | | | | [address] | [facility] [address] | | | | | Mailcode: Center | [place], [place] | | | | | for Health and | [address] | | | | | [facility], [facility] 2 | [phone] | | | | | [place], [place] | | | | | | [address] | | | | | | [phone] | | | +--------+ + + + [...]
--- OUTSIDE RECORDS SUMMARY | ~2020-04-13 | XMS | Encounter Summary ---
Demographics + + + | Address | [address] [facility] | | | [place] [address] | + + + | Home Phone [...] Organization | [facility] | | | and [place] | + + + | Address | Unknown | + + + | Phone | Unavailable | + + + Support + + + + + | Name | Relationship | Address | Phone | + + + + + | Milady Burns | ECON | [address] | | | | | [place] | | | | | [address] | | + + + + + Care Team Providers + +------+ + | Care Sales Support Associate Name | Role | Phone | [...] [address] | | | | | [place], [place] | [place] [address] | | | | | [address] | [phone] | | | | | [phone] | | | +--------+--------+ + + + [...]
--- OUTSIDE RECORDS SUMMARY | ~2020-04-13 | XMS | Encounter Summary ---
Demographics + + + | Address | [address] [facility] | | | [place] [address] | + + + | Home Phone [...] | Organization | [facility] | | | and [place] | + + + | Address | Unknown | + + + | Phone | Unavailable | + + + Support + + + + + | Name | Relationship | Address | Phone | + + + + + | Milady Burns | ECON | [address] | | | | | [place], [place] | | | | | [address] | | + + + + + Care Team Providers + +------+ + | Care Pharmacist Helper Name | Role | Phone | [...] [address] | | | | | [address] [facility] [address] | [facility] | | | | | [place] | [address] [place] | | | | | [address] | [address] | | | | | [phone] | | | +--------+ + + + [...]
--- OUTSIDE RECORDS SUMMARY | ~2020-04-13 | XMS | Encounter Summary ---
Demographics + + + | Address | [address] [facility] | | | [place] [address] | + + + | Home Phone [...] + | Tico Burns | ECON | [address] | | | | | [place], [place] | | | | | [address] | | + + + + + Care Team Providers + +------+ + | Care Insole Bottom Filler Name | Role | Phone | + [...] Medical Records | | 2016 | | [place] [facility] [address] | [address] [facility] | Review | | | | [address] | [facility] | | | | | Mailcode: [place] | [place], [place] | | | | | [facility] and | [address] | | | | | [facility] 2 | [phone] | | | | | [place], [place] | | | | | | [address] | | | | | | [phone] | | | +--------+ + + + [...]
--- OUTSIDE RECORDS SUMMARY | ~2020-04-13 | XMS | Encounter Summary ---
Demographics + + + | Address | [address] [facility] | | | [place] [address] | + + + | Home Phone [...] [place], [place] | | | | | [address] | | + + + + + Care Team Providers + +------+ + | Care Mammal Keeper Name | Role | Phone | + [...] | Center at [facility] [address] | DATA ENTRY OPERATOR [address] | surgical options) | | | | [address] | , [address] | | | | | Mailcode: Center | [place], [place] | | | | | for Health and | [address] | | | | | [facility] 2 | [phone] | | | | | [place], [place] | | | | | | [address] | | | | | | [phone] | | | +--------+ + + + [...]
--- OUTSIDE RECORDS SUMMARY | ~2020-04-13 | XMS | Encounter Summary ---
Demographics + + + | Address | [address] [facility] | | | [place] [address] | + + + | Home Phone [...] + | Tico Burns | ECON | [address] | | | | | [place], [place] | | | | | [address] | | + + + + + Care Team Providers + +------+ + | Care Avionics Safety Inspector Name | Role | Phone | [...] | | | | | | | [facility] [place] | | | | | | | [address] | | | | | | | Phone: | | | | | | | [phone] | | | | | | | Fax: | | | | | | | [phone] | +--------+--------+ + + + + Encounter Details +--------+---------+ + + + | Date | Type | Department | Care Team | Description | +--------+---------+ + + + | 03/19/ | Office | Digestive Health | Jesus Perez, | Morbid obesity (HCC) | | 2013 | Visit | [place] [facility] [address] | [address] | (Primary Dx) | | | | [address] | [address] | | | | | Mailcode: [place] | [place], [place] | | | | | [facility] and | [address] | | | | | Healing, Building 2 | [phone] | | | | | [facility] [place] | | | | | | [address] | | | | | | [phone] | | | +--------+---------+ + + + [...]
--- OUTSIDE RECORDS SUMMARY | ~2020-04-13 | XMS | Encounter Summary ---
Demographics + + + | Address | [address] [facility] | | | [place] [address] | + + + | Home Phone [...] [facility] | | | and [place] | + + + | Address | Unknown | + + + | Phone | Unavailable | + + + Support + + + + + | Name | Relationship | Address | Phone | + + + + + | Milady Burns | ECON | [address] | | | | | [place], [place] | | | | | [address] | | + + + + + Care Team Providers + +------+ + | Care Php Software Engineer Name | Role | Phone | + +------+ + | Moe Bella MD | PCP | | + +------+ + Encounter Details +--------+ + + + + | Date | Type | Department | Care Team | Description | +--------+ + + + + | 06/02/ | Orders Only | [facility] | Provider, | | | 2018 | | SYSTEM GENERIC OP | [address] | | | | | CONVERSION [address] | [address] | | | | | [address] [place], [place] | [place] [address] | | | | | [address] | | | | | | [phone] | | | +--------+ + + + [...]
--- OUTSIDE RECORDS SUMMARY | ~2020-04-13 | XMS | Encounter Summary ---
Demographics + + + | Address | [address] [facility] | | | [place] [address] | + + + | Home Phone [...] + | Tico Burns | ECON | [address] | | | | | [place], [place] | | | | | [address] | | + + + + + Care Team Providers + +------+ + | Care Blueprint Clerk Name | Role | Phone | + +------+ + | Moe Bella MD | PCP | | + +------+ + Encounter Details +--------+ + + + + | Date | Type | Department | Care Team | Description | +--------+ + + + + | 12/18/ | Abstract | Digestive Health | Violetta Byers, | | | 2012 | | Center at [facility] [address] | [employer] [address] | | | | | [address] | [facility] [address] | | | | | Mailcode: Center | [place], [place] | | | | | for Health and | [address] | | | | | [facility], [facility] 2 | [phone] | | | | | [place], [place] | | | | | | [address] | | | | | | [phone] | | | +--------+ + + + [...]
--- OUTSIDE RECORDS SUMMARY | ~2020-04-13 | XMS | Encounter Summary ---
Demographics + + + | Address | [address] [facility] | | | [place] [address] | + + + | Home Phone [...] [place], [place] | | | | | [address] | | + + + + + Care Team Providers + +------+ + | Care Construction Tech Name | Role | Phone | [...] PPV | | | | | | [address] | | | | | | Loop Physician's | | | | | | [place], 4th Floor | | | | | | [place], [place] | | | | | | [address] | | | | | | [phone] | | | +--------+ + + + [...]
--- OUTSIDE RECORDS SUMMARY | ~2020-04-13 | XMS | Encounter Summary ---
Demographics + + + | Address | [address] [facility] | | | [place] [address] | + + + | Home Phone [...] + | Tico Burns | ECON | [address] | | | | | [place], [place] | | | | | [address] | | + + + + + Care Team Providers + +------+ + | Care Display Coordinator Name | Role | Phone | [...] | | | | (HCC) Type | [place] | [address] | | | | | II or | [address] | Mailcode: | | | | | unspecified | [place], | [facility] | | | | | type | [place] [address] | Health and | | | | | diabetes | Phone: | Healing, | | | | | mellitus | [phone] | Building 2 | | | | | without | Fax: | [place], [place] | | | | | mention of | [phone] | [address] | | | | | complication | | Phone: | | | | | , not stated | | [phone] | | | | | as | | Fax: | | | | | uncontrolled | | [phone] | +--------+--------+ + + + + Encounter Details +--------+---------+ + + + | Date | Type | Department | Care Team | Description | +--------+---------+ + + + | 04/24/ | Office | Digestive Health | Harpreet Fenton, | Follow-up | | 2012 | Visit | Center at [facility] [address] | [address] [facility] | examination after | | | | [place] | [address] | abdominal surgery | | | | Mailcode: Center | [place], [place] | (Primary Dx); Status | | | | for Health and | [address] | post bariatric | | | | [facility], [facility] 2 | [phone] | surgery | | | | [place], [place] | | | | | | [address] | | | | | | [phone] | | | +--------+---------+ + + + [...] of care. HARPREET FENTON MD [facility] [address] Mailcode: [place] [address] Rodriguze Wild MD - 04/24/2013 9:58 AM PDT04/24/2013 [...]
--- OUTSIDE RECORDS SUMMARY | ~2020-04-13 | XMS | Encounter Summary ---
Demographics + + + | Address | [address] [facility] | | | [place] [address] | + + + | Home Phone [...] [place], [place] | | | | | [address] | | + + + + + Care Team Providers + +------+ + | Care Production Worker Name | Role | Phone | + +------+ + | Moe Bella MD | PCP | | + +------+ + Reason for Visit + + + | Reason | Comments | + + + | Pre-operative | PANNICULECTOMY (GEN) on 04/11/2013 by Jesus Perez MD at [facility] | | evaluation | 6A | + + + Encounter Details +--------+---------+ + + + | Date | Type | Department | Care Team | Description | +--------+---------+ + + + | 04/10/ | Office | Preoperative | Sheryl Guerra | Preop examination | | 2012 | Visit | Medicine Clinic at | R, VARNISH MAKER [address] | (Primary Dx); Morbid | | | | [facility] 4th Floor [address] | obesity (HCC); DM | | | | [address] | [place], [place] | (diabetes mellitus) | | | | Mailcode: [facility] | [address] | ([facility]); Hypertension; | | | | [facility] | [phone] | Hyperlipidemia; | | | | and Healing, | | Localized adiposity; | | | | Building 1,4th Floor | | Lipoma of | | | | [place], [place] | | unspecified site; | | | | [address] | | S/P partial | | | | [phone] | | gastrectomy; Sleep | | | [...] or walk. Surgery Check in Locations Admitting [facility] Surgery Check in Time: The [...] it is after office hours, call the [facility] centrifugal operator at [phone] and ask them to page him or h er. Preparing For Your Surgery Video -- 7 minutes of instructions! Access the [facility] website [email or web address] --> POPULAR RESOURCES --> Patient Guide --> [...] Date RATE 69 12/26/2012 ATRIALRATE 69 12/26/2012 NM 186 12/26/2012 QRS 88 12/26/2012 QT 398 12/26/2012 QTC 426 12/26/2012 PAXIS 35 12/26/2012 RAXIS -54 12/26/2012 TAXIS 26 12/26/2012 EKGDX Value: Normal sinus rhythm Left anterior fascicular block Abnormal ECG "I have pers onally interpreted this report, either alone or with a trainee." Confirmed by VASYL TAN ([id number]) on 12/26/2012 10:49:35 PM 12/26/2012 MEDICAL DECISION MAKIN ACC/ AHA Perioperative Guidelines 1. Need for emergency noncardiac surgery? b. No -> Proceed to next step. 2. Active Cardiac Conditions? These conditions mandate further investigation and manageme nt. A. Acute VA within 7 days: no B. Unstable angina/Recent VA (7- 30 days): no C. Decompensated CHF: [...] no Rate of cardiac , non fatal VA, non fatal cardiac arrest (RCRI) 0 risk factors - 0.4% 1 risk factors - 1%, 2 risk factors - 7%, 3 or >risk factors - 11% (may benefit from perioperative beta blockers) Risk Factor Recommendations: 1-2 risk factors- proceed with planned surgery with HR control or consider noninvasive testing if it will change house attendant Surgery Risk: Intermediate Patient-related risk: Estimated ASA [...] to this patient's care. SHERYL GUERRA NP [facility] [address] [place] [address] [place] [address] documented in this encounter Plan of Treatment Not on filedocumented as of this encounter Procedures + +--------+ + + + | Procedure Name | Priori | Date/Time | Associated Diagnosis | Comments | | | ty | | | | + +--------+ + + + | NM COLLECTION VENOUS | Routin | 04/10/2013 | [...] the | | | | PDT | ([facility]) DM (diabetes | results section. | | | | | mellitus) ([facility]) | | | | | | Hypertension [...] CR, GLU, CA) | | PDT | ([facility]) DM (diabetes | results section. | | | | | mellitus) ([facility]) | | | | | | Hypertension [...] the | | | | PDT | ([facility]) DM (diabetes | results section. | | | | | mellitus) ([facility]) | | | | | | Hypertension [...] the | | | | PDT | ([facility]) DM (diabetes | results section. | | | | | mellitus) ([facility]) | | | | | | Hypertension [...] the | | | | PDT | ([facility]) DM (diabetes | results section. | | | | | mellitus) ([facility]) | | | | | | Hypertension [...] the | | | | PDT | ([facility]) DM (diabetes | results section. | | | | | mellitus) ([facility]) | | | | | | Hypertension [...] section. | | | | | mellitus) ([facility]) | | | | | | Hypertension [...] [facility] | [address] | [place] [address] | | | SERVICES, CORE | PARK [...] [facility] | [address] | [place] [address] | | | SERVICES, | [address] [...] | + + + + + | [facility] | [address] | [place] [address] | | | YVETTE | T[place] [...] | | | LABORATORY | | | LIBERIAN | | | SERVICES, | | | [...] | + + + + + | [facility] | [address] [facility] | [place] [address] | | | SERVICES, CORE | TJ [...] | + + + + + | [facility]INT | [address] [facility] | [place] [address] | | | OF CARE TESTS | [...]
--- OUTSIDE RECORDS SUMMARY | ~2020-04-13 | XMS | Encounter Summary ---
Demographics + + + | Address | [address] [facility] | | | [place] [address] | [...] | Organization | [facility] | | | and [place] | + + + | Address | Unknown | + + + | Phone | Unavailable | + + + Support + + + + + | Name | Relationship | Address | Phone | + + + + + | Milady Burns | ECON | [address] | | | | | [place], [place] | | | | | [address] | | + + + + + Care Team Providers + +------+ + | Care Electricians Top Helper Name | Role | Phone | [...] | | | [address] | [facility] | | | | | [place] | [address] [place] | | | | | [address] | [address] | | | | | [phone] | | | +--------+ + + + [...]
--- OUTSIDE RECORDS SUMMARY | ~2020-04-13 | XMS | Encounter Summary ---
Demographics + + + | Address | [address] [facility] | | | [place] [address] | + + + | Home Phone [...] | [facility] | | | and [place] | + + + | Address | Unknown | + + + | Phone | Unavailable | + + + Support + + + + + | Name | Relationship | Address | Phone | + + + + + | Milady Burns | ECON | [address] | | | | | [place] | | | | | [address] | | + + + + + Care Team Providers + +------+ + | Care Hearing Aide Technician Name | Role | Phone | [...] + + | 05/10/ | Office | [facility] | Jose Mirza | Cervical spondylosis | | 2016 | Visit | NEUROSURGERY [address] | with radiculopathy | | | | [address] | [address] | (Primary Dx); | | | | [place], [place] | [place] [address] | Foraminal stenosis | | | | [address] | [phone] | of cervical region; | | | | [phone] | | Degenerative disc | | | [...] t from the original. ERIC Maldonado [address] [facility], [address] [place], [place] [address] FAX: NEUROSURGERY HISTORY AND PHYSICAL EXAMINATION CHIEF [...] by mouth 2 times daily. ergocalciferol (ERGOCALCIFEROL) 53275 UNITS capsule Take 50,000 Units by mouth Once a w [place]. FLUoxetine (PROZAC) 20 mg capsule Take 20 mg by mouth Daily. Glucose Blood ([employer] BREEZE 2 TEST) DISK Use as directed [...] has no apparent deficits with short or shelter memory. CRANIAL NERVES: II: Acuity is intact. [...] Triceps 5 5 Wrist Flexion 5 4 Corn Press Operator Strength 5 4 Hip Flexion 5 [...]
--- OUTSIDE RECORDS SUMMARY | ~2020-04-13 | XMS | Encounter Summary ---
Demographics + + + | Address | [address] [facility] | | | [place] [address] | + + + | Home Phone [...] + | Tico Burns | ECON | [address] | | | | | [place], [place] | | | | | [address] | | + + + + + Care Team Providers + +------+ + | Care Wordpress Developer Name | Role | Phone | + +------+ + | Moe Bella MD | PCP | | + +------+ + Encounter Details +--------+ + + + + | Date | Type | Department | Care Team | Description | +--------+ + + + + | 12/13/ | Abstract | Digestive Health | Violetta Byers, | | | 2012 | | Center at [facility] [address] | INSURANCE LOSS ASSESSOR [address] | | | | | [address] | [facility] 350 | | | | | Mailcode: Center | [place], [place] | | | | | for Health and | [address] | | | | | [facility], [facility] 2 | [phone] | | | | | [place], [place] | | | | | | [address] | | | | | | [phone] | | | +--------+ + + + [...]
--- OUTSIDE RECORDS SUMMARY | ~2020-04-13 | XMS | Encounter Summary ---
Demographics + + + | Address | [address] [facility] | | | [place] [address] | + + + | Home Phone [...] + | Organization | [facility] | | | and [place] | + + + | Address | Unknown | + + + | Phone | Unavailable | + + + Support + + + + + | Name | Relationship | Address | Phone | + + + + + | Milady Burns | ECON | [address] | | | | | [place] | | | | | [address] | | + + + + + Care Team Providers + +------+ + | Care Repairer Typewriter Name | Role | Phone | + [...] | | [address] | [place] [address] | | | | | [place] | [phone] | | | | | [address] | | | | | | [phone] | | | +--------+ + + + [...]
--- OUTSIDE RECORDS SUMMARY | ~2020-04-13 | XMS | Encounter Summary ---
Demographics + + + | Address | [address] [facility] | | | [place] [address] | + + + | Home Phone [...] [place], [place] | | | | | [address] | | + + + + + Care Team Providers + +------+ + | Care Shoe Stitcher Odd Name | Role | Phone | + +------+ + | Moe Bella MD | PCP | | + +------+ + Encounter Details +--------+ + + + + | Date | Type | Department | Care Team | Description | +--------+ + + + + | 02/12/ | Telephone | Digestive Health | Jesus Perez, | | | 2012 | | [place] [facility] [address] | [address] [facility] | | | | | [address] | [address] | | | | | Mailcode: [place] | [place], [place] | | | | | [facility] and | [address] | | | | | [facility] 2 | [phone] | | | | | [place], [place] | | | | | | [address] | | | | | | [phone] | | | +--------+ + + + [...]
--- OUTSIDE RECORDS SUMMARY | ~2020-04-13 | XMS | Encounter Summary ---
Demographics + + + | Address | [address] | | | [place] [address] | + + + | Home Phone [...] + + + | Author | [facility] | + + + | Organization | [facility] | + + + | Address | Unknown | + + + | Phone | Unavailable | + + + Support + + + + + | Name | Relationship | Address | Phone | + + + + + | Tico Burns | ECON | [address] | | | | | [place], [place] | | | | | [address] | | + + + + + Care Team Providers + +------+ + | Care Media/Instructional Designer Name | Role | Phone | + [...] + + | 01/08/ | Hospital | [facility] [address] | Jesus Perez, | | | 2013 - | Encounter | [address] | [place] [address] [facility] | | | | | [place], [place] | [address] | | | 01/11/ | | [address] | [place], [place] | | | 2012 | | [phone] | [address] | | | | | | [phone] | | | | | | | [...] narcotic pain medications, please call the clinic ([phone] ) by 2 pm on for any [...] during the day time hours by calling [facility] surgery office at [phone] - After hours, weekends and holidays, you may call the hospital asphalt mixing machine operator at [phone] an d have the oracle endeca consultant Green Team for general surgery paged. [...] Author; JORGE CABAN MD Attending Physician: Jesus Preez MD Interval Hx: No acute events. NO [...] add ress. Zahra Dong MD, PGY1 Anesthesia Neurology Specialist Pager [phone] Florencia Ivy MD - 01/10/2013 7:49 AM PSTSURGERY INPATIENT PROGRESS NOTE Hospital Day:2 Author; FLORENCIA KATHLEEN MD, MIS/Bariatric Fellow, Pager [phone] Attending Physician: Jesus Perez MD Surgical Issues: [...] SERVICE NEURAXIAL BLOCK PROGRESS NOTE 01/10/2013 Author: Stehpanie Horan MACHINE BANDER AND CELLOPHANER HELPER POD# 2. Status post: 1. Attempted laparoscopic [...] and recommendations with primary care team provider [facility] RESHMA bey Surgery. . For today's evaluation, I have included my personal review of Mr. Burns's history and ph ysical examination. I also used the following components in my medical decision making: Laboratory studies reviewed. Review and summary of old medical records (source: [employer]), as summarized in the body of the note. Stephanie Horan NP Adult Pain Service Pager [phone] Team Pager [phone] BILLING INFORMATION [facility] DEPARTMENT: [id number] Place of Service:- Inpatient Date of Service: 01/10/2013 CSN: [id number] Suggested Modifier: None Suggested CPT: 19965 - Daily mgmt epidural/subarachnoid drug administration Prolonged service: n/a Florencia Ivy MD - 01/09/2013 12:53 PM PSTSURGERY INPATIENT PROGRESS NOTE Hospital Day:1 Author; FLORENCIA KATHLEEN MD, MIS/Bariatric Fellow, Pager [phone] Attending Physician: Jesus Perez MD Surgical Issues: [...] days. Epidural per APS. Kalina Adame AC MACHINE BANDER AND CELLOPHANER HELPER - 01/09/2013 11:29 AM PST Inpatient Progress [...] DISPO - requires acute care CRISTIN HOBSON [facility] [address] [place] [address] This assessment and plan was formulated both [...] studies reviewed. STEPHANIE HORAN NP BILLING INFORMATION [facility] DEPARTMENT: [id number] Place of Service:- Inpatient Date of Service: 01/09/2013 CSN: [id number] Suggested Modifier: None Suggested CPT: 11299 - Daily mgmt epidural/subarachnoid drug administration Prolonged service: n/a Hedy Villa - 2012 6:46 AM PSTMedical student progress note Overnight events/S: Mr. Burns is feeling well this morning. He did not get a lot of sle ep due to noise on the floor, but his pain (2/10, achy pain around incision site) is well co ntrolled and he is only using his MANGLE CATCHER pump about once an hour. He has [...] oral meds and tolerating PO. Hedy Wood [id number] signed by CRISTIN Hobson at 01/10/2013 12:06 [...] RT Continue current care. Alfonso Sousa MD Palliative Care Nurse Practitioner, PGY-1 Pager: [phone] [facility] [place] [phone] ung, MD Yahaira - 01/08/2013 3:37 PM [...] - YU | [address] | [place], [place] | | | BRIANNA CONNOLLY OF [facility] | [facility] | [address] | | | TESTS | | | [...] [facility] | [address] | [place] [address] | | | SERVICES, CORE | PARK [...] [facility] | [address] | [place] [address] | | | SERVICES, CORE | PARK [...] + + + + + | [facility] | [address] | [place] [address] | | | SERVICES, CORE | TJ [...] [facility] | [address] | [place] [address] | | | SERVICES, CORE | PARK [...] + + + + + | [facility] | [address] | [place] [address] | | | SERVICES, CORE | TJ [...] YU | [address] | [place], [place] | | | BRIANNA CONNOLLY OF [place] | [address] | [address] | | | TESTS | | | [...] SONJA NICHOLAS | [address] | [place], [place] | | | [facility] | [address] | [address] | | | TESTS | | | | + + + + + OPERATION RECORD (01/10/2013 8:03 AM PST) + + | Transcriptions | + + | Florencia Kathleen MD - 01/09/2013 7:00 PM PST Date: 01/08/2013 | | | | Attending Surgeon: Jesus Perez M.D. | | | | Washery Engineer(s): Florencia Kathleen MD | | | | [...] Biosyn and Indermil. Previously, a | | 19-Chinese round Delvin drain was placed to the [...] | | ME / HS | | [id number] / [id number] / [id number] / | | | | | + [...] [facility] | [address] | [place] [address] | | | SERVICES, CORE | TJ [...] [facility] | [address] | [place] [address] | | | SERVICES, CORE | PARK [...] + + + + + | [facility] | [address] | [place] [address] | | | SERVICES, CORE | TJ [...] [facility] | [address] | [place] [address] | | | SERVICES, CORE | PARK [...] | + + + + + | [facility] | [address] | [place] [address] | | | SERVICES, CORE | TJ [...] (H) | 60 - 99 mg/dL | [facility] - | | | GLUCOSE, [...] NICHOLAS | [address] | [place], [place] | | | [facility]ARE | [address] | [address] | | | TESTS | | | [...] MARQUAM | [address] | [place], [place] | | | BRIANNA CONNOLLY OF CARE | [address] | [address] | | | TESTS | | | [...] with | | some debris. A 14 Chinese Chau catheter over a wire. | | [...] draped in the usual sterile fashion. A 16-Chinese flexible | | Olympus cystoscope was advanced [...] | | An attempt to pass a 14-Chinese catheter over the wire, was also unsuccessful. | | The wire was removed and the cystoscope was replaced. A superstiff wire was | | then advanced into the meatus and bladder. The cystoscope was advanced | | over the wire into the patient's bladder. The above findings were noted. | | The cystoscope was removed. A 14-Chinese Councill catheter was then placed | | [...] | | | | Drains: | | 14-Chinese Chau catheter. | | | | Disposition: | | [place] for General Surgery procedure | | | | | | Yahaira Doran M.D. | | JS / HS | | [id number] / [id number] / [id number] / | | | | | + [...] YU | [address] | [place], [place] | | | BRIANNA CONNOLLY OF [facility] | [facility] | [address] | | | TESTS | | | [...] [facility] | [address] | [place] [address] | | | SERVICES, CORE | PARK [...] + + + + + | [facility] | [address] | [place] [address] | | | SERVICES, CORE | TJ [...] [facility] | [address] | [place] [address] | | | SERVICES, CORE | PARK [...] LABORATORY | [address] | [place] [address] | | | SERVICES, CORE | PARK [...] + + + + + | [facility] | [address] | [place] [address] | | | YVETTE, DAVEY | TJ [...] YU | [address] | [place], [place] | | | BRIANNA CONNOLLY OF [place] | [facility] | [address] | | | TESTS | | | [...] (H) | 60 - 99 mg/dL | [facility] - | | | GLUCOSE, [...] NICHOLAS | [address] | [place], [place] | | | BRIANNA CONNOLLY OF [facility] | [address] | [address] | | | TESTS | | | | + + + + + X-RAY PORTABLE CHEST 1 VIEW (01/08/2013 7:12 PM PST) + + + + + + | Component | Value | Ref Range | Performed | Pathologist | | | | | At | Signature | + + + + + + | X-RAY | [place] CHEST 1 VIEW, | | | | [...] + + + + + | [facility] | [address] | [place] [address] | | | SERVICES, CORE | TJ BULLOCK | | | + + + + + MAGNESIUM, PLASMA (01/08/2013 6:36 PM PST) + +---------+ + + + | Component | Value | Ref Range | Performed | Pathologist | | | | | At | Signature | + +---------+ + + + | MAGNESIUM,P | 1.7 (L) | 1.8 - 2.5 mg/dL | [facility] | | | LASMA | | | [...] | + + + + + | [facility] | [address] | [place] [address] | | | SERVICES, CORE | PARK [...] + + + + + | [facility] | [address] | [place] [address] | | | SERVICES, CORE | TJ [...] YU | [address] | [place], [place] | | | BRIANNA CONNOLLY OF [place] | [facility] | [address] | | | TESTS | | | [...] NICHOLAS | [address] | [place], [place] | | | BRIANNA CONNOLLY OF [place] | [address] | [address] | | | TESTS | | | [...] YU | [address] | [place], [place] | | | BRIANNA CONNOLLY OF [place] | [facility] | [address] | | | TESTS | | | [...] YU | [address] | [place], [place] | | | BRIANNA CONNOLLY OF [place] | [address] | [address] | | | TESTS | | | [...] NICHOLAS | [address] | [place], [place] | | | BRIANNA CONNOLLY OF [place] | [facility] | [address] | | | TESTS | | | [...] [place] | | | BRIANNA CONNOLLY OF [facility] | [address] | [address] | | | TESTS | | | [...] MARQUAM | [address] | [place], [place] | | | BRIANNA CONNOLLY OF [place] | [facility] | [address] | | | TESTS | | | [...] NICHOLAS | [address] | [place], [place] | | | [facility] | [address] | [address] | | | TESTS | | | [...] MARQUAM | [address] | [place], [place] | | | BRIANNA CONNOLLY OF CARE | [address] | [address] | | | TESTS | | | [...] NICHOLAS | [address] | [place], [place] | | | BRIANNA CONNOLLY OF CARE | [address] | [address] | | | TESTS | | | [...] EVELIAAM | [address] | [place], [place] | | | [facility] | [address] | [address] | | | TESTS | | | [...] [facility] | [address] | [place] [address] | | | SERVICES, | [address] [...] | + + + + + | [facility] | [address] | [place] [address] | | | SERVICES, | [address] [...] (H) | 60 - 99 mg/dL | [facility] - | | | GLUCOSE, [...] NICHOLAS | [address] | [place], [place] | | | BRIANNA CONNOLLY OF [facility] | [address] | [address] | | | TESTS | | | [...] A | | | | | | field representatives director section | | | | | | [...] | + + + + + | [facility] | [address] | [place] [address] | | | PATHOLOGY | [address] [...]
--- OUTSIDE RECORDS SUMMARY | ~2020-04-13 | XMS | Encounter Summary ---
Demographics + + + | Address | [address] [facility] | | | [place] [address] | + + + | Home Phone | | + + + | Preferred Language | Unknown | + + + | Marital Status | | + + + | Yazidi Affiliation | 1013 | + + + | Race | Unknown | + + + | Ethnic Group | Unknown | + + + Author + + + | Author | [facility] | | | and [place] | + + + | Organization | [facility] | | | and [place] | + + + | Address | Unknown | + + + | Phone | Unavailable | + + + Support + + + + + | Name | Relationship | Address | Phone | + + + + + | Milady Burns | ECON | [address] | | | | | [place], [place] | | | | | [address] | | + + + + + Care Team Providers + +------+ + | Care Elder Counselor Name | Role | Phone | [...] | | [address] | [place] [address] | | | | | [place] | [phone] | | | | | [address] | | | | | | [phone] | | | +--------+---------+ + + + [...] from t elpidio original. Chauncey Lee MD [address] [place] [address], [address] [place], [place] [address] FAX: NEUROSURGERY FOLLOW-UP CHIEF COMPLAINT: Chief Complaint [...] Medication Sig Dispense Refill TOMAS MICROLET LANCETS [facility] Use as directed cyclobenzaprine (FLEXERIL) 10 mg tablet Take 1 tablet by mouth every 8 hours as needed for Muscle spasms. 90 tablet 3 ergocalciferol (ERGOCALCIFEROL) 22904 UNITS capsule Take 50,000 Units by mouth Once a w tanacross. FLUoxetine (PROZAC) 20 mg capsule Take 20 [...] + | [facility] | [address] | [place], [place] | [phone] | | [facility] | | [address] | | | - IMAGING | | | | + + + + + documented in this encounter Visit Diagnoses + + | Diagnosis | + + | S/P cervical spinal fusion - Primary Arthrodesis status | + + documented in this encounter
--- OUTSIDE RECORDS SUMMARY | ~2020-04-13 | XMS | Encounter Summary ---
Demographics + + + | Address | [address] [facility] | | | [place] [address] | + + + | Home Phone [...] + | Tico Burns | ECON | [address] | | | | | [place], [place] | | | | | [address] | | + + + + + Care Team Providers + +------+ + | Care Dark Room Attendant Name | Role | Phone | [...] | | at [address] | [facility] | | | | | [address] | [place] [address] | | | | | [address] | | | | | | Zoe, [address] [place] [address] | | | | | | [place], [place] | | | | | | [address] | | | | | | [phone] | | | +--------+ + + + [...] | | | | | AMITA TAN ([id number]) | | | | | | on 12/26/2012 10:49:35 PM | | | | + + + + + + + + | Specimen | + + | | + + + + + | Narrative | Performed At | + + + | Please click | [facility] | | on view image for the detailed interpretation from Sand 9 results. | CARDIOLOGY | + + + + + + + + | Performing | Address | City/State/Zipcode | Phone Number | | Organization | | | | + + + + + | [facility] | [address] | [place], [place] | | | CARDIOLOGY | [address] | [address] | | + + + + + documented in this encounter Visit Diagnoses Not on filedocumented in this encounter
--- OUTSIDE RECORDS SUMMARY | ~2020-04-13 | XMS | Encounter Summary ---
Demographics + + + | Address | [address] [facility] | | | [place] [address] | + + + | Home Phone | | + + + | Preferred Language | Unknown | + + + | Marital Status | | + + + | Congregation Affiliation | 1013 | + + + | Race | Unknown | + + + | Ethnic Group | Unknown | + + + Author + + + | Author | [facility] | | | and [place] | + + + | Organization | [facility] | | | and [place] | + + + | Address | Unknown | + + + | Phone | Unavailable | + + + Support + + + + + | Name | Relationship | Address | Phone | + + + + + | Milady Burns | ECON | [address] | | | | | [place], [place] | | | | | [address] | | + + + + + Care Team Providers + +------+ + | Care Certification Technician Name | Role | Phone | [...] | | [address] | [place] [address] | | | | | [place] | [phone] | | | | | [address] | | | | | | [phone] | | | +--------+ + + + [...] + | [facility] | [address] | [place], [place] | [phone] | | [facility] | | [address] | | | - IMAGING | | | | + + + + + documented in this encounter Visit Diagnoses + + | Diagnosis | + + | S/P cervical spinal fusion - Primary Arthrodesis status | + + documented in this encounter"
--- OUTSIDE RECORDS SUMMARY | ~2020-04-13 | XMS | Encounter Summary ---
Demographics + + + | Address | [address] | | | [place] [address] | + + + | Home Phone | | + + + | Preferred Language | Unknown | + + + | Marital Status | | + + + | Jehovah'S Witness Affiliation | 1013 | + + + [...] [facility] | | | and [place] | + + + | Address | Unknown | + + + | Phone | Unavailable | + + + Support + + + + + | Name | Relationship | Address | Phone | + + + + + | Milady Burns | ECON | [address] | | | | | [place] | | | | | [address] | | + + + + + Care Team Providers + +------+ + | Care Patient Information Coordinator Name | Role | Phone | [...] | [address] | [address] | | | | | with | [facility], | [place], | | | | | radiculopath | [place] [address] | [place] | | | | | y | Phone: | [address] | | | | | Degenerative | [phone] | Phone: | | | | | disc | Fax: | [phone] | | | | | disease, | [phone] | Fax: | | | | | cervical | | [phone] | | | | | Foraminal | [...] | | | | | | | ([facility]) | | | | | | [...] | | | | | with | [facility], | [address] | | | | | radiculopath | [place] [address] | [place], | | | | | y | Phone: | [place] [address] | | | | | Degenerative | [phone] | Phone: | | | | | disc | Fax: | [phone] | | | | | disease, | [phone] | Fax: | | | | | cervical | | [phone] | | | | | Foraminal | [...] | | | | | | | ([facility]) | | | | | | [...] | | herniation | [address] | [place], [place] | | | | | Procedures | [place] | [address] | | | | | [place] OFFICE | [place] | Phone: | | | | | CONSULTATION | [address] | [phone] | | | | | NEW/ESTAB | Phone: | Fax: | | | | | PATIENT 60 | [phone] | [phone] | | | | | MIN | Fax: | | | | | | | [phone] | | +--------+--------+ + + + + Encounter Details +--------+---------+ + + + | Date | Type | Department | Care Team | Description | +--------+---------+ + + + | 04/04/ | Office | [facility] | Chauncey Lee MD | Cervical spondylosis | | 2016 | Visit | NEUROSURGERY [address] | [address] | with radiculopathy | | | | [address] | [place] [address] | (Primary Dx); | | | | KEN[place] | [phone] | Degenerative disc | | | | [address] | | disease, cervical; | | | | [phone] | | 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 Chauncey Lee MD [address] [facility], [address] [place], [place] [address] FAX: NEUROSURGERY HISTORY AND PHYSICAL EXAMINATION CHIEF [...] by mouth 2 times daily. ergocalciferol (ERGOCALCIFEROL) 13653 UNITS capsule Take 50,000 Units by mouth Once a w [place]. FLUoxetine (PROZAC) 20 mg capsule Take 20 [...] has no apparent deficits with short or penitentiary memory. CRANIAL NERVES: II: Acuity is intact. [...] Triceps 5 5 Wrist Flexion 5 4 Vp Clinical Research Strength 5 4 Hip Flexion 5 5 [...] | | | | | type ([facility]) Sleep | | | | | [...] | | | | | type ([facility]) Sleep | | | | | [...]
--- OUTSIDE RECORDS SUMMARY | ~2020-04-13 | XMS | Encounter Summary ---
Demographics + + + | Address | [address] [facility] | | | [place] [address] | + + + | Home Phone [...] + | Tico Burns | ECON | [address] | | | | | [place], [place] | | | | | [address] | | + + + + + Care Team Providers + +------+ + | Care Administrative Secretary Name | Role | Phone | + +------+ + | Moe Bella MD | PCP | | + +------+ + Encounter Details +--------+ + + + + | Date | Type | Department | Care Team | Description | +--------+ + + + + | 04/29/ | Telephone | [facility] | Jesus Perez, | | | 2012 | | M[place] | [address] | | | | | [place] Mailcode: CH4S | [facility] | | | | | [facility] | [place], [place] | | | | | and Healing, | [address] | | | | | [address] | [phone] | | | | | Floor [place], [place] | | | | | | [address] | | | | | | [phone] | | | +--------+ + + + [...]
--- OUTSIDE RECORDS SUMMARY | ~2020-04-13 | XMS | Encounter Summary ---
Demographics + + + | Address | [address] [facility] | | | [place] [address] | + + + | Home Phone [...] + | Tico Burns | ECON | [address] | | | | | [place], [place] | | | | | [address] | | + + + + + Care Team Providers + +------+ + | Care Fitness Worker Name | Role | Phone | + +------+ + | Moe Bella MD | PCP | | + +------+ + Encounter Details +--------+ + + + + | Date | Type | Department | Care Team | Description | +--------+ + + + + | 12/18/ | Abstract | [facility] | Violetta Byers, | | | 2012 | | Center at [facility] [address] | [place] [address] | | | | | [address] | [facility] | | | | | Mailcode: Center | [place], [place] | | | | | for Health and | [address] | | | | | [facility] | [phone] | | | | | [place], [place] | | | | | | [address] | | | | | | [phone] | | | +--------+ + + + [...]
[~2020-04-13 12:42] MED LIST changes: +WELLBUTRIN XL300 MG PO
--- NOTE | 2020-04-13 20:30 | NUR ---
PT ADMITTED TO ROOM 114 FROM ED @2019. REQUIRED MULT STAFF AND FLORIAN TRANSFER TO MOVE FROM STRETCHER TO BED. PT RECOGNIZED THIS RN, KNOWN TO ME FOR MANY YEARS. ABLE TO ANSWER QUESTIONS APPROPRIATELY. STATES HIS RIGHT HAND IS "TINGLY" STILL. HAS BEEN BED BOUND DUE TO BACK ISSUES. IS A FLORIAN TRANSFER AT HIS HOME, CARES FOR HIM. 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 HAS AN INVERTED PENIS, USES A "FRACTURE TERRAZAS" TO URINATE IN. BM'S ARE ON A BEDPAN AT HOME, OFTEN GOES EVERY 5-6 DAYS. BARIATIC BED HAS BEEN ORDERED, PLANNED TO DELIVER IN AM. IS SL, ADA DIET, RECEIVED A SALAD PER CHOICE IN THE ED. CALL LIGHT WITHIN REACH.
--- NOTE | 2020-04-13 22:26 | NUR ---
HELPED THE PATIENT REPOSITION THE RIGHT KNEE IN A FLEXED UP POSITION WITH PILLOWS.
--- NOTE | 2020-04-14 00:15 | NUR ---
PATIENT ASSESSMENT DONE. HIS PAIN IS DOWN TO A NORMAL LEVEL FOR HIM AT A 3/10. PATIENT IS READY TO GET SOME SLEEP CALL LIGHT IN REACH AND WATER IN REACH, PATIENT CAN USE BOTH WITH HIS LEFT HAND.
--- NOTE | 2020-04-14 02:00 | NUR ---
PATIENT CALLED. V/S AND I&O TAKEN AND RECORDED. HELPED PATIENT USE THE BED TERRAZAS. REFILLED WATER WITHOUT ICE. CALL LIGHT SOM MCGRAW.
--- NOTE | 2020-04-14 02:00 | NUR ---
PATIENT RESTING QUIETLY, EYES CLOSED, CALL LIGHT AND WATER IN REACH.
--- NOTE | 2020-04-14 03:03 | NUR ---
PATIENT'S RIGHT HAND IS MUCH MORE FUNCTIONAL AT THIS POINT, JUST A LITTLE NUMBNESS IN HIS FINER TIPS NOW. PATIENT VOIDED IN THE FRACTURE PAIN, IS ALERT AND ORIENTED AND WAER WAS REFILLED AND HE IS TRYING TO GO BACK TO SLEEP.
--- NOTE | 2020-04-14 06:24 | NUR ---
CALLED ABOUT PATIENT'S URINE OUTPUT. PATIENT SAID HE VOIDED ABOUT 250ML JUST BEFORE COMING TO US FROM THE ER, AND THEN HAS VOIDED 250 MLS SINCE HE HAS BEEN HERE. SO, APPROXIMATELY 500MLS AND PER HIS WEIGHT IT SHOULD BE 522.75MLS. DR. DELAROSA VERBALIZED UNDERSTANDING AND GAVE NO NEW ORDERS.
--- NOTE | 2020-04-14 07:20 | NUR ---
RECIEVED REPORT FROM KARENA CORBIN. INTRODUCED SELF TO PATIENT. ASSIST WITH FLORIAN LIFT ONTO BARIATRIC BED. TOLERATED WELL. DENIES OTHER NEEDS AT THIS TIME. CALL LIGHT IN REACH, BED RAILS UP X2.
--- NOTE | 2020-04-14 07:30 | NUR ---
ASSITED IN MOVING PATIENT FROM REG BED TO BARIATRIC BED USING FLORIAN. BS CHECKED AND SET UP FOR BREAKFAST. CALL LIGHT IN REACH
--- NOTE | 2020-04-14 09:32 | NUR ---
PATIENT AWAKE IN BED. VITALS AND IS DONE AND CHARTED. WTAER REFRESHED. CALL LIGHT IN REACH. PATIENT VERY HAPPY WITH NEW BED.
--- NOTE | 2020-04-14 09:45 | NUR ---
AM MEDICATIONS GIVEN. TAKES WITHOUT DIFFICULTY. ASSESSMENT COMPLETED. DENIES NEEDS AT THIS TIME. CALL LIGHT IN REACH. BED RAILS UP X2.
--- NOTE | 2020-04-14 10:00 | NUR ---
In and spoke with Gerard. CM assessment completed. Pt states he is awaiting a MRI. He states he has all his equipment that is needed at home. [facility] is currently seeing this pt for PT and bath aid. He states this is working well. Pt states he is unable to walk at all, and daughter provide care for him. Pt plans on going home if MRI is clear. Denies needs for any equipment.
--- NOTE | 2020-04-14 10:18 | NUR ---
PT ALERT, ORIENTED, AM FAMILIAR WITH THIS PT-HE RECOGNIZED ME. I FOUND PT IS VERY PLEASANT, WORKING TO BE UPBEAT. PT MENTIONED THAT FINGERS ON HIS R HAND ARE TINGLING AND HAS MORE USE THAN LAST NIGHT. PT REQUESTED HIS ARCHITECTURAL INTERN VISIT MADE CONTACT, PTS' ARCHITECTURAL INTERN WILL COME LATER TODAY. HAD PRAYER WITH PT AND LEFT A G.POST
--- NOTE | 2020-04-14 10:20 | NUR ---
LYING IN BED WITH HEAD OF BED ELEVATED. STATE BED WILL NOT STOP BEEPING, STAFF IN MULTIPLE TIMES TO ADJUST IT. NO OTHER COMPLAINTS AT THIS TIME. CALL LIGHT IN REACH. BED NOT BEEPING AT THIS TIME.
--- NOTE | 2020-04-14 12:40 | NUR ---
ASSESSMENT COMPLETED. STATES TINGLING AND NUMBNESS REMAIN IN RIGHT ARM BUT FEEL THEY ARE IMPROVING. ORIENTED X4 AT THIS TIME. NO OTHER CHANGES IN ASSESSMENT NOTED AT THIS TIME. DENIES OTHER NEEDS. CALL LIGHT IN REACH, BED RAILS UP.
--- NOTE | 2020-04-14 13:51 | NUR ---
RETURN FROM MRI. UNABLE TO COMPLETE MRI. DR. DELAROSA NOTIFIED. ASSIST BACK INTO BED USING FLORIAN LIFT. DENIES OTHER NEEDS AT THIS TIME. CALL LIGHT IN REACH. BED RAILS UP.
--- NOTE | 2020-04-14 14:00 | NUR ---
Notified by RN, imaging was unable to complete MRI due to pts weight. Dr. Walters will see shortly.
--- NOTE | 2020-04-14 14:55 | NUR ---
Discharge orders completed by Dr. Walters. Spoke with Gerard. He plans ondc to home. or daughter will meet him at home. He will require an ambulance transport as he is unable to walk or move himself due to his weight. Called [facility] and they will transport Gerard at 1530.
--- NOTE | 2020-04-14 15:08 | NUR ---
PATIENT CALLED TO HAVE HELP GATEHRING PERSONAL ITEMS FOR D/C. DISCHARGE VITALS AND I&OS DONE AND CHARTED. PHARMACY IN ALSO. CALL LIGHT IN REACH. NO OTHER NEEDS
--- NOTE | 2020-04-15 11:07 | EKG ---
[facility] [address] [facility] [place] [address] Signed Normal sinus rhythm Left axis deviation Low voltage QRS Anteroseptal infarct , old Abnormal ECG When compared with ECG of 02-JAN-2020 10:21, No significant change was found Confirmed by ULNA DELAROSA MD ([id number]) on 04/15/2020 11:07:35 AM Electronically Signed By: LUNA DELAROSA MD 04/15/20 1107 PATIENT NAME: AMANDALUCY ALYSA Electrocardiogram DATE OF : 63 PHYSICIAN: LUNA DELAROSA MD REPORT #: [id number] REPORT IS CONFIDENTIAL AND NOT TO BE RELEASED WITHOUT AUTHORIZATION
== END 2020-04-14 15:20 | disposition home or self-care (01) ==
LOC: ED 12:42 → MS 12:44
PROVIDERS: ADMIT Internal Medicine
DX: R20.2 Paresthesia of skin (principal); E11.65 Type 2 diabetes mellitus with hyperglycemia; R79.89 Other specified abnormal findings of blood chemistry; I10 Essential (primary) hypertension; E78.5 Hyperlipidemia, unspecified; F32.9 Major depressive disorder, single episode, unspecified; E03.9 Hypothyroidism, unspecified; E66.01 Morbid (severe) obesity due to excess calories; Z68.44 Body mass index [BMI] 60.0-69.9, adult; Z86.73 Personal history of transient ischemic attack (TIA), and cerebral infarction without residual deficits; Z88.5 Allergy status to narcotic agent; Z91.041 Radiographic dye allergy status; Z79.899 Other long term (current) drug therapy; Z79.4 Long term (current) use of insulin; Z79.82 Long term (current) use of aspirin
CPT/HCPCS: 36415; 70450; 70496; 70498; 71045; 80053; 80061; 83036; 84484; 85025; 93005; 93010; 93306; 96372; C9803; G0378; J1650; J1815; J2405; Q3014; Q9957; Q9967; U0002

== ENCOUNTER 2020-08-05 08:37 | Emergency (ER) | payer OTHER ==
[~2020-08-05] VITALS: Ht 172.7 cm; Wt 203.8 kg
--- OUTSIDE RECORDS SUMMARY | ~2020-08-05 | XMS | Encounter Summary ---
Demographics + + + | Address | [address] | | | [place] [address] | + + + | Home Phone | | + + + | Preferred Language | Unknown | + + + | Marital Status | | + + + | Evangelical Affiliation | CHR | + + + | Race | White | + + + | Ethnic Group | Not or | + + + Author + + + | Author | [facility] | + + + | Organization | [facility] | + + + | Address | Unknown | + + + | Phone | Unavailable | + + + Support + + + + + | Name | Relationship | Address | Phone | + + + + + | Tico Burns | ECON | [address] | | | | | [place], [place] | | | | | [address] | | + + + + + Care Team Providers + +------+ + | Care Signs Cleaner Name | Role | Phone | + +------+ + | Moe Bella MD | PCP | | + +------+ + Encounter Details +--------+ + + + + | Date | Type | Department | Care Team | Description | +--------+ + + + + | 02/12/ | Telephone | [facility] | Jesus Perez, | | | 2012 | | [place] [address] [address] | [address] [facility] [address] | | | | | [facility] | [facility] | | | | | for Health and | [place], [place] | | | | | [place] [address] | [address] | | | | | [place], [place] | [phone] | | | | | [address] | | | | | | [phone] | | | +--------+ + + + + Social History + +-------+ +--------+------+ | Tobacco Use | Types | Packs/Day | Years | Date | | | | | Used | | + +-------+ +--------+------+ | Never Smoker | | | | | + +-------+ +--------+------+ + + +---------+ + | Alcohol Use | Drinks/Week | oz/Week | Comments | + + +---------+ + | Yes | 0 Standard drinks | 0.0 | very rare | | | or equivalent | | | + + +---------+ + + + + | Sex Assigned at | Date Recorded | | | | + + + | Not on file | | + + + documented as of this encounter Miscellaneous Notes Telephone Encounter - Savanna Ho - 02/13/2013 8:40 AM PDTUpdated med list.Evelyn watters signed by Savanna Ho at 02/13/2013 8:40 AM PDTTelephone Encounter - Hipolito Ho - 02/12/2013 1:14 PM PDTOV notes and B12 sent to PCP. elephone Encounter - Sydney Jones - 02/12/2013 10:4 6 AM PDTSccamron Burns calling stated that his PCP was supposed to get some informatio n and also an order for a vitamin b12 injection and has not received it yet. Please call [employer] at work [phone] ext [phone] Advised caller that they may not receive a call back from nurse or provider until the next business day. Caller understands and is agreeable to this. Is it alright to leave a detailed message? Yes Pain Scale: 0/10 Recent Surgery or Procedure: Yes Pharmacy: Pharmacy Preferences: [id number] [place] [id number] documented in this encoun ter Plan of Treatment Not on filedocumented as of this encounter Visit Diagnoses Not on filedocumented in this encounter"
--- OUTSIDE RECORDS SUMMARY | ~2020-08-05 | XMS | Clinical Summary ---
Demographics + + + | Address | [address] | | | [place] [address] | + + + | Home Phone [...] | Tico Burns | ECON | [address] | | | | | [place], [place] | | | | | [address] | | + + + + + Care Team Providers + +------+ + | Care Judo Instructor Name | Role | Phone | + +------+ + | Moe Bella MD | PCP | | + +------+ + Source Comments SONJA is fully live on both EpicCare Ambulatory and EpicCare InPatient.[facility] Allergies + + + + [...] Overview: on CPAP | + + Encounters +--------+--------+ + + + | Date | Type | Specialty | Care Team | Description | +--------+--------+ + + + | 08/05/ | Intake | | | | | 2020 | | | | | +--------+--------+ + + + from Last 3 Months [...] on file | | + + + Last Filed Vital Signs + [...] + + Plan of Treatment + + +-------+ + | Health Maintenance | Due Date | Last | Comments | | | | Done | | + + +-------+ + | Pneumococcal | | | | | vaccination ( of | 0 | | | | - PPSV23) | | | | + + +-------+ + | Influenza (Flu) | | | | | vaccination (#1) | 0 | | | + + +-------+ + Results Not on filefrom Last 3 [...] + +------+ | MODA | MODA | [email or web address] | 11/05/19 | [phone] | [address] | P[address] | | | [place] | | [address] | [phone] | | | | [place] | | sent | | [place], | | | | | | | | [place] [address] | | +-------+--------+ +--------+ + +------+ + +--------+ +--------+ + + | Guarantor Name | Accoun | Relation to | Date | Phone | Billing Address | | | t Type | Patient | of | | | | | | | | | | + +--------+ +--------+ + + | Gerard Burns | Person | Self | [birth year] | [address] | | | al/Fam | | 1965 | [phone] | [place] [address] | | | yas | | | [...]
--- OUTSIDE RECORDS SUMMARY | ~2020-08-05 | XMS | Encounter Summary ---
Demographics + + + | Address | [address] | | | [place] [address] | + + + | Home Phone | | + + + | Preferred Language | Unknown | + + + | Marital Status | | + + + | Baptism Affiliation | 1013 | + + + | Race | White | + + + | Ethnic Group | Not or | + + + Author + + + | Author | [facility] | | | and [place] | + + + | Organization | [facility] | | | and [place] | + + + | Address | Unknown | + + + | Phone | Unavailable | + + + Support + + + + + | Name | Relationship | Address | Phone | + + + + + | Milady Burns | ECON | [address] | | | | | [place] | | | | | [address] | | + + + + + Care Team Providers + +------+ + | Care Process Maintenance Technician Name | Role | Phone | + +------+ + | Moe Bella MD | PCP | | + +------+ + Reason for Visit Auth/Cert +--------+--------+ + + + + | Status | Reason | Specialty | Diagnoses / | Referred By | Referred To | | | | | Procedures | Contact | Contact | +--------+--------+ + + + + | | | | Diagnoses | | | | | | | Other | | | | | | | spondylosis | | | | | | | with | | | | | | | radiculopath | | | | | | | y, cervical | | | | | | | region | | | | | | | Other | | | | | | | spondylosis | | | | | | | with | | | | | | | radiculopath | | | | | | | y, cervical | | | | | | | region | | | | | | | [M47.22] | | | | | | | Procedures | | | | | | | MA | | | | | | | ARTHRODESIS | | | | | | | ANT | | | | | | | INTERBODY | | | | | | | INC | | | | | | | DISCECTOMY, | | | | | | | CERVICAL | | | | | | | BELOW C2 | | | | | | | FUSION | | | | | | | CERVICAL | | | | | | | ANTERIOR W/ | | | | | | | PLATING | | | +--------+--------+ + + + + Encounter Details +--------+ + + + + | Date | Type | Department | Care Team | Description | +--------+ + + + + | 06/01/ | Anesthesia | [facility] | Yadi Dominguez | | | 2016 | Event | [facility] | MD Gokul [address] | | | | | [address] [place], [place] | | | | | [place], [place] | [address] | | | | | [address] | [phone] | | | | | [phone] | | | | | | | Brandyn Agee MD | | | | | | [address] | | | | | | [place], [place] | | | | | | [address] | | | | | | | | +--------+ + + + + Anesthesia Record + + + + + | Procedure Name | Responsible | Anesthesia Start | Anesthesia Stop Time | | | Anesthesiologist | Time | | + + + + + | C4-5, C5-6, C6-7 | Yadi Dominguez, | 06/01/16826 | 06/01/16 1107 | | Anterior Cervical | MD | | | | Discectomy Fusion | | | | | (N/A Neck) | | | | + + + + + +----+---+ + + | Da | T | Event | Comment | | te | i | | | | | m | | | | | e | | | +----+---+ + + | 07 | 0 | | | | /2 | 7 | | | | 8/ | 4 | | | | 20 | 1 | | | | 16 | | | | +----+---+ + + | | 0 | An Checkout | Pre-use anesthesia machine/equipment checkout. | | | 7 | | | | | 4 | | | | | 4 | | | +----+---+ + + | | 0 | An Start | | | | 7 | Data | | | | 4 | | | | | 4 | | | +----+---+ + + | | 0 | An Start | Reassessment prior to anesthesia induction/procedure. | | | 8 | | | | | 2 | | | | | 7 | | | +----+---+ + + | | 0 | an steven now | | | | 8 | | | | | 3 | | | | | 0 | | | +----+---+ + + | | 0 | Antibiotic | | | | 8 | Given | | | | 3 | | | | | 1 | | | +----+---+ + + | | 0 | Preoxygenat | | | | 8 | ed | | | | 3 | | | | | 7 | | | +----+---+ + + | | 0 | An | | | | 8 | Induction | | | | 3 | | | | | 9 | | | +----+---+ + + | | 0 | An | Smooth IV induction, mask airway established. Direct Laryngoscopy | | | 8 | Intubation | with Tubbs , ETT placed.Grade II view. BSEB/ETCO2 | | | 4 | | (auscultation and capnography) to confirm placement. Depth | | | 0 | | noted. Ventilator on. [NOTE: Overall obese airway but not | | | | | extraordinary. DL/ETT as normal. Mask Ventilation was at higher | | | | | pressures but easily accomplished.] | +----+---+ + + | | 0 | Pre-Procedu | Agreement | | | 8 | ral Timeout | | | | 5 | Completed | | | | 5 | | | +----+---+ + + | | 0 | First | | | | 8 | Inc/Proc St | | | | 5 | | | | | 9 | | | +----+---+ + + | | 1 | an steven now | Traction off | | | 0 | | | | | 2 | | | | | 3 | | | +----+---+ + + | | 1 | an steven now | Move to [place] from [place] Table. | | | 0 | | | | | 5 | | | | | 5 | | | +----+---+ + + | | 1 | Oropharynx | | | | 0 | Suctioned | | | | 5 | | | | | 8 | | | +----+---+ + + | | 1 | Extubated | | | | 0 | Deep | | | | 5 | | | | | 9 | | | +----+---+ + + | | 1 | an steven now | PACU | | | 1 | | | | | 0 | | | | | 1 | | | +----+---+ + + | | 1 | An Stop | Patient handed off to recovery nurse. | | | 0 | | | | | 7 | | | +----+---+ + + +------+ | Meds | +------+ + +---------+ | Name | Total | + +---------+ | midazolam | 2 mg | + +---------+ | propofol | 200 mg | + +---------+ | ketamine | 100 mg | + +---------+ | fentaNYL injection (2 mL) | 100 mcg | + +---------+ | HYDROmorphone | 2 mg | + +---------+ | succinylcholine | 120 mg | + +---------+ | ondansetron | 4 mg | + +---------+ | magnesium sulfate injection 500 | 1 g | | mg/mL (vial) | | + +---------+ | ceFAZolin (ANCEF, KEFZOL) 3 g in | 3 g | | sodium chloride 0.9% 50 mL IVPB | | + +---------+ | lactated ringers (LR) infusion | 900 mL | + +---------+ + + | Name | + + | N2O Flow Rate (L/Min) | + + | O2 Flow Rate (L/Min) | + + | Insp O2 | + + | Exp SEV | + + | Air Flow Rate (L/Min) | + + + + | No blood administrations on file. | + + +--------+ + + + | Type | Details | Placement | Removal | +--------+ + + + | Periph | 06/01/16; 0702; Right; Hand; | 06/01/16 0702 by | 06/02/16 1530 by | | eral | [id number] catheter system; | Milka Saxena RN | Amie Hurd RN | | IV | 20 gauge, 1 1/4 in length; | | | | | distraction, intradermal | | | | | injection, tolerated well; no | | | | | longer indicated; short term use; | | | | | 06/02/16; 1530 | | | +--------+ + + + | Airway | Placement Date: 06/01/16; | 06/01/16 08 by | 06/01/16 1059 by | | | Placement Time: 0840 (created via | Yadi Dominguez, | Yadi Dominguez, | | | procedure documentation); Mask | MD | MD | | | Ventilation: EZ; Airway Grade: | | | | | 2a; Laryngoscope Blade Size: 3; | | | | | Attempts: 1; Airway Type: | | | | | endotracheal; Size: 6.5; Airway | | | | | Tube Secured At: 23; Other | | | | | Equipment: stylette; Placement | | | | | Check: exhaled CO2 detection | | | | | device, video laryngoscope, | | | | | bilateral chest rise, breath | | | | | sounds equal bilaterally; Removal | | | | | Date: 06/01/16; Removal Time: | | | | | 1059; Additional Comments: | | | | | Neutral Head Position, no neck | | | | | flexion or extension attempted. | | | | | Smooth IV induction, mask airway | | | | | established. Direct Laryngoscopy | | | | | with Tubbs Laryngoscope, ETT | | | | | placed under video guidance. | | | | | BSEB/ETCO2 (auscultation and | | | | | capnography) to confirm | | | | | placement. Depth noted. | | | | | Ventilator on. | | | +--------+ + + + | Read | 06/01/16; 912; Right; neck; | 06/01/16912 by | 06/02/161808 by | | only - | healing within expectations; | Cristi Murrell RN | Amie Hurd RN | | | 06/02/16; 1808 | | | | Incisi | | | | | on | | | | +--------+ + + + | Drain/ | 06/01/16; 1042; #1; Right; | 06/01/16 1042 by | 06/02/16 1530 by | | Device | anterior; neck; collapsible | Cristi Murrell RN | Amie Hurd RN | | Site | closed device; 10FR ROUND DRAIN; | | | | | tip intact; short term use (1/2" | | | | | steris cut in half placed over | | | | | site.); 06/02/16; 1530 | | | +--------+ + + + | Pain | 06/01/16; 1128; Right; neck; | 06/01/16 1128 by | 06/03/16 0127 by | | Assess | 06/03/16; 0127 | Kelly Briseno RN | Discharge Provider, | | ment: | | | Automatic | | Number | | | | | Scale | | | | | | | | | | (0-10) | | | | +--------+ + + + documented in this encounter Social History + +-------+ +--------+------+ | Tobacco [...] + + documented as of this encounter [place] Notes Anesthesia Postprocedure Evaluation - Yadi Dominguez MD - 06/01/2016 11:24 AM PDTForm atting of this note might be different from the original. ANESTHESIA POSTANESTHESIA EVALUATION Gerard Burns 51 y.o. male 1965 [id number] Procedure(s) C4-5, C5-6, C6-7 Anterior Cervical Discectomy Fusion (N/A Neck) Cooperates? Yes Mental Status Performs simple tasks. Respiratory Satisfactory - Airway patent (self maintained). Cardiovascular Satisfactory Blood pressure and heart rate acceptable Temperature Satisfactory Pain Satisfactory N/V Control Satisfactory Hydration Satisfactory No signs of dehydration Complications None apparent Filed Vitals: 06/01/16 1105 06/01/16 1110 06/01/16 1115 BP: 159/97 158/102 150/96 Pulse: 71 73 70 Temp: Resp: 21 14 13 SpO2: 97% 97% 95% Electronically signed by Yadi Dominguez MD 06/01/2016 11:24 [facility] nesthesia Proced ure Notes - Yadi Dominguez MD - 06/01/2016 8:58 AM PDTAssociated Order(s): ANE AIRWAY NOTEAnesthesia Airway Placement 06/01/2016 8:40 Preprocedure check: patient identified, oxygen, airway assessed, patient reassessment prior to induction, airway equipment checked and suction Mask ventilation: easy Successful technique: Tubbs Laryngoscope blade size: 3 Airway grade: 2a (Partial view of glottis) Other equipment: stylette Attempts: 1 Airway type: endotracheal Size: 6.5 Cuffed: cuffed Route, reference point: right side of mouth Tube depth: 23 cm Tube secured with: adhesive tape Trauma: none Tube placement verification: carbon dioxide detection, equal bilateral breath sounds, bilat eral chest rise and video laryngoscope Performing provider: YADI DOMINGUEZ Comments: Neutral Head Position, no neck flexion or extension attempted. Smooth IV induction, mask airway established. Direct Laryngoscopy with Tubbs Laryngoscope, ETT placed under video guidance. BSEB/ETCO2 (auscultation and capnography) to confirm placement. Depth noted. Ventilator on. nesthesia Prepro cedure Evaluation - Yadi Dominguez MD - 06/01/2016 7:42 AM PDT ANESTHESIA PREANESTHESIA EVALUATION Gerard Burns 51 y.o. male 1965 [id number] Procedure(s): C4-5, C5-6, C6-7 Anterior Cervical Discectomy Fusion (N/A Neck) Medical history, anesthesia, medications, allergy, NPO status verified histories reviewed. Review of Systems / Med History Anesthesia History No anesthesia complications. Cardiovascular Negative except where noted below. (+) hypertension Pulmonary Negative except where noted below. (+) sleep apnea: known Neurology Negative except where noted below. Psychology Negative except where noted below. (+) depression Renal Negative except where noted below. Gastrointestinal/Hepatic Negative except where noted below. Endocrine Negative except where noted below. (+) hypothyroidism (+) Diabetes: IDDM (+) obesity: morbid BMI 40+ Other (+) arthritis Physical Exam Airway MP II, TM >3 FB, Mouth opening >2 FB. Neck: full ROM, extends >30 degrees. Jaw protrus ion normal. Dental Grossly normal except where noted below.; CV Rhythm regular. Rate Normal. (-) murmur. Pulm Clear to auscultation bilaterally. Anesthesia Plan ASA 3 Type: General. Induction: Intravenous. Potential problems: None anticipated, none anticipated. Monitors: Standard ASA monitors. Consent statement:Anesthetic plan, alternatives, risks and benefits discussed with patient. Risks discussed included (but were not limited to): sore throat, pain, disability, perioper ative CV events, infection, muscle aches, voice injury, drug reaction, heart problems, nause a, respiratory events, . Consenting person understands and agrees to proceed. RIsk of post-op intubation discussed. Airway within normal limits. Patient Active Problem List: MORBID OBESITY Hypertension Depression HYPERLIPIDEMIA Hypothyroidism DIABETES MELLITUS, TYPE II, UNCONTROLLED, WITH COMPLICATIONS - INSULIN DEPENDENT THYROID NODULE THYROID CANCER Cervical spondylosis with radiculopathy Degenerative disc disease, cervical Foraminal stenosis of cervical region Left arm weakness Sleep apnea, obstructive - on CPAP BMI 60.0-69.9, adult H/O Thyroid cancer Arthritis Beta Patricia Use . Electronically Signed by: Yadi Dominguez MD ESig date/time: 06/01/2016 7:42 documented in thi s encounter Plan of Treatment Not on filedocumented as of this encounter Procedures + +--------+ + + + | Procedure Name | Priori | Date/Time | Associated Diagnosis | Comments | | | ty | | | | + +--------+ + + + | ANE AIRWAY NOTE | Routin | 06/01/2016 | | Results for this | | | e | 8:58 AM | | procedure are in the | | | | PDT | | results section. | + +--------+ + + + documented in this encounter Results Anesthesia Airway Note (06/01/2016 8:58 AM PDT) + + + | Narrative | Performed At | + + + | Yadi Dominguez MD 06/01/2016 8:58 Anesthesia Airway | | | Placement 06/01/2016 8:40 Preprocedure check: patient identified, | | | oxygen, airway assessed, patient reassessment prior to induction, | | | airway equipment checked and suction Mask ventilation: easy | | | Successful technique: Tubbs Laryngoscope blade size: 3 Airway | | | grade: 2a (Partial view of glottis) Other equipment: stylette | | | Attempts: 1 Airway type: endotracheal Size: 6.5 Cuffed: cuffed | | | Route, reference point: right side of mouth Tube depth: 23 cm Tube | | | secured with: adhesive tape Trauma: none Tube placement | | | verification: carbon dioxide detection, equal bilateral breath | | | sounds, bilateral chest rise and video laryngoscope Performing | | | provider: YADI DOMINGUEZ Comments: Neutral Head Position, no | | | neck flexion or extension attempted. Smooth IV induction, mask | | | airway established. Direct Laryngoscopy with Tubbs Laryngoscope, | | | ETT placed under video guidance. BSEB/ETCO2 (auscultation and | | | capnography) to confirm placement. Depth noted. Ventilator on. | | | | | + + + documented in this encounter Visit Diagnoses Not on filedocumented in this encounter Administered Medications + +---------+ +------+------+------+ | Medication Order | MAR | Action | Dose | Rate | Site | | | Action | Date | | | | + +---------+ +------+------+------+ | ceFAZolin (ANCEF, KEFZOL) 3 g | New Bag | 06/01/20 | 3 g | | | | in sodium chloride 0.9% 50 mL | | 16 8:31 | | | | | IVPB 3 g, Intravenous, | | AM PDT | | | | | Administer over 30 Minutes, Prior | | | | | | | to Incision, Starting Maura | | | | | | | 06/01/16 at 0627, For 1 dose, | | | | | | | Administer within 1 hour of | | | | | | | surgical incision., Pre-op, | | | | | | | Indications: Surgical Prophylaxis | | | | | | + +---------+ +------+------+------+ +---+---+ | | | +---+---+ + +-------+ +--------+---+---+ | fentaNYL (PF) injection | Given | 06/01/20 | 50 mcg | | | | Intravenous, PRN, Pain, Starting | | 16 8:39 | | | | | Maura 06/01/16 at 0839, Anesthesia | | AM PDT | | | | | Intra-op | | | | | | + +-------+ +--------+---+---+ +-------+ +--------+---+---+ | Given | 06/01/20 | 50 mcg | | | | | 16 8:33 | | | | | | AM PDT | | | | +-------+ +--------+---+---+ +---+---+ | | | +---+---+ + +-------+ +------+---+---+ | HYDROmorphone (DILAUDID) 2 | Given | 06/01/20 | 1 mg | | | | mg/mL injection Intravenous, | | 16 9:00 | | | | | PRN, Pain, Starting Maura 06/01/16 | | AM PDT | | | | | at 0840, Anesthesia Intra-op | | | | | | + +-------+ +------+---+---+ +-------+ +------+---+---+ | Given | 06/01/20 | 1 mg | | | | | 16 8:40 | | | | | | AM PDT | | | | +-------+ +------+---+---+ +---+---+ | | | +---+---+ + +-------+ +--------+---+---+ | ketamine 50 mg/mL injection | Given | 06/01/20 | 100 mg | | | | Intravenous, PRN, Starting Maura | | 16 9:00 | | | | | 06/01/16 at 0900, Anesthesia | | AM PDT | | | | | Intra-op | | | | | | + +-------+ +--------+---+---+ +---+---+ | | | +---+---+ + +-------+ +-----+---+---+ | magnesium sulfate 500 mg/mL | Given | 06/01/20 | 1 g | | | | injection PRN, Starting Maura | | 16 9:00 | | | | | 06/01/16 at 0900, Anesthesia | | AM PDT | | | | | Intra-op | | | | | | + +-------+ +-----+---+---+ +---+---+ | | | +---+---+ + +-------+ +------+---+---+ | midazolam (VERSED) 1 mg/mL | Given | 06/01/20 | 1 mg | | | | injection Intravenous, PRN, | | 16 8:34 | | | | | Anxiety, Starting Maura 06/01/16 at | | AM PDT | | | | | 0831, Anesthesia Intra-op | | | | | | + +-------+ +------+---+---+ +-------+ +------+---+---+ | Given | 06/01/20 | 1 mg | | | | | 16 8:31 | | | | | | AM PDT | | | | +-------+ +------+---+---+ +---+---+ | | | +---+---+ + +-------+ +------+---+---+ | ondansetron (ZOFRAN) injection | Given | 06/01/20 | 4 mg | | | | Intravenous, PRN, Nausea, | | 16 8:31 | | | | | Vomiting, Starting Maura 06/01/16 at | | AM PDT | | | | | 0831, Anesthesia Intra-op | | | | | | + +-------+ +------+---+---+ +---+---+ | | | +---+---+ + +-------+ +--------+---+---+ | propofol (DIPRIVAN) injection | Given | 06/01/20 | 200 mg | | | | Intravenous, PRN, Starting Maura | | 16 8:39 | | | | | 06/01/16 at 0839, Anesthesia | | AM PDT | | | | | Intra-op | | | | | | + +-------+ +--------+---+---+ +---+---+ | | | +---+---+ + +-------+ +--------+---+---+ | succinylcholine (ANECTINE) | Given | 06/01/20 | 120 mg | | | | injection Intravenous, PRN, | | 16 8:30 | | | | | Starting Maura 06/01/16 at 0830, | | AM PDT | | | | | Anesthesia Intra-op | | | | | | + +-------+ +--------+---+---+ +---+---+ | | | +---+---+ documented in this encounter
--- OUTSIDE RECORDS SUMMARY | ~2020-08-05 | XMS | Encounter Summary ---
Demographics + + + | Address | [address] [facility] [address] | | | [place] [address] | + + + | Home Phone | | + + + | Preferred Language | Unknown | + + + | Marital Status | | + + + | Yazidism Affiliation | CHR | + + + | Race | White | + + + | Ethnic Group | Not or | + + + Author + + + | Author | [facility] | + + + | Organization | [facility] | + + + | Address | Unknown | + + + | Phone | Unavailable | + + + Support + + + + + | Name | Relationship | Address | Phone | + + + + + | Tico Burns | ECON | [address] | | | | | [place], [place] | | | | | [address] | | + + + + + Care Team Providers + +------+ + | Care Machinist Name | Role | Phone | + +------+ + | Moe Bella MD | PCP | | + +------+ + Reason for Visit + + + | Reason | Comments | + + + | Medical Records | [facility] - OUTSIDE LAB: lipid panel, CMP, hemoglobin, thyroglobulin | | Review | 11/03/2013, 12/19/2013, 03/23/2014 | + + + Encounter Details +--------+ + + + + | Date | Type | Department | Care Team | Description | +--------+ + + + + | 07/20/ | Abstract | Digestive Health | Violetta Byers, | Medical Records | | 2013 | | Center at [facility] [address] | 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
--- OUTSIDE RECORDS SUMMARY | ~2020-08-05 | XMS | Encounter Summary ---
Demographics + + + | Address | [address] [facility] | | | [place] [address] | + + + | Home Phone | | + + + | Preferred Language | Unknown | + + + | Marital Status | | + + + | Druze Affiliation | CHR | + + + | Race | White | + + + | Ethnic Group | Not or | + + + Author + + + | Author | [facility] | + + + | Organization | [facility] | + + + | Address | Unknown | + + + | Phone | Unavailable | + + + Support + + + + + | Name | Relationship | Address | Phone | + + + + + | Tico Burns | ECON | [address] | | | | | [place], [place] | | | | | [address] | | + + + + + Care Team Providers + +------+ + | Care Marketing Project Manager Name | Role | Phone | + [...] | Pain | Diagnoses | Conser, | Optical Goods Drill Operator Psych | | | | Management | Morbid | Violetta Sweeney NP | [facility] [address] | | | | | obesity | [address] | | | | | ([facility]) | [address], | Center for | | | | | Procedures | [address] | Health and | | | | | CONSULT TO | [place], [place] | Healing, | | | | | PAIN CENTER | [address] | Building | | | | | | Phone: | 1,15th Floor | | | | | | [phone] | [place], [place] | | | | | | Fax: | [address] | | | | | | [phone] | Phone: | | | | | | | [phone] | | | | | | | Fax: | | | | | | | [phone] | +--------+--------+ + + + + Encounter Details +--------+ + + + + | Date | Type | Department | Care Team | Description | +--------+ + + + + | 04/26/ | Documentati | Digestive Health | Violetta Byers, | | | 2011 | on | Center at [facility] [address] | AIRPORT DRIVER [address] | | | | | [address] | [facility] [address] | | | | | for Health and | [place], [place] | | | | | Healing, Building 2 | [address] | | | | | [place], [place] | [phone] | | | | | [address] | | | | | | [phone] | | | +--------+ + + + [...]
--- OUTSIDE RECORDS SUMMARY | ~2020-08-05 | XMS | Encounter Summary ---
Demographics + + + | Address | [address] [facility] | | | [place] [address] | + + + | Home Phone | | + + + | Preferred Language | Unknown | + + + | Marital Status | | + + + | Temple Affiliation | 1013 | + + + | Race | White | + + + | Ethnic Group | Not or | + + + Author + + + | Author | [facility] | | | and [place] | + + + | Organization | [facility] | | | and [place] | + + + | Address | Unknown | + + + | Phone | Unavailable | + + + Support + + + + + | Name | Relationship | Address | Phone | + + + + + | Milady Burns | ECON | [address] | | | | | [place] | | | | | [address] | | + + + + + Care Team Providers + +------+ + | Care Strike Off Machine Operator Name | Role | Phone | + +------+ + PCP | Unavailable | + +------+ + Encounter Details +--------+ + + + + | Date | Type | Department | Care Team | Description | +--------+ + + + + | 07/11/ | Hospital | [facility] | Harry Lechuga MD | | | 2010 - | Encounter | MED CTR SURGICAL | [address] [place] | | | | | [address] | [address] [place] | | | 07/13/ | | [place] [address] | [address] | | | 2010 | | [phone] | | | +--------+ + + + [...] documented as of this encounter Miscellaneous Notes Op Note - Harry Lechuga MD - 07/11/2011 8:08 AM PDTDATE: 07/11/2011 PREOPERATIVE DIAGNOSIS: Right thyroid nodule, suspicious on fine needle aspiration. POSTOPERATIVE DIAGNOSIS: PAPILLARY THYROID CARCINOMA. TEST PERFORMED: total thyroidectomy. OPERATING SURGEON: Harry Lechuga MD SKI INSTRUCTOR: Truman King MD PROCEDURE: After the patient was placed under general anesthetic, the anterior neck was in jected wit h 1% Xylocaine with epinephrine and then prepped and draped in a sterile fashion . A curvilinear incis ion was made through the skin and platysma. Flaps were elevated super iorly and inferiorly, and then t he strap muscles were in the midline. Following this, the muscle was dissected off of the r ight lobe of the thyroid gland. The inferior ve ins were ligated with 2-0 silk suture, and then the in ferior thyroid artery and vein were ligated. The parathyroid in this area was able to be preserved. D issection was carried maria del carmen und the lateral part of the gland and up superiorly. The superior thyroid ar florence and vein were ligated with 2-0 silk suture. The dissection was then carried underneath the gland , s taying on the gland to stay away from the recurrent laryngeal nerve. The dissection was then anil ed up off of the thyroid cartilage, and the isthmus was clamped across, and this lob e of the gland wa s sent for path examination. The path report came back as papillary thyro id carcinoma, and the surger y was then converted to a total thyroidectomy. The inferior ve ins were ligated with 2-0 silk suture. The inferior and superior parathyroid were noted on this side and were protected. The inferior artery and middle thyroid vein were ligated with 3-0 silk suture. The superior thyroid artery and vein were ligated with 3-0 silk suture, a nd then the gland was dissected off of the recurrent nerve and remove d and sent for final permanent pathology examination. The wound was then checked on both sides, irrig ated and w ashed well to be sure good hemostasis were present. There was a small amount of oozing arou nd the left hilar area, and this was treated with some Surgicel. A #15 Evens-Plata drain was placed and sutured in with a 2-0 silk suture. The strap muscles were reapproximated in the midline with 3-0 Vicryl suture as was the deep layer of skin. A 4-0 subcuticular Prolen e suture was used to close the skin edge. Once this was completed, the wound was treated wi th Mastisol and then Steri-Strips. The deidra pfeiffer was awakened from his anesthetic and return ed to the recovery room in stable condition. PROGNOSIS: Immediate/remote is good. ESTIMATED BLOOD LOSS: 25 mL. DICTATED BY: Harry Lechuga MD Otolaryngology JOB #: [id number] EXT JOB #:[id number] <Electronicall y Signed by Harry Lechuga MD> 07/12/11925 documented in this encounter Plan of Treatment [...] + + | [facility] | [address] | [place] | [phone] | | [facility] | | [address] | | | - LABORATORY | | | | + + + + + | [facility] | [address] | [place], [place] | | | [facility] | | [address] | | | - LABORATORY | [...] + | [facility] | [address] | [place] | [phone] | | [facility] | | [address] | | | - LABORATORY | | | | + + + + + | [facility] | [address] | [place], [place] | | | [facility] | | [address], [facility] | | | - LABORATORY | | [...] + + | [facility] | [address] | [place] | [phone] | | [facility] | | [address] | | | - LABORATORY | | | | + + + + + | [facility] | [address] | [place] | | | [facility] | | [address] | | | - LABORATORY | [...] | | | | | mg/dL | [place] | | | | | | [...] | + + + + + | [facility] | [address] | [place], [place] | [phone] | | [facility] | | [address] | | | - LABORATORY | | | | + + + + + | [facility] | [address] | [place], [place] | | | [facility] | | [address], [facility] | | | - LABORATORY | | | | + + + + + documented in this encounter Visit Diagnoses Not on filedocumented in this encounter"
--- OUTSIDE RECORDS SUMMARY | ~2020-08-05 | XMS | Encounter Summary ---
Demographics + + + | Address | [address] [facility] | | | [place] [address] | + + + | Home Phone | | + + + | Preferred Language | Unknown | + + + | Marital Status | | + + + | Quaker Affiliation | CHR | + + + | Race | White | + + + | Ethnic Group | Not or | + + + Author + + + | Author | [facility] | + + + | Organization | [facility] | + + + | Address | Unknown | + + + | Phone | Unavailable | + + + Support + + + + + | Name | Relationship | Address | Phone | + + + + + | Tico Burns | ECON | [address] | | | | | [place], [place] | | | | | [address] | | + + + + + Care Team Providers + +------+ + | Care Student Union Consultant Name | Role | Phone | + +------+ + | Moe Bella MD | PCP | | + +------+ + Reason for Visit + +--------+ + | Reason | Onset | Comments | | | Date | | + +--------+ + | Possible Wound | 01/27/ | | | Infection | 2012 | | + +--------+ + Encounter Details +--------+ + + + + | Date | Type | Department | Care Team | Description | +--------+ + + + + | 01/27/ | Telephone | Digestive Health | Chris Jesus, | Possible Wound | | 2012 | | Center [address] | [address] | Infection | | | | Ave Mailcode: CH4S | [facility] | | | | | [facility] | [place], [place] | | | | | and Healing, | [address] | | | | | [place] [address], [facility] | [phone] | | | | | Floor [place], [place] | | | | | | [address] | | | | | | [phone] | | | +--------+ + + + [...] Notes Telephone Encounter - Savanna Ho - 01/27/2013 11:01 AM PDTI confirmed he is schedule d with PCP today and we will see him [place] for his ost op follow up. elephone Encounter - Savanna Ho - 2012 9:00 AM PDTI spoke with Gerard and called his local provider. They will get him in toda y or send him to local ED. elephone Encounter - Dustin Kari - 01/27/2013 8:04 AM PDTPt calling to report a few d ays ago he developed an infection in his incision site. Pt stated he has a watery-yellow discharge. The skin is warm to the touch. Pt has a fever of 101 degrees. Temperature was taken at 7:30am today. Pt denies vomiting/diarrhea. Surgery: ATTEMPTED LAPAROSCOPIC, OPEN EXPLORATORY LAPAROTOMY, LYSIS OF ADHESIONS, SLEEVE GA STRECTOMY (DOS 01/08) Call back TEL [phone] documented in this encounte r Plan of Treatment Not on filedocumented as of this encounter Visit Diagnoses Not on filedocumented in this encounter"
--- OUTSIDE RECORDS SUMMARY | ~2020-08-05 | XMS | Encounter Summary ---
Demographics + + + | Address | [address] [facility] | | | [place] [address] | + + + | Home Phone | | + + + | Preferred Language | Unknown | + + + | Marital Status | | + + + | Yarsani Affiliation | 1013 | + + + | Race | White | + + + | Ethnic Group | Not or | + + + Author + + + | Author | [facility] | | | and [place] [...] [place] | | | | | [address] | | + + + + + Care Team Providers + +------+ + | Care Ground Layer Name | Role | Phone | + +------+ + | Moe Bella MD | PCP | | + +------+ + Reason for Visit +---------+ + | Reason | Comments | +---------+ + | Post Op | 12w PO | +---------+ + Encounter Details +--------+---------+ + + + | Date | Type | Department | Care Team | Description | +--------+---------+ + + + | 09/14/ | Office | [facility] | Chauncey Lee MD | S/P cervical spinal | | 2016 | Visit | NEUROSURGERY [address] | [address] | fusion (Primary Dx) | | | | [address] | [place] [address] | | | | | [place] | [phone] | | | | | [address] | | | | | | [phone] | | | +--------+---------+ + + + [...] + + + | Blood Pressure | 122/80 | 09/14/2016 11:07 AM | | | | | PST | | + + + + + | Pulse | 88 | 09/14/2016 11:07 AM | | | | | PST | | + + + + + | Temperature | - | - | | + + + + + | Respiratory Rate | 18 | 09/14/2016 11:07 AM | | | | | PST | | + + + + + | Oxygen Saturation | - | - | | + + + + + | Inhaled Oxygen | - | - | | | Concentration | | | | + + + + + | Weight | 195 kg (430 lb) | 09/14/2016 11:07 AM | | | | | PST | | + + + + + | Height | 175.3 cm (5' 9") | 09/14/2016 11:07 AM | | | | | PST | | + + + + + | Body Mass Index | 63.5 | 09/14/2016 11:07 AM | | | | | PST | | + + + + + documented in this encounter Progress Notes Chauncey Lee MD - 09/14/2016 11:36 AM PSTFormatting of this note might be different from jose mcfarland. Chauncey Lee MD [address] [place] [address], [address] [place] [address] FAX: NEUROSURGERY FOLLOW-UP CHIEF COMPLAINT: Chief Complaint Patient presents with Post Op 12w PO HISTORY OF PRESENT ILLNESS: The patient is a 51 y.o. male that had a cervical fusion for r adiculopathy around 4 months. He returns and overall is doing well. The patient's swallowi ng has improved. He has less pain in his neck and his arm has recovered its strength with n o pain. The patient has been walking as much as directed. The patient has had no issues w ith his surgical site. CURRENT MEDICATIONS: Current Outpatient Prescriptions Medication Sig Dispense Refill TOMAS MICROLET LANCETS MISC Use as directed cyclobenzaprine (FLEXERIL) 10 mg tablet Take 1 tablet by mouth every 8 hours as needed for Muscle spasms. 90 tablet 3 ergocalciferol (ERGOCALCIFEROL) 93679 UNITS capsule Take 50,000 Units by mouth Once a w [place]. FLUoxetine (PROZAC) 20 mg capsule Take 20 mg by mouth Daily. Glucose Blood (Proterra BREEZE 2 TEST) DISK Use as directed insulin glargine (LANTUS) 100 units/mL injection Inejct 60 units at bedtime insulin lispro (HUMALOG) 100 units/mL injection (vial) Inject under the skin 3 times d aily (before meals). 20 units breakfast/lunch, 25 units bedtime lactulose 10 g/15 mL solution Take 30 mLs by mouth Daily as needed. 240 mL PRN levothyroxine (SYNTHROID) 50 mcg tablet Take 50 mcg by mouth Daily. levothyroxine (SYNTHROID, LEVOTHROID) 200 mcg tablet Take 200 mcg by mouth every mornin g (before breakfast). losartan-hydrochlorothiazide (HYZAAR) 100-25 MG per tablet Take 100-25 mg by mouth Arya y. metFORMIN (GLUMETZA) 1000 MG 24 hr tablet Take 1,000 mg by mouth daily (with breakfast) . metoprolol (TOPROL XL) 200 MG 24 hr tablet Take 200 mg by mouth Daily. oxyCODONE 10 MG TABS Take 0.5-2 tablets by mouth every 3 hours as needed. 120 tablet 0 rosuvastatin (CRESTOR) 40 MG tablet Take 40 mg by mouth Daily. No current facility-administered medications for this visit. ALLERGIES: Allergies Allergen Reactions Codeine Sulfate Itching and Rash SOCIAL HISTORY: The patient reports that he has never smoked. He has never used smokeless tobacco. He repo rts that he drinks alcohol. He reports that he does not use illicit drugs. INTERIM PHYSICAL EXAMINATION: Blood pressure 122/80, pulse 88, resp. rate 18, height 1.753 m (5' 9"), weight 195.047 kg ( 430 lb). Body mass index is 63.47 kg/(m^2). GENERAL: Gerard Burns is in no acute distress with unlabored respirations. SPINE: The patient s incision is well healed. EXTREMITIES: No lower extremity edema. NEUROLOGICAL EXAMINATION: MENTAL STATUS: The patient is awake, alert, and oriented. He follows simple and complex commands MOTOR EXAM: Motor strength is 5/5 in upper extremities. This is improved when compared to the preoperative exam. SENSORY EXAM: The sensory examination is improved when compared to the preoperative exam. RADIOGRAPHIC REVIEW: The patient s x-rays show stable instrumentation and alignment and were reviewed with the patient today. Increased bony fusion is noted but it is not complete. His variable screws have changed angles at the upper segment but this is expected. ASSESSMENT: Encounter Diagnosis Name Primary? 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 Most of the preoperative symptoms are resolving as exp ected. I increased the patient s activities now allowing a 30 pound lifting restriction that can be gradually increased to an as tolerated limit. The patient should increase range of cinthya on activities as tolerated. The patient has completed formal rehabilitation now. They shou ld continue regular exercise and strengthening with the hope that they can avoid additional surgery. His fusion has slowly increased but has not fused at 4 months out. I would recommended a b one growth stimulator to assist with his multilevel fusion. His insurance has been slow to authorize this treatment despite its proven efficacy and may put him at risk for further ope ration. He will return in about 6 months with new x-rays. ELECTRONICALLY SIGNED BY: Chauncey Lee MD, 09/14/2016 11:36 documented in this encou nter Plan of Treatment Not on filedocumented as of this encounter Results XR Cervical Spine 2 or 3 Views (03/16/2017 8:13 AM PDT) + + | Specimen | + + | | + + + + + | Narrative | Performed At | + + + | XR CERVICAL SPINE 2 OR 3 VIEWS 03/16/2017 8:13 AM HISTORY: | [facility] | | Postop. COMPARISON: Multiple priors. FINDINGS: Visualized | [facility] [place] | | skull base and facial structures demonstrate no acute findings. | MEDICAL CENTER | | Prevertebral soft tissues are normal. Again observed are hardware | - IMAGING | | for anterior fusion from C4 through C7 with interbody graft material | | | at the levels. The hardware are intact. Bone mineralization is | | | normal. The dens is normal. Vertebral body height are preserved with | | | no evidence for compression fractures. Disc height are maintained. | | | Facet joints are intact. Soft tissue structures are unremarkable. | | | Visualized upper chest demonstrates no acute findings. IMPRESSION | | | - Stable anterior fusion from C4 through C7. Dictated and Signed | | | by: Keo Amado MD Electronically signed: 03/16/2017 8:23 AM | | + + + + + | Procedure Note | + + | [place], Rad Results In - 03/16/2017 8:26 AM PDT XR CERVICAL SPINE 2 OR 3 VIEWS | | 03/16/2017 8:13 AMHISTORY: Postop.COMPARISON: Multiple priors.FINDINGS:Visualized skull | | base and facial structures demonstrate no acute findings.Prevertebral soft tissues are | | normal.Again observed are hardware for anterior fusion from C4 through C7 withinterbody | | graft material at the levels. The hardware are intact. Bonemineralization is normal. The | | dens is normal. Vertebral body height arepreserved with no evidence for compression | | fractures. Disc height aremaintained. Facet joints are intact. Soft tissue structures | | are unremarkable.Visualized upper chest demonstrates no acute findings. IMPRESSION | | -Stable anterior fusion from C4 through C7.Dictated and Signed by: Keo Amado MD | | Electronically signed: 03/16/2017 8:23 AM | |Again observed are hardware for anterior fusion from C4 through C7 with | |interbody graft material at the levels. The hardware are intact. Bone | |mineralization is normal. The dens is normal. Vertebral body height are | |preserved with no evidence for compression fractures. Disc height are | |maintained. Facet joints are intact. Soft tissue structures are unremarkable. | |Visualized upper chest demonstrates no acute findings. | | | |IMPRESSION - | |Stable anterior fusion from C4 through C7. | | | |Dictated and Signed by: Keo Amado MD | | Electronically signed: 03/16/2017 8:23 AM | + + + + + + + | Performing | Address | City/State[facility] | Phone Number | | Organization | | | | + + + + + | [facility] | [address] | [place], [place] | [phone] | | [facility] | | [address] | | | - IMAGING | | | | + + + + + documented in this encounter Visit Diagnoses + + | Diagnosis | + + | S/P cervical spinal fusion - Primary Arthrodesis status | + + documented in this encounter
--- OUTSIDE RECORDS SUMMARY | ~2020-08-05 | XMS | Encounter Summary ---
Demographics + + + | Address | [address] | | | [place] [address] | + + + | Home Phone | | + + + | Preferred Language | Unknown | + + + | Marital Status | | + + + | Zoroastrianism Affiliation | 1013 | + + + | Race | White | + + + | Ethnic Group | Not or | + + + Author + + + | Author | [facility] | | | and [place] | + + + | Organization | [facility] | | | and [...] [place] | | | | | [address] | | + + + + + Care Team Providers + +------+ + | Care Oyster Floater Name | Role | Phone | + +------+ + | Moe Bella MD | PCP | | + +------+ + Reason for Visit + +--------+ + | Reason | Onset | Comments | | | Date | | + +--------+ + | Medication Refill | 07/03/ | | | | 2015 | | + +--------+ + Encounter Details +--------+--------+ + + + | Date | Type | Department | Care Team | Description | +--------+--------+ + + + | 07/03/ | Refill | [facility] | Chauncey Lee MD | Medication Refill | | 2015 | | NEUROSURGERY [address] | [address] | | | | | [address] | [place] [address] | | | | | [place] | [phone] | | | | | [address] | | | | | | [phone] | | | +--------+--------+ + + + [...] this encounter Miscellaneous Notes Telephone Encounter - Judith Peres - 07/04/2016 10:06 AM PDTRx sent via Certified Amber l# [id number] [phone]. Gerard is updated at this time, and advised that this will go out with the general mail eriki very tomorrow 07/05/16. He verbalized understanding. elephone Dana - Ever Swenson PA-C - 07/04/2016 9:28 AM PDTapprovedEl ectronically signed by Ever Swenson PA-C at 07/04/2016 9:[address] Judith Beaulieu - 07/03/2016 4:28 PM PDTMedication Refill Request Procedure: 06/01/16 Date of Surgery: C4-7 ACDF Medication requested: Oxycodone 10 mg Do you have a pain contract with any providers: No Are you receiving pain medication prescriptions from any other providers: No Current intake: 2 tabs every 6 hours Date of last refill: 06/02/16 # of tabs left/or when will patient run out of this medication: He will run out on of next week. Where is pain located? Type of pain (constant, intermittent, sharp, dull)? : Pain is prima rily in between his shoulder blades, base of his neck. Describes the pain as "ache", intermi ttent. 04/14. Send in the mail or call in to preferred pharmacy? Send in the mail. Address verified at this time. documented in this enc ounter Plan of Treatment Not on filedocumented as of this encounter Visit Diagnoses + + | Diagnosis | + + | S/P cervical spinal fusion - Primary Arthrodesis status | + + documented in this encounter
--- OUTSIDE RECORDS SUMMARY | ~2020-08-05 | XMS | Encounter Summary ---
Demographics + + + | Address | [address] | | | [place] [address] | + + + | Home Phone [...] + + + | Author | [facility] | + + + | Organization | [facility] | + + + | Address | Unknown | + + + | Phone | Unavailable | + + + Support + + + + + | Name | Relationship | Address | Phone | + + + + + | Tico Burns | ECON | [address] | | | | | [place], [place] | | | | | [address] | | + + + + + Care Team Providers + +------+ + | Care Teaching Supervisor Name | Role | Phone | + +------+ + | Moe Bella MD | PCP | | + +------+ + Encounter Details +--------+ + + + + | Date | Type | Department | Care Team | Description | +--------+ + + + + | 12/24/ | Telephone | [facility] | Jesus Perez, | | | 2012 | | [place] [address] | [address] | | | | | [place] Mailcode: CH4S | [facility] | | | | | [facility] | [place], [place] | | | | | and Healing, | [address] | | | | | [address] | [phone] | | | | | Floor [place], [place] | | | | | | [address] | | | | | | [phone] | | | +--------+ + + + [...] Notes Telephone Encounter - Savanna Ho - 12/24/2012 11:31 AM PSTI let Nita know the silvino ent is aware he does not have bariatric benefits and will be self pay. elephone Encounter - Kari Chan - 12/24/19 13 9:08 AM KARENA Dalymanager training at [facility], calling because she cook s not been notified of the pt's surgery and it is not authorized. Call back TEL [phone] signed by Kari Chan at 12/24/2012 9:09 AM PSTd ocumented in this encounter Plan of Treatment Not on filedocumented as of this encounter Visit Diagnoses Not on filedocumented in this encounter"
--- OUTSIDE RECORDS SUMMARY | ~2020-08-05 | XMS | Encounter Summary ---
Demographics + + + | Address | [address] | | | [place] [address] | + + + | Home Phone | | + + + | Preferred Language | Unknown | + + + | Marital Status | | + + + | Yarsani Affiliation | CHR | + + + | Race | White | + + + | Ethnic Group | Not or | + + + Author + + + | Author | [facility] | + + + | Organization | [facility] | + + + | Address | Unknown | + + + | Phone | Unavailable | + + + Support + + + + + | Name | Relationship | Address | Phone | + + + + + | Tico Burns | ECON | [address] | | | | | [place], [place] | | | | | [address] | | + + + + + Care Team Providers + +------+ + | Care Tax Consultant Name | Role | Phone | + +------+ + | Moe Bella MD | PCP | | + +------+ + Reason for Visit + +--------+ + | Reason | Onset | Comments | | | Date | | + +--------+ + | Lab Results | 12/02/ | | | | 2012 | | + +--------+ + Encounter Details +--------+ + + + + | Date | Type | Department | Care Team | Description | +--------+ + + + + | 12/02/ | Telephone | Dig[facility] | Violetta Byers, | Lab Results | | 2012 | | Center at [facility] [address] | 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 Shannen will send IGA H.pylori and they are treating his D def.Electronicjuma y signed by Savanna Ho at 12/02/2012 4:13 PM PSTdocumented in this encounter Plan of Treatment Not on filedocumented as of this encounter Visit Diagnoses Not on filedocumented in this encounter"
--- OUTSIDE RECORDS SUMMARY | ~2020-08-05 | XMS | Encounter Summary ---
Demographics + + + | Address | [address] | | | [place] [address] | + + + | Home Phone | | + + + | Preferred Language | Unknown | + + + | Marital Status | | + + + | Mu-Ism Affiliation | CHR | + + + | Race | White | + + + | Ethnic Group | Not or | + + + Author + + + | Author | [facility] | + + + | Organization | [facility] | + + + | Address | Unknown | + + + | Phone | Unavailable | + + + Support + + + + + | Name | Relationship | Address | Phone | + + + + + | Tico Burns | ECON | [address] | | | | | [place], [place] | | | | | [address] | | + + + + + Care Team Providers + +------+ + | Care Rural Carrier Associate Name | Role | Phone | + +------+ + | Moe Bella MD | PCP | | + +------+ + Reason for Visit + + + | Reason | Comments | + + + | Return Patient | | + + + Office Visit - E/M Services (Routine) +--------+--------+ + + + + | Status | Reason | Specialty | Diagnoses / | Referred By | Referred To | | | | | Procedures | Contact | Contact | +--------+--------+ + + + + | Closed | | Surgery | Diagnoses | Shayne, | Bar | | | | | Morbid | Moe B, | Bariatri Surg | | | | | obesity | MD [address] | | | | | (HCC) Type | [address] | | | | | II or | [address] | Center for | | | | | unspecified | [place], | Health and | | | | | type | [place] [address] | Healing, | | | | | diabetes | Phone: | Building [address] | | | | | mellitus | [phone] | [place], [place] | | | | | without | Fax: | [address] | | | | | mention of | [phone] | Phone: | | | | | complication | | [phone] | | | | | , not stated | | Fax: | | | | | as | | [phone] | | | | | uncontrolled | | | +--------+--------+ + + + + Encounter Details +--------+---------+ + + + | Date | Type | Department | Care Team | Description | +--------+---------+ + + + | 01/05/ | Office | Dig[facility]ive [facility] | Kristan Miranda, | S/P laparoscopic | | 2015 | Visit | Center at [facility] [address] | ACNP [address] | sleeve gastrectomy | | | | [address] | [address] [facility] [place] | (Primary Dx) | | | | for Health and | [address] | | | | | Healing, [facility] 2 | [phone] | | | | | [place], [place] | | | | | | [address] | | | | | | [phone] | | | +--------+---------+ + + + [...] + + + | Blood Pressure | 153/97 | 01/05/2015 11:53 AM | | | | | PST | | + + + + + | Pulse | 105 | 01/05/2015 11:53 AM | | | | | PST | | + + + + + | Temperature | 36.9 C (98.4 F) | 01/05/2015 11:53 AM | | | | | PST | | + + + + + | Respiratory Rate | 16 | 01/05/2015 11:53 AM | | | | | PST | | + + + + + | Oxygen Saturation | - | - | | + + + + + | Inhaled Oxygen | - | - | | | Concentration | | | | + + + + + | Weight | 208.6 kg (459 lb | 01/05/2015 11:53 AM | | | | 14.4 oz) | PST | | + + + + + | Height | 172.7 cm (5' 8") | 01/05/2015 11:53 AM | | | | | PST | | + + + + + | Body Mass Index | 69.93 | 01/05/2015 11:53 AM | | | | | PST | | + + + + + documented in this encounter Patient Instructions Patient Instructions Kristan Goldsmith ACNP - 01/05/2015 11:49 AM PST2. Labs today: CBC, CMP, B12, Folate, PTH, vit D, ferritin will notify of results Dehydration: Because of the surgery, you cannot gulp water when you are getting dry. Know that you are a lways a little dehydrated. The first sign is nausea. So if you feel nausea, think DRINK. This is especially important in higher temperatures. If you are nauseated then drink small amounts often (for example a shot glass of Water every 15 minutes) If you wanted phentermine and topamax together... For hunger... documented in this encounter Progress Notes Kristan Goldsmith ACNP - 01/05/2015 11:43 AM PSTFormatting of this note might be different fro m the original. BARIATRIC FOLLOW-UP Gerard Burns is a 49 y.o. patient who underwent a sleeve gastrectomy (open) 01/15. He is here for a 2 year post op check. Surgery by Dr. Perez. He is s/p a fatty tumor removal from lower abdomen that weight 28 puonds 04/17. .lives in [facility]. Goal is 400 for this year He has a very large pannus, which requires ongoing daily treatment to prevent skin fold ero sions/ candidiasis . Last office visit reviewed. Op-report reviewed. Labs reviewed. Weight 567--> 459 He started at a higher weight, overall has lost more than 100 pounds ALLERGIES: Allergies Allergen Reactions Codeine Rash Rash all over arms Current outpatient prescriptions:Aspirin 81 mg Oral Tablet, Take 81 mg by mouth once daily. , Disp: , Rfl: Calcium Citrate-Vitamin D3 (CITRACAL + D PETITES) 200 mg calcium -250 unit Oral tablet, Konrad e 2 Tabs by mouth two times daily. Start 2 weeks after surgery. Indications: Hypocalcemia P revention, Disp: 100 Tab, Rfl: 12 cloNIDine 0.1 mg Oral Tablet, Take 0.1 mg by mouth two times daily. , Disp: , Rfl: cyanocobalamin 1,000 mcg/mL Injection Solution, Inject 1,000 mcg into the muscle (IM) every thirty days. Indications: Prevention of Vitamin B12 Deficiency, Disp: , Rfl: docusate sodium (COLACE) 100 mg Oral capsule, Take 1 Cap by mouth two times daily., Disp: 3 0 Cap, Rfl: 1 famotidine 20 mg Oral tablet, Take 1 Tab by mouth two times daily. Indications: Prevention of Stress Ulcer, Disp: 60 Tab, Rfl: 2 FLUoxetine (PROZAC) 20 mg Oral Capsule, Take 20 mg by mouth two times daily., Disp: , Rfl: insulin glargine 100 unit/mL Subcutaneous Solution, Inject 35 Units under the skin (SUBC) o nce daily at bedtime. Recommend the 35 units, check CBG. May increase up to 50 if CBG incre ased per PCP Indications: TYPE 2 DIABETES MELLITUS, Disp: 10 mL, Rfl: 2 insulin lispro 100 unit/mL Subcutaneous Solution, Inject 12 Units under the skin (SUBC) thr ee times daily with meals. Indications: TYPE 2 DIABETES MELLITUS, Disp: 10 mL, Rfl: 2 insulin lispro 100 unit/mL Subcutaneous Solution, Use 2 units for 141-200, 4 units for 201- 250, 6 units for 251-300, nj your doctor if > Indications: TYPE 2 DIABETES MELLITUS, Disp: 10 mL, Rfl: 1 levothyroxine (SYNTHROID) 175 mcg Oral Tablet, Take 175 mcg by mouth once daily. , Disp: , Rfl: LOSARTAN/HYDROCHLOROTHIAZIDE (HYZAAR ORAL), Take by mouth., Disp: , Rfl: metFORMIN SR 500 mg Oral tablet extended release 24 hr, Take 4 Tabs by mouth once daily. Ad softball winder with evening meal. Indications: TYPE 2 DIABETES MELLITUS, Disp: 100 Tab, Rfl: 1 metoprolol tartrate 100 mg Oral Tablet, Take 100 mg by mouth two times daily. , Disp: , Rf l: multivitamin Oral capsule, Take 1 Cap by mouth once daily. Indications: VITAMIN DEFICIENCY, Disp: 30 Cap, Rfl: 2 oxyCODONE, immediate release, 5 mg Oral tablet, Take 1-3 Tabs by mouth every three hours as needed for severe pain. Indications: Pain, Disp: 40 Tab, Rfl: 0 pediatric multivitamin chewable (CHILDRENS CHEWABLE VITAMINS) Oral tablet, chewable, Take 1 Tab by mouth two times daily., Disp: 100 Tab, Rfl: 12 phentermine 37.5 mg Oral tablet, Take 1 Tab by mouth once daily in the morning. Administer before breakfast., Disp: 30 Tab, Rfl: 0 polyethylene glycol 17 gram/dose Oral Powder, Take 17 g by mouth once daily as needed (No B M in past 3 days). Indications: CONSTIPATION, Disp: 527 g, Rfl: 1 ursodiol 300 mg Oral capsule, Take 1 Cap by mouth two times daily. Start Actigall 2 weeks a fter surgery. Indications: Cholelithiasis Prevention, Disp: 60 Cap, Rfl: 5 VITAMIN A/VITAMIN D2 (VITAMIN A & ERGOCALCIFEROL,D2, ORAL), Take by mouth. 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 Social History Main Topics Smoking status: Never Smoker Smokeless tobacco: Never Used Alcohol Use: 0.0 oz/week 0 drink(s) per week Comment: very rare Drug Use: No Sexual Activity: Not on file Other Topics Concern Not on file Social History Narrative to Shilpi Family History Problem Relation Arthritis Father Bariatric Medications: MVI with iron twice daily: yes Calcium citrate 1500mg daily: yes Vitamin D 1000 mg daily : yes B12 500mcg SL daily or monthly shot: yes H2RB/PPI daily: no Symptoms: Nausea: None Dysphagia: None Vomiting: None Heartburn: None Abd Pain: None Constipation: None Diarrhea: None Exam General- Alert and oriented x4, WD, WN, NAD, Obese, well appearing Well hydrated: moist mucous membranes Lungs: regular and even excursion, no audible wheezes Card/Circ: no LE edema Abd - Soft, NT, NR, NG, very large pannus, that when he sits Becomes a shelf for his arms. The pannus extends to mid thigh. He has intermittent issues with skin fold rashes. Abd Wounds - healed midline incision. No evidence of hernia. Assessment/Plan: 1. S/P sleeve gastrectomy, Doing well at 2 years He would like to have the pannus removed, but it would be self pay and he can't afford it. His energy level has dropped the past few weeks, has felt well. Plan: check labs below for deficiency 2. Labs today: CBC, CMP, B12, Folate, PTH, vit D, ferritin will notify of results, and will copy his pcp 3. Weight loss: his goal is a another 50 pounds. I provided him with another copy of our cleina ok For food suggestions. He has been on phentermine in the past, without much improvement in a ppetite. I let him know there is now a combination medication with Topamax. I don't know if the comb ination would Be more likely to provide appetite suppression for him. 5Continue with supps as directed, watch protein levels, be sure to get 60 gms daily, be neeta e to take in 64 oz of water daily. 6 Discussed specific supplements Discussed diet choices, healthy foods, ways to increase protein and iron,Discussed exercise , types of exercise 2. s/p gastric surgery, potential for B12 deficiency, Calcium malabsorption, protein malab sorption and iron deficiencies. 3. B12 nutritional deficiency- pt has limited portion sizes, area of stomach where b12 abso rbed is now partially removed or bypassed. 4. Vitamin D deficiency, pt has history of deficiency, taking supplements, will need to be monitored regularly. Potential for elevated PTH if Vit D and calcium absorption are not opti mized. See PCM for adjusting any other medications. Call if any abd pain, n/v/d or other issues. ER for severe pain. Encouraged pt to F/u at every year post op. Pt agrees to POC and will call or send [employer] message if any issues. Start time 1150, end time 1220. I spent a total of 30 minutes face to face with this silvino ent. Over 50% of visit was in counseling. Kristan Goldsmith DNP, ACNP, SALES ENGINEER ACCOUNT MANAGER Nurse Practitioner for Bariatric Surgery [facility] | [facility] | [place], [place] | [address] | documented in this en counter Plan of Treatment Not on filedocumented as of this encounter Visit Diagnoses + + | Diagnosis | + + | S/P laparoscopic sleeve gastrectomy - Primary | + + documented in this encounter
--- OUTSIDE RECORDS SUMMARY | ~2020-08-05 | XMS | Encounter Summary ---
Demographics + + + | Address | [address] | | | [place] [address] | + + + | Home Phone | | + + + | Preferred Language | Unknown | + + + | Marital Status | | + + + | Muslim Affiliation | 1013 | + + + | Race | White | + + + | Ethnic Group | Not or | + + + Author + + + | Author | [facility] | | | and [place] | + + + | Organization | [facility] | | | [...] [place] | | | | | [address] | | + + + + + Care Team Providers + +------+ + | Care Blowing Weasand Name | Role | Phone | + +------+ + | Moe Bella MD | PCP | | + +------+ + Encounter Details +--------+ + + + + | Date | Type | Department | Care Team | Description | +--------+ + + + + | 08/22/ | Hospital | [facility] | Chauncey Lee MD | Pseudoarthrosis of | | 2017 | Encounter | MED CTR XRAY [address] | cervical spine, | | | | [place] | [place] [address] | initial encounter | | | | [place] [address] | [phone] | ([facility]); S/P cervical | | | | [phone] | | spinal fusion | +--------+ + + + + Social [...] + + +---------+ + + | aspirin 81 MG | Take 81 mg by mouth | | 0 | | | | tablet | Daily. | | | | | + + [...] +---------+ + + | cloNIDine | Take by mouth. | | 0 | | | | (CATAPRES) 0.1 mg | | | | | | | tablet | | | | | | + + + +---------+ + + | Cyanocobalamin | Take 1,000 Units by | | 0 | | | | (VITAMIN B12) 1000 | mouth Once a week. | | | | | | MCG TBCR | | | | | | + + + +---------+ + + | cyclobenzaprine | Take 1 tablet by | 90 | 3 | 06/02/20 | | | (FLEXERIL) 10 mg | mouth every 8 hours | tablet | | 16 | | | tablet | as needed for Muscle | | | | | | | spasms. | | | | | + + + +---------+ + + | ergocalciferol | Take 50,000 Units by | | 0 | 07/19/20 | | | (ERGOCALCIFEROL) | mouth Once a week. | | | 12 | | | 25057 UNITS capsule | | | | | | + + + +---------+ + + | FLUoxetine | Take 20 mg by mouth | | 0 | 07/19/20 | | | (PROZAC) 20 mg | Daily. | | | 12 | | | capsule | | | | | | + + + +---------+ + + | gabapentin | Take 900 mg by mouth | | 0 | 12/16/19 | | | (NEURONTIN) 300 mg | 2 times daily. | | | 17 | | | capsule | | | [...] + + + +---------+ + + | liraglutide | Inject 1.8 mg under | | 0 | 07/05/20 | | | (VICTOZA) 18 mg/3 mL | the skin Daily as | | | 17 | | | injection | needed. | | | | | + + [...] +---------+ + + | metFORMIN | Take 1,000 mg by | | 0 | | | | (GLUMETZA) 1000 MG | mouth daily (with | | | | 0 | | 24 hr tablet | breakfast). | | | | | + + [...] + + + +---------+ + + | VICTOZA 18 MG/3ML | | | 0 | 07/05/20 | | | injection | | | | 17 | 0 | + + + +---------+ + + documented as of this encounter Plan of Treatment Not on filedocumented as of this encounter Procedures + +--------+ + + + | Procedure Name | Priori | Date/Time | Associated Diagnosis | Comments | | | ty | | | | + +--------+ + + + | XR CERVICAL SPINE 2 | Routin | 08/22/2017 | Pseudoarthrosis of | Results for this | | OR 3 VIEWS | e | 11:33 AM | cervical spine, | procedure are in the | | | | PDT | initial encounter | results section. | | | | | ([facility]) S/P cervical | | | | | | spinal fusion | | + +--------+ + + + documented in this encounter Results XR Cervical Spine 2 or 3 Views (08/22/2017 11:33 AM PDT) + + | Specimen | + + | | + + + + + | Narrative | Performed At | + + + | CLINICAL INFORMATION: Postop. COMPARISON: 03/16/2017 | [facility] | | FINDINGS: AP and lateral views of the cervical spine. Anterior | | | screw and plate fusion changes at C4-C7 with probable osseous fusion | | | C5-C6. No definite osseous fusion at the other vertebral bodies. | | | Stable appearance of the hardware with stable height loss at C4 | | | vertebral body. Stable cervical spine alignment. IMPRESSION | | | - Anterior cervical spine fusion changes at C4-C7 with possible | | | osseous fusion at C5-C6. Otherwise unchanged appearance from prior. | | | Dictated and Signed by: Ramon Álvarez MD Electronically | | | signed: 08/22/2017 1:42 PM | | + + + + + | Procedure Note | + + | [place], Rad Results In - 08/22/2017 1:45 PM PDT | | CLINICAL INFORMATION: Postop. | | | | COMPARISON: 03/16/2017 | | | | FINDINGS: | | AP and lateral views of the cervical spine. | | | | Anterior screw and plate fusion changes at C4-C7 with probable osseous fusion | | C5-C6. No definite osseous fusion at the other vertebral bodies. Stable | | appearance of the hardware with stable height loss at C4 vertebral body. | | | | Stable cervical spine alignment. | | | | | | IMPRESSION - Anterior cervical spine fusion changes at C4-C7 with possible | | osseous fusion at C5-C6. Otherwise unchanged appearance from prior. | | | | Dictated and Signed by: Ramon Álvarez MD | | Electronically signed: 08/22/2017 1:42 PM | + + + +---------+ + + | Performing | Address | City/State/Zipcode | Phone Number | | Organization | | | | + +---------+ + + | [facility] | | | | + +---------+ + + documented in this encounter Visit Diagnoses + + | Diagnosis | + + | Pseudoarthrosis of cervical spine, initial encounter (HCC) | + + | S/P cervical spinal fusion Arthrodesis status | + + documented in this encounter"
--- OUTSIDE RECORDS SUMMARY | ~2020-08-05 | XMS | Encounter Summary ---
Demographics + + + | Address | [address] | | | [place] [address] | + + + | Home Phone [...] + | Tico Burns | ECON | [address] | | | | | [place], [place] | | | | | [address] | | + + + + + Care Team Providers + +------+ + | Care Layout Man Name | Role | Phone | + +------+ + | Moe Bella MD | PCP | | + +------+ + Reason for Visit + +--------+ + | Reason | Onset | Comments | | | Date | | + +--------+ + | Scheduling | 10/17/ | discuss surgical options | | | 2011 | | + +--------+ + Encounter Details +--------+ + + + + | Date | Type | Department | Care Team | Description | +--------+ + + + + | 10/17/ | Telephone | Dig[facility]ive [facility] | Violetta Byers, | Scheduling (discuss | | 2011 | | Center at [facility] [address] | 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 He has lost 30lbs 555-30 = 525 lbs. He is continuing to work with endoc rinology and his pcp to move forward. He is aware this is his window of opportunity. I spoke with Shannen at his pcp office and they will get the remaining items needed prior t o surgery as [facility] is not covered by his insurance. Dr Perez wants to discuss surgical canididacy. Call routed to drill press set up operator radial documented in this enco unter Plan of Treatment Not on filedocumented as of this encounter Visit Diagnoses Not on filedocumented in this encounter"
--- OUTSIDE RECORDS SUMMARY | ~2020-08-05 | XMS | Encounter Summary ---
Demographics + + + | Address | [address] | | | [place] [address] | + + + | Home Phone | | + + + | Preferred Language | Unknown | + + + | Marital Status | | + + + | Religion Affiliation | CHR | + + + | Race | White | + + + | Ethnic Group | Not or | + + + Author + + + | Author | [facility] | + + + | Organization | [facility] | + + + | Address | Unknown | + + + | Phone | Unavailable | + + + Support + + + + + | Name | Relationship | Address | Phone | + + + + + | Tico Burns | ECON | [address] | | | | | [place], [place] | | | | | [address] | | + + + + + Care Team Providers + +------+ + | Care Assembly Hand Name | Role | Phone | + +------+ + | Moe Bella MD | PCP | | + +------+ + Encounter Details +--------+--------+ + + + | Date | Type | Department | Care Team | Description | +--------+--------+ + + + | 08/05/ | Intake | Transfer Center | | | | 2020 | | [address] | | | | | | [place], | | | | | | [place] [address] | | | +--------+--------+ + + + [...]
--- OUTSIDE RECORDS SUMMARY | ~2020-08-05 | XMS | Encounter Summary ---
Demographics + + + | Address | [address] | | | [place] [address] | + + + | Home Phone | | + + + | Preferred Language | Unknown | + + + | Marital Status | | + + + | Scientologist Affiliation | 1013 | + + + | Race | White | + + + | Ethnic Group | Not or | + + + Author + + + | Author | [facility] | | | and [place] | + + + | Organization | [facility] | | | [...] [place] | | | | | [address] | | + + + + + Care Team Providers + +------+ + | Care Stores Clerk Name | Role | Phone | + +------+ + | Oscar Wright MD | PCP | | + +------+ + Encounter Details +--------+ + + + + | Date | Type | Department | Care Team | Description | +--------+ + + + + | 03/13/ | Orders Only | [facility] [place] | Chauncey Lee MD | S/P cervical spinal | | 2016 | | NEUROSURGERY [address] | [address] | fusion (Primary Dx) | | | | [address] | [place] [address] | | | | | [place] | [phone] | | | | | [address] | | | | | | [phone] | | | +--------+ + + + [...] + | [address] | [address] | [address] | [phone] | | [facility] | | [address] | | | - IMAGING | | | | + + + + + documented in this encounter Visit Diagnoses + + | Diagnosis | + + | S/P cervical spinal fusion - Primary Arthrodesis status | + + documented in this encounter"
--- OUTSIDE RECORDS SUMMARY | ~2020-08-05 | XMS | Encounter Summary ---
Demographics + + + | Address | [address] | | | [place] [address] | + + + | Home Phone | | + + + | Preferred Language | Unknown | + + + | Marital Status | | + + + | Zoroastrianism Affiliation | 1013 | + + + | Race | White | + + + | Ethnic Group | Not or | + + + Author + + + | Author | [facility] | | | and [place] | + + + | Organization | [facility] | | [...] [place] | | | | | [address] | | + + + + + Care Team Providers + +------+ + | Care Risk Management Internship Name | Role | Phone | + +------+ + | Moe Bella MD | PCP | | + +------+ + Reason for Visit +--------+--------+ + | Reason | Onset | Comments | | | Date | | +--------+--------+ + | Other | 03/09/ | | | | 2015 | | +--------+--------+ + Encounter Details +--------+ + + + + | Date | Type | Department | Care Team | Description | +--------+ + + + + | 05// | Telephone | [facility] [place] | Franky Kumar, | Other | | 2015 | | NEUROSURGERY [address] | DO [address] | | | | | [address] | [address] [place], [place] | | | | | [place], [place] | [address] | | | | | [address] | | | | | | [phone] | | | +--------+ + + + [...] this encounter Miscellaneous Notes Telephone Encounter - Marilyn Brothers RN - 03/09/2016 2:08 PM PDTDr. Kumar, Spoke with Azeb from Dr. Wright' office. He is requesting that Dr. Kumar call him about his patient Gerard Burns. He has not been seen by our providers. There is a cervical MRI on I -Site. Please Advise C: [phone] documented in this e ncounter Plan of Treatment Not on filedocumented as of this encounter Visit Diagnoses Not on filedocumented in this encounter"
--- OUTSIDE RECORDS SUMMARY | ~2020-08-05 | XMS | Encounter Summary ---
Demographics + + + | Address | [address] | | | [place] [address] | + + + | Home Phone | | + + + | Preferred Language | Unknown | + + + | Marital Status | | + + + | Protestant Affiliation | 1013 | + + + | Race | White | + + + | Ethnic Group | Not or | + + + Author + + + | Author | [facility] | | | and [place] | + + + | Organization | [facility] | | [...] [place] | | | | | [address] | | + + + + + Care Team Providers + +------+ + | Care Pulp Bleacher Name | Role | Phone | + +------+ + | Moe Bella MD | PCP | | + +------+ + Encounter Details +--------+ + + + + | Date | Type | Department | Care Team | Description | +--------+ + + + + | 02/24/ | Orders Only | [facility] [place] | Vannessa Taylor | | | 2019 | | PHYSIATRY [address] | BUTCH [address] | | | | | [address] | [facility] | | | | | [place], [place] | [address] | | | | | [address] | [address] | | | | | [phone] | | | +--------+ + + + [...]
--- OUTSIDE RECORDS SUMMARY | ~2020-08-05 | XMS | Encounter Summary ---
Demographics + + + | Address | [address] | | | [place] [address] | + + + | Home Phone [...] + + + | Author | [facility] | + + + | Organization | [facility] | + + + | Address | Unknown | + + + | Phone | Unavailable | + + + Support + + + + + | Name | Relationship | Address | Phone | + + + + + | Tico Burns | ECON | [address] | | | | | [place], [place] | | | | | [address] | | + + + + + Care Team Providers + +------+ + | Care Road Service Locksmith Name | Role | Phone | + +------+ + | Moe Bella MD | PCP | | + +------+ + Reason for Visit + +--------+ + | Reason | Onset | Comments | | | Date | | + +--------+ + | Follow-up encounter | 01/16/ | check in post discharge | | | 2012 | | + +--------+ + Encounter Details +--------+ + + + + | Date | Type | Department | Care Team | Description | +--------+ + + + + | 01/16/ | Telephone | [facility] | Violetta Byers, | Follow-up encounter | | 2012 | | Center at [facility] [address] | PERSONAL INJURY LITIGATION [address] | (check in post | | | | [address] [facility] | [facility] [address] | discharge) | | | | for Health and | [place], [place] | | | | | [place] [address] | [address] | | | | | [place], [place] | [phone] | | | | | [address] | | | | | | [phone] | | | +--------+ + + + [...] this encounter Miscellaneous Notes Telephone Encounter - GeorgiaCatSavanna - 01/16/2013 1:55 PM PDTFormatting of this note trisha thomas be different from the original. Procedure Open sleeve gastrectomy Phone call to patient post hospital discharge Are you passing gas yes Are you staying hydrated yes Are you having any pain no What is your pain level 1 Are you having any vomiting no Are you tolerating a liquid diet yes Do you have any questions or concerns Had fever yesterday of 101 but now normal. He will ke ep an eye on it and call if comes back or develops any symptoms Are you taking your PPI ( Zantac) yes Are you taking Ursodial no, will start in two weeks Incision sites:Look good. Call to PCP: letter to follow with bariatric supplements, labs, and symptoms to watch for. documented in this encou nter Plan of Treatment Not on filedocumented as of this encounter Visit Diagnoses Not on filedocumented in this encounter"
--- OUTSIDE RECORDS SUMMARY | ~2020-08-05 | XMS | Encounter Summary ---
Demographics + + + | Address | [address] | | | [place] [address] | + + + | Home Phone | | + + + | Preferred Language | Unknown | + + + | Marital Status | | + + + | Shinto Affiliation | 1013 | + + + | Race | White | + + + | Ethnic Group | Not or | + + + Author + + + | Author | [facility] | | | and [place] | + + + | Organization | [facility] | | [...] [place] | | | | | [address] | | + + + + + Care Team Providers + +------+ + | Care Manager Pe Name | Role | Phone | + [...] | SR | | | | | [address]SE [address] | | | | | | [place] | | | | | | [address] | | | | | | [phone] | | | +--------+ + + + [...]
--- OUTSIDE RECORDS SUMMARY | ~2020-08-05 | XMS | Encounter Summary ---
Demographics + + + | Address | [address] | | | [place] [address] | + + + | Home Phone | | + + + | Preferred Language | Unknown | + + + | Marital Status | | + + + | Islam Affiliation | CHR | + + + | Race | White | + + + | Ethnic Group | Not or | + + + Author + + + | Author | [facility] | + + + | Organization | [facility] | + + + | Address | Unknown | + + + | Phone | Unavailable | + + + Support + + + + + | Name | Relationship | Address | Phone | + + + + + | Tico Burns | ECON | [address] | | | | | [place], [place] | | | | | [address] | | + + + + + Care Team Providers + +------+ + | Care Rake Operator Name | Role | Phone | + +------+ + | Moe Bella MD | PCP | | + +------+ + Encounter Details +--------+ + + + + | Date | Type | Department | Care Team | Description | +--------+ + + + + | 02/14/ | Abstract | [facility] | Clinic, Surgery | | | 2016 | | [place] [address] [address] | | | | | | [facility] | | | | | | for Health and | | | | | | Healing, [address] | | | | | | [place], [place] | | | | | | [address] | | | | | | [phone] | | | +--------+ + + + [...]
--- OUTSIDE RECORDS SUMMARY | ~2020-08-05 | XMS | Encounter Summary ---
Demographics + + + | Address | [address] [facility] | | | [place] [address] | + + + | Home Phone | | + + + | Preferred Language | Unknown | + + + | Marital Status | | + + + | Zoroastrian Affiliation | CHR | + + + [...] + | Tico Burns | ECON | [address] | | | | | [place], [place] | | | | | [address] | | + + + + + Care Team Providers + +------+ + | Care Social And Political Studies Professor Name | Role | Phone | + +------+ + | Moe Bella MD | PCP | | + +------+ + Encounter Details +--------+ + + + + | Date | Type | Department | Care Team | Description | +--------+ + + + + | 07/31/ | Telephone | Dig[facility] | Jesus Perez, | | | 2012 | | [place] [address] | [address] | | | | | [place] Mailcode: CH4S | [facility] | | | | | [facility] | [place], [place] | | | | | and Healing, | [address] | | | | | [address] | [phone] | | | | | Floor [place], [place] | | | | | | [address] | | | | | | [phone] | | | +--------+ + + + [...] Notes Telephone Encounter - Savanna Ho - 07/31/2013 11:07 AM PDTLowest dose they have and referred back to PCP. el ephone Encounter - Yolis Whitt - 07/31/2013 10:36 AM PDTTony from [facility] h ad a question about Phentermine 8 mg. They don't have 8 mg in the Phentermine. Please call to advise Pharmacy: Pharmacy Preferences: [phone] [place] [phone] documented in this en counter Plan of Treatment Not on filedocumented as of this encounter Visit Diagnoses Not on filedocumented in this encounter"
--- OUTSIDE RECORDS SUMMARY | ~2020-08-05 | XMS | Encounter Summary ---
Demographics + + + | Address | [address] [facility] [facility] | | | [place] [address] | + + + | Home Phone | | + + + | Preferred Language | Unknown | + + + | Marital Status | | + + + | Jewish Affiliation | CHR | + + + [...] + | Tico Burns | ECON | [address] | | | | | [place], [place] | | | | | [address] | | + + + + + Care Team Providers + +------+ + | Care Bindery Library Technical Assistant Name | Role | Phone | + [...] | | 2017 | | Center at [facility] [address] | | Review | | | | [address] [place] | | | | | | for Health and | | | | | | Healing, [address] | | | | | | [place], [place] | | | | | | [address] | | | | | | [phone] | | | +--------+ + + + [...]
--- OUTSIDE RECORDS SUMMARY | ~2020-08-05 | XMS | Encounter Summary ---
Demographics + + + | Address | [address] | | | [place] [address] | + + + | Home Phone | | + + + | Preferred Language | Unknown | + + + | Marital Status | | + + + | Mandaeism Affiliation | CHR | + + + | Race | White | + + + | Ethnic Group | Not or | + + + Author + + + | Author | [facility] | + + + | Organization | [facility] | + + + | Address | Unknown | + + + | Phone | Unavailable | + + + Support + + + + + | Name | Relationship | Address | Phone | + + + + + | Tico Burns | ECON | [address] | | | | | [place], [place] | | | | | [address] | | + + + + + Care Team Providers + +------+ + | Care Events Solutions Consultant Name | Role | Phone | + +------+ + | Moe Bella MD | PCP | | + +------+ + Reason for Visit + + + | Reason | Comments | + + + | Bariatric Nutrition | | + + + Consultation (Routine) +--------+--------+ + + + + | Status | Reason | Specialty | Diagnoses / | Referred By | Referred To | | | | | Procedures | Contact | Contact | +--------+--------+ + + + + | Closed | | Nutrition | Diagnoses | Malone, | Fn | | | | | Bariatric | Mckenna R, | [facility] | | | | | surgery | MD [address] | [address] | | | | | status | [address] | [address] | | | | | Procedures | [address] | Center for | | | | | CONSULT TO | [place], [place] | [facility] and | | | | | BARIATRIC | [address] | Healing, | | | | | SURGERY | Phone: | [address] | | | | | | [phone] | [place], [place] | | | | | | Fax: | [address] | | | | | | [phone] | Phone: | | | | | | | [phone] | | | | | | | Fax: | | | | | | | [phone] | +--------+--------+ + + + + Encounter Details +--------+---------+ + + + | Date | Type | Department | Care Team | Description | +--------+---------+ + + + | 01/30/ | Office | Dig[facility]ive Health | Joaquina Tom, | Morbid obesity with | | 2017 | Visit | Center at [facility] [address] | [address] [facility] | BMI of 60.0-69.9, | | | | [address] [facility] | [address] | adult (HCC) (Primary | | | | for Health and | [place], [place] | Dx) | | | | [facility] | [address] | | | | | [place], [place] | [phone] | | | | | [address] | | | | | | [phone] | | | +--------+---------+ + + + [...] + + + + | Weight | 197.5 kg (435 lb 6.4 | 01/30/2017 12:18 PM | | | | oz) | PDT | | + + + + + | Height | 172.7 cm (5' 8") | 01/30/2017 12:18 PM | | | | | PDT | | + + + + + | Body Mass Index | 66.2 | 01/30/2017 12:18 PM | | | | | PDT | | + + + + + documented in this encounter Progress Notes Joaquina Tom, RD - 01/30/2017 12:30 PM PDTFormatting of this note might be different fro m the original. Nutrition Counseling: Post-op Bariatric Surgery Follow-Up Patient referred by: Moe Bella MD [facility] [address] [facility] [place] [place] [address] Documented time of visit: 12:16 pm to 12:53pm (37 minutes ampm-ks-rter with patient) Surgery: Sleeve Gastrectomy Date of Surgery: 01/08/13 Subjective: Tolerating Bariatric Diet: Yes - States he basically cut out carbs but upon recall below, ronal ppears to have just reduced and sometimes eats a lot of sweetened beverages. Denies any dump ing symptoms. Does feel full - fills up quickly but then is hungry 1-1.5 hrs later & goes ba ck to finish his plate or eat snacks around the house. 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 Off & on c arbonated beverages, much less than prior to surgery but does occur - drinks 1/week (usually diet pepsi); unless in a thirsty mode - then it's 7up or sprite (regular), juice. Iced tea or crystal light is go to drink. Drinks with a straw all the time. Drinks juice 2x/week, 1 q uart at time. Current Physical Activity: very little; walks a lot lately - 20 minutes at a time; got bett er orthotics from welding inspector - picks them up next week Hovering around 430-439 lbs for months. Changes in Diabetes Medications since surgery: no; on humalog 24 units TID; Lantus 90 units q evening. Testing blood glucose: no Objective: Ht Readings from Last 1 Encounters: 01/30/17 1.727 m (5' 8") Weight History: 01/30/17 197.5 kg (435 lb 6.4 oz) 01/12/17 199.1 kg (439 lb) 01/05/15 (!) 208.6 kg (459 lb 14.4 oz) 09/04/13 (!) 202.2 kg (445 lb 11.2 oz) 02/27/13 (!) 228.6 kg (503 lb 14.4 oz) 01/30/13 (!) 231.3 kg (510 lb) 01/08/13 (!) 240.5 kg (530 lb 3.3 oz) Body mass index is 66.2 kg/(m^2). Weight change since surgery: 95 lb weight loss PMHx: Past Medical History: Diagnosis Date Cancer (HCC) 2010 Depressed 2011 Diabetes mellitus (HCC) 2006 Diabetes mellitus type II High cholesterol HTN (hypertension) Intertriginous candidiasis Leg sore Numbness 2007 hands and feet Sleep apnea on CPAP Thyroid disease 2010 Food logs: No Fluid choices: water, crystal light, apple juice, V8 Splash, diet pepsi, 7up, sprite Supplementation: multivitamin-Men's spectrum 1/day, iron 1/day, no calcium, 1 50K vit D/wee k, no vit B12 Assessment: Following Bariatric Diet Protocol: No Meeting protein goals: Yes Meeting fluid goals: Yes Fluids from meals: Yes, but only by 15-20 minutes; drinks up to 2 quarts fluid a t one time Plan: Reviewed nutrition goals after bariatric surgery. Aim for 64 ounces of fluid and 60-80 grams of protein per day. Continue to follow post-surgery bariatric diet progression: Continue stage 4 according to b ariatric diet guidelines -Provided written & verbal education/review of stage 4 guidelines -Continue to eat protein foods first; stop eating as soon as you begin to feel full -Choose foods with < 14 g sugar & < 5 g fat per serving -Continue fluids from meals by 30 minutes before & after Continue vitamin & mineral supplementation per post-bariatric surgery guidelines -complete multivitamin & mineral (with iron) supplement, 2/day -500 mg calcium citrate with vitamin D TID (not within 2 hours of multivitamin or iron sup plement) -500 mcg/day sublingual B12 supplement (or monthly injections) Continued to reinforce importance of mindful eating. Continue to increase physical activity. Reiterated that surgery is a tool for diet; emphasized need to follow bariatric guidelines - avoiding carbonated beverages, calorie-containing beverages, drinking with a straw, etc. Follow up prn. Joaquina Tom RD, CNSC, LD Clinical Dietitian Specialist [facility] Office: Email: [email or web address] Pager: [phone] documented in this en counter Plan of Treatment Not on filedocumented as of this encounter Procedures + +--------+ + + + | Procedure Name | Priori | Date/Time | Associated Diagnosis | Comments | | | ty | | | | + +--------+ + + + | MO MNT RE-ASSESSMNT | Routin | 01/30/2017 | Morbid obesity | | | X15MIN | e | 1:01 PM | with BMI of | | | | | PDT | 60.0-69.9, adult | | | | | | (HCC) | | + +--------+ + + + documented in this encounter Visit Diagnoses + + | Diagnosis | + + | Morbid obesity with BMI of 60.0-69.9, adult (HCC) - Primary | + + documented in this encounter
--- OUTSIDE RECORDS SUMMARY | ~2020-08-05 | XMS | Encounter Summary ---
Demographics + + + | Address | [address] | | | [place] [address] | + + + | Home Phone | | + + + | Preferred Language | Unknown | + + + | Marital Status | | + + + | Sikh Affiliation | CHR | + + + [...] + | Tico Burns | ECON | [address] | | | | | [place], [place] | | | | | [address] | | + + + + + Care Team Providers + +------+ + | Care Peanut Separator Name | Role | Phone | + +------+ + | Moe Bella MD | PCP | | + +------+ + Encounter Details +--------+ + + + + | Date | Type | Department | Care Team | Description | +--------+ + + + + | 09/12/ | Abstract | Dig[facility]ive Health | Jesus Perez, | | | 2012 | | [place] [address] [address] | [address] [facility] | | | | | [facility] | [facility] | | | | | for Health and | [place], [place] | | | | | [facility], [place] [address] | [address] | | | | | [place], [place] | [phone] | | | | | [address] | | | | | | [phone] | | | +--------+ + + + [...]
--- OUTSIDE RECORDS SUMMARY | ~2020-08-05 | XMS | Encounter Summary ---
Demographics + + + | Address | [address] | | | [place] [address] | + + + | Home Phone | | + + + | Preferred Language | Unknown | + + + | Marital Status | | + + + | Taoism Affiliation | 1013 | + + + | Race | White | + + + | Ethnic Group | Not or | + + + Author + + + | Author | [facility] | | | and [place] | + + + | Organization | [facility] | | | and [...] [place] | | | | | [address] | | + + + + + Care Team Providers + +------+ + | Care Plant Operator Control Room Operator Name | Role | Phone | + +------+ + | Moe Bella MD | PCP | | + +------+ + Reason for Visit + +--------+ + | Reason | Onset | Comments | | | Date | | + +--------+ + | Pre-op Exam | 05/10/ | | | | 2015 | | + +--------+ + Encounter Details +--------+ + + + + | Date | Type | Department | Care Team | Description | +--------+ + + + + | 05/10/ | Telephone | [facility] [place] | Chauncey Lee MD | Pre-op Exam | | 2016 | | NEUROSURGERY [address] | [address] | | | | | [address] | [place] [address] | | | | | [place] [address] | [phone] | | | | | [address] | | | | | | [phone] | | | +--------+ + + + [...] Miscellaneous Notes Telephone Encounter - Judith Peres Renée - 05/10/2016 8:55 AM PDTPreop completed with Matthias houser. Stop 7 day prior: Aspirin Hold the morning of surgery: Humalog Losartan-Hydrochlorothiazide Take morning of surgery: Metroplol (Toprolol XL) 200 mg 24 hr tab Metroplol Tartrate 100 mg tab documented in this encounter Plan of Treatment Not on filedocumented as of this encounter Visit Diagnoses Not on filedocumented in this encounter"
--- OUTSIDE RECORDS SUMMARY | ~2020-08-05 | XMS | Encounter Summary ---
Demographics + + + | Address | [address] | | | [place] [address] | + + + | Home Phone | | + + + | Preferred Language | Unknown | + + + | Marital Status | | + + + | Roman Catholic Affiliation | CHR | + + + | Race | White | + + + | Ethnic Group | Not or | + + + Author + + + | Author | [facility] | + + + | Organization | [facility] | + + + | Address | Unknown | + + + | Phone | Unavailable | + + + Support + + + + + | Name | Relationship | Address | Phone | + + + + + | Tico Burns | ECON | [address] | | | | | [place], [place] | | | | | [address] | | + + + + + Care Team Providers + +------+ + | Care Roller Print Tender Name | Role | Phone | + [...] | | | | (HCC) Type | [facility] | [address] | | | | | II or | [address] | Center for | | | | | unspecified | [place], | Health and | | | | | type | [place] [address] | Healing, | | | | | diabetes | Phone: | Building [address] | | | | | mellitus | [phone] | [place], [place] | | | | | without | Fax: | [address] | | | | | mention of | [phone] | Phone: | | | | | complication | | [phone] | | | | | , not stated | | Fax: | | | | | as | | [phone] | | | | | uncontrolled | | | +--------+--------+ + + + + Encounter Details +--------+---------+ + + + | Date | Type | Department | Care Team | Description | +--------+---------+ + + + | 04/24/ | Office | Digestive Health | Harpreet Fenton, | Follow-up | | 2012 | Visit | Center at [facility] [address] | [address] [facility] | examination after | | | | [address] [facility] | [address] | abdominal surgery | | | | [facility] [employer] and | [place], [place] | (Primary Dx); Status | | | | [facility] | [address] | post bariatric | | | | [facility] [place] | [phone] | surgery | | | | [address] | | | | | | [phone] | | | +--------+---------+ + + + [...] Harpreet Fenton MD - 05/06/2013 2:08 PM MARKI performed a history and physical examinati on of the patient and discussed his management with the resident. I reviewed the resident s note and agree with the documented findings and plan of care. HARPREET FENTON MD [facility]ERY [address] Mailcode: [place] [id number] Rodriguez Wild MD - 04/24/2013 9:58 AM PDT04/24/2013 Gerard Burns presents 2 weeks status post fatty tumor [...]
--- OUTSIDE RECORDS SUMMARY | ~2020-08-05 | XMS | Encounter Summary ---
Demographics + + + | Address | [address] | | | [place] [address] | + + + | Home Phone | | + + + | Preferred Language | Unknown | + + + | Marital Status | | + + + | Jainism Affiliation | CHR | + + + | Race | White | + + + | Ethnic Group | Not or | + + + Author + + + | Author | [facility] | + + + | Organization | [facility] | + + + | Address | Unknown | + + + | Phone | Unavailable | + + + Support + + + + + | Name | Relationship | Address | Phone | + + + + + | Tico Burns | ECON | [address] | | | | | [place], [place] | | | | | [address] | | + + + + + Care Team Providers + +------+ + | Care Felt Finishing Supervisor Name | Role | Phone | + +------+ + | Moe Bella MD | PCP | | + +------+ + Reason for Visit + + + | Reason | Comments | + + + | Referral To Surgery | | | - General | | + + + Encounter Details +--------+ + + + + | Date | Type | Department | Care Team | Description | +--------+ + + + + | 10/23/ | Abstract | Digestive Health | ElijahisacJesus, | Referral To Surgery | | 2016 | | Center at [facility] [address] | MD [address] [facility] | [facility] | | | | [facility] | [facility] | | | | | [facility] and | [place], [place] | | | | | [facility], [facility] 2 | [address] | | | | | [place], [place] | [phone] | | | | | [address] | | | | | | [phone] | | | +--------+ + + + [...]
--- OUTSIDE RECORDS SUMMARY | ~2020-08-05 | XMS | Encounter Summary ---
Demographics + + + | Address | [address] | | | [place] [address] | + + + | Home Phone | | + + + | Preferred Language | Unknown | + + + | Marital Status | | + + + | Advent Affiliation | CHR | + + + [...] + | Tico Burns | ECON | [address] | | | | | [place], [place] | | | | | [address] | | + + + + + Care Team Providers + +------+ + | Care Contracts Paralegal Name | Role | Phone | [...] + + + + | 02/28/ | Formal Service Waiter | Digestive Health | Jesus Perez, | | | 2012 | | Center at [facility] [address] | [address] [facility] | | | | | [facility] | [facility] | | | | | [facility] and | [place], [place] | | | | | [place] [address] | [address] | | | | | [place], [place] | [phone] | | | | | [address] | | | | | | [phone] | | | +--------+ + + + [...]
--- OUTSIDE RECORDS SUMMARY | ~2020-08-05 | XMS | Encounter Summary ---
Demographics + + + | Address | [address] [facility] [facility] [address] [facility] | | | [place] [address] | + + + | Home Phone | | + + + | Preferred Language | Unknown | + + + | Marital Status | | + + + | Mosque Affiliation | CHR | + + + | Race | White | + + + | Ethnic Group | Not or | + + + Author + + + | Author | [facility] | + + + | Organization | [facility] | + + + | Address | Unknown | + + + | Phone | Unavailable | + + + Support + + + + + | Name | Relationship | Address | Phone | + + + + + | Tico Burns | ECON | [address] | | | | | [place], [place] | | | | | [address] | | + + + + + Care Team Providers + +------+ + | Care Byproducts Operator Name | Role | Phone | + +------+ + | Moe Bella MD | PCP | | + +------+ + Encounter Details +--------+ + + + + | Date | Type | Department | Care Team | Description | +--------+ + + + + | 04/05/ | Abstract | Digestive Health | Violetta Byers, | | | 2011 | | Center at [facility] [address] | PRINTING GREY CLOTH TENDER [address] | | | | | [address] [place] | [facility] [address] | | | | | for Health and | [place], [place] | | | | | [place] [address] | [address] | | | | | [place], [place] | [phone] | | | | | [address] | | | | | | [phone] | | | +--------+ + + + [...]
--- OUTSIDE RECORDS SUMMARY | ~2020-08-05 | XMS | Encounter Summary ---
Demographics + + + | Address | [address] [facility] | | | [place] [address] | + + + | Home Phone | | + + + | Preferred Language | Unknown | + + + | Marital Status | | + + + | Latter Day Affiliation | 1013 | + + + | Race | White | + + + | Ethnic Group | Not or | + + + Author + + + | Author | [facility] | | | and [place] | + + + | Organization | [facility] | | | [...] [place] | | | | | [address] | | + + + + + Care Team Providers + +------+ + | Care Steel Molder Name | Role | Phone | + +------+ + | Moe Bella MD | PCP | | + +------+ + Encounter Details +--------+ + + + + | Date | Type | Department | Care Team | Description | +--------+ + + + + | 05/10/ | Preadmit | [facility] | Chauncey Lee MD | Cervical spondylosis | | 2016 | Visit | [facility] | [address] | with radiculopathy; | | | | CLINIC [address] | [place] [address] | Morbid obesity, | | | | [place], [place] | [phone] | unspecified obesity | | | | [address] | | type (HCC); | | | [...] | | | | CHARI AUGUST MD ([id number]) | | | | | | on [...] | + +-------+ + + + | White Blood | 9.3 | 4.0 - 11.0 K/uL | [facility] | | | Cells | | | [facility] | | | | | | MEDICAL | | | | | | CENTER - | | | | | | LABORATORY | | + +-------+ + + + | Red Blood | 4.92 | 4.30 - 5.70 | [facility] | | | Cells | | M/uL | [facility] | [...] | | Lymphocytes | | | [facility] | | | | | | MEDICAL | | | | | | CENTER - | | | | | | LABORATORY | | + +-------+ + + + | % Monocytes | 5.5 | 4.0 - 12.0 % | [facility] | | | | | | [facility] | | | | | | MEDICAL [...] + | [facility] | [address] | [place] | [phone] | | [facility] | | [address] | | | - LABORATORY | | [...] + + + + + + | eGFR, | >60Comment: GLOMERULAR | >=60 | [facility] | | | non- | FILTRATION | mL/min/1.73m2 | [facility] | | | [place]anese | RATE,ESTIMATED | | MEDICAL | | | | mL/min/1.19d2Schy than | | CENTER - | | [...] + | [facility] | [address] | [place], [place] | [phone] | | [facility] | | [address] | | | - LABORATORY | | [...] | | chromogenic agar method | | [facility] | | | [...] [address] | [place] | [phone] | | [facility] | | [address] | | | - LABORATORY | | [...]
--- OUTSIDE RECORDS SUMMARY | ~2020-08-05 | XMS | Encounter Summary ---
Demographics + + + | Address | [address] [facility] | | | [place] [address] | + + + | Home Phone [...] + | Author | [facility] | | | and [place] | + + + | Organization | [facility] | [...] [place] | | | | | [address] | | + + + + + Care Team Providers + +------+ + | Care Senior Label Specialist Name | Role | Phone | + +------+ + | Moe Bella MD | PCP | | + +------+ + Encounter Details +--------+ + + + + | Date | Type | Department | Care Team | Description | +--------+ + + + + | 05/29/ | Orders Only | [facility] [place] | Jose Mirza | Cervical spondylosis | | 2016 | | NEUROSURGERY [address] | [address] | with radiculopathy | | | | [address] [place], [place] | (Primary Dx); S/P | | | | [place], [place] | [address] | cervical spinal | | | | [address] | | fusion | | | | [phone] | | | +--------+ + + + [...] + | Josh Quinteros Results In - 07/11/2016 2:28 PM PDT [...] + | [facility] | [address] | [place] | [phone] | | [facility] | | [address] | | | - IMAGING | | [...]
--- OUTSIDE RECORDS SUMMARY | ~2020-08-05 | XMS | Encounter Summary ---
Demographics + + + | Address | [address] [facility] | | | [place] [address] | + + + | Home Phone | | + + + | Preferred Language | Unknown | + + + | Marital Status | | + + + | Denominational Affiliation | 1013 | + + + | Race | White | + + + | Ethnic Group | Not or | + + + Author + + + | Author | [facility] | | | and [place] | + + + | Organization | [facility] | | [...] [place] | | | | | [address] | | + + + + + Care Team Providers + +------+ + | Care Rail Car Unloader Name | Role | Phone | + [...] | | displacement | [address] | [place] | | | | | , lumbar | [place], | [address] Phone: | | | | | region | [place] [address] | [phone] | | | | | | Phone: | Fax: | | | | | | [phone] | [phone] | | | | | | Fax: | | | | | | | [phone] | | + +--------+ + + + + Encounter Details +--------+---------+ + + + | Date | Type | Department | Care Team | Description | +--------+---------+ + + + | 02/15/ | Office | [facility] [place] | Vannessa Taylor | Lumbar radiculopathy | | 2020 | Visit | PHYSIATRY [address] | [address] | (Primary Dx); Bulge | | | | [address] | of lumbar disc | | | | [place], [place] | [address] [place] | without myelopathy; | | | | [address] | [address] | Morbid obesity with | | | | [phone] | | BMI of 60.0-69.9, | | | | | | adult ([facility]); | | | | | | Bilateral [...] from the original. 1. Please have your senior cyber intelligence analyst work with Dr. Daigle at [facility]'s inpatient re hab to help facilitate admission [...] disk, and irritate nerves. Date Last Reviewed: 04/05/201819997245-6036 [employer]. [address] [place] [address]. All righ ts reserved. This information is not intended as a substitute for professional medical care. Always follow your healthcare professional's instructions. documented in this encounter Progress Notes Vannessa Taylor PA-C - 02/16/2020 1:40 PM PDTFormatting of this note might be diffe rent from the original. Jorge Taylor PA-C [address] [facility], [address] [place] [address] PHONE: FAX: PHYSIATRY HISTORY AND PHYSICAL EXAMINATION [...] having a few physical therapy sessions at [facility]. The symptoms are daily and [...] NSAIDS. Patient has been approved for inpatient senior living and wa s referred to neurosurgery at [facility] she anticipates in May. . PAST [...] Nephrolithiasis Nerve root and plexus disorder Numbness 2006 Hands and Feet Obesity Papillary thyroid carcinoma [...] Fusion; Surgeon: Chauncey Lee MD ; Location: [facility] MAIN OR DENTAL SURGERY Root and crown placement GASTRIC BYPASS SURGERY 12/26/2006 Attempted that resulted in small bowel resection - Dr Armando Braden; [place] GASTRIC RESECTION SURGERY 2014 GROIN SURGERY 07/04/2017 Tumor Removal - [facility] [place] LIPOMA REMOVAL 04/10/2013 Dr Vang NECK SURGERY SLEEVE GASTROPLASTY 01/08/2013 Open, INSU Dr Perez THYROIDECTOMY 07/2011 CURRENT MEDICATIONS: Current [...] on 02/16/2020) 90 tablet 3 ergocalciferol (ERGOCALCIFEROL) 60601 UNITS capsule Take 50,000 Units by mouth Once a w [place]. (Patient not taking: Reported on 02/16/2020) FLUoxetine [...] has no apparent deficits with short or senior living memory. Cranial nerves 2-12 appear grossly intact. EXTREMITIES: No cyanosis, clubbing, or edema. Distal pulses are palpable. PHYSICAL EXAM: MENTAL STATUS: He is awake, alert, and oriented. He follows simple and complex commands. His speech is fluent, he comprehends speech well, and he repeats well. He has no apparent deficits with short or senior living memory. CRANIAL NERVES: II: Acuity is intact. [...] Intrinsics 5 5 Ulnar Intrinsics 5 5 Cell Attendant Strength 5 5 Hip Flexion 3 5 [...] possible surgical intervention. Patient was informed that mary ryan would most likely want his BMI to [...] inpatient rehab. I consulted Dr. Daigle at [facility] for inpatient rehab consultation. He asked that if the ethan maurice meets criteria having failed home health that a referral be placed to him. Patient ag barbi to help facilitate this by discussing this with his casualty insurance claim adjuster. I did feel that Gerard Burns would [...]
--- OUTSIDE RECORDS SUMMARY | ~2020-08-05 | XMS | Encounter Summary ---
Demographics + + + | Address | [address] [facility] | | | [place] [address] | + + + | Home Phone [...] + + + | Author | [facility] | + + + | Organization | [facility] | + + + | Address | Unknown | + + + | Phone | Unavailable | + + + Support + + + + + | Name | Relationship | Address | Phone | + + + + + | Tico Burns | ECON | [address] | | | | | [place], [place] | | | | | [address] | | + + + + + Care Team Providers + +------+ + | Care Chief Cruiser Name | Role | Phone | + [...] Visit | Center at [facility] [address] | PRIVATE BRANCH EXCHANGE INSTALLER [address] | gastrectomy (Primary | | | | [address] | [address] | Dx); [place], | | | | for Health and | [place], [place] | abdominal; Fatty | | | | Healing, [address] | [address] | tumor | | | | [place], [place] | [phone] | | | | | [address] | | | | | | [phone] | | | +--------+---------+ + + + [...] N/A Years of Education: N/A 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 2. Pannus, large fatty tumor surrounding penis, this has been assessed by Dr. Perez in [facility]. He comes in with Dr. Barr to evaluate and plan for surgical removal. Surgery date of 04 April given, message sent to [facility] schedulers to work on auth and contact pt. See PCM for adjusting any other medications. Call if any abd pain, n/v/d or other issues. ER for severe pain. Encouraged pt to F/u at 3 months post op. Pt agrees to POC and will call or send [employer] message if any issues. Start time 1500, end time 1520. I spent a total of 20 minutes face to face with this patie nt. Over 50% of visit was in counseling. ~ 2 Minutes of additional time spent reviewing chart prior to visit and documenting after t his visit. Violetta Byers RN, LABORATORY OPERATIONS COORDINATOR- Nurse Practitioner for Bariatric Surgery [facility] | [address] | [place] | [address] | documented in this e ncounter Procedure Notes Other, Faculty - 03/03/2013 10:14 AM PDTAssociated Order(s): LAB REPORTSElectronically sign ed by Faculty Other at 03/03/2013 10:14 AM PDTdocumented in this encounter Plan of Treatment Not [...]
--- OUTSIDE RECORDS SUMMARY | ~2020-08-05 | XMS | Encounter Summary ---
Demographics + + + | Address | [address] | | | [place] [address] | + + + | Home Phone | | + + + | Preferred Language | Unknown | + + + | Marital Status | | + + + | Restoration Affiliation | CHR | + + + | Race | White | + + + | Ethnic Group | Not or | + + + Author + + + | Author | [facility] | + + + | Organization | [facility] | + + + | Address | Unknown | + + + | Phone | Unavailable | + + + Support + + + + + | Name | Relationship | Address | Phone | + + + + + | Tico Burns | ECON | [address] | | | | | [place], [place] | | | | | [address] | | + + + + + Care Team Providers + +------+ + | Care Cut Off Saw Grader Name | Role | Phone | + +------+ + | Moe Bella MD | PCP | | + +------+ + Reason for Visit + + + | Reason | Comments | + + + | Bariatric Nutrition | DM2, morbid obestiy. | + + + Office Visit - E/M Services (Routine) +--------+--------+ + + + + | Status | Reason | Specialty | Diagnoses / | Referred By | Referred To | | | | | Procedures | Contact | Contact | +--------+--------+ + + + + | Closed | | Nutrition | Diagnoses | Shayne, | Fn | | | | | Morbid | Moe B, | [facility] | | | | | obesity | MD [address] | | | | | (HCC) Type | [place] [address] | | | | | II or | [address] | Center for | | | | | unspecified | [place], | Health and | | | | | type | [place] [address] | Healing, | | | | | diabetes | Phone: | [address] | | | | | mellitus | [phone] | [place], [place] | | | | | without | Fax: | [address] | | | | | mention of | [phone] | Phone: | | | | | complication | | [phone] | | | | | , not stated | | Fax: | | | | | as | | [phone] | | | | | uncontrolled | | | +--------+--------+ + + + + Encounter Details +--------+---------+ + + + | Date | Type | Department | Care Team | Description | +--------+---------+ + + + | 06/10/ | Office | Digestive Health | [address] | Diabetes mellitus | | 2011 | Visit | Center at [facility] [address] | | ([facility]); Morbid | | | | [address] | | obesity ([facility]) | | | | for Health and | | | | | | Healing, [address] | | | | | | [place], [place] | | | | | | [address] | | | | | | [phone] | | | +--------+---------+ + + + Social History + +-------+ +--------+------+ | Tobacco Use | Types | Packs/Day | Years | Date | | | | | Used | | + +-------+ +--------+------+ | Unknown If Ever | | | | | | Smoked | | | | | + +-------+ +--------+------+ + + +---------+ + | Alcohol Use | Drinks/Week | oz/Week | Comments | + + +---------+ + | Not Asked | | | | + + +---------+ + [...] + + + + | Weight | 251.7 kg (555 lb) | 06/10/2012 2:32 PM | | | | | PDT | | + + + + + | Height | 177.8 cm (5' 10") | 06/10/2012 2:32 PM | | | | | PDT | | + + + + + | Body Mass Index | 79.63 | 06/10/2012 2:32 PM | | | | | PDT | | + + + + + documented in this encounter Progress Notes Christine Ferris, RD - 06/10/2012 2:32 PM PDT Referring Provider: Moe Bella MD Clinic: [facility], Pre Bariatric Surgery Visit Services, for diet consult prior to having Marina En Y gastric bypass surgery. Documented Time of Visit: 2:30 until 3:20. 50 minutes [id number] consult with the Shilpi bethea. SUBJECTIVE: Patient Attended Public Meeting: yes Questions/ Information desired today: none. Changes made since Public meetin. Decreasing Diet Pepsi, now drinking Iced tea, non sweetened or with Splenda. Goal, patient wants to have surgery to improve his overall health and be more active. . Daily food frequency information provided: Yes Breakfast: Bowl of shredded wheat, 1.5 cup with milk, 2%. Lunch: noon to 2 pm. [place] from the sub shop, 12 " Tuna salad , lettuce, olives and onions, pepper tomas lipscomb. Has this about 3 times per week. Dinner: 6:30 PM Starts cooking dinner about 4:30 and snacks and eats while he is making dinner. Doesn't eat after dinner. Snacks on crackers and carbs. Food Allergies: No Food Intolerances: No Lactose Intolerance: No Emotional Eating: Yes, due to Stress Likes to cook when he is stressed, at home. Tends to bake. Weight belt changer the past year: About the same: Best diet success and why: when his and he both work together, [employer], Weight W atches. Current Physical Exercise: nothing OBJECTIVE: Height: Ht Readings from Last 1 Encounters: 06/10/12 1.778 m (5' 10") Weight: Wt Readings from Last 1 Encounters: 06/10/12 251.746 kg (555 lb) Past Medical History: Past Medical History Diagnosis Date BP (high blood pressure) Numbness 2006 hands and feet High cholesterol Leg sore Depressed 2010 Diabetes mellitus 2005 Thyroid disease 2010 Cancer 2010 Medications: See list in Epic snap shot Medications for Diabetes: Insulin, Humalog, Apidra, and Lantus. Dietary Supplements: Multivitamin, Mens general health. Iron tablet, over the counter. Labs: Other relevant labs if available from outside [facility]. Nutrition Diagnosis: Obesity as evidenced by BMI of 79.63. . Factors contributing to obesity: Emotional eating Lifestyle issues Lack of a regular physical activity program Genetics Intake of excessive empty calories Pre-Surgery Diet: Provided written diet suggestions to help patient lose weight before surgery. Discussed behavior changes to practice before surgery to prepare for surgery. Explore exercise program options Post surgery diet education: Provided visual, verbal & written information on all aspects of bariatric surgery. Discusse d lifelong behavior changes, proper diet selections and exercise. Encouraged patient to f/u with dietitian pre or post surgery. Written Education Provided: Provided and reviewed an instructional handout with the patient on diet progression, sample menus, ideas, food items and vitamins and minerals needed for surgery. Emphasized the impo rtance of a regular physical activity program of 30-60 minutes per day to maintain weight lo ss post surgery. Patient's Comprehension: The patient is: Receptive Stage of change: Contemplation Barrier(s) to education: No Learning style: Patient is a Visual learner Information provided in writing, and used visual aids to demonstrate food portions Post surgery and size of stomach after surgery. Expected Outcome: I think the patient will do moderately if following all lifestyle and behavioral changes discussed today. GOAL: pre surgery weight loss goal is 30 lbs. The patient's goal is to have weight loss surgery to maintain weight loss and improve other health conditions. 1. Continue to practice behavioral changes to prepare for surgery. Try suggestions provided for smaller meals, ideas to increase veggie intake. Have a planned snack "veggie tray with cottage cheese [place] yogurt dip" at 4 PM wit h his 3 kids. 2. Suggested he read the 2 books recommended. ~Emotional First Aid Kit ~Mindful Eating, by Terrence Ochoa MD 3. Review all information provided for post surgery diet progression. 4. Suggested he call me in one month to report progress. . 5. Follow up with dietitian 2 weeks after surgery at first post op visit. 6. Contact information was provided. documented in this enc ounter Plan of Treatment Not on filedocumented as of this encounter Procedures + +--------+ + + + | Procedure Name | Priori | Date/Time | Associated Diagnosis | Comments | | | ty | | | | + +--------+ + + + | [place] MNT INITIAL | Routin | 06/10/2012 | Diabetes mellitus | | | ASSESSMNT [id number] | e | 3:25 PM | (HCC) Morbid | | | | | PDT | obesity (HCC) | | + +--------+ + + + documented in this encounter Visit Diagnoses + + | Diagnosis | + + | Diabetes mellitus (HCC) Type II or unspecified type diabetes mellitus without mention | | of complication, not stated as uncontrolled | + + | Morbid obesity (HCC) Morbid obesity | + + documented in this encounter
--- OUTSIDE RECORDS SUMMARY | ~2020-08-05 | XMS | Encounter Summary ---
Demographics + + + | Address | [address] [facility] [facility] [address] | | | [place] [address] | + + + | Home Phone | | + + + | Preferred Language | Unknown | + + + | Marital Status | | + + + | Orthodox Affiliation | CHR | + + [...] + | Tico Burns | ECON | [address] | | | | | [place], [place] | | | | | [address] | | + + + + + Care Team Providers + +------+ + | Care Staff Combat Information Center Officer Name | Role | Phone | [...] + + | 04/11/ | Hospital | [facility] [address] | Harpreet Fenton, | | | 2013 - | Encounter | [address] | [place] [address] [facility] | | | | | [place], [place] | [address] | | | 04/14/ | | [address] | [place], [place] | | | 2012 | | [phone] | [address] | | | | | | [phone] | | | | | | | [...] + documented in this encounter Discharge Summaries Kalina Brody, CRISTIN - 04/14/2013 1:42 PM PDT INPATIENT PHYSICIAN DISCHARGE SUMMARY Attending Physician: Dr. Harpreet Fenton PCP: Moe Bella MD Admission Date: [...] consult intraop for placement of a 16 Indonesian ur ethral catheter, which was later removed, [...] SSI. He will follow up with his veterinary practitioner. He will have a change in his [...] Department Dept Phone Center 04/24/2013 10:[address] [facility] Bariatric Surgery [phone] [facility] Your Follow-Up Plan Follow up with HARPREET FENTON MD. Schedule an appointment as soon as possible for a vis it on 04/17/2013. (the office will call you to reschedule and see if your needs can be met wi one visit) Contact information [address] [facility] [address] Other Discharge Orders and Instructions Medication Refill Instructions: If you need a refill on any narcotic pain medications, please call the clinic ([phone] ) by 2 pm on for any [...] during the day time hours by calling [facility] surgery office at [phone] - After hours, weekends and holidays, you may call the hospital telegraphic typewriter operator at [phone] an d have the marketing database consultant Green Team for general surgery paged. Constipation: [...] activity, sleep and overall healing. You are bein g sent home with a prescription for pain relief. This should be taken every 3-6 hours per y our instructions. Some medications, like lortab or hydrocodone have Tylenol in it. Make neeta e you do not take more than 3,000 mg of tylenol or acetaminophen in 24 hours. Outstanding labs/studies: CRISTIN HOBSON [place] [id number] [place] [address] Discharging Physician: CRISTIN HOBSON Attending Physician: Dr. Harpreet Fenton documented in thi s encounter Discharge [...] mouth | 100 Tab | 12 | 01/24/ | | | Citrate-Vitamin D3 | two [...] Brody ACNP - 04/14/2013 1:29 PM PDT [facility] Inpatient Progress Note Hospital Day #3 Author: CRISTIN HOBSON Attending: Dr. 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 Nannette Duran MD - 04/13/2013 10:20 AM PDT GREEN SURGERY PROGRESS NOTE Hospital Day:2 Author; NANNETTE LUJAN MD Attending Physician: Dr. Fenton Interval Hx: High CBGs for which [facility] was consulted yesterday - further adjustments [...] Nannette Lujan MD, 0.1 mg at 0 04/13/13 0819 dextrose 50 % IV 25 mL, 25 mL, Intravenous, PRN, Nannette Lujan MD docusate sodium (aka COLACE) capsule 100 mg, 100 mg, Oral, BID, Nannette Lujan MD, 100 mg at 04/13/13 0820 enoxaparin (aka LOVENOX) injection 30 mg, 30 mg, Subcutaneous, Q12H (Scheduled), Nannette Lujan MD, 30 mg at 04/13/13817 famotidine (aka PEPCID) tablet 20 mg, 20 mg, Oral, BID, Nannette Lujan MD, 20 mg at 04/13 FLUoxetine (aka PROZAC) capsule 20 mg, 20 mg, Oral, BID, Nannette Lujan MD, 20 mg at 0607/18 glucagon (aka GLUCAGEN) injection 1 mg, 1 [...] injection 35 Units, 35 Units, Subcutaneous, HS, Geneva Colvin MD insulin lispro (aka HUMALOG) injection 12 Units, 12 Units, Subcutaneous, TID W/MEALS, Benjie Colvin MD insulin lispro (aka HUMALOG) injection, , Subcutaneous, MEALS and HS, Nannette Lujan MD, 2 Units at 04/13/13819 lactated ringers IV, 100 mL/hr, Intravenous, CONTINUOUS, Nannette Lujan MD, Last Rate: 10 0 mL/hr at 04/12/131999, 100 mL/hr at 04/12/131999 levothyroxine tablet 175 mcg, 175 mcg, Oral, DAILY, Nannette Lujan MD, 175 mcg at 820 metFORMIN SR (aka GLUCOPHAGE XR) tablet 2,000 mg, 2,000 mg, Oral, DAILY, Geneva morris MD, 2,000 mg at 04/13/13820 metoprolol tartrate (aka LOPRESSOR) tablet 100 mg, 100 mg, Oral, BID, Nannette Lujan MD, 100 mg at 06/09/13 0818 multivitamin 1 Cap, 1 Cap, Oral, DAILY, Nannette Lujan MD, 1 Cap at 04/13/13 0821 ondansetron (aka ZOFRAN) injection 4 mg, 4 mg, Intravenous, Q12H PRN, Nannette Lujan MD oxyCODONE (immediate release) (aka ROXICODONE) tablet 5-15 mg, 5-15 mg, Oral, Q3H PRN, Jose De Jesus dov Lujan MD, 10 mg at 04/12/13 210 polyethylene glycol (aka MIRALAX) powder 17 g, [...] regimens -Will follow CBGs closely - appreciate [facility] help -Likely home tomorrow NANNETTE LUJAN MD PLASTIC AND RECONSTRUCTIVE SURGERY GREEN SURGERY Nannette Duran MD - 04/12/2013 11:27 AM PDTFormatting of [...] kg/(m^2) O2 Delivery Device: None (room air) (04/12/13608) 24 Hour Vital Min/Max: Systolic (24hrs), Av mmHg, Min:120 mmHg, Max:148 mmHgDiastolic (24hrs), Av mmHg, M in:59 mmHg, Max:82 mmHgPulse Av.1 Min: 55 Max: 71 Temp Av.5 C (97.7 F) Min: 36.3 C (97.3 F) Max: 36.8 C (98.2 F) Resp Av.6 Min: 10 Max: 18 SpO2 Av.8 % Min: 93 % Max: 99 % Intake/Output Summary (Last 24 hours) at 04/12/13 112 Last data filed at 04/12/13834 Gross per 24 hour Intake 4958.34 ml [...] BID, Nannette Lujan MD, 20 mg at 0606/17 glucagon (aka GLUCAGEN) injection 1 mg, 1 [...] DAILY, Nannette Lujan MD, 175 mcg at 829 metoprolol tartrate (aka LOPRESSOR) tablet 100 mg, [...] Nannette Lujan MD, 300 mg at 0 04/12/13 0829 Assessment and Plan: Gerard Burns is a [...] Burns Primary Team: Green Surgery Attending Surgeon: Harpreet Fenton MD At: 04/11/2013 10:24 PM PROCEDURE: excision of large fatty tumor SUBJECTIVE: Pain well controlled on 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 M, with PMH s/f morbid obesity who is POD#0 s/p [...] am 10. Encourage IS 11. DVT px: Zac Hutchinson MD Surgery, R1 Pager: [phone] documented in this encounter H&P Notes Other, Faculty - 04/17/2013 10:54 AM PDTElectronically signed by Faculty Other at 3 10:54 AM PDTdocumented in this encounter Procedure Notes Other, Faculty - 04/17/2013 10:54 AM PDTAssociated Order(s): PROCEDURE NOTEElectronically s igned by Faculty Other at 04/17/2013 10:54 AM Nannette Duran MD - 04/11/2013 1:41 PM PDTAssociated Order(s): PROCEDURE NOTEOPERATIVE NOTE Procedure Date: 04/11/13 Author: NANNETTE LUJAN MD Attending Physician: Harpreet Fenton MD Assistants: Nannette Lujan MD Preoperative Diagnosis: 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 Burns is a 48 yo Morbidly obese male who underwent gastric bypass surge ry in january. The patient had lost 30lbs prior to that operation and has lost 70lbs since - he currently weighs 480lbs (down from 580lbs). The patient had significant enlargement of h is "mons" area which become pendulous over time and was hanging below his knees making walki ng difficult. This fatty tumor lies entirely anterior to the genitals causing burried penis and difficulty accessing the penis for urination. The patient was therefor indicated for r esection of this large fatty overgrowth. Prior to the beginning of the procedure, the team paused to verify the patient s identity , the procedure to be performed (in accordance with the consent,) and the correct side/site. The patient was positioned appropriately. All relevant images and results were properly lab eled and displayed. We addressed antibiotic prophylaxis and fluids for irrigation as applica ble to this patient. Any safety precautions were addressed. The fatty tumor was retracted c ephalad and his scrotum was identified on the backside of this growth - the Urology service was able to find the penis and place a chau catheter without the use of a scope. Once the f oley was in the patient's pannus was retracted cephalad with heavy tape and he was then the field was prepped and draped in the standard fashion. An incision was planned circumferentially around the base of the tumor and was incised with a #10 scalpel. Bovie electrocautery was then used to open the incision deeper circumferent ially. The fatty tumor was found to be highly vascular and fiberous and for this reason the rest of the amputation was carried out with a ligasure device as well as tying off all large blood vessels and lymphatics that were encountered with 2-0 vicryl free ties. Great care w as taken to stay away from the penis, testicles and cord structures and the amputation of th e fatty tumor was completed without encountering any of these structures. Once free, the tu mor was passed off the field and weighed (28.6lbs) We then turned our attention to closing the defect - it was closed transversly with interru pted deep dermal stitches using 2-0 vicryl. No zuly or subcuticular stitches were used a s the plan was for the closure to be loose to allow drainage from the large underlying poten tial space. Once closed, 48ml of local anesthetic was injected along the edges of the incis ion for postoperative anesthesia. The incision was then covered with ABD pads and Medipore tape. At this point the operation was considered complete, the patient was awoken from gene ral anesthesia and taken to the PACU in good condition. Importantly the attending, Dr. Fenton, was present and scrubbed for the entire operation Disposition: PACU and then to the floor Nannette Lujan MD Plastic Surgery [address] Surgery Service Paresh Frazier MD - 04/11/2013 9:46 AM PDTAssociated Order(s): PROCEDURE NOTEPHYSICIAN OPERATION REPORT Procedure Date: 04/11/2013 Author: PARESH RIOS MD Attending Physician: Paresh Rios MD Assistants: Satya Hammonds MD Preoperative Diagnosis: Morbid Obesity Postoperative Diagnosis: Morbid Obesity Procedure Performed: Complicated urethral catheter placement Anesthesia: General ETA Estimated Blood Loss: None Complications: None Specimens: None Drains: 16Fr urethral catheter with 10mL water in balloon Indication: 48yom who is undergoing a panniculectomy. Due to his severe obesity, his penis is not visible, and therefore we were consulted for intraoperative urethral catheterization for his operation. Findings: large pannus with resultant buried penis Procedures: After induction of anesthesia, retraction of the panus was performed. With the use of 3 assistants, enough pressure could be applied to the region around the penis to expo se the glans penis. The glans penis was then prepped with betadine, and a 16Fr urethral catheter was placed. Th ere was clear urine draining. 10mL sterile water was used to inflate the balloon. The foresk in was allowed to reduce. Disposition: Remains under anesthesia for surgery. Paresh Rios MD documented in this enc ounter Consult Notes JanuaryGeneva MD - 04/14/2013 8:50 AM PDTFormatting of this note might be differen t from the original. CLINICAL HOSPITALIST SERVICE ([facility])-PROGRESS NOTE Glycemic team follow up: HOSPITAL DAY: 3 Author: GENEVA COLVIN MD Subjective: Doing great this AM. Excited about DC home. Feels much more comfortable with current insulin regimen. Physical Exam: Vitals (Most recent): BP 128/68 | Pulse 74 | Temp 36.8 C (98.2 F) | RR 18 | Ht 1.753 m (5' 9") | Wt 210.2 kg (463 lb 6.5 oz) | SpO2 94% | BMI 68.4 kg/(m^2) Intake/Output Summary (Last 24 hours) at 04/14/13 0850 Last data filed at 04/14/13 0600 Gross per 24 hour Intake 2430 ml Output 1200 ml Net 1230 ml General : pleasant man in no distress, aao x 3 Current Meds: reviewed. See [facility] for full list. Assessment/Plan: Gerard Burns is a 48 y.o. man with super morbid obesity s/p RYGB a dmitted for excision of large fatty abdominal tumor with hyperglycemia. 1. Diabetes mellitus type 2: improved control with basal + bolus regimen. One high glucose yesterday due to receiving half of scheduled short-acting insulin at lunch. Diet : diabetic CBGs (24h) : 183 - 138 - 198 (rec'd half short acting prior to this) - 136 - 171 Target glucose : Fasting <140 and Random <180 (Non-ICU patients) Home Rx : metformin xr 2000mg daily, glargine 50 units, lispro correctional scale Current Rx : metformin xr 2000mg daily, glargine 35 units, lispro 12 units tidwm, lispro correctional scale IV fluids : LR BMP : normal on 04/12 Hypoglycemia : none Other pertinent factors : none Recommendations: Current insulin doses look appropriate, would not make any changes on DC today. Follow-up with current veterinary practitioner in 1-[address] [facility] 14[address] Clinical Hospitalist Service [facility] DEPARTMENT: Hosp ([facility]) - [phone] Place of Service: - Date of Service: 04/14/2013 [facility] [phone] Modifiers:GC Resident Involved: No Service: CONSULT GLYCEMIC Suggested CPT: 96681 Subsequent Visit Prob Focused/Low Complexity 15 min I spent more than 15 minutes avnn-sj-uama with the patient of which greater than 50% was sp ent counseling the patient. arch, Jose Juan Bautista MD - 04/13/2013 8:57 AM PDTFormatting of this note might be different from the origin al. CLINICAL HOSPITALIST SERVICE ([facility])-PROGRESS NOTE Glycemic team follow up: HOSPITAL DAY: 2 Author: GENEVA COLVIN MD Subjective: no acute events. More comfortable with this insulin regimen. Eating well, les s post-op pain than he expected. Physical Exam: Vitals (Most recent): BP 114/64 | Pulse 69 | Temp 36.8 C (98.2 F) | RR 18 | Ht 1.753 m (5' 9") | Wt 210.2 kg (463 lb 6.5 oz) | SpO2 94% | BMI 68.4 kg/(m^2) Intake/Output Summary (Last 24 hours) at 04/13/13 0857 Last data filed at 04/13/13 0835 Gross per 24 hour Intake 1150 ml Output 850 ml Net 300 ml General : pleasant man in no distress, alert, oriented. Current Meds: reviewed. See [facility] for full list. Assessment/Plan: Gerard Burns is a 48 y.o. man with super morbid obesity s/p RYGB a dmitted for excision of large fatty abdominal tumor with hyperglycemia. 1. Diabetes mellitus type 2: his insulin regimen was changed from basal/bolus prior to his RYGB to basal only with correctional scale. He would benefit from transition back to basal/b olus regimen and this has now been done. Diet : diabetic CBGs (24h) : 190-241 (prior to current regimen) 153-231 after current regimen Target glucose : Fasting <140 and Random <180 (Non-ICU patients) Home Rx : metformin xr 2000mg daily, glargine 50 units, lispro correctional scale Current Rx : metformin xr 2000mg daily, glargine 30 units, lispro 10 units tidwm, lispro correctional scale IV fluids : LR BMP : K+ is within normal limits and creatinine is within normal limits yesterday Hypoglycemia : none Other pertinent factors : none Recommendations: Increase glargine to 35 units qhs Increase mealtime lispro to 12 units TID WM Continue correctional scale and metformin as rx'ed GENEVA COLVIN MD [facility] 14A Clinical Hospitalist Service [facility] EPIC DEPARTMENT: Hosp ([facility]) - [phone] Place of Service: IP Date of Service: 04/13/2013 [facility] [phone] Modifiers:GC Resident Involved: No Service: CONSULT GLYCEMIC Suggested CPT: 42375 Subsequent Visit Prob Focused/Low Complexity 15 min arch, Jose Juan Bautista MD - 04/12/2013 3:30 PM PDTFormatting of this note might be different from the origin al. HOSPITALIST INPATIENT CONSULT NOTE Consulting Physician: GENEVA COLVIN MD Referring Physician: Harpreet Fenton MD Primary Care Physician: Moe Bella MD Glycemic team consult DATE OF ADMISSION: 04/11/2013 DATE OF CONSULT: 04/12/2013 REASON FOR CONSULT: Recommendations for management of hyperglycemia HISTORY OF PRESENT ILLNESS: Gerard Burns is a 48 y.o. man with super morbid obesity s/p RYGB 01/2013, DM, who was admitted for excision of large fatty abdominal tumor. Diabetes related history: Is the pt a known diabetic? : Yes Type of diabetes: : type 2 Duration of diabetes: : 7 years Family hx of DM? : Yes - maternal aunt, uncle On insulin at home? : Yes HbA1C (most recent) : 8.1 Controlled or uncontrolled? : Uncontrolled Complications (list) : neuropathy Home monitoring : Yes - fasting, before lunch and dinner Hx of hypoglycemia? : No Diet (at home) : carb controlled On steroids? : No Anti-psychotics? : No NATALI/CKD? : No Liver failure? : No CHF? : No Pancreatic conditions? 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 Tolerating PO. No fevers, chills. PMHx: Past Medical History Diagnosis Date BP (high blood pressure) Numbness 2006 hands and feet High cholesterol Leg sore Depressed 2010 Diabetes mellitus 2006 Thyroid disease 2011 Cancer 2011 Sleep apnea on CPAP Diabetes mellitus type II PSurgHx: Past Surgical History Procedure Laterality Date Thyroid removal Gastric bypass attempted Sleeve resection of stomach 01/2013 FamHx: Family History Problem Relation Arthritis Father SOCIAL Hx: Social History Main Topics Smoking status: Never Smoker Smokeless tobacco: Never Used Alcohol Use: 0.0 oz/week 0 drink(s) per week very rare Drug Use: No Social History Narrative to Shilpi ALLERGIES: Allergies Allergen Reactions Codeine Rash Rash all over arms PHYSICAL EXAM: Last Vitals: BP 119/65 | Pulse 77 | Temp 37 C (98.6 F) | RR 16 | Ht 1.753 m (5' 9") | Wt 218.4 kg (481 lb 7.8 oz) | SpO2 94% | BMI 71.07 kg/(m^2) General: Alert and oriented x 3 and appears comfortable at rest. There is no pallor, dayan dice, cyanosis, clubbing or lymphadenopathy. Cardiac: RRR no m/r/g Respiratory: clear lungs, decreased BS bilaterally due to habitus Abdomen: very large pannus, incisions with clean dry dressings covering Skin: warm, dry, no rash or lesions LAB DATA: CBGs in last 24 hours 149 (fasting) -271 ASSESSMENT and RECOMMENDATIONS: Gerard Burns is a 48 y.o. man with super morbid obe sity s/p RYGB admitted for excision of large fatty abdominal tumor with hyperglycemia. 1. Diabetes mellitus type 2: his insulin regimen was changed from basal/bolus prior to his RYGB to basal only with correctional scale. He would benefit from transition back to basal/ bolus regimen. Diet : diabetic CBGs (24h) : 149-271 Target glucose : Fasting <140 and Random <180 (Non-ICU patients) Home Rx : metformin 2000mg daily, glargine 50 units, lispro correctional scale Current Rx : glargine 50 units, lispro correctional scale IV fluids : LR 100 ml/hr BMP : K+ is 3.7 and creatinine is 0.79 Hypoglycemia : None Other pertinent factors : None Recommendations: Given medical stability, would restart metformin at 2000mg daily Change glargine to 30 units at night Add lispro 10 units TID WM Continue lispro correctional scale I have written the above orders and sent an FYI page to the primary team. Thank you for the opportunity to contribute to this patient's care. GENEVA COLVIN MD [place] [id number] Clinical Hospitalist Service Division of Hospital Medicine Department of Medicine [facility] DEPARTMENT: Hosp ([facility]) - [phone] Place of Service: - Date of Service: 04/12/2013 [facility] [phone] Modifiers:GC Resident Involved: No Service: CONSULT GLYCEMIC Suggested CPT: 56886 Initial Visit Comp/Mod Complexity 50 min documented in th is encounter Miscellaneous Notes Scan - Other, Faculty - 04/17/2013 10:54 AM PDTElectronically signed by Faculty Other at 10:54 AM PDTScan - Other, Faculty - 04/17/2013 10:54 AM PDT can - Other, Faculty - 04/17/2013 10:54 AM PDTElec tronically signed by Faculty Other at 04/17/2013 10:54 AM PDTScan - Other, Faculty - 013 10:54 AM PDT can - Alicia r, Faculty - 04/17/2013 10:54 AM PDT 10: 54 AM PDTPlan of Care - Anika Fry E, PT - 04/15/2013 4:55 PM PDTFormatting of this not e might be different from the original. Physical Therapy Evaluation 04/15/2013 4:55 PM Patient admitted on: 04/11/2013 7:30 AM, hospital day number 3 Brief Hospital Course: 48 yo m s/p Excision of large fatty tumor Patient seen on: Relevant Precautions: Abdominal, low incision Past Medical History Diagnosis Date BP (high blood pressure) Numbness 2007 hands and feet High cholesterol Leg sore Depressed 2010 Diabetes mellitus 2006 Thyroid disease 2011 Cancer 2011 Sleep apnea on CPAP Diabetes mellitus type II Past Surgical History Procedure Laterality Date Thyroid removal Gastric bypass attempted Sleeve resection of stomach 01/2013 Living Environment: one level home, no steps. 28/05 assist. Has a cane if he needs it. Prior Level of Function: independent Patient / Family Goal: to go home Communication: liss Barriers: none Pain: none Vital signs: na, asymptomatic. Subjective statement: willing to work with PT Cognitive Screen Alert, no deficits noted Physical Assessment ROM: WFL Strength: WFL Edema: none noted Skin Integrity: nothing abnormal noted through incision dressing Neurological Function Sensation: na Muscle Tone: intact Proprioception: intact Gross Motor: intact Fine Motor: na Balance: independent Mobility & Transfers: independent supine to and from sit with no rail, HOB flat (after mohamud tment below). Sit to stand with no device, no loss of balance. Gait: ambulated independently. Gait functional. States he feels a little 'drunk' from the p ain meds. States he has a cane if he needs to use it. No loss of balance however during gait . Treatment provided this date: instructed in abdominal precautions and rationale behind them . Handout provided. Instructed in logroll both in and out of bed. Patient required 2x to pra ctice with cues for proper form with no rail and HOB flat. Instructed in home exercise progr am for upper extremity's and lower extremity's - handout provided. Patient able to perform a ll exercises independently and agreeable to perform 2x each day. Ended session: in supine, family in room, needs met, nurse aware, call light handy. ASSESSMENT: no further acute PT needs at this time. Has met all goals. Recommendations: DC recs: anticipate home with family assist. PLAN: Dc acute PT The above plan was reviewed with the patient. ANIKA FRY PT valuation - Yolis Saba RN - 04/14/2013 12:20 PM PDTNursing Discharge Note Discharge Date: 04/14/2013 Additional Discharge Information: Pt instructed to follow diet, activity, and medication orders. Had consult this am w diabet ic team. Pt reports feeling comfortable with at home diabetes care. Pt instructed to call ysician with any questions or concerns, and to watch for signs and symptoms of surgical site infection (pain, redness, swelling). Pt instructed to follow abdominal precautions, and not to drive or operate heavy machinery while taking narcotic pain medication. Pt instructed to avoid bathtubs and hot tubs, encouraged to shower. Pt provided prescriptions and medication administration instructions. Pt voiding adequately, having bowel movements, and tolerating food. Discharge Nurse: YOLIS SABA RN lan of Care - Yolis Saba RN - 04/14/2013 8:31 AM PDTProblem: General Plan of Care (Adult) Goal: Individualization/Patient-Specific Goal Goals: 1. Patient will not fall. 2. Patient will have no skin breakdown. 3. Patient will rate pain at a 4 or less. Interventions: 1. Call light within reach, necessary supplies within reach at bedside, including water bot tle, non-skid slippers on when OOB, 1 person assist, & bed rails up. 2. Turn Q2 hours, encourage ambulation, cleanse skin as soon as it is soiled, check skin fo r soiling Q 2 hours, utilize barrier cream, and encourage patient to get OOB. 3. Assess pain every 4 hours, offer distraction through TV and newspaper, teach relaxation techniques, offer heat or cold, and medicate. Reassess pain within 1 hour of intervention. valuation - Gayatri Reilly RN - 04/14/2013 2:51 AM PDTProblem: General Plan of Care (Adult) Goal: Individualization/Patient-Specific Goal Goals: 1.) Patient will be able to have regular bowel movements prior to discharge. 2.) Patient demonstrates proper technique of using IS 3.) Patient will maintain skin integrity 5.) Patient will be without falls Interventions: 1.) Provide patient with bowel care medications and encourage PO fluids and mobility to pre vent constipation 2.) Reinforce use of IS/CDB and importance of pulmonary activities 3.) Encourage patient to mobilize as much as possible by encouraging moving in bed, turning Q 2 hrs and preventing patient from lying on tubes. 4.) Bed in low position with brakes locked, side rails x2, room near station, call light in reach, clutter free environment with needed personal items in reach Interventions that worked/didn't work:goals met. BM 04/13. Uses IS independently. Skin CDI. N o falls noted. My recommendations forward:continue to monitor respiratory status, and pt's use of IS. Cont inue to encourage repositioning Q2 hours or as needed, monitor skin integrity. Maintain a sa fe and clutter free environment. Patient Stability:moderately stable andoff - Gayatri Angulo RN - 04/14/2013 2:51 AM PDTNursing Handoff Report Primary focus of stay: PANNICULECTOMY (GEN) - REMOVAL OF FATTY TUMOR PANNUS -48yom who is undergoing a panniculectomy. Due to his severe obesity, his penis is not visi ble, and therefore we were consulted for intraoperative urethral catheterization for his ope ration. Pertinent physical findings: VSS -Neuro: A&Ox4 -Resp: CPAP at noc -Cardiac: WNL -GI: Hypo BT tones, abd horizontal dressing reinforced with abd pads. BM 04/14 -: chau dc'd -Skin: intact, -PIVx2, SLIV Ambulated in hallway x2, up to chair today Tolerating diet, started on dm meds po, also covered with insulin Orders to follow up on: dc today Last pain assessment/reassessment:pain controlled, no need for narcotics Psych/social issues: none, pleasant, here most of day Last patient visit (i.e. Falls/Activity/Comfort/Environment/Toileting/Skin): calls иван zuñiga, skin intact horizontal midline incision, up with SBA Anticipated or pending procedures: continue out of bed , dc home on sunday lan of Care - Gayatri Leo RN - 04/13/2013 10:18 PM PDTProblem: General Plan of Care (Adult) Goal: Individualization/Patient-Specific Goal Goals: 1.) Patient will be able to have regular bowel movements prior to discharge. 2.) Patient demonstrates proper technique of using IS 3.) Patient will maintain skin integrity 5.) Patient will be without falls Interventions: 1.) Provide patient with bowel care medications and encourage PO fluids and mobility to pre vent constipation 2.) Reinforce use of IS/CDB and importance of pulmonary activities 3.) Encourage patient to mobilize as much as possible by encouraging moving in bed, turning Q 2 hrs and preventing patient from lying on tubes. 4.) Bed in low position with brakes locked, side rails x2, room near station, call light in reach, clutter free environment with needed personal items in reach andoff - Jerald Ramsay RN - 04/13/2013 10:16 AM PDT Nursing Handoff Report Primary focus of stay: PANNICULECTOMY (GEN) - REMOVAL OF FATTY TUMOR PANNUS -48yom who is undergoing a panniculectomy. Due to his severe obesity, his penis is not visi ble, and therefore we were consulted for intraoperative urethral catheterization for his ope ration. Pertinent physical findings: VSS -Neuro: A&Ox4 -Resp: CPAP at noc -Cardiac: WNL -GI: Hypo BT tones, abd horizontal dressing reinforced with abd pads. -: chau dc'd, no void yet -Skin: intact, -PIVx2, SLIV Ambulated in hallway x2, up to chair today Tolerating diet, started on dm meds po, also covered with insulin Orders to follow up on: Last pain assessment/reassessment:pain controlled, no need for narcotics Psych/social issues: none, pleasant, here most of day Last patient visit (i.e. Falls/Activity/Comfort/Environment/Toileting/Skin): calls иван zuñiga, skin intact horizontal midline incision, up with SBA Anticipated or pending procedures: continue out of bed , dc home on sunday andoff - Natalie Mcneil RN - 04/13/2013 5:27 AM PDTFormatting of this note might be different from the origin al. Nursing Handoff Report Primary focus of stay: PANNICULECTOMY (GEN) - REMOVAL OF FATTY TUMOR PANNUS -48yom who is undergoing a panniculectomy. Due to his severe obesity, his penis is not visi ble, and therefore we were consulted for intraoperative urethral catheterization for his ope ration. Pertinent physical findings: VSS -Neuro: A&Ox4 -Resp: 1L NC SpO2 mid 90s RR 16-18 hx KARELY CPAP at [facility] -Cardiac: WNL -GI: Hypo BT tones, abd horizontal dressing reinforced with abd pads. -: 16fr chau adequate urine output -Skin: intact, -PIVx2, SLIV Ambulated in hallway, up to chair today Tolerating diet, started on dm meds po, also covered with insulin Orders to follow up on: Last pain assessment/reassessment:medicated with 10 mg oxycodone x1 today Psych/social issues: none, pleasant, here most of day Last patient visit (i.e. Falls/Activity/Comfort/Environment/Toileting/Skin): calls appropri ately, chau, skin intact horizontal midline incision, up with SBA Anticipated or pending procedures: continue out of bed andoff - Jerald Yeung RN - 04/12/2013 2:30 PM PDTFormatting of this note might be different from the origin al. Nursing Handoff Report Primary focus of stay: PANNICULECTOMY (GEN) - REMOVAL OF FATTY TUMOR PANNUS -48yom who is undergoing a panniculectomy. Due to his severe obesity, his penis is not visi ble, and therefore we were consulted for intraoperative urethral catheterization for his ope ration. Pertinent physical findings: VSS -Neuro: A&Ox4 -Resp: 1L NC SpO2 mid 90s RR 16-18 hx KARELY CPAP at [facility] -Cardiac: BP 128/73 - 148/82 HR: 55 - 71 -GI: Hypo BT tones, abd horizontal dressing reinforced with abd pads. -: 16fr chau adequate urine output -Skin: intact, -MIVF LR 100ml PIVx2 Ambulated in hallway, up to chair today, Tolerating diet, started on dm meds po, also covered with insulin Orders to follow up on: Am labs Last pain assessment/reassessment:medicated with 10 mg oxycodone x1 today Psych/social issues: none, pleasant, here most of day Last patient visit (i.e. Falls/Activity/Comfort/Environment/Toileting/Skin):end of shift, p t sitting up in chair, going to order dinner Bedrest, calls appropriately, chau, skin intac t horizontal midline incision Anticipated or pending procedures: continue out of bed, monitor cbg vbenjamin - Jeanie Wood - 04/12/2013 6:05 AM PDT Problem: General Plan of Care (Adult) Intervention: NPEOC Acute Problem: General Plan of Care (Adult) Intervention: NPEOC Acute Problem: General Plan of Care (Adult) Intervention: NPEOC Acute Problem: General Plan of Care (Adult) Goals set using eye-level conversation with patient. Goals: 1.) Patient will rate pain <3/10. 2.) Patient will be able to have regular bowel movements prior to discharge. 3.) Patient demonstrates proper technique of using IS 4.) Patient will maintain skin integrity 5.) Patient will be without falls Interventions: 1.) Assess pain every 3 hours and PRN offer and administer medication as needed 2.) Provide patient with bowel care medications and encourage PO fluids and mobility to pre vent constipation 3.) Reinforce use of IS/CDB and importance of pulmonary activities 4.) Encourage patient to mobilize as much as possible by encouraging moving in bed, turning Q 2 hrs and preventing patient from lying on tubes. 5.) Bed in low position with brakes locked, side rails x2, room near station, call light in reach, clutter free environment with needed personal items in reach Interventions that worked/didn't work: Continue with above interventions My recommendations forward: Encourage ADLs, AROM Patient Stability:Moderately Stable ish Farmer - 06/2013 4:27 AM PDT Nursing Handoff Report Primary focus of stay: PANNICULECTOMY (GEN) - REMOVAL OF FATTY TUMOR PANNUS -48yom who is undergoing a panniculectomy. Due to his severe obesity, his penis is not visi ble, and therefore we were consulted for intraoperative urethral catheterization for his ope ration. Pertinent physical findings: VSS -Neuro: A&Ox4 -Resp: 1L NC SpO2 mid 90s RR 16-18 hx KARELY CPAP -Cardiac: BP 128/73 - 148/82 HR: 55 - 71 -GI: Hypo BT tones, abd horizontal dressing reinforced with abd pads. -: 16fr chau -Skin: intact, q2t -MIVF LR 100ml PIVx1 Orders to follow up on: Am labs Last pain assessment/reassessment: 629- denies pain Psych/social issues: Last patient visit (i.e. Falls/Activity/Comfort/Environment/Toileting/Skin): Bedrest, calls appropriately, chau, skin intact horizontal midline incision Anticipated or pending procedures: lan of Care - Nish Wood - 04/11/2013 10:19 PM PDT Problem: General Plan of Care (Adult) Intervention: NPEOC Acute Problem: General Plan of Care (Adult) Intervention: NPEOC Acute Problem: General Plan of Care (Adult) Intervention: NPEOC Acute Problem: General Plan of Care (Adult) Goals set using eye-level conversation with patient. Goals: 1.) Patient will rate pain <3/10. 2.) Patient will be able to have regular bowel movements prior to discharge. 3.) Patient demonstrates proper technique of using IS 4.) Patient will maintain skin integrity 5.) Patient will be without falls Interventions: 1.) Assess pain every 3 hours and PRN offer and administer medication as needed 2.) Provide patient with bowel care medications and encourage PO fluids and mobility to pre vent constipation 3.) Reinforce use of IS/CDB and importance of pulmonary activities 4.) Encourage patient to mobilize as much as possible by encouraging moving in bed, turning Q 2 hrs and preventing patient from lying on tubes. 5.) Bed in low position with brakes locked, side rails x2, room near station, call light in reach, clutter free environment with needed personal items in reach valuation - Phoenix Chandra RN - 04/11/2013 7:33 PM PDTProblem: General Plan of Care (Adult) Intervention: NPEOC Acute Goals: 1.) Maintain O2 saturation above 92% Promote pulmonary hygiene. 2.) Pt will use IS q1hr x10per hr. 3.) Prevent wound site infection Interventions: 1.) Monitor pt O2 saturation, evaluate need for increase or decrease in supplemental O2. En courage coughing and deep breathing techniques. Maintain continuous pulse oxygen sensor. 2.) Educate pt concerning risk factors for pulmonary infection and the benefit of IS use. I nstruct pt to use IS q1x10, with return demonstration. 3.) Monitor for signs of sepsis, reinforce dressing changes until wound care orders. Interventions that worked/didn't work: Continue with above interventions My recommendations forward: Encourage ADLs, AROm Patient Stability:Moderately Stable lan of Care - Phoenix meraz RN - 04/11/2013 7:09 PM PDTProblem: General Plan of Care (Adult) Intervention: NPEOC Acute Goals: 1.) Maintain O2 saturation above 92% Promote pulmonary hygiene. 2.) Pt will use IS q1hr x10per hr. 3.) Prevent wound site infection Interventions: 1.) Monitor pt O2 saturation, evaluate need for increase or decrease in supplemental O2. En courage coughing and deep breathing techniques. Maintain continuous pulse oxygen sensor. 2.) Educate pt concerning risk factors for pulmonary infection and the benefit of IS use. I nstruct pt to use IS q1x10, with return demonstration. 3.) Monitor for signs of sepsis, reinforce dressing changes until wound care orders. Electr onically signed by Phoenix Chandra RN at 04/11/2013 7:10 PM PDTHandoff - Phoenix Chandra RN - 04/11/2013 6:58 PM PDTNursing Handoff Report Primary focus of stay: PANNICULECTOMY (GEN) - REMOVAL OF FATTY TUMOR PANNUS -48yom who is undergoing a panniculectomy. Due to his severe obesity, his penis is not visi ble, and therefore we were consulted for intraoperative urethral catheterization for his ope ration. Pertinent physical findings: VSS -Neuro: A&Ox4 -Resp: 1L NC SpO2 mid 90s RR 16-18 hx KARELY CPAP -Cardiac: BP 128/73 - 148/82 HR: 55 - 71 -GI: Absent bowel tones, abd horizontal dressing reinforced with abd pads. -: 16fr chau output 300ml -Skin: intact, q2t -MIVF LR 100ml PIVx1 Orders to follow up on: Am labs Last pain assessment/reassessment: 1900 denies pain Psych/social issues: Last patient visit (i.e. Falls/Activity/Comfort/Environment/Toileting/Skin): Bedrest, calls appropriately, chau, skin intact horizontal midline incision Anticipated or pending procedures: andoff - Ana Jaime RN - 04/11/2013 1:44 PM PDTMeets Phase I Discharge Criteria (Stable For Transfer): yes Major deviations/events or pertinent findings of juanito-operative stay: None. VSS. On L NC, a ttempted to wean to RA, O2 sat 93%. History of KARELY, has home CPAP but has not required in [facility]. Pain 1-04/14 after 1mg IV Dilaudid, 50mcg IV Fentanyl and 1gm IV Tylenol. Pt declines fur ther medication at this time and states he will notify RN if he wants PRN meds. Denies nause a, tolerating ice chips without difficulty. Pt has horizontal panus incision with ABD dressi ngs and medipor tape, no drainage noted at this time. Chau placed by urology. CBG 146 Post op, 177 at 1545. Anticipated post-op needs/devices/follow up: Routine orders Post-Op Diagnosis Codes: * Localized adiposity [278.1] * Fatty tumor [214.9] Surgical Procedure Planned - Actual Procedure Performed: Procedure(s) with comments: PANNICULECTOMY (GEN) - REMOVAL OF FATTY TUMOR PANNUS specimen x 1 Anesthesia: General Length of procedure: In Room/Out of Room: 3 Hr 19 Min 36 Sec Surgeon(s) and Role: * Harpreet Fenton MD - Primary * Zachary Barr MD - Assisting OR positioning comments: supine Neuro: POSS Sedation Level: Awake & Alert Last pain medication given: Hydromorphone push (mg): 0.5 mg (04/11/13 1330) Pain medication totals: 1mg IV Dilaudid, 50mcg IV Fentanyl and 1g IV Tylenol. Additional pain medication information: see above Functional Epidural: N/A GEOTHERMAL OPERATIONS ENGINEER: N/A Respiratory: RR: 13 , O2 Sat: 98 %, O2 Delivery: Nasal cannula Breath Sounds: JIMMY: clear LLL: diminished RUL: clear RLL: diminished KARELY Yes Comment: pt has history of KARELY and has home CPAP. Not used in PACU as no episodes of apnea noted. Cardiac: BP: 141/75 mmHg HR: 67 GI: Nausea/Vomiting Status: No Signs/Symptoms: Interventions: Assessment: Comments: brii : Last void: вИан Contact Name: Milady Contact Number: [phone] Family contacted: Yes Comment:at bedside previously Belongings: CPAP and 1 bag of belongings with pt documented in this enc ounter Plan of [...] | + +--------+ + + + | HEMOGLOBIN-BLAYNE POC | Routin | 04/11/2013 | Morbid obesity | Results for this | | | e | 10:41 AM | (HCC) | procedure are in the | | | | PDT | | results section. | + +--------+ + + + | SODIUM POC | Routin | 04/11/2013 | Morbid [...] + | [facility] | [address] | [place], [place] | | | BRI[facility]NA CON[facility]LLY OF [place] | [address] | [address] | | | TESTS | | | [...] | [facility] | [address] | [place], [place] | | | [facility] POINT OF CARE | [address] | [address] | | | TESTS | | | [...] | [facility] | [address] | [place], [place] | | | B[facility]NA CON[facility]LLY OF CARE | [address] | [address] | | | TESTS | | | [...] (H) | 60 - 99 mg/dL | [facility] - | | | GLUCOSE, | [...] + | [facility] | [address] | [place], [place] | | | B[facility] [place] | [address] | [address] | | | TESTS | | | [...] | [facility] | [address] | [place], [place] | | | B[facility]NA CON[facility]LLY OF CARE | [address] | [address] | | | TESTS | | | [...] | [facility] | [address] | [place], [place] | | | [facility] CON[facility] OF CARE | [address] | [address] | | | TESTS | | | [...] + | [facility] | [address] | [place], [place] | | | [facility] [place] | [address] | [address] | | | TESTS | | | [...] | [facility] | [address] | [place], [place] | | | [facility]NA CON[facility] OF CARE | [address] | [address] | | | TESTS | | | [...] | [facility] | [address] | [place], [place] | | | [facility] POINT OF CARE | [address] | [address] | | | TESTS | | | [...] (H) | 60 - 99 mg/dL | [facility] - | | | GLUCOSE, | [...] + | [facility] | [address] | [place], [place] | | | [facility] [place] | [address] | [address] | | | TESTS | | | [...] | [facility] | [address] | [place], [place] | | | [facility]NA [facility] OF CARE | [address] | [address] | | | TESTS | | | [...] + + + + + | [facility] | [address] | [place], [place] | | | [place] [facility]INT OF [facility]ARE | [address] | [address] | | | TESTS | | | | + + + + + CBC (04/12/2013 4:48 AM PDT) + + + + + + | Component | Value | Ref Range | Performed | Pathologist | | | | | At | Signature | + + + + + + | WBC COUNT | 9.0 | 4.4 - 11.0 K/cu | [facility] | | | | | mm | [...] | + + + + + | [facility] | [address] | [place] [address] | | | SERVICES, CORE | PARK [...] 2.5 mg/dL | [facility] | | | [facility] | | | LABORATORY | | | | | | [place], | | | | | | CORE | | + +---------+ + + + + + | Specimen | + + | Blood - Blood | + + + + + + + | Performing | Address | City/State/Zipcode | Phone Number | | Organization | | | | + + + + + | [facility] | [address] | [place] [address] | | | SERVICES, CORE | TJ [...] | | | LABORATORY | | | [place] | | | SERVICES, | | | [...] | + + + + + | [facility] | [address] | [place] [address] | | | SERVICES, DAVEY | TJ [...] (H) | 60 - 99 mg/dL | [facility] - | | | GLUCOSE, | [...] | [facility] | [address] | [place], [place] | | | [facility] [place] | [facility] | [address] | | | TESTS | | | [...] + | [facility] | [address] | [place], [place] | | | [facility] [place] | [address] | [address] | | | TESTS | | | [...] + + + + | [facility] | [address] | [place], [place] | | | B[facility]NA [facility] [place] | [facility] | [address] | | | TESTS | | | [...] (H) | 60 - 99 mg/dL | [facility] - | | | GLUCOSE, | [...] | [facility] | [address] | [place], [place] | | | B[facility] [place] | [address] | [address] | | | TESTS | | | [...] + | [facility] | [address] | [place], [place] | | | [facility] [place] | [address] | [address] | | | TESTS | | | [...] | [facility] | [address] | [place], [place] | | | [facility] POINT OF CARE | [facility] | [address] | | | TESTS | | | [...] + | [facility] | [address] | [place], [place] | | | [facility] POINT OF CARE | [address] | [address] | | | TESTS | | | [...] + + + | [facility] | [address] | [place], [place] | | | [facility] POINT OF [facility] | [address] | [address] | | | TESTS | | | | + + + + + SHANON (MANUEL)MIKI (04/11/2013 12:09 PM PDT) + +-------+ + [...] | [facility] | [address] | [place], [place] | | | [facility] POINT OF CARE | [address] | [address] | | | TESTS | | | [...] + | [facility] | [address] | [place], [place] | | | [facility] POINT [facility] CARE | [address] | [address] | | | TESTS | | | [...] + | [facility] | [address] | [place], [place] | | | [facility] POINT [facility] CARE | [address] | [address] | | | TESTS | | | [...] | [facility] | [address] | [place], [place] | | | [facility] CARE | [address] | [address] | | | TESTS | | | [...] | [facility] | [address] | [place], [place] | | | B[facility] [place] | [address] | [address] | | | TESTS | | | [...] | | | | | mmol/L | [facility] | | | | | | BRIANNA [...] + | [facility] | [address] | [place], [place] | | | [facility] [place] | [facility] | [address] | | | TESTS | | | [...] | [facility] | [address] | [place], [place] | | | [place], POINT OF CARE | [address] | [address] | | | TESTS | | | | + + + + + GLUCOSE (ART), POC SOR (04/11/2013 11:21 AM PDT) + +---------+ + + + | Component | Value | Ref Range | Performed | Pathologist | | | | | At | Signature | + +---------+ + + + | GLUCOSE, | 241 (H) | 60 - 99 mg/dL | [facility] - | | | POC | | [...] | [facility] | [address] | [place], [place] | | | B[facility]NA CONNOLLY OF CARE | [facility] | [address] | | | TESTS | | | [...] + | [facility] | [address] | [place], [place] | | | [facility] POINT OF CARE | [address] | [address] | | | TESTS | | | [...] | [facility] | [address] | [place], [place] | | | [facility]NA CONNOLLY OF CARE | [facility] | [address] | | | TESTS | | | [...] | [facility] | [address] | [place], [place] | | | B[facility]NA CON[facility] [place] | [facility] | [address] | | | TESTS | | | [...] + | [facility] | [address] | [place], [place] | | | [facility] POINT OF [facility] | [facility] | [address] | | | TESTS | | | | + + + + + YUMI (ART)MIKI (04/11/2013 10:41 AM PDT) + +-------+ + [...] | [facility] | [address] | [place], [place] | | | [place], POINT OF CARE | [address] | [address] | | | TESTS | | | [...] + | [facility] | [address] | [place], [place] | | | B[facility]NA CONNOLLY OF CARE | [address] | [address] | | | TESTS | | | [...] + | [facility] | [address] | [place], [place] | | | [facility] POINT OF CARE | [address] | [address] | | | TESTS | | | [...] | [facility] | [address] | [place], [place] | | | [facility] POINT OF CARE | [address] | [address] | | | TESTS | | | [...] | | | POC | | | [facility] | | | | | | BRIANNA [...] | [facility] | [address] | [place], [place] | | | [facility] POINT OF CARE | [address] | [address] | | | TESTS | | | | + + + + + CALCIUM (ART), POC SOR (04/11/2013 10:41 AM PDT) [...] + | [facility] | [address] | [place], [place] | | | BRI[facility]NA CONNOLLY OF CARE | [address] | [address] | | | TESTS | | | [...] | [facility] | [address] | [place], [place] | | | [facility] POINT OF CARE | [facility] | [address] | | | TESTS | | | [...] | [facility] | [address] | [place], [place] | | | B[facility]NA CON[facility] | [address] | [address] | | | TESTS | | | [...] + | [facility] | [address] | [place], [place] | | | BRI[facility]NA CONNOLLY OF [facility] | [facility] | [address] | | | TESTS | | | [...] gross | | | | | | lesions.Field Liability Generalist | | | | | | sections [...] Smart | | | | | | MaggiePathologistMinervai | | | | | | janene [...] | + + + + + | [facility] | [address] | [place] [address] | | | PATHOLOGY | [address] [...] + +---------+ + +------+------+ | acetaminophen (aka MINDAIRMEV) IV | New Bag | 04/11/20 | [...] famotidine (aka PEPCID) tablet | Given | 04/14/20 | 20 mg [...]
--- OUTSIDE RECORDS SUMMARY | ~2020-08-05 | XMS | Encounter Summary ---
Demographics + + + | Address | [address] | | | [place] [address] | + + + | Home Phone [...] + | Tico Burns | ECON | [address] | | | | | [place], [place] | | | | | [address] | | + + + + + Care Team Providers + +------+ + | Care It Teacher Name | Role | Phone | [...] | | | | | | | [facility] | | | | | | | for Health | | | | | | | and Healing, | | | | | | | Building [address] | | | | | | | [place], [place] | | | | | | | [address] | | | | | | | Phone: | | | | | | | [phone] | | | | | | | Fax: | | | | | | | [phone] | +--------+--------+ + + + + Encounter Details +--------+---------+ + + + | Date | Type | Department | Care Team | Description | +--------+---------+ + + + | 04/10/ | Office | Digestive Health | Jesus Fenton, | Panniculitis | | 2012 | Visit | Center at [facility] [address] | [address] | (Primary Dx) | | | | [address] [facility] | [address] | | | | | for Health and | [place], [place] | | | | | [facility] 2 | [address] | | | | | [place], [place] | [phone] | | | | | [address] | | | | | | [phone] | | | +--------+---------+ + + + [...] - 04/10/2013 12:26 PM PDTPATIENT SURGERY INFORMATION [facility] General Surgery Office Toll-free: ext [phone] Surgery Date: April 11, 2013 Procedure: Removal [...] from anyone by 7 pm please call [phone]. PARKING Parking for patients is available underneath the [facility] building. Parking is also available in the [facility] Parking structure located across from the emergency depart ment; patient parking available on level 1 and 3. Metered parking is available on the top [facility]. CHECKING IN FOR SURGERY Hospital Admission (in-patient): Admitting Desk 9th floor of [facility] TRANSPORTATION Day Surgery: If you have [...] Please notify the general surgery office at [phone] as soon as possible should you nee [...] prior to your surgery. PRODUCTS CONTAINING ASPIRIN Leydi-[place], Anacin, Anexsia with Codeine, Andynos, Aspirin, Aspirin suppositories, Ascrip tin, Aspergum, Axotal, B-A-C, Baby Aspirin, Bekah, BC Powder, Bexophene, Buffaprin, Bufferin , Buffinol, Cama-Arthritis Strength, Congespirin, [place], Coricidin, Damason, Darvon, Dristan, Terra-Gesic, Digel, Dolprin #3 Tablets, Donatab, Doxaphene, Duragesic, Easprin, Ecotrin, Emag rin Forte, Emiprin, Emprazil, Equagesic, Equazine M, Excedrin, Fiogesic, Fiorgen PH, Fiorice t, Fiorinal, 4-Way Cold Tablet Gemnisyn, Indocin, Liquprin, Lortab ASA, Magnaprin, Marnal, Meprobamate, Midol, Momentum, N orgesic, [place], Orphengesic, Pabalate, P-A-C, Percodan, Presalin, Robaxasil, Roxiprin, Sabino eto, Salocol SK-65 Compound, Sine-Aid, Sine-Off,, [place], Supac, Talwin Compound, Trigesic, Tolectin , Traiminicin, Vanquish, ZORprin, Zomax PRODUCTS CONTAINING IBUPROFEN Advil, Aleve, Haltran, Medipren, Midol, Motrin, Naproxyn, Nuprin, Rufen OTHER PRODUCTS WHICH MAY PROMOTE BLEEDING Vitamin E, Gingko Biloba, Marine Fatty Acids, [place]-3 Fish Oil SupplementsElectronically si gned by [place] [...] and plan of care. JESUS FENTON MD [facility] [address] Mailcode: [place] [id number] Maurice Duran M D - 04/10/2013 12:08 PM PDT [facility] NOTE Date: 04/10/13 Author: Maurice [...] (patient's penis is burried in the growth) -[facility] clinic this afternoon Maurice Vang MD Plastic Surgery [address] Surgery Service documented in this e ncounter Miscellaneous Notes Scan - Chelsey, Faculty - 04/10/2013 6:38 PM PDTElectronically signed by Faculty Other at 6:38 PM PDTdocumented in this encounter Plan of Treatment Not on filedocumented as of this encounter Visit Diagnoses + + | Diagnosis | + + | Panniculitis - Primary Panniculitis, unspecified site | + + documented in this encounter
--- OUTSIDE RECORDS SUMMARY | ~2020-08-05 | XMS | Encounter Summary ---
Demographics + + + | Address | [address] [facility] | | | [place] [address] | + + + | Home Phone [...] + | Tico Burns | ECON | [address] | | | | | [place], [place] | | | | | [address] | | + + + + + Care Team Providers + +------+ + | Care Distribution Engineering Technologist Name | Role | Phone | + +------+ + | Moe Bella MD | PCP | | + +------+ + Reason for Visit + + + | Reason | Comments | + + + | History and physical | | | examination | | + + + Office Visit [...] | | | | (HCC) Type | [place] [address] | | | | | II or | [address] | Center for | | | | | unspecified | [place], | Health and | | | | | type | [place] [address] | Healing, | | | | | diabetes | Phone: | Building 2 | | | | | mellitus | [phone] | [place], [place] | | | | | without | Fax: | [address] | | | | | mention of | [phone] | Phone: | | | | | complication | | [phone] | | | | | , not stated | | Fax: | | | | | as | | [phone] | | | | | uncontrolled | | | +--------+--------+ + + + + Encounter Details +--------+---------+ + + + | Date | Type | Department | Care Team | Description | +--------+---------+ + + + | 12/26/ | Office | Digestive Health | Jesus Perez, | Morbid obesity (HCC) | | 2012 | Visit | Center at [facility] [address] | [address] | (Primary Dx); BMI | | | | [facility] | [address] | 70 and over, adult | | | | for Health and | [place], [place] | ([facility]); DM (diabetes | | | | [facility], [facility] 2 | [address] | mellitus) ([facility]); | | | | [place], [place] | [phone] | Hypertension; | | | | [address] | | Hyperlipidemia | | | | [phone] | | | +--------+---------+ + + + [...] + + + | Blood Pressure | 128/77 | 12/26/2012 10:59 AM | | | | | PST | | + + + + + | Pulse | 81 | 12/26/2012 10:59 AM | | | | | PST | | + + + + + | Temperature | 36.4 C (97.6 F) | 12/26/2012 10:59 AM | | | | | PST | | + + + + + | Respiratory Rate | 16 | 12/26/2012 10:59 AM | | | | | PST | | + + + + + | Oxygen Saturation | - | - | | + + + + + | Inhaled Oxygen | - | - | | | Concentration | | | | + + + + + | Weight | 244.8 kg (539 lb | 12/26/2012 10:59 AM | | | | 11.2 oz) | PST | | + + + + + | Height | 175.3 cm (5' 9") | 12/26/2012 10:59 AM | | | | | PST | | + + + + + | Body Mass Index | 79.7 | 12/26/2012 10:59 AM | | | | | PST | | + + + + + documented in this encounter Patient Instructions Patient Instructions Jesus Perez MD - 12/26/2012 11:18 AM PSTPATIENT SURGERY [facility] Office Toll-free: ext [phone] Surgery Date:01/08/13 Procedure:possible duodenal Surgeon Name:Chris DIRECTIONS FOR SURGERY DIET Nothing to eat [...] you are taking, please contact our office. Ursodiol/ Actigall 6 months post op for band, bypass and sleeve if gallbladder in place. Omeprazole/ Prilosec/ Zantac (PPI) 3 months post op bypass and sleeve only, if taking an ac id operations associate, you may continue on same medication. PRE-OP BATHING/SHOWERING - David Cloth/ 2% chlorhexidine Directions for Bathing the Night before Surgery DO NOT SHAVE any part of your body the day before or the day of surgery. Do NOT let the cloths touch your eyes, ears, or mouth. Do NOT use on open wounds or sores. Do NOT rinse. After using the cloths let your skin air dry. Do NOT put on any lotions, moisturizers or makeup after using the cloths. Using the Cloths Shower and wash your hair before using the cloths. Make sure your skin is DRY! There are 3 red packs of cloths with 2 cloths in each pack = 6 cloths total. SMOKING You should not smoke for four [...] will contact you with your check in time the afternoon before surgery. If you do not hear from anyone by 4:30 PM please call the General Surgery Office at [phone] for [facility] k-in-time. PARKING Parking for patients and visitors is available in the [facility] Parking structure located across from the emergency department. Patient parking is available on level 1 and 3. Mete red parking is available on the top level. CHECKING IN FOR SURGERY For Hospital Admission (in-patient) you will check in on the day of surgery at the Admittin g Department located on the 9th floor of [facility] TRANSPORTATION You will require transportation home on the day of discharge. Pain medications and physica l activity restrictions may limit your ability to drive safely. CANCELLING YOUR PROCEDURE Please notify the general surgery office at [phone] as soon as possible should you nee d to cancel or change your surgery date. We will attempt to reschedule your procedure in a timely manner however due to a limited amount of operating room time a waiting list is not u ncommon. ILLNESS Please call our office with any signs of illness such as cold, flu, infection, fever, or sk in rash/infection anytime prior to your surgery. PRODUCTS CONTAINING ASPIRIN Leydi-[place], Anacin, Anexsia with Codeine, Andynos, Aspirin, Aspirin suppositories, Ascrip tin, Aspergum, Axotal, B-A-C, Baby Aspirin, Bekah, BC Powder, Bexophene, Buffaprin, Bufferin , Buffinol, Cama-Arthritis Strength, Congespirin, [place], Coricidin, Damason, Darvon, Dristan, Terra-Gesic, Digel, Dolprin #3 Tablets, Donatab, Doxaphene, Duragesic, Easprin, Ecotrin, Emag rin Forte, Emiprin, Emprazil, Equagesic, Equazine M, Excedrin, Fiogesic, Fiorgen PH, Fiorice t, Fiorinal, 4-Way Cold Tablet Gemnisyn, Indocin, Liquprin, Lortab ASA, Magnaprin, Marnal, Meprobamate, Midol, Momentum, N orgesic, [place], Orphengesic, Pabalate, P-A-C, Percodan, Presalin, Robaxasil, Roxiprin, Sabino eto, Salocol SK-65 Compound, Sine-Aid, Sine-Off,, Butts, Supac, Talwin Compound, Trigesic, Tolectin , Traiminicin, Vanquish, ZORprin, Zomax PRODUCTS CONTAINING IBUPROFEN Advil, Aleve, Haltran, Medipren, Midol, Motrin, Naproxyn, Nuprin, Rufen OTHER PRODUCTS WHICH MAY PROMOTE BLEEDING Vitamin E, Gingko Biloba, Marine Fatty Acids, [place]-3 Fish Oil Supplements documented in this encounter Progress Notes Jesus Perez MD - 12/31/2012 10:07 AM PSTPt seen in clinic today for pre op consent a nd to see anesthesia. Because of potential difficulties in catheterizing the urinary bladde r his surgery for tomorrow was cancelled and he was sent to urology clinic for an evaluation . He was seen by Dr. Yahaira Doran who believes catheterization can be done. He has been r escheduled for 08 January. I explained the risks of bariatric surgery to him and his both of whom are aware of these risks. They wish to proceed with surgery. Est patient 15 min counselling. Pt should receive sleeve gastrectomy this would be the si mplest procedure for the patient. documented in this encounter Miscellaneous Notes Libby - Usman Barbosa - 12/27/2012 6:30 PM PSTElectronically signed by Faculty Chelsey at 6:30 PM PSTdocumented in this encounter Plan of Treatment Not on filedocumented as of this encounter Visit Diagnoses + + | Diagnosis | + + | Morbid obesity ([facility]) - Primary Morbid obesity | + + | BMI 70 and over, adult ([facility]) Body Mass Index 70 and over, adult | + + | DM (diabetes mellitus) ([facility]) Type II or unspecified type diabetes mellitus without | | mention of complication, not stated as uncontrolled | + + | Hypertension Unspecified essential hypertension | + + | Hyperlipidemia Other and unspecified hyperlipidemia | + + documented in this encounter
--- OUTSIDE RECORDS SUMMARY | ~2020-08-05 | XMS | Encounter Summary ---
Demographics + + + | Address | [address] [facility] [address] | | | [place] [address] | + + + | Home Phone [...] + | Tico Burns | ECON | [address] | | | | | [place], [place] | | | | | [address] | | + + + + + Care Team Providers + +------+ + | Care Varnish Maker Name | Role | Phone | + +------+ + | Moe Bella MD | PCP | | + +------+ + Encounter Details +--------+ + + + + | Date | Type | Department | Care Team | Description | +--------+ + + + + | 08/19/ | Abstract | Digestive Health | Violetta Byers, | | | 2011 | | Center at [place] [address] | PIANO ACCOMPANIST [address] | | | | | [address] [place] | [facility] [address] | | | | | for Health and | [place], [place] | | | | | [place] [address] | [address] | | | | | [place], [place] | [phone] | | | | | [address] | | | | | | [phone] | | | +--------+ + + + [...]
--- OUTSIDE RECORDS SUMMARY | ~2020-08-05 | XMS | Encounter Summary ---
Demographics + + + | Address | [address] [facility] | | | [place] [address] | + + + | Home Phone [...] + | Tico Burns | ECON | [address] | | | | | [place], [place] | | | | | [address] | | + + + + + Care Team Providers + +------+ + | Care Sql Data Architect Name | Role | Phone | + +------+ + | Moe Bella MD | PCP | | + +------+ + Encounter Details +--------+ + + + + | Date | Type | Department | Care Team | Description | +--------+ + + + + | 10/11/ | Abstract | Digestive Health | Violetta Byers, | | | 2011 | | Center at [facility] [address] | CYCLE LIAISON [address] | | | | | [address] [place] | [facility] 350 | | | | | for Health and | [place], [place] | | | | | [place] [address] | [address] | | | | | [place], [place] | [phone] | | | | | [address] | | | | | | [phone] | | | +--------+ + + + [...]
--- OUTSIDE RECORDS SUMMARY | ~2020-08-05 | XMS | Encounter Summary ---
Demographics + + + | Address | [address] | | | [place] [address] | + + + | Home Phone | | + + + | Preferred Language | Unknown | + + + | Marital Status | | + + + | Mormonism Affiliation | CHR | + + + [...] + | Tico Burns | ECON | [address] | | | | | [place], [place] | | | | | [address] | | + + + + + Care Team Providers + +------+ + | Care Six Sigma Project Manager Name | Role | Phone [...] | 12/26/ | Office | Urology at [facility] | Yahaira Doran MD | Morbid obesity (HCC) | | 2012 | Visit | [address] | | (Primary Dx); | | | | [place] [facility] | | Nephrolithiasis | | | | and Healing, | | | | | | Building 1, | | | | | | Floor [place], [place] | | | | | | [address] | | | | | | [phone] | | | +--------+---------+ + + + [...] N/A Years of Education: N/A 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 1. Sleeve gastrectomy with Dr. Perez 01/09/12 2. Intraoperative Oates catheter placement +/- cystoscopic guidance by Urology - JOCELYNE douglas, consent obtained Yahaira Doran MD Clinical Instructor Department of Urology [facility] Pager: [phone] documented in this enc ounter Procedure Notes Other, Faculty - 12/26/2012 6:39 PM PSTAssociated Order(s): PROCEDURE NOTEElectronically s igned by Faculty Other at 12/26/2012 6:39 PM PSTdocumented in this encounter Miscellaneous Notes Scan - Other, Faculty - 01/15/2013 12:51 PM PDTElectronically signed by Faculty Other at 12:51 PM PDTdocumented in this encounter Plan of [...]
--- OUTSIDE RECORDS SUMMARY | ~2020-08-05 | XMS | Encounter Summary ---
Demographics + + + | Address | [address] [facility] | | | [place] [address] | + + + | Home Phone | | + + + | Preferred Language | Unknown | + + + | Marital Status | | + + + | Rastafari Affiliation | CHR | + + + | Race | White | + + + | Ethnic Group | Not or | + + + Author + + + | Author | [facility] | + + + | Organization | [facility] | + + + | Address | Unknown | + + + | Phone | Unavailable | + + + Support + + + + + | Name | Relationship | Address | Phone | + + + + + | Tico Burns | ECON | [address] | | | | | [place], [place] | | | | | [address] | | + + + + + Care Team Providers + +------+ + | Care Under Water Assistant Name | Role | Phone | [...] | | | | | | [facility] | | | | | | | for Health | | | | | | | and Healing, | | | | | | | Building [address] | | | | | | | [place], [place] | | | | | | | [address] | | | | | | | Phone: | | | | | | | [phone] | | | | | | | Fax: | | | | | | | [phone] | +--------+--------+ + + + + Encounter Details +--------+---------+ + + + | Date | Type | Department | Care Team | Description | +--------+---------+ + + + | 09/04/ | Office | Digestive Health | Jesus Perez, | Status post | | 2012 | Visit | Center at [facility] [address] | [address] [facility] | bariatric surgery | | | | [address] [facility] | [address] | (Primary Dx) | | | | for Health and | [place], [place] | | | | | Healing, Building 2 | [address] | | | | | [place], [place] | [phone] | | | | | [address] | | | | | | [phone] | | | +--------+---------+ + + + [...] Jesus Perez MD - 09/09/2013 4:27 PM JOANN have reviewed and verified the scribed not [...] will be having a lab draw in [place] in the next few weeks. WEIGHT ONLY [...]
--- OUTSIDE RECORDS SUMMARY | ~2020-08-05 | XMS | Encounter Summary ---
Demographics + + + | Address | [address] [facility] | | | [place] [address] | + + + | Home Phone [...] + | Tico Burns | ECON | [address] | | | | | [place], [place] | | | | | [address] | | + + + + + Care Team Providers + +------+ + | Care Fence Maker Name | Role | Phone | + +------+ + | Moe Bella MD | PCP | | + +------+ + Encounter Details +--------+ + + + + | Date | Type | Department | Care Team | Description | +--------+ + + + + | 09/12/ | Abstract | Digestive Health | Jesus Perez, | | | 2012 | | [place] [address] [address] | [address] [facility] | | | | | [facility] | [facility] | | | | | for Health and | [place], [place] | | | | | [facility] [place] [address] | [address] | | | | | [place], [place] | [phone] | | | | | [address] | | | | | | [phone] | | | +--------+ + + + [...]
--- OUTSIDE RECORDS SUMMARY | ~2020-08-05 | XMS | Encounter Summary ---
Demographics + + + | Address | [address] [facility] | | | [place] [address] | + + + | Home Phone [...] + | Tico Burns | ECON | [address] | | | | | [place], [place] | | | | | [address] | | + + + + + Care Team Providers + +------+ + | Care Berry Planter Name | Role | Phone | + [...] | 2012 | Referral | Services at [facility] | [address] | | | | Order | [address] [facility] | [address] [place], | | | | | Claudette Wright [facility] | [place] [address] | | | | | [facility], 10th Floor | [phone] | | | | | [place], [place] | | | | | | [address] | | | | | | [phone] | | | +--------+ + + + [...] | | + +---------+ + + | [facility] DEPARTMENT OF | | | | [...]
--- OUTSIDE RECORDS SUMMARY | ~2020-08-05 | XMS | Encounter Summary ---
Demographics + + + | Address | [address] [facility] | | | [place] [address] | + + + | Home Phone [...] + | Tico Burns | ECON | [address] | | | | | [place], [place] | | | | | [address] | | + + + + + Care Team Providers + +------+ + | Care It Security Consultant Name | Role | Phone [...] | | | | (HCC) Type | [place] [address] | | | | | II or | [address] | Center for | | | | | unspecified | [place], | Health and | | | | | type | [place] [address] | Healing, | | | | | diabetes | Phone: | [address] 2 | | | | | mellitus | [phone] | [place], [place] | | | | | without | Fax: | [address] | | | | | mention of | [phone] | Phone: | | | | | complication | | [phone] | | | | | , not stated | | Fax: | | | | | as | | [phone] | | | | | uncontrolled | | | +--------+--------+ + + + + Encounter Details +--------+---------+ + + + | Date | Type | Department | Care Team | Description | +--------+---------+ + + + | 01/30/ | Office | Digestive Health | Kristine Diaz, | DM (diabetes | | 2013 | Visit | Center at [facility] [address] | [address] | mellitus) ([facility]) | | | | [facility] | [address] | (Primary Dx); BMI 70 | | | | for Health and | [place], [place] | and over, adult | | | | [facility] 2 | [address] | ([facility]) | | | | [place], [place] | | | | | | [address] | | | | | | [phone] | | | +--------+---------+ + + + [...] Follow-Up Patient referred by: Moe Bella MD [facility] [address] [place] [address] Documented time of visit: 8:30-8:51 (21 minutes [...] units to 4-10 units w/ meals. Sees roof fitter in about a month to recheck labs. [...] mellitus 2005 Thyroid disease 2010 Cancer 2010 Food logs: Yes Food choices: Slimfast, Special [...] [address], [place] Pager [phone] documented in this en counter Plan of Treatment Not on filedocumented as of this encounter Procedures + +--------+ + + + | Procedure Name | Priori | Date/Time | Associated Diagnosis | Comments | | | ty | | | | + +--------+ + + + | [facility] RE-ASSESSM[facility] | Routin | 01/30/2013 | DM (diabetes | | | X15MIN | e | 8:57 AM | mellitus) ([facility]) BMI | | | | | PDT | 70 and over, adult | | | | | | ([facility]) | | + +--------+ + + + documented in this encounter Visit Diagnoses + + | Diagnosis | + + | DM (diabetes mellitus) (HCC) - Primary Type II or unspecified type diabetes mellitus | | without mention of complication, not stated as uncontrolled | + + | BMI 70 and over, adult ([facility]) Body Mass Index 70 and over, adult | + + documented in this encounter
--- OUTSIDE RECORDS SUMMARY | ~2020-08-05 | XMS | Encounter Summary ---
Demographics + + + | Address | [address] [facility] | | | [place] [address] | + + + | Home Phone | | + + + | Preferred Language | Unknown | + + + | Marital Status | | + + + | Worship Affiliation | 1013 | + + + | Race | White | + + + | Ethnic Group | Not or | + + + Author + + + | Author | [facility] | | | and [place] | + + + | Organization | [facility] | | | [...] [place] | | | | | [address] | | + + + + + Care Team Providers + +------+ + | Care Quality Tester Name | Role | Phone | + +------+ + | Moe Bella MD | PCP | | + +------+ + Reason for Visit +--------+--------+ + | Reason | Onset | Comments | | | Date | | +--------+--------+ + | Other | 04/25/ | | | | 2015 | | [...] [address] | | | | | [facility] [address] | [place] [address] | | | | | KENYA [place] | [phone] | | | | | [address] | | | | | | [phone] | | | +--------+ + + + [...] Notes Telephone Encounter - Judith Peres - 04/28/2016 11:36 AM PDTSurgery scheduled 6. Anesthesia consult rescheduled to 05/10/16. Electronically signed by Judith garcia 04/28/2016 11:36 AM PDTTelephone Encounter - Judith Peres - 04/27/2016 10:06 AM PDTS deanna has been approved. Left a voicemail to schedule. elephone Encounter - Marilyn Brothers RN - 04/26/2016 2:4 9 PM PDTCalled and left VM requesting a callback. elephone Encounter - Judith Peres - 04/25/2016 3:10 PM PDTWe will have to postpone Gerard's high risk anesthesia consult until after surgery has bee n approved. Surgery is currently pending. Left a voicemail for Gerard requesting a callback to update him. May 01 consult cancelled until surgery scheduled. documented in this encounter Plan of Treatment Not on filedocumented as of this encounter Visit Diagnoses Not on filedocumented in this encounter"
--- OUTSIDE RECORDS SUMMARY | ~2020-08-05 | XMS | Encounter Summary ---
Demographics + + + | Address | [address] [facility] | | | [place] [address] | + + + | Home Phone | | + + + | Preferred Language | Unknown | + + + | Marital Status | | + + + | Faith Affiliation | 1013 | + + + | Race | White | + + + | Ethnic Group | Not or | + + + Author + + + | Author | [facility] | | | and [place] | + + + | Organization | [facility] | | | [...] [place] | | | | | [address] | | + + + + + Care Team Providers + +------+ + | Care Clock Repair Technician Name | Role | Phone | + +------+ + | Moe Bella MD | PCP | | + +------+ + Encounter Details +--------+ + + + + | Date | Type | Department | Care Team | Description | +--------+ + + + + | 05/10/ | Hospital | [facility] | Chauncey Lee MD | | | 2016 | Encounter | [facility] | [address] | | | | | [address] | [place] [address] | | | | | Jalen KENYA | [phone] | | | | | [address] | | | | | | [phone] | Jeffery Ruiz MD | | | | | | [address] [facility] | | | | | | [place] | | | | | | [address] | | | | | | | [...] | | | 12 | | | [address] UNITS capsule | | | | | [...]
--- OUTSIDE RECORDS SUMMARY | ~2020-08-05 | XMS | Encounter Summary ---
Demographics + + + | Address | [address] [facility] [address] | | | [place] [address] | + + + | Home Phone | | + + + | Preferred Language | Unknown | + + + | Marital Status | | + + + | Confucianist Affiliation | CHR | + + + | Race | White | + + + | Ethnic Group | Not or | + + + Author + + + | Author | [facility] | + + + | Organization | [facility] | + + + | Address | Unknown | + + + | Phone | Unavailable | + + + Support + + + + + | Name | Relationship | Address | Phone | + + + + + | Tico Burns | ECON | [address] | | | | | [place], [place] | | | | | [address] | | + + + + + Care Team Providers + +------+ + | Care Solar Installer Technician Name | Role | Phone | [...] | 2012 | Visit | Center at [facility] [address] | [address] [facility] | examination after | | | | [address] | [address] | gastrointestinal | | | | for Health and | [place], [place] | surgery (Primary Dx) | | | | [facility], [facility] 2 | [address] | | | | | [place], [place] | [phone] | | | | | [address] | | | | | | [phone] | | | +--------+---------+ + + + [...] Harpreet Fenton MD - 05/26/2013 11:52 AM MARKI performed a history and physical examinati on of the patient and discussed his management with the resident. I reviewed the resident s note and agree with the documented findings and plan of care. HARPREET FENTON MD [facility] [address] Mailcode: [place] [address] oSalvatore Elmore MD - 05/15/2013 6:01 AM PDTFormatting of [...]
--- OUTSIDE RECORDS SUMMARY | ~2020-08-05 | XMS | Encounter Summary ---
Demographics + + + | Address | [address] [facility] | | | [place] [address] | + + + | Home Phone [...] | [facility] | | | and [place] [...] [place] | | | | | [address] | | + + + + + Care Team Providers + +------+ + | Care Link Trainer Operator Name | Role | Phone | [...] | | [address] | [facility] | | | | | [place], [place] | [address] [place] [address] [address] | | | | | [address] | [address] | | | | | [phone] | | | +--------+ + + + [...]
--- OUTSIDE RECORDS SUMMARY | ~2020-08-05 | XMS | Encounter Summary ---
Demographics + + + | Address | [address] [facility] | | | [place] [address] | + + + | Home Phone [...] + | Author | [facility] | | | and [place] | + + + | Organization | [facility] | [...] [place] | | | | | [address] | | + + + + + Care Team Providers + +------+ + | Care Technician Chemical Cleaning Name | Role | Phone | + [...] | | [address] | [place] [address] | initial encounter | | | | [place] | [phone] | (HCC) (Primary Dx); | | | | [address] | | S/P cervical spinal | | | | [phone] | | fusion | +--------+---------+ + + [...] in this encounter Progress Notes Mari Hammond, Services Engineer - 03/16/2017 9:23 AM PDTFormatting of this note might orville e different from the original. Chauncey Lee MD [address] [place] [address], [address] [place] [address] FAX: NEUROSURGERY FOLLOW-UP CHIEF COMPLAINT: Chief Complaint [...] Muscle spasms. 90 tablet 3 ergocalciferol (ERGOCALCIFEROL) 88266 UNITS capsule Take 50,000 Units by mouth Once a w [place]. FLUoxetine (PROZAC) 20 mg capsule Take 20 mg by mouth Daily. gabapentin (NEURONTIN) 300 mg capsule Take by mouth. Glucose Blood (TOMAS BREEZE 2 TEST) DISK [...] Primary? Pseudoarthrosis of cervical spine, initial encounter ([facility]) Yes S/P cervical spinal fusion Past Medical History Diagnosis Date Hypertension Cancer ([facility]) thyroid Depression Diabetes ([facility]) Thyroid disease High cholesterol Primary osteoarthritis of [...] proven efficacy and may put him at [facility] for further operation. I increased the patient [...] Lee MD, 03/16/2017 9:34 documented in this encou nter Plan of [...] + | Josh Quinteros Results In - 08/22/2017 1:45 PM PDT [...]
--- OUTSIDE RECORDS SUMMARY | ~2020-08-05 | XMS | Encounter Summary ---
Demographics + + + | Address | [address] [facility] | | | [place] [address] | + + + | Home Phone [...] [place], [place] | | | | | [address] | | + + + + + Care Team Providers + +------+ + | Care Unbundler Name | Role | Phone | + +------+ + | oMe Bella MD | PCP | | + [...] | Documentati | [facility] | Violetta Brown, | Surgical follow-up | | 2013 | on | Center at [address] | HISTORY PROFESSOR [address] | (Bariatric) | | | | [address] | [facility] 350 | | | | | for Health and | [place], [place] | | | | | [facility] 2 | [address] | | | | | [place], [place] | [phone] | | | | | [address] | | | | | | [phone] | | | +--------+ + + + [...] this encounter Miscellaneous Notes Telephone Encounter - Fern Nieto - 07/10/2014 2:33 PM PDT Recall Information ID: [id number] Status: New [10] Patient: LUCY BURNS ALYSA Visit Type: BAR RETURN [5441] Provider/Resource: VIOLETTA BROWN [[id number]] BRENDON REDDY [[id number]] Department: BAR BARIATRIC SURG [facility] [[id number]] BAR BARIATRIC SURG [facility] [[id number]] Notification Date: 07/09/2014 Recall Date: 07/09/2014 Expiration Date Letter: Generating Appointment: 02/27/13 Audit [place]: User: Time: Status: Fern Nieto [PHAMJE] 02/04/2013 11:45 AM New [10] Scheduling Instructions 1 year [facility] follow up 12..2012- 07.09.2014 Appointment Notes 07.09.2014 1 year [facility] postop - dos 3.6.2012 - open sleeve - deveney schedule 12. - 07.09.2014 Communication History User: HEMANTH MOORE Date/time: 03/24/14 11:34 AM Comment: Context: Judi Recall Report Outcome: Left Message Phone number: [phone] Phone Type: Home Phone Comm. type: Telephone Call type: Outgoing Contact: Lucy Burns Relation to patient: Self User: FERN NIETO Date/time: 12/31/13 9:09 AM Comment: pt schedule with deveney 03/19 in Context: Judi Recall Report Phone number: Phone Type: Comm. type: Telephone Call type: Outgoing Contact: Lucy Burns Relation to patient: Self documented in this encounte r Plan of Treatment Not on filedocumented as of this encounter Visit Diagnoses Not on filedocumented in this encounter"
--- OUTSIDE RECORDS SUMMARY | ~2020-08-05 | XMS | Encounter Summary ---
Demographics + + + | Address | [address] [facility] [address] [facility] | | | [place] [address] | + + + | Home Phone [...] + | Tico Burns | ECON | [address] | | | | | [place], [place] | | | | | [address] | | + + + + + Care Team Providers + +------+ + | Care Engineering Writer Name | Role | Phone | [...] | | | | | ([facility]) | [address] | [address] | | | | | Panniculitis | Claudette Wright | [address] | | | | | , | [place], [place] | [place] | | | | | unspecified | [address] | [address] | | | | | site | Phone: | Phone: | | | | | Procedures | [phone] | [phone] | | | | | REQUEST TO | Fax: | Fax: | | | | | SURGERY | | | | | | | GARMENT SORTER | | | | | | | MN EXC SKIN | | | | | [...] | | | | (HCC) Type | [place] [address] | | | | | II or | [address] | Center for | | | | | unspecified | [place], | Health and | | | | | type | [place] [address] | Healing, | | | | | diabetes | Phone: | Building [address] | | | | | mellitus | [phone] | [place], [place] | | | | | without | Fax: | [address] | | | | | mention of | [phone] | Phone: | | | | | complication | | [phone] | | | | | , not stated | | Fax: | | | | | as | | [phone] | | | | | uncontrolled | | | +--------+--------+ + + + + Encounter Details +--------+---------+ + + + | Date | Type | Department | Care Team | Description | +--------+---------+ + + + | 11/21/ | Office | Digestive Health | Jesus Perez, | Morbid obesity (HCC) | | 2013 | Visit | Center at [facility] [address] | MD [address] [facility] | (Primary Dx); | | | | [address] [facility] | [address] | Panniculitis | | | | for Health and | [place], [place] | | | | | [facility], [facility] 2 | [address] | | | | | [place], [place] | [phone] | | | | | [address] | | | | | | [phone] | | | +--------+---------+ + + + [...] AM PSTPREOP INSTRUCTIONS [address] SURGERY INFORMATION [facility] General Surgery Office Toll-free: ext [phone] Surgery [...] please call the General Surgery Office at [phone] for [id number]. PARKING Parking for patients and visitors is available in the [facility] Parking structure located across from the [...] Please notify the general surgery office at [phone] as soon as possible should you nee [...] prior to your surgery. PRODUCTS CONTAINING ASPIRIN Leydi-[place], Anacin, Anexsia with Codeine, Andynos, Aspirin, Aspirin suppositories, Ascrip tin, Aspergum, Axotal, B-A-C, Baby Aspirin, Bekah, BC Powder, Bexophene, Buffaprin, Bufferin , Buffinol, Cama-Arthritis Strength, Congespirin, Star Tannery, Coricidin, Damason, Darvon, Dristan, Terra-Gesic, Digel, Dolprin #3 Tablets, Donatab, Doxaphene, Duragesic, Easprin, Ecotrin, Emag rin Forte, Emiprin, Emprazil, Equagesic, Equazine M, Excedrin, Fiogesic, Fiorgen PH, Fiorice t, Fiorinal, 4-Way Cold Tablet Gemnisyn, Indocin, Liquprin, Lortab ASA, Magnaprin, Marnal, Meprobamate, Midol, Momentum, N orgesic, Noble, Orphengesic, Pabalate, P-A-C, Percodan, Presalin, Robaxasil, Roxiprin, Sabino eto, Salocol SK-65 Compound, Sine-Aid, Sine-Off,, Christian, Supac, Talwin Compound, Trigesic, Tolectin , Traiminicin, Vanquish, ZORprin, Zomax PRODUCTS CONTAINING IBUPROFEN Advil, Aleve, Haltran, Medipren, Midol, Motrin, Naproxyn, Nuprin, Rufen OTHER PRODUCTS WHICH MAY PROMOTE BLEEDING Vitamin E, Gingko Biloba, Marine Fatty Acids, [place]-3 Fish Oil Supplements documented in this encounter [...] kg/(m^2) General: healthy, alert and cooperative HEENT: PERRDIANNA, EOMI Neck: negative. Cardiac: Rate, rhythm, regular, [...] discussion were completed. documented in this encounter Miscellaneous Notes Scan - Chelsey, Faculty - 01/01/2013 10:32 AM PSTElectronically signed by Faculty Other at 10:32 AM PSTdocumented in this encounter Plan of Treatment Not on filedocumented as of this encounter Visit Diagnoses + + | Diagnosis | + + | Morbid obesity (HCC) - Primary Morbid obesity | + + | Panniculitis Panniculitis, unspecified site | + + documented in this encounter
--- OUTSIDE RECORDS SUMMARY | ~2020-08-05 | XMS | Encounter Summary ---
Demographics + + + | Address | [address] [facility] [facility] [facility] | | | [place] [address] | + + + | Home Phone | | + + + | Preferred Language | Unknown | + + + | Marital Status | | + + + | Druze Affiliation | 1013 | + + + | Race | White | + + + | Ethnic Group | Not or | + + + Author + + + | Author | [facility] | | | and [place] | + + + | Organization | [facility] | | [...] [place] | | | | | [address] | | + + + + + Care Team Providers + +------+ + | Care Parts Lister Name | Role | Phone | + +------+ + | Moe Bella MD | PCP | | + +------+ + Reason for Visit +--------+--------+ + | Reason | Onset | Comments | | | Date | | +--------+--------+ + | Other | 05/30/ | | | | 2015 | | +--------+--------+ + Encounter Details +--------+ + + + + | Date | Type | Department | Care Team | Description | +--------+ + + + + | 05/30/ | Telephone | [facility] [place] | Chauncey Lee MD | Other | | 2015 | | NEUROSURGERY [address] | [address] | | | | | [facility] | [place] [address] | | | | | [place] | [phone] | | | | | [address] | | | | | | [phone] | | | +--------+ + + + [...] Telephone Encounter - Judith Peres Renée - 05/30/2016 3:50 PM PDTAll presurgical check-in instructions given Surgery date: 06/01/16 Check-in Time: 6:00a.m. No solids or liquids after midnight the night before surgery. Follow the cleansing instructions provided beginning the night before surgery after you rock wer or bathe. No showering the morning of surgery. Please do not wear jewelry, or contact lenses to surgery check-in. If you have dentures, hearing aids, or glasses please bring the cases with you to check-in. Medications instructions: Held for procedure as of 05/29/16: Metformin. Hold morning dos es: Humalog, Losartan-Hydrochlorothiazide. Take the morning of surgery: Metoprolol. Surgical Admit Anticipated Disposition reviewed and correct: "Yes documented in this enc ounter Plan of Treatment Not on filedocumented as of this encounter Visit Diagnoses Not on filedocumented in this encounter
--- OUTSIDE RECORDS SUMMARY | ~2020-08-05 | XMS | Encounter Summary ---
Demographics + + + | Address | [address] [facility] | | | [place] [address] | + + + | Home Phone | | + + + | Preferred Language | Unknown | + + + | Marital Status | | + + + | Mosque Affiliation | CHR | + + + | Race | White | + + + | Ethnic Group | Not or | + + + Author + + + | Author | [facility] | + + + | Organization | [facility] | + + + | Address | Unknown | + + + | Phone | Unavailable | + + + Support + + + + + | Name | Relationship | Address | Phone | + + + + + | Tico Burns | ECON | [address] | | | | | [place], [place] | | | | | [address] | | + + + + + Care Team Providers + +------+ + | Care Auto Clutch Rebuilder Name | Role | Phone | + +------+ + | Moe Bella MD | PCP | | + +------+ + Reason for Visit + + + | Reason | Comments | + + + | Pre-operative | PANNICULECTOMY (GEN) on 04/11/2013 by Jesus Perez MD at [facility] | | evaluation | 6A | + + + Encounter Details +--------+---------+ + + + | Date | Type | Department | Care Team | Description | +--------+---------+ + + + | 04/10/ | Office | Preoperative | Sheryl Guerra | Preop examination | | 2012 | Visit | Medicine Clinic at | R, [address] | (Primary Dx); Morbid | | | | [facility] 4th Floor [address] [facility] [facility] [address] | obesity (HCC); DM | | | | [address] | [place], [place] | (diabetes mellitus) | | | | Mailcode: [facility] | [address] | ([facility]); Hypertension; | | | | [facility] | [phone] | Hyperlipidemia; | | | | and Healing, | | Localized adiposity; | | | | Building 1,4th Floor | | Lipoma of | | | | [place], [place] | | unspecified site; | | | | [address] | | S/P partial | | | | [phone] | | gastrectomy; Sleep | | | [...] preparation to help avoid surgical site infections HIBICLENS GUIDE TO GENERAL SKIN CLEANSING AT [...] or walk. Surgery Check in Locations Admitting [facility] Surgery Check in Time: The Preoperative Medicine [...] it is after office hours, call the [facility] roaster operator at [phone] and ask them to page him or h er. Preparing For Your Surgery Video -- 7 minutes of instructions! Access the [facility] website [email or web address] --> POPULAR RESOURCES --> Patient Guide --> [...] venipuncture performed to obtain other lab tests. raishatSheryl NP - 04/10/2013 2:16 PM PDT PREOPERATIVE [...] with ambulation. Evaluated by Dr. Perez - plan for Panniculectomy an d removal of fatty [...] Date RATE 69 12/26/2012 ATRIALRATE 69 12/26/2012 HI 186 12/26/2012 QRS 88 12/26/2012 QT 398 12/26/2012 QTC 426 12/26/2012 PAXIS 35 12/26/2012 RAXIS -54 12/26/2012 TAXIS 26 12/26/2012 EKGDX Value: Normal sinus rhythm Left anterior fascicular block Abnormal ECG "I have pers onally interpreted this report, either alone or with a trainee." Confirmed by VASYL TAN ([id number]) on 12/26/2012 10:49:35 PM 12/26/2012 MEDICAL DECISION MAKIN ACC/ AHA Perioperative Guidelines 1. Need for emergency noncardiac surgery? b. No -> Proceed to next step. 2. Active Cardiac Conditions? These conditions mandate further investigation and manageme nt. A. Acute CA within 7 days: no B. Unstable angina/Recent CA (7- 30 days): no C. Decompensated CHF: [...] no Rate of cardiac , non fatal CA, non fatal cardiac arrest (RCRI) 0 risk factors - 0.4% 1 risk factors - 1%, 2 risk factors - 7%, 3 or >risk factors - 11% (may benefit from perioperative beta blockers) Risk Factor Recommendations: 1-2 risk factors- proceed with planned surgery with HR control or consider noninvasive testing if it will chemical cell changer Surgery Risk: Intermediate Patient-related risk: Estimated ASA [...] to this patient's care. SHERYL GUERRA NP [facility] PREOPERATIVE MEDICINE CLINIC [address] [facility] [address] documented in this encounter Miscellaneous Notes Nursing Note - Jackie Donahue - 04/10/2013 2:27 PM PDTIrina [place] patient account liaison paged the Pre Opera tive Medicine Clinic on 04/10/13 5580 and requested delivery of the following information to t he patient listed above. Please arrive for surgery on 04/11/13 at 0730 Location 9th [facility] Information faxed to [facility]. Phone call placed to Cristi Kennedy documented in this encounter Plan of Treatment Not on filedocumented as of this encounter Procedures + +--------+ + + + | Procedure Name | Priori | Date/Time | Associated Diagnosis | Comments | | | ty | | | | + +--------+ + + + | HI COLLECTION VENOUS | Routin | 04/10/2013 | [...] the | | | | PDT | ([facility]) DM (diabetes | results section. | | | | | mellitus) ([facility]) | | | | | | Hypertension [...] CR, GLU, CA) | | PDT | ([facility]) DM (diabetes | results section. | | | | | mellitus) ([facility]) | | | | | | Hypertension [...] the | | | | PDT | ([facility]) DM (diabetes | results section. | | | | | mellitus) ([facility]) | | | | | | Hypertension [...] the | | | | PDT | ([facility]) DM (diabetes | results section. | | | | | mellitus) ([facility]) | | | | | | Hypertension [...] the | | | | PDT | ([facility]) DM (diabetes | results section. | | | | | mellitus) ([facility]) | | | | | | Hypertension [...] the | | | | PDT | ([facility]) DM (diabetes | results section. | | | | | mellitus) ([facility]) | | | | | | Hypertension [...] the | | | | PDT | ([facility]) DM (diabetes | results section. | | | | | mellitus) ([facility]) | | | | | | Hypertension [...] + | [facility] | [address] | [place] [address] | | | SERVICES, CORE | PARK [...] | + + + + + | [facility] | [address] | [place] [address] | | | SERVICES, | [address] [...] [facility] | [address] | [place] [address] | | | SERVICES, | [address] [...] | | | LABORATORY | | | [place] | | | SERVICES, | | | [...] the MDRD equation recommended by the | [facility] | | National Kidney Disease Education Program. Estimated GFR | LABORATORY | | Interpretive Information: <60 mL/min/1.73 sq m | DAVEY CRAWFORD | | Chronic Kidney Disease <15 mL/min/1.73 [...] | + + + + + | [facility] | [address] | [place] [address] | | | SERVICES, CORE | PARK [...] | + + + + + | BRIANNA GROSS | [address] [facility] | [place] [address] | | | OF CARE TESTS | | | | + + + + + documented in this encounter Visit Diagnoses + + | Diagnosis | + + | Preop examination - Primary Preoperative examination, unspecified | + + | Morbid obesity ([facility]) Morbid obesity | + + | DM (diabetes mellitus) ([facility]) Type II or unspecified type diabetes mellitus [...]
--- OUTSIDE RECORDS SUMMARY | ~2020-08-05 | XMS | Encounter Summary ---
Demographics + + + | Address | [address] [facility] | | | [place] [address] | + + + | Home Phone | | + + + | Preferred Language | Unknown | + + + | Marital Status | | + + + | Congregational Affiliation | CHR | + + + [...] + | Tico Burns | ECON | [address] | | | | | [place], [place] | | | | | [address] | | + + + + + Care Team Providers + +------+ + | Care Precision Inspector Name | Role | Phone | [...] Obesity | Violetta Sweeney NP | [facility] | | | | | Procedures | [address] | [address] | | | | | CONSULT TO | [address], | [address] | | | | | PSYCHIATRY - | [address] | [address]ín [address]ner | | | | | ADULT | [place], [place] | [employer] | | | | | | [address] | Building [address] | | | | | | Phone: | floor | | | | | | [phone] | [place], [place] | | | | | | Fax: | [address] | | | | | | [phone] | Phone: | | | | | | | [phone] | | | | | | | Fax: | | | | | | | [phone] | + +--------+ + + + + Encounter Details +--------+ + + + + | Date | Type | Department | Care Team | Description | +--------+ + + + + | 04/24/ | Documentati | Digestive Health | Violetta Byers, | | | 2011 | on | Center at [facility] [address] | SCHEDULING SPECIALIST [address] | | | | | [address] | [facility] 350 | | | | | for Health and | [place], [place] | | | | | Healing, Building 2 | [address] | | | | | [place], [place] | [phone] | | | | | [address] | | | | | | [phone] | | | +--------+ + + + [...]
--- OUTSIDE RECORDS SUMMARY | ~2020-08-05 | XMS | Encounter Summary ---
Demographics + + + | Address | [address] | | | [place] [address] | + + + | Home Phone | | + + + | Preferred Language | Unknown | + + + | Marital Status | | + + + | Yarsanism Affiliation | CHR | + + + | Race | White | + + + | Ethnic Group | Not or | + + + Author + + + | Author | [facility] | + + + | Organization | [facility] | + + + | Address | Unknown | + + + | Phone | Unavailable | + + + Support + + + + + | Name | Relationship | Address | Phone | + + + + + | Tico Burns | ECON | [address] | | | | | [place], [place] | | | | | [address] | | + + + + + Care Team Providers + +------+ + | Care Online Marketing Manager Name | Role | Phone | [...] S/P partial | [address] | [address] [place], | | | | | gastrectomy | [place], [place] | [place] | | | | | Procedures | [address] | [phone] | | | | | REQUEST TO | Phone: | Phone: | | | | | SURGERY | [phone] | [phone] | | | | | EMT P | Fax: | Fax: | | | | | KS EXC SKIN | | | | | | | ABD KS EXC | | | | | | [...] + + + + | 02/28/ | Development Vice President | [facility] | Momo, | Pannus, abdominal | | 2012 | | Center at [facility] [address] | MD [address] | (Primary Dx); Fatty | | | | [address] | [address] | tumor; S/P partial | | | | for Health and | [place], [place] | gastrectomy | | | | [facility] 2 | [address] | | | | | [place], [place] | [phone] | | | | | [address] | | | | | | [phone] | | | +--------+ + + + [...]
--- OUTSIDE RECORDS SUMMARY | ~2020-08-05 | XMS | Encounter Summary ---
Demographics + + + | Address | [address] | | | [place] [address] | + + + | Home Phone [...] | [facility] | | | and [place] [...] [place] | | | | | [address] | | + + + + + Care Team Providers + +------+ + | Care Service Provider Name | Role | Phone | + +------+ + | Moe Bella MD | PCP | | + +------+ + Reason for Visit + + + | Reason | Comments | + + + | Follow-up | 4W PO X-Rays done on 07/11/2016 | + + + Encounter Details +--------+---------+ + + + | Date | Type | Department | Care Team | Description | +--------+---------+ + + + | 07/11/ | Office | [facility] | Jose Mirza | S/P cervical spinal | | 2016 | Visit | NEUROSURGERY [address] | [address] | fusion (Primary Dx); | | | | [address] [place], [place] | Left arm weakness; | | | | [place], [place] | [address] | Cervical spondylosis | | | | [address] | | with radiculopathy; | | | | [phone] | | Foraminal stenosis | | | | | | of cervical region | +--------+---------+ + + + Social History [...] + + + | Blood Pressure | 126/87 | 07/11/2016 3:02 PM | | | | | PDT | | + + + + + | Pulse | 121 | 07/11/2016 3:02 PM | | | | | PDT | | + + + + + | Temperature | - | - | | + + + + + | Respiratory Rate | 16 | 07/11/2016 3:02 PM | | | | | PDT | | + + + + + | Oxygen Saturation | - | - | | + + + + + | Inhaled Oxygen | - | - | | | Concentration | | | | + + + + + | Weight | - | - | | + + + + + | Height | 175.3 cm (5' 9") | 07/11/2016 3:02 PM | | | | | PDT | | + + + + + | Body Mass Index | - | - | | + + + + + documented in this encounter Patient Instructions Patient Instructions Jose Mirza PA-C - 07/11/2016 3:20 PM PDTAt this time you m ay increase your activities allowing lifting up to 15 pounds. You may also begin removing y our cervical collar while you are eating, showering and sleeping. We would like to see you back in approximately 2 months with x-rays of your cervical spine documented in this encounter Progress Notes Jose Mirza PA-C - 07/11/2016 3:22 PM PDTFormatting of this note might be differ ent from the original. Jose Mirza PA-C [address] [facility], [address] [place], [place] [id number] FAX: NEUROSURGERY FOLLOW-UP CHIEF COMPLAINT: Chief Complaint Patient presents with Follow-up 4W PO X-Rays done on 07/11/2016 HISTORY OF PRESENT ILLNESS: The patient is a 51 y.o. male that had a cervical fusion for r adiculopathy around 4 weeks ago. He returns and overall is doing well. The patient complai ns of some issues with swallowing although this has improved. He has pain and the back of h is neck. The patient has been walking as much as directed. Swallowing is improving. Th e patient has had no issues with his surgical site. CURRENT MEDICATIONS: Current Outpatient Prescriptions Medication Sig Dispense Refill TOMAS MICROLET LANCETS MISC Use as directed cyclobenzaprine (FLEXERIL) 10 mg tablet Take 1 tablet by mouth every 8 hours as needed for Muscle spasms. 90 tablet 3 ergocalciferol (ERGOCALCIFEROL) 29545 UNITS capsule Take 50,000 Units by mouth Once a w kiana. FLUoxetine (PROZAC) 20 mg capsule Take 20 [...] illicit drugs. INTERIM PHYSICAL EXAMINATION: Blood pressure 126/87, pulse 121, resp. rate 16, height 1.753 m (5' 9"). There is no weight on file to calculate BMI. GENERAL: Gerard Burns is in no acute [...] and were reviewed with the patient today. There have been no interval changes since the immediate postoperative films . Complete fusion has not yet occurred, but this is normal and would not be expected at thi s time. ASSESSMENT: Encounter Diagnoses Name Primary? S/P cervical spinal fusion Yes Left arm weakness Cervical spondylosis with radiculopathy Foraminal stenosis of cervical region Past Medical History Diagnosis Date Hypertension Cancer (HCC) thyroid Depression Diabetes (HCC) Thyroid disease High cholesterol Primary osteoarthritis of left shoulder Nerve root and plexus disorder Spondylosis without myelopathy or radiculopathy, cervical region Arthritis Sleep apnea uses CPAP PLAN: Overall, the patient is doing well. The patient can see some improvements but continues to recover from recent surgery. I increased the patient s activities now allowing 15 pound lifting. The patient should i ncrease range of motion activities as tolerated. I would like the patient to advance slowly with this process and discussed this at length during today's visit. I would also like the patient to continue with postoperative rehabilitation and to advance with therapy as kapila lou. He may begin removing his cervical collar when he is eating, sleeping and showering. we martha field see him back in approximately 2 months with x-rays of his cervical spine ELECTRONICALLY SIGNED BY: Jose Mirza PA-C, 07/11/2016 15:22 documented in this encounter Plan of Treatment Not on filedocumented as of this encounter Results XR Cervical Spine 2 or 3 Views (09/14/2016 9:39 AM PST) + + | Specimen | + + | | + + + + + | Narrative | Performed At | + + + | XR CERVICAL SPINE 2 OR 3 VIEWS 09/14/2016 9:39 AM HISTORY: | [facility] | | Postop. COMPARISON: Multiple priors. FINDINGS: Visualized | [facility] | | skull base and facial structures demonstrate no acute findings. The | [facility]ICAL [facility]ENTER | | prevertebral soft tissues are mildly thickened and could be due to | - IMAGING | | recent surgery. Again seen are hardware for anterior fusion from | | | C4 through C7 with interbody graft material at the levels. The | | | hardware are intact. Bone mineralization is normal. The dens is | | | normal. Vertebral body height are preserved with no evidence for | | | compression fractures. Disc height are maintained. Facet joints are | | | intact. Soft tissue structures are unremarkable. Visualized upper | | | chest demonstrates no acute findings. IMPRESSION - Stable | | | anterior fusion from C4 through C7. Dictated and Signed by: Keo | | | MD Aneudy Electronically signed: 09/14/2016 10:06 AM | | + + + + + | Procedure Note | + + | Ald[place], Rad Results In - 09/14/2016 10:09 AM PST XR CERVICAL SPINE 2 OR 3 VIEWS | | 09/14/2016 9:39 AMHISTORY: Postop.COMPARISON: Multiple priors.FINDINGS:Visualized skull | | base and facial structures demonstrate no acute findings. Theprevertebral soft tissues | | are mildly thickened and could be due to recentsurgery.Again seen are hardware for | | anterior fusion from C4 through C7 with interbodygraft material at the levels. The | | hardware are intact. Bone mineralization isnormal. The dens is normal. Vertebral body | | height are preserved with no evidencefor compression fractures. Disc height are | | maintained. Facet joints are intact.Soft tissue structures are unremarkable. Visualized | | upper chest demonstrates noacute findings. IMPRESSION -Stable anterior fusion from C4 | | through C7.Dictated and Signed by: Keo Amado MD Electronically signed: 09/14/2016 | | 10:06 AM | |Again seen are hardware for anterior fusion from C4 through C7 with interbody | |graft material at the levels. The hardware are intact. Bone mineralization is | |normal. The dens is normal. Vertebral body height are preserved with no evidence | |for compression fractures. Disc height are maintained. Facet joints are intact. | |Soft tissue structures are unremarkable. Visualized upper chest demonstrates no | |acute findings. | | | |IMPRESSION - | |Stable anterior fusion from C4 through C7. | | | |Dictated and Signed by: Keo Amado MD | | Electronically signed: 09/14/2016 10:06 AM | + + + + + + + | Performing | Address | City/State/Zipcode | Phone Number | | Organization | | | | + + + + + | [facility] | [address] | [place] | [phone] | | [facility] | | [address] | | | - IMAGING | | | | + + + + + documented in this encounter Visit Diagnoses + + | Diagnosis | + + | S/P cervical spinal fusion - Primary Arthrodesis status | + + | Left arm weakness Other musculoskeletal symptoms referable to limbs | + + | Cervical spondylosis with radiculopathy Cervical spondylosis with myelopathy | + + | Foraminal stenosis of cervical region Spinal stenosis in cervical region | + + documented in this encounter
--- OUTSIDE RECORDS SUMMARY | ~2020-08-05 | XMS | Encounter Summary ---
Demographics + + + | Address | [address] | | | [place] [address] | + + + | Home Phone [...] | Author | [facility] | | | and [place] | + + + | Organization | [facility] [place] [...] [place] | | | | | [address] | | + + + + + Care Team Providers + +------+ + | Care Research Compliance Specialist Name | Role | Phone | + +------+ + | Moe Bella MD | PCP | | + +------+ + Encounter Details +--------+ + + + + | Date | Type | Department | Care Team | Description | +--------+ + + + + | 04/07/ | Imaging | [facility] | Provider, | | | 2020 | Exam | MED CTR EXTERNAL | MD [address] | | | | | IMAGING [address] | [address] | | | | | [facility] | [place] [address] | | | | | [place] [address] | | | | | | [phone] | | | +--------+ + + + [...]
--- OUTSIDE RECORDS SUMMARY | ~2020-08-05 | XMS | Encounter Summary ---
Demographics + + + | Address | [address] | | | [place] [address] | + + + | Home Phone | | + + + | Preferred Language | Unknown | + + + | Marital Status | | + + + | Confucianist Affiliation | 1013 | + + + | Race | White | + + + | Ethnic Group | Not or | + + + Author + + + | Author | [facility] | | | and [place] [...] [place] | | | | | [address] | | + + + + + Care Team Providers + +------+ + | Care Wealth Management Advisor Name | Role | Phone | + +------+ + | Moe Bella MD | PCP | | + +------+ + Encounter Details +--------+ + + + + | Date | Type | Department | Care Team | Description | +--------+ + + + + | 03/16/ | Hospital | [facility] | Chauncey Lee MD | S/P cervical spinal | | 2017 | Encounter | MED CTR XRAY [address] | [address] | fusion | | | | [place] | [place] [address] | | | | | [place] [address] | [phone] | | | | | [phone] | | | +--------+ + + + [...] | | | 12 | | | 73964 UNITS capsule | | | | | [...] | [facility] | [address] | [place] | [phone] | | [facility] | | [address] | | | - IMAGING | | | | + + + + + documented in this encounter Visit Diagnoses + + | Diagnosis | + + | S/P cervical spinal fusion Arthrodesis status | + + documented in this encounter"
--- OUTSIDE RECORDS SUMMARY | ~2020-08-05 | XMS | Encounter Summary ---
Demographics + + + | Address | [address] | | | [place] [address] | + + + | Home Phone [...] + | Tico Burns | ECON | [address] | | | | | [place], [place] | | | | | [address] | | + + + + + Care Team Providers + +------+ + | Care Inventory Transcriber Name | Role | Phone | + +------+ + | Moe Bella MD | PCP | | + +------+ + Encounter Details +--------+ + + + + | Date | Type | Department | Care Team | Description | +--------+ + + + + | 12/13/ | Abstract | Dig[facility]ive [facility] | Violetta Byers, | | | 2012 | | Center at [facility] [address] | PLANT BUYER [address] | | | | | [address] | [facility] [address] | | | | | for Health and | [place], [place] | | | | | [place] [address] | [address] | | | | | [place], [place] | [phone] | | | | | [address] | | | | | | [phone] | | | +--------+ + + + [...]
--- OUTSIDE RECORDS SUMMARY | ~2020-08-05 | XMS | Encounter Summary ---
Demographics + + + | Address | [address] | | | [place] [address] | + + + | Home Phone [...] + | Tico Burns | ECON | [address] | | | | | [place], [place] | | | | | [address] | | + + + + + Care Team Providers + +------+ + | Care Drum Sealer Name | Role | Phone | + [...] at | | | | | | [facility] 4th Floor [address] | | | | | | [address] | | | | | | Mailcode: CH4S | | | | | | [facility] | | | | | | and Healing, | | | | | | Building ,4th Floor | | | | | | [place], [place] | | | | | | [address] | | | | | | [phone] | | | +--------+ + + + [...]
--- OUTSIDE RECORDS SUMMARY | ~2020-08-05 | XMS | Encounter Summary ---
Demographics + + + | Address | [address] | | | [place] [address] | + + + | Home Phone | | + + + | Preferred Language | Unknown | + + + | Marital Status | | + + + | Voodoo Affiliation | 1013 | + + + | Race | White | + + + | Ethnic Group | Not or | + + + Author + + + | Author | [facility] | | | and [place] | + + + | Organization | [facility] | | | [...] [place] | | | | | [address] | | + + + + + Care Team Providers + +------+ + | Care Decatizer Name | Role | Phone | + +------+ + | Oscar Wright MD | PCP | | + +------+ + Encounter Details +--------+ + + + + | Date | Type | Department | Care Team | Description | +--------+ + + + + | 04/01/ | Abstract | [facility] [place] | Chauncey Lee MD | | | 2016 | | NEUROSURGERY [address] | [address] | | | | | [address] [facility] [address] | [place] [address] | | | | | [place] | [phone] | | | | | [address] | | | | | | [phone] | | | +--------+ + + + [...]
--- OUTSIDE RECORDS SUMMARY | ~2020-08-05 | XMS | Encounter Summary ---
Demographics + + + | Address | [address] | | | [place] [address] | + + + | Home Phone [...] [place], [place] | | | | | [address] | | + + + + + Care Team Providers + +------+ + | Care Multi Spindle Operator Name | Role | Phone | + +------+ + | Moe Bella MD | PCP | | + +------+ + Encounter Details +--------+ + + + + | Date | Type | Department | Care Team | Description | +--------+ + + + + | 11/28/ | Powder Core Tester | Digestive Health | Violetta Byers, | Morbid obesity (HCC) | | 2012 | | Center at [facility] [address] | CLEARING INSPECTOR [address] | (Primary Dx); DM | | | | [address] [facility] | , [address] | (diabetes mellitus) | | | | for Health and | [place], [place] | ([facility]); Hypertension; | | | | [place] [address] | [phone] | Hyperlipidemia; | | | | [place], [place] | [phone] | Vitamin d | | | | [address] | | deficiency; GERD | | | | [phone] | | (gastroesophageal | | | | | | reflux disease) | +--------+ + [...] documented as of this encounter Miscellaneous Notes Addendum Note - Savanna Ho - 11/29/2012 2:39 PM PST Addended by: LUCIO HO MA on: 11/29/2012 02:39 PM Modules accepted: Orders elephone Encounter - Savanna Ho - 11/29/2012 2:35 PM [address] LM for Dr Shayne Pride's RN. I faxed labs and asked if they are willing to order.Electronically signed by Savanna Ho at 013 2:38 PM PSTdocumented in this encounter Plan of Treatment Not on filedocumented as of this encounter Visit Diagnoses + + | Diagnosis | + + | Morbid obesity (HCC) - Primary Morbid obesity | + + | DM (diabetes mellitus) ([facility]) Type II or unspecified type [...]
--- OUTSIDE RECORDS SUMMARY | ~2020-08-05 | XMS | Encounter Summary ---
Demographics + + + | Address | [address] | | | [place] [address] | + + + | Home Phone | | + + + | Preferred Language | Unknown | + + + | Marital Status | | + + + | Faith Affiliation | 1013 | + + + | Race | White | + + + | Ethnic Group | Not or | + + + Author + + + | Author | [facility] | | | and [place] | + + + | Organization | [facility] | | | and [place] | + + + | Address | Unknown | + + + | Phone | Unavailable | + + + Support + + + + + | Name | Relationship | Address | Phone | + + + + + | Milayd Burns | ECON | [address] | | | | | [place] | | | | | [address] | | + + + + + Care Team Providers + +------+ + | Care Piccolo Mechanic Name | Role | Phone | + [...] | | [address] | [place] [address] | (Primary Dx); Morbid | | | | [place], [place] | [phone] | obesity, | | | | [address] | | unspecified obesity | | | | [phone] | | type (HCC); | | | [...] preoperative clearance . COMPARISON: None available. | [facility] | | FINDINGS: Heart size within normal [...] ST. | [address] | [place] | [phone] | | [facility] | | [address] | | | - IMAGING | | [...] | | | | CHARI AUGUST MD ([id number]) | | | | | | on [...] | | Lymphocytes | | K/uL | [facility] | | | | [...] | Eosinophils | | K/uL | [facility] | | | | | | MEDICAL | | | | | | CENTER - | | | | | | LABORATORY | | + +-------+ + + + | Absolute | 0.10 | 0.00 - 0.10 | [facility] | | | Basophils | | K/uL | [facility] | | | | [...] [address] | [place] | [phone] | | [facility] | | [address] | | | - LABORATORY | | [...] [facility] | | | | | | [facility] | | | | | | MEDICAL | | | | | | CENTER - | | | | | | LABORATORY | | + + + + + + | Glucose | 566 (H) | 70 - 109 mg/dL | [facility] | | | | | | [facility] | | | | | | MEDICAL | | | | | | CENTER - | | | | | | LABORATORY | | + + + + + + | BUN | 13 | 7 - 18 mg/dL | [facility] | | | | | | [facility] | | [...] | non- | FILTRATION | mL/min/1.73m2 | [facility] | | | Nauruan | RATE,ESTIMATED | | MEDICAL | | | | mL/min/1.06k8Nlgw than | | CENTER - | | [...] + + | [address] | [address] | [place], [place] | [phone] | | [facility] | | [address] | | | - LABORATORY | | [...]
--- OUTSIDE RECORDS SUMMARY | ~2020-08-05 | XMS | Encounter Summary ---
Demographics + + + | Address | [address] | | | [place] [address] | + + + | Home Phone [...] + | Tico Burns | ECON | [address] | | | | | [place], [place] | | | | | [phone] | | + + + + + Care Team Providers + +------+ + | Care Senior Ui Ux Developer Name | Role | Phone | [...] Anesthesia | 6A Intra Op [id number] | Mckenzie Carranza, | | | 2012 | Event | MIRELLA Wilkins | MD [address] | | | | | [facility] | [address] | | | | | Hospital Admitting | [place], [place] | | | | | Desk Located on the | [address] | | | | | 9th floor | [phone] | | | | | [place], [place] | | | | | | [address] | Tank Gibson RN | | | | | | [phone] | | | | | | [address] | | | | | | [place], [place] | | | | | | [address] | | +--------+ + + + + Anesthesia Record + + + + + | Procedure Name | Responsible | Anesthesia Start | Anesthesia Stop Time | | | Anesthesiologist | Time | | + + + + + | REMOVAL OF FATTY | Mckenzie Carranza MD | 04/11/13 0924 | 04/11/13 1255 [...] encounter OR Notes Anesthesia Postprocedure Evaluation - Mckenzie Carranza MD - 04/11/2013 1:20 PM PDTFormatti ng of this note might be different from the original. Gerard Burns [id number] Allergies Allergen Reactions Codeine Rash Rash all over arms Past Surgical History Procedure Laterality Date Thyroid removal Gastric bypass attempted Sleeve resection of stomach 01/2013 Temp: 36.6 C (97.9 F) Pulse: 69 Resp: 12 BP: 139/79 mmHg SpO2: 98 % Evaluation Patient personally seen and evaluated for recovery from anesthesia care, ROS including card , resp, Neuro, and GI w/o evidence of adverse effects and VS including temperature and hydra tion status are normal Complications nesthesia Preprocedu re Evaluation - Dhaval Dunbar MD - 04/11/2013 9:18 AM PDTFormatting of this note might b e different from the original. Gerard Burns [id number] Allergies Allergen Reactions Codeine Rash Rash all over arms NPO:NPO Status: 7 PM Last Vitals: Temp: 36.6 C (97.9 F) Pulse: 59 Resp: 16 BP: 128/73 mmHg SpO2: 96 % O2 Delivery Device: None (room air) Preg Status/LMP: Patient Active Problem List Diagnosis Morbid obesity Depression BMI 70 and over, adult Nephrolithiasis DM (diabetes mellitus) Hypertension Hyperlipidemia Panniculitis Edema Thyroid cancer Sleep apnea Past Surgical History Procedure Laterality Date Thyroid removal Gastric bypass attempted Sleeve resection of stomach 01/2013 Current Medication List Name Sig Last Dose ASPIRIN 81 MG TABLET Take 81 mg by mouth once daily. 04/10/2013 CALCIUM CITRATE-VITAMIN D3 200 MG CALCIUM-250 UNIT TABLET Take 2 Tabs by mouth two times da yas. Start 2 weeks after surgery. Indications: Hypocalcemia Prevention 04/10/2013 CLONIDINE 0.1 MG TABLET Take 0.1 mg by mouth two times daily. 04/11/2013 CYANOCOBALAMIN (VITAMIN B-12) 1,000 MCG/ML INJECTION Inject 1,000 mcg into the muscle (IM) every thirty days. Indications: Prevention of Vitamin B12 Deficiency Within last 7 days DOCUSATE SODIUM 100 MG CAPSULE Take 1 Cap by mouth two times daily. Within last 7 days FAMOTIDINE 20 MG TABLET Take 1 Tab by mouth two times daily. Indications: Prevention of Str ess Ulcer 04/10/2013 FLUOXETINE 20 MG CAPSULE Take 20 mg by mouth two times daily. 04/11/2013 INSULIN GLARGINE 100 UNIT/ML SUB-Q Inject 50 Units under the skin (SUBC) once daily at bedt kevan. Indications: TYPE 2 DIABETES MELLITUS 04/09/2013 INSULIN LISPRO 100 UNIT/ML SUB-Q Use 2 units for 141-200, 4 units for 201-250, 6 units for 251-300, nj your doctor if > Indications: TYPE 2 DIABETES MELLITUS 04/10/2013 LEVOTHYROXINE 175 MCG TABLET Take 175 mcg by mouth once daily. 04/11/2013 HYZAAR ORAL Take by mouth. Not Taking MAGNESIUM OXIDE 400 MG TABLET Take 1 Tab by mouth two times daily. 04/10/2013 METFORMIN ER 500 MG TABLET,EXTENDED RELEASE 24 HR Take 500 mg by mouth once daily. Administ er with evening meal. 04/10/2013 METOPROLOL TARTRATE 100 MG TABLET Take 100 mg by mouth two times daily. 04/11/2013 PEDIATRIC MULTIVITAMIN CHEWABLE TABLET Take 1 Tab by mouth two times daily. 04/10/2013 URSODIOL 300 MG CAPSULE Take 1 Cap by mouth two times daily. Start Actigall 2 weeks after s urgery. Indications: Cholelithiasis Prevention 04/10/2013 VITAMIN A & ERGOCALCIFEROL(D2) ORAL Take by mouth. 04/10/2013 Lab Results Component Value Date RATE 69 12/26/2012 ATRIALRATE 69 12/26/2012 CA 186 12/26/2012 QRS 88 12/26/2012 QT 398 12/26/2012 QTC 426 12/26/2012 PAXIS 35 12/26/2012 RAXIS -54 12/26/2012 TAXIS 26 12/26/2012 EKGDX Value: Normal sinus rhythm Left anterior fascicular block Abnormal ECG "I have pers onally interpreted this report, either alone or with a trainee." Confirmed by VASYL TAN ([id number]) on 12/26/2012 10:49:35 PM 12/26/2012 Preoperative Adult Anesthesia Plan Last edited 04/11/13 0917 by Dhaval Dunbar MD ROS Pulmonary: Uses CPAP at home. Within Defined Limits except as noted below Dx of sleep apnea Cardiovascular: About 2-3 METS; Denies any chest pain or pressure, SOB, orthopnea, pnd, peripheral edema, syncope +GARZA -- greatly improved since surgery Echo (10/04/2012, in media tab): Normal LV function No significant valvular abnormalities Within Defined Limits except as noted below Functional Capacity: Low no CAD hypertension poorly controlled no pacemaker GI/Hepatic: No reflux x 2 years Within Defined Limits except as noted below GERD Control: Well controlled : Within Defined Limits except as noted below Endo: Hb A1c - 8.3 today Morning BS - about 120; highest about 400 in last month (had forgotten his lunchtime insulin dose) BMI - 71 Within Defined Limits except as noted below Other endo: MEN:Parathyroid: Pituitary: Thyroid:+ hypothyroid Neurological: Numbness both feet from DM Within Defined limits except as noted below Treatments: Treated w/medications psychiatric problem depression no pain Current pain level: 0 MS: Low back pain Within Defined Limits except as noted below Heme/Onc: Within Defined Limits except as noted below Pt. has: no active bleeding Malignancy: cancer, Location: Metastasis: Skin: Comments: Open areas x 2 to lower pannus Within Defined Limits except as noted below Physical Exam General: Patients general appearance: Alert, No distress and Cooperative Head & Neck/Airway: Neck ROM: full Neck Circumference: 41.5 cm. TM Distance:> 6cm Dentition: dental implants, bridges or caps present Dental risk discussed with/pt : Yes Dentition Comments: # 6-11 capped Gardiner: No [...] Comments: Denies any issues with anesthesia complications Anesthesia Plan Comments ASA ASA 3 NPO Status NPO Status: NPO by protocol Monitors/Lines to be used Art line and Standard Anesthetic Consideration Two large bore PIV Induction intravenous induction Anesthetic Technique Post-Op Pain Plan IV analgesics; Blood Products T and S; Interpretive Services Informed Consent PARQ discussed with: patient and spouse, Procedures, Alternatives, Risks, and Questions di scussed and Risk/benefit of anesthesia plan and blood product discussed ; ; Date Consent Ser ies Given: 04/11/2013 9:18 AM Code status in OR Patients Code Status in OR: FULL 04/11/2013 12:56 PM documented in this en counter Miscellaneous Notes Ane airway standard - Dhaval Dunbar MD - 04/11/2013 11:05 AM PDTProcedure Reason for Intubation: For surgical procedure, Location Performed: [place] , Patient was preoxyg enated Mask Ventilation Grade 0 - Ventilation by mask not attempted Rapid Sequence Induction: with cricoid Intubation Blade type: Herrera , Blade size: 4, Atraumatic laryngoscopy: Atraumatic Laryngoscopy, In tubation adjuncts: Ramp , Laryngoscopic view: Grade I, Fiberoptics used: N/A , Number of Att empts: 2, Positive for EtCO2: Yes, Breath sounds: Bilateral and equal Prior intubation attempts: Blade type: Herrera , Blade size: 4, Atraumatic Laryngoscopy: no second Atraumatic Laryng oscopy, Intubation adjuncts: Ramp, , Laryngoscopic view: Grade I, Fiberoptics used: N/A ETT ETT Size: 8 Depth at : 26 cm Airway leak: No LMA Narrative Attending physically present Attending: MCKENZIE CARRANZA Performed by Resident DHAVAL DUNBAR Resident with grade I view with DL using ramp, no fogging in tube or EtCo2 after ETT place ment. Tube removed, attending repeated DL with grade I view and ETT placed without difficult y. Patient was preoxygenated extensively prior to being Intubated. rterial Line - Dhaval Dunbar MD - 04/11/2013 11:03 AM PDTProcedure ART LINE Procedure Information Inserted: After Induction 5 minutes to perform. Type Catheter: Arrow kit Indications: Frequent lab draws and Beat to beat blood pressure monitoring Location Performed: [place] Informed Consent: Included in anesthesia consent Protective Barrier: Cap, Mask, Hand scrub and Sterile Gloves Draped: Partially draped Anesthesia Method: General anesthesia Insertion side: Left Insertion Site: Radial Access device: 20g Line secured by:Dressing Applied Assessment Number of attempts: 1st Complications: None Assessment: Catheter connected to pressure line and flushed, catheter manually flushed, Boubacar erated procedure well and Perfusion checked distal to catheter Attending physically present Attending name: MCKENZIE CARRANZA [facility] PreOp Note - Dhaval Dunbar MD - 04/11/2013 9:14 AM PDT ROS Pulmonary: Uses CPAP at home. Within Defined Limits except as noted below Dx of sleep apnea Cardiovascular: About 2-3 METS; Denies any chest pain or pressure, SOB, orthopnea, pnd, peripheral edema, syncope +GARZA -- greatly improved since surgery Echo (10/04/2012, in media tab): Normal LV function No significant valvular abnormalities Within Defined Limits except as noted below Functional Capacity: Low no CAD hypertension poorly controlled no pacemaker GI/Hepatic: No reflux x 2 years Within Defined Limits except as noted below GERD Control: W ell controlled : Within Defined Limits except as noted below Endo: Hb A1c - 8.3 today Morning BS - about 120; highest about 400 in last month (had forgotten his lunchtime insuli n dose) BMI - 71 Within Defined Limits except as noted below Other endo: MEN:Parathyroid: Pituitary : Thyroid:+ hypothyroid Neurological: Numbness both feet from DM Within Defined limits except as noted below Treat ments: Treated w/medications psychiatric problem depression no pain Current pain level: 0 MS: Low back pain Within Defined Limits except as noted below Heme/Onc: Within Defined Limits except as noted below Pt. has: no active bleeding Malignanc y: cancer, Location: Metastasis: Skin: Comments: Open areas x 2 to lower pannus Within Defined Limits except as noted below Physical Exam General: Patients general appearance: Alert, No distress and Cooperative Head & Neck/Airway: Neck ROM: full Neck Circumference: 41.5 cm. TM Distance:> 6cm Dentition: dental implants, bridges or caps present Dental risk discussed with/pt : Yes Dentition Comments: # 6-11 capped Gardiner: No [...] Comments: Denies any issues with anesthesia complications [facility] PreOp Note - Sheryl Lozoya NP - 04/10/2013 2:16 PM PDT ROS Pulmonary: Within Defined Limits except as noted [...] Within Defined limits except as noted below Treat ments: Treated w/medications psychiatric problem depression no pain Current pain level: 0 MS: Low back pain Within Defined Limits except as noted below Heme/Onc: Within Defined Limits except as noted below Malignancy: cancer, Location: Metasta sis: Skin: Comments: Open areas x 2 to lower pannus Within Defined Limits except as noted below Physical Exam General: Patients general appearance: Alert, [...] Comments: Denies any issues with anesthesia complications documented in this encounter Plan of Treatment [...] | +---+---+ + +-------+ +--------+---+---+ | glycopyrrolate (aka BELLE) | Given | 04/11/20 | 0.6 mg | | | | injection INTRAPROCEDURE PRN, | | 13 12:26 | | | | | Starting 04/11/13 at 1226, | | PM PDT | | | | | Until Sun04/11/13 at 1244 | | | | | | + +-------+ +--------+---+---+ +---+---+ | | | +---+---+ + +-------+ +---------+---+---+ | insulin regular (anoop Parry) | Given | 04/11/20 | 5 Units | | | | injection INTRAPROCEDURE PRN, | | 13 11:33 | | | | | Starting Sun04/11/13 at 1048, | | AM PDT | [...] | | | 04/11/13 at 1016, Until 04/11/13 | | | | | [...] 12:15 | | | | | Starting 04/11/13 at 0910, | | PM PDT | | | | | Until 04/11/13 at 1244 | | | | | [...] | | | 04/11/13 at 1226, Until Sun04/11/13 | | | | | [...] 11:17 | | | | | Starting 04/11/13 at 0948, | | AM PDT | [...]
--- OUTSIDE RECORDS SUMMARY | ~2020-08-05 | XMS | Encounter Summary ---
Demographics + + + | Address | [address] | | | [place] [address] | + + + | Home Phone [...] | [facility] [place] | [...] [place] | | | | | [address] | | + + + + + Care Team Providers + +------+ + | Care Reinsurance Claim Analyst Name | Role | Phone | + +------+ + | Myra Karimi MD | PCP | | + +------+ + Encounter Details +--------+ + + + + | Date | Type | Department | Care Team | Description | +--------+ + + + + | 03/06/ | Hospital | [facility] | Brooklynn Lew DO | Diagnosis unknown; | | 2018 - | Encounter | [facility] | [address] | Intracranial | | | | [address] | [place] [address] | hemorrhage (HCC); | | 03/12/ | | [place], [place] | [phone] | Hyperglycemia; | | 2017 | | [id number] | | Elevated blood | | | | [phone] | | pressure reading; | | | [...] Discharge Summaries by Job Miranda MD at 03/12/18 0742 Author: Job Miranda MD Service: Hospitalist Author Type: Physician Filed: 03/12/18 1700 Date of Service: 03/12/18 0742 Status: Signed Roll Builder: Job Miranda MD (Physician) Patient: Matthias Burns [...] and was recommended to be discharged to [facility] bed. He was st arted on aspirin and [...] for patient. Recent Labs Recent Labs Lab 03/12/18 0405 03/11/18 0418 03/10/18 0405 WBC 6.03 7.68 12.64* HGB 13.1* 13.6 12.9* HCT 37.2* 39.3 38.0* PLT 247 213 186 Recent Labs Lab 03/12/18 0405 03/11/18 0418 03/10/18 0405 03/09/18 1043 NA 140 138 137 -- K 3.7 3.9 3.5 -- CL 106 107 104 -- CO2 25 21* 24 -- BUN 10 13 13 -- CREATININE 0.9 1.0 1.2 -- GLUCOSE -- -- -- 386* Recent Labs Lab 03/06/18 1940 INR 0.9 Results Procedure Component Value Units Date/Time Blood Culture Set 1 [[id number]] Collected: 03/09/18 0259 Specimen: Blood from Blood Updated: 03/11/18522 Specimen Description BLOOD SPECIAL REQUESTS LAC CULTURE NO GROWTH 2 DAYS Blood Culture Set 2 [[id number]] Collected: 03/09/18 0249 Specimen: Blood from Blood Updated: 03/11/18 0523 Specimen Description BLOOD SPECIAL REQUESTS R HAND CULTURE NO GROWTH 2 DAYS Recent Radiology Results X-ray Chest 1 View Result Date: 03/09/2018 No evidence of pneumonia. RADIA Electronically signed by Chauncey Coreas MD on March 09 4:05AM Referring Provider Line: [phone] ID: [id number] Carotid Doppler, Bilateral Result [...] Mar 07 2018 7:45AM Referring Provider Line: [phone] ID: [id number] Mri Brain W Wo And [...] Mar 06 2018 10:30PM Referring Provider Line: [phone] ID: [id number] Echo Cardiac Adult With Bubble [...] Discharge Information: Follow up: Myra Karimi MD [address] [place] [id number] s/p CVA, diabetes mellitus, abdominal wall cellulitis [...] MG tablet Commonly known as: FLEXERIL ergocalciferol 65221 units capsule Commonly known as: DRISDOL insulin [...] MG capsule metoprolol 25 MG tablet Disposition: [facility] Condition: Stable Code Status: Prior Discharge [...] | | | 12 | | | 37987 UNITS capsule | | | | | [...] Note by Yahaira Jeffers RN at 03/12/18 1159 Author: Yahaira Jeffers RN Service: (none) Author Type: Registered Nurse Filed: 03/12/18 1200 Date of Service: 03/12/18 1159 Status: Signed Roll Builder: Yahaira Jeffers RN (Registered Nurse) Report called to Natalie padilla RN at at [facility]. Yahaira yadav RN onver [place]ma Transaction, Provider Unknown - 03/12/2018 11:33 AM PDT Case Management by MELISSA Kaba at 03/12/18 1133 Author: MEILSSA Kaba Service: (none) Author Type: Spool Maker Filed: 03/12/18 1134 Date of Service: 03/12/18 1133 Status: Signed Roll Builder: MELISSA Kaba (Spool Maker) 03/12/18 1100 Discharge Planning Evaluation Admitting Diagnosis CVA Anticipated Disposition Facility Type Inpatient Rehabilitation Inpatient Rehabilitation Facilities Other (comment) ([facility] ) Disposition: [facility] Transportation: Private pay transport. All orders, signed AVS, and prescriptions have been faxed All DC paperwork completed Patient and family in agreement with transfer Medicare important message signed and copy in chart Social Vernell KABA [phone] cell onver alma Transaction, Provider Unknown - 03/12/2018 10:50 AM PDT Case Management by MELISSA Kaba at 03/12/18 1050 Author: MELISSA Kaba Service: (none) Author Type: Spool Maker Filed: 03/12/18 1052 Date of Service: 03/12/18 1050 Status: Signed Roll Builder: MELISSA Kaba (Spool Maker) 03/12/18 1000 Discharge Planning Evaluation Admitting Diagnosis CVA Anticipated Disposition Facility Type Inpatient Rehabilitation Inpatient Rehabilitation Facilities Other (comment) ([facility] ) MECHANICAL OXIDIZER p/c left msg with Yashira Gaviria, Admissions at [facility] program ph, fax). Faxed over discharge orders. DCP: [facility] CONNER BRANCH, Spool Maker [phone] cell onver [place] Ramirez, Provider Unknown - 03/11/2018 5:17 PM PDT Nurse Progress Note by Vianney Peres RN at 03/11/181716 Author: Vianney Peres RN Service: (none) Author Type: Registered Nurse Filed: 03/11/18 171 Date of Service: 03/11/181716 Status: Signed Roll Builder: Vianney Peres RN (Registered Nurse) Pt reports [...] concerns at this time Vianney estrada Dominga Littlejohn PT - 03/11/2018 3:30 PM PDTFormatting of this note might be different from the nikki ayesha. Therapy Progress Note by Dominga Valdez PT at 03/11/18 1530 Author: Dominga Valdez PT Service: (none) Author Type: Physical Therapist Filed: 03/11/18 8488 Date of Service: 03/11/18 1530 Status: Signed Roll Builder: Dominga Valdez PT (Physical Therapist) PHYSICAL THERAPY TREATMENT NOTE PT Received On: 03/11/18 Reason for Treatment: Stroke (subacute-chronic L cerebellar infarcts) Requires PT Follow Up: Yes Follow up PT Only?: No Assistance Required: 1 person Recommendations: IRF Equipment Recommended: (defer to IRF) PT Ready for Discharge: Yes Recommendation Comments: Pt planned to discharge tomorrow to [facility] for continued maki abilitation prior to return [...] standing and 1x seated rest breaks, but oth erwise tolerated session well. He was left in [...] Management by Khushboo Walker RN at 03/11/18 7034 Author: Khushboo Walker RN Service: (none) Author Type: Registered Nurse Filed: 03/11/18 3548 Date of Service: 03/11/18 1228 Status: Addendum Roll Builder: Khushboo Walker RN (Registered Nurse) Related Notes: Original Note by Khushboo Walker RN (Registered Nurse) filed at 03/11/18 1 446 Discharge Planning: CM placed call to [facility] Yashira [phone] for f/up re pt admit. 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 [employer] Transport scheduled for noon CM spoke to [facility] facility requests updated notes Fax to Yashira Fax onver alma Transaction, Provider Unknown - 03/11/2018 11:45 AM PDT Nurse Progress Note by Vianney Peres RN at 03/11/18 1145 Author: Vianney Peres RN Service: (none) Author Type: Registered Nurse Filed: 03/11/18 1201 Date of Service: 03/11/18 1145 Status: Signed Roll Builder: Vianney Peres RN (Registered Nurse) Redness to panus outlined; pt tolerated well; pt denies any questions or concerns at this t kevan Vianney Peres onver alma Transaction, Provider Unknown - 03/11/2018 11:05 AM PDT Therapy Progress Note by DENIZ Armstrong/Teresita at 03/11/18 1105 Author: MALIK Armstrong Service: (none) Author Type: Occupational Therapist Filed: 03/11/18 1247 Date of Service: 03/11/18 1105 Status: Signed Roll Builder: MALIK Armstrong (Occupational Therapist) OCCUPATIONAL THERAPY TREATMENT NOTE OT Received On: 03/11/18 Reason for Treatment: Stroke Requires OT Follow Up: Yes Assistance Required: 1 person Heating Engineer Needed: No Family/Caregiver Present: No Recommendation: Rehab consult ([facility]) Equipment Recommended: Tub transfer bench, Chief Business Development Officer, Sock aid Requires OT Follow Up: Yes Recommendation Comments Pt continues to require SBA-min A for ADLs. Per chart review, pt planning to discharge to [facility] for further rehab. Pt may benefit [...] FWW to safety when ambulating to the [facility]. Additional Activities Additional Activities Comments: Pt continues to require SBA-min A for ADLs. Per chart delonte avila, pt planning to discharge to [facility] for further rehab. Pt may benefit [...] evidence of learning [] Refused onver alma Transaction, Provider Unknown - 03/11/2018 10:59 AM PDT Nurse Progress Note by Vianney Peres RN at 03/11/181058 Author: Vianney Peres RN Service: (none) Author Type: Registered Nurse Filed: 03/11/181108 Date of Service: 03/11/181058 Status: Signed Roll Builder: Vianney Peres RN (Registered Nurse) Physician at [...] 03/11/18921 Date of Service: 03/11/18921 Status: Signed Roll Builder: CHRIS Nova (Massage Therapist) 03/11/18920 Massage Therapy Interventions Locations Hands;Shoulder;Neck Massage Therapy Technique Effleurage Response to treatment Decreased muscle tension Julio Randall MD - 03/11/2018 9:12 AM PDT Progress Notes by Julio Viveros MD at 03/11/18911 Author: Julio Viveros MD Service: Hospitalist Author Type: Physician Filed: 03/13/18 1838 Date of Service: 03/11/18911 Status: Signed Roll Builder: Julio Viveros MD (Physician) [facility] Service: Hospitalist Progress Note Hospital Day: LOS: 4 days Briefly, 53-year-old male with extensive past medical history of morbid obesity, type II di abetes mellitus, hyperlipidemia and hypertension who presents to [facility] from [facility] for right-sided headache found to have acute [...] further clarification of fever and acceptance at [facility]. Insulin-dependent type II diabetes mellitus: -Target [...] 1103 Date of Service: 03/11/18900 Status: Signed Roll Builder: Vianney Peres RN (Registered Nurse) Pt requesting [...] 03/11/1847 Date of Service: 03/11/18740 Status: Signed Roll Builder: Vianney Peres RN (Registered Nurse) Pt resting [...] any questions or concerns at this ti me Vianney Peres blemo Julio rosado MD - 03/10/2018 7:39 AM PDT Progress Notes by Julio Viveros MD at 03/10/18738 Author: Julio Viveros MD Service: Hospitalist Author Type: Physician Filed: 03/10/18 1345 Date of Service: 03/10/18738 Status: Signed Roll Builder: Julio Viveros MD (Physician) [facility] Service: Hospitalist Progress Note Hospital Day: LOS: 3 days Briefly, 53-year-old male with extensive past medical history of morbid obesity, type II di abetes mellitus, hyperlipidemia and hypertension who presents to [facility] from [facility] for right-sided headache found to have acute [...] reviewed. Principal Problem: CVA (cerebral vascular accident) ([facility]) Active Problems: BMI 60.0-69.9, adult (HCC) Type 2 diabetes mellitus with hyperglycemia ([facility]) Hypothyroidism Dyslipidemia Benign essential hypertension ASSESSMENT & [...] further clarification of fever and acceptance at [facility]. Insulin-dependent type II diabetes mellitus: -Target [...] Service: Hospitalist Author Type: Physician Filed: 03/09/18 9117 Date of Service: 03/09/18 1009 Status: Addendum Roll Builder: Julio Viveros MD (Physician) Related Notes: Original Note by Julio Viveros MD (Physician) filed at 03/09/18 2919 [facility] Service: Hospitalist Progress Note Hospital Day: LOS: 2 days Briefly, 53-year-old male with extensive past medical history of morbid obesity, type II di abetes mellitus, hyperlipidemia and hypertension who presents to [facility] from [facility] for right-sided headache found to have acute [...] reviewed. Principal Problem: CVA (cerebral vascular accident) ([facility]) Active Problems: BMI 60.0-69.9, adult (HCC) Type 2 diabetes mellitus with hyperglycemia ([facility]) Hypothyroidism Dyslipidemia Benign essential hypertension ASSESSMENT & [...] -Disposition: The patient prefers to be at [facility] secondary to proximity to home. Kindly see telephonic nurse case manager's note for further details. Fever: [...] Service: (none) Author Type: Registered Nurse Filed: 03/09/18643 Date of Service: 03/09/18532 Status: Addendum Roll Builder: Melvi Sanderson RN (Registered Nurse) Related Notes: Original Note by Melvi Sanderson RN (Registered Nurse) filed at 03/09/1849 Patient had onset of fever of 102.5 degrees with midnight vital signs. HR noted to be eleva lou in the 100-110's. BP 168 systolic. Alert and oriented X 4. No neuro status changes at th is point in time. Declines COOK. Tylenol given for fever. Fever persisted with [...] Management by Shannon Montoya RN at 03/08/18 1506 Author: Shannon Montoya RN Service: (none) Author Type: Siebel Developer Filed: 03/08/18 1512 Date of Service: 03/08/18 1506 Status: Signed Roll Builder: Shannon Montoya RN (Siebel Developer) Referral faxed to [facility] per patient request. [phone] (f) [phone] . CM spoke with Yashira who will review referral for placement. onver alma Transaction, Provider Unknown - 03/08/2018 1:39 PM PDT Nurse Progress Note by Yahaira Jeffers RN at 03/08/18 1339 Author: Yahaira Jeffers RN Service: (none) Author Type: Registered Nurse Filed: 03/08/18 1340 Date of Service: 03/08/18 1339 Status: Signed Roll Builder: Yahaira Jeffers RN (Registered Nurse) Per Endotool discontinued, new high dose sliding scale orders with lantus. Yahaira saha RN Wing Joan Rosales MD - 03/08/2018 10:27 AM PDTFormatting of this note might be different from the orig inal. Progress Notes by Wing Joan Humphrey MD at 03/08/18 1027 Author: Wing Joan Humphrey MD Service: (none) Author Type: Physician Filed: 03/08/18 1034 Date of Service: 03/08/18 1027 Status: Signed Roll Builder: Wing Joan Humphrey MD (Physician) Patient seen [...] insurance auth He would prefer to go [facility] Yohana Humphrey MD 03/08/2018 10:27 AM Admission [...] ([place]) 03/06/2018 442 ms Final Calculated P [place] 03/06/2018 48 degrees Final Calculated R [place] 03/06/2018 -62 degrees Final Calculated T [place] 03/06/2018 62 degrees Final Diagnosis 03/06/2018 Final Value:Normal sinus rhythm Left anterior fascicular block Possible Anterolateral infarct , age undetermined Abnormal ECG No previous ECGs available This ECG contains Unconfirmed Interpretation Statements. See ED Record for Physician Inter pretation. Confirmed by MUSE READ ONLY, -COMPUTER ([id number]), website/blog editor Yahaira Chicas ([id number]) on 03/07/2018 5:57:49 AM GLUCOSE,POC SCREEN [...] YELLOW Final CLARITY 03/07/2018 CLEAR Final Specific [place], UA 03/07/2018 1.036* 1.002 - 1.030 Final [...] Date of Service: 03/08/18 1011 Status: Signed Roll Builder: Julio Viveros MD (Physician) [facility] Service: Hospitalist Progress Note Hospital Day: LOS: 1 day Briefly, 53-year-old male with extensive past medical history of morbid obesity, type II di abetes mellitus, hyperlipidemia and hypertension who presents to [facility] from [facility] for right-sided headache found to have acute [...] (HCC) Type 2 diabetes mellitus with hyperglycemia ([facility]) Hypothyroidism Dyslipidemia Benign essential hypertension ASSESSMENT & [...] -Disposition: The patient prefers to be at [facility] secondary to proximity to home. Kindly see telephonic nurse case manager's note for further details. Insulin-dependent [...] original. Progress Notes by Marilyn Kate at 03/07/188 Author: Marilyn Kate Service: Specialist Author Type: Mold Filling Operator Filed: 03/07/18 1726 Date of Service: 03/07/181717 Status: Signed Roll Builder: Marilyn Kate () CP visit per pt request. Matthias is [...] and l isten. Appreciative of CP visit. blemo Julio rosado MD - 03/07/2018 4:12 PM PDT Progress Notes by Julio Viveros MD at 03/07/18 1612 Author: Julio Viveros MD Service: Hospitalist Author Type: Physician Filed: 03/07/18 1700 Date of Service: 03/07/18 1612 Status: Signed Roll Builder: Julio Viveros MD (Physician) [facility] Service: Hospitalist Progress Note Hospital Day: LOS: 0 days Briefly, 53-year-old male with extensive past medical history of morbid obesity, type II di abetes mellitus, hyperlipidemia and hypertension who presents to [facility] from [facility] for right-sided headache found to have acute [...] Case Management by MELISSA Padilla at 03/07/18 0068 Author: MELISSA Padilla Service: (none) Author Type: Siebel Developer Filed: 03/07/18 1140 Date of Service: 03/07/18 1137 Status: Signed Roll Builder: MELISSA Padilla (Siebel Developer) 03/07/18 1130 Discharge Planning Evaluation Admitting Diagnosis CVA Readmission No Living Arrangements Spouse/significant other (Milady [phone]) Support Systems Spouse/significant other Type of Residence Private residence House type House-1 story Steps to enter (0 steps) Independent with ADL's Yes Independent with Mobility Yes Mental Status Oriented Prior functional status Patient is indpt in ADLs and IADLs (drives), 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 Denies outpt medical services such as dialysis, home infusion, home health, coumadin clinic , or home oxygen.Pt is aware CM will follow for D/C needs as they arise during hospitaliza tion. Patient reports he has been able to ambulate around the hospital room, still feels as thoug h his right leg is weak. Patient's PCP is: MYRA KARIMI Patient's insurance: [employer] Coverage concerns: no Medication coverage/concerns: [...] Author: MELISSA Padilla Service: (none) Author Type: Siebel Developer Filed: 03/07/18 0916 Date of Service: 03/07/18854 Status: Signed Roll Builder: MELISSA Padilla (Siebel Developer) CM attempted to meet with patient for full assessment, however, patient sleeping. CM will return at a later time. MELISSA Padilla onver alma Transaction, Provider Unknown - 03/07/2018 3:27 AM PDT Progress Notes by Fabio Madera RPH at 03/07/18326 Author: Fabio Madera RPH Service: Pharmacy Author Type: Pharmacist Filed: 03/07/18326 Date of Service: 03/07/18326 Status: Signed Roll Builder: Fabio Madera RPH (Pharmacist) Note ccl 120.4ml/min meds reviewed pharmacy will follow [facility] 0327 docume nted in this encounter H&P Notes Brooklynn Lew DO - 03/07/2018 2:15 AM PDTFormatting of this note might be different from t he original. H&P by Brooklynn Lew DO at 03/07/18214 Author: Brooklynn Lew DO Service: Hospitalist Author Type: Physician Filed: 03/07/18 0452 Date of Service: 03/07/18214 Status: Signed Roll Builder: Brooklynn Lew DO (Physician) [facility] Service: Hospitalist Admission History & Physical Date of Admission: 03/06/2018 Primary Care Physician: MYRA KARIMI Reason for Admission: Small subacute to early chronic infarcts with evidence of mild petec hial hemorrhage History Obtained From: patient, chart review CHIEF COMPLAINT: Chief Complaint Patient presents with Headache HISTORY OF PRESENT ILLNESS The patient is a 53 y.o. male with significant past medical history of extreme obesity, DM II, dyslipidemia, HTN who presents as a transfer from [facility] with possible stroke. Amber n complain at the outside facility was COOK located in the right parietal area. Onset 4 days a go. Associated symptoms dizziness, unstable gait, unable to write his name, blurry vision, d ouble vision now resolved, mild confusion, right leg weakness, fever x 2 days of 101 which r esolved with aspirin. Patient denies CP, palpitations, nausea, vomiting, COOK trauma, fever, l eg swelling, dysphagia, cough, was able to drive. Patient reports compliance with his medica tions. No history of stroke. Weight loss of 3 lbs in the last 2 weeks. ED treatment: Tylenol and labetalol [facility] data: Blood glucose 585 Chest x-ray no acute cardiopulmonary disease. Emergency Department treatment IV fluids, insulin [address] scan head without contrast :1. 8 mm round lesion within the posterior left cerebellum wh ich could represent a subacute hematoma, cavernoma, or other such lesion. MRI was recommende d 2. Mild chronic microangiopathic white matter changes REVIEW OF SYSTEMS As above, a total of 12 systems reviewed, o/w unremarkable Past Medical History Diagnosis Date Diabetes mellitus, type 2 (HCC) Hyperlipidemia Hypertension Hypothyroidism Past Surgical History Procedure Laterality Date GASTRIC RESTRICTION SURGERY NECK SURGERY THYROIDECTOMY Allergies Allergen Reactions Codeine Rash Gadolinium Derivatives Other (See Comments) Sneezing and some redness around the eyes after the administration of 25 mL MRI contrast (Multihance) on 03/06/18 Prior to Admission medications Medication Patient is not sure of his medications Sig Start Date End Date Taking? Authorizing Provide r aspirin 81 MG tablet Take 81 mg by mouth. Historical Provider TOMAS MICROLET LANCETS lancets Use as directed 07/19/12 Historical Provider Calcium Citrate-Vitamin D (CITRACAL PETITES/VITAMIN D) 200-250 MG-UNIT TABS Take by mouth. 01/24/13 Historical Provider cloNIDine (CATAPRES) 0.1 MG tablet Take by mouth. Historical Provider cyanocobalamin 1000 MCG/ML injection Inject into the muscle. Historical Provider cyclobenzaprine (FLEXERIL) 10 MG tablet Take 10 mg by mouth. 06/02/16 Historical Provider ergocalciferol (DRISDOL) 54533 UNITS capsule Take 50,000 Units by mouth. 07/19/12 Historic al Provider FLUoxetine (PROZAC) 20 MG capsule Take by mouth. Historical Provider Glucose Blood (TOMAS BREEZE 2 TEST) DISK Use as directed 07/19/12 Historical Provider insulin glargine (LANTUS) 100 UNIT/ML injection Inject into the skin. 04/14/13 Historical Provider insulin lispro, human, (HUMALOG) 100 UNIT/ML injection Inject into the skin. 04/14/13 His torical Provider insulin lispro, human, (HUMALOG) 100 UNIT/ML injection Use 2 units for 141-200, 4 units for 201-250, 6 units for 251-300, nj your doctor if > Indications: TYPE 2 DIABETES MELLITUS Historical Provider lactulose (CHRONULAC) 10 GM/15ML solution Take 30 mLs by mouth. 06/02/16 Historical Provid er levothyroxine (SYNTHROID) 200 MCG tablet Take 200 mcg by mouth. Historical Provider levothyroxine (SYNTHROID) 50 MCG tablet Take 50 mcg by mouth. 07/19/12 Historical Provider losartan-hydrochlorothiazide (HYZAAR) 100-25 MG per tablet Take by mouth. Historical Pr ovider metFORMIN (GLUCOPHAGE-XR) 500 MG 24 hr tablet Take by mouth. 04/14/13 Historical Provider metFORMIN (GLUMETZA) 1000 MG (MOD) 24 hr tablet Take 1,000 mg by mouth. n Historical Prov ider metoprolol (LOPRESSOR) 100 MG tablet Take by mouth. Historical Provider metoprolol (TOPROL XL) 200 MG 24 hr tablet Take 200 mg by mouth. 07/19/12 y Historical Prov ider Multiple Vitamin (MULTIVITAMIN) capsule Take by mouth. 04/14/13 Historical Provider oxycodone 10 MG tablet Take 5-20 mg by mouth. 06/02/16 Historical Provider Pediatric Multiple Vit-C-FA (CHILDRENS CHEWABLE VITAMINS) chewable tablet Take by mouth. Historical Provider polyethylene glycol (GLYCOLAX) powder Take by mouth. 04/14/13 Historical Provider rosuvastatin (CRESTOR) 40 MG tablet Take 40 mg by mouth. 07/19/12 Historical Provider Social History Social History Marital status: Spouse name: N/A Number of children: N/A Years of education: N/A Social History Main Topics Smoking status: Never Smoker Smokeless tobacco: Never Used Alcohol use Yes Comment: rare Drug use: Unknown Sexual activity: Not Asked Other Topics Concern None Social History Narrative None Family History Problem Relation Age of Onset Diabetes type II Maternal Aunt Thyroid disease Neg Hx PHYSICAL EXAM BP 140/82 | Pulse 86 | Temp 97.1 F (36.2 C) (Oral) | Resp 16 | Wt (!) 199.6 kg (440 lb) | SpO2 90% | BMI 64.98 kg/m General Appearance: A & O x 3, no distress, appears stated age. Extreme obesity Head: Normocephalic, without obvious abnormality, atraumatic Eyes: PERRL, conjunctiva/corneas clear, EOM's intact. Ears: Normal external ear canals, no otorrhea Nose: Nares normal, no drainage or sinus tenderness Throat: Lips, mucosa, and tongue normal; gums normal Neck: Supple, symmetrical, trachea; no carotid bruit or JVD Back: Symmetric, no curvature, ROM normal, no CVA tenderness Lungs: decreased breath sounds, respirations unlabored Chest Wall: No tenderness or deformity Heart: Regular rate and rhythm, S1 and S2 normal, no murmur, rub or gallop Abdomen: Soft, non-tender, bowel sounds active all four quadrants, no masses, no organo megaly Genitalia: Deferred Rectal: Deferred Extremities: Upper extremities no clubbing/ cyanosis/ erythema Lower extremities atraum atic, no cyanosis or edema Pulses: 2+ and symmetric all extremities Skin: Skin warm, texture and turgor normal, no rashes or lesions Lymph nodes: No gross lymphadenopathy. Neurologic: Psychiatric: CNII-XII intact, M/S 5/5+ x 3, RUE 4/5+no pronator drift, no facial droop, n o dysmetria. Speech fluent. Gait not tested Affect/ mood normal, behavior and judgement normal DATA Results for orders placed or performed during the hospital encounter of 03/06/18 (from the past 24 hour(s)) POCT glucose Collection Time: 03/06/18 7:27 PM Result Value Ref Range GLUCOSE,POC SCREEN 308 (H) 65 - 99 mg/dL Cardiac Panel Collection Time: 03/06/18 7:40 PM Result Value Ref Range WBC 7.75 3.80 - 11.00 K/uL RBC 4.82 4.20 - 5.70 M/uL HGB 14.3 13.2 - 17.0 g/dL HCT 43.1 39.0 - 50.0 % MCV 89.4 80.0 - 100.0 fl MCH 29.7 27.0 - 34.0 pg MCHC 33.2 32.0 - 35.5 g/dL RDW SD 44.2 37 - 53 fl PLT 172 150 - 400 K/uL MPV 8.5 fl DIFF TYPE AUTOMATED NEUTROPHILS 71.76 % LYMPHOCYTES 19.23 % MONOCYTES 6.33 % EOSINOPHILS 1.99 % BASOPHILS 0.69 % NEUTROPHILS ABS 5.56 1.90 - 7.40 K/uL LYMPHOCYTES ABS 1.49 1.00 - 3.90 K/uL MONOCYTES ABS 0.49 0.00 - 0.80 K/uL EOSINOPHILS ABS 0.15 0.00 - 0.50 K/uL BASOPHILS ABS 0.05 0.00 - 0.10 K/uL SODIUM 137 135 - 145 mmol/L POTASSIUM 3.9 3.5 - 4.9 mmol/L CHLORIDE 103 99 - 109 mmol/L CO2 24 23 - 32 mmol/L ANION GAP AGAP 15 5 - 20 mmol/L GLUCOSE 314 (H) 65 - 99 mg/dL BUN 18 8 - 25 mg/dL CREATININE 1.2 0.70 - 1.30 mg/dL BUN/CREAT 15 CALCIUM 8.6 8.5 - 10.5 mg/dL TOTAL PROTEIN 7.2 6.3 - 8.2 g/dL Albumin 2.8 (L) 3.6 - 5.0 g/dL GLOBULIN 4.4 1.3 - 4.9 g/dL A/G 0.7 (L) 1.0 - 2.4 TBIL 0.6 0.1 - 1.5 mg/dL ALK PHOS 106 35 - 115 U/L AST 24 10 - 45 U/L ALT 18 10 - 65 U/L EGFR >60 >60 mL/min/1.73m2 CPK 117 55 - 400 U/L INR 0.9 APTT 26 23 - 32 seconds MMB 1.4 0.5 - 3.6 ng/mL CK-MB Index 1.2 Troponin I Collection Time: 03/06/18 7:40 PM Result Value Ref Range TROPONIN I <0.020 0.00 - 0.10 ng/mL POCT glucose Collection Time: 03/06/18 11:55 PM Result Value Ref Range GLUCOSE,POC SCREEN 317 (H) 65 - 99 mg/dL Mri Brain W Wo And Mra Head [...] Mar 06 2018 10:30PM Referring Provider Line: [phone] ID: [id number] EKG @ 19:18 Sinus rhythm with a rate of 88 bpm. LAFB present. Anterior inferior Q waves No previous for comparison. No ST changes concerning for acute ischemia Normal QRS, intervals, and QTc Interpreted by Jemal Rogers DO at time of service. ASSESSMENT & PLAN Principal Problem: CVA (cerebral vascular accident) (HCC): -Small subacute to early chronic infarcts, 2 small patchy subcentimeter foci of signal abno rmality in the inferior left cerebellum which demonstrate evidence of mild petechial hemorrh age and contrast enhancement -Likely started 4 days ago -Neuro checks Q4,Telemetry monitoring -2D echo, Bilateral carotid dopplers. -PT/OT and ST to evaluate and treat. -Patient was educated on his risk factors for stroke and the need to be complaint with velia atment plan for secondary risk factor modification -Keep SBP less than 140 -No aspirin or anticoagulation due to petechiae hemorrhage -Bedside swallow evaluation order Active Problems: Type 2 diabetes mellitus with hyperglycemia (HCC): -Resume home dose Lantus -Insulin sliding scale -ADA diet -Hemoglobin A1c Dyslipidemia: -High dose statin BMI 60.0-69.9, adult (HCC): -High risk of from weight alone -Advised on diet and exercise Hypothyroidism: -Levothyroxine 200 mcg HTN: -Not sure of his BB dose -Lopressor 25 bid Medications reconciliation to be completed in the morning GI and SCD's BROOKLYNN LEW DO 03/07/2018 2:23 AM documented in this enco unter Consult Notes Maribell Carter RN - 03/07/2018 2:26 PM PDTFormatting of this note might be differen t from the original. Consults by Maribell Carter RN at 03/07/18 2460 Author: Maribell Carter RN Service: (none) Author Type: Registered Nurse Filed: 03/07/18 4587 Date of Service: 03/07/181425 Status: Signed Roll Builder: Maribell Carter RN (Registered Nurse) Consult Orders: 1. Inpatient consult to special education paraeducator [[id number]] ordered by Julio Viveros MD at 01/20 7888 Inpatient Director Of Patient Safety note. Pt admitted with CVA. Home DM medications are Lantus insulin 80-90 units nightly, Humalog 1 2units with meals, Humalog correctional scale, metformin, and Victoza. Pt does not know the dose of Victoza. His A1C is 14.6, an average BG of 372. Currently, pt is on an insulin drip with Endotool dosing d/t continued elevated BG. Met with pt who states that he takes his insulin and other DM medications regularly. He sta hina he checks his BG 2-3 times daily, mostly morning and night. He says that his blood sugar s have never been as high as they are here at the hospital. He states his A1C was as low as 9 in the recent past (no specific time given). He has been working with his MD on a weight l oss program and has lost 50+ pounds so far. He tries to exercise, walking around the block t wice daily. He tries to eat right and cut out the carbs. Pt educated on A1C goal of <7, and his increased risk of further strokes. He has had outpatient DM education but states they froylan alejandra went over what he already new. Pt informed of studies showing improved outcomes for pts w lenny attend DM education yearly. Pt states he will check into this when he gets home. He has e nough supplies and medications at this time. Pt stated understanding of the above informatio n. Maribell Carter RN, Inpatient Director Of Patient Safety 03/07/2018 2:42 PM Blake, MD Kenia - 03/07/2018 1:21 PM PDT Consult* by Kenia Haynes MD at 03/07/18 1321 Author: Kenia Haynes MD Service: Neurology Author Type: Physician Filed: 03/07/18 1612 Date of Service: 03/07/18 1321 Status: Signed Roll Builder: Kenia Haynes MD (Physician) [facility] Service: Neurology Initial Consult Note Date of Admission: 03/06/2018 Reason for Consultation: Numbness and imbalance Requesting Physician: Julio Viveros MD, Hospitalist History Obtained From: chart review, discussed with Julio Viveros MD, patient CHIEF COMPLAINT: Chief Complaint Patient presents with Headache HISTORY OF PRESENT ILLNESS The patient is a 53 y.o.malewith significant past medical history of BMI 67, DM II, dys lipidemia, HTN [facility] He repo rts numbness of hands, difficulty writing and imbalance with headaches started about 4-5 day s ago. He was evaluated at local hospital and transferred to [facility] for further vishnu luation of possible stroke. He reports symptoms improved over time, he is a minimal right hand and numbness at times. Juliette patel does have a severe peripheral neuropathy due to his diabetes. He denies any clear focal we akness, no vision change, no speech difficulty denies dysphagia. Head CT and MRI brain revealed no evidence of acute stroke. MRI evidence of possible subacu te left cerebellar infarct. No evidence of acute hemorrhage. Carotid Doppler study showed no evidence of hemodynamically significant stenosis. Echocardiogram revealed no evidence of significant structural abnormality. REVIEW OF SYSTEMS No ongoing headaches. Past Medical History Diagnosis Date Diabetes mellitus, type 2 (HCC) Hyperlipidemia Hypertension Hypothyroidism Past Surgical History Procedure Laterality Date GASTRIC RESTRICTION SURGERY NECK SURGERY THYROIDECTOMY Allergies Allergen Reactions Codeine Rash Gadolinium Derivatives Other (See Comments) Sneezing and some redness around the eyes after the administration of 25 mL MRI contrast (Multihance) on 03/06/18 Prescriptions Prior to Admission Medication Sig Dispense Refill Last Dose aspirin 81 MG tablet Take 81 mg by mouth. Taking Peerius MICROLET LANCETS lancets Use as directed Taking Calcium Citrate-Vitamin D (CITRACAL PETITES/VITAMIN D) 200-250 MG-UNIT TABS Take by mo uth. Taking cloNIDine (CATAPRES) 0.1 MG tablet Take by mouth. Taking cyanocobalamin 1000 MCG/ML injection Inject into the muscle. Taking cyclobenzaprine (FLEXERIL) 10 MG tablet Take 10 mg by mouth. Taking ergocalciferol (DRISDOL) 21496 UNITS capsule Take 50,000 Units by mouth. Taking FLUoxetine (PROZAC) 20 MG capsule Take by mouth. Taking Glucose Blood (TOMAS BREEZE 2 TEST) DISK Use as directed Taking insulin glargine (LANTUS) 100 UNIT/ML injection Inject 80 Units into the skin. Taking insulin lispro, human, (HUMALOG) 100 UNIT/ML injection Inject into the skin. Taking insulin lispro, human, (HUMALOG) 100 UNIT/ML injection Use 2 units for 141-200, 4 units for 201-250, 6 units for 251-300, nj your doctor if > Indications: TYPE 2 DIABETES MELLIT US Taking lactulose (CHRONULAC) 10 GM/15ML solution Take 30 mLs by mouth. Taking levothyroxine (SYNTHROID) 200 MCG tablet Take 200 mcg by mouth. Taking levothyroxine (SYNTHROID) 50 MCG tablet Take 50 mcg by mouth. Taking losartan-hydrochlorothiazide (HYZAAR) 100-25 MG per tablet Take by mouth. Taking metFORMIN (GLUCOPHAGE-XR) 500 MG 24 hr tablet Take by mouth. Taking metFORMIN (GLUMETZA) 1000 MG (MOD) 24 hr tablet Take 1,000 mg by mouth. Taking metoprolol (LOPRESSOR) 100 MG tablet Take by mouth. Taking metoprolol (TOPROL XL) 200 MG 24 hr tablet Take 200 mg by mouth. Taking Multiple Vitamin (MULTIVITAMIN) capsule Take by mouth. Taking oxycodone 10 MG tablet Take 5-20 mg by mouth. Taking Pediatric Multiple Vit-C-FA (CHILDRENS CHEWABLE VITAMINS) chewable tablet Take by mout h. Taking polyethylene glycol (GLYCOLAX) powder Take by mouth. Taking rosuvastatin (CRESTOR) 40 MG tablet Take 40 mg by mouth. Taking Scheduled Medications atorvastatin 80 mg Oral Nightly famotidine 20 mg Oral BID Or famotidine 20 mg Intravenous BID FLUoxetine 20 mg Oral Daily heparin (porcine) 5000 unit/0.5mL 5,000 Units Subcutaneous 2 times per day levothyroxine 200 mcg Oral QAM AC metoprolol 25 mg Oral BID sodium chloride (PF) 10 mL Intravenous Q8H sodium chloride 10 mL Intravenous Q8H Continuous Infusions dextrose dextrose 5 % and 0.45 % NaCl 125 mL/hr at 03/07/18 1215 insulin regular 1 unit/mL 15 Units/hr (03/07/18 1215) sodium chloride (IV) Stopped (03/07/18 1241) PRN Medications acetaminophen OR acetaminophen, dextrose, dextrose, dextrose, dextrose, dextrose, gluca sienna, glucagon, insulin regular 1 unit/mL, ondansetron OR ondansetron, polyethylene glyco l Family History Problem Relation Age of Onset Diabetes type II Maternal Aunt Thyroid disease Neg Hx Social History Social History Marital status: Spouse name: N/A Number of children: N/A Years of education: N/A Occupational History Not on file. Social History Main Topics Smoking status: Never Smoker Smokeless tobacco: Never Used Alcohol use Yes Comment: rare Drug use: Unknown Sexual activity: Not on file Other Topics Concern Not on file Social History Narrative No narrative on file History Smoking Status Never Smoker Smokeless Tobacco Never Used History Alcohol Use Yes Comment: rare PHYSICAL EXAM Vital Signs: BP 135/77 (BP Location: Right upper arm) | Pulse 73 | Temp 98.4 F (36.9 C) (Oral) | Resp 19 | Ht 1.727 m (5' 8") | Wt (!) 200 kg (440 lb 14.7 oz) | SpO2 95% | BMI 67.04 kg/ m Temp: [97.1 F (36.2 C)-99.7 F (37.6 C)] 99.1 F (37.3 C) (03/07 1547) BP: (135-175)/(67-92) 135/77 (03/07 1109) Heart Rate: [73-95] 73 (03/07 110) Resp: [16-26] 19 (03/07 110) SpO2: [90 %-96 %] 95 % (03/07 1547) Height: [172.7 cm (5' 8")] 172.7 cm (5' 8") (03/07 304) Weight: [199.6 kg (440 lb)-200 kg (440 lb 14.7 oz)] 200 kg (440 lb 14.7 oz) (03/07 304) BMI (Calculated): [67.2] 67.2 (03/07 304) Neurological Examination: Neurological Examination: Alert and oriented times three. Fluent speech. Following commands. Provide medical history without difficulty. Neck supple. CN: II-XII grossly intact. Of note, PERRLA, EOMI, visual field full to confrontation. S ensory symmetrical to pinprick, light touch and temperature. No facial asymmetry or weakness . Hearing symmetrical. Tongue midline. Motor: Normal muscle tone and bulk. No fasciculation. Motor strength 5/5 throughout with out pronator drift. Motor integration: No dysmetria with finger to nose tests. No abnormal movement. Gait: Ambulate with assistance in the hallway. EKG: CBC: Lab Results Component Value Date WBC 7.61 03/07/2018 RBC 4.56 03/07/2018 HGB 13.9 03/07/2018 HCT 41.1 03/07/2018 MCV 90.1 03/07/2018 MCH 30.6 03/07/2018 MCHC 33.9 03/07/2018 RDW 45.5 03/07/2018 PLT 189 03/07/2018 MPV 8.6 03/07/2018 DIFFTYPE AUTOMATED 03/07/2018 CMP: Lab Results Component Value Date NA 137 03/07/2018 K 3.6 03/07/2018 CL 101 03/07/2018 CO2 24 03/07/2018 ANIONGAP 16 03/07/2018 GLUF 354 (H) 03/07/2018 BUN 18 03/07/2018 CREATININE 1.2 03/07/2018 BCR 15 03/07/2018 CA 8.6 03/07/2018 PROT 7.1 03/07/2018 ALB 2.8 (L) 03/07/2018 GLOB 4.3 03/07/2018 BILITOT 0.6 03/07/2018 ALP 105 03/07/2018 AST 16 03/07/2018 ALT 17 03/07/2018 EGFR >60 03/07/2018 HDL CHOL Date Value Ref Range Status 03/07/2018 36 (L) >40 mg/dL Final CHOLESTEROL Date Value Ref Range Status 03/07/2018 264 (H) <200 mg/dL Final Lab Results Component Value Date LDL 154 (H) 03/07/2018 No results found for: ALBCSF, CEFTRIAXONECSF No results found for: GLUCCSF, PROTEINCSF, RBCCSF, WBCCSF Us Carotid Doppler, Bilateral Result Date: 03/07/2018 No hemodynamically significant stenoses in the bilateral carotid arteries. Validated veloci ty measurements with angiographic measurements and velocity criteria are extrapolated from d iameter data as defined by the Society of Radiologists in Ultrasound Consensus Conference Ra diology 2003; 229;340-346. RADIA Electronically signed by Buck Faith MD on Mar 07 2018 7:45AM Referring Provider Line: [phone] ID: [id number] Mri Brain W Wo And [...] Mar 06 2018 10:30PM Referring Provider Line: [phone] ID: [id number] Echo Cardiac Adult With Bubble [...] tao bubble study seen in slide 35 PROBLEM LIST Principal Problem: CVA (cerebral vascular accident) (HCC) Active Problems: BMI 60.0-69.9, adult ([facility]) Type 2 diabetes mellitus with hyperglycemia ([facility]) Hypothyroidism Dyslipidemia Benign essential hypertension ASSESSMENT & PLAN The patient is a 53-year-old male who has a significant past medical history including BMI 67, DM II, dyslipidemia, HTN who was transferred from local hospital to [facility] for evaluation of possible stroke. His symptoms started approximately 4-5 days ago with no nspecific symptoms including headaches, bilateral hand numbness as well as imbalance. His MR I of the brain revealed no evidence for acute stroke, possible left cerebellum subacute infa rct. His symptoms progressively improving. Reccommodations: 1. Continue aspirin and antilipid agent for secondary stroke prevention. Discussed with the patient about indication, risk of increasing bleeding and side effects 2: Better risk factors modification (better DM, HTN and weight control) and life style bateman ge to reduced the risk of recurrent stroke. 3. ER when he is given for any new neurological symptoms. 4. Continue PT/OT. I spent more than 50% of this visit counseling the patient about the clinical course of graham oing neurological symptoms and answering a number of questions. Please call for any new neurological changes or questions. Code Status: Full Code Primary Care Physician: MYRA KARIMI Thank you for allowing me to participate in the care of this patient. I have discussed my recommendations with the attending physician. SHARON HAYNES MD 03/07/2018 Wing Joan Rosales MD - 0 03/07/2018 7:52 AM PDT Consult* by Wing Joan Humphrey MD at 03/07/18 075 Author: Wing Joan Humphrey MD Service: (none) Author Type: Physician Filed: 03/07/18 1200 Date of Service: 03/07/18751 Status: Signed Roll Builder: Wing Joan Humphrey MD (Physician) [facility] Service: Physical Medicine & Rehab Initial Consult Note Date of Admission: 03/06/2018 Reason for Consultation: Consideration for IPR Requesting Physician: Hospitalist History Obtained From: patient, chart review CHIEF COMPLAINT: CVA HISTORY OF PRESENT ILLNESS The patient is a 53 y.o. male with significant past medical history of extreme obesity, DM II, dyslipidemia, HTN who presents as a transfer from [facility] with possible stroke. Amber n complain at the outside facility was COOK located in the right parietal area. Onset 4 days a go. Associated symptoms dizziness, unstable gait, unable to write his name, blurry vision, d ouble vision now resolved, mild confusion, right leg weakness, fever x 2 days of 101 which r esolved with aspirin. Patient denies CP, palpitations, nausea, vomiting, COOK trauma, fever, l eg swelling, dysphagia, cough, was able to drive. Patient reports compliance with his medica tions. No history of stroke. Weight loss of 3 lbs in the last 2 weeks. The patient was admitted. Head CT and MRI has been unremarkable. Consultation is being requested to determine his IPR needs and potential. REVIEW OF SYSTEMS Review of Systems He reported that headache has resolved He has burning sensation of the right thumb with numbness of the hand He has mild weakness of the right leg. Past Medical History Diagnosis Date Diabetes mellitus, type 2 (HCC) Hyperlipidemia Hypertension Hypothyroidism Past Surgical History Procedure Laterality Date GASTRIC RESTRICTION SURGERY NECK SURGERY THYROIDECTOMY Allergies Allergen Reactions Codeine Rash Gadolinium Derivatives Other (See Comments) Sneezing and some redness around the eyes after the administration of 25 mL MRI contrast (Multihance) on 03/06/18 Prescriptions Prior to Admission Medication Sig Dispense Refill Last Dose aspirin 81 MG tablet Take 81 mg by mouth. Taking TOMAS MICROLET LANCETS lancets Use as directed Taking Calcium Citrate-Vitamin D (CITRACAL PETITES/VITAMIN D) 200-250 MG-UNIT TABS Take by mo uth. Taking cloNIDine (CATAPRES) 0.1 MG tablet Take by mouth. Taking cyanocobalamin 1000 MCG/ML injection Inject into the muscle. Taking cyclobenzaprine (FLEXERIL) 10 MG tablet Take 10 mg by mouth. Taking ergocalciferol (DRISDOL) 54279 UNITS capsule Take 50,000 Units by mouth. Taking FLUoxetine (PROZAC) 20 MG capsule Take by mouth. Taking Glucose Blood (TOMAS BREEZE 2 TEST) DISK Use as directed Taking insulin glargine (LANTUS) 100 UNIT/ML injection Inject 80 Units into the skin. Taking insulin lispro, human, (HUMALOG) 100 UNIT/ML injection Inject into the skin. Taking insulin lispro, human, (HUMALOG) 100 UNIT/ML injection Use 2 units for 141-200, 4 units for 201-250, 6 units for 251-300, nj your doctor if > Indications: TYPE 2 DIABETES [facility] Taking lactulose (CHRONULAC) 10 GM/15ML solution Take 30 mLs by mouth. Taking levothyroxine (SYNTHROID) 200 MCG tablet Take 200 mcg by mouth. Taking levothyroxine (SYNTHROID) 50 MCG tablet Take 50 mcg by mouth. Taking losartan-hydrochlorothiazide (HYZAAR) 100-25 MG per tablet Take by mouth. Taking metFORMIN (GLUCOPHAGE-XR) 500 MG 24 hr tablet Take by mouth. Taking metFORMIN (GLUMETZA) 1000 MG (MOD) 24 hr tablet Take 1,000 mg by mouth. Taking metoprolol (LOPRESSOR) 100 MG tablet Take by mouth. Taking metoprolol (TOPROL XL) 200 MG 24 hr tablet Take 200 mg by mouth. Taking Multiple Vitamin (MULTIVITAMIN) capsule Take by mouth. Taking oxycodone 10 MG tablet Take 5-20 mg by mouth. Taking Pediatric Multiple Vit-C-FA (CHILDRENS CHEWABLE VITAMINS) chewable tablet Take by mout h. Taking polyethylene glycol (GLYCOLAX) powder Take by mouth. Taking rosuvastatin (CRESTOR) 40 MG tablet Take 40 mg by mouth. Taking Scheduled Medications atorvastatin 80 mg Oral Nightly famotidine 20 mg Oral BID Or famotidine 20 mg Intravenous BID FLUoxetine 20 mg Oral Daily heparin (porcine) 5000 unit/0.5mL 5,000 Units Subcutaneous 2 times per day insulin glargine 80 Units Subcutaneous Nightly insulin lispro (human) 0-10 Units Subcutaneous TID AC insulin lispro (human) 0-5 Units Subcutaneous Nightly levothyroxine 200 mcg Oral QAM AC metoprolol 25 mg Oral BID sodium chloride (PF) 10 mL Intravenous Q8H sodium chloride 10 mL Intravenous Q8H Continuous Infusions dextrose PRN Medications acetaminophen OR acetaminophen, dextrose, dextrose, dextrose, glucagon, glucagon, ondan setron OR ondansetron, polyethylene glycol Family History Problem Relation Age of Onset Diabetes type II Maternal Aunt Thyroid disease Neg Hx SOCIAL HISTORY He lives at home with spouse, no steps in. PHYSICAL EXAM Vital Signs: BP 144/67 (BP Location: Left upper arm) | Pulse 88 | Temp 98.2 F (36.8 C) (Oral) | R lucila 26 | Ht 1.727 m (5' 8") | Wt (!) 200 kg (440 lb 14.7 oz) | SpO2 94% | BMI 67.04 kg/m Physical Exam HEENT: NC/AT; EOMI; face is symmetrical Neck: supple Lung :clear Cardiac: regular Abdo: morbid obesity : male Rectal: deferred MS: Moving all extremities Neuro: alert, speaking well. CN II-XII grossly intact. Right side is a tab weaker than the left. DATA PROBLEM LIST Principal Problem: CVA (cerebral vascular accident) (HCC) Active Problems: BMI 60.0-69.9, adult (HCC) Type 2 diabetes mellitus with hyperglycemia (HCC) Hypothyroidism Dyslipidemia Benign essential hypertension ASSESSMENT & PLAN the patient is a 53 year-old right-handed white male admitted with headache and right sided weakness. Head CT and MRI have been negative for infarct. He has resolution of headaches, but still with reported numbness of the right hand and weakness of the right leg. He will be started with acute therapy evaluation. We'll follow as he progresses. Code Status: Full Code Primary Care Physician: MYRA KARIMI Thank you for allowing me to participate in the care of this patient. Wing Yohana Humphrey MD 03/07/2018 documented in this enco unter ED Notes Jemal Rogers, - 03/06/2018 6:59 PM PDTFormatting of this note might be diff erent from the original. ED Provider Notes by Jemal Rogers DO at 03/06/181858 Author: Jemal Rogers DO Service: Emergency Department Author Type: Physician Filed: 03/07/18221 Date of Service: 03/06/181858 Status: Signed Roll Builder: Jemal Rogers DO (Physician) [facility] Department of Emergency Medicine Pre-arrival Provider: Another ED ([facility]) Provider Name: jose guadalupe Pertinent History and Concerns: went to PCP today, stroke like sxs x 4 days, right side wea kness, left arm numbness, NIHSS negative, no evidence of stroke. unable to do MRI at [facility], obese >400 lbs, 20 ga L wrist. Relevant Labs or Studies: blood glucose 580, down under 400 now. Relevant Medications: 20 U insulin, 2 L saline. Current Reported Vital Signs: 142/80, HR 88, RR 16, sats 99% RA (03/06/18 1600 : Sally Xiao DO) 7:00 PM History of Present Illness Patient Identification Scot Lily Burns is a 53 y.o. male. Patient information was obtained from patient. History/Exam limitations: none. Patient presented to the Emergency Department by: Ambulance Chief Complaint Chief Complaint Patient presents with Headache The patient presents to ED via EMS as a transfer from [facility] [place] with complaints of head ache. Onset of symptoms was 4 days, with an ongoing course since that time. The symptoms are described to be of moderate severity. The patient describes the quality and location of the symptoms as the following: generalized. Patient reports the symptoms started off with bilat eral arm numbness that improved on the left side (mild paresthesias), however the right side worsened to numbness on his right arm. Patient reports he was seen by his PCP this morning and referred here for an MRI due to stroke like symptoms. Patient reports he is having diffi culty writing, right arm paresthesias, mild confusion ("foggy"), and patient reports his wif amanda keeps complaining of his slurred speech. Patient reports he had a CT with contrast this mo rning. Patient denies nausea, vomiting, or any other symptoms at this time. PCP: MYRA KARIMI Past Medical History Diagnosis Date Diabetes mellitus, type 2 (HCC) Hyperlipidemia Hypertension Hypothyroidism Past Surgical History Procedure Laterality Date GASTRIC RESTRICTION SURGERY NECK SURGERY THYROIDECTOMY Prior to Admission medications Medication Sig Start Date End Date Taking? Authorizing Provider aspirin 81 MG tablet Take 81 mg by mouth. Historical Provider TOMAS MICROLET LANCETS lancets Use as directed 07/19/12 Historical Provider Calcium Citrate-Vitamin D (CITRACAL PETITES/VITAMIN D) 200-250 MG-UNIT TABS Take by mouth. 01/24/13 Historical Provider cloNIDine (CATAPRES) 0.1 MG tablet Take by mouth. Historical Provider cyanocobalamin 1000 MCG/ML injection Inject into the muscle. Historical Provider cyclobenzaprine (FLEXERIL) 10 MG tablet Take 10 mg by mouth. 06/02/16 Historical Provider ergocalciferol (DRISDOL) 76530 UNITS capsule Take 50,000 Units by mouth. 07/19/12 Historic al Provider FLUoxetine (PROZAC) 20 MG capsule Take by mouth. Historical Provider Glucose Blood (Peerius BREEZE 2 TEST) DISK Use as directed 07/19/12 Historical Provider insulin glargine (LANTUS) 100 UNIT/ML injection Inject into the skin. 04/14/13 Historical Provider insulin lispro, human, (HUMALOG) 100 UNIT/ML injection Inject into the skin. 04/14/13 His torical Provider insulin lispro, human, (HUMALOG) 100 UNIT/ML injection Use 2 units for 141-200, 4 units for 201-250, 6 units for 251-300, nj your doctor if > Indications: TYPE 2 DIABETES MELLITUS Historical Provider lactulose (CHRONULAC) 10 GM/15ML solution Take 30 mLs by mouth. 06/02/16 Historical Provid er levothyroxine (SYNTHROID) 200 MCG tablet Take 200 mcg by mouth. Historical Provider levothyroxine (SYNTHROID) 50 MCG tablet Take 50 mcg by mouth. 07/19/12 Historical Provider losartan-hydrochlorothiazide (HYZAAR) 100-25 MG per tablet Take by mouth. Historical Pr ovider metFORMIN (GLUCOPHAGE-XR) 500 MG 24 hr tablet Take by mouth. 04/14/13 Historical Provider metFORMIN (GLUMETZA) 1000 MG (MOD) 24 hr tablet Take 1,000 mg by mouth. Historical Provi corie metoprolol (LOPRESSOR) 100 MG tablet Take by mouth. Historical Provider metoprolol (TOPROL XL) 200 MG 24 hr tablet Take 200 mg by mouth. 07/19/12 Historical Provi corie Multiple Vitamin (MULTIVITAMIN) capsule Take by mouth. 04/14/13 Historical Provider oxycodone 10 MG tablet Take 5-20 mg by mouth. 06/02/16 Historical Provider Pediatric Multiple Vit-C-FA (CHILDRENS CHEWABLE VITAMINS) chewable tablet Take by mouth. Historical Provider polyethylene glycol (GLYCOLAX) powder Take by mouth. 04/14/13 Historical Provider rosuvastatin (CRESTOR) 40 MG tablet Take 40 mg by mouth. 07/19/12 Historical Provider Allergies Allergen Reactions Codeine Rash Gadolinium Derivatives Other (See Comments) Sneezing and some redness around the eyes after the administration of 25 mL MRI contrast (Multihance) on 03/06/18 Social History Social History Marital status: Spouse name: N/A Number of children: N/A Years of education: N/A Occupational History Not on file. Social History Main Topics Smoking status: Never Smoker Smokeless tobacco: Never Used Alcohol use Yes Comment: rare Drug use: Unknown Sexual activity: Not on file Other Topics Concern Not on file Social History Narrative No narrative on file Family History Problem Relation Age of Onset Diabetes type II Maternal Aunt Thyroid disease Neg Hx Review of Systems Constitutional: Negative for fever, chills Eyes: Negative for vision changes Nose: Negative for congestion Throat: Negative for sore throat CV/Resp: Negative for chest pain, [id number], cough GI: Negative for abdominal pain, nausea, vomiting, or diarrhea : Negative for urinary problems Musculoskeletal: Negative for back pain, joint pain Skin: Negative for rash Neuro/Psych: Positive for headache, bilateral arm paresthesias. Leg paresthesais Endo/heme/Lymph: Negative for easy bruising All other systems reviewed and negative except as noted. Physical Exam BP 157/87 (BP Location: Right forearm) | Pulse 95 | Temp 99.7 F (37.6 C) (Oral) | Re sp 18 | Wt (!) 199.6 kg (440 lb) | SpO2 95% | BMI 64.98 kg/m Vital signs interpretation: hypertensive, otherwise WNL. Pulse Oximetry interpretation: Normal General: Alert, in no apparent distress Eyes: Normal inspection, PERRLA, EOMI ENT: MMM Neck: Normal inspection Cardiovascular: Rate and rhythm normal No murmurs Respiratory: Breath sounds normal bilaterally No rales, wheezing or rhonchi Abdomen: Soft, non-tender, non-distended, morbidly obese No guarding or rebound Genitourinary: Deferred Rectal exam: Deferred Back: Normal inspection Extremities: No edema Distal pulses intact Skin: Color normal Warm and dry Chronic lower extremity skin changes No rash Neuro: Alert, no AMS No gross motor/sensory deficits Numbness of the entire right upper extremity Normal finger to nose Normal leg raise No pronator drift NIHSS-1 for paresthesias of the RUE Medical Decision Making and Emergency Department Course ED Department Course Patient presents to ED with complaints of headache. My DDx includes, but is not limited to: TIA, stroke, hemorrhage, vs other. Will order labs, CT, MRI, and reevaluate the patient. After review of lab and XR, and re-evaluation of the patient, I believe patient is appropri ate for admission. Will discuss plan with hospitalist template reproduction technician and continue care in the ED un til care is assumed by hospitalist team. 7:08 PM. Patient reevaluation. Patient is stable and feeling better at this time. I discuss ed all ED results and my recommendation for admission with the patient. Patient understands ans agrees to be admitted. All questions and concerns addressed. Will admit pt at this time and place a call out to the hospitalist. 8:21 PM Cardiac Panel resulted with hyperglycemia (314), decreased Albumin (2.8), and decre ased A/G (0.7). 10:34 PM MRI of the brain and MRA of head resulted with no acute intracranial abnormality. There is no acute infarct. There are 2 small patchy subcentimeter foci of signal abnormality in the inferior left cerebellum which demonstrate evidence of mild petechial hemorrhage and contrast enhancement. These are compatible with small subacute to early chronic infarcts. T here is no mass effect. Mild chronic microvascular change. No intracranial mass lesion, mass effect, or hydrocephalus. MRA HEAD: Unremarkable MRA of intracranial circulation. No evidence of aneurysm or signific ant stenosis 11:[address] Earl neurosurgeon, about patient history and exam. Patient cook s had symptoms for 4-5 days of symptoms with no edema or mass effect. Dr. Earl agrees with admission to the floor not the ICU. She does not think the pt has anything neurosurgical a nd recommended consultation with neurology if further consultation is needed. 11:56 PM Per nurse, patient is feeling dizzy with a COOK. Patient's blood sugar is 317. Will give tylenol. 12:51 AM I have discussed the patient's case with Dr. Lew, Hospitalist at this time who a ccepts the patient for admission. Records Reviewed Old medical records. Nursing notes. [place] [facility] [place] complaints. Laboratory Evaluation Results Procedure Component Value Ref Range Date/Time Troponin I [[id number]] Collected: 03/06/181939 Order Status: Completed Updated: 03/07/18152 TROPONIN I <0.020 0.00 - 0.10 ng/mL POCT glucose [[id number]] Order Status: Sent Cardiac Panel [[id number]] (Abnormal) Collected: 03/06/181939 Order Status: Completed Updated: 03/06/182020 WBC 7.75 3.80 - 11.00 K/uL RBC 4.82 4.20 - 5.70 M/uL HGB 14.3 13.2 - 17.0 g/dL HCT 43.1 39.0 - 50.0 % MCV 89.4 80.0 - 100.0 fl MCH 29.7 27.0 - 34.0 pg MCHC 33.2 32.0 - 35.5 g/dL RDW SD 44.2 37 - 53 fl PLT 172 150 - 400 K/uL MPV 8.5 fl DIFF TYPE AUTOMATED NEUTROPHILS 71.76 % LYMPHOCYTES 19.23 % MONOCYTES 6.33 % EOSINOPHILS 1.99 % BASOPHILS 0.69 % NEUTROPHILS ABS 5.56 1.90 - 7.40 K/uL LYMPHOCYTES ABS 1.49 1.00 - 3.90 K/uL MONOCYTES ABS 0.49 0.00 - 0.80 K/uL EOSINOPHILS ABS 0.15 0.00 - 0.50 K/uL BASOPHILS ABS 0.05 0.00 - 0.10 K/uL SODIUM 137 135 - 145 mmol/L POTASSIUM 3.9 3.5 - 4.9 mmol/L CHLORIDE 103 99 - 109 mmol/L CO2 24 23 - 32 mmol/L ANION GAP AGAP 15 5 - 20 mmol/L GLUCOSE 314 (H) 65 - 99 mg/dL BUN 18 8 - 25 mg/dL CREATININE 1.2 0.70 - 1.30 mg/dL BUN/CREAT 15 CALCIUM 8.6 8.5 - 10.5 mg/dL TOTAL PROTEIN 7.2 6.3 - 8.2 g/dL Albumin 2.8 (L) 3.6 - 5.0 g/dL GLOBULIN 4.4 1.3 - 4.9 g/dL A/G 0.7 (L) 1.0 - 2.4 TBIL 0.6 0.1 - 1.5 mg/dL ALK PHOS 106 35 - 115 U/L AST 24 10 - 45 U/L ALT 18 10 - 65 U/L EGFR >60 >60 mL/min/1.73m2 CPK 117 55 - 400 U/L INR 0.9 APTT 26 23 - 32 seconds MMB 1.4 0.5 - 3.6 ng/mL CK-MB Index 1.2 POCT glucose [[id number]] Order Status: Sent I personally reviewed the lab results and they have been posted to the chart. Pertinent po sitive and negative findings have been addressed appropriately. Radiology and EKG Evaluation Imaging Results MRI brain w wo and MRA head (Final result) Result time 03/06/18 22:30:47 Final result by Ridge Lloyd MD (03/06/18 22:30:47) Impression: MRI HEAD: 1.No acute intracranial abnormality. There is no acute infarct. 2. There are 2 small patchy subcentimeter foci of signal abnormality in the inferior left c erebellum which demonstrate evidence of mild petechial hemorrhage and contrast enhancement. These are compatible with small subacute to early chronic infarcts. There is no mass effect. 3. Mild chronic microvascular change. 4. No intracranial mass lesion, mass effect, or hydrocephalus. MRA HEAD: 1.Unremarkable MRA of intracranial circulation. No evidence of aneurysm or significant sten osis. RADIA Electronically signed by Ridge Lloyd MD on Mar 06 2018 10:30PM Referring Provider Kat ne: [phone] ID: [id number] Narrative: EXAMS: MRI BRAIN WITHOUT AND WITH CONTRAST. MRA BRAIN WITHOUT CONTRAST. EXAM DATE: 03/06/2018 09:28 PM. CLINICAL HISTORY: Stroke. Left cerebellar lesion. COMPARISON: CT head without and with contrast 03/06/2018. TECHNIQUE: MRI: Multiplanar, multisequence T1-weighted and fluid-sensitive MRI sequences of the brain were performed. Sequences optimized for routine evaluation. Other: None. Post-pro cessing: None. IV Contrast: MultiHance 25 mL. MRA: Multiplanar, multisequence T1-weighted and fluid-sensitive MRA sequences of the brain were performed. Other: None. Post-processing: Multiplanar 3D MIP reconstructions. IV Contra st: None. FINDINGS: MRI: Brain Volume: Normal for age. Parenchyma/Dura: There is no acute infarct on diffusion imaging. 2 small subcentimeter foci of increased T2 signal in the inferior left cerebellar hemisphere demonstrate mild hyperint ensity on the precontrast T1 sequence and susceptibility artifact on the T2 gradient echo se quence suggesting small foci of petechial hemorrhage. These also demonstrate mild contrast e nhancement. These likely represent small subacute to early chronic infarcts. There is mild chronic microvascular changes in the periventricular white matter. There is no mass lesion or mass effect. Ventricles/Cisterns: No hydrocephalus. No abnormal extra-axial fluid collection or hemorrha ge. Orbits: Symmetric and unremarkable. Sella Turcica: Unremarkable. IAC: Symmetric and unremarkable. Vasculature: Normal signal flow void is seen in the major arterial structures at the skull base. The dural sinuses enhance normally and appear patent. Sinuses: No acute appearing sinus disease. Bones: No focal pathologic appearing marrow signal changes. Other: Cerebellar tonsils are normal position. MRA: The petrous, cavernous, and supraclinoid segments of both internal carotid arteries are pat ent and normal in caliber. The middle cerebral and anterior cerebral artery distributions ap pear normal bilaterally. The left posterior cerebral artery has anatomy arising from t he left ICA. Both vertebral arteries join to form the basilar artery. 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 There is no stenosis or dissection of the distal vertebral or basilar arteries. The proximal PICA's are visualized bilaterally and appear patent. The P1 segment o f the left DINING CAR HOP is hypoplastic due to anatomy of the left DINING CAR HOP. This is a normal variant . Posterior circulation is within normal limits. There is no evidence of a cerebral aneurysm. There is no evidence of a large vessel occlusi on or significant intracranial stenosis. Preliminary result by Ridge Lloyd MD (03/06/18 22:29:42) Impression: MRI HEAD: 1.No acute intracranial abnormality. There is no acute infarct. 2. There are 2 small patchy subcentimeter foci of signal abnormality in the inferior left c erebellum which demonstrate evidence of mild petechial hemorrhage and contrast enhancement. These are compatible with small subacute to early chronic infarcts. There is no mass effect. 3. Mild chronic microvascular change. 4. No intracranial mass lesion, mass effect, or hydrocephalus. MRA HEAD: 1.Unremarkable MRA of intracranial circulation. No evidence of aneurysm or significant sten osis. RADIA Read by Ridge Lloyd MD on Mar 06 2018 10:29PM EKG @ 19:18 Sinus rhythm with a rate of 88 bpm. LAFB present. Anterior inferior Q waves No previous for comparison. No ST changes concerning for acute ischemia Normal QRS, intervals, and QTc Interpreted by Jemal Rogers DO at time of service. ED Diagnoses Final diagnoses Intracranial hemorrhage (HCC) Hyperglycemia Elevated blood pressure reading Morbid obesity due to excess calories (HCC) Disposition: ED Disposition ED Disposition Condition Comment Admit/Observation Bed request special needs: none Diagnosis?: cerebellar hemorrhage, right sided paresthesias, hyperglycemia Dictation software, Moe Delo, used which may contain error for similar sounding words even af ter review. Personal communication requested for any clarification. Procedures Additional Documentation Procedures Attending Provider Note: Jemal Vieira DO personally performed the services descri bed in this documentation, as scribed by David Cummins in my presence, and it is both accura te and complete. Chart Reviewed and Completed: 03/07/2018 2:22 AM Scribe: Evon Martinez, scribing for and in the presence of Jemal Rogers DO. Signed by: Evon Gonzales 03/07/2018 12:43 AM Jemal Rogers DO 03/07/18 0222 onversion Transaction, Provider Unknown - 03/06/2018 6:46 PM PDTFormatting of this note might be diff erent from the original. ED Notes by Trinity Hammonds RN at 03/06/181845 Author: Trinity Hammonds RN Service: (none) Author Type: Registered Nurse Filed: 03/06/181 Date of Service: 03/06/181845 Status: Signed Roll Builder: Trinity Hammonds RN (Registered Nurse) Pt arrives via EMS. Pt was experiencing dizziness that has been occurring for a few days. P t went to [facility] [place] and suspected for stroke. Pt had two CT's done and 'found a spot in the L side of cerebellum'. Pt arrives for further neuro consult. Pt c/o having R arm numbnes s, R sided headache, dizziness, and 'my equilibrium is totally off' while walking. Trinity Hammonds RN 03/06/181847 onver alma Transaction, Provider Unknown - 03/06/2018 6:46 PM PDT ED Notes by Tova Linda RN at 03/06/181845 Author: Tova Linda RN Service: (none) Author Type: Registered Nurse Filed: 03/06/181845 Date of Service: 03/06/181845 Status: Signed Roll Builder: Tova Linda RN (Registered Nurse) Bed: 15 Expected date: Expected time: Means of arrival: Comments: [place] tx Tova Linda RN 03/06/181845 docume nted in this encounter Miscellaneous Notes Plan of Care - Conversion Transaction, Provider Unknown - 03/12/2018 9:35 AM PDT Plan of Care by Yahaira Jeffers RN at 03/12/18934 Author: Yahaira Jeffers RN Service: (none) Author Type: Registered Nurse Filed: 03/12/1837 Date of Service: 03/12/18934 Status: Signed Roll Builder: Yahaira Jeffers RN (Registered Nurse) Discharge Barriers Patient's discharge needs are met Progressing Pt has states he has no needs for discharge. Potential for Aspiration Non-ventilated patient's risk of aspiration is minimized Progressing Pt has no swallowing issues. Pt is up for meals. Safety Patient will be injury free during hospitalization Progressing Pt has call light within reach and uses for needs and ambulation. Non skid socks on. lan o f Care - Conversion Transaction, Provider Unknown - 03/11/2018 9:59 PM PDTFormatting of thi s note might be different from the original. Plan of Care by Kathy Davis RN at 03/11/182158 Author: Kathy Davis RN Service: (none) Author Type: Registered Nurse Filed: 03/11/182158 Date of Service: 03/11/182158 Status: Signed Roll Builder: Kathy Davis RN (Registered Nurse) Discharge Barriers Patient's discharge needs are met Progressing Glucose Imbalance Clinical indication of glucose balance is achieved Progressing Pain Patient's pain/discomfort is manageable Progressing Safety Patient will be injury free during hospitalization Progressing lan o f Care - Conversion Transaction, Provider Unknown - 03/11/2018 9:50 AM PDTFormatting of thi s note might be different from the original. Plan of Care by Vianney Peres RN at 03/11/18949 Author: Vianney Peres RN Service: (none) Author Type: Registered Nurse Filed: 03/11/18949 Date of Service: 03/11/18949 Status: Signed Roll Builder: Vianney Peres RN (Registered Nurse) Problem: Pain Goal: Patient's pain/discomfort is manageable Assess and monitor patient's pain using appropriate pain scale. Collaborate with interdisci plinary team and initiate plan and interventions as ordered. Re-assess patient's pain level approximately 1-2 hours after pain management intervention. Premedicate as needed. Outcome: Progressing Pt instructed to inform RN if assistance is needed; pt states he understands lan o f Care - Conversion Transaction, Provider Unknown - 03/10/2018 9:05 PM PDTFormatting of penny s note might be different from the original. Plan of Care by Mel Pickard RN at 03/10/182104 Author: Mel Pickard RN Service: (none) Author Type: Registered Nurse Filed: 03/10/182104 Date of Service: 03/10/182104 Status: Signed Roll Builder: Mel Pickard RN (Registered Nurse) Problem: Pain Goal: Patient's pain/discomfort is manageable Assess and monitor patient's pain using appropriate pain scale. Collaborate with interdisci plinary team and initiate plan and interventions as ordered. Re-assess patient's pain level approximately 1-2 hours after pain management intervention. Premedicate as needed. Outcome: Progressing Pt is able and encouraged to report pain using a 0-10 pain scale. Pt requested Tylenol for a COOK. Problem: Safety Goal: Patient will be injury free during hospitalization Assess and monitor vitals signs, neurological status including level of consciousness and o rientation. Assess patient's risk for falls and implement fall prevention plan of care and i nterventions per hospital policy. Ensure arm band on, uncluttered walking paths in room, adequate room lighting, call light a nd overbed table within reach, bed in low position, wheels locked, side rails up per policy, and non-skid footwear provided. Outcome: Progressing Arm bands are on, bed is in lowest position. lan o f Care - Conversion Transaction, Provider Unknown - 03/10/2018 11:05 AM PDTFormatting of thi s note might be different from the original. Plan of Care by Viviana Love RN at 03/10/181104 Author: Viviana Love RN Service: (none) Author Type: Registered Nurse Filed: 03/10/181104 Date of Service: 03/10/181104 Status: Signed Roll Builder: Viviana Love RN (Registered Nurse) Problem: Pain Goal: Patient's pain/discomfort is manageable Assess and monitor patient's pain using appropriate pain scale. Collaborate with interdisci plinary team and initiate plan and interventions as ordered. Re-assess patient's pain level approximately 1-2 hours after pain management intervention. Premedicate as needed. Outcome: Progressing No c/o pain at this time. Acute pain managed appropriately with Tylenol PRN. Pt educated on pain management and pain scale, no questions or concerns. Will continue to monitor Pt an d medicate PRN. lan o f Care - Conversion Transaction, Provider Unknown - 03/09/2018 10:14 PM PDTFormatting of thi s note might be different from the original. Plan of Care by Melvi Sanderson RN at 03/09/182213 Author: Melvi Sanderson RN Service: (none) Author Type: Registered Nurse Filed: 03/09/182215 Date of Service: 03/09/182213 Status: Signed Roll Builder: Melvi Sanderson RN (Registered Nurse) Patient's pain/discomfort is manageable Progressing Resting comfortably. Declines the need for pain intervention at this time. WCM. Clinical indication of glucose balance is achieved Progressing Replaced on endotool for optimal BG management. Currenlty BG's are in the 100's. Tolerating well. WCM. Patient's discharge needs are met Progressing Plan is to d/c to [facility] swing bed. Case management is on board. MELVI SANDERSON RN lan o f Care - Conversion Transaction, Provider Unknown - 03/09/2018 9:57 AM PDTFormatting of penny s note might be different from the original. Plan of Care by Christopher Murdock RN at 03/09/18956 Author: Christopher Murdock RN Service: (none) Author Type: Registered Nurse Filed: 03/09/18956 Date of Service: 03/09/18956 Status: Signed Roll Builder: Christopher Murdock RN (Registered Nurse) Problem: Activity Intolerance/Impaired Mobility Goal: Mobility/activity is maintained at optimum level for patient Assess and monitor patient barriers to mobility and need for assistive/adaptive devices. A ssess patient's emotional response to limitations. Collaborate with interdisciplinary team a nd initiate plans and interventions as ordered. Outcome: Progressing Patient using walker for mobility, able to ambulate with stand by assist. Problem: Nutrition Goal: Nutritional status is improving Monitor and assess patient for malnutrition (ex- brittle hair, bruises, dry skin, pale skin and conjunctiva, muscle wasting, smooth red tongue, and disorientation). Collaborate with i nterdisciplinary team and initiate plan and interventions as ordered. Monitor patient's neil ght and dietary intake as ordered or per policy. Utilize nutrition screening tool and interv crista per policy. Determine patient's food preferences and provide high-protein, high-caloric foods as appropriate. Outcome: Progressing Patient has no signs of malnutrition. Monitoring wt and teaching patient on healthy food op tions. lan o f Care - Conversion Transaction, Provider Unknown - 03/08/2018 9:30 PM PDTFormatting of thi s note might be different from the original. Plan of Care by Melvi Sanderson RN at 03/08/182129 Author: Melvi Sanderson RN Service: (none) Author Type: Registered Nurse Filed: 03/08/182137 Date of Service: 03/08/182129 Status: Signed Roll Builder: Melvi Sanderson RN (Registered Nurse) Neurological status is stable or improving Progressing At this time, the patient states that he is still having weakness in his right arm and some weakness in his right lower leg. Declines COOK, or any other symptoms at this time. Cranial n erves are intact, push/pulls equal, no other neurological deficit noted at this time. Follow ing up with PT/OT. No apparent distress. WCM. MELVI SANDERSON RN iscDominga Gonzalez PT - 03/08/2018 4:20 PM PDTFormatting of this note might be differ ent from the original. Treatment Plan by Dominga Valdez PT at 03/08/181619 Author: Dominga Valdez PT Service: (none) Author Type: Physical Therapist Filed: 03/08/18 1703 Date of Service: 03/08/181619 Status: Signed Roll Builder: Dominga Valdez PT (Physical Therapist) PHYSICAL THERAPY TREATMENT NOTE PT Received On: 03/08/18 Reason for Treatment: Stroke (subacute-chronic L cerebellar infarcts) Requires PT Follow Up: Yes Follow up PT Only?: No Assistance Required: 1 person Recommendations: IRF PT Ready for Discharge: Yes Recommendation Comments: Per chart review, plan is to d/c to [facility] for rehabilitatio n; pt tolerating tx and participating well and should benefit from continued rehab for safe return to [facility]. Plan Treatment/Interventions: Continue per Primary PT POC Progress: Progressing toward goals Summary Comments: Pt resting in bed, eager and agreeable to participate with therapy. Reports COOK p ain 03/14 with RN notified. Pt exited bed with SBA and extra time for transitions d/t mild d izziness. He ambulated in roberto with both FWW and no AD/APPLICATIONS DEVELOPMENT ANALYST. Pt with variable foot placemen t and mildly ataxic gait, stating he cannot sense where feet are during ambulation. Complet ed standing balance exercises at hallway rail; pt with most difficulty on modified/partial t andem stance and only able to maintain 10-15 sec without stepping strategy d/t LOB. He was assisted into recliner where he completed toe tapping exercise to plastic cup for propriocep tive feedback. He reports COOK unchanged and was left in recliner with all needs in reach and RN present. Pre/Peak/Post Position BP Pulse rate O2 sats L/min Pain complaint Pain intervention Pre Supine HOB elevated 119/60 79 97 RA /10 COOK RN informed; repositioned pt Peak Post Seated 156/79 87 97 RA Unchanged RN aware, meds provided Precautions Other Precautions: Fall precautions Cognition Overall Cognitive Status: Within Functional Limits Orientation Level: Oriented Oriented: x 4 FUNCTIONAL MOBILITY Bed Mobility Supine to Sit: Standby assist - Transfers Sit to/from Stand: Standby assist (slow transitions 2/2 dizziness) Bed to/from Chair: Standby assist Ambulation Maximal Ambulation Distance (feet): 75 x 2 Total Ambulation Distance (feet): 150 Ambulation Assistance: Minimal assist, Standby assist (CGA to SBA) Distance limited by?: Patient's ability Pattern: Alternating, Decreased corina, Wide base, Ataxic Assistive Device: Walker front wheeled, None BALANCE Balance: Yes Static Sitting Balance Static Sitting-Level of Assistance: Independent Static Standing Balance Static Standing-Level of Assistance: (CGA- narrow base with no UE support x 30 sec) High Level Balance Side Stepping: Right, Left (wall railing as needed x 5 ft ADRIA) Tandem Stance: Hand hold assist (at wall railing; modified tandem x 10 sec ADRIA) Eyes Closed: Significant increase in sway, Patient aware of deficit (x 30 sec wide ADRIEN no U E support) THERAPEUTIC EXERCISE Seated-Exercise Type: (toe tapping to cup x25 ADRIA for prorpioceptive feedback) Activity Tolerance: Patient limited by fatigue Nurse Made Aware: Yes KARENA Syed Safety Devices in Place: (call light, needs in reach; RN present) Education Completed: Education Topics: [x] Rationale for PT [x] PT POC [x] DC planning [x] Precautions [x] Exercises [x] Bed mobility [x] Transfer training with hand [...] [] No evidence of learning [] Refused lan of Care - Convers ion Transaction, Provider Unknown - 03/08/2018 1:42 PM PDT Plan of Care by Yahaira Jeffers RN at 03/08/18 1342 Author: Yahaira Jeffers RN Service: (none) Author Type: Registered Nurse Filed: 03/08/18 1343 Date of Service: 03/08/181341 Status: Signed Roll Builder: Yahaira Jeffers RN (Registered Nurse) Activity Intolerance/Impaired Mobility Mobility/activity is maintained at optimum level for patient Progressing Pt is standby assist and steady with ambulation. Glucose Imbalance Clinical indication of glucose balance is achieved Progressing Pt transitioned to sliding scale high dose insulin. Endotool discontinued. Pain Patient's pain/discomfort is manageable Progressing Pt states pain is toleralble, prn given per orders, see mar. Potential for Aspiration Non-ventilated patient's risk of aspiration is minimized Progressing Safety Patient will be injury free during hospitalization Progressing Pt is A&O x 4 and uses call light appropriately for needs and ambulation Vitals stable throughout shift. iscmarcia hart - Conversion Transaction, Provider Unknown - 03/08/2018 8:17 AM PDTFormatting of th is note might be different from the original. Treatment Plan by MALIK Armstrong at 03/08/18 0817 Author: MALIK Armstrong Service: (none) Author Type: Occupational Therapist Filed: 03/08/1823 Date of Service: 03/08/18816 Status: Signed Roll Builder: MALIK Armstrong (Occupational Therapist) OCCUPATIONAL THERAPY EVALUATION OT Received On: 03/08/18 Reason for Treatment: Stroke (subacute-chronic L cerebellar infarcts) Requires OT Follow Up: Awaiting tx order OT Eval/Reassessment Date: 03/08/18 Assistance Required: 1 person Heating Engineer Needed: No Family/Caregiver Present: No Recommendation: Home with daytime assist, Home with nighttime assist, Outpatient OT, Outpat ient PT Equipment Recommended: Tub transfer bench, Chief Business Development Officer, Sock aid Requires OT Follow Up: Awaiting tx order OT Ready for Discharge: Yes Recommendation Comments Pt has demonstrated SBA-min A for requested ADLs. Anticipate discharge home with family sup port, when medically ready. Pt may benefit from OP therapy services to cont focus on R hand coordination/strength/sensation Plan Treatment Interventions: ADL retraining, IADL retraining, Functional transfer training, Fun ctional dynamic activities, UE strengthening, Therapeutic exercises, Endurance training, Pat ient/Family training, Equipment eval/education, Fine motor coordination activities, Compensa tory technique education OT Frequency: 3-5 x/wk Care Duration (Days): 10 Days Requires OT Follow Up: Awaiting tx order Summary OT eval orders received/verified. Chart reviewed-pt with extensive past medical history of morbid obesity, type II diabetes mellitus, hyperlipidemia and hypertension who presents to [facility] from [facility] for right-sided headache. MRI: There are 2 small patchy subcentimeter foci of signal abnormality in the inferior left cerebellum which demonstrate evidence of mi ld petechial hemorrhage and contrast enhancement. These are compatible with small subacute t o early chronic infarcts. Pt tolerated session well. Primary concern on R hand coordination/ strength. BP after activity: 134/64, heart rate 88. O2 sats at 93% on RA. Pt continues to be nefit from acute skilled OT services to further address ADLs/IADLs, walker technique, fine m otor coordination/strength/sensation. Focus for next session: retrieval tasks with FWW, RUE coordination/strength, hand writing Follow up OT only? [] Yes [x] No Precautions Other Precautions: Fall precautions Home Environment Type of Home: Home one story Home Exterior Layout: Entry steps none Home Interior Layout: Lives on main level with bedroom/bathroom Bathroom Shower/Tub: Tub/shower unit Bathroom Toilet: Raised Bathroom Equipment: Grab bars in shower/bath, Grab bars outside of shower/bath, Shower micky r, Hand-held shower head, Sponge long handled Bathroom Accessibility: Accessible via walker Home Equipment: Cane single point, Walker front wheeled, Shower head hand held, Sponge pina g handled Prior Function Level of [place]: Modified independent with functional mobility, Modified independent with ADLs, Modified independent with IADLs, Driving in community Falls in Past Year: Yes Lives With: Spouse, School-aged child(larry) (9 y/o grandson) Receives Help From: Family ADL Assistance: Independent Home ADL's: Independent 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 Pt was able to t/f to the recliner with use of the FWW, SBA-min A. Pt tolerated activities well, no LOB in sta nding. Vision-Basic Assessment Current Vision: Wears glasses Visual History: Corrective eye surgery, Cataracts Tracking: Able to track stimulus in all quads without difficulty Acuity: Able to read clock/calendar on wall without difficulty Vision - Complex Assessment Additional Comments: Reports symptoms have resolved Cognition Overall Cognitive Status: Within Functional Limits Orientation Level: Oriented Oriented: x 4 Sensation Additional Comments: Reports neuropathy in feet. Pt reports burning sensation to R thumb; n umbness to R hand to forearm. Perception Inattention/Neglect: Appears intact Initiation: Appears intact Motor Planning: Appears intact Perseveration: Not present RUE Assessment: Within Functional Limits LUE Assessment: Within Functional Limits Hand Function Gross Grasp: Functional (Motor And Controls Tester strength: RUE 19.33#; LUE: 64.66#) Functional Gross Grasp: Able to grasp objects without difficulty (9-hole peg test: LUE 29se cs; RUE 33secs) Coordination: Functional Assessment Assessment: Decreased ADL status, Decreased UE strength, Decreased endurance, Decreased adama f-care trans, Decreased high-level ADLs, Decreased fine motor control Prognosis: Good Goal Formulation: Patient, Family Activity Tolerance: Patient tolerated treatment well Safety Devices in Place: Yes Type of Devices: Call lite in place, RN notified (seated in recliner; RN present in room) Occupational Therapy Goals ADL Goals Pt Will Perform All ADL's: (Pt will p/u items at various levels, with FWW, SBA-min A) Pt Will Perform LE Dressing: At edge of bed, In chair, Mod independently Functional Transfer Goals Pt Will Perform All Functional Transfers: Mod independently, With assistive device Assistive Devices Functional Transfer: Walker front wheeled Barriers to d/c at this time include: [] Home environment [] Family support [x] Equipment needs see above for details [] Cognitive deficits impacting functional independence [x] Physical deficits impacting functional independence [x] Self-care deficits impacting functional independence [] Other Pain The patient did not demonstrate any signs of symptoms of pain throughout OT session Education Completed: Education Topics: OT role, RUE strength/coordination, ADLs, AE recommendations Completed with: [x] Patient [] Spouse [] Significant other [] Family [] C aregiver [] Other Completed by :[x] Verbal education [x] Demonstration [] Handout [] Other: Response to Education: [x] Stated Understanding [x] Reinforcement necessary [x] Returned demonstration [x] Demonstrated understanding [] No evidence of learning [] Refused Low - 29201 Moderate - 41480 High - 82309 History [] Brief history including review of medical record [x] Expanded review of medica l records; additional review of physical, cognitive, or psychosocial skills [] Review of wa dical records; extensive additional review of physical, cognitive, or psychosocial skills Examination [] Identification of 1-3 performance deficits [x]Identification of 3-5 perfo rmance deficits [] Identification of 5 or more performance deficits Decision Making [] No comorbidities that affect occupational performance; modification of tasks or assistance is not needed to complete eval [x] May present with comorbidities; mini mal to moderate modification of tasks or assistance is needed to complete eval [] Presents with comorbidities; significant modification of tasks or assistance is needed to complete e kim Clinical Decision Making Complexity: [] Low 08757 [x] Moderate 36089 [] High 87781 lan o f Care - Conversion Transaction, Provider Unknown - 03/07/2018 10:28 PM PDTFormatting of penny s note might be different from the original. Plan of Care by Melvi Sanderson RN at 03/07/182227 Author: Melvi Sanderson RN Service: (none) Author Type: Registered Nurse Filed: 03/07/182230 Date of Service: 03/07/182227 Status: Signed Roll Builder: Melvi Sanderson RN (Registered Nurse) Clinical indication of glucose balance is achieved Progressing Patient currently on endotool. Blood sugars are normalizing and insulin gtt is being titrat ed per protocol. WCM. Neurological status is stable or improving Progressing Patient states that his symptoms are overall improved. Still reports tingling/burning/weakn ess to the RUE, but states that this is starting improve as well. Face is symmetrical, speec h is clear, cranial nerves are intact, strength is equal in BLE's. R arm is slightly more we ak per patient report but still has good tube buffer strength and push/pulls. RN educated the patie nt to notify immediately for any change in neurological status. Patient verbalized luisa sparks. WCM. MELVI SANDERSON RN lan o f Care - Conversion Transaction, Provider Unknown - 03/07/2018 6:38 PM PDTFormatting of thi s note might be different from the original. Plan of Care by Ritu Wells RN at 03/07/181837 Author: Ritu Wells RN Service: (none) Author Type: Registered Nurse Filed: 03/07/181837 Date of Service: 03/07/181837 Status: Signed Roll Builder: Ritu Wells RN (Registered Nurse) Problem: Neurological Deficit Goal: Neurological status is stable or improving Monitor and assess patient's level of consciousness, motor function, sensory function, and level of assistance needed for ADLs. Monitor and report changes from baseline. Collaborate with interdisciplinary team to initiate plan and implement interventions as ordered. Outcome: Progressing Pt reports improvement in burning sensation in RUE, still has occasional difficulties comin g up with words but no new symptoms. Pt on Endotool, tolerating well. VSS, afebrile. No acut e events this shift. Ritu Wells RN MiKarina Gee CCC-FELLING MACHINE OPERATOR - 03/07/2018 4:04 PM PDT Treatment Plan by RUTH Francis at 03/07/18 1604 Author: RUTH Francis Service: (none) Author Type: Speech and Language Patho logist Filed: 03/07/18 1470 Date of Service: 03/07/18 1604 Status: Signed Roll Builder: MARCO A FrancisFELLING MACHINE OPERATOR (Speech and Language Pathologist) BEDSIDE SWALLOW FELLING MACHINE OPERATOR Last Visit FELLING MACHINE OPERATOR Received On: 03/07/18 Requires FELLING MACHINE OPERATOR Follow Up: Yes Recommendations Liquids Consistency Recommendations: Thin Diet Consistency Recommendation: Regular Recommendations: Speech/ Language Eval & Treat, Set up with meals, Check on patients freque ntly throught out meals Risk for Aspiration: Mild Compensatory Swallowing Strategies: Upright as possible for all oral intake, Remain upright for 30 minutes after meals, Small bites/sips, Eat/feed slowly Recommended Form of Meds: Meds with recommended liquid Summary: Pt is a 53 y.o. male with significant past medical history of BMI 67, DM II, dysli pidemia, HTN who presents as a transfer from [facility] with possible stroke. He reports n umbness of hands, difficulty writing and imbalance with headaches started about 4-5 days ago . Pt was seen for initial bedside swallow evaluation. Pt seen with thin liquids, pureed, and regular textures with no overt s/s of aspiration. Pt states that he often demonstrates diff iculty with dry textures but tends to avoid them. He also reports changes in memory and cogn ition. ST recommends thin liquids and regular textures. ST will follow to assess cognition. Staff Notified: , RN Plan of Care Treatment Plan: ST to follow, Cognitive evaluation/treatment Treatment Frequency: 2-4 x/week Care Duration (Days): 7 Days Follow up treatments: Patient/Family education AVS Documentation: Yes Diet: Regular: no restrictions Liquids: Thin liquids: regular consistency Follow-up Therapy: Continue Speech Therapy with Outpatient Swallowing Evaluation: Yes Patient Assessment Respiratory Status: Room air Behavior/Cognition: Alert, Cooperative Dentition: Adequate, Some missing teeth Vision: Functional for self-feeding Patient Positioning: Upright in chair Baseline Vocal Quality: Normal Volitional Cough: Strong Volitional Swallow: WFL Oral Motor Exam Labial ROM: Within Functional Limits Labial Symmetry: Within Functional Limits Labial Strength: Within Functional Limits Lingual ROM: Within Functional Limits Lingual Symmetry: Within Functional Limits Lingual Strength: Within Functional Limits Facial Symmetry: Within Functional Limits Vocal Quality: Within functional limit Consistencies Consistencies Assessed: Yes Thin Presentation: Straw Oral Phase Thin: Within functional limits Pharyngeal Phase: No overt signs or symptoms of aspiration Puree Presentation: Self Fed Oral Phase: Within functional limits Pharyngeal: No overt signs or symptoms of aspiration Regular Presentation: Self Fed Oral Phase: Within functional limits Pharyngeal Phase: No overt signs or symptoms of aspiration Goals are progressing unless otherwise indicated. Dysphagia Goals Process Supervisor Goals: Safe/efficient oral intake Pt will have safe/efficient oral intake : Thin liquids, Regular diet, New/revised goal, Goa l met Short Term Goals: Follow swallow precautions Pt will follow swallow precautions : With min supervision, New/revised goal, Goal met Education Completed Education Topics: Dysphagia: Explain results of session, speech-language pathology role, plan of care, most s afe diet and swallow precautions Completed with: [x] Patient [] Spouse [] Significant other [] Family [] Caregiver [] Other Completed by: [x] Verbal education [] Demonstration [] Handout [] Other: Response to Education: [x] Stated Understanding [] Reinforcement necessary [] Return ed demonstration [] Demonstrated understanding [] No evidence of learning [] Refused Zulay s - Conversion Transaction, Provider Unknown - 03/07/2018 2:26 PM PDTFormatting of this not e might be different from the original. Treatment Plan by Rina Ryan PT at 03/07/18 7083 Author: Rina Ryan PT Service: (none) Author Type: Physical Therapist Filed: 03/07/18 1715 Date of Service: 03/07/18 1426 Status: Signed Roll Builder: Rina Ryan, PT (Physical Therapist) PHYSICAL THERAPY EVALUATION PT Received On: 03/07/18 Reason for Treatment: Stroke (subacute-chronic L cerebellar infarcts) Requires PT Follow Up: Awaiting tx order Follow up PT Only?: No Focus for Next Treatment: Patient Education (see comment), Formal Balance Assessment, Bed M obility Technique, Transfer Technique (progress gait with and without AD) PT Eval/Reassessment Date: 03/07/18 Assistance Required: 1 person, 2 person (2nd person for wc follow for significant amb dista nce) Heating Engineer Needed: No Recommendations: Home Assist, Acute OT, OP PT, OP OT Equipment Recommended: None (pt has FWW, SPC) Barriers to Discharge: Physical Deficits Impacting Functional [place], Self-care Defic its Impacting Functional [place] Recommendation Comments: Pt presenting with mild impairments reduced stability in upright s tance and ambulation without AD. With addition of FWW pt able to increase gait velocity and stability without requiring physical assistance. Pt has device in the home and agreeable to acute use to reduce risk of falling suggesting pt will be safe to d/c to home when medically appropriate. He will however benefit from acute OT to assess/address persistent altered sen sation, reduced strength and motor coordination deficits throughout UE and OPPT to improve g eneral activity tolerance and balance strategies. Plan Treatment/Interventions: Amb with mobility aide, Balance training, Bed mobility training, G ait training, Monitor vital signs, Provide HEP, Review HEP, Therapeutic exercise, Transfer t raining PT Frequency: 5-7x/wk, Once per day Care Duration (# of days): 7 # of days Summary Comments: Pt is a 53 yo M transferred to [facility] with 4 day history for difficulty coordinatin g use of RUE, R sided weakness and balance instability. Pt noted on imaging with 2 regions o f small mild petechial hemorrhage located at inferior L cerebellum, found to be subacute to early chronic. MRA and bilateral carotid ultrasound found unremarkable. Pt received reclined in bed, denying pain with improving strength and persistent c/o altered R UE sensation and agreeable to PT evaluation. Pt appreciated with slowed coordination of R hand for finite tas ks, slightly reduced but functional strength RUE and persistent mild gait instability when t raveling increased distances. Pt attempts to stabilize upright stance and ambulation with fu rniture cruising and noted for increased flexor moment RLE at the knee with increased distan ce 2/2 ongoing mild coordination and strength deficits. With introduction of FWW pt able to increase upright posture, efficacy of step length at RLE and reduce burden of care. Pt antic ipated to make gains in all mobility and self care tasks with DME in place in home and antic ipated to safely return with assistance of family as needed. Pt returned end of session to r eclined in bedside chair, call light in reach with all needs met and RN present. Precautions Other Precautions: fall risk Cognition Overall Cognitive Status: Within Functional Limits Orientation Level: Oriented Oriented: x 4 Home Environment Type of Home: Home one story Home Exterior Layout: Entry steps none Home Interior Layout: Lives on main level with bedroom/bathroom Bathroom Shower/Tub: Tub/shower unit Bathroom Toilet: Raised Bathroom Equipment: Grab bars in shower/bath, Grab bars outside of shower/bath, Shower micky r Home Equipment: Walker front wheeled, Cane single point Prior Function Level of [place]: Independent with functional mobility, Independent with ADLs, Indepe ndent with IADLs, Modified independent with functional mobility, Modified independent with A DLs, Modified independent with IADLs, Driving in community Falls in Past Year: Yes Lives With: Spouse, School-aged child(larry) (9 yo grandson) Receives Help From: Family ADL Assistance: Independent Home ADL's: Independent Employment: Employed RUE Assessment: Within Functional Limits LUE Assessment: Within Functional Limits RLE Assessment: Within Functional Limits LLE Assessment: Within Functional Limits Sensation Light Touch: Deficit apparent Additional Comments: Pt describes ongoing numbness throughout R UE, burning sensation R mounika mb. Reduced velocity for opposition at R hand with focused gaze to increase accuracy. Proprioception Proprioception: Apparent deficit Vision Current Vision: Wears glasses (denies ongoing altered vision change) FUNCTIONAL MOBILITY Bed Mobility Supine to Sit: Supervision, Safety concerns (elevated HOB, use of bedrail, momentum for upr ight) Transfers Sit to/from Stand: Supervision, Verbal instruction, Safety concerns (increased time for upr ight w/ prolonged UE at trx surface) Ambulation Maximal Ambulation Distance (feet): 2x75ft Total Ambulation Distance (feet): 170ft Ambulation Assistance: Minimal assist, Standby assist, Safety concerns (Mally for amb withou t AD, CGA-SBA with FWW) Distance limited by?: Patient's ability (pt notes sensation of R LE potentially buckling) Pattern: Alternating, Decreased corina, Right swing foot doesn't pass stance foot, Left sw ing foot doesn't pass stance foot, Right step height adequate, Left step height adequate, Wi de base, Forward flexed (furniture cruising without AD) Assistive Device: None, Walker front wheeled (1st trial no AD, 2nd FWW) BALANCE Balance: Yes Static Sitting Balance Static Sitting-Level of Assistance: Modified independent Static Standing Balance Static Standing-Level of Assistance: Minimal assist, Standby assist (Mally without AD, SBA w ith FWW) Activity Tolerance: Patient limited by fatigue Nurse Made Aware: KARENA Chaney present and aware Safety Devices in Place: Yes Type of Devices: (call light in reach) Restraints Initially in Place: No The patient demonstrated no indication of pain during therapy session. Education Completed: Education Topics: [x] Rationale for PT [x] PT POC [x] DC planning [x] Precautions [] Exercises [] Bed mobility [x] Transfer training with hand placement [x] Gait training [] Stair training [] Use of gait belt [] Other Completed with: [x] Patient [] Spouse [] Significant other [] Family [] C aregiver [] Other Completed by: [x] Verbal education [x] Demonstration [] Handout [] Other: Response to Education: [x] Stated Understanding [x] Reinforcement necessary [x] Returned demonstration [x] Demonstrated understanding [] No evidence of learning [] Refused Physical Therapy Goals PT Goals Goal Formulation: With patient Pt Will Transfer Sit to Stand: Independently Pt Will Ambulate: greater than 200 feet Ambulate Level Assist: With modified independence Ambulate with Assistive Device: Least restricitve device Other Goal: Pt will score at least a 24/28 on Tinetti Assessment Low - 90335 Moderate - 46316 High - 93245 History [] no personal factors &/or comorbidities [] 1-2 personal factors &/or comorbiditi es [x] 3 or more personal factors &/or comorbidities Examination [] 1-2 elements [x] 3 elements [] 4 or more elements Clinical Presentation [] stable [x] evolving [] unstable Clinical Decision Making Complexity: [] Low 14462 [x] Moderate 77867 [] High 9 7163 Pre/Peak/Post Position BP Pulse rate pre Semi supine 125/72 94 peak amb </=128 post sitting 130/61 96 lan o f Care - Conversion Transaction, Provider Unknown - 03/07/2018 3:29 AM PDTFormatting of thi s note might be different from the original. Plan of Care by Jaimee Hernandez RN at 03/07/18328 Author: Jaimee Hernandez RN Service: (none) Author Type: Registered Nurse Filed: 03/07/18328 Date of Service: 03/07/18328 Status: Signed Roll Builder: Jaimee Hernandez RN (Registered Nurse) Problem: Safety Goal: Patient will be injury free during hospitalization Assess and monitor vitals signs, neurological status including level of consciousness and o rientation. Assess patient's risk for falls and implement fall prevention plan of care and i nterventions per hospital policy. Ensure arm band on, uncluttered walking paths in room, adequate room lighting, call light a nd overbed table within reach, bed in low position, wheels locked, side rails up per policy, and non-skid footwear provided. Outcome: Progressing Patient's arm band is on, call light in reach, bed in low position, wheels locked, and non skid footwear in use. docume nted in this encounter Plan of [...] | | | Fingerstick | performed at [facility];[address] | | LAB | | | | [address];[place], [place] | | | | | | [address] | | | | + + + [...] | | | Fingerstick | performed at [facility];[address] | | LAB | | | | [address];[place], [place] | | | | | | [address] | | | | + + + [...] + + + + + + | Non- | 4.23 | 4.20 - 5.70 | EXTERNAL | | | Red Blood | | M/uL | LAB | | | Cells | | | | | | Counted | | | [...] | | | Basophils | performed at [facility], [address] | K/uL | LAB | | | | [address], | | | | | | [place] [address] | | | | + + + [...] | | | | | | at [facility], [address] | | | | | | [address], | | | | | | [place] [address] | | | | + + + [...] | | | Fingerstick | performed at [facility];[address] | | LAB | | | | [address];[place] | | | | | | [address] | | | | + + + [...] | | | Fingerstick | performed at [facility];[address] | | LAB | | | | [address];[place], [place] | | | | | | [address] | | | | + + + [...] | | | Fingerstick | performed at [facility];[address] | | LAB | | | | [address];[place], [place] | | | | | | [address] | | | | + + + [...] | | | Fingerstick | performed at [facility];[address] | | LAB | | | | [address];[place] | | | | | | [address] | | | | + + + [...] | | | Fingerstick | performed at [facility];[address] | | LAB | | | | [address];[place] | | | | | | [address] | | | | + + + [...] + + + + + + | Non- | 4.41 | 4.20 - 5.70 | EXTERNAL | | | Red Blood | | M/uL | LAB | | | Cells | | | | | | Counted | | | [...] | | | Basophils | performed at [facility], [address] | K/uL | LAB | | | | [address], | | | | | | [place] [address] | | | | + + + [...] | | | | | performed at [facility], [address] | | | | | | [address], | | | | | | [place] [address] | | | | + + + [...] | | | | | | at [facility], [address] | | | | | | [address], | | | | | | [place] [address] | | | | + + + [...] | | | Fingerstick | performed at [facility];[address] | | LAB | | | | [address];[place] | | | | | | [address] | | | | + + + [...] | | | Fingerstick | performed at [facility];[address] | | LAB | | | | [address];[place] | | | | | | [address] | | | | + + + [...] | | | Fingerstick | performed at [facility];[address] | | LAB | | | | [address];[place], [place] | | | | | | [address] | | | | + + + [...] | | | Fingerstick | performed at [facility];[address] | | LAB | | | | [address];[place], [place] | | | | | | [address] | | | | + + + [...] | | | Fingerstick | performed at [facility];[address] | | LAB | | | | [address];[place], [place] | | | | | | [address] | | | | + + + [...] | | | Fingerstick | performed at [facility] | | LAB | | | | [address];[place] | | | | | | [address] | | | | + + + [...] | | | Fingerstick | performed at [facility];[address] | | LAB | | | | [address];[place], [place] | | | | | | [address] | | | | + + + [...] | | | Fingerstick | performed at [facility];[address] | | LAB | | | | [address];[place] | | | | | | [address] | | | | + + + [...] | | | Fingerstick | performed at [facility];[address] | | LAB | | | | [address];[place] | | | | | | [address] | | | | + + + [...] | | | Fingerstick | performed at [facility];[address] | | LAB | | | | [address];[place] | | | | | | [address] | | | | + + + [...] | | | Fingerstick | performed at [facility];[address] | | LAB | | | | [address];[place], [place] | | | | | | [address] | | | | + + + [...] | | | Fingerstick | performed at [facility];[address] | | LAB | | | | [address];[place] | | | | | | [address] | | | | + + + [...] | | | Fingerstick | performed at [facility] | | LAB | | | | [address];[place], [place] | | | | | | [address] | | | | + + + [...] | | | | | | at [facility];[address] [place] [address] | | | | | | [address];[place] [address] | | | | + + + [...] + + + + + + | Non- | 4.28 | 4.20 - 5.70 | EXTERNAL | | | Red Blood | | M/uL | LAB | | | Cells | | | | | | Counted | | | [...] | | | Basophils | performed at [facility], [address] | K/u[address] | LAB | | | | [address], | | | | | | [place] [address] | | | | + + + [...] EXTERNAL | | | | performed at [facility], [address] | | LAB | | | | [address], | | | | | | [place] [address] | | | | + + + [...] EXTERNAL | | | | performed at [facility], [address] | | LAB | | | | [address], | | | | | | [place] [address] | | | | + + + [...] | | | | | | at [facility], [address] | | | | | | [facility], | | | | | | [place] [address] | | | | + + + [...] | | | Fingerstick | performed at [facility];[address] | | LAB | | | | [address];[place] | | | | | | [address] | | | | + + + [...] | | | Fingerstick | performed at [facility];[address] | | LAB | | | | [address];[place] | | | | | | [address] | | | | + + + [...] | | | Fingerstick | performed at [facility];[address] | | LAB | | | | [address];[place], [place] | | | | | | [address] | | | | + + + [...] | | | Fingerstick | performed at [facility];[address] | | LAB | | | | [address];[place] | | | | | | [address] | | | | + + + [...] | | | Fingerstick | performed at [facility];[address] | | LAB | | | | [address];[place] | | | | | | [address] | | | | + + + [...] | | | Fingerstick | performed at [facility];[address] | | LAB | | | | [address];[place] | | | | | | [address] | | | | + + + [...] | | | Fingerstick | performed at [facility];[address] | | LAB | | | | [address];[place], [place] | | | | | | [address] | | | | + + + [...] | | | Fingerstick | performed at [facility];[address] | | LAB | | | | [address];[place], [place] | | | | | | [address] | | | | + + + [...] | | | Fingerstick | performed at [facility] | | LAB | | | | [address];[place] | | | | | | [address] | | | | + + + [...] | | | Fingerstick | performed at [facility];[address] | | LAB | | | | [address];[place] | | | | | | [address] | | | | + + + [...] | | | Fingerstick | performed at [facility];[address] | | LAB | | | | [address];[place] | | | | | | [address] | | | | + + + [...] | | | Fingerstick | performed at [facility];[address] | | LAB | | | | [address];[place], [place] | | | | | | [address] | | | | + + + [...] | | | Fingerstick | performed at [facility];[address] | | LAB | | | | [address];[place], [place] | | | | | | [address] | | | | + + + [...] | | | Fingerstick | performed at [facility];[address] | | LAB | | | | [address];[place], [place] | | | | | | [address] | | | | + + + [...] EXTERNAL | | | | performed at [facility];[address] | | LAB | | | | [address];[place] | | | | | | [address] | | | | + + + [...] | | | Fingerstick | performed at [facility];[address] | | LAB | | | | [address];[place] | | | | | | [address] | | | | + + + [...] EXTERNAL | | | | performed at [facility];[address] | | LAB | | | | [address];[place] | | | | | | [address] | | | | + + + [...] | | | | | | at [facility] [address];[place] [address] | | | | + + + [...] | | | | | performed at [facility], [address] | | | | | | [address], | | | | | | [place] [address] | | | | + + + [...] + + + + + + | Clarity, | TURBID | | EXTERNAL | | | Urine | | | LAB | | + + + + + + | Specific | 1.027 | 1.002 - 1.030 | EXTERNAL | | | [place], | | | LAB | | | [...] | | | Urine | performed at [facility], [address] | | LAB | | | | [address], | | | | | | [place] [address] | | | | + + + [...] | | | Fingerstick | performed at [facility];[address] | | LAB | | | | [address];[place] | | | | | | [address] | | | | + + + [...] 4:05AM Referring Provider Line: | | | [phone] ID: [id number] | | + + + [...] Rad Conversion - 06/18/2019 7:33 AM PDT EXAM:CHEST [...] 2018 4:05AM Referring Provider Line: | | [phone] ID: [id number] | |COMPARISON: None. | | [...] 09 2018 4:05AM Referring Provider Francisca e: [phone] ID: [id number] | + + Culture, Blood [...] EXTERNAL | | | | performed at [facility];[address] | mmol/L | LAB | | | | [address];[place] | | | | | | [address] | | | | + + + [...] NEGATIVE Testing | | | performed at [facility];[address] [facility];[place] [address] | | + + + + +---------+ [...] | | | Fingerstick | performed at [facility];[address] | | LAB | | | | [address];[place], [place] | | | | | | [address] | | | | + + + [...] | | | Fingerstick | performed at [facility];[address] | | LAB | | | | [address];[place] | | | | | | [address] | | | | + + + [...] | | | Fingerstick | performed at [facility];[address] | | LAB | | | | [address];[place] | | | | | | [address] | | | | + + + [...] | | | Fingerstick | performed at [facility];[address] | | LAB | | | | [address];[place] | | | | | | [address] | | | | + + + [...] | | | Fingerstick | performed at [facility];[address] | | LAB | | | | [address];[place], [place] | | | | | | [address] | | | | + + + [...] | | | Fingerstick | performed at [facility];[address] | | LAB | | | | [address];[place], [place] | | | | | | [address] | | | | + + + [...] | | | Fingerstick | performed at [facility];[address] | | LAB | | | | [address];[place], [place] | | | | | | [address] | | | | + + + [...] | | | Fingerstick | performed at [facility];[address] | | LAB | | | | [address];[place] | | | | | | [address] | | | | + + + [...] | | | Fingerstick | performed at [facility];[address] | | LAB | | | | [address];[place] | | | | | | [address] | | | | + + + [...] | | | Fingerstick | performed at [facility];[address] | | LAB | | | | [address];[place], [place] | | | | | | [address] | | | | + + + [...] | | | Fingerstick | performed at [facility];[address] | | LAB | | | | [address];[place] | | | | | | [address] | | | | + + + [...] | | | Fingerstick | performed at [facility];[address] | | LAB | | | | [address];[place], [place] | | | | | | [address] | | | | + + + [...] + + + + + + | Non- | 4.22 | 4.20 - 5.70 | EXTERNAL | | | Red Blood | | M/uL | LAB | | | Cells | | | | | | Counted | | | [...] | | | Basophils | performed at [facility], [address] | K/u[address] | LAB | | | | [facility], | | | | | | [place] [address] | | | | + + + [...] | | | | | [place] [address] | | | | + + + [...] | EXTERNAL | | | A1c | Sudanese Diabetes | | LAB | | | [...] | | | | | performed at [facility], [address] | | | | | | [address], | | | | | | [place] [address] | | | | + + + [...] | | | | | | at [facility], [address] | | | | | | [facility], | | | | | | [place] [address] | | | | + + + [...] | | | Fingerstick | performed at [facility];[address] | | LAB | | | | [address];[place] | | | | | | [address] | | | | + + + [...] | | | Fingerstick | performed at [facility];[address] | | LAB | | | | [address];[place], [place] | | | | | | [address] | | | | + + + [...] | | | Fingerstick | performed at [facility];[address] | | LAB | | | | [address];[place] | | | | | | [address] | | | | + + + [...] | | | Fingerstick | performed at [facility];[address] | | LAB | | | | [address];[place] | | | | | | [address] | | | | + + + [...] | | | Fingerstick | performed at [facility];[address] | | LAB | | | | [address];[place] | | | | | | [address] | | | | + + + [...] | | | Fingerstick | performed at [facility] | | LAB | | | | [address];[place], [place] | | | | | | [address] | | | | + + + [...] | | | Fingerstick | performed at [facility];[address] | | LAB | | | | [address];[place], [place] | | | | | | [address] | | | | + + + [...] | | | Fingerstick | performed at [facility];[address] | | LAB | | | | [address];[place], [place] | | | | | | [address] | | | | + + + [...] | | | Fingerstick | performed at [facility];[address] | | LAB | | | | [address];[place] | | | | | | [address] | | | | + + + [...] | | | Fingerstick | performed at [facility];[address] | | LAB | | | | [address];[place] | | | | | | [address] | | | | + + + [...] | | | Fingerstick | performed at [facility];[address] | | LAB | | | | [address];[place], [place] | | | | | | [address] | | | | + + + [...] | | | Fingerstick | performed at [facility];[address] | | LAB | | | | [address];[place] | | | | | | [address] | | | | + + + [...] | | | Fingerstick | performed at [facility];[address] | | LAB | | | | [address];[place], [place] | | | | | | [address] | | | | + + + [...] | | | Fingerstick | performed at [facility];[address] | | LAB | | | | [address];[place] | | | | | | [address] | | | | + + + [...] | | | 0.43 m/s TV Dec Dorado: 2.48 m/s2 TV Dec Time: 211.42 ms TV E | | | Jeff: 0.52 m/s TV E/A Ratio: 1.20 Powerhouse Mechanic: GD | | | Authenticated by: Sav Trotter MD, FACC, FACP, FASMARTITA Report | | | Date/Time: 03-07-2018 12:47:18 | | + + + + + | Procedure Note | + + | Josh Quinteros Conversion - 06/18/2019 7:33 AM PDT Patient Name: Percy BURNS of | | : 1965 Performing Physician: Sav Trotter MD, FAC, | | FACP, | | FASNC INDICATIONS--------- | | --stroke CONCLUSIONS 1. This [...] cmSV(Teich): 52.40 mlLVCI Dopp: | | 1.31 l/hsrd8XTMF Dopp: 3.76 l/minHR: 72.73 BPMLVOT maxP.53 mmHgLVOT [...] 17.01 cmTV A Jeff: 0.43 m/sTV Dec Dorado: 2.48 | | m/s2TV Dec Time: 211.42 msTV E Jeff: 0.52 m/sTV E/A Ratio: 1.20 Powerhouse Mechanic: | | GDAuthenticated by: Sav Trotter MD, [...] A Jeff: 0.43 m/s | |TV Dec Dorado: 2.48 m/s2 | |TV Dec Time: 211.42 ms | |TV E Jeff: 0.52 m/s | |TV E/A Ratio: 1.20 | | | |Powerhouse Mechanic: GD | |Authenticated by: Sav Trotter MD, [...] | | | | | | ACUTE NC Testing | | | | | | performed at [facility] | | | | | | [address];[place], [place] | | | | | | [address] | | | | + + + [...] | | | Fingerstick | performed at [facility];[address] | | LAB | | | | [address];[place], [place] | | | | | | [address] | | | | + + + [...] + + + + + + | Clarity, | CLEAR | | EXTERNAL | | | Urine | | | LAB | | + + + + + + | Specific | 1.036 (H) | 1.002 - 1.030 | EXTERNAL | | | [place], | | | LAB | | | [...] | | | Cells | performed at [facility];[address] | | LAB | | | | [address];[place], [place] | | | | | | [address] | | | | + + + [...] 7:45AM Referring | | | Provider Line: [phone] ID: [id number] | | + + + + + + | Narrative | Performed At | + + + | EXAM: CAROTID DOPPLER ULTRASOUND EXAM DATE: 03/07/2018 06:14 AM. | | | CLINICAL HISTORY: CVA, rule out carotid artery stenosis. | | | COMPARISON: None. TECHNIQUE: Real-time sonographic vascular | | | imaging was performed by the shampoo assistant through the carotid arterial | | | system with a linear transducer utilizing color-flow, Doppler flow and | | | spectral analysis. Multiple senior outside sales representative static images were saved | [...] imaging was performed by the | | shampoo assistant through the carotid arterial system with a linear transducer utilizing | | color-flow, Doppler flow and spectral analysis. Multiple senior outside sales representative static images | | were [...] Mar 07 2018 7:45AM Referring Provider Line: [phone] ID: [id number] | |ICA Distal: PSV 36 [...] Mar 07 2018 7:45AM Referring Provider Line: [phone] ID: [id number] | + + POC Glucose (03/07/2018 4:59 AM PDT) + + + + + + | Component | Value | Ref Range | Performed | Pathologist | | | | | At | Signature | + + + + + + | Glucose, | 354 (H)Comment: Testing | 65 - 99 mg/dL | EXTERNAL | | | Fingerstick | performed at [facility];[address] | | LAB | | | | [address];[place] | | | | | | [address] | | | | + + + [...] | | | Fingerstick | performed at [facility];[address] | | LAB | | | | [address];[place], [place] | | | | | | [address] | | | | + + + [...] | | | | | | ACUTE NC Testing | | | | | | performed at [facility];[address] | | | | | | [address] [facility];[place], [place] | | | | | | [address] | | | | + + + [...] + + + + + + | Non- | 4.56 | 4.20 - 5.70 | EXTERNAL | | | Red Blood | | M/uL | LAB | | | Cells | | | | | | Counted | | | [...] | | | Basophils | performed at [facility], [address] | K/[address] | LAB | | | | [address], | | | | | | [place] [address] | | | | + + + [...] | | | | | [place] [address] | | | | + + + [...] EXTERNAL | | | | performed at [facility], [address] | | LAB | | | | [address], | | | | | | [place] [address] | | | | + + + [...] | EXTERNAL | | | A1c | Sudanese Diabetes | | LAB | | | [...] | | | | | performed at [facility], [address] | | | | | | [address], | | | | | | [place] [address] | | | | + + + [...] | | | Calculated | performed at [facility], [address] | | LAB | | | | [address], | | | | | | [place] [address] | | | | + + + [...] W | | | | | | [facility], | | | | | | [place] [address] | | | | + + + [...] | | | Fingerstick | performed at [facility];[address] | | LAB | | | | [address];[place], [place] | | | | | | [address] | | | | + + + [...] 10:30PM Referring Provider | | | Line: [phone] ID: [id number] | | + + + [...] patent. The P1 segment of the left DINING CAR HOP is hypoplastic due to | | | anatomy of the left DINING CAR HOP. This is a normal variant. Posterior | [...] patent. The P1 segment of the left DINING CAR HOP is | | hypoplastic due to anatomy of the left DINING CAR HOP. This is a normal variant. Posterior | [...] Mar 06 2018 10:30PM Referring Provider Line: [phone] | | ID: [id number] | | | [...] |patent. The P1 segment of the left DINING CAR HOP is hypoplastic due to anatomy of the left DINING CAR HOP. This is a normal variant. Posterior circulation [...] 06 2018 10:30PM Referring Provider Kat ne: [phone] ID: [id number] | + + HISTORICAL LAB [...] + + + + + -+ | Non- | 4.82 | 4.20 - 5.70 | EXTERNAL | | | Red Blood | | M/uL | LAB | | | Cells | | | | | | Counted | | | [...] | | | | | | ACUTE NC Testing | | | | | | performed at [facility];[address] | | | | | | [address];[place], [place] | | | | | | [address] | | | | + + + [...] | | | Fingerstick | performed at [facility];[address] | | LAB | | | | [address];[place] | | | | | | [address] | | | | + + + [...] | | | | | ONLY, -COMPUTER ([id number]), | | | | | | website/blog editor Yahaira Chicas | | | | | | (18) on 03/07/2018 5:57:49 | | | | | | AM | | | | + + + + + + + + | Specimen | + + | | + + + + + | Narrative | Performed At | + + + | Historically converted procedure from [facility] Epic environment | EXTERNAL LAB [...] Quinteros Conversion - 06/18/2019 7:33 AM PDT This is [...] Quinteros Conversion - 06/18/2019 7:33 AM PDT This is [...]
--- OUTSIDE RECORDS SUMMARY | ~2020-08-05 | XMS | Encounter Summary ---
Demographics + + + | Address | [address] | | | [place] [address] | + + + | Home Phone [...] [place], [place] | | | | | [address] | | + + + + + Care Team Providers + +------+ + | Care Spider Assembler Name | Role | Phone | [...] | | | | | | [facility] | | | [facility], | | | | | | | [address] | | | | | | | [place], [place] | | | | | | | [address] | | | | | | | Phone: | | | | | | | [phone] | | | | | | | Fax: | | | | | | | [phone] | +--------+--------+ + + + + Encounter Details +--------+---------+ + + + | Date | Type | Department | Care Team | Description | +--------+---------+ + + + | 03/19/ | Office | Digestive Health | Jesus Perez, | Morbid obesity (HCC) | | 2013 | Visit | [facility] [address] | [address] | (Primary Dx) | | | | [facility] | [facility] | | | | | for Health and | [place], [place] | | | | | [facility], [facility] [address] | [address] | | | | | [place], [place] | [phone] | | | | | [address] | | | | | | [phone] | | | +--------+---------+ + + + [...]
--- OUTSIDE RECORDS SUMMARY | ~2020-08-05 | XMS | Encounter Summary ---
Demographics + + + | Address | [address] [facility] | | | [place] [address] | + + + | Home Phone [...] + | Tico Burns | ECON | [address] | | | | | [place], [place] | | | | | [address] | | + + + + + Care Team Providers + +------+ + | Care Transport Nurse Name | Role | Phone | [...] 2012 | | Center at [facility] [address] | BETTING CLERK [address] | | | | | [address] amanda Leslie | [facility] [address] | | | | | for Health and | [place], [place] | | | | | [place] [address] | [address] | | | | | [place], [place] | [phone] | | | | | [address] | | | | | | [phone] | | | +--------+ + + + [...]
--- OUTSIDE RECORDS SUMMARY | ~2020-08-05 | XMS | Encounter Summary ---
Demographics + + + | Address | [address] [facility] | | | [place] [address] | + + + | Home Phone [...] + | Author | [facility] | | | and [place] | + + + | Organization | [facility] | [...] [place] | | | | | [address] | | + + + + + Care Team Providers + +------+ + | Care Dye Mixer Name | Role | Phone | + +------+ + | Moe Bella MD | PCP | | + +------+ + Encounter Details +--------+ + + + + | Date | Type | Department | Care Team | Description | +--------+ + + + + | 04/04/ | Hospital | [facility] | Chauncey Lee MD | S/P cervical spinal | | 2016 | Encounter | MED CTR XRAY [address] | fusion | | | | [place] | [place] [address] | | | | | [place] [address] | [phone] | | | | | [phone] | | | +--------+ + + + [...] | | | 12 | | | [address]93 UNITS capsule | | | | | [...] ST. | [address] | [place] | [phone] | | [facility] | | [address] | | | - IMAGING | | | | + + + + + documented in this encounter Visit Diagnoses + + | Diagnosis | + + | S/P cervical spinal fusion Arthrodesis status | + + documented in this encounter"
--- OUTSIDE RECORDS SUMMARY | ~2020-08-05 | XMS | Encounter Summary ---
Demographics + + + | Address | [address] [facility] | | | [place] [address] | + + + | Home Phone | | + + + | Preferred Language | Unknown | + + + | Marital Status | | + + + | Spiritism Affiliation | 1013 | + + + | Race | White | + + + | Ethnic Group | Not or | + + + Author + + + | Author | [facility] | | | and [place] | + + + | Organization | [facility] | | [...] [place] | | | | | [address] | | + + + + + Care Team Providers + +------+ + | Care Service Tech/Welder Name | Role | Phone | + [...] | [address] | [address] | | | | | with | [place], | [place], | | | | | radiculopath | [place] [address] | [place] | | | | | y | Phone: | [address] | | | | | Degenerative | [phone] | Phone: | | | | | disc | Fax: | [phone] | | | | | disease, | [phone] | Fax: | | | | | cervical | | [phone] | | | | | Foraminal | [...] | | | | | | | ([facility]) | | | | | | [...] | MD [address] | MD [address]ley [address] | | | Required | | spondylosis | [address] | [address] | | | | | with | [facility] | [address] | | | | | radiculopath | [place] [address] | [place] | | | | | y | Phone: | [phone] Phone: | | | | | Degenerative | [phone] | [phone] | | | | | disc | Fax: | Fax: | | | | | disease, | [phone] | [phone] | | | | | cervical | | | | | | | Foraminal | [...] | | | | | | | ([facility]) | | | | | | [...] Closed | | Neurosurgery | Diagnoses | Kyle, | Chauncey Lee | | | | | Cervical | Oscar S, | MD [address] | | | | | disc | [address] | | | | | herniation | [address] | [place], [place] | | | | | Procedures | [place], | [address] | | | | | [place] OFFICE | [place] | Phone: | | | | | CONSULTATION | [address] | [phone] | | | | | NEW/ESTAB | Phone: | Fax: | | | | | PATIENT 60 | [phone] | [phone] | | | | | MIN | Fax: | | | | | | | [phone] | | +--------+--------+ + + + + Encounter Details +--------+---------+ + + + | Date | Type | Department | Care Team | Description | +--------+---------+ + + + | 04/04/ | Office | [facility] | Chauncey Lee MD | Cervical spondylosis | | 2016 | Visit | NEUROSURGERY [address] | [address] | with radiculopathy | | | | [address] | [place] [address] | (Primary Dx); | | | | KEN[place] Capps | [phone] | Degenerative disc | | | | [address] | | disease, cervical; | | | | [phone] | | Foraminal stenosis | | | | | | of cervical region; | | | | | | Left arm weakness; | | | | | | Morbid obesity, | | | | | | unspecified obesity | | | | | | type ([facility]); Sleep | | | | | [...] research this procedure more by going to: [email or web address] Click the Treatment Options link on the left column. Then, look for Anterior Cervical Discectomy and Fusion (ACDF). documented in this encounter Progress Notes Chauncey Lee MD - 04/04/2016 1:22 PM PDTFormatting of this note might be different from t he original. Chauncey Lee MD [address] [place] [address], [address] [place] [phone] FAX: NEUROSURGERY HISTORY AND PHYSICAL EXAMINATION CHIEF [...] by mouth 2 times daily. ergocalciferol (ERGOCALCIFEROL) 32677 UNITS capsule Take 50,000 Units by mouth Once a w [place]. FLUoxetine (PROZAC) 20 mg capsule Take 20 [...] has no apparent deficits with short or alf memory. CRANIAL NERVES: II: Acuity is intact. [...] Triceps 5 5 Wrist Flexion 5 4 Accounts Receivable Bookkeeper Strength 5 4 Hip Flexion 5 5 [...] | | | | | type (HCC) Sleep | | | | | | [...] | | | | | type (HCC) Sleep | | | | | | [...]
--- OUTSIDE RECORDS SUMMARY | ~2020-08-05 | XMS | Encounter Summary ---
Demographics + + + | Address | [address] [facility] | | | [place] [address] | + + + | Home Phone | | + + + | Preferred Language | Unknown | + + + | Marital Status | | + + + | Pentecostal Affiliation | CHR | + + + [...] + | Tico Burns | ECON | [address] | | | | | [place], [place] | | | | | [address] | | + + + + + Care Team Providers + +------+ + | Care Ivory Polisher Name | Role | Phone | + +------+ + | Moe Bella MD | PCP | | + +------+ + Encounter Details +--------+ + + + + | Date | Type | Department | Care Team | Description | +--------+ + + + + | 04/29/ | Telephone | Dig[facility]ive Health | Jesus Perez, | | | 2012 | | [place] [address] | [address] | | | | | [place] Mailcode: CH4S | [facility] | | | | | [facility] | [place], [place] | | | | | and Healing, | [address] | | | | | [address] | [phone] | | | | | Floor [place], [place] | | | | | | [address] | | | | | | [phone] | | | +--------+ + + + [...] this encounter Miscellaneous Notes Telephone Encounter - Zachary Kimball - 04/29/2013 9:21 AM PDTLindsey of PCP's office left elena sotelo message 04/28/13 15:17 Stating she was returning the call of Bariatric MA and asking for call back Re: Conversation of 04/25/13 Tdocumented in this encounter Plan of Treatment Not on filedocumented as of this encounter Visit Diagnoses Not on filedocumented in this encounter"
--- OUTSIDE RECORDS SUMMARY | ~2020-08-05 | XMS | Encounter Summary ---
Demographics + + + | Address | [address] [facility] | | | [place] [address] | + + + | Home Phone | | + + + | Preferred Language | Unknown | + + + | Marital Status | | + + + | Jew Affiliation | CHR | + + + | Race | White | + + + | Ethnic Group | Not or | + + + Author + + + | Author | [facility] | + + + | Organization | [facility] | + + + | Address | Unknown | + + + | Phone | Unavailable | + + + Support + + + + + | Name | Relationship | Address | Phone | + + + + + | Tico Burns | ECON | [address] | | | | | [place], [place] | | | | | [address] | | + + + + + Care Team Providers + +------+ + | Care Cloth Bleaching Range Operator Chief Name | Role | Phone | + [...] | | | | | surgery | [address] | [address] | | | | | status | [address] | [address] | | | | | Procedures | Claudette Wright | Kyle [place], | | | | | CONSULT TO | [place], [place] | [place] | | | | | BARIATRIC | [address] | [address] | | | | | SURGERY | Phone: | Phone: | | | | | | [phone] | [phone] | | | | | | Fax: | Fax: | | | | | | [phone] | [phone] | +--------+--------+ + + + + Reason [...] Laura | | | | | | [place] | [facility] | | | | | | [address] | Rd [facility], | | | | | | [place], | [place] | | | | | | [place] [address] | [address] | | | | | | Phone: | Phone: | | | | | | [phone] | [phone] | | | | | | Fax: | Fax: | | | | | | [phone] | [phone] | +--------+--------+ + + + + Encounter Details +--------+---------+ + + + | Date | Type | Department | Care Team | Description | +--------+---------+ + + + | 01/12/ | Office | Plastic and | Mary Ann Winkler, | BMI 60.0-69.9, adult | | 2017 | Visit | Reconstructive | [address] | ([facility]) (Primary Dx); | | | | Surgery at [facility] [address] | Edema, unspecified | | | | [facility] | [facility], [place] | type; Sleep apnea, | | | | for Health and | [address] | unspecified type; | | | | [facility], [address] [facility], | [phone] | Secondary | | | | 5th Floor | | hypertension; | | | | [place], [place] | | Ramona infection of | | | | [address] | | flexural skin | | | | [phone] | | | +--------+---------+ + + + [...] Reese MD PLASTIC AND RECONSTRUCTIVE SURGERY AT [facility] [address] [place] Mail Code: [address] [address] ymon, Mckenna Parry MD - 01/12/2017 2:30 PM PST Plastic Surgery Clinic Note Author: Mckenna Trevino MD Attending Physician: Mary Ann Winkler [facility] Savannah Jurado MD 01/12/2017 Reason for Visit: Consult for panniculectomy History of Present Illness: Gerard Burns is a 51 y.o. male With prior history of g astric sleeve bypass by Dr Laurent in 2013. He has lost approximately 100 lbs since [...] HTN (hypertension) Intertriginous candidiasis Leg sore Numbness 2006 hands and feet Sleep apnea on CPAP [...] 4 Tabs by mouth once daily. Ad binder cutter with evening meal. Indications: TYPE 2 DIABETES [...] Rash all over arms SH: Lives in [place], [place] with his and grandson. 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 Den ies tobacco, rare EtOH consumption, denies [...] evidence of venous stasis Labs/Cultures/Pathology: Reviewed in [facility] Imaging/Diagnostic Studies: Reviewed in [facility] ASSESSMENT: Gerard Burns is a [...] wound complications, <7 Dr. Mary Ann Winkler [facility] Support General has seen and examined the patient and agrees with the above plan. Mckenna Trevino MD PLASTIC AND RECONSTRUCTIVE SURGERY AT [facility] [address] Mail Code: [place] [address] documented in this e ncounter [...]
--- OUTSIDE RECORDS SUMMARY | ~2020-08-05 | XMS | Encounter Summary ---
Demographics + + + | Address | [address] [facility] | | | [place] [address] | + + + | Home Phone [...] + | Tico Burns | ECON | [address] | | | | | [place], [place] | | | | | [address] | | + + + + + Care Team Providers + +------+ + | Care Athlete Marketing Agent Name | Role | Phone [...] over, | | 2012 | Visit | Center at [facility] [address] | [address] [facility] | adult ([facility]) (Primary | | | | [address] [facility] | [facility] [address] | Dx); Morbid obesity | | | | for [facility] and | [place], [place] | ([facility]); S/P gastric | | | | [facility] 2 | [address] | bypass | | | | [place], [place] | [phone] | | | | | [address] | | | | | | [phone] | | | +--------+---------+ + + + [...] and plan of care. HARPREET FENTON MD [facility] BARIATRIC SURGERY [address] Mailcode: [place] [address] Oc Giraldo MD - 01/30/2013 9:24 AM PDT BARIATRIC SURGERY CLINIC PROGRESS NOTE: 01/30/2013 Attending Physician: Logan Fenton MD Author: Oc Bee MD; Bariatric Fellow, Pager [phone] CC: 2wk f/u bariatric surg Surgical Issue(s): [...] advanced to phase [address] ROS: Weight: Maximum weight 587# Preoperative weight [...] plan. Oc Bee MD MIS/Bariatric Fellow, Pager [phone] [facility] Current Outpatient Prescriptions on File Prior [...] bypass attempted documented in this en counter Miscellaneous Notes Scan - Chelsey Faculty - 01/31/2013 1:58 PM PDTElectronically signed by Usman Barbosa at 1:58 PM PDTdocumented in this encounter Plan of Treatment Not on filedocumented as of this encounter Visit Diagnoses + + | Diagnosis | + + | BMI 70 and over, adult (HCC) - Primary Body Mass Index 70 and over, adult | + + | Morbid obesity (HCC) Morbid obesity | + + | S/P gastric bypass Bariatric surgery status | + + documented in this encounter
--- OUTSIDE RECORDS SUMMARY | ~2020-08-05 | XMS | Encounter Summary ---
Demographics + + + | Address | [address] [facility] | | | [place] [address] | + + + | Home Phone [...] + | Tico Burns | ECON | [address] | | | | | [place], [place] | | | | | [address] | | + + + + + Care Team Providers + +------+ + | Care Hadoop Analyst Name | Role | Phone | + +------+ + | Moe Bella MD | PCP | | + +------+ + Encounter Details +--------+ + + + + | Date | Type | Department | Care Team | Description | +--------+ + + + + | 09/12/ | Abstract | Digestive Health | Jesus Perez, | | | 2012 | | [place] [address] [address] | [address] [facility] | | | | | [facility] | [facility] | | | | | for Health and | [place], [place] | | | | | [facility], [place] [address] | [address] | | | | | [place], [place] | [phone] | | | | | [address] | | | | | | [phone] | | | +--------+ + + + [...]
--- OUTSIDE RECORDS SUMMARY | ~2020-08-05 | XMS | Encounter Summary ---
Demographics + + + | Address | [address] [facility] | | | [place] [address] | + + + | Home Phone | | + + + | Preferred Language | Unknown | + + + | Marital Status | | + + + | Mandaen Affiliation | CHR | + + + [...] + | Tico Burns | ECON | [address] | | | | | [place], [place] | | | | | [address] | | + + + + + Care Team Providers + +------+ + | Care Geological Drafter Name | Role | Phone | + [...] | | Center at [facility] [address] | MANAGER PAPER [address] | | | | | [address] [place] | [facility] [address] | | | | | for Health and | [place], [place] | | | | | [place] [address] | [address] | | | | | [place], [place] | [phone] | | | | | [address] | | | | | | [phone] | | | +--------+ + + + [...]
--- OUTSIDE RECORDS SUMMARY | ~2020-08-05 | XMS | Encounter Summary ---
Demographics + + + | Address | [address] [facility] | | | [place] [address] | + + + | Home Phone [...] + + + | Author | [facility] | | | and [place] | + + + | Organization | [facility] | | | [...] [place] | | | | | [address] | | + + + + + Care Team Providers + +------+ + | Care Manufacturing Operations Manager Name | Role | Phone | + +------+ + | Moe Bella MD | PCP | | + +------+ + Encounter Details +--------+ + + + + | Date | Type | Department | Care Team | Description | +--------+ + + + + | 06/02/ | Orders Only | [facility] | Provider, | | | 2018 | | SYSTEM GENERIC OP | MD [address] | | | | | [address] | [address] | | | | | [address] [place], [place] | [place] [address] | | | | | [address] | | | | | | [phone] | | | +--------+ + + + [...]
--- OUTSIDE RECORDS SUMMARY | ~2020-08-05 | XMS | Encounter Summary ---
Demographics + + + | Address | [address] [facility] | | | [place] [address] | + + + | Home Phone [...] + | Tico Burns | ECON | [address] | | | | | [place], [place] | | | | | [address] | | + + + + + Care Team Providers + +------+ + | Care Dramatic Critic Name | Role | Phone | + +------+ + | Moe Bella MD | PCP | | + +------+ + Encounter Details +--------+ + + + + | Date | Type | Department | Care Team | Description | +--------+ + + + + | 03/14/ | Abstract | Digestive Health | Jesus Perez, | | | 2012 | | [place] [address] [address] | [address] [facility] | | | | | [facility] | [facility] | | | | | for Health and | [place], [place] | | | | | [facility], [place] [address] | [address] | | | | | [place], [place] | [phone] | | | | | [address] | | | | | | [phone] | | | +--------+ + + + [...]
--- OUTSIDE RECORDS SUMMARY | ~2020-08-05 | XMS | Encounter Summary ---
Demographics + + + | Address | [address] [facility] | | | [place] [address] | + + + | Home Phone [...] | Author | [facility] | | | and [place] | + + + | Organization | [facility] [...] [address] | | | | | [place], [place] | | | | | [address] | | + + + + + Care Team Providers + +------+ + | Care Air Carrier Inspector Name | Role | Phone | + +------+ + PCP | Unavailable | + +------+ + Encounter Details +--------+ + + + + | Date | Type | Department | Care Team | Description | +--------+ + + + + | 01/21/ | Hospital | [facility] | Conversion | | | 2011 | Encounter | [facility] [address] | Transaction, | | | | | [address] | Provider Unknown | | | | | [place] | [phone] | | | | | [address] | | | | | | [phone] | | | +--------+ + + + [...]
--- OUTSIDE RECORDS SUMMARY | ~2020-08-05 | XMS | Encounter Summary ---
Demographics + + + | Address | [address] [facility] | | | [place] [address] | + + + | Home Phone [...] + | Tico Burns | ECON | [address] | | | | | [place], [place] | | | | | [address] | | + + + + + Care Team Providers + +------+ + | Care Knife Machine Operator Name | Role | Phone [...] | | | Metabolism | obesity | [address] | | | | | (HCC) DM | [address] | Ave | | | | | (diabetes | [address] | [place], [place] | | | | | mellitus) | [place], [place] | [address] | | | | | (HCC) | [address] | Phone: | | | | | Hypertension | Phone: | [phone] | | | | | | [phone] | Fax: | | | | | Hyperlipidem | Fax: | [phone] | | | | | [place] | [phone] | | | | | | Procedures | | | | | | | CONSULT TO | | | | | | | ENDO | | | | | | | [address] | | | | | | | [address] | | | +--------+--------+ + + + + Encounter Details +--------+ + + + + | Date | Type | Department | Care Team | Description | +--------+ + + + + | 11/22/ | Bessemer Converter Blower | Digestive Health | Violetta Byers, | Morbid obesity (HCC) | | 2012 | | Center at [facility] [address] | CLINICAL DENTAL TECHNICIAN [address] | (Primary Dx); DM | | | | [address] | [address] | (diabetes mellitus) | | | | [facility] and | [place], [place] | (HCC); Hypertension; | | | | [place] [address] | [address] | Hyperlipidemia | | | | [place], [place] | [phone] | | | | | [address] | | | | | | [phone] | | | +--------+ + + + [...] Notes Telephone Encounter - Savanna Ho - 11/22/2012 1:12 PM PSTIssac Shipley's request I cheri david a referral to Dr Garcia prior to his deepika scheduled 12/27/12. documented in this encounter Plan of Treatment Not on filedocumented as of this encounter Visit Diagnoses + + | Diagnosis | + + | Morbid obesity (HCC) - Primary Morbid obesity | + + | DM (diabetes mellitus) ([facility]) Type II or unspecified type diabetes mellitus without | | mention of complication, not stated as uncontrolled | + + | Hypertension Unspecified essential hypertension | + + | Hyperlipidemia Other and unspecified hyperlipidemia | + + documented in this encounter"
--- OUTSIDE RECORDS SUMMARY | ~2020-08-05 | XMS | Encounter Summary ---
Demographics + + + | Address | [address] | | | [place] [address] | + + + | Home Phone [...] | Author | [facility] | | | and [place] | + + + | Organization | [facility] [...] [place] | | | | | [address] | | + + + + + Care Team Providers + +------+ + | Care Slotter Operator Helper Name | Role | Phone [...] | | | | | | [place] | | | | | [...] + + | 06/01/ | Hospital | [facility] | Chauncey Lee MD | | | 2016 - | Encounter | [facility] | [address] | | | | | [address] | [place] [address] | | | 06/02/ | | [place] [id number] | [phone] | | | 2015 | | [phone] | | | +--------+ + + + [...] might be differ ent from the original. [facility] - [facility] NEUROSURGERY DISCHARGE SUMMARY Patient Name: Gerard Burns [...] as needed for Pain. Unchanged Medications Details TOMAS BREEZE 2 TEST Disk Generic drug: Glucose Blood Use as directed TOMAS MICROLET LANCETS Misc Use as directed CRESTOR 40 MG tablet Generic drug: rosuvastatin Take 40 mg by mouth Daily. ergocalciferol 40659 UNITS capsule Take 50,000 Units by mouth [...] LANCETS MISC Use as directed ergocalciferol (ERGOCALCIFEROL) 80731 UNITS capsule 50,000 Units Take 50,000 Units [...] t raise your hands over your head [id number])after your surgery. Don t drive until your [...] this your 1 month post op appointment. [phone] [employer]. [address] [place] [address]. All righ ts reserved. This information is [...] | | | 12 | | | 66150 UNITS capsule | | | | | [...] + + documented as of this encounter H&P Notes Chauncey Lee MD - 06/01/2016 8:27 AM PDTSURGICAL INTERIM HISTORY & PHYSICAL UPDATE Pt. Name/Age/: Gerard Burns 51 y.o. 1965 Date of admission: 06/01/2016 The current H&P was reviewed. The patient was reexamined. Re-evaluation of the patient co nfirms the necessity for the scheduled procedure. No change has occurred in the patient s condition since the H&P was completed less than 30 days ago. VERIFICATION OF CONSENT (PARQ) The patient was counseled regarding the procedure, its indications, risks, potential compli cations and alternatives. Any questions were answered. Consent was obtained. Electronically signed by: Chauncey Lee MD, 06/01/2016 8:27 [facility] ose Mirza PA - 05/10/2016 8:19 AM PDT ERIC Maldonado [address], [address] [place] [address] FAX: NEUROSURGERY HISTORY AND PHYSICAL EXAMINATION CHIEF [...] by mouth 2 times daily. ergocalciferol (ERGOCALCIFEROL) 37627 UNITS capsule Take 50,000 Units by mouth Once a w elem. FLUoxetine (PROZAC) 20 mg capsule Take 20 [...] has no apparent deficits with short or intermediate card tender memory. CRANIAL NERVES: II: Acuity is intact. [...] 5 5 Wrist Flexion 5 4 Accounts Payable Accountant Strength 5 4 Hip Flexion 5 5 [...] 05/10/2016 8:22 documented in th is encounter Miscellaneous Notes Plan of Care - Tatianna Padgett, OT - 06/02/2016 2:09 PM PDT Problem: Patient Care Overview (Adult) Goal: Care Team Goals & Evaluation PROBLEM-RELATED GOALS: 1. Prevent post operative hypoxia complete 2. Prevent post operative atelectasis/pneumonia complete 3. Prevent obstructive sleep apnea 4. Pt will tolerate dysphagia advanced textures with thin liquids with no overt s/sx of air way compromise 06/03/16. 5. Modified independent in room and roberto by 06/04/16 6. Pt s pain will be scored at 3 out of 10 by 06-03-2016. 7. Sensation to all extremities will remain at pt s baseline or improve and extremities x 4 will be 5/5 by 06-03-2016. 8. Pt will ambulate with staff by 06-03-2016. 9. Pt will be free from s/s of infection through 06-08-2016. 10. Pt will have BM by 06-04-2016. 11. Pt. To have good carryover of post-op precautions by 06/02/16 STRATEGY TO ACHIEVE GOALS: 1. Titrate oxygen to room air keeping oxygen saturation at or >92% by 06/04/16 2. Patient to achieve at least 75% of predicted normal for inspirometer and or using on own by 06/04/16 3. Patient to use cpap for obstructive sleep apnea for duration of stay. - Active participation in all PT interventions - Out of bed for all meals 6. Assess pain q4h and PRN. Medicate PRN and re-evaluate pain 30-60 minutes after and re-me dicate PRN. Assist with repositioning for comfort. 7. Assess CMS and muscle strengths q4h and PRN. Notify MD if abnormalities are found. 8. Assist up to bedside commode and chair on post-op day one, encourage ambulation to bathr oom and in halls as appropriate. Use FWW and staff assist for safety. 9. Assess dressing and vitals with temps q4h and PRN. Monitor lab work as ordered. Notify M D with concerns. 10. Assess bowel tones q shift and PRN. Encourage fluid intake and ambulation to help promo te BM. Monitor for bowel movements and if no BM by 06-03-2016 use PRN bowel protocol. 11. Assist pt to BSC or bathroom as needed. If no void within 6 hours, bladder scan pt and follow MD orders to assist empting the bladder. -Pt. To be participate in OT eval. And be receptive to recommendations. Occupational Therapy Acute Initial Evaluation Note Patient Information Patient Name: Gerard Burns Date of : 1965 Age: 51 y.o. History No diagnosis found. 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, cervical region Arthritis Sleep apnea uses CPAP Past Surgical History Procedure Laterality Date Neck surgery Sleeve gastroplasty 04/2013 Thyroidectomy 03/2012 Tumor removal GROIN Lipoma removal 04/2013 Cervical spine surgery N/A 06/01/2016 Procedure: C4-5, C5-6, C6-7 Anterior Cervical Discectomy Fusion; Surgeon: Chauncey Lee MD; Location: [facility] OR Allergies Allergen Reactions Codeine Sulfate Itching and Rash Precautions/Limitations: swallowing Left Lower Extremity Weight-Bearing: full weight-bearing Right Lower Extremity Weight-Bearing: full weight-bearing Evaluation SUBJECTIVE: History of Presenting Problem: Gerard Burns is a 51 y.o. who presents t o therapy for impaired mobility following neck surgery. Pt has hx of progressive neck pain a nd L arm pain and progressive weakness w/failed conservative mgmt. Pt is now s/p C4-7 ACDF ( C-collar) Patient is right handed. OT Diagnosis: OT eval. and treat s/p ACDF Previous Level of Function: Transferring: independent Ambulation: independent Toileting: independent Bathing: independent Dressing: independent Eating: independent Communication: understands/communicates without difficulty Swallowin-->swallows foods/liquids without difficulty Equipment Currently Used at Home: none Prior Functional Level Comment: Pt was independent w/o need for assist device prior to surg vaishali. 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 He has a and dependent children at home . 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 Has a FWW Patient s Goals: "I am going home later today," OT Visit Summary: OT approached Pt. and he states he was given pain medication and is very sleepy. Pt. was able to recite back his post-op precautions and states that he has done th is before and is aware of what to expect. He states his has done [employer] collar manageme nt and is a "pro". Pt. states he has been up walking on his own and does not want to do it right now. He has all the necessary equip. he needs at home. He expressed no issues with OT and no concerns. Occupational Therapy will follow Gerard Burns evaluation only until discharge from therapy or discharged from the hospital. Occupational Therapy Anticipated Discharge Needs: Ongoing occupational therapy required. DC disposition TBD. Post discharge occupational therapy recommendation: no further OT Equipment Recommendations: none Identified Problems Needing Skilled Intervention: OT eval. and treat s/p ACDF, aerobic ca pacity/endurance, other (see comments) Planned Interventions: Patient Status/Goals Reflects last filed data of patient status; may be from multiple contributors. FIM: ADLs IADLs Therapeutic Exercise Functional Endurance Cognitive Cognitive Tests Bed Mobility Transfers Wheelchair Mobility Balance ROM Strength STG Goals LTG Goals Demonstrates need for referral to other service: Assessment: Occupational therapy orders received and acknowledged. Objective impairments i nclude post-op precautions with "C" collar,. These impairments are causing functional limita tions with patient s inability to return to work or complete BADLs without help from famil y and community. . Prognosis: good, to achieve stated therapy goal of going home later today. Patient and/or family has indicated understanding of treatment needs and actively participa lou in the creation of this plan for care. Today's Treatment Start Time: 1108 Stop time: 1125 Time Calculation: 17 minutes Missed Treatment Time: minutes Total Treatment Time: 17 minutes TimedTreatment Code Minutes: minutes Objective: Education: post-op review and collar management Treatment Provided: Eval. And review of precautions Assessment: OT able to glean information from Pt. Regarding PLOF and home environment. He declined to get up and dress until it was closer to time to go home. Plan for next treatment: No further OT. Electronically signed by: Tatianna Padgett OT, 06/02/2016 14:05 lan of Mirtha Orr - 06/02/2016 12:27 PM PDTDischarge Planning: Met with Gerard regarding discharging today. He is all set up with DME equipment at home. [facility] was declined. He uses [facility] for his pharmacy needs. His spouse will transport him home today. She will help out as needed. Electronically signed by: Mirtha Hoyt 06/02/2016 12:28 lan of [facility] - Gee Melo PT - 06/02/2016 10:06 AM PDTProblem: Patient Care Overview (Adult) Goal: Care Team Goals & Evaluation PROBLEM-RELATED GOALS: 1. Prevent post operative hypoxia complete 2. Prevent post operative atelectasis/pneumonia complete 3. Prevent obstructive sleep apnea 4. Pt will tolerate dysphagia advanced textures with thin liquids with no overt s/sx of air way compromise 06/03/16. 5. Modified independent in room and roberto by 06/04/16 6. Pt s pain will be scored at 3 out of 10 by 06-03-2016. 7. Sensation to all extremities will remain at pt s baseline or improve and extremities x 4 will be 5/5 by 06-03-2016. 8. Pt will ambulate with staff by 06-03-2016. 9. Pt will be free from s/s of infection through 06-08-2016. 10. Pt will have BM by 06-04-2016. STRATEGY TO ACHIEVE GOALS: 1. Titrate oxygen to room air keeping oxygen saturation at or >92% by 06/04/16 2. Patient to achieve at least 75% of predicted normal for inspirometer and or using on own by 06/04/16 3. Patient to use cpap for obstructive sleep apnea for duration of stay. - Active participation in all PT interventions - Out of bed for all meals 6. Assess pain q4h and PRN. Medicate PRN and re-evaluate pain 30-60 minutes after and re-me dicate PRN. Assist with repositioning for comfort. 7. Assess CMS and muscle strengths q4h and PRN. Notify MD if abnormalities are found. 8. Assist up to bedside commode and chair on post-op day one, encourage ambulation to bathr oom and in halls as appropriate. Use FWW and staff assist for safety. 9. Assess dressing and vitals with temps q4h and PRN. Monitor lab work as ordered. Notify M D with concerns. 10. Assess bowel tones q shift and PRN. Encourage fluid intake and ambulation to help promo te BM. Monitor for bowel movements and if no BM by 06-03-2016 use PRN bowel protocol. 11. Assist pt to BSC or bathroom as needed. If no void within 6 hours, bladder scan pt and follow MD orders to assist empting the bladder. Outcome: Improving Physical Therapy Daily Treatment Note Patient Information Patient Name: Gerard Burns Date of : 1965 Age: 51 y.o. Precautions/Limitations: swallowing Left Lower Extremity Weight-Bearing: full weight-bearing Right Lower Extremity Weight-Bearing: full weight-bearing History of Presenting Problem: impaired mobility following neck surgery. Pt has hx of progr essive neck pain and L arm pain and progressive weakness w/failed conservative mgmt. Pt is n ow s/p C4-7 ACDF (C-collar) PT Diagnosis: Impaired mobility Start Time: 829 Stop time: 854 Time Calculation: 25 minutes Missed Treatment Time: 0 minutes Total Treatment Time: 25 minutes TimedTreatment Code Minutes: 25 minutes Subjective: Pt received in bed supine. No family present. Pt with c/o 4/10 pain in the are a between his shoulder blades. Objective: Treatment Provided: Bed mobility, transfer training, gait training, dynamic gait assessment , cervical spine precautions - C, ergonomic education. Education: Pt educated on work and home ergonomics, instructed on safety, re-inforced cervi nj spine precautions Patient Status/Goals: Reflects last filed data of patient status; may be from multiple contributors. Gait . (.) Level of [place] : supervision required Assistive Device: bariatric, 2 wheeled walker (FWW) Distance (feet): 160 feet Gait Pattern Analysis: 2-point gait Impairments: decreased flexibility, impaired balance, postural control impaired Stairs Number of Stairs: 4 Handrail Location: right side (ascending) Level of [place]: supervision required Assistive Device: none Technique Used: step to step (ascending), step to step (descending) Safety Issues: balance decreased during turns, weight-shifting ability decreased Impairments: decreased flexibility, impaired balance, postural control impaired Transfers Sit-Stand, Level of [place]: supervision required Stand-Sit, Level of [place]: supervision required [id number], Assistive Device: none Safety Issues: weight-shifting ability decreased Impairments: postural control impaired, impaired balance Bed Mobility Assistive Device: bed rails Roll Left, Level of [place]: modified independence Supine to Sit, Level of [place]: verbal cues required Sit to Supine, Level of [place]: (Not tested) Safety Issues: decreased use of arms for pushing/pulling Impairments: decreased flexibility, impaired balance Balance Sitting Balance: Static: good balance Sitting Balance: Dynamic: good balance Standing Balance: Static: good balance Standing Balance: Dynamic: good balance Dynamic Gait Index Gait Level Surface: 2 - Mild impairment, walks 20', uses assistive device, slower speed, mi ld gait deviation Change in Gait Speed: 2 - Mild impairment: is able to change speeds but demonstrates mild g ait deviation or not gait deviation but unable to achieve a significant change in velocity o r uses assistive device. Horizontal Head Turns: 3 - Normal: performs head turn smoothly with no change in gait (gaze s horizontally due to restriction of c-collar) Vertical Head Turns: 3 - Normal: performs head turns smoothly with no change in gait (gazes vertically due to restriction of c-collar) Gait Pivot Turn: 3 - Normal: Pivot turns safely within 3 seconds and stops quickly with no loss of balance Step over Obstacle: 3 - Normal: is able to step over the box without changing gait speed, n o evidence of imbalance Step around Obstacle: 3 - Normal: is able to walk around both cones without changing gait s peed, no evidence of imbalance Steps: 1 - Moderate impairment: two feet to a stair, must use rail Total score: 20 Fall Risk: 19-22 - moderate fall risk Functional Endurance Fair STG GOALS Bed Mobility Goal, Activity Type: supine to sit/sit to supine [place] Level: independent Assistive Device: none Time to Achieve: 2 - 3 days Goal Status: progressing toward goal Transfer Training Goal, Activity Type: sit to stand/stand to sit [place] Level: modified independence Assistive Device: 2 wheeled walker (FWW) Time to Achieve: 2 - 3 days Goal Status: progressing toward goal Gait Training Goal, [place] Level: modified independence Assistive Device: bariatric Distance: 150 Time to Achieve: 2 - 3 days Goal Status: progressing toward goal Stairs Goal, [place] Level: modified independence Assistive Device: none Number of Stairs: 4 Time to Achieve: 2 - 3 days Goal Status: progressing toward goal Additional Goal #1: Pt and will be independent w/ spinal precautions and mgmt of colla r Time to Achieve: 2 - 3 days Goal Status: new, progressing toward goal Assessment: Pt reports he is close to baseline for ambulation and stairs and very close to meeting his therapy goals. Pt scored 20 on DGI putting him at a moderate fall risk, however he's progressing quickly and expected to be modified independent with all mobility in the n ext visit. Pt demonstrate good safety with walking in the roberto and therefore he was instruc lou to call for assistance with mobility and to go for supervised walks for the remainder of his admission. Pt will benefit from 1 more session of skilled physical therapy to show con sistency with safety and to improve his independence. Physical Therapy Anticipated Discharge Needs are: home Have the anticipated discharge needs changed? no Post discharge physical therapy recommendation: Pending progress and medical clearance alicia joseph pt be discharged home and after a period of recovery, consider OPPT if deficits persi st. Plan for next treatment: Daily, LKC, 1P, FWW, progressive functional mobility, spinal educa tion, collar training Electronically signed by: Moe Melo, PT, 06/02/2016 9:55 lan of Care - Yee Eastman, DX BOARD OPERATOR - 06/02/2016 9:48 AM PDTProblem: Patient Care Overview (Adult) Goal: Care Team Goals & Evaluation PROBLEM-RELATED GOALS: 1. Prevent post operative hypoxia complete 2. Prevent post operative atelectasis/pneumonia complete 3. Prevent obstructive sleep apnea 4. Pt will tolerate dysphagia advanced textures with thin liquids with no overt s/sx of air way compromise 06/03/16. 5. Modified independent in room and roberto by 06/04/16 6. Pt s pain will be scored at 3 out of 10 by 06-03-2016. 7. Sensation to all extremities will remain at pt s baseline or improve and extremities x 4 will be 5/5 by 06-03-2016. 8. Pt will ambulate with staff by 06-03-2016. 9. Pt will be free from s/s of infection through 06-08-2016. 10. Pt will have BM by 06-04-2016. STRATEGY TO ACHIEVE GOALS: 1. Titrate oxygen to room air keeping oxygen saturation at or >92% by 06/04/16 2. Patient to achieve at least 75% of predicted normal for inspirometer and or using on own by 06/04/16 3. Patient to use cpap for obstructive sleep apnea for duration of stay. - Active participation in all PT interventions - Out of bed for all meals 6. Assess pain q4h and PRN. Medicate PRN and re-evaluate pain 30-60 minutes after and re-me dicate PRN. Assist with repositioning for comfort. 7. Assess CMS and muscle strengths q4h and PRN. Notify MD if abnormalities are found. 8. Assist up to bedside commode and chair on post-op day one, encourage ambulation to bathr oom and in halls as appropriate. Use FWW and staff assist for safety. 9. Assess dressing and vitals with temps q4h and PRN. Monitor lab work as ordered. Notify M D with concerns. 10. Assess bowel tones q shift and PRN. Encourage fluid intake and ambulation to help promo te BM. Monitor for bowel movements and if no BM by 06-03-2016 use PRN bowel protocol. 11. Assist pt to BSC or bathroom as needed. If no void within 6 hours, bladder scan pt and follow MD orders to assist empting the bladder. Outcome: Improving Goal Evaluation: Patient is independent with CPAP use. He is using the IS independently and is achieving go als. He is on room air. lan of Care - [facility] negrito, Neisha Buckner RN - 06/02/2016 3:19 AM PDTProblem: Patient Care Overview (Adult) Goal: Care Team Goals & Evaluation PROBLEM-RELATED GOALS: 1. Prevent post operative hypoxia 2. Prevent post operative atelectasis/pneumonia 3. Prevent obstructive sleep apnea 4. Pt will tolerate dysphagia advanced textures with thin liquids with no overt s/sx of air way compromise 06/03/16. 5. Modified independent in room and roberto by 06/04/16 6. Pt s pain will be scored at 3 out of 10 by 06-03-2016. 7. Sensation to all extremities will remain at pt s baseline or improve and extremities x 4 will be 5/5 by 06-03-2016. 8. Pt will ambulate with staff by 06-03-2016. 9. Pt will be free from s/s of infection through 06-08-2016. 10. Pt will have BM by 06-04-2016. STRATEGY TO ACHIEVE GOALS: 1. Titrate oxygen to room air keeping oxygen saturation at or >92% by 06/04/16 2. Patient to achieve at least 75% of predicted normal for inspirometer and or using on own by 06/04/16 3. Patient to use cpap for obstructive sleep apnea for duration of stay. - Active participation in all PT interventions - Out of bed for all meals 6. Assess pain q4h and PRN. Medicate PRN and re-evaluate pain 30-60 minutes after and re-me dicate PRN. Assist with repositioning for comfort. 7. Assess CMS and muscle strengths q4h and PRN. Notify MD if abnormalities are found. 8. Assist up to bedside commode and chair on post-op day one, encourage ambulation to bathr oom and in halls as appropriate. Use FWW and staff assist for safety. 9. Assess dressing and vitals with temps q4h and PRN. Monitor lab work as ordered. Notify M D with concerns. 10. Assess bowel tones q shift and PRN. Encourage fluid intake and ambulation to help promo te BM. Monitor for bowel movements and if no BM by 06-03-2016 use PRN bowel protocol. 11. Assist pt to BSC or bathroom as needed. If no void within 6 hours, bladder scan pt and follow MD orders to assist empting the bladder. Outcome: Improving Goal Evaluation: using I.S.independently w/good effort. Currently on cpap with no O2 added, sats >92%. Tole rating dysphagia advanced diet w/thin liquids, no evidence of aspiration. Ambulated to bathr oom to void, gait steady. Cervical collar in place at all times per MD order. Steri strips t o anterior neck incision clean/dry. TI w/minimal output. Pain managed fairly well w/oxycodon e and flexeril. No numbness or tingling to upper extremities, baseline numbness to lower ext remities. Very mild weakness to LUE, remainder of extremities 5/5. lan of Care - Andrew Hoffman, DX BOARD OPERATOR - 06/01/2016 8:06 PM PDTProblem: Patient Care Overview (Adult) Goal: Care Team Goals & Evaluation PROBLEM-RELATED GOALS: 1. Prevent post operative hypoxia 2. Prevent post operative atelectasis/pneumonia 3. Prevent obstructive sleep apnea 4. Pt will tolerate dysphagia advanced textures with thin liquids with no overt s/sx of air way compromise 06/03/16. 5. Modified independent in room and roberto by 06/04/16 6. Pt s pain will be scored at 3 out of 10 by 06-03-2016. 7. Sensation to all extremities will remain at pt s baseline or improve and extremities x 4 will be 5/5 by 06-03-2016. 8. Pt will ambulate with staff by 06-03-2016. 9. Pt will be free from s/s of infection through 06-08-2016. 10. Pt will have BM by 06-04-2016. 11. Pt will void within 6 hours of arriving to the floor on admission date. STRATEGY TO ACHIEVE GOALS: 1. Titrate oxygen to room air keeping oxygen saturation at or >92% by 06/04/16 2. Patient to achieve at least 75% of predicted normal for inspirometer and or using on own by 06/04/16 3. Patient to use cpap for obstructive sleep apnea for duration of stay. - Active participation in all PT interventions - Out of bed for all meals 6. Assess pain q4h and PRN. Medicate PRN and re-evaluate pain 30-60 minutes after and re-me dicate PRN. Assist with repositioning for comfort. 7. Assess CMS and muscle strengths q4h and PRN. Notify MD if abnormalities are found. 8. Assist up to bedside commode and chair on post-op day one, encourage ambulation to bathr oom and in halls as appropriate. Use FWW and staff assist for safety. 9. Assess dressing and vitals with temps q4h and PRN. Monitor lab work as ordered. Notify M D with concerns. 10. Assess bowel tones q shift and PRN. Encourage fluid intake and ambulation to help promo te BM. Monitor for bowel movements and if no BM by 06-03-2016 use PRN bowel protocol. 11. Assist pt to BSC or bathroom as needed. If no void within 6 hours, bladder scan pt and follow MD orders to assist empting the bladder. RESTRAINT-RELATED GOALS: STRATEGIES TO ACHIEVE RESTRAINT GOALS: Goal Evaluation: pt does IS well with good technique, sats doing well on 2L at 96%, CPAP set up on RA, pt r equests that no water be used in humidifier, and denies need for help with mask. lan of [facility] - Rona Mendez RN - 06/01/2016 6:37 PM PDTProblem: Patient Care Overview (Adult) Goal: Care Team Goals & Evaluation PROBLEM-RELATED GOALS: 1. Prevent post operative hypoxia 2. Prevent post operative atelectasis/pneumonia 3. Prevent obstructive sleep apnea 4. Pt will tolerate dysphagia advanced textures with thin liquids with no overt s/sx of air way compromise 06/03/16. 5. Modified independent in room and roberto by 06/04/16 6. Pt s pain will be scored at 3 out of 10 by 06-03-2016. 7. Sensation to all extremities will remain at pt s baseline or improve and extremities x 4 will be 5/5 by 06-03-2016. 8. Pt will ambulate with staff by 06-03-2016. 9. Pt will be free from s/s of infection through 06-08-2016. 10. Pt will have BM by 06-04-2016. 11. Pt will void within 6 hours of arriving to the floor on admission date. STRATEGY TO ACHIEVE GOALS: 1. Titrate oxygen to room air keeping oxygen saturation at or >92% by 06/04/16 2. Patient to achieve at least 75% of predicted normal for inspirometer and or using on own by 06/04/16 3. Patient to use cpap for obstructive sleep apnea for duration of stay. - Active participation in all PT interventions - Out of bed for all meals 6. Assess pain q4h and PRN. Medicate PRN and re-evaluate pain 30-60 minutes after and re-me dicate PRN. Assist with repositioning for comfort. 7. Assess CMS and muscle strengths q4h and PRN. Notify MD if abnormalities are found. 8. Assist up to bedside commode and chair on post-op day one, encourage ambulation to bathr oom and in halls as appropriate. Use FWW and staff assist for safety. 9. Assess dressing and vitals with temps q4h and PRN. Monitor lab work as ordered. Notify M Alissa with concerns. 10. Assess bowel tones q shift and PRN. Encourage fluid intake and ambulation to help promo te BM. Monitor for bowel movements and if no BM by 06-03-2016 use PRN bowel protocol. 11. Assist pt to BSC or bathroom as needed. If no void within 6 hours, bladder scan pt and follow MD orders to assist empting the bladder. RESTRAINT-RELATED GOALS: STRATEGIES TO ACHIEVE RESTRAINT GOALS: Outcome: Improving Goal Evaluation: Pt arrived to the floor about 1230 post cervical fusion, grade C collar. He has steri stri ps to the right anterior neck that are intact, incision is well approximated without complic ations noted. TI drain is without hematoma or complications noted, draining sanguineous outp ut, 30 cc out since arriving to the floor. Pt was dangled on arrival and [facility] with CGA. Bilateral legs and right upper extremity is 5/5. 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 Left upper extremity is 4/5 to the forearm area. Pt denies numbness, tingling or pain to either upper extremity. He does have a long standing numbness to bilateral feet which is u nchanged. His collar has remained on since arriving. He started with IV morphine and PO flex eril on arrival and once he was tolerating food items he was started on PO oxycodone. He st ates they work best for his pain so far. Lowest pain score has been 2/10 today. HRR. Lung sounds clear in all quads, he is on O2 2 L/NC to keep SPO2 > 93%. Bowel tones are active in all quads, last BM was this morning. Speech completed his swallow evaluation and he tolerat ed an advance dysphagia diabetic diet for dinner, ate 100%. His blood sugar of 250 was cover ed the insulin sliding scale. Pt drinking very well so IVF were saline locked. He is voiding without difficulty. SCD and bed alarm are on. Pt does call appropriately. lan of Care - Sharita Mcclendon, PT - 06/01/2016 4:05 PM PDT Problem: Patient Care Overview (Adult) Goal: Care Team Goals & Evaluation PROBLEM-RELATED GOALS: 1. Prevent post operative hypoxia 2. Prevent post operative atelectasis/pneumonia 3. Prevent obstructive sleep apnea 4. Pt will tolerate dysphagia advanced textures with thin liquids with no overt s/sx of air way compromise 06/03/16. STRATEGY TO ACHIEVE GOALS: 1. Titrate oxygen to room air keeping oxygen saturation at or >92% by 06/04/16 2. Patient to achieve at least 75% of predicted normal for inspirometer and or using on own by 06/04/16 3. Patient to use cpap for obstructive sleep apnea for duration of stay. RESTRAINT-RELATED GOALS: STRATEGIES TO ACHIEVE RESTRAINT GOALS: Physical Therapy Acute Initial Evaluation Note Patient Information Patient Name: Gerard Burns Date of : 1965 Age: 51 y.o. History No diagnosis found. 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 who presents t o therapy for impaired mobility following neck surgery. Pt has hx of progressive neck pain a nd L arm pain and progressive weakness w/failed conservative mgmt. Pt is now s/p C4-7 ACDF ( C-collar) PT Diagnosis: Impaired mobility Impairments Found: aerobic capacity/endurance, ergonomics and body mechanics, gait, locomot ion, and balance Previous Level of Function: Transferring: independent Ambulation: independent Toileting: independent Bathing: independent Dressing: independent Eating: independent Communication: understands/communicates without difficulty Swallowin-->swallows foods/liquids without difficulty Equipment Currently Used at Home: none Prior Functional Level Comment: Pt was independent w/o need for assist device prior to surg vaishali Role/Relationships: Significant Relationships: spouse Living Environment/Accessibility: Lives With: spouse Living Arrangements: house Home Accessibility: grab bars present (bathtub) Number of Stairs to Enter Home: 0 Number of Stairs Within Home: 0 Financial Concerns: none Transportation Available: family or friend will provide Patient s Goals: improved mobility and pain reduction OBJECTIVE : Patient Status/Goals: Reflects last filed data of patient status; may be from multiple contributors. Gait 3 side steps along eob Level of [place] : contact guard assist Assistive Device: (hand hold) Distance (feet): 2 Impairments: impaired balance, pain, postural control impaired Stairs Pt has no stairs at home but has 4 steps to access work environment therefor stair training is indicated Transfers Sit-Stand, Level of [place]: minimum assist (75% patient effort) Stand-Sit, Level of [place]: contact guard assist [id number], Assistive Device: (Hand hold) Safety Issues: weight-shifting ability decreased Impairments: impaired balance, pain, postural control impaired Bed Mobility Assistive Device: bed rails Supine to Sit, Level of [place]: verbal cues required Sit to Supine, Level of [place]: not tested Safety Issues: decreased use of legs for bridging/pushing Impairments: pain, impaired balance, postural control impaired ROM ROM limited by soft tissue approximation Strength Strength Testing Results: no strength deficits were identified Muscle Tone Muscle Tone Assessment Muscle Tone Assessment: within normal limits STG GOALS Bed Mobility Goal, Activity Type: supine to sit/sit to supine [place] Level: independent Assistive Device: none Time to Achieve: 2 - 3 days Goal Status: new, progressing toward goal Transfer Training Goal, Activity Type: sit to stand/stand to sit [place] Level: modified independence Assistive Device: 2 wheeled walker (FWW) Time to Achieve: 2 - 3 days Goal Status: new, progressing toward goal Gait Training Goal, [place] Level: modified independence Assistive Device: 2 wheeled walker (FWW) Distance: 150 Time to Achieve: 2 - 3 days Goal Status: new, progressing toward goal Stairs Goal, [place] Level: modified independence Assistive Device: none Number of Stairs: 4 Time to Achieve: 2 - 3 days Goal Status: new Additional Goal #1: Pt and will be independent w/ spinal precautions and mgmt of colla r Time to Achieve: 2 - 3 days Goal Status: new, progressing toward goal Assessment: Physical therapy orders received and acknowledged. Objective impairments inclu de balance, postural control, functional activity tolerance and knowledge deficits. These im pairments are causing functional limitations with patient s inability to mobilize at a lev el necessary for safe home discharge. Complexities contributing to the need for skilled ther apy include pain, very high BMI, new onset cervical fusion and C-collar restrictions. Rehabilitation potential: Patient demonstrates good potential to achieve established goals to address the documented impairments by participating in skilled physical therapy services . PLAN: balance training, bed mobility training, gait training, manual therapy techniques, orthotic fitting/training, patient/family education, postural re-education, stair training, transfer training Physical Therapy will follow Gerard Burns daily until discharge from therapy or dis charged from the hospital. Anticipated days that therapy will be provided: 06/04/16 Physical Therapy Anticipated Discharge Needs: Ongoing PT services required. DC disposition TBD. Post discharge physical therapy recommendation: TBD Equipment Recommendations: TBD, pt has FWW if needed Patient and/or family has indicated understanding of treatment needs and actively participa lou in the creation of this plan for care. Today's Treatment Start Time: 1515 Stop time: 1545 Time Calculation: 30 minutes Missed Treatment Time: minutes Total Treatment Time: 30 minutes TimedTreatment Code Minutes: 15 minutes Objective: Treatment Provided: PT eval completed. Pt also participated in bed mob, transfers, initiati on of gait, spinal education and discussion re: mgmt of collar w/ C restrictions Education: Role of PT, safety w/ mobility, pain mgmt, spinal precautions, C-collar mgmt Assessment: Pt demonstrated progress toward functional goals. He was able to perform bed mo b w/o need for physical assist however did require light assist for transfers and gait d/t f eelings of instability which may be r/t recent morphine dose. Pt will benefit from continued PT interventions to promote increased independence w/ functional activities necessary for s afe home discharge. Plan for next treatment: Daily, LKC, 1P, FWW, progressive functional mobility, spinal educ ation, collar training Electronically signed by: Sharita Odonnell PT, 06/01/2016 15:54 lan of Care - Slime Marcos, Speech Pathologist - 06/01/2016 3:55 PM PDT Problem: Patient Care Overview (Adult) Goal: Care Team Goals & Evaluation PROBLEM-RELATED GOALS: 1. Prevent post operative hypoxia 2. Prevent post operative atelectasis/pneumonia 3. Prevent obstructive sleep apnea 4. Pt will tolerate dysphagia advanced textures with thin liquids with no overt s/sx of air way compromise 06/03/16. STRATEGY TO ACHIEVE GOALS: 1. Titrate oxygen to room air keeping oxygen saturation at or >92% by 7/31/16 2. Patient to achieve at least 75% of predicted normal for inspirometer and or using on own by 06/04/16 3. Patient to use cpap for obstructive sleep apnea for duration of stay. RESTRAINT-RELATED GOALS: STRATEGIES TO ACHIEVE RESTRAINT GOALS: Outcome: Improving Speech Therapy Swallow Plan of Care Initial Evaluation Note Patient Information Patient Name: Gerard Burns Date of : 1965 Age: 51 y.o. History No diagnosis found. 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 present and sta lou that he attended spine class. C brace in place. Session split in two as Pt stated he had significant neck pain and didn't want to sit up to trial PO until this was managed. Pt stat ed no history of dysphagia, mild hx of reflux, OME revealed no deficits, except very dry so th. NC in place satting 94%. Pt self fed bites of pureed, ground, chopped, mixed, bread, and cracker textures. He used a thin liquid wash by straw with bread and cracker and had no ove rt s/sx of airway compromise with any item. Pt stated that for comfort he wants a soft food diet. WEB ENGINEER rec'd and discussed with Pt that he have dysphagia advanced textures and thin liqu ids. Pt verbalized agreement of this plan. Pt likely will not need further WEB ENGINEER services, how ever WEB ENGINEER will check in with the Pt next day in case of further cervical swelling which may i mpact his abilty to eat and require he have furthe modification of his diet upon DC home. Speech language pathology will follow Gerard Burns 2 times/wk until discharge from therapy or discharged from the hospital. Speech Language Pathology Anticipated Discharge Needs are: home with family/caregiver Post discharge speech language pathology recommendation: None further NOMS FCM/NOMS Swallowin/CI Safe swallowing w/min cues Planned Interventions: diet texture modification, patient/caregiver education WEB ENGINEER Diagnosis: MIld pharyngeal dysphagia secondary to odynophagia and xerstomia At bedside, signs of aspiration included: patient complaint of difficulty swallowing Risk of aspiration: Mild Swallow strategies: alternate between small bites and sips of food/liquid, maintain uprig ht posture during/after eating for 30 mins, one small sip or bite at a time, single sips, sl ow rate Patient Status/Goals: Reflects last filed data of patient status; may be from multiple contributors. Swallow Recommendations Recommended Solid Texture: dysphagia advanced Recommended Liquid Texture: thin liquids Recommended Medication Delivery: whole pills with thin liquids Recommended Feeding/Eating Techniques: alternate between small bites and sips of food/liqui d, maintain upright posture during/after eating for 30 mins, one small sip or bite at a time , single sips, slow rate STG Goals Solid Texture Goal: Pt will tolerate dysphagia advanced textures with no overt s/sx of airw ay compromise. Time to Achieve Goals: 2 - 3 days Goal Status: new Start Time: 1405 Stop time: 1509 Time Calculation: 64 minutes Missed Treatment Time: 39 minutes Total Treatment Time: 25 minutes TimedTreatment Code Minutes: 0 minutes Electronically signed by: Slime Salazar, SPEECH PATHO, 06/01/2016 15:54 lan of Care - Chauncey Curtis, DX BOARD OPERATOR - 06/01/2016 1:17 PM PDTProblem: Patient Care Overvi ew (Adult) Goal: Care Team Goals & Evaluation PROBLEM-RELATED GOALS: 1. Prevent post operative hypoxia 2. Prevent post operative atelectasis/pneumonia 3. Prevent obstructive sleep apnea STRATEGY TO ACHIEVE GOALS: 1. Titrate oxygen to room air keeping oxygen saturation at or >92% by 06/04/16 2. Patient to achieve at least 75% of predicted normal for inspirometer and or using on own by 06/04/16 3. Patient to use cpap for obstructive sleep apnea for duration of stay. RESTRAINT-RELATED GOALS: STRATEGIES TO ACHIEVE RESTRAINT GOALS: Goal Evaluation: patient with neck collar on and did not want cpap at this time and is curr ently on 2 l/m with an oxygen saturation of 94%. Does not use water with Cpap. Patient achieved 90% of predicted normal for inspirometer. Will continue to follow patient p Note - Wu Lee MD - 06/01/2016 10:58 AM PDTFormatting of this note might be different from the origin al. Operative Note Gerard Burns 51 y.o. male 1965 [id number] Proc. Date 06/01/2016 Preop Dx Other spondylosis with radiculopathy, cervical region [M47.22] Cervical disc herniation Cervical foraminal stenosis Left arm weakness, progressive Severe morbid obesity BMI > 67 Postop Dx same Procedure 1. Anterior cervical discectomy and fusion C4-5, C5-6, and C6-7 2. Anterior cervical plating C4-7 using Zevo 3. Anterior structural allograft bone C4-5, C5-6, and C6-7 4. Microsurgical technique with use of operating microscope Anesthesia , Dr. Dominguez Surgeon Chauncey Lee MD - Primary ERIC Hand-C - Assisting EBL 104 Findings C4-7 spondylosis with C4-5 left disc herniation. C bracing. Complications none Specimens * No specimens in log * Drains Drain/Device Site 06/01/16 1042 #1 Right anterior neck (Active) OPERATIVE DETAILS: After obtaining consent, the patient was taken to the operating room and placed under gener al anesthesia. He was then positioned in a supine position on the Evens axis table with th e patient's face, neck, chest and extremities positioned and padded appropriately. He was pl aced in 10 lbs of holter traction. Fluoroscopy was then used to localize the level of C4-5 on lateral fluoroscopy and a right sided incision was planned in an anterior skin crease. H is neck was prepped and draped in standard fashion and a timeout was performed. All members of the surgical team agreed with the timeout. The anterior neck was then incised opening a 2 inch incision in the right anterior neck wit h a number 10 blade knife. Subcutaneous tissues were made hemostatic with Bovie cautery and dissection was taken down to and through the platysma. The platysma was then undermined us ing Metzenbaum scissors. Sharp dissection was then performed medial to the sternocleidomast oid that allowed an approach to the prevertebral space. The prevertebral fascia was opened with scissors and Kitner pushers. The fluoroscopy was then used to identify the C4-5 level. His severe morbid obesity prevented visualization below the midportion of C5 and required modification of the techniques and angles of approach throughout the case. Bovie cautery wa s then used to taken down the longus coli from C4 to C7 bilaterally. The Koros retractor wa s then inserted and the microscope was brought in for microsurgical dissection. The discs were then removed in similar fashion at C4-5, C5-6, and C6-7. The discs were fir st incised and then curetted. The high speed drill was then used to remove cervical osteoph ytes anteriorly, prepare the endplates for arthrodesis, and then remove the posterior osteop hytes. The PLL was then taken down centrally with a microhook and 1 mm Kerrison. A 2 mm Ke rrison was then used to take down the ligamentum more laterally until a Dandy hook could eas yas be passed out the foramen. This was performed without event from C4-7 noting severe spo ndylosis at each segment and a left C4-5 disc herniation. Curettes were then used to remove any remaining cartilage off the endplates. The trials were then used. A 5 mm height spacer was determined to be the appropriate heigh t at every segment. The structural allograft prior to insertion was filled with Irwin bon e. The structural allograft bone was then tamped into place at C4-5, C5-6, and C6-7. Anterior cervical plating was then performed by holding a 55 mm Zevo plate in place over th e segments with holding pins. Fluoroscopy was used to confirm its appropriate positioning a nd then sdv pilot/navigator/dds operator holes were made in the C4-7 vertebral bodies. 15 mm variable screws were then placed at C4-C7 using a rescue screw on the left upper level at C4 and two rescue screws at C7. Moderate to poor purchase was obtained throughout. The locking mechanism was then eng aged at each segment. Bipolar cautery and flowseal was then used for hemostasis and the wound was copiously irrig ated. A drain was placed in the prevertebral space and tunneled out the skin. The platysma and skin was then closed with Stratafix sutures. Skin glue was used for final skin closure . The wound was dressed with Steristrips, and the drain was secured with Steristrips and a tegaderm. All counts were reported as correct. The patient tolerated the procedure and was transferr ed to the recovery room in stable condition. Electronically signed by: Chauncey Lee MD 06/01/2016 10:56 [facility] rief Op Note - Wu Lee MD - 06/01/2016 10:56 AM PDTFormatting of this note might be different from the origin al. Brief Operative Note Gerard Burns 51 y.o. male 1965 [id number] Proc. Date 06/01/2016 Preop Dx Other spondylosis with radiculopathy, cervical region [M47.22] Cervical disc herniation Cervical foraminal stenosis Left arm weakness, progressive Severe morbid obesity BMI > 67 Postop Dx same Procedure 1. Anterior cervical discectomy and fusion C4-5, C5-6, and C6-7 2. Anterior cervical plating C4-7 using Zevo 3. Anterior structural allograft bone C4-5, C5-6, and C6-7 4. Microsurgical technique with use of operating microscope Anesthesia General, Dr. Dominguez Surgeon Chauncey Lee MD - Primary ERIC Hand-C - Assisting EBL 104 Findings C4-7 spondylosis with C4-5 left disc herniation. C bracing. Complications none Specimens * No specimens in log * Drains Drain/Device Site 06/01/16 1042 #1 Right anterior neck (Active) Electronically signed by: Chauncey Lee MD 06/01/2016 10:56 [facility]ALTHElectronically signed by Chauncey Lee MD at 016 10:58 AM PDTPlan of Care - Venkat Maya Chaplain - 06/01/2016 8:01 AM PDTProblem: Spiritual Distress, Risk/Actual (Adult,Obstetrics,Pediatric) Goal: Spiritual Well-being Patient will demonstrate the desired outcomes by discharge/transition of care. Spiritual Care Gerard Burns is a 51 y.o. male who is admitted for Other spondylosis with radiculop athy, cervical region [M47.22]. Data Integration Developer visit is in response to an electronic spiritual care consult request. Spiritual Evaluation: Patient was resting in bed; he was calm and pleasant as we visited. He was attended by his , Milady, who sat at the bedside and was very attentive and supportive. He claimed to no t be nervous, and stated, "this is not my first rodeo." He joked easily, and seemed at peace about having surgery. He has met with Dr. Lee, trusts him, and feels secure in his care. He is Hindu, att[facility] in [place], [place], and is strong in his zack. He welcomed pre-surgery prayer. Spiritual Interventions: I offered supportive listening, ministry of presence, words of encouragement, and pre-surge ry prayer. Spiritual Outcomes: Gerard expressed appreciation for the visit and the prayer. Spiritual Goals/Follow-up: Follow up with regular post-surgery visits, emotional and spiritual support. documented in this encounter Plan of Treatment [...] (H) | 70 - 150 mg/dL | THONY [...] [address] | KENYA Capps | [phone] | | [facility] | | [id number] | | | - LABORATORY | | [...] | | POC | | | [facility] | | | | | | MEDICAL [...] + | [facility] | [address] | [place] | [phone] | | [facility] | | [address] | | | - LABORATORY | | [...] | | POC | | | [facility] | | | | | | MEDICAL [...] [address] | [place] | [phone] | | [facility] | | [address] | | | - LABORATORY | | [...] | + + + + + | [facility] | [address] | [place] | [phone] | | [facility] | | [address] | | | - LABORATORY | | [...] | | POC | | | [facility] | | | | | | MEDICAL [...] [address] | [place] | [phone] | | [facility] | | [address] | | | - LABORATORY | | [...] | | | POC | | | [facility] | | | | | | MEDICAL [...] [address] | [place] | [phone] | | [facility] | | [address] | | | - LABORATORY | | [...] + + | Performing | Address | City/State[facility] | Phone Number | | Organization | [...] | | POC | | | [facility] | | | | | | MEDICAL [...] [address] | [place] | [phone] | | [facility] | | [address] | | | - LABORATORY | | | | + + + + + [place] Joan-Sunil Statnatalie No Charge (06/01/2016 10:47 AM PDT) + + | [...] | | POC | | | [facility] | | | | | | MEDICAL [...] + + + + + | THONY SHAIKH. | [address] | [place], [place] | [phone] | | [facility] | | [address] | | | - LABORATORY | | | | + + + + + documented in this encounter Visit Diagnoses + + | Diagnosis | + + | Cervical spondylosis with radiculopathy - Primary Cervical spondylosis with | | myelopathy | + + | BMI 60.0-69.9, adult ([facility]) Body Mass Index 60.0-69.9, adult | + [...] | | | | | | | [facility] 06/01/16 at 1500, For 2 doses, | [...] PDT | | | | | Starting [facility] 06/01/16 at 1234, Use | | | [...] | | | | | | on Maura 06/01/16 at 2100, | | | | [...] | | | | | | | Maura 06/01/16 at 1300, CORRECTION | | | [...] | | | | | | | 7481-8322 Use NIGHT DOSE for | | | | | | | doses scheduled: HS, 3AM, | | | | | | | Nighttime 2847-4607, | | | | | | | [...] | | | Buccal, EVERY 2 HOURS PRNQuinn | | AM PDT | | | [...] AM PDT | | | | | Sun06/02/16 at 0900, | | | | | [...]
--- OUTSIDE RECORDS SUMMARY | ~2020-08-05 | XMS | Encounter Summary ---
Demographics + + + | Address | [address] [facility] | | | [place] [address] | + + + | Home Phone | | + + + | Preferred Language | Unknown | + + + | Marital Status | | + + + | Adventism Affiliation | 1013 | + + + | Race | White | + + + | Ethnic Group | Not or | + + + Author + + + | Author | [facility] | | | and [place] [...] [place] | | | | | [address] | | + + + + + Care Team Providers + +------+ + | Care Obgyn Specialist Name | Role | Phone | + +------+ + | Moe Bella MD | PCP | | + +------+ + Encounter Details +--------+ + + + + | Date | Type | Department | Care Team | Description | +--------+ + + + + | 07/11/ | Hospital | [facility] | Jose Mirza | Cervical spondylosis | | 2016 | Encounter | MED CTR XRAY [address] | with radiculopathy; | | | | [place] | [address] [place], [place] | S/P cervical spinal | | | | [place] [address] | [address] | fusion | | | | [phone] | | | +--------+ + + + [...] | | | 12 | | | [address] UNITS capsule | | | | | [...] ST. | [address] | [place], [place] | [phone] | | [facility] | | [address] | | | - IMAGING | | | | + + + + + documented in this encounter Visit Diagnoses + + | Diagnosis | + + | Cervical spondylosis with radiculopathy Cervical spondylosis with myelopathy | + + | S/P cervical spinal fusion Arthrodesis status | + + documented in this encounter"
--- OUTSIDE RECORDS SUMMARY | ~2020-08-05 | XMS | Encounter Summary ---
Demographics + + + | Address | [address] [facility] | | | [place] [address] | + + + | Home Phone [...] + | Tico Burns | ECON | [address] | | | | | [place], [place] | | | | | [address] | | + + + + + Care Team Providers + +------+ + | Care Pile Fabric Knitter Name | Role | Phone | + +------+ + | Moe Bella MD | PCP | | + +------+ + Encounter Details +--------+ + + + + | Date | Type | Department | Care Team | Description | +--------+ + + + + | 12/02/ | Abstract | [facility] | Violetta Byers, | | | 2012 | | Center at [facility] [address] | CELL CLEANER [address] | | | | | [address] [place] [place] | [facility] [address] | | | | | for Health and | [place], [place] | | | | | [place] [address] | [address] | | | | | [place], [place] | [phone] | | | | | [address] | | | | | | [phone] | | | +--------+ + + + [...]
--- OUTSIDE RECORDS SUMMARY | ~2020-08-05 | XMS | Encounter Summary ---
Demographics + + + | Address | [address] [facility] | | | [place] [address] | + + + | Home Phone [...] + | Tico Burns | ECON | [address] | | | | | [place], [place] | | | | | [address] | | + + + + + Care Team Providers + +------+ + | Care Counter Tender Name | Role | Phone | + +------+ + | Moe Bella MD | PCP | | + +------+ + Encounter Details +--------+ + + + + | Date | Type | Department | Care Team | Description | +--------+ + + + + | 12/18/ | Abstract | [facility] | Violetta Byers, | | | 2012 | | Center at [facility] [address] | SENIOR HYDROGEOLOGIST [address] | | | | | [address] | [facility] [address] | | | | | for Health and | [place], [place] | | | | | [place] [address] | [phone] | | | | | [place], [place] | [phone] | | | | | [address] | | | | | | [phone] | | | +--------+ + + + [...]
--- OUTSIDE RECORDS SUMMARY | ~2020-08-05 | XMS | Encounter Summary ---
Demographics + + + | Address | [address] [facility] | | | [place] [address] | + + + | Home Phone [...] + | Tico Burns | ECON | [address] | | | | | [place], [place] | | | | | [address] | | + + + + + Care Team Providers + +------+ + | Care Grinding Room Supervisor Name | Role | Phone | [...] 03/03/ | Abstract | [facility] | Jesus Perez, | Medical Records | | 2016 | | [place] [address] [address] | [address] [facility] | Review | | | | [address] [facility] | [facility] | | | | | for Health and | [place], [place] | | | | | [place] [address] | [address] | | | | | [place], [place] | [phone] | | | | | [address] | | | | | | [phone] | | | +--------+ + + + [...]
--- OUTSIDE RECORDS SUMMARY | ~2020-08-05 | XMS | Encounter Summary ---
Demographics + + + | Address | [address] [facility] | | | [place] [address] | + + + | Home Phone [...] + | Tico Burns | ECON | [address] | | | | | [place], [place] | | | | | [address] | | + + + + + Care Team Providers + +------+ + | Care Cutter And Presser Name | Role | Phone | + [...] 04/12/ | Video/TeleH | Orthopaedics at | Megan Marshall | New Patient Visit; | | 2020 | [facility] | [facility] for [facility] | Domingo Parry MD [address] | Weakness | | | uled | and Healing [address] | | | | [address] [facility] for | [place], [place] | | | | | Health and Healing, | [address] | | | | | [facility] | [phone] | | | | | Floor [place], [place] | | | | | | [address] | | | | | | [phone] | | | +--------+ + + + [...] 4 Tabs by mouth once daily. Ad air sampling and monitoring with evening meal. 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 Currently ws a working [...] findings with Gerard today and discussed the aiden field history and approach to management of improving [...] lo wer extremity pain, numness and weakness. Gearrd 's condition is chronic, complex, multifactorial and [...] provider located at the distant site of [facility]. The p atient stated they were located at the originating [...]
--- OUTSIDE RECORDS SUMMARY | ~2020-08-05 | XMS | Encounter Summary ---
Demographics + + + | Address | [address] [facility] | | | [place] [address] | + + + | Home Phone [...] + | Tico Burns | ECON | [address] | | | | | [place], [place] | | | | | [address] | | + + + + + Care Team Providers + +------+ + | Care Community Artist Name | Role | Phone | [...] Surgery | 6A Intra Op [address] | Harpreet Fenton, | REMOVAL OF FATTY | | 2012 | | [address] | [address] [facility] | TUMOR PANNUS | | | | Rd [facility] | [facility] | specimen x 1 | | | | Hospital Admitting | [place], [place] | | | | | Desk Located on the | [address] | | | | | 9th floor | [phone] | | | | | [place], [place] | | | | | | [address] | | | +--------+---------+ + + + [...] consult intraop for placement of a 16 Montserratian ur ethral catheter, which was later removed, [...] SSI. He will follow up with his linotype machinist. He will have a change in his [...] Phone Center 04/24/2013 10:00 AM Harpreet Fenton [facility] Bariatric Surgery [phone] [facility] Your Follow-Up Plan Follow up with HARPREET FENTON MD. Schedule an appointment as soon as possible for a vis it on 04/17/2013. (the office will call you to reschedule and see if your needs can be met wi one visit) Contact information [address] [facility] [address] Other Discharge Orders and Instructions Medication Refill Instructions: If you need a refill on any narcotic pain medications, please call the clinic ([phone] ) by 2 pm on for any [...] during the day time hours by calling [facility] surgery office at [phone] - After hours, weekends and holidays, you may call the hospital utility systems repairer operator at [phone] an d have the assembler clip on sunglasses Green Team for general surgery paged. Constipation: [...] in 24 hours. Outstanding labs/studies: CRISTIN HOBSON [facility] 14A [address] [place] [address] Discharging Physician: CRISTIN HOBSON Attending Physician: Dr. [...] Brody ACNP - 04/14/2013 1:29 PM PDT [facility] Inpatient Progress Note Hospital Day #3 [...] closely - to follow up with his Radiation Control Technician -home today Prophylaxis: Feeding: regular Activity: Ambulate Sedation/Sleep: na VTE PPY: SCDs, Lovenox Head of bed: >30 degrees Ulcer PPY: famotidine Glycemic Control: euglycemic Infection PPY: IS, all catheter & line dates reviewed DISPO - dc home CRISTIN HOBSON [facility] [address]A [address] [place], [place] [id number] This assessment and plan was formulated both independently and in conjunction with the Surg ical team as well as the attending provider above. Nannette Duran MD - 04/13/2013 10:20 AM PDT GREEN SURGERY PROGRESS NOTE Hospital Day:2 Author; NANNETTE LUJAN MD Attending Physician: Dr. Fenton Interval Hx: High CBGs for which [facility] was consulted yesterday - further adjustments made [...] DAILY, Geneva morris MD, 2,000 mg at 04/13/13 08 [...] regimens -Will follow CBGs closely - appreciate [facility] help -Likely home tomorrow NANNETTE LUJAN MD PLASTIC AND RECONSTRUCTIVE SURGERY GREEN SURGERY Renee, Nannette Harris MD - 04/12/2013 11:27 AM PDTFormatting of this note might be different from the o robbyinal. GREEN SURGERY PROGRESS NOTE Hospital Day:1 Author; [...] O2 Delivery Device: None (room air) (04/12/13 06) 24 Hour Vital Min/Max: Systolic (24hrs), Av [...] 04/12/13 1127 Last data filed at 04/12/13 0835 Gross per 24 hour Intake 4958.34 ml [...] BID, Nannette Lujan MD, 100 mg at 04/12/13 08 enoxaparin (aka LOVENOX) injection 40 mg, 40 [...] MD PLASTIC AND RECONSTRUCTIVE SURGERY GREEN SURGERY rina Hutchinson MD - 04/11/2013 10:24 PM PDTFormatting of this note might be different from the or iginal. Postoperative Check Note: Authort: Trina Hutchinson MD Patient: Gerard Burns Primary Team: Green Surgery Attending Surgeon: Harpreet Fenton MD At: 04/11/2013 10:24 PM PROCEDURE: excision of large fatty tumor SUBJECTIVE: Pain well controlled on TRAP SETTER 01/12; denies SOB/CP/N/V; CPAP on OBJECTIVE: Vitals: [...] inferior aspect of very large pannus with amnuel ssings clean/dry/intact, minimal SS drainage to midline [...] px: Zac Hutchinson MD Surgery, R1 Pager: [phone] documented in this encounter H&P Notes Other, [...] the floor Nannette Lujan MD Plastic Surgery [address] Surgery Service Paresh Frazier MD - [...] documented in this enc ounter Consult Notes Geneva Colvin MD - 04/14/2013 8:50 AM PDTFormatting of this note might be differen t from the original. CLINICAL HOSPITALIST SERVICE ([facility])-PROGRESS NOTE Glycemic team follow up: HOSPITAL DAY: [...] x 3 Current Meds: reviewed. See [facility] for full list. Assessment/Plan: Gerard Burns is [...] changes on DC today. Follow-up with current linotype machinist in 1-2 months. GENEVA COLVIN MD [facility] 14A Clinical Hospitalist Service On License Of [facility] DEPARTMENT: Hosp ([facility]) - [phone] Place of Service: - Date of Service: 04/14/2013 [facility] [id number] Modifiers:GC Resident Involved: No Service: CONSULT GLYCEMIC Suggested CPT: 55125 Subsequent Visit Prob Focused/Low Complexity 15 min I spent more than 15 minutes [id number] with the patient of which greater than [...] distress, alert, oriented. Current Meds: reviewed. See Epic for full list. Assessment/Plan: Gerard Burns is [...] and metformin as rx'ed GENEVA COLVIN MD [facility] 14A Clinical Hospitalist Service On License Of [facility] DEPARTMENT: Hosp ([facility]) - [phone] Place of Service: - Date of Service: 04/13/2013 [facility] [phone] Modifiers:GC Resident Involved: No Service: CONSULT GLYCEMIC Suggested CPT: 62019 Subsequent Visit Prob Focused/Low Complexity 15 min [...] No Pancreatic conditions? : No Diabetic Rx SHRIMP CLEANER: Glargine 50 units in evening Short-acting correctional [...] to this patient's care. GENEVA COLVIN MD [facility] 14A Clinical Hospitalist Service Division of Hospital Medicine Department of Medicine [facility] DEPARTMENT: Hosp ([facility]) - [phone] Place of Service: - Date of Service: 04/12/2013 [facility] [phone] Modifiers:GC Resident Involved: No Service: CONSULT GLYCEMIC Suggested CPT: 86198 Initial Visit Comp/Mod Complexity 50 min documented [...] AM PDT 10: 54 AM PDTPlan of Anika Yo, PT - 04/15/2013 4:55 PM PDTFormatting of this not e might be different from the original. Physical Therapy Evaluation 04/15/2013 4:55 PM Patient admitted on: 04/11/2013 7:30 AM, hospital day number 3 Brief Hospital Course: 48 yo m s/p Excision of large fatty tumor Patient seen on: 14A Relevant Precautions: Abdominal, low incision Past Medical [...] day Last patient visit (i.e. Falls/Activity/Comfort/Environment/Toileting/Skin): calls kandi zuñiga, skin intact horizontal midline incision, up [...] environment with needed personal items in reach sakoff - Jerald Ramsay RN - 04/13/2013 10:16 [...] day Last patient visit (i.e. Falls/Activity/Comfort/Environment/Toileting/Skin): calls scotti kandi marsh, skin intact horizontal midline incision, up with [...] 90s RR 16-18 hx KARELY CPAP at [facility] -Cardiac: WNL -GI: Hypo BT tones, abd [...] 90s RR 16-18 hx KARELY CPAP at [facility] -Cardiac: BP 128/73 - 148/82 HR: 55 [...] procedures: continue out of bed, monitor cbg valuation - Jeanie Wood - 04/12/2013 6:05 AM [...] horizontal midline incision Anticipated or pending procedures: Mark - Ana Jaime RN - 04/11/2013 1:44 PM PDTNarinder Phase I Discharge Criteria (Stable For Transfer): yes Major deviations/events or pertinent findings of juanito-operative stay: None. VSS. On L NC, a ttempted to wean to RA, O2 sat 93%. History of KARELY, has home CPAP but has not required in [place] CU. Pain 1-610 after 1mg IV Dilaudid, 50mcg IV Fentanyl [...] medication information: see above Functional Epidural: N/A TRAP SETTER: N/A Respiratory: RR: 13 , O2 Sat: 98 %, O2 Delivery: Nasal cannula Breath Sounds: JIMMY: clear LLL: diminished RUL: clear RLL: diminished KARELY Yes Comment: pt has history of KARELY and has home CPAP. Not used in PACU as no episodes of apnea noted. Cardiac: BP: 141/75 mmHg HR: 67 GI: Nausea/Vomiting Status: No Signs/Symptoms: Interventions: Assessment: Comments: brii : Last void: Chau Contact Name: [place] Contact Number: [phone] Family contacted: Yes Comment:at bedside previously Belongings: [...] +--------+ + + + | JOS IONIZED BLAINE POC | Routin | 04/11/2013 | Morbid [...] | + +--------+ + + + | SHANON, POC | Routin | 04/11/2013 | Morbid [...] + + + | [facility] | [address] | [place], [place] | | | CATHLEEN POINT OF CARE | [address] | [address] | | | TESTS | | | | + + + + + CAPILLARY BLOOD GLUCOSE (TAN SANTIAGOG) POC (04/14/2013 7:48 AM PDT) + +---------+ [...] [facility] | [address] | [place], [place] | | | BRIANNA CONNOLLY OF CARE | [facility] | [address] | | | TESTS | | | [...] | [facility] | [address] | [place], [place] | | | CATHLEEN POINT OF CARE | [address] | [address] | | | TESTS | | | [...] | [facility] | [address] | [place], [place] | | | CATHLEEN POINT OF CARE | [address] | [address] | | | TESTS | | | [...] [facility] | [address] | [place], [place] | | | CATHLEEN POINT OF CARE | [address] | [address] | | | TESTS | | | [...] | | | POC | | | HILLBRIANNA | | | | | | OF [...] [facility] | [address] | [place], [place] | | | CATHLEEN POINT OF CARE | [address] | [address] | | | TESTS | | | [...] | [facility] | [address] | [place], [place] | | | CATHLEEN POINT OF CARE | [address] | [address] | | | TESTS | | | [...] [facility] | [address] | [place], [place] | | | CATHLEEN POINT OF CARE | [address] | [address] | | | TESTS | | | [...] [facility] | [address] | [place], [place] | | | CATHLEEN POINT OF CARE | [address] | [address] | | | TESTS | | | [...] | [facility] | [address] | [place], [place] | | | CATHLEEN POINT OF CARE | [address] | [address] | | | TESTS | | | [...] [facility] | [address] | [place], [place] | | | CATHLEEN POINT OF CARE | [address] | [address] | | | TESTS | | | [...] | [facility] | [address] | [place], [place] | | | CATHLEEN POINT OF CARE | [address] | [address] | | | TESTS | | | [...] + | [facility] | [address] | [place] [address] | | | SERVICES, CORE | PARK [...] | + + + + + | [facility] | [address] [facility] | [place] [address] | | | SERVICES, CORE | TJ [...] | | | LABORATORY | | | [place] | | | SERVICES, | | | [...] | + + + + + | [facility] | [address] | [place] [address] | | | DAVEY CRAWFORD | TJ [...] (H) | 60 - 99 mg/dL | [facility] - | | | GLUCOSE, | [...] | [facility] | [address] | [place], [place] | | | CATHLEEN POINT OF CARE | [address] | [address] | | | TESTS | | | [...] | [facility] | [address] | [place], [place] | | | BRIANNA CONNOLLY OF DEREK | [facility] | [address] | | | TESTS | | | [...] | [facility] | [address] | [place], [place] | | | BRIANNA CONNOLLY OF CARE | [facility] | [address] | | | TESTS | | | [...] (H) | 60 - 99 mg/dL | [facility] - | | | GLUCOSE, | [...] | [facility] | [address] | [place], [place] | | | CATHLEEN POINT OF CARE | [address] | [phone] | | | TESTS | | | | + + + + + LACTATE (ART), POC SOR (04/11/2013 12:09 PM PDT) + +---------+ + + + | Component | Value | Ref Range | Performed | Pathologist | | | | | At | Signature | + +---------+ + + + | LACTATE POC | 2.1 (H) | 0.5 - 1.6 | [facility] | | | | | mmol/L | [facility] | | | | | | BRIANNA CONNOLLY | | | | | | OF CARE | | | | | | TESTS | | + +---------+ + + + + + | Specimen | + + | | + + + + + + + | Performing | Address | City/State/[facility] | Phone Number | | Organization | | | | + + + + + | [facility] | [address] | [place], [place] | | | BRIANNA CONNOLLY OF [place] | [facility] | [address] | | | TESTS | | | [...] [place] | | | | | | HILL POINT | | [...] + | [facility] | [address] | [place], [place] | | | BIRANNA CONNOLLY OF CARE | [facility] | [address] | | | TESTS | | | [...] [facility] | [address] | [place], [place] | | | BRIANNA CONNOLLY OF [place] | [facility] | [address] | | | TESTS | | | [...] | | | POC | | | [place] | | | | | | HILL, [...] | [facility] | [address] | [place], [place] | | | CATHLEEN POINT OF CARE | [facility] | [address] | | | TESTS | | | [...] [facility] | [address] | [place], [place] | | | TRISTIAN CONNOLLY [facility] | [facility] | [address] | | | TESTS | | | [...] [facility] | [address] | [place], [place] | | | BRIANNA CONNOLLY OF [place] | [address] | [address] | | | TESTS | | | [...] | [facility] | [address] | [place], [place] | | | BRIANNA CONNOLLY OF [place] | [facility] | [address] | | | TESTS | | | [...] [facility] | [address] | [place], [place] | | | BRIANNA CONNOLLY OF [place] | [facility] | [address] | | | TESTS | | | [...] [facility] | [address] | [place], [place] | | | CATHLEEN POINT OF CARE | [address] | [address] | | | TESTS | | | | + + + + + SODIUM (ART) POC SOR (04/11/2013 11:21 AM PDT) + [...] [facility] | [address] | [place], [place] | | | BRIANNA CONNOLLY OF CARE | [address] | [address] | | | TESTS | | | [...] [facility] | [address] | [place], [place] | | | BRIANNA CONNOLLY OF CARE | [facility] | [address] | | | TESTS | | | [...] mg/dL | [facility] - | | | POC | | [...] [facility] | [address] | [place], [place] | | | BRIANNA CONNOLLY OF [facility] | [address] | [address] | | | TESTS | | | [...] [place] | | | | | | BRIANAN CONNOLLY | | | | | | [...] | [facility] | [address] | [place], [place] | | | BRIANNA CONNOLLY OF [place] | [facility] | [address] | | | TESTS | | | | + + + + + CALCIUM (ART) POC HAKEEM (04/11/2013 11:21 AM PDT) + +-------+ + [...] [facility] | [address] | [place], [place] | | | BRIANNA CONNOLLY OF CARE | [facility] | [address] | | | TESTS | | | [...] [facility] | [address] | [place], [place] | | | BRIANNA CONNOLLY OF CARE | [address] | [address] | | | TESTS | | | [...] mmol/L | [facility] | | | [facility], | | | [facility] | | | POC | | | [...] [facility] | [address] | [place], [place] | | | BRIANNA CONNOLLY OF [place] | [facility] | [address] | | | TESTS | | | [...] [facility] | [address] | [place], [place] | | | BRIANNA CONNOLLY OF [place] | [facility] | [address] | | | TESTS | | | [...] [facility] | [address] | [place], [place] | | | BRIANNA CONNOLLY OF [place] | [address] | [address] | | | TESTS | | | [...] | [facility] | [address] | [place], [place] | | | CATHLEEN POINT OF CARE | [address] | [address] | | | TESTS | | | [...] [facility] | [address] | [place], [place] | | | HILL, POINT OF CARE | [address] | [address] | | | TESTS | | | | + + + + + CHLORIDE (ART)MIKI SOR (04/11/2013 10:41 AM PDT) + [...] + | [facility] | [address] | [place], [place] | | | BRIANNA CONNOLLY OF [place] | [facility] | [address] | | | TESTS | | | [...] | [facility] | [address] | [place], [place] | | | CATHLEEN POINT OF CARE | [address] | [address] | | | TESTS | | | [...] | [facility] | [address] | [place], [place] | | | BRIANNA CONNOLLY OF CARE | [facility] | [address] | | | TESTS | | | [...] | [facility] | [address] | [place], [place] | | | CATHLEEN POINT OF CARE | [address] | [address] | | | TESTS | | | [...] + + | Performing | Address | City/State/[facility]ode | Phone Number | | Organization | | | | + + + + + | [facility] | [address] | [place], [place] | | | BRIANNA CONNOLLY OF [place] | [address] | [address] | | | TESTS | | | [...] gross | | | | | | lesions.Radiator Fitter | | | | | | sections [...] + + | Performing | Address | City/State/[facility]ode | Phone Number | | Organization | | | | + + + + + | [facility] | [address] | [place] [address] | | | PATHOLOGY | [address] [...]
--- OUTSIDE RECORDS SUMMARY | ~2020-08-05 | XMS | Encounter Summary ---
Demographics + + + | Address | [address] [facility] [address] [facility] | | | [place] [address] | + + + | Home Phone [...] [place], [place] | | | | | [address] | | + + + + + Care Team Providers + +------+ + | Care Systems Lead Name | Role | Phone | + [...] + + | 01/08/ | Hospital | [facility] [address] | Jesus Perez, | | | 2013 - | Encounter | [address] | [place] [address] [facility] | | | | | [place], [place] | [address] | | | 01/11/ | | [address] | [place], [place] | | | 2012 | | [phone] | [address] | | | | | | [phone] | | | | | | | [...] open sleev e gastrectomy 2. Urology assisted quiroga catheter placement Procedure Open sleeve gastrectomy Brief Hospital Course 1. You were admitted and underwent an open sleeve gastrectomy, without complications. Robert e drain was placed. You had a special quiroga catheter placed by urology. Clamping of the [...] narcotic pain medications, please call the clinic ([phone] ) by 2 pm on for any [...] during the day time hours by calling [facility] surgery office at [phone] - After hours, weekends and holidays, you may call the hospital suppository molding machine operator at [phone] an d have the adaptive physical education teacher Green Team for general surgery paged. Constipation [...] 76.08 kg/(m^2). Outstanding labs/studies: None Discharging Physician: OJRGE CABAN MD Attending Physician: Jesus Perez MD documented in this en counter Discharge Instructions Domi Esparza - 01/11/2013Patient Education Materials: abdominal precautions and [...] mouth | 100 Tab | 12 | /06/24 | | | multivitamin | two times [...] Hours (or 3 results): Recent Labs Basename 01/11/1332601/10/13 0412 01/09/13 0406 NA 141 141 142 K 3.5 4.0 4.0 CL 102 105 106 BICARB 27 28 27 BUN 7 8 11 CR 0.71 0.71 0.77 CA 8.6 8.6 8.5* MG 1.4* 1.8 1.7* PO4 3.0 2.7 3.8 CBC with diff last 72 hours (or 3 results) Recent Labs Basename 01/11/1332601/10/13 0412 01/09/13 0406 WBC 6.6 7.2 8.5 HB [...] drain. 3. Home today JORGE CABAN MD yson Dong MD - 01/10/2013 2:26 PM PSTACUTE PAIN SERVICE PROGRESS NOTE Pain fairly well controlled on oral medications. Epidural catheter discontinued, tip intact . APS will sign off, please call us back if there are any pain related concerns for us to add ress. M Vivi Dong MD, PGY1 Anesthesia Armoring Machine Operator Pager [phone] Florencia Ivy MD - 01/10/2013 7:49 AM PSTSURGERY INPATIENT PROGRESS NOTE Hospital Day:2 Author; FLORENCIA KATHLEEN MD, MIS/Bariatric Fellow, Pager [phone] Attending Physician: Jesus Perez MD Surgical Issues: [...] PO liquid analge marjorie. Clamp & unclamp Quiroga q3hrs for bladder training. 1mg Bumex now. Quiroga possibly out lat er. Dispo soon. Stephanie Lloyd NP - 01/10/2013 7:15 AM PST INPATIENT ADULT PAIN SERVICE NEURAXIAL BLOCK PROGRESS NOTE 01/10/2013 Author: Stephanie Horan NP POD# 2. Status post: 1. Attempted laparoscopic procedure 2. Ex-Lap, FLOYD 3. Open sleeve gastrectomy Previously obtained Past Medical History Diagnosis Date BP (high blood pressure) Numbness 2007 hands and feet High cholesterol Leg sore Depressed 2010 Diabetes mellitus 2005 Thyroid disease 2010 Cancer 2010 Interval events since last APS visit: Worked with PT yesterday, transitioning to [employer] s today Mr. Burns describes his pain [...] is out. Epidural: at thoracic level; If Quiroga is in place, it may be removed [...] and summary of old medical records (source: [facility]), as summarized in the body of the note. Stephanie Horan NP Adult Pain Service Pager [phone] Team Pager [phone] BILLING INFORMATION [facility] DEPARTMENT: [phone] Place of Service:- Inpatient Date of Service: 01/10/2013 CSN: [id number] Suggested Modifier: None Suggested CPT: 17450 - Daily mgmt epidural/subarachnoid drug administration Prolonged service: n/a Florencia Ivy MD - 01/09/2013 12:53 PM PSTSURGERY INPATIENT PROGRESS NOTE Hospital Day:1 Author; FLORENCIA KATHLEEN MD, MIS/Bariatric Fellow, Pager [phone] Attending Physician: Jesus Perez MD Surgical Issues: POD #1 s/p converted to open sleeve gastrectomy BP 141/63 | Pulse 72 | Temp 36.5 C (97.7 F) | RR 20 | Ht 1.778 m (5' 10") | Wt 240.5 kg (530 lb 3.3 oz) | SpO2 95% | BMI 76.08 kg/(m^2) - S: No major c/o. On floor doing well, Quiroga, epidural, NPO, BP meds. - O: AVSS except HTN which has been resolving. A/O x3, NAD. S/NT/ND, TI serousang w/ min ou tput, inc CDI. Cr <1, CPK WNL. UOP borderline low. IVF @150. - A/P: Give 1L bolus for low UOP. Adv to veronika clears, restart home meds, control BP. PT/OT, IS, CPAP, epidural, cont Quiroga for difficult urethral catheterization (JESUS). Will observe f or another few days. Epidural per APS. ary Grace, ABEL Gilman REFINING EQUIPMENT OPERATOR - 01/09/2013 11:29 AM PST Inpatient [...] Intake/Output Summary (Last 24 hours) at 01/09/13 0700 Last data filed at 01/09/13 0700 Gross [...] -no erythema, edema, ecchymosis Drain: TI drain, Quiroga with clear madalyn urine Current Inpatient Medications [...] ral in place, supra morbid obesity. Special quiroga in place per urology, must stay for 2 day s Plan: NEURO - epidural management by APs CV - hypertension, restart home meds PULM - oxygen, obesity hypoventilation FEN - Low mag, replace GI - veronika clears RENAL - Quiroga to stay per urology, UO 605, low output, fluid bolus, creat 0.77 ENDO - type 2 diabetes HEME/ID - Anemia of acute blood loss , stable PROPHY - Prophylaxis: Feeding: regular Activity: Ambulate Sedation/Sleep: na VTE PPY: SCDs, Lovenox Head of bed: >30 degrees Ulcer PPY: famotidine Glycemic Control: euglycemic Infection PPY: IS, all catheter & line dates reviewed; quiroga needs to stay in DISPO - requires acute care CRISTIN HOBSON [facility] [address] [place] [address] This assessment and plan was formulated both [...] infusion Epidural CONTINUOUS 14 m L/hr at 01/08/131943 lactated ringers IV 150 mL/hr Intravenous CONTINUOUS 150 mL/hr (01/09/13 0100) Type: Epidural Rate: 14 mL/hour Anticoagulants: No [...] elixir tomorrow. Epidural: at thoracic level; If Quiroga is in place, it may be removed [...] studies reviewed. STEPHANIE HORAN NP BILLING INFORMATION [facility] DEPARTMENT: [phone] Place of Service:- Inpatient Date of Service: 01/09/2013 CSN: [id number] Suggested Modifier: None Suggested CPT: 60642 - Daily mgmt epidural/subarachnoid drug administration Prolonged service: n/a LEEHedy Wood - 2012 6:46 AM PSTMedical student progress note Overnight events/S: Mr. Burns is feeling well this morning. He did not get a lot of sle ep due to noise on the floor, but his pain (2/10, achy pain around incision site) is well co ntrolled and he is only using his CHIEF JAILER pump about once an hour. He has [...] recheck urine out put. Urology to manage Quiroga catheter. 5. Prophylaxis. IS at bedside, SCD's in place, start enoxaparin today. PT to see today, l egs to side of bed, possible out of bed to chair. Dispo: discharge to home when pain controlled on oral meds and tolerating PO. Hedy Wood [id number] signed by CRISTIN Hobson at 01/10/2013 12:06 PM Alfonso Ng MD - 01/08/2013 9:57 PM PST SURGERY POST OP CHECK: Green 01/08/2013 IDENTIFICATION: Gerard Burns is a 47y/o male with h/o super morbid obesity who is POD #0 s/p laparo scopic converted open LFOYD and open sleeve gastrectomy. SUBJECTIVE: -Pain well [...] obese, soft, nontender, nondistended. incision clean/dry/intact : quiroga catheter in place, urine clear, dark Drain: [...] RT Continue current care. Alfonso Sousa MD Master Esthetician, PGY-1 Pager: [phone] [facility] [place] [phone] [address] [facility] [phone] uYahaira clark MD - 01/08/2013 3:37 PM PSTINPATIENT BRIEF OPERATIVE NOTE Procedure Date: 01/08/2013 Attending Physician: Yahaira Doran MD Preoperative Diagnosis: Morbid obesity, difficult Quiroga catheter placement Postoperative Diagnosis: Same Procedure Performed: Flexible cystoscopy, catheter placement Estimated Blood Loss: None Fluids: None Specimens: None Complications: None Drains: 14 Fr Quiroga catheter Disposition: OR for sleeve gastrectomy Findings: 1. Two large pannuses, lower completely obscuring penis and scrotum 2. Elevation of lower pannus exposed distal foreskin, but unable to expose glans 3. Normal bladder and urethra, mod prostate enlargement 4. 14 Fr Quiroga placed over super stiff wire, clear urine efflux Plan: D/C Quiroga catheter prior to discharge home Will not be able to check PVRs given patient's body habitus If pt voiding spontaneously with adequate UOP post-op, no further urology follow-up needed documented in this enc ounter H&P Notes Chelsey, Usman - 01/20/2013 8:51 AM PDTElectronically signed by Faculty Other at 8:51 AM PDTdocumented in this encounter Procedure Notes Florencia Kathleen MD - 01/09/2013 7:00 PM PSTAssociated Order(s): OPERATION RECORDDate: 01/08/2013 Attending Surgeon: Jesus Perez M.D. Block Stacker(s): Florencia Kathleen MD Preoperative Diagnosis(es): Super morbid obesity. Postoperative Diagnosis(es): Super morbid obesity. Procedures Performed: 1. Attempted laparoscopic procedure. 2. Exploratory laparotomy, lysis of adhesions. 3. Open sleeve gastrectomy. Findings: Negative methylene blue leak test. Midline fascial calcification. Anesthesia: GETA plus epidural. Fluids: EBL 100 cc, crystalloid 3000 mL, urine output 130 cc. Specimens: Midline fascial calcification, lateral stomach. Complications: None. Drains: TI in the left upper quadrant. Disposition: Surgical floor, extubated. Indications: Mr. Burns is a 47-year-old male with a super/supreme morbid obesity with a preop BMI of 81 and a weight of 587 pounds in clinic. He was placed on phentermine and lost weight preoperatively and now weighs approximately 528 pounds on the day of surgery. He has comorbidities, and indication was for bariatric surgery. He has had a previous operation midline in years past, which renders the chance of laparoscopic surgery less. Nonetheless, we counseled the patient through informed consent and a full PARQ about attempted laparoscopy, sleeve gastrectomy with likelihood of an open procedure. The patient and his understood and wished to proceed. Procedure: The patient was brought to the operating theater with epidural placement in the preop holding area. He was placed on an extended Maquet table. All pressure points padded. Previously, a Quiroga catheter was placed under Seldinger technique and cystoscope with Urology. A moderate tilt test was performed after securing the patient and general endotracheal anesthesia. Arterial line and central line were already placed by Anesthesia. The patient was sterilely prepped and draped, and the procedure began after a timeout. Using a left upper quadrant stab incision, a Veress needle was placed through the fascia, and insufflation was attempted. In various positions, the insufflation pressure was between 15 and 20 mmHg. Therefore, we decided to abandon laparoscopic attempt and continued the operation in an open fashion. A generous upper midline incision was made with a number 10 blade and with blunt dissection as well as electrocautery and hemostasis with ties. The midline was accessed down to the fascia revealing a previous Prolene suture. This was then opened in a protected way protecting any bowel. There were some adhesions which were lysed with electrocautery, blunt dissection, and Harmonic scalpel. We accessed the stomach and noticed that there was a minor liver tear, which was amenable to electrocautery. Hemostasis was obtained. The modified orogastric tube was in place, and this was easily palpable through the stomach. This was placed along the lesser curve as far as distal as possible. The short gastrics were taken with Harmonic scalpel up to the hiatus, which was palpated though not readily seen due to the body habitus. We identified what we believed was the pylorus clearly contiguous with the antrum of the stomach, and in a region approximately 10 cm proximal on the greater curve from the pylorus, the sleeve gastrectomy was performed with the orogastric tube in place hugging the lesser curvature. This was performed with purple load Endo KRYSTEN Tri-Staple loads all the way up to the proximal stomach and angle of His. The very last load was a gold Endo KRYSTEN Tri-Staple. Methylene blue leak test was then performed which was negative. With a negative methylene blue leak test and minimal bleeding, we decided to perform abdominal closure. Number 1 looped Maxon in 2 directions closed the fascia with internal retention stitches of separate number 1 looped Maxon x2. Subcutaneous tissue was closed with running 2-0 Vicryl, and 3-0 Vicryl approximated the dermis with deep dermal stitches in interrupted fashion. The skin was closed with 4-0 Biosyn and Indermil. Previously, a 19-Palauan round Delvin drain was placed to the left upper quadrant and around the angle of His and splenic fossa. This was performed just in case a leak occurs and the patient is unable to be brought to the interventional radiology suite. This was sewn into place with a 2-[address] Perez was scrubbed and present throughout the entire procedure. All sponge and needle counts were correct x2. The patient was extubated and brought to the recovery room in stable condition. MD Jesus Yeh M.D. / [id number] [id number] / [id number] / [id number] / Yahaira Stephen MD - 01/09/2013 12:27 PM PSTAssociated Order(s): OPERATION RECORDDate: 01/08/2013 Attending Surgeon: Yahaira Doran M.D. Procedures Performed: Flexible cystoscopy with catheter placement. Indications: Gerard Burns is a 47-year-old gentleman with morbid obesity (BMI 81), who is undergoing sleeve gastrectomy with Dr. Perez today. Urology assistance was requested in placing a Quiroga catheter due to his large pannus, which obscures his penis and scrotum. Findings: He had two very large panni, which completely obscured the penis and scrotum. With elevation of the lower pannus, the opening of the distal foreskin was visible, though the glans was not. Cystoscopy demonstrated normal urethra, moderate prostate enlargement, and normal bladder with some debris. A 14 Palauan Quiroga catheter over a wire. Procedure: Following informed consent, the patient was correctly identified and brought back to the operating room. A surgical pause was performed. He was left on the stretcher and the procedure was started prior to induction of anesthesia in order to facilitate changing position in case catheter placement was not possible with the patient supine. The patient's lower pannus was retracted cephalad using a towel and tape. His external genitalia were prepped and draped in the usual sterile fashion. The glans was palpable, though not visible and a single attempt was made to place a Quiroga catheter blindly; however, this was not successful. The patient was then re-prepped and draped in the usual sterile fashion. A 16-Palauan flexible Olympus cystoscope was advanced into the distal foreskin. The glans was visible, but I was unable to easily advance the cystoscope into the meatus. A 0.038 PTFE guidewire was easily advanced into the urethral meatus under direct visualization into the bladder. The cystoscope was removed. An attempt to pass a 16-Councill catheter over the wire was unsuccessful. An attempt to pass a 14-Palauan catheter over the wire, was also unsuccessful. The wire was removed and the cystoscope was replaced. A superstiff wire was then advanced into the meatus and bladder. The cystoscope was advanced over the wire into the patient's bladder. The above findings were noted. The cystoscope was removed. A 14-Palauan Councill catheter was then placed over the wire into the bladder with efflux of clear urine. The wire was removed. The wound was filled with 10 mL of sterile water. The catheter was placed to gravity drainage. The remainder of the procedure will be dictated by Dr. Perez. Estimated Blood Loss: None. Complications: None. Drains: 14-Palauan Quiroga catheter. Disposition: OR for General Surgery procedure Yahaira Doran M.D. / [id number] / [id number] / [id number] / ichler, Florencia Wilson MD - 01/08/2013 6:01 PM PSTAssociated Order(s): PROCEDURE NOTEINPATIENT BRIEF OPERA TIVE NOTE Procedure Date: 01/08/2013 Author: FLORENCIA KATHLEEN MD Attending Physician: Jesus Perez MD Fellow: Florencia Kathleen MD: MIS/Bariatric Fellow Prior to the beginning of the procedure the team paused to verify the patient's identity, a s well as the procedure to be performed and the correct side/site. All equipment required w as ready and available. The patient was positioned appropriately. Preoperative Diagnosis: Super morbid obesity Postoperative Diagnosis: Same Procedure Performed: 1. Attempted laparoscopic procedure 2. Ex-Lap, FLOYD 3. Open sleeve gastrectomy Findings: (-)Methylene blue leak test. Midline calcification. Anesthesia: GETA + epidural Fluids: EBL 100, Crystalloid 3000, UOP 130 Specimens: Midline fascial calcification. Lateral stomach. Complications: None Drains: TI LUQ Disposition: Surgical floor, extubated. Electronically signed by Florencia Kathleen MD at 04/2013 6:05 PM PSTdocumented in this encounter Miscellaneous Notes Scan - Other, Faculty - 01/21/2013 8:03 AM PDTElectronically signed by Faculty Other at 8:03 AM PDTScan - Other, Faculty - 01/20/2013 8:51 AM PDT can - Other, Faculty - 01/20/2013 8:51 AM PDTElec tronically signed by Faculty Other at 01/20/2013 8:51 AM PDTScan - Chelsey, Faculty - 013 8:51 AM PDT can - Alicia bajwa Faculty - 01/20/2013 8:51 AM PDT 8: 51 AM PDTScan - Chelsey, Faculty - 01/18/2013 4:19 PM PDT valuation - Domi Hill - 01/11/2013 10:52 AM PSTPatient is ready for discharge to home. Patient and demonstrate a clear understanding of dischar ge education and given educational handouts. Patient given prescriptions and will take them to their own pharmacy. Patient transported out via w/c. VSS lan of Care - Jennifer Day RCP - 01/11/2013 6:41 AM P STProblem: RT Goals & Interventions Goal: Non-Invasive CPAP Home unit andoff - Arelis Saxena RN - 01/11/2013 6:28 AM PSTNursing Handoff Report Primary focus of stay: h/o super morbid obesity, s/p laparoscopic converted to open FLOYD and sleeve gastrectomy Pertinent physical findings: obese, veronika CL, improved, SL watch UO closely, quiroga, midline glued incision, TI x 1, panus with sores, pillow cases applied between skin folds, dusky col ored bilateral lower extremities, edematous, OOB with PT yeaterday, reports that was ambulat ing prior to surgery, CPAP at night on remote tele, uses IS. Orders to follow up on: Иван removed @ 0530 Last pain assessment/reassessment: denies. Has sched tylenol. And can get po oxy-has not re quested. Psych/social issues: pleasant Last patient visit (i.e. Falls/Activity/Comfort/Environment/Toileting/Skin): turns/reposit iones independently or with minimal assist, lift team involved too, no skin breakdown on brooke cyx, yet many open wounds in panus fold-has pillowcase, and on mons pubis-covered with gauze . Anticipated or pending procedures: rzegorz - Do no Jones RN - 01/10/2013 5:26 PM PSTNursing Handoff Report Primary focus of stay: h/o super morbid obesity, s/p laparoscopic converted to open FLOYD and sleeve gastrectomy Pertinent physical findings: obese, CL, improved, SL watch UO closely, quiroag, midline glued incision, TI x 1, panus with sores, pillow cases applied between skin folds, dusky colored bilateral lower extremities, edematous, OOB with PT yeater, reports that was ambulating p rior to surgery, CPAP at night on tele, uses IS Barriatric diet Orders to follow up on: Clamp quiroga q3 hours for bladder control last clamped from 1530 to 1830 Last pain assessment/reassessment: epidural d/c pt now on po oxy tolerating well pt rates p ain 0-3 - no complaining of pain Psych/social issues: pleasant Last patient visit (i.e. Falls/Activity/Comfort/Environment/Toileting/Skin): quiroga, turns/r epositiones independently or with minimal assist, lift team involved too Anticipated or pending procedures: Josefina - Phoenix Chandra RN - 01/10/2013 3:03 PM PSTNursing Handoff Report Primary focus of stay: h/o super morbid obesity, s/p laparoscopic converted to open FLOYD and sleeve gastrectomy Pertinent physical findings: obese, CL, HTN on arrival on the unit, improved, IVF at 150, w atch UO closely, quiroga, midline glued incision, TI x 1, panus with sores, pillow cases appli ed between skin folds, dusky colored bilateral lower extremities, edematous, OOB with PT yea ter, reports that was ambulating prior to surgery, CPAP at night on tele, uses IS Orders to follow up on: Clamp quiroga q3 hours for bladder control Last pain assessment/reassessment: epidural d/c pt now on po oxy tolerating well pt rates p ain 0-3 Psych/social issues: pleasant Last patient visit (i.e. Falls/Activity/Comfort/Environment/Toileting/Skin): quiroga, turns/r epositiones independently or with minimal assist, lift team involved too Anticipated or pending procedures: lan of Care - La Mcclain OT - 01/10/2013 2:26 PM PSTOccupational therapy treatment note: 01/10/2013 2:26 PM Pt admitted 01/08/2013, hospital day # 2 Seen on 14a. Reason for hospitalization: 47 y.o. Male s/p open sleeve gastrectomy on 01/08/2013. Procedure(s) performed 1. Attempted laparoscopic procedure 2. Ex-Lap, FLOYD 3. Open sleeve gastrectomy Relevant Precautions: Abdominal Brief Hospital Course Update: No new events Subjective: Pt agreeable to work with OT Objective: Pt seen for ADLs and functional mobility. Encountered supine. Supine to sit wit h mod assist from via modified log roll; demonstrating good body mechanics. Pt edu cated in adaptive equipment to maximize lower body dressing independence and maintain abdomi nal precautions. Able to recall with 1 verbal cue. Pt and educated in sling options for low-hanging pannus. At this time, pt and state that they have no further acute OT need s; they understand precautions and have routines setup at home for to provide assist to pt. All questions answered. No further acute OT needs identified or needed by pt; will sign off. Pain: Did not report, Pain addressed RN aware. Assessment: Pt demonstrated improved supine to sit transfer. Demonstrates good knowledge o f precautions; receptive to information regarding ADLs and pannus support. Pt reports no fur ther need for OT. Will discharge from acute care OT services. See care plan for goals. Recommendations: Home with assist from Activity Recommendations: adaptive equipment for lower body dressing, sling for pannus supp ort LA DAVIES OT andoff - Grant Johns RN - 01/10/2013 5:29 AM PSTNursing Handoff Report Primary focus of stay: h/o super morbid obesity, s/p laparoscopic converted to open FLOYD and sleeve gastrectomy Pertinent physical findings: obese, CL, HTN on arrival on the unit, improved, IVF at 150, w atch UO closely, quiroga, midline glued incision, TI x 1, panus with sores, pillow cases appli ed between skin folds, dusky colored bilateral lower extremities, edematous, OOB with PT yea , reports that was ambulating prior to surgery, CPAP at night, uses IS Orders to follow up on: labs Last pain assessment/reassessment: epidural, pain well managed, decreased rate last night Psych/social issues: pleasant Last patient visit (i.e. Falls/Activity/Comfort/Environment/Toileting/Skin): quiroga, turns/r epositiones independently or with minimal assist, lift team involved too Anticipated or pending procedures: andoff - Phoenix Cheek am, RN - 01/09/2013 6:37 PM PSTNursing Handoff Report Primary focus of stay: h/o super morbid obesity, s/p laparoscopic converted to open FLOYD and sleeve gastrectomy Pertinent physical findings: obese, bariatric clears, HTN on arrival on the unit, improved, IVF at 150, watch UO closely 1L Bolus given today urine output for shift 625ml , quiroga, mid line glued incision, TI x 1, panus with sores, pillow cases applied between skin folds, dusk y colored bilateral lower extremities, edematous, OOB with pt , reports that was ambulating prior to surgery, CPAP at night, uses IS Orders to follow up on: labs Last pain assessment/reassessment: epidural, pain well managed Psych/social issues: pleasant, will be in today Last patient visit (i.e. Falls/Activity/Comfort/Environment/Toileting/Skin): quiroga, turns/r epositiones independently or with minimal assist, passing flatus, no BM yet. Anticipated or pending procedures: lan of Care - La Mcclain OT - 01/09/2013 11:42 AM PST Occupational Therapy Evaluation 01/09/2013 11:42 AM Pt admitted on 01/08/2013, hospital day # 1. Seen on 14a. Brief Hospital Course: 47 y.o. Male s/p open sleeve gastrectomy on 01/08/2013. Procedure(s) performed 1. Attempted laparoscopic procedure 2. Ex-Lap, FLOYD 3. Open sleeve gastrectomy Relevant Precautions: Abdominal, Fall Risk Past Medical History Diagnosis Date BP (high blood pressure) Numbness 2006 hands and feet High cholesterol Leg sore Depressed 2010 Diabetes mellitus 2005 Thyroid disease 2010 Cancer 2010 Past Surgical History Procedure Date Thyroid removal Gastric bypass attempted Living Environment: Pt lives in a one level ranch-style home with . Tub shower with a shower seat, 2 grab bars, standard height toilet. 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 Able to complete upper body dressing and toilet hygiene i ndependently. assists with socks and pants management as pt's body habitus is difficult to manage independently. Patient / Family Goal: To return home Barriers: None identified Pain: 3/10 at rest Pain addressed: epidural in place Vital signs: VSS through telemetry. Cognitive Screen Level of alertness: Alert and participatory Orientation: x4 Quality of responses: Appropriate Command following: Single step 100% Memory: Appears intact through conversation Judgement / safety awareness: Good Attention / Concentration: Good Barriers to Learning: None Affect: Overall pleasant Visual Perception: No deficits noted UE Physical Assessment Dominant Hand: R ROM: WFL Strength: NT Edema: Mild in R hand Skin Integrity: Drain, incision intact, dressing on pannus leaking, RN notified UE Neurological Function Sensation: No numbness/tingling Muscle Tone: Normal Proprioception: WFL Gross Motor: WFL Fine Motor: WFL Activities of Daily Living: UB Dressing: NT UB Grooming: NT LB Dressing: Max assist to don socks Toileting: NT, quiroga Ambulation with ADL: Steps alongside bed with contact guard assist x2 Transfers: Supine to sit with head of bed elevated with min-mod assist x2, modified log ro ll, cues to prevent valsalva; present to assist with pannus mobility Sit to stand with contact guard assist x2, no assistive device Sit to supine with max assist x2 Dependent scoot x4 Treatment provided this date: Evaluation completed. Pt and educated in role of OT. Ed ucated in abdominal precautions within context of ADLs and IADLs, with emphasis on task/envi ronment modification. Briefly educated in use of adaptive equipment (english tutor and toilet aide ) to increase ADL independence. Educated in basic UE therapeutic exercise for edema manageme nt. Ended session: Pt supine, head of bed elevated, present, RN aware ASSESSMENT: Pt is a 47 year old male, s/p the above procedure. Previously independent with functional mobility, upper body dressing and toileting; required assist for lower body dres sing and bathing. BUE AROM WFL, appropriate with good command following. Limited by body hab itus and abdominal precautions. Presents below baseline in regards to ADLs and functional mo bility and will benefit from skilled OT to address needs. See care plan for goals. Recommendations: Anticipate DC home with assist from , will continue to monitor progre ss Activity Recommendations: Sitting edge of bed with 2 person assist, lift team for repositi oning, encourage participation in upper body ADLs PLAN: ADLs, adaptive equipment training, functional mobility, precaution education Frequency: 1-2 more visits Duration: 2 weeks The above plan of care and goals were developed and reviewed with the patient. Good rehab potential for stated goals and requires continued rehabilitation services, given the patie nt's treatment is at a level of complexity or sophistication requiring the skills of a thera pist, specifically ADLs with adaptive equipment training. LA DAVIES, PÉREZ lan of Anika Mckinney PT - 01/09/2013 11:20 AM PSTFormatting of this note might be differe nt from the original. Physical Therapy Evaluation 01/09/2013 11:21 AM Patient admitted on: 01/08/2013 9:45 AM, hospital day number 1 Brief Hospital Course: 47 y.o. Male s/p open sleeve gastrectomy on 01/08/2013. Procedure(s) performed 1. Attempted laparoscopic procedure 2. Ex-Lap, FLOYD 3. Open sleeve gastrectomy Patient seen on: 14A Relevant Precautions: Abdominal, Fall Risk Past Medical History Diagnosis Date BP (high blood pressure) Numbness 2006 hands and feet High cholesterol Leg sore Depressed 2010 Diabetes mellitus 2006 Thyroid disease 2010 Cancer 2010 Past Surgical History Procedure Date Thyroid removal Gastric bypass attempted Living Environment: Patient reports living in a single level home in [place] with his wif amanda and children. He states that he does not have steps to enter. His and friends and alma sorenson are going to be available for 24 hour assist following discharge. 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 He states he was not ambulating with an assistive device but required frequent breaks . Patient states he was limited to walking 1/2 block at a time due to fatigue in his legs. N eeded some assist with ADLs, see OT note for specifics. Patient / Family Goal: to get back to work, states he is a workaholic Communication: unimpaired Barriers: obesity Pain: 2 /; patient happy with pain control at this time Vital signs: patient asymptomatic, not formally assessed Subjective statement: patient willing to work with PT, present Cognitive Screen Level of alertness: alert Orientation: x4 Quality of responses: appropriate to situation Command following: patient able to follow multistep commands Judgment / safety awareness: Patient is aware of safety limitations, is not impulsive Physical Assessment ROM: hip/knee flexion to 90 degrees bilaterally in sitting, ankle dorsiflexion to neutral in sitting and supine. UE ROM within functional limits Strength: patient able to complete full ankle pump, long arc quad against gravity in sitti ng. At least 3+/5 for LEs with patient able to stand without assistive device. UE strength w ithin functional limits Edema: patient is morbidly obese and grossly edematous. His penis is severely edematous an d had bloody sores at this time but sensation is not intact. Skin Integrity: abdominal incision appears to be healing appropriately, bleeding from juanito neum. [address] Neurological Function Sensation: Patient has long standing diminished sensation in the bottoms of bilateral feet secondary to diabetes. Denies any other numbness/tingling. Muscle Tone: patient posturing appropriately, not formally assessed Proprioception: patient coordinating movements appropriately, not formally assessed Gross Motor: patient coordinating movements for transfers and gait, not formally assessed Fine Motor: patient able to manipulate call button, not formally assessed Balance: sitting edge of bed with stand by assist Standing with contact guard assist No formal balance assessment completed Mobility & Transfers: supine to sit via modified logroll with head of bed elevated with 2 p erson min assist as well as max assist for patients penis/scrotum. Sit to stand with no assi stive device and contact guard assist of 2. Stand to sit with stand by assist and cues for e ccentric control. Sit to supine with mod assist for LEs, max assist for scrotum/penis. 4 per son dependent scoot up in bed. Gait: Patient took ~5 side steps at edge of bed for positioning with 2 person hand hold ass ist. Shuffling steps noted but no losses of balance or instability. Treatment provided this date: Education in abdominal precautions. Handout provided. Therape utic exercises in sitting and supine including ankle pumps, quad sets, long arc quads, glute sets and heel slides. Handout provided. Functional mobility training including bed mobility and ambulation at bedside. Ended session: patient positioned comfortably in supine, call light in reach, needs met, nu rsing present. ASSESSMENT: Mr. Burns is s/p open sleeve gastrectomy on 01/08/2013. Patient had good kapil ance to PT today including bed mobility and ambulation with assist. However, he is below bas rob function and would benefit from further skilled PT services to increase his functional independence and activity tolerance. This patient has good rehabilitation potential to achieve stated goals (see Care Plan for g oals) and requires continued rehabilitation services, given the patient's treatment is at a level of complexity or sophistication requiring the skills of a therapist. See Care Plan for goals. Recommendations: Activity Plan: Up to wide chair with lift team for one hour 3x per day. Exercises 3x per da y. DC recs: anticipate home with family assist Next visit: progress ambulation as well as exercises PLAN: Education, functional mobility, gait Frequency: 4x/week Duration: one week The above plan of care and goals were developed and reviewed with the patient. Gerard Lara, SPT I was present during the above physical therapy session and agree with the physical therapy student's documentation and plan. I have documented any additions or exceptions. Carrie Da Silva PT lan of Care - Britni Hines RD - 01/09/2013 9:25 AM PSTProblem: Nutrition Interventions Intervention: Nutrition Education Provided pt w/verbal & written gastric sleeve diet education w/Post-Op Sleeve Gastrectomy D iet handout. Reviewed diet progression: stage 1: CL, stage 2: sugar free, low-fat FL, stage 3: sft/grd/pureed foods, stage 4: low-fat solid foods. Discussed importance of protein food s, fluids, small bites/chewing thoroughly. Pt verbalized understanding. Expect good complian ce. Pt to f/u w/outpt RD in 2 wks. Will remain available for further diet education prior to D/C as warranted. Following. Companion Caregiver Pager#[phone], LD Pgr #[phone] Comments: Nutr Dx: Food & nutr knowledge deficit, inadequate nutrient utilization; related to need fo r modified diet portions due to restricitive intake; as evidenced by inability to luan reg po rtions. Gerard Burns is a 47 y.o. male s/p open sleeve gastrectomy on 01/08. PMHx: morbid obesity, depression, nephrolithiasis, DM, HTN, HLD, etc. Saw outpt RD: 06/10/12 Ht: 70"; 177.8 cm IBW: 75.45 kg Admit Wt: 240.5 kg on 01/08 BMI: 76.1 kg/m2 AdjBW: 116.7 kg Wt Hx/Usual Wt: 251.746 kg (555 lb) on 06/10/12. Est Nutrition needs: 3200-2945 kcals/day (18-23 kcals/kg/day AdjBW); 151-188 gms pro/day (2 -2.5 gms pro/kg/day IBW) A M PSTPlan of [facility] - 01/09/2013 8:11 AM PSTProblem: Case Management Goals Goal: Discharge Needs Met Case Management Initial Assessment Reason for Admission: admitted for scheduled open sleeve gastrectomy Admitted From: Home Emergency Contact: Extended Emergency Contact Information Primary Emergency Contact: DARIELA BURNS Address: [address] [place] [id number] Relation: Spouse Past Medical History: Morbid obesity [278.01] (Morbid Obesity), CT CYSTOSCOPY,INSERT URETER AL STENT [80942] CT LAP SLEEVE GASTRECTOMY [18741] Lives With: spouse;child(larry), dependent Living Arrangement: house Functional Level Prior to Admission: 0-->independent Transportation Available: family Equipment Currently used at Home/DME Provider: CPAP Home Health/Infusion Agency: [facility] Insurance/Funding: @[email or web address], [facility] this [facility] is not co cheyanne therefore is a private pay. Assessment: 47 yo male with bmi of 76.08 admitted for a sleeve gastrectomy; now PO day one. Case Management will need to follow closely for discharge needs though none evident at this point. Anticipated Discharge Needs: Anticipated Discharge Disposition: home. Sabi Maharaj RN [phone] Assessment done by: Nomi Berman RN - 01/09/2013 4:50 AM PSTNursing Handoff Report Primary focus of stay: h/o super morbid obesity, s/p laparoscopic converted to open FLOYD and sleeve gastrectomy Pertinent physical findings: obese, NPO, HTN on arrival on the unit, improved, IVF at 150, watch UO closely, quiroga, midline glued incision, TI x 1, panus with sores, pillow cases appl ied between skin folds, dusky colored bilateral lower extremities, edematous, was not OOB y et, reports that was ambulating prior to surgery, CPAP at night, uses IS Orders to follow up on: labs Last pain assessment/reassessment: epidural, pain well managed Psych/social issues: pleasant, will be in today Last patient visit (i.e. Falls/Activity/Comfort/Environment/Toileting/Skin): quiroga, turns/r epositiones independently or with minimal assist Anticipated or pending procedures: Zeb Hernandez RN - 01/08/2013 8:41 PM PSTMeruddy Phase I Discharge Criteria (Stable For Transfer): Yes Major deviations/events or pertinent findings of juanito-operative stay: Pt arrived to PACU aw denise, placed on own CPAP on arrival. Pt has had no apnea episodes noted while in PACU.. Pt cook d no dermatome/Band form epidural until Dr Dubois gave extra bolus of 0.5% ropivacaine and epid ural rate increased to 14 ml/hr of epidural med. Now has band T8-L2 on the left, over incisi on Anticipated post-op needs/devices/follow up: Pain control, OOB RAMOS to promote healing, t, wound care to open areas on panus Post-Op Diagnosis Codes: * Morbid obesity [278.01] Surgical Procedure Planned - Actual Procedure Performed: GASTRIC BYPASS - ATTEMPTED LAPAROSCOPIC, OPEN EXPLORATORY LAPAROTOMY, LYSIS OF ADHESIONS, SLEEVE GASTRECTOMY; CYSTOSCOPY WITH STENT PLACEMENT AND PYLEOGRAMS - INTRAOPERATIVE QUIROGA CA THETER PLACEMENT WITH CYSTOSCOPIC GUIDANCE PRIOR Anesthesia: General & Epidural Length of procedure: In Room/Out of Room: 5 Hr 28 Min 0 Sec Surgeon(s) and Role: Panel 1: * Jesus Perez MD - Primary * Florencia Kathleen MD - Assisting Panel 2: * Yahaira Doran MD - Primary OR positioning comments: supine Neuro: POSS Sedation Level: Awake & Alert Last pain medication given: Fentanyl Push: 50 mcg (01/08/131909) Functional Epidural: Yes, srr MAR for med, Dermatome level T8-L2 on left to incision Respiratory: RR: 13 , O2 Sat: 97 %, O2 Delivery: CPAP Breath Sounds: WDL JIMMY: clear;diminished LLL: diminished RUL: clear;diminished RLL: diminished KARELY Yes, has own CPAP machine Cardiac: BP: 159/71 mmHg HR: 73 GI: Nausea/Vomiting Status: None Comments: BT hypoactive : Last void: quiroga placed in OR by urology Contact Name: Shilpi Burns- Contact Number: [phone] Family contacted: in to see pt in PACU Belongings:CPAP machine documented in this enco unter Plan of Treatment + +---------+--------+ + + [...] JOS IONIZED CA, POC | Routin | 01/08/2013 | [...] BLADDER | ve | 12:45 PM | (HCC) | | | HYDRODISTENSION | Surgic | [...] YU | [address] | [place], [place] | | | BRIANNA CONNOLLY OF [facility] | [address] | [phone] | | | TESTS | | | [...] [facility] | [address] | [place] [address] | | | SERVICES, CORE | PARK [...] | + + + + + | [facility] | [address] | [place] [address] | | | SERVICES, CORE | TJ [...] [facility] | [address] | [place] [address] | | | SERVICES, CORE | PARK [...] [facility] | [address] | [place] [address] | | | SERVICES, CORE | PARK [...] + + + + + | [facility] | [address] | [place] [address] | | | DAVEY CRAWFORD | [address] | | | + [...] [facility] | [address] | [place], [place] | | | [facility]ANNA CON[facility] OF CARE | [facility] | [address] | | | TESTS | | | [...] (H) | 60 - 99 mg/dL | [facility] - | | | GLUCOSE, | [...] NICHOLAS | [address] | [place], [place] | | | [facility] OF [facility] | [address] | [address] | | | TESTS | | | | + + + + + OPERATION RECORD (01/10/2013 8:03 AM PST) + + | Transcriptions | + + | Florencia Kathleen MD - 01/09/2013 7:00 PM PST Date: 01/08/2013 | | | | Attending Surgeon: Jesus Perez M.D. | | | | Block Stacker(s): Florencia Kathleen MD | | | | [...] | | pressure points padded. Previously, a Quiroga catheter was placed under | | Seldinger [...] Biosyn and Indermil. Previously, a | | 19-Palauan round Delvin drain was placed to the [...] | | ME / HS | | [id number] / [id number] / [id number] / | | | | | + [...] [facility] | [address] | [place] [address] | | | SERVICES, CORE | PARK [...] | + + + + + | [facility] | [address] | [place] [address] | | | SERVICES, CORE | TJ [...] [facility] | [address] | [place] [address] | | | SERVICES, CORE | PARK [...] [facility] | [address] | [place] [address] | | | SERVICES, CORE | PARK [...] | + + + + + | [facility] | [address] | [place] [address] | | | SERVICES, CORE | TJ [...] [facility] | [address] | [place], [place] | | | [facility] | [address] | [address] | | | TESTS | | | [...] + + | SONJA NICHOLAS | [address] [facility] [facility] | [place], [place] | | | [facility] OF [facility] | [address] | [address] | | | TESTS | | | [...] | | was requested in placing a Quiroga catheter due to his large pannus, which [...] with | | some debris. A 14 Palauan Quiroga catheter over a wire. | | | [...] was made to place | | a Quiroga catheter blindly; however, this was not successful. The patient was | | then re-prepped and draped in the usual sterile fashion. A 16-Palauan flexible | | Olympus cystoscope was advanced [...] | | An attempt to pass a 14-Palauan catheter over the wire, was also unsuccessful. | | The wire was removed and the cystoscope was replaced. A superstiff wire was | | then advanced into the meatus and bladder. The cystoscope was advanced | | over the wire into the patient's bladder. The above findings were noted. | | The cystoscope was removed. A 14-Palauan Councill catheter was then placed | | [...] | | | | Drains: | | 14-Palauan Quiroga catheter. | | | | Disposition: | | OR for General Surgery procedure | | | | | | Yahaira Doran M.D. | | JS / HS | | [id number] / [id number] / [id number] / | | | | | + [...] + + + | SONJA NICHOLAS | [address] | [place], [place] | | | [facility] | [address] | [address] | | | TESTS | | | [...] | + + + + + | [facility] | [address] | [place] [address] | | | SERVICES, CORE | TJ [...] | + + + + + | [facility] | [address] | [place] [address] | | | SERVICES, CORE | TJ [...] | + + + + + | [facility] | [address] | [place] [address] | | | SERVICES, CORE | PARK [...] | + + + + + | [facility] | [address] | [place] [address] | | | SERVICES, CORE | TJ [...] [facility] | [address] | [place] [address] | | | YVETTE, CORE | [address] | | | [...] - [facility] | [address] | [place], [place] | | | [facility] | [address] | [address] | | | TESTS | | | [...] + + + | SONJA NICHOLAS | [address] | [place], [place] | | | [facility] OF [facility] | [address] | [address] | | | TESTS | | | | + + + + + X-RAY PORTABLE CHEST 1 VIEW (01/08/2013 7:12 PM PST) + + + + + + | Component | Value | Ref Range | Performed | Pathologist | | | | | At | Signature | + + + + + + | X-RAY | CT CHEST 1 VIEW, | | | | [...] KAITLIN | | | | | | ARLENE DIAZuthor: | | | | | | Godwin [...] KAITLIN | | | | | | FUSS 01/09/2013 9:37 AM | | | | | | | | | | + + + + + + + + | Specimen | + + | | + + + +---------+ + + | Performing | Address | City/State/Zipcode | Phone Number | | Organization | | | | + +---------+ + + | [facility] DEPARTMENT OF | | | | [...] [facility] | [address] | [place] [address] | | | SERVICES, CORE | PARK [...] [facility] | [address] | [place] [address] | | | SERVICES, CORE | PARK [...] | + + + + + | [facility] | [address] | [place] [address] | | | DAVEY CRAWFORD | [address] | | | + [...] Y[facility] | [address] | [place], [place] | | | B[facility]ANNA CON[facility]LLY OF [facility] | [facility] | [address] | | | TESTS | | | | + + + + + ABG SOR POC (01/08/2013 5:36 PM PST) + + [...] [facility] | [address] | [place], [place] | | | [facility] | [address] | [address] | | | TESTS | | | [...] [facility] | [address] | [place], [place] | | | B[facility]NA [facility] OF [facility] | [address] | [address] | | | TESTS | | | | + + + + + SODIUM (ART)MIKI SOR (01/08/2013 4:32 PM PST) + [...] NICHOLAS | [address] | [place], [place] | | | [facility] | [address] | [address] | | | TESTS | | | [...] [facility] | [address] | [place], [place] | | | [facility] | [facility] | [address] | | | TESTS | | | [...] | [facility] | [address] | [place], [place] | | | [facility] | [address] | [address] | | | TESTS | | | | + + + + + CHLORIDE (ART), POC SOR (01/08/2013 4:32 PM PST) [...] NICHOLAS | [address] | [place], [place] | | | [facility] | [address] | [address] | | | TESTS | | | | + + + + + CALCIUM (ART)MIKI (01/08/2013 4:32 PM PST) + +-------+ [...] [facility] | [address] | [place], [place] | | | [facility] | [address] | [address] | | | TESTS | | | [...] [facility] | [address] | [place], [place] | | | DARYA CONNOLLY | [facility] | [address] | | | TESTS | | | [...] + + + + + | [facility] | [address] | [place], [place] | | | B[facility]NA [facility]LLY OF [facility] | [address] | [address] | | | TESTS | | | [...] NICHOLAS | [address] | [place], [place] | | | [facility] OF [facility] | [facility] | [address] | | | TESTS | | | [...] [facility] | [address] | [place] [address] | | | SERVICES, | [address] [...] | + + + + + | [facility] | [address] | [place] [address] | | | SERVICES, | [address] [...] [facility] | [address] | [place], [place] | | | B[facility]NA [facility]LLY OF [facility] | [address] | [address] | | | TESTS | | | [...] A | | | | | | sales utility representative section | | | | | [...] + + + + | [facility] | [address] | [place] [address] | | | PATHOLOGY | [address] | | | + [...] | | dose on Maura 01/09/13 at 2100 | | | | | [...] | | | | | PRN, Starting 01/08/13 at 1459, | | | | | [...] PST | | | | | Until 01/10/13 at 0726 | | | | | [...] | | | (after last reorder) on Maura | | | | | | [...] | | | | | NEEDED, Starting Sun01/08/13 at | | | | | | | 1228, Until Sun01/10/13 at 1430, | | | | | [...]
--- OUTSIDE RECORDS SUMMARY | ~2020-08-05 | XMS | Encounter Summary ---
Demographics + + + | Address | [address] | | | [place] [address] | + + + | Home Phone [...] Author | [facility] | | | and [place] | + + + | Organization | [facility] [...] [place] | | | | | [address] | | + + + + + Care Team Providers + +------+ + | Care Cylinder Handler Name | Role | Phone | + +------+ + | Moe Bella MD | PCP | | + +------+ + Reason for Visit +--------+--------+ + | Reason | Onset | Comments | | | Date | | +--------+--------+ + | Other | 02/23/ | | | | 2020 | | +--------+--------+ + Encounter Details +--------+ + + + + | Date | Type | Department | Care Team | Description | +--------+ + + + + | 02/23/ | Telephone | [facility] [place] | Vannessa Taylor | Other | | 2020 | | PHYSIATRY [address] | BUTCH [address] | | | | | [facility] [address] | [facility] | | | | | [place] | [address] | | | | | [address] | [address] | | | | | [phone] | | | +--------+ + + + [...] this encounter Miscellaneous Notes Telephone Encounter - Asa [employer] Metalsmith - 02/24/2020 4:00 PM PDTNiclen avila se advise, P DTTelephone Encounter - Daly Álvarez Sohan - 02/24/2020 3:57 PM PDTGerard estrada to advise that His insurance has approved him to be seen by Dr. Collado in outpatien t rehab, states a referral was discuss at [facility] and it was not placed please advise. Evelyn watters signed by Daly Álvarez at 02/24/2020 3:58 PM PDTdocumented in this encounter Plan of Treatment Not on filedocumented as of this encounter Visit Diagnoses Not on filedocumented in this encounter"
--- OUTSIDE RECORDS SUMMARY | ~2020-08-05 | XMS | Encounter Summary ---
Demographics + + + | Address | [address] | | | [place] [address] | + + + | Home Phone | | + + + | Preferred Language | Unknown | + + + | Marital Status | | + + + | Baptist Affiliation | 1013 | + + + | Race | White | + + + | Ethnic Group | Not or | + + + Author + + + | Author | [facility] | [...] [place] | | | | | [address] | | + + + + + Care Team Providers + +------+ + | Care Dispatcher Automobile Rental Name | Role | Phone | + [...] | 02/28/ | Refill | [facility] [place] | Jose Mirza | Medication Refill | | 2017 | | NEUROSURGERY [address] | [address] | | | | | [address] | [address] [place], [place] | | | | | [place], [place] | [address] | | | | | [address] | | | | | | [phone] | | | +--------+--------+ + + + [...] this encounter Miscellaneous Notes Telephone Encounter - Leila Bui RN - 03/01/2017 10:18 AM PDTS/p 06/01/2016 C4-5, C5- 6, C6-7 Anterior Cervical Discectomy Fusion Next appointment 03/16/2017 Re-routing request to PCP through pharmacyElectronically signed by Leila Bui RN at 0 03/01/2017 10:21 AM PDTdocumented in this encounter Plan of Treatment Not on filedocumented as of this encounter Visit Diagnoses Not on filedocumented in this encounter"
--- OUTSIDE RECORDS SUMMARY | ~2020-08-05 | XMS | Encounter Summary ---
Demographics + + + | Address | [address] | | | [place] [address] | + + + | Home Phone [...] + | Tico Burns | ECON | [address] | | | | | [place], [place] | | | | | [address] | | + + + + + Care Team Providers + +------+ + | Care Packing Machine Feeder Name | Role | Phone | + +------+ + | Moe Bella MD | PCP | | + +------+ + Encounter Details +--------+ + + + + | Date | Type | Department | Care Team | Description | +--------+ + + + + | 06/21/ | Abstract | Digestive Health | Violetta Byers, | | | 2011 | | Center at [facility] [address] | RUFFLING MACHINE OPERATOR [address] | | | | | [address] | [facility] [address] | | | | | for Health and | [place], [place] | | | | | [place] [address] | [address] | | | | | [place], [place] | [phone] | | | | | [address] | | | | | | [phone] | | | +--------+ + + + [...]
--- OUTSIDE RECORDS SUMMARY | ~2020-08-05 | XMS | Encounter Summary ---
Demographics + + + | Address | [address] | | | [place] [address] | + + + | Home Phone [...] + | Tico Burns | ECON | [address] | | | | | [place], [place] | | | | | [address] | | + + + + + Care Team Providers + +------+ + | Care Drink Waiter Name | Role | Phone | + [...] Center at [facility] [address] | MANAGER OF TRANSPORTATION [address] | | | | | [address] | [facility] [address] | | | | | for Health and | [place], [place] | | | | | [place] [address] | [address] | | | | | [place], [place] | [phone] | | | | | [address] | | | | | | [phone] | | | +--------+ + + + [...]
--- OUTSIDE RECORDS SUMMARY | ~2020-08-05 | XMS | Encounter Summary ---
Demographics + + + | Address | [address] [facility] [address] | | | [place] [address] | + + + | Home Phone | | + + + | Preferred Language | Unknown | + + + | Marital Status | | + + + | Latter Day Affiliation | CHR | + + + [...] + | Tico Burns | ECON | [address] | | | | | [place], [place] | | | | | [address] | | + + + + + Care Team Providers + +------+ + | Care Utility Agent Name | Role | Phone | [...] Medicine Clinic at | ANP [address] | (Primary Dx); Other | | | | [facility] 4th Floor [address] | specified | | | | [address] | [place], [place] | pre-operative | | | | Mailcode: CH4S | [id number] | examination; DM | | | | [facility] | [phone] | (diabetes mellitus) | | | | and Healing, | | (HCC); Hypertension; | | | | Building 1,4th Floor | | Hyperlipidemia; | | | | [place], [place] | | Thyroid cancer | | | | [address] | | ([facility]); | | | | [phone] | | Hypothyroidism; KARELY | | | [...] your procedure. Surgery Check in Locations Admitting [facility] Surgery Check in Time: The Preoperative [...] it is after office hours, call the [facility] frame operator at [phone] and ask them to page him or [...] to be coming fatigued. Saw his local acquisition manager within the month, who encourages this procedure for the patient. However, the patient's weight prohibits a nuc stress or cardiac cath proced ure in the [facility]. Per ERIC Rodriguez cardiology-[facility] is not able to accomodate h is [...] and PMHX. Document will be scanned in CellP[employer]. Current Medication List Name Sig ASPIRIN 81 [...] further investigation and manageme nt. A. Acute PA within 7 days: no B. Unstable angina/Recent PA (7- 30 days): no C. Decompensated CHF: [...] no Rate of cardiac , non fatal PA, non fatal cardiac arrest (RCRI) 0 risk factors - 0.4% 1 risk factors - 1%, 2 risk factors - 7%, 3 or >risk factors - 11% (may benefit from perioperative beta blockers) Risk Factor Recommendations: 1-2 risk factors- proceed with planned surgery with HR control or consider noninvasive testing if it will roving changer Surgery Risk: High Patient-related risk: Estimated [...] to this patient's care. FAVIO Romero ANP [facility] [address] [place] [id number] [phone] signed by FAVIO Romero at 12/30/2012 9:24 AM PSTdocumen lou in this encounter Procedure Notes Chelsey, Faculty - 12/26/2012 6:54 PM PSTAssociated Order(s): OUTSIDE CARDIOLOGYElectronical ly signed by Usman Barbosa at 12/26/2012 6:54 PM PSTdocumented in this encounter Plan of [...] (H) | 4.0 - 5.7 % | [facility], | | | A1C,POC | | | [...] + + + + | [facility], POINT | [address] | [place] [address] | | | OF CARE TESTS | [...] | | | | | AMITA TAN ([id number]) | | | | | | on 12/26/2012 10:49:35 PM | | | | + + + + + + + + | Specimen | + + | | + + + + + | Narrative | Performed At | + + + | Please click | [facility] | | on view image for the detailed interpretation from [employer] results. | CARDIOLOGY | + + + + + + + + | Performing | Address | City/State/Zipcode | Phone Number | | Organization | | | | + + + + + | [facility] | [address] | [place], [place] | | | CARDIOLOGY | [address] | [address] | | + + + + + KIMBERLY (12/26/2012 1:44 PM PST) + + + [...] + + + + + | [facility] | [address] | [place] [address] | | | SERVICES, CORE | [address] [...] + + | [facility] | [address] | [place] [address] | | | SERVICES, | [address] [...] + + + + + | [facility] | [address] | [place] [address] | | | SERVICES, | [address] [...] | | | LABORATORY | | | MALAGASY | | | SERVICES, | | | [...] | + + + + + | [facility] | [address] | [place] [address] | | | SERVICES, CORE | TJ [...]
--- OUTSIDE RECORDS SUMMARY | ~2020-08-05 | XMS | Encounter Summary ---
Demographics + + + | Address | [address] [facility] [address] [facility] | | | [place] [address] | + + + | Home Phone [...] + | Tico Burns | ECON | [address] | | | | | [place], [place] | | | | | [address] | | + + + + + Care Team Providers + +------+ + | Care Cake Press Operator Helper Name | Role | Phone [...] Order | [address] | [address] [place], | | | | | Loop Physician's | [place] [address] | | | | | [place], 4th Floor | [phone] | | | | | [place], [place] | | | | | | [address] | | | | | | [phone] | | | +--------+ + + + [...]
--- OUTSIDE RECORDS SUMMARY | ~2020-08-05 | XMS | Encounter Summary ---
Demographics + + + | Address | [address] [facility] [address] | | | [place] [address] | + + + | Home Phone | | + + + | Preferred Language | Unknown | + + + | Marital Status | | + + + | Gnosticism Affiliation | 1013 | + + + | Race | White | + + + | Ethnic Group | Not or | + + + Author + + + | Author | [facility] | | | and [place] | + + + | Organization | [facility] Services [...] [address] | | | | | [place], [place] | | | | | [address] | | + + + + + Care Team Providers + +------+ + | Care Coal Grader Name | Role | Phone | + +------+ + PCP | Unavailable | + +------+ + Encounter Details +--------+ + + + + | Date | Type | Department | Care Team | Description | +--------+ + + + + | 01/21/ | Hospital | [facility] | Conversion | Scrotal mass | | 2011 | Encounter | [facility] [address] | Transaction, | | | | | [address] | Provider Unknown | | | | | [place], [place] | [phone] | | | | | [address] | | | | | | [phone] | | | +--------+ + + + [...] Performed At | + + + | [facility] PELVIS W CONTRAST 01/22/2012 12:18 PM [...] Conversion - 06/28/2019 2:33 AM PDT [facility] PELVIS W | | CONTRAST01/22/2012 12:18 PM [...]
--- OUTSIDE RECORDS SUMMARY | ~2020-08-05 | XMS | Encounter Summary ---
Demographics + + + | Address | [address] [facility] | | | [place] [address] | + + + | Home Phone [...] + | Tico Burns | ECON | [address] | | | | | [place], [place] | | | | | [address] | | + + + + + Care Team Providers + +------+ + | Care Director Of Retention Name | Role | Phone | + +------+ + | Moe Bella MD | PCP | | + +------+ + Encounter Details +--------+ + + + + | Date | Type | Department | Care Team | Description | +--------+ + + + + | 09/18/ | Documentati | Digestive Health | [facility] Hair, | | | 2011 | on | Center at [facility] [address] | ANP | | | | | [address] [facility] | | | | | | for Health and | | | | | | Healing, Building 2 | | | | | | [place], [place] | | | | | | [address] | | | | | | [phone] | | | +--------+ + + + [...] this encounter Miscellaneous Notes Telephone Encounter - America Hair ANP - 09/18/2012 9:57 AM PSTPt's history was review ed at the bariatric high risk conference. Given that he has had a prior attempt at a gastri c bypass with " partial jejunectomy" in [place], the ability to provide him with another bariatric procedure will depend on evaluation of his op-note and his ability to lower his B RI from 79. We will request the operative note from Jalen Rao and proceed with scheduling with Dr. Lizarraga after his review of the information. documented in this encounter Plan of Treatment Not on filedocumented as of this encounter Visit Diagnoses Not on filedocumented in this encounter
--- OUTSIDE RECORDS SUMMARY | ~2020-08-05 | XMS | Encounter Summary ---
Demographics + + + | Address | [address] | | | [place] [address] | + + + | Home Phone [...] + + + | Author | [facility] | | | and [place] | + + + | Organization | [facility] | | | [...] [place] | | | | | [address] | | + + + + + Care Team Providers + +------+ + | Care Commodities Requirements Analyst Name | Role | Phone | [...] | | | | | | | [place] | | | | | | | [...] + + | 06/01/ | Surgery | [facility] | Chauncey Lee MD | C4-5, C5-6, C6-7 | | 2016 | | MED CTR OR INTRA OP | [address] | Anterior Cervical | | | | [address] | [place] [address] | Discectomy Fusion | | | | [place], [place] | [phone] | | | | | [address] | | | | | | [phone] | | | +--------+---------+ + + + [...] + + + | Blood Pressure | 161/86 | 06/01/2016 6:21 AM | | | | | PDT | | + + + + + | Pulse | 60 | 06/01/2016 6:21 AM | | | | | PDT | | + + + + + | Temperature | 36.2 C (97.2 F) | 06/01/2016 6:21 AM | | | | | PDT | | + + + + + | Respiratory Rate | 16 | 06/01/2016 6:21 AM | | | | | PDT | | + + + + + | Oxygen Saturation | 97% | 06/01/2016 6:21 AM | | | [...] might be differ ent from the original. [facility] NEUROSURGERY DISCHARGE SUMMARY Patient Name: Gerard Burns [...] Take 40 mg by mouth Daily. ergocalciferol 32118 UNITS capsule Take 50,000 Units by mouth [...] LANCETS MISC Use as directed ergocalciferol (ERGOCALCIFEROL) 31477 UNITS capsule 50,000 Units Take 50,000 Units [...] t raise your hands over your head [id number](s)after your surgery. Don t drive until your [...] this your 1 month post op appointment. [id number] [employer]. [address] [place] [address]. All righ ts reserved. This information is [...] | | | 12 | | | 00210 UNITS capsule | | | | | [...] signed by: Chauncey Lee MD, 06/01/2016 8:27 [facility] ermes, ERIC Dickerson - 05/10/2016 8:19 AM PDT ERIC Maldonado [address] [place] [address], [address] [place], [place] [id number] FAX: NEUROSURGERY HISTORY AND PHYSICAL EXAMINATION CHIEF [...] by mouth 2 times daily. ergocalciferol (ERGOCALCIFEROL) 03368 UNITS capsule Take 50,000 Units by mouth Once a w tejon. FLUoxetine (PROZAC) 20 mg capsule Take 20 [...] no apparent deficits with short or watermelon harvesting supervisor memory. CRANIAL NERVES: II: Acuity is intact. 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 He states his has done [place] collar manageme nt and is a "pro". [...] Tatianna Padgett OT, 06/02/2016 14:05 lan of Care - Mirtha Chen - 06/02/2016 12:27 PM PDTDischarge Planning: Met with Gerard regarding discharging today. He is all set up with DME equipment at home. [facility] health was declined. He uses [facility] for his pharmacy needs. His spouse will transport him home today. She will help out as needed. Electronically signed by: Mirtha Hoyt 06/02/2016 12:28 lan of Care - Gee Melo, PT - 06/02/2016 10:06 AM PDTProblem: Patient [...] Impaired mobility Start Time: 829 Stop time: 55 Time Calculation: 25 minutes Missed Treatment Time: [...] multiple contributors. Gait . (.) Level of Gaylord : supervision required Assistive Device: bariatric, 2 wheeled walker (FWW) Distance (feet): 160 feet Gait Pattern Analysis: 2-point gait Impairments: decreased flexibility, impaired balance, postural control impaired Stairs Number of Stairs: 4 Handrail Location: right side (ascending) Level of Gaylord: supervision required Assistive Device: none Technique Used: step to step (ascending), step to step (descending) Safety Issues: balance decreased during turns, weight-shifting ability decreased Impairments: decreased flexibility, impaired balance, postural control impaired Transfers Sit-Stand, Level of Gaylord: supervision required Stand-Sit, Level of Gaylord: supervision required [id number], Assistive Device: none Safety Issues: weight-shifting ability decreased Impairments: postural control impaired, impaired balance Bed Mobility Assistive Device: bed rails Roll Left, Level of Gaylord: modified independence Supine to Sit, Level of Gaylord: verbal cues required Sit to Supine, Level of Gaylord: (Not tested) Safety Issues: decreased use of [...] Activity Type: supine to sit/sit to supine Gaylord Level: independent Assistive Device: none Time to Achieve: 2 - 3 days Goal Status: progressing toward goal Transfer Training Goal, Activity Type: sit to stand/stand to sit Gaylord Level: modified independence Assistive Device: 2 wheeled walker (FWW) Time to Achieve: 2 - 3 days Goal Status: progressing toward goal Gait Training Goal, Gaylord Level: modified independence Assistive Device: bariatric Distance: 150 Time to Achieve: 2 - 3 days Goal Status: progressing toward goal Stairs Goal, Gaylord Level: modified independence Assistive Device: none Number [...] therapy recommendation: Pending progress and medical clearance rec opal pt be discharged home and after a period of recovery, consider OPPT if deficits persi st. Plan for next treatment: Daily, LKC, 1P, FWW, progressive functional mobility, spinal educa tion, collar training Electronically signed by: Moe Melo, PT, 06/02/2016 9:55 lan of Care - Yee Eastman, FLOOR COVERING PRINTER ASSISTANT - 06/02/2016 9:48 AM PDTProblem: Patient Care [...] Care - [facility] er, Neisha Buckner RN - 06/02/2016 3:19 AM [...] 5/5. lan of Care - Andrew Hoffman, FLOOR COVERING PRINTER ASSISTANT - 06/01/2016 8:06 PM PDTProblem: Patient Care [...] need for help with mask. lan of Care - Rona Mendez RN - 06/01/2016 6:37 [...] was dangled on arrival and walked from [facility] to bed with CGA. Bilateral legs and right upper extremity is 5/5. Bilateral folded cloth taper are stro ng. Left upper extremity is [...] 3 side steps along eob Level of Gaylord : contact guard assist Assistive Device: (hand hold) Distance (feet): 2 Impairments: impaired balance, pain, postural control impaired Stairs Pt has no stairs at home but has 4 steps to access work environment therefor stair training is indicated Transfers Sit-Stand, Level of Gaylord: minimum assist (75% patient effort) Stand-Sit, Level of Gaylord: contact guard assist [id number], Assistive Device: (Hand hold) Safety Issues: weight-shifting ability decreased Impairments: impaired balance, pain, postural control impaired Bed Mobility Assistive Device: bed rails Supine to Sit, Level of Gaylord: verbal cues required Sit to Supine, Level of Gaylord: not tested Safety Issues: decreased use of legs for bridging/pushing Impairments: pain, impaired balance, postural control impaired ROM ROM limited by soft tissue approximation Strength Strength Testing Results: no strength deficits were identified Muscle Tone Muscle Tone Assessment Muscle Tone Assessment: within normal limits STG GOALS Bed Mobility Goal, Activity Type: supine to sit/sit to supine Gaylord Level: independent Assistive Device: none Time to Achieve: 2 - 3 days Goal Status: new, progressing toward goal Transfer Training Goal, Activity Type: sit to stand/stand to sit Gaylord Level: modified independence Assistive Device: 2 wheeled walker (FWW) Time to Achieve: 2 - 3 days Goal Status: new, progressing toward goal Gait Training Goal, Gaylord Level: modified independence Assistive Device: 2 wheeled walker (FWW) Distance: 150 Time to Achieve: 2 - 3 days Goal Status: new, progressing toward goal Stairs Goal, Gaylord Level: modified independence Assistive Device: none Number [...] plan for care. Today's Treatment Start Time: 1514 Stop time: 154 Time Calculation: 30 minutes Missed Treatment Time: [...] comfort he wants a soft food diet. CHRONIC CARE NURSE rec'd and discussed with Pt that he have dysphagia advanced textures and thin liqu ids. Pt verbalized agreement of this plan. Pt likely will not need further CHRONIC CARE NURSE services, how ever CHRONIC CARE NURSE will check in with the Pt next [...] Planned Interventions: diet texture modification, patient/caregiver education CHRONIC CARE NURSE Diagnosis: MIld pharyngeal dysphagia secondary to odynophagia [...] 15:54 lan of Care - Chauncey Curtis, FLOOR COVERING PRINTER ASSISTANT - 06/01/2016 1:17 PM PDTProblem: Patient Care [...] Note Gerard Burns 51 y.o. male 1965 [id number] Proc. Date 06/01/2016 Preop Dx Other spondylosis [...] allograft prior to insertion was filled with Evangeline bon e. The structural allograft bone was then tamped into place at C4-5, C5-6, and C6-7. Anterior cervical plating was then performed by holding a 55 mm Zevo plate in place over th e segments with holding pins. Fluoroscopy was used to confirm its appropriate positioning a nd then rotor pilot holes were made in the C4-7 vertebral [...] signed by: Chauncey Lee MD 06/01/2016 10:56 [facility] rief Op Note - Wu Lee MD - 06/01/2016 10:56 AM PDTFormatting of this note might be different from the origin al. Brief Operative Note Gerard Burns 51 y.o. male 1965 [id number] Proc. Date 06/01/2016 Preop Dx Other spondylosis [...] Surgeon Chauncey Lee MD - Primary ERIC Hand-Joan - Assisting EBL 104 Findings C4-7 spondylosis with C4-5 left disc herniation. C bracing. Complications none Specimens * No specimens in log * Drains Drain/Device Site 06/01/16 1042 #1 Right anterior neck (Active) Electronically signed by: Chauncey Lee MD 06/01/2016 10:56 [facility] by Chauncey Lee MD at 016 10:58 AM PDTPlan of Care - Venkat Maya Chaplain - 06/01/2016 8:01 AM PDTProblem: Spiritual Distress, Risk/Actual (Adult,Obstetrics,Pediatric) Goal: Spiritual Well-being Patient will demonstrate the desired outcomes by discharge/transition of care. Spiritual Care Gerard Burns is a 51 y.o. male who is admitted for Other spondylosis with radiculop athy, cervical region [M47.22]. Model Artists' visit is in response to an electronic [...] feels secure in his care. He is Denominational, attends [facility] [employer] in [place], [place], and is strong in his zack. [...] + | [address] [facility] | [address] | [place] | [phone] | | [facility] | | [address] | | | - LABORATORY | | [...] + + | [facility] | [address] | [place] | [phone] | | [facility] | | [address] | | | - LABORATORY | | [...] + | [facility] | [address] | [place] | [phone] | | [facility] | | [address] | | | - LABORATORY | | [...] | | | POC | | | NEISHA | | | | | | [...] [address] | [place] | [phone] | | [facility] | | [address] | | | - LABORATORY | | [...] | | POC | | | STYanet NEISHA | | | | | | [...] ST. | [address] | [place] | [phone] | | [facility] | | [address] | | | - LABORATORY | | [...] | + + + + + | [facility] | [address] | [place] | [phone] | | [facility] | | [address] | | | - LABORATORY | | [...] [address] | [place] | [phone] | | [facility] | | [address] | | | - LABORATORY | | | | + + + + + [place] C-Sunil Statnatalie No Charge (06/01/2016 10:47 AM PDT) [...] ST. | [address] | [place] | [phone] | | [facility] | | [address] | | | - LABORATORY | | [...]
--- OUTSIDE RECORDS SUMMARY | ~2020-08-05 | XMS | Encounter Summary ---
Demographics + + + | Address | [address] | | | [place] [address] | + + + | Home Phone [...] | [facility] | | | and [place] [...] [place] | | | | | [place] | | | | | [address] | | + + + + + Care Team Providers + +------+ + | Care Naturalization Examiner Name | Role | Phone | + +------+ + | Moe Bella MD | PCP | | + +------+ + Reason for Visit +---------+--------+ + | Reason | Onset | Comments | | | Date | | +---------+--------+ + | Results | 05/22/ | | | | 2015 | | +---------+--------+ + Encounter Details +--------+ + + + + | Date | Type | Department | Care Team | Description | +--------+ + + + + | 05/22/ | Telephone | [facility] [place] | Chauncey Lee MD | Results | | 2015 | | NEUROSURGERY [address] | [address] | | | | | [facility] [address] | [place] [address] | | | | | [place] | [phone] | | | | | [address] | | | | | | [phone] | | | +--------+ + + + [...] Miscellaneous Notes Telephone Encounter - Judith Peres S - 05/22/2016 4:43 PM Talon is advised per Dr.Y pacheco. He verbalized understanding. He did not take any insulin the night before or the morning of the day he completed the lab s, he states that he "spaced" it out. elephone Encounter - Judith Peres - 05/22/2016 4:42 PM PDT----- Message from Chauncey Lee MD sent at 2015 12:11 PDT ----- His blood sugar is > 500. If it is that high the day of surgery, he will have to be cancelled. He should work on his diet and with his diabetes physcian to get better control Chauncey Lee ----- Message ----- From: Background User Lab Sent: 05/10/2016 16:17 To: Chauncey Lee MD documented in this enc ounter Plan of Treatment Not on filedocumented as of this encounter Visit Diagnoses Not on filedocumented in this encounter
--- OUTSIDE RECORDS SUMMARY | ~2020-08-05 | XMS | Encounter Summary ---
Demographics + + + | Address | [address] [facility] | | | [place] [address] | + + + | Home Phone [...] + + | Author | [facility] | | | and [place] | + + + | Organization | [facility] | | [...] [place] | | | | | [address] | | + + + + + Care Team Providers + +------+ + | Care Mining Engineering Technologist Name | Role | Phone | + +------+ + | Moe Bella MD | PCP | | + +------+ + Encounter Details +--------+ + + + + | Date | Type | Department | Care Team | Description | +--------+ + + + + | 02/10/ | Abstract | [facility] [place] | Vannessa Taylor | | | 2020 | | PHYSIATRY [address] | BUTCH Hauser [address] | | | | | [facility] [address] | [facility] | | | | | [place] | [address] [place] | | | | | [address] | [address] | | | | | [phone] | | | +--------+ + + + [...]
--- OUTSIDE RECORDS SUMMARY | ~2020-08-05 | XMS | Encounter Summary ---
Demographics + + + | Address | [address] | | | [place] [address] | + + + | Home Phone [...] + | Tico Burns | ECON | [address] | | | | | [place], [place] | | | | | [address] | | + + + + + Care Team Providers + +------+ + | Care Metal Control Worker Name | Role | Phone | [...] | | 2016 | | [facility] [address] | [employer]GE[employer]SI[employer] CREW[employer] [address] | Recall) | | | | [address] [facility] | [facility] [address] | | | | | for Health and | [place], [place] | | | | | [place] [address] | [address] | | | | | [place], [place] | [phone] | | | | | [address] | | | | | | [phone] | | | +--------+ + + + [...] 02/11/2016 3:22 PM PDT Recall Information ID: [id number] Status: New [10] Patient: LUCY BURNS Visit Type: BAR RETURN [5441] Provider/Resource: VIOLETTA BROWN [[id number]] Department: BAR BARIATRIC SURG [facility] [[id number]] Notification Date: 01/09/2016 Recall Date: 01/09/2016 Expiration Date Letter: Generating Appointment: 02/27/13 Audit [place]: User: Time: Status: Ambar Webster [CHAUMJE] 02/04/2013 11:47 AM New [10] Scheduling Instructions 3 year [facility] follow up 9.5.2014 - ..2015 Appointment Notes 3 year [facility] postop - dos 3.6.2012 - open sleeve - deveney schedule 9.5.2014 - 07.08.2015 Communication History User: NOEL ACEVEDO Date/time: 02/11/16 3:21 PM Comment: requested pcp notes Context: Judi Recall Report Phone number: [phone] Phone Type: Comm. type: Telephone Call type: Outgoing Contact: Lucy Burns Relation to patient: Self User: HEMANTH MOORE Date/time: 01/12/16 2:10 PM Comment: Context: Judi Recall Report Outcome: Left Message Phone number: [phone] Phone Type: Comm. type: Telephone Call type: Outgoing Contact: Lucy Burns Relation to patient: Self User: NOEL ACEVEDO Date/time: 12/09/15 11:24 AM Comment: Context: Judi Recall Report Outcome: Left Message Phone number: [phone] Phone Type: Comm. type: Telephone Call type: Outgoing Contact: Lucy Burns Relation to patient: Self documented in this encount er Plan of Treatment Not on filedocumented as of this encounter Visit Diagnoses Not on filedocumented in this encounter"
--- OUTSIDE RECORDS SUMMARY | ~2020-08-05 | XMS | Clinical Summary ---
Demographics + + + | Address | [address] [facility] | | | [place] [address] | + + + | Home Phone | | + + + | Preferred Language | Unknown | + + + | Marital Status | | + + + | Bahai Affiliation | 1013 | + + + | Race | White | + + + | Ethnic Group | Not or | + + + Author + + + | Author | [facility] | | | and [place] | + + + | Organization | [facility] | [...] [place] | | | | | [address] | | + + + + + Care Team Providers + +------+ + | Care Manager Route Name | Role | Phone | + [...] | 02/22 | | e | | 61245 UNITS capsule | | | | 12 [...] mg by mouth | | 0 | 09/1 | | Activ | | (PROZAC) 20 [...] mg by mouth | | 0 | 02/1 | | Activ | | (NEURONTIN) 300 mg | 2 times daily. | | | 1/20 | | e | | capsule | [...] the skin Daily as | | | 1/20 | | e | | injection | [...] | | Done | | + + + + + | Hepatitis C | | | | | Screening | 4 | | | + + + + + | Med Mgmt: Vit D | | | | | | 4 | | | + + + + + | Medication | | | | | Management | 4 | | | + + [...] + + | Hemoglobin A1c | | 03/08/20 | | | Screening | 8 | 18, | | | | | 03/07/20 | | | | | 18 | | + + + + + | Med Mgmt: HBA1C | | 03/08/20 | | | | 8 | 18, | | | | | 03/07/20 | | | | | 18 | | + + + + + | Med Mgmt: BUN | | 03/12/20 | | | | 9 | 18, | | | | | 03/11/20 | | | | | 18, | | | | | 03/10/20 | | | | | 18, | | | | | Addition | | | | | al | | | | | history | | | | | exists | | + + + + + | Med Mgmt: Cr | | 03/12/20 | | | | 9 | 18, | | | | | 03/11/20 | | | | | 18, | | | | | 03/10/20 | | | | | 18, | | | | | Addition | | | | | al | | | | | history | | | | | exists | | + + + + + | Med Mgmt: K | | 03/12/20 | | | | 9 | 18, | | | | | 03/11/20 | | | | | 18, | | | | | 03/10/20 | | | | | 18, | | | | | Addition | | | | | al | | | | | history | | | | | exists | | + + + + + | Med Mgmt: Na | | 03/12/20 | | | | 9 | 18, | | | | | 03/11/20 | | | | | 18, | | | | | 03/10/20 | | | | | 18, | | | | | Addition | | | | | al | | | | | history | | | | | exists | | + + + + + | Med Mgmt: eGFR | | 03/12/20 | | | | 9 | 18, | | | | | 03/11/20 | | | | | 18, | | | | | 03/10/20 | | | | | 18, | | | | | Addition | | | | | al | | | | | history | | | | | exists | | + + + + + | Vaccine: Influenza | | 09/25/20 | | | (#1) | 0 | 18, | | | | | 08/20/20 | | | | | 13 | | + + + + + [...] | N/A: | SOFAMOR | | | [id number] | | - [id number]: Qty: 1 | c | Spine | DANEK - DIV | | | 5 / / | | on 06/01/2016 by Chauncey Lee | Jaci Tran | [employer] | | | | | MD [place] at [facility] | | al | - SFDK | | | | | [facility] | | | | | | | + +--------+--------+ +--------+--------+--------+ | Srikanth Al Pls 1cc Aseptic | Graft | N/A: | [employer] - | | 02/15/ | [id number] | | - [id number]: Qty: | | Spine | MEDT | | 2018 | | | 1 on 06/01/2016 by Jaci Lee | | | | /[id number] | | Chauncey Bautista MD at [facility] | | al | | | | 8-220 | | [facility] | | | | | | / | + +--------+--------+ +--------+--------+--------+ | Allograft Cervical [id number] | Graft | N/A: | SPINALGRAFT | | 12/08/ | [id number] | | - [id number]: Qty: 1 | | Spine | | | 2019 | | | on 06/01/2016 by Chauncey Lee | | Noamic | TECHNOLOGIE | | | /[id number] | | MD Lily at [facility] | | al | S - SPNL | | | 854 | | [facility] | | | | | | /[id number] | | | | | | | | [address] | + +--------+--------+ +--------+--------+--------+ | Allograft Cervical [id number] | Graft | N/A: | SPINALGRAFT | | 12/08/ | [id number] | | - [id number]: Qty: 1 | | Spine | | | 2019 | | | on 06/01/2016 by Chauncey Lee | | Cervic | TECHNOLOGIE | | | /[id number] | | MD Lily at [facility] | | al | S - SPNL | | | 7[address] | | [facility] | | | | | | /[id number] | | | | | | | | [address] | + +--------+--------+ +--------+--------+--------+ | Allograft Cervical [id number] | Graft | N/A: | SPINALGRAFT | | | [id number] | | - [id number]: Qty: 1 | | Spine | | | | | | on 06/01/2016 by Chauncey Lee | | Chelsea | TECHNDEREJEIE | | | /[id number] | | MD Lily at [facility] | | al | S - SPNL | | | 8[address] | | [facility] | | | | | | /[id number] | | | | | | | | [address] | + +--------+--------+ +--------+--------+--------+ | Screw D-Thrd Slf-Drl 3.5x15mm | Screw | N/A: | SOFAMOR | | | [id number] | | - [id number]: Qty: 5 | | Spine | DANEK - DIV | | | / | | on 06/01/2016 by Chauncey Lee | | Chelsea | [employer] | | | | | MD Lily at [facility] | | al | - SFDK | | | | | [facility] | | | | | | | + +--------+--------+ +--------+--------+--------+ | Screw D-Thrd Slf-Drl 4.0x15mm | Screw | N/A: | SOFAMOR | | | [id number] | | - [id number]: Qty: 3 | | Spine | DANEK - DIV | | | 5 / | | on 06/01/2016 by Chauncey Lee | | [place] | [employer] | | | | | MD Lily at [facility] | | al | - SFDK | | | | | [facility] | | | | | | [...] + +------+ | MODA | MODA | [id number] | 11/05/19 | [phone] | [address] | PPO | | | AFFINI | | 17-Pre | 9 | [phone] | | | | [place] | | sent | | [place], | | | | [place] | | | | [place] [address] | | | | STONE | | | | | | | | EPO | | | | | | +-------+--------+ +--------+ + +------+ | MODA | MODA | [id number] | 11/05/19 | [phone] | [address] | PPO | | | AFFINI | | 20-Pre | 9 | [phone] | | | | [place] | | sent | | [place], | | | | [place] | | | | [place] [address] | | | | STONE | | [...] Person | Self | [birth year] | [address] | | | al/Fam | | 1965 | [phone] | [place] [address] | | | yas | | | 5 (Home) | | | | | | | [phone] | | | | | | | 5 (Work) | | + +--------+ +--------+ + + | Gerard Burns | Person | Self | [birth year] | [address] | | | al/Fam | | 1965 | [phone] | [place] [address] | | | yas | | | 5 (Home) | | | | | | | [address] | | | | | | | 5 (Work) | | + +--------+ +--------+ + + Advance Directives + + + + + | Type | Date Recorded | Patient | Explanation | | | | Snaker Tractor Driver | | + + + + + | Power of | | | | | Golf Club Maker | | | | + + + [...]
--- OUTSIDE RECORDS SUMMARY | ~2020-08-05 | XMS | Encounter Summary ---
Demographics + + + | Address | [address] | | | [place] [address] | + + + | Home Phone [...] | Author | [facility] | | | and [place] | + + + | Organization | [facility] [...] [place] | | | | | [address] | | + + + + + Care Team Providers + +------+ + | Care Foam Cutting Supervisor Name | Role | Phone | [...] + + | 05/10/ | Office | [facility] | Jose Mirza | Cervical spondylosis | | 2016 | Visit | NEUROSURGERY [address] | [address] | with radiculopathy | | | | [address] [place], [place] | (Primary Dx); | | | | [place], [place] | [id number] | Foraminal stenosis | | | | [address] | | of cervical region; | | | | [phone] | | Degenerative disc | | | [...] differen t from the original. ERIC Maldonado [address] [place] [address], [address] [place] [address] FAX: NEUROSURGERY HISTORY AND PHYSICAL EXAMINATION CHIEF [...] by mouth 2 times daily. ergocalciferol (ERGOCALCIFEROL) 43421 UNITS capsule Take 50,000 Units by mouth [...] has no apparent deficits with short or group home memory. CRANIAL NERVES: II: Acuity is intact. [...] Triceps 5 5 Wrist Flexion 5 4 Network Operations Lead Strength 5 4 Hip Flexion 5 5 [...]
--- OUTSIDE RECORDS SUMMARY | ~2020-08-05 | XMS | Encounter Summary ---
Demographics + + + | Address | [address] [facility] | | | [place] [address] | + + + | Home Phone | | + + + | Preferred Language | Unknown | + + + | Marital Status | | + + + | Orthodox Affiliation | 1013 | + + + | Race | White | + + + | Ethnic Group | Not or | + + + Author + + + | Author | [facility] | | | and [place] | + + + | Organization | [facility] | | | [...] [place] | | | | | [address] | | + + + + + Care Team Providers + +------+ + | Care Molding Sander Name | Role | Phone | + +------+ + | Moe Bella MD | PCP | | + +------+ + Encounter Details +--------+ + + + + | Date | Type | Department | Care Team | Description | +--------+ + + + + | 09/14/ | Hospital | [facility] | Jose Mirza | S/P cervical spinal | | 2016 | Encounter | MED CTR XRAY [address] | [address] | fusion; Left arm | | | | [place] | [address] [place], [place] | weakness; Cervical | | | | [place] [address] | [id number] | spondylosis with | | | | [phone] | | radiculopathy; | | | | | [...] | | | 12 | | | 84632 UNITS capsule | | | | | [...] Postop. COMPARISON: Multiple priors. FINDINGS: Visualized | [facility] | | skull base and facial structures demonstrate no acute findings. The | [facility] | | prevertebral soft tissues [...] + + | Performing | Address | City/State/[facility] | Phone Number | | Organization | | | | + + + + + | [address] | [address] | [place], [place] | [phone] | | [facility] | | [address] | | | - IMAGING | | [...]
--- OUTSIDE RECORDS SUMMARY | ~2020-08-05 | XMS | Encounter Summary ---
Demographics + + + | Address | [address] | | | [place] [address] | + + + | Home Phone | | + + + | Preferred Language | Unknown | + + + | Marital Status | | + + + | Judaism Affiliation | 1013 | + + + | Race | White | + + + | Ethnic Group | Not or | + + + Author + + + | Author | [facility] | | | and [place] | + + + | Organization | [facility] | | [...] [place] | | | | | [address] | | + + + + + Care Team Providers + +------+ + | Care Slice Plug Cutter Operator Helper Name | Role | Phone [...] | Cervical | MD [address] | | | Required | | spondylosis | [address] | [address] | | | | | with | [place], | [address] | | | | | radiculopath | [place] [address] | [place] | | | | | y | Phone: | [phone] Phone: | | | | | Degenerative | [phone] | [phone] | | | | | disc | Fax: | Fax: | | | | | disease, | [phone] | [phone] | | | | | cervical | [...] | | | | | | | (HCC) | | | | | | | Sleep apnea, | | | | | | | obstructive | | | +--------+ + + + + + Encounter Details +--------+---------+ + + + | Date | Type | Department | Care Team | Description | +--------+---------+ + + + | 05/01/ | Office | [facility] | Chauncey Morelos MD | Thyroid cancer (HCC) | | 2016 | Visit | OTOLARYNGOLOGY [address] | [address] | (Primary Dx) | | | | [address] | [place] [address] | | | | | [place] | [phone] | | | | | [address] | | | | | | [phone] | Harry Lechuga MD | | | | | | [address] [place] | | | | | | [address] [place] | | | | | | [address] | | | | | | | [...] | | | | | | type ([facility]) Sleep | | | | | | apnea, obstructive | | + + +--------+ + + documented as of this encounter Visit Diagnoses + + | Diagnosis | + + | Thyroid cancer (HCC) - Primary Malignant neoplasm of thyroid gland | + + documented in this encounter
--- OUTSIDE RECORDS SUMMARY | ~2020-08-05 | XMS | Encounter Summary ---
Demographics + + + | Address | [address] [facility] [facility] | | | [place] [address] | + + + | Home Phone [...] [place], [place] | | | | | [address] | | + + + + + Care Team Providers + +------+ + | Care Civil Engineering Draftsperson Name | Role | Phone | + [...] | | status | Valentín Horner | [facility] | | | | | Procedures | [address] | Rd [place], | | | | | CONSULT TO | [place], [place] | [place] | | | | | BARIATRIC | [address] | [address] | | | | | SURGERY | Phone: | Phone: | | | | | | [phone] | [phone] | | | | | | Fax: | Fax: | | | | | | [phone] | [phone] | +--------+--------+ + + + + Encounter Details +--------+---------+ + + + | Date | Type | Department | Care Team | Description | +--------+---------+ + + + | 01/30/ | Office | [facility] | Kristan Miranda, | Morbid obesity, | | 2017 | Visit | Center at [facility] [address] | ACNP [address] | unspecified obesity | | | | [address] | [address] [place], [place] | type (HCC) (Primary | | | | for Health and | [address] | Dx); History of | | | | Healing, Building 2 | | sleeve gastrectomy; | | | | [place], [place] | | Vitamin D deficiency | | | | [address] | | disease; Vitamin B | | | | | | 12 deficiency; | | | [...] tends to his Knees. He saw the office assistant prior to my appointment. Currently is able [...] 430 to 439 at 6 months. 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 Ad automotive exhaust emissions technician with evening meal. Indications: TYPE 2 [...] Sleep apnea on CPAP Thyroid disease 2010 Past Surgical History Procedure Laterality Date Thyroid removal Gastric bypass attempted Fatty tumor excision 04/11/2013 Lower abdomen Gastrectomy, sleeve 01/2013 open. [facility] Dr. 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 2. Labs today: I have provided the print out for him to get these in [place] CBC, CMP, B12, PTH, vit D, ferritin 3.Take acid mechanical commissioning engineer (omeprazole) for first 3 mos, then wean [...] to POC and will call or send [employer] message if any issues. Start time 1515, end time 1545. I spent a total of 30 minutes face to face with this silvino ent. Over 50% of visit was in counseling. Kristan Goldsmith DNP, ACNP, BOX ESTIMATOR Nurse Practitioner for Bariatric Surgery [facility] | [address] | [place], [place] | [address] | documented in this en counter Plan [...]
--- OUTSIDE RECORDS SUMMARY | ~2020-08-05 | XMS | Encounter Summary ---
Demographics + + + | Address | [address] [facility] [address] [address] [facility] | | | [place] [address] | + + + | Home Phone [...] + | Tico Burns | ECON | [address] | | | | | [place], [place] | | | | | [address] | | + + + + + Care Team Providers + +------+ + | Care Industrial Relations Manager Name | Role | Phone | [...] | | at Valentín Evens Martinez | [facility] | | | | | [address] | [place] [address] | | | | | [address]ner | | | | | | [place], [address] [place] [address] | | | | | | [place], [place] | | | | | | [address] | | | | | | [phone] | | | +--------+ + + + [...] | | | | | AMITA TAN ([id number]) | | | | | | on 12/26/2012 10:49:35 PM | | | | + + + + + + + + | Specimen | + + | | + + + + + | Narrative | Performed At | + + + | Please click | [facility] | | on view image for the detailed interpretation from [employer] results. | CARDIOLOGY | + + + + + + + + | Performing | Address | City/State/Zipcode | Phone Number | | Organization | | | | + + + + + | [facility] | [address] | [place], [place] | | | CARDIOLOGY | [address] | [address] | | + + + + + documented in this encounter Visit Diagnoses Not on filedocumented in this encounter
--- OUTSIDE RECORDS SUMMARY | ~2020-08-05 | XMS | Encounter Summary ---
Demographics + + + | Address | [address] | | | [place] [address] | + + + | Home Phone | | + + + | Preferred Language | Unknown | + + + | Marital Status | | + + + | Mormon Affiliation | CHR | + + + [...] [place], [place] | | | | | [address] | | + + + + + Care Team Providers + +------+ + | Care Diver Pumper Name | Role | Phone | + [...] | [address] | Dhaval Hernandez, | | | 2013 | Event | [address] | [address] | | | | | [facility] | [address] | | | | | Hospital Admitting | [place], [place] | | | | | Desk Located on the | [address] | | | | | 9th floor | [phone] | | | | | [place], [place] | | | | | | [address] | Jahaira Rich MD | | | | | | [address] | | | | | | [facility] | | | | | | [place] [address] | | | | | | [phone] | | | | | | | | +--------+ + + + + Anesthesia Record + + + + + | Procedure Name | Responsible | Anesthesia Start | Anesthesia Stop Time | | | Anesthesiologist | Time | | + + + + + | ATTEMPTED | Dhaval Hernandez MD | 01/08/13 1245 | 01/08/13 1823 [...] 1420; 01/08/13; 2353 | 01/08/13 1420 by Jahaira | 01/08/13 2353 by | | D [...] pulled by ; | 01/08/13 1444 by Jahaira | 01/11/13 1052 by | | D [...] as of this encounter [place] Notes Anesthesia Preprocedure Evaluation - Dhaval Hernandez MD - 01/08/2013 10:47 AM Malinda montemayor of this note might be different from the original. Gerard Burns [id number] Allergies Allergen Reactions Codeine Rash Rash all over arms NPO: Last Vitals: Preg Status/LMP: Patient Active Problem List Diagnoses Morbid obesity Depression BMI 70 and over, adult Nephrolithiasis DM (diabetes mellitus) Hypertension Hyperlipidemia Panniculitis Edema Thyroid cancer Past Surgical History Procedure Date Thyroid removal Gastric bypass attempted Current Medication List Name Sig Last Dose [...] A & ERGOCALCIFEROL(D2) ORAL Take by mouth. Lab Results Component Value Date RATE 69 12/26/2012 ATRIALRATE 69 12/26/2012 LA 186 12/26/2012 QRS 88 12/26/2012 QT 398 12/26/2012 QTC 426 12/26/2012 PAXIS 35 12/26/2012 RAXIS -54 12/26/2012 TAXIS 26 12/26/2012 EKGDX Value: Normal sinus rhythm Left anterior fascicular block Abnormal ECG "I have pers onally interpreted this report, either alone or with a trainee." Confirmed by VASYL TAN ([id number]) on 12/26/2012 10:49:35 PM 12/26/2012 Preoperative Adult Anesthesia Plan Last edited 01/08/13 1046 by Dhaval Hernandez MD ROS Pulmonary: Within Defined Limits except as noted below Dx of sleep apnea Uses BiPap/CPAP Cardiovascular: Within Defined Limits except as noted below Functional Capacity: Low no CAD hypertension well controlled GI/Hepatic: No reflux x 2 years Within Defined Limits except as noted below : Within Defined Limits except as noted below Endo: CBG 200 prior to hospital Within Defined Limits except as noted below Diabetes: type 2, < 150 Other endo: MEN:Parathyroid: Pituitary: Thyroid:+ hypothyroid Neurological: Numbness both feet from DM Within Defined limits except as noted below Current pain level: 0 MS: Within Defined Limits except as noted below Heme/Onc: Within Defined Limits except as noted below Malignancy: cancer, Location: Thyroid, Metastasis: Skin: Comments: Open areas x 2 to lower pannus Within Defined Limits except as noted below Physical Exam General: Patients general appearance: Alert, No distress and Cooperative Head & Neck/Airway: Neck ROM: full TM Distance:> 6cm Dentition: dental implants, bridges [...] normal Turgor: turgor normal Implants: None, Comments: States has been told previously no problems with intubation or airway management Anesthesia Plan Comments ASA NPO Status Monitors/Lines to be used Anesthetic Consideration Induction Anesthetic Technique Epidural; Post-Op Pain Plan Blood Products Interpretive Services Informed Consent Code status in [place] 01/08/2013 10:47 AM nesthesia Preprocedu re Evaluation - Dhaval Hernandez MD - 01/08/2013 10:47 AM PSTFormatting of this note might b e different from the original. Gerard Burns [id number] Allergies Allergen Reactions Codeine Rash Rash all over arms NPO: Last Vitals: Preg Status/LMP: Patient Active Problem List Diagnoses Morbid obesity Depression BMI 70 and over, adult Nephrolithiasis DM (diabetes mellitus) Hypertension Hyperlipidemia Panniculitis Edema Thyroid cancer Past Surgical History Procedure Date Thyroid removal Gastric bypass attempted Current Medication List Name Sig Last Dose [...] A & ERGOCALCIFEROL(D2) ORAL Take by mouth. Lab Results Component Value Date RATE 69 12/26/2012 ATRIALRATE 69 12/26/2012 LA 186 12/26/2012 QRS 88 12/26/2012 QT 398 12/26/2012 QTC 426 12/26/2012 PAXIS 35 12/26/2012 RAXIS -54 12/26/2012 TAXIS 26 12/26/2012 EKGDX Value: Normal sinus rhythm Left anterior fascicular block Abnormal ECG "I have pers onally interpreted this report, either alone or with a trainee." Confirmed by VASYL TAN ([id number]) on 12/26/2012 10:49:35 PM 12/26/2012 Preoperative Adult Anesthesia Plan Last edited 01/08/13 1046 by Dhaval Hernandez MD ROS Pulmonary: Within Defined Limits except as noted below Dx of sleep apnea Uses BiPap/CPAP Cardiovascular: Within Defined Limits except as noted below Functional Capacity: Low no CAD hypertension well controlled GI/Hepatic: No reflux x 2 years Within Defined Limits except as noted below : Within Defined Limits except as noted below Endo: CBG 200 prior to hospital Within Defined Limits except as noted below Diabetes: type 2, < 150 Other endo: MEN:Parathyroid: Pituitary: Thyroid:+ hypothyroid Neurological: Numbness both feet from DM Within Defined limits except as noted below Current pain level: 0 MS: Within Defined Limits except as noted below Heme/Onc: Within Defined Limits except as noted below Malignancy: cancer, Location: Thyroid, Metastasis: Skin: Comments: Open areas x 2 to lower pannus Within Defined Limits except as noted below Physical Exam General: Patients general appearance: Alert, No distress and Cooperative Head & Neck/Airway: Neck ROM: full TM Distance:> 6cm Dentition: dental implants, bridges [...] normal Turgor: turgor normal Implants: None, Comments: States has been told previously no problems with intubation or airway management Anesthesia Plan Comments ASA ASA 3 NPO Status NPO Status: NPO by protocol Monitors/Lines to be used Standard and CVP Anesthetic Consideration Induction intravenous induction Anesthetic Technique General; Post-Op Pain Plan Blood Products Interpretive Services Informed Consent PARQ discussed with: patient, Procedures, Alternatives, Risks, and Questions discussed and Risk/benefit of anesthesia plan and blood product discussed Code status in OR 01/08/2013 10:47 AM documented in this en counter Miscellaneous Notes Ane Central Venous Line - Jahaira Rich MD - 01/08/2013 2:57 PM PSTProcedure Information Central Venous Line Type Catheter:Triple lumen Location Performed: OR, Indications: Inadequate peripheral venous access and Assessment of intravascular volume Informed Consent: Included in anesthesia consent, Protective Barrier: Cap, Mask, Gown, Full-body drape, Hand scrub and Gloves Vein locater technique: Ultrasound Guidance Ultrasound image: Printed and placed in patient's chart Prep: ChloraPrep, Draped: Fully draped Anesthesia Method: General anesthesia, Insertion side: Right Insertion Site: Internal Jugular, Access device: 18g, angiocath Position confirmation: Ultrasound Catheter size: 7 Fr Catheter length: 15/16 cm Insertion distance: 16 cm Port flush: Saline All Ports Aspirated for Blood Line secured with: Suture Procedure Documentation Introducer Information Assessment Number of attempts: 1st Complications: None Attending physically present Attending: DHAVAL HERNANDEZ Performed by Resident JAHAIRA RICH rterial Line - Jahaira Nunez MD - 01/08/2013 2:56 PM PSTProcedure ART LINE Procedure Information Inserted: After Induction 4 minutes to perform. Type Catheter: Arrow kit Indications: Beat to beat blood pressure monitoring and Frequent lab draws Location Performed: OR Protective Barrier: Cap, Mask, Hand scrub and Sterile Gloves Draped: Partially draped Anesthesia Method: General anesthesia Insertion side: Right Insertion Site: Radial Access device: 20g Line secured by:Taped and Dressing Applied Assessment Number of attempts: 1st Complications: None Assessment: Catheter connected to pressure line and flushed, catheter manually flushed, Boubacar erated procedure well and Perfusion checked distal to catheter Attending physically present Attending name: DHAVAL HERNANDEZ Performed by Resident Name: JAHAIRA RICH ne airway standard - Jahaira Rich MD - 01/08/2013 2:55 PM PSTProcedure Reason for Intubation: For surgical procedure, Location Performed: [place] , Patient was preoxyg enated Mask Ventilation Grade 0 - Ventilation by mask not attempted Rapid Sequence Induction: Modified Intubation Blade type: Herrera , Blade size: 4, Atraumatic laryngoscopy: Atraumatic Laryngoscopy, In tubation adjuncts: Ramp , Laryngoscopic view: Grade I, Number of Attempts: 1, Positive for E tCO2: Yes, Breath sounds: Bilateral and equal ETT Ett Adult: Single-lumen cuffed ETT Size: 8 ETT secured with: adhesive tape Depth at Teet h: 24 cm Airway leak: No LMA Narrative Attending physically present Attending: DHAVAL HERNANDEZ Performed by Resident JAHAIRA RICH pidural Procedure - Yolis Evangelista MD - 01/08/2013 12:20 PM PSTPROCEDURE NAME Epidural or Caudal Information Epidural Type: Epidural Placement Block indication: Post-op pain management per surgeons request to facilitate recovery Location performed: Pre-Op The patient was identified, the site marked,, full PARQ done Adult or Pediatric: Adult Procedure Position: Sitting and Left lateral decubitus, Epidural approach: Paramedian, Monitors used: NIBP, SpO2 and EKG, Supplimental O2 Given, Prep: ChloraPrep Image: Not hilary ed or printed Technology Used: Ultrasound Needle Needle Type: Tuohy Needle Gauge: 17 Needle insertion depth 13 cm Catheter depth 20 cm 1s t attempt Parasthesia: Paresthesia noted: No Negative for blood Vertebral Interspace: T7-8 CSF: A spiration negative for CSF, Sensory Band:Side: bilateral, Tested: Temperature sensation to cold spray, Upper Level: T6, Lower Band:T10 NICOLE: saline Assessment test dose given, Negative test dose reaction See MAR for Drug and Dose Complications: None, Technical Difficulty: Easy Intended Analge marjorie: Satisfactory block in appropriate fashion Sensory Assessment: Decreased in area of bloc k Motor Assessment: Intact; Narrative Attending physically present Attending: JERALD MANLEYPerformed by Resident Resident: YOLIS ROCHE [facility] PreOp Note - Dhaval Hernandez MD - 01/08/2013 10:43 AM PST ROS Pulmonary: Within Defined Limits except as noted below Dx of sleep apnea Uses BiPap/CPAP Cardiovascular: Within Defined Limits except as noted below Functional Capacity: Low no CAD hypertension well controlled GI/Hepatic: No reflux x 2 years Within Defined Limits except as noted below : Within Defined Limits except as noted below Endo: CBG 200 prior to hospital Within Defined Limits except as noted below Diabetes: type 2, < 150 Other endo: MEN:Parathyroid: Pituitary: Thyroid:+ hypothyroid Neurological: Numbness both feet from DM Within Defined limits except as noted below Curre nt pain level: 0 MS: Within Defined Limits except as noted below Heme/Onc: Within Defined Limits except as noted below Malignancy: cancer, Location: Thyroid , Metastasis: Skin: Comments: Open areas x 2 to lower pannus Within Defined Limits except as noted below Physical Exam General: Patients general appearance: Alert, No distress and Cooperative Head & Neck/Airway: Neck ROM: full TM Distance:> 6cm Dentition: dental implants, bridges [...] abdominal tenderness Bowel Sounds: bowel sounds are leandro l Musculoskeletal: Findings: tone normal Neuro/Psych: alert Findings: Normal affect, Alert, oriented to person, place, time and No t remor Integument: Color: pink Texture: Skin texture - normal Turgor: turgor normal Implants: None, Comments: States has been told previously no problems with intubation or airway management [facility] PreOp Note - Eliz Fontaine ANP - 12/26/2012 2:19 PM PST ROS Pulmonary: Dx of sleep apnea Uses BiPap/CPAP Cardiovascular: Functional Capacity: Low hypertension well controlled GI/Hepatic: Within Defined Limits except as noted below : Within Defined Limits except as noted below Endo: Diabetes: type 2, < 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 Other endo: MEN:Parathyroid: Pituitary: Thyroid:+ hypothyroi d Neurological: Within Defined limits except as noted [...] abdominal tenderness Bowel Sounds: bowel sounds are leandro l Musculoskeletal: Findings: tone normal Neuro/Psych: alert Findings: Normal affect, Alert, oriented to person, place, time and No t remor Integument: Color: pink Texture: Skin texture - normal Turgor: turgor normal Implants: None, documented in this encounter Plan of Treatment [...] | | | 01/08/13 at 1519, Until Sun01/08/13 | | | | | | | at 2130 | | | | | | + +-------+ + +---+---+ +---+---+ | | | +---+---+ + +-------+ +-------+---+---+ | ePHEDrine injection | Given | 01/09/20 | 10 mg | | | | intravenous, INTRAPROCEDURE PRN, | | 13 3:37 | | | | | Starting 01/08/13 at 1422, | | PM PST | [...] | +---+---+ + +-------+ +--------+---+---+ | glycopyrrolate (akronal ODONNELL) | Given | 01/09/20 | 0.4 [...] | | | 01/08/13 at 1649, Until Sun01/08/13 | | | | | [...] 5:02 | | | | | Starting 01/08/13 at 1348, | anesthes | PM PST [...] | INTRAPROCEDURE PRN, Starting Sun | | | | | | | 01/08/13 at 1215, Until Sun01/08/13 | | | | | [...] | | | 01/08/13 at 1749, Until 01/08/13 | | | | | [...] | CONTINUOUS PRN, Starting Wed | | 13 6:19 | | | | | 01/08/13 at 1348, Until 01/08/13 | anesthes | PM PST | | [...] 5:00 | | | | | Starting 01/08/13 at 1700, | | PM PST | [...] 3:42 | | | | | Starting 01/08/13 at 1542, | | PM PST | | | | | Until 01/08/13 at 2130 | | | | | | + +-------+ +---------+---+---+ +---+---+ | | | +---+---+ documented in this encounter
--- OUTSIDE RECORDS SUMMARY | ~2020-08-05 | XMS | Encounter Summary ---
Demographics + + + | Address | [address] [facility] | | | [place] [address] | + + + | Home Phone | | + + + | Preferred Language | Unknown | + + + | Marital Status | | + + + | Amish Affiliation | 1013 | + + + | Race | White | + + + | Ethnic Group | Not or | + + + Author + + + | Author | [facility] | | | and [place] | + + + | Organization | [facility] | | | and [...] [place] | | | | | [address] | | + + + + + Care Team Providers + +------+ + | Care Radiographer Cardiac Catheterization Name | Role | Phone | + +------+ + | Moe Bella MD | PCP | | + +------+ + Encounter Details +--------+ + + + + | Date | Type | Department | Care Team | Description | +--------+ + + + + | 05/10/ | Hospital | [facility] | Chauncey Lee MD | Cervical spondylosis | | 2016 | Encounter | MED CTR XRAY [address] | [address] | with radiculopathy; | | | | [place] | [place] [address] | Morbid obesity, | | | | [place] [address] | [phone] | unspecified obesity | | | | [phone] | | type (HCC); | | | [...] | | | 12 | | | [address]3987 UNITS capsule | | | | | [...] mg by mouth | | 0 | 09/14/20 | | | (CRESTOR) 40 MG | [...] AND LATERAL. 05/10/2016 4:07 PM HISTORY: | [facility] | | preoperative clearance . COMPARISON: None available. | [facility] | | FINDINGS: Heart size within normal [...] + + | [address] | [address] | [place], [place] | [phone] | | [facility] | | [address] | | | - IMAGING | | [...]
--- OUTSIDE RECORDS SUMMARY | ~2020-08-05 | XMS | Encounter Summary ---
Demographics + + + | Address | [address] [facility] | | | [place] [address] | + + + | Home Phone [...] + | Tico Burns | ECON | [address] | | | | | [place], [place] | | | | | [address] | | + + + + + Care Team Providers + +------+ + | Care Hemodialysis Patient Care Specialist Name | Role | Phone | + +------+ + | Moe Bella MD | PCP | | + +------+ + Reason for Visit +--------+--------+ + | Reason | Onset | Comments | | | Date | | +--------+--------+ + | FMLA | 01/16/ | | | | 2012 | | +--------+--------+ + Encounter Details +--------+ + + + + | Date | Type | Department | Care Team | Description | +--------+ + + + + | 01/16/ | Telephone | [facility] | [place] [employer], | FMLA | | 2012 | | [place] [address] | [place]IO | | | | | [place] Mailcode: CH4S | | | | | | [facility] | | | | | | and Healing, | | | | | | Building [address], 6th | | | | | | Floor [place], [place] | | | | | | [address] | | | | | | [phone] | | | +--------+ + + + [...] Notes Telephone Encounter - Savanna Ho - 01/17/2013 11:59 AM PDTFaxed 01/17/13.Electronical ly signed by Savanna Ho at 01/17/2013 11:59 AM PDTTelephone Encounter - Corrina Zimmer - 01/16/2013 10:15 AM PDTPt calling to verify that work release from [email or web address] was received. He says that this form must be completed and returned by the 24 of January. Please call back at [phone] signed by Homero Zimmer at 01/16/2013 10:16 AM PDTdocumented in this encounter Plan of Treatment Not on filedocumented as of this encounter Visit Diagnoses Not on filedocumented in this encounter"
--- OUTSIDE RECORDS SUMMARY | ~2020-08-05 | XMS | Encounter Summary ---
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
--- OUTSIDE RECORDS SUMMARY | ~2020-08-05 | XMS | Encounter Summary ---
Demographics + + + | Address | [address] [facility] | | | [place] [address] | + + + | Home Phone [...] + | Tico Burns | ECON | [address] | | | | | [place], [place] | | | | | [address] | | + + + + + Care Team Providers + +------+ + | Care Executive Secretary Name | Role | Phone | [...] PPV | | | | | | [address] | | | | | | Loop Physician's | | | | | | [place], 4th Floor | | | | | | [place], [place] | | | | | | [address] | | | | | | [phone] | | | +--------+ + + + [...] | | + +---------+ + + | [facility] DEPARTMENT OF | | [...]
--- OUTSIDE RECORDS SUMMARY | ~2020-08-05 | XMS | Encounter Summary ---
Demographics + + + | Address | [address] [facility] | | | [place] [address] | + + + | Home Phone [...] + | Tico Burns | ECON | [address] | | | | | [place], [place] | | | | | [address] | | + + + + + Care Team Providers + +------+ + | Care Roll Sheeting Cutter Name | Role | Phone | [...] | | MIRELLA Wilkins | [address] | LAPAROSCOPIC, OPEN | | | | [facility] | [facility] | EXPLORATORY | | | | Hospital Admitting | [place], [place] | LAPAROTOMY, LYSIS OF | | | | Desk Located on the | [address] | ADHESIONS, SLEEVE | | | | 9th floor | [phone] | GASTRECTOMY | | | | [place], [place] | | | | | | [address] | | | +--------+---------+ + + + [...] narcotic pain medications, please call the clinic ([phone] ) by 2 pm on for any [...] during the day time hours by calling [facility] surgery office at [phone] - After hours, weekends and holidays, you may call the hospital welder operator at [phone] an d have the construction skills teacher Green Team for general surgery paged. [...] (or 3 results): Recent Labs Basename 01/11/1332601/10/1341101/09/13 040 NA 141 141 142 K 3.5 4.0 [...] ress. M Vivi Dong MD, PGY1 Anesthesia Visual C Developer Pager [phone] Florencia Ivy MD - 01/10/2013 7:49 AM PSTSURGERY INPATIENT PROGRESS NOTE Hospital Day:2 Author; FLORENCIA KATHLEEN MD, MIS/Bariatric Fellow, Pager [phone] Attending Physician: Jesus Perez MD Surgical Issues: [...] BLOCK PROGRESS NOTE 01/10/2013 Author: Stephanie Horan OTR OWNER OPERATOR POD# 2. Status post: 1. Attempted [...] and summary of old medical records (source: [employer]), as summarized in the body of the note. Stephanie Horan NP Adult Pain Service Pager [phone] Team Pager [phone] BILLING INFORMATION [facility] DEPARTMENT: [phone] Place of Service:- Inpatient Date of Service: 01/10/2013 CSN: [id number] Suggested Modifier: None Suggested CPT: 72990 - Daily mgmt epidural/subarachnoid drug administration Prolonged service: n/a Florencia Ivy MD - 01/09/2013 12:53 PM PSTSURALANNA INPATIENT PROGRESS NOTE Hospital Day:1 Author; FLORENCIA KATHLEEN MD, MIS/Bariatric Fellow, Pager [phone] Attending Physician: Jesus Perez MD Surgical Issues: [...] days. Epidural per APS. Kalina Adame AC OTR OWNER OPERATOR - 01/09/2013 11:29 AM PST Inpatient [...] DISPO - requires acute care CRISTIN HOBSON [facility] [address] [facility] [address] [place] [address] This assessment and plan was formulated both [...] studies reviewed. STEPHANIE HORAN NP BILLING INFORMATION [facility] DEPARTMENT: [id number] Place of Service:- Inpatient Date of Service: 01/09/2013 CSN: [id number] Suggested Modifier: None Suggested CPT: 46573 - Daily mgmt epidural/subarachnoid drug administration Prolonged service: n/a Hedy Villa - 2012 6:46 AM PSTMedical student progress note Overnight events/S: Mr. Burns is feeling well this morning. He did not get a lot of sle ep due to noise on the floor, but his pain (2/10, achy pain around incision site) is well co ntrolled and he is only using his DRILLER PORTABLE pump about once an hour. He has [...] oral meds and tolerating PO. Hedy Wood [id number] signed by CRISTIN Hobson at 01/10/2013 12:06 PM Berenice, Alfonso Wilson MD - 01/08/2013 9:57 PM PST SURGERY POST OP CHECK: Ken 01/08/2013 IDENTIFICATION: Gerard Burns is a 47y/o [...] RT Continue current care. Alfonso Sousa MD Night Monitor, PGY-1 Pager: [phone] [place] [phone] [address] [place] [phone] ungYahaira MD - 01/08/2013 3:37 PM PSTINPATIENT BRIEF [...] stiff wire, clear urine efflux Plan: D/C Qurioga catheter prior to discharge home Will not be able to check PVRs given patient's body habitus If pt voiding spontaneously with adequate UOP post-op, no further urology follow-up needed documented in this enc ounter H&P Notes Chelsey, Usman - 01/20/2013 8:51 AM PDTElectronically signed by Faculty Other at 3 8:51 AM PDTdocumented in this encounter Procedure Notes Florencia Kathleen MD - 01/09/2013 7:00 PM PSTAssociated Order(s): OPERATION RECORDDate: 01/08/2013 Attending Surgeon: Jesus Perez M.D. Certified Orthotist(s): Florencia Kathleen MD Preoperative Diagnosis(es): Super morbid [...] with 4-0 Biosyn and Indermil. Previously, a 19-Cuban round Delvin drain was placed to the [...] in stable condition. MD Jesus Yeh M.D. [facility] [id number] / [id number] / [id number] / Yahaira Stephen MD - 01/09/2013 12:27 [...] normal bladder with some debris. A 14 Cuban Quiroga catheter over a wire. Procedure: Following [...] draped in the usual sterile fashion. A 16-Cuban flexible Olympus cystoscope was advanced into the distal foreskin. The glans was visible, but I was unable to easily advance the cystoscope into the meatus. A 0.038 PTFE guidewire was easily advanced into the urethral meatus under direct visualization into the bladder. The cystoscope was removed. An attempt to pass a 16-Councill catheter over the wire was unsuccessful. An attempt to pass a 14-Cuban catheter over the wire, was also unsuccessful. The wire was removed and the cystoscope was replaced. A superstiff wire was then advanced into the meatus and bladder. The cystoscope was advanced over the wire into the patient's bladder. The above findings were noted. The cystoscope was removed. A 14-Cuban Councill catheter was then placed over the wire into the bladder with efflux of clear urine. The wire was removed. The wound was filled with 10 mL of sterile water. The catheter was placed to gravity drainage. The remainder of the procedure will be dictated by Dr. Perez. Estimated Blood Loss: None. Complications: None. Drains: 14-Cuban Quiroga catheter. Disposition: OR for General Surgery procedure Yahaira Doran M.D. / [id number] / [id number] / [id number] / iFlorencia jonas MD - 01/08/2013 6:01 PM PSTAssociated Order(s): [...] Other at 01/20/2013 8:51 AM PDTScan - Other, Faculty - 013 8:51 AM PDT can - Othe r, Faculty - 01/20/2013 8:51 AM PDT 8: 51 AM PDTScan - Other, Faculty - 01/18/2013 4:19 PM PDT valuation [...] obese, CL, improved, SL watch UO closely, quiroga, [...] hours for bladder control last clamped from 1529 to 1830 Last pain assessment/reassessment: epidural d/c pt now on po oxy tolerating well pt rates p ain 0-3 - no complaining of pain Psych/social issues: pleasant Last patient visit (i.e. Falls/Activity/Comfort/Environment/Toileting/Skin): quiroga, turns/r epositiones independently or with minimal assist, lift team involved too Anticipated or pending procedures: rzegorz - Phoenix Chandra RN - 01/10/2013 3:03 [...] for pannus supp ort LA DAVIES OT Grant Berman RN - 01/10/2013 5:29 AM PSTNursing Handoff Report Primary focus of stay: h/o super morbid obesity, s/p laparoscopic converted to open FLOYD and sleeve gastrectomy Pertinent physical findings: obese, CL, HTN on arrival on the unit, improved, IVF at 150, w atch UO closely, quiorga, midline glued incision, TI x 1, panus [...] team involved too Anticipated or pending procedures: Phoenix Muñiz am, RN - 01/09/2013 6:37 PM PSTNursing [...] or pending procedures: lan of Care - Hipolito La thomas, OT - 01/09/2013 11:42 AM PST Occupational [...] with functional mobility; 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 Able to complete upper body dressing and [...] Briefly educated in use of adaptive equipment (certified medical transcriptionist and toilet aide ) to increase ADL [...] ADLs with adaptive equipment training. LA DAVIES, OT lan of Joan jesus - Anika Da Silva PT - 01/09/2013 11:20 AM PSTFormatting of [...] Diabetes mellitus 2006 Thyroid disease 2010 Cancer 2011 Past Surgical History Procedure Date Thyroid removal Gastric bypass attempted Living Environment: Patient reports living in a single level home in [place] with his wif e and children. He states that he does not have steps to enter. His and friends and alma sorenson are going to be available for 24 hour assist following discharge. 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 He states he was not ambulating with [...] workaholic Communication: unimpaired Barriers: obesity Pain: 2 /10; patient happy with pain control at this [...] exceptions. Carrie Da Silva PT lan of Britni Hansen RD - 01/09/2013 9:25 AM PSTProblem: Nutrition [...] education prior to D/C as warranted. Following. Electrical Construction Project Manager Pager#[phone], LD Pgr #[phone] Comments: Nutr Dx: Food & nutr knowledge [...] (555 lb) on 06/10/12. Est Nutrition needs: 2497-6109 kcals/day (18-23 kcals/kg/day AdjBW); 151-188 gms pro/day (2 -2.5 gms pro/kg/day IBW) A M PSTPlan of Sabi Tillman - 01/09/2013 8:11 AM PSTProblem: Case Management Goals Goal: Discharge Needs Met Case Management Initial Assessment Reason for Admission: admitted for scheduled open sleeve gastrectomy Admitted From: Home Emergency Contact: Extended Emergency Contact Information Primary Emergency Contact: DARIELA BURNS Address: [address] [address] Relation: Spouse Past Medical History: Morbid obesity [278.01] (Morbid Obesity), OR CYSTOSCOPY,INSERT URETER AL STENT [33090] OR LAP SLEEVE GASTRECTOMY [04454] Lives With: spouse;child(larry), dependent Living Arrangement: house Functional Level Prior to Admission: 0-->independent Transportation Available: family Equipment Currently used at Home/DME Provider: CPAP Home Health/Infusion Agency: [facility] Insurance/Funding: @PAYMacromill@, Patient has Didi however this admission is not co cheyanne therefore is a private pay. Assessment: 47 yo male with bmi of 76.08 admitted for a sleeve gastrectomy; now PO day one. Case Management will need to follow closely for discharge needs though none evident at this point. Anticipated Discharge Needs: Anticipated Discharge Disposition: home. Sabi Maharaj RN 10 153 Assessment done by: Nomi Berman RN - [...] Zeb Hernandez RN - 01/08/2013 8:41 PM PSTMeets Phase I Discharge Criteria (Stable For Transfer): [...] urology Contact Name: Shilpi Burns- Contact Number: [phone] Family contacted: in to see pt in [...] +--------+ + + + | JOS SHARI CA POC | Routin | 01/08/2013 | | Results for this | | | e | 4:32 PM | | procedure are in the | | | | PST | | results section. | + +--------+ + + + | ABG-MARK ABL, POC | Routin | 01/08/2013 | [...] NICHOLAS | [address] | [place], [place] | | | CATHLEEN POINT OF CARE | [address] | [address] | | | TESTS | | | [...] + + | [facility] | [address] | [place] [address] | | | SERVICES, CORE | PARK [...] | + + + + + | [facility] | [address] | [place] [address] | | | SERVICES, CORE | TJ [...] [facility] | [address] | [place] [address] | | | SERVICES, CORE | PARK [...] 2.5 mg/dL | [facility] | | | KEENA | | | LABORATORY | | | [...] [facility] | [address] | [place] [address] | | | SERVICES, CORE | PARK [...] [facility] | [address] | [place] [address] | | | SERVICES, CORE | TJ [...] | [facility] | [address] | [place], [place] | | | BRIANNA CONNOLLY OF CARE | [facility] | [address] | | | TESTS | | | [...] (H) | 60 - 99 mg/dL | [facility] - | | | GLUCOSE, | [...] NICHOLAS | [address] | [place], [place] | | | CATHLEEN POINT OF CARE | [address] | [address] | | | TESTS | | | | + + + + + OPERATION RECORD (01/10/2013 8:03 AM PST) + + | Transcriptions | + + | Florencia Kathleen MD - 01/09/2013 7:00 PM PST Date: 01/08/2013 | | | | Attending Surgeon: Jesus Perez M.D. | | | | Certified Orthotist(s): Florencia Kathleen MD | | | | [...] Biosyn and Indermil. Previously, a | | 19-Cuban round Delvin drain was placed to the [...] Jesus Perez M.D. | | | | [place] / [place] | | [id number] / [id number] / [id number] / | | | | | + [...] [facility] | [address] | [place] [address] | | | SERVICES, CORE | PARK [...] | + + + + + | [facility] | [address] | [place] [address] | | | SERVICES, CORE | TJ [...] [facility] | [address] | [place] [address] | | | SERVICES, CORE | PARK [...] [facility] | [address] | [place] [address] | | | SERVICES, CORE | PARK [...] + + | [facility] | [address] | [place] [address] | | | DAVEY CRAWFORD | PARK [...] [facility] | [address] | [place], [place] | | | BRIANNA CONNOLLY OF CARE | [facility] | [address] | | | TESTS | | | [...] (H) | 60 - 99 mg/dL | [facility] - | | | GLUCOSE, | [...] NICHOLAS | [address] | [place], [place] | | | BRIANNA CONNOLLY OF [facility] | [address] | [address] | | | TESTS | | | [...] with | | some debris. A 14 Cuban Quiroga catheter over a wire. | | [...] draped in the usual sterile fashion. A 16-Cuban flexible | | Olympus cystoscope was advanced [...] | | An attempt to pass a 14-Cuban catheter over the wire, was also unsuccessful. | | The wire was removed and the cystoscope was replaced. A superstiff wire was | | then advanced into the meatus and bladder. The cystoscope was advanced | | over the wire into the patient's bladder. The above findings were noted. | | The cystoscope was removed. A 14-Cuban Councill catheter was then placed | | [...] | | | | Drains: | | 14-Cuban Quiroga catheter. | | | | Disposition: | | [place] for General Surgery procedure | | | | | | Yahaira Doran M.D. | | JS / HS | | [id number] / [id number] / [id number] / | | | | | + [...] NICHOLAS | [address] | [place], [place] | | | BRIANNA CONNOLLY OF DEREK | [facility] | [address] | | | TESTS | | | [...] | + + + + + | [facility] | [address] | [place] [address] | | | YVETTE, DAVEY | TJ [...] [facility] | [address] | [place] [address] | | | SERVICES, CORE | TJ [...] + + | [facility] | [address] | [place] [address] | | | SERVICES, CORE | PARK [...] | + + + + + | [facility] | [address] | [place] [address] | | | SERVICES, CORE | TJ [...] | + + + + + | [facility] | [address] | [place] [address] | | | DAVEY CRAWFORD | TJ [...] (H) | 60 - 99 mg/dL | [facility] - | | | GLUCOSE, | [...] + + + + | [facility] | [address] | [place], [place] | | | CATHLEEN POINT OF CARE | [address] | [address] | | | TESTS | | | [...] NICHOLAS | [address] | [place], [place] | | | BRIANNA CONNOLLY OF DEREK | [facility] | [address] | | | TESTS | | | | + + + + + X-RAY PORTABLE CHEST 1 VIEW (01/08/2013 7:12 PM PST) + + + + + + | Component | Value | Ref Range | Performed | Pathologist | | | | | At | Signature | + + + + + + | X-RAY | OR CHEST 1 VIEW, | | | | [...] | + + + + + | [facility] | [address] | [place] [address] | | | YVETTE, DAVEY | TJ [...] 2.5 mg/dL | [facility] | | | KEENA | | | LABORATORY | | | [...] [facility] | [address] | [place] [address] | | | SERVICES, CORE | PARK [...] [facility] | [address] | [place] [address] | | | SERVICES, CORE | TJ [...] [facility] | [address] | [place], [place] | | | BRIANNA CONNOLLY OF DEREK | [facility] | [address] | | | TESTS | | | | + + + + + ABG HAKEEM POC (01/08/2013 5:36 PM PST) + + + + + + | Component | Value | Ref Range | Performed | Pathologist | | | | | At | Signature | + + + + + + | [facility]SM[facility] | 293.0 | 275 - 295 | [facility] - | | | ARTERIAL, | | [...] [facility] | [address] | [place], [place] | | | BRIANNA CONNOLLY OF CARE | [facility] | [address] | | | TESTS | | | | + + + + + LACTATE (ART), POC SOR (01/08/2013 4:32 PM PST) + +-------+ + + + | Component | Value | Ref Range | Performed | Pathologist | | | | | At | Signature | + +-------+ + + + | LACTATE POC | 1.1 | 0.5 - 1.6 | [facility] - [...] EV[facility] | [address] | [place], [place] | | | CATHLEEN POINT OF CARE | [address] | [address] | | | TESTS | | | | + + + + + SODIUM (ART) POC SOR (01/08/2013 4:32 PM PST) [...] [facility] | [address] | [place], [place] | | | BRIANNA CONNOLLY OF DEREK | [facility] | [address] | | | TESTS | | | [...] | [facility] | [address] | [place], [place] | | | BRIANNA CONNOLLY OF CARE | [facility] | [address] | | | TESTS | | | [...] [facility] | [address] | [place], [place] | | | BRIANNA CONNOLLY OF DEREK | [facility] | [address] | | | TESTS | | | | + + + + + CHLORIDE (ART)MIKI (01/08/2013 4:32 PM PST) + +-------+ [...] NICHOLAS | [address] | [place], [place] | | | BRIANNA CONNOLLY OF DEREK | [facility] | [address] | | | TESTS | | | | + + + + + CALCIUM (ART) POC HAKEEM (01/08/2013 4:32 PM PST) + +-------+ + [...] [facility] | [address] | [place], [place] | | | BRIANNA CONNOLLY OF CARE | [facility] | [address] | | | TESTS | | | [...] NICHOLAS | [address] | [place], [place] | | | CATHLEEN POINT OF CARE | [address] | [address] | | | TESTS | | | [...] mmol/L | [facility] | | | [facility] | | | [facility] | | | [...] [facility] | [address] | [place], [place] | | | BRIANNA CONNOLLY OF DERE[place] | [address] | [address] | | | TESTS | | | [...] [facility] | | | | | | BRINANA CONNOLLY | | | | | | [...] + + + + + | [facility] | [address] | [place], [place] | | | BRIANNA CONNOLLY OF DEREK | [address] | [address] | | | TESTS | | | [...] [facility] | [address] | [place] [address] | | | SERVICES, | [address] [...] | + + + + + | [facility] | [address] | [place] [address] | | | SERVICES, | [address] [...] [facility] | [address] | [place], [place] | | | BRIANNA CONNOLLY OF CARE | [address] | [address] | | | TESTS | | | [...] Cervantes, | | | | | | Maggie/Surgical Pathology | | | | | | Fabio Wu | | | | | | Maggie Levy, | | | | | | Ph.D./PathologistT:01/13/ | | | | | | Clinical | | | | | | [...] A | | | | | | corporate sales representative section | | | | [...] + + + | [facility] | [address] | [place] [address] | | | PATHOLOGY | [address] | | | + + + + + documented in this encounter Visit Diagnoses + + | Diagnosis | + + | Morbid obesity (HCC) Morbid obesity | + + documented in this encounter
--- OUTSIDE RECORDS SUMMARY | ~2020-08-05 | XMS | Encounter Summary ---
Demographics + + + | Address | [address] | | | [place] [address] | + + + | Home Phone [...] + | Tico [address]ns | ECON | [address] | | | | | [place], [place] | | | | | [address] | | + + + + + Care Team Providers + +------+ + | Care Salt Plant Operator Name | Role | Phone | [...] 04/21/ | Abstract | [facility] | Jesus Perez, | Medical Records | | 2016 | | [place] [address] | [address] [facility] | Review | | | | [facility] | [facility] | | | | | for Health and | [place], [place] | | | | | [place] [address] | [address] | | | | | [place], [place] | [phone] | | | | | [address] | | | | | | [phone] | | | +--------+ + + + [...]
--- OUTSIDE RECORDS SUMMARY | ~2020-08-05 | XMS | Encounter Summary ---
Demographics + + + | Address | [address] | | | [place] [address] | + + + | Home Phone [...] | Author | [facility] [...] [place] | | | | | [address] | | + + + + + Care Team Providers + +------+ + | Care Cigarette Inspector Name | Role | Phone | + +------+ + | oMe Bella MD | PCP | | + +------+ + Reason for Visit +--------+--------+ + | Reason | Onset | Comments | | | Date | | +--------+--------+ + | Other | 06/07/ | Post op call | | | 2015 | | +--------+--------+ [...] | | [address] | [place] [address] | | | | | [place]apps | [phone] | | | | | [address] | | | | | | [phone] | | | +--------+ + + + [...] this encounter Miscellaneous Notes Telephone Encounter - Krystle Ronquillo RN - 06/08/2016 10:46 AM PDTProcedure: C4-5, C5-6, C6-7 Anterior Cervical Discectomy Fusion Date of Surgery: 06/01/16 1. How are you feeling-if pain where (legs/surgical site)? Dull achy pain in neck and acro ss back of shoulder 2. Weakness/Numbness (New onset)? No 3.Taking pain meds (Name/Dosage)? Oxycodone 10mg 1 tab every 6 hours 4.Loss of Bowel or Bladder (When/Chronic)? No Constipation? No 5.Ambulating (How often)? Ambulating at least every hour Difficulty swallowing SURGICAL ISSUES 1.Steri-strips/outer bandages intact. [place]/sutures that need to be removed no. Operati ve note reviewed yes. 2.Appearance of the site? No. Is there drainage from the site? no. 3.Do you have a fever? no. 4.Follow up appointments? 07/11 @ 1500. Reminded patient of xrays prior to appointment Staple/suture removal nurse visit? N/A 5.What could we have done to make your visit better? Nothing 6. Has preoperative pain improved? Left arm has an increased range of motion documented in this en counter Plan of Treatment Not on filedocumented as of this encounter Visit Diagnoses Not on filedocumented in this encounter"
--- OUTSIDE RECORDS SUMMARY | ~2020-08-05 | XMS | Encounter Summary ---
Demographics + + + | Address | [address] | | | [place] [address] | + + + | Home Phone [...] + | Tico Burns | ECON | [address] | | | | | [place], [place] | | | | | [address] | | + + + + + Care Team Providers + +------+ + | Care Director Of Maintenance Name | Role | Phone | + +------+ + | Moe Bella MD | PCP | | + +------+ + Encounter Details +--------+ + + + + | Date | Type | Department | Care Team | Description | +--------+ + + + + | 04/25/ | Janitorial Manager | Digestive Health | Violetta Byers, | Bariatric surgery | | 2012 | | Center at [facility] [address] | PRODUCT ACCOUNTANT [address] | status (Primary Dx) | | | | [address] | , [address] | | | | | for Health and | [place], [place] | | | | | Healing, Building [address] | [address] | | | | | [place], [place] | [phone] | | | | | [address] | | | | | | [phone] | | | +--------+ + + + [...] Notes Telephone Encounter - Savanna Ho - 04/25/2013 3:28 PM PDTSent to PCP as the patient does not have bariatric coverage, message left with RN there to see if they are willing to order labs under another current diagnosis to prevent malnutrition. elephone Encounter - Savanna Ho - 013 2:32 PM PDTPer Violetta, added external s/p gastric sleeve documented in this encounter Plan of Treatment Not on filedocumented as of this encounter Visit Diagnoses + + | Diagnosis | + + | Bariatric surgery status - Primary | + + documented in this encounter"
--- OUTSIDE RECORDS SUMMARY | ~2020-08-05 | XMS | Encounter Summary ---
Demographics + + + | Address | [address] [facility] [address] | | | [place] [address] | + + + | Home Phone [...] + | Tico Burns | ECON | [address] | | | | | [place], [place] | | | | | [address] | | + + + + + Care Team Providers + +------+ + | Care Straightening Press Operator Helper Name | Role | [...] | Required | Metabolism | obesity | [address] | | | | | (HCC) | [address], | Ave | | | | | Depression | [address] | [place], [place] | | | | | BMI 70 and | [place], [place] | [address] | | | | | over, adult | [address] | Phone: | | | | | ([facility]) | Phone: | [phone] | | | | | Procedures | [phone] | Fax: | | | | | CONSULT TO | Fax: | [phone] | | | | | ENDO | [phone] | | | | | | [address] | | | | | | | [address] | | | | | | | | | | | | | | [address] | | | +--------+ + + + + + Consultation (Routine) +--------+--------+ + + + + | Status | Reason | Specialty | Diagnoses / | Referred By | Referred To | | | | | Procedures | Contact | Contact | +--------+--------+ + + + + | Closed | | Pain | Diagnoses | Conser, | 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 Mender Psych | | | | Management | Morbid | Violetta M, OIL WELL LOGGER | [address] | | | | | obesity | [address] | | | | | ([facility]) | [address], | Center for | | | | | Depression | [address] | Health and | | | | | Procedures | [facility] [place] | Healing, | | | | | CONSULT TO | [address] | Building | | | | | PAIN CENTER | Phone: | 1,15th Floor | | | | | | [phone] | [place], [place] | | | | | | Fax: | [address] | | | | | | [phone] | Phone: | | | | | | | [phone] | | | | | | | Fax: | | | | | | | [phone] | +--------+--------+ + + + + Reason [...] | | | | (HCC) Type | [address] | | | | | II or | [address] | Center for | | | | | unspecified | [place], | Health and | | | | | type | [place] [address] | Healing, | | | | | diabetes | Phone: | Building 2 | | | | | mellitus | [phone] | [place], [place] | | | | | without | Fax: | [address] | | | | | mention of | [phone] | Phone: | | | | | complication | | [phone] | | | | | , not stated | | Fax: | | | | | as | | [phone] | | | | | uncontrolled | | | +--------+--------+ + + + + Encounter Details +--------+---------+ + + + | Date | Type | Department | Care Team | Description | +--------+---------+ + + + | 06/10/ | Office | Digestive Health | Violetta Byers, | Morbid obesity (HCC) | | 2012 | Visit | Center at [facility] [address] | OIL WELL LOGGER [address] | (Primary Dx); | | | | [address] | , [address] | Depression; BMI 70 | | | | for Health and | [place], [place] | and over, adult | | | | [place] [address] | [address] | (HCC); | | | | [place], [place] | [phone] | Nephrolithiasis; DM | | | | [address] | | (diabetes mellitus) | | | | [phone] | | (HCC); Hypertension; | | | | | | Hyperlipidemia; | | | | [...] Psychological Evaluation: If your referral is at [facility], pain management will call you in the next week to schedule. 4. Sleep study: Please undergo a sleep study and have notes/tests faxed to us. 5. Cardiology Consult: A cardiology provider needs to evaluate your cardiac function and le t us know if you can proceed with with bariatric surgery. 6. Please call [facility] ([phone]) and have them send you a urine [...] then schedule with the 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 Eyes/Ears/Nose/Throat: Denies visual [...] history of lower extremity edema. Denies CHF, [place], ischemic hea rt disease, DVT/PE, or pulmonary [...] 1. Previous gastric bypass attempt done in [place], the op-report is scanned into [email or web address] for review. Part of jejunum was removed [...] future. Pt already has plastic surgeon in [place] he is working with. 6. Nephrolithiasis, recurrent [...] Psychological Evaluation: If your referral is at [facility], pain management will call you in the next week to schedule. 4. Sleep study: Please undergo a sleep study and have notes/tests faxed to us. 5. Cardiology Consult: A cardiology provider needs to evaluate your cardiac function and le t us know if you can proceed with with bariatric surgery. 6. Please call [facility] ([phone]) and have them send you a urine [...] authorization then schedule with the surgeon. Violetta Byers [address] [address] Potential Contraindications to Bariatric Surgery Age over [...] other providers does not guarantee that the [facility] Bariatric Surger y program will deem [...] + | BMI 70 and over, adult ([facility]) Body Mass Index 70 and over, adult | + + | Nephrolithiasis Calculus of kidney | + + | DM (diabetes mellitus) ([facility]) Type II or unspecified type diabetes mellitus without | | mention of complication, not stated as uncontrolled | + + | Hypertension Unspecified essential hypertension | + + | Hyperlipidemia Other and unspecified hyperlipidemia | + + | Panniculitis Panniculitis, unspecified site | + + | Edema | + + documented in this encounter
--- OUTSIDE RECORDS SUMMARY | ~2020-08-05 | XMS | Encounter Summary ---
Demographics + + + | Address | [address] [facility] [address] | | | [place] [address] | + + + | Home Phone [...] [facility] | | [...] [place] | | | | | [address] | | + + + + + Care Team Providers + +------+ + | Care Raised Printer Name | Role | Phone | + [...] + | 08/22/ | Office | [facility] | Chauncey Lee MD | S/P cervical spinal | | 2017 | Visit | NEUROSURGERY [address] | fusion (Primary Dx) | | | | [address] | [place] [address] | | | | | [place] | [phone] | | | | | [address] | | | | | | [phone] | Ever [place]enson, | | | | | | PA-C [address] | | | | | | [address] [place] | | | | | | [place] [address] | | | | | | [phone] | | | | | | | [...] from the original. Ever Swenson PA-C [address] [facility], [address] [place] [address] FAX: NEUROSURGERY FOLLOW-UP CHIEF COMPLAINT: Chief Complaint [...] Muscle spasms. 90 tablet 3 ergocalciferol (ERGOCALCIFEROL) 22762 UNITS capsule Take 50,000 Units by mouth Once a w tribe. FLUoxetine (PROZAC) 20 mg capsule Take [...]
== END 2020-08-06 15:09 | disposition short-term general hospital (02) ==
LOC: ED 08:37
DX: E03.9 Hypothyroidism, unspecified (principal); G73.7 Myopathy in diseases classified elsewhere; E11.65 Type 2 diabetes mellitus with hyperglycemia; E66.01 Morbid (severe) obesity due to excess calories; I10 Essential (primary) hypertension; Z85.850 Personal history of malignant neoplasm of thyroid; Z88.5 Allergy status to narcotic agent; Z91.041 Radiographic dye allergy status; Z79.899 Other long term (current) drug therapy; Z79.4 Long term (current) use of insulin; Z79.82 Long term (current) use of aspirin
CPT/HCPCS: 80053; 82550; 83735; 84439; 84443; 84481; 85025; 99285; J1815